=== PATIENT | female | born 1950 | race Caucasian/White ===

== ENCOUNTER 2016-05-22 11:42 | Inpatient (IN) | payer OTHER ==
[2016-05-22 11:55] VITALS: BMI 39.2
--- NOTE | 2016-05-22 12:15 | PDOC ---
History of Present Illness - History of Present Illness Initial Comments: 05/22/16 13:47 The patient is a 65 year old female with a significant past medical history of anemia, asthma, hypertension, hyperlipidemia, diabetes, CHF, CAD, Afib (on Coumadin), mitral valve replacement, stents x2, COPD, CVA (multiple TIAs), who presents to the emergency department with facial numbness since 930am. The patietn states that she got up to check her INR and she felt numbness in the right side of her head and her forehead. The patient went to her cast iron drain pipe layer today but was unable to formulate sentences and explain her symptoms to the cast iron drain pipe layer. She also states that her right eyebrow feels droopy. She denies any headaches or dizziness. She denies weakness in her lower extremities bilaterally. She denies fevers or chills. <TrumanDeysi - Last Filed: 05/22/16 13:47> - General History Source: Patient, Old Records Exam Limitations: No Limitations <Ceci Sosa - Last Filed: 05/22/16 16:37> - General Chief Complaint: Headache Stated Complaint: Headache Time Seen by Provider: 05/22/16 11:49 NIH Stroke Scale - Last Known Well Date/Time & Onset Date Last Known Well: 05/22/16 Time Last Known Well: 09:30 - Initial Evaluation Level of consciousness: Alert Ask patient the month and their age: Answers both correctly Ask patient to open & close eyes; make fist and let go: Obeys both correctly Best gaze (horizontal eye movement): Normal Visual field testing: No visual field loss Facial paresis (Show teeth/raise eyebrows/close eyes tight): Normal symmetrical movement Motor Function: Left Arm: Normal Motor Function: Right Arm: Normal (extends arm 90 (or 45) degrees for 10 seconds without drift Motor Function: Left Leg: Normal (extends leg 30 degrees for 5 seconds without drift) Motor Function: Right Leg: Normal (extends leg 30 degrees for 5 seconds without drift) Limb Ataxia: No ataxia Sensory(Use pinprick test arms,legs,trunk,face/side to side): Mild to moderate decrease in sensation Best language (Describe picture, name items, read sentences): No Aphasia Dysarthria (read several words): Normal articulation Extinction and Inattention: No abnormality - Total Score NIH Stroke Scale Score: 1 <Ceci Sosa - Last Filed: 05/22/16 16:37> Past History <Deysi Laughlin - Last Filed: 05/22/16 13:47> - Past Medical History Anemia: Yes Asthma: Yes Cardiac Disorders: Yes (mitral valve replacement, stents x2,a-fib, CAD) CVA: Yes (MULTIPLE TIAs) COPD: Yes (Yes, O2 2L-3L) CHF: Yes Diabetes: Yes GI Disorders: Yes (ulcers, GI bleed, hemorrhoids, diverticulosis) Disorders: Yes (bladder mesh) HTN: Yes Hypercholesterolemia: Yes Suicide Attempt (Hx): No Seizures: Yes Thyroid Disease: No - Surgical History Appendectomy: Yes Cardiac Surgery: Yes (stentsx2, mitral valve replacement, CABG) Cholecystectomy: Yes - Immunization History Immunization Up to Date: Yes - Psycho/Social/Smoking Cessation Hx Anxiety: No Suicidal Ideation: No Smoking Status: No Smoking History: Former smoker Have you smoked in the past 12 months: No Number of Cigarettes Smoked Daily: 0 If you are a former smoker, when did you quit?: many years Information on smoking cessation initiated: No Hx Alcohol Use: No Drug/Substance Use Hx: No Substance Use Type: None Hx Substance Use Treatment: No <Ceci Sosa - Last Filed: 05/22/16 16:37> - Past Medical History Allergies/Adverse Reactions: Allergies Allergy/AdvReac Type Severity Reaction Status Date / Time lactose Allergy Mild Verified 05/22/16 11:55 Beta-Blockers Allergy Verified 05/22/16 11:55 (Beta-Adrenergic Bloc Iodinated Contrast Media - Allergy Verified 05/22/16 11:55 Oral and [IV Dye, Iodine Containing Contrast ] shellfish derived Allergy Verified 05/22/16 11:55 Home Medications: Ambulatory Orders Albuterol 0.083% Nebulizer Brigitte [Ventolin 0.083%] 1 neb NEB QID 02/01/16 Bupropion HBr [Aplenzin] 300 mg PO DAILY 02/01/16 Carbidopa/Levodopa [Carbidopa-Levodopa 25-100 Tab] 1 each PO AC 02/01/16 Cholecalciferol (Vitamin D3) [Vitamin D3] 5,000 unit PO WEEKLY 02/01/16 Citalopram Hydrobromide [Citalopram HBr] 10 mg PO HS 02/01/16 Digoxin [Lanoxin -] 0.125 mg PO DAILY 02/01/16 Docusate Sodium [Colace -] 100 mg PO TID 02/01/16 Enoxaparin Sodium [Lovenox] 100 mg SQ BID 02/01/16 Ferrous Sulfate [Feosol] 325 mg PO DAILY 02/01/16 Fluticasone Propionate [Flonase Allergy Relief] 2 inh NS BID 02/01/16 Insulin Detemir [Levemir Flextouch] 30 units SQ DAILY 02/01/16 Insulin Sliding Scale [Novolog Vial Sliding Scale -] 0 units SQ ACHS 02/01/16 Montelukast Na [Singulair -] 10 mg PO HS 02/01/16 [place]-3 Acid Ethyl Esters [Lovaza] 1 gm PO BID 02/01/16 Omeprazole 20 mg PO DAILY 02/01/16 Oxycodone HCl 5 mg PO BID PRN 02/01/16 Polyethylene Glycol 3350 [Miralax (For Daily Use) -] 17 gm PO DAILY 02/01/16 Potassium Chloride 40 meq PO DAILY 02/01/16 Pramipexole Di-HCl [Pramipexole Dihydrochloride] 0.75 mg PO DAILY 02/01/16 Pramipexole Di-HCl [Pramipexole Dihydrochloride] 1.5 mg PO HS 02/01/16 Ranolazine [Ranexa -] 500 mg PO BID 02/01/16 Sennosides [Senna] 2 tab PO HS 02/01/16 Sodium Chloride [Saline Nasal [place]] 1 ml NS Q6H PRN 02/01/16 Topiramate [Topiramate ER] 150 mg PO BID 02/01/16 Torsemide [Demadex] 40 mg PO DAILY 02/01/16 Tramadol HCl 50 mg PO Q6H PRN 02/01/16 Verapamil HCl [Verapamil ER] 240 mg PO DAILY 02/01/16 Warfarin Na [Coumadin] 12 mg PO HS 02/01/16 Review of Systems - Review of Systems Able to Perform ROS?: Yes Comments:: 05/22/16 13:48 GENERAL/CONSTITUTIONAL: No fever or chills. No weakness. HEAD, EYES, EARS, NOSE AND THROAT: No change in vision. No ear pain or discharge. No sore throat. CARDIOVASCULAR: No chest pain or shortness of breath. RESPIRATORY: No cough, wheezing, or hemoptysis. GASTROINTESTINAL: No nausea, vomiting, diarrhea or constipation. GENITOURINARY: No dysuria, frequency, or change in urination. MUSCULOSKELETAL: No joint or muscle swelling or pain. No neck or back pain. SKIN: No rash NEUROLOGIC: +Decreased sensation. No headache, vertigo, loss of consciousness, or change in strength/sensation. ENDOCRINE: No increased thirst. No abnormal weight change. HEMATOLOGIC/LYMPHATIC: No anemia, easy bleeding, or history of blood clots. ALLERGIC/IMMUNOLOGIC: No hives or skin allergy. <Deysi Laughlin - Last Filed: 05/22/16 13:47> *Physical Exam - Vital Signs Last Vital Signs Temp Pulse Resp BP Pulse Ox 98.6 F 65 18 141/52 100 05/22/16 11:45 05/22/16 11:45 05/22/16 11:45 05/22/16 11:45 05/22/16 11:45 - Physical Exam Comments: 05/22/16 13:48 GENERAL: Awake, alert, and fully oriented, in no acute distress HEAD: No signs of trauma EYES: PERRLA, EOMI, sclera anicteric, conjunctiva clear ENT: Auricles normal inspection, hearing grossly normal, nares patent, oropharynx clear without exudates. Moist mucosa NECK: Normal ROM, supple, no lymphadenopathy, JVD, or masses LUNGS: Breath sounds equal, clear to auscultation bilaterally. No wheezes, and no crackles HEART: Regular rate and rhythm, normal S1 and S2, no murmurs, rubs or gallops ABDOMEN: Soft, nontender, normoactive bowel sounds. No guarding, no rebound. No masses EXTREMITIES: Normal range of motion, no edema. No clubbing or cyanosis. No cords, erythema, or tenderness NEUROLOGICAL: +Decreased sensation in the right forehead and right maxilla. Normal speech. SKIN: Warm, Dry, normal turgor, no rashes or lesions noted. <Deysi Laughlin - Last Filed: 05/22/16 13:47> - Vital Signs Last Vital Signs Temp Pulse Resp BP Pulse Ox 98.6 F 65 18 141/52 100 05/22/16 11:45 05/22/16 11:45 05/22/16 11:45 05/22/16 11:45 05/22/16 11:45 <Ceci Sosa - Last Filed: 05/22/16 16:37> ED Treatment Course - LABORATORY CBC & Chemistry Diagram: 05/22/16 12:00 05/22/16 12:00 - ADDITIONAL ORDERS Additional order review: Laboratory Results 05/22/16 05/22/16 12:00 12:00 INR 1.25 H D Sodium 143 Potassium 4.0 Chloride 110 H Carbon Dioxide 26 Anion Gap 7 L BUN 22 H D Creatinine 1.2 H Creat Clearance w eGFR 45.23 Random Glucose 142 H D Calcium 8.9 Total Bilirubin 0.2 D AST 12 L D ALT 8 L D Alkaline Phosphatase 113 Creatine Kinase 46 Troponin I < 0.02 Total Protein 6.9 Albumin 3.3 L Triglycerides 117 Cholesterol 154 Total LDL Cholesterol 108 H HDL Cholesterol 34 L 05/22/16 12:00 RBC 4.52 MCV 84.6 MCHC 32.3 RDW 16.5 H MPV 9.5 Neutrophils % 70.4 Lymphocytes % 18.6 Monocytes % 7.9 Eosinophils % 2.2 Basophils % 0.9 - RADIOLOGY Radiograph Interpretation: 05/22/16 13:[address]: Reviewed and interpreted by radiologist Jorge Severino MD. Impression: No evidence of acute intracranial hemorrhage, edema, midline shift, mass effect, or skull fracture. No CT evidence of acute territorial infarction. <Deysi Laughlin - Last Filed: 05/22/16 13:47> - LABORATORY CBC & Chemistry Diagram: 05/22/16 12:00 05/22/16 12:00 - RADIOLOGY Radiology Studies Ordered: Category Date Time Status HEAD CT (STROKE) [CT] Stat CT Scan 05/22/16 12:04 Taken <Ceci Sosa - Last Filed: 05/22/16 16:37> Medical Decision Making - Medical Decision Making 05/22/16 13:16 65-year-old female with history of hypertension, diabetes, multiple CVAs and TIAs in the past, mitral valve replacement and atrial fibrillationon Coumadin presents to the emergency department with numbness and tingling to the right 4 head and droopiness of the right eyelid since 9:30 this morning. NIHSS is 1. Differential diagnosis includes but is not limited to: TIA, CVA, electrolyte abnormality, mass lesion, toxic/metabolic derangement, electrolyte abnormality. Plan: 1. Code lynch/stroke notification 2. CT head 3. EKG 4. Labs 5. Neurology consult 6. Observe and reevaluate Addendum: An IHSS is 1. I discussed the case with the neurologist on-call and have determined that the patient is not a TPA candidate. We'll continue the stroke workup and admit the patient for neuro checks, carotid Dopplers and MRI as an inpatient <Ceci Sosa - Last Filed: 05/22/16 16:37> *DC/Admit/Observation/Transfer - Attestations Scribe Attestion: 05/22/16 13:48 Documentation prepared by Deysi Laughlin, acting as medical biller for Ceci Sosa MD. <Deysi Laughlin - Last Filed: 05/22/16 13:47> - Discharge Dispostion Admit: Yes - Attestations Physician Attestion: 05/22/16 13:15 I, Dr. Ceci Sosa, attest that the scribes documentation that appears above has been prepared under my direction and personally reviewed by me in its entirety. I confirmed that the note above accurately reflects all work, treatment, procedures, and medical decision-making performed by me. <Ceci Sosa - Last Filed: 05/22/16 16:37> Diagnosis at time of Disposition: TIA (transient ischemic attack) - Discharge Dispostion Condition at time of disposition: Stable - Referrals Referrals: Jose España MD [Primary Care Provider] -
[2016-05-22 12:31] LABS: BASOPHIL 0.9 % (0-2.0); EOSINOPHIL 2.2 % (0-4.5); MCH 27.3 pg (25.7-33.7); MCHC 32.3 g/dl (32.0-36.0); MEAN CELL VOLUME 84.6 fl (80-96); MEAN PLT VOLUME 9.5 fl (7.5-11.1); NEUTROPHILS 70.4 % (42.8-82.8); PLATELET COUNT 234 K/MM3 (134-434); RDW 16.5 % (11.6-15.6); WHITE BLOOD COUNT 9.4 K/mm3 (4.0-10.0)
[2016-05-22 12:51] LABS: INR 1.25 (0.82-1.09); PROTHROMBIN TIME (PATIENT) 13.8 SEC (9.98-11.88)
[2016-05-22 12:53] LABS: ALBUMIN 3.3 g/dl (3.4-5.0); ANION GAP 7 (8-16); CALCIUM 8.9 mg/dL (8.5-10.1); CHOLESTEROL 154 mg/dL (50-200); CO2 26 mmol/L (21-32); CREATININE 1.2 mg/dL (0.55-1.02); GLUCOSE,RANDOM 142 mg/dL (74-106); SGOT/AST 12 U/L (15-37); SGPT/ALT 8 U/L (12-78); TROPONIN I < 0.02 ng/ml (0.00-0.05)
[2016-05-22 12:56] LABS: ALK PHOS 113 U/L (45-117); BILIRUBIN,TOTAL 0.2 mg/dL (0.2-1.0); LDL CHOLESTEROL (ONLY SJRH) 108 mg/dL (5-100); TOT PROT 6.9 g/dl (6.4-8.2)
--- NOTE | 2016-05-22 15:00 | CONSULT ---
Consult - text type - Consultation Consultation Note: Neurology The patient is a 65 year old female with a significant past medical history of anemia, asthma, hypertension, hyperlipidemia, diabetes, CHF, CAD, Afib (on Coumadin), mitral valve replacement, stents x2, COPD, CVA (multiple TIAs), who presents to the emergency department with facial numbness since 930am. The patient states that she got up to check her INR and she felt numbness in the right side of her head and her forehead. The patient went to her molder bench today but was unable to formulate sentences and explain her symptoms to the molder bench. She also states that her right eyebrow feels droopy. I spoke to ER and patient deficits were minimal with NIHSS of 1, believed risk of bleed outweight benefits for patient with minimal symptoms. Patient was out of 3 hour window and decision was to not give TPA. Patient seen by me in ER thereafter and stable though having some respiratory complaints. - Past Medical History Anemia: Yes Asthma: Yes Cardiac Disorders: Yes (mitral valve replacement, stents x2,a-fib, CAD) CVA: Yes (MULTIPLE TIAs) COPD: Yes (Yes, O2 2L-3L) CHF: Yes Diabetes: Yes GI Disorders: Yes (ulcers, GI bleed, hemorrhoids, diverticulosis) Disorders: Yes (bladder mesh) HTN: Yes Hypercholesterolemia: Yes Suicide Attempt (Hx): No Seizures: Yes Thyroid Disease: No - Surgical History Appendectomy: Yes Cardiac Surgery: Yes (stentsx2, mitral valve replacement, CABG) Cholecystectomy: Yes - Immunization History Immunization Up to Date: Yes - Psycho/Social/Smoking Cessation Hx Anxiety: No Suicidal Ideation: No Smoking Status: No Smoking History: Former smoker Have you smoked in the past 12 months: No Number of Cigarettes Smoked Daily: 0 If you are a former smoker, when did you quit?: many years Information on smoking cessation initiated: No Hx Alcohol Use: No Drug/Substance Use Hx: No Substance Use Type: None Hx Substance Use Treatment: No - Past Medical History Allergies/Adverse Reactions: Allergies Allergy/AdvReac Type Severity Reaction Status Date / Time lactose Allergy Mild Verified 05/22/16 11:55 Beta-Blockers Allergy Verified 05/22/16 11:55 (Beta-Adrenergic Bloc Iodinated Contrast Media - Allergy Verified 05/22/16 11:55 Oral and [IV Dye, Iodine Containing Contrast ] shellfish derived Allergy Verified 05/22/16 11:55 Home Medications: Ambulatory Orders Albuterol 0.083% Nebulizer Brigitte [Ventolin 0.083%] 1 neb NEB QID 02/01/16 Bupropion HBr [Aplenzin] 300 mg PO DAILY 02/01/16 Carbidopa/Levodopa [Carbidopa-Levodopa 25-100 Tab] 1 each PO AC 02/01/16 Cholecalciferol (Vitamin D3) [Vitamin D3] 5,000 unit PO WEEKLY 02/01/16 Citalopram Hydrobromide [Citalopram HBr] 10 mg PO HS 02/01/16 Digoxin [Lanoxin -] 0.125 mg PO DAILY 02/01/16 Docusate Sodium [Colace -] 100 mg PO TID 02/01/16 Enoxaparin Sodium [Lovenox] 100 mg SQ BID 02/01/16 Ferrous Sulfate [Feosol] 325 mg PO DAILY 02/01/16 Fluticasone Propionate [Flonase Allergy Relief] 2 inh NS BID 02/01/16 Insulin Detemir [Levemir Flextouch] 30 units SQ DAILY 02/01/16 Insulin Sliding Scale [Novolog Vial Sliding Scale -] 0 units SQ ACHS 02/01/16 Montelukast Na [Singulair -] 10 mg PO HS 02/01/16 [place]-3 Acid Ethyl Esters [Lovaza] 1 gm PO BID 02/01/16 Omeprazole 20 mg PO DAILY 02/01/16 Oxycodone HCl 5 mg PO BID PRN 02/01/16 Polyethylene Glycol 3350 [Miralax (For Daily Use) -] 17 gm PO DAILY 02/01/16 Potassium Chloride 40 meq PO DAILY 02/01/16 Pramipexole Di-HCl [Pramipexole Dihydrochloride] 0.75 mg PO DAILY 02/01/16 Pramipexole Di-HCl [Pramipexole Dihydrochloride] 1.5 mg PO HS 02/01/16 Ranolazine [Ranexa -] 500 mg PO BID 02/01/16 Sennosides [Senna] 2 tab PO HS 02/01/16 Sodium Chloride [Saline Nasal [place]] 1 ml NS Q6H PRN 02/01/16 Topiramate [Topiramate ER] 150 mg PO BID 02/01/16 Torsemide [Demadex] 40 mg PO DAILY 02/01/16 Tramadol HCl 50 mg PO Q6H PRN 02/01/16 Verapamil HCl [Verapamil ER] 240 mg PO DAILY 02/01/16 Warfarin Na [Coumadin] 12 mg PO HS 02/01/16 Review of Systems GENERAL/CONSTITUTIONAL: No fever or chills. No weakness. HEAD, EYES, EARS, NOSE AND THROAT: No change in vision. No ear pain or discharge. No sore throat. CARDIOVASCULAR: No chest pain or shortness of breath. RESPIRATORY: No cough, wheezing, or hemoptysis. GASTROINTESTINAL: No nausea, vomiting, diarrhea or constipation. GENITOURINARY: No dysuria, frequency, or change in urination. MUSCULOSKELETAL: No joint or muscle swelling or pain. No neck or back pain. SKIN: No rash NEUROLOGIC: +Decreased sensation. No headache, vertigo, loss of consciousness, or change in strength/sensation. ENDOCRINE: No increased thirst. No abnormal weight change. HEMATOLOGIC/LYMPHATIC: No anemia, easy bleeding, or history of blood clots. ALLERGIC/IMMUNOLOGIC: No hives or skin allergy. *Physical Exam Last Vital Signs Temp Pulse Resp BP Pulse Ox 98.6 F 65 18 141/52 100 05/22/16 11:45 05/22/16 11:45 05/22/16 11:45 05/22/16 11:45 05/22/16 11:45 GENERAL: Awake, alert, and fully oriented, in no acute distress HEAD: No signs of trauma EYES: PERRLA, EOMI, sclera anicteric, conjunctiva clear ENT: Auricles normal inspection, hearing grossly normal, nares patent, oropharynx clear without exudates. Moist mucosa NECK: Normal ROM, supple, no lymphadenopathy, JVD, or masses LUNGS: Breath sounds equal, clear to auscultation bilaterally. No wheezes, and no crackles HEART: Regular rate and rhythm, normal S1 and S2, no murmurs, rubs or gallops ABDOMEN: Soft, nontender, normoactive bowel sounds. No guarding, no rebound. No masses EXTREMITIES: Normal range of motion, no edema. No clubbing or cyanosis. No cords, erythema, or tenderness NEUROLOGICAL: +Decreased sensation in the right forehead and right maxilla. Normal speech. SKIN: Warm, Dry, normal turgor, no rashes or lesions noted. Laboratory Results 05/22/16 05/22/16 12:00 12:00 INR 1.25 H D Sodium 143 Potassium 4.0 Chloride 110 H Carbon Dioxide 26 Anion Gap 7 L BUN 22 H D Creatinine 1.2 H Creat Clearance w eGFR 45.23 Random Glucose 142 H D Calcium 8.9 Total Bilirubin 0.2 D AST 12 L D ALT 8 L D Alkaline Phosphatase 113 Creatine Kinase 46 Troponin I < 0.02 Total Protein 6.9 Albumin 3.3 L Triglycerides 117 Cholesterol 154 Total LDL Cholesterol 108 H HDL Cholesterol 34 L 05/22/16 12:00 RBC 4.52 MCV 84.6 MCHC 32.3 RDW 16.5 H MPV 9.5 Neutrophils % 70.4 Lymphocytes % 18.6 Monocytes % 7.9 Eosinophils % 2.2 Basophils % 0.9 - RADIOLOGY Radiograph Interpretation: HEAD CT: Impression: No evidence of acute intracranial hemorrhage, edema, midline shift, mass effect, or skull fracture. No CT evidence of acute territorial infarction. Plan: 65 year old female with a significant past medical history of anemia, asthma, hypertension, hyperlipidemia, diabetes, CHF, CAD, Afib (on Coumadin), mitral valve replacement, stents x2, COPD, CVA (multiple TIAs), who presents to the emergency department with facial numbness since 930am. The patient states that she got up to check her INR and she felt numbness in the right side of her head and her forehead. The patient went to her molder bench today but was unable to formulate sentences and explain her symptoms to the molder bench. She also states that her right eyebrow feels droopy. I spoke to ER and patient deficits were minimal with NIHSS of 1, believed risk of bleed outweight benefits for patient with minimal symptoms. Patient was out of 3 hour window and decision was to not give TPA. Patient seen by me in ER thereafter and stable though having some respiratory complaints. Admit for further evaluation. MRI brain recommended, carotid doppler, echo. INR check and goal for theraputic range, if heparin required this can be pursued but NO IV Bolus. Pt/OT, continue medical mgmt.
[2016-05-22] MEDS ORDERED: SODIUM CHLORIDE NASAL SPRAY 44 ML BOTTLE NS PRN (17:44)
[2016-05-22] MEDS ORDERED: FLUTICASONE PROP 0.05% 16 GM NASAL SPRAY NS ONE (17:51)
[2016-05-22] MEDS ORDERED: WARFARIN NA 10 MG TABLET (FP) PO SCH (18:00)
[2016-05-22] MEDS ORDERED: oxyCODONE HCL 5 MG TABLET ONE (19:02)
[2016-05-22] MEDS: oxyCODONE HCL 5 MG TABLET PO PRN (19:07)
[2016-05-22] MEDS: ENOXAPARIN NA (PORCINE) 100 MG/1 ML DISP.SYRIN SQ SCH ×2 (22:28→22:39)
[2016-05-22] MEDS ORDERED: WARFARIN NA 2 MG TABLET (UD) ONE (22:33)
[2016-05-22] MEDS ORDERED: WARFARIN NA 10 MG TABLET (FP) ONE (22:34)
[2016-05-22] MEDS: buPROPion HCL 75 MG TABLET PO SCH (22:37)
[2016-05-22] MEDS: MONTELUKAST NA 10 MG TABLET PO SCH (22:37)
[2016-05-22] MEDS: SENNOSIDES 8.6MG TABLET (FP) PO SCH (22:38)
[2016-05-22] MEDS: DOCUSATE SODIUM 100 MG CAPSULE (FP) PO SCH (22:38)
[2016-05-22] MEDS: RANOLAZINE E.R. 500 MG TABLET (FP) PO SCH (22:38)
[2016-05-22] MEDS: CARBIDOPA/LEVODOPA 25/100 TABLET (FP) PO SCH (22:38)
[2016-05-22] MEDS: WARFARIN NA 10 MG, WARFARIN NA 2 MG PO SCH (22:38)
[2016-05-22] MEDS: INSULIN DETEMIR 100 UNITS/ML MDV SQ SCH (22:39)
[2016-05-22] MEDS: INSULIN SLIDING SCALE (NOVOLOG) 1 VIAL SQ SCH (22:40)
[2016-05-22] MEDS ORDERED: TOPIRAMATE 25 MG TABLET (FP) PO ONE (23:45)
[2016-05-22] MEDS: PRAMIPEXOLE DIHYDROCHLORIDE 1.5 MG TABLET PO SCH (23:59)
[2016-05-22] MEDS: PREGABALIN 100 MG CAPSULE PO SCH (23:59)
[2016-05-23] MEDS: ALBUTEROL SO4 2.5/IPRATROPIUM 0.5 INH SOL 3 ML VIAL.NEB. NEB PRN ×2 (06:03→18:40)
[2016-05-23] MEDS: INSULIN SLIDING SCALE (NOVOLOG) 1 VIAL SQ SCH ×4 (06:14→22:23)
[2016-05-23] MEDS: CARBIDOPA/LEVODOPA 25/100 TABLET (FP) PO SCH ×3 (06:18→22:22)
--- NOTE | 2016-05-23 08:24 | HP ---
Admitting History and Physical - Admission History of Present Illness: 65 year old female with a significant past medical history of anemia, asthma, hypertension, hyperlipidemia, diabetes, CHF, CAD, Afib (on Coumadin), mitral valve replacement, stents x2, COPD, CVA (multiple TIAs), who presents to the emergency department with facial numbness since 930am yesterday The patient states that she got up to check her INR and she felt numbness in the right side of her head and her forehead. The patient went to her geodetic surveyor technologist but was unable to formulate sentences and explain her symptoms to the geodetic surveyor technologist. She also states that her right eyebrow feels droopy. She c/o headaches . She denies weakness in her lower extremities bilaterally. She denies fevers or chills. 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, Migraine, Other (light-headedness and dizziness) Cardiovascular: Yes: AFIB, CAD, CHF, HTN, Hyperlipdemia, Other (S/P [facility] mitral valve replacement) Pulmonary: Yes: Asthma, COPD, Sleep Apnea (on CPAP at night) Gastrointestinal: Yes: Constipation, Diverticulosis, GI Bleed, Hemorrhoids Heme/Onc: Yes: Anemia Musculoskeletal: Yes: Chronic low back pain, Other (Spinal stenosis) Rheumatology: Yes: Lupus, Other (APLAS (BOTH LUPUS AND APLS ARE QUESTIONABLE)) Endocrine: Yes: Diabetes Mellitus - Past Surgical History Past Surgical History: Yes: CABG, Cholecystectomy, Hysterectomy, Oopherectomy - Smoking History Smoking history: Former smoker Have you smoked in the past 12 months: No Aproximately how many cigarettes per day: 0 If you are a former smoker, when did you quit?: many years - Alcohol/Substance Use Hx Alcohol Use: No History of Substance Use: reports: None - Social History ADL: Independent Home Medications - Allergies Allergies/Adverse Reactions: Allergies Allergy/AdvReac Type Severity Reaction Status Date / Time lactose Allergy Mild Verified 05/22/16 11:55 Beta-Blockers Allergy Verified 05/22/16 11:55 (Beta-Adrenergic Bloc Iodinated Contrast Media - Allergy Verified 05/22/16 11:55 Oral and [IV Dye, Iodine Containing Contrast ] shellfish derived Allergy Verified 05/22/16 11:55 - Home Medications Home Medications: Ambulatory Orders Albuterol 0.083% Nebulizer Brigitte [Ventolin 0.083%] 1 neb NEB QID 02/01/16 Bupropion HBr [Aplenzin] 300 mg PO DAILY 02/01/16 Carbidopa/Levodopa [Carbidopa-Levodopa 25-100 Tab] 1 each PO AC 02/01/16 Cholecalciferol (Vitamin D3) [Vitamin D3] 5,000 unit PO WEEKLY 02/01/16 Citalopram Hydrobromide [Citalopram HBr] 10 mg PO HS 02/01/16 Digoxin [Lanoxin -] 0.125 mg PO DAILY 02/01/16 Docusate Sodium [Colace -] 100 mg PO TID 02/01/16 Enoxaparin Sodium [Lovenox] 100 mg SQ BID 02/01/16 Ferrous Sulfate [Feosol] 325 mg PO DAILY 02/01/16 Fluticasone Propionate [Flonase Allergy Relief] 2 inh NS BID 02/01/16 Insulin Detemir [Levemir Flextouch] 30 units SQ DAILY 02/01/16 Insulin Sliding Scale [Novolog Vial Sliding Scale -] 0 units SQ ACHS 02/01/16 Montelukast Na [Singulair -] 10 mg PO HS 02/01/16 [place]-3 Acid Ethyl Esters [Lovaza] 1 gm PO BID 02/01/16 Omeprazole 20 mg PO DAILY 02/01/16 Oxycodone HCl 5 mg PO BID PRN 02/01/16 Polyethylene Glycol 3350 [Miralax (For Daily Use) -] 17 gm PO DAILY 02/01/16 Potassium Chloride 40 meq PO DAILY 02/01/16 Pramipexole Di-HCl [Pramipexole Dihydrochloride] 0.75 mg PO DAILY 02/01/16 Pramipexole Di-HCl [Pramipexole Dihydrochloride] 1.5 mg PO HS 02/01/16 Ranolazine [Ranexa -] 500 mg PO BID 02/01/16 Sennosides [Senna] 2 tab PO HS 02/01/16 Sodium Chloride [Saline Nasal [place]] 1 ml NS Q6H PRN 02/01/16 Topiramate [Topiramate ER] 150 mg PO BID 02/01/16 Torsemide [Demadex] 40 mg PO DAILY 02/01/16 Tramadol HCl 50 mg PO Q6H PRN 02/01/16 Verapamil HCl [Verapamil ER] 240 mg PO DAILY 02/01/16 Warfarin Na [Coumadin] 12 mg PO HS 02/01/16 Family Disease History - Family Disease History Family Disease History: Diabetes: Grandparent, Mother, Heart Disease: Father, Other: Sister (Lupus) Review of Systems - Review of Systems Constitutional: denies: Fever, Lethargy Cardiovascular: reports: Chest Pain (intermittent seen by cardio as oupatient and had nuclear stress) Respiratory: reports: SOB on Exertion. denies: Orthopnea Gastrointestinal: denies: Abdominal Pain Genitourinary: denies: Burning Musculoskeletal: reports: Back Pain, Joint Pain Neurological: reports: Change in Speech, Confusion, Headache, Numbness Physical Examination Vital Signs: Vital Signs Temperature 98.2 F 05/23/16 06:00 Pulse Rate 53 L 05/23/16 06:00 Respiratory Rate 20 05/23/16 06:00 Blood Pressure 110/59 05/23/16 06:00 O2 Sat by Pulse Oximetry (%) 95 05/23/16 01:35 Cardiovascular: Yes: Murmur, S1, S2 Respiratory: Yes: Regular, CTA Bilaterally Gastrointestinal: Yes: Normal Bowel Sounds, Soft Neurological: Yes: Alert, Oriented, Paresthesia. No: Dysarthria, Facial Droop, Lethargy Imaging - Results Cat Scan: Report Reviewed Problem List - Problems (1) TIA (transient ischemic attack) Assessment/Plan: R/O CVA --R/O ANEURYSM MRI/MRA INR SUB-THERAPEUTIC ON LOVENOX Code(s): G45.9 - TRANSIENT CEREBRAL ISCHEMIC ATTACK, UNSPECIFIED (2) CHF (congestive heart failure) Assessment/Plan: CONTINUE WITH DIURETICS Code(s): I50.9 - HEART FAILURE, UNSPECIFIED (3) COPD (chronic obstructive pulmonary disease) Assessment/Plan: NEBS Code(s): J44.9 - CHRONIC OBSTRUCTIVE PULMONARY DISEASE, UNSPECIFIED (4) Diabetes Assessment/Plan: BGM Code(s): E11.9 - TYPE 2 DIABETES MELLITUS WITHOUT COMPLICATIONS Qualifiers: Diabetes mellitus type: type 2 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
[2016-05-23] MEDS ORDERED: PT OWN MED DRAWER 7, Y5N ONE ×2 (08:49→22:10)
[2016-05-23] MEDS: DIGOXIN 0.125 MG TABLET (FP) PO SCH (10:42)
[2016-05-23] MEDS: traMADol HCL 50 MG TABLET PO PRN (10:43)
[2016-05-23] MEDS: RANOLAZINE E.R. 500 MG TABLET (FP) PO SCH ×2 (10:43→22:22)
[2016-05-23] MEDS: ENOXAPARIN NA (PORCINE) 100 MG/1 ML DISP.SYRIN SQ SCH ×2 (10:44→22:20)
[2016-05-23] MEDS: CITALOPRAM HYDROBROMIDE 10 MG TABLET (FP) PO SCH (10:44)
[2016-05-23] MEDS: TORSEMIDE 20 MG TABLET (FP) PO SCH (10:44)
[2016-05-23] MEDS: PANTOPRAZOLE 40 MG TABLET (FP) PO SCH (10:44)
[2016-05-23] MEDS: buPROPion HCL 75 MG TABLET PO SCH ×2 (10:44→22:22)
[2016-05-23] MEDS: PREGABALIN 100 MG CAPSULE PO SCH ×2 (10:44→22:22)
[2016-05-23] MEDS: POTASSIUM CHLORIDE TABS 20 MEQ TABLET.ER (FP) PO SCH (10:44)
[2016-05-23] MEDS: FERROUS SO4 325 MG TABLET (FP) PO SCH (10:45)
[2016-05-23] MEDS: POLYETHYLENE GLYCOL 3350 119 GM BTL PO SCH (10:46)
--- NOTE | 2016-05-23 11:02 | EKG ---
Test Reason : Blood Pressure : / mmHG Vent. Rate : 064 BPM Atrial Rate : 064 BPM P-R Int : 170 ms QRS Dur : 090 ms QT Int : 386 ms P-R-T Axes : 027 046 -08 degrees QTc Int : 398 ms NORMAL SINUS RHYTHM RSR' OR QR PATTERN IN V1 SUGGESTS RIGHT VENTRICULAR CONDUCTION DELAY NONSPECIFIC T WAVE ABNORMALITY ABNORMAL ECG WHEN COMPARED WITH ECG OF 14-DEC-2015 11:44, NO SIGNIFICANT CHANGE WAS FOUND Confirmed by RIOS ALVARADO MD ([id number]) on 05/23/2016 11:02:31 AM Referred By: Confirmed By:RIOS ALVARADO MD
--- NOTE | 2016-05-23 13:11 | PN ---
Progress Note (short form) - Note Progress Note: Neurology The patient is a 65 year old female with a significant past medical history of anemia, asthma, hypertension, hyperlipidemia, diabetes, CHF, CAD, Afib (on Coumadin), mitral valve replacement, stents x2, COPD, CVA (multiple TIAs), who presents to the emergency department with facial numbness since 930am. The patient states that she got up to check her INR and she felt numbness in the right side of her head and her forehead. NIHSS of 1, believed risk of bleed outweight benefits for patient with minimal symptoms. Patient was out of 3 hour window and decision was to not give TPA. MRI completed overnight and no acute changes with old R parietal and L occipital hemoragic lacune. Active Medications Acetaminophen (Tylenol -) 650 mg PO Q6H PRN PRN Reason: FEVER OR PAIN Albuterol/Ipratropium (Duoneb -) 1 amp NEB Q6H PRN PRN Reason: SHORTNESS OF BREATH Last Admin: 05/23/16 06:03 Dose: 1 amp Bupropion HCl (Wellbutrin -) 75 mg PO BID [facility] Last Admin: 05/23/16 10:44 Dose: 75 mg Carbidopa/Levodopa (Sinemet 25/100 -) 1 each PO TID [facility] Last Admin: 05/23/16 06:18 Dose: 1 each Citalopram Hydrobromide (Celexa -) 10 mg PO DAILY [facility] Last Admin: 05/23/16 10:44 Dose: 10 mg Digoxin (Lanoxin -) 0.125 mg PO DAILY [facility] Last Admin: 05/23/16 10:42 Dose: Not Given Docusate Sodium (Colace -) 300 mg PO HS [facility] Last Admin: 05/22/16 22:38 Dose: 300 mg Enoxaparin Sodium (Lovenox -) 100 mg SQ BID [facility] Last Admin: 05/23/16 10:44 Dose: 100 mg Ferrous Sulfate (Feosol -) 325 mg PO DAILY [facility] Last Admin: 05/23/16 10:45 Dose: 325 mg Insulin Aspart (Novolog Vial Sliding Scale -) 1 vial SQ [facility] PRN Reason: Protocol Last Admin: 05/23/16 10:59 Dose: Not Given Insulin Detemir (Levemir Vial) 30 units SQ [facility] Last Admin: 05/22/16 22:39 Dose: 30 units Montelukast Sodium (Singulair -) 10 mg PO HS [facility] Last Admin: 05/22/16 22:37 Dose: 10 mg Oxycodone HCl (Roxicodone -) 5 mg PO Q6H PRN PRN Reason: PAIN Last Admin: 05/22/16 19:07 Dose: 5 mg Pantoprazole Sodium (Protonix -) 40 mg PO DAILY [facility] Last Admin: 05/23/16 10:44 Dose: 40 mg Polyethylene Glycol (Miralax (For Daily Use) -) 17 gm PO DAILY [facility] Last Admin: 05/23/16 10:46 Dose: 17 grams Potassium Chloride (K-Dur -) 40 meq PO DAILY [facility] Last Admin: 05/23/16 10:44 Dose: 40 meq Pramipexole Dihydrochloride (Mirapex -) 1.5 mg PO HS [facility] Last Admin: 05/22/16 23:59 Dose: 1.5 mg Pregabalin (Lyrica -) 100 mg PO BID [facility] Last Admin: 05/23/16 10:44 Dose: 100 mg Ranolazine (Ranexa -) 500 mg PO BID [facility] Last Admin: 05/23/16 10:43 Dose: 500 mg Senna (Senna -) 1 tab PO HS [facility] Last Admin: 05/22/16 22:38 Dose: 1 tab Sodium Chloride ([place] Nasal [place] -) 2 spray NS BID PRN PRN Reason: NASAL CONGESTION Topiramate (Topamax -) 25 mg PO DAILY [facility] Torsemide (Demadex -) 40 mg PO DAILY [facility] Last Admin: 05/23/16 10:44 Dose: 40 mg Tramadol HCl (Ultram -) 50 mg PO Q6H PRN PRN Reason: PAIN Last Admin: 05/23/16 10:43 Dose: 50 mg Verapamil HCl (Calan Sr -) 240 mg PO DAILY [facility] Warfarin Sodium 10 mg/ (Warfarin Sodium 2 mg) 12 mg PO DAILY@1800 [facility] Last Admin: 05/22/16 22:38 Dose: 12 mg *Physical Exam Vital Signs Temperature 98.9 F 05/23/16 10:41 Pulse Rate 57 L 05/23/16 10:42 Respiratory Rate 18 05/23/16 10:41 Blood Pressure 129/45 05/23/16 10:41 O2 Sat by Pulse Oximetry (%) 95 05/23/16 01:35 GENERAL: Awake, alert, and fully oriented, in no acute distress HEAD: No signs of trauma EYES: PERRLA, EOMI, sclera anicteric, conjunctiva clear ENT: Auricles normal inspection, hearing grossly normal, nares patent, oropharynx clear without exudates. Moist mucosa NECK: Normal ROM, supple, no lymphadenopathy, JVD, or masses LUNGS: Breath sounds equal, clear to auscultation bilaterally. No wheezes, and no crackles HEART: Regular rate and rhythm, normal S1 and S2, no murmurs, rubs or gallops ABDOMEN: Soft, nontender, normoactive bowel sounds. No guarding, no rebound. No masses EXTREMITIES: Normal range of motion, no edema. No clubbing or cyanosis. No cords, erythema, or tenderness NEUROLOGICAL: +Decreased sensation in the right forehead and right maxilla. Normal speech. SKIN: Warm, Dry, normal turgor, no rashes or lesions noted. Laboratory Results 05/22/16 05/22/16 12:00 12:00 INR 1.25 H D Sodium 143 Potassium 4.0 Chloride 110 H Carbon Dioxide 26 Anion Gap 7 L BUN 22 H D Creatinine 1.2 H Creat Clearance w eGFR 45.23 Random Glucose 142 H D Calcium 8.9 Total Bilirubin 0.2 D AST 12 L D ALT 8 L D Alkaline Phosphatase 113 Creatine Kinase 46 Troponin I < 0.02 Total Protein 6.9 Albumin 3.3 L Triglycerides 117 Cholesterol 154 Total LDL Cholesterol 108 H HDL Cholesterol 34 L 05/22/16 12:00 RBC 4.52 MCV 84.6 MCHC 32.3 RDW 16.5 H MPV 9.5 Neutrophils % 70.4 Lymphocytes % 18.6 Monocytes % 7.9 Eosinophils % 2.2 Basophils % 0.9 - RADIOLOGY Radiograph Interpretation: HEAD CT: Impression: No evidence of acute intracranial hemorrhage, edema, midline shift, mass effect, or skull fracture. No CT evidence of acute territorial infarction. MRI brain without acute changes Plan: 65 year old female with a significant past medical history of anemia, asthma, hypertension, hyperlipidemia, diabetes, CHF, CAD, Afib (on Coumadin), mitral valve replacement, stents x2, COPD, CVA (multiple TIAs), who presents to the emergency department with facial numbness since 930am. The patient states that she got up to check her INR and she felt numbness in the right side of her head and her forehead. NIHSS of 1, believed risk of bleed outweight benefits for patient with minimal symptoms. Patient was out of 3 hour window and decision was to not give TPA. MRI completed overnight and no acute changes with old R parietal and L occipital hemoragic lacune. INR check and goal for theraputic range, if heparin required this can be pursued but NO IV Bolus. Pt/OT, continue medical mgmt. Patient well appearing today with occasional tingling but no focal deficits.
[2016-05-23] MEDS: VERAPAMIL HCL 240 MG E.R. TABLET (FP) PO SCH (14:03)
[2016-05-23] MEDS: TOPIRAMATE 25 MG TABLET (FP) PO SCH (14:03)
[2016-05-23] MEDS ORDERED: WARFARIN NA 2 MG TABLET (UD) ONE (18:55)
[2016-05-23] MEDS ORDERED: WARFARIN NA 10 MG TABLET (FP) ONE (18:55)
[2016-05-23] MEDS: WARFARIN NA 10 MG, WARFARIN NA 2 MG PO SCH (18:56)
[2016-05-23 19:25] LABS: INR 1.47 (0.82-1.09); PROTHROMBIN TIME (PATIENT) 16.3 SEC (9.98-11.88)
[2016-05-23] MEDS: INSULIN DETEMIR 100 UNITS/ML MDV SQ SCH (22:20)
[2016-05-23] MEDS: MONTELUKAST NA 10 MG TABLET PO SCH (22:22)
[2016-05-23] MEDS: SENNOSIDES 8.6MG TABLET (FP) PO SCH (22:22)
[2016-05-23] MEDS: PRAMIPEXOLE DIHYDROCHLORIDE 1.5 MG TABLET PO SCH (22:22)
[2016-05-23] MEDS: DOCUSATE SODIUM 100 MG CAPSULE (FP) PO SCH (22:22)
[2016-05-24] MEDS: ALBUTEROL SO4 2.5/IPRATROPIUM 0.5 INH SOL 3 ML VIAL.NEB. NEB PRN ×3 (03:05→22:55)
[2016-05-24] MEDS: oxyCODONE HCL 5 MG TABLET PO PRN (06:47)
[2016-05-24] MEDS: CARBIDOPA/LEVODOPA 25/100 TABLET (FP) PO SCH ×3 (06:47→22:30)
[2016-05-24 09:06] LABS: INR 1.72 (0.82-1.09); PROTHROMBIN TIME (PATIENT) 19.1 SEC (9.98-11.88)
--- NOTE | 2016-05-24 09:15 | PN ---
Progress Note, Physician History of Present Illness: numbness of head - Current Medication List Current Medications: Active Medications Acetaminophen (Tylenol -) 650 mg PO Q6H PRN PRN Reason: FEVER OR PAIN Albuterol/Ipratropium (Duoneb -) 1 amp NEB Q6H PRN PRN Reason: SHORTNESS OF BREATH Last Admin: 05/24/16 03:05 Dose: 1 amp Bupropion HCl (Wellbutrin -) 75 mg PO BID [facility] Last Admin: 05/23/16 22:22 Dose: 75 mg Carbidopa/Levodopa (Sinemet 25/100 -) 1 each PO TID [facility] Last Admin: 05/24/16 06:47 Dose: 1 each Citalopram Hydrobromide (Celexa -) 10 mg PO DAILY [facility] Last Admin: 05/23/16 10:44 Dose: 10 mg Digoxin (Lanoxin -) 0.125 mg PO DAILY [facility] Last Admin: 05/23/16 10:42 Dose: Not Given Docusate Sodium (Colace -) 300 mg PO [facility] Last Admin: 05/23/16 22:22 Dose: 300 mg Enoxaparin Sodium (Lovenox -) 100 mg SQ BID [facility] Last Admin: 05/23/16 22:20 Dose: 100 mg Ferrous Sulfate (Feosol -) 325 mg PO DAILY [facility] Last Admin: 05/23/16 10:45 Dose: 325 mg Insulin Aspart (Novolog Vial Sliding Scale -) 1 vial SQ [facility] PRN Reason: Protocol Last Admin: 05/23/16 22:23 Dose: Not Given Insulin Detemir (Levemir Vial) 30 units SQ [facility] Last Admin: 05/23/16 22:20 Dose: 30 units Montelukast Sodium (Singulair -) 10 mg PO [facility] Last Admin: 05/23/16 22:22 Dose: 10 mg Oxycodone HCl (Roxicodone -) 5 mg PO Q6H PRN PRN Reason: PAIN Last Admin: 05/24/16 06:47 Dose: 5 mg Pantoprazole Sodium (Protonix -) 40 mg PO DAILY [facility] Last Admin: 05/23/16 10:44 Dose: 40 mg Polyethylene Glycol (Miralax (For Daily Use) -) 17 gm PO DAILY [facility] Last Admin: 05/23/16 10:46 Dose: 17 grams Potassium Chloride (K-Dur -) 40 meq PO DAILY [facility] Last Admin: 05/23/16 10:44 Dose: 40 meq Pramipexole Dihydrochloride (Mirapex -) 1.5 mg PO HS [facility] Last Admin: 05/23/16 22:22 Dose: 1.5 mg Pregabalin (Lyrica -) 100 mg PO BID [facility] Last Admin: 05/23/16 22:22 Dose: 100 mg Ranolazine (Ranexa -) 500 mg PO BID [facility] Last Admin: 05/23/16 22:22 Dose: 500 mg Senna (Senna -) 1 tab PO HS [facility] Last Admin: 05/23/16 22:22 Dose: 1 tab Sodium Chloride ([place] Nasal [place] -) 2 spray NS BID PRN PRN Reason: NASAL CONGESTION Topiramate (Topamax -) 25 mg PO DAILY [facility] Last Admin: 05/23/16 14:03 Dose: 25 mg Torsemide (Demadex -) 40 mg PO DAILY [facility] Last Admin: 05/23/16 10:44 Dose: 40 mg Tramadol HCl (Ultram -) 50 mg PO Q6H PRN PRN Reason: PAIN Last Admin: 05/23/16 10:43 Dose: 50 mg Verapamil HCl (Calan Sr -) 240 mg PO DAILY [facility] Last Admin: 05/23/16 14:03 Dose: 240 mg Warfarin Sodium 10 mg/ (Warfarin Sodium 2 mg) 12 mg PO DAILY@1800 [facility] Last Admin: 05/23/16 18:56 Dose: 12 mg - Objective Vital Signs: Vital Signs Temperature 98.2 F 05/24/16 06:00 Pulse Rate 57 L 05/24/16 06:00 Respiratory Rate 20 05/24/16 06:00 Blood Pressure 136/60 05/24/16 06:00 O2 Sat by Pulse Oximetry (%) 95 05/23/16 01:35 Cardiovascular: Yes: Murmur, S1, S2 Respiratory: Yes: Regular, CTA Bilaterally Gastrointestinal: Yes: Normal Bowel Sounds, Soft Labs: INR, PTT INR 1.72 (0.82-1.09) H 05/24/16 07:40 Problem List - Problems (1) TIA (transient ischemic attack) Assessment/Plan: R/O CVA --R/O ANEURYSM MRI/MRA--nNAD INR SUB-THERAPEUTIC ON LOVENOX TO [facility] Code(s): G45.9 - TRANSIENT CEREBRAL ISCHEMIC ATTACK, UNSPECIFIED (2) CHF (congestive heart failure) Assessment/Plan: CONTINUE WITH DIURETICS Code(s): I50.9 - HEART FAILURE, UNSPECIFIED (3) COPD (chronic obstructive pulmonary disease) Assessment/Plan: NEBS Code(s): J44.9 - CHRONIC OBSTRUCTIVE PULMONARY DISEASE, UNSPECIFIED (4) Diabetes Assessment/Plan: BGM Code(s): E11.9 - TYPE 2 DIABETES MELLITUS WITHOUT COMPLICATIONS Qualifiers: Diabetes mellitus type: type 2 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
[2016-05-24] MEDS ORDERED: PT OWN MED DRAWER 7, Y5N ONE (09:18)
[2016-05-24] MEDS: VERAPAMIL HCL 240 MG E.R. TABLET (FP) PO SCH (09:43)
[2016-05-24] MEDS: CITALOPRAM HYDROBROMIDE 10 MG TABLET (FP) PO SCH (09:44)
[2016-05-24] MEDS: TORSEMIDE 20 MG TABLET (FP) PO SCH (09:44)
[2016-05-24] MEDS: POTASSIUM CHLORIDE TABS 20 MEQ TABLET.ER (FP) PO SCH (09:45)
[2016-05-24] MEDS: FERROUS SO4 325 MG TABLET (FP) PO SCH (09:45)
[2016-05-24] MEDS: DIGOXIN 0.125 MG TABLET (FP) PO SCH (09:46)
[2016-05-24] MEDS: ENOXAPARIN NA (PORCINE) 100 MG/1 ML DISP.SYRIN SQ SCH ×2 (09:46→22:29)
[2016-05-24] MEDS: PANTOPRAZOLE 40 MG TABLET (FP) PO SCH (09:47)
[2016-05-24] MEDS: PREGABALIN 100 MG CAPSULE PO SCH ×2 (09:47→22:30)
[2016-05-24] MEDS: buPROPion HCL 75 MG TABLET PO SCH ×2 (09:48→22:30)
[2016-05-24] MEDS: RANOLAZINE E.R. 500 MG TABLET (FP) PO SCH ×2 (09:48→22:30)
[2016-05-24] MEDS: TOPIRAMATE 25 MG TABLET (FP) PO SCH (09:50)
[2016-05-24] MEDS: POLYETHYLENE GLYCOL 3350 119 GM BTL PO SCH (09:52)
--- NOTE | 2016-05-24 11:18 | PN ---
Progress Note (short form) - Note Progress Note: Neurology The patient is a 65 year old female with a significant past medical history of anemia, asthma, hypertension, hyperlipidemia, diabetes, CHF, CAD, Afib (on Coumadin), mitral valve replacement, stents x2, COPD, CVA (multiple TIAs), who presents to the emergency department with facial numbness since 930am. The patient states that she got up to check her INR and she felt numbness in the right side of her head and her forehead. NIHSS of 1, believed risk of bleed outweight benefits for patient with minimal symptoms. Patient was out of 3 hour window and decision was to not give TPA. MRI completed and no acute changes with old R parietal and L occipital hemoragic lacune. INR subtheraputic and awaiting theraputic level. Active Medications Acetaminophen (Tylenol -) 650 mg PO Q6H PRN PRN Reason: FEVER OR PAIN Albuterol/Ipratropium (Duoneb -) 1 amp NEB Q6H PRN PRN Reason: SHORTNESS OF BREATH Last Admin: 05/23/16 06:03 Dose: 1 amp Bupropion HCl (Wellbutrin -) 75 mg PO BID [facility] Last Admin: 05/23/16 10:44 Dose: 75 mg Carbidopa/Levodopa (Sinemet 25/100 -) 1 each PO TID [facility] Last Admin: 05/23/16 06:18 Dose: 1 each Citalopram Hydrobromide (Celexa -) 10 mg PO DAILY [facility] Last Admin: 05/23/16 10:44 Dose: 10 mg Digoxin (Lanoxin -) 0.125 mg PO DAILY [facility] Last Admin: 05/23/16 10:42 Dose: Not Given Docusate Sodium (Colace -) 300 mg PO HS [facility] Last Admin: 05/22/16 22:38 Dose: 300 mg Enoxaparin Sodium (Lovenox -) 100 mg SQ BID [facility] Last Admin: 05/23/16 10:44 Dose: 100 mg Ferrous Sulfate (Feosol -) 325 mg PO DAILY [facility] Last Admin: 05/23/16 10:45 Dose: 325 mg Insulin Aspart (Novolog Vial Sliding Scale -) 1 vial SQ [facility] PRN Reason: Protocol Last Admin: 05/23/16 10:59 Dose: Not Given Insulin Detemir (Levemir Vial) 30 units SQ [facility] Last Admin: 05/22/16 22:39 Dose: 30 units Montelukast Sodium (Singulair -) 10 mg PO HS [facility] Last Admin: 05/22/16 22:37 Dose: 10 mg Oxycodone HCl (Roxicodone -) 5 mg PO Q6H PRN PRN Reason: PAIN Last Admin: 05/22/16 19:07 Dose: 5 mg Pantoprazole Sodium (Protonix -) 40 mg PO DAILY [facility] Last Admin: 05/23/16 10:44 Dose: 40 mg Polyethylene Glycol (Miralax (For Daily Use) -) 17 gm PO DAILY [facility] Last Admin: 05/23/16 10:46 Dose: 17 grams Potassium Chloride (K-Dur -) 40 meq PO DAILY [facility] Last Admin: 05/23/16 10:44 Dose: 40 meq Pramipexole Dihydrochloride (Mirapex -) 1.5 mg PO HS [facility] Last Admin: 05/22/16 23:59 Dose: 1.5 mg Pregabalin (Lyrica -) 100 mg PO BID [facility] Last Admin: 05/23/16 10:44 Dose: 100 mg Ranolazine (Ranexa -) 500 mg PO BID [facility] Last Admin: 05/23/16 10:43 Dose: 500 mg Senna (Senna -) 1 tab PO [facility] Last Admin: 05/22/16 22:38 Dose: 1 tab Sodium Chloride ([place]al [place] -) 2 spray NS BID PRN PRN Reason: NASAL CONGESTION Topiramate (Topamax -) 25 mg PO DAILY [facility] Torsemide (Demadex -) 40 mg PO DAILY [facility] Last Admin: 05/23/16 10:44 Dose: 40 mg Tramadol HCl (Ultram -) 50 mg PO Q6H PRN PRN Reason: PAIN Last Admin: 05/23/16 10:43 Dose: 50 mg Verapamil HCl (Calan Sr -) 240 mg PO DAILY [facility] Warfarin Sodium 10 mg/ (Warfarin Sodium 2 mg) 12 mg PO DAILY@1800 [facility] Last Admin: 05/22/16 22:38 Dose: 12 mg *Physical Exam Vital Signs Temperature 97.8 F 05/24/16 07:00 Pulse Rate 73 05/24/16 09:55 Respiratory Rate 20 05/24/16 06:00 Blood Pressure 124/56 05/24/16 07:00 O2 Sat by Pulse Oximetry (%) 96 05/24/16 09:55 GENERAL: Awake, alert, and fully oriented, in no acute distress HEAD: No signs of trauma EYES: PERRLA, EOMI, sclera anicteric, conjunctiva clear ENT: Auricles normal inspection, hearing grossly normal, nares patent, oropharynx clear without exudates. Moist mucosa NECK: Normal ROM, supple, no lymphadenopathy, JVD, or masses LUNGS: Breath sounds equal, clear to auscultation bilaterally. No wheezes, and no crackles HEART: Regular rate and rhythm, normal S1 and S2, no murmurs, rubs or gallops ABDOMEN: Soft, nontender, normoactive bowel sounds. No guarding, no rebound. No masses EXTREMITIES: Normal range of motion, no edema. No clubbing or cyanosis. No cords, erythema, or tenderness NEUROLOGICAL: +Decreased sensation in the right forehead and right maxilla. Normal speech. SKIN: Warm, Dry, normal turgor, no rashes or lesions noted. Laboratory Results 05/22/16 05/22/16 12:00 12:00 INR 1.25 H D Sodium 143 Potassium 4.0 Chloride 110 H Carbon Dioxide 26 Anion Gap 7 L BUN 22 H D Creatinine 1.2 H Creat Clearance w eGFR 45.23 Random Glucose 142 H D Calcium 8.9 Total Bilirubin 0.2 D AST 12 L D ALT 8 L D Alkaline Phosphatase 113 Creatine Kinase 46 Troponin I < 0.02 Total Protein 6.9 Albumin 3.3 L Triglycerides 117 Cholesterol 154 Total LDL Cholesterol 108 H HDL Cholesterol 34 L 05/22/16 12:00 RBC 4.52 MCV 84.6 MCHC 32.3 RDW 16.5 H MPV 9.5 Neutrophils % 70.4 Lymphocytes % 18.6 Monocytes % 7.9 Eosinophils % 2.2 Basophils % 0.9 - RADIOLOGY Radiograph Interpretation: HEAD CT: Impression: No evidence of acute intracranial hemorrhage, edema, midline shift, mass effect, or skull fracture. No CT evidence of acute territorial infarction. MRI brain without acute changes Plan: 65 year old female with a significant past medical history of anemia, asthma, hypertension, hyperlipidemia, diabetes, CHF, CAD, Afib (on Coumadin), mitral valve replacement, stents x2, COPD, CVA (multiple TIAs), who presents to the emergency department with facial numbness since 930am. The patient states that she got up to check her INR and she felt numbness in the right side of her head and her forehead. NIHSS of 1, believed risk of bleed outweight benefits for patient with minimal symptoms. Patient was out of 3 hour window and decision was to not give TPA. MRI completed and no acute changes with old R parietal and L occipital hemoragic lacune. INR subtheraputic and awaiting theraputic level. Pt/OT, continue medical mgmt. Patient well appearing today with occasional tingling but no focal deficits.
[2016-05-24] MEDS: ACETAMINOPHEN 325 MG TABLET (FP) PO PRN ×2 (11:20→22:33)
--- NOTE | 2016-05-24 11:20 | CON.CARD ---
Cardiology Consult (text) - Consultation Consultation Note: cc: right face numbness hpi: 65 year old lady with past medical history of COPD on home 02, FIGUEROA (on cpap at home), CAD (s/p single vessel CABG 2006 with RUSSELL to OM and ROSALINA x2 to LAD 12/2011; last cath 06/2014 showed patent RUSSELL, patent LAD stents, no sig residual dz except for 80-90% OM that is bypassed), mech mvr ([facility], 2006, on coumadin), anemia, TIA, dCHF, DM, HTN, pafib, antiphospholipid syndrome (on coumadin), fibromyalgia, migraines, chronic atypical cp, obesity, LBP here with right face numbness. On sunday pt noticed numbness on right side of face/head with some sagging of eyebrow and possible slurred speech so came to ER. No angina, sob, palps, dizzy, loc, pnd, orthopnea, le edema. Evaluated by neuro, no acute findings. Sees me for cardio. pmh: per hpi psh: cabg, cholecystectomy, mvr, hysterectomy social: ex tob fam hx: no premature cad or scd ros: per hpi; no fever, nvd, vision changes, rash, cough, nasal congestion, gib , hematuria, wt loss meds: Home Medications Medication Instructions Recorded Albuterol 0.083% Nebulizer Brigitte 1 neb NEB QID 02/01/16 [Ventolin 0.083%] Bupropion HBr [Aplenzin] 300 mg PO DAILY 02/01/16 Carbidopa/Levodopa 1 each PO AC 02/01/16 [Carbidopa-Levodopa 25-100 Tab] Cholecalciferol (Vitamin D3) 5,000 unit PO WEEKLY 02/01/16 [Vitamin D3] Citalopram Hydrobromide 10 mg PO HS 02/01/16 [Citalopram HBr] Digoxin [Lanoxin -] 0.125 mg PO DAILY 02/01/16 Docusate Sodium [Colace -] 100 mg PO TID 02/01/16 Enoxaparin Sodium [Lovenox] 100 mg SQ BID 02/01/16 Ferrous Sulfate [Feosol] 325 mg PO DAILY 02/01/16 Fluticasone Propionate [Flonase 2 inh NS BID 02/01/16 Allergy Relief] Insulin Detemir [Levemir Flextouch] 30 units SQ DAILY 02/01/16 Insulin Sliding Scale [Novolog 0 units SQ ACHS 02/01/16 Vial Sliding Scale -] Montelukast Na [Singulair -] 10 mg PO HS 02/01/16 [place]-3 Acid Ethyl Esters [Lovaza] 1 gm PO BID 02/01/16 Omeprazole 20 mg PO DAILY 02/01/16 Oxycodone HCl 5 mg PO BID PRN 02/01/16 Polyethylene Glycol 3350 [Miralax 17 gm PO DAILY 02/01/16 (For Daily Use) -] Potassium Chloride 40 meq PO DAILY 02/01/16 Pramipexole Di-HCl [Pramipexole 0.75 mg PO DAILY 02/01/16 Dihydrochloride] Pramipexole Di-HCl [Pramipexole 1.5 mg PO HS 02/01/16 Dihydrochloride] Ranolazine [Ranexa -] 500 mg PO BID 02/01/16 Sennosides [Senna] 2 tab PO HS 02/01/16 Sodium Chloride [Saline Nasal 1 ml NS Q6H PRN 02/01/16 [place]] Topiramate [Topiramate ER] 150 mg PO BID 02/01/16 Torsemide [Demadex] 40 mg PO DAILY 02/01/16 Tramadol HCl 50 mg PO Q6H PRN 02/01/16 Verapamil HCl [Verapamil ER] 240 mg PO DAILY 02/01/16 Warfarin Na [Coumadin] 12 mg PO HS 02/01/16 pe: Vital Signs Period Temp Pulse Resp BP Sys/Wise Pulse Ox Last 24 Hr 97.7 F-98.2 F 55-73 18-20 124-151/50-60 96 nad no jvd rrr s1s2 no mrg cta bl nl eff aaox3 no le e/c/c pos dp pt no carotid bruits no jaundice diaphoresis abd nt pos bs, nd +reproducible chest wall pain (chronic) Laboratory Last Values WBC 9.4 K/mm3 (4.0-10.0) D 05/22/16 12:00 RBC 4.52 M/mm3 (3.60-5.2) 05/22/16 12:00 Hgb 12.3 GM/dL (10.7-15.3) 05/22/16 12:00 Hct 38.2 % (32.4-45.2) 05/22/16 12:00 MCV 84.6 fl (80-96) 05/22/16 12:00 MCHC 32.3 g/dl (32.0-36.0) 05/22/16 12:00 RDW 16.5 % (11.6-15.6) H 05/22/16 12:00 Plt Count 234 K/MM3 (134-434) 05/22/16 12:00 MPV 9.5 fl (7.5-11.1) 05/22/16 12:00 Neutrophils % 70.4 % (42.8-82.8) 05/22/16 12:00 Lymphocytes % 18.6 % (8-40) 05/22/16 12:00 Monocytes % 7.9 % (3.8-10.2) 05/22/16 12:00 Eosinophils % 2.2 % (0-4.5) 05/22/16 12:00 Basophils % 0.9 % (0-2.0) 05/22/16 12:00 INR 1.72 (0.82-1.09) H 05/24/16 07:40 PTT ([place] FS) 50.6 SECONDS (26.9-34.4) H D 05/23/16 15:15 Sodium 143 mmol/L (136-145) 05/22/16 12:00 Potassium 4.0 mmol/L (3.5-5.1) 05/22/16 12:00 Chloride 110 mmol/L (98-107) H 05/22/16 12:00 Carbon Dioxide 26 mmol/L (21-32) 05/22/16 12:00 Anion Gap 7 (8-16) L 05/22/16 12:00 BUN 22 mg/dL (7-18) H D 05/22/16 12:00 Creatinine 1.2 mg/dL (0.55-1.02) H 05/22/16 12:00 Creat Clearance w eGFR 45.23 (>60) 05/22/16 12:00 POC Glucometer 123 UNITS (()) 05/23/16 22:18 Random Glucose 142 mg/dL (74-106) H D 05/22/16 12:00 Hemoglobin A1c % 6.7 % (4.8-6.0) H D 05/22/16 17:55 Calcium 8.9 mg/dL (8.5-10.1) 05/22/16 12:00 Total Bilirubin 0.2 mg/dL (0.2-1.0) D 05/22/16 12:00 AST 12 U/L (15-37) L D 05/22/16 12:00 ALT 8 U/L (12-78) L D 05/22/16 12:00 Alkaline Phosphatase 113 U/L (45-117) 05/22/16 12:00 Creatine Kinase 46 IU/L (26-192) 05/22/16 12:00 Troponin I < 0.02 ng/ml (0.00-0.05) 05/22/16 12:00 Total Protein 6.9 g/dl (6.4-8.2) 05/22/16 12:00 Albumin 3.3 g/dl (3.4-5.0) L 05/22/16 12:00 Triglycerides 117 mg/dL (35-160) 05/22/16 12:00 Cholesterol 154 mg/dL (50-200) 05/22/16 12:00 Total LDL Cholesterol 108 mg/dL (5-100) H 05/22/16 12:00 HDL Cholesterol 34 mg/dL (40-60) L 05/22/16 12:00 Blood Type O POSITIVE 05/22/16 12:00 Antibody Screen Negative 05/22/16 12:00 Ecg 05/22/16: sr, nl intervals, no st changes, non specific tw changes echo 04/2013: [facility]F, [facility] Echo 11/2013; normal LV/RVF, normally functioning [facility] mitral valve, small peric effusion--unchanged from prev echo 06/2014: nl lv/rv, lae, normal fcn [facility] mvr, rvsp 30-40 echo 07/2015: tds; nl lv/rv, mild lae, nl [facility] m[facility] mibi 12/2013: no ischemia holter 08/2015: sr, benign study cxr: clear lungs tele: sr, sinus tachy a/p: 65 year old lady with past medical history of COPD on home , FIGUEROA (on cpap at home), CAD (s/p single vessel CABG 2006 with RUSSELL to OM and ORSALINA x2 to LAD 12/2011; last cath 06/2014 showed patent RUSSELL, patent LAD stents, no sig residual dz except for 80-90% OM that is bypassed), mech mvr ([facility], 2006, on coumadin), anemia, TIA, dCHF, DM, HTN, pafib, antiphospholipid syndrome (on coumadin), fibromyalgia, migraines, chronic atypical cp, obesity, LBP here with right face numbness. face numbness: -evaluated by neuro, had mri, no acute findings notes -further plans per neuro Atyp CP: -chronic recurrent sx for the pt, has been less frequent recently -MSK features, reproducible on exam -no signs acs -prior NST for this cp in 12/2013 showed no ischemia and recent cath for this persistent cp 06/2014 showed patent graft and prior pci, no significant residual dz cad, s/p cabg, pci: -as above -normal lvef on recent echo, no anginal sxs -no bb due to copd, on verapamil instead -not on statin due to prior intolerance -cont ranexa for possible small vessel dz symptoms -on ac, no asa Mech MVR: -on AC w/ coumadin, target INR 2.5 to 3.5 -recent echo with normal [facility] mvr function Hx of mod pericardial effusion: -no effusion reported on recent echo HTN: Controlled on current meds pafib: -rare episodes in past -remains in sr here -recent holter showed sr only -continue verapamil and dig -cont ac with coumadin, has hx of TIA stable, chronic HFpEF: -vol status has been stable on torsemide 40 qd with kcl. cardiac diggs pt is stable. if otherwise ready for dc then pt can be discharged and continue with lovenox bridging/coumadin at home as she has done this frequently in past and has inr checked at our office.
[2016-05-24] MEDS: INSULIN SLIDING SCALE (NOVOLOG) 1 VIAL SQ SCH ×3 (11:23→22:18)
[2016-05-24] MEDS ORDERED: WARFARIN NA 2 MG TABLET (UD) ONE (17:39)
[2016-05-24] MEDS ORDERED: WARFARIN NA 10 MG TABLET (FP) ONE (17:39)
[2016-05-24] MEDS: WARFARIN NA 10 MG, WARFARIN NA 2 MG PO SCH (17:48)
[2016-05-24] MEDS: traMADol HCL 50 MG TABLET PO PRN (20:15)
--- NOTE | 2016-05-24 20:29 | CONSULT ---
Consult Consult Specialty:: endocrine Referred by:: dr.annabi mathis Reason for Consultation:: iddm hyperglycemia - History of Present Illness Chief Complaint: weakness slurred speech History of Present Illness: 65 year old female with a significant past medical history of anemia, asthma, hypertension, hyperlipidemia, diabetes, CHF, CAD, Afib (on Coumadin), mitral valve replacement, stents x2, COPD, CVA (multiple TIAs), who presents to the emergency department with facial numbness since 930am yesterday The patient states that she got up to check her INR and she felt numbness in the right side of her head and her forehead. The patient went to her environmental sustainability manager but was unable to formulate sentences and explain her symptoms to the environmental sustainability manager. She also states that her right eyebrow feels droopy. She c/o headaches .has had fluctuating bs with occasional low sugars taking less insulin when it drops - History Source History Provided By: Patient - Past Medical History LEAD APPLICATION ARCHITECT: Yes: CVA, Migraine, Other (light-headedness and dizziness) Cardio/Vascular: Yes: AFIB, CAD, CHF, HTN, Hyperlipdemia, Other (S/P [facility] mitral valve replacement) Pulmonary: Yes: Asthma, COPD, Sleep Apnea (on CPAP at night) Gastrointestinal: Yes: Constipation, Diverticulosis, GI Bleed, Hemorrhoids Musculoskeletal: Yes: Chronic low back pain, Other (Spinal stenosis) Rheumatology: Yes: Lupus, Other (APLAS (BOTH LUPUS AND APLS ARE QUESTIONABLE)) Endocrine: Yes: Diabetes Mellitus - Past Surgical History Past Surgical History: Yes: CABG, Cholecystectomy, Hysterectomy, Oopherectomy - Alcohol/Substance Use Hx Alcohol Use: No History of Substance Use: reports: None - Smoking History Smoking history: Former smoker Have you smoked in the past 12 months: No Aproximately how many cigarettes per day: 0 If you are a former smoker, when did you quit?: many years - Social History ADL: Independent Home Medications - Allergies Allergies/Adverse Reactions: Allergies Allergy/AdvReac Type Severity Reaction Status Date / Time lactose Allergy Mild Verified 05/22/16 11:55 Beta-Blockers Allergy Verified 05/22/16 11:55 (Beta-Adrenergic Bloc Iodinated Contrast Media - Allergy Verified 05/22/16 11:55 Oral and [IV Dye, Iodine Containing Contrast ] shellfish derived Allergy Verified 05/22/16 11:55 - Home Medications Home Medications: Ambulatory Orders Albuterol 0.083% Nebulizer Brigitte [Ventolin 0.083%] 1 neb NEB QID 02/01/16 Bupropion HBr [Aplenzin] 300 mg PO DAILY 02/01/16 Carbidopa/Levodopa [Carbidopa-Levodopa 25-100 Tab] 1 each PO AC 02/01/16 Cholecalciferol (Vitamin D3) [Vitamin D3] 5,000 unit PO WEEKLY 02/01/16 Citalopram Hydrobromide [Citalopram HBr] 10 mg PO HS 02/01/16 Digoxin [Lanoxin -] 0.125 mg PO DAILY 02/01/16 Docusate Sodium [Colace -] 100 mg PO TID 02/01/16 Enoxaparin Sodium [Lovenox] 100 mg SQ BID 02/01/16 Ferrous Sulfate [Feosol] 325 mg PO DAILY 02/01/16 Fluticasone Propionate [Flonase Allergy Relief] 2 inh NS BID 02/01/16 Insulin Detemir [Levemir Flextouch] 30 units SQ DAILY 02/01/16 Insulin Sliding Scale [Novolog Vial Sliding Scale -] 0 units SQ ACHS 02/01/16 Montelukast Na [Singulair -] 10 mg PO HS 02/01/16 [place]-3 Acid Ethyl Esters [Lovaza] 1 gm PO BID 02/01/16 Omeprazole 20 mg PO DAILY 02/01/16 Oxycodone HCl 5 mg PO BID PRN 02/01/16 Polyethylene Glycol 3350 [Miralax (For Daily Use) -] 17 gm PO DAILY 02/01/16 Potassium Chloride 40 meq PO DAILY 02/01/16 Pramipexole Di-HCl [Pramipexole Dihydrochloride] 0.75 mg PO DAILY 02/01/16 Pramipexole Di-HCl [Pramipexole Dihydrochloride] 1.5 mg PO HS 02/01/16 Ranolazine [Ranexa -] 500 mg PO BID 02/01/16 Sennosides [Senna] 2 tab PO HS 02/01/16 Sodium Chloride [Saline Nasal [place]] 1 ml NS Q6H PRN 02/01/16 Topiramate [Topiramate ER] 150 mg PO BID 02/01/16 Torsemide [Demadex] 40 mg PO DAILY 02/01/16 Tramadol HCl 50 mg PO Q6H PRN 02/01/16 Verapamil HCl [Verapamil ER] 240 mg PO DAILY 02/01/16 Warfarin Na [Coumadin] 12 mg PO HS 02/01/16 Family Disease History - Family Disease History Family Disease History: Diabetes: Grandparent, Mother, Heart Disease: Father, Other: Sister (Lupus) Review of Systems - Review of Systems Constitutional: reports: Lethargy, Loss of Appetite Eyes: reports: Blurred Vision HENT: reports: No Symptoms Neck: reports: No Symptoms Cardiovascular: reports: Shortness of Breath Respiratory: reports: Exercise Intolerance, SOB on Exertion Gastrointestinal: reports: Abdominal Pain Genitourinary: reports: No Symptoms Musculoskeletal: reports: Muscle Cramps, Muscle Weakness Integumentary: reports: No Symptoms Neurological: reports: Dizziness, Unsteady Gait, Weakness Endocrine: reports: Unexplained Weight Gain Physical Exam Vital Signs: Vital Signs Temperature 99.0 F 05/24/16 18:00 Pulse Rate 68 05/24/16 18:00 Respiratory Rate 19 05/24/16 18:00 Blood Pressure 122/61 05/24/16 18:00 O2 Sat by Pulse Oximetry (%) 96 05/24/16 10:00 Constitutional: Yes: Anxious Eyes: Yes: EOM Intact HENT: Yes: Normocephalic Neck: Yes: Trachea Midline Cardiovascular: Yes: Regular Rate and Rhythm Respiratory: Yes: Tachypnea Gastrointestinal: Yes: Normal Bowel Sounds ...Rectal Exam: Yes: Deferred Renal/: Yes: WNL Breast(s): Yes: WNL Musculoskeletal: Yes: Back Pain, Muscle Weakness Extremities: Yes: WNL Edema: Yes Peripheral Pulses WNL: Yes Neurological: Yes: Alert, Oriented Problem List - Problems (1) FIGUEROA (obstructive sleep apnea) Code(s): G47.33 - OBSTRUCTIVE SLEEP APNEA (ADULT) (PEDIATRIC) (2) IDDM (insulin dependent diabetes mellitus) Code(s): E11.9 - TYPE 2 DIABETES MELLITUS WITHOUT COMPLICATIONS Z79.4 - ENGINEER TECHNICIAN (CURRENT) USE OF INSULIN Assessment/Plan Current Active Problems Anticoagulated (Acute) CHF (congestive heart failure) (Acute) COPD (chronic obstructive pulmonary disease) (Acute) Diabetes (Acute) Epistaxis (Acute) Headache (Acute) FIGUEROA (obstructive sleep apnea) (Acute) S/P MVR (mitral valve replacement) (Acute) SOB (shortness of breath) (Acute) TIA (transient ischemic attack) (Acute) iddm hyperglycemia labile blood sugar Laboratory Results - last 24 hr 05/23/16 05/23/16 05/24/16 19:08 22:18 07:40 INR 1.47 H 1.72 H POC Glucometer 123 Laboratory Results - last 24 hr Laboratory Tests 05/22/16 05/22/16 05/22/16 12:00 12:02 17:55 Sodium 143 Potassium 4.0 Chloride 110 H Carbon Dioxide 26 Anion Gap 7 L BUN 22 H D Creatinine 1.2 H POC Glucometer 173.23937 Hemoglobin A1c % 6.7 H D 05/22/16 05/23/16 05/23/16 22:36 06:13 10:58 Sodium Potassium Chloride Carbon Dioxide Anion Gap BUN Creatinine POC Glucometer 119 121 129 Hemoglobin A1c % plan: [facility] with coverage novolog Current Medications Generic Name Dose Route Start Last Admin Trade Name Freq PRN Reason Stop Dose Admin Acetaminophen 650 mg 05/22/16 17:44 05/24/16 11:20 Tylenol - PO 650 mg Q6H PRN Administration FEVER OR PAIN Albuterol/Ipratropium 1 amp 05/22/16 17:44 05/24/16 11:22 Duoneb - NEB 1 amp Q6H PRN Administration SHORTNESS OF BREATH Bupropion HCl 75 mg 05/22/16 22:00 05/24/16 09:48 Wellbutrin - PO 75 mg BID CHRIS Administration Carbidopa/Levodopa 1 each 05/22/16 22:00 05/24/16 13:24 Sinemet 25/100 - PO 1 each TID CHRIS Administration Citalopram Hydrobromide 10 mg 05/23/16 10:00 05/24/16 09:44 Celexa - PO 10 mg DAILY CHRIS Administration Digoxin 0.125 mg 05/23/16 10:00 05/24/16 09:46 Lanoxin - PO 0.125 mg DAILY CHRIS Administration Docusate Sodium 300 mg 05/22/16 22:00 05/23/16 22:22 Colace - PO 300 mg HS CHRIS Administration Enoxaparin Sodium 100 mg 05/22/16 18:00 05/24/16 09:46 Lovenox - SQ 100 mg BID CHRIS Administration Ferrous Sulfate 325 mg 05/23/16 10:00 05/24/16 09:45 Feosol - PO 325 mg DAILY CHRIS Administration Insulin Aspart 1 vial 05/22/16 22:00 05/24/16 17:33 Novolog Vial Sliding Scale - SQ Not Given ACHS [facility] Protocol Insulin Detemir 30 units 05/22/16 22:00 05/23/16 22:20 Levemir Vial SQ 30 units HS CHRIS Administration Montelukast Sodium 10 mg 05/22/16 22:00 05/23/16 22:22 Singulair - PO 10 mg HS CHRIS Administration Oxycodone HCl 5 mg 05/22/16 17:44 05/24/16 06:47 Roxicodone - PO 5 mg Q6H PRN Administration PAIN Pantoprazole Sodium 40 mg 05/23/16 10:00 05/24/16 09:47 Protonix - PO 40 mg DAILY CHRIS Administration Polyethylene Glycol 17 gm 05/23/16 10:00 05/24/16 09:52 Miralax (For Daily Use) - PO 17 grams DAILY CHRIS Administration Potassium Chloride 40 meq 05/23/16 10:00 05/24/16 09:45 K-Dur - PO 40 meq DAILY CHRIS Administration Pramipexole Dihydrochloride 1.5 mg 05/22/16 22:00 05/23/16 22:22 Mirapex - PO 1.5 mg HS CHRIS Administration Pregabalin 100 mg 05/22/16 23:45 05/24/16 09:47 Lyrica - PO 100 mg BID CHRIS Administration Ranolazine 500 mg 05/22/16 22:00 05/24/16 09:48 Ranexa - PO 500 mg BID CHRIS Administration Senna 1 tab 05/22/16 22:00 05/23/16 22:22 Senna - PO 1 tab HS CHRIS Administration Sodium Chloride 2 spray 05/22/16 17:44 [place] Slater Nasal Slater - NS BID PRN NASAL CONGESTION Topiramate 25 mg 05/23/16 10:00 05/24/16 09:50 Topamax - PO 25 mg DAILY CHRIS Administration Torsemide 40 mg 05/23/16 10:00 05/24/16 09:44 Demadex - PO 40 mg DAILY CHRIS Administration Tramadol HCl 50 mg 05/22/16 17:44 05/24/16 20:15 Ultram - PO 50 mg Q6H PRN Administration PAIN Verapamil HCl 240 mg 05/23/16 10:00 05/24/16 09:43 Calan Sr - PO 240 mg DAILY CHRIS Administration Warfarin Sodium 10 mg/ 12 mg 05/22/16 18:15 05/24/16 17:48 Warfarin Sodium 2 mg PO 12 mg DAILY@1800 CHRIS Administration levemir 30 units hs ck tsh free t4
[2016-05-24] MEDS: INSULIN DETEMIR 100 UNITS/ML MDV SQ SCH (22:29)
[2016-05-24] MEDS: MONTELUKAST NA 10 MG TABLET PO SCH (22:30)
[2016-05-24] MEDS: PRAMIPEXOLE DIHYDROCHLORIDE 1.5 MG TABLET PO SCH (22:30)
[2016-05-24] MEDS: SENNOSIDES 8.6MG TABLET (FP) PO SCH (22:30)
[2016-05-24] MEDS: DOCUSATE SODIUM 100 MG CAPSULE (FP) PO SCH (22:30)
[2016-05-25] MEDS: INSULIN SLIDING SCALE (NOVOLOG) 1 VIAL SQ SCH ×2 (06:08→12:08)
[2016-05-25] MEDS: CARBIDOPA/LEVODOPA 25/100 TABLET (FP) PO SCH ×2 (06:08→14:40)
[2016-05-25] MEDS ORDERED: PT OWN MED DRAWER 7, Y5N ONE ×2 (08:05→12:04)
[2016-05-25] MEDS: oxyCODONE HCL 5 MG TABLET PO PRN (08:07)
[2016-05-25] MEDS: ACETAMINOPHEN 325 MG TABLET (FP) PO PRN (08:08)
[2016-05-25 09:05] LABS: FREE T4 1.04 ng/dl (0.76-1.46); THYROID STIMULATING HORMONE 2.39 uIU/ml (0.358-3.74)
[2016-05-25] MEDS: POTASSIUM CHLORIDE TABS 20 MEQ TABLET.ER (FP) PO SCH (09:13)
[2016-05-25] MEDS: CITALOPRAM HYDROBROMIDE 10 MG TABLET (FP) PO SCH (09:13)
[2016-05-25] MEDS: TORSEMIDE 20 MG TABLET (FP) PO SCH (09:13)
[2016-05-25] MEDS: RANOLAZINE E.R. 500 MG TABLET (FP) PO SCH (09:13)
[2016-05-25] MEDS: PANTOPRAZOLE 40 MG TABLET (FP) PO SCH (09:13)
[2016-05-25] MEDS: FERROUS SO4 325 MG TABLET (FP) PO SCH (09:14)
[2016-05-25] MEDS: DIGOXIN 0.125 MG TABLET (FP) PO SCH (09:14)
[2016-05-25] MEDS: PREGABALIN 100 MG CAPSULE PO SCH (09:15)
[2016-05-25] MEDS: buPROPion HCL 75 MG TABLET PO SCH (09:15)
[2016-05-25] MEDS: ENOXAPARIN NA (PORCINE) 100 MG/1 ML DISP.SYRIN SQ SCH (09:15)
[2016-05-25] MEDS: POLYETHYLENE GLYCOL 3350 119 GM BTL PO SCH (09:24)
--- NOTE | 2016-05-25 09:43 | PN ---
Progress Note (short form) - Note Progress Note: s: no cp sob palps dizzy o: Vital Signs Period Temp Pulse Resp BP Sys/Wise Pulse Ox Last 24 Hr 97.5 F-99.0 F 57-73 18-20 119-133/47-61 96-96 nad no jvd rrr s1s2 no mrg cta bl nl eff aaox3 no le e/c/c no jaundice diaphoresis abd nt pos bs, nd +reproducible chest wall pain (chronic) Current Medications Generic Name Dose Route Start Last Admin Trade Name Freq PRN Reason Stop Dose Admin Acetaminophen 650 mg 05/22/16 17:44 05/25/16 08:08 Tylenol - PO 325 mg Q6H PRN Administration FEVER OR PAIN Albuterol/Ipratropium 1 amp 05/22/16 17:44 05/24/16 22:55 Duoneb - NEB 1 amp Q6H PRN Administration SHORTNESS OF BREATH Bupropion HCl 75 mg 05/22/16 22:00 05/25/16 09:15 Wellbutrin - PO 75 mg BID CHRIS Administration Carbidopa/Levodopa 1 each 05/22/16 22:00 05/25/16 06:08 Sinemet 25/100 - PO 1 each TID CHRIS Administration Citalopram Hydrobromide 10 mg 05/23/16 10:00 05/25/16 09:13 Celexa - PO 10 mg DAILY CHRIS Administration Digoxin 0.125 mg 05/23/16 10:00 05/25/16 09:14 Lanoxin - PO 0.125 mg DAILY CHRIS Administration Docusate Sodium 300 mg 05/22/16 22:00 05/24/16 22:30 Colace - PO 300 mg HS CHRIS Administration Enoxaparin Sodium 100 mg 05/22/16 18:00 05/25/16 09:15 Lovenox - SQ 100 mg BID CHRIS Administration Ferrous Sulfate 325 mg 05/23/16 10:00 05/25/16 09:14 Feosol - PO 325 mg DAILY CHRIS Administration Insulin Aspart 1 vial 05/22/16 22:00 05/25/16 06:08 Novolog Vial Sliding Scale - SQ Not Given ACHS CHRIS Protocol Insulin Detemir 30 units 05/22/16 22:00 05/24/16 22:29 Levemir Vial SQ 30 units HS CHRIS Administration Montelukast Sodium 10 mg 05/22/16 22:00 05/24/16 22:30 Singulair - PO 10 mg HS CHRIS Administration Oxycodone HCl 5 mg 05/22/16 17:44 05/25/16 08:07 Roxicodone - PO 5 mg Q6H PRN Administration PAIN Pantoprazole Sodium 40 mg 05/23/16 10:00 05/25/16 09:13 Protonix - PO 40 mg DAILY CHRIS Administration Polyethylene Glycol 17 gm 05/23/16 10:00 05/25/16 09:24 Miralax (For Daily Use) - PO 17 grams DAILY CHRIS Administration Potassium Chloride 40 meq 05/23/16 10:00 05/25/16 09:13 K-Dur - PO 40 meq DAILY CHRIS Administration Pramipexole Dihydrochloride 1.5 mg 05/22/16 22:00 05/24/16 22:30 Mirapex - PO 1.5 mg HS CHRIS Administration Pregabalin 100 mg 05/22/16 23:45 05/25/16 09:15 Lyrica - PO 100 mg BID CHRIS Administration Ranolazine 500 mg 05/22/16 22:00 05/25/16 09:13 Ranexa - PO 500 mg BID CHRIS Administration Senna 1 tab 05/22/16 22:00 05/24/16 22:30 Senna - PO 1 tab HS CHRIS Administration Sodium Chloride 2 spray 05/22/16 17:44 [place] Nasal [place] - NS BID PRN NASAL CONGESTION Topiramate 25 mg 05/23/16 10:00 05/24/16 09:50 Topamax - PO 25 mg DAILY CHRIS Administration Torsemide 40 mg 05/23/16 10:00 05/25/16 09:13 Demadex - PO 40 mg DAILY CHRIS Administration Tramadol HCl 50 mg 05/22/16 17:44 05/24/16 20:15 Ultram - PO 50 mg Q6H PRN Administration PAIN Verapamil HCl 240 mg 05/23/16 10:00 05/24/16 09:43 Calan Sr - PO 240 mg DAILY CHRIS Administration Warfarin Sodium 10 mg/ 12 mg 05/22/16 18:15 05/24/16 17:48 Warfarin Sodium 2 mg PO 12 mg DAILY@1800 CHRIS Administration CBC, BMP 05/22/16 12:00 05/22/16 12:00 Ecg 05/22/16: sr, nl intervals, no st changes, non specific tw changes echo 04/2013: normal LV/RVF, normally functioning mech MVR Echo 11/2013; normal LV/RVF, normally functioning mech mitral valve, small peric effusion--unchanged from prev echo 06/2014: nl lv/rv, lae, normal fcn mech mvr, rvsp 30-40 echo 07/2015: tds; nl lv/rv, mild lae, nl mech mvr mibi 12/2013: no ischemia holter 08/2015: sr, benign study cxr: clear lungs tele: sr, occ pvcs a/p: 65 year old lady with past medical history of COPD on home , FIGUEROA (on cpap at home), CAD (s/p single vessel CABG 2006 with RUSSELL to OM and ROSALINA x2 to LAD 12/2011; last cath 06/2014 showed patent RUSSELL, patent LAD stents, no sig residual dz except for 80-90% OM that is bypassed), [facility], [facility]), anemia, TIA, dCHF, DM, HTN, pafib, antiphospholipid syndrome (on coumadin), fibromyalgia, migraines, chronic atypical cp, obesity, LBP here with right face numbness. face numbness: -evaluated by neuro, had mri, no acute findings notes -further plans per neuro Atyp CP: -chronic recurrent sx for the pt, has been less frequent recently -MSK features, reproducible on exam -no signs acs -prior NST for this cp in 12/2013 showed no ischemia and recent cath for this persistent cp 06/2014 showed patent graft and prior pci, no significant residual dz cad, s/p cabg, pci: -as above -normal lvef on recent echo, no anginal sxs -no bb due to copd, on verapamil instead -not on statin due to prior intolerance -cont ranexa for possible small vessel dz symptoms -on ac, no asa Mech MVR: -on AC w/ coumadin, target INR 2.5 to 3.5 -recent echo with normal mech mvr function Hx of mod pericardial effusion: -no effusion reported on recent echo HTN: Controlled on current meds pafib: -rare episodes in past -remains in sr here -recent holter showed sr only -continue verapamil and dig -cont ac with coumadin, has hx of TIA stable, chronic HFpEF: -vol status has been stable on torsemide 40 qd with kcl. cardiac diggs pt is stable. if otherwise ready for dc then pt can be discharged and continue with lovenox bridging/coumadin at home as she has done this frequently in past and has inr checked at our office.
[2016-05-25 10:19] LABS: MCH 27.5 pg (25.7-33.7); MCHC 32.3 g/dl (32.0-36.0); MEAN CELL VOLUME 85.1 fl (80-96); MEAN PLT VOLUME 9.2 fl (7.5-11.1); PLATELET COUNT 236 K/MM3 (134-434); RDW 16.7 % (11.6-15.6); WHITE BLOOD COUNT 8.1 K/mm3 (4.0-10.0)
--- NOTE | 2016-05-25 10:23 | PN ---
Progress Note (short form) - Note Progress Note: Neurology The patient is a 65 year old female with a significant past medical history of anemia, asthma, hypertension, hyperlipidemia, diabetes, CHF, CAD, Afib (on Coumadin), mitral valve replacement, stents x2, COPD, CVA (multiple TIAs), who presents to the emergency department with facial numbness since 930am. The patient states that she got up to check her INR and she felt numbness in the right side of her head and her forehead. NIHSS of 1, believed risk of bleed outweight benefits for patient with minimal symptoms. Patient was out of 3 hour window and decision was to not give TPA. MRI completed and no acute changes with old R parietal and L occipital hemoragic lacune. INR being monitored. Active Medications Acetaminophen (Tylenol -) 650 mg PO Q6H PRN PRN Reason: FEVER OR PAIN Last Admin: 05/25/16 08:08 Dose: 325 mg Albuterol/Ipratropium (Duoneb -) 1 amp NEB Q6H PRN PRN Reason: SHORTNESS OF BREATH Last Admin: 05/24/16 22:55 Dose: 1 amp Bupropion HCl (Wellbutrin -) 75 mg PO BID [facility] Last Admin: 05/25/16 09:15 Dose: 75 mg Carbidopa/Levodopa (Sinemet 25/100 -) 1 each PO TID [facility] Last Admin: 05/25/16 06:08 Dose: 1 each Citalopram Hydrobromide (Celexa -) 10 mg PO DAILY [facility] Last Admin: 05/25/16 09:13 Dose: 10 mg Digoxin (Lanoxin -) 0.125 mg PO DAILY [facility] Last Admin: 05/25/16 09:14 Dose: 0.125 mg Docusate Sodium (Colace -) 300 mg PO HS [facility] Last Admin: 05/24/16 22:30 Dose: 300 mg Enoxaparin Sodium (Lovenox -) 100 mg SQ BID [facility] Last Admin: 05/25/16 09:15 Dose: 100 mg Ferrous Sulfate (Feosol -) 325 mg PO DAILY [facility] Last Admin: 05/25/16 09:14 Dose: 325 mg Insulin Aspart (Novolog Vial Sliding Scale -) 1 vial SQ ACHS [facility] PRN Reason: Protocol Last Admin: 05/25/16 06:08 Dose: Not Given Insulin Detemir (Levemir Vial) 30 units SQ HS [facility] Last Admin: 05/24/16 22:29 Dose: 30 units Montelukast Sodium (Singulair -) 10 mg PO HS [facility] Last Admin: 05/24/16 22:30 Dose: 10 mg Oxycodone HCl (Roxicodone -) 5 mg PO Q6H PRN PRN Reason: PAIN Last Admin: 05/25/16 08:07 Dose: 5 mg Pantoprazole Sodium (Protonix -) 40 mg PO DAILY [facility] Last Admin: 05/25/16 09:13 Dose: 40 mg Polyethylene Glycol (Miralax (For Daily Use) -) 17 gm PO DAILY [facility] Last Admin: 05/25/16 09:24 Dose: 17 grams Potassium Chloride (K-Dur -) 40 meq PO DAILY [facility] Last Admin: 05/25/16 09:13 Dose: 40 meq Pramipexole Dihydrochloride (Mirapex -) 1.5 mg PO [facility] Last Admin: 05/24/16 22:30 Dose: 1.5 mg Pregabalin (Lyrica -) 100 mg PO BID [facility] Last Admin: 05/25/16 09:15 Dose: 100 mg Ranolazine (Ranexa -) 500 mg PO BID [facility] Last Admin: 05/25/16 09:13 Dose: 500 mg Senna (Senna -) 1 tab PO [facility] Last Admin: 05/24/16 22:30 Dose: 1 tab Sodium Chloride ([place] Nasal [place] -) 2 spray NS BID PRN PRN Reason: NASAL CONGESTION Topiramate (Topamax -) 25 mg PO DAILY [facility] Last Admin: 05/24/16 09:50 Dose: 25 mg Torsemide (Demadex -) 40 mg PO DAILY [facility] Last Admin: 05/25/16 09:13 Dose: 40 mg Tramadol HCl (Ultram -) 50 mg PO Q6H PRN PRN Reason: PAIN Last Admin: 05/24/16 20:15 Dose: 50 mg Verapamil HCl (Calan Sr -) 240 mg PO DAILY [facility] Last Admin: 05/24/16 09:43 Dose: 240 mg Warfarin Sodium 10 mg/ (Warfarin Sodium 2 mg) 12 mg PO DAILY@1800 [facility] Last Admin: 05/24/16 17:48 Dose: 12 mg *Physical Exam Last Vital Signs Temp Pulse Resp BP Pulse Ox 98.7 F 66 19 133/56 96 05/25/16 06:00 05/25/16 09:14 05/25/16 06:00 05/25/16 06:00 05/25/16 02:00 GENERAL: Awake, alert, and fully oriented, in no acute distress HEAD: No signs of trauma EYES: PERRLA, EOMI, sclera anicteric, conjunctiva clear ENT: Auricles normal inspection, hearing grossly normal, nares patent, oropharynx clear without exudates. Moist mucosa NECK: Normal ROM, supple, no lymphadenopathy, JVD, or masses LUNGS: Breath sounds equal, clear to auscultation bilaterally. No wheezes, and no crackles HEART: Regular rate and rhythm, normal S1 and S2, no murmurs, rubs or gallops ABDOMEN: Soft, nontender, normoactive bowel sounds. No guarding, no rebound. No masses EXTREMITIES: Normal range of motion, no edema. No clubbing or cyanosis. No cords, erythema, or tenderness NEUROLOGICAL: +Decreased sensation in the right forehead and right maxilla. Normal speech. SKIN: Warm, Dry, normal turgor, no rashes or lesions noted. CBCD WBC 9.4 K/mm3 (4.0-10.0) D 05/22/16 12:00 RBC 4.52 M/mm3 (3.60-5.2) 05/22/16 12:00 Hgb 12.3 GM/dL (10.7-15.3) 05/22/16 12:00 Hct 38.2 % (32.4-45.2) 05/22/16 12:00 MCV 84.6 fl (80-96) 05/22/16 12:00 MCHC 32.3 g/dl (32.0-36.0) 05/22/16 12:00 RDW 16.5 % (11.6-15.6) H 05/22/16 12:00 Plt Count 234 K/MM3 (134-434) 05/22/16 12:00 MPV 9.5 fl (7.5-11.1) 05/22/16 12:00 CMP Sodium 143 mmol/L (136-145) 05/22/16 12:00 Potassium 4.0 mmol/L (3.5-5.1) 05/22/16 12:00 Chloride 110 mmol/L (98-107) H 05/22/16 12:00 Carbon Dioxide 26 mmol/L (21-32) 05/22/16 12:00 Anion Gap 7 (8-16) L 05/22/16 12:00 BUN 22 mg/dL (7-18) H D 05/22/16 12:00 Creatinine 1.2 mg/dL (0.55-1.02) H 05/22/16 12:00 Creat Clearance w eGFR 45.23 (>60) 05/22/16 12:00 Calcium 8.9 mg/dL (8.5-10.1) 05/22/16 12:00 Total Bilirubin 0.2 mg/dL (0.2-1.0) D 05/22/16 12:00 AST 12 U/L (15-37) L D 05/22/16 12:00 ALT 8 U/L (12-78) L D 05/22/16 12:00 Alkaline Phosphatase 113 U/L (45-117) 05/22/16 12:00 Total Protein 6.9 g/dl (6.4-8.2) 05/22/16 12:00 Albumin 3.3 g/dl (3.4-5.0) L 05/22/16 12:00 - RADIOLOGY Radiograph Interpretation: HEAD CT: Impression: No evidence of acute intracranial hemorrhage, edema, midline shift, mass effect, or skull fracture. No CT evidence of acute territorial infarction. MRI brain without acute changes Plan: 65 year old female with a significant past medical history of anemia, asthma, hypertension, hyperlipidemia, diabetes, CHF, CAD, Afib (on Coumadin), mitral valve replacement, stents x2, COPD, CVA (multiple TIAs), who presents to the emergency department with facial numbness since 930am. The patient states that she got up to check her INR and she felt numbness in the right side of her head and her forehead. NIHSS of 1, believed risk of bleed outweight benefits for patient with minimal symptoms. Patient was out of 3 hour window and decision was to not give TPA. MRI completed and no acute changes with old R parietal and L occipital hemoragic lacune. INR being bring monitored. Pt/OT, continue medical mgmt. Patient well appearing today with occasional tingling but no focal deficits.
[2016-05-25 10:24] LABS: CALCIUM 8.5 mg/dL (8.5-10.1); CREATININE 1.2 mg/dL (0.55-1.02)
[2016-05-25 11:12] LABS: INR 2.22 (0.82-1.09); PROTHROMBIN TIME (PATIENT) 24.8 SEC (9.98-11.88)
[2016-05-25] MEDS: VERAPAMIL HCL 240 MG E.R. TABLET (FP) PO SCH (12:07)
[2016-05-25] MEDS: TOPIRAMATE 25 MG TABLET (FP) PO SCH (12:08)
--- NOTE | 2016-05-25 14:20 | DS ---
Physical Examination Vital Signs: Vital Signs Temperature 97.4 F L 05/25/16 10:00 Pulse Rate 64 05/25/16 10:00 Respiratory Rate 18 05/25/16 10:00 Blood Pressure 136/59 05/25/16 10:00 O2 Sat by Pulse Oximetry (%) 96 05/25/16 10:00 Constitutional: Yes: Calm, Other (no headache right now) Neck: Yes: Trachea Midline Cardiovascular: Yes: Regular Rate and Rhythm, S1, S2 Respiratory: Yes: CTA Bilaterally Gastrointestinal: Yes: Normal Bowel Sounds, Soft Edema: No Neurological: Yes: Alert, Oriented Labs: CBC, BMP 05/25/16 09:45 05/25/16 09:45 Discharge Summary Reason For Visit: TRANSIENTCEREBRAL ISCHEMIA Current Active Problems Anticoagulated (Acute) CHF (congestive heart failure) (Acute) COPD (chronic obstructive pulmonary disease) (Acute) Diabetes (Acute) Epistaxis (Acute) Headache (Acute) IDDM (insulin dependent diabetes mellitus) (Acute) FIGUEROA (obstructive sleep apnea) (Acute) S/P MVR (mitral valve replacement) (Acute) SOB (shortness of breath) (Acute) TIA (transient ischemic attack) (Acute) Hospital Course: The patient is a 65 year old female with a significant past medical history of anemia, asthma, hypertension, hyperlipidemia, diabetes, CHF, CAD, Afib (on Coumadin), mitral valve replacement, stents x2, COPD, CVA (multiple TIAs), who presents to the emergency department with facial numbness since 930am. The patietn states that she got up to check her INR and she felt numbness in the right side of her head and her forehead. 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 She also states that her right eyebrow feels droopy. She denies any headaches or dizziness. She denies weakness in her lower extremities bilaterally. She denies fevers or chills. she was out of the window period so got no tpa patient got MRI and MRA no acute defects seen by neurology Condition: Stable - Instructions Diet, Activity, Other Instructions: lovenox to couamdin till INR is 2.5-3.5 Referrals: Jose España MD [Primary Care Provider] - Kenyon Loredo MD [Staff Physician] - 1 Week Disposition: HOME - Home Medications Comprehensive Discharge Medication List: Ambulatory Orders Albuterol 0.083% Nebulizer Brigitte [Ventolin 0.083%] 1 neb NEB QID 02/01/16 Bupropion HBr [Aplenzin] 300 mg PO DAILY 02/01/16 Carbidopa/Levodopa [Carbidopa-Levodopa 25-100 Tab] 1 each PO AC 02/01/16 Cholecalciferol (Vitamin D3) [Vitamin D3] 5,000 unit PO WEEKLY 02/01/16 Citalopram Hydrobromide [Citalopram HBr] 10 mg PO HS 02/01/16 Digoxin [Lanoxin -] 0.125 mg PO DAILY 02/01/16 Docusate Sodium [Colace -] 100 mg PO TID 02/01/16 Enoxaparin Sodium [Lovenox] 100 mg SQ BID 02/01/16 Ferrous Sulfate [Feosol] 325 mg PO DAILY 02/01/16 Fluticasone Propionate [Flonase Allergy Relief] 2 inh NS BID 02/01/16 Insulin Detemir [Levemir Flextouch] 30 units SQ DAILY 02/01/16 Insulin Sliding Scale [Novolog Vial Sliding Scale -] 0 units SQ ACHS 02/01/16 Montelukast Na [Singulair -] 10 mg PO HS 02/01/16 [place]-3 Acid Ethyl Esters [Lovaza] 1 gm PO BID 02/01/16 Omeprazole 20 mg PO DAILY 02/01/16 Oxycodone HCl 5 mg PO BID PRN 02/01/16 Polyethylene Glycol 3350 [Miralax (For Daily Use) -] 17 gm PO DAILY 02/01/16 Potassium Chloride 40 meq PO DAILY 02/01/16 Pramipexole Di-HCl [Pramipexole Dihydrochloride] 0.75 mg PO DAILY 02/01/16 Pramipexole Di-HCl [Pramipexole Dihydrochloride] 1.5 mg PO HS 02/01/16 Ranolazine [Ranexa -] 500 mg PO BID 02/01/16 Sennosides [Senna] 2 tab PO HS 02/01/16 Sodium Chloride [[place] Nasal [place]] 1 ml NS Q6H PRN 02/01/16 Topiramate [Topiramate ER] 150 mg PO BID 02/01/16 Torsemide [Demadex] 40 mg PO DAILY 02/01/16 Tramadol HCl 50 mg PO Q6H PRN 02/01/16 Verapamil HCl [Verapamil ER] 240 mg PO DAILY 02/01/16 Warfarin Na [Coumadin] 12 mg PO HS 02/01/16
[2016-05-25 15:12] VITALS: BP 122/68; PULSE 73; TEMP 98.4
== END 2016-05-25 17:45 | disposition home or self-care (01) | DRG 69 ==
LOC: JER 11:42 → JERBED 16:01 → J4W 21:34 → OBSVTOIN 05-24 15:30
PROVIDERS: ADMIT Family Medicine; ATTEND Family Medicine
DX: G45.9 Transient cerebral ischemic attack, unspecified (principal); R29.701 NIHSS score 1; E78.5 Hyperlipidemia, unspecified; J44.9 Chronic obstructive pulmonary disease, unspecified; I48.91 Unspecified atrial fibrillation; I25.10 Atherosclerotic heart disease of native coronary artery without angina pectoris; E11.9 Type 2 diabetes mellitus without complications; J45.909 Unspecified asthma, uncomplicated; D64.9 Anemia, unspecified; G47.39 Other sleep apnea; K57.90 Diverticulosis of intestine, part unspecified, without perforation or abscess without bleeding; K64.8 Other hemorrhoids; M54.5 Low back pain; R51 Headache; I11.0 Hypertensive heart disease with heart failure; I50.9 Heart failure, unspecified; Z79.01 Long term (current) use of anticoagulants; Z87.891 Personal history of nicotine dependence; Z95.1 Presence of aortocoronary bypass graft; Z95.2 Presence of prosthetic heart valve; Z86.73 Personal history of transient ischemic attack (TIA), and cerebral infarction without residual deficits; Z79.4 Long term (current) use of insulin
CPT/HCPCS: 36415; 70450-TC; 70545-TC; 70551-TC; 70552-TC; 71010-TC; 80048; 80053; 82465; 82550; 83036; 83718; 83721; 84439; 84443; 84478; 84484; 85025; 85027; 85610; 85730; 86850; 86900; 86901; 93005; 93010; 94640; 97116-GP; 97162-PG; 99285-25; A9576; G0378

== ENCOUNTER → 2016-06-29 | Emergency (ER) | payer OTHER ==
[2016-06-29 17:43] VITALS: BMI 41.1
--- NOTE | 2016-06-29 20:11 | PDOC ---
History of Present Illness - General History Source: Patient <Romero Quinn - Last Filed: 06/30/16 00:59> - General History Source: Patient Exam Limitations: No Limitations - History of Present Illness Initial Comments: 06/29/16 20:25 The patient is a 65 year old female with significant past medical history of anemia, asthma, hypertension, hyperlipidemia, diabetes, CHF, CAD, s/p stents x2 , a-fib (on coumadin), mitral valve replacement, stents x2, COPD, and CVA ( multiple TIAs) who presents to the ED for vaginal bleeding that began last night. Patient reports her vaginal bleeding is copious, but currently does not have any vaginal bleeding during presentation. She has a pshx of total hysterectomy and oophorectomy. Patient reports she monitors her INR at home and noted it to be 4.4 today. She has complaints of fatigue, dizziness, generalized weakness and multiple mechanical falls. Denies LOC or any head trauma. She reports 1 year h/o of intermittent rectal bleeding that she describes as sometimes bright red or dark red with clots. States having h/o of intermittent epistaxis. At time of evaluation, patient reports she currently does not have any rectal bleeding or nose bleed. The patient denies fever, chills, cough, SOB, chest pain, and palpitations. The patient denies abdominal pain, nausea, vomiting, and diarrhea. Allergies: lactose, beta-blockers, iodinated contrast media oral and IV dye Social History: No alcohol, tobacco, or drug use reported. Past Surgical History: CABG, Cholecystectomy, Hysterectomy, Oophorectomy PCP: Dr. Jose España <Nu Julien - Last Filed: 06/30/16 01:58> - General Chief Complaint: Pain, Acute Stated Complaint: PCP SENT/DIARRHEA Time Seen by Provider: 06/29/16 19:20 Past History - Past Medical History Anemia: Yes Asthma: Yes Cardiac Disorders: Yes (mitral valve replacement, stents x2,a-fib, CAD) CVA: Yes (MULTIPLE TIAs) COPD: Yes (Yes, O2 2L-3L) CHF: Yes Diabetes: Yes GI Disorders: Yes (ulcers, GI bleed, hemorrhoids, diverticulosis) Disorders: Yes (bladder mesh) HTN: Yes Hypercholesterolemia: Yes Suicide Attempt (Hx): No Seizures: Yes Thyroid Disease: No - Surgical History Appendectomy: Yes Cardiac Surgery: Yes (stentsx2, mitral valve replacement, CABG) Cholecystectomy: Yes - Immunization History Immunization Up to Date: Yes - Psycho/Social/Smoking Cessation Hx Anxiety: No Suicidal Ideation: No Smoking Status: No Smoking History: Never smoked Have you smoked in the past 12 months: No Number of Cigarettes Smoked Daily: 0 If you are a former smoker, when did you quit?: many years Information on smoking cessation initiated: No Hx Alcohol Use: No Drug/Substance Use Hx: No Substance Use Type: None Hx Substance Use Treatment: No <Romero Quinn - Last Filed: 06/30/16 00:59> <Nu Julien - Last Filed: 06/30/16 01:58> - Past Medical History Allergies/Adverse Reactions: Allergies Allergy/AdvReac Type Severity Reaction Status Date / Time lactose Allergy Mild Verified 06/29/16 17:40 Beta-Blockers Allergy Verified 06/29/16 17:40 (Beta-Adrenergic Bloc Iodinated Contrast Media - Allergy Verified 06/29/16 17:40 Oral and [IV Dye, Iodine Containing Contrast ] shellfish derived Allergy Verified 06/29/16 17:40 Home Medications: Ambulatory Orders Albuterol 0.083% Nebulizer Brigitte [Ventolin 0.083% Nebulizer Soln -] 1 neb NEB QID 02/01/16 Bupropion HBr [Aplenzin] 300 mg PO DAILY 02/01/16 Carbidopa/Levodopa [Carbidopa-Levodopa 25-100 Tab] 1 each PO AC 02/01/16 Cholecalciferol (Vitamin D3) [Vitamin D3] 5,000 unit PO WEEKLY 02/01/16 Citalopram Hydrobromide [Citalopram HBr] 10 mg PO HS 02/01/16 Digoxin [Lanoxin -] 0.125 mg PO DAILY 02/01/16 Docusate Sodium [Colace -] 100 mg PO TID 02/01/16 Enoxaparin Sodium [Lovenox] 100 mg SQ BID 02/01/16 Ferrous Sulfate [Feosol] 325 mg PO DAILY 02/01/16 Fluticasone Propionate [Flonase Allergy Relief] 2 inh NS BID 02/01/16 Insulin Detemir [Levemir Flextouch] 30 units SQ DAILY 02/01/16 Insulin Sliding Scale [Novolog Vial Sliding Scale -] 0 units SQ ACHS 02/01/16 Montelukast Na [Singulair -] 10 mg PO HS 02/01/16 [place]-3 Acid Ethyl Esters [Lovaza] 1 gm PO BID 02/01/16 Omeprazole 20 mg PO DAILY 02/01/16 Oxycodone HCl 5 mg PO BID PRN 02/01/16 Polyethylene Glycol 3350 [Miralax 119 gm Btl -] 17 gm PO DAILY 02/01/16 Potassium Chloride 40 meq PO DAILY 02/01/16 Pramipexole Di-HCl [Pramipexole Dihydrochloride] 0.75 mg PO DAILY 02/01/16 Pramipexole Di-HCl [Pramipexole Dihydrochloride] 1.5 mg PO HS 02/01/16 Ranolazine [Ranexa -] 500 mg PO BID 02/01/16 Sennosides [Senna] 2 tab PO HS 02/01/16 Sodium Chloride [Saline Nasal [place]] 1 ml NS Q6H PRN 02/01/16 Topiramate [Topiramate ER] 150 mg PO BID 02/01/16 Torsemide [Demadex -] 40 mg PO DAILY 02/01/16 Tramadol HCl 50 mg PO Q6H PRN 02/01/16 Verapamil HCl [Verapamil ER] 240 mg PO DAILY 02/01/16 Warfarin Na [Coumadin -] 12 mg PO HS 02/01/16 Review of Systems - Review of Systems Able to Perform ROS?: Yes Comments:: 06/29/16 20:25 CONSTITUTIONAL: +fatigue, generalized weakness Absent: fever, chills, diaphoresis, malaise, loss of appetite HEENT: Absent: rhinorrhea, nasal congestion, throat pain, throat swelling, difficulty swallowing, ear pain, eye pain, visual Changes CARDIOVASCULAR: Absent: chest pain, syncope, palpitations, lightheadedness, peripheral edema RESPIRATORY: Absent: cough, shortness of breath, dyspnea with exertion, orthopnea, wheezing GASTROINTESTINAL: Absent: abdominal pain, abdominal distension, nausea, vomiting, diarrhea, constipation, melena, hematochezia GENITOURINARY: +vaginal bleeding Absent: dysuria, frequency, urgency, hesitancy, hematuria, flank pain, genital pain MUSCULOSKELETAL: Absent: myalgia, arthralgia, joint swelling SKIN: Absent: rash, itching, pallor NEUROLOGIC: +dizziness Absent: headache, focal weakness or paresthesias, seizure, mental status changes, bladder or bowel incontinence <Nu Julien - Last Filed: 06/30/16 01:58> *Physical Exam - Vital Signs Last Vital Signs Temp Pulse Resp BP Pulse Ox 98.3 F 68 18 139/75 95 06/29/16 17:37 06/29/16 17:37 06/29/16 17:37 06/29/16 17:37 06/29/16 17:37 <Romero Quinn - Last Filed: 06/30/16 00:59> - Vital Signs Last Vital Signs Temp Pulse Resp BP Pulse Ox 98.3 F 68 18 139/75 95 06/29/16 17:37 06/29/16 17:37 06/29/16 17:37 06/29/16 17:37 06/29/16 17:37 - Physical Exam Comments: 06/29/16 20:26 GENERAL: Well developed, well nourished. Awake and alert. No acute distress. HEENT: Normocephalic, atraumatic. PERRLA, EOMI. No conjunctival pallor. Sclera are non- icteric. Dry mucous membranes. Oropharynx is clear. NECK: Supple. Full ROM. No JVD. Carotid pulses 2+ and symmetric, without bruits. No thyromegaly. No lymphadenopathy. CARDIOVASCULAR: Regular rate and rhythm. No murmurs, rubs, or gallops. PULMONARY: No evidence of respiratory distress. Lungs clear to auscultation bilaterally. No wheezing, rales or rhonchi. ABDOMINAL: Soft. Obese. Mild right lower quadrant tenderness. Non-distended. No rebound or guarding. Normoactive bowel sounds. MUSCULOSKELETAL Normal range of motion at all joints. No bony deformities or tenderness. No CVA tenderness. EXTREMITIES: No cyanosis. No clubbing. No edema. No calf tenderness. SKIN: Warm and dry. Normal capillary refill. No rashes. No jaundice. NEUROLOGICAL: Alert, awake, appropriate. Cranial nerves 2-12 intact. Moving all extremities. No gross focal neurological deficits. <Nu Julien - Last Filed: 06/30/16 01:58> Heart Score/ECG Review - ECG Impressions Comment:: 06/29/16 22:41 NSR @60bpm RSR' or QR pattern in V1 suggests right ventricular conduction delay ST and T wave abnormality, consider anterior ischemia Abnormal ECG <Nu Julien - Last Filed: 06/30/16 01:58> ED Treatment Course - LABORATORY CBC & Chemistry Diagram: 06/29/16 21:35 06/29/16 21:35 <Romero Quinn - Last Filed: 06/30/16 00:59> - LABORATORY CBC & Chemistry Diagram: 06/29/16 21:35 06/29/16 21:35 <Nu Julien - Last Filed: 06/30/16 01:58> Medical Decision Making - Medical Decision Making 06/30/16 01:01 Dr. Quinn: The scribe's documentation has been prepared under my direction and personally reviewed by me in its entirery. I confirm that the note above accurately reflects all work, treatment, procedures, and medical decision making performed by me. <Romero Quinn - Last Filed: 06/30/16 00:59> - Medical Decision Making 06/29/16 22:[address] Jeffrey Corona covering for Dr. Tucker Toussaint (via answering service) at 22:39 Awaiting call back 06/29/16 23:51 Second call placed to Dr. Corona (via answering service) at 23:51 and patient's case was discussed. <Nu Julien - Last Filed: 06/30/16 01:58> *DC/Admit/Observation/Transfer - Discharge Dispostion Admit: No <Romero Quinn - Last Filed: 06/30/16 00:59> - Attestations Scribe Attestion: 06/29/16 20:26 Documentation prepared by Nu Julien, acting as medical management specialist for Romero Quinn MD <Nu Julien - Last Filed: 06/30/16 01:58> Diagnosis at time of Disposition: Afib, Anticoagulated - Discharge Dispostion Disposition: HOME Condition at time of disposition: Stable - Referrals Referrals: Jose España MD [Primary Care Provider] - - Patient Instructions Printed Discharge Instructions: Warfarin
[2016-06-29 22:08] LABS: BASOPHIL 1.2 % (0-2.0); EOSINOPHIL 2.6 % (0-4.5); MCH 27.8 pg (25.7-33.7); MCHC 32.6 g/dl (32.0-36.0); MEAN CELL VOLUME 85.3 fl (80-96); MEAN PLT VOLUME 9.8 fl (7.5-11.1); NEUTROPHILS 61.8 % (42.8-82.8); PLATELET COUNT 262 K/MM3 (134-434); RDW 17.4 % (11.6-15.6); WHITE BLOOD COUNT 9.9 K/mm3 (4.0-10.0)
[2016-06-29 22:24] LABS: PROTHROMBIN TIME (PATIENT) 49.8 SEC (9.98-11.88)
[2016-06-29 22:31] LABS: ALBUMIN 3.5 g/dl (3.4-5.0); ANION GAP 10 (8-16); CALCIUM 8.3 mg/dL (8.5-10.1); CO2 25 mmol/L (21-32); CREATININE 1.3 mg/dL (0.55-1.02); GLUCOSE,RANDOM 112 mg/dL (74-106); SGOT/AST 21 U/L (15-37); SGPT/ALT 28 U/L (12-78)
[2016-06-29 22:35] LABS: ALK PHOS 109 U/L (45-117); BILIRUBIN,TOTAL 0.3 mg/dL (0.2-1.0); TOT PROT 7.6 g/dl (6.4-8.2); TROPONIN I < 0.02 ng/ml (0.00-0.05)
[2016-06-29 22:37] LABS: INR 4.39 (0.82-1.09)
[2016-06-30 01:33] VITALS: BP 129/69; PULSE 90; TEMP 98.7
--- NOTE | 2016-06-30 09:19 | EKG ---
Test Reason : Blood Pressure : / mmHG Vent. Rate : 060 BPM Atrial Rate : 060 BPM P-R Int : 176 ms QRS Dur : 090 ms QT Int : 420 ms P-R-T Axes : 024 029 -02 degrees QTc Int : 420 ms NORMAL SINUS RHYTHM RSR' OR QR PATTERN IN V1 SUGGESTS RIGHT VENTRICULAR CONDUCTION DELAY ABNORMAL ECG WHEN COMPARED WITH ECG OF 22-MAY-2016 11:52, NO SIGNIFICANT CHANGE WAS FOUND Confirmed by MIRIAN MEDLEY MD ([id number]) on 06/30/2016 9:19:04 AM Referred By: Confirmed By:MIRIAN MEDLEY MD
== END | disposition home or self-care (01) ==
LOC: JER 17:33
DX: I48.91 Unspecified atrial fibrillation (principal); Z79.01 Long term (current) use of anticoagulants; I25.10 Atherosclerotic heart disease of native coronary artery without angina pectoris; I10 Essential (primary) hypertension; Z95.1 Presence of aortocoronary bypass graft; Z95.5 Presence of coronary angioplasty implant and graft; J44.9 Chronic obstructive pulmonary disease, unspecified; J45.909 Unspecified asthma, uncomplicated; E78.00 Pure hypercholesterolemia, unspecified; Z95.2 Presence of prosthetic heart valve; Z86.73 Personal history of transient ischemic attack (TIA), and cerebral infarction without residual deficits; Z91.81 History of falling; E11.9 Type 2 diabetes mellitus without complications; Z79.4 Long term (current) use of insulin
CPT/HCPCS: 36415; 71010-TC; 80053; 82550; 84484; 85025; 85610; 85730; 86850; 86900; 86901; 93005; 93010; 99282-25

== ENCOUNTER 2016-08-25 19:50 | Inpatient (IN) | payer OTHER ==
--- NOTE | 2016-08-25 20:19 | PDOC ---
History of Present Illness - General History Source: Patient Exam Limitations: No Limitations - History of Present Illness Initial Comments: 08/25/16 21:29 The patient is a 66 year old female with a significant past medical history of spinal stenosis, anemia, asthma, hypertension, hyperlipidemia, diabetes, CHF, CAD s/p stents x2, A-Fib (on coumadin), mitral valve replacements, stents x2, COPD, and CVA (multiple TIAs) who presents to the ED with complaints of left knee pain for several days. The patient reports she has chronic left knee pain and got an injection from her pain management MD on Sunday. Since Sunday, the patient reports progressively worsening left knee pain and edema. She states she uses a walker at baseline but cannot walk or stand secondary to left knee pain. She reports generalized lower back pain associated with present symptoms. Patient also reports a bilateral nose bleed this morning. She reports putting cotton pads with vaseline up her nostrils until the bleeding subsided. Denies fevers or chills. Denies nausea, vomiting, or diarrhea. Denies chest pain or shortness of breath. Denies any other symptoms. PMD: Dr. España Pain management MD: Dr. Jonathan Connelly hx: The patient reports heavy lifting at work and from carrying her children. <Bonilla Wing - Last Filed: 08/25/16 21:29> <Randi Brothers - Last Filed: 08/26/16 06:46> - General Stated Complaint: PAIN AND NUMBNESS Time Seen by Provider: 08/25/16 20:09 Past History <Bonilla Wing - Last Filed: 08/25/16 21:29> - Past Medical History Anemia: Yes Asthma: Yes Cardiac Disorders: Yes (mitral valve replacement, stents x2,a-fib, CAD) CVA: Yes (MULTIPLE TIAs) COPD: Yes (Yes, O2 2L-3L) CHF: Yes Diabetes: Yes GI Disorders: Yes (ulcers, GI bleed, hemorrhoids, diverticulosis) Disorders: Yes (bladder mesh) HTN: Yes Hypercholesterolemia: Yes Suicide Attempt (Hx): No Seizures: Yes Thyroid Disease: No - Surgical History Appendectomy: Yes Cardiac Surgery: Yes (stentsx2, mitral valve replacement, CABG) Cholecystectomy: Yes - Immunization History Immunization Up to Date: Yes - Psycho/Social/Smoking Cessation Hx Anxiety: No Suicidal Ideation: No Smoking Status: No Smoking History: Never smoked Have you smoked in the past 12 months: No Number of Cigarettes Smoked Daily: 0 If you are a former smoker, when did you quit?: many years Hx Alcohol Use: No Drug/Substance Use Hx: No Substance Use Type: None Hx Substance Use Treatment: No <BrothersGela bellRandi - Last Filed: 08/26/16 06:46> - Past Medical History Allergies/Adverse Reactions: Allergies Allergy/AdvReac Type Severity Reaction Status Date / Time lactose Allergy Mild Verified 06/29/16 17:40 Beta-Blockers Allergy Verified 06/29/16 17:40 (Beta-Adrenergic Bloc Iodinated Contrast Media - Allergy Verified 06/29/16 17:40 Oral and [IV Dye, Iodine Containing Contrast ] shellfish derived Allergy Verified 06/29/16 17:40 Home Medications: Ambulatory Orders Albuterol 0.083% Nebulizer Brigitte [Ventolin 0.083% Nebulizer Soln -] 1 neb NEB QID 02/01/16 Bupropion HBr [Aplenzin] 300 mg PO DAILY 02/01/16 Carbidopa/Levodopa [Carbidopa-Levodopa 25-100 Tab] 1 each PO AC 02/01/16 Cholecalciferol (Vitamin D3) [Vitamin D3] 5,000 unit PO WEEKLY 02/01/16 Citalopram Hydrobromide [Citalopram HBr] 10 mg PO HS 02/01/16 Digoxin [Lanoxin -] 0.125 mg PO DAILY 02/01/16 Docusate Sodium [Colace -] 100 mg PO TID 02/01/16 Enoxaparin Sodium [Lovenox] 100 mg SQ BID 02/01/16 Ferrous Sulfate [Feosol] 325 mg PO DAILY 02/01/16 Fluticasone Propionate [Flonase Allergy Relief] 2 inh NS BID 02/01/16 Insulin Detemir [Levemir Flextouch] 30 units SQ DAILY 02/01/16 Insulin Sliding Scale [Novolog Vial Sliding Scale -] 0 units SQ ACHS 02/01/16 Montelukast Na [Singulair -] 10 mg PO HS 02/01/16 [place]-3 Acid Ethyl Esters [Lovaza] 1 gm PO BID 02/01/16 Omeprazole 20 mg PO DAILY 02/01/16 Oxycodone HCl 5 mg PO BID PRN 02/01/16 Polyethylene Glycol 3350 [Miralax 119 gm Btl -] 17 gm PO DAILY 02/01/16 Potassium Chloride 40 meq PO DAILY 02/01/16 Pramipexole Di-HCl [Pramipexole Dihydrochloride] 0.75 mg PO DAILY 02/01/16 Pramipexole Di-HCl [Pramipexole Dihydrochloride] 1.5 mg PO HS 02/01/16 Ranolazine [Ranexa -] 500 mg PO BID 02/01/16 Sennosides [Senna] 2 tab PO HS 02/01/16 Sodium Chloride [Saline Nasal [place]] 1 ml NS Q6H PRN 02/01/16 Topiramate [Topiramate ER] 150 mg PO BID 02/01/16 Torsemide [Demadex -] 40 mg PO DAILY 02/01/16 Tramadol HCl 50 mg PO Q6H PRN 02/01/16 Verapamil HCl [Verapamil ER] 240 mg PO DAILY 02/01/16 Warfarin Na [Coumadin -] 12 mg PO HS 02/01/16 Review of Systems - Review of Systems Able to Perform ROS?: Yes Comments:: 08/25/16 21:29 CONSTITUTIONAL: Absent: fever, chills, diaphoresis, generalized weakness, malaise, loss of appetite HEENT: + nasal bleed Absent: nasal congestion, throat pain, throat swelling, difficulty swallowing, mouth swelling, ear pain, eye pain, visual Changes CARDIOVASCULAR: Absent: chest pain, syncope, palpitations, irregular heart rate, lightheadedness , peripheral edema RESPIRATORY: Absent: cough, shortness of breath, dyspnea with exertion, orthopnea, wheezing, stridor, hemoptysis GASTROINTESTINAL: Absent: abdominal pain, abdominal distension, nausea, vomiting, diarrhea, constipation, melena, hematochezia GENITOURINARY: Absent: dysuria, frequency, urgency, hesitancy, hematuria, flank pain, genital pain MUSCULOSKELETAL: + left knee pain, left knee swelling, back pain SKIN: Absent: rash, itching, pallor HEMATOLOGIC/IMMUNOLOGIC: Absent: easy bleeding, easy bruising, lymphadenopathy, frequent infections ENDOCRINE: Absent: unexplained weight gain, unexplained weight loss, heat intolerance, cold intolerance NEUROLOGIC: Absent: headache, focal weakness or paresthesias, dizziness, unsteady gait, seizure, mental status changes, bladder or bowel incontinence PSYCHIATRIC: Absent: anxiety, depression, suicidal or homicidal ideation, hallucinations. All Other Systems: Reviewed and Negative <Bonilla Wing - Last Filed: 08/25/16 21:29> *Physical Exam - Vital Signs Last Vital Signs Temp Pulse Resp BP Pulse Ox 98.7 F 74 18 148/79 100 08/25/16 20:31 08/25/16 20:38 08/25/16 20:31 08/25/16 20:31 08/25/16 20:38 - Physical Exam Comments: 08/25/16 21:29 GENERAL: Well developed, well nourished. Awake and alert. No acute distress. HEENT: + Dried blood present on the right nostril at the tip. Normocephalic, atraumatic. PERRLA, EOMI. No conjunctival pallor. Sclera are non-icteric. Moist mucous membranes. Oropharynx is clear. NECK: Supple. Full ROM. No JVD. Carotid pulses 2+ and symmetric, without bruits. No thyromegaly. NCo lymphadenopathy. CARDIOVASCULAR: Regular rate and rhythm. No murmurs, rubs, or gallops. Distal pulses are 2+ and symmetric. PULMONARY: No evidence of respiratory distress. Lungs clear to auscultation bilaterally. No wheezing, rales or rhonchi. ABDOMINAL: Soft. Non-tender. Non-distended. No rebound or guarding. No organomegaly. Normoactive bowel sounds. MUSCULOSKELETAL Normal range of motion at all joints. No bony deformities or tenderness. No CVA tenderness. EXTREMITIES: + non-ambulatory. There was swelling and warmth at the lateral aspect of the left knee surrounding the injection site. Intense pain of the left lower extremity with movement, intense pain on light touch to the left knee. No redness, No pain, swelling, or redness in the right leg. SKIN: Warm and dry. Normal capillary refill. No rashes. No jaundice. NEUROLOGICAL: Alert, awake, appropriate. Cranial nerves 2-12 intact. No deficits to light touch and temperature in face, upper extremities and lower extremities. No motor deficits in the in face, upper extremities and lower extremities. Normoreflexic in the upper and lower extremities. Normal speech. Toes are down- going bilaterally. PSYCHIATRIC: Cooperative. Good eye contact. Appropriate mood and affect. <Bonilla Wing - Last Filed: 08/25/16 21:29> ED Treatment Course - LABORATORY CBC & Chemistry Diagram: 08/25/16 21:20 08/25/16 21:20 <Bonilla Wing - Last Filed: 08/25/16 21:29> - LABORATORY CBC & Chemistry Diagram: 08/25/16 21:20 08/25/16 21:20 <Randi Brothers - Last Filed: 08/26/16 06:46> Medical Decision Making - Medical Decision Making 08/26/16 06:43 Pt comes with hot and painful and swollen knee after having an intraarticular injection earlier in the week. Pt is on coumadin, and the swelling may be a hematoma, or may be an infection. There is no way to determine what the swelling is due to at this time. Pt will be admitted, as she is unable to ambulate and has severe pain with movement of the left knee joint. She will be given pain meds, abx, and admission for ortho consultation and further imaging to identify what is causing the knee pain. Knee may require another tap for further assessment. PMD is aware of the admission. <Randi Brothers - Last Filed: 08/26/16 06:46> *DC/Admit/Observation/Transfer - Attestations Scribe Attestion: 08/25/16 21:30 Documentation prepared by Bonilla Wing, acting as medical professionals for Randi Brothers MD <Bonilla Wing - Last Filed: 08/25/16 21:29> - Discharge Dispostion Admit: Yes <Randi Brothers - Last Filed: 08/26/16 06:46> Diagnosis at time of Disposition: Inability to ambulate due to knee, Infection of knee, Afib, Epistaxis, Anticoagulated - Referrals
[2016-08-25] MEDS ORDERED: morphine CARPU-JECT 2 MG/1 ML DISP.SYRIN IVPUSH ONE (21:26)
[2016-08-25] MEDS ORDERED: PIPERACILLIN/TAZOB 3.375 GM 3.375 GM in DEXTROSE 5%-WATER - 50 ML IVPB ONE (21:28)
[2016-08-25 21:29] LABS: EOSINOPHIL 2.6 % (0-4.5); MCH 27.1 pg (25.7-33.7); MCHC 31.2 g/dl (32.0-36.0); MEAN CELL VOLUME 86.8 fl (80-96); MEAN PLT VOLUME 9.4 fl (7.5-11.1); NEUTROPHILS 68.9 % (42.8-82.8); PLATELET COUNT 248 K/MM3 (134-434); WHITE BLOOD COUNT 10.8 K/mm3 (4.0-10.0)
[2016-08-25] MEDS ORDERED: PIPERACILLIN/TAZOB 3.375 GM 50 ML IVPB ONE (21:50)
[2016-08-25] MEDS ORDERED: morphine CARPU-JECT 2 MG/1 ML DISP.SYRIN ONE (21:50)
[2016-08-25 21:59] LABS: INR 2.81 (0.82-1.09); PROTHROMBIN TIME (PATIENT) 31.6 SEC (9.98-11.88)
[2016-08-25 22:00] LABS: ALBUMIN 3.3 g/dl (3.4-5.0); ANION GAP 7 (8-16); BILIRUBIN,TOTAL 0.3 mg/dL (0.2-1.0); CALCIUM 8.5 mg/dL (8.5-10.1); CO2 23 mmol/L (21-32); COCKROFT - GAULT 83.9375; GLUCOSE,RANDOM 152 mg/dL (74-106); SGOT/AST 13 U/L (15-37); SGPT/ALT 33 U/L (12-78)
[2016-08-25 22:02] LABS: ALK PHOS 90 U/L (45-117); TROPONIN I < 0.02 ng/ml (0.00-0.05)
[2016-08-26] MEDS ORDERED: SODIUM CHLORIDE NASAL SPRAY 44 ML BOTTLE NS PRN (00:02)
[2016-08-26] MEDS ORDERED: ALBUTEROL SO4 2.5/IPRATROPIUM 0.5 INH SOL 3 ML VIAL.NEB. NEB PRN (00:02)
[2016-08-26 02:21] VITALS: BMI 40.1
[2016-08-26] MEDS ORDERED: oxyCODONE HCL 5 MG TABLET ONE (02:24)
[2016-08-26] MEDS: ACETAMINOPHEN 325 MG TABLET (FP) PO PRN ×3 (02:25→16:16)
[2016-08-26 07:11] LABS: MCH 28.1 pg (25.7-33.7); MCHC 32.2 g/dl (32.0-36.0); MEAN CELL VOLUME 87.4 fl (80-96); MEAN PLT VOLUME 9.3 fl (7.5-11.1); PLATELET COUNT 241 K/MM3 (134-434); RDW 15.9 % (11.6-15.6); WHITE BLOOD COUNT 11.4 K/mm3 (4.0-10.0)
[2016-08-26 07:51] LABS: ALBUMIN 3.1 g/dl (3.4-5.0); BILIRUBIN,TOTAL 0.4 mg/dL (0.2-1.0); CALCIUM 8.6 mg/dL (8.5-10.1); COCKROFT - GAULT 85.187; TOT PROT 6.5 g/dl (6.4-8.2)
[2016-08-26] MEDS: INSULIN SLIDING SCALE (NOVOLOG) 1 VIAL SQ SCH ×4 (08:38→21:23)
[2016-08-26] MEDS: traMADol HCL 50 MG TABLET PO PRN ×2 (08:50→20:15)
[2016-08-26] MEDS: FERROUS SO4 325 MG TABLET (FP) PO SCH ×2 (08:53→11:42)
[2016-08-26] MEDS: RANOLAZINE E.R. 500 MG TABLET (FP) PO SCH ×3 (08:53→21:17)
[2016-08-26] MEDS: PANTOPRAZOLE 40 MG TABLET (FP) PO SCH ×2 (08:53→11:42)
[2016-08-26] MEDS: VERAPAMIL HCL 240 MG E.R. TABLET (FP) PO SCH ×2 (08:54→11:42)
[2016-08-26] MEDS: DIGOXIN 0.125 MG TABLET (FP) PO SCH ×2 (08:54→11:42)
[2016-08-26] MEDS: TOPIRAMATE 100 MG TABLET PO SCH ×2 (08:59→21:16)
[2016-08-26 09:29] LABS: ERYTHROCYTE SEDIMENTATION RATE 48 mm/hr (0-30)
--- NOTE | 2016-08-26 09:31 | HP ---
Admitting History and Physical - Primary Care Physician PCP: Tucker Toussaint - Admission Chief Complaint: INFECTED RIGHT KNEE/SEPTIC JOINT History of Present Illness: The patient is a 66 year old female with a significant past medical history of spinal stenosis, anemia, asthma, hypertension, hyperlipidemia, diabetes, CHF, CAD s/p stents x2, A-Fib (on coumadin), mitral valve replacements, stents x2, COPD, and CVA (multiple TIAs) who presents to the ED with complaints of left knee pain for several days. The patient reports she has chronic left knee pain and got an injection from her pain management MD on Sunday. Since Sunday, the patient reports progressively worsening left knee pain and edema. She states she uses a walker at baseline but cannot walk or stand secondary to left knee pain. She reports generalized lower back pain associated with present symptoms. Patient also reports a bilateral nose bleed this morning. She reports putting cotton pads with vaseline up her nostrils until the bleeding subsided. Denies fevers or chills. Denies nausea, vomiting, or diarrhea. Denies chest pain or shortness of breath. 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, Other (light-headedness and dizziness) Cardiovascular: Yes: AFIB, CAD, CHF, HTN, Hyperlipdemia, Other (S/P [facility] mitral valve replacement) Pulmonary: Yes: Asthma, COPD, Sleep Apnea (on CPAP at night) Gastrointestinal: Yes: Constipation, Diverticulosis, GI Bleed, Hemorrhoids Heme/Onc: Yes: Anemia Musculoskeletal: Yes: Chronic low back pain, Other (Spinal stenosis) Rheumatology: Yes: Lupus, Other (APLAS (BOTH LUPUS AND APLS ARE QUESTIONABLE)) Endocrine: Yes: Diabetes Mellitus - Past Surgical History Past Surgical History: Yes: CABG, Cholecystectomy, Hysterectomy, Oopherectomy - Smoking History Smoking history: Never smoked Have you smoked in the past 12 months: No Aproximately how many cigarettes per day: 0 If you are a former smoker, when did you quit?: many years - Alcohol/Substance Use Hx Alcohol Use: No History of Substance Use: reports: None - Social History ADL: Independent Home Medications - Allergies Allergies/Adverse Reactions: Allergies Allergy/AdvReac Type Severity Reaction Status Date / Time lactose Allergy Mild Verified 06/29/16 17:40 Beta-Blockers Allergy Verified 06/29/16 17:40 (Beta-Adrenergic Bloc Iodinated Contrast Media - Allergy Verified 06/29/16 17:40 Oral and [IV Dye, Iodine Containing Contrast ] shellfish derived Allergy Verified 06/29/16 17:40 - Home Medications Home Medications: Ambulatory Orders Albuterol 0.083% Nebulizer Brigitte [Ventolin 0.083% Nebulizer Soln -] 1 neb NEB QID 02/01/16 Bupropion HBr [Aplenzin] 300 mg PO DAILY 02/01/16 Carbidopa/Levodopa [Carbidopa-Levodopa 25-100 Tab] 1 each PO AC 02/01/16 Cholecalciferol (Vitamin D3) [Vitamin D3] 5,000 unit PO WEEKLY 02/01/16 Citalopram Hydrobromide [Citalopram HBr] 10 mg PO HS 02/01/16 Digoxin [Lanoxin -] 0.125 mg PO DAILY 02/01/16 Docusate Sodium [Colace -] 100 mg PO TID 02/01/16 Enoxaparin Sodium [Lovenox] 100 mg SQ BID 02/01/16 Ferrous Sulfate [Feosol] 325 mg PO DAILY 02/01/16 Fluticasone Propionate [Flonase Allergy Relief] 2 inh NS BID 02/01/16 Insulin Detemir [Levemir Flextouch] 30 units SQ DAILY 02/01/16 Insulin Sliding Scale [Novolog Vial Sliding Scale -] 0 units SQ ACHS 02/01/16 Montelukast Na [Singulair -] 10 mg PO HS 02/01/16 [place]-3 Acid Ethyl Esters [Lovaza] 1 gm PO BID 02/01/16 Omeprazole 20 mg PO DAILY 02/01/16 Oxycodone HCl 5 mg PO BID PRN 02/01/16 Polyethylene Glycol 3350 [Miralax 119 gm Btl -] 17 gm PO DAILY 02/01/16 Potassium Chloride 40 meq PO DAILY 02/01/16 Pramipexole Di-HCl [Pramipexole Dihydrochloride] 0.75 mg PO DAILY 02/01/16 Pramipexole Di-HCl [Pramipexole Dihydrochloride] 1.5 mg PO HS 02/01/16 Ranolazine [Ranexa -] 500 mg PO BID 02/01/16 Sennosides [Senna] 2 tab PO HS 02/01/16 Sodium Chloride [Saline Nasal [place]] 1 ml NS Q6H PRN 02/01/16 Topiramate [Topiramate ER] 150 mg PO BID 02/01/16 Torsemide [Demadex -] 40 mg PO DAILY 02/01/16 Tramadol HCl 50 mg PO Q6H PRN 02/01/16 Verapamil HCl [Verapamil ER] 240 mg PO DAILY 02/01/16 Warfarin Na [Coumadin -] 12 mg PO HS 02/01/16 Family Disease History - Family Disease History Family Disease History: Diabetes: Grandparent, Mother, Heart Disease: Father, Other: Sister (Lupus) Review of Systems - Review of Systems Constitutional: reports: Fever Eyes: reports: No Symptoms HENT: reports: No Symptoms, Ringing in Ears Cardiovascular: reports: Shortness of Breath Respiratory: reports: Orthopnea, SOB Genitourinary: reports: No Symptoms Musculoskeletal: reports: Joint Pain, Joint Swelling Integumentary: reports: Erythema Neurological: reports: No Symptoms Endocrine: reports: No Symptoms Hematology/Lymphatic: reports: No Symptoms Psychiatric: reports: No Symptoms Physical Examination Vital Signs: Vital Signs Temperature 97.7 F 08/26/16 08:44 Pulse Rate 72 08/26/16 08:54 Respiratory Rate 18 08/26/16 08:44 Blood Pressure 164/59 08/26/16 08:44 O2 Sat by Pulse Oximetry (%) 100 08/26/16 01:49 Constitutional: Yes: Moderate Distress Eyes: Yes: WNL HENT: Yes: WNL Neck: Yes: WNL Cardiovascular: Yes: WNL Respiratory: Yes: WNL Gastrointestinal: Yes: WNL Renal/: Yes: WNL Musculoskeletal: Yes: Joint Swelling, Muscle Weakness Extremities: Yes: Erythema Edema: Yes Integumentary: Yes: Erythema Wound/Incision: Yes: Other Neurological: Yes: Other ...Motor Strength: LLE Labs: CBC, BMP 08/26/16 06:00 08/26/16 06:00 Problem List - Problems (1) Afib Code(s): I48.91 - UNSPECIFIED ATRIAL FIBRILLATION (2) Diabetes Code(s): E11.9 - TYPE 2 DIABETES MELLITUS WITHOUT COMPLICATIONS Qualifiers: Diabetes mellitus complication status: with neurologic complications (3) Cellulitis Code(s): L03.90 - CELLULITIS, UNSPECIFIED Qualifiers: Site of cellulitis of extremity: lower extremity Laterality: left (4) Septic joint of left knee joint Code(s): M00.9 - PYOGENIC ARTHRITIS, UNSPECIFIED Assessment/Plan ORTHOPEDIC CONSULT MAY NEED ASPIRATION OF KNEE IV ABX PAIN CONTROL SSI BGM CONTROL ID CONSULT
[2016-08-26] MEDS ORDERED: TOPIRAMATE 100 MG TABLET PO SCH (10:00)
[2016-08-26] MEDS ORDERED: ENOXAPARIN NA (PORCINE) 100 MG/1 ML DISP.SYRIN SQ SCH (10:00)
[2016-08-26] MEDS ORDERED: oxyCODONE HCL 5 MG TABLET PO SCH (10:00)
[2016-08-26] MEDS: LIDOCAINE 5% TOPICAL PATCH TP SCH (11:41)
[2016-08-26] MEDS: oxyCODONE HCL 10 MG SUSTAINED ACTING TABLET PO SCH ×2 (11:41→22:39)
[2016-08-26] MEDS: DOCUSATE SODIUM 100 MG CAPSULE (FP) PO SCH ×2 (11:42→21:13)
--- NOTE | 2016-08-26 11:48 | PN ---
Progress Note (short form) - Note Progress Note: Pt seen and examined. She is a 66 year old female with multiple medical problems including diabetes, who had a gel injection into the left knee (by another physician) 2 days ago, and since then has had increasing swelling and pain in the left knee. Pain has increased, ROM is limited, and she cannot weight bear. She was diagnosed with an expanding hematoma of the left iliopsoas. AVSS Labs WBC = 11.4 ESR = 48 INR = 2.81 * Blood Cx Pending PE Left knee does not look infected. It is swollen and tender, but not red, or hot. + joint effusion Very limited ROM bc of pain, Pt has a very low pain threshold. LLE looks grossly NVI, no deformity. CT scan Show only a resolving left iliopsoas hematoma, improving No acute bony pathology including fracture or dislocation Imp Post traumatic (needle injection) hematoma left knee, high INR. Rec Under sterile conditions I aspirated pure blood, no pus. 2 culture sticks sent off anyway. Blood was very thick and difficult to get out through the needle. It is draining a bit, which is good. Recommend getting INR down if medically prudent. Recommend P.T. for ambulation and ROM, WBAT, no specific restrictions
--- NOTE | 2016-08-26 12:24 | PN ---
Progress Note (short form) - Note Progress Note: ID consult dictated imp/reccd 66 year old female with lupus, dm, cad, prosthetic MVR admitted with severe knee pain after knee injection on Sunday- unable to walk notes she felt unwell after the procedure and went to bed daughter took her temp - 101 at home notes urine was smelly- she intermittently self catheterizes at home +dysuria in ED no fevers noted to have pain and knee swelling blood cultures sent arthrocentesis today - blood- hemarthroses most likely due to a/c from coumadin with history of fever, and urinary complaints would obtain ua and culture blood culture and blood from knee have been sent to the lab plan for vancomycin and ceftriaxone hemarthroses- r/o infected knee-less likely lpossible uti- check ua and urine culture Problem List - Problems (1) Hemarthrosis Code(s): M25.00 - HEMARTHROSIS, UNSPECIFIED JOINT
[2016-08-26] MEDS: cefTRIAXone 1 GM/50 ML BAG (PRE-DOCKED) IVPB SCH (13:24)
[2016-08-26] MEDS: VANCOMYCIN 1 GRAM (PRE-DOCKED) 1,000 MG/250 ML BAG IVPB SCH (13:24)
--- NOTE | 2016-08-26 14:00 | CONS ---
DATE OF CONSULTATION: REQUESTING PHYSICIAN: Mikayla Baxter MD HISTORY: This is a 66-year-old woman with past medical history of diabetes, coronary artery disease. She has a history of mitral valve replacement and CABG in 2005. She has a history of antiphospholipid antibody, per patient. She presents to the emergency room with complaints of left knee pain. On Sunday, she received a gel injection of her left knee. After she got home, she started having severe pain. She could not walk. She reports that at home her daughter took her temperature, and she had a fever of 101. She also had a nosebleed and came to the emergency room. She reports that she off and on has an intermittently low-grade fever, but this 101 was unusual. She reports severe pain in the left knee. She had no fever in the emergency room. She had an x-ray done in the emergency room, which showed a suprapatellar effusion. It was tapped this morning by Orthopaedics, and she had anastasiya blood. She is on Coumadin for her atrial fibrillation and her valve and had cultures sent, though per Orthopaedics there was no purulent discharge. PAST MEDICAL HISTORY: Notable for CVA, migraines. She has a history of atrial fibrillation, coronary artery disease, heart failure, hypertension, hyperlipidemia, asthma, COPD, sleep apnea, constipation, diverticulosis, GI bleed, hemorrhoids, anemia, chronic low back pain, spinal stenosis, lupus she reports with anticardiolipin and antiphospholipid antibody being positive. PAST SURGICAL HISTORY: Notable for CABG and mechanical valve replacement in 2005. She is status post cholecystectomy, hysterectomy, and oophorectomy. ALLERGIES: BETA-BLOCKERS, IODINE, SHELLFISH, and LACTOSE. MEDICATIONS: At home include albuterol, Bupropion, carbidopa/levodopa, vitamin D, Celexa, digoxin, Colace, ferrous sulfate, Levemir, Singulair, oxycodone, omeprazole. She is on Ranexa, Mirapex, Topamax, Ultram, Coumadin, and verapamil as well as insulin. She is on Levemir insulin as well as sliding scale. She uses a Lidoderm patch. FAMILY HISTORY: Notable for lupus in cousins and her sister. SOCIAL HISTORY: She lives at home with her family. There is no history of any substance use. There is no history of any cigarette smoking. REVIEW OF SYSTEMS: As per HPI. 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 She has had this ongoing nausea and abdominal discomfort for the last 1 year. Acutely she has had this left knee pain. PHYSICAL EXAMINATION: General: She is awake and alert. Vital Signs: Temperature 97.7. She has had no fever since admission. Pulse 73, blood pressure 164/59, respiratory rate 18. She is saturating 100%. HEENT: She is normocephalic. Her eyes are anicteric. Neck: Supple. Lungs: Clear to auscultation. Heart: Regular rate and rhythm. Abdomen: Soft and nontender. Extremities: Notable for she is having active bloody drainage from her left knee, which she describes as quite painful. There is minimal erythema. Mainly there is just blood. LABORATORIES: Notable for white count 11.4, hemoglobin 11.8, platelets 241, INR 2.8, BUN 14, creatinine 1. LFTs are normal. Blood cultures are pending. She received a dose of Zosyn last night. I would suggest, given the fact that to me she gives a history of having an isolated temperature at home after the procedure, that we continue her on antibiotics until blood cultures as well as cultures from the knee are back. Would give her vancomycin at this time. Further recommendations to follow based on her clinical course. PRIETO FLEMING M.D. [id number]
[2016-08-26 14:25] LABS: URINE APPEARANCE SLCLOUDY; URINE BILIRUBIN NEGATIVE (NEGATIVE); URINE COLOR YELLOW; URINE GLUCOSE (UA) NEGATIVE (NEGATIVE); URINE KETONE NEGATIVE (NEGATIVE); URINE NITRITE NEGATIVE (NEGATIVE); URINE PROTEIN NEGATIVE (NEGATIVE); URINE UROBILINOGEN NEGATIVE E.U./dl (0.2-1.0)
[2016-08-26 14:27] LABS: URINE BLOOD 2+ (NEGATIVE); URINE LEUK ESTERASE 2+ (NEGATIVE)
[2016-08-26 14:28] LABS: URINE MUCUS RARE; URINE RBC 52 /hpf (0-3); URINE WBC 150 /hpf (3-5)
--- NOTE | 2016-08-26 15:31 | EKG ---
Test Reason : Blood Pressure : / mmHG Vent. Rate : 077 BPM Atrial Rate : 077 BPM P-R Int : 162 ms QRS Dur : 088 ms QT Int : 366 ms P-R-T Axes : 040 052 001 degrees QTc Int : 414 ms NORMAL SINUS RHYTHM RSR' OR QR PATTERN IN V1 SUGGESTS RIGHT VENTRICULAR CONDUCTION DELAY ABNORMAL ECG WHEN COMPARED WITH ECG OF 29-JUN-2016 22:31, NO SIGNIFICANT CHANGE WAS FOUND Confirmed by JOSESITO MEZA, REESE ([id number]) on 08/26/2016 3:30:53 PM Referred By: Confirmed By:REESE BELLAMY MD
[2016-08-26] MEDS: oxyCODONE HCL 5 MG TABLET PO PRN (16:15)
[2016-08-26] MEDS: CITALOPRAM HYDROBROMIDE 10 MG TABLET (FP) PO SCH (18:01)
[2016-08-26] MEDS: FLUTICASONE PROP 0.05% 16 GM NASAL SPRAY NS SCH (18:01)
[2016-08-26] MEDS: WARFARIN NA 3 MG TABLET PO SCH (18:05)
[2016-08-26] MEDS ORDERED: PT OWN MED DRAWER 7, Y5N ONE (21:11)
[2016-08-26] MEDS: SENNOSIDES 8.6MG TABLET (FP) PO SCH (21:12)
[2016-08-26] MEDS: CARBIDOPA/LEVODOPA 25/100 TABLET (FP) PO SCH (21:13)
[2016-08-26] MEDS: MONTELUKAST NA 10 MG TABLET PO SCH (21:13)
[2016-08-26] MEDS: INSULIN DETEMIR 100 UNITS/ML MDV SQ SCH (21:33)
[2016-08-26] MEDS: PRAMIPEXOLE DIHYDROCHLORIDE 1.5 MG TABLET PO SCH (21:34)
[2016-08-26] MEDS ORDERED: DOCUSATE SODIUM 100 MG CAPSULE (FP) PO SCH (22:00)
[2016-08-26] MEDS: LIDOCAINE PATCH REMOVAL MC SCH (22:44)
[2016-08-27] MEDS: VANCOMYCIN 1 GRAM (PRE-DOCKED) 1,000 MG/250 ML BAG IVPB SCH ×2 (00:36→13:00)
[2016-08-27] MEDS: ACETAMINOPHEN 325 MG TABLET (FP) PO PRN (02:21)
[2016-08-27] MEDS: INSULIN SLIDING SCALE (NOVOLOG) 1 VIAL SQ SCH ×4 (06:46→22:33)
[2016-08-27] MEDS: oxyCODONE HCL 5 MG TABLET PO PRN ×2 (06:50→14:10)
--- NOTE | 2016-08-27 08:12 | PN ---
Progress Note (short form) - Note Progress Note: knee has stopped draining more swollen now complains of pain Vital Signs Period Temp Pulse Resp BP Sys/Wise Pulse Ox Last 24 Hr 97.7 F-98.4 F 60-73 18-20 116-164/54-59 100-100 cor-rrr lungs clear abd soft,nt ext no erythema +swelling lateral aspect of left knee CBC, BMP 08/26/16 06:00 08/26/16 06:00 Microbiology 08/25/16 21:05 Blood - Peripheral Venous Blood Culture - Preliminary NO GROWTH OBTAINED AFTER 24 HOURS, INCUBATION TO CONTINUE FOR 4 DAYS. 08/25/16 21:27 Blood - Peripheral Venous Blood Culture - Preliminary NO GROWTH OBTAINED AFTER 24 HOURS, INCUBATION TO CONTINUE FOR 4 DAYS. a/p hemarthroses- r/o infected knee-less likely- vanco trough, check INR (ordered), ortho f/u possible uti- check ua and urine culture-sent -on rocephin history of prosthetic MVR- on coumadin
[2016-08-27] MEDS: LIDOCAINE 5% TOPICAL PATCH TP SCH (09:28)
[2016-08-27] MEDS: DIGOXIN 0.125 MG TABLET (FP) PO SCH (09:30)
[2016-08-27] MEDS: VERAPAMIL HCL 240 MG E.R. TABLET (FP) PO SCH (09:30)
[2016-08-27] MEDS: PANTOPRAZOLE 40 MG TABLET (FP) PO SCH (09:30)
[2016-08-27] MEDS: RANOLAZINE E.R. 500 MG TABLET (FP) PO SCH ×2 (09:30→22:24)
[2016-08-27] MEDS: FERROUS SO4 325 MG TABLET (FP) PO SCH (09:30)
[2016-08-27] MEDS: DOCUSATE SODIUM 100 MG CAPSULE (FP) PO SCH ×2 (09:31→22:23)
--- NOTE | 2016-08-27 09:33 | PN ---
Progress Note, Physician Chief Complaint: AWAKE IN PAIN DR ESPARZA NOTES REVIEWED S/P LEFT KNEE ASPIRATION YESTERDAY BY ORTHOPEDICS DR PATRICK BRAY, PROCEDURE NOTE REVIEWED - Current Medication List Current Medications: Active Medications Acetaminophen (Tylenol -) 650 mg PO Q6H PRN PRN Reason: FEVER OR PAIN Last Admin: 08/27/16 02:21 Dose: 650 mg Albuterol/Ipratropium (Duoneb -) 1 amp NEB Q6H PRN PRN Reason: SHORTNESS OF BREATH Bupropion HCl (Wellbutrin Xl -) 300 mg PO DAILY [facility] Last Admin: 08/26/16 18:01 Dose: 300 mg Carbidopa/Levodopa (Sinemet 25/100 -) 1 each PO HS [facility] Last Admin: 08/26/16 21:13 Dose: 1 each Ceftriaxone Sodium (Rocephin 1gm Ivpb (Pre-Docked)) 1 gm IVPB DAILY [facility] PRN Reason: Protocol Last Admin: 08/26/16 13:24 Dose: 1 gm Citalopram Hydrobromide (Celexa -) 10 mg PO DAILY [facility] Last Admin: 08/26/16 18:01 Dose: 10 mg Digoxin (Lanoxin -) 0.125 mg PO DAILY [facility] Last Admin: 08/26/16 11:42 Dose: Not Given Docusate Sodium (Colace -) 100 mg PO BID [facility] Last Admin: 08/26/16 21:13 Dose: 100 mg Docusate Sodium (Colace -) 300 mg PO HS [facility] Ferrous Sulfate (Feosol -) 325 mg PO DAILY [facility] Last Admin: 08/26/16 11:42 Dose: Not Given Fluticasone Propionate (Flonase -) 2 spray NS DAILY [facility] Last Admin: 08/26/16 18:01 Dose: 2 sprays Insulin Aspart (Novolog Vial Sliding Scale -) 1 vial SQ ACHS [facility] PRN Reason: Protocol Last Admin: 08/27/16 06:46 Dose: 2 units Insulin Detemir (Levemir Vial) 30 units SQ HS [facility] Last Admin: 08/26/16 21:33 Dose: 30 units Lidocaine (Lidoderm Patch -) 1 patch TP DAILY [facility] Last Admin: 08/26/16 11:41 Dose: 1 patch Miscellaneous (Lidoderm Patch Removal) 1 each MC DAILY@2200 [facility] Last Admin: 08/26/16 22:44 Dose: 1 each Montelukast Sodium (Singulair -) 10 mg PO HS [facility] Last Admin: 08/26/16 21:13 Dose: 10 mg Oxycodone HCl (Oxycontin -) 10 mg PO BID [facility] Last Admin: 08/26/16 22:39 Dose: 10 mg Oxycodone HCl (Roxicodone -) 5 mg PO Q6H PRN PRN Reason: PAIN Last Admin: 08/27/16 06:50 Dose: 5 mg Pantoprazole Sodium (Protonix -) 40 mg PO DAILY [facility] Last Admin: 08/26/16 11:42 Dose: Not Given Pramipexole Dihydrochloride (Mirapex -) 1.5 mg PO HS [facility] Last Admin: 08/26/16 21:34 Dose: 1.5 mg Ranolazine (Ranexa -) 500 mg PO BID [facility] Last Admin: 08/26/16 21:17 Dose: 500 mg Senna (Senna -) 1 tab PO HS [facility] Last Admin: 08/26/16 21:12 Dose: 1 tab Sodium Chloride ([place] Nasal [place] -) 2 spray NS BID PRN PRN Reason: NASAL CONGESTION Topiramate (Topamax -) 150 mg PO BID [facility] Last Admin: 08/26/16 21:16 Dose: 150 mg Tramadol HCl (Ultram -) 50 mg PO Q6H PRN PRN Reason: PAIN Last Admin: 08/26/16 20:15 Dose: 50 mg Vancomycin HCl (Vancomycin (Pre-Docked)) 1,000 mg IVPB BID@0000,1200 [facility] PRN Reason: Protocol Last Admin: 08/27/16 00:36 Dose: 1,000 mg Verapamil HCl ([place] Sr -) 240 mg PO DAILY [facility] Last Admin: 08/26/16 11:42 Dose: Not Given Warfarin Sodium (Coumadin -) 12 mg PO DAILY@1800 [facility] Last Admin: 08/26/16 18:05 Dose: 12 mg - Objective Vital Signs: Vital Signs Temperature 98.4 F 08/26/16 17:30 Pulse Rate 65 08/26/16 17:30 Respiratory Rate 20 08/26/16 17:30 Blood Pressure 116/54 08/26/16 17:30 O2 Sat by Pulse Oximetry (%) 100 08/26/16 21:00 Constitutional: Yes: Moderate Distress Eyes: Yes: WNL HENT: Yes: WNL Neck: Yes: WNL Cardiovascular: Yes: Murmur Respiratory: Yes: WNL Gastrointestinal: Yes: WNL Genitourinary: Yes: Incontinence Musculoskeletal: Yes: Joint Stiffness, Joint Swelling, Muscle Pain, Muscle Weakness Extremities: Yes: WNL Edema: No Peripheral Pulses WNL: Yes Integumentary: Yes: WNL Wound/Incision: Yes: Open to air Neurological: Yes: Other ...Motor Strength: LLE Labs: CBC, BMP 08/26/16 06:00 08/26/16 06:00 INR, PTT INR 2.81 (0.82-1.09) H D 08/25/16 21:20 Problem List - Problems (1) Afib Code(s): I48.91 - UNSPECIFIED ATRIAL FIBRILLATION (2) Diabetes Code(s): E11.9 - TYPE 2 DIABETES MELLITUS WITHOUT COMPLICATIONS Qualifiers: Diabetes mellitus complication status: with neurologic complications (3) Cellulitis Code(s): L03.90 - CELLULITIS, UNSPECIFIED Qualifiers: Site of cellulitis of extremity: lower extremity Laterality: left (4) Septic joint of left knee joint Code(s): M00.9 - PYOGENIC ARTHRITIS, UNSPECIFIED (5) S/P MVR (mitral valve repair) Code(s): Z98.890 - OTHER SPECIFIED POSTPROCEDURAL STATES Assessment/Plan PATIENT IN MODERATE DISTRESS MS CONTIN 10MG BID OXYCODONE 5MG Q6HRS ON COUMADIN FOR MVR HIGH RISK OF EMBOLI/THROMBUS IF AC HELD WILL DISCUSS WITH HEMATOLOGY FOR EVAL AND RECOMMENDATIONS
[2016-08-27] MEDS: cefTRIAXone 1 GM/50 ML BAG (PRE-DOCKED) IVPB SCH (09:36)
[2016-08-27] MEDS: oxyCODONE HCL 10 MG SUSTAINED ACTING TABLET PO SCH ×2 (09:36→22:21)
[2016-08-27] MEDS: CITALOPRAM HYDROBROMIDE 10 MG TABLET (FP) PO SCH (09:37)
[2016-08-27] MEDS: TOPIRAMATE 100 MG TABLET PO SCH ×2 (09:38→22:24)
[2016-08-27] MEDS: traMADol HCL 50 MG TABLET PO PRN (09:40)
[2016-08-27] MEDS: FLUTICASONE PROP 0.05% 16 GM NASAL SPRAY NS SCH (09:43)
[2016-08-27] MEDS ORDERED: PT OWN MED DRAWER 7, Y5N ONE ×3 (10:39→21:07)
[2016-08-27 12:20] LABS: INR 1.79 (0.82-1.09); PROTHROMBIN TIME (PATIENT) 19.9 SEC (9.98-11.88)
--- NOTE | 2016-08-27 15:47 | PN ---
Progress Note (short form) - Note Progress Note: Patient seen and examined Consult dictated 66 year old with multiple co-morbid medical problems. Had injection into left knee for pain management. Developed fatigue, weakness, low grade temp and arthrocentesis with hemarthrosis. . Patient has history of a/c on coumadin for prosthetic mitral valve replacement. In addition atrial fib. She is s/p CBG, multiple TIA's with history of HBP and HPL. There is a small window with mitral valve replacement where a/c can be with- held before increasing risk of microthrombi on the prosthetic valve. The competing feature is the hemarthrosis . I have discussed with patient and son the competing risks of the need to maintain a/c with coumadin for the prosthetic mitral valve vs the discontinuance. It has been discussed that coumadin would be maintained at a low therapeutic level as the termite helper risk of vascular thrombotic events off a/c is significant. Would suggest input from cardiology as well.
--- NOTE | 2016-08-27 16:58 | CONS ---
DATE OF CONSULTATION: 08/27/2016 This is a 66-year-old female who has multiple medical problems. There is a history of atrial fibrillation, on Coumadin, a history of prosthetic mitral valve replacement, a history of COPD, a history of cardiac stents x2, a history of multiple TIAs, a history of diabetes, a history of hyperlipidemia, CHF, coronary artery disease, hypertension, asthma. There is also a questionable history of lupus. There is a history of iron deficiency anemia, for which she has received iron therapy as well as a history of spinal stenosis. The patient received an injection in her left knee for pain and, thereafter, developed severe pain, low-grade temperature. She also had additional symptoms which included epistaxis. The patient had a knee aspiration, which revealed blood and possibility of infection is being entertained. Patient being followed by Infectious Disease. PAST MEDICAL HISTORY: As aforementioned, includes CVAs, migraine headaches, ASHD, coronary artery disease, CHF, hypertension, hyperlipidemia, atrial fibrillation, anticoagulation, and mechanical valve replacement. Patient has a history of sleep apnea, on CPAP. The patient has a history of GI bleeding, hemorrhoids, iron deficiency, diverticular disease. Patient has a history of spinal stenosis. There is a questionable history of lupus. There is a history of diabetes. SURGICAL HISTORY: Cholecystectomy, hysterectomy, oophorectomy, and CABG. Patient is a nonsmoker, nondrinker. ALLERGIES: BETA BLOCKERS, IV DYES, CONTRAST. MEDICINES AT HOME: Albuterol, bupropion, carbidopa/levodopa, vitamin D3, citalopram, digoxin, Colace, Lovenox, iron, Flonase, insulin, Singulair, [place]-3, oxycodone, MiraLAX, pramipexole, Ranexa, Senna, Demadex, Tramadol, verapamil, and Coumadin. FAMILY HISTORY: Positive for heart disease. Sister with lupus. REVIEW OF SYSTEMS: Patient complains of headaches, migraines, blurry vision, nosebleeds, difficulty swallowing, chest pain, shortness of breath, constipation, dysuria. No hematuria, back pain, bone pain, joint pain. CURRENT PHYSICAL: Vital Signs: Blood pressure 119/59, pulse 77, respiratory 20, afebrile. HEENT: PERRLA. EOMI intact. Oropharynx unremarkable. Lungs: Relatively clear. Cardiac: Irregular rhythm. Breasts: No dominant masses. Abdomen: Soft. Multiple injection sites from Lovenox. Extremities: No significant edema, left leg swelling. LABORATORY: Hematocrit 39, now 36.5; WBC 10.8 and 11.4; platelets 241 with 69 polyps, 19 lymphs, 8 monos. INR 1.79; 2.8 on admission. Chemistries: Sodium 141, potassium 4.1, chloride 109, CO2 26, BUN 14, creatinine 1.0, glucose 163. Bilirubin 0.4, AST 12, ALT 31, total protein 6.5, albumin 3.1. CHEST X-RAY: Status post median sternotomy, metallic sutures, cardiac valve replacement. Cardiac silhouette is enlarged. Lungs clear. Mediastinum and osseous structures intact. IMPRESSION: A 66-year-old with multiple comorbid medical problems: History of prosthetic mitral valve replacement, history of atrial fibrillation, on anticoagulation, had injection for painful knee, developed a hemarthrosis. Difficult problem, as patient has atrial fibrillation and mitral valve replacement. There is a small window where Coumadin can be discontinued before development of microthrombi on the mitral valve, predisposing the patient to vascular and thrombotic events. The risk of microthrombi with stopping the Coumadin versus the bleeding risk are the competing factors here. I have discussed these issues with the patient and her son. They know the risk of stopping anticoagulation is significant for future strokes. They also know that the patient had bleeding into the knee and, ideally, one would stop the anticoagulation for a period of time to allow improvement. The risks of both stopping Coumadin and continuing Coumadin were discussed with the patient and her son and the decision to try and maintain Coumadin at a lower therapeutic level. ARLINE GLOVER M.D. [id number]
[2016-08-27] MEDS: WARFARIN NA 3 MG TABLET PO SCH (17:06)
[2016-08-27] MEDS: CARBIDOPA/LEVODOPA 25/100 TABLET (FP) PO SCH (22:21)
[2016-08-27] MEDS: INSULIN DETEMIR 100 UNITS/ML MDV SQ SCH (22:23)
[2016-08-27] MEDS: PRAMIPEXOLE DIHYDROCHLORIDE 1.5 MG TABLET PO SCH (22:23)
[2016-08-27] MEDS: SENNOSIDES 8.6MG TABLET (FP) PO SCH (22:24)
[2016-08-27] MEDS: MONTELUKAST NA 10 MG TABLET PO SCH (22:24)
[2016-08-27] MEDS: LIDOCAINE PATCH REMOVAL MC SCH (22:42)
--- NOTE | 2016-08-28 00:12 | CONSULT ---
Consult Consult Specialty:: endocrine Referred by:: dr.[email or web address] alcocer Reason for Consultation:: diabetes mellitus - History of Present Illness Chief Complaint: pain and swelling in left knee since injection History of Present Illness: 66 year old female with a significant past medical history of spinal stenosis, anemia, asthma, hypertension, hyperlipidemia, diabetes, CHF, CAD s/p stents x2, A-Fib (on coumadin), mitral valve replacements, stents x2, COPD, and CVA ( multiple TIAs) who presents to the ED with complaints of left knee pain for several days. The patient reports she has chronic left knee pain and got an injection from her pain management MD on Sunday. Since Sunday, the patient reports progressively worsening left knee pain and edema. has been unable to bear weight on the knee or perform adl.higher blood sugars,denies fever chills nausea or vomiting. - Past Medical History [employer]: Yes: CVA, Migraine, Other (light-headedness and dizziness) Cardio/Vascular: Yes: AFIB, CAD, CHF, HTN, Hyperlipdemia, Other (S/P [facility] mitral valve replacement) Pulmonary: Yes: Asthma, COPD, Sleep Apnea (on CPAP at night) Gastrointestinal: Yes: Constipation, Diverticulosis, GI Bleed, Hemorrhoids Musculoskeletal: Yes: Chronic low back pain, Other (Spinal stenosis) Rheumatology: Yes: Lupus, Other (APLAS (BOTH LUPUS AND APLS ARE QUESTIONABLE)) Endocrine: Yes: Diabetes Mellitus - Past Surgical History Past Surgical History: Yes: CABG, Cholecystectomy, Hysterectomy, Oopherectomy - Alcohol/Substance Use Hx Alcohol Use: No History of Substance Use: reports: None - Smoking History Smoking history: Never smoked Have you smoked in the past 12 months: No Aproximately how many cigarettes per day: 0 If you are a former smoker, when did you quit?: many years - Social History ADL: Independent Home Medications - Allergies Allergies/Adverse Reactions: Allergies Allergy/AdvReac Type Severity Reaction Status Date / Time lactose Allergy Mild Verified 06/29/16 17:40 Beta-Blockers Allergy Verified 06/29/16 17:40 (Beta-Adrenergic Bloc Iodinated Contrast Media - Allergy Verified 06/29/16 17:40 Oral and [IV Dye, Iodine Containing Contrast ] shellfish derived Allergy Verified 06/29/16 17:40 - Home Medications Home Medications: Ambulatory Orders Albuterol 0.083% Nebulizer Brigitte [Ventolin 0.083% Nebulizer Soln -] 1 neb NEB QID 02/01/16 Bupropion HBr [Aplenzin] 300 mg PO DAILY 02/01/16 Carbidopa/Levodopa [Carbidopa-Levodopa 25-100 Tab] 1 each PO AC 02/01/16 Cholecalciferol (Vitamin D3) [Vitamin D3] 5,000 unit PO WEEKLY 02/01/16 Citalopram Hydrobromide [Citalopram HBr] 10 mg PO HS 02/01/16 Digoxin [Lanoxin -] 0.125 mg PO DAILY 02/01/16 Docusate Sodium [Colace -] 100 mg PO TID 02/01/16 Enoxaparin Sodium [Lovenox] 100 mg SQ BID 02/01/16 Ferrous Sulfate [Feosol] 325 mg PO DAILY 02/01/16 Fluticasone Propionate [Flonase Allergy Relief] 2 inh NS BID 02/01/16 Insulin Detemir [Levemir Flextouch] 30 units SQ DAILY 02/01/16 Insulin Sliding Scale [Novolog Vial Sliding Scale -] 0 units SQ ACHS 02/01/16 Montelukast Na [Singulair -] 10 mg PO HS 02/01/16 Check-3 Acid Ethyl Esters [Lovaza] 1 gm PO BID 02/01/16 Omeprazole 20 mg PO DAILY 02/01/16 Oxycodone HCl 5 mg PO BID PRN 02/01/16 Polyethylene Glycol 3350 [Miralax 119 gm Btl -] 17 gm PO DAILY 02/01/16 Potassium Chloride 40 meq PO DAILY 02/01/16 Pramipexole Di-HCl [Pramipexole Dihydrochloride] 0.75 mg PO DAILY 02/01/16 Pramipexole Di-HCl [Pramipexole Dihydrochloride] 1.5 mg PO HS 02/01/16 Ranolazine [Ranexa -] 500 mg PO BID 02/01/16 Sennosides [Senna] 2 tab PO HS 02/01/16 Sodium Chloride [Saline Nasal [place]] 1 ml NS Q6H PRN 02/01/16 Topiramate [Topiramate ER] 150 mg PO BID 02/01/16 Torsemide [Demadex -] 40 mg PO DAILY 02/01/16 Tramadol HCl 50 mg PO Q6H PRN 02/01/16 Verapamil HCl [Verapamil ER] 240 mg PO DAILY 02/01/16 Warfarin Na [Coumadin -] 12 mg PO HS 02/01/16 Family Disease History - Family Disease History Family Disease History: Diabetes: Grandparent, Mother, Heart Disease: Father, Other: Sister (Lupus) Review of Systems - Review of Systems Constitutional: reports: Loss of Appetite, Weakness Eyes: reports: Blurred Vision HENT: reports: No Symptoms Neck: reports: No Symptoms Cardiovascular: reports: Chest Pain, Palpitations, Shortness of Breath Respiratory: reports: Exercise Intolerance, SOB on Exertion Gastrointestinal: reports: Bloating, Constipation Genitourinary: reports: No Symptoms Breasts: reports: No Symptoms Reported Musculoskeletal: reports: Extremity Pain, Joint Pain, Joint Swelling, Muscle Pain, Muscle Cramps, Muscle Weakness Integumentary: reports: No Symptoms Neurological: reports: Dizziness, Numbness, Unsteady Gait, Weakness Endocrine: reports: Unexplained Weight Gain Psychiatric: reports: Anxiety, Depression Physical Exam Vital Signs: Vital Signs Temperature 99.3 F 08/27/16 17:19 Pulse Rate 75 08/27/16 17:19 Respiratory Rate 20 08/27/16 17:19 Blood Pressure 152/55 08/27/16 17:19 O2 Sat by Pulse Oximetry (%) 91 L 08/27/16 21:00 Constitutional: Yes: Anxious Eyes: Yes: EOM Intact HENT: Yes: Normocephalic Neck: Yes: Trachea Midline Cardiovascular: Yes: Regular Rate and Rhythm Respiratory: Yes: CTA Bilaterally Gastrointestinal: Yes: Normal Bowel Sounds, Abdomen, Obese ...Rectal Exam: Yes: Deferred Renal/: Yes: WNL Breast(s): Yes: WNL Musculoskeletal: Yes: Joint Stiffness, Joint Swelling, Muscle Pain, Muscle Weakness Extremities: Yes: Erythema Edema: Yes Edema: RLE: 2+ Peripheral Pulses WNL: Yes Neurological: Yes: Numbness, Weakness ...Motor Strength: RLE Psychiatric: Yes: Alert, Oriented Labs: CBC, BMP 08/26/16 06:00 08/26/16 06:00 Problem List - Problems (1) Afib Code(s): I48.91 - UNSPECIFIED ATRIAL FIBRILLATION (2) COPD (chronic obstructive pulmonary disease) Code(s): J44.9 - CHRONIC OBSTRUCTIVE PULMONARY DISEASE, UNSPECIFIED (3) Diabetes Code(s): E11.9 - TYPE 2 DIABETES MELLITUS WITHOUT COMPLICATIONS Qualifiers: Diabetes mellitus complication status: with neurologic complications (4) IDDM (insulin dependent diabetes mellitus) Code(s): E11.9 - TYPE 2 DIABETES MELLITUS WITHOUT COMPLICATIONS Z79.4 - INTERMEDIATE (CURRENT) USE OF INSULIN Assessment/Plan Current Active Problems Afib (Acute) Anticoagulated (Acute) CHF (congestive heart failure) (Acute) COPD (chronic obstructive pulmonary disease) (Acute) Diabetes (Acute) Epistaxis (Acute) Headache (Acute) IDDM (insulin dependent diabetes mellitus) (Acute) Inability to ambulate due to knee (Acute) Infection of knee (Acute) FIGUEROA (obstructive sleep apnea) (Acute) S/P MVR (mitral valve repair) (Acute) S/P MVR (mitral valve replacement) (Acute) SOB (shortness of breath) (Acute) Septic joint of left knee joint (Acute) TIA (transient ischemic attack) (Acute) Abnormal Lab Results 08/27/16 11:42 INR 1.79 H D Laboratory Results - last 24 hr 08/27/16 08/27/16 08/27/16 05:45 11:17 11:42 INR 1.79 H D POC Glucometer 164 129 Vancomycin Pre-Dose 08/27/16 08/27/16 08/27/16 11:42 16:59 22:32 INR POC Glucometer 139 152 Vancomycin Pre-Dose 9.696 Laboratory Tests 08/26/16 08/26/16 08/26/16 06:00 06:00 06:00 WBC 11.4 H RBC 4.18 Hgb 11.8 Hct 36.5 MCV 87.4 MCHC 32.2 RDW 15.9 H Plt Count 241 ESR 48 H Sodium 141 Potassium 4.1 Chloride 109 H Carbon Dioxide 26 Anion Gap 6 L BUN 14 Creatinine 1.0 Creat Clearance w eGFR 55.64 POC Glucometer C-Reactive Protein 3.6 H 08/26/16 08/26/16 08/26/16 07:01 17:16 20:59 WBC RBC Hgb Hct MCV MCHC RDW Plt Count ESR Sodium Potassium Chloride Carbon Dioxide Anion Gap BUN Creatinine Creat Clearance w eGFR POC Glucometer 163 133 132 C-Reactive Protein 08/27/16 08/27/16 08/27/16 05:45 11:17 16:59 WBC RBC Hgb Hct MCV MCHC RDW Plt Count ESR Sodium Potassium Chloride Carbon Dioxide Anion Gap BUN Creatinine Creat Clearance w eGFR POC Glucometer 164 129 139 C-Reactive Protein 08/27/16 22:32 WBC RBC Hgb Hct MCV MCHC RDW Plt Count ESR Sodium Potassium Chloride Carbon Dioxide Anion Gap BUN Creatinine Creat Clearance w eGFR POC Glucometer 152 C-Reactive Protein plan; bgm qid novolog scale coverage levemir 30 units hs ck hba1c pain management for pain controll
[2016-08-28] MEDS: VANCOMYCIN 1 GRAM (PRE-DOCKED) 1,000 MG/250 ML BAG IVPB SCH ×2 (00:13→11:33)
[2016-08-28] MEDS: oxyCODONE HCL 5 MG TABLET PO PRN ×2 (06:25→20:25)
[2016-08-28] MEDS: INSULIN SLIDING SCALE (NOVOLOG) 1 VIAL SQ SCH ×4 (06:25→21:52)
[2016-08-28 07:53] LABS: CALCIUM 8.6 mg/dL (8.5-10.1); COCKROFT - GAULT 76.5; CREATININE 1.1 mg/dL (0.55-1.02)
[2016-08-28 08:15] LABS: MCH 28.4 pg (25.7-33.7); MCHC 32.7 g/dl (32.0-36.0); MEAN CELL VOLUME 86.8 fl (80-96); MEAN PLT VOLUME 9.4 fl (7.5-11.1); PLATELET COUNT 237 K/MM3 (134-434); RDW 15.5 % (11.6-15.6); WHITE BLOOD COUNT 10.4 K/mm3 (4.0-10.0)
--- NOTE | 2016-08-28 08:15 | PN ---
Progress Note, Physician History of Present Illness: C/O KNEE PAIN - Current Medication List Current Medications: Active Medications Acetaminophen (Tylenol -) 650 mg PO Q6H PRN PRN Reason: FEVER OR PAIN Last Admin: 08/27/16 02:21 Dose: 650 mg Albuterol/Ipratropium (Duoneb -) 1 amp NEB Q6H PRN PRN Reason: SHORTNESS OF BREATH Bupropion HCl (Wellbutrin Xl -) 300 mg PO DAILY [facility] Last Admin: 08/27/16 09:38 Dose: 300 mg Carbidopa/Levodopa (Sinemet 25/100 -) 1 each PO HS [facility] Last Admin: 08/27/16 22:21 Dose: 1 each Ceftriaxone Sodium (Rocephin 1gm Ivpb (Pre-Docked)) 1 gm IVPB DAILY [facility] PRN Reason: Protocol Last Admin: 08/27/16 09:36 Dose: 1 gm Citalopram Hydrobromide (Celexa -) 10 mg PO DAILY [facility] Last Admin: 08/27/16 09:37 Dose: 10 mg Digoxin (Lanoxin -) 0.125 mg PO DAILY [facility] Last Admin: 08/27/16 09:30 Dose: 0.125 mg Docusate Sodium (Colace -) 100 mg PO BID [facility] Last Admin: 08/27/16 22:23 Dose: 100 mg Docusate Sodium (Colace -) 300 mg PO HS [facility] Ferrous Sulfate (Feosol -) 325 mg PO DAILY [facility] Last Admin: 08/27/16 09:30 Dose: 325 mg Fluticasone Propionate (Flonase -) 2 spray NS DAILY [facility] Last Admin: 08/27/16 09:43 Dose: 2 sprays Insulin Aspart (Novolog Vial Sliding Scale -) 1 vial SQ ACHS [facility] PRN Reason: Protocol Last Admin: 08/28/16 06:25 Dose: Not Given Insulin Detemir (Levemir Vial) 30 units SQ HS [facility] Last Admin: 08/27/16 22:23 Dose: 30 units Lidocaine (Lidoderm Patch -) 1 patch TP DAILY [facility] Last Admin: 08/27/16 09:28 Dose: 1 patch Miscellaneous (Lidoderm Patch Removal) 1 each MC DAILY@2200 [facility] Last Admin: 08/27/16 22:42 Dose: 1 each Montelukast Sodium (Singulair -) 10 mg PO HS [facility] Last Admin: 08/27/16 22:24 Dose: 10 mg Oxycodone HCl (Oxycontin -) 10 mg PO BID [facility] Last Admin: 08/27/16 22:21 Dose: 10 mg Oxycodone HCl (Roxicodone -) 5 mg PO Q6H PRN PRN Reason: PAIN Last Admin: 08/28/16 06:25 Dose: 5 mg Pantoprazole Sodium (Protonix -) 40 mg PO DAILY [facility] Last Admin: 08/27/16 09:30 Dose: 40 mg Pramipexole Dihydrochloride (Mirapex -) 1.5 mg PO HS [facility] Last Admin: 08/27/16 22:23 Dose: 1.5 mg Ranolazine (Ranexa -) 500 mg PO BID [facility] Last Admin: 08/27/16 22:24 Dose: 500 mg Senna (Senna -) 1 tab PO HS [facility] Last Admin: 08/27/16 22:24 Dose: 1 tab Sodium Chloride ([place] Nasal [place] -) 2 spray NS BID PRN PRN Reason: NASAL CONGESTION Topiramate (Topamax -) 150 mg PO BID [facility] Last Admin: 08/27/16 22:24 Dose: 150 mg Tramadol HCl (Ultram -) 50 mg PO Q6H PRN PRN Reason: PAIN Last Admin: 08/27/16 09:40 Dose: 50 mg Vancomycin HCl (Vancomycin (Pre-Docked)) 1,000 mg IVPB BID@0000,1200 [facility] PRN Reason: Protocol Last Admin: 08/28/16 00:13 Dose: 1,000 mg Verapamil HCl ([place] Sr -) 240 mg PO DAILY [facility] Last Admin: 08/27/16 09:30 Dose: 240 mg Warfarin Sodium (Coumadin -) 12 mg PO DAILY@1800 [facility] Last Admin: 08/27/16 17:06 Dose: 12 mg - Objective Vital Signs: Vital Signs Temperature 99.3 F 08/27/16 17:19 Pulse Rate 75 08/27/16 17:19 Respiratory Rate 20 08/27/16 17:19 Blood Pressure 152/55 08/27/16 17:19 O2 Sat by Pulse Oximetry (%) 91 L 08/27/16 21:00 Cardiovascular: Yes: Regular Rate and Rhythm Respiratory: Yes: Regular, CTA Bilaterally Gastrointestinal: Yes: Normal Bowel Sounds, Soft Musculoskeletal: Yes: Joint Stiffness, Joint Swelling (LEFT KNEE) Neurological: Yes: Alert, Oriented Labs: CBC, BMP 08/28/16 06:00 INR, PTT INR 1.79 (0.82-1.09) H D 08/27/16 11:42 Problem List - Problems (1) Afib Assessment/Plan: Laboratory Tests 08/25/16 08/27/16 21:20 11:42 INR 2.81 H D 1.79 H D MONITOR INR Code(s): I48.91 - UNSPECIFIED ATRIAL FIBRILLATION (2) COPD (chronic obstructive pulmonary disease) Assessment/Plan: NEBS Code(s): J44.9 - CHRONIC OBSTRUCTIVE PULMONARY DISEASE, UNSPECIFIED (3) Diabetes Assessment/Plan: BGM INSULIN ENDO ON BOARD Code(s): E11.9 - TYPE 2 DIABETES MELLITUS WITHOUT COMPLICATIONS Qualifiers: Diabetes mellitus complication status: with neurologic complications (4) Inability to ambulate due to knee Assessment/Plan: PT ORTHO Code(s): R26.2 - DIFFICULTY IN WALKING, NOT ELSEWHERE CLASSIFIED (5) Infection of knee Assessment/Plan: IV ABX ID CT SCAN Code(s): [id number] -
--- NOTE | 2016-08-28 08:56 | PN ---
Progress Note (short form) - Note Progress Note: Ortho Pt seen and examined s/p aspiration of left knee- still c/o pain Selected Entries 08/27/16 17:19 Temperature 99.3 F Pulse Rate 75 Respiratory 20 Rate Blood Pressure 152/55 Laboratory Tests 08/28/16 06:00 WBC 10.4 H Hgb 11.3 Hct 34.7 Plt Count 237 PE- + effusion, -erythema,+ ttp, rom 0-50 calf soft, nt, nvi a/p f/u cultures abx as per ID PT, wbat will follow d/w Dr. Mishra
[2016-08-28] MEDS ORDERED: PT OWN MED DRAWER 7, Y5N ONE ×2 (09:52→21:47)
[2016-08-28] MEDS: RANOLAZINE E.R. 500 MG TABLET (FP) PO SCH ×2 (10:24→21:52)
[2016-08-28] MEDS: VERAPAMIL HCL 240 MG E.R. TABLET (FP) PO SCH (10:24)
[2016-08-28] MEDS: oxyCODONE HCL 10 MG SUSTAINED ACTING TABLET PO SCH ×2 (10:24→21:53)
[2016-08-28] MEDS: LIDOCAINE 5% TOPICAL PATCH TP SCH (10:25)
[2016-08-28] MEDS: DIGOXIN 0.125 MG TABLET (FP) PO SCH (10:26)
[2016-08-28] MEDS: FERROUS SO4 325 MG TABLET (FP) PO SCH (10:26)
[2016-08-28] MEDS: PANTOPRAZOLE 40 MG TABLET (FP) PO SCH (10:27)
[2016-08-28] MEDS: DOCUSATE SODIUM 100 MG CAPSULE (FP) PO SCH ×2 (10:27→21:53)
[2016-08-28] MEDS: FLUTICASONE PROP 0.05% 16 GM NASAL SPRAY NS SCH (10:27)
[2016-08-28] MEDS: cefTRIAXone 1 GM/50 ML BAG (PRE-DOCKED) IVPB SCH (10:28)
[2016-08-28] MEDS: CITALOPRAM HYDROBROMIDE 10 MG TABLET (FP) PO SCH (10:28)
[2016-08-28] MEDS: TOPIRAMATE 100 MG TABLET PO SCH ×2 (10:29→23:20)
--- NOTE | 2016-08-28 11:18 | PN ---
Progress Note (short form) - Note Progress Note: continues with knee pain no fevers Vital Signs Period Temp Pulse Resp BP Sys/Wise Pulse Ox Last 24 Hr 98.4 F-99.3 F 66-78 18-20 119-152/55-59 91 cor-rrr lungs clear abd soft,nt ext swelling left knee, no erythema, +warmth CBC, BMP 08/28/16 06:00 08/28/16 06:00 Laboratory Tests 08/27/16 11:42 Vancomycin Pre-Dose 9.696 Microbiology 08/26/16 14:00 Urine - Urine - Catheterized Urine Culture - Final NO GROWTH OBTAINED 08/25/16 21:05 Blood - Peripheral Venous Blood Culture - Preliminary NO GROWTH OBTAINED AFTER 48 HOURS, INCUBATION TO CONTINUE FOR 3 DAYS. 08/25/16 21:27 Blood - Peripheral Venous Blood Culture - Preliminary NO GROWTH OBTAINED AFTER 48 HOURS, INCUBATION TO CONTINUE FOR 3 DAYS. 08/26/16 12:00 Wound-Other Gram Stain - Final ct scan with large joint effusion on left a/p hemarthroses- r/o infected knee-less likely- on coumadin, continue vanco/ rocephin, f/u cultures, ortho f/u history of prosthetic MVR- on coumadin
[2016-08-28 14:27] LABS: INR 2.8 (0.82-1.09); PROTHROMBIN TIME (PATIENT) 31.4 SEC (9.98-11.88)
[2016-08-28] MEDS: WARFARIN NA 3 MG TABLET PO SCH (18:02)
[2016-08-28] MEDS: LIDOCAINE PATCH REMOVAL MC SCH (21:52)
[2016-08-28] MEDS: INSULIN DETEMIR 100 UNITS/ML MDV SQ SCH (21:52)
[2016-08-28] MEDS: MONTELUKAST NA 10 MG TABLET PO SCH (21:53)
[2016-08-28] MEDS: SENNOSIDES 8.6MG TABLET (FP) PO SCH (21:53)
[2016-08-28] MEDS: CARBIDOPA/LEVODOPA 25/100 TABLET (FP) PO SCH (21:53)
--- NOTE | 2016-08-28 22:42 | PN ---
Progress Note (short form) - Note Progress Note: Patient seen and examined c/o Lt. knee pain AFVSS Cor: RSR, No murmurs, No gallops Lungs: Clear to P&A Abd: Soft, Normal bowel sounds, No organomegaly Ext:Lt. 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 INR--2.8 Lt. knee hemarthrosis, post injection. on antibiotics while ruling out infection monitor INR closely while on antibiotics, to eep 2-3 cardiology f/u
[2016-08-28] MEDS: PRAMIPEXOLE DIHYDROCHLORIDE 1.5 MG TABLET PO SCH (23:21)
[2016-08-29] MEDS: VANCOMYCIN 1 GRAM (PRE-DOCKED) 1,000 MG/250 ML BAG IVPB SCH ×2 (00:50→11:55)
[2016-08-29] MEDS: INSULIN SLIDING SCALE (NOVOLOG) 1 VIAL SQ SCH ×4 (06:11→22:39)
[2016-08-29 08:27] LABS: INR 3.58 (0.82-1.09); PROTHROMBIN TIME (PATIENT) 40.4 SEC (9.98-11.88)
[2016-08-29] MEDS: oxyCODONE HCL 5 MG TABLET PO PRN (10:30)
[2016-08-29] MEDS ORDERED: PT OWN MED DRAWER 7, Y5N ONE ×2 (10:37→22:34)
[2016-08-29] MEDS: PANTOPRAZOLE 40 MG TABLET (FP) PO SCH (10:40)
[2016-08-29] MEDS: oxyCODONE HCL 10 MG SUSTAINED ACTING TABLET PO SCH ×2 (10:41→22:31)
[2016-08-29] MEDS: DOCUSATE SODIUM 100 MG CAPSULE (FP) PO SCH ×2 (10:42→22:31)
[2016-08-29] MEDS: DIGOXIN 0.125 MG TABLET (FP) PO SCH (10:42)
[2016-08-29] MEDS: RANOLAZINE E.R. 500 MG TABLET (FP) PO SCH ×2 (10:42→22:32)
[2016-08-29] MEDS: LIDOCAINE 5% TOPICAL PATCH TP SCH (10:42)
[2016-08-29] MEDS: VERAPAMIL HCL 240 MG E.R. TABLET (FP) PO SCH (10:43)
[2016-08-29] MEDS: CITALOPRAM HYDROBROMIDE 10 MG TABLET (FP) PO SCH (10:43)
[2016-08-29] MEDS: FERROUS SO4 325 MG TABLET (FP) PO SCH (10:43)
[2016-08-29] MEDS: FLUTICASONE PROP 0.05% 16 GM NASAL SPRAY NS SCH (10:44)
[2016-08-29] MEDS: cefTRIAXone 1 GM/50 ML BAG (PRE-DOCKED) IVPB SCH (10:44)
[2016-08-29] MEDS: TOPIRAMATE 100 MG TABLET PO SCH ×2 (10:45→22:35)
[2016-08-29] MEDS: ACETAMINOPHEN 325 MG TABLET (FP) PO PRN (11:56)
--- NOTE | 2016-08-29 12:49 | CON.CARD ---
Cardiology Consult (text) - Consultation Consultation Note: cc: hemarthrosis hpi: 66 year old lady with past medical history of COPD on home , FIGUEROA (on cpap at home), CAD (s/p single vessel CABG 2006 with RUSSELL to OM and ROSALINA x2 to LAD 12/2011; last cath 06/2014 showed patent RUSSELL, patent LAD stents, no sig residual dz except for 80-90% OM that is bypassed), mech mvr (st [facility], 2006, on coumadin), anemia, TIA, diastolic CHF, DM, HTN, pafib, antiphospholipid syndrome (on coumadin), fibromyalgia, migraines, chronic atypical cp, obesity, LBP here with knee pain. injection from her pain management MD on Sunday. Since Sunday, the patient reports progressively worsening left knee pain and edema. She states she uses a walker at baseline but cannot walk or stand secondary to left knee pain. She reports generalized lower back pain associated with present symptoms. + fevers/sweats. Mild sob, unclear if worse from baseline. No recent n/v/d, rashes, headache, cough, congestion. + intermittent nose bleeds and vaginal bleeding. No angina, palps, dizzy, loc, pnd, orthopnea, le edema. Sees Dr. Loredo for cardio. pmh: per hpi psh: cabg, cholecystectomy, mvr, hysterectomy social: ex tob fam hx: no premature cad or scd ros: per hpi; no fever, nvd, vision changes, rash, cough, nasal congestion, gib , hematuria, wt loss meds: Ambulatory Orders Albuterol 0.083% Nebulizer Brigitte [Ventolin 0.083% Nebulizer Soln -] 1 neb NEB QID 02/01/16 Bupropion HBr [Aplenzin] 300 mg PO DAILY 02/01/16 Carbidopa/Levodopa [Carbidopa-Levodopa 25-100 Tab] 1 each PO AC 02/01/16 Cholecalciferol (Vitamin D3) [Vitamin D3] 5,000 unit PO WEEKLY 02/01/16 Citalopram Hydrobromide [Citalopram HBr] 10 mg PO HS 02/01/16 Digoxin [Lanoxin -] 0.125 mg PO DAILY 02/01/16 Docusate Sodium [Colace -] 100 mg PO TID 02/01/16 Enoxaparin Sodium [Lovenox] 100 mg SQ BID 02/01/16 Ferrous Sulfate [Feosol] 325 mg PO DAILY 02/01/16 Fluticasone Propionate [Flonase Allergy Relief] 2 inh NS BID 02/01/16 Insulin Detemir [Levemir Flextouch] 30 units SQ DAILY 02/01/16 Insulin Sliding Scale [Novolog Vial Sliding Scale -] 0 units SQ ACHS 02/01/16 Montelukast Na [Singulair -] 10 mg PO HS 02/01/16 [place]-3 Acid Ethyl Esters [Lovaza] 1 gm PO BID 02/01/16 Omeprazole 20 mg PO DAILY 02/01/16 Oxycodone HCl 5 mg PO BID PRN 02/01/16 Polyethylene Glycol 3350 [Miralax 119 gm Btl -] 17 gm PO DAILY 02/01/16 Potassium Chloride 40 meq PO DAILY 02/01/16 Pramipexole Di-HCl [Pramipexole Dihydrochloride] 0.75 mg PO DAILY 02/01/16 Pramipexole Di-HCl [Pramipexole Dihydrochloride] 1.5 mg PO HS 02/01/16 Ranolazine [Ranexa -] 500 mg PO BID 02/01/16 Sennosides [Senna] 2 tab PO HS 02/01/16 Sodium Chloride [Saline Nasal [place]] 1 ml NS Q6H PRN 02/01/16 Topiramate [Topiramate ER] 150 mg PO BID 02/01/16 Torsemide [Demadex -] 40 mg PO DAILY 02/01/16 Tramadol HCl 50 mg PO Q6H PRN 02/01/16 Verapamil HCl [Verapamil ER] 240 mg PO DAILY 02/01/16 Warfarin Na [Coumadin -] 12 mg PO HS 02/01/16 Current Medications Acetaminophen (Tylenol -) 650 mg PO Q6H PRN PRN Reason: FEVER OR PAIN Last Admin: 08/29/16 11:56 Dose: 650 mg Albuterol/Ipratropium (Duoneb -) 1 amp NEB Q6H PRN PRN Reason: SHORTNESS OF BREATH Bupropion HCl (Wellbutrin Xl -) 300 mg PO DAILY [facility] Last Admin: 08/29/16 10:44 Dose: 300 mg Carbidopa/Levodopa (Sinemet 25/100 -) 1 each PO HS [facility] Last Admin: 08/28/16 21:53 Dose: 1 each Citalopram Hydrobromide (Celexa -) 10 mg PO DAILY [facility] Last Admin: 08/29/16 10:43 Dose: 10 mg Digoxin (Lanoxin -) 0.125 mg PO DAILY [facility] Last Admin: 08/29/16 10:42 Dose: 0.125 mg Docusate Sodium (Colace -) 100 mg PO BID [facility] Last Admin: 08/29/16 10:42 Dose: 100 mg Docusate Sodium (Colace -) 300 mg PO HS [facility] Ferrous Sulfate (Feosol -) 325 mg PO DAILY [facility] Last Admin: 08/29/16 10:43 Dose: 325 mg Fluticasone Propionate (Flonase -) 2 spray NS DAILY [facility] Last Admin: 08/29/16 10:44 Dose: 2 sprays Insulin Aspart (Novolog Vial Sliding Scale -) 1 vial SQ [facility] PRN Reason: Protocol Last Admin: 08/29/16 06:11 Dose: Not Given Insulin Detemir (Levemir Vial) 30 units SQ [facility] Last Admin: 08/28/16 21:52 Dose: 30 units Lidocaine (Lidoderm Patch -) 1 patch TP DAILY [facility] Last Admin: 08/29/16 10:42 Dose: 1 patch Miscellaneous (Lidoderm Patch Removal) 1 each MC DAILY@2200 [facility] Last Admin: 08/28/16 21:52 Dose: 1 each Montelukast Sodium (Singulair -) 10 mg PO HS [facility] Last Admin: 08/28/16 21:53 Dose: 10 mg Oxycodone HCl (Oxycontin -) 10 mg PO BID [facility] Last Admin: 08/29/16 10:41 Dose: 10 mg Oxycodone HCl (Roxicodone -) 5 mg PO Q6H PRN PRN Reason: PAIN Last Admin: 08/29/16 10:30 Dose: 5 mg Pantoprazole Sodium (Protonix -) 40 mg PO DAILY [facility] Last Admin: 08/29/16 10:40 Dose: 40 mg Pramipexole Dihydrochloride (Mirapex -) 1.5 mg PO HS [facility] Last Admin: 08/28/16 23:21 Dose: 1.5 mg Ranolazine (Ranexa -) 500 mg PO BID [facility] Last Admin: 08/29/16 10:42 Dose: 500 mg Senna (Senna -) 1 tab PO HS [facility] Last Admin: 08/28/16 21:53 Dose: 1 tab Sodium Chloride ([place] Nasal [place] -) 2 spray NS BID PRN PRN Reason: NASAL CONGESTION Topiramate (Topamax -) 150 mg PO BID [facility] Last Admin: 08/29/16 10:45 Dose: 150 mg Tramadol HCl (Ultram -) 50 mg PO Q6H PRN PRN Reason: PAIN Last Admin: 08/27/16 09:40 Dose: 50 mg Vancomycin HCl (Vancomycin (Pre-Docked)) 1,000 mg IVPB BID@0000,1200 [facility] PRN Reason: Protocol Last Admin: 08/29/16 11:55 Dose: 1,000 mg Verapamil HCl (Calan Sr -) 240 mg PO DAILY [facility] Last Admin: 08/29/16 10:43 Dose: 240 mg Warfarin Sodium (Coumadin -) 12 mg PO DAILY@1800 [facility] Last Admin: 08/28/16 18:02 Dose: 12 mg Vital Signs - 24 hr 08/28/16 08/28/16 08/28/16 15:12 16:30 21:00 Temperature 98.5 F 99.4 F Pulse Rate 67 69 Respiratory 20 20 20 Rate Blood Pressure 151/69 114/63 O2 Sat by Pulse 91 L Oximetry (%) 08/29/16 08/29/16 06:09 10:42 Temperature 99.6 F Pulse Rate 68 69 Respiratory 20 Rate Blood Pressure 140/56 O2 Sat by Pulse Oximetry (%) Intake & Output 08/27/16 08/28/16 08/29/16 08/30/16 07:59 07:59 07:59 07:59 Intake Total 840 1630 790 Output Total 2400 1250 950 Balance -1560 380 -160 Weight 210 lb 1.6 oz nad no jvd + diaphoresis rrr s1s2 no mrg bibasilar rales nl eff aaox3 no le e/c/c + pain, swelling, bruising at left knee pos dp pt no carotid bruits no jaundice diaphoresis abd nt pos bs, nd CBC, BMP 08/28/16 06:00 08/28/16 06:00 Laboratory Tests 08/29/16 07:15 INR 3.58 H EKG: SR. RSR'/incomplete RBBB. non-specific t wave abnormalities, similar to priors. echo 07/2015: tds; nl lv/rv, mild lae, [facility] 12[facility]: no ischemia cxr: no acute pulmonary disease a/p: 66 year old lady with past medical history of COPD on home 02, FIGUEROA (on cpap at home), CAD (s/p single vessel CABG 2006 with RUSSELL to OM and ROSALINA x2 to LAD 12/2011; last cath 06/2014 showed patent RUSSELL, patent LAD stents, no sig residual dz except for 80-90% OM that is bypassed), [facility], [facility]), anemia, TIA, diastolic CHF, DM, HTN, pafib, antiphospholipid syndrome (on coumadin), fibromyalgia, migraines, chronic atypical cp, obesity, LBP here with knee pain. [facility] MVR: -on AC w/ coumadin, target INR 2.5 to 3.5. Now here with possible bleed into joint. Patient with mechanical MVR and antiphospholipid syndrome --> high risk for thrombosis of valve. Ok to hold coumadin, but will need bridging with either lovenox or heparin once INR is < 2.5. Can hold a dose of lovenox for intervention, but would avoid holding lovenox for any significant length of time. Pending discussions with consult services, would not recommend lowering goal therapeutic range of coumadin. May need to discuss with consult services regarding what interventions might be needed. - echo 07/2015 with normal [facility] mvr function cad, s/p cabg, pci: -as above -normal lvef on recent echo, no anginal sxs -no bb due to copd, on verapamil instead -not on statin due to prior intolerance -cont ranexa for possible small vessel dz symptoms -on ac, no asa diastolic chf - maintained on torsemide at home (40 mg bid). With mild sob and rales on exam. Would resume torsemide and get repeat CXR in am. - repeat bmp HTN: Controlled on current meds pafib: -rare episodes in past -remains in sr here based on initial ekg and exam -continue verapamil and dig. will get dig level. -cont ac with coumadin as mentioned above, has hx of TIA copd on home O2 - per pmd
--- NOTE | 2016-08-29 16:12 | PN ---
Progress Note (short form) - Note Progress Note: continues with knee pain Vital Signs Period Temp Pulse Resp BP Sys/Wise Pulse Ox Last 24 Hr 99.4 F-100.4 F 68-69 20-20 114-140/42-63 91-91 cor-rrr lungs clear abd soft,nt ext swelling left knee, no erythema, +warmth CBC, BMP 08/28/16 06:00 08/28/16 06:00 Microbiology 08/26/16 12:00 Wound-Other Gram Stain - Final 08/26/16 12:00 Wound-Other Wound Culture - Final NO GROWTH AFTER 48 HOURS INCUBATION 08/25/16 21:05 Blood - Peripheral Venous Blood Culture - Preliminary NO GROWTH OBTAINED AFTER 72 HOURS, INCUBATION TO CONTINUE FOR 2 DAYS. 08/25/16 21:27 Blood - Peripheral Venous Blood Culture - Preliminary NO GROWTH OBTAINED AFTER 72 HOURS, INCUBATION TO CONTINUE FOR 2 DAYS. 08/26/16 14:00 Urine - Urine - Catheterized Urine Culture - Final NO GROWTH OBTAINED ct scan with large joint effusion on left a/p hemarthroses- r/o infected knee-less likely- on coumadin, d/c antibiotics, all cultures negative, low grade temp may be from hemarthroses history of prosthetic MVR- on coumadin
--- NOTE | 2016-08-29 19:20 | PN ---
Progress Note, Physician Chief Complaint: LEFT KNEE PAIN History of Present Illness: PAIN LEFT KNEE, WARM TO TOUCH, FEELS PALPITATION BUT RHYTHM IS REGULAR ON AUSCULTATION, HAS PAROXYSMAL AFIB. - Current Medication List Current Medications: Active Medications Acetaminophen (Tylenol -) 650 mg PO Q6H PRN PRN Reason: FEVER OR PAIN Last Admin: 08/29/16 11:56 Dose: 650 mg Albuterol/Ipratropium (Duoneb -) 1 amp NEB Q6H PRN PRN Reason: SHORTNESS OF BREATH Bupropion HCl (Wellbutrin Xl -) 300 mg PO DAILY [facility] Last Admin: 08/29/16 10:44 Dose: 300 mg Carbidopa/Levodopa (Sinemet 25/100 -) 1 each PO HS [facility] Last Admin: 08/28/16 21:53 Dose: 1 each Citalopram Hydrobromide (Celexa -) 10 mg PO DAILY [facility] Last Admin: 08/29/16 10:43 Dose: 10 mg Digoxin (Lanoxin -) 0.125 mg PO DAILY [facility] Last Admin: 08/29/16 10:42 Dose: 0.125 mg Docusate Sodium (Colace -) 100 mg PO BID [facility] Last Admin: 08/29/16 10:42 Dose: 100 mg Docusate Sodium (Colace -) 300 mg PO HS [facility] Ferrous Sulfate (Feosol -) 325 mg PO DAILY [facility] Last Admin: 08/29/16 10:43 Dose: 325 mg Fluticasone Propionate (Flonase -) 2 spray NS DAILY [facility] Last Admin: 08/29/16 10:44 Dose: 2 sprays Insulin Aspart (Novolog Vial Sliding Scale -) 1 vial SQ ACHS [facility] PRN Reason: Protocol Last Admin: 08/29/16 17:56 Dose: Not Given Insulin Detemir (Levemir Vial) [address] [facility] Last Admin: 08/28/16 21:52 Dose: 30 units Lidocaine (Lidoderm Patch -) 1 patch TP DAILY [facility] Last Admin: 08/29/16 10:42 Dose: 1 patch Miscellaneous (Lidoderm Patch Removal) 1 each MC DAILY@2200 [facility] Last Admin: 08/28/16 21:52 Dose: 1 each Montelukast Sodium (Singulair -) [address] [facility] Last Admin: 08/28/16 21:53 Dose: 10 mg Oxycodone HCl (Oxycontin -) 10 mg PO BID [facility] Last Admin: 08/29/16 10:41 Dose: 10 mg Oxycodone HCl (Roxicodone -) 5 mg PO Q6H PRN PRN Reason: PAIN Last Admin: 08/29/16 10:30 Dose: 5 mg Pantoprazole Sodium (Protonix -) 40 mg PO DAILY [facility] Last Admin: 08/29/16 10:40 Dose: 40 mg Pramipexole Dihydrochloride (Mirapex -) 1.[address] [facility] Last Admin: 08/28/16 23:21 Dose: 1.5 mg Ranolazine (Ranexa -) 500 mg PO BID [facility] Last Admin: 08/29/16 10:42 Dose: 500 mg Senna (Senna -) [address] [facility] Last Admin: 08/28/16 21:53 Dose: 1 tab Sodium Chloride ([place] Nasal [place] -) 2 spray NS BID PRN PRN Reason: NASAL CONGESTION Topiramate (Topamax -) 150 mg PO BID [facility] Last Admin: 08/29/16 10:45 Dose: 150 mg Tramadol HCl (Ultram -) 50 mg PO Q6H PRN PRN Reason: PAIN Last Admin: 08/27/16 09:40 Dose: 50 mg Verapamil HCl (Calan Sr -) 240 mg PO DAILY [facility] Last Admin: 08/29/16 10:43 Dose: 240 mg - Objective Vital Signs: Vital Signs Temperature 98.7 F 08/29/16 16:30 Pulse Rate 61 08/29/16 16:30 Respiratory Rate 20 08/29/16 16:30 Blood Pressure 118/76 08/29/16 16:30 O2 Sat by Pulse Oximetry (%) 91 L 08/29/16 09:00 Constitutional: Yes: Well Nourished, No Distress, Calm Cardiovascular: Yes: Regular Rate and Rhythm Respiratory: Yes: Regular Gastrointestinal: Yes: Normal Bowel Sounds Musculoskeletal: Yes: Joint Swelling (LEFT KNEE) Peripheral Pulses WNL: Yes Neurological: Yes: Alert, Oriented Labs: CBC, BMP 08/28/16 06:00 08/28/16 06:00 INR, PTT INR 3.58 (0.82-1.09) H 08/29/16 07:15 Problem List - Problems (1) Afib Code(s): I48.91 - UNSPECIFIED ATRIAL FIBRILLATION Qualifiers: Atrial fibrillation type: paroxysmal Qualified Code(s): I48.0 - Paroxysmal atrial fibrillation (2) Inability to ambulate due to knee Assessment/Plan: PAIN MANAGEMENT IT WAS DRAINED EARLIER, SEEMS TO BE SWELLING AGAIN, HOLD WARFARIN TO BRING INR BETWEEN 1.5-2.2, ALTHOUGH HIGH RISK OF THROMBOTIC EVENT DUE TO MITRAL VALVE REPLACEMENT ICE PACK Code(s): R26.2 - DIFFICULTY IN WALKING, NOT ELSEWHERE CLASSIFIED (3) S/P MVR (mitral valve replacement) Code(s): Z95.2 - PRESENCE OF PROSTHETIC HEART VALVE (4) Septic joint of left knee joint Assessment/Plan: BLOOD CULTURE NEGATIVE SO FAR STILL FEBRILE INTERMITTENTLY Code(s): M00.9 - PYOGENIC ARTHRITIS, UNSPECIFIED Assessment/Plan PAIN MANAGEMENT IT WAS DRAINED EARLIER, SEEMS TO BE SWELLING AGAIN, MAY NEED DRAINAGE AGAIN HOLD WARFARIN TO BRING INR BETWEEN 1.5-2.2, ALTHOUGH HIGH RISK OF THROMBOTIC EVENT DUE TO MITRAL VALVE REPLACEMENT ICE PACK
[2016-08-29] MEDS: SENNOSIDES 8.6MG TABLET (FP) PO SCH (22:31)
[2016-08-29] MEDS: CARBIDOPA/LEVODOPA 25/100 TABLET (FP) PO SCH (22:31)
[2016-08-29] MEDS: LIDOCAINE PATCH REMOVAL MC SCH (22:32)
[2016-08-29] MEDS: PRAMIPEXOLE DIHYDROCHLORIDE 1.5 MG TABLET PO SCH (22:34)
[2016-08-29] MEDS: MONTELUKAST NA 10 MG TABLET PO SCH (22:35)
[2016-08-29] MEDS: INSULIN DETEMIR 100 UNITS/ML MDV SQ SCH (22:36)
[2016-08-30] MEDS: oxyCODONE HCL 5 MG TABLET PO PRN (00:52)
[2016-08-30] MEDS ORDERED: PT OWN MED DRAWER 7, Y5N ONE ×3 (06:09→22:18)
[2016-08-30] MEDS: INSULIN SLIDING SCALE (NOVOLOG) 1 VIAL SQ SCH ×4 (06:20→22:46)
[2016-08-30 08:45] LABS: BASOPHIL 0.6 % (0-2.0); EOSINOPHIL 1.4 % (0-4.5); MCH 27.9 pg (25.7-33.7); MCHC 32.2 g/dl (32.0-36.0); MEAN CELL VOLUME 86.8 fl (80-96); MEAN PLT VOLUME 9.1 fl (7.5-11.1); NEUTROPHILS 75.4 % (42.8-82.8); PLATELET COUNT 254 K/MM3 (134-434); RDW 15.1 % (11.6-15.6); WHITE BLOOD COUNT 12.8 K/mm3 (4.0-10.0)
[2016-08-30 09:10] LABS: INR 2.99 (0.82-1.09); PROTHROMBIN TIME (PATIENT) 33.6 SEC (9.98-11.88)
[2016-08-30 09:21] LABS: CALCIUM 8.6 mg/dL (8.5-10.1); COCKROFT - GAULT 84.15
[2016-08-30] MEDS: oxyCODONE HCL 10 MG SUSTAINED ACTING TABLET PO SCH ×2 (09:28→22:31)
[2016-08-30] MEDS: RANOLAZINE E.R. 500 MG TABLET (FP) PO SCH ×2 (09:28→22:32)
[2016-08-30] MEDS: DIGOXIN 0.125 MG TABLET (FP) PO SCH (09:28)
[2016-08-30] MEDS: FERROUS SO4 325 MG TABLET (FP) PO SCH (09:28)
[2016-08-30] MEDS: VERAPAMIL HCL 240 MG E.R. TABLET (FP) PO SCH (09:28)
[2016-08-30] MEDS: DOCUSATE SODIUM 100 MG CAPSULE (FP) PO SCH ×2 (09:28→22:32)
[2016-08-30] MEDS: TORSEMIDE 20 MG TABLET (FP) PO SCH ×2 (09:28→22:33)
[2016-08-30] MEDS: LIDOCAINE 5% TOPICAL PATCH TP SCH (09:28)
[2016-08-30] MEDS: PANTOPRAZOLE 40 MG TABLET (FP) PO SCH (09:29)
--- NOTE | 2016-08-30 11:17 | PN ---
Progress Note (short form) - Note Progress Note: Ortho Went to see pt, was not in room as pt was in radiology a/p In summary, continued left knee pain due to hemarthrosis. Was aspirated previously. Recommend decr INR if medically possible PT, wbat Would not recommend re-aspiration as INR still elevated and effusion will re- accumulate will follow d/w Dr. Mishra
[2016-08-30] MEDS: traMADol HCL 50 MG TABLET PO PRN (11:58)
[2016-08-30] MEDS: TOPIRAMATE 100 MG TABLET PO SCH ×2 (11:58→22:31)
[2016-08-30] MEDS: CITALOPRAM HYDROBROMIDE 10 MG TABLET (FP) PO SCH (11:58)
[2016-08-30] MEDS: FLUTICASONE PROP 0.05% 16 GM NASAL SPRAY NS SCH (11:59)
--- NOTE | 2016-08-30 12:47 | PN ---
Progress Note (short form) - Note Progress Note: continues with knee pain quite miserable Vital Signs Period Temp Pulse Resp BP Sys/Wise Pulse Ox Last 24 Hr 98.7 F-99 F 61-70 20-20 118-134/54-76 91 cor-rrr lungs clear abd soft,nt ext left knee unchanged, no erythema, +warmth and swelling CBC, BMP 08/30/16 07:30 08/30/16 07:30 Microbiology 08/25/16 21:05 Blood - Peripheral Venous Blood Culture - Preliminary NO GROWTH OBTAINED AFTER 96 HOURS, INCUBATION TO CONTINUE FOR 1 DAYS. 08/25/16 21:27 Blood - Peripheral Venous Blood Culture - Preliminary NO GROWTH OBTAINED AFTER 96 HOURS, INCUBATION TO CONTINUE FOR 1 DAYS. 08/26/16 12:00 Wound-Other Gram Stain - Final 08/26/16 12:00 Wound-Other Wound Culture - Final NO GROWTH AFTER 48 HOURS INCUBATION 08/26/16 14:00 Urine - Urine - Catheterized Urine Culture - Final NO GROWTH OBTAINED ct scan with large joint effusion on left a/p hemarthroses- r/o infected knee-less likely- on coumadin, cultures negative, antibiotics d/caitlin history of prosthetic MVR- on coumadin please call back if needed
--- NOTE | 2016-08-30 14:01 | PN ---
Progress Note, Physician Chief Complaint: LEFT KNEE PAIN History of Present Illness: PAIN LEFT KNEE, WARM TO TOUCH, FEELS PALPITATION BUT RHYTHM IS REGULAR ON AUSCULTATION, HAS PAROXYSMAL AFIB. - Current Medication List Current Medications: Active Medications Acetaminophen (Tylenol -) 650 mg PO Q6H PRN PRN Reason: FEVER OR PAIN Last Admin: 08/29/16 11:56 Dose: 650 mg Albuterol/Ipratropium (Duoneb -) 1 amp NEB Q6H PRN PRN Reason: SHORTNESS OF BREATH Bupropion HCl (Wellbutrin Xl -) 300 mg PO DAILY [facility] Last Admin: 08/30/16 11:58 Dose: 300 mg Carbidopa/Levodopa (Sinemet 25/100 -) 1 each PO HS [facility] Last Admin: 08/29/16 22:31 Dose: 1 each Citalopram Hydrobromide (Celexa -) 10 mg PO DAILY [facility] Last Admin: 08/30/16 11:58 Dose: 10 mg Digoxin (Lanoxin -) 0.125 mg PO DAILY [facility] Last Admin: 08/30/16 09:28 Dose: 0.125 mg Docusate Sodium (Colace -) 100 mg PO BID [facility] Last Admin: 08/30/16 09:28 Dose: 100 mg Docusate Sodium (Colace -) 300 mg PO [facility] Ferrous Sulfate (Feosol -) 325 mg PO DAILY [facility] Last Admin: 08/30/16 09:28 Dose: 325 mg Fluticasone Propionate (Flonase -) 2 spray NS DAILY [facility] Last Admin: 08/30/16 11:59 Dose: 2 sprays Insulin Aspart (Novolog Vial Sliding Scale -) 1 vial SQ ACHS [facility] PRN Reason: Protocol Last Admin: 08/30/16 12:34 Dose: Not Given Insulin Detemir (Levemir Vial) 30 units SQ [facility] Last Admin: 08/29/16 22:36 Dose: 30 units Lidocaine (Lidoderm Patch -) 1 patch TP DAILY [facility] Last Admin: 08/30/16 09:28 Dose: 1 patch Miscellaneous (Lidoderm Patch Removal) 1 each MC DAILY@2200 [facility] Last Admin: 08/29/16 22:32 Dose: 1 each Montelukast Sodium (Singulair -) 10 mg PO [facility] Last Admin: 08/29/16 22:35 Dose: 10 mg Oxycodone HCl (Oxycontin -) 10 mg PO BID [facility] Last Admin: 08/30/16 09:28 Dose: 10 mg Oxycodone HCl (Roxicodone -) 5 mg PO Q6H PRN PRN Reason: PAIN Last Admin: 08/30/16 00:52 Dose: 5 mg Pantoprazole Sodium (Protonix -) 40 mg PO DAILY [facility] Last Admin: 08/30/16 09:29 Dose: 40 mg Pramipexole Dihydrochloride (Mirapex -) 1.5 mg PO HS [facility] Last Admin: 08/29/16 22:34 Dose: 1.5 mg Ranolazine (Ranexa -) 500 mg PO BID [facility] Last Admin: 08/30/16 09:28 Dose: 500 mg Senna (Senna -) 1 tab PO HS [facility] Last Admin: 08/29/16 22:31 Dose: 1 tab Sodium Chloride ([place] Nasal [place] -) 2 spray NS BID PRN PRN Reason: NASAL CONGESTION Topiramate (Topamax -) 150 mg PO BID [facility] Last Admin: 08/30/16 11:58 Dose: 150 mg Torsemide (Demadex -) 40 mg PO BID [facility] Last Admin: 08/30/16 09:28 Dose: 40 mg Tramadol HCl (Ultram -) 50 mg PO Q6H PRN PRN Reason: PAIN Last Admin: 08/30/16 11:58 Dose: 50 mg Verapamil HCl (Calan Sr -) 240 mg PO DAILY [facility] Last Admin: 08/30/16 09:28 Dose: 240 mg - Objective Vital Signs: Vital Signs Temperature 99 F 08/30/16 06:18 Pulse Rate 70 08/30/16 09:28 Respiratory Rate 20 08/30/16 06:18 Blood Pressure 134/54 08/30/16 06:18 O2 Sat by Pulse Oximetry (%) 91 L 08/29/16 21:00 Constitutional: Yes: Well Nourished, No Distress, Calm Cardiovascular: Yes: Regular Rate and Rhythm Respiratory: Yes: Regular Gastrointestinal: Yes: Normal Bowel Sounds Musculoskeletal: Yes: Joint Swelling (left knee) Extremities: Yes: Other (Left knee warm to touch) Peripheral Pulses WNL: Yes Labs: CBC, BMP 08/30/16 07:30 08/30/16 07:30 INR, PTT INR 2.99 (0.82-1.09) H 08/30/16 07:30 Problem List - Problems (1) Afib Assessment/Plan: Regular rate at the moment. 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 INR still 2.99. Code(s): I48.91 - UNSPECIFIED ATRIAL FIBRILLATION Qualifiers: Atrial fibrillation type: paroxysmal Qualified Code(s): I48.0 - Paroxysmal atrial fibrillation (2) Inability to ambulate due to knee Assessment/Plan: PAIN MANAGEMENT IT WAS DRAINED EARLIER, SEEMS TO BE SWELLING AGAIN, HOLD WARFARIN TO BRING INR BETWEEN 1.5-2.2, ALTHOUGH HIGH RISK OF THROMBOTIC EVENT DUE TO MITRAL VALVE REPLACEMENT ICE PACK Code(s): R26.2 - DIFFICULTY IN WALKING, NOT ELSEWHERE CLASSIFIED (3) S/P MVR (mitral valve replacement) Code(s): Z95.2 - PRESENCE OF PROSTHETIC HEART VALVE (4) Septic joint of left knee joint Assessment/Plan: BLOOD CULTURE NEGATIVE SO FAR AFEBRIL FROM PAST 24 HOURS. WBC RISING, COULD BE IN RESPONSE TO INFLAMMATORY PROCESS. Code(s): M00.9 - PYOGENIC ARTHRITIS, UNSPECIFIED Assessment/Plan PAIN MANAGEMENT IT WAS DRAINED EARLIER, SEEMS TO BE SWELLING AGAIN, MAY NEED DRAINAGE AGAIN HOLD WARFARIN TO BRING INR BETWEEN 1.5-2.2, ALTHOUGH HIGH RISK OF THROMBOTIC EVENT DUE TO MITRAL VALVE REPLACEMENT ICE PACK
[2016-08-30] MEDS: morphine CARPU-JECT 2 MG/1 ML DISP.SYRIN IVPUSH PRN (18:14)
[2016-08-30] MEDS: PRAMIPEXOLE DIHYDROCHLORIDE 1.5 MG TABLET PO SCH (22:32)
[2016-08-30] MEDS: MONTELUKAST NA 10 MG TABLET PO SCH (22:32)
[2016-08-30] MEDS: SENNOSIDES 8.6MG TABLET (FP) PO SCH (22:32)
[2016-08-30] MEDS: CARBIDOPA/LEVODOPA 25/100 TABLET (FP) PO SCH (22:32)
[2016-08-30] MEDS: LIDOCAINE PATCH REMOVAL MC SCH (22:33)
[2016-08-30] MEDS: INSULIN DETEMIR 100 UNITS/ML MDV SQ SCH (22:43)
[2016-08-31] MEDS: morphine CARPU-JECT 2 MG/1 ML DISP.SYRIN IVPUSH PRN ×3 (00:23→16:10)
[2016-08-31] MEDS: INSULIN SLIDING SCALE (NOVOLOG) 1 VIAL SQ SCH ×4 (07:09→22:08)
[2016-08-31 09:19] LABS: INR 1.88 (0.82-1.09)
--- NOTE | 2016-08-31 09:20 | PN ---
Progress Note (short form) - Note Progress Note: Pt seen and examined. She con't to c/o severe pain with motion of the left knee. PE The left knee still has an effusion/hemarthrosis. + tender + pain with ROM (however the pt has a low pain threshold, is very teary) No erythema or any obvious signs of infection, no superficial cellulitis Left knee mildly warm Labs INR still elevated at 2.99, down from 3.58 Imp Again, from the aspiration and the PE I believe she has a spontaneous hemarthrosis into the left knee, not a septic joint, at this time. Rec Lower INR Start P.T., WBAT, walker, assistance, and start active and passive ROM exercises NTD from an orthopedic pov
[2016-08-31] MEDS ORDERED: PT OWN MED DRAWER 7, Y5N ONE (09:28)
[2016-08-31] MEDS: DIGOXIN 0.125 MG TABLET (FP) PO SCH (09:30)
[2016-08-31] MEDS: RANOLAZINE E.R. 500 MG TABLET (FP) PO SCH ×2 (09:30→22:04)
[2016-08-31] MEDS: DOCUSATE SODIUM 100 MG CAPSULE (FP) PO SCH ×2 (09:30→22:04)
[2016-08-31] MEDS: VERAPAMIL HCL 240 MG E.R. TABLET (FP) PO SCH (09:30)
[2016-08-31] MEDS: PANTOPRAZOLE 40 MG TABLET (FP) PO SCH (09:30)
[2016-08-31] MEDS: oxyCODONE HCL 10 MG SUSTAINED ACTING TABLET PO SCH ×2 (09:30→22:06)
[2016-08-31] MEDS: FERROUS SO4 325 MG TABLET (FP) PO SCH (09:31)
[2016-08-31] MEDS: TORSEMIDE 20 MG TABLET (FP) PO SCH ×2 (09:31→22:04)
[2016-08-31] MEDS: CITALOPRAM HYDROBROMIDE 10 MG TABLET (FP) PO SCH (09:31)
[2016-08-31] MEDS: TOPIRAMATE 100 MG TABLET PO SCH ×2 (09:32→23:32)
[2016-08-31] MEDS: LIDOCAINE 5% TOPICAL PATCH TP SCH (09:32)
[2016-08-31] MEDS: FLUTICASONE PROP 0.05% 16 GM NASAL SPRAY NS SCH (09:32)
--- NOTE | 2016-08-31 10:02 | PN ---
Progress Note, Physician Chief Complaint: LEFT KNEE PAIN History of Present Illness: PAIN LEFT KNEE, WARM TO TOUCH, FEELS PALPITATION BUT RHYTHM IS REGULAR ON AUSCULTATION, HAS PAROXYSMAL AFIB. - Current Medication List Current Medications: Active Medications Acetaminophen (Tylenol -) 650 mg PO Q6H PRN PRN Reason: FEVER OR PAIN Last Admin: 08/29/16 11:56 Dose: 650 mg Bupropion HCl (Wellbutrin Xl -) 300 mg PO DAILY [facility] Last Admin: 08/31/16 09:33 Dose: 300 mg Carbidopa/Levodopa (Sinemet 25/100 -) 1 each PO HS [facility] Last Admin: 08/30/16 22:32 Dose: 1 each Citalopram Hydrobromide (Celexa -) 10 mg PO DAILY [facility] Last Admin: 08/31/16 09:31 Dose: 10 mg Digoxin (Lanoxin -) 0.125 mg PO DAILY [facility] Last Admin: 08/31/16 09:30 Dose: 0.125 mg Docusate Sodium (Colace -) 100 mg PO BID [facility] Last Admin: 08/31/16 09:30 Dose: 100 mg Docusate Sodium (Colace -) 300 mg PO HS [facility] Ferrous Sulfate (Feosol -) 325 mg PO DAILY [facility] Last Admin: 08/31/16 09:31 Dose: 325 mg Fluticasone Propionate (Flonase -) 2 spray NS DAILY [facility] Last Admin: 08/31/16 09:32 Dose: 2 sprays Insulin Aspart (Novolog Vial Sliding Scale -) 1 vial SQ ACHS [facility] PRN Reason: Protocol Last Admin: 08/31/16 07:09 Dose: Not Given Insulin Detemir (Levemir Vial) 30 units SQ HS [facility] Last Admin: 08/30/16 22:43 Dose: 30 units Lidocaine (Lidoderm Patch -) 1 patch TP DAILY [facility] Last Admin: 08/31/16 09:32 Dose: 1 patch Miscellaneous (Lidoderm Patch Removal) 1 each MC DAILY@2200 [facility] Last Admin: 08/30/16 22:33 Dose: 1 each Montelukast Sodium (Singulair -) 10 mg PO HS [facility] Last Admin: 08/30/16 22:32 Dose: 10 mg Morphine Sulfate (Morphine Injection -) 2 mg IVPUSH Q6H PRN PRN Reason: PAIN Last Admin: 08/31/16 09:45 Dose: 2 mg Oxycodone HCl (Oxycontin -) 10 mg PO BID [facility] Last Admin: 08/31/16 09:30 Dose: 10 mg Oxycodone HCl (Roxicodone -) 5 mg PO Q6H PRN PRN Reason: PAIN Last Admin: 08/30/16 00:52 Dose: 5 mg Pantoprazole Sodium (Protonix -) 40 mg PO DAILY [facility] Last Admin: 08/31/16 09:30 Dose: 40 mg Pramipexole Dihydrochloride (Mirapex -) 1.5 mg PO HS [facility] Last Admin: 08/30/16 22:32 Dose: 1.5 mg Ranolazine (Ranexa -) 500 mg PO BID [facility] Last Admin: 08/31/16 09:30 Dose: 500 mg Senna (Senna -) 1 tab PO HS [facility] Last Admin: 08/30/16 22:32 Dose: 1 tab Sodium Chloride ([place] Nasal [place] -) 2 spray NS BID PRN PRN Reason: NASAL CONGESTION Topiramate (Topamax -) 150 mg PO BID [facility] Last Admin: 08/31/16 09:32 Dose: 150 mg Torsemide (Demadex -) 40 mg PO BID [facility] Last Admin: 08/31/16 09:31 Dose: 40 mg Verapamil HCl (Calan Sr -) 240 mg PO DAILY [facility] Last Admin: 08/31/16 09:30 Dose: 240 mg - Objective Vital Signs: Vital Signs Temperature 98.8 F 08/31/16 06:36 Pulse Rate 60 08/31/16 09:30 Respiratory Rate 20 08/31/16 06:36 Blood Pressure 126/44 08/31/16 06:36 O2 Sat by Pulse Oximetry (%) 93 L 08/30/16 21:00 Constitutional: Yes: Well Nourished, No Distress, Calm Cardiovascular: Yes: Regular Rate and Rhythm Respiratory: Yes: Regular Musculoskeletal: Yes: Joint Swelling (LEFT KNEE) Edema: No Peripheral Pulses WNL: Yes Neurological: Yes: Alert, Oriented Labs: CBC, BMP 08/30/16 07:30 08/30/16 07:30 INR, PTT INR 1.88 (0.82-1.09) H D 08/31/16 08:00 Problem List - Problems (1) Afib Assessment/Plan: Regular rate at the moment. 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 INR 1.8 today. Code(s): I48.91 - UNSPECIFIED ATRIAL FIBRILLATION Qualifiers: Atrial fibrillation type: paroxysmal Qualified Code(s): I48.0 - Paroxysmal atrial fibrillation (2) Inability to ambulate due to knee Assessment/Plan: PAIN MANAGEMENT IT WAS DRAINED EARLIER, SEEMS TO BE SWELLING AGAIN, HOLD WARFARIN TO BRING INR BETWEEN 1.5-2.2, ALTHOUGH HIGH RISK OF THROMBOTIC EVENT DUE TO MITRAL VALVE REPLACEMENT ICE PACK PHYSICAL THERAPY ORDERED Code(s): R26.2 - DIFFICULTY IN WALKING, NOT ELSEWHERE CLASSIFIED (3) S/P MVR (mitral valve replacement) Code(s): Z95.2 - PRESENCE OF PROSTHETIC HEART VALVE (4) Septic joint of left knee joint Assessment/Plan: BLOOD CULTURE NEGATIVE SO FAR AFEBRIL FROM PAST 24 HOURS. WBC RISING, COULD BE IN RESPONSE TO INFLAMMATORY PROCESS? WILL ALSO CHECK URINE Code(s): M00.9 - PYOGENIC ARTHRITIS, UNSPECIFIED (5) Leukocytosis Assessment/Plan: WBC RISING, COULD BE IN RESPONSE TO INFLAMMATORY PROCESS? WILL ALSO CHECK URINE Code(s): D72.829 - ELEVATED WHITE BLOOD CELL COUNT, UNSPECIFIED Assessment/Plan PHYSICAL THERAPY PAIN MANAGEMENT, TOLERATING MORPHINE INR-1.8 REPEAT INR IN AM URINE CULTURE
--- NOTE | 2016-08-31 14:49 | PN ---
Progress Note (short form) - Note Progress Note: cc: hemarthrosis S: no cp, palps, sob, dizziness. + severe pain at knee. + sensation of fever Current Medications Acetaminophen (Tylenol -) 650 mg PO Q6H PRN PRN Reason: FEVER OR PAIN Last Admin: 08/29/16 11:56 Dose: 650 mg Bupropion HCl (Wellbutrin Xl -) 300 mg PO DAILY [facility] Last Admin: 08/31/16 09:33 Dose: 300 mg Carbidopa/Levodopa (Sinemet 25/100 -) 1 each PO HS [facility] Last Admin: 08/30/16 22:32 Dose: 1 each Citalopram Hydrobromide (Celexa -) 10 mg PO DAILY [facility] Last Admin: 08/31/16 09:31 Dose: 10 mg Digoxin (Lanoxin -) 0.125 mg PO DAILY [facility] Last Admin: 08/31/16 09:30 Dose: 0.125 mg Docusate Sodium (Colace -) 100 mg PO BID [facility] Last Admin: 08/31/16 09:30 Dose: 100 mg Docusate Sodium (Colace -) 300 mg PO HS [facility] Ferrous Sulfate (Feosol -) 325 mg PO DAILY [facility] Last Admin: 08/31/16 09:31 Dose: 325 mg Fluticasone Propionate (Flonase -) 2 spray NS DAILY [facility] Last Admin: 08/31/16 09:32 Dose: 2 sprays Insulin Aspart (Novolog Vial Sliding Scale -) 1 vial SQ ACHS [facility] PRN Reason: Protocol Last Admin: 08/31/16 13:00 Dose: Not Given Insulin Detemir (Levemir Vial) 30 units SQ [facility] Last Admin: 08/30/16 22:43 Dose: 30 units Lidocaine (Lidoderm Patch -) 1 patch TP DAILY [facility] Last Admin: 08/31/16 09:32 Dose: 1 patch Miscellaneous (Lidoderm Patch Removal) 1 each MC DAILY@2200 [facility] Last Admin: 08/30/16 22:33 Dose: 1 each Montelukast Sodium (Singulair -) 10 mg PO HS [facility] Last Admin: 08/30/16 22:32 Dose: 10 mg Morphine Sulfate (Morphine Injection -) 2 mg IVPUSH Q6H PRN PRN Reason: PAIN Last Admin: 08/31/16 09:45 Dose: 2 mg Oxycodone HCl (Oxycontin -) 10 mg PO BID [facility] Last Admin: 08/31/16 09:30 Dose: 10 mg Oxycodone HCl (Roxicodone -) 5 mg PO Q6H PRN PRN Reason: PAIN Last Admin: 08/30/16 00:52 Dose: 5 mg Pantoprazole Sodium (Protonix -) 40 mg PO DAILY [facility] Last Admin: 08/31/16 09:30 Dose: 40 mg Pramipexole Dihydrochloride (Mirapex -) 1.5 mg PO HS [facility] Last Admin: 08/30/16 22:32 Dose: 1.5 mg Ranolazine (Ranexa -) 500 mg PO BID [facility] Last Admin: 08/31/16 09:30 Dose: 500 mg Senna (Senna -) 1 tab PO HS [facility] Last Admin: 08/30/16 22:32 Dose: 1 tab Sodium Chloride ([place] Nasal [place] -) 2 spray NS BID PRN PRN Reason: NASAL CONGESTION Topiramate (Topamax -) 150 mg PO BID [facility] Last Admin: 08/31/16 09:32 Dose: 150 mg Torsemide (Demadex -) 40 mg PO BID [facility] Last Admin: 08/31/16 09:31 Dose: 40 mg Verapamil HCl (Calan Sr -) 240 mg PO DAILY [facility] Last Admin: 08/31/16 09:30 Dose: 240 mg Vital Signs - 24 hr 08/30/16 08/30/16 08/30/16 15:20 17:12 21:00 Temperature 98.9 F 99.7 F H Pulse Rate 96 H 66 Respiratory 20 20 Rate Blood Pressure 137/75 133/56 O2 Sat by Pulse 93 L Oximetry (%) 08/31/16 08/31/16 08/31/16 06:36 09:30 14:21 Temperature 98.8 F 99.4 F Pulse Rate 54 L 60 63 Respiratory 20 20 Rate Blood Pressure 126/44 122/52 O2 Sat by Pulse Oximetry (%) Intake & Output 08/29/16 08/30/16 08/31/16 09/01/16 07:59 07:59 07:59 07:59 Intake Total 967 726 0171 700 Output Total 708 499 5742 Balance -160 -320 -2490 700 nad no jvd + diaphoresis rrr s1s2 no mrg bibasilar rales nl eff aaox3 no le e/c/c + pain, swelling, bruising at left knee pos dp pt no carotid bruits no jaundice diaphoresis abd nt pos bs, nd Laboratory Tests 08/31/16 08:00 INR 1.88 H D EKG: SR. RSR'/incomplete RBBB. non-specific t wave abnormalities, similar to priors. echo 07/2015: tds; nl lv/rv, mild lae, nl [facility] mibi 12/2013: no ischemia cxr: no acute pulmonary disease a/p: 66 with h/o COPD on home , FIGUEROA (on cpap at home), CAD (s/p single vessel CABG 2006 with RUSSELL to OM and ROSALINA x2 to LAD 12/2011; last cath 06/2014 showed patent RUSSELL, patent LAD stents, no sig residual dz except for 80-90% OM that is bypassed), [facility] mvr (st julia, 2006, on coumadin), anemia, TIA, diastolic CHF, DM, HTN, pafib, antiphospholipid syndrome (on coumadin), fibromyalgia, migraines, chronic atypical cp, obesity, LBP here with knee pain/ hemarthrosis. [facility] [place] MVR: -on AC w/ coumadin, target INR 2.5 to 3.5. Now here with possible bleed into joint. Patient with mechanical MVR and antiphospholipid syndrome --> high risk for thrombosis of valve. Ok to hold coumadin, but will need bridging with either lovenox or heparin once INR is < 2.5. INR subtherapeutic giving one time 1.5 mg/kg dose of lovenox now, will start bid therapeutic lovenox dosing tomorrow. Can hold a dose of lovenox for intervention, but would avoid holding lovenox for any significant length of time. - echo 07/2015 with normal [facility] function cad, s/p cabg, pci: -as above -normal lvef on recent echo, no anginal sxs -no bb due to copd, on verapamil instead -not on statin due to prior intolerance -cont ranexa for possible small vessel dz symptoms -on ac, no asa diastolic chf - maintained on torsemide at home (40 mg bid). Torsemide resumed. CXR without significant congestion. - repeat bmp HTN: Controlled on current meds pafib: -rare episodes in past -remains in sr here based on initial ekg and exam -continue verapamil and dig. dig level okay. -cont ac with coumadin/lovenox bridge as mentioned above, has hx of TIA copd on home O2 - per pmd
[2016-08-31] MEDS ORDERED: ENOXAPARIN 100 MG, ENOXAPARIN 40 MG SQ ONE (15:45)
[2016-08-31] MEDS ORDERED: ENOXAPARIN NA (PORCINE) 120 MG/0.8 ML DISP.SYRIN SQ SCH (15:45)
[2016-08-31] MEDS ORDERED: ENOXAPARIN NA (PORCINE) 40 MG/0.4 ML DISP.SYRIN SQ ONE (16:01)
[2016-08-31] MEDS ORDERED: ENOXAPARIN NA (PORCINE) 100 MG/1 ML DISP.SYRIN SQ ONE (16:02)
--- NOTE | 2016-08-31 19:12 | CONS ---
DATE OF CONSULTATION: 08/31/2016 HISTORY OF PRESENT ILLNESS: The patient is a 66-year-old woman with an extensive past medical history which includes atrial fibrillation on anticoagulation as well as bilateral knee osteoarthritis for which she underwent a left knee viscous supplementary injection a few days prior to admission. The patient developed increasing pain and swelling in her left knee and inability to bear weight. She presented to the emergency room on August 25 and underwent x-ray which showed osteoarthritis and a suprapatellar joint effusion. The patient initially was thought to have possible septic joint and started on antibiotics and subsequently underwent CAT scan on August 28 which showed large joint effusion, somewhat dense component with a possible etiology of hemorrhagic effusion although could not exclude other possibilities such as soft tissue mass. The patient initially had some elevation in her WBCs 10.8 and as of yesterday's blood work had persistent leukocytosis 12.8 but stable, hemoglobin 10.7, platelet count stable 254. Her INR on August 25 was 2.81. It has been as high as 3.58, but currently trending lower and today's was 1.88. Chemistry showed slight elevation of BUN 21, creatinine 1.0, otherwise normal chemistry as of August 30. Her albumin was low at 3.3. The patient states she was seen by physical therapy after being cleared by orthopedics to weight bearing as tolerated but she was really unable to put any weight on the left lower extremity and had difficult time and there was no official documentation from physical therapy as of yet. She was not using a knee immobilizer. She has tried ice, but not any heat and continues to complain of severe pain despite pain medication including morphine. PAST MEDICAL AND SURGICAL HISTORY: As above, also history of diabetes, hypertension, hyperlipidemia, asthma, congestive heart failure, coronary artery disease, status post stenting, mitral valve replacement, CVA versus multiple TIAs, COPD, underlying bilateral knee osteoarthritis as noted above and atrial fibrillation on anticoagulation. The patient also has a history of lupus possibly systemic lupus and is status post coronary artery bypass graft, cholecystectomy, hysterectomy, oophorectomy. SOCIAL HISTORY: Per the medical record she never smoked. She states she lives in a private house with her family but has a lot of stairs at home and had difficulty ambulating due to the knee osteoarthritis. Current function as above. REVIEW OF SYSTEMS: No lightheadedness, dizziness, no blurred vision or double vision. No nausea or vomiting, difficulty swallowing, difficulty chewing, no chest pain or shortness of breath. Her main complaint is left more than right knee pain, swelling, difficulty bending and extending the left knee, no current numbness or tingling, no bowel or bladder changes. PHYSICAL EXAMINATION: General: The patient is a slightly cushingoid woman seen lying in bed with her leg elevated. She is in distress with examination of the left lower extremity particularly extreme extension or flexion. She is awake and cooperative. HEENT: She is normocephalic and atraumatic. Extraocular muscles appear intact. She has no obvious facial weakness. Neck: Supple. Extremities: There is no distal pitting edema or calf tenderness but she does have focal edema just proximal to the left knee with discoloration and focal tenderness. There is no calf tenderness. Neuromuscular: She is awake, alert and cooperative. Cranial nerves 2-12 grossly intact. She has fairly good strength and range in her upper extremities and right lower extremity. She does have some medial joint line tenderness and crepitus in the right knee but has full range of motion both actively and with active assist. She has at least 4/5 strength in the proximal right lower extremity and 5/5 distal strength. In the left lower extremity, however, she has very limited range of motion in the left knee. She lacks at least 15-20 degrees of flexion with pain and passive range. She has better flexion at least 70-80 degrees, but a lot of proximal weakness, only 1/5 due to pain. Better dorsiflexion and plantar flexion in the lower extremities. Normal sensation to light touch. Symmetric reflexes, toes equivocal. She is unable to stand or ambulate. She is nonambulatory at this time. OVERALL IMPRESSION: 1. Deficits in mobility and activities of daily living. 2. Severe left knee pain with arthrosis status post arthrocentesis for viscous supplementary injection 9 days ago. 3. Anticoagulated due to atrial fibrillation status post supratherapeutic INR which is slightly subtherapeutic at this point. 4. Underlying right knee and left knee osteoarthritis. 5. History of chronic low back pain lumbar stenosis. 6. Extensive cardiac history as above. 7. Extensive pulmonary history as above. 8. History of cerebrovascular accident versus transient ischemic attack. 9. History of mitral valve replacements. 10. Diabetic. PLAN/SUGGESTIONS: 1. Will order a knee immobilizer for use when out of bed and attempting to stand and ambulate as needed. 2. Continue physical therapy. 3. Cold pack or ice to the left knee as needed. 4. Pain control. 5. Monitor INR closely. 6. Skin precautions, avoid heel and sacral pressure, monitor for pressure ulceration. 7. Bowel program, monitor for constipation. She is currently taking Colace as well as senna. 8. Will need short-term rehab in a fpc facility as she is unable to stand and ambulate. Thank you for this referral. MIRELA FRAIRE M.D. [id number]
[2016-08-31] MEDS: CARBIDOPA/LEVODOPA 25/100 TABLET (FP) PO SCH (22:04)
[2016-08-31] MEDS: MONTELUKAST NA 10 MG TABLET PO SCH (22:04)
[2016-08-31] MEDS: LIDOCAINE PATCH REMOVAL MC SCH (22:05)
[2016-08-31] MEDS: SENNOSIDES 8.6MG TABLET (FP) PO SCH (22:05)
[2016-08-31] MEDS: PRAMIPEXOLE DIHYDROCHLORIDE 1.5 MG TABLET PO SCH (22:06)
[2016-08-31] MEDS: INSULIN DETEMIR 100 UNITS/ML MDV SQ SCH (22:12)
[2016-09-01] MEDS: INSULIN SLIDING SCALE (NOVOLOG) 1 VIAL SQ SCH ×4 (06:20→21:29)
[2016-09-01 07:47] LABS: INR 1.59 (0.82-1.09); PROTHROMBIN TIME (PATIENT) 17.6 SEC (9.98-11.88)
[2016-09-01] MEDS ORDERED: PT OWN MED DRAWER 7, Y5N ONE (10:12)
--- NOTE | 2016-09-01 10:21 | PN ---
Progress Note, Physician Chief Complaint: LEFT KNEE PAIN History of Present Illness: PAIN LEFT KNEE, WARM TO TOUCH, FEELS PALPITATION BUT RHYTHM IS REGULAR ON AUSCULTATION, HAS PAROXYSMAL AFIB. - Current Medication List Current Medications: Active Medications Acetaminophen (Tylenol -) 650 mg PO Q6H PRN PRN Reason: FEVER OR PAIN Last Admin: 08/29/16 11:56 Dose: 650 mg Bupropion HCl (Wellbutrin Xl -) 300 mg PO DAILY [facility] Last Admin: 08/31/16 09:33 Dose: 300 mg Carbidopa/Levodopa (Sinemet 25/100 -) 1 each PO HS [facility] Last Admin: 08/31/16 22:04 Dose: 1 each Citalopram Hydrobromide (Celexa -) 10 mg PO DAILY [facility] Last Admin: 08/31/16 09:31 Dose: 10 mg Digoxin (Lanoxin -) 0.125 mg PO DAILY [facility] Last Admin: 08/31/16 09:30 Dose: 0.125 mg Docusate Sodium (Colace -) 100 mg PO BID [facility] Last Admin: 08/31/16 22:04 Dose: 100 mg Enoxaparin Sodium (Lovenox -) 100 mg SQ BID [facility] Ferrous Sulfate (Feosol -) 325 mg PO DAILY [facility] Last Admin: 08/31/16 09:31 Dose: 325 mg Fluticasone Propionate (Flonase -) 2 spray NS DAILY [facility] Last Admin: 08/31/16 09:32 Dose: 2 sprays Insulin Aspart (Novolog Vial Sliding Scale -) 1 vial SQ ACHS [facility] PRN Reason: Protocol Last Admin: 09/01/16 06:20 Dose: Not Given Insulin Detemir (Levemir Vial) 30 units SQ HS [facility] Last Admin: 08/31/16 22:12 Dose: 30 units Lidocaine (Lidoderm Patch -) 1 patch TP DAILY [facility] Last Admin: 08/31/16 09:32 Dose: 1 patch Miscellaneous (Lidoderm Patch Removal) 1 each MC DAILY@2200 [facility] Last Admin: 08/31/16 22:05 Dose: 1 each Montelukast Sodium (Singulair -) 10 mg PO HS [facility] Last Admin: 08/31/16 22:04 Dose: 10 mg Morphine Sulfate (Morphine Injection -) 2 mg IVPUSH Q6H PRN PRN Reason: PAIN Last Admin: 08/31/16 16:10 Dose: 2 mg Oxycodone HCl (Oxycontin -) 10 mg PO BID [facility] Last Admin: 08/31/16 22:06 Dose: 10 mg Pantoprazole Sodium (Protonix -) 40 mg PO DAILY [facility] Last Admin: 08/31/16 09:30 Dose: 40 mg Pramipexole Dihydrochloride (Mirapex -) 1.5 mg PO HS [facility] Last Admin: 08/31/16 22:06 Dose: 1.5 mg Ranolazine (Ranexa -) 500 mg PO BID [facility] Last Admin: 08/31/16 22:04 Dose: 500 mg Senna (Senna -) 1 tab PO HS [facility] Last Admin: 08/31/16 22:05 Dose: 1 tab Sodium Chloride ([place] Nasal [place] -) 2 spray NS BID PRN PRN Reason: NASAL CONGESTION Topiramate (Topamax -) 150 mg PO BID [facility] Last Admin: 08/31/16 23:32 Dose: 150 mg Torsemide (Demadex -) 40 mg PO BID [facility] Last Admin: 08/31/16 22:04 Dose: 40 mg Verapamil HCl (Calan Sr -) 240 mg PO DAILY [facility] Last Admin: 08/31/16 09:30 Dose: 240 mg - Objective Vital Signs: Vital Signs Temperature 99.0 F 09/01/16 06:00 Pulse Rate 58 L 09/01/16 06:00 Respiratory Rate 18 09/01/16 06:00 Blood Pressure 119/46 09/01/16 06:00 O2 Sat by Pulse Oximetry (%) 94 L 08/31/16 21:00 Constitutional: Yes: Well Nourished, No Distress, Calm Cardiovascular: Yes: Regular Rate and Rhythm Respiratory: Yes: Regular Gastrointestinal: Yes: Hypoactive Bowel Sounds Musculoskeletal: Yes: Joint Swelling (LEFT KNEE) Extremities: Yes: Other (LEFT KNEE WARM TO TOUCH) Peripheral Pulses WNL: Yes Neurological: Yes: Alert, Oriented Labs: CBC, BMP 08/30/16 07:30 08/30/16 07:30 INR, PTT INR 1.59 (0.82-1.09) H 09/01/16 06:15 Problem List - Problems (1) Afib Assessment/Plan: Regular rate at the moment. Holding Warfarin, on Lovenox for MVR. INR 1.5 today. May restart Coumadin once the bleeding reduces. Code(s): I48.91 - UNSPECIFIED ATRIAL FIBRILLATION Qualifiers: Atrial fibrillation type: paroxysmal Qualified Code(s): I48.0 - Paroxysmal atrial fibrillation (2) Inability to ambulate due to knee Assessment/Plan: PAIN MANAGEMENT ICE PACK SEEN BY PHYSIATRY, PT IS A GOOD CANDIDATE FOR STR, AGREED TO [facility] ONCE READY AWAITING KNEE BRACE FOR AMBULATION. Code(s): R26.2 - DIFFICULTY IN WALKING, NOT ELSEWHERE CLASSIFIED (3) S/P MVR (mitral valve replacement) Code(s): Z95.2 - PRESENCE OF PROSTHETIC HEART VALVE (4) Leukocytosis Assessment/Plan: REPEAT LABS IN AM Code(s): D72.829 - ELEVATED WHITE BLOOD CELL COUNT, UNSPECIFIED Assessment/Plan PAIN MANAGEMENT ON LOVENOX ENCOURAGE AMBULATION ICE PACK ON LEFT KNEE Q2H FOR 15 MIN LAXATIVE FOR CONSTIPATION
[2016-09-01] MEDS: VERAPAMIL HCL 240 MG E.R. TABLET (FP) PO SCH (10:25)
[2016-09-01] MEDS: TORSEMIDE 20 MG TABLET (FP) PO SCH ×2 (10:26→21:23)
[2016-09-01] MEDS: FERROUS SO4 325 MG TABLET (FP) PO SCH (10:26)
[2016-09-01] MEDS ORDERED: LACTULOSE 20 GM/30 ML UDC (FOR ORAL USE ONLY) PO PRN (10:26)
[2016-09-01] MEDS: CITALOPRAM HYDROBROMIDE 10 MG TABLET (FP) PO SCH (10:26)
[2016-09-01] MEDS: DOCUSATE SODIUM 100 MG CAPSULE (FP) PO SCH ×2 (10:26→22:05)
[2016-09-01] MEDS: DIGOXIN 0.125 MG TABLET (FP) PO SCH (10:27)
[2016-09-01] MEDS: oxyCODONE HCL 10 MG SUSTAINED ACTING TABLET PO SCH ×2 (10:27→21:25)
[2016-09-01] MEDS: PANTOPRAZOLE 40 MG TABLET (FP) PO SCH (10:28)
[2016-09-01] MEDS: RANOLAZINE E.R. 500 MG TABLET (FP) PO SCH ×2 (10:28→21:23)
[2016-09-01] MEDS: TOPIRAMATE 100 MG TABLET PO SCH ×2 (10:29→21:28)
[2016-09-01] MEDS: ENOXAPARIN NA (PORCINE) 100 MG/1 ML DISP.SYRIN SQ SCH ×2 (10:32→21:25)
[2016-09-01] MEDS: LIDOCAINE 5% TOPICAL PATCH TP SCH (10:32)
[2016-09-01] MEDS: FLUTICASONE PROP 0.05% 16 GM NASAL SPRAY NS SCH (10:33)
--- NOTE | 2016-09-01 13:34 | PN ---
Progress Note (short form) - Note Progress Note: FULL NOTE DICTATED PLAN: ICE KNEE IMMOBILIZER. WILL FOLLOW
--- NOTE | 2016-09-01 14:20 | PN ---
DATE OF VISIT: 09/01/2016 PROGRESS NOTE Patient is still in significant pain, but the effusion has left. INR is in a more manageable state. I can get the patient out to full extension now which was not able to be done before. I will treat the patient with a knee immobilizer with ice and then with ice packs that should be changed every few hours, and will follow the patient per day. BHUPINDER MARTÍNEZ M.D. [id number]
[2016-09-01] MEDS: morphine CARPU-JECT 2 MG/1 ML DISP.SYRIN IVPUSH PRN (19:54)
[2016-09-01] MEDS: SENNOSIDES 8.6MG TABLET (FP) PO SCH (21:24)
[2016-09-01] MEDS: CARBIDOPA/LEVODOPA 25/100 TABLET (FP) PO SCH (21:24)
[2016-09-01] MEDS: MONTELUKAST NA 10 MG TABLET PO SCH (21:24)
[2016-09-01] MEDS: LIDOCAINE PATCH REMOVAL MC SCH (21:28)
[2016-09-01] MEDS: INSULIN DETEMIR 100 UNITS/ML MDV SQ SCH (21:29)
[2016-09-01] MEDS: PRAMIPEXOLE DIHYDROCHLORIDE 1.5 MG TABLET PO SCH (22:05)
--- NOTE | 2016-09-01 22:07 | PN ---
Progress Note (short form) - Note Progress Note: Patient seen and examined c/o Lt. knee pain AFVSS Cor: RSR, No murmurs, No gallops Lungs: Clear to P&A Abd: Soft, Normal bowel sounds, No organomegaly Ext:Lt. knee swelling Abnormal Lab Results 09/02/16 09/02/16 09/02/16 06:35 06:35 06:35 WBC 10.9 H Monocytes % 11.2 H INR 1.45 H Potassium 3.1 L Chloride 97 L Carbon Dioxide 33 H D BUN 21 H Creatinine 1.3 H D AST 43 H D Albumin 2.5 L Meds reviewed a/p 66 y/o patient with h/o MVR, on coumadin, custodial. h/o afib/TIAs h/o antiphospholipid antibodies Lt. knee hemarthrosis, post injection. on antibiotics while ruling out infection On lovenox 100mg SC bid high thrombotic risk patient with MVR mechanical, afib, TIAs and antiphospholipids
--- NOTE | 2016-09-01 23:42 | PN ---
Progress Note (short form) - Note Progress Note: left knee severe pain,swelling unable to bear weight on knee,requiring pain controll,afebrile,improved glycemia Current Active Problems Afib (Acute) Anticoagulated (Acute) CHF (congestive heart failure) (Acute) COPD (chronic obstructive pulmonary disease) (Acute) Diabetes (Acute) Epistaxis (Acute) H/O prosthetic mitral valve (Acute) Headache (Acute) Hemarthrosis (Acute) IDDM (insulin dependent diabetes mellitus) (Acute) Inability to ambulate due to knee (Acute) Infection of knee (Acute) Leukocytosis (Acute) FIGUEROA (obstructive sleep apnea) (Acute) S/P MVR (mitral valve repair) (Acute) S/P MVR (mitral valve replacement) (Acute) SOB (shortness of breath) (Acute) Septic joint of left knee joint (Acute) TIA (transient ischemic attack) (Acute) Abnormal Lab Results 09/01/16 06:15 INR 1.59 H Laboratory Results - last 24 hr 09/01/16 09/01/16 09/01/16 06:15 06:18 11:18 INR 1.59 H POC Glucometer 93 97 09/01/16 09/01/16 16:49 21:19 INR POC Glucometer 107 94 Laboratory Tests 09/01/16 09/01/16 09/01/16 06:18 11:18 16:49 POC Glucometer 93 97 107 09/01/16 21:19 POC Glucometer 94 plan: Current Medications Generic Name Dose Route Start Last Admin Trade Name Freq PRN Reason Stop Dose Admin Acetaminophen 650 mg 08/26/16 00:02 08/29/16 11:56 Tylenol - PO 650 mg Q6H PRN Administration FEVER OR PAIN Bupropion HCl 300 mg 08/26/16 10:00 09/01/16 10:31 Wellbutrin Xl - PO 300 mg DAILY [facility]RIS Administration Carbidopa/Levodopa 1 each 08/26/16 22:00 09/01/16 21:24 Sinemet 25/100 - PO 1 each HS [facility]RIS Administration Citalopram Hydrobromide 10 mg 08/26/16 10:00 09/01/16 10:26 Celexa - PO 10 mg DAILY [facility]RIS Administration Digoxin 0.125 mg 08/26/16 10:00 09/01/16 10:27 Lanoxin - PO 0.125 mg DAILY [facility]RIS Administration Docusate Sodium 100 mg 08/26/16 10:00 09/01/16 22:05 Colace - PO 100 mg BID CHRIS Administration Enoxaparin Sodium 100 mg 09/01/16 10:00 09/01/16 21:25 Lovenox - SQ 100 mg BID CHRIS Administration Ferrous Sulfate 325 mg 08/26/16 10:00 09/01/16 10:26 Feosol - PO 325 mg DAILY [facility]RIS Administration Fluticasone Propionate 2 spray 08/26/16 10:00 09/01/16 10:33 Flonase - NS 2 sprays DAILY [facility]RIS Administration Insulin Aspart 1 vial 08/26/16 07:00 09/01/16 21:29 Novolog Vial Sliding Scale - SQ Not Given ACHS [facility] Protocol Insulin Detemir 30 units 08/26/16 22:00 09/01/16 21:29 Levemir Vial SQ 30 units HS [facility]RIS Administration Lactulose 20 gm 09/01/16 10:26 Cephulac (Oral Use) PO DAILY PRN CONSTIPATION Lidocaine 1 patch 08/26/16 10:00 09/01/16 10:32 Lidoderm Patch - TP 1 patch DAILY [facility]RIS Administration Miscellaneous 1 each 08/26/16 22:00 09/01/16 21:28 Lidoderm Patch Removal MC 1 each DAILY@2200 CHRIS Administration Montelukast Sodium 10 mg 08/26/16 22:00 09/01/16 21:24 Singulair - PO 10 mg HS [facility]RIS Administration Morphine Sulfate 2 mg 08/30/16 14:40 09/01/16 19:54 Morphine Injection - IVPUSH 2 mg Q6H PRN Administration PAIN Nystatin 500,000 units 09/02/16 00:00 Nystatin Oral Suspension - PO Q6HPO [facility] Oxycodone HCl 10 mg 08/26/16 10:00 09/01/16 21:25 Oxycontin - PO 10 mg BID CHRIS Administration Pantoprazole Sodium 40 mg 08/26/16 10:00 09/01/16 10:28 Protonix - PO 40 mg DAILY CHRIS Administration Pramipexole Dihydrochloride 1.5 mg 08/26/16 22:00 09/01/16 22:05 Mirapex - PO 1.5 mg HS CHRIS Administration Ranolazine 500 mg 08/26/16 10:00 09/01/16 21:23 Ranexa - PO 500 mg BID CHRIS Administration Senna 1 tab 08/26/16 22:00 09/01/16 21:24 Senna - PO 1 tab HS CHRIS Administration Sodium Chloride 2 spray 08/26/16 00:02 [place] - NS BID PRN NASAL CONGESTION Topiramate 150 mg 08/26/16 10:00 09/01/16 21:28 Topamax - PO 150 mg BID CHRIS Administration Torsemide 40 mg 08/30/16 10:00 09/01/16 21:23 Demadex - PO 40 mg BID CHRIS Administration Verapamil HCl 240 mg 08/26/16 10:00 09/01/16 10:25 Calan Sr - PO 240 mg DAILY CHRIS Administration Problem List - Problems (1) Afib Code(s): I48.91 - UNSPECIFIED ATRIAL FIBRILLATION Qualifiers: Atrial fibrillation type: paroxysmal Qualified Code(s): I48.0 - Paroxysmal atrial fibrillation (2) COPD (chronic obstructive pulmonary disease) Code(s): J44.9 - CHRONIC OBSTRUCTIVE PULMONARY DISEASE, UNSPECIFIED (3) Diabetes Code(s): E11.9 - TYPE 2 DIABETES MELLITUS WITHOUT COMPLICATIONS Qualifiers: Diabetes mellitus complication status: with neurologic complications (4) IDDM (insulin dependent diabetes mellitus) Code(s): E11.9 - TYPE 2 DIABETES MELLITUS WITHOUT COMPLICATIONS Z79.4 - LONGTERM (CURRENT) USE OF INSULIN
[2016-09-02] MEDS: NYSTATIN 500,000 UNITS/5 ML SUSPENSION PO SCH ×4 (00:53→17:43)
[2016-09-02] MEDS: INSULIN SLIDING SCALE (NOVOLOG) 1 VIAL SQ SCH ×4 (06:08→23:46)
[2016-09-02 08:30] LABS: BASOPHIL 1.3 % (0-2.0); MCH 28.1 pg (25.7-33.7); MCHC 32.8 g/dl (32.0-36.0); MEAN CELL VOLUME 85.7 fl (80-96); MEAN PLT VOLUME 8.9 fl (7.5-11.1); NEUTROPHILS 75.2 % (42.8-82.8); PLATELET COUNT 375 K/MM3 (134-434); RDW 15.2 % (11.6-15.6); WHITE BLOOD COUNT 10.9 K/mm3 (4.0-10.0)
[2016-09-02 08:51] LABS: INR 1.45 (0.82-1.09); PROTHROMBIN TIME (PATIENT) 16.1 SEC (9.98-11.88)
[2016-09-02 08:54] LABS: ALBUMIN 2.5 g/dl (3.4-5.0); ALK PHOS 96 U/L (45-117); ANION GAP 11 (8-16); BILIRUBIN,TOTAL 0.6 mg/dL (0.2-1.0); CALCIUM 8.5 mg/dL (8.5-10.1); CO2 33 mmol/L (21-32); CREATININE 1.3 mg/dL (0.55-1.02); GLUCOSE,RANDOM 90 mg/dL (74-106); SGOT/AST 43 U/L (15-37); SGPT/ALT 29 U/L (12-78); TOT PROT 6.8 g/dl (6.4-8.2)
[2016-09-02] MEDS ORDERED: PT OWN MED DRAWER 7, Y5N ONE ×3 (09:50→22:29)
[2016-09-02] MEDS: morphine CARPU-JECT 2 MG/1 ML DISP.SYRIN IVPUSH PRN (09:54)
[2016-09-02] MEDS: DIGOXIN 0.125 MG TABLET (FP) PO SCH (09:55)
[2016-09-02] MEDS: oxyCODONE HCL 10 MG SUSTAINED ACTING TABLET PO SCH (09:55)
[2016-09-02] MEDS: PANTOPRAZOLE 40 MG TABLET (FP) PO SCH (09:55)
[2016-09-02] MEDS: VERAPAMIL HCL 240 MG E.R. TABLET (FP) PO SCH (09:55)
[2016-09-02] MEDS: RANOLAZINE E.R. 500 MG TABLET (FP) PO SCH ×2 (09:55→22:28)
[2016-09-02] MEDS: DOCUSATE SODIUM 100 MG CAPSULE (FP) PO SCH ×2 (09:55→22:28)
[2016-09-02] MEDS: ENOXAPARIN NA (PORCINE) 100 MG/1 ML DISP.SYRIN SQ SCH ×2 (09:56→22:27)
[2016-09-02] MEDS: FERROUS SO4 325 MG TABLET (FP) PO SCH (09:56)
[2016-09-02] MEDS: TOPIRAMATE 100 MG TABLET PO SCH ×2 (09:56→22:30)
[2016-09-02] MEDS: LIDOCAINE 5% TOPICAL PATCH TP SCH (09:56)
[2016-09-02] MEDS: CITALOPRAM HYDROBROMIDE 10 MG TABLET (FP) PO SCH (09:56)
[2016-09-02] MEDS: FLUTICASONE PROP 0.05% 16 GM NASAL SPRAY NS SCH (09:57)
[2016-09-02] MEDS ORDERED: POTASSIUM CHLORIDE TABS 20 MEQ TABLET.ER (FP) PO ONE ×2 (10:45→14:26)
--- NOTE | 2016-09-02 12:37 | PN ---
Progress Note (short form) - Note Progress Note: S: no cp, palps, sob, dizziness. + severe pain at knee. Current Medications Generic Name Dose Route Start Last Admin Trade Name Freq PRN Reason Stop Dose Admin Acetaminophen 650 mg 08/26/16 00:02 08/29/16 11:56 Tylenol - PO 650 mg Q6H PRN Administration FEVER OR PAIN Bupropion HCl 300 mg 08/26/16 10:00 09/02/16 09:56 Wellbutrin Xl - PO 300 mg DAILY CHRIS Administration Carbidopa/Levodopa 1 each 08/26/16 22:00 09/01/16 21:24 Sinemet 25/100 - PO 1 each HS CHRIS Administration Citalopram Hydrobromide 10 mg 08/26/16 10:00 09/02/16 09:56 Celexa - PO 10 mg DAILY CHRIS Administration Digoxin 0.125 mg 08/26/16 10:00 09/02/16 09:55 Lanoxin - PO 0.125 mg DAILY [facility]RIS Administration Docusate Sodium 100 mg 08/26/16 10:00 09/02/16 09:55 Colace - PO 100 mg BID CHRIS Administration Enoxaparin Sodium 100 mg 09/01/16 10:00 09/02/16 09:56 Lovenox - SQ 100 mg BID CHRIS Administration Ferrous Sulfate 325 mg 08/26/16 10:00 09/02/16 09:56 Feosol - PO 325 mg DAILY CHRIS Administration Fluticasone Propionate 2 spray 08/26/16 10:00 09/02/16 09:57 Flonase - NS 2 sprays DAILY [facility]RIS Administration Insulin Aspart 1 vial 08/26/16 07:00 09/02/16 11:57 Novolog Vial Sliding Scale - SQ Not Given ACHS [facility] Protocol Insulin Detemir 30 units 08/26/16 22:00 09/01/16 21:29 Levemir Vial SQ 30 units HS CHRIS Administration Lactulose 20 gm 09/01/16 10:26 Cephulac (Oral Use) PO DAILY PRN CONSTIPATION Lidocaine 1 patch 08/26/16 10:00 09/02/16 09:56 Lidoderm Patch - TP 1 patch DAILY CHRIS Administration Miscellaneous 1 each 08/26/16 22:00 09/01/16 21:28 Lidoderm Patch Removal MC 1 each DAILY@2200 CHRIS Administration Montelukast Sodium 10 mg 08/26/16 22:00 09/01/16 21:24 Singulair - PO 10 mg HS CHRIS Administration Morphine Sulfate 2 mg 08/30/16 14:40 09/02/16 09:54 Morphine Injection - IVPUSH 2 mg Q6H PRN Administration PAIN Nystatin 500,000 units 09/02/16 00:00 09/02/16 11:41 Nystatin Oral Suspension - PO 500,000 units Q6HPO [facility]IS Administration Pantoprazole Sodium 40 mg 08/26/16 10:00 09/02/16 09:55 Protonix - PO 40 mg DAILY CHRIS Administration Pramipexole Dihydrochloride 1.5 mg 08/26/16 22:00 09/01/16 22:05 Mirapex - PO 1.5 mg HS CHRIS Administration Ranolazine 500 mg 08/26/16 10:00 09/02/16 09:55 Ranexa - PO 500 mg BID CHRIS Administration Senna 1 tab 08/26/16 22:00 09/01/16 21:24 Senna - PO 1 tab HS CHRIS Administration Sodium Chloride 2 spray 08/26/16 00:02 [place] Nasal [place] - NS BID PRN NASAL CONGESTION Topiramate 150 mg 08/26/16 10:00 09/02/16 09:56 Topamax - PO 150 mg BID CHRIS Administration Verapamil HCl 240 mg 08/26/16 10:00 09/02/16 09:55 Calan Sr - PO 240 mg DAILY CHRIS Administration Vital Signs Period Temp Pulse Resp BP Sys/Wise Pulse Ox Last 24 Hr 98.4 F-99.5 F 56-70 18-20 115-139/42-60 94 nad no jvd rrr s1s2 no mrg cta bl nl eff aaox3 no le e/c/c + pain, swelling, bruising at left knee no jaundice diaphoresis abd nt pos bs, nd CBC, BMP 09/02/16 06:35 09/02/16 06:35 EKG: SR. RSR'/incomplete RBBB. non-specific t wave abnormalities, similar to priors. echo 07/2015: tds; nl lv/rv, mild lae, nl mech mvr mibi 12/2013: no ischemia cxr: no acute pulmonary disease a/p: 66 with h/o COPD on home 02, FIGUEROA (on cpap at home), CAD (s/p single vessel CABG 2006 with RUSSELL to OM and ROSALINA x2 to LAD 12/2011; last cath 06/2014 showed patent RUSSELL, patent LAD stents, no sig residual dz except for 80-90% OM that is bypassed), [facility] mvr ( julia, 2006, on coumadin), anemia, TIA, diastolic CHF, DM, HTN, pafib, antiphospholipid syndrome (on coumadin), fibromyalgia, migraines, chronic atypical cp, obesity, LBP here with knee pain/ hemarthrosis. [facility] MVR: -on AC w/ coumadin, target INR 2.5 to 3.5. Now here with possible bleed into joint. Patient with mechanical MVR and antiphospholipid syndrome --> high risk for thrombosis of valve. Ok to hold coumadin, but will need bridging with either lovenox or heparin when INR is < 2.5. Can hold a dose of lovenox for intervention, but would avoid holding lovenox for any significant length of time. - echo 07/2015 with normal [facility] mvr function cad, s/p cabg, pci: -as above -normal lvef on recent echo, no anginal sxs -no bb due to copd, on verapamil instead -not on statin due to prior intolerance -cont ranexa for possible small vessel dz symptoms -on ac, no asa diastolic chf - maintained on torsemide at home (40 mg bid). CXR without significant congestion. -patient with poor po intake 2/2 pain. bmp with low potassium and worsened creatinine. will hold torsemide for now and monitor bmp. HTN: Controlled on current meds pafib: -rare episodes in past -remains in sr here based on initial ekg and exam -continue verapamil and dig. dig level okay. -cont ac with coumadin/lovenox bridge as mentioned above, has hx of TIA copd on home O2 - per pmd
--- NOTE | 2016-09-02 14:35 | PN ---
Progress Note, Physician Chief Complaint: LEFT KNEE PAIN History of Present Illness: PAIN LEFT KNEE HAS DECREASED, WARM TO TOUCH, RESPONDING WELL TO MORPHINE. ON LOVENOX, WILL RESTART COUMADIN AND MONITOR INR. PLAN D/C TO [facility] PER PATIENT FOR CONTINUITY OF CARE. - Current Medication List Current Medications: Active Medications Acetaminophen (Tylenol -) 650 mg PO Q6H PRN PRN Reason: FEVER OR PAIN Last Admin: 08/29/16 11:56 Dose: 650 mg Bupropion HCl (Wellbutrin Xl -) 300 mg PO DAILY [facility] Last Admin: 09/02/16 09:56 Dose: 300 mg Carbidopa/Levodopa (Sinemet 25/100 -) 1 each PO HS [facility] Last Admin: 09/01/16 21:24 Dose: 1 each Citalopram Hydrobromide (Celexa -) 10 mg PO DAILY [facility] Last Admin: 09/02/16 09:56 Dose: 10 mg Digoxin (Lanoxin -) 0.125 mg PO DAILY [facility] Last Admin: 09/02/16 09:55 Dose: 0.125 mg Docusate Sodium (Colace -) 100 mg PO BID [facility] Last Admin: 09/02/16 09:55 Dose: 100 mg Enoxaparin Sodium (Lovenox -) 100 mg SQ BID [facility] Last Admin: 09/02/16 09:56 Dose: 100 mg Ferrous Sulfate (Feosol -) 325 mg PO DAILY [facility] Last Admin: 09/02/16 09:56 Dose: 325 mg Fluticasone Propionate (Flonase -) 2 spray NS DAILY [facility] Last Admin: 09/02/16 09:57 Dose: 2 sprays Insulin Aspart (Novolog Vial Sliding Scale -) 1 vial SQ ACHS [facility] PRN Reason: Protocol Last Admin: 09/02/16 11:57 Dose: Not Given Insulin Detemir (Levemir Vial) 30 units SQ HS [facility] Last Admin: 09/01/16 21:29 Dose: 30 units Lactulose (Cephulac (Oral Use)) 20 gm PO DAILY PRN PRN Reason: CONSTIPATION Lidocaine (Lidoderm Patch -) 1 patch TP DAILY [facility] Last Admin: 09/02/16 09:56 Dose: 1 patch Miscellaneous (Lidoderm Patch Removal) 1 each MC DAILY@2200 [facility] Last Admin: 09/01/16 21:28 Dose: 1 each Montelukast Sodium (Singulair -) 10 mg PO HS [facility] Last Admin: 09/01/16 21:24 Dose: 10 mg Morphine Sulfate (Morphine Injection -) 2 mg IVPUSH Q6H PRN PRN Reason: PAIN Last Admin: 09/02/16 09:54 Dose: 2 mg Nystatin (Nystatin Oral Suspension -) 500,000 units PO Q6HPO [facility] Last Admin: 09/02/16 11:41 Dose: 500,000 units Pantoprazole Sodium (Protonix -) 40 mg PO DAILY [facility] Last Admin: 09/02/16 09:55 Dose: 40 mg Pramipexole Dihydrochloride (Mirapex -) 1.5 mg PO HS [facility] Last Admin: 09/01/16 22:05 Dose: 1.5 mg Ranolazine (Ranexa -) 500 mg PO BID [facility] Last Admin: 09/02/16 09:55 Dose: 500 mg Senna (Senna -) 1 tab PO [facility] Last Admin: 09/01/16 21:24 Dose: 1 tab Sodium Chloride ([place] -) 2 spray NS BID PRN PRN Reason: NASAL CONGESTION Topiramate (Topamax -) 150 mg PO BID [facility] Last Admin: 09/02/16 09:56 Dose: 150 mg Verapamil HCl (Calan Sr -) 240 mg PO DAILY [facility] Last Admin: 09/02/16 09:55 Dose: 240 mg Warfarin Sodium (Coumadin -) 12 mg PO ONCE@1800 ONE Stop: 09/02/16 18:01 - Objective Vital Signs: Vital Signs Temperature 97.1 F L 09/02/16 09:00 Pulse Rate 70 09/02/16 09:55 Respiratory Rate 18 09/02/16 09:00 Blood Pressure 131/56 09/02/16 09:00 O2 Sat by Pulse Oximetry (%) 97 09/02/16 09:00 Constitutional: Yes: Well Nourished, No Distress, Calm Cardiovascular: Yes: Regular Rate and Rhythm Respiratory: Yes: Regular Gastrointestinal: Yes: Normal Bowel Sounds Musculoskeletal: Yes: Joint Swelling Edema: Yes (LEFT KNEE) Peripheral Pulses WNL: Yes Neurological: Yes: Alert, Oriented Labs: CBC, BMP 09/02/16 06:35 09/02/16 06:35 INR, PTT INR 1.45 (0.82-1.09) H 09/02/16 06:35 Problem List - Problems (1) Afib Assessment/Plan: RESTART COUMADIN, CHECK INR, CONTINUE LOVENOX UNTIL INR THERAPEUTIC DUE TO HISTORY OF MVR AND TIA. Code(s): I48.91 - UNSPECIFIED ATRIAL FIBRILLATION Qualifiers: Atrial fibrillation type: paroxysmal Qualified Code(s): I48.0 - Paroxysmal atrial fibrillation (2) Inability to ambulate due to knee Assessment/Plan: RESTART COUMADIN, CHECK INR IN AM, CONTINUE LOVENOX. PAIN MANAGEMENT ICE PACK SEEN BY PHYSIATRY, PT IS A GOOD CANDIDATE FOR STR, AGREED TO [facility] ONCE READY AWAITING KNEE BRACE FOR AMBULATION. Code(s): R26.2 - DIFFICULTY IN WALKING, NOT ELSEWHERE CLASSIFIED (3) S/P MVR (mitral valve replacement) Code(s): Z95.2 - PRESENCE OF PROSTHETIC HEART VALVE (4) Leukocytosis Assessment/Plan: BETTER, REPEAT LABS IN AM Code(s): D72.829 - ELEVATED WHITE BLOOD CELL COUNT, UNSPECIFIED (5) Hypokalemia Assessment/Plan: KCL PO 40 MEQ GIVEN TODAY, REPEAT LABS IN AM Code(s): E87.6 - HYPOKALEMIA Assessment/Plan LOOKS MUCH BETTER HAD BM TODAY PAIN MANAGEMENT PHYSICAL THERAPY RESTART COUMADIN, MONITOR INR IN AM, CONTINUE LOVENOX UNTIL INR IS AT LEAST 2.5. INR GOAL-2.5-3.5 KNEE BRACE FOR REHAB. OK TO GO TO REHAB IN AM IF STABLE.
[2016-09-02] MEDS ORDERED: WARFARIN NA 10 MG TABLET (FP) ONE (17:34)
[2016-09-02] MEDS ORDERED: WARFARIN NA 2 MG TABLET (UD) ONE (17:34)
[2016-09-02] MEDS ORDERED: WARFARIN NA 2 MG TABLET (UD) PO ONE (18:00)
[2016-09-02] MEDS ORDERED: WARFARIN NA 10 MG, WARFARIN NA 2 MG PO ONE (18:00)
[2016-09-02] MEDS: INSULIN DETEMIR 100 UNITS/ML MDV SQ SCH (22:14)
[2016-09-02] MEDS: LIDOCAINE PATCH REMOVAL MC SCH (22:16)
[2016-09-02] MEDS: SENNOSIDES 8.6MG TABLET (FP) PO SCH (22:27)
[2016-09-02] MEDS: MONTELUKAST NA 10 MG TABLET PO SCH (22:28)
[2016-09-02] MEDS: CARBIDOPA/LEVODOPA 25/100 TABLET (FP) PO SCH (22:28)
[2016-09-03] MEDS: NYSTATIN 500,000 UNITS/5 ML SUSPENSION PO SCH ×3 (00:06→14:04)
[2016-09-03] MEDS: INSULIN SLIDING SCALE (NOVOLOG) 1 VIAL SQ SCH ×2 (06:41→12:22)
[2016-09-03] MEDS: PRAMIPEXOLE DIHYDROCHLORIDE 1.5 MG TABLET PO SCH (07:56)
[2016-09-03 08:12] LABS: INR 1.38 (0.82-1.09); PROTHROMBIN TIME (PATIENT) 15.3 SEC (9.98-11.88)
[2016-09-03 08:24] LABS: BASOPHIL 1.2 % (0-2.0); EOSINOPHIL 1.7 % (0-4.5); MCH 28.2 pg (25.7-33.7); MCHC 33.1 g/dl (32.0-36.0); MEAN CELL VOLUME 85.2 fl (80-96); MEAN PLT VOLUME 8.7 fl (7.5-11.1); NEUTROPHILS 75.6 % (42.8-82.8); PLATELET COUNT 379 K/MM3 (134-434); RDW 15.1 % (11.6-15.6); WHITE BLOOD COUNT 12.1 K/mm3 (4.0-10.0)
[2016-09-03 08:40] LABS: ALBUMIN 2.4 g/dl (3.4-5.0); ANION GAP 9 (8-16); CALCIUM 8.6 mg/dL (8.5-10.1); CO2 30 mmol/L (21-32); GLUCOSE,RANDOM 85 mg/dL (74-106)
[2016-09-03 08:43] LABS: ALK PHOS 89 U/L (45-117); BILIRUBIN,TOTAL 0.5 mg/dL (0.2-1.0); SGOT/AST 42 U/L (15-37); SGPT/ALT 26 U/L (12-78); TOT PROT 6.3 g/dl (6.4-8.2)
[2016-09-03 08:56] VITALS: BP 137/51; PULSE 61; TEMP 98.7
--- NOTE | 2016-09-03 09:09 | PN ---
Progress Note (short form) - Note Progress Note: SWELLING IN LEFT KNEE DECREASED NO REDNESS AND NO POINT TENDERNESS STILL WITH SIGNIFICANT C/O OUT OF PROPORTION TO PHYSICAL FINDINGS WITH ROM OF KNEE CALF SOFT AND NT NVI IMP: RESOLVING HEMARTHROSIS PLAN: CONTINUE ICE AND KNEE IMMOBILIZER FOR AMBULATION, DC TO SNF WHEN MEDICALLY OK
[2016-09-03] MEDS ORDERED: PT OWN MED DRAWER 7, Y5N ONE (09:10)
[2016-09-03] MEDS: FERROUS SO4 325 MG TABLET (FP) PO SCH (09:12)
[2016-09-03] MEDS: RANOLAZINE E.R. 500 MG TABLET (FP) PO SCH (09:12)
[2016-09-03] MEDS: ENOXAPARIN NA (PORCINE) 100 MG/1 ML DISP.SYRIN SQ SCH (09:12)
[2016-09-03] MEDS: DIGOXIN 0.125 MG TABLET (FP) PO SCH (09:12)
[2016-09-03] MEDS: LIDOCAINE 5% TOPICAL PATCH TP SCH (09:12)
[2016-09-03] MEDS: CITALOPRAM HYDROBROMIDE 10 MG TABLET (FP) PO SCH (09:13)
[2016-09-03] MEDS: PANTOPRAZOLE 40 MG TABLET (FP) PO SCH (09:13)
[2016-09-03] MEDS: DOCUSATE SODIUM 100 MG CAPSULE (FP) PO SCH (09:13)
[2016-09-03] MEDS: VERAPAMIL HCL 240 MG E.R. TABLET (FP) PO SCH (09:13)
[2016-09-03] MEDS: TOPIRAMATE 100 MG TABLET PO SCH (09:13)
[2016-09-03] MEDS: FLUTICASONE PROP 0.05% 16 GM NASAL SPRAY NS SCH (09:14)
[2016-09-03] MEDS: morphine CARPU-JECT 2 MG/1 ML DISP.SYRIN IVPUSH PRN ×2 (09:32→15:13)
--- NOTE | 2016-09-03 11:43 | PN ---
Progress Note (short form) - Note Progress Note: S: no cp, palps, sob, dizziness. + severe pain at knee. Current Medications Generic Name Dose Route Start Last Admin Trade Name [place] PRN Reason Stop Dose Admin Acetaminophen 650 mg 08/26/16 00:02 08/29/16 11:56 Tylenol - PO 650 mg Q6H PRN Administration FEVER OR PAIN Bupropion HCl 300 mg 08/26/16 10:00 09/03/16 09:13 Wellbutrin Xl - PO 300 mg DAILY [facility] Administration Carbidopa/Levodopa 1 each 08/26/16 22:00 09/02/16 22:28 Sinemet 25/100 - PO 1 each HS [facility] Administration Citalopram Hydrobromide 10 mg 08/26/16 10:00 09/03/16 09:13 Celexa - PO 10 mg DAILY [facility] Administration Digoxin 0.125 mg 08/26/16 10:00 09/03/16 09:12 Lanoxin - PO 0.125 mg DAILY [facility] Administration Docusate Sodium 100 mg 08/26/16 10:00 09/03/16 09:13 Colace - PO 100 mg BID [facility] Administration Enoxaparin Sodium 100 mg 09/01/16 10:00 09/03/16 09:12 Lovenox - SQ 100 mg BID [facility] Administration Ferrous Sulfate 325 mg 08/26/16 10:00 09/03/16 09:12 Feosol - PO 325 mg DAILY [facility] Administration Fluticasone Propionate 2 spray 08/26/16 10:00 09/03/16 09:14 Flonase - NS 2 sprays DAILY [facility] Administration Insulin Aspart 1 vial 08/26/16 07:00 09/03/16 06:41 Novolog Vial Sliding Scale - SQ Not Given ACHS [facility] Protocol Insulin Detemir 30 units 08/26/16 22:00 09/02/16 22:14 Levemir Vial SQ 30 units HS [facility] Administration Lactulose 20 gm 09/01/16 10:26 Cephulac (Oral Use) PO DAILY PRN CONSTIPATION Lidocaine 1 patch 08/26/16 10:00 09/03/16 09:12 Lidoderm Patch - TP 1 patch DAILY [facility] Administration Miscellaneous 1 each 08/26/16 22:00 09/02/16 22:16 Lidoderm Patch Removal MC 1 each DAILY@2200 [facility] Administration Montelukast Sodium 10 mg 08/26/16 22:00 09/02/16 22:28 Singulair - PO 10 mg HS [facility] Administration Morphine Sulfate 2 mg 08/30/16 14:40 09/03/16 09:32 Morphine Injection - IVPUSH 2 mg Q6H PRN Administration PAIN Nystatin 500,000 units 09/02/16 00:00 09/03/16 05:27 Nystatin Oral Suspension - PO 500,000 units Q6HPO [facility] Administration Pantoprazole Sodium 40 mg 08/26/16 10:00 09/03/16 09:13 Protonix - PO 40 mg DAILY [facility] Administration Pramipexole Dihydrochloride 1.5 mg 08/26/16 22:00 09/03/16 07:56 Mirapex - PO Not Given HS [facility] Ranolazine 500 mg 08/26/16 10:00 09/03/16 09:12 Ranexa - PO 500 mg BID [facility] Administration Senna 1 tab 08/26/16 22:00 09/02/16 22:27 Senna - PO 1 tab HS [facility] Administration Sodium Chloride 2 spray 08/26/16 00:02 [place] Nasal [place] - NS BID PRN NASAL CONGESTION Topiramate 150 mg 08/26/16 10:00 09/03/16 09:13 Topamax - PO 150 mg BID [facility] Administration Verapamil HCl 240 mg 08/26/16 10:00 09/03/16 09:13 Calan Sr - PO 240 mg DAILY [facility] Administration Vital Signs Period Temp Pulse Resp BP Sys/Wise Pulse Ox Last 24 Hr 98.2 F-99.5 F 57-64 18-18 110-137/45-53 97 nad no jvd rrr s1s2 no mrg cta bl nl eff aaox3 no le e/c/c + pain, swelling, bruising at left knee no jaundice diaphoresis abd nt pos bs, nd CBC, BMP 09/03/16 06:30 09/03/16 06:30 EKG: SR. RSR'/incomplete RBBB. non-specific t wave abnormalities, similar to priors. echo 07/2015: tds; nl lv/rv, mild lae, nl mech mvr mibi 12/2013: no ischemia cxr: no acute pulmonary disease a/p: 66 with h/o COPD on home 02, FIGUEROA (on cpap at home), CAD (s/p single vessel CABG 2006 with RUSSELL to OM and ROSALINA x2 to LAD 12/2011; last cath 06/2014 showed patent RUSSELL, patent LAD stents, no sig residual dz except for 80-90% OM that is bypassed), [facility] mvr ( julia, 2006, on coumadin), anemia, TIA, diastolic CHF, DM, HTN, pafib, antiphospholipid syndrome (on coumadin), fibromyalgia, migraines, chronic atypical cp, obesity, LBP here with knee pain/ hemarthrosis. [facility] MVR: -on AC w/ coumadin, target INR 2.5 to 3.5. Now here with possible bleed into joint. Patient with mechanical MVR and antiphospholipid syndrome --> high risk for thrombosis of valve. Ok to hold coumadin, but will need bridging with either lovenox or heparin when INR is < 2.5. Can hold a dose of lovenox for intervention, but would avoid holding lovenox for any significant length of time. - echo 07/2015 with normal [facility] mvr function cad, s/p cabg, pci: -as above -normal lvef on recent echo, no anginal sxs -no bb due to copd, on verapamil instead -not on statin due to prior intolerance -cont ranexa for possible small vessel dz symptoms -on ac, no asa diastolic chf - maintained on torsemide at home (40 mg bid). CXR without significant congestion. -patient with poor po intake 2/2 pain and cr bumped up here while on torsemide so holding for now and cr improved. will need to resume diuretic when taking po properly again, monitor vol status for now. HTN: Controlled on current meds pafib: -rare episodes in past -remains in sr here based on initial ekg and exam -continue verapamil and dig. dig level okay. -cont ac with coumadin/lovenox bridge as mentioned above, has hx of TIA copd on home O2 - per pmd knee pain: -still with significant pain, plans per pmd/ortho
--- NOTE | 2016-09-03 12:07 | DS ---
Physical Examination Vital Signs: Vital Signs Temperature 98.7 F 09/03/16 08:55 Pulse Rate 61 09/03/16 09:12 Respiratory Rate 18 09/03/16 08:55 Blood Pressure 137/51 09/03/16 08:55 O2 Sat by Pulse Oximetry (%) 97 09/02/16 21:00 Constitutional: Yes: Well Nourished, No Distress, Calm Cardiovascular: Yes: Regular Rate and Rhythm Respiratory: Yes: Regular Gastrointestinal: Yes: Normal Bowel Sounds Musculoskeletal: Yes: Joint Swelling (left knee) Extremities: Yes: Other (left knee warm to touch) Edema: Yes (left knee) Neurological: Yes: Alert, Oriented Labs: CBC, BMP 09/03/16 06:30 09/03/16 06:30 Discharge Summary Reason For Visit: A-FIB INFECTION OF KNEE Current Active Problems Afib (Acute) Anticoagulated (Acute) CHF (congestive heart failure) (Acute) COPD (chronic obstructive pulmonary disease) (Acute) Diabetes (Acute) Epistaxis (Acute) H/O prosthetic mitral valve (Acute) Headache (Acute) Hemarthrosis (Acute) IDDM (insulin dependent diabetes mellitus) (Acute) Inability to ambulate due to knee (Acute) Infection of knee (Acute) Leukocytosis (Acute) FIGUEROA (obstructive sleep apnea) (Acute) S/P MVR (mitral valve repair) (Acute) S/P MVR (mitral valve replacement) (Acute) SOB (shortness of breath) (Acute) Septic joint of left knee joint (Acute) TIA (transient ischemic attack) (Acute) Procedures: Principal: Aspiration of left knee Hospital Course: The patient is a 66 year old female with a significant past medical history of spinal stenosis, anemia, asthma, hypertension, hyperlipidemia, diabetes, CHF, CAD s/p stents x2, A-Fib (on coumadin), mitral valve replacements, stents x2, COPD, and CVA (multiple TIAs) who presents to the ED with complaints of left knee pain for several days. The patient reports she has chronic left knee pain and got an injection from her pain management MD on Sunday. Since Sunday, the patient reports progressively worsening left knee pain and edema. She states she uses a walker at baseline but cannot walk or stand secondary to left knee pain. She reports generalized lower back pain associated with present symptoms. Patient also reports a bilateral nose bleed this morning. She reports putting cotton pads with vaseline up her nostrils until the bleeding subsided. during the course of her hospitalization, her left knee was drained x [address] Mishra. The fluid contained of just blood, no infection was found in the cultures. She was observed for further bleeding in the joint. Coumadin was held , she was placed on Lovenox to reduce the risk of thromboembolism due to mitral valve replacement. Coumadin was started again yesterday after re-evaluation of the knee by Dr Hamilton- orthopedic, once it was decided that re-aspiration was not indicated. Goal: To maintain on lovenox until she reaches therapeutic INR of 2.5-3.5 on coumadin , recheck INR daily. Pain management Physical rehab with knee brace Early ambulation Condition: Stable - Instructions Referrals: Jose España MD [Primary Care Provider] - Disposition: HALFWAY FACILITY - Home Medications Comprehensive Discharge Medication List: Ambulatory Orders Albuterol 0.083% Nebulizer Brigitte [Ventolin 0.083% Nebulizer Soln -] 1 neb NEB QID 02/01/16 Bupropion HBr [Aplenzin] 300 mg PO DAILY 02/01/16 Carbidopa/Levodopa [Carbidopa-Levodopa 25-100 Tab] 1 each PO AC 02/01/16 Cholecalciferol (Vitamin D3) [Vitamin D3] 5,000 unit PO WEEKLY 02/01/16 Citalopram Hydrobromide [Citalopram HBr] 10 mg PO HS 02/01/16 Digoxin [Lanoxin -] 0.125 mg PO DAILY 02/01/16 Docusate Sodium [Colace -] 100 mg PO TID 02/01/16 Enoxaparin Sodium [Lovenox] 100 mg SQ BID 02/01/16 Ferrous Sulfate [Feosol] 325 mg PO DAILY 02/01/16 Fluticasone Propionate [Flonase Allergy Relief] 2 inh NS BID 02/01/16 Insulin Detemir [Levemir Flextouch] 30 units SQ DAILY 02/01/16 Insulin Sliding Scale [Novolog Vial Sliding Scale -] 0 units SQ ACHS 02/01/16 Montelukast Na [Singulair -] 10 mg PO HS 02/01/16 [place]-3 Acid Ethyl Esters [Lovaza] 1 gm PO BID 02/01/16 Omeprazole 20 mg PO DAILY 02/01/16 Oxycodone HCl 5 mg PO BID PRN 02/01/16 Polyethylene Glycol 3350 [Miralax 119 gm Btl -] 17 gm PO DAILY 02/01/16 Potassium Chloride 40 meq PO DAILY 02/01/16 Pramipexole Di-HCl [Pramipexole Dihydrochloride] 0.75 mg PO DAILY 02/01/16 Pramipexole Di-HCl [Pramipexole Dihydrochloride] 1.5 mg PO HS 02/01/16 Ranolazine [Ranexa -] 500 mg PO BID 02/01/16 Sennosides [Senna] 2 tab PO HS 02/01/16 Sodium Chloride [Saline Nasal [place]] 1 ml NS Q6H PRN 02/01/16 Topiramate [Topiramate ER] 150 mg PO BID 02/01/16 Torsemide [Demadex -] 40 mg PO DAILY 02/01/16 Tramadol HCl 50 mg PO Q6H PRN 02/01/16 Verapamil HCl [Verapamil ER] 240 mg PO DAILY 02/01/16 Warfarin Na [Coumadin -] 12 mg PO HS 02/01/16 Acetaminophen [Tylenol .Regular Strength -] 650 mg PO Q6H PRN #0 tablet Bupropion HCl [Wellbutrin Xl -] 300 mg PO DAILY #30 tab 09/03/16 Carbidopa/Levodopa 25/100 [Sinemet 25/100 -] 1 each PO HS tablet 09/03/16 Citalopram Hydrobromide [Celexa -] 10 mg PO DAILY tablet 09/03/16 Digoxin [Lanoxin -] 0.125 mg PO DAILY #30 tablet 09/03/16 Enoxaparin [Lovenox -] 100 mg SQ BID #60 each 09/03/16 Fluticasone Prop 0.05% Nasal [Flonase -] 2 spray NS DAILY spray 09/03/16 Insulin (Levemir) [Levemir Vial] 30 units SQ HS ml 09/03/16 Insulin Sliding Scale [Novolog Vial Sliding Scale -] 1 vial SQ ACHS units 09/03 Lidocaine 5% Patch [Lidoderm -] 1 patch TP DAILY patch 09/03/16 Lidocaine Patch Removal [Lidoderm Patch Removal] 1 each MC DAILY@2200 each Montelukast Na [Singulair -] 10 mg PO HS tablet 09/03/16 Nystatin Oral Suspension - [Nystatin Oral Susp 479996 Units/5 ML -] 500,000 units PO Q6HPO bot 09/03/16 Oxycodone HCl/Acetaminophen [Oxycodone-Acetaminophen 5-325] 1 each PO Q6H PRN # 120 tablet MDD 4 09/03/16 Oxycodone Sr [Oxycontin] 10 mg PO BID #60 tab MDD 2 09/03/16 Pantoprazole Sodium [Protonix -] 40 mg PO DAILY tab 09/03/16 Pramipexole Dihydrochloride [Mirapex -] 1.5 mg PO HS tablet 09/03/16 Ranolazine [Ranexa -] 500 mg PO BID tab 09/03/16 Sodium Chloride Nasal [place] [[place] Nasal [place] -] 2 spray NS BID PRN #0 spray 09/03/16 Topiramate [Topamax -] 150 mg PO BID tablet 09/03/16 Torsemide [Demadex -] 40 mg PO BID tablet 09/03/16
[2016-09-03] MEDS ORDERED: WARFARIN NA 5 MG TABLET (UD) PO ONE (12:30)
== END 2016-09-03 16:00 | DRG 565 ==
LOC: JER 19:50 → JERBED 23:14 → UNDOADMIN 08-26 00:19 → JERBED 08-26 00:19 → J8W 08-26 01:43
PROVIDERS: ADMIT Family Medicine; ATTEND Family Medicine
PROC: 0S9D3ZZ Drainage of Left Knee Joint, Percutaneous Approach (ICD-10-PCS; principal; 2016-08-26)
DX: M25.462 Effusion, left knee (principal); I50.30 Unspecified diastolic (congestive) heart failure; I48.0 Paroxysmal atrial fibrillation; J44.9 Chronic obstructive pulmonary disease, unspecified; E11.9 Type 2 diabetes mellitus without complications; G47.33 Obstructive sleep apnea (adult) (pediatric); I25.10 Atherosclerotic heart disease of native coronary artery without angina pectoris; Z98.61 Coronary angioplasty status; Z95.1 Presence of aortocoronary bypass graft; E78.5 Hyperlipidemia, unspecified; I11.0 Hypertensive heart disease with heart failure; D72.829 Elevated white blood cell count, unspecified; E87.6 Hypokalemia; Z79.4 Long term (current) use of insulin
CPT/HCPCS: 36415; 71010-TC; 73560-TC-LT; 73700-TC-RT; 80048; 80053; 80162; 81003; 81015; 82550; 84484; 85025; 85027; 85610; 85651; 85730; 86140; 87040; 87070; 87086; 87205; 93005; 93010; 97116-GP; 97162-PG; 99283-25; G0480

== ENCOUNTER 2016-10-31 15:56 | Emergency (ER) | payer OTHER ==
[2016-10-31 16:21] VITALS: BP 112/53; PULSE 67; TEMP 98.4; BMI 37.8
--- NOTE | 2016-10-31 16:51 | PDOC ---
History of Present Illness - General Chief Complaint: Pain, Acute Stated Complaint: LEFT LEG PAIN Time Seen by Provider: 10/31/16 16:35 History Source: Patient - History of Present Illness Occurred: reports: other Severity: Yes: severe Lower Extremity Pain Location: left: leg Past History - Past Medical History Allergies/Adverse Reactions: Allergies Allergy/AdvReac Type Severity Reaction Status Date / Time lactose Allergy Mild Verified 10/31/16 16:26 Beta-Blockers Allergy Verified 10/31/16 16:26 (Beta-Adrenergic Bloc Iodinated Contrast- Oral and Allergy Verified 10/31/16 16:26 IV Dye [IV Dye, Iodine Containing Contrast ] shellfish derived Allergy Verified 10/31/16 16:26 Home Medications: Ambulatory Orders Albuterol 0.083% Nebulizer Brigitte [Ventolin 0.083% Nebulizer Soln -] 1 neb NEB QID 02/01/16 Carbidopa/Levodopa [Carbidopa-Levodopa 25-100 Tab] 1 each PO HS 02/01/16 Cholecalciferol (Vitamin D3) [Vitamin D3] 5,000 unit PO WEEKLY 02/01/16 Ferrous Sulfate [Feosol] 325 mg PO DAILY 02/01/16 Fluticasone Propionate [Flonase Allergy Relief] 2 inh NS BID 02/01/16 Insulin Sliding Scale [Novolog Vial Sliding Scale -] 0 units SQ ACHS 02/01/16 Montelukast Na [Singulair -] 10 mg PO HS 02/01/16 [place]-3 Acid Ethyl Esters [Lovaza] 1 gm PO BID 02/01/16 Polyethylene Glycol 3350 [Miralax 119 gm Btl -] 17 gm PO DAILY 02/01/16 Potassium Chloride 60 meq PO DAILY 02/01/16 Sennosides [Senna] 2 tab PO HS 02/01/16 Sodium Chloride [Saline Nasal [place]] 1 ml NS Q6H PRN 02/01/16 Topiramate [Topiramate ER] 150 mg PO BID 02/01/16 Verapamil HCl [Verapamil ER] 240 mg PO DAILY 02/01/16 Warfarin Na [Coumadin -] 10 mg PO DAILY 02/01/16 Acetaminophen [Tylenol .Regular Strength -] 650 mg PO Q6H PRN #0 tablet Bupropion HCl [Wellbutrin Xl -] 300 mg PO DAILY #30 tab 09/03/16 Citalopram Hydrobromide [Celexa -] 10 mg PO DAILY tablet 09/03/16 Digoxin [Lanoxin -] 0.125 mg PO DAILY #30 tablet 09/03/16 Insulin (Levemir) [Levemir Vial] 30 units SQ HS ml 09/03/16 Lidocaine 5% Patch [Lidoderm -] 1 patch TP DAILY patch 09/03/16 Pantoprazole Sodium [Protonix -] 40 mg PO DAILY tab 09/03/16 Pramipexole Dihydrochloride [Mirapex -] 1.5 mg PO HS tablet 09/03/16 Ranolazine [Ranexa -] 500 mg PO BID tab 09/03/16 Torsemide [Demadex -] 40 mg PO BID tablet 09/03/16 Anemia: Yes Asthma: Yes Cardiac Disorders: Yes (mitral valve replacement, stents x2,a-fib, CAD) CVA: Yes (MULTIPLE TIAs) COPD: Yes (Yes, O2 2L-3L) CHF: Yes Diabetes: Yes GI Disorders: Yes (ulcers, GI bleed, hemorrhoids, diverticulosis) Disorders: Yes (bladder mesh) HTN: Yes Hypercholesterolemia: Yes Suicide Attempt (Hx): No Seizures: Yes Thyroid Disease: No - Surgical History Appendectomy: Yes Cardiac Surgery: Yes (stentsx2, mitral valve replacement, CABG) Cholecystectomy: Yes Orthopedic Surgery: Yes (left knee pain injection) - Immunization History Immunization Up to Date: Yes - Psycho/Social/Smoking Cessation Hx Anxiety: No Suicidal Ideation: No Smoking Status: No Smoking History: Never smoked Have you smoked in the past 12 months: No Number of Cigarettes Smoked Daily: 0 If you are a former smoker, when did you quit?: many years Information on smoking cessation initiated: No Hx Alcohol Use: No Drug/Substance Use Hx: No Substance Use Type: None Hx Substance Use Treatment: No Review of Systems - Review of Systems Constitutional: No: Chills, Fever Respiratory: Yes: Shortness of Breath. No: Cough Cardiac (ROS): Yes: Chest Pain, Palpitations. No: Lightheadedness ABD/GI: No: Nausea, Vomiting Musculoskeletal: Yes: Joint Pain, Joint Swelling *Physical Exam - Vital Signs Last Vital Signs Temp Pulse Resp BP Pulse Ox 98.4 F 67 18 112/53 100 10/31/16 16:16 10/31/16 16:16 10/31/16 16:16 10/31/16 16:16 10/31/16 16:16 - Physical Exam General Appearance: Yes: Appropriately Dressed. No: Apparent Distress HEENT: positive: Normal Voice Neck: positive: Supple Respiratory/Chest: positive: Lungs Clear, Normal Breath Sounds. negative: Respiratory Distress Cardiovascular: positive: Regular Rate, S1, S2 Gastrointestinal/Abdominal: positive: Soft. negative: Tender Extremity: positive: Other (diffuse swelling and tenderness to L leg w/ a ~1cm area of localized non-blanchable macule of unclear etiology, skin warm w/ good pulses, no sig swelling to L knee) Integumentary: positive: Dry, Warm Neurologic: positive: Fully Oriented, Alert, Normal Mood/Affect Heart Score/ECG Review - ECG Intrepretation Comment:: 10/31/16 17:52 EKG w/ NSR w/ TWI in V2 and V3, similar to prior ekg ED Treatment Course - LABORATORY CBC & Chemistry Diagram: 10/31/16 17:45 10/31/16 17:45 - RADIOLOGY Radiology Studies Ordered: Category Date Time Status CHEST CTA [CT] Stat CT Scan 10/31/16 16:45 Ordered CHEST PA & LAT [RAD] Stat Radiology 10/31/16 16:45 Ordered KNEE 2 POS-LEFT [RAD] Stat Radiology 10/31/16 16:45 Ordered DUPLEX VASCUL US-1 LEG [US] Stat Ultrasound 10/31/16 16:44 Ordered Medical Decision Making - Medical Decision Making 10/31/16 16:46 66-year-old female, history of spinal stenosis, anemia, asthma, COPD on oxygen, sleep apnea on CPAP, hypertension, hyperlipidemia, diabetes, CHF, CAD with stents 2, A. fib on Coumadin, mitral valve replacement, CVA, presents to ED with pain and swelling to left lower extremity. Patient was admitted to [facility] for acute on chronic left knee pain in August of this year and was seen by orthopedic, who tapped knee w/ bloody drainage, no infection on culture. Patient was discharged to [facility] for ALLEGRA and discharged 2 weeks ago. States for the past several days has had diffuse swelling and pain to left lower leg including knee and finds it hard to walk with her cane. Also complaining of chest tightness w/ shortness of breath and palpitations since leg pain started and finds it hard to sleep without her oxygen. No diaphoresis, cough, f/c See exam LLE swelling and pain s/p recent admission for L knee pain w/ bloody aspirate on tap by ortho, no infxn on cx S/p ALLEGRA On coumadin for afib No s/o infection on exam -pain control -labs -US r/o DVT Chest tightness w/ sob R/o ACS vs PE, unlikely dissection -ekg -cxr -labs -CTA 10/31/16 18:53 CT called to say that patient reports that she is allergic to IV contrast and hence cannot have CTA. Of note DVT study neg and ekg and labs unremarkable. Patient will most likely need admission for VQ scan and for severe left leg pain with inability to bear weight. PCP is Dr España. Patient signed out to [employer] Tarsha Bradford 10/31/16 18:54 10/31/16 18:55 *DC/Admit/Observation/Transfer Diagnosis at time of Disposition: SOB (shortness of breath), Left leg pain - Discharge Dispostion Disposition: HOME Condition at time of disposition: Good - Referrals Referrals: Jose España MD [Primary Care Provider] - - Patient Instructions Printed Discharge Instructions: DI for Shortness of Breath, DI for Leg Pain Additional Instructions: Please continue taking all your medications as prescribed. I have discussed the case with Dr. España; please follow up with him in his office by the end of the week. If you experience any increased chest pain, shortness of breath, palpitations, headache, change in vision, fever, chills, vomiting, or any new or worsening symptoms, please return to the ER.
--- NOTE | 2016-10-31 17:09 | PDOC ---
*Physical Exam - Vital Signs Last Vital Signs Temp Pulse Resp BP Pulse Ox 98.4 F 67 18 112/53 100 10/31/16 16:16 10/31/16 16:16 10/31/16 16:16 10/31/16 16:16 10/31/16 16:16 ED Treatment Course - LABORATORY CBC & Chemistry Diagram: 10/31/16 17:45 10/31/16 17:45 Medical Decision Making - Medical Decision Making 10/31/16 17:08 Pt seen by Midlevel Provider under my direct supervision Ancillary studies reviewed I agree with plan as outlined by Midlevel Provider *DC/Admit/Observation/Transfer Diagnosis at time of Disposition: SOB (shortness of breath), Left leg pain - Discharge Dispostion Disposition: HOME Condition at time of disposition: Good - Referrals Referrals: Jose España MD [Primary Care Provider] - - Patient Instructions Printed Discharge Instructions: DI for Shortness of Breath, DI for Leg Pain Additional Instructions: Please continue taking all your medications as prescribed. I have discussed the case with Dr. España; please follow up with him in his office by the end of the week. If you experience any increased chest pain, shortness of breath, palpitations, headache, change in vision, fever, chills, vomiting, or any new or worsening symptoms, please return to the ER.
[2016-10-31] MEDS ORDERED: traMADol HCL 50 MG TABLET PO ONE (17:44)
[2016-10-31] MEDS ORDERED: traMADol HCL 50 MG TABLET ONE (17:48)
[2016-10-31 17:50] LABS: BASOPHIL 1.5 % (0-2.0); EOSINOPHIL 2.8 % (0-4.5); MCH 27.8 pg (25.7-33.7); MCHC 32.5 g/dl (32.0-36.0); MEAN CELL VOLUME 85.7 fl (80-96); MEAN PLT VOLUME 9.5 fl (7.5-11.1); NEUTROPHILS 65.3 % (42.8-82.8); PLATELET COUNT 265 K/MM3 (134-434); RDW 16.6 % (11.6-15.6); WHITE BLOOD COUNT 9.9 K/mm3 (4.0-10.0)
[2016-10-31 18:26] LABS: ALBUMIN 3.6 g/dl (3.4-5.0); ANION GAP 9 (8-16); BILIRUBIN,TOTAL 0.2 mg/dL (0.2-1.0); CALCIUM 8.9 mg/dL (8.5-10.1); CO2 27 mmol/L (21-32); CREATININE 1.3 mg/dL (0.55-1.02); GLUCOSE,RANDOM 97 mg/dL (74-106); SGOT/AST 14 U/L (15-37); SGPT/ALT 15 U/L (12-78); TOT PROT 7.4 g/dl (6.4-8.2)
[2016-10-31 18:28] LABS: ALK PHOS 108 U/L (45-117); CPK 42 IU/L (26-192); TROPONIN I < 0.02 ng/ml (0.00-0.05)
[2016-10-31] MEDS ORDERED: SODIUM CHLORIDE 0.9% 1000 ML INFUS.BAG IV ONE ×2 (19:35)
--- NOTE | 2016-10-31 21:29 | PDOC ---
*Physical Exam - Vital Signs Last Vital Signs Temp Pulse Resp BP Pulse Ox 98.4 F 67 18 112/53 100 10/31/16 16:16 10/31/16 16:16 10/31/16 16:16 10/31/16 16:16 10/31/16 16:16 - Physical Exam Comments: 10/31/16 21:28 Sign-out received from outgoing ER provider Angely. Pt interviewed and examined. Ancillary studies reviewed. Patient is a 66 yo F with significany PMH including anemia, asthma, COPD on oxygen, sleep apnea on CPAP, hypertension, hyperlipidemia, diabetes, CHF, CAD with stents 2, A. fib on Coumadin, mitral valve replacement, CVA, history of spinal stenosis, who is here today with pain and swelling to left lower extremity as well as SOB, "chest tightness", and palpitations. Patient was ordered for CTA but due to iodine allergy, CTA was cancelled and patient was pending admission for V/Q scan tomorrow. At this time patient states that she wants the CTA and has had contrast in the past "but the doctors gave me some medication before doing the contrast." Patient is on Coumadin. -D-dimer -PT/INR 10/31/16 21:15 Patient INR therapeutic, D-dimer <200, at this time there is very low suspicion for PE. Patient reassessed; at this time she states she feels comfortable going home and managing her pain with her oxycodone rxed by Dr. España. Will discuss dispo with PCP [facility] as patient is stable at this time but with multiple comorbidities, obvs vs close outpatient f/u. Dr. España paged. 10/31/16 21:55 Dr. España paged again. 10/31/16 22:[address] España; patient is stable to go home and f/u outpatient. Advised patient to continue taking medications as prescribed and of signs and symptoms for return to ER; patient verbalized understanding and agrees to plan. ED Treatment Course - LABORATORY CBC & Chemistry Diagram: 10/31/16 17:45 10/31/16 17:45 - ADDITIONAL ORDERS Additional order review: Laboratory Results 10/31/16 10/31/16 19:55 17:45 D-Dimer < 200 Sodium 141 Potassium 3.8 Chloride 105 Carbon Dioxide 27 Anion Gap 9 BUN 28 H D Creatinine 1.3 H D Creat Clearance w eGFR 41.11 Random Glucose 97 Calcium 8.9 Total Bilirubin 0.2 D AST 14 L D ALT 15 D Alkaline Phosphatase 108 D Creatine Kinase 42 Troponin I < 0.02 Total Protein 7.4 Albumin 3.6 D 10/31/16 17:45 RBC 4.42 MCV 85.7 MCHC 32.5 RDW 16.6 H MPV 9.5 Neutrophils % 65.3 Lymphocytes % 21.4 D Monocytes % 9.0 Eosinophils % 2.8 Basophils % 1.5 - Medications Given in the ED: ED Medications Discontinued Medications Generic Name Dose Route Start Last Admin Trade Name Freq PRN Reason Stop Dose Admin Sodium Chloride 500 ml 10/31/16 19:35 10/31/16 19:58 Normal Saline - IV 10/31/16 19:36 500 ml ONCE ONE Administration Tramadol HCl 50 mg 10/31/16 17:44 10/31/16 17:49 Ultram - PO 10/31/16 17:45 50 mg ONCE ONE Administration *DC/Admit/Observation/Transfer Diagnosis at time of Disposition: SOB (shortness of breath), Left leg pain - Discharge Dispostion Disposition: HOME Condition at time of disposition: Good Admit: No - Referrals Referrals: Jose España MD [Primary Care Provider] - - Patient Instructions Printed Discharge Instructions: DI for Shortness of Breath, DI for Leg Pain Additional Instructions: Please continue taking all your medications as prescribed. I have discussed the case with Dr. España; please follow up with him in his office by the end of the week. If you experience any increased chest pain, shortness of breath, palpitations, headache, change in vision, fever, chills, vomiting, or any new or worsening symptoms, please return to the ER.
[2016-10-31 21:42] LABS: INR 2.4 (0.82-1.09); PROTHROMBIN TIME (PATIENT) 26.9 SEC (9.98-11.88)
--- NOTE | 2016-11-01 16:41 | EKG ---
Test Reason : Blood Pressure : / mmHG Vent. Rate : 064 BPM Atrial Rate : 064 BPM P-R Int : 130 ms QRS Dur : 090 ms QT Int : 404 ms P-R-T Axes : 000 041 -09 degrees QTc Int : 416 ms NORMAL SINUS RHYTHM RSR' OR QR PATTERN IN V1 SUGGESTS RIGHT VENTRICULAR CONDUCTION DELAY T WAVE ABNORMALITY, CONSIDER ANTERIOR ISCHEMIA ABNORMAL ECG WHEN COMPARED WITH ECG OF 25-AUG-2016 23:41, NO SIGNIFICANT CHANGE WAS FOUND Confirmed by CHAS GRACE MD ([id number]) on 11/01/2016 4:41:17 PM Referred By: Confirmed By:CHAS GRACE MD
== END 2016-10-31 22:22 | disposition home or self-care (01) ==
LOC: JER 15:56
DX: R06.02 Shortness of breath (principal); M79.605 Pain in left leg; D64.9 Anemia, unspecified; J45.909 Unspecified asthma, uncomplicated; J44.9 Chronic obstructive pulmonary disease, unspecified; I25.10 Atherosclerotic heart disease of native coronary artery without angina pectoris; Z86.73 Personal history of transient ischemic attack (TIA), and cerebral infarction without residual deficits; I50.9 Heart failure, unspecified; E11.9 Type 2 diabetes mellitus without complications; E78.5 Hyperlipidemia, unspecified; K25.9 Gastric ulcer, unspecified as acute or chronic, without hemorrhage or perforation; I10 Essential (primary) hypertension; G40.909 Epilepsy, unspecified, not intractable, without status epilepticus; M48.00 Spinal stenosis, site unspecified; G47.30 Sleep apnea, unspecified; Z99.89 Dependence on other enabling machines and devices; Z99.81 Dependence on supplemental oxygen; Z91.011 Allergy to milk products; Z91.041 Radiographic dye allergy status; Z91.013 Allergy to seafood; Z88.8 Allergy status to other drugs, medicaments and biological substances; Z95.1 Presence of aortocoronary bypass graft; Z79.4 Long term (current) use of insulin; Z79.01 Long term (current) use of anticoagulants
CPT/HCPCS: 36415; 71020-TC; 73560-TC-LT; 80053; 84484; 85025; 85379; 85610; 93005; 93010; 93971-TC; 99282-25

== ENCOUNTER 2017-03-20 17:52 | Inpatient (IN) | payer OTHER ==
[2017-03-20 18:13] VITALS: BMI 41.0
--- NOTE | 2017-03-20 18:35 | PDOC ---
History of Present Illness - General History Source: Patient Exam Limitations: No Limitations - History of Present Illness Initial Comments: 03/20/17 18:35 The patient is a 66 year old female, with a significant past medical history of anemia, asthma, COPD on O2, sleep apnea on CPAP, HTN, hyperlipidemia, DM, CHF, CAD x2 stents, afib on coumadin, mitral valve replacement, CVA, spinal stenosis who presents to the emergency department with cough for about 2 weeks. The patient reports having intermittent fever and cough. Patient saw who gave her prednisone with no relief of her pain. The patient notes her cough is productive often bringing up white sputum She notes also having chest pain and back pain that is agitated by her cough and with any movement. She denies recent chills, headache or dizziness. She denies recent nausea, vomit, diarrhea or constipation. Allergies: Penicillin Past surgical history: See HPI Social history: Nonsmoker. Denies EtOH use and recreational drug use. Primary Care Physician: <Romain Thompson - Last Filed: 03/20/17 18:35> <Dayana Reyes - Last Filed: 03/24/17 12:05> - General Chief Complaint: Respiratory Stated Complaint: SOB Time Seen by Provider: 03/20/17 18:05 Past History <Romain Thompson - Last Filed: 03/20/17 18:35> - Past Medical History Anemia: Yes Asthma: Yes Cardiac Disorders: Yes (mitral valve replacement, stents x2,a-fib, CAD) CVA: Yes (MULTIPLE TIAs) COPD: Yes (Yes, O2 2L-3L) CHF: Yes Diabetes: Yes GI Disorders: Yes (ulcers, GI bleed, hemorrhoids, diverticulosis) Disorders: Yes (bladder mesh) HTN: Yes Hypercholesterolemia: Yes Seizures: Yes Thyroid Disease: No - Surgical History Appendectomy: Yes Cardiac Surgery: Yes (stentsx2, mitral valve replacement, CABG) Cholecystectomy: Yes Orthopedic Surgery: Yes (left knee pain injection) - Immunization History Immunization Up to Date: Yes - Suicide/Smoking/Psychosocial Hx Smoking Status: No Smoking History: Never smoked Have you smoked in the past 12 months: No Number of Cigarettes Smoked Daily: 0 If you are a former smoker, when did you quit?: many years Information on smoking cessation initiated: No Hx Alcohol Use: No Drug/Substance Use Hx: No Substance Use Type: None Hx Substance Use Treatment: No <Dayana Reyes - Last Filed: 03/24/17 12:05> - Past Medical History Allergies/Adverse Reactions: Allergies Allergy/AdvReac Type Severity Reaction Status Date / Time lactose Allergy Mild Verified 03/20/17 18:08 Beta-Blockers Allergy Verified 03/20/17 18:08 (Beta-Adrenergic Bloc Iodinated Contrast- Oral and Allergy Verified 03/20/17 18:08 IV Dye [IV Dye, Iodine Containing Contrast ] shellfish derived Allergy Verified 03/20/17 18:08 Home Medications: Ambulatory Orders Albuterol 0.083% Nebulizer Brigitte [Ventolin 0.083% Nebulizer Soln -] 1 neb NEB QID 02/01/16 Carbidopa/Levodopa [Carbidopa-Levodopa 25-100 Tab] 1 each PO HS 02/01/16 Cholecalciferol (Vitamin D3) [Vitamin D3] 1,000 unit PO DAILY 02/01/16 Ferrous Sulfate [Feosol] 325 mg PO DAILY 02/01/16 Insulin Sliding Scale [Novolog Vial Sliding Scale -] 0 units SQ ACHS 02/01/16 Montelukast Na [Singulair -] 10 mg PO HS 02/01/16 [place]-3 Acid Ethyl Esters [Lovaza] 1 gm PO BID 02/01/16 Polyethylene Glycol 3350 [Miralax 119 gm Btl -] 17 gm PO DAILY 02/01/16 Potassium Chloride 60 meq PO DAILY 02/01/16 Sennosides [Senna] 2 tab PO HS 02/01/16 Topiramate [Topiramate ER] 150 mg PO BID 02/01/16 Verapamil HCl [Verapamil ER] 240 mg PO DAILY 02/01/16 Warfarin Na [Coumadin -] 14 mg PO DAILY 02/01/16 Acetaminophen [Tylenol .Regular Strength -] 650 mg PO Q6H PRN #0 tablet Bupropion HCl [Wellbutrin Xl -] 300 mg PO DAILY #30 tab 09/03/16 Citalopram Hydrobromide [Celexa -] 10 mg PO DAILY tablet 09/03/16 Digoxin [Lanoxin -] 0.125 mg PO DAILY #30 tablet 09/03/16 Insulin (Levemir) [Levemir Vial] 30 units SQ HS ml 09/03/16 Lidocaine 5% Patch [Lidoderm -] 1 patch TP DAILY patch 09/03/16 Pantoprazole Sodium [Protonix -] 40 mg PO DAILY tab 09/03/16 Pramipexole Dihydrochloride [Mirapex -] 1.5 mg PO HS tablet 09/03/16 Ranolazine [Ranexa -] 500 mg PO BID tab 09/03/16 Erythromycin 0.5% Eye Ointment [Erythromycin 0.5% Eye Ointment -] 1 applic OU DAILY 03/20/17 Ketotifen Fumarate [Eye Itch Relief] 1 drop OU BID 03/20/17 Nitroglycerin [Nitrostat] 0.4 mg SL PRN PRN 03/20/17 Polyvinyl Alcohol [Artificial Tears] 1 drop OU ASDIR 03/20/17 Torsemide [Demadex -] 60 mg PO BID 03/20/17 Review of Systems - Review of Systems Able to Perform ROS?: Yes Comments:: 03/20/17 18:35 GENERAL/CONSTITUTIONAL: +fever No chills. No weakness. HEAD, EYES, EARS, NOSE AND THROAT: No change in vision. No ear pain or discharge. No sore throat. CARDIOVASCULAR: + chest pain and shortness of breath. RESPIRATORY: +cough No wheezing, or hemoptysis. GASTROINTESTINAL: No nausea, vomiting, diarrhea or constipation. GENITOURINARY: No dysuria, frequency, or change in urination. MUSCULOSKELETAL: No joint or muscle swelling or pain. No neck or back pain. SKIN: No rash NEUROLOGIC: No headache, vertigo, loss of consciousness, or change in strength/ sensation. ENDOCRINE: No increased thirst. No abnormal weight change. HEMATOLOGIC/LYMPHATIC: No anemia, easy bleeding, or history of blood clots. ALLERGIC/IMMUNOLOGIC: No hives or skin allergy. <Romain Thompson - Last Filed: 03/20/17 18:35> *Physical Exam - Vital Signs Last Vital Signs Temp Pulse Resp BP Pulse Ox 98.7 F 70 20 153/58 99 03/20/17 18:10 03/20/17 18:10 03/20/17 18:10 03/20/17 18:10 03/20/17 18:10 <Romain Thompson - Last Filed: 03/20/17 18:35> - Vital Signs Last Vital Signs Temp Pulse Resp BP Pulse Ox 98.7 F 70 20 153/58 99 03/20/17 18:10 03/20/17 18:10 03/20/17 18:10 03/20/17 18:10 03/20/17 18:10 - Physical Exam Comments: GENERAL: Awake, alert, and fully oriented, in no acute distress. Morbidly obese. HEAD: No signs of trauma EYES: PERRLA, EOMI, sclera anicteric, conjunctiva clear ENT: Auricles normal inspection, hearing grossly normal, nares patent, oropharynx clear without exudates. Dry mucosa NECK: Normal ROM, supple, no lymphadenopathy, JVD, or masses LUNGS: Dec air entry B/L, +coarse crackles at the L base. No wheezes, and no crackles HEART: Regular rate and rhythm, normal S1 and S2, no murmurs, rubs or gallops ABDOMEN: Soft, nontender, normoactive bowel sounds. No guarding, no rebound. No masses EXTREMITIES: Normal range of motion, no edema. No clubbing or cyanosis. No cords, erythema, or tenderness NEUROLOGICAL: Cranial nerves II through XII grossly intact. Normal speech, normal gait SKIN: Warm, Dry, normal turgor, no rashes or lesions noted. <Dayana Reyes - Last Filed: 03/24/17 12:05> ED Treatment Course - LABORATORY CBC & Chemistry Diagram: 03/24/17 06:20 03/23/17 06:00 <Dayana Reyes - Last Filed: 03/24/17 12:05> Medical Decision Making - Medical Decision Making 03/20/17 19:[address] Quinn at 7pm shift change. Recent arrival in ED, just evaluated. Will plan for nebs, steroids, and abx. Likely admission. <Dayana Reyes - Last Filed: 03/24/17 12:05> *DC/Admit/Observation/Transfer - Attestations Scribe Attestion: 03/20/17 18:36 Documentation prepared by Romain Thompson, acting as special forces medical sergeant for Dayana Reyes MD, /DO. <Romain Thompson - Last Filed: 03/20/17 18:35> <Dayana Reyes - Last Filed: 03/24/17 12:05> Diagnosis at time of Disposition: COPD (chronic obstructive pulmonary disease) Qualifiers: COPD type: COPD with acute exacerbation Qualified Code(s): J44.1 - Chronic obstructive pulmonary disease with (acute) exacerbation - Discharge Dispostion Condition at time of disposition: Stable
[2017-03-20] MEDS ORDERED: ALBUTEROL SO4 2.5/IPRATROPIUM 0.5 INH SOL 3 ML VIAL.NEB. NEB ONE ×2 (19:07→20:45)
[2017-03-20] MEDS: ALBUTEROL SO4 2.5/IPRATROPIUM 0.5 INH SOL 3 ML VIAL.NEB. NEB SCH ×3 (19:09→19:40)
[2017-03-20 19:12] LABS: BASO % 1.3 % (0-2.0); HEMATOCRIT 43.1 % (32.4-45.2); HEMOGLOBIN 13.9 GM/dL (10.7-15.3); LYMPH % 23.9 % (8-40); MCH 29.4 pg (25.7-33.7); MCHC 32.3 g/dl (32.0-36.0); MEAN CELL VOLUME 91.1 fl (80-96); MEAN PLT VOLUME 9.6 fl (7.5-11.1); MONO % 9.8 % (3.8-10.2); PLATELET COUNT 313 K/MM3 (134-434); RBC 4.73 M/mm3 (3.60-5.2); RDW 17.2 % (11.6-15.6); WHITE BLOOD COUNT 9.7 K/mm3 (4.0-10.0)
[2017-03-20 19:27] LABS: INR 3.09 (0.82-1.09); PROTHROMBIN TIME (PATIENT) 34.9 SEC (9.98-11.88)
[2017-03-20 19:41] LABS: ALBUMIN 3.6 g/dl (3.4-5.0); ANION GAP 8 (8-16); BILIRUBIN,TOTAL 0.3 mg/dL (0.2-1.0); BLOOD UREA NITROGEN 24 mg/dL (7-18); CALCIUM 8.8 mg/dL (8.5-10.1); CHLORIDE 109 mmol/L (98-107); CO2 23 mmol/L (21-32); CREATININE 1.2 mg/dL (0.55-1.02); GLUCOSE,RANDOM 107 mg/dL (74-106); SGOT/AST 11 U/L (15-37); SGPT/ALT 10 U/L (12-78); SODIUM 140 mmol/L (136-145); TOT PROT 7.2 g/dl (6.4-8.2)
[2017-03-20 19:53] LABS: ALK PHOS 84 U/L (45-117)
[2017-03-20] MEDS ORDERED: methylPREDNISolone NA SUCC 125 MG/2 ML VIAL IVPB ONE (20:27)
[2017-03-20] MEDS ORDERED: methylPREDNISolone NA SUCC 125 MG/2 ML VIAL ONE (20:34)
--- NOTE | 2017-03-20 20:57 | PDOC ---
*Physical Exam - Vital Signs Last Vital Signs Temp Pulse Resp BP Pulse Ox 98.7 F 78 20 153/58 96 03/20/17 18:10 03/20/17 20:16 03/20/17 18:10 03/20/17 18:10 03/20/17 20:16 ED Treatment Course - LABORATORY CBC & Chemistry Diagram: 03/20/17 19:00 03/20/17 19:00 - ADDITIONAL ORDERS Additional order review: Laboratory Results 03/20/17 03/20/17 19:00 19:00 PT with INR 34.90 H INR 3.09 H Sodium 140 Potassium 4.0 Chloride 109 H Carbon Dioxide 23 Anion Gap 8 BUN 24 H Creatinine 1.2 H Creat Clearance w eGFR 45.09 Random Glucose 107 H Calcium 8.8 Total Bilirubin 0.3 AST 11 L D ALT 10 L D Alkaline Phosphatase 84 Total Protein 7.2 Albumin 3.6 Digoxin 0.6662 L 03/20/17 20:10 Respiratory Syncytial Virus Ag - Final Nasopharyngeal Swab Influenza Types A,B Antigen (EVELIA) - Final - Final 03/20/17 19:00 RBC 4.73 MCV 91.1 D MCHC 32.3 RDW 17.2 H MPV 9.6 Neutrophils % 63.0 Lymphocytes % 23.9 Monocytes % 9.8 Eosinophils % 2.0 Basophils % 1.3 - Medications Given in the ED: ED Medications Discontinued Medications Generic Name Dose Route Start Last Admin Trade Name Freq PRN Reason Stop Dose Admin Albuterol/Ipratropium 1 amp 03/20/17 18:45 03/20/17 19:40 Duoneb - NEB 03/20/17 19:16 1 amp Q15M CHRIS Administration Methylprednisolone Sodium Succinate 125 mg 03/20/17 20:27 03/20/17 20:31 Solu-Medrol - IVPB 03/20/17 20:28 125 mg ONCE ONE Administration *DC/Admit/Observation/Transfer Diagnosis at time of Disposition: COPD (chronic obstructive pulmonary disease) - Discharge Dispostion Condition at time of disposition: Stable Admit: Yes - Referrals Referrals: Jose España MD [Primary Care Provider] - - Patient Instructions - Post Discharge Activity
[2017-03-20] MEDS ORDERED: ALBUTEROL SO4 0.083% IH SOL 2.5 MG/3 ML VIAL.NEB. NEB PRN (23:07)
[2017-03-20] MEDS ORDERED: ACETAMINOPHEN 325 MG TABLET (FP) PO PRN (23:08)
[2017-03-20] MEDS ORDERED: WARFARIN NA 5 MG TABLET (UD) PO SCH (23:11)
--- NOTE | 2017-03-20 23:18 | HP ---
CHIEF COMPLAINT: Shortness of Breath PCP: Dr. España HISTORY OF PRESENT ILLNESS: 66 yo F with pmhx of anemia, asthma, COPD on home 02, sleep apnea on CPAP, HTN, HLDm DM, CHF, CAD X2 stents, afib on Coumadin, MVR, CVA, Spinal stenosis who presents with cough X2 weeks. Pt. reports having cough and subjective fevers at home. States she saw Dr. España who placed her on prednisone. States that she has also had right sided chest pain radiating to right side ER course was notable for: (1) EKG- NSR 70 QtC 412 (2) CXR- No Acute Process (3) Nebs given Recent Travel: No PAST MEDICAL HISTORY: As above PAST SURGICAL HISTORY: CABg, Choleycystectomy, Hysterectomy, Oopherectomy Social History: Smoking: Remote Quit Age 20s Alcohol: No Drugs: No Family History: Allergies lactose Allergy (Mild, Verified 03/20/17 18:08) Beta-Blockers (Beta-Adrenergic Bloc Allergy (Verified 03/20/17 18:08) Iodinated Contrast- Oral and IV Dye [IV Dye, Iodine Containing Contrast ] Allergy (Verified 03/20/17 18:08) shellfish derived Allergy (Verified 03/20/17 18:08) HOME MEDICATIONS: Home Medications Medication Instructions Recorded Albuterol 0.083% Nebulizer Brigitte 1 neb NEB QID 02/01/16 [Ventolin 0.083% Nebulizer Soln -] Carbidopa/Levodopa 1 each PO HS 02/01/16 [Carbidopa-Levodopa 25-100 Tab] Cholecalciferol (Vitamin D3) 1,000 unit PO DAILY 02/01/16 [Vitamin D3] Ferrous Sulfate [Feosol] 325 mg PO DAILY 02/01/16 Insulin Sliding Scale [Novolog 0 units SQ ACHS 02/01/16 Vial Sliding Scale -] Montelukast Na [Singulair -] 10 mg PO HS 02/01/16 [place]-3 Acid Ethyl Esters [Lovaza] 1 gm PO BID 02/01/16 Polyethylene Glycol 3350 [Miralax 17 gm PO DAILY 02/01/16 119 gm Btl -] Potassium Chloride 60 meq PO DAILY 02/01/16 Sennosides [Senna] 2 tab PO HS 02/01/16 Topiramate [Topiramate ER] 150 mg PO BID 02/01/16 Verapamil HCl [Verapamil ER] 240 mg PO DAILY 02/01/16 Warfarin Na [Coumadin -] 14 mg PO DAILY 02/01/16 Acetaminophen [Tylenol .Regular 650 mg PO Q6H PRN #0 tablet 09/03/16 Strength -] Bupropion HCl [Wellbutrin Xl -] 300 mg PO DAILY #30 tab 09/03/16 Citalopram Hydrobromide [Celexa -] 10 mg PO DAILY tablet 09/03/16 Digoxin [Lanoxin -] 0.125 mg PO DAILY #30 tablet 09/03/16 Insulin (Levemir) [Levemir Vial] 30 units SQ HS ml 09/03/16 Lidocaine 5% Patch [Lidoderm -] 1 patch TP DAILY patch 09/03/16 Pantoprazole Sodium [Protonix -] 40 mg PO DAILY tab 09/03/16 Pramipexole Dihydrochloride 1.5 mg PO HS tablet 09/03/16 [Mirapex -] Ranolazine [Ranexa -] 500 mg PO BID tab 09/03/16 Erythromycin 0.5% Eye Ointment 1 applic OU DAILY 03/20/17 [Erythromycin 0.5% Eye Ointment -] Ketotifen Fumarate [Eye Itch 1 drop OU BID 03/20/17 Relief] Nitroglycerin [Nitrostat] 0.4 mg SL PRN PRN 03/20/17 Polyvinyl Alcohol [Artificial 1 drop OU ASDIR 03/20/17 Tears] Torsemide [Demadex -] 60 mg PO BID 03/20/17 REVIEW OF SYSTEMS CONSTITUTIONAL: Absent: fever, chills, diaphoresis, generalized weakness, malaise, loss of appetite, weight change HEENT: Absent: rhinorrhea, nasal congestion, throat pain, throat swelling, difficulty swallowing, mouth swelling, ear pain, eye pain, visual changes CARDIOVASCULAR: + chest pain, syncope, palpitations, irregular heart rate, lightheadedness, peripheral edema RESPIRATORY: Absent: cough, + shortness of breath, No dyspnea with exertion, orthopnea, wheezing, stridor, hemoptysis GASTROINTESTINAL: Absent: abdominal pain, abdominal distension, nausea, vomiting, diarrhea, constipation, melena, hematochezia GENITOURINARY: Absent: dysuria, frequency, urgency, hesitancy, hematuria, flank pain, genital pain MUSCULOSKELETAL: Absent: myalgia, arthralgia, joint swelling, back pain, neck pain SKIN: Absent: rash, itching, pallor HEMATOLOGIC/IMMUNOLOGIC: Absent: easy bleeding, easy bruising, lymphadenopathy, frequent infections ENDOCRINE: Absent: unexplained weight gain, unexplained weight loss, heat intolerance, cold intolerance NEUROLOGIC: Absent: headache, focal weakness or paresthesias, dizziness, unsteady gait, seizure, mental status changes, bladder or bowel incontinence PSYCHIATRIC: Absent: anxiety, depression, suicidal or homicidal ideation, hallucinations. PHYSICAL EXAMINATION Vital Signs - 24 hr 03/20/17 03/20/17 18:10 20:16 Temperature 98.7 F Pulse Rate 70 78 Respiratory 20 Rate Blood Pressure 153/58 O2 Sat by Pulse 99 96 Oximetry (%) GENERAL: Awake, obese, alert, and fully oriented, in no acute distress. HEAD: Normal with no signs of trauma. EYES: Pupils equal, round and reactive to light, extraocular movements intact, sclera anicteric, conjunctiva clear. No lid lag. EARS, NOSE, THROAT: Ears normal, nares patent, oropharynx clear without exudates. Moist mucous membranes. NECK: Normal range of motion, supple without lymphadenopathy, JVD, or masses. LUNGS: Mild Expiratory Wheezing HEART: Regular rate and rhythm, normal S1 and S2 without murmur, rub or gallop. ABDOMEN: Soft, nontender, not distended, normoactive bowel sounds, no guarding, no rebound, no masses. No hepatomegaly or splenomegaly. MUSCULOSKELETAL: Normal range of motion at all joints. No bony deformities or tenderness. No CVA tenderness. UPPER EXTREMITIES: 2+ pulses, warm, well-perfused. No cyanosis. No clubbing. No peripheral edema. LOWER EXTREMITIES: 2+ pulses, warm, well-perfused. No calf tenderness. No peripheral edema. NEUROLOGICAL: Cranial nerves II-XII intact. Normal speech. PSYCHIATRIC: Cooperative. Good eye contact. Appropriate mood and affect. SKIN: Warm, dry, normal turgor, no rashes or lesions noted, normal capillary refill. Laboratory Results - last 24 hr 03/20/17 03/20/17 03/20/17 19:00 19:00 19:00 WBC 9.7 RBC 4.73 Hgb 13.9 Hct 43.1 MCV 91.1 D MCH 29.4 MCHC 32.3 RDW 17.2 H Plt Count 313 D MPV 9.6 Neutrophils % 63.0 Lymphocytes % 23.9 Monocytes % 9.8 Eosinophils % 2.0 Basophils % 1.3 PT with INR 34.90 H INR 3.09 H Sodium 140 Potassium 4.0 Chloride 109 H Carbon Dioxide 23 Anion Gap 8 BUN 24 H Creatinine 1.2 H Creat Clearance w eGFR 45.09 Random Glucose 107 H Calcium 8.8 Total Bilirubin 0.3 AST 11 L D ALT 10 L D Alkaline Phosphatase 84 Total Protein 7.2 Albumin 3.6 Digoxin 0.6662 L Ambulatory Orders Albuterol 0.083% Nebulizer Brigitte [Ventolin 0.083% Nebulizer Soln -] 1 neb NEB QID 02/01/16 Carbidopa/Levodopa [Carbidopa-Levodopa 25-100 Tab] 1 each PO HS 02/01/16 Cholecalciferol (Vitamin D3) [Vitamin D3] 1,000 unit PO DAILY 02/01/16 Ferrous Sulfate [Feosol] 325 mg PO DAILY 02/01/16 Insulin Sliding Scale [Novolog Vial Sliding Scale -] 0 units SQ ACHS 02/01/16 Montelukast Na [Singulair -] 10 mg PO HS 02/01/16 [place]-3 Acid Ethyl Esters [Lovaza] 1 gm PO BID 02/01/16 Polyethylene Glycol 3350 [Miralax 119 gm Btl -] 17 gm PO DAILY 02/01/16 Potassium Chloride 60 meq PO DAILY 02/01/16 Sennosides [Senna] 2 tab PO HS 02/01/16 Topiramate [Topiramate ER] 150 mg PO BID 02/01/16 Verapamil HCl [Verapamil ER] 240 mg PO DAILY 02/01/16 Warfarin Na [Coumadin -] 14 mg PO DAILY 02/01/16 Acetaminophen [Tylenol .Regular Strength -] 650 mg PO Q6H PRN #0 tablet Bupropion HCl [Wellbutrin Xl -] 300 mg PO DAILY #30 tab 09/03/16 Citalopram Hydrobromide [Celexa -] 10 mg PO DAILY tablet 09/03/16 Digoxin [Lanoxin -] 0.125 mg PO DAILY #30 tablet 09/03/16 Insulin (Levemir) [Levemir Vial] 30 units SQ HS ml 09/03/16 Lidocaine 5% Patch [Lidoderm -] 1 patch TP DAILY patch 09/03/16 Pantoprazole Sodium [Protonix -] 40 mg PO DAILY tab 09/03/16 Pramipexole Dihydrochloride [Mirapex -] 1.5 mg PO HS tablet 09/03/16 Ranolazine [Ranexa -] 500 mg PO BID tab 09/03/16 Erythromycin 0.5% Eye Ointment [Erythromycin 0.5% Eye Ointment -] 1 applic OU DAILY 03/20/17 Ketotifen Fumarate [Eye Itch Relief] 1 drop OU BID 03/20/17 Nitroglycerin [Nitrostat] 0.4 mg SL PRN PRN 03/20/17 Polyvinyl Alcohol [Artificial Tears] 1 drop OU ASDIR 03/20/17 Torsemide [Demadex -] 60 mg PO BID 03/20/17 ASSESSMENT/PLAN: 66 yo F with pmhx of anemia, asthma, COPD on home 02, sleep apnea on CPAP, HTN, HLDm DM, CHF, CAD X2 stents, afib on Coumadin, MVR, CVA, Spinal stenosis who presents with cough X2 weeks, being admitted for acute exacerbation of COPD 1.) Acute COPD Exacerbation - Nebs Atc/PRN - Solu-MEdrol - c/w Singulair - Pulm. Consult - Keep 02>90 - On home 02 -continue 2.) DM - FS - RAISS - Diabetic diet - C/W home 02 of 3L 3.) Sleep Apnea - C/W CPAP 4.) Atypical Chest Pain - Trend Trop/Ekg - Monitor on Tele - C/W home meds - Asa 81 mg - Heart 3 5.) MVR - C/W Coumadin - Theraputic IR 6.) Dvt Ppx - Theraputic on Coumadin Place in Obs tele Visit type - Emergency Visit Emergency Visit: Yes ED Registration Date: 03/20/17 Care time: The patient presented to the Emergency Department on the above date and was hospitalized for further evaluation of their emergent condition. - New Patient This patient is new to me today: Yes Date on this admission: 03/21/17 - Critical Care Critical Care patient: No
[2017-03-21] MEDS: WARFARIN NA PO SCH ×2 (00:21→18:51)
[2017-03-21] MEDS: INSULIN SLIDING SCALE (NOVOLOG) 1 VIAL SQ SCH ×7 (00:21→21:11)
[2017-03-21] MEDS: methylPREDNISolone NA SUCC 40 MG/1 ML VIAL IVPUSH SCH ×4 (00:22→21:10)
[2017-03-21] MEDS: TOPIRAMATE 100 MG TABLET PO SCH ×3 (00:22→21:12)
[2017-03-21] MEDS ORDERED: ALBUTEROL SO4 2.5/IPRATROPIUM 0.5 INH SOL 3 ML VIAL.NEB. NEB SCH (06:00)
[2017-03-21 08:07] LABS: HEMATOCRIT 41.7 % (32.4-45.2); HEMOGLOBIN 13.4 GM/dL (10.7-15.3); MCH 28.7 pg (25.7-33.7); MCHC 32.1 g/dl (32.0-36.0); MEAN CELL VOLUME 89.3 fl (80-96); MEAN PLT VOLUME 9.7 fl (7.5-11.1); PLATELET COUNT 243 K/MM3 (134-434); RBC 4.67 M/mm3 (3.60-5.2); WHITE BLOOD COUNT 9.1 K/mm3 (4.0-10.0)
[2017-03-21 08:24] LABS: CHLORIDE 106 mmol/L (98-107); SODIUM 138 mmol/L (136-145)
[2017-03-21 08:33] LABS: ANION GAP 11 (8-16); BLOOD UREA NITROGEN 24 mg/dL (7-18); CO2 21 mmol/L (21-32); CREATININE 1.3 mg/dL (0.55-1.02); GLUCOSE,RANDOM 245 mg/dL (74-106)
[2017-03-21 08:40] LABS: INR 2.2 (0.82-1.09); PROTHROMBIN TIME (PATIENT) 24.9 SEC (9.98-11.88)
[2017-03-21 08:42] LABS: ACTIVATED PTT 48.3 SECONDS (26.9-34.4)
--- NOTE | 2017-03-21 09:15 | EKG ---
Test Reason : Blood Pressure : / mmHG Vent. Rate : 070 BPM Atrial Rate : 070 BPM P-R Int : 160 ms QRS Dur : 088 ms QT Int : 382 ms P-R-T Axes : 023 041 016 degrees QTc Int : 412 ms NORMAL SINUS RHYTHM NONSPECIFIC T WAVE ABNORMALITY ABNORMAL ECG INCOMPLETE RIGHT BUNDLE BRANCH BLOCK WHEN COMPARED WITH ECG OF 31-OCT-2016 16:49, NO SIGNIFICANT CHANGE WAS FOUND Confirmed by MD Tori, Ramirez ([id number]) on 03/21/2017 9:15:19 AM Referred By: Confirmed By:Ramirez Valle MD
--- NOTE | 2017-03-21 09:54 | PN ---
Progress Note, Physician Chief Complaint: SOB, Cough History of Present Illness: NAD, complains of cough and SOB with Exertion - Current Medication List Current Medications: Active Medications Acetaminophen (Tylenol -) 650 mg PO Q6H PRN PRN Reason: FEVER OR PAIN Albuterol Sulfate (Ventolin 0.083% Nebulizer Soln -) 1 amp NEB Q6H PRN PRN Reason: SHORT OF BREATH/WHEEZING Albuterol/Ipratropium (Duoneb -) 1 amp NEB TIDR [facility] Last Admin: 03/21/17 05:39 Dose: 1 amp Artificial Tears (Artificial Tears) 1 drop OU BID PRN PRN Reason: PRN DRY EYES Bupropion HCl (Wellbutrin Xl -) 300 mg PO DAILY [facility] Carbidopa/Levodopa (Sinemet 25/100 -) 1 each PO HS [facility] Cholecalciferol (Vitamin D3 -) 1,000 unit PO DAILY [facility] Citalopram Hydrobromide (Celexa -) 10 mg PO DAILY [facility] Digoxin (Lanoxin -) 0.125 mg PO DAILY [facility] Erythromycin (Erythromycin 0.5% Eye Ointment) 1 applic OU DAILY [facility] Ferrous Sulfate (Feosol -) 325 mg PO DAILY [facility] Insulin Aspart (Novolog Vial Sliding Scale -) 1 vial SQ Q4HPO [facility] PRN Reason: Protocol Last Admin: 03/21/17 06:29 Dose: 4 unit Insulin Detemir (Levemir Vial) 30 units SQ HS [facility] Lidocaine (Lidoderm Patch -) 1 patch TP DAILY [facility] Methylprednisolone Sodium Succinate (Solu-Medrol -) 40 mg IVPUSH Q12H [facility] Last Admin: 03/21/17 00:22 Dose: 40 mg Miscellaneous (Lidoderm Patch Removal) 1 each MC DAILY@2200 [facility] Montelukast Sodium (Singulair -) 10 mg PO HS [facility] Non-Formulary Medication (Ketotifen Fumarate [Eye Itch Relief]) 1 drop OU BID [facility] Pantoprazole Sodium (Protonix -) 40 mg PO DAILY [facility] Polyethylene Glycol (Miralax (For Daily Use) -) 17 gm PO DAILY [facility] Pramipexole Dihydrochloride (Mirapex -) 1.5 mg PO HS [facility] Ranolazine (Ranexa -) 500 mg PO BID [facility] Senna (Senna -) 2 tab PO HS [facility] Topiramate (Topamax -) 150 mg PO BID [facility] Last Admin: 03/21/17 00:22 Dose: 150 mg Verapamil HCl (Calan Sr -) 240 mg PO DAILY [facility] Warfarin Sodium 10 mg/ (Warfarin Sodium 4 mg) 14 mg PO DAILY@1800 [facility] Last Admin: 03/21/17 00:21 Dose: Not Given - Objective Vital Signs: Vital Signs Temperature 98.1 F 03/21/17 06:55 Pulse Rate 72 03/21/17 06:55 Respiratory Rate 20 03/21/17 06:55 Blood Pressure 150/78 03/21/17 06:55 O2 Sat by Pulse Oximetry (%) 98 03/21/17 01:29 Constitutional: Yes: Well Nourished, No Distress, Calm Cardiovascular: Yes: Regular Rate and Rhythm Respiratory: Yes: Regular Musculoskeletal: Yes: WNL Extremities: Yes: WNL Edema: Yes Edema: LLE: Trace, RLE: Trace Peripheral Pulses WNL: No Peripheral Pulses: Left Doralis Pedis: 1+, Right Dorsalis Pedis: 1+ Neurological: Yes: Alert, Oriented Psychiatric: Yes: Alert, Oriented Labs: CBC, BMP 03/21/17 06:30 03/21/17 06:30 INR, PTT INR 2.20 (0.82-1.09) H 03/21/17 06:30 Problem List - Problems (1) Asthma exacerbation in COPD Assessment/Plan: -Pulmonary consult -IV steroid -Neb tx -BIPAP Code(s): J44.1 - CHRONIC OBSTRUCTIVE PULMONARY DISEASE W (ACUTE) EXACERBATION; J45.901 - UNSPECIFIED ASTHMA WITH (ACUTE) EXACERBATION (2) CAD (coronary artery disease) Assessment/Plan: -cardiology consult -statin? 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
[2017-03-21] MEDS ORDERED: PT OWN MED DRAWER 7, Y5N ONE (10:57)
[2017-03-21] MEDS: RANOLAZINE E.R. 500 MG TABLET (FP) PO SCH ×2 (11:05→21:11)
[2017-03-21] MEDS: CITALOPRAM HYDROBROMIDE 10 MG TABLET (FP) PO SCH (11:05)
[2017-03-21] MEDS: DIGOXIN 0.125 MG TABLET (FP) PO SCH (11:08)
[2017-03-21] MEDS: FERROUS SO4 325 MG TABLET (FP) PO SCH (11:10)
[2017-03-21] MEDS: PANTOPRAZOLE 40 MG TABLET (FP) PO SCH (11:10)
[2017-03-21] MEDS: CHOLECALCIFEROL (VITAMIN D3) 1,000 UNIT TABLET (FP) PO SCH (11:10)
[2017-03-21] MEDS: ERYTHROMYCIN 0.5% OPHTHALMIC OINTMENT 3.5 GM TUBE OU SCH (11:16)
[2017-03-21] MEDS: VERAPAMIL HCL 240 MG E.R. TABLET (FP) PO SCH (11:16)
[2017-03-21] MEDS: LIDOCAINE 5% TOPICAL PATCH TP SCH (11:51)
[2017-03-21] MEDS: KETOTIFEN FUMARATE OU SCH ×2 (11:52→21:10)
[2017-03-21] MEDS: POLYETHYLENE GLYCOL 3350 119 GM BTL PO SCH (11:59)
[2017-03-21] MEDS: ALBUTEROL SO4 0.083% IH SOL 2.5 MG/3 ML VIAL.NEB. NEB PRN (12:05)
--- NOTE | 2017-03-21 13:34 | CON.PULM ---
Consult Consult Specialty:: PULMONARY Referred by:: GAUTAM Reason for Consultation:: SOB/COUGH - History of Present Illness Chief Complaint: SOB/COUGH History of Present Illness: The patient is a 66 year old female, with a significant past medical history of anemia, asthma, COPD on O2, sleep apnea on CPAP, HTN, hyperlipidemia, DM, CHF, CAD x2 stents, afib on coumadin, mitral valve replacement, CVA, spinal stenosis who presents to the emergency department with cough for about 2 weeks. The patient reports having intermittent fever and cough. Patient saw PMD who gave her prednisone with no relief of symptoms. The patient notes her cough is productive often bringing up white sputum She notes also having chest pain and back pain that is agitated by her cough and with any movement. She denies recent chills, headache or dizziness. She denies recent nausea, vomit, diarrhea or constipation. - History Source History Provided By: Patient, Medical Record Limitations to Obtaining History: Clinical Condition - Past Medical History VENEER LAYER: Yes: CVA, Migraine, Other (light-headedness and dizziness) Cardio/Vascular: Yes: AFIB, CAD, CHF, HTN, Hyperlipdemia, Other (S/P [facility] mitral valve replacement) Pulmonary: Yes: Asthma, COPD, Sleep Apnea (on CPAP at night) Gastrointestinal: Yes: Constipation, Diverticulosis, GI Bleed, Hemorrhoids Hepatobiliary: No: Cirrhosis Renal/: No: Renal Failure Reproductive: Yes: Postmenopausal Musculoskeletal: Yes: Chronic low back pain, Other (Spinal stenosis) Rheumatology: Yes: Lupus, Other (APLAS (BOTH LUPUS AND APLS ARE QUESTIONABLE)) Endocrine: Yes: Diabetes Mellitus - Past Surgical History Past Surgical History: Yes: CABG, Cholecystectomy, Hysterectomy, Oopherectomy - Alcohol/Substance Use Hx Alcohol Use: No History of Substance Use: reports: None - Smoking History Smoking history: Former smoker Have you smoked in the past 12 months: No Aproximately how many cigarettes per day: 0 If you are a former smoker, when did you quit?: many years - Social History Usual Living Arrangement: With Spouse ADL: Independent History of Recent Travel: No Home Medications - Allergies Allergies/Adverse Reactions: Allergies Allergy/AdvReac Type Severity Reaction Status Date / Time lactose Allergy Mild Verified 03/20/17 18:08 Beta-Blockers Allergy Verified 03/20/17 18:08 (Beta-Adrenergic Bloc Iodinated Contrast- Oral and Allergy Verified 03/20/17 18:08 IV Dye [IV Dye, Iodine Containing Contrast ] shellfish derived Allergy Verified 03/20/17 18:08 - Home Medications Home Medications: Ambulatory Orders Albuterol 0.083% Nebulizer Brigitte [Ventolin 0.083% Nebulizer Soln -] 1 neb NEB QID 02/01/16 Carbidopa/Levodopa [Carbidopa-Levodopa 25-100 Tab] 1 each PO HS 02/01/16 Cholecalciferol (Vitamin D3) [Vitamin D3] 1,000 unit PO DAILY 02/01/16 Ferrous Sulfate [Feosol] 325 mg PO DAILY 02/01/16 Insulin Sliding Scale [Novolog Vial Sliding Scale -] 0 units SQ ACHS 02/01/16 Montelukast Na [Singulair -] 10 mg PO HS 02/01/16 [place]-3 Acid Ethyl Esters [Lovaza] 1 gm PO BID 02/01/16 Polyethylene Glycol 3350 [Miralax 119 gm Btl -] 17 gm PO DAILY 02/01/16 Potassium Chloride 60 meq PO DAILY 02/01/16 Sennosides [Senna] 2 tab PO HS 02/01/16 Topiramate [Topiramate ER] 150 mg PO BID 02/01/16 Verapamil HCl [Verapamil ER] 240 mg PO DAILY 02/01/16 Warfarin Na [Coumadin -] 14 mg PO DAILY 02/01/16 Acetaminophen [Tylenol .Regular Strength -] 650 mg PO Q6H PRN #0 tablet Bupropion HCl [Wellbutrin Xl -] 300 mg PO DAILY #30 tab 09/03/16 Citalopram Hydrobromide [Celexa -] 10 mg PO DAILY tablet 09/03/16 Digoxin [Lanoxin -] 0.125 mg PO DAILY #30 tablet 09/03/16 Insulin (Levemir) [Levemir Vial] 30 units SQ HS ml 09/03/16 Lidocaine 5% Patch [Lidoderm -] 1 patch TP DAILY patch 09/03/16 Pantoprazole Sodium [Protonix -] 40 mg PO DAILY tab 09/03/16 Pramipexole Dihydrochloride [Mirapex -] 1.5 mg PO HS tablet 09/03/16 Ranolazine [Ranexa -] 500 mg PO BID tab 09/03/16 Erythromycin 0.5% Eye Ointment [Erythromycin 0.5% Eye Ointment -] 1 applic OU DAILY 03/20/17 Ketotifen Fumarate [Eye Itch Relief] 1 drop OU BID 03/20/17 Nitroglycerin [Nitrostat] 0.4 mg SL PRN PRN 03/20/17 Polyvinyl Alcohol [Artificial Tears] 1 drop OU ASDIR 03/20/17 Torsemide [Demadex -] 60 mg PO BID 03/20/17 Family Disease History - Family Disease History Family Disease History: Diabetes: Grandparent, Mother, Heart Disease: Father, Other: Sister (Lupus) Review of Systems - Review of Systems Constitutional: denies: Fever Eyes: denies: Blurred Vision HENT: denies: Difficult Swallowing Neck: denies: Decreased ROM Cardiovascular: reports: Chest Pain, Shortness of Breath Respiratory: reports: Cough, Exercise Intolerance, SOB on Exertion, Wheezing. denies: Hemoptysis Gastrointestinal: denies: Abdominal Pain Physical Exam Vital Sings: Vital Signs Temperature 98.1 F 03/21/17 06:55 Pulse Rate 80 03/21/17 11:08 Respiratory Rate 20 03/21/17 06:55 Blood Pressure 150/78 03/21/17 06:55 O2 Sat by Pulse Oximetry (%) 98 03/21/17 01:29 Constitutional: Yes: Anxious Eyes: Yes: EOM Intact HENT: Yes: Normocephalic Neck: Yes: Trachea Midline Cardiovascular: Yes: Regular Rate and Rhythm, S1, S2 Respiratory: Yes: Diminished Gastrointestinal: Yes: Normal Bowel Sounds, Abdomen, Obese Edema: No Integumentary: Yes: WNL Neurological: Yes: Alert Psychiatric: Yes: Alert Labs: CBC, BMP 03/21/17 06:30 03/21/17 06:30 rest reviewed Imaging - Results Chest X-ray: Report Reviewed, Image Reviewed EKG: Report Reviewed, Image Reviewed Problem List - Problems (1) COPD (chronic obstructive pulmonary disease) Code(s): J44.9 - CHRONIC OBSTRUCTIVE PULMONARY DISEASE, UNSPECIFIED (2) Afib Code(s): I48.91 - UNSPECIFIED ATRIAL FIBRILLATION Qualifiers: Atrial fibrillation type: paroxysmal Qualified Code(s): I48.0 - Paroxysmal atrial fibrillation (3) Anticoagulated Code(s): Z79.01 - SHELTER (CURRENT) USE OF ANTICOAGULANTS (4) Asthma exacerbation in COPD Code(s): J44.1 - CHRONIC OBSTRUCTIVE PULMONARY DISEASE W (ACUTE) EXACERBATION; J45.901 - UNSPECIFIED ASTHMA WITH (ACUTE) EXACERBATION (5) CAD (coronary artery disease) Code(s): I25.10 - ATHSCL HEART DISEASE OF [place] CORONARY ARTERY W/O ANG PCTRS (6) CHF (congestive heart failure) Code(s): I50.9 - HEART FAILURE, UNSPECIFIED Assessment/Plan O2/NIPPV HS/PRN/BRONCHODILATORS/IV STEROIDS INFLU SWAB- CONSIDER TRIAL OF ANTIBIOTICS WILL FOLLOW Maki WAYNE MD
--- NOTE | 2017-03-21 14:03 | CON.CARD ---
Cardiology Consult (text) - Consultation Consultation Note: CC: Cough hpi: 66 year old lady with past medical history of COPD on home , FIGUEROA (on cpap at home), CAD (s/p single vessel CABG 2006 with RUSSELL to OM and ROSALINA x2 to LAD 12/2011; last cath 06/2014 showed patent RUSSELL, patent LAD stents, no sig residual dz except for 80-90% OM that is bypassed), [facility] mvr ([facility], 2006, on coumadin), anemia, TIA, diastolic CHF, DM, HTN, pafib, antiphospholipid syndrome (on coumadin), fibromyalgia, migraines, chronic atypical cp, obesity, LBP here with cough. States that since November she has been having progressive sob, cough with associated pleuritic cp (ttp, exacerbated by cough), intermittent f/c/s, intermittent diarrhea and poor po intake. Decreased her torsemide dose from 60 mg to 40 mg/day because of her symptoms. --> intermittent worsening of LE edema over this time period but overall stable. Over the past two days she experienced worsening of her symptoms with worsened fever and acute sensation of sob "couldn't breathe in or out" on ambulation to bathroom yesterday. Also with mild blood in stool, ongoing diarrhea. No recent n/v, rashes, headache, congestion, visual disturbances. . No angina, palps, dizzy, loc, pnd, orthopnea, le edema. Sees Dr. Loredo for cardio. pmh: per hpi psh: cabg, cholecystectomy, mvr, hysterectomy social: ex tob fam hx: no premature cad or scd ros: per hpi; meds: Ambulatory Orders Albuterol 0.083% Nebulizer Brigitte [Ventolin 0.083% Nebulizer Soln -] 1 neb NEB QID 02/01/16 Carbidopa/Levodopa [Carbidopa-Levodopa 25-100 Tab] 1 each PO HS 02/01/16 Cholecalciferol (Vitamin D3) [Vitamin D3] 1,000 unit PO DAILY 02/01/16 Ferrous Sulfate [Feosol] 325 mg PO DAILY 02/01/16 Insulin Sliding Scale [Novolog Vial Sliding Scale -] 0 units SQ ACHS 02/01/16 Montelukast Na [Singulair -] 10 mg PO HS 02/01/16 [place]-3 Acid Ethyl Esters [Lovaza] 1 gm PO BID 02/01/16 Polyethylene Glycol 3350 [Miralax 119 gm Btl -] 17 gm PO DAILY 02/01/16 Potassium Chloride 60 meq PO DAILY 02/01/16 Sennosides [Senna] 2 tab PO HS 02/01/16 Topiramate [Topiramate ER] 150 mg PO BID 02/01/16 Verapamil HCl [Verapamil ER] 240 mg PO DAILY 02/01/16 Warfarin Na [Coumadin -] 14 mg PO DAILY 02/01/16 Acetaminophen [Tylenol .Regular Strength -] 650 mg PO Q6H PRN #0 tablet Bupropion HCl [Wellbutrin Xl -] 300 mg PO DAILY #30 tab 09/03/16 Citalopram Hydrobromide [Celexa -] 10 mg PO DAILY tablet 09/03/16 Digoxin [Lanoxin -] 0.125 mg PO DAILY #30 tablet 09/03/16 Insulin (Levemir) [Levemir Vial] 30 units SQ HS ml 09/03/16 Lidocaine 5% Patch [Lidoderm -] 1 patch TP DAILY patch 09/03/16 Pantoprazole Sodium [Protonix -] 40 mg PO DAILY tab 09/03/16 Pramipexole Dihydrochloride [Mirapex -] 1.5 mg PO HS tablet 09/03/16 Ranolazine [Ranexa -] 500 mg PO BID tab 09/03/16 Erythromycin 0.5% Eye Ointment [Erythromycin 0.5% Eye Ointment -] 1 applic OU DAILY 03/20/17 Ketotifen Fumarate [Eye Itch Relief] 1 drop OU BID 03/20/17 Nitroglycerin [Nitrostat] 0.4 mg SL PRN PRN 03/20/17 Polyvinyl Alcohol [Artificial Tears] 1 drop OU ASDIR 03/20/17 Torsemide [Demadex -] 60 mg PO BID 03/20/17 Current Medications Acetaminophen (Tylenol -) 650 mg PO Q6H PRN PRN Reason: FEVER OR PAIN Albuterol Sulfate (Ventolin 0.083% Nebulizer Soln -) 1 amp NEB Q1H PRN PRN Reason: SHORT OF BREATH/WHEEZING Albuterol/Ipratropium (Duoneb -) 1 amp NEB QIDR CHRIS Artificial Tears (Artificial Tears) 1 drop OU BID PRN PRN Reason: PRN DRY EYES Bupropion HCl (Wellbutrin Xl -) 300 mg PO DAILY [facility] Last Admin: 03/21/17 11:06 Dose: 300 mg Carbidopa/Levodopa (Sinemet 25/100 -) 1 each PO HS [facility] Cholecalciferol (Vitamin D3 -) 1,000 unit PO DAILY [facility] Last Admin: 03/21/17 11:10 Dose: 1,000 unit Citalopram Hydrobromide (Celexa -) 10 mg PO DAILY [facility] Last Admin: 03/21/17 11:05 Dose: 10 mg Digoxin (Lanoxin -) 0.125 mg PO DAILY [facility] Last Admin: 03/21/17 11:08 Dose: 0.125 mg Erythromycin (Erythromycin 0.5% Eye Ointment) 1 applic OU DAILY [facility] Last Admin: 03/21/17 11:16 Dose: 1 applic Ferrous Sulfate (Feosol -) 325 mg PO DAILY [facility] Last Admin: 03/21/17 11:10 Dose: 325 mg Insulin Aspart (Novolog Vial Sliding Scale -) 1 vial SQ Q4HPO [facility] PRN Reason: Protocol Last Admin: 03/21/17 12:15 Dose: Not Given Insulin Detemir (Levemir Vial) 30 units SQ [facility] Lidocaine (Lidoderm Patch -) 1 patch TP DAILY [facility] Last Admin: 03/21/17 11:51 Dose: 1 patch Methylprednisolone Sodium Succinate (Solu-Medrol -) 40 mg IVPUSH Q6H-IV [facility] Miscellaneous (Lidoderm Patch Removal) 1 each MC DAILY@2200 [facility] Montelukast Sodium (Singulair -) 10 mg PO [facility] Non-Formulary Medication (Ketotifen Fumarate [Eye Itch Relief]) 1 drop OU BID [facility] Last Admin: 03/21/17 11:52 Dose: Not Given Pantoprazole Sodium (Protonix -) 40 mg PO DAILY [facility] Last Admin: 03/21/17 11:10 Dose: 40 mg Polyethylene Glycol (Miralax (For Daily Use) -) 17 gm PO DAILY [facility] Last Admin: 03/21/17 11:59 Dose: 17 grams Pramipexole Dihydrochloride (Mirapex -) 1.5 mg PO [facility] Ranolazine (Ranexa -) 500 mg PO BID [facility] Last Admin: 03/21/17 11:05 Dose: 500 mg Senna (Senna -) 2 tab PO [facility] Topiramate (Topamax -) 150 mg PO BID [facility] Last Admin: 03/21/17 11:15 Dose: 150 mg Verapamil HCl (Calan Sr -) 240 mg PO DAILY [facility] Last Admin: 03/21/17 11:16 Dose: 240 mg Warfarin Sodium 10 mg/ (Warfarin Sodium 4 mg) 14 mg PO DAILY@1800 [facility] Last Admin: 03/21/17 00:21 Dose: Not Given Vital Signs - 24 hr 03/20/17 03/20/17 03/20/17 18:10 20:16 20:57 Temperature 98.7 F 98.1 F Pulse Rate 70 78 68 Respiratory 20 20 Rate Blood Pressure 153/58 146/62 O2 Sat by Pulse 99 96 96 Oximetry (%) 03/20/17 03/21/17 03/21/17 23:05 01:29 02:05 Temperature 98.4 F 98.4 F Pulse Rate 66 70 74 Respiratory 22 20 Rate Blood Pressure 142/68 135/65 O2 Sat by Pulse 96 98 Oximetry (%) 03/21/17 03/21/17 06:55 11:08 Temperature 98.1 F Pulse Rate 72 80 Respiratory 20 Rate Blood Pressure 150/78 O2 Sat by Pulse Oximetry (%) Intake & Output 03/19/17 03/20/17 03/21/17 03/22/17 07:59 07:59 07:59 07:59 Intake Total 240 Balance 240 Weight 212 lb 12.8 oz nad, anxious no jvd, neck supple + diaphoresis rrr s1s2 no mrg ttp of sternum. PMI ND diminshed air mov't, nl eff abd nt pos bs, nd pos dp pt no carotid bruits no le e/c/c aaox3 no jaundice diaphoresis CBC, BMP 03/21/17 06:30 03/21/17 06:30 Laboratory Tests 03/20/17 03/20/17 03/21/17 19:00 19:00 06:30 INR 3.09 H 2.20 H Digoxin 0.6662 L Laboratory Tests 12/14/15 03/21/17 03/21/17 11:35 06:30 12:40 Troponin I < 0.02 B-Natriuretic Peptide 81.53 210.85 H Laboratory Tests 03/20/17 19:00 Digoxin 0.6662 L EKG: SR. RSR'/incomplete RBBB. non-specific t wave abnormalities, similar to priors. echo 07/2015: tds; nl lv/rv, mild lae, nl [facility] mvr mibi 12/2013: no ischemia cxr: no acute pulmonary disease a/p: 66 with h/o COPD on home , FIGUEROA (on cpap at home), CAD (s/p single vessel CABG 2006 with RUSSELL to OM and ROSALINA x2 to LAD 12/2011; last cath 06/2014 showed patent RUSSELL, patent LAD stents, no sig residual dz except for 80-90% OM that is bypassed), [facility] mvr ([facility], 2006, on coumadin), anemia, TIA, diastolic CHF, DM, HTN, pafib, antiphospholipid syndrome (on coumadin), fibromyalgia, migraines, chronic atypical cp, obesity, LBP here with knee pain/ hemarthrosis. cough/sob/subjective fevers - likely 2/2 copd exacerbation. mgm't per pmd/pulm - no obvious signs of volume overload. con't home diuretic regimen. [facility] MVR: -also with antiphospholipid syndrome --> high risk for thrombosis of valve. on AC w/ coumadin, target INR 2.5 to 3.5. - echo 07/[address] [facility] mvr function - endorsing intermittent fevers since November. --> bcx to r/o endocarditis as source of subjective fever (afebrile here). repeat echo. cad, s/p cabg, pci: - h/o chronic atypical cp. -cp msk, reproducible to palpation. normal lvef on recent echo, no concern for acs. -no bb due to copd, on verapamil instead -not on statin due to prior intolerance -cont ranexa for possible small vessel dz symptoms -on ac, no asa diastolic chf - maintained on torsemide at home (40 mg daily). although was supposed to be on 60 mg daily, CXR without significant congestion. No sig volume overload on exam. patient with poor po intake and reports diarrhea. con't current torsemide dose for now and monitor for need to adjust. daily bmp, daily weights , i/o's. . HTN: - reasonable control on current meds, con't to monitor pafib with h/o tia: -rare episodes in past -remains in sr here based on initial ekg and exam -continue verapamil and dig. dig level okay/low here. -cont ac with coumadin as mentioned above, copd on home O2 - possible acute exacerbation here, mgm't per pmd/pulm.
[2017-03-21] MEDS: ALBUTEROL SO4 2.5/IPRATROPIUM 0.5 INH SOL 3 ML VIAL.NEB. NEB SCH ×2 (18:22→23:20)
[2017-03-21] MEDS ORDERED: WARFARIN NA 2 MG TABLET (UD) ONE (18:50)
[2017-03-21] MEDS ORDERED: WARFARIN NA 10 MG TABLET (FP) ONE (18:50)
[2017-03-21] MEDS: PRAMIPEXOLE DIHYDROCHLORIDE 1.5 MG TABLET PO SCH (21:11)
[2017-03-21] MEDS: SENNOSIDES 8.6MG TABLET (FP) PO SCH (21:12)
[2017-03-21] MEDS: MONTELUKAST NA 10 MG TABLET PO SCH (21:12)
[2017-03-21] MEDS: CARBIDOPA/LEVODOPA 25/100 TABLET (FP) PO SCH (21:12)
[2017-03-21] MEDS: guaiFENesin/D-M SUGAR-FREE/ACLHOL-FREE 118 ML BOTTLE PO PRN (21:13)
[2017-03-21] MEDS ORDERED: INSULIN DETEMIR 100 UNITS/ML MDV SQ SCH (22:00)
[2017-03-21] MEDS: LIDOCAINE PATCH REMOVAL MC SCH (23:04)
[2017-03-22] MEDS: methylPREDNISolone NA SUCC 40 MG/1 ML VIAL IVPUSH SCH ×4 (02:16→20:21)
[2017-03-22] MEDS: INSULIN SLIDING SCALE (NOVOLOG) 1 VIAL SQ SCH ×5 (02:17→16:46)
[2017-03-22] MEDS: ALBUTEROL SO4 2.5/IPRATROPIUM 0.5 INH SOL 3 ML VIAL.NEB. NEB SCH ×4 (06:32→23:12)
[2017-03-22 08:05] LABS: BASO % 0.1 % (0-2.0); HEMATOCRIT 38.9 % (32.4-45.2); HEMOGLOBIN 12.1 GM/dL (10.7-15.3); LYMPH % 7.5 % (8-40); MCH 28.2 pg (25.7-33.7); MCHC 31.2 g/dl (32.0-36.0); MEAN CELL VOLUME 90.3 fl (80-96); MEAN PLT VOLUME 10.1 fl (7.5-11.1); MONO % 3.3 % (3.8-10.2); NEUT % 89.1 % (42.8-82.8); PLATELET COUNT 243 K/MM3 (134-434); RBC 4.31 M/mm3 (3.60-5.2); RDW 17.3 % (11.6-15.6); WHITE BLOOD COUNT 15.2 K/mm3 (4.0-10.0)
[2017-03-22 08:17] LABS: ALBUMIN 3.6 g/dl (3.4-5.0); ALK PHOS 71 U/L (45-117); ANION GAP 8 (8-16); BILIRUBIN,TOTAL 0.3 mg/dL (0.2-1.0); BLOOD UREA NITROGEN 30 mg/dL (7-18); CALCIUM 9.3 mg/dL (8.5-10.1); CHLORIDE 107 mmol/L (98-107); CO2 22 mmol/L (21-32); CREATININE 1.3 mg/dL (0.55-1.02); GLUCOSE,RANDOM 264 mg/dL (74-106); POTASSIUM 4.5 mmol/L (3.5-5.1); SGOT/AST 7 U/L (15-37); SGPT/ALT 32 U/L (12-78); SODIUM 137 mmol/L (136-145)
--- NOTE | 2017-03-22 09:27 | PN ---
Progress Note (short form) - Note Progress Note: ID Consult dictated Acute exacerbation COPD Tracheobronchitis Leukocytosis possibly steroid- induced ?PCN allergy Await c/s Empiric levaquin Bronchodilators/ steroids/O2
--- NOTE | 2017-03-22 10:10 | CONS ---
DATE OF CONSULTATION: DATE OF DICTATION: 03/22/2017 INFECTIOUS DISEASE CONSULTATION HISTORY OF PRESENT ILLNESS: The patient is a 66-year-old female with multiple medical problems, evaluated for tracheobronchitis. The patient has a history of COPD and is on home oxygen. She reports not feeling well for the past several months. She reports that after receiving the flu vaccine in November, she has had recurrent episodes of bronchitis. She has been treated as an outpatient with antibiotics, without significant improvement. Over the past 2 weeks she has had worsening shortness of breath, cough productive of whitish sputum, and right-sided pleuritic chest pain. According to the notes, she had been seen by her primary care doctor, who had given her a course of prednisone, without significant improvement. In addition, she reports recently taking a cephalosporin antibiotic, without improvement. THE PATIENT REPORTS HAVING A HISTORY OF PENICILLIN ALLERGY. She states that she developed blisters after receiving PENICILLIN, but she has tolerated cephalosporins in the past. The patient did receive the influenza vaccine. She denies any ill contacts. No recent hospitalizations. She is a former smoker, stopping many years ago. PAST MEDICAL HISTORY: Positive for oxygen-dependent COPD, obstructive sleep apnea, asthma, stroke, hypertension, hyperlipidemia, diabetes mellitus, congestive heart failure, coronary artery disease, spinal stenosis, history of antiphospholipid antibody (on anticoagulation). PAST SURGICAL HISTORY: Status post mitral valve replacement and coronary artery bypass in 2006, cholecystectomy, and hysterectomy. ALLERGIES: BETA-BLOCKERS, IODINE, and PENICILLIN (per patient). MEDICATIONS: Include Nitrostat, Tylenol, insulin Levemir, Lanoxin, Celexa, Wellbutrin, topiramate, Ranexa, Protonix, Lovaza, Coumadin, verapamil, Demadex. SOCIAL HISTORY: Resides at home with family members. Former smoker, stopping many years ago. Denies history of alcohol abuse. REVIEW OF SYSTEMS: Neurologic: No loss of consciousness or seizure activity. Cardiac: Negative for chest pain or palpitations. Respiratory: As per HPI. Gastrointestinal: History of gastrointestinal bleeding. No vomiting or diarrhea. Genitourinary: Negative for urinary tract infection. LABORATORY DATA: White count 15.2, neutrophils 89, lymphocytes 7, monocytes 3; hematocrit 38.9; platelet count 243. BUN 30, creatinine 1.3, glucose 264. RADIOLOGY: Chest x-ray negative for acute infiltrate. PHYSICAL EXAMINATION: General: She is slightly short of breath at rest in bed, on nasal cannula oxygen. Cough noted. Vital Signs: Temperature 97.6, blood pressure 156/76, pulse 73 and regular, respirations 22 per minute. HEENT: Sclerae anicteric. Oropharynx negative. Neck: Supple. Cardiac: Heart sounds S1, S2. A 2/6 andino-systolic murmur. Lungs: Clear bilaterally. No rhonchi, rales or wheezing. Abdomen: Obese, soft. No tenderness elicited. No mass, rebound or rigidity. Extremities: One plus edema. IMPRESSION: 1. Acute exacerbation of chronic obstructive pulmonary disease. 2. Tracheobronchitis. 3. Leukocytosis, likely steroid induced. 4. Penicillin allergy, per patient. PLAN: Obtain sputum culture. Empiric antibiotic coverage for tracheobronchitis in this patient who gives a history of PENICILLIN allergy, with Levaquin 500 mg IV piggyback daily. Continue intravenous corticosteroids and inhaled bronchodilators. Pulmonary evaluation. Will follow. Thank you for the kind referral. MIRIAN REYES M.D. [id number]
[2017-03-22] MEDS: ALBUTEROL SO4 0.083% IH SOL 2.5 MG/3 ML VIAL.NEB. NEB PRN (10:14)
--- NOTE | 2017-03-22 11:11 | PN ---
Progress Note, Physician Chief Complaint: SOB, Cough History of Present Illness: NAD, complains of cough and SOB with Exertion seen by pulmonary and cardiology has antiphospholipid syndrome and mechanical mitral valve-->high risk of thrombosis, on Warfarin, INR foal is 2.5-3.5 D-Dimer negative CXR and BNP negative- no obvious volume overload - Current Medication List Current Medications: Active Medications Acetaminophen (Tylenol -) 650 mg PO Q6H PRN PRN Reason: FEVER OR PAIN Albuterol Sulfate (Ventolin 0.083% Nebulizer Soln -) 1 amp NEB Q1H PRN PRN Reason: SHORT OF BREATH/WHEEZING Last Admin: 03/22/17 10:14 Dose: 1 amp Albuterol/Ipratropium (Duoneb -) 1 amp NEB QIDR [facility] Last Admin: 03/22/17 06:32 Dose: 1 amp Artificial Tears (Artificial Tears) 1 drop OU BID PRN PRN Reason: PRN DRY EYES Bupropion HCl (Wellbutrin Xl -) 300 mg PO DAILY [facility] Last Admin: 03/21/17 11:06 Dose: 300 mg Carbidopa/Levodopa (Sinemet 25/100 -) 1 each PO HS [facility] Last Admin: 03/21/17 21:12 Dose: 1 each Cholecalciferol (Vitamin D3 -) 1,000 unit PO DAILY [facility] Last Admin: 03/21/17 11:10 Dose: 1,000 unit Citalopram Hydrobromide (Celexa -) 10 mg PO DAILY [facility] Last Admin: 03/21/17 11:05 Dose: 10 mg Digoxin (Lanoxin -) 0.125 mg PO DAILY [facility] Last Admin: 03/21/17 11:08 Dose: 0.125 mg Erythromycin (Erythromycin 0.5% Eye Ointment) 1 applic OU DAILY [facility] Last Admin: 03/21/17 11:16 Dose: 1 applic Ferrous Sulfate (Feosol -) 325 mg PO DAILY [facility] Last Admin: 03/21/17 11:10 Dose: 325 mg Guaifenesin (Diabetic Tussin Dm -) 10 ml PO Q6H PRN PRN Reason: COUGH Last Admin: 03/21/17 21:13 Dose: 10 ml Levofloxacin (Levaquin 500 Mg Premixed Ivpb -) 500 mg in 100 mls @ 100 mls/hr IVPB DAILY [facility] Insulin Aspart (Novolog Vial Sliding Scale -) 1 vial SQ Q4HPO [facility] PRN Reason: Protocol Last Admin: 03/22/17 06:22 Dose: 6 unit Insulin Detemir (Levemir Vial) 30 units SQ [facility] Last Admin: 03/21/17 21:10 Dose: 30 unit Lidocaine (Lidoderm Patch -) 1 patch TP DAILY [facility] Last Admin: 03/21/17 11:51 Dose: 1 patch Methylprednisolone Sodium Succinate (Solu-Medrol -) 40 mg IVPUSH Q6H-IV [facility] Last Admin: 03/22/17 02:16 Dose: 40 mg Miscellaneous (Lidoderm Patch Removal) 1 each MC DAILY@2200 [facility] Last Admin: 03/21/17 23:04 Dose: 1 each Montelukast Sodium (Singulair -) 10 mg PO [facility] Last Admin: 03/21/17 21:12 Dose: 10 mg Non-Formulary Medication (Ketotifen Fumarate [Eye Itch Relief]) 1 drop OU BID [facility] Last Admin: 03/21/17 21:10 Dose: 1 drop Pantoprazole Sodium (Protonix -) 40 mg PO DAILY [facility] Last Admin: 03/21/17 11:10 Dose: 40 mg Polyethylene Glycol (Miralax (For Daily Use) -) 17 gm PO DAILY [facility] Last Admin: 03/21/17 11:59 Dose: 17 grams Pramipexole Dihydrochloride (Mirapex -) 1.5 mg PO [facility] Last Admin: 03/21/17 21:11 Dose: 1.5 mg Ranolazine (Ranexa -) 500 mg PO BID [facility] Last Admin: 03/21/17 21:11 Dose: 500 mg Senna (Senna -) 2 tab PO [facility] Last Admin: 03/21/17 21:12 Dose: Not Given Topiramate (Topamax -) 150 mg PO BID [facility] Last Admin: 03/21/17 21:12 Dose: 150 mg Torsemide (Demadex -) 40 mg PO DAILY [facility] Verapamil HCl (Calan Sr -) 240 mg PO DAILY [facility] Last Admin: 03/21/17 11:16 Dose: 240 mg Warfarin Sodium 10 mg/ (Warfarin Sodium 4 mg) 14 mg PO DAILY@1800 [facility] Last Admin: 03/21/17 18:51 Dose: 14 mg - Objective Vital Signs: Vital Signs Temperature 97.6 F 03/22/17 05:00 Pulse Rate 69 03/22/17 10:05 Respiratory Rate 22 03/22/17 05:00 Blood Pressure 156/76 03/22/17 05:00 O2 Sat by Pulse Oximetry (%) 97 03/22/17 10:05 Constitutional: Yes: Well Nourished, No Distress, Anxious Cardiovascular: Yes: Regular Rate and Rhythm, Other (cardiac clicking) Respiratory: Yes: Regular Gastrointestinal: Yes: WNL Musculoskeletal: Yes: WNL Extremities: Yes: WNL Edema: No Peripheral Pulses WNL: Yes Neurological: Yes: Alert, Oriented Psychiatric: Yes: Alert, Oriented Labs: CBC, BMP 03/22/17 06:00 03/22/17 06:00 INR, PTT INR 2.20 (0.82-1.09) H 03/21/17 06:30 Problem List - Problems (1) Asthma exacerbation in COPD Assessment/Plan: -Pulmonary consult -IV steroid -Neb tx -BIPAP -seen by ID- ordered IV Levaquin Code(s): J44.1 - CHRONIC OBSTRUCTIVE PULMONARY DISEASE W (ACUTE) EXACERBATION; J45.901 - UNSPECIFIED ASTHMA WITH (ACUTE) EXACERBATION (2) CAD (coronary artery disease) Assessment/Plan: -cardiology consult -not on statin due to intolerance -already on AC-warfarin, no Aspirin -repeat echo results pending- echo 07/2015 with normal [facility] mvr function -on CCB Code(s): I25.10 - ATHSCL HEART DISEASE OF [place] CORONARY ARTERY W/O ANG PCTRS (3) CHF (congestive heart failure) Assessment/Plan: -BNP negatve for any fluid overload, -CXR negative -on Torsemide 40 mg po daily Code(s): I50.9 - HEART FAILURE, UNSPECIFIED (4) H/O prosthetic mitral valve Assessment/Plan: -On warfarin, takes 14 mg once a week and 12 mg all other days of the week at home -INR goal 2.5-3.5 (5) IDDM (insulin dependent diabetes mellitus) Assessment/Plan: Levemir and insulin sliding scale -diabetic diet -RD consult -last A1c 6.8 in 12/2016 Code(s): E11.9 - TYPE 2 DIABETES MELLITUS WITHOUT COMPLICATIONS; 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
--- NOTE | 2017-03-22 11:34 | PN ---
Progress Note, Physician Chief Complaint: sob/cough History of Present Illness: ongoing cough, sob, and pleuritic cp is not improved. no palpitations - Current Medication List Current Medications: Active Medications Acetaminophen (Tylenol -) 650 mg PO Q6H PRN PRN Reason: FEVER OR PAIN Albuterol Sulfate (Ventolin 0.083% Nebulizer Soln -) 1 amp NEB Q1H PRN PRN Reason: SHORT OF BREATH/WHEEZING Last Admin: 03/22/17 10:14 Dose: 1 amp Albuterol/Ipratropium (Duoneb -) 1 amp NEB QIDR [facility] Last Admin: 03/22/17 06:32 Dose: 1 amp Artificial Tears (Artificial Tears) 1 drop OU BID PRN PRN Reason: PRN DRY EYES Budesonide (Pulmicort 0.25 Mg Nebulizer -) 1 amp NEB BID [facility] Bupropion HCl (Wellbutrin Xl -) 300 mg PO DAILY [facility] Last Admin: 03/21/17 11:06 Dose: 300 mg Carbidopa/Levodopa (Sinemet 25/100 -) 1 each PO HS [facility] Last Admin: 03/21/17 21:12 Dose: 1 each Cholecalciferol (Vitamin D3 -) 1,000 unit PO DAILY [facility] Last Admin: 03/21/17 11:10 Dose: 1,000 unit Citalopram Hydrobromide (Celexa -) 10 mg PO DAILY [facility] Last Admin: 03/21/17 11:05 Dose: 10 mg Digoxin (Lanoxin -) 0.125 mg PO DAILY [facility] Last Admin: 03/21/17 11:08 Dose: 0.125 mg Erythromycin (Erythromycin 0.5% Eye Ointment) 1 applic OU DAILY [facility] Last Admin: 03/21/17 11:16 Dose: 1 applic Ferrous Sulfate (Feosol -) 325 mg PO DAILY [facility] Last Admin: 03/21/17 11:10 Dose: 325 mg Guaifenesin (Diabetic Tussin Dm -) 10 ml PO Q6H PRN PRN Reason: COUGH Last Admin: 03/21/17 21:13 Dose: 10 ml Levofloxacin (Levaquin 500 Mg Premixed Ivpb -) 500 mg in 100 mls @ 100 mls/hr IVPB DAILY [facility] Insulin Aspart (Novolog Vial Sliding Scale -) 1 vial SQ Q4HPO [facility] PRN Reason: Protocol Last Admin: 03/22/17 06:22 Dose: 6 unit Insulin Detemir (Levemir Vial) 30 units SQ HS [facility] Last Admin: 03/21/17 21:10 Dose: 30 unit Lidocaine (Lidoderm Patch -) 1 patch TP DAILY [facility] Last Admin: 03/21/17 11:51 Dose: 1 patch Methylprednisolone Sodium Succinate (Solu-Medrol -) 40 mg IVPUSH Q6H-IV [facility] Last Admin: 03/22/17 02:16 Dose: 40 mg Miscellaneous (Lidoderm Patch Removal) 1 each MC DAILY@2200 [facility] Last Admin: 03/21/17 23:04 Dose: 1 each Montelukast Sodium (Singulair -) 10 mg PO [facility] Last Admin: 03/21/17 21:12 Dose: 10 mg Non-Formulary Medication (Ketotifen Fumarate [Eye Itch Relief]) 1 drop OU BID [facility] Last Admin: 03/21/17 21:10 Dose: 1 drop Pantoprazole Sodium (Protonix -) 40 mg PO DAILY [facility] Last Admin: 03/21/17 11:10 Dose: 40 mg Polyethylene Glycol (Miralax (For Daily Use) -) 17 gm PO DAILY [facility] Last Admin: 03/21/17 11:59 Dose: 17 grams Pramipexole Dihydrochloride (Mirapex -) 1.5 mg PO [facility] Last Admin: 03/21/17 21:11 Dose: 1.5 mg Ranolazine (Ranexa -) 500 mg PO BID [facility] Last Admin: 03/21/17 21:11 Dose: 500 mg Senna (Senna -) 2 tab PO [facility] Last Admin: 03/21/17 21:12 Dose: Not Given Topiramate (Topamax -) 150 mg PO BID [facility] Last Admin: 03/21/17 21:12 Dose: 150 mg Torsemide (Demadex -) 40 mg PO DAILY [facility] Verapamil HCl (Calan Sr -) 240 mg PO DAILY [facility] Last Admin: 03/21/17 11:16 Dose: 240 mg Warfarin Sodium 10 mg/ (Warfarin Sodium 4 mg) 14 mg PO DAILY@1800 [facility] Last Admin: 03/21/17 18:51 Dose: 14 mg - Objective Vital Signs: Vital Signs Temperature 97.6 F 03/22/17 05:00 Pulse Rate 69 03/22/17 10:05 Respiratory Rate 22 03/22/17 05:00 Blood Pressure 156/76 03/22/17 05:00 O2 Sat by Pulse Oximetry (%) 97 03/22/17 10:05 Constitutional: Yes: No Distress, Calm, Obese Cardiovascular: Yes: Regular Rate and Rhythm ([facility] S2 click), S1, S2. No: Gallop, Murmur Respiratory: Yes: Regular, CTA Bilaterally. No: Accessory Muscle Use, Rales, Rhonchi, Wheezes Extremities: No: Cold Edema: No Neurological: Yes: Alert, Oriented Psychiatric: No: Agitated Labs: CBC, BMP 03/22/17 06:00 03/22/17 06:00 INR, PTT INR 2.20 (0.82-1.09) H 03/21/17 06:30 Assessment/Plan EKG: SR. RSR'/incomplete RBBB. non-specific t wave abnormalities, similar to priors. (QTc 412) cxr: no acute pulmonary disease Echo 04/05: nl LV/EF; nl RV; well-seated [facility] MVR. mild Echo 07/2015: tds; nl lv/rv, mild lae, nl [facility] mvr mibi 12/2013: no ischemia a/p: 66 with h/o COPD on home , FIGUEROA (on cpap at home), CAD (s/p single vessel CABG 2006 with RUSSELL to OM and ROSALINA x2 to LAD 12/2011; last cath 06/2014 showed patent RUSSELL, patent LAD stents, no sig residual dz except for 80-90% OM that is bypassed), [facility] mvr (st julia, 2006, on coumadin), anemia, TIA, diastolic CHF, DM, HTN, pafib, antiphospholipid syndrome (on coumadin), fibromyalgia, migraines, chronic atypical cp, obesity, LBP here with knee pain/ hemarthrosis. cough/sob/subjective fevers/tracheobronchitis +/- a.e. copd: - on home O2 for copd history - acute process being managed by pulm and ID, cultures and flu swab pending [facility] MVR: -also with antiphospholipid syndrome --> high risk for thrombosis of valve. on AC w/ coumadin target INR 2.5 to 3.5. - INR 1.8 today, start heparin drip (no bolus) until INR 2.5 or greater (cont home coumadin dose for now, if INR not rising in 24-48 hrs would bolus extra dose) - echo 07/2015 with normal [facility] mvr function cad, s/p cabg, pci: - h/o chronic atypical cp. -cp msk, reproducible to palpation. normal lvef on recent echo, no concern for acs. -no bb due to copd, on verapamil instead -not on statin due to prior intolerance -on ranexa as outpt for possible small vessel dz symptoms--will cont same and defer to outpt f/u with her cardio in our office (on 500 bid which is max rec'd dose in combo with verapamil--QTc ok on ekg here--see report) -on ac, no asa chronic diastolic chf - maintained on torsemide at home (40 mg daily). although was supposed to be on 60 mg daily, CXR without significant congestion. No sig volume overload on exam. likely euvolemic at present. - bun/creat ok, despite patient with poor po intake and reports diarrhea at home. con't current torsemide dose for now, monitor BMPs trend HTN: - reasonable control on current meds - cont same, observe bp trend pafib with h/o tia: -rare episodes in past -remains in sr here based on initial ekg and exam -continue verapamil and dig. dig level okay/low here. -AC as disc'd above
[2017-03-22 12:11] LABS: INR 1.81 (0.82-1.09); PROTHROMBIN TIME (PATIENT) 20.5 SEC (9.98-11.88)
[2017-03-22] MEDS ORDERED: PT OWN MED DRAWER 7, Y5N ONE ×2 (12:12→12:45)
--- NOTE | 2017-03-22 12:13 | PN ---
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 OF ANTICOAGULANTS (4) Asthma exacerbation in COPD Code(s): J44.1 - CHRONIC OBSTRUCTIVE PULMONARY DISEASE W (ACUTE) EXACERBATION; J45.901 - UNSPECIFIED ASTHMA WITH (ACUTE) EXACERBATION (5) CAD (coronary artery disease) Code(s): I25.10 - ATHSCL HEART DISEASE OF [place] CORONARY ARTERY W/O ANG PCTRS (6) CHF (congestive heart failure) Code(s): I50.9 - HEART FAILURE, UNSPECIFIED Assessment/Plan O2/NIPPV HS/PRN/BRONCHODILATORS/IV STEROIDS INFLU SWAB- ANTIBIOTICS CONTINUE PT R ROSANA MEZA Problem List - Problems (1) COPD (chronic obstructive pulmonary disease) Code(s): J44.9 - CHRONIC OBSTRUCTIVE PULMONARY DISEASE, UNSPECIFIED (2) Afib Code(s): I48.91 - UNSPECIFIED ATRIAL FIBRILLATION Qualifiers: Atrial fibrillation type: paroxysmal Qualified Code(s): I48.0 - Paroxysmal atrial fibrillation (3) Anticoagulated Code(s): Z79.01 - LONGTERM (CURRENT) USE OF ANTICOAGULANTS (4) Asthma exacerbation in COPD Code(s): J44.1 - CHRONIC OBSTRUCTIVE PULMONARY DISEASE W (ACUTE) EXACERBATION; J45.901 - UNSPECIFIED ASTHMA WITH (ACUTE) EXACERBATION (5) CAD (coronary artery disease) Code(s): I25.10 - ATHSCL HEART DISEASE OF [place] CORONARY ARTERY W/O ANG PCTRS (6) CHF (congestive heart failure) Code(s): I50.9 - HEART FAILURE, UNSPECIFIED
[2017-03-22] MEDS: LEVOFLOXACIN 500 MG IVPB 500 MG/100 ML BAG IVPB SCH (12:17)
[2017-03-22] MEDS: LIDOCAINE 5% TOPICAL PATCH TP SCH (12:17)
[2017-03-22] MEDS: CITALOPRAM HYDROBROMIDE 10 MG TABLET (FP) PO SCH (12:18)
[2017-03-22] MEDS: CHOLECALCIFEROL (VITAMIN D3) 1,000 UNIT TABLET (FP) PO SCH (12:18)
[2017-03-22] MEDS: PANTOPRAZOLE 40 MG TABLET (FP) PO SCH (12:19)
[2017-03-22] MEDS: RANOLAZINE E.R. 500 MG TABLET (FP) PO SCH ×2 (12:19→22:54)
[2017-03-22] MEDS: TORSEMIDE 20 MG TABLET (FP) PO SCH (12:20)
[2017-03-22] MEDS: FERROUS SO4 325 MG TABLET (FP) PO SCH (12:20)
[2017-03-22] MEDS: ERYTHROMYCIN 0.5% OPHTHALMIC OINTMENT 3.5 GM TUBE OU SCH (12:21)
[2017-03-22] MEDS: VERAPAMIL HCL 240 MG E.R. TABLET (FP) PO SCH (12:21)
[2017-03-22] MEDS: KETOTIFEN FUMARATE OU SCH ×2 (12:22→22:53)
[2017-03-22] MEDS: DIGOXIN 0.125 MG TABLET (FP) PO SCH (12:26)
[2017-03-22] MEDS: TOPIRAMATE 100 MG TABLET PO SCH ×2 (12:27→22:55)
[2017-03-22] MEDS: guaiFENesin/D-M SUGAR-FREE/ACLHOL-FREE 118 ML BOTTLE PO PRN (12:46)
[2017-03-22] MEDS: BUDESONIDE 0.25 MG/2ML INH SUSP VIAL NEB SCH ×2 (13:00→22:12)
[2017-03-22] MEDS: POLYETHYLENE GLYCOL 3350 119 GM BTL PO SCH (13:58)
[2017-03-22] MEDS ORDERED: HEPARIN NA (PORCINE) 5,000 UNITS/ML 1ML VIAL SQ SCH (14:00)
[2017-03-22] MEDS ORDERED: HEPARIN NA (PORCINE) 5,000 UNITS/ML 1ML VIAL IVPUSH PRN ×2 (14:41)
[2017-03-22] MEDS ORDERED: ENOXAPARIN NA (PORCINE) 100 MG/1 ML DISP.SYRIN SQ SCH (14:45)
[2017-03-22] MEDS ORDERED: HEPARIN - 25,000 UNIT in SODIUM CHLORIDE 495 ML IV SCH (14:45)
[2017-03-22] MEDS ORDERED: WARFARIN NA 10 MG TABLET (FP) ONE (17:04)
[2017-03-22] MEDS ORDERED: WARFARIN NA 2 MG TABLET (UD) ONE (17:04)
[2017-03-22] MEDS: WARFARIN NA PO SCH (17:06)
[2017-03-22] MEDS: INSULIN DETEMIR 100 UNITS/ML MDV SQ SCH (22:53)
[2017-03-22] MEDS: CARBIDOPA/LEVODOPA 25/100 TABLET (FP) PO SCH (22:54)
[2017-03-22] MEDS: PRAMIPEXOLE DIHYDROCHLORIDE 1.5 MG TABLET PO SCH (22:54)
[2017-03-22] MEDS: SENNOSIDES 8.6MG TABLET (FP) PO SCH (22:54)
[2017-03-22] MEDS: LIDOCAINE PATCH REMOVAL MC SCH (22:54)
[2017-03-22] MEDS: MONTELUKAST NA 10 MG TABLET PO SCH (22:54)
[2017-03-23] MEDS: methylPREDNISolone NA SUCC 40 MG/1 ML VIAL IVPUSH SCH ×4 (02:14→21:54)
[2017-03-23] MEDS ORDERED: INSULIN (NOVOLOG) ASPART 100 UNITS/ML 10ML VIAL ONE (05:54)
[2017-03-23] MEDS: INSULIN SLIDING SCALE (NOVOLOG) 1 VIAL SQ SCH ×3 (06:22→17:50)
[2017-03-23] MEDS: ALBUTEROL SO4 2.5/IPRATROPIUM 0.5 INH SOL 3 ML VIAL.NEB. NEB SCH ×4 (06:37→23:08)
[2017-03-23 07:44] LABS: BASO % 0.1 % (0-2.0); HEMATOCRIT 40.1 % (32.4-45.2); HEMOGLOBIN 12.8 GM/dL (10.7-15.3); LYMPH % 7.1 % (8-40); MCH 28.6 pg (25.7-33.7); MEAN CELL VOLUME 89.5 fl (80-96); MONO % 2.5 % (3.8-10.2); NEUT % 90.3 % (42.8-82.8); PLATELET COUNT 233 K/MM3 (134-434); RBC 4.47 M/mm3 (3.60-5.2); RDW 17.1 % (11.6-15.6); WHITE BLOOD COUNT 12.1 K/mm3 (4.0-10.0)
[2017-03-23 08:15] LABS: ALBUMIN 3.8 g/dl (3.4-5.0); ANION GAP 13 (8-16); BLOOD UREA NITROGEN 39 mg/dL (7-18); CALCIUM 9.1 mg/dL (8.5-10.1); CHLORIDE 104 mmol/L (98-107); CO2 22 mmol/L (21-32); CREATININE 1.4 mg/dL (0.55-1.02); GLUCOSE,RANDOM 289 mg/dL (74-106); POTASSIUM 3.9 mmol/L (3.5-5.1); SGPT/ALT 19 U/L (12-78); SODIUM 139 mmol/L (136-145)
[2017-03-23 08:19] LABS: ALK PHOS 73 U/L (45-117); BILIRUBIN,TOTAL 0.3 mg/dL (0.2-1.0); SGOT/AST 9 U/L (15-37); TOT PROT 7.3 g/dl (6.4-8.2)
[2017-03-23 08:24] LABS: INR 3.31 (0.82-1.09); PROTHROMBIN TIME (PATIENT) 37.4 SEC (9.98-11.88)
--- NOTE | 2017-03-23 09:11 | PN ---
Progress Note, Physician - Current Medication List Current Medications: Active Medications Acetaminophen (Tylenol -) 650 mg PO Q6H PRN PRN Reason: FEVER OR PAIN Albuterol Sulfate (Ventolin 0.083% Nebulizer Soln -) 1 amp NEB Q1H PRN PRN Reason: SHORT OF BREATH/WHEEZING Last Admin: 03/22/17 10:14 Dose: 1 amp Albuterol/Ipratropium (Duoneb -) 1 amp NEB QIDR [facility] Last Admin: 03/23/17 06:37 Dose: 1 amp Artificial Tears (Artificial Tears) 1 drop OU BID PRN PRN Reason: PRN DRY EYES Budesonide (Pulmicort 0.25 Mg Nebulizer -) 1 amp NEB BID [facility] Last Admin: 03/22/17 22:12 Dose: 1 amp Bupropion HCl (Wellbutrin Xl -) 300 mg PO DAILY [facility] Last Admin: 03/22/17 12:19 Dose: 300 mg Carbidopa/Levodopa (Sinemet 25/100 -) 1 each PO HS [facility] Last Admin: 03/22/17 22:54 Dose: 1 each Cholecalciferol (Vitamin D3 -) 1,000 unit PO DAILY [facility] Last Admin: 03/22/17 12:18 Dose: 1,000 unit Citalopram Hydrobromide (Celexa -) 10 mg PO DAILY [facility] Last Admin: 03/22/17 12:18 Dose: 10 mg Digoxin (Lanoxin -) 0.125 mg PO DAILY [facility] Last Admin: 03/22/17 12:26 Dose: 0.125 mg Erythromycin (Erythromycin 0.5% Eye Ointment) 1 applic OU DAILY [facility] Last Admin: 03/22/17 12:21 Dose: 1 applic Ferrous Sulfate (Feosol -) 325 mg PO DAILY [facility] Last Admin: 03/22/17 12:20 Dose: 325 mg Guaifenesin (Diabetic Tussin Dm -) 10 ml PO Q6H PRN PRN Reason: COUGH Last Admin: 03/22/17 12:46 Dose: 10 ml Heparin Sodium (Porcine) (Heparin -) 1,000 unit IVPUSH PRN PRN PRN Reason: Heparin Heparin Sodium (Porcine) (Heparin -) 5,000 unit IVPUSH PRN PRN PRN Reason: Heparin Levofloxacin (Levaquin 500 Mg Premixed Ivpb -) 500 mg in 100 mls @ 100 mls/hr IVPB DAILY [facility] Last Admin: 03/22/17 12:17 Dose: 100 mls/hr Heparin Sodium (Porcine) 25, (000 unit/ Sodium Chloride) 500 mls @ 20 mls/hr IV TITR [facility]; 1,000 UNIT/HR PRN Reason: Protocol Last Admin: 03/22/17 20:21 Dose: 1,000 unit/hr, 20 mls/hr Insulin Aspart (Novolog Vial Sliding Scale -) 1 vial SQ TIDAC [facility] PRN Reason: Protocol Last Admin: 03/23/17 06:22 Dose: 6 unit Insulin Detemir (Levemir Vial) 34 units SQ HS [facility] Last Admin: 03/22/17 22:53 Dose: 34 unit Lidocaine (Lidoderm Patch -) 1 patch TP DAILY [facility] Last Admin: 03/22/17 12:17 Dose: 1 patch Methylprednisolone Sodium Succinate (Solu-Medrol -) 40 mg IVPUSH Q6H-IV [facility] Last Admin: 03/23/17 02:14 Dose: 40 mg Miscellaneous (Lidoderm Patch Removal) 1 each MC DAILY@2200 [facility] Last Admin: 03/22/17 22:54 Dose: 1 each Montelukast Sodium (Singulair -) 10 mg PO HS [facility] Last Admin: 03/22/17 22:54 Dose: 10 mg Non-Formulary Medication (Ketotifen Fumarate [Eye Itch Relief]) 1 drop OU BID [facility] Last Admin: 03/22/17 22:53 Dose: 1 drop Pantoprazole Sodium (Protonix -) 40 mg PO DAILY [facility] Last Admin: 03/22/17 12:19 Dose: 40 mg Polyethylene Glycol (Miralax (For Daily Use) -) 17 gm PO DAILY [facility] Last Admin: 03/22/17 13:58 Dose: Not Given Pramipexole Dihydrochloride (Mirapex -) 1.5 mg PO HS [facility] Last Admin: 03/22/17 22:54 Dose: 1.5 mg Ranolazine (Ranexa -) 500 mg PO BID [facility] Last Admin: 03/22/17 22:54 Dose: 500 mg Senna (Senna -) 2 tab PO HS [facility] Last Admin: 03/22/17 22:54 Dose: 2 tab Topiramate (Topamax -) 150 mg PO BID [facility] Last Admin: 03/22/17 22:55 Dose: 150 mg Torsemide (Demadex -) 40 mg PO DAILY [facility] Last Admin: 03/22/17 12:20 Dose: 40 mg Verapamil HCl (Calan Sr -) 240 mg PO DAILY [facility] Last Admin: 03/22/17 12:21 Dose: 240 mg Warfarin Sodium 10 mg/ (Warfarin Sodium 4 mg) 14 mg PO DAILY@1800 [facility] Last Admin: 03/22/17 17:06 Dose: 14 mg - Objective Vital Signs: Vital Signs Temperature 97.3 F L 03/23/17 06:00 Pulse Rate 58 L 03/23/17 06:00 Respiratory Rate 20 03/23/17 06:00 Blood Pressure 138/60 03/23/17 06:00 O2 Sat by Pulse Oximetry (%) 95 03/22/17 23:00 Cardiovascular: Yes: S1, S2 Respiratory: Yes: Diminished, Rhonchi Gastrointestinal: Yes: Normal Bowel Sounds, Soft Labs: CBC, BMP 03/23/17 06:00 03/23/17 06:00 INR, PTT INR 1.81 (0.82-1.09) H 03/22/17 06:00 Assessment/Plan - Problems (1) Asthma exacerbation in COPD Assessment/Plan: -Pulmonary consult -IV steroid -Neb tx -BIPAP -seen by ID- ordered IV Levaquin Code(s): J44.1 - CHRONIC OBSTRUCTIVE PULMONARY DISEASE W (ACUTE) EXACERBATION; J45.901 - UNSPECIFIED ASTHMA WITH (ACUTE) EXACERBATION (2) CAD (coronary artery disease) Assessment/Plan: -cardiology consult -not on statin due to intolerance -already on AC-warfarin, no Aspirin -repeat echo results pending- echo 07/2015 with normal [facility] mvr function -on CCB Code(s): I25.10 - ATHSCL HEART DISEASE OF [place] CORONARY ARTERY W/O ANG PCTRS (3) CHF (congestive heart failure) Assessment/Plan: -BNP negatve for any fluid overload, -CXR negative -on Torsemide 40 mg po daily Code(s): I50.9 - HEART FAILURE, UNSPECIFIED (4) H/O prosthetic mitral valve Assessment/Plan: -On warfarin, takes 14 mg once a week and 12 mg all other days of the week at home -INR goal 2.5-3.5 (5) IDDM (insulin dependent diabetes mellitus) Assessment/Plan: Levemir and insulin sliding scale -diabetic diet -RD consult -last A1c 6.8 in 12/2016 Code(s): E11.9 - TYPE 2 DIABETES MELLITUS WITHOUT COMPLICATIONS; Z79.4 - USP (CURRENT) USE OF INSULIN (6) Leukocytosis Assessment/Plan: secondary to IV steroids Code(s): D72.829 - ELEVATED WHITE BLOOD CELL COUNT, UNSPECIFIED
[2017-03-23] MEDS: LEVOFLOXACIN 500 MG IVPB 500 MG/100 ML BAG IVPB SCH (10:15)
[2017-03-23] MEDS: TORSEMIDE 20 MG TABLET (FP) PO SCH (10:15)
[2017-03-23] MEDS: LIDOCAINE 5% TOPICAL PATCH TP SCH (10:15)
[2017-03-23] MEDS: ERYTHROMYCIN 0.5% OPHTHALMIC OINTMENT 3.5 GM TUBE OU SCH (10:16)
[2017-03-23] MEDS: CHOLECALCIFEROL (VITAMIN D3) 1,000 UNIT TABLET (FP) PO SCH (10:16)
[2017-03-23] MEDS: PANTOPRAZOLE 40 MG TABLET (FP) PO SCH (10:16)
[2017-03-23] MEDS: FERROUS SO4 325 MG TABLET (FP) PO SCH (10:16)
[2017-03-23] MEDS: CITALOPRAM HYDROBROMIDE 10 MG TABLET (FP) PO SCH (10:16)
[2017-03-23] MEDS: RANOLAZINE E.R. 500 MG TABLET (FP) PO SCH ×2 (10:16→21:57)
[2017-03-23] MEDS: POLYETHYLENE GLYCOL 3350 119 GM BTL PO SCH (10:17)
[2017-03-23] MEDS: TOPIRAMATE 100 MG TABLET PO SCH ×2 (10:17→21:58)
[2017-03-23] MEDS: DIGOXIN 0.125 MG TABLET (FP) PO SCH (10:17)
[2017-03-23] MEDS: VERAPAMIL HCL 240 MG E.R. TABLET (FP) PO SCH (10:19)
[2017-03-23] MEDS: KETOTIFEN FUMARATE OU SCH ×2 (10:19→21:55)
[2017-03-23] MEDS ORDERED: WARFARIN NA 10 MG TABLET (FP) PO SCH (10:20)
--- NOTE | 2017-03-23 10:34 | PN ---
Progress Note, Physician History of Present Illness: Seated in bed Reports + cough productive of whitish sputum No c/o chest pain Mildly tachypneic at ret on nasal cannula Afebrile WBC improved - Current Medication List Current Medications: Active Medications Acetaminophen (Tylenol -) 650 mg PO Q6H PRN PRN Reason: FEVER OR PAIN Albuterol Sulfate (Ventolin 0.083% Nebulizer Soln -) 1 amp NEB Q1H PRN PRN Reason: SHORT OF BREATH/WHEEZING Last Admin: 03/22/17 10:14 Dose: 1 amp Albuterol/Ipratropium (Duoneb -) 1 amp NEB QIDR [facility] Last Admin: 03/23/17 06:37 Dose: 1 amp Artificial Tears (Artificial Tears) 1 drop OU BID PRN PRN Reason: PRN DRY EYES Budesonide (Pulmicort 0.25 Mg Nebulizer -) 1 amp NEB BID [facility] Last Admin: 03/22/17 22:12 Dose: 1 amp Bupropion HCl (Wellbutrin Xl -) 300 mg PO DAILY [facility] Last Admin: 03/23/17 10:20 Dose: 300 mg Carbidopa/Levodopa (Sinemet 25/100 -) 1 each PO HS [facility] Last Admin: 03/22/17 22:54 Dose: 1 each Cholecalciferol (Vitamin D3 -) 1,000 unit PO DAILY [facility] Last Admin: 03/23/17 10:16 Dose: 1,000 unit Citalopram Hydrobromide (Celexa -) 10 mg PO DAILY [facility] Last Admin: 03/23/17 10:16 Dose: 10 mg Digoxin (Lanoxin -) 0.125 mg PO DAILY [facility] Last Admin: 03/23/17 10:17 Dose: 0.125 mg Erythromycin (Erythromycin 0.5% Eye Ointment) 1 applic OU DAILY [facility] Last Admin: 03/23/17 10:16 Dose: 1 applic Ferrous Sulfate (Feosol -) 325 mg PO DAILY [facility] Last Admin: 03/23/17 10:16 Dose: 325 mg Guaifenesin (Diabetic Tussin Dm -) 10 ml PO Q6H PRN PRN Reason: COUGH Last Admin: 03/22/17 12:46 Dose: 10 ml Levofloxacin (Levaquin 500 Mg Premixed Ivpb -) 500 mg in 100 mls @ 100 mls/hr IVPB DAILY [facility] Last Admin: 03/23/17 10:15 Dose: 100 mls/hr Insulin Aspart (Novolog Vial Sliding Scale -) 1 vial SQ TIDAC [facility] PRN Reason: Protocol Last Admin: 03/23/17 06:22 Dose: 6 unit Insulin Detemir (Levemir Vial) 34 units SQ HS [facility] Last Admin: 03/22/17 22:53 Dose: 34 unit Lidocaine (Lidoderm Patch -) 1 patch TP DAILY [facility] Last Admin: 03/23/17 10:15 Dose: 1 patch Methylprednisolone Sodium Succinate (Solu-Medrol -) 40 mg IVPUSH Q6H-IV [facility] Last Admin: 03/23/17 09:30 Dose: 40 mg Miscellaneous (Lidoderm Patch Removal) 1 each MC DAILY@2200 [facility] Last Admin: 03/22/17 22:54 Dose: 1 each Montelukast Sodium (Singulair -) 10 mg PO HS [facility] Last Admin: 03/22/17 22:54 Dose: 10 mg Non-Formulary Medication (Ketotifen Fumarate [Eye Itch Relief]) 1 drop OU BID [facility] Last Admin: 03/23/17 10:19 Dose: 1 drop Pantoprazole Sodium (Protonix -) 40 mg PO DAILY [facility] Last Admin: 03/23/17 10:16 Dose: 40 mg Polyethylene Glycol (Miralax (For Daily Use) -) 17 gm PO DAILY [facility] Last Admin: 03/23/17 10:17 Dose: Not Given Pramipexole Dihydrochloride (Mirapex -) 1.5 mg PO HS [facility] Last Admin: 03/22/17 22:54 Dose: 1.5 mg Ranolazine (Ranexa -) 500 mg PO BID [facility] Last Admin: 03/23/17 10:16 Dose: 500 mg Senna (Senna -) 2 tab PO [facility] Last Admin: 03/22/17 22:54 Dose: 2 tab Topiramate (Topamax -) 150 mg PO BID [facility] Last Admin: 03/23/17 10:17 Dose: 150 mg Torsemide (Demadex -) 40 mg PO DAILY [facility] Last Admin: 03/23/17 10:15 Dose: 40 mg Verapamil HCl (Calan Sr -) 240 mg PO DAILY [facility] Last Admin: 03/23/17 10:19 Dose: 240 mg Warfarin Sodium (Coumadin -) 12 mg PO DAILY@1800 [facility] - Objective Vital Signs: Vital Signs Temperature 97.3 F L 03/23/17 06:00 Pulse Rate 63 03/23/17 10:17 Respiratory Rate 20 03/23/17 06:00 Blood Pressure 138/60 03/23/17 06:00 O2 Sat by Pulse Oximetry (%) 98 03/23/17 09:46 Constitutional: Yes: No Distress, Obese Eyes: Yes: Conjunctiva Clear Cardiovascular: Yes: Regular Rate and Rhythm, S1, S2 Respiratory: Yes: Rhonchi, Other (scatterred rhonchi No wheeze) Gastrointestinal: Yes: Normal Bowel Sounds, Abdomen, Obese. No: Tenderness Edema: Yes Labs: CBC, BMP 03/23/17 06:00 03/23/17 06:00 INR, PTT INR 3.31 (0.82-1.09) H D 03/23/17 06:00 Assessment/Plan Acute exacerbation COPD Tracheobronchitis Leukocytosis- improved ? PCN allergy Continue levaquin IV--> po
[2017-03-23] MEDS: BUDESONIDE 0.25 MG/2ML INH SUSP VIAL NEB SCH ×2 (11:11→22:05)
--- NOTE | 2017-03-23 15:08 | PN ---
Progress Note, Physician History of Present Illness: PULMONARY ALERT,C/O COUGH,SOB - Current Medication List Current Medications: Active Medications Acetaminophen (Tylenol -) 650 mg PO Q6H PRN PRN Reason: FEVER OR PAIN Albuterol Sulfate (Ventolin 0.083% Nebulizer Soln -) 1 amp NEB Q1H PRN PRN Reason: SHORT OF BREATH/WHEEZING Last Admin: 03/22/17 10:14 Dose: 1 amp Albuterol/Ipratropium (Duoneb -) 1 amp NEB QIDR [facility] Last Admin: 03/23/17 11:10 Dose: 1 amp Artificial Tears (Artificial Tears) 1 drop OU BID PRN PRN Reason: PRN DRY EYES Budesonide (Pulmicort 0.25 Mg Nebulizer -) 1 amp NEB BID [facility] Last Admin: 03/23/17 11:11 Dose: Not Given Bupropion HCl (Wellbutrin Xl -) 300 mg PO DAILY [facility] Last Admin: 03/23/17 10:20 Dose: 300 mg Carbidopa/Levodopa (Sinemet 25/100 -) 1 each PO HS [facility] Last Admin: 03/22/17 22:54 Dose: 1 each Cholecalciferol (Vitamin D3 -) 1,000 unit PO DAILY [facility] Last Admin: 03/23/17 10:16 Dose: 1,000 unit Citalopram Hydrobromide (Celexa -) 10 mg PO DAILY [facility] Last Admin: 03/23/17 10:16 Dose: 10 mg Digoxin (Lanoxin -) 0.125 mg PO DAILY [facility] Last Admin: 03/23/17 10:17 Dose: 0.125 mg Erythromycin (Erythromycin 0.5% Eye Ointment) 1 applic OU DAILY [facility] Last Admin: 03/23/17 10:16 Dose: 1 applic Ferrous Sulfate (Feosol -) 325 mg PO DAILY [facility] Last Admin: 03/23/17 10:16 Dose: 325 mg Guaifenesin (Diabetic Tussin Dm -) 10 ml PO Q6H PRN PRN Reason: COUGH Last Admin: 03/22/17 12:46 Dose: 10 ml Levofloxacin (Levaquin 500 Mg Premixed Ivpb -) 500 mg in 100 mls @ 100 mls/hr IVPB DAILY [facility] Last Admin: 03/23/17 10:15 Dose: 100 mls/hr Insulin Aspart (Novolog Vial Sliding Scale -) 1 vial SQ TIDAC [facility] PRN Reason: Protocol Last Admin: 03/23/17 11:42 Dose: 2 unit Insulin Detemir (Levemir Vial) 34 units SQ [facility] Last Admin: 03/22/17 22:53 Dose: 34 unit Lidocaine (Lidoderm Patch -) 1 patch TP DAILY [facility] Last Admin: 03/23/17 10:15 Dose: 1 patch Methylprednisolone Sodium Succinate (Solu-Medrol -) 40 mg IVPUSH Q6H-IV [facility] Last Admin: 03/23/17 09:30 Dose: 40 mg Miscellaneous (Lidoderm Patch Removal) 1 each MC DAILY@2200 [facility] Last Admin: 03/22/17 22:54 Dose: 1 each Montelukast Sodium (Singulair -) 10 mg PO HS [facility] Last Admin: 03/22/17 22:54 Dose: 10 mg Non-Formulary Medication (Ketotifen Fumarate [Eye Itch Relief]) 1 drop OU BID [facility] Last Admin: 03/23/17 10:19 Dose: 1 drop Pantoprazole Sodium (Protonix -) 40 mg PO DAILY [facility] Last Admin: 03/23/17 10:16 Dose: 40 mg Polyethylene Glycol (Miralax (For Daily Use) -) 17 gm PO DAILY [facility] Last Admin: 03/23/17 10:17 Dose: Not Given Pramipexole Dihydrochloride (Mirapex -) 1.5 mg PO [facility] Last Admin: 03/22/17 22:54 Dose: 1.5 mg Ranolazine (Ranexa -) 500 mg PO BID [facility] Last Admin: 03/23/17 10:16 Dose: 500 mg Senna (Senna -) 2 tab PO [facility] Last Admin: 03/22/17 22:54 Dose: 2 tab Topiramate (Topamax -) 150 mg PO BID [facility] Last Admin: 03/23/17 10:17 Dose: 150 mg Torsemide (Demadex -) 40 mg PO DAILY [facility] Last Admin: 03/23/17 10:15 Dose: 40 mg Verapamil HCl (Calan Sr -) 240 mg PO DAILY [facility] Last Admin: 03/23/17 10:19 Dose: 240 mg Warfarin Sodium 10 mg/ (Warfarin Sodium 2 mg) 12 mg PO DAILY@1800 [facility] - Objective Vital Signs: Vital Signs Temperature 97.3 F L 03/23/17 06:00 Pulse Rate 63 01/05/18 10:17 Respiratory Rate 20 03/23/17 06:00 Blood Pressure 138/60 03/23/17 06:00 O2 Sat by Pulse Oximetry (%) 98 03/23/17 09:46 Constitutional: Yes: Well Nourished, Calm Eyes: Yes: WNL HENT: Yes: WNL Neck: Yes: WNL Cardiovascular: Yes: Pulse Irregular, S1, S2 Respiratory: Yes: Wheezes (SCATTERED ABDIEL WHEEZES) Gastrointestinal: Yes: Normal Bowel Sounds, Soft Extremities: Yes: WNL Edema: No Labs: CBC, BMP 03/23/17 06:00 03/23/17 06:00 INR, PTT INR 3.31 (0.82-1.09) H D 03/23/17 06:00 Assessment/Plan (1) COPD (chronic obstructive pulmonary disease) Code(s): J44.9 - CHRONIC OBSTRUCTIVE PULMONARY DISEASE, UNSPECIFIED (2) Afib Code(s): I48.91 - UNSPECIFIED ATRIAL FIBRILLATION Qualifiers: Atrial fibrillation type: paroxysmal Qualified Code(s): I48.0 - Paroxysmal atrial fibrillation (3) Anticoagulated Code(s): Z79.01 - SCAFFOLD SETTER (CURRENT) USE OF ANTICOAGULANTS (4) Asthma exacerbation in COPD Code(s): J44.1 - CHRONIC OBSTRUCTIVE PULMONARY DISEASE W (ACUTE) EXACERBATION; J45.901 - UNSPECIFIED ASTHMA WITH (ACUTE) EXACERBATION (5) CAD (coronary artery disease) Code(s): I25.10 - ATHSCL HEART DISEASE OF [place] CORONARY ARTERY W/O ANG PCTRS (6) CHF (congestive heart failure) Code(s): I50.9 - HEART FAILURE, UNSPECIFIED 7 SLE Assessment/Plan O2/NIPPV HS PRN BRONCHODILATORS IV STEROIDS ANTIBIOTICS CONTINUE PT DR IVERSON
[2017-03-23] MEDS ORDERED: WARFARIN NA 10 MG, WARFARIN NA 2 MG PO SCH (18:00)
[2017-03-23] MEDS ORDERED: WARFARIN NA 2 MG TABLET (UD) PO ONE (18:00)
[2017-03-23] MEDS: INSULIN DETEMIR 100 UNITS/ML MDV SQ SCH (21:56)
[2017-03-23] MEDS: LIDOCAINE PATCH REMOVAL MC SCH (21:57)
[2017-03-23] MEDS: SENNOSIDES 8.6MG TABLET (FP) PO SCH (21:57)
[2017-03-23] MEDS: PRAMIPEXOLE DIHYDROCHLORIDE 1.5 MG TABLET PO SCH (21:57)
[2017-03-23] MEDS: CARBIDOPA/LEVODOPA 25/100 TABLET (FP) PO SCH (21:58)
[2017-03-23] MEDS: MONTELUKAST NA 10 MG TABLET PO SCH (22:01)
--- NOTE | 2017-03-24 00:20 | CONSULT ---
Consult Consult Specialty:: ENDOCRINE Referred by:: SUNNY QURESHI NP Reason for Consultation:: DIABETES MELLITUS - History of Present Illness Chief Complaint: PAIN IN FEET History of Present Illness: 66 yo F with pmhx of anemia, asthma, COPD on home 02, sleep apnea on CPAP, HTN, HLDm DM, CHF, CAD X2 stents, afib on Coumadin, MVR, CVA, Spinal stenosis who presents with cough X2 weeks. Pt. reports having cough and subjective fevers at home. States she saw Dr. España who placed her on prednisone. 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: Yes: CVA, Migraine, Other (light-headedness and dizziness) Cardio/Vascular: Yes: AFIB, CAD, CHF, HTN, Hyperlipdemia, Other (S/P [facility] mitral valve replacement) Pulmonary: Yes: Asthma, COPD, Sleep Apnea (on CPAP at night) Gastrointestinal: Yes: Constipation, Diverticulosis, GI Bleed, Hemorrhoids Hepatobiliary: No: Cirrhosis Renal/: No: Renal Failure Musculoskeletal: Yes: Chronic low back pain, Other (Spinal stenosis) Rheumatology: Yes: Lupus, Other (APLAS (BOTH LUPUS AND APLS ARE QUESTIONABLE)) Endocrine: Yes: Diabetes Mellitus - Past Surgical History Past Surgical History: Yes: CABG, Cholecystectomy, Hysterectomy, Oopherectomy - Alcohol/Substance Use Hx Alcohol Use: No History of Substance Use: reports: None - Smoking History Smoking history: Former smoker Have you smoked in the past 12 months: No Aproximately how many cigarettes per day: 0 If you are a former smoker, when did you quit?: many years - Social History Usual Living Arrangement: With Spouse ADL: Independent History of Recent Travel: No Home Medications - Allergies Allergies/Adverse Reactions: Allergies Allergy/AdvReac Type Severity Reaction Status Date / Time lactose Allergy Mild Verified 03/20/17 18:08 Beta-Blockers Allergy Verified 03/20/17 18:08 (Beta-Adrenergic Bloc Iodinated Contrast- Oral and Allergy Verified 03/20/17 18:08 IV Dye [IV Dye, Iodine Containing Contrast ] shellfish derived Allergy Verified 03/20/17 18:08 - Home Medications Home Medications: Ambulatory Orders Albuterol 0.083% Nebulizer Brigitte [Ventolin 0.083% Nebulizer Soln -] 1 neb NEB QID 02/01/16 Carbidopa/Levodopa [Carbidopa-Levodopa 25-100 Tab] 1 each PO HS 02/01/16 Cholecalciferol (Vitamin D3) [Vitamin D3] 1,000 unit PO DAILY 02/01/16 Ferrous Sulfate [Feosol] 325 mg PO DAILY 02/01/16 Insulin Sliding Scale [Novolog Vial Sliding Scale -] 0 units SQ ACHS 02/01/16 Montelukast Na [Singulair -] 10 mg PO HS 02/01/16 Reeder-3 Acid Ethyl Esters [Lovaza] 1 gm PO BID 02/01/16 Polyethylene Glycol 3350 [Miralax 119 gm Btl -] 17 gm PO DAILY 02/01/16 Potassium Chloride 60 meq PO DAILY 02/01/16 Sennosides [Senna] 2 tab PO HS 02/01/16 Topiramate [Topiramate ER] 150 mg PO BID 02/01/16 Verapamil HCl [Verapamil ER] 240 mg PO DAILY 02/01/16 Warfarin Na [Coumadin -] 14 mg PO DAILY 02/01/16 Acetaminophen [Tylenol .Regular Strength -] 650 mg PO Q6H PRN #0 tablet Bupropion HCl [Wellbutrin Xl -] 300 mg PO DAILY #30 tab 09/03/16 Citalopram Hydrobromide [Celexa -] 10 mg PO DAILY tablet 09/03/16 Digoxin [Lanoxin -] 0.125 mg PO DAILY #30 tablet 09/03/16 Insulin (Levemir) [Levemir Vial] 30 units SQ HS ml 09/03/16 Lidocaine 5% Patch [Lidoderm -] 1 patch TP DAILY patch 09/03/16 Pantoprazole Sodium [Protonix -] 40 mg PO DAILY tab 09/03/16 Pramipexole Dihydrochloride [Mirapex -] 1.5 mg PO HS tablet 09/03/16 Ranolazine [Ranexa -] 500 mg PO BID tab 09/03/16 Erythromycin 0.5% Eye Ointment [Erythromycin 0.5% Eye Ointment -] 1 applic OU DAILY 03/20/17 Ketotifen Fumarate [Eye Itch Relief] 1 drop OU BID 03/20/17 Nitroglycerin [Nitrostat] 0.4 mg SL PRN PRN 03/20/17 Polyvinyl Alcohol [Artificial Tears] 1 drop OU ASDIR 03/20/17 Torsemide [Demadex -] 60 mg PO BID 03/20/17 Family Disease History - Family Disease History Family Disease History: Diabetes: Grandparent, Mother, Heart Disease: Father, Other: Sister (Lupus) Review of Systems - Review of Systems Constitutional: reports: Lethargy, Weakness Eyes: reports: Blurred Vision HENT: reports: No Symptoms Neck: reports: Decreased ROM Cardiovascular: reports: Edema, Shortness of Breath Respiratory: reports: Orthopnea, Wheezing Gastrointestinal: reports: Bloating, Nausea Genitourinary: reports: Frequency, Urgency Breasts: reports: No Symptoms Reported Musculoskeletal: reports: Muscle Pain, Muscle Cramps, Muscle Weakness Integumentary: reports: No Symptoms Neurological: reports: Dizziness, Tremors, Unsteady Gait, Weakness Endocrine: reports: Unexplained Weight Gain Physical Exam Vital Signs: Vital Signs Temperature 97.8 F 03/23/17 21:51 Pulse Rate 67 03/23/17 21:51 Respiratory Rate 20 03/23/17 23:00 Blood Pressure 147/63 03/23/17 21:51 O2 Sat by Pulse Oximetry (%) 96 03/23/17 23:00 Constitutional: Yes: Anxious Eyes: Yes: EOM Intact HENT: Yes: Normocephalic Neck: Yes: Trachea Midline Cardiovascular: Yes: Tachycardia Respiratory: Yes: Cough, SOB on Exertion, Wheezes Gastrointestinal: Yes: Normal Bowel Sounds Renal/: Yes: WNL Breast(s): Yes: WNL Musculoskeletal: Yes: Back Pain, Joint Stiffness, Muscle Pain, Muscle Weakness Labs: CBC, BMP 03/23/17 06:00 03/23/17 06:00 Problem List - Problems (1) Type 2 diabetes mellitus with hyperosmolarity without nonketotic hyperglycemic-hyperosmolar coma ([facility]) Code(s): E11.00 - TYPE 2 DIAB W HYPROSM W/O NONKET HYPRGLY-HYPROS COMA ([facility]) (2) COPD (chronic obstructive pulmonary disease) Code(s): J44.9 - CHRONIC OBSTRUCTIVE PULMONARY DISEASE, UNSPECIFIED (3) Afib Code(s): I48.91 - UNSPECIFIED ATRIAL FIBRILLATION Qualifiers: Atrial fibrillation type: paroxysmal Qualified Code(s): I48.0 - Paroxysmal atrial fibrillation (4) Anterior epistaxis Code(s): R04.0 - EPISTAXIS (5) Asthma exacerbation in COPD Code(s): J44.1 - CHRONIC OBSTRUCTIVE PULMONARY DISEASE W (ACUTE) EXACERBATION; J45.901 - UNSPECIFIED ASTHMA WITH (ACUTE) EXACERBATION (6) CAD (coronary artery disease) Code(s): I25.10 - ATHSCL HEART DISEASE OF [place] CORONARY ARTERY W/O ANG PCTRS (7) CHF (congestive heart failure) Code(s): I50.9 - HEART FAILURE, UNSPECIFIED Assessment/Plan Current Active Problems COPD (chronic obstructive pulmonary disease) (Acute) diabetes mellitus hypergycemia htn ashd afib lupus anticoagulant chf Abnormal Lab Results 03/23/17 03/23/17 03/23/17 06:00 06:00 06:00 WBC 12.1 H RDW 17.1 H Neutrophils % 90.3 H Lymphocytes % 7.1 L Monocytes % 2.5 L PT with INR 37.40 H INR 3.31 H D BUN 39 H D Creatinine 1.4 H Random Glucose 289 H AST 9 L D Laboratory Results - last 24 hr 03/23/17 03/23/17 03/23/17 06:00 06:00 06:00 WBC 12.1 H RBC 4.47 Hgb 12.8 Hct 40.1 MCV 89.5 MCH 28.6 MCHC 32.0 RDW 17.1 H Plt Count 233 MPV 10.0 Neutrophils % 90.3 H Lymphocytes % 7.1 L Monocytes % 2.5 L Eosinophils % 0.0 Basophils % 0.1 PT with INR 37.40 H INR 3.31 H D Sodium 139 Potassium 3.9 Chloride 104 Carbon Dioxide 22 Anion Gap 13 BUN 39 H D Creatinine 1.4 H Creat Clearance w eGFR 37.74 POC Glucometer Random Glucose 289 H Calcium 9.1 Total Bilirubin 0.3 AST 9 L D ALT 19 D Alkaline Phosphatase 73 Total Protein 7.3 Albumin 3.8 03/23/17 03/23/17 03/23/17 06:20 11:39 17:29 WBC RBC Hgb Hct MCV MCH MCHC RDW Plt Count MPV Neutrophils % Lymphocytes % Monocytes % Eosinophils % Basophils % PT with INR INR Sodium Potassium Chloride Carbon Dioxide Anion Gap BUN Creatinine Creat Clearance w eGFR POC Glucometer 287 243 187 Random Glucose Calcium Total Bilirubin AST ALT Alkaline Phosphatase Total Protein Albumin 03/23/17 21:53 WBC RBC Hgb Hct MCV MCH MCHC RDW Plt Count MPV Neutrophils % Lymphocytes % Monocytes % Eosinophils % Basophils % PT with INR INR Sodium Potassium Chloride Carbon Dioxide Anion Gap BUN Creatinine Creat Clearance w eGFR POC Glucometer 193 Random Glucose Calcium Total Bilirubin AST ALT Alkaline Phosphatase Total Protein Albumin plan : bgm qid novolog insulin Current Medications Generic Name Dose Route Start Last Admin Trade Name Freq PRN Reason Stop Dose Admin Acetaminophen 650 mg 03/20/17 23:08 Tylenol - PO Q6H PRN FEVER OR PAIN Albuterol Sulfate 1 amp 03/21/17 13:40 03/22/17 10:14 Ventolin 0.083% Nebulizer Soln - NEB 1 amp Q1H PRN Administration SHORT OF BREATH/WHEEZING Albuterol/Ipratropium 1 amp 03/21/17 18:00 03/23/17 23:08 Duoneb - NEB 1 amp QIDR [facility] Administration Artificial Tears 1 drop 03/20/17 23:15 Artificial Tears OU BID PRN PRN DRY EYES Budesonide 1 amp 03/22/17 11:15 03/23/17 22:05 Pulmicort 0.25 Mg Nebulizer - NEB 1 amp BID [facility] Administration Bupropion HCl 300 mg 03/21/17 10:00 03/23/17 10:20 Wellbutrin Xl - PO 300 mg DAILY [facility] Administration Carbidopa/Levodopa 1 each 03/21/17 22:00 03/23/17 21:58 Sinemet 25/100 - PO 1 each HS [facility] Administration Cholecalciferol 1,000 unit 03/21/17 10:00 03/23/17 10:16 Vitamin D3 - PO 1,000 unit DAILY [facility] Administration Citalopram Hydrobromide 10 mg 03/21/17 10:00 03/23/17 10:16 Celexa - PO 10 mg DAILY [facility] Administration Digoxin 0.125 mg 03/21/17 10:00 03/23/17 10:17 Lanoxin - PO 0.125 mg DAILY [facility] Administration Erythromycin 1 applic 03/21/17 10:00 03/23/17 10:16 Erythromycin 0.5% Eye Ointment OU 1 applic DAILY [facility] Administration Ferrous Sulfate 325 mg 03/21/17 10:00 03/23/17 10:16 Feosol - PO 325 mg DAILY [facility] Administration Guaifenesin 10 ml 03/21/17 17:30 03/22/17 12:46 Diabetic Tussin Dm - PO 10 ml Q6H PRN Administration COUGH Levofloxacin 500 mg in 100 mls @ 100 mls/hr 03/22/17 10:00 03/23/17 10:15 Levaquin 500 Mg Premixed Ivpb - IVPB 100 mls/hr DAILY [facility] Administration Insulin Aspart 1 vial 03/22/17 16:30 03/23/17 17:50 Novolog Vial Sliding Scale - SQ Not Given TIDAC [facility] Protocol Insulin Detemir 34 units 03/22/17 14:39 03/23/17 21:56 Levemir Vial SQ 34 unit HS [facility] Administration Lidocaine 1 patch 03/21/17 10:00 03/23/17 10:15 Lidoderm Patch - TP 1 patch DAILY [facility] Administration Methylprednisolone Sodium Succinate 40 mg 03/21/17 15:00 03/23/17 21:54 Solu-Medrol - IVPUSH 40 mg Q6H-IV [facility] Administration Miscellaneous 1 each 03/21/17 22:00 03/23/17 21:57 Lidoderm Patch Removal MC 1 each DAILY@2200 [facility] Administration Montelukast Sodium 10 mg 03/21/17 22:00 03/23/17 22:01 Singulair - PO 10 mg HS [facility] Administration Non-Formulary Medication 1 drop 03/21/17 10:00 03/23/17 21:55 Ketotifen Fumarate [Eye Itch Relief] OU 1 drop BID [facility] Administration Pantoprazole Sodium 40 mg 03/21/17 10:00 03/23/17 10:16 Protonix - PO 40 mg DAILY [facility] Administration Polyethylene Glycol 17 gm 03/21/17 10:00 03/23/17 10:17 Miralax (For Daily Use) - PO Not Given DAILY [facility] Pramipexole Dihydrochloride 1.5 mg 03/21/17 22:00 03/23/17 21:57 Mirapex - PO 1.5 mg HS [facility] Administration Ranolazine 500 mg 03/21/17 10:00 03/23/17 21:57 Ranexa - PO 500 mg BID [facility] Administration Senna 2 tab 03/21/17 22:00 03/23/17 21:57 Senna - PO 2 tab HS [facility] Administration Topiramate 150 mg 03/20/17 23:10 03/23/17 21:58 Topamax - PO 150 mg BID [facility] Administration Torsemide 40 mg 03/22/17 10:00 03/23/17 10:15 Demadex - PO 40 mg DAILY [facility] Administration Verapamil HCl 240 mg 03/21/17 10:00 03/23/17 10:19 Calan Sr - PO 240 mg DAILY [facility] Administration Warfarin Sodium 10 mg/ 12 mg 03/24/17 18:00 Warfarin Sodium 2 mg PO DAILY@1800 [facility] neurology consult
[2017-03-24] MEDS ORDERED: PT OWN MED DRAWER 7, Y5N ONE ×4 (01:05→10:15)
[2017-03-24] MEDS: guaiFENesin/D-M SUGAR-FREE/ACLHOL-FREE 118 ML BOTTLE PO PRN ×2 (01:18→08:00)
[2017-03-24] MEDS: ALBUTEROL SO4 0.083% IH SOL 2.5 MG/3 ML VIAL.NEB. NEB PRN (01:47)
[2017-03-24] MEDS: methylPREDNISolone NA SUCC 40 MG/1 ML VIAL IVPUSH SCH ×4 (02:24→21:45)
[2017-03-24] MEDS: ALBUTEROL SO4 2.5/IPRATROPIUM 0.5 INH SOL 3 ML VIAL.NEB. NEB SCH ×4 (05:49→23:00)
[2017-03-24] MEDS ORDERED: INSULIN (NOVOLOG) ASPART 100 UNITS/ML 10ML VIAL ONE (06:44)
[2017-03-24] MEDS: INSULIN SLIDING SCALE (NOVOLOG) 1 VIAL SQ SCH ×3 (06:50→17:06)
[2017-03-24 07:57] LABS: HEMATOCRIT 40.4 % (32.4-45.2); MCHC 32.3 g/dl (32.0-36.0); MEAN CELL VOLUME 89.8 fl (80-96); MEAN PLT VOLUME 10.1 fl (7.5-11.1); PLATELET COUNT 234 K/MM3 (134-434); WHITE BLOOD COUNT 10.3 K/mm3 (4.0-10.0)
--- NOTE | 2017-03-24 08:22 | PN ---
Progress Note, Physician History of Present Illness: INTERMITTENT COUGH AND SOB - Current Medication List Current Medications: Active Medications Acetaminophen (Tylenol -) 650 mg PO Q6H PRN PRN Reason: FEVER OR PAIN Albuterol Sulfate (Ventolin 0.083% Nebulizer Soln -) 1 amp NEB Q1H PRN PRN Reason: SHORT OF BREATH/WHEEZING Last Admin: 03/24/17 01:47 Dose: 1 amp Albuterol/Ipratropium (Duoneb -) 1 amp NEB QIDR [facility] Last Admin: 03/24/17 05:49 Dose: 1 amp Artificial Tears (Artificial Tears) 1 drop OU BID PRN PRN Reason: PRN DRY EYES Budesonide (Pulmicort 0.25 Mg Nebulizer -) 1 amp NEB BID [facility] Last Admin: 03/23/17 22:05 Dose: 1 amp Bupropion HCl (Wellbutrin Xl -) 300 mg PO DAILY [facility] Last Admin: 03/23/17 10:20 Dose: 300 mg Carbidopa/Levodopa (Sinemet 25/100 -) 1 each PO HS [facility] Last Admin: 03/23/17 21:58 Dose: 1 each Cholecalciferol (Vitamin D3 -) 1,000 unit PO DAILY [facility] Last Admin: 03/23/17 10:16 Dose: 1,000 unit Citalopram Hydrobromide (Celexa -) 10 mg PO DAILY [facility] Last Admin: 03/23/17 10:16 Dose: 10 mg Digoxin (Lanoxin -) 0.125 mg PO DAILY [facility] Last Admin: 03/23/17 10:17 Dose: 0.125 mg Erythromycin (Erythromycin 0.5% Eye Ointment) 1 applic OU DAILY [facility] Last Admin: 03/23/17 10:16 Dose: 1 applic Ferrous Sulfate (Feosol -) 325 mg PO DAILY [facility] Last Admin: 03/23/17 10:16 Dose: 325 mg Guaifenesin (Diabetic Tussin Dm -) 10 ml PO Q6H PRN PRN Reason: COUGH Last Admin: 03/24/17 08:00 Dose: 10 ml Levofloxacin (Levaquin 500 Mg Premixed Ivpb -) 500 mg in 100 mls @ 100 mls/hr IVPB DAILY [facility] Last Admin: 03/23/17 10:15 Dose: 100 mls/hr Insulin Aspart (Novolog Vial Sliding Scale -) 1 vial SQ TIDAC [facility] PRN Reason: Protocol Last Admin: 03/24/17 06:50 Dose: 6 unit Insulin Detemir (Levemir Vial) 34 units SQ HS [facility] Last Admin: 03/23/17 21:56 Dose: 34 unit Lidocaine (Lidoderm Patch -) 1 patch TP DAILY [facility] Last Admin: 03/23/17 10:15 Dose: 1 patch Methylprednisolone Sodium Succinate (Solu-Medrol -) 40 mg IVPUSH Q6H-IV [facility] Last Admin: 03/24/17 08:00 Dose: 40 mg Miscellaneous (Lidoderm Patch Removal) 1 each MC DAILY@2200 [facility] Last Admin: 03/23/17 21:57 Dose: 1 each Montelukast Sodium (Singulair -) 10 mg PO HS [facility] Last Admin: 03/23/17 22:01 Dose: 10 mg Non-Formulary Medication (Ketotifen Fumarate [Eye Itch Relief]) 1 drop OU BID [facility] Last Admin: 03/23/17 21:55 Dose: 1 drop Pantoprazole Sodium (Protonix -) 40 mg PO DAILY [facility] Last Admin: 03/23/17 10:16 Dose: 40 mg Polyethylene Glycol (Miralax (For Daily Use) -) 17 gm PO DAILY [facility] Last Admin: 03/23/17 10:17 Dose: Not Given Pramipexole Dihydrochloride (Mirapex -) 1.5 mg PO HS [facility] Last Admin: 03/23/17 21:57 Dose: 1.5 mg Ranolazine (Ranexa -) 500 mg PO BID [facility] Last Admin: 03/23/17 21:57 Dose: 500 mg Senna (Senna -) 2 tab PO [facility] Last Admin: 03/23/17 21:57 Dose: 2 tab Topiramate (Topamax -) 150 mg PO BID [facility] Last Admin: 03/23/17 21:58 Dose: 150 mg Torsemide (Demadex -) 40 mg PO DAILY [facility] Last Admin: 03/23/17 10:15 Dose: 40 mg Verapamil HCl (Calan Sr -) 240 mg PO DAILY [facility] Last Admin: 03/23/17 10:19 Dose: 240 mg Warfarin Sodium 10 mg/ (Warfarin Sodium 2 mg) 12 mg PO DAILY@1800 [facility] - Objective Vital Signs: Vital Signs Temperature 98.3 F 03/24/17 05:00 Pulse Rate 65 03/24/17 05:00 Respiratory Rate 20 03/24/17 05:00 Blood Pressure 135/61 03/24/17 05:00 O2 Sat by Pulse Oximetry (%) 96 03/23/17 23:00 Cardiovascular: Yes: S1, S2 Respiratory: Yes: Rales, SOB on Exertion Gastrointestinal: Yes: Normal Bowel Sounds, Soft Labs: CBC, BMP 03/24/17 06:20 03/23/17 06:00 INR, PTT INR 3.31 (0.82-1.09) H D 03/23/17 06:00 Assessment/Plan - Problems (1) Asthma exacerbation in COPD Assessment/Plan: -Pulmonary consult -IV steroid -Neb tx -BIPAP -seen by ID- ordered IV Levaquin -CT OF CHEST Code(s): J44.1 - CHRONIC OBSTRUCTIVE PULMONARY DISEASE W (ACUTE) EXACERBATION; J45.901 - UNSPECIFIED ASTHMA WITH (ACUTE) EXACERBATION (2) CAD (coronary artery disease) Assessment/Plan: -cardiology consult -not on statin due to intolerance -already on AC-warfarin, no Aspirin -repeat echo results pending- echo 07/2015 with normal [facility] mvr function -on CCB Code(s): I25.10 - ATHSCL HEART DISEASE OF [place] CORONARY ARTERY W/O ANG PCTRS (3) CHF (congestive heart failure) Assessment/Plan: -BNP negatve for any fluid overload, -CXR negative -on Torsemide 40 mg po daily Code(s): I50.9 - HEART FAILURE, UNSPECIFIED (4) H/O prosthetic mitral valve Assessment/Plan: -On warfarin, takes 14 mg once a week and 12 mg all other days of the week at home -INR goal 2.5-3.5 (5) IDDM (insulin dependent diabetes mellitus) Assessment/Plan: Levemir and insulin sliding scale -diabetic diet -RD consult -last A1c 6.8 in 12/2016 Code(s): E11.9 - TYPE 2 DIABETES MELLITUS WITHOUT COMPLICATIONS; Z79.4 - [place] (CURRENT) USE OF INSULIN (6) Leukocytosis Assessment/Plan: secondary to IV steroids Code(s): D72.829 - ELEVATED WHITE BLOOD CELL COUNT, UNSPECIFIED
[2017-03-24 08:41] LABS: INR 3.09 (0.82-1.09); PROTHROMBIN TIME (PATIENT) 34.9 SEC (9.98-11.88)
[2017-03-24] MEDS: LEVOFLOXACIN 500 MG IVPB 500 MG/100 ML BAG IVPB SCH (10:21)
[2017-03-24] MEDS: TORSEMIDE 20 MG TABLET (FP) PO SCH (10:22)
[2017-03-24] MEDS: PREGABALIN 25 MG CAPSULE PO SCH ×2 (10:22→22:46)
[2017-03-24] MEDS: CHOLECALCIFEROL (VITAMIN D3) 1,000 UNIT TABLET (FP) PO SCH (10:22)
[2017-03-24] MEDS: PANTOPRAZOLE 40 MG TABLET (FP) PO SCH (10:23)
[2017-03-24] MEDS: FERROUS SO4 325 MG TABLET (FP) PO SCH (10:25)
[2017-03-24] MEDS: RANOLAZINE E.R. 500 MG TABLET (FP) PO SCH ×2 (10:25→22:46)
[2017-03-24] MEDS: CITALOPRAM HYDROBROMIDE 10 MG TABLET (FP) PO SCH (10:26)
[2017-03-24] MEDS: ARTIFICIAL TEARS (POLYVINYL ALCOHOL 1.4%) OPTH DROPS OU PRN (10:26)
[2017-03-24] MEDS: DIGOXIN 0.125 MG TABLET (FP) PO SCH (10:27)
[2017-03-24] MEDS: LIDOCAINE 5% TOPICAL PATCH TP SCH (10:27)
[2017-03-24] MEDS: KETOTIFEN FUMARATE OU SCH ×2 (10:29→22:45)
[2017-03-24] MEDS: VERAPAMIL HCL 240 MG E.R. TABLET (FP) PO SCH (10:29)
[2017-03-24] MEDS: BUDESONIDE 0.25 MG/2ML INH SUSP VIAL NEB SCH ×2 (10:29→22:15)
[2017-03-24] MEDS: TOPIRAMATE 100 MG TABLET PO SCH ×2 (10:31→22:47)
[2017-03-24] MEDS: POLYETHYLENE GLYCOL 3350 119 GM BTL PO SCH (10:37)
[2017-03-24] MEDS: ERYTHROMYCIN 0.5% OPHTHALMIC OINTMENT 3.5 GM TUBE OU SCH (11:55)
--- NOTE | 2017-03-24 13:51 | PN ---
Progress Note, Physician History of Present Illness: PULMONARY ALERT,C/O SOB,+COUGH - Current Medication List Current Medications: Active Medications Acetaminophen (Tylenol -) 650 mg PO Q6H PRN PRN Reason: FEVER OR PAIN Albuterol Sulfate (Ventolin 0.083% Nebulizer Soln -) 1 amp NEB Q1H PRN PRN Reason: SHORT OF BREATH/WHEEZING Last Admin: 03/24/17 01:47 Dose: 1 amp Albuterol/Ipratropium (Duoneb -) 1 amp NEB QIDR [facility] Last Admin: 03/24/17 11:30 Dose: 1 amp Artificial Tears (Artificial Tears) 1 drop OU BID PRN PRN Reason: PRN DRY EYES Last Admin: 03/24/17 10:26 Dose: 1 drop Budesonide (Pulmicort 0.25 Mg Nebulizer -) 1 amp NEB BID [facility] Last Admin: 03/24/17 10:29 Dose: 1 amp Bupropion HCl (Wellbutrin Xl -) 300 mg PO DAILY [facility] Last Admin: 03/24/17 10:24 Dose: 300 mg Carbidopa/Levodopa (Sinemet 25/100 -) 1 each PO HS [facility] Last Admin: 03/23/17 21:58 Dose: 1 each Cholecalciferol (Vitamin D3 -) 1,000 unit PO DAILY [facility] Last Admin: 03/24/17 10:22 Dose: 1,000 unit Citalopram Hydrobromide (Celexa -) 10 mg PO DAILY [facility] Last Admin: 03/24/17 10:26 Dose: 10 mg Digoxin (Lanoxin -) 0.125 mg PO DAILY [facility] Last Admin: 03/24/17 10:27 Dose: 0.125 mg Erythromycin (Erythromycin 0.5% Eye Ointment) 1 applic OU DAILY [facility] Last Admin: 03/24/17 11:55 Dose: Not Given Ferrous Sulfate (Feosol -) 325 mg PO DAILY [facility] Last Admin: 03/24/17 10:25 Dose: 325 mg Guaifenesin (Diabetic Tussin Dm -) 10 ml PO Q6H PRN PRN Reason: COUGH Last Admin: 03/24/17 08:00 Dose: 10 ml Levofloxacin (Levaquin 500 Mg Premixed Ivpb -) 500 mg in 100 mls @ 100 mls/hr IVPB DAILY [facility] Last Admin: 03/24/17 10:21 Dose: 100 mls/hr Insulin Aspart (Novolog Vial Sliding Scale -) 1 vial SQ TIDAC [facility] PRN Reason: Protocol Last Admin: 03/24/17 06:50 Dose: 6 unit Insulin Detemir (Levemir Vial) 34 units SQ HS [facility] Last Admin: 03/23/17 21:56 Dose: 34 unit Lidocaine (Lidoderm Patch -) 1 patch TP DAILY [facility] Last Admin: 03/24/17 10:27 Dose: 1 patch Methylprednisolone Sodium Succinate (Solu-Medrol -) 40 mg IVPUSH Q6H-IV [facility] Last Admin: 03/24/17 08:00 Dose: 40 mg Miscellaneous (Lidoderm Patch Removal) 1 each MC DAILY@2200 [facility] Last Admin: 03/23/17 21:57 Dose: 1 each Montelukast Sodium (Singulair -) 10 mg PO HS [facility] Last Admin: 03/23/17 22:01 Dose: 10 mg Non-Formulary Medication (Ketotifen Fumarate [Eye Itch Relief]) 1 drop OU BID [facility] Last Admin: 03/24/17 10:29 Dose: 1 drop Pantoprazole Sodium (Protonix -) 40 mg PO DAILY [facility] Last Admin: 03/24/17 10:23 Dose: 40 mg Polyethylene Glycol (Miralax (For Daily Use) -) 17 gm PO DAILY [facility] Last Admin: 03/24/17 10:37 Dose: Not Given Pramipexole Dihydrochloride (Mirapex -) 1.5 mg PO HS [facility] Last Admin: 03/23/17 21:57 Dose: 1.5 mg Pregabalin (Lyrica -) 25 mg PO BID [facility] Last Admin: 03/24/17 10:22 Dose: 25 mg Ranolazine (Ranexa -) 500 mg PO BID [facility] Last Admin: 03/24/17 10:25 Dose: 500 mg Senna (Senna -) 2 tab PO [facility] Last Admin: 03/23/17 21:57 Dose: 2 tab Topiramate (Topamax -) 150 mg PO BID [facility] Last Admin: 03/24/17 10:31 Dose: 150 mg Torsemide (Demadex -) 40 mg PO DAILY [facility] Last Admin: 03/24/17 10:22 Dose: 40 mg Verapamil HCl (Calan Sr -) 240 mg PO DAILY [facility] Last Admin: 03/24/17 10:29 Dose: 240 mg Warfarin Sodium 10 mg/ (Warfarin Sodium 2 mg) 12 mg PO DAILY@1800 [facility] - Objective Vital Signs: Vital Signs Temperature 98.5 F 03/24/17 10:05 Pulse Rate 67 03/24/17 10:28 Respiratory Rate 18 03/24/17 10:05 Blood Pressure 132/58 03/24/17 10:05 O2 Sat by Pulse Oximetry (%) 97 03/24/17 11:29 Constitutional: Yes: Well Nourished, Calm Eyes: Yes: WNL HENT: Yes: WNL Neck: Yes: WNL Cardiovascular: Yes: Pulse Irregular, S1, S2 Respiratory: Yes: Wheezes (SCATTERED ABDIEL WHEEZES) Gastrointestinal: Yes: Normal Bowel Sounds, Soft Extremities: Yes: WNL Edema: Yes Labs: CBC, BMP 03/24/17 06:20 INR, PTT INR 3.09 (0.82-1.09) H 03/24/17 08:30 Assessment/Plan (1) COPD (chronic obstructive pulmonary disease) Code(s): J44.9 - CHRONIC OBSTRUCTIVE PULMONARY DISEASE, UNSPECIFIED (2) Afib Code(s): I48.91 - UNSPECIFIED ATRIAL FIBRILLATION Qualifiers: Atrial fibrillation type: paroxysmal Qualified Code(s): I48.0 - Paroxysmal atrial fibrillation (3) Anticoagulated Code(s): Z79.01 - ALF (CURRENT) USE OF ANTICOAGULANTS (4) Asthma exacerbation in COPD Code(s): J44.1 - CHRONIC OBSTRUCTIVE PULMONARY DISEASE W (ACUTE) EXACERBATION; J45.901 - UNSPECIFIED ASTHMA WITH (ACUTE) EXACERBATION (5) CAD (coronary artery disease) Code(s): I25.10 - ATHSCL HEART DISEASE OF [place] CORONARY ARTERY W/O ANG PCTRS (6) CHF (congestive heart failure) Code(s): I50.9 - HEART FAILURE, UNSPECIFIED 7 SLE Assessment/Plan O2/NIPPV HS PRN BRONCHODILATORS IV STEROIDS ANTIBIOTICS CONTINUE PT ANTI-TUSSIVES DR IVERSON
[2017-03-24] MEDS: guaiFENesin/CODEINE 10 ML UNIT-DOSE CUPS PO PRN ×2 (15:09→23:33)
[2017-03-24] MEDS ORDERED: WARFARIN NA 2 MG TABLET (UD) ONE (17:42)
[2017-03-24] MEDS ORDERED: WARFARIN NA 10 MG TABLET (FP) ONE (17:42)
[2017-03-24] MEDS: WARFARIN NA 10 MG, WARFARIN NA 2 MG PO SCH (17:44)
[2017-03-24] MEDS ORDERED: WARFARIN NA 2 MG TABLET (UD) PO ONE (18:00)
[2017-03-24] MEDS ORDERED: BUDESONIDE 0.5 MG/2 ML INH SUSP VIAL NEB ONE (22:08)
[2017-03-24] MEDS: INSULIN DETEMIR 100 UNITS/ML MDV SQ SCH (22:45)
[2017-03-24] MEDS: LIDOCAINE PATCH REMOVAL MC SCH (22:46)
[2017-03-24] MEDS: PRAMIPEXOLE DIHYDROCHLORIDE 1.5 MG TABLET PO SCH (22:46)
[2017-03-24] MEDS: CARBIDOPA/LEVODOPA 25/100 TABLET (FP) PO SCH (22:47)
[2017-03-24] MEDS: SENNOSIDES 8.6MG TABLET (FP) PO SCH (22:47)
[2017-03-24] MEDS: MONTELUKAST NA 10 MG TABLET PO SCH (22:59)
[2017-03-25] MEDS: methylPREDNISolone NA SUCC 40 MG/1 ML VIAL IVPUSH SCH ×4 (02:44→22:10)
[2017-03-25] MEDS ORDERED: INSULIN (NOVOLOG) ASPART 100 UNITS/ML 10ML VIAL ONE ×2 (06:04→10:45)
[2017-03-25] MEDS: INSULIN SLIDING SCALE (NOVOLOG) 1 VIAL SQ SCH ×3 (06:19→18:43)
[2017-03-25] MEDS: ALBUTEROL SO4 2.5/IPRATROPIUM 0.5 INH SOL 3 ML VIAL.NEB. NEB SCH ×4 (06:26→23:04)
[2017-03-25 08:12] LABS: BASO % 0.1 % (0-2.0); HEMATOCRIT 40.4 % (32.4-45.2); HEMOGLOBIN 13.1 GM/dL (10.7-15.3); LYMPH % 7.1 % (8-40); MCH 29.1 pg (25.7-33.7); MCHC 32.3 g/dl (32.0-36.0); MEAN CELL VOLUME 89.9 fl (80-96); MEAN PLT VOLUME 10.3 fl (7.5-11.1); MONO % 5.2 % (3.8-10.2); NEUT % 87.6 % (42.8-82.8); PLATELET COUNT 234 K/MM3 (134-434); RBC 4.49 M/mm3 (3.60-5.2); WHITE BLOOD COUNT 10.5 K/mm3 (4.0-10.0)
[2017-03-25 08:19] LABS: INR 2.73 (0.82-1.09); PROTHROMBIN TIME (PATIENT) 30.8 SEC (9.98-11.88)
[2017-03-25 08:37] LABS: ALBUMIN 3.7 g/dl (3.4-5.0); ANION GAP 8 (8-16); BLOOD UREA NITROGEN 44 mg/dL (7-18); CHLORIDE 99 mmol/L (98-107); CO2 29 mmol/L (21-32); SODIUM 136 mmol/L (136-145)
[2017-03-25 08:42] LABS: ALK PHOS 67 U/L (45-117); BILIRUBIN,TOTAL 0.5 mg/dL (0.2-1.0); CREATININE 1.5 mg/dL (0.55-1.02); SGOT/AST 13 U/L (15-37); SGPT/ALT 26 U/L (12-78); TOT PROT 6.9 g/dl (6.4-8.2)
[2017-03-25] MEDS: guaiFENesin/CODEINE 10 ML UNIT-DOSE CUPS PO PRN ×2 (09:06→23:48)
[2017-03-25 09:08] LABS: GLUCOSE,RANDOM 315 mg/dL (74-106)
[2017-03-25] MEDS: FERROUS SO4 325 MG TABLET (FP) PO SCH (10:42)
[2017-03-25] MEDS: TORSEMIDE 20 MG TABLET (FP) PO SCH (10:43)
[2017-03-25] MEDS: CHOLECALCIFEROL (VITAMIN D3) 1,000 UNIT TABLET (FP) PO SCH (10:46)
[2017-03-25] MEDS: PANTOPRAZOLE 40 MG TABLET (FP) PO SCH (10:46)
[2017-03-25] MEDS: RANOLAZINE E.R. 500 MG TABLET (FP) PO SCH ×2 (10:52→23:00)
[2017-03-25] MEDS: LEVOFLOXACIN 500 MG IVPB 500 MG/100 ML BAG IVPB SCH (10:52)
[2017-03-25] MEDS: LIDOCAINE 5% TOPICAL PATCH TP SCH (10:52)
[2017-03-25] MEDS: CITALOPRAM HYDROBROMIDE 10 MG TABLET (FP) PO SCH (10:52)
[2017-03-25] MEDS: PREGABALIN 25 MG CAPSULE PO SCH ×2 (10:52→23:00)
[2017-03-25] MEDS: TOPIRAMATE 100 MG TABLET PO SCH ×2 (10:55→23:00)
[2017-03-25] MEDS: VERAPAMIL HCL 240 MG E.R. TABLET (FP) PO SCH (10:55)
--- NOTE | 2017-03-25 11:32 | PN ---
Progress Note, Physician History of Present Illness: INTERMITTENT COUGH AND SOB - Current Medication List Current Medications: Active Medications Acetaminophen (Tylenol -) 650 mg PO Q6H PRN PRN Reason: FEVER OR PAIN Albuterol Sulfate (Ventolin 0.083% Nebulizer Soln -) 1 amp NEB Q1H PRN PRN Reason: SHORT OF BREATH/WHEEZING Last Admin: 03/24/17 01:47 Dose: 1 amp Albuterol/Ipratropium (Duoneb -) 1 amp NEB QIDR [facility] Last Admin: 03/25/17 06:26 Dose: 1 amp Artificial Tears (Artificial Tears) 1 drop OU BID PRN PRN Reason: PRN DRY EYES Last Admin: 03/24/17 10:26 Dose: 1 drop Budesonide (Pulmicort 0.25 Mg Nebulizer -) 1 amp NEB BID [facility] Last Admin: 03/24/17 22:15 Dose: 1 amp Bupropion HCl (Wellbutrin Xl -) 300 mg PO DAILY [facility] Last Admin: 03/25/17 10:43 Dose: 300 mg Carbidopa/Levodopa (Sinemet 25/100 -) 1 each PO HS [facility] Last Admin: 03/24/17 22:47 Dose: 1 each Cholecalciferol (Vitamin D3 -) 1,000 unit PO DAILY [facility] Last Admin: 03/25/17 10:46 Dose: 1,000 unit Citalopram Hydrobromide (Celexa -) 10 mg PO DAILY [facility] Last Admin: 03/25/17 10:52 Dose: 10 mg Digoxin (Lanoxin -) 0.125 mg PO DAILY [facility] Last Admin: 03/24/17 10:27 Dose: 0.125 mg Erythromycin (Erythromycin 0.5% Eye Ointment) 1 applic OU DAILY [facility] Last Admin: 03/24/17 11:55 Dose: Not Given Ferrous Sulfate (Feosol -) 325 mg PO DAILY [facility] Last Admin: 03/25/17 10:42 Dose: 325 mg Guaifenesin/Codeine Phosphate (Robitussin Ac -) 10 ml PO Q8H PRN PRN Reason: COUGH Last Admin: 03/25/17 09:06 Dose: 10 ml Levofloxacin (Levaquin 500 Mg Premixed Ivpb -) 500 mg in 100 mls @ 100 mls/hr IVPB DAILY [facility] Last Admin: 03/25/17 10:52 Dose: 100 mls/hr Insulin Aspart (Novolog Vial Sliding Scale -) 1 vial SQ TIDAC [facility] PRN Reason: Protocol Last Admin: 03/25/17 11:12 Dose: 8 unit Insulin Detemir (Levemir Vial) 34 units SQ [facility] Last Admin: 03/24/17 22:45 Dose: 34 unit Lidocaine (Lidoderm Patch -) 1 patch TP DAILY [facility] Last Admin: 03/25/17 10:52 Dose: 1 patch Methylprednisolone Sodium Succinate (Solu-Medrol -) 40 mg IVPUSH Q6H-IV [facility] Last Admin: 03/25/17 09:06 Dose: 40 mg Miscellaneous (Lidoderm Patch Removal) 1 each MC DAILY@2200 [facility] Last Admin: 03/24/17 22:46 Dose: 1 each Montelukast Sodium (Singulair -) 10 mg PO [facility] Last Admin: 03/24/17 22:59 Dose: 10 mg Non-Formulary Medication (Ketotifen Fumarate [Eye Itch Relief]) 1 drop OU BID [facility] Last Admin: 03/24/17 22:45 Dose: 1 drop Pantoprazole Sodium (Protonix -) 40 mg PO DAILY [facility] Last Admin: 03/25/17 10:46 Dose: 40 mg Polyethylene Glycol (Miralax (For Daily Use) -) 17 gm PO DAILY [facility] Last Admin: 03/24/17 10:37 Dose: Not Given Pramipexole Dihydrochloride (Mirapex -) 1.5 mg PO HS [facility] Last Admin: 03/24/17 22:46 Dose: 1.5 mg Pregabalin (Lyrica -) 25 mg PO BID [facility] Last Admin: 03/25/17 10:52 Dose: 25 mg Ranolazine (Ranexa -) 500 mg PO BID [facility] Last Admin: 03/25/17 10:52 Dose: 500 mg Senna (Senna -) 2 tab PO [facility] Last Admin: 03/24/17 22:47 Dose: 2 tab Topiramate (Topamax -) 150 mg PO BID [facility] Last Admin: 03/25/17 10:55 Dose: 150 mg Torsemide (Demadex -) 40 mg PO DAILY [facility] Last Admin: 03/25/17 10:43 Dose: 40 mg Verapamil HCl (Calan Sr -) 240 mg PO DAILY [facility] Last Admin: 03/25/17 10:55 Dose: 240 mg Warfarin Sodium 10 mg/ (Warfarin Sodium 2 mg) 12 mg PO DAILY@1800 [facility] Last Admin: 03/24/17 17:44 Dose: 12 mg - Objective Vital Signs: Vital Signs Temperature 97.8 F 03/25/17 05:42 Pulse Rate 57 L 03/25/17 05:42 Respiratory Rate 20 03/25/17 05:42 Blood Pressure 145/67 03/25/17 05:42 O2 Sat by Pulse Oximetry (%) 95 03/25/17 07:00 Cardiovascular: Yes: S1, S2 Respiratory: Yes: Diminished, Rales, Rhonchi Gastrointestinal: Yes: Normal Bowel Sounds, Soft Labs: CBC, BMP 03/25/17 06:30 03/25/17 06:30 INR, PTT INR 2.73 (0.82-1.09) H 03/25/17 06:30 Assessment/Plan - Problems (1) Asthma exacerbation in COPD Assessment/Plan: -Pulmonary consult -IV steroid -Neb tx -BIPAP -seen by ID- ordered IV Levaquin -CT OF CHEST Code(s): J44.1 - CHRONIC OBSTRUCTIVE PULMONARY DISEASE W (ACUTE) EXACERBATION; J45.901 - UNSPECIFIED ASTHMA WITH (ACUTE) EXACERBATION (2) CAD (coronary artery disease) Assessment/Plan: -cardiology consult -not on statin due to intolerance -already on AC-warfarin, no Aspirin -repeat echo results pending- echo 07/2015 with normal [facility] mvr function -on CCB Code(s): I25.10 - ATHSCL HEART DISEASE OF [place] CORONARY ARTERY W/O ANG PCTRS (3) CHF (congestive heart failure) Assessment/Plan: -BNP negatve for any fluid overload, -CXR negative -on Torsemide 40 mg po daily Code(s): I50.9 - HEART FAILURE, UNSPECIFIED (4) H/O prosthetic mitral valve Assessment/Plan: -On warfarin, takes 14 mg once a week and 12 mg all other days of the week at home -INR goal 2.5-3.5 (5) IDDM (insulin dependent diabetes mellitus) Assessment/Plan: Levemir and insulin sliding scale -diabetic diet -RD consult -last A1c 6.8 in 12/2016 Code(s): E11.9 - TYPE 2 DIABETES MELLITUS WITHOUT COMPLICATIONS; Z79.4 - GROUP HOME (CURRENT) USE OF INSULIN (6) Leukocytosis Assessment/Plan: secondary to IV steroids Code(s): D72.829 - ELEVATED WHITE BLOOD CELL COUNT, UNSPECIFIED
[2017-03-25] MEDS: BUDESONIDE 0.25 MG/2ML INH SUSP VIAL NEB SCH ×2 (12:00→22:04)
--- NOTE | 2017-03-25 14:11 | PN ---
Progress Note, Physician History of Present Illness: PULMONARY ALERT,FEELING BETTER LESS DYSPNEIC,+COUGH - Current Medication List Current Medications: Active Medications Acetaminophen (Tylenol -) 650 mg PO Q6H PRN PRN Reason: FEVER OR PAIN Albuterol Sulfate (Ventolin 0.083% Nebulizer Soln -) 1 amp NEB Q1H PRN PRN Reason: SHORT OF BREATH/WHEEZING Last Admin: 03/24/17 01:47 Dose: 1 amp Albuterol/Ipratropium (Duoneb -) 1 amp NEB [facility]IDR [facility] Last Admin: 03/25/17 12:00 Dose: 1 amp Artificial Tears (Artificial Tears) 1 drop OU BID PRN PRN Reason: PRN DRY EYES Last Admin: 03/24/17 10:26 Dose: 1 drop Budesonide (Pulmicort 0.25 Mg Nebulizer -) 1 amp NEB BID [facility] Last Admin: 03/25/17 12:00 Dose: Not Given Bupropion HCl (Wellbutrin Xl -) 300 mg PO DAILY [facility] Last Admin: 03/25/17 10:43 Dose: 300 mg Carbidopa/Levodopa (Sinemet 25/100 -) 1 each PO HS [facility] Last Admin: 03/24/17 22:47 Dose: 1 each Cholecalciferol (Vitamin D3 -) 1,000 unit PO DAILY [facility] Last Admin: 03/25/17 10:46 Dose: 1,000 unit Citalopram Hydrobromide (Celexa -) 10 mg PO DAILY [facility] Last Admin: 03/25/17 10:52 Dose: 10 mg Digoxin (Lanoxin -) 0.125 mg PO DAILY [facility] Last Admin: 03/24/17 10:27 Dose: 0.125 mg Erythromycin (Erythromycin 0.5% Eye Ointment) 1 applic OU DAILY [facility] Last Admin: 03/24/17 11:55 Dose: Not Given Ferrous Sulfate (Feosol -) 325 mg PO DAILY [facility] Last Admin: 03/25/17 10:42 Dose: 325 mg Guaifenesin/Codeine Phosphate (Robitussin Ac -) 10 ml PO Q8H PRN PRN Reason: COUGH Last Admin: 03/25/17 09:06 Dose: 10 ml Levofloxacin (Levaquin 500 Mg Premixed Ivpb -) 500 mg in 100 mls @ 100 mls/hr IVPB DAILY [facility] Last Admin: 03/25/17 10:52 Dose: 100 mls/hr Insulin Aspart (Novolog Vial Sliding Scale -) 1 vial SQ TIDAC [facility] PRN Reason: Protocol Last Admin: 03/25/17 11:12 Dose: 8 unit Insulin Detemir (Levemir Vial) 34 units SQ [facility] Last Admin: 03/24/17 22:45 Dose: 34 unit Lidocaine (Lidoderm Patch -) 1 patch TP DAILY [facility] Last Admin: 03/25/17 10:52 Dose: 1 patch Methylprednisolone Sodium Succinate (Solu-Medrol -) 40 mg IVPUSH Q6H-IV [facility] Last Admin: 03/25/17 09:06 Dose: 40 mg Miscellaneous (Lidoderm Patch Removal) 1 each MC DAILY@2200 [facility] Last Admin: 03/24/17 22:46 Dose: 1 each Montelukast Sodium (Singulair -) 10 mg PO [facility] Last Admin: 03/24/17 22:59 Dose: 10 mg Non-Formulary Medication (Ketotifen Fumarate [Eye Itch Relief]) 1 drop OU BID [facility] Last Admin: 03/24/17 22:45 Dose: 1 drop Pantoprazole Sodium (Protonix -) 40 mg PO DAILY [facility] Last Admin: 03/25/17 10:46 Dose: 40 mg Polyethylene Glycol (Miralax (For Daily Use) -) 17 gm PO DAILY [facility] Last Admin: 03/24/17 10:37 Dose: Not Given Pramipexole Dihydrochloride (Mirapex -) 1.5 mg PO [facility] Last Admin: 03/24/17 22:46 Dose: 1.5 mg Pregabalin (Lyrica -) 25 mg PO BID [facility] Last Admin: 03/25/17 10:52 Dose: 25 mg Ranolazine (Ranexa -) 500 mg PO BID [facility] Last Admin: 03/25/17 10:52 Dose: 500 mg Senna (Senna -) 2 tab PO [facility] Last Admin: 03/24/17 22:47 Dose: 2 tab Topiramate (Topamax -) 150 mg PO BID [facility] Last Admin: 03/25/17 10:55 Dose: 150 mg Torsemide (Demadex -) 40 mg PO DAILY [facility] Last Admin: 03/25/17 10:43 Dose: 40 mg Verapamil HCl (Calan Sr -) 240 mg PO DAILY [facility] Last Admin: 03/25/17 10:55 Dose: 240 mg Warfarin Sodium 10 mg/ (Warfarin Sodium 2 mg) 12 mg PO DAILY@1800 [facility] Last Admin: 03/24/17 17:44 Dose: 12 mg - Objective Vital Signs: Vital Signs Temperature 98.1 F 03/25/17 10:04 Pulse Rate 61 03/25/17 10:04 Respiratory Rate 18 03/25/17 10:04 Blood Pressure 141/63 03/25/17 10:04 O2 Sat by Pulse Oximetry (%) 95 03/25/17 07:00 Constitutional: Yes: Well Nourished, Calm Eyes: Yes: WNL HENT: Yes: WNL Neck: Yes: WNL Cardiovascular: Yes: Pulse Irregular, S1, S2 Respiratory: Yes: Wheezes (SCATTERED ABDIEL WHEEZES) Gastrointestinal: Yes: Normal Bowel Sounds, Soft Edema: Yes Labs: CBC, BMP 03/25/17 06:30 03/25/17 06:30 INR, PTT INR 2.73 (0.82-1.09) H 03/25/17 06:30 - ....Imaging Cat Scan: Report Reviewed, Image Reviewed Assessment/Plan (1) COPD (chronic obstructive pulmonary disease) Code(s): J44.9 - CHRONIC OBSTRUCTIVE PULMONARY DISEASE, UNSPECIFIED (2) Afib Code(s): I48.91 - UNSPECIFIED ATRIAL FIBRILLATION Qualifiers: Atrial fibrillation type: paroxysmal Qualified Code(s): I48.0 - Paroxysmal atrial fibrillation (3) Anticoagulated Code(s): Z79.01 - [employer] (CURRENT) USE OF ANTICOAGULANTS (4) Asthma exacerbation in COPD Code(s): J44.1 - CHRONIC OBSTRUCTIVE PULMONARY DISEASE W (ACUTE) EXACERBATION; J45.901 - UNSPECIFIED ASTHMA WITH (ACUTE) EXACERBATION (5) CAD (coronary artery disease) Code(s): I25.10 - ATHSCL HEART DISEASE OF [place] CORONARY ARTERY W/O ANG PCTRS (6) CHF (congestive heart failure) Code(s): I50.9 - HEART FAILURE, UNSPECIFIED 7 SLE Assessment/Plan O2/NIPPV HS PRN BRONCHODILATORS IV STEROIDS SAME DOSE ANTIBIOTICS CONTINUE PT ANTI-TUSSIVES DR IVERSON
[2017-03-25] MEDS: ERYTHROMYCIN 0.5% OPHTHALMIC OINTMENT 3.5 GM TUBE OU SCH (15:13)
[2017-03-25] MEDS: KETOTIFEN FUMARATE OU SCH ×2 (15:24→23:00)
[2017-03-25] MEDS: POLYETHYLENE GLYCOL 3350 119 GM BTL PO SCH (15:24)
[2017-03-25] MEDS: DIGOXIN 0.125 MG TABLET (FP) PO SCH (15:25)
[2017-03-25] MEDS ORDERED: WARFARIN NA 2 MG TABLET (UD) ONE (18:11)
[2017-03-25] MEDS ORDERED: WARFARIN NA 10 MG TABLET (FP) ONE (18:12)
[2017-03-25] MEDS: WARFARIN NA 10 MG, WARFARIN NA 2 MG PO SCH (18:43)
[2017-03-25] MEDS: INSULIN DETEMIR 100 UNITS/ML MDV SQ SCH (23:00)
[2017-03-25] MEDS: PRAMIPEXOLE DIHYDROCHLORIDE 1.5 MG TABLET PO SCH (23:00)
[2017-03-25] MEDS: MONTELUKAST NA 10 MG TABLET PO SCH (23:00)
[2017-03-25] MEDS: CARBIDOPA/LEVODOPA 25/100 TABLET (FP) PO SCH (23:00)
[2017-03-25] MEDS: SENNOSIDES 8.6MG TABLET (FP) PO SCH (23:00)
[2017-03-25] MEDS: LIDOCAINE PATCH REMOVAL MC SCH (23:17)
[2017-03-26] MEDS: methylPREDNISolone NA SUCC 40 MG/1 ML VIAL IVPUSH SCH ×4 (03:04→22:38)
[2017-03-26] MEDS: INSULIN SLIDING SCALE (NOVOLOG) 1 VIAL SQ SCH ×3 (06:09→17:25)
[2017-03-26] MEDS: ALBUTEROL SO4 2.5/IPRATROPIUM 0.5 INH SOL 3 ML VIAL.NEB. NEB SCH ×3 (06:27→17:17)
[2017-03-26] MEDS ORDERED: PT OWN MED DRAWER 7, Y5N ONE ×2 (06:33→22:33)
[2017-03-26] MEDS ORDERED: INSULIN DETEMIR 100 UNITS/ML MDV SQ ONE (06:34)
[2017-03-26 08:27] LABS: HEMATOCRIT 40.5 % (32.4-45.2); MCH 28.7 pg (25.7-33.7); MEAN PLT VOLUME 10.2 fl (7.5-11.1); PLATELET COUNT 230 K/MM3 (134-434); RDW 16.6 % (11.6-15.6); WHITE BLOOD COUNT 13.4 K/mm3 (4.0-10.0)
[2017-03-26] MEDS: DIGOXIN 0.125 MG TABLET (FP) PO SCH (10:31)
[2017-03-26] MEDS: RANOLAZINE E.R. 500 MG TABLET (FP) PO SCH ×2 (10:31→22:27)
[2017-03-26] MEDS: PREGABALIN 25 MG CAPSULE PO SCH ×2 (10:31→22:27)
[2017-03-26] MEDS: TORSEMIDE 20 MG TABLET (FP) PO SCH (10:31)
[2017-03-26] MEDS: PANTOPRAZOLE 40 MG TABLET (FP) PO SCH (10:32)
[2017-03-26] MEDS: FERROUS SO4 325 MG TABLET (FP) PO SCH (10:32)
[2017-03-26] MEDS: CHOLECALCIFEROL (VITAMIN D3) 1,000 UNIT TABLET (FP) PO SCH (10:32)
[2017-03-26] MEDS: guaiFENesin/CODEINE 10 ML UNIT-DOSE CUPS PO PRN (10:32)
[2017-03-26] MEDS: VERAPAMIL HCL 240 MG E.R. TABLET (FP) PO SCH (10:34)
[2017-03-26] MEDS: TOPIRAMATE 100 MG TABLET PO SCH ×2 (10:34→22:37)
[2017-03-26] MEDS: ERYTHROMYCIN 0.5% OPHTHALMIC OINTMENT 3.5 GM TUBE OU SCH (10:35)
[2017-03-26] MEDS: CITALOPRAM HYDROBROMIDE 10 MG TABLET (FP) PO SCH (10:36)
[2017-03-26] MEDS: KETOTIFEN FUMARATE OU SCH ×2 (10:36→22:38)
[2017-03-26] MEDS: LEVOFLOXACIN 500 MG IVPB 500 MG/100 ML BAG IVPB SCH (10:37)
[2017-03-26] MEDS: LIDOCAINE 5% TOPICAL PATCH TP SCH (10:37)
[2017-03-26] MEDS: BUDESONIDE 0.25 MG/2ML INH SUSP VIAL NEB SCH ×2 (10:50→22:45)
--- NOTE | 2017-03-26 11:59 | PN ---
Progress Note (short form) - Note Progress Note: PULMONARY Does not feel significant improvement from admission. Still with shortness of breath, cough and wheezing. Last Vital Signs Temp Pulse Resp BP Pulse Ox 98.1 F 71 20 134/55 94 L 03/26/17 07:13 03/26/17 10:31 03/26/17 07:13 03/26/17 07:13 03/26/17 07:00 Gen: mildly tachypneic with speaking Heart: RRR Lung: poor air movement, scattered rhonchi, wheezes Abd: soft, nontender Ext: no edema CBC, BMP 03/26/17 07:00 03/25/17 06:30 Active Medications Acetaminophen (Tylenol -) 650 mg PO Q6H PRN PRN Reason: FEVER OR PAIN Albuterol Sulfate (Ventolin 0.083% Nebulizer Soln -) 1 amp NEB Q1H PRN PRN Reason: SHORT OF BREATH/WHEEZING Last Admin: 03/24/17 01:47 Dose: 1 amp Albuterol/Ipratropium (Duoneb -) 1 amp NEB QIDR [facility] Last Admin: 03/26/17 06:27 Dose: 1 amp Artificial Tears (Artificial Tears) 1 drop OU BID PRN PRN Reason: PRN DRY EYES Last Admin: 03/24/17 10:26 Dose: 1 drop Budesonide (Pulmicort 0.25 Mg Nebulizer -) 1 amp NEB BID [facility] Last Admin: 03/25/17 22:04 Dose: 1 amp Bupropion HCl (Wellbutrin Xl -) 300 mg PO DAILY [facility] Last Admin: 03/26/17 10:33 Dose: 300 mg Carbidopa/Levodopa (Sinemet 25/100 -) 1 each PO HS [facility] Last Admin: 03/25/17 23:00 Dose: 1 each Cholecalciferol (Vitamin D3 -) 1,000 unit PO DAILY [facility] Last Admin: 03/26/17 10:32 Dose: 1,000 unit Citalopram Hydrobromide (Celexa -) 10 mg PO DAILY [facility] Last Admin: 03/26/17 10:36 Dose: 10 mg Digoxin (Lanoxin -) 0.125 mg PO DAILY [facility] Last Admin: 03/26/17 10:31 Dose: 0.125 mg Erythromycin (Erythromycin 0.5% Eye Ointment) 1 applic OU DAILY [facility] Last Admin: 03/26/17 10:35 Dose: 1 applic Ferrous Sulfate (Feosol -) 325 mg PO DAILY [facility] Last Admin: 03/26/17 10:32 Dose: 325 mg Guaifenesin/Codeine Phosphate (Robitussin Ac -) 10 ml PO Q8H PRN PRN Reason: COUGH Last Admin: 03/26/17 10:32 Dose: 10 ml Levofloxacin (Levaquin 500 Mg Premixed Ivpb -) 500 mg in 100 mls @ 100 mls/hr IVPB DAILY [facility] Last Admin: 03/26/17 10:37 Dose: 100 mls/hr Insulin Aspart (Novolog Vial Sliding Scale -) 1 vial SQ TIDAC [facility] PRN Reason: Protocol Last Admin: 03/26/17 06:09 Dose: 4 unit Insulin Detemir (Levemir Vial) 34 units SQ [facility] Last Admin: 03/25/17 23:00 Dose: 34 unit Lidocaine (Lidoderm Patch -) 1 patch TP DAILY [facility] Last Admin: 03/26/17 10:37 Dose: 1 patch Methylprednisolone Sodium Succinate (Solu-Medrol -) 40 mg IVPUSH Q6H-IV [facility] Last Admin: 03/26/17 10:30 Dose: 40 mg Miscellaneous (Lidoderm Patch Removal) 1 each MC DAILY@2200 [facility] Last Admin: 03/25/17 23:17 Dose: 1 each Montelukast Sodium (Singulair -) 10 mg PO HS [facility] Last Admin: 03/25/17 23:00 Dose: 10 mg Non-Formulary Medication (Ketotifen Fumarate [Eye Itch Relief]) 1 drop OU BID [facility] Last Admin: 03/26/17 10:36 Dose: 1 drop Pantoprazole Sodium (Protonix -) 40 mg PO DAILY [facility] Last Admin: 03/26/17 10:32 Dose: 40 mg Polyethylene Glycol (Miralax (For Daily Use) -) 17 gm PO DAILY [facility] Last Admin: 03/25/17 15:24 Dose: 17 grams Pramipexole Dihydrochloride (Mirapex -) 1.5 mg PO [facility] Last Admin: 03/25/17 23:00 Dose: 1.5 mg Pregabalin (Lyrica -) 25 mg PO BID [facility] Last Admin: 03/26/17 10:31 Dose: 25 mg Ranolazine (Ranexa -) 500 mg PO BID [facility] Last Admin: 03/26/17 10:31 Dose: 500 mg Senna (Senna -) 2 tab PO HS [facility] Last Admin: 03/25/17 23:00 Dose: 2 tab Topiramate (Topamax -) 150 mg PO BID [facility] Last Admin: 03/26/17 10:34 Dose: 150 mg Torsemide (Demadex -) 40 mg PO DAILY [facility] Last Admin: 03/26/17 10:31 Dose: 40 mg Verapamil HCl (Calan Sr -) 240 mg PO DAILY [facility] Last Admin: 03/26/17 10:34 Dose: 240 mg Warfarin Sodium 10 mg/ (Warfarin Sodium 2 mg) 12 mg PO DAILY@1800 [facility] Last Admin: 03/25/17 18:43 Dose: 12 mg A/P Acute COPD Exacerbation Atrial Fibrillation CAD Lupus CHF - will increase medrol to 60mg q6h - inhaled bronchodilators standing and PRN - O2 to keep SpO2 >90% - empiric antibiotics - rate controlled - continue anticoagulation
--- NOTE | 2017-03-26 12:06 | PN ---
Progress Note, Physician Chief Complaint: cough/sob History of Present Illness: still with cough, very thick phlegm. sob still as well. pleuritic cp unchanged no leg swelling, palpitations - Current Medication List Current Medications: Active Medications Acetaminophen (Tylenol -) 650 mg PO Q6H PRN PRN Reason: FEVER OR PAIN Albuterol Sulfate (Ventolin 0.083% Nebulizer Soln -) 1 amp NEB Q1H PRN PRN Reason: SHORT OF BREATH/WHEEZING Last Admin: 03/24/17 01:47 Dose: 1 amp Albuterol/Ipratropium (Duoneb -) 1 amp NEB QIDR [facility] Last Admin: 03/26/17 06:27 Dose: 1 amp Artificial Tears (Artificial Tears) 1 drop OU BID PRN PRN Reason: PRN DRY EYES Last Admin: 03/24/17 10:26 Dose: 1 drop Budesonide (Pulmicort 0.25 Mg Nebulizer -) 1 amp NEB BID [facility] Last Admin: 03/25/17 22:04 Dose: 1 amp Bupropion HCl (Wellbutrin Xl -) 300 mg PO DAILY [facility] Last Admin: 03/26/17 10:33 Dose: 300 mg Carbidopa/Levodopa (Sinemet 25/100 -) 1 each PO HS [facility] Last Admin: 03/25/17 23:00 Dose: 1 each Cholecalciferol (Vitamin D3 -) 1,000 unit PO DAILY [facility] Last Admin: 03/26/17 10:32 Dose: 1,000 unit Citalopram Hydrobromide (Celexa -) 10 mg PO DAILY [facility] Last Admin: 03/26/17 10:36 Dose: 10 mg Digoxin (Lanoxin -) 0.125 mg PO DAILY [facility] Last Admin: 03/26/17 10:31 Dose: 0.125 mg Erythromycin (Erythromycin 0.5% Eye Ointment) 1 applic OU DAILY [facility] Last Admin: 03/26/17 10:35 Dose: 1 applic Ferrous Sulfate (Feosol -) 325 mg PO DAILY [facility] Last Admin: 03/26/17 10:32 Dose: 325 mg Guaifenesin/Codeine Phosphate (Robitussin Ac -) 10 ml PO Q8H PRN PRN Reason: COUGH Last Admin: 03/26/17 10:32 Dose: 10 ml Levofloxacin (Levaquin 500 Mg Premixed Ivpb -) 500 mg in 100 mls @ 100 mls/hr IVPB DAILY [facility] Last Admin: 03/26/17 10:37 Dose: 100 mls/hr Insulin Aspart (Novolog Vial Sliding Scale -) 1 vial SQ TIDAC [facility] PRN Reason: Protocol Last Admin: 03/26/17 06:09 Dose: 4 unit Insulin Detemir (Levemir Vial) 34 units SQ HS [facility] Last Admin: 03/25/17 23:00 Dose: 34 unit Lidocaine (Lidoderm Patch -) 1 patch TP DAILY [facility] Last Admin: 03/26/17 10:37 Dose: 1 patch Methylprednisolone Sodium Succinate (Solu-Medrol -) 60 mg IVPUSH Q6H-IV [facility] Miscellaneous (Lidoderm Patch Removal) 1 each MC DAILY@2200 [facility] Last Admin: 03/25/17 23:17 Dose: 1 each Montelukast Sodium (Singulair -) 10 mg PO HS [facility] Last Admin: 03/25/17 23:00 Dose: 10 mg Non-Formulary Medication (Ketotifen Fumarate [Eye Itch Relief]) 1 drop OU BID [facility] Last Admin: 03/26/17 10:36 Dose: 1 drop Pantoprazole Sodium (Protonix -) 40 mg PO DAILY [facility] Last Admin: 03/26/17 10:32 Dose: 40 mg Polyethylene Glycol (Miralax (For Daily Use) -) 17 gm PO DAILY [facility] Last Admin: 03/25/17 15:24 Dose: 17 grams Pramipexole Dihydrochloride (Mirapex -) 1.5 mg PO HS [facility] Last Admin: 03/25/17 23:00 Dose: 1.5 mg Pregabalin (Lyrica -) 25 mg PO BID [facility] Last Admin: 03/26/17 10:31 Dose: 25 mg Ranolazine (Ranexa -) 500 mg PO BID [facility] Last Admin: 03/26/17 10:31 Dose: 500 mg Senna (Senna -) 2 tab PO [facility] Last Admin: 03/25/17 23:00 Dose: 2 tab Topiramate (Topamax -) 150 mg PO BID [facility] Last Admin: 03/26/17 10:34 Dose: 150 mg Torsemide (Demadex -) 40 mg PO DAILY [facility] Last Admin: 03/26/17 10:31 Dose: 40 mg Verapamil HCl (Calan Sr -) 240 mg PO DAILY [facility] Last Admin: 03/26/17 10:34 Dose: 240 mg Warfarin Sodium 10 mg/ (Warfarin Sodium 2 mg) 12 mg PO DAILY@1800 [facility] Last Admin: 03/25/17 18:43 Dose: 12 mg - Objective Vital Signs: Vital Signs Temperature 98.1 F 03/26/17 07:13 Pulse Rate 71 03/26/17 10:31 Respiratory Rate 20 03/26/17 07:13 Blood Pressure 134/55 03/26/17 07:13 O2 Sat by Pulse Oximetry (%) 94 L 03/26/17 07:00 Constitutional: Yes: No Distress, Calm, Obese Cardiovascular: Yes: Regular Rate and Rhythm ([facility] S2 click), S1, S2. No: Gallop, Murmur Respiratory: Yes: Regular, CTA Bilaterally. No: Accessory Muscle Use, Rales, Wheezes Extremities: No: Cold Edema: No Neurological: Yes: Alert, Oriented Psychiatric: No: Agitated Labs: CBC, BMP 03/26/17 07:00 03/25/17 06:30 INR, PTT INR 2.73 (0.82-1.09) H 03/25/17 06:30 Assessment/Plan EKG: SR. RSR'/incomplete RBBB. non-specific t wave abnormalities, similar to priors. (QTc 412) cxr: no acute pulmonary disease Echo 04/05: nl LV/EF; nl RV; well-seated [facility] MVR. mild Echo 07/2015: tds; nl lv/rv, mild lae, nl [facility] mvr mibi 12/2013: no ischemia a/p: 66 with h/o COPD on home , FIGUEROA (on cpap at home), CAD (s/p single vessel CABG 2006 with RUSSELL to OM and ROSALINA x2 to LAD 12/2011; last cath 06/2014 showed patent RUSSELL, patent LAD stents, no sig residual dz except for 80-90% OM that is bypassed), [facility] mvr (st [facility], 2006, on coumadin), anemia, TIA, diastolic CHF, DM, HTN, pafib, antiphospholipid syndrome (on coumadin), fibromyalgia, migraines, chronic atypical cp, obesity, LBP here with knee pain/ hemarthrosis. cough/sob/subjective fevers/tracheobronchitis +/- a.e. copd: - on home O2 for copd history - acute process being managed by pulm and ID, cultures and flu swab pending [facility] MVR: -also with antiphospholipid syndrome --> high risk for thrombosis of valve. on AC w/ coumadin target INR 2.5 to 3.5--continue coumadin per current dosing. - echo 07/2015 with normal [facility] mvr function cad, s/p cabg, pci: - h/o chronic atypical cp. -cp msk, reproducible to palpation. normal lvef on recent echo, no concern for acs. -no bb due to copd/wheezing; on verapamil instead -not on statin due to prior intolerance -on ranexa as outpt for possible small vessel dz symptoms--will cont same and defer to outpt f/u with her cardio in our office (on 500 bid which is max rec'd dose in combo with verapamil--QTc ok on ekg here--see report) -on ac, no asa chronic diastolic chf - states she has been on torsemide 60 qd at home, dose incr'd by dr green when she felt fluid overloaded including in abdomen. - only receiving 40mg daily dose here. CXR without significant congestion. No sig volume overload on exam. likely euvolemic. - creat rising slightly--cont torsemide 40 as doing, monitor renal fxn - outpt f/u with dr green 2-4 wks after discharge HTN: - reasonable control on current meds - cont same, observe bp trend pafib with h/o tia: -rare episodes in past -remains in sr here based on initial ekg and exam -continue verapamil and dig. dig level okay/low here. -AC as disc'd above
--- NOTE | 2017-03-26 13:39 | PN ---
Progress Note, Physician Chief Complaint: coughing tacypneic when she speaks on oxygen steroids increased - Current Medication List Current Medications: Active Medications Acetaminophen (Tylenol -) 650 mg PO Q6H PRN PRN Reason: FEVER OR PAIN Albuterol Sulfate (Ventolin 0.083% Nebulizer Soln -) 1 amp NEB Q1H PRN PRN Reason: SHORT OF BREATH/WHEEZING Last Admin: 03/24/17 01:47 Dose: 1 amp Albuterol/Ipratropium (Duoneb -) 1 amp NEB QIDR [facility] Last Admin: 03/26/17 12:55 Dose: 1 amp Artificial Tears (Artificial Tears) 1 drop OU BID PRN PRN Reason: PRN DRY EYES Last Admin: 03/24/17 10:26 Dose: 1 drop Budesonide (Pulmicort 0.25 Mg Nebulizer -) 1 amp NEB BID [facility] Last Admin: 03/26/17 10:50 Dose: 1 amp Bupropion HCl (Wellbutrin Xl -) 300 mg PO DAILY [facility] Last Admin: 03/26/17 10:33 Dose: 300 mg Carbidopa/Levodopa (Sinemet 25/100 -) 1 each PO HS [facility] Last Admin: 03/25/17 23:00 Dose: 1 each Cholecalciferol (Vitamin D3 -) 1,000 unit PO DAILY [facility] Last Admin: 03/26/17 10:32 Dose: 1,000 unit Citalopram Hydrobromide (Celexa -) 10 mg PO DAILY [facility] Last Admin: 03/26/17 10:36 Dose: 10 mg Digoxin (Lanoxin -) 0.125 mg PO DAILY [facility] Last Admin: 03/26/17 10:31 Dose: 0.125 mg Erythromycin (Erythromycin 0.5% Eye Ointment) 1 applic OU DAILY [facility] Last Admin: 03/26/17 10:35 Dose: 1 applic Ferrous Sulfate (Feosol -) 325 mg PO DAILY [facility] Last Admin: 03/26/17 10:32 Dose: 325 mg Guaifenesin/Codeine Phosphate (Robitussin Ac -) 10 ml PO Q8H PRN PRN Reason: COUGH Last Admin: 03/26/17 10:32 Dose: 10 ml Levofloxacin (Levaquin 500 Mg Premixed Ivpb -) 500 mg in 100 mls @ 100 mls/hr IVPB DAILY [facility] Last Admin: 03/26/17 10:37 Dose: 100 mls/hr Insulin Aspart (Novolog Vial Sliding Scale -) 1 vial SQ TIDAC [facility] PRN Reason: Protocol Last Admin: 03/26/17 12:18 Dose: 4 unit Insulin Detemir (Levemir Vial) 34 units SQ HS [facility] Last Admin: 03/25/17 23:00 Dose: 34 unit Lidocaine (Lidoderm Patch -) 1 patch TP DAILY [facility] Last Admin: 03/26/17 10:37 Dose: 1 patch Methylprednisolone Sodium Succinate (Solu-Medrol -) 60 mg IVPUSH Q6H-IV [facility] Miscellaneous (Lidoderm Patch Removal) 1 each MC DAILY@2200 [facility] Last Admin: 03/25/17 23:17 Dose: 1 each Montelukast Sodium (Singulair -) 10 mg PO HS [facility] Last Admin: 03/25/17 23:00 Dose: 10 mg Non-Formulary Medication (Ketotifen Fumarate [Eye Itch Relief]) 1 drop OU BID [facility] Last Admin: 03/26/17 10:36 Dose: 1 drop Pantoprazole Sodium (Protonix -) 40 mg PO DAILY [facility] Last Admin: 03/26/17 10:32 Dose: 40 mg Polyethylene Glycol (Miralax (For Daily Use) -) 17 gm PO DAILY [facility] Last Admin: 03/25/17 15:24 Dose: 17 grams Pramipexole Dihydrochloride (Mirapex -) 1.5 mg PO HS [facility] Last Admin: 03/25/17 23:00 Dose: 1.5 mg Pregabalin (Lyrica -) 25 mg PO BID [facility] Last Admin: 03/26/17 10:31 Dose: 25 mg Ranolazine (Ranexa -) 500 mg PO BID [facility] Last Admin: 03/26/17 10:31 Dose: 500 mg Senna (Senna -) [address] [facility] Last Admin: 03/25/17 23:00 Dose: 2 tab Topiramate (Topamax -) 150 mg PO BID [facility] Last Admin: 03/26/17 10:34 Dose: 150 mg Torsemide (Demadex -) 40 mg PO DAILY [facility] Last Admin: 03/26/17 10:31 Dose: 40 mg Verapamil HCl (Calan Sr -) 240 mg PO DAILY [facility] Last Admin: 03/26/17 10:34 Dose: 240 mg Warfarin Sodium 10 mg/ (Warfarin Sodium 2 mg) 12 mg PO DAILY@1800 [facility] Last Admin: 03/25/17 18:43 Dose: 12 mg - Objective Vital Signs: Vital Signs Temperature 98.1 F 03/26/17 07:13 Pulse Rate 65 03/26/17 10:50 Respiratory Rate 20 03/26/17 10:00 Blood Pressure 153/77 03/26/17 10:00 O2 Sat by Pulse Oximetry (%) 98 03/26/17 10:50 Constitutional: Yes: Calm Cardiovascular: Yes: Regular Rate and Rhythm, S1, S2 Respiratory: Yes: On Nasal O2, Rhonchi Gastrointestinal: Yes: Normal Bowel Sounds, Soft Neurological: Yes: Alert, Oriented Labs: CBC, BMP 03/26/17 07:00 03/25/17 06:30 INR, PTT INR 2.73 (0.82-1.09) H 03/25/17 06:30 Problem List - Problems (1) COPD (chronic obstructive pulmonary disease) Assessment/Plan: iv steroids dose increased nebulizer pulmicort Code(s): J44.9 - CHRONIC OBSTRUCTIVE PULMONARY DISEASE, UNSPECIFIED Qualifiers: COPD type: COPD with acute exacerbation Qualified Code(s): J44.1 - Chronic obstructive pulmonary disease with (acute) exacerbation (2) Diabetes Assessment/Plan: insulin bgm Code(s): E11.9 - TYPE 2 DIABETES MELLITUS WITHOUT COMPLICATIONS Qualifiers: Diabetes mellitus type: type 2 Diabetes mellitus complication status: with neurologic complications (3) Mitral valve replaced Assessment/Plan: couamdin INR goal 2.5-3.5 inr orderd for today and tmw Code(s): Z95.2 - PRESENCE OF PROSTHETIC HEART VALVE
[2017-03-26] MEDS ORDERED: INSULIN (NOVOLOG) ASPART 100 UNITS/ML 10ML VIAL ONE (17:53)
[2017-03-26 19:13] LABS: INR 3.73 (0.82-1.09); PROTHROMBIN TIME (PATIENT) 42.2 SEC (9.98-11.88)
[2017-03-26] MEDS: SENNOSIDES 8.6MG TABLET (FP) PO SCH (22:28)
[2017-03-26] MEDS: WARFARIN NA 10 MG, WARFARIN NA 2 MG PO SCH (22:34)
[2017-03-26] MEDS: CARBIDOPA/LEVODOPA 25/100 TABLET (FP) PO SCH (22:36)
[2017-03-26] MEDS: MONTELUKAST NA 10 MG TABLET PO SCH (22:36)
[2017-03-26] MEDS: LIDOCAINE PATCH REMOVAL MC SCH (22:38)
[2017-03-26] MEDS: INSULIN DETEMIR 100 UNITS/ML MDV SQ SCH (22:50)
[2017-03-26] MEDS: PRAMIPEXOLE DIHYDROCHLORIDE 1.5 MG TABLET PO SCH (22:55)
[2017-03-27] MEDS: methylPREDNISolone NA SUCC 40 MG/1 ML VIAL IVPUSH SCH ×4 (03:41→23:06)
[2017-03-27] MEDS: INSULIN SLIDING SCALE (NOVOLOG) 1 VIAL SQ SCH ×3 (06:33→17:54)
[2017-03-27] MEDS: ALBUTEROL SO4 2.5/IPRATROPIUM 0.5 INH SOL 3 ML VIAL.NEB. NEB SCH ×2 (06:40)
[2017-03-27 08:04] LABS: HEMATOCRIT 42.9 % (32.4-45.2); HEMOGLOBIN 13.6 GM/dL (10.7-15.3); MCH 28.5 pg (25.7-33.7); MCHC 31.8 g/dl (32.0-36.0); MEAN CELL VOLUME 89.8 fl (80-96); MEAN PLT VOLUME 10.4 fl (7.5-11.1); PLATELET COUNT 253 K/MM3 (134-434); RBC 4.77 M/mm3 (3.60-5.2); RDW 16.9 % (11.6-15.6); WHITE BLOOD COUNT 15.6 K/mm3 (4.0-10.0)
[2017-03-27 08:20] LABS: INR 3.24 (0.82-1.09); PROTHROMBIN TIME (PATIENT) 36.6 SEC (9.98-11.88)
[2017-03-27] MEDS: BUDESONIDE 0.25 MG/2ML INH SUSP VIAL NEB SCH ×2 (10:20→22:03)
[2017-03-27] MEDS ORDERED: ALBUTEROL SO4 2.5/IPRATROPIUM 0.5 INH SOL 3 ML VIAL.NEB. NEB SCH (10:23)
--- NOTE | 2017-03-27 10:47 | PN ---
Progress Note, Physician Chief Complaint: SOB, Cough History of Present Illness: NAD, complains of cough and SOB with Exertion seen by pulmonary and cardiology has antiphospholipid syndrome and mechanical mitral valve-->high risk of thrombosis, on Warfarin, INR foal is 2.5-3.5 D-Dimer negative CXR and BNP negative- no obvious volume overload - Current Medication List Current Medications: Active Medications Acetaminophen (Tylenol -) 650 mg PO Q6H PRN PRN Reason: FEVER OR PAIN Albuterol Sulfate (Ventolin 0.083% Nebulizer Soln -) 1 amp NEB Q1H PRN PRN Reason: SHORT OF BREATH/WHEEZING Last Admin: 03/24/17 01:47 Dose: 1 amp Albuterol/Ipratropium (Duoneb -) 1 amp NEB RQID [facility] Artificial Tears (Artificial Tears) 1 drop OU BID PRN PRN Reason: PRN DRY EYES Last Admin: 03/24/17 10:26 Dose: 1 drop Budesonide (Pulmicort 0.25 Mg Nebulizer -) 1 amp NEB BID [facility] Last Admin: 03/27/17 10:20 Dose: 1 amp Bupropion HCl (Wellbutrin Xl -) 300 mg PO DAILY [facility] Last Admin: 03/26/17 10:33 Dose: 300 mg Carbidopa/Levodopa (Sinemet 25/100 -) 1 each PO HS [facility] Last Admin: 03/26/17 22:36 Dose: 1 each Cholecalciferol (Vitamin D3 -) 1,000 unit PO DAILY [facility] Last Admin: 03/26/17 10:32 Dose: 1,000 unit Citalopram Hydrobromide (Celexa -) 10 mg PO DAILY [facility] Last Admin: 03/26/17 10:36 Dose: 10 mg Digoxin (Lanoxin -) 0.125 mg PO DAILY [facility] Last Admin: 03/26/17 10:31 Dose: 0.125 mg Erythromycin (Erythromycin 0.5% Eye Ointment) 1 applic OU DAILY [facility] Last Admin: 03/26/17 10:35 Dose: 1 applic Ferrous Sulfate (Feosol -) 325 mg PO DAILY [facility] Last Admin: 03/26/17 10:32 Dose: 325 mg Guaifenesin/Codeine Phosphate (Robitussin Ac -) 10 ml PO Q8H PRN PRN Reason: COUGH Last Admin: 01/08/18 10:32 Dose: 10 ml Levofloxacin (Levaquin 500 Mg Premixed Ivpb -) 500 mg in 100 mls @ 100 mls/hr IVPB DAILY [facility] Last Admin: 03/26/17 10:37 Dose: 100 mls/hr Insulin Aspart (Novolog Vial Sliding Scale -) 1 vial SQ TIDAC [facility] PRN Reason: Protocol Last Admin: 03/27/17 06:33 Dose: 6 unit Insulin Detemir (Levemir Vial) 34 units SQ [facility] Last Admin: 03/26/17 22:50 Dose: 34 unit Lidocaine (Lidoderm Patch -) 1 patch TP DAILY [facility] Last Admin: 03/26/17 10:37 Dose: 1 patch Methylprednisolone Sodium Succinate (Solu-Medrol -) 60 mg IVPUSH Q6H-IV [facility] Last Admin: 03/27/17 03:41 Dose: 60 mg Miscellaneous (Lidoderm Patch Removal) 1 each MC DAILY@2200 [facility] Last Admin: 03/26/17 22:38 Dose: 1 each Montelukast Sodium (Singulair -) 10 mg PO [facility] Last Admin: 03/26/17 22:36 Dose: 10 mg Non-Formulary Medication (Ketotifen Fumarate [Eye Itch Relief]) 1 drop OU BID [facility] Last Admin: 03/26/17 22:38 Dose: 1 drop Pantoprazole Sodium (Protonix -) 40 mg PO DAILY [facility] Last Admin: 03/26/17 10:32 Dose: 40 mg Polyethylene Glycol (Miralax (For Daily Use) -) 17 gm PO DAILY [facility] Last Admin: 03/25/17 15:24 Dose: 17 grams Pramipexole Dihydrochloride (Mirapex -) 1.5 mg PO [facility] Last Admin: 03/26/17 22:55 Dose: 1.5 mg Pregabalin (Lyrica -) 25 mg PO BID [facility] Last Admin: 03/26/17 22:27 Dose: 25 mg Ranolazine (Ranexa -) 500 mg PO BID [facility] Last Admin: 03/26/17 22:27 Dose: 500 mg Senna (Senna -) 2 tab PO [facility] Last Admin: 03/26/17 22:28 Dose: 2 tab Topiramate (Topamax -) 150 mg PO BID [facility] Last Admin: 03/26/17 22:37 Dose: 150 mg Torsemide (Demadex -) 40 mg PO DAILY [facility] Last Admin: 03/26/17 10:31 Dose: 40 mg Verapamil HCl (Calan Sr -) 240 mg PO DAILY [facility] Last Admin: 03/26/17 10:34 Dose: 240 mg Warfarin Sodium 10 mg/ (Warfarin Sodium 2 mg) 12 mg PO DAILY@1800 [facility] Last Admin: 03/26/17 22:34 Dose: Not Given - Objective Vital Signs: Vital Signs Temperature 97.5 F L 03/27/17 05:58 Pulse Rate 70 03/27/17 10:19 Respiratory Rate 18 03/27/17 05:58 Blood Pressure 144/62 03/27/17 05:58 O2 Sat by Pulse Oximetry (%) 95 03/27/17 10:19 Constitutional: Yes: Well Nourished, No Distress, Calm Cardiovascular: Yes: Regular Rate and Rhythm Respiratory: Yes: Regular Musculoskeletal: Yes: WNL Extremities: Yes: WNL Edema: No Peripheral Pulses WNL: Yes Neurological: Yes: Alert, Oriented Psychiatric: Yes: Alert, Oriented Labs: CBC, BMP 03/27/17 06:00 03/25/17 06:30 INR, PTT INR 3.24 (0.82-1.09) H 03/27/17 06:00 Problem List - Problems (1) Asthma exacerbation in COPD Code(s): J44.1 - CHRONIC OBSTRUCTIVE PULMONARY DISEASE W (ACUTE) EXACERBATION; J45.901 - UNSPECIFIED ASTHMA WITH (ACUTE) EXACERBATION (2) CAD (coronary artery disease) Code(s): I25.10 - ATHSCL HEART DISEASE OF [place] CORONARY ARTERY W/O ANG PCTRS (3) CHF (congestive heart failure) Code(s): I50.9 - HEART FAILURE, UNSPECIFIED (5) IDDM (insulin dependent diabetes mellitus) Code(s): E11.9 - TYPE 2 DIABETES MELLITUS WITHOUT COMPLICATIONS; Z79.4 - 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
[2017-03-27] MEDS ORDERED: PT OWN MED DRAWER 7, Y5N ONE ×2 (12:18→22:19)
[2017-03-27] MEDS: TORSEMIDE 20 MG TABLET (FP) PO SCH (12:27)
[2017-03-27] MEDS: PREGABALIN 25 MG CAPSULE PO SCH ×2 (12:28→23:03)
[2017-03-27] MEDS: RANOLAZINE E.R. 500 MG TABLET (FP) PO SCH ×2 (12:29→23:04)
[2017-03-27] MEDS: CITALOPRAM HYDROBROMIDE 10 MG TABLET (FP) PO SCH (12:30)
[2017-03-27] MEDS: DIGOXIN 0.125 MG TABLET (FP) PO SCH (12:30)
[2017-03-27] MEDS: LEVOFLOXACIN 500 MG IVPB 500 MG/100 ML BAG IVPB SCH (12:31)
[2017-03-27] MEDS: TOPIRAMATE 100 MG TABLET PO SCH ×2 (12:31→23:07)
[2017-03-27] MEDS: ERYTHROMYCIN 0.5% OPHTHALMIC OINTMENT 3.5 GM TUBE OU SCH (12:31)
[2017-03-27] MEDS: CHOLECALCIFEROL (VITAMIN D3) 1,000 UNIT TABLET (FP) PO SCH (12:31)
[2017-03-27] MEDS: LIDOCAINE 5% TOPICAL PATCH TP SCH (12:31)
[2017-03-27] MEDS: KETOTIFEN FUMARATE OU SCH ×2 (12:35→23:01)
[2017-03-27] MEDS: FERROUS SO4 325 MG TABLET (FP) PO SCH (12:35)
[2017-03-27] MEDS: PANTOPRAZOLE 40 MG TABLET (FP) PO SCH (12:35)
[2017-03-27] MEDS: VERAPAMIL HCL 240 MG E.R. TABLET (FP) PO SCH (12:35)
--- NOTE | 2017-03-27 12:46 | PN ---
Progress Note (short form) - Note Progress Note: Chief Complaint: cough/sob History of Present Illness: still with cough, very thick phlegm. sob still as well. pleuritic cp unchanged no leg swelling, palpitations Current Medications Acetaminophen (Tylenol -) 650 mg PO Q6H PRN PRN Reason: FEVER OR PAIN Albuterol Sulfate (Ventolin 0.083% Nebulizer Soln -) 1 amp NEB Q1H PRN PRN Reason: SHORT OF BREATH/WHEEZING Last Admin: 03/24/17 01:47 Dose: 1 amp Albuterol/Ipratropium (Duoneb -) 1 amp NEB RQID [facility] Last Admin: 03/27/17 12:02 Dose: 1 amp Artificial Tears (Artificial Tears) 1 drop OU BID PRN PRN Reason: PRN DRY EYES Last Admin: 03/24/17 10:26 Dose: 1 drop Budesonide (Pulmicort 0.25 Mg Nebulizer -) 1 amp NEB BID [facility] Last Admin: 03/27/17 10:20 Dose: 1 amp Bupropion HCl (Wellbutrin Xl -) 300 mg PO DAILY [facility] Last Admin: 03/26/17 10:33 Dose: 300 mg Carbidopa/Levodopa (Sinemet 25/100 -) 1 each PO HS [facility] Last Admin: 03/26/17 22:36 Dose: 1 each Cholecalciferol (Vitamin D3 -) 1,000 unit PO DAILY [facility] Last Admin: 03/26/17 10:32 Dose: 1,000 unit Citalopram Hydrobromide (Celexa -) 10 mg PO DAILY [facility] Last Admin: 03/26/17 10:36 Dose: 10 mg Digoxin (Lanoxin -) 0.125 mg PO DAILY [facility] Last Admin: 03/26/17 10:31 Dose: 0.125 mg Erythromycin (Erythromycin 0.5% Eye Ointment) 1 applic OU DAILY [facility] Last Admin: 03/26/17 10:35 Dose: 1 applic Ferrous Sulfate (Feosol -) 325 mg PO DAILY [facility] Last Admin: 03/26/17 10:32 Dose: 325 mg Guaifenesin/Codeine Phosphate (Robitussin Ac -) 10 ml PO Q8H PRN PRN Reason: COUGH Last Admin: 03/26/17 10:32 Dose: 10 ml Levofloxacin (Levaquin 500 Mg Premixed Ivpb -) 500 mg in 100 mls @ 100 mls/hr IVPB DAILY [facility] Last Admin: 03/26/17 10:37 Dose: 100 mls/hr Insulin Aspart (Novolog Vial Sliding Scale -) 1 vial SQ TIDAC [facility] PRN Reason: Protocol Last Admin: 03/27/17 06:33 Dose: 6 unit Insulin Detemir (Levemir Vial) 34 units SQ [facility] Last Admin: 03/26/17 22:50 Dose: 34 unit Lidocaine (Lidoderm Patch -) 1 patch TP DAILY [facility] Last Admin: 03/26/17 10:37 Dose: 1 patch Methylprednisolone Sodium Succinate (Solu-Medrol -) 60 mg IVPUSH Q6H-IV [facility] Last Admin: 03/27/17 03:41 Dose: 60 mg Miscellaneous (Lidoderm Patch Removal) 1 each MC DAILY@2200 [facility] Last Admin: 03/26/17 22:38 Dose: 1 each Montelukast Sodium (Singulair -) 10 mg PO [facility] Last Admin: 03/26/17 22:36 Dose: 10 mg Non-Formulary Medication (Ketotifen Fumarate [Eye Itch Relief]) 1 drop OU BID [facility] Last Admin: 03/26/17 22:38 Dose: 1 drop Pantoprazole Sodium (Protonix -) 40 mg PO DAILY [facility] Last Admin: 03/26/17 10:32 Dose: 40 mg Polyethylene Glycol (Miralax (For Daily Use) -) 17 gm PO DAILY [facility] Last Admin: 03/25/17 15:24 Dose: 17 grams Pramipexole Dihydrochloride (Mirapex -) 1.5 mg PO [facility] Last Admin: 03/26/17 22:55 Dose: 1.5 mg Pregabalin (Lyrica -) 25 mg PO BID [facility] Last Admin: 03/26/17 22:27 Dose: 25 mg Ranolazine (Ranexa -) 500 mg PO BID [facility] Last Admin: 03/26/17 22:27 Dose: 500 mg Senna (Senna -) 2 tab PO [facility] Last Admin: 03/26/17 22:28 Dose: 2 tab Topiramate (Topamax -) 150 mg PO BID [facility] Last Admin: 03/26/17 22:37 Dose: 150 mg Torsemide (Demadex -) 40 mg PO DAILY [facility] Last Admin: 01/08/18 10:31 Dose: 40 mg Verapamil HCl (Calan Sr -) 240 mg PO DAILY [facility] Last Admin: 03/26/17 10:34 Dose: 240 mg Warfarin Sodium 10 mg/ (Warfarin Sodium 2 mg) 12 mg PO DAILY@1800 [facility] Last Admin: 03/26/17 22:34 Dose: Not Given - Objective Vital Signs: Vital Signs - 24 hr 03/26/17 03/26/17 03/26/17 14:34 17:16 18:00 Temperature 98.1 F 98.4 F Pulse Rate 82 66 Respiratory 20 16 Rate Blood Pressure 147/62 135/65 O2 Sat by Pulse 97 Oximetry (%) 03/27/17 03/27/17 05:58 10:19 Temperature 97.5 F L Pulse Rate 57 L 70 Respiratory 18 Rate Blood Pressure 144/62 O2 Sat by Pulse 95 Oximetry (%) Intake & Output 03/25/17 03/26/17 03/27/17 03/28/17 07:59 07:59 07:59 07:59 Intake Total 540 460 740 Balance 540 460 740 Weight 205 lb 4 oz 205 lb 9 oz 206 lb 2 oz Constitutional: Yes: No Distress, Calm, Obese Cardiovascular: Yes: Regular Rate and Rhythm ([facility] S2 click), S1, S2. No: Gallop, Murmur Respiratory: Yes: Regular, clear. diminished air movment. nl effort No: Accessory Muscle Use, Rales, Wheezes Extremities: No: Cold Edema: No Neurological: Yes: Alert, Oriented Psychiatric: No: Agitated Labs: no BMP 03/27/17 06:00 Laboratory Tests 03/27/17 06:00 INR 3.24 H Assessment/Plan EKG: SR. RSR'/incomplete RBBB. non-specific t wave abnormalities, similar to priors. (QTc 412) cxr: no acute pulmonary disease Echo 04/05: nl LV/EF; nl RV; well-seated [facility] MVR. mild Echo 07/2015: tds; nl lv/rv, mild lae, nl [facility] mvr mibi 12/2013: no ischemia a/p: 66 with h/o COPD on home 02, FIGUEROA (on cpap at home), CAD (s/p single vessel CABG 2006 with RUSSELL to OM and ROSALINA x2 to LAD 12/2011; last cath 06/2014 showed patent RUSSELL, patent LAD stents, no sig residual dz except for 80-90% OM that is bypassed), [facility] mvr (st julia, 2007, on coumadin), anemia, TIA, diastolic CHF, DM, HTN, pafib, antiphospholipid syndrome (on coumadin), fibromyalgia, migraines, chronic atypical cp, obesity, LBP here with knee pain/ hemarthrosis. cough/sob/subjective fevers/tracheobronchitis +/- a.e. copd: - on home O2 for copd history - acute process being managed by pulm and ID, cultures and flu swab pending [facility] MVR: -also with antiphospholipid syndrome --> high risk for thrombosis of valve. on AC w/ coumadin target INR 2.5 to 3.5--continue coumadin per current dosing. - echo 07/[address] [facility] mvr function cad, s/p cabg, pci: - h/o chronic atypical cp. -cp msk, reproducible to palpation. normal lvef on recent echo, no concern for acs. -no bb due to copd/wheezing; on verapamil instead -not on statin due to prior intolerance -on ranexa as outpt for possible small vessel dz symptoms--will cont same and defer to outpt f/u with her cardio in our office (on 500 bid which is max rec'd dose in combo with verapamil--QTc ok on ekg here--see report) -on ac, no asa chronic diastolic chf - states she has been on torsemide 60 qd at home, dose incr'd by dr green when she felt fluid overloaded including in abdomen. - only receiving 40mg daily dose here. CXR without significant congestion. No sig volume overload on exam. likely euvolemic. - creat rising slightly--cont torsemide 40 as doing, monitor renal fxn. - 03/27: no recent bmp, ordered for tomorrow. - outpt f/u with dr green 2-4 wks after discharge HTN: - reasonable control on current meds - cont same, observe bp trend pafib with h/o tia: -rare episodes in past -remains in sr here based on initial ekg and exam -continue verapamil and dig. dig level okay/low here. -AC as disc'd above
[2017-03-27] MEDS ORDERED: INSULIN (NOVOLOG) ASPART 100 UNITS/ML 10ML VIAL ONE (13:06)
[2017-03-27] MEDS: POLYETHYLENE GLYCOL 3350 119 GM BTL PO SCH ×2 (13:13)
--- NOTE | 2017-03-27 15:46 | PN ---
Progress Note (short form) - Note Progress Note: PULMONARY Feels better today with increased steroids. +cough with clear sputum, chest tightness and shortness of breath. No fevers or chills. Last Vital Signs Temp Pulse Resp BP Pulse Ox 98 F 66 20 82/56 95 03/27/17 14:54 03/27/17 14:54 03/27/17 14:54 03/27/17 14:54 03/27/17 10:19 Gen: mildly tachypneic with speaking Heart: RRR Lung: poor air movement, less rhonchi, wheezes Abd: soft, nontender Ext: no edema CBC, BMP 03/27/17 06:00 03/25/17 06:30 Active Medications Acetaminophen (Tylenol -) 650 mg PO Q6H PRN PRN Reason: FEVER OR PAIN Acetylcysteine (Mucomyst 20 Oral / Inh Use Only*) 800 mg NEB RBID [facility] Albuterol Sulfate (Ventolin 0.083% Nebulizer Soln -) 1 amp NEB Q4H PRN PRN Reason: SHORT OF BREATH/WHEEZING Albuterol Sulfate (Ventolin 0.083% Nebulizer Soln -) 1 amp NEB RBID [facility] Artificial Tears (Artificial Tears) 1 drop OU BID PRN PRN Reason: PRN DRY EYES Last Admin: 03/24/17 10:26 Dose: 1 drop Budesonide (Pulmicort 0.25 Mg Nebulizer -) 1 amp NEB BID [facility] Last Admin: 03/27/17 10:20 Dose: 1 amp Bupropion HCl (Wellbutrin Xl -) 300 mg PO DAILY [facility] Last Admin: 03/27/17 12:36 Dose: 300 mg Carbidopa/Levodopa (Sinemet 25/100 -) 1 each PO HS [facility] Last Admin: 03/26/17 22:36 Dose: 1 each Cholecalciferol (Vitamin D3 -) 1,000 unit PO DAILY [facility] Last Admin: 03/27/17 12:31 Dose: 1,000 unit Citalopram Hydrobromide (Celexa -) 10 mg PO DAILY [facility] Last Admin: 03/27/17 12:30 Dose: 10 mg Digoxin (Lanoxin -) 0.125 mg PO DAILY [facility] Last Admin: 03/27/17 12:30 Dose: 0.125 mg Erythromycin (Erythromycin 0.5% Eye Ointment) 1 applic OU DAILY [facility] Last Admin: 03/27/17 12:31 Dose: 1 applic Ferrous Sulfate (Feosol -) 325 mg PO DAILY [facility] Last Admin: 03/27/17 12:35 Dose: 325 mg Guaifenesin/Codeine Phosphate (Robitussin Ac -) 10 ml PO Q8H PRN PRN Reason: COUGH Last Admin: 03/26/17 10:32 Dose: 10 ml Levofloxacin (Levaquin 500 Mg Premixed Ivpb -) 500 mg in 100 mls @ 100 mls/hr IVPB DAILY [facility] Last Admin: 03/27/17 12:31 Dose: 100 mls/hr Insulin Aspart (Novolog Vial Sliding Scale -) 1 vial SQ TIDAC [facility] PRN Reason: Protocol Last Admin: 03/27/17 13:12 Dose: 4 unit Insulin Detemir (Levemir Vial) 34 units SQ [facility] Last Admin: 03/26/17 22:50 Dose: 34 unit Lidocaine (Lidoderm Patch -) 1 patch TP DAILY [facility] Last Admin: 03/27/17 12:31 Dose: 1 patch Methylprednisolone Sodium Succinate (Solu-Medrol -) 60 mg IVPUSH Q6H-IV [facility] Last Admin: 03/27/17 12:29 Dose: 60 mg Miscellaneous (Lidoderm Patch Removal) 1 each MC DAILY@2200 [facility] Last Admin: 03/26/17 22:38 Dose: 1 each Montelukast Sodium (Singulair -) 10 mg PO [facility] Last Admin: 03/26/17 22:36 Dose: 10 mg Non-Formulary Medication (Ketotifen Fumarate [Eye Itch Relief]) 1 drop OU BID [facility] Last Admin: 03/27/17 12:35 Dose: 1 drop Pantoprazole Sodium (Protonix -) 40 mg PO DAILY [facility] Last Admin: 03/27/17 12:35 Dose: 40 mg Polyethylene Glycol (Miralax (For Daily Use) -) 17 gm PO DAILY [facility] Last Admin: 03/27/17 13:13 Dose: 17 grams Pramipexole Dihydrochloride (Mirapex -) 1.5 mg PO [facility] Last Admin: 03/26/17 22:55 Dose: 1.5 mg Pregabalin (Lyrica -) 25 mg PO BID [facility] Last Admin: 03/27/17 12:28 Dose: 25 mg Ranolazine (Ranexa -) 500 mg PO BID [facility] Last Admin: 03/27/17 12:29 Dose: 500 mg Senna (Senna -) 2 tab PO HS [facility] Last Admin: 03/26/17 22:28 Dose: 2 tab Topiramate (Topamax -) 150 mg PO BID [facility] Last Admin: 03/27/17 12:31 Dose: 150 mg Torsemide (Demadex -) 40 mg PO DAILY [facility] Last Admin: 03/27/17 12:27 Dose: 40 mg Verapamil HCl (Calan Sr -) 240 mg PO DAILY [facility] Last Admin: 03/27/17 12:35 Dose: 240 mg Warfarin Sodium 10 mg/ (Warfarin Sodium 2 mg) 12 mg PO DAILY@1800 [facility] Last Admin: 03/26/17 22:34 Dose: Not Given A/P Acute COPD Exacerbation Atrial Fibrillation CAD Lupus CHF - continue medrol to 60mg q6h - will consider tapering in AM if continued improvement - inhaled bronchodilators standing and PRN - O2 to keep SpO2 >90% - empiric antibiotics - rate controlled - continue anticoagulation
[2017-03-27] MEDS: guaiFENesin/CODEINE 10 ML UNIT-DOSE CUPS PO PRN (19:24)
--- NOTE | 2017-03-27 19:33 | HOSP ---
Subjective - Review of Symptoms Events since last encounter: Hospitalist Encounter Notified by the RN, that the patient reports left hand numbness A/P 66 y/o woman with a PMHx of: anemia, asthma, COPD on home 02, sleep apnea on CPAP, HTN, HLDm DM, CHF, CAD X2 stents, afib on Coumadin, MVR, CVA, Spinal Stenosis. Admitted for COPD Exacerbation. No focal deficits noted on exam. NIHSS 0 Plan: Head CT stat r/o CVA Will continue to monitor Head CT report- negative exam, no discrete noncontrast CT pathology is identified. Neurological: Yes: Numbness (left hand) Physical Examination Vital Signs: Vital Signs Temperature 97.9 F 03/27/17 17:51 Pulse Rate 68 03/27/17 17:51 Respiratory Rate 20 03/27/17 17:51 Blood Pressure 153/63 03/27/17 17:51 O2 Sat by Pulse Oximetry (%) 95 03/27/17 10:19 Constitutional: Yes: No Distress, Calm, Obese Eyes: Yes: WNL, Conjunctiva Clear, EOM Intact, PERRL HENT: Yes: WNL, Atraumatic, Normocephalic Neck: Yes: WNL, Supple, Trachea Midline Cardiovascular: Yes: Pulse Irregular, S1, S2, Other (Click) Respiratory: Yes: Diminished (bases), On Nasal O2 Gastrointestinal: Yes: WNL Musculoskeletal: Yes: WNL Extremities: Yes: WNL Edema: No Peripheral Pulses WNL: Yes Peripheral Pulses: Left Radial: 2+, Right Radial: 2+, Left Doralis Pedis: 2+, Right Dorsalis Pedis: 2+, Left Femoral: 2+, Right Femoral: 2+ Neurological: Yes: Alert, Oriented, Cran Nerves II-XII Intact, Numbness (left hand) ...Motor Strength: WNL, LUE, LLE, RUE, RLE Psychiatric: Yes: WNL, Alert, Oriented Labs: CBC, BMP 03/27/17 06:00 03/25/17 06:30 Laboratory Results - last 24 hr 03/26/17 03/27/17 03/27/17 22:41 06:00 06:00 WBC 15.6 H RBC 4.77 Hgb 13.6 Hct 42.9 MCV 89.8 MCH 28.5 MCHC 31.8 L RDW 16.9 H Plt Count 253 MPV 10.4 PT with INR INR PTT (Actin FS) 34.8 H POC Glucometer 364 03/27/17 03/27/17 03/27/17 06:00 06:32 13:04 WBC RBC Hgb Hct MCV MCH MCHC RDW Plt Count MPV PT with INR 36.60 H INR 3.24 H PTT (Actin FS) POC Glucometer 301 288 03/27/17 17:52 WBC RBC Hgb Hct MCV MCH MCHC RDW Plt Count MPV PT with INR INR PTT (Actin FS) POC Glucometer 289 Intake & Output 03/24/17 03/25/17 03/26/17 03/27/17 23:59 23:59 23:59 23:59 Intake Total 640 460 740 600 Balance 640 460 740 600 Weight 97.159 kg 93.1 kg 93.242 kg 93.497 kg Current Medications Generic Name Dose Route Start Last Admin Trade Name Freq PRN Reason Stop Dose Admin Acetaminophen 650 mg 03/20/17 23:08 Tylenol - PO Q6H PRN FEVER OR PAIN Acetylcysteine 800 mg 03/27/17 20:00 Mucomyst 20 Oral / Inh Use Only* NEB RBID [facility] Albuterol Sulfate 1 amp 03/27/17 15:31 Ventolin 0.083% Nebulizer Soln - NEB Q4H PRN SHORT OF BREATH/WHEEZING Albuterol Sulfate 1 amp 03/27/17 20:00 Ventolin 0.083% Nebulizer Soln - NEB RBID [facility] Artificial Tears 1 drop 03/20/17 23:15 03/24/17 10:26 Artificial Tears OU 1 drop BID PRN Administration PRN DRY EYES Budesonide 1 amp 03/22/17 11:15 03/27/17 10:20 Pulmicort 0.25 Mg Nebulizer - NEB 1 amp BID [facility] Administration Bupropion HCl 300 mg 03/21/17 10:00 03/27/17 12:36 Wellbutrin Xl - PO 300 mg DAILY [facility] Administration Carbidopa/Levodopa 1 each 03/21/17 22:00 03/26/17 22:36 Sinemet 25/100 - PO 1 each HS [facility] Administration Cholecalciferol 1,000 unit 03/21/17 10:00 03/27/17 12:31 Vitamin D3 - PO 1,000 unit DAILY [facility] Administration Citalopram Hydrobromide 10 mg 03/21/17 10:00 03/27/17 12:30 Celexa - PO 10 mg DAILY [facility] Administration Digoxin 0.125 mg 03/21/17 10:00 03/27/17 12:30 Lanoxin - PO 0.125 mg DAILY [facility] Administration Erythromycin 1 applic 03/21/17 10:00 03/27/17 12:31 Erythromycin 0.5% Eye Ointment OU 1 applic DAILY [facility] Administration Ferrous Sulfate 325 mg 03/21/17 10:00 03/27/17 12:35 Feosol - PO 325 mg DAILY [facility] Administration Guaifenesin/Codeine Phosphate 10 ml 03/24/17 14:29 03/27/17 19:24 Robitussin Ac - PO 10 ml Q8H PRN Administration COUGH Levofloxacin 500 mg in 100 mls @ 100 mls/hr 03/22/17 10:00 03/27/17 12:31 Levaquin 500 Mg Premixed Ivpb - IVPB 100 mls/hr DAILY [facility] Administration Insulin Aspart 1 vial 03/22/17 16:30 03/27/17 17:54 Novolog Vial Sliding Scale - SQ 4 unit TIDAC [facility] Administration Protocol Insulin Detemir 34 units 03/22/17 14:39 03/26/17 22:50 Levemir Vial SQ 34 unit HS [facility] Administration Lidocaine 1 patch 03/21/17 10:00 03/27/17 12:31 Lidoderm Patch - TP 1 patch DAILY [facility] Administration Methylprednisolone Sodium Succinate 60 mg 03/26/17 11:59 03/27/17 17:25 Solu-Medrol - IVPUSH Not Given Q6H-IV [facility] Miscellaneous 1 each 03/21/17 22:00 03/26/17 22:38 Lidoderm Patch Removal MC 1 each DAILY@2200 [facility] Administration Montelukast Sodium 10 mg 03/21/17 22:00 03/26/17 22:36 Singulair - PO 10 mg HS [facility] Administration Non-Formulary Medication 1 drop 03/21/17 10:00 03/27/17 12:35 Ketotifen Fumarate [Eye Itch Relief] OU 1 drop BID [facility] Administration Pantoprazole Sodium 40 mg 03/21/17 10:00 03/27/17 12:35 Protonix - PO 40 mg DAILY [facility] Administration Polyethylene Glycol 17 gm 03/21/17 10:00 03/27/17 13:13 Miralax (For Daily Use) - PO 17 grams DAILY [facility] Administration Pramipexole Dihydrochloride 1.5 mg 03/21/17 22:00 03/26/17 22:55 Mirapex - PO 1.5 mg HS [facility] Administration Pregabalin 25 mg 03/24/17 10:00 03/27/17 12:28 Lyrica - PO 25 mg BID [facility] Administration Ranolazine 500 mg 03/21/17 10:00 03/27/17 12:29 Ranexa - PO 500 mg BID [facility] Administration Senna 2 tab 03/21/17 22:00 03/26/17 22:28 Senna - PO 2 tab HS [facility] Administration Topiramate 150 mg 03/20/17 23:10 03/27/17 12:31 Topamax - PO 150 mg BID [facility] Administration Torsemide 40 mg 03/22/17 10:00 03/27/17 12:27 Demadex - PO 40 mg DAILY [facility] Administration Verapamil HCl 240 mg 03/21/17 10:00 03/27/17 12:35 Calan Sr - PO 240 mg DAILY [facility] Administration Warfarin Sodium 10 mg/ 12 mg 03/24/17 18:00 03/27/17 19:38 Warfarin Sodium 2 mg PO 12 mg DAILY@1800 [facility] Administration Critical Care Total Critical Care Time (in minutes): 45 Critical Care Statement: The care of this patient involved high complexity decision making to prevent further life threatening deterioration of the patient 's condition and/or to evaluate & treat vital organ system(s) failure or risk of failure.
[2017-03-27] MEDS ORDERED: WARFARIN NA 2 MG TABLET (UD) ONE (19:34)
[2017-03-27] MEDS ORDERED: WARFARIN NA 10 MG TABLET (FP) ONE (19:34)
[2017-03-27] MEDS: WARFARIN NA 10 MG, WARFARIN NA 2 MG PO SCH (19:38)
[2017-03-27] MEDS ORDERED: BUDESONIDE 0.5 MG/2 ML INH SUSP VIAL NEB ONE (21:45)
[2017-03-27] MEDS: ALBUTEROL SO4 0.083% IH SOL 2.5 MG/3 ML VIAL.NEB. NEB SCH (22:03)
[2017-03-27] MEDS: ACETYLCYSTEINE 20% 200MG/ML 4 ML VIAL *FOR ORAL / INH USE ONLY NEB SCH (22:04)
[2017-03-27] MEDS: INSULIN DETEMIR 100 UNITS/ML MDV SQ SCH (23:02)
[2017-03-27] MEDS: LIDOCAINE PATCH REMOVAL MC SCH (23:03)
[2017-03-27] MEDS: SENNOSIDES 8.6MG TABLET (FP) PO SCH (23:04)
[2017-03-27] MEDS: PRAMIPEXOLE DIHYDROCHLORIDE 1.5 MG TABLET PO SCH (23:04)
[2017-03-27] MEDS: CARBIDOPA/LEVODOPA 25/100 TABLET (FP) PO SCH (23:05)
[2017-03-27] MEDS: MONTELUKAST NA 10 MG TABLET PO SCH (23:06)
[2017-03-28] MEDS ORDERED: INSULIN DETEMIR 100 UNITS/ML MDV SQ ONE
[2017-03-28] MEDS: methylPREDNISolone NA SUCC 40 MG/1 ML VIAL IVPUSH SCH ×3 (03:08→17:11)
[2017-03-28] MEDS: INSULIN SLIDING SCALE (NOVOLOG) 1 VIAL SQ SCH ×3 (06:18→17:11)
[2017-03-28] MEDS ORDERED: PT OWN MED DRAWER 7, Y5N ONE ×2 (07:08→17:54)
[2017-03-28] MEDS ORDERED: INSULIN (NOVOLOG) ASPART 100 UNITS/ML 10ML VIAL ONE (07:08)
[2017-03-28 08:05] LABS: HEMATOCRIT 42.3 % (32.4-45.2); HEMOGLOBIN 13.4 GM/dL (10.7-15.3); MCH 28.6 pg (25.7-33.7); MCHC 31.6 g/dl (32.0-36.0); MEAN CELL VOLUME 90.6 fl (80-96); MEAN PLT VOLUME 10.5 fl (7.5-11.1); PLATELET COUNT 254 K/MM3 (134-434); RBC 4.67 M/mm3 (3.60-5.2); RDW 16.8 % (11.6-15.6); WHITE BLOOD COUNT 16.9 K/mm3 (4.0-10.0)
[2017-03-28 08:26] LABS: INR 2.11 (0.82-1.09); PROTHROMBIN TIME (PATIENT) 23.8 SEC (9.98-11.88)
[2017-03-28] MEDS: ALBUTEROL SO4 0.083% IH SOL 2.5 MG/3 ML VIAL.NEB. NEB SCH ×2 (08:35→20:30)
[2017-03-28] MEDS: ACETYLCYSTEINE 20% 200MG/ML 4 ML VIAL *FOR ORAL / INH USE ONLY NEB SCH ×2 (08:35→20:30)
[2017-03-28] MEDS: LIDOCAINE 5% TOPICAL PATCH TP SCH (09:00)
[2017-03-28] MEDS: FERROUS SO4 325 MG TABLET (FP) PO SCH (09:00)
[2017-03-28] MEDS: DIGOXIN 0.125 MG TABLET (FP) PO SCH (09:00)
[2017-03-28] MEDS: CITALOPRAM HYDROBROMIDE 10 MG TABLET (FP) PO SCH (09:00)
[2017-03-28] MEDS: PANTOPRAZOLE 40 MG TABLET (FP) PO SCH (09:00)
[2017-03-28] MEDS: LEVOFLOXACIN 500 MG IVPB 500 MG/100 ML BAG IVPB SCH (09:00)
[2017-03-28] MEDS: TORSEMIDE 20 MG TABLET (FP) PO SCH (09:01)
[2017-03-28] MEDS: CHOLECALCIFEROL (VITAMIN D3) 1,000 UNIT TABLET (FP) PO SCH (09:01)
[2017-03-28] MEDS: RANOLAZINE E.R. 500 MG TABLET (FP) PO SCH ×2 (09:01→21:23)
[2017-03-28] MEDS: PREGABALIN 25 MG CAPSULE PO SCH ×2 (09:01→21:22)
[2017-03-28] MEDS: ERYTHROMYCIN 0.5% OPHTHALMIC OINTMENT 3.5 GM TUBE OU SCH (09:02)
[2017-03-28] MEDS: KETOTIFEN FUMARATE OU SCH ×2 (09:02→21:22)
[2017-03-28] MEDS: VERAPAMIL HCL 240 MG E.R. TABLET (FP) PO SCH (09:02)
[2017-03-28] MEDS: TOPIRAMATE 100 MG TABLET PO SCH ×2 (09:04→21:24)
[2017-03-28] MEDS: POLYETHYLENE GLYCOL 3350 119 GM BTL PO SCH (09:04)
[2017-03-28 09:07] LABS: ANION GAP 12 (8-16); BLOOD UREA NITROGEN 44 mg/dL (7-18); CHLORIDE 96 mmol/L (98-107); CO2 28 mmol/L (21-32); POTASSIUM 3.8 mmol/L (3.5-5.1); SODIUM 136 mmol/L (136-145)
[2017-03-28] MEDS: BUDESONIDE 0.25 MG/2ML INH SUSP VIAL NEB SCH ×2 (09:09→21:30)
[2017-03-28 09:24] LABS: CREATININE 1.4 mg/dL (0.55-1.02)
[2017-03-28 10:42] LABS: GLUCOSE,RANDOM 333 mg/dL (74-106)
--- NOTE | 2017-03-28 14:09 | PN ---
Progress Note (short form) - Note Progress Note: PULMONARY SUBJECTIVE IMPROVEMENT VSS/AFEBRILE ANICTERIC DIMINISHED BREATH SOUNDS B/L S1S2 OBESE NO EDEMA LABS/MEDS/NOTES/IMAGES/MICRO REVIEWED INR 2.11 (1) COPD (chronic obstructive pulmonary disease) Code(s): J44.9 - CHRONIC OBSTRUCTIVE PULMONARY DISEASE, UNSPECIFIED (2) Afib Code(s): I48.91 - UNSPECIFIED ATRIAL FIBRILLATION Qualifiers: Atrial fibrillation type: paroxysmal Qualified Code(s): I48.0 - Paroxysmal atrial fibrillation (3) Anticoagulated Code(s): Z79.01 - PENITENTIARY (CURRENT) USE OF ANTICOAGULANTS (4) Asthma exacerbation in COPD Code(s): J44.1 - CHRONIC OBSTRUCTIVE PULMONARY DISEASE W (ACUTE) EXACERBATION; J45.901 - UNSPECIFIED ASTHMA WITH (ACUTE) EXACERBATION (5) CAD (coronary artery disease) Code(s): I25.10 - ATHSCL HEART DISEASE OF [place] CORONARY ARTERY W/O ANG PCTRS (6) CHF (congestive heart failure) Code(s): I50.9 - HEART FAILURE, UNSPECIFIED Assessment/Plan O2/NIPPV HS/PRN/BRONCHODILATORS/IV STEROIDS ADJUSTED ANTIBIOTICS CONTINUE PT R ROSANA MEZA Problem List - Problems (1) COPD (chronic obstructive pulmonary disease) Code(s): J44.9 - CHRONIC OBSTRUCTIVE PULMONARY DISEASE, UNSPECIFIED Qualifiers: COPD type: COPD with acute exacerbation Qualified Code(s): J44.1 - Chronic obstructive pulmonary disease with (acute) exacerbation (2) Afib Code(s): I48.91 - UNSPECIFIED ATRIAL FIBRILLATION Qualifiers: Atrial fibrillation type: paroxysmal Qualified Code(s): I48.0 - Paroxysmal atrial fibrillation (3) Anticoagulated Code(s): Z79.01 - [employer] (CURRENT) USE OF ANTICOAGULANTS (4) Asthma exacerbation in COPD Code(s): J44.1 - CHRONIC OBSTRUCTIVE PULMONARY DISEASE W (ACUTE) EXACERBATION; J45.901 - UNSPECIFIED ASTHMA WITH (ACUTE) EXACERBATION (5) CAD (coronary artery disease) Code(s): I25.10 - ATHSCL HEART DISEASE OF [place] CORONARY ARTERY W/O ANG PCTRS (6) CHF (congestive heart failure) Code(s): I50.9 - HEART FAILURE, UNSPECIFIED
--- NOTE | 2017-03-28 14:40 | PN ---
Progress Note, Physician Chief Complaint: SOB, Cough History of Present Illness: NAD, complains of cough and SOB with Exertion seen by pulmonary and cardiology has antiphospholipid syndrome and mechanical mitral valve-->high risk of thrombosis, on Warfarin, INR foal is 2.5-3.5 events overnight noted- had numbness in the left hand, evaluated by hospitalist CT head negative complains of intermittent numbness in upper and lower extremity, has seen Dr Carranza in the past Complains of generalized pain, take oxycodone at home - Current Medication List Current Medications: Active Medications Acetaminophen (Tylenol -) 650 mg PO Q6H PRN PRN Reason: FEVER OR PAIN Acetylcysteine (Mucomyst 20 Oral / Inh Use Only*) 800 mg NEB RBID [facility] Last Admin: 03/28/17 08:35 Dose: 800 mg Albuterol Sulfate (Ventolin 0.083% Nebulizer Soln -) 1 amp NEB Q4H PRN PRN Reason: SHORT OF BREATH/WHEEZING Albuterol Sulfate (Ventolin 0.083% Nebulizer Soln -) 1 amp NEB RBID [facility] Last Admin: 03/28/17 08:35 Dose: 1 amp Artificial Tears (Artificial Tears) 1 drop OU BID PRN PRN Reason: PRN DRY EYES Last Admin: 03/24/17 10:26 Dose: 1 drop Budesonide (Pulmicort 0.25 Mg Nebulizer -) 1 amp NEB BID [facility] Last Admin: 03/28/17 09:09 Dose: 1 amp Bupropion HCl (Wellbutrin Xl -) 300 mg PO DAILY [facility] Last Admin: 03/28/17 09:03 Dose: 300 mg Carbidopa/Levodopa (Sinemet 25/100 -) 1 each PO HS [facility] Last Admin: 03/27/17 23:05 Dose: 1 each Cholecalciferol (Vitamin D3 -) 1,000 unit PO DAILY [facility] Last Admin: 03/28/17 09:01 Dose: 1,000 unit Citalopram Hydrobromide (Celexa -) 10 mg PO DAILY [facility] Last Admin: 03/28/17 09:00 Dose: 10 mg Digoxin (Lanoxin -) 0.125 mg PO DAILY [facility] Last Admin: 03/28/17 09:00 Dose: 0.125 mg Erythromycin (Erythromycin 0.5% Eye Ointment) 1 applic OU DAILY [facility] Last Admin: 03/28/17 09:02 Dose: 1 applic Ferrous Sulfate (Feosol -) 325 mg PO DAILY [facility] Last Admin: 03/28/17 09:00 Dose: 325 mg Guaifenesin/Codeine Phosphate (Robitussin Ac -) 10 ml PO Q8H PRN PRN Reason: COUGH Last Admin: 03/27/17 19:24 Dose: 10 ml Levofloxacin (Levaquin 500 Mg Premixed Ivpb -) 500 mg in 100 mls @ 100 mls/hr IVPB DAILY [facility] Last Admin: 03/28/17 09:00 Dose: 100 mls/hr Insulin Aspart (Novolog Vial Sliding Scale -) 1 vial SQ TIDAC [facility] PRN Reason: Protocol Last Admin: 03/28/17 11:22 Dose: 6 unit Insulin Detemir (Levemir Vial) 34 units SQ [facility] Last Admin: 03/27/17 23:02 Dose: 34 unit Lidocaine (Lidoderm Patch -) 1 patch TP DAILY [facility] Last Admin: 03/28/17 09:00 Dose: 1 patch Methylprednisolone Sodium Succinate (Solu-Medrol -) 40 mg IVPUSH Q8H-IV [facility] Miscellaneous (Lidoderm Patch Removal) 1 each MC DAILY@2200 [facility] Last Admin: 03/27/17 23:03 Dose: 1 each Montelukast Sodium (Singulair -) 10 mg PO [facility] Last Admin: 03/27/17 23:06 Dose: 10 mg Non-Formulary Medication (Ketotifen Fumarate [Eye Itch Relief]) 1 drop OU BID [facility] Last Admin: 03/28/17 09:02 Dose: 1 drop Pantoprazole Sodium (Protonix -) 40 mg PO DAILY [facility] Last Admin: 03/28/17 09:00 Dose: 40 mg Polyethylene Glycol (Miralax (For Daily Use) -) 17 gm PO DAILY [facility] Last Admin: 03/28/17 09:04 Dose: 17 grams Pramipexole Dihydrochloride (Mirapex -) 1.5 mg PO HS [facility] Last Admin: 03/27/17 23:04 Dose: 1.5 mg Pregabalin (Lyrica -) 25 mg PO BID [facility] Last Admin: 03/28/17 09:01 Dose: 25 mg Ranolazine (Ranexa -) 500 mg PO BID [facility] Last Admin: 03/28/17 09:01 Dose: 500 mg Senna (Senna -) 2 tab PO HS [facility] Last Admin: 03/27/17 23:04 Dose: 2 tab Topiramate (Topamax -) 150 mg PO BID [facility] Last Admin: 03/28/17 09:04 Dose: 150 mg Torsemide (Demadex -) 40 mg PO DAILY [facility] Last Admin: 03/28/17 09:01 Dose: 40 mg Verapamil HCl (Calan Sr -) 240 mg PO DAILY [facility] Last Admin: 03/28/17 09:02 Dose: 240 mg Warfarin Sodium 10 mg/ (Warfarin Sodium 2 mg) 12 mg PO DAILY@1800 [facility] Last Admin: 03/27/17 19:38 Dose: 12 mg - Objective Vital Signs: Vital Signs Temperature 97.9 F 03/28/17 10:00 Pulse Rate 63 03/28/17 10:00 Respiratory Rate 22 03/28/17 10:00 Blood Pressure 134/60 03/28/17 10:00 O2 Sat by Pulse Oximetry (%) 98 03/28/17 09:00 Constitutional: Yes: Well Nourished, No Distress, Calm Cardiovascular: Yes: Regular Rate and Rhythm Respiratory: Yes: Regular Musculoskeletal: Yes: WNL Extremities: Yes: WNL Edema: No Peripheral Pulses WNL: Yes Neurological: Yes: Alert, Oriented Psychiatric: Yes: Alert, Oriented Labs: CBC, BMP 03/28/17 06:00 03/28/17 06:00 INR, PTT INR 2.11 (0.82-1.09) H D 03/28/17 06:00 Problem List - Problems (1) Asthma exacerbation in COPD Assessment/Plan: -Pulmonary consult -IV steroid tapering -Neb tx -BIPAP -seen by ID- ordered IV Levaquin Code(s): J44.1 - CHRONIC OBSTRUCTIVE PULMONARY DISEASE W (ACUTE) EXACERBATION; J45.901 - UNSPECIFIED ASTHMA WITH (ACUTE) EXACERBATION (2) CAD (coronary artery disease) Assessment/Plan: -cardiology consult -not on statin due to intolerance -already on AC-warfarin, no Aspirin -repeat echo no changes -on CCB Code(s): I25.10 - ATHSCL HEART DISEASE OF [place] CORONARY ARTERY W/O ANG PCTRS (3) CHF (congestive heart failure) Assessment/Plan: -BNP negatve for any fluid overload, -CXR negative -on Torsemide 40 mg po daily Code(s): I50.9 - HEART FAILURE, UNSPECIFIED (4) H/O prosthetic mitral valve Assessment/Plan: -On warfarin, takes 14 mg once a week and 12 mg all other days of the week at home -INR goal 2.5-3.5 (5) IDDM (insulin dependent diabetes mellitus) Assessment/Plan: Levemir and insulin sliding scale -diabetic diet -RD consult -last A1c 6.8 in 12/2016 Code(s): E11.9 - TYPE 2 DIABETES MELLITUS WITHOUT COMPLICATIONS; Z79.4 - [employer] (CURRENT) USE OF INSULIN (6) Leukocytosis Assessment/Plan: secondary to IV steroids Code(s): D72.829 - ELEVATED WHITE BLOOD CELL COUNT, UNSPECIFIED (7) Lupus Assessment/Plan: -Neurology consult -oxycodone for pain management -lyrica Code(s): L93.0 - DISCOID LUPUS ERYTHEMATOSUS Assessment/Plan see problem list Physical therapy On AC GI prophylaxis
[2017-03-28] MEDS: guaiFENesin/CODEINE 10 ML UNIT-DOSE CUPS PO PRN (14:50)
--- NOTE | 2017-03-28 14:50 | PN ---
Progress Note (short form) - Note Progress Note: Chief Complaint: cough/sob History of Present Illness: cough, sob, pleuritic cp improving. no leg swelling, palpitations Current Medications Acetaminophen (Tylenol -) 650 mg PO Q6H PRN PRN Reason: FEVER OR PAIN Acetylcysteine (Mucomyst 20 Oral / Inh Use Only*) 800 mg NEB RBID [facility] Last Admin: 03/28/17 08:35 Dose: 800 mg Albuterol Sulfate (Ventolin 0.083% Nebulizer Soln -) 1 amp NEB Q4H PRN PRN Reason: SHORT OF BREATH/WHEEZING Albuterol Sulfate (Ventolin 0.083% Nebulizer Soln -) 1 amp NEB RBID [facility] Last Admin: 03/28/17 08:35 Dose: 1 amp Artificial Tears (Artificial Tears) 1 drop OU BID PRN PRN Reason: PRN DRY EYES Last Admin: 03/24/17 10:26 Dose: 1 drop Budesonide (Pulmicort 0.25 Mg Nebulizer -) 1 amp NEB BID [facility] Last Admin: 03/28/17 09:09 Dose: 1 amp Bupropion HCl (Wellbutrin Xl -) 300 mg PO DAILY [facility] Last Admin: 03/28/17 09:03 Dose: 300 mg Carbidopa/Levodopa (Sinemet 25/100 -) 1 each PO HS [facility] Last Admin: 03/27/17 23:05 Dose: 1 each Cholecalciferol (Vitamin D3 -) 1,000 unit PO DAILY [facility] Last Admin: 03/28/17 09:01 Dose: 1,000 unit Citalopram Hydrobromide (Celexa -) 10 mg PO DAILY [facility] Last Admin: 03/28/17 09:00 Dose: 10 mg Digoxin (Lanoxin -) 0.125 mg PO DAILY [facility] Last Admin: 03/28/17 09:00 Dose: 0.125 mg Erythromycin (Erythromycin 0.5% Eye Ointment) 1 applic OU DAILY [facility] Last Admin: 03/28/17 09:02 Dose: 1 applic Ferrous Sulfate (Feosol -) 325 mg PO DAILY [facility] Last Admin: 03/28/17 09:00 Dose: 325 mg Guaifenesin/Codeine Phosphate (Robitussin Ac -) 10 ml PO Q8H PRN PRN Reason: COUGH Last Admin: 03/27/17 19:24 Dose: 10 ml Levofloxacin (Levaquin 500 Mg Premixed Ivpb -) 500 mg in 100 mls @ 100 mls/hr IVPB DAILY [facility] Last Admin: 03/28/17 09:00 Dose: 100 mls/hr Insulin Aspart (Novolog Vial Sliding Scale -) 1 vial SQ TIDAC [facility] PRN Reason: Protocol Last Admin: 03/28/17 11:22 Dose: 6 unit Insulin Detemir (Levemir Vial) 34 units SQ [facility] Last Admin: 03/27/17 23:02 Dose: 34 unit Lidocaine (Lidoderm Patch -) 1 patch TP DAILY [facility] Last Admin: 03/28/17 09:00 Dose: 1 patch Methylprednisolone Sodium Succinate (Solu-Medrol -) 40 mg IVPUSH Q8H-IV [facility] Miscellaneous (Lidoderm Patch Removal) 1 each MC DAILY@2200 [facility] Last Admin: 03/27/17 23:03 Dose: 1 each Montelukast Sodium (Singulair -) 10 mg PO [facility] Last Admin: 03/27/17 23:06 Dose: 10 mg Non-Formulary Medication (Ketotifen Fumarate [Eye Itch Relief]) 1 drop OU BID [facility] Last Admin: 03/28/17 09:02 Dose: 1 drop Pantoprazole Sodium (Protonix -) 40 mg PO DAILY [facility] Last Admin: 03/28/17 09:00 Dose: 40 mg Polyethylene Glycol (Miralax (For Daily Use) -) 17 gm PO DAILY [facility] Last Admin: 03/28/17 09:04 Dose: 17 grams Pramipexole Dihydrochloride (Mirapex -) 1.5 mg PO [facility] Last Admin: 03/27/17 23:04 Dose: 1.5 mg Pregabalin (Lyrica -) 25 mg PO BID [facility] Last Admin: 03/28/17 09:01 Dose: 25 mg Ranolazine (Ranexa -) 500 mg PO BID [facility] Last Admin: 03/28/17 09:01 Dose: 500 mg Senna (Senna -) 2 tab PO [facility] Last Admin: 03/27/17 23:04 Dose: 2 tab Topiramate (Topamax -) 150 mg PO BID [facility] Last Admin: 03/28/17 09:04 Dose: 150 mg Torsemide (Demadex -) 40 mg PO DAILY [facility] Last Admin: 03/28/17 09:01 Dose: 40 mg Verapamil HCl (Calan Sr -) 240 mg PO DAILY [facility] Last Admin: 03/28/17 09:02 Dose: 240 mg Warfarin Sodium 10 mg/ (Warfarin Sodium 2 mg) 12 mg PO DAILY@1800 [facility] Last Admin: 03/27/17 19:38 Dose: 12 mg Warfarin Sodium (Coumadin -) 4 mg PO ONCE@1800 ONE Stop: 03/28/17 18:01 Warfarin Sodium (Coumadin -) 10 mg PO ONCE@1800 ONE Stop: 03/28/17 18:01 - Objective Vital Signs: Vital Signs - 24 hr 03/27/17 03/27/17 03/27/17 14:54 17:51 21:42 Temperature 98 F 97.9 F 97.7 F Pulse Rate 66 68 68 Respiratory 20 20 20 Rate Blood Pressure 82/56 153/63 137/69 O2 Sat by Pulse 97 Oximetry (%) 03/28/17 03/28/17 03/28/17 05:31 08:31 09:00 Temperature 97.4 F L Pulse Rate 50 L 64 63 Respiratory 20 22 Rate Blood Pressure 156/69 O2 Sat by Pulse 98 98 Oximetry (%) 03/28/17 10:00 Temperature 97.9 F Pulse Rate 63 Respiratory 22 Rate Blood Pressure 134/60 O2 Sat by Pulse Oximetry (%) Intake & Output 03/26/17 03/27/17 03/28/17 03/29/17 07:59 07:59 07:59 07:59 Intake Total 460 740 750 150 Balance 460 740 750 150 Weight 205 lb 9 oz 206 lb 2 oz 204 lb 3.2 oz Constitutional: Yes: No Distress, Calm, Obese Cardiovascular: Yes: Regular Rate and Rhythm ([facility] S2 click), S1, S2. No: Gallop, Murmur Respiratory: Yes: Regular, clear. diminished air movement. nl effort No: Accessory Muscle Use, Rales, Wheezes Extremities: No: Cold Edema: No Neurological: Yes: Alert, Oriented Psychiatric: No: Agitated Labs: CBC, BMP 03/28/17 06:00 03/28/17 06:00 Laboratory Tests 03/28/17 03/28/17 06:00 06:00 INR 2.11 H D Digoxin 0.7965 L Assessment/Plan EKG: SR. RSR'/incomplete RBBB. non-specific t wave abnormalities, similar to priors. (QTc 412) cxr: no acute pulmonary disease Echo 04/05: nl LV/EF; nl RV; well-seated [facility] MVR. mild Echo 07/2015: tds; nl lv/rv, mild lae, nl mech mvr mibi 12/2013: no ischemia a/p: 66 with h/o COPD on home 02, FIGUEROA (on cpap at home), CAD (s/p single vessel CABG 2006 with RUSSELL to OM and ROSALINA x2 to LAD 12/2011; last cath 06/2014 showed patent RUSSELL, patent LAD stents, no sig residual dz except for 80-90% OM that is bypassed), [facility] ([facility], 2006, on coumadin), anemia, TIA, diastolic CHF, DM, HTN, pafib, antiphospholipid syndrome (on coumadin), fibromyalgia, migraines, chronic atypical cp, obesity, LBP here with knee pain/ hemarthrosis. cough/sob/subjective fevers/tracheobronchitis +/- a.e. copd: - on home O2 for copd history - acute process being managed by pulm and ID, cultures and flu swab negative [facility] MVR: -also with antiphospholipid syndrome --> high risk for thrombosis of valve. on AC w/ coumadin target INR 2.5 to 3.5--continue coumadin per current dosing. - repeat echo here with normal [facility] mvr function cad, s/p cabg, pci: - h/o chronic atypical cp. -cp msk, reproducible to palpation. normal lvef on recent echo, no concern for acs. -no bb due to copd/wheezing; on verapamil instead -not on statin due to prior intolerance -on ranexa as outpt for possible small vessel dz symptoms--will cont same and defer to outpt f/u with her cardio in our office (on 500 bid which is max rec'd dose in combo with verapamil--QTc ok on ekg here--see report) -on ac, no asa chronic diastolic chf - states she has been on torsemide 60 qd at home, dose incr'd by dr green when she felt fluid overloaded including in abdomen. - only receiving 40mg daily dose here. CXR without significant congestion. No sig volume overload on exam. likely euvolemic. - creat rising slightly--cont torsemide 40 as doing, monitor renal fxn. - 03/27: no recent bmp, ordered for tomorrow. - 03/28: bmp and weight overall stable on current torsemide dose, cont - outpt f/u with dr green 2-4 wks after discharge HTN: - reasonable control on current meds, labile. cont same, observe bp trend pafib with h/o tia: -rare episodes in past -remains in sr here based on initial ekg and exam -continue verapamil and dig. dig level okay/low here. -AC as disc'd above
[2017-03-28] MEDS ORDERED: WARFARIN NA 10 MG TABLET (FP) ONE (17:09)
[2017-03-28] MEDS ORDERED: WARFARIN NA 2 MG TABLET (UD) ONE (17:09)
[2017-03-28] MEDS ORDERED: WARFARIN NA 2 MG TABLET (UD) PO ONE (18:00)
[2017-03-28] MEDS ORDERED: WARFARIN NA PO ONE (18:00)
[2017-03-28] MEDS ORDERED: WARFARIN NA 10 MG TABLET (FP) PO ONE (18:00)
[2017-03-28] MEDS: INSULIN DETEMIR 100 UNITS/ML MDV SQ SCH (21:22)
[2017-03-28] MEDS: CARBIDOPA/LEVODOPA 25/100 TABLET (FP) PO SCH (21:23)
[2017-03-28] MEDS: SENNOSIDES 8.6MG TABLET (FP) PO SCH (21:23)
[2017-03-28] MEDS: PRAMIPEXOLE DIHYDROCHLORIDE 1.5 MG TABLET PO SCH (21:23)
[2017-03-28] MEDS: MONTELUKAST NA 10 MG TABLET PO SCH (21:24)
[2017-03-28] MEDS: LIDOCAINE PATCH REMOVAL MC SCH (21:25)
[2017-03-29] MEDS: methylPREDNISolone NA SUCC 40 MG/1 ML VIAL IVPUSH SCH ×3 (02:08→17:05)
[2017-03-29] MEDS: INSULIN SLIDING SCALE (NOVOLOG) 1 VIAL SQ SCH ×3 (06:25→17:00)
[2017-03-29] MEDS: ACETYLCYSTEINE 20% 200MG/ML 4 ML VIAL *FOR ORAL / INH USE ONLY NEB SCH ×2 (09:03→20:58)
[2017-03-29] MEDS: ALBUTEROL SO4 0.083% IH SOL 2.5 MG/3 ML VIAL.NEB. NEB SCH ×2 (09:04→20:58)
[2017-03-29] MEDS: PREGABALIN 25 MG CAPSULE PO SCH ×2 (09:36→22:06)
[2017-03-29] MEDS: ARTIFICIAL TEARS (POLYVINYL ALCOHOL 1.4%) OPTH DROPS OU PRN (09:36)
[2017-03-29] MEDS: RANOLAZINE E.R. 500 MG TABLET (FP) PO SCH ×2 (09:36→22:07)
[2017-03-29] MEDS: TOPIRAMATE 100 MG TABLET PO SCH ×2 (09:37→22:08)
[2017-03-29] MEDS: guaiFENesin/CODEINE 10 ML UNIT-DOSE CUPS PO PRN (09:38)
[2017-03-29] MEDS: VERAPAMIL HCL 240 MG E.R. TABLET (FP) PO SCH (09:38)
[2017-03-29] MEDS: DIGOXIN 0.125 MG TABLET (FP) PO SCH (09:39)
[2017-03-29] MEDS: TORSEMIDE 20 MG TABLET (FP) PO SCH (09:39)
[2017-03-29] MEDS: FERROUS SO4 325 MG TABLET (FP) PO SCH (09:39)
[2017-03-29] MEDS: CHOLECALCIFEROL (VITAMIN D3) 1,000 UNIT TABLET (FP) PO SCH (09:39)
[2017-03-29] MEDS: PANTOPRAZOLE 40 MG TABLET (FP) PO SCH (09:39)
[2017-03-29] MEDS: CITALOPRAM HYDROBROMIDE 10 MG TABLET (FP) PO SCH (09:39)
[2017-03-29] MEDS: LIDOCAINE 5% TOPICAL PATCH TP SCH (09:39)
[2017-03-29] MEDS: ERYTHROMYCIN 0.5% OPHTHALMIC OINTMENT 3.5 GM TUBE OU SCH (09:40)
[2017-03-29] MEDS: KETOTIFEN FUMARATE OU SCH ×2 (09:41→22:09)
--- NOTE | 2017-03-29 10:04 | CONSULT ---
Consult - text type - Consultation Consultation Note: Neurology History of Present Illness The patient is a 66 year old female, with a significant past medical history of anemia, asthma, COPD on O2, sleep apnea on CPAP, HTN, hyperlipidemia, DM, CHF, CAD x2 stents, afib on coumadin, mitral valve replacement, CVA, spinal stenosis who presents to the emergency department with cough for about 2 weeks. The patient reports having intermittent fever and cough. She was admitted for further management and has been having intermittent paresthesias. States they occu in her L hand, R foot, no specific distribution. States they've been occuring for "a long time". She sees Dr. Carranza as outpatient and I am covering for him in the hospital. Discussed with her that EMG would be indicated and can be done as outpatient. Would be preferred to have Dr. Carranza complete this in his office and she was in agreement. Symptoms self resolve and not acute. - General Chief Complaint: Respiratory Stated Complaint: SOB Time Seen by Provider: 03/20/17 18:05 Past History - Past Medical History Anemia: Yes Asthma: Yes Cardiac Disorders: Yes (mitral valve replacement, stents x2,a-fib, CAD) CVA: Yes (MULTIPLE TIAs) COPD: Yes (Yes, O2 2L-3L) CHF: Yes Diabetes: Yes GI Disorders: Yes (ulcers, GI bleed, hemorrhoids, diverticulosis) Disorders: Yes (bladder mesh) HTN: Yes Hypercholesterolemia: Yes Seizures: Yes Thyroid Disease: No - Surgical History Appendectomy: Yes Cardiac Surgery: Yes (stentsx2, mitral valve replacement, CABG) Cholecystectomy: Yes Orthopedic Surgery: Yes (left knee pain injection) - Immunization History Immunization Up to Date: Yes - Suicide/Smoking/Psychosocial Hx Smoking Status: No Smoking History: Never smoked Have you smoked in the past 12 months: No Number of Cigarettes Smoked Daily: 0 If you are a former smoker, when did you quit?: many years Information on smoking cessation initiated: No Hx Alcohol Use: No Drug/Substance Use Hx: No Substance Use Type: None Hx Substance Use Treatment: No - Past Medical History Allergies/Adverse Reactions: Allergies Allergy/AdvReac Type Severity Reaction Status Date / Time lactose Allergy Mild Verified 03/20/17 18:08 Beta-Blockers Allergy Verified 03/20/17 18:08 (Beta-Adrenergic Bloc Iodinated Contrast- Oral and Allergy Verified 03/20/17 18:08 IV Dye [IV Dye, Iodine Containing Contrast ] shellfish derived Allergy Verified 03/20/17 18:08 Home Medications: Ambulatory Orders Albuterol 0.083% Nebulizer Brigitte [Ventolin 0.083% Nebulizer Soln -] 1 neb NEB QID 02/01/16 Carbidopa/Levodopa [Carbidopa-Levodopa 25-100 Tab] 1 each PO HS 02/01/16 Cholecalciferol (Vitamin D3) [Vitamin D3] 1,000 unit PO DAILY 02/01/16 Ferrous Sulfate [Feosol] 325 mg PO DAILY 02/01/16 Insulin Sliding Scale [Novolog Vial Sliding Scale -] 0 units SQ ACHS 02/01/16 Montelukast Na [Singulair -] 10 mg PO HS 02/01/16 [place]-3 Acid Ethyl Esters [Lovaza] 1 gm PO BID 02/01/16 Polyethylene Glycol 3350 [Miralax 119 gm Btl -] 17 gm PO DAILY 02/01/16 Potassium Chloride 60 meq PO DAILY 02/01/16 Sennosides [Senna] 2 tab PO HS 02/01/16 Topiramate [Topiramate ER] 150 mg PO BID 02/01/16 Verapamil HCl [Verapamil ER] 240 mg PO DAILY 02/01/16 Warfarin Na [Coumadin -] 14 mg PO DAILY 02/01/16 Acetaminophen [Tylenol .Regular Strength -] 650 mg PO Q6H PRN #0 tablet Bupropion HCl [Wellbutrin Xl -] 300 mg PO DAILY #30 tab 09/03/16 Citalopram Hydrobromide [Celexa -] 10 mg PO DAILY tablet 09/03/16 Digoxin [Lanoxin -] 0.125 mg PO DAILY #30 tablet 09/03/16 Insulin (Levemir) [Levemir Vial] 30 units SQ HS ml 09/03/16 Lidocaine 5% Patch [Lidoderm -] 1 patch TP DAILY patch 09/03/16 Pantoprazole Sodium [Protonix -] 40 mg PO DAILY tab 09/03/16 Pramipexole Dihydrochloride [Mirapex -] 1.5 mg PO HS tablet 09/03/16 Ranolazine [Ranexa -] 500 mg PO BID tab 09/03/16 Erythromycin 0.5% Eye Ointment [Erythromycin 0.5% Eye Ointment -] 1 applic OU DAILY 03/20/17 Ketotifen Fumarate [Eye Itch Relief] 1 drop OU BID 03/20/17 Nitroglycerin [Nitrostat] 0.4 mg SL PRN PRN 03/20/17 Polyvinyl Alcohol [Artificial Tears] 1 drop OU ASDIR 03/20/17 Torsemide [Demadex -] 60 mg PO BID 03/20/17 Review of Systems GENERAL/CONSTITUTIONAL: +fever No chills. No weakness. HEAD, EYES, EARS, NOSE AND THROAT: No change in vision. No ear pain or discharge. No sore throat. CARDIOVASCULAR: + chest pain and shortness of breath. RESPIRATORY: +cough No wheezing, or hemoptysis. GASTROINTESTINAL: No nausea, vomiting, diarrhea or constipation. GENITOURINARY: No dysuria, frequency, or change in urination. MUSCULOSKELETAL: No joint or muscle swelling or pain. No neck or back pain. SKIN: No rash NEUROLOGIC: No headache, vertigo, loss of consciousness, or change in strength/ sensation. ENDOCRINE: No increased thirst. No abnormal weight change. HEMATOLOGIC/LYMPHATIC: No anemia, easy bleeding, or history of blood clots. ALLERGIC/IMMUNOLOGIC: No hives or skin allergy. *Physical Exam Vital Signs Temperature 97.3 F L 03/29/17 05:54 Pulse Rate 60 03/29/17 09:39 Respiratory Rate 20 03/29/17 05:54 Blood Pressure 127/58 03/29/17 05:54 O2 Sat by Pulse Oximetry (%) 99 03/29/17 09:00 GENERAL: Awake, alert, and fully oriented, in no acute distress. Morbidly obese. HEAD: No signs of trauma EYES: PERRLA, EOMI, sclera anicteric, conjunctiva clear ENT: Auricles normal inspection, hearing grossly normal, nares patent, oropharynx clear without exudates. Dry mucosa NECK: Normal ROM, supple, no lymphadenopathy, JVD, or masses LUNGS: Dec air entry B/L, +coarse crackles at the L base. No wheezes, and no crackles HEART: Regular rate and rhythm, normal S1 and S2, no murmurs, rubs or gallops ABDOMEN: Soft, nontender, normoactive bowel sounds. No guarding, no rebound. No masses EXTREMITIES: Normal range of motion, no edema. No clubbing or cyanosis. No cords, erythema, or tenderness NEUROLOGICAL: Cranial nerves II through XII grossly intact. Normal speech, normal gait SKIN: Warm, Dry, normal turgor, no rashes or lesions noted. CBCD WBC 16.9 K/mm3 (4.0-10.0) H 03/28/17 06:00 RBC 4.67 M/mm3 (3.60-5.2) 03/28/17 06:00 Hgb 13.4 GM/dL (10.7-15.3) 03/28/17 06:00 Hct 42.3 % (32.4-45.2) 03/28/17 06:00 MCV 90.6 fl (80-96) 03/28/17 06:00 MCHC 31.6 g/dl (32.0-36.0) L 03/28/17 06:00 RDW 16.8 % (11.6-15.6) H 03/28/17 06:00 Plt Count 254 K/MM3 (134-434) 03/28/17 06:00 MPV 10.5 fl (7.5-11.1) 03/28/17 06:00 CMP Sodium 136 mmol/L (136-145) 03/28/17 06:00 Potassium 3.8 mmol/L (3.5-5.1) 03/28/17 06:00 Chloride 96 mmol/L (98-107) L 03/28/17 06:00 Carbon Dioxide 28 mmol/L (21-32) 03/28/17 06:00 Anion Gap 12 (8-16) 03/28/17 06:00 BUN 44 mg/dL (7-18) H 03/28/17 06:00 Creatinine 1.4 mg/dL (0.55-1.02) H 03/28/17 06:00 Creat Clearance w eGFR 34.85 (>60) 03/25/17 06:30 Calcium 9.0 mg/dL (8.5-10.1) 03/28/17 06:00 Total Bilirubin 0.5 mg/dL (0.2-1.0) D 03/25/17 06:30 AST 13 U/L (15-37) L D 03/25/17 06:30 ALT 26 U/L (12-78) D 03/25/17 06:30 Alkaline Phosphatase 67 U/L (45-117) 03/25/17 06:30 Total Protein 6.9 g/dl (6.4-8.2) 03/25/17 06:30 Albumin 3.7 g/dl (3.4-5.0) 03/25/17 06:30 CT head reviewed Plan: 66 year old female, with a significant past medical history of anemia, asthma, COPD on O2, sleep apnea on CPAP, HTN, hyperlipidemia, DM, CHF, CAD x2 stents, afib on coumadin, mitral valve replacement, CVA, spinal stenosis who presents to the emergency department with cough for about 2 weeks. The patient reports having intermittent fever and cough. She was admitted for further management and has been having intermittent paresthesias. States they occu in her L hand, R foot, no specific distribution. States they've been occuring for "a long time ". Can be radiculopathy, possibly cervical. Unclear if possible carpal tunnel. She sees Dr. Carranza as outpatient and I am covering for him in the hospital. Discussed with her that EMG would be indicated and can be done as outpatient. Would be preferred to have Dr. Carranza complete this in his office and she was in agreement. Symptoms self resolve and not acute. Continue current mgmt regarding pulmonary condition. Tight glycemic control, maintain euglycemic level as diabetic neuropathy also to be considered.
--- NOTE | 2017-03-29 10:45 | PN ---
Progress Note (short form) - Note Progress Note: PULMONARY Breathing slowly improving. +cough with clear sputum. No fevers or chills. Last Vital Signs Temp Pulse Resp BP Pulse Ox 97.3 F L 60 20 127/58 99 03/29/17 05:54 03/29/17 09:39 03/29/17 05:54 03/29/17 05:54 03/29/17 09:00 Gen: mildly tachypneic with speaking Heart: RRR Lung: better air movement, less rhonchi, wheezes Abd: soft, nontender Ext: no edema CBC, BMP 03/28/17 06:00 03/28/17 06:00 Active Medications Acetaminophen (Tylenol -) 650 mg PO Q6H PRN PRN Reason: FEVER OR PAIN Acetylcysteine (Mucomyst 20 Oral / Inh Use Only*) 800 mg NEB RBID [facility] Last Admin: 03/29/17 09:03 Dose: 800 mg Albuterol Sulfate (Ventolin 0.083% Nebulizer Soln -) 1 amp NEB Q4H PRN PRN Reason: SHORT OF BREATH/WHEEZING Albuterol Sulfate (Ventolin 0.083% Nebulizer Soln -) 1 amp NEB RBID [facility] Last Admin: 03/29/17 09:04 Dose: 1 amp Artificial Tears (Artificial Tears) 1 drop OU BID PRN PRN Reason: PRN DRY EYES Last Admin: 03/29/17 09:36 Dose: 1 drop Budesonide (Pulmicort 0.25 Mg Nebulizer -) 1 amp NEB BID [facility] Last Admin: 03/28/17 21:30 Dose: 1 amp Bupropion HCl (Wellbutrin Xl -) 300 mg PO DAILY [facility] Last Admin: 03/29/17 09:37 Dose: 300 mg Carbidopa/Levodopa (Sinemet 25/100 -) 1 each PO HS [facility] Last Admin: 03/28/17 21:23 Dose: 1 each Cholecalciferol (Vitamin D3 -) 1,000 unit PO DAILY [facility] Last Admin: 03/29/17 09:39 Dose: 1,000 unit Citalopram Hydrobromide (Celexa -) 10 mg PO DAILY [facility] Last Admin: 03/29/17 09:39 Dose: 10 mg Digoxin (Lanoxin -) 0.125 mg PO DAILY [facility] Last Admin: 01/11/18 09:39 Dose: 0.125 mg Erythromycin (Erythromycin 0.5% Eye Ointment) 1 applic OU DAILY [facility] Last Admin: 03/29/17 09:40 Dose: 1 applic Ferrous Sulfate (Feosol -) 325 mg PO DAILY [facility] Last Admin: 03/29/17 09:39 Dose: 325 mg Guaifenesin/Codeine Phosphate (Robitussin Ac -) 10 ml PO Q8H PRN PRN Reason: COUGH Last Admin: 03/29/17 09:38 Dose: 10 ml Insulin Aspart (Novolog Vial Sliding Scale -) 1 vial SQ TIDAC [facility] PRN Reason: Protocol Last Admin: 03/29/17 06:25 Dose: 6 units Insulin Detemir (Levemir Vial) 34 units SQ [facility] Last Admin: 03/28/17 21:22 Dose: 34 unit Lidocaine (Lidoderm Patch -) 1 patch TP DAILY [facility] Last Admin: 03/29/17 09:39 Dose: 1 patch Methylprednisolone Sodium Succinate (Solu-Medrol -) 40 mg IVPUSH Q8H-IV [facility] Last Admin: 03/29/17 09:36 Dose: 40 mg Miscellaneous (Lidoderm Patch Removal) 1 each MC DAILY@2200 [facility] Last Admin: 03/28/17 21:25 Dose: 1 each Montelukast Sodium (Singulair -) 10 mg PO [facility] Last Admin: 03/28/17 21:24 Dose: 10 mg Non-Formulary Medication (Ketotifen Fumarate [Eye Itch Relief]) 1 drop OU BID [facility] Last Admin: 03/29/17 09:41 Dose: 1 drop Oxycodone HCl (Roxicodone -) 5 mg PO Q6H PRN PRN Reason: PAIN LEVEL 6-10 Pantoprazole Sodium (Protonix -) 40 mg PO DAILY [facility] Last Admin: 03/29/17 09:39 Dose: 40 mg Polyethylene Glycol (Miralax (For Daily Use) -) 17 gm PO DAILY [facility] Last Admin: 03/28/17 09:04 Dose: 17 grams Pramipexole Dihydrochloride (Mirapex -) 1.5 mg PO [facility] Last Admin: 03/28/17 21:23 Dose: 1.5 mg Pregabalin (Lyrica -) 25 mg PO BID [facility] Last Admin: 03/29/17 09:36 Dose: 25 mg Ranolazine (Ranexa -) 500 mg PO BID [facility] Last Admin: 03/29/17 09:36 Dose: 500 mg Senna (Senna -) 2 tab PO HS [facility] Last Admin: 03/28/17 21:23 Dose: 2 tab Topiramate (Topamax -) 150 mg PO BID [facility] Last Admin: 03/29/17 09:37 Dose: 150 mg Torsemide (Demadex -) 40 mg PO DAILY [facility] Last Admin: 03/29/17 09:39 Dose: 40 mg Verapamil HCl (Calan Sr -) 240 mg PO DAILY [facility] Last Admin: 03/29/17 09:38 Dose: 240 mg Warfarin Sodium 10 mg/ (Warfarin Sodium 2 mg) 12 mg PO DAILY@1800 [facility] Last Admin: 03/27/17 19:38 Dose: 12 mg A/P Acute COPD Exacerbation Atrial Fibrillation CAD Lupus CHF - slow medrol taper - inhaled bronchodilators standing and PRN - O2 to keep SpO2 >90% - completed empiric antibiotics - rate controlled - continue anticoagulation
[2017-03-29] MEDS: POLYETHYLENE GLYCOL 3350 119 GM BTL PO SCH (10:47)
[2017-03-29] MEDS: BUDESONIDE 0.25 MG/2ML INH SUSP VIAL NEB SCH ×2 (11:30→22:20)
--- NOTE | 2017-03-29 11:50 | PN ---
Progress Note, Physician Chief Complaint: patient seen and examined has cough on iv steroids says breathing slightly better - Current Medication List Current Medications: Active Medications Acetaminophen (Tylenol -) 650 mg PO Q6H PRN PRN Reason: FEVER OR PAIN Acetylcysteine (Mucomyst 20 Oral / Inh Use Only*) 800 mg NEB RBID [facility] Last Admin: 03/29/17 09:03 Dose: 800 mg Albuterol Sulfate (Ventolin 0.083% Nebulizer Soln -) 1 amp NEB Q4H PRN PRN Reason: SHORT OF BREATH/WHEEZING Albuterol Sulfate (Ventolin 0.083% Nebulizer Soln -) 1 amp NEB RBID [facility] Last Admin: 03/29/17 09:04 Dose: 1 amp Artificial Tears (Artificial Tears) 1 drop OU BID PRN PRN Reason: PRN DRY EYES Last Admin: 03/29/17 09:36 Dose: 1 drop Budesonide (Pulmicort 0.25 Mg Nebulizer -) 1 amp NEB BID [facility] Last Admin: 03/28/17 21:30 Dose: 1 amp Bupropion HCl (Wellbutrin Xl -) 300 mg PO DAILY [facility] Last Admin: 03/29/17 09:37 Dose: 300 mg Carbidopa/Levodopa (Sinemet 25/100 -) 1 each PO HS [facility] Last Admin: 03/28/17 21:23 Dose: 1 each Cholecalciferol (Vitamin D3 -) 1,000 unit PO DAILY [facility] Last Admin: 03/29/17 09:39 Dose: 1,000 unit Citalopram Hydrobromide (Celexa -) 10 mg PO DAILY [facility] Last Admin: 03/29/17 09:39 Dose: 10 mg Digoxin (Lanoxin -) 0.125 mg PO DAILY [facility] Last Admin: 03/29/17 09:39 Dose: 0.125 mg Erythromycin (Erythromycin 0.5% Eye Ointment) 1 applic OU DAILY [facility] Last Admin: 03/29/17 09:40 Dose: 1 applic Ferrous Sulfate (Feosol -) 325 mg PO DAILY [facility] Last Admin: 03/29/17 09:39 Dose: 325 mg Guaifenesin/Codeine Phosphate (Robitussin Ac -) 10 ml PO Q8H PRN PRN Reason: COUGH Last Admin: 03/29/17 09:38 Dose: 10 ml Insulin Aspart (Novolog Vial Sliding Scale -) 1 vial SQ TIDAC [facility] PRN Reason: Protocol Last Admin: 03/29/17 06:25 Dose: 6 units Insulin Detemir (Levemir Vial) 34 units SQ [facility] Last Admin: 03/28/17 21:22 Dose: 34 unit Lidocaine (Lidoderm Patch -) 1 patch TP DAILY [facility] Last Admin: 03/29/17 09:39 Dose: 1 patch Methylprednisolone Sodium Succinate (Solu-Medrol -) 40 mg IVPUSH Q8H-IV [facility] Last Admin: 03/29/17 09:36 Dose: 40 mg Miscellaneous (Lidoderm Patch Removal) 1 each MC DAILY@2200 [facility] Last Admin: 03/28/17 21:25 Dose: 1 each Montelukast Sodium (Singulair -) 10 mg PO HS [facility] Last Admin: 03/28/17 21:24 Dose: 10 mg Non-Formulary Medication (Ketotifen Fumarate [Eye Itch Relief]) 1 drop OU BID [facility] Last Admin: 03/29/17 09:41 Dose: 1 drop Oxycodone HCl (Roxicodone -) 5 mg PO Q6H PRN PRN Reason: PAIN LEVEL 6-10 Pantoprazole Sodium (Protonix -) 40 mg PO DAILY [facility] Last Admin: 03/29/17 09:39 Dose: 40 mg Polyethylene Glycol (Miralax (For Daily Use) -) 17 gm PO DAILY [facility] Last Admin: 03/29/17 10:47 Dose: Not Given Pramipexole Dihydrochloride (Mirapex -) 1.5 mg PO [facility] Last Admin: 03/28/17 21:23 Dose: 1.5 mg Pregabalin (Lyrica -) 25 mg PO BID [facility] Last Admin: 03/29/17 09:36 Dose: 25 mg Ranolazine (Ranexa -) 500 mg PO BID [facility] Last Admin: 03/29/17 09:36 Dose: 500 mg Senna (Senna -) 2 tab PO [facility] Last Admin: 03/28/17 21:23 Dose: 2 tab Topiramate (Topamax -) 150 mg PO BID [facility] Last Admin: 03/29/17 09:37 Dose: 150 mg Torsemide (Demadex -) 40 mg PO DAILY [facility] Last Admin: 03/29/17 09:39 Dose: 40 mg Verapamil HCl (Calan Sr -) 240 mg PO DAILY [facility] Last Admin: 03/29/17 09:38 Dose: 240 mg Warfarin Sodium 10 mg/ (Warfarin Sodium 2 mg) 12 mg PO DAILY@1800 [facility] Last Admin: 03/27/17 19:38 Dose: 12 mg - Objective Vital Signs: Vital Signs Temperature 97.3 F L 03/29/17 05:54 Pulse Rate 60 03/29/17 09:39 Respiratory Rate 20 03/29/17 05:54 Blood Pressure 127/58 03/29/17 05:54 O2 Sat by Pulse Oximetry (%) 99 03/29/17 09:00 Constitutional: Yes: Calm Cardiovascular: Yes: S1, S2 Respiratory: Yes: On Nasal O2, Rhonchi, Wheezes Gastrointestinal: Yes: Normal Bowel Sounds, Soft Edema: No Neurological: Yes: Alert, Oriented Labs: CBC, BMP 03/28/17 06:00 03/28/17 06:00 INR, PTT INR 2.11 (0.82-1.09) H D 03/28/17 06:00 Problem List - Problems (1) Afib Assessment/Plan: on verampamil and digoxin Code(s): I48.91 - UNSPECIFIED ATRIAL FIBRILLATION Qualifiers: Atrial fibrillation type: paroxysmal Qualified Code(s): I48.0 - Paroxysmal atrial fibrillation (2) COPD (chronic obstructive pulmonary disease) Assessment/Plan: iv steroids q8 for now if better tmw will taper to bid nebulizer pulmicort plan for pulm rehab at [place] Code(s): J44.9 - CHRONIC OBSTRUCTIVE PULMONARY DISEASE, UNSPECIFIED Qualifiers: COPD type: COPD with acute exacerbation Qualified Code(s): J44.1 - Chronic obstructive pulmonary disease with (acute) exacerbation (3) Diabetes Assessment/Plan: insulin bgm will improve with steroid taper Code(s): E11.9 - TYPE 2 DIABETES MELLITUS WITHOUT COMPLICATIONS Qualifiers: Diabetes mellitus type: type 2 Diabetes mellitus complication status: with neurologic complications (4) Mitral valve replaced Assessment/Plan: Coumadin INR goal 2.5-3.5 inr ordered for today and tmw Code(s): Z95.2 - PRESENCE OF PROSTHETIC HEART VALVE (5) CAD (coronary artery disease) Assessment/Plan: s/p PCI continue ranexa no Asa bc of couamdin no statin bc of prior intolerance no BB bc of wheezing on verampamil Code(s): I25.10 - ATHSCL HEART DISEASE OF [place] CORONARY ARTERY W/O ANG PCTRS (6) CHF (congestive heart failure) Assessment/Plan: chronic diastolic HF on torsemide Code(s): I50.9 - HEART FAILURE, UNSPECIFIED Assessment/Plan plan to go to [place] [facility] for rehab once iv steroids change to po, accepted to [facility] will go once on oral steroids no ready today to change iv steroids to po INR pending for today
[2017-03-29 13:18] LABS: INR 3.49 (0.82-1.09); PROTHROMBIN TIME (PATIENT) 39.4 SEC (9.98-11.88)
[2017-03-29] MEDS ORDERED: PT OWN MED DRAWER 7, Y5N ONE (20:55)
[2017-03-29] MEDS: INSULIN DETEMIR 100 UNITS/ML MDV SQ SCH (22:06)
[2017-03-29] MEDS: SENNOSIDES 8.6MG TABLET (FP) PO SCH (22:07)
[2017-03-29] MEDS: PRAMIPEXOLE DIHYDROCHLORIDE 1.5 MG TABLET PO SCH (22:07)
[2017-03-29] MEDS: LIDOCAINE PATCH REMOVAL MC SCH (22:07)
[2017-03-29] MEDS: CARBIDOPA/LEVODOPA 25/100 TABLET (FP) PO SCH (22:08)
[2017-03-29] MEDS: MONTELUKAST NA 10 MG TABLET PO SCH (22:08)
[2017-03-30] MEDS: methylPREDNISolone NA SUCC 40 MG/1 ML VIAL IVPUSH SCH ×3 (02:04→18:15)
[2017-03-30] MEDS: guaiFENesin/CODEINE 10 ML UNIT-DOSE CUPS PO PRN ×2 (04:27→14:00)
[2017-03-30] MEDS: INSULIN SLIDING SCALE (NOVOLOG) 1 VIAL SQ SCH ×3 (06:27→16:30)
[2017-03-30 08:16] LABS: INR 2.68 (0.82-1.09); PROTHROMBIN TIME (PATIENT) 30.3 SEC (9.98-11.88)
[2017-03-30] MEDS: ACETYLCYSTEINE 20% 200MG/ML 4 ML VIAL *FOR ORAL / INH USE ONLY NEB SCH ×2 (09:30→21:18)
[2017-03-30] MEDS: ALBUTEROL SO4 0.083% IH SOL 2.5 MG/3 ML VIAL.NEB. NEB SCH ×2 (09:30→21:18)
[2017-03-30] MEDS: BUDESONIDE 0.25 MG/2ML INH SUSP VIAL NEB SCH ×2 (09:31→21:30)
--- NOTE | 2017-03-30 09:44 | PN ---
Progress Note (short form) - Note Progress Note: Neurology History of Present Illness The patient is a 66 year old female, with a significant past medical history of anemia, asthma, COPD on O2, sleep apnea on CPAP, HTN, hyperlipidemia, DM, CHF, CAD x2 stents, afib on coumadin, mitral valve replacement, CVA, spinal stenosis who presents to the emergency department with cough for about 2 weeks. The patient reports having intermittent fever and cough. She was admitted for further management and has been having intermittent paresthesias. States they occu in her L hand, R foot, no specific distribution. States they've been occuring for "a long time". She sees Dr. Carranza as outpatient and I am covering for him in the hospital. Discussed with her that EMG would be indicated and can be done as outpatient. Would be preferred to have Dr. Carranza complete this in his office and she was in agreement. Symptoms self resolve and not acute. No further progression overnight and neurologically stable today. She is c/o continued respiratory difficulty which is being actively managed. Active Medications Acetaminophen (Tylenol -) 650 mg PO Q6H PRN PRN Reason: FEVER OR PAIN Acetylcysteine (Mucomyst 20 Oral / Inh Use Only*) 800 mg NEB RBID [facility] Last Admin: 03/30/17 09:30 Dose: 800 mg Albuterol Sulfate (Ventolin 0.083% Nebulizer Soln -) 1 amp NEB Q4H PRN PRN Reason: SHORT OF BREATH/WHEEZING Albuterol Sulfate (Ventolin 0.083% Nebulizer Soln -) 1 amp NEB RBID [facility] Last Admin: 03/30/17 09:30 Dose: 1 amp Artificial Tears (Artificial Tears) 1 drop OU BID PRN PRN Reason: PRN DRY EYES Last Admin: 03/29/17 09:36 Dose: 1 drop Budesonide (Pulmicort 0.25 Mg Nebulizer -) 1 amp NEB BID [facility] Last Admin: 03/30/17 09:31 Dose: 1 amp Bupropion HCl (Wellbutrin Xl -) 300 mg PO DAILY [facility] Last Admin: 03/29/17 09:37 Dose: 300 mg Carbidopa/Levodopa (Sinemet 25/100 -) 1 each PO HS [facility] Last Admin: 03/29/17 22:08 Dose: 1 each Cholecalciferol (Vitamin D3 -) 1,000 unit PO DAILY [facility] Last Admin: 03/29/17 09:39 Dose: 1,000 unit Citalopram Hydrobromide (Celexa -) 10 mg PO DAILY [facility] Last Admin: 03/29/17 09:39 Dose: 10 mg Digoxin (Lanoxin -) 0.125 mg PO DAILY [facility] Last Admin: 03/29/17 09:39 Dose: 0.125 mg Erythromycin (Erythromycin 0.5% Eye Ointment) 1 applic OU DAILY [facility] Last Admin: 03/29/17 09:40 Dose: 1 applic Ferrous Sulfate (Feosol -) 325 mg PO DAILY [facility] Last Admin: 03/29/17 09:39 Dose: 325 mg Guaifenesin/Codeine Phosphate (Robitussin Ac -) 10 ml PO Q8H PRN PRN Reason: COUGH Last Admin: 03/30/17 04:27 Dose: 10 ml Insulin Aspart (Novolog Vial Sliding Scale -) 1 vial SQ TIDAC [facility] PRN Reason: Protocol Last Admin: 03/30/17 06:27 Dose: 4 units Insulin Detemir (Levemir Vial) 38 units SQ [facility] Last Admin: 03/29/17 22:06 Dose: 38 units Lidocaine (Lidoderm Patch -) 1 patch TP DAILY [facility] Last Admin: 03/29/17 09:39 Dose: 1 patch Methylprednisolone Sodium Succinate (Solu-Medrol -) 40 mg IVPUSH Q8H-IV [facility] Last Admin: 03/30/17 02:04 Dose: 40 mg Miscellaneous (Lidoderm Patch Removal) 1 each MC DAILY@2200 [facility] Last Admin: 03/29/17 22:07 Dose: 1 each Montelukast Sodium (Singulair -) 10 mg PO HS [facility] Last Admin: 03/29/17 22:08 Dose: 10 mg Non-Formulary Medication (Ketotifen Fumarate [Eye Itch Relief]) 1 drop OU BID [facility] Last Admin: 03/29/17 22:09 Dose: 1 drop Oxycodone HCl (Roxicodone -) 5 mg PO Q6H PRN PRN Reason: PAIN LEVEL 6-10 Pantoprazole Sodium (Protonix -) 40 mg PO DAILY [facility] Last Admin: 03/29/17 09:39 Dose: 40 mg Polyethylene Glycol (Miralax (For Daily Use) -) 17 gm PO DAILY [facility] Last Admin: 03/29/17 10:47 Dose: Not Given Pramipexole Dihydrochloride (Mirapex -) 1.5 mg PO [facility] Last Admin: 03/29/17 22:07 Dose: 1.5 mg Pregabalin (Lyrica -) 25 mg PO BID [facility] Last Admin: 03/29/17 22:06 Dose: 25 mg Ranolazine (Ranexa -) 500 mg PO BID [facility] Last Admin: 03/29/17 22:07 Dose: 500 mg Senna (Senna -) 2 tab PO HS [facility] Last Admin: 03/29/17 22:07 Dose: 2 tab Topiramate (Topamax -) 150 mg PO BID [facility] Last Admin: 03/29/17 22:08 Dose: 150 mg Torsemide (Demadex -) 40 mg PO DAILY [facility] Last Admin: 03/29/17 09:39 Dose: 40 mg Verapamil HCl (Calan Sr -) 240 mg PO DAILY [facility] Last Admin: 03/29/17 09:38 Dose: 240 mg Warfarin Sodium 10 mg/ (Warfarin Sodium 2 mg) 12 mg PO DAILY@1800 [facility] *Physical Exam Vital Signs Period Temp Pulse Resp BP Sys/Wise Pulse Ox Last 24 Hr 97.3 F-98.3 F 58-65 20-20 115-154/58-90 95-99 GENERAL: Awake, alert, and fully oriented, in no acute distress. Morbidly obese. HEAD: No signs of trauma EYES: PERRLA, EOMI, sclera anicteric, conjunctiva clear ENT: Auricles normal inspection, hearing grossly normal, nares patent, oropharynx clear without exudates. Dry mucosa NECK: Normal ROM, supple, no lymphadenopathy, JVD, or masses LUNGS: Dec air entry B/L, +coarse crackles at the L base. No wheezes, and no crackles HEART: Regular rate and rhythm, normal S1 and S2, no murmurs, rubs or gallops ABDOMEN: Soft, nontender, normoactive bowel sounds. No guarding, no rebound. No masses EXTREMITIES: Normal range of motion, no edema. No clubbing or cyanosis. No cords, erythema, or tenderness NEUROLOGICAL: Cranial nerves II through XII grossly intact. Normal speech, normal gait SKIN: Warm, Dry, normal turgor, no rashes or lesions noted. CBCD WBC 16.9 K/mm3 (4.0-10.0) H 03/28/17 06:00 RBC 4.67 M/mm3 (3.60-5.2) 03/28/17 06:00 Hgb 13.4 GM/dL (10.7-15.3) 03/28/17 06:00 Hct 42.3 % (32.4-45.2) 03/28/17 06:00 MCV 90.6 fl (80-96) 03/28/17 06:00 MCHC 31.6 g/dl (32.0-36.0) L 03/28/17 06:00 RDW 16.8 % (11.6-15.6) H 03/28/17 06:00 Plt Count 254 K/MM3 (134-434) 03/28/17 06:00 MPV 10.5 fl (7.5-11.1) 03/28/17 06:00 CMP Sodium 136 mmol/L (136-145) 03/28/17 06:00 Potassium 3.8 mmol/L (3.5-5.1) 03/28/17 06:00 Chloride 96 mmol/L (98-107) L 03/28/17 06:00 Carbon Dioxide 28 mmol/L (21-32) 03/28/17 06:00 Anion Gap 12 (8-16) 03/28/17 06:00 BUN 44 mg/dL (7-18) H 03/28/17 06:00 Creatinine 1.4 mg/dL (0.55-1.02) H 03/28/17 06:00 Creat Clearance w eGFR 34.85 (>60) 03/25/17 06:30 Calcium 9.0 mg/dL (8.5-10.1) 03/28/17 06:00 Total Bilirubin 0.5 mg/dL (0.2-1.0) D 03/25/17 06:30 AST 13 U/L (15-37) L D 03/25/17 06:30 ALT 26 U/L (12-78) D 03/25/17 06:30 Alkaline Phosphatase 67 U/L (45-117) 03/25/17 06:30 Total Protein 6.9 g/dl (6.4-8.2) 03/25/17 06:30 Albumin 3.7 g/dl (3.4-5.0) 03/25/17 06:30 CT head reviewed Plan: 66 year old female, with a significant past medical history of anemia, asthma, COPD on O2, sleep apnea on CPAP, HTN, hyperlipidemia, DM, CHF, CAD x2 stents, afib on coumadin, mitral valve replacement, CVA, spinal stenosis who presents to the emergency department with cough for about 2 weeks. The patient reports having intermittent fever and cough. She was admitted for further management and has been having intermittent paresthesias. States they occur in her L hand, R foot, no specific distribution. States they've been occuring for "a long time ". Can be radiculopathy, possibly cervical. Unclear if possible carpal tunnel. She sees Dr. Carranza as outpatient and I am covering for him in the hospital. Discussed with her that EMG would be indicated and can be done as outpatient. Would be preferred to have Dr. Carranza complete this in his office and she was in agreement. Symptoms self resolve and not acute. Continue current mgmt regarding pulmonary condition. Tight glycemic control, maintain euglycemic level as diabetic neuropathy also to be considered.
[2017-03-30] MEDS: ERYTHROMYCIN 0.5% OPHTHALMIC OINTMENT 3.5 GM TUBE OU SCH (10:00)
[2017-03-30] MEDS: KETOTIFEN FUMARATE OU SCH ×2 (10:01→22:47)
--- NOTE | 2017-03-30 10:23 | PN ---
Progress Note, Physician Chief Complaint: last night patient had tough time sleeping was coughing alot - Current Medication List Current Medications: Active Medications Acetaminophen (Tylenol -) 650 mg PO Q6H PRN PRN Reason: FEVER OR PAIN Acetylcysteine (Mucomyst 20 Oral / Inh Use Only*) 800 mg NEB RBID [facility] Last Admin: 03/30/17 09:30 Dose: 800 mg Albuterol Sulfate (Ventolin 0.083% Nebulizer Soln -) 1 amp NEB Q4H PRN PRN Reason: SHORT OF BREATH/WHEEZING Albuterol Sulfate (Ventolin 0.083% Nebulizer Soln -) 1 amp NEB RBID [facility] Last Admin: 03/30/17 09:30 Dose: 1 amp Artificial Tears (Artificial Tears) 1 drop OU BID PRN PRN Reason: PRN DRY EYES Last Admin: 03/29/17 09:36 Dose: 1 drop Budesonide (Pulmicort 0.25 Mg Nebulizer -) 1 amp NEB BID [facility] Last Admin: 03/30/17 09:31 Dose: 1 amp Bupropion HCl (Wellbutrin Xl -) 300 mg PO DAILY [facility] Last Admin: 03/29/17 09:37 Dose: 300 mg Carbidopa/Levodopa (Sinemet 25/100 -) 1 each PO HS [facility] Last Admin: 03/29/17 22:08 Dose: 1 each Cholecalciferol (Vitamin D3 -) 1,000 unit PO DAILY [facility] Last Admin: 03/29/17 09:39 Dose: 1,000 unit Citalopram Hydrobromide (Celexa -) 10 mg PO DAILY [facility] Last Admin: 03/29/17 09:39 Dose: 10 mg Digoxin (Lanoxin -) 0.125 mg PO DAILY [facility] Last Admin: 03/29/17 09:39 Dose: 0.125 mg Erythromycin (Erythromycin 0.5% Eye Ointment) 1 applic OU DAILY [facility] Last Admin: 03/29/17 09:40 Dose: 1 applic Ferrous Sulfate (Feosol -) 325 mg PO DAILY [facility] Last Admin: 03/29/17 09:39 Dose: 325 mg Guaifenesin/Codeine Phosphate (Robitussin Ac -) 10 ml PO Q8H PRN PRN Reason: COUGH Last Admin: 03/30/17 04:27 Dose: 10 ml Insulin Aspart (Novolog Vial Sliding Scale -) 1 vial SQ TIDAC [facility] PRN Reason: Protocol Last Admin: 03/30/17 06:27 Dose: 4 units Insulin Detemir (Levemir Vial) 38 units SQ HS [facility] Last Admin: 03/29/17 22:06 Dose: 38 units Lidocaine (Lidoderm Patch -) 1 patch TP DAILY [facility] Last Admin: 03/29/17 09:39 Dose: 1 patch Methylprednisolone Sodium Succinate (Solu-Medrol -) 40 mg IVPUSH Q8H-IV [facility] Last Admin: 03/30/17 02:04 Dose: 40 mg Miscellaneous (Lidoderm Patch Removal) 1 each MC DAILY@2200 [facility] Last Admin: 03/29/17 22:07 Dose: 1 each Montelukast Sodium (Singulair -) 10 mg PO HS [facility] Last Admin: 03/29/17 22:08 Dose: 10 mg Non-Formulary Medication (Ketotifen Fumarate [Eye Itch Relief]) 1 drop OU BID [facility] Last Admin: 03/29/17 22:09 Dose: 1 drop Oxycodone HCl (Roxicodone -) 5 mg PO Q6H PRN PRN Reason: PAIN LEVEL 6-10 Pantoprazole Sodium (Protonix -) 40 mg PO DAILY [facility] Last Admin: 03/29/17 09:39 Dose: 40 mg Polyethylene Glycol (Miralax (For Daily Use) -) 17 gm PO DAILY [facility] Last Admin: 03/29/17 10:47 Dose: Not Given Pramipexole Dihydrochloride (Mirapex -) 1.5 mg PO HS [facility] Last Admin: 03/29/17 22:07 Dose: 1.5 mg Pregabalin (Lyrica -) 25 mg PO BID [facility] Last Admin: 03/29/17 22:06 Dose: 25 mg Ranolazine (Ranexa -) 500 mg PO BID [facility] Last Admin: 03/29/17 22:07 Dose: 500 mg Senna (Senna -) 2 tab PO [facility] Last Admin: 03/29/17 22:07 Dose: 2 tab Topiramate (Topamax -) 150 mg PO BID [facility] Last Admin: 03/29/17 22:08 Dose: 150 mg Torsemide (Demadex -) 40 mg PO DAILY [facility] Last Admin: 03/29/17 09:39 Dose: 40 mg Verapamil HCl (Calan Sr -) 240 mg PO DAILY [facility] Last Admin: 03/29/17 09:38 Dose: 240 mg Warfarin Sodium 10 mg/ (Warfarin Sodium 2 mg) 12 mg PO DAILY@1800 [facility] - Objective Vital Signs: Vital Signs Temperature 97.4 F L 03/30/17 06:00 Pulse Rate 63 03/30/17 09:34 Respiratory Rate 20 03/30/17 06:00 Blood Pressure 132/58 03/30/17 06:00 O2 Sat by Pulse Oximetry (%) 96 03/30/17 09:34 Constitutional: Yes: Calm Cardiovascular: Yes: Regular Rate and Rhythm, S1, S2 Respiratory: Yes: On Nasal O2, Rhonchi Gastrointestinal: Yes: Normal Bowel Sounds, Soft Neurological: Yes: Alert, Oriented Labs: CBC, BMP 03/28/17 06:00 03/28/17 06:00 INR, PTT INR 2.68 (0.82-1.09) H 03/30/17 06:35 Problem List - Problems (1) Afib Assessment/Plan: on verampamil and digoxin Code(s): I48.91 - UNSPECIFIED ATRIAL FIBRILLATION Qualifiers: Atrial fibrillation type: paroxysmal Qualified Code(s): I48.0 - Paroxysmal atrial fibrillation (2) COPD (chronic obstructive pulmonary disease) Assessment/Plan: iv steroids taper slowly to bid today if ok with pulm nebulizer pulmicort plan for pulm rehab at [facility]- patient accepted will go once she is changed to oral steroids Code(s): J44.9 - CHRONIC OBSTRUCTIVE PULMONARY DISEASE, UNSPECIFIED Qualifiers: COPD type: COPD with acute exacerbation Qualified Code(s): J44.1 - Chronic obstructive pulmonary disease with (acute) exacerbation (3) Diabetes Assessment/Plan: insulin bgm will improve with steroid taper Code(s): E11.9 - TYPE 2 DIABETES MELLITUS WITHOUT COMPLICATIONS Qualifiers: Diabetes mellitus type: type 2 Diabetes mellitus complication status: with neurologic complications (4) Mitral valve replaced Assessment/Plan: Coumadin INR goal 2.5-3.5 inr ordered for today and tmw Code(s): Z95.2 - PRESENCE OF PROSTHETIC HEART VALVE (5) CAD (coronary artery disease) Assessment/Plan: s/p PCI continue ranexa no Asa bc of couamdin no statin bc of prior intolerance no BB bc of wheezing on verampamil Code(s): I25.10 - ATHSCL HEART DISEASE OF [place] CORONARY ARTERY W/O ANG PCTRS (6) CHF (congestive heart failure) Code(s): I50.9 - HEART FAILURE, UNSPECIFIED
[2017-03-30] MEDS: VERAPAMIL HCL 240 MG E.R. TABLET (FP) PO SCH (10:51)
[2017-03-30] MEDS: PANTOPRAZOLE 40 MG TABLET (FP) PO SCH (10:53)
[2017-03-30] MEDS: DIGOXIN 0.125 MG TABLET (FP) PO SCH (10:53)
[2017-03-30] MEDS: CITALOPRAM HYDROBROMIDE 10 MG TABLET (FP) PO SCH (10:53)
[2017-03-30] MEDS: LIDOCAINE 5% TOPICAL PATCH TP SCH (10:54)
[2017-03-30] MEDS: CHOLECALCIFEROL (VITAMIN D3) 1,000 UNIT TABLET (FP) PO SCH (10:55)
[2017-03-30] MEDS: TOPIRAMATE 100 MG TABLET PO SCH ×2 (10:56→22:53)
[2017-03-30] MEDS: FERROUS SO4 325 MG TABLET (FP) PO SCH (10:57)
[2017-03-30] MEDS: TORSEMIDE 20 MG TABLET (FP) PO SCH (11:00)
[2017-03-30] MEDS: PREGABALIN 25 MG CAPSULE PO SCH ×2 (11:00→22:52)
[2017-03-30] MEDS: RANOLAZINE E.R. 500 MG TABLET (FP) PO SCH ×2 (11:00→22:53)
[2017-03-30] MEDS ORDERED: INSULIN (NOVOLOG) ASPART 100 UNITS/ML 10ML VIAL ONE (11:41)
[2017-03-30] MEDS: POLYETHYLENE GLYCOL 3350 119 GM BTL PO SCH (11:44)
--- NOTE | 2017-03-30 12:27 | PN ---
Progress Note (short form) - Note Progress Note: PULMONARY " I HAD A BAD NIGHT WITH COUGHING" VSS/AFEBRILE ANICTERIC DIMINISHED BREATH SOUNDS B/L S1S2 OBESE NO EDEMA LABS/MEDS/NOTES/IMAGES/MICRO REVIEWED INR 2.11 (1) COPD (chronic obstructive pulmonary disease) Code(s): J44.9 - CHRONIC OBSTRUCTIVE PULMONARY DISEASE, UNSPECIFIED (2) Afib Code(s): I48.91 - UNSPECIFIED ATRIAL FIBRILLATION Qualifiers: Atrial fibrillation type: paroxysmal Qualified Code(s): I48.0 - Paroxysmal atrial fibrillation (3) Anticoagulated Code(s): Z79.01 - MANAGER GIFT (CURRENT) USE OF ANTICOAGULANTS (4) Asthma exacerbation in COPD Code(s): J44.1 - CHRONIC OBSTRUCTIVE PULMONARY DISEASE W (ACUTE) EXACERBATION; J45.901 - UNSPECIFIED ASTHMA WITH (ACUTE) EXACERBATION (5) CAD (coronary artery disease) Code(s): I25.10 - ATHSCL HEART DISEASE OF [place] CORONARY ARTERY W/O ANG PCTRS (6) CHF (congestive heart failure) Code(s): I50.9 - HEART FAILURE, UNSPECIFIED Assessment/Plan O2/NIPPV HS/PRN/BRONCHODILATORS/IV STEROIDS ADJUSTED ANTIBIOTICS CONTINUE PT SUGGEST PULMONARY REHAB UPON DISCHARGE AT INPATIENT SNF Maki WAYNE MD Problem List - Problems (1) COPD (chronic obstructive pulmonary disease) Code(s): J44.9 - CHRONIC OBSTRUCTIVE PULMONARY DISEASE, UNSPECIFIED Qualifiers: COPD type: COPD with acute exacerbation Qualified Code(s): J44.1 - Chronic obstructive pulmonary disease with (acute) exacerbation (2) Afib Code(s): I48.91 - UNSPECIFIED ATRIAL FIBRILLATION Qualifiers: Atrial fibrillation type: paroxysmal Qualified Code(s): I48.0 - Paroxysmal atrial fibrillation (3) Anticoagulated Code(s): Z79.01 - MANAGER GIFT (CURRENT) USE OF ANTICOAGULANTS (4) Asthma exacerbation in COPD Code(s): J44.1 - CHRONIC OBSTRUCTIVE PULMONARY DISEASE W (ACUTE) EXACERBATION; J45.901 - UNSPECIFIED ASTHMA WITH (ACUTE) EXACERBATION (5) CAD (coronary artery disease) Code(s): I25.10 - ATHSCL HEART DISEASE OF [place] CORONARY ARTERY W/O ANG PCTRS (6) CHF (congestive heart failure) Code(s): I50.9 - HEART FAILURE, UNSPECIFIED
[2017-03-30] MEDS ORDERED: WARFARIN NA 10 MG TABLET (FP) PO SCH (18:00)
[2017-03-30] MEDS ORDERED: WARFARIN NA 10 MG TABLET (FP) ONE (18:13)
[2017-03-30] MEDS ORDERED: WARFARIN NA 1 MG TABLET (FP) ONE (18:13)
[2017-03-30] MEDS: WARFARIN NA 10 MG, WARFARIN NA 2 MG PO SCH (18:15)
[2017-03-30] MEDS: INSULIN DETEMIR 100 UNITS/ML MDV SQ SCH (22:51)
[2017-03-30] MEDS: LIDOCAINE PATCH REMOVAL MC SCH (22:51)
[2017-03-30] MEDS: MONTELUKAST NA 10 MG TABLET PO SCH (22:52)
[2017-03-30] MEDS: SENNOSIDES 8.6MG TABLET (FP) PO SCH (22:52)
[2017-03-30] MEDS: CARBIDOPA/LEVODOPA 25/100 TABLET (FP) PO SCH (22:53)
[2017-03-30] MEDS: PRAMIPEXOLE DIHYDROCHLORIDE 1.5 MG TABLET PO SCH (22:53)
[2017-03-30] MEDS: oxyCODONE HCL 5 MG TABLET PO PRN (22:54)
[2017-03-31] MEDS: ALBUTEROL SO4 0.083% IH SOL 2.5 MG/3 ML VIAL.NEB. NEB PRN (01:10)
[2017-03-31] MEDS: methylPREDNISolone NA SUCC 40 MG/1 ML VIAL IVPUSH SCH ×3 (02:13→17:53)
[2017-03-31] MEDS ORDERED: INSULIN (NOVOLOG) ASPART 100 UNITS/ML 10ML VIAL ONE ×4 (05:31→18:22)
[2017-03-31] MEDS ORDERED: PT OWN MED DRAWER 7, Y5N ONE (05:31)
[2017-03-31] MEDS: INSULIN SLIDING SCALE (NOVOLOG) 1 VIAL SQ SCH ×3 (06:11→17:40)
[2017-03-31 08:23] LABS: INR 2.06 (0.82-1.09); PROTHROMBIN TIME (PATIENT) 23.3 SEC (9.98-11.88)
[2017-03-31] MEDS: ALBUTEROL SO4 0.083% IH SOL 2.5 MG/3 ML VIAL.NEB. NEB SCH ×2 (08:38→22:05)
[2017-03-31] MEDS: ACETYLCYSTEINE 20% 200MG/ML 4 ML VIAL *FOR ORAL / INH USE ONLY NEB SCH ×2 (08:38→22:05)
[2017-03-31] MEDS: guaiFENesin/CODEINE 10 ML UNIT-DOSE CUPS PO PRN (10:01)
[2017-03-31] MEDS: LIDOCAINE 5% TOPICAL PATCH TP SCH (10:01)
[2017-03-31] MEDS: TORSEMIDE 20 MG TABLET (FP) PO SCH (10:02)
[2017-03-31] MEDS: CHOLECALCIFEROL (VITAMIN D3) 1,000 UNIT TABLET (FP) PO SCH (10:02)
[2017-03-31] MEDS: CITALOPRAM HYDROBROMIDE 10 MG TABLET (FP) PO SCH (10:02)
[2017-03-31] MEDS: PREGABALIN 25 MG CAPSULE PO SCH ×2 (10:03→23:00)
[2017-03-31] MEDS: DIGOXIN 0.125 MG TABLET (FP) PO SCH (10:03)
[2017-03-31] MEDS: FERROUS SO4 325 MG TABLET (FP) PO SCH (10:03)
[2017-03-31] MEDS: PANTOPRAZOLE 40 MG TABLET (FP) PO SCH (10:03)
[2017-03-31] MEDS: RANOLAZINE E.R. 500 MG TABLET (FP) PO SCH ×2 (10:03→23:01)
[2017-03-31] MEDS: VERAPAMIL HCL 240 MG E.R. TABLET (FP) PO SCH (10:04)
[2017-03-31] MEDS: ERYTHROMYCIN 0.5% OPHTHALMIC OINTMENT 3.5 GM TUBE OU SCH (10:05)
[2017-03-31] MEDS: KETOTIFEN FUMARATE OU SCH ×2 (10:07→23:04)
[2017-03-31] MEDS: TOPIRAMATE 100 MG TABLET PO SCH ×2 (10:07→23:02)
[2017-03-31] MEDS: POLYETHYLENE GLYCOL 3350 119 GM BTL PO SCH (10:09)
[2017-03-31] MEDS: BUDESONIDE 0.25 MG/2ML INH SUSP VIAL NEB SCH ×2 (10:15→22:05)
--- NOTE | 2017-03-31 11:51 | PN ---
Progress Note, Physician Chief Complaint: AWAKE ALERT STILL HAS RESP DIFFICULTY ON 02 EVENTS AND NOTES REVIEWED - Current Medication List Current Medications: Active Medications Acetaminophen (Tylenol -) 650 mg PO Q6H PRN PRN Reason: FEVER OR PAIN Acetylcysteine (Mucomyst 20 Oral / Inh Use Only*) 800 mg NEB RBID [facility] Last Admin: 03/31/17 08:38 Dose: 800 mg Albuterol Sulfate (Ventolin 0.083% Nebulizer Soln -) 1 amp NEB Q4H PRN PRN Reason: SHORT OF BREATH/WHEEZING Last Admin: 03/31/17 01:10 Dose: 1 amp Albuterol Sulfate (Ventolin 0.083% Nebulizer Soln -) 1 amp NEB RBID [facility] Last Admin: 03/31/17 08:38 Dose: 1 amp Artificial Tears (Artificial Tears) 1 drop OU BID PRN PRN Reason: PRN DRY EYES Last Admin: 03/29/17 09:36 Dose: 1 drop Budesonide (Pulmicort 0.25 Mg Nebulizer -) 1 amp NEB BID [facility] Last Admin: 03/31/17 10:15 Dose: 1 amp Bupropion HCl (Wellbutrin Xl -) 300 mg PO DAILY [facility] Last Admin: 03/31/17 10:07 Dose: 300 mg Carbidopa/Levodopa (Sinemet 25/100 -) 1 each PO HS [facility] Last Admin: 03/30/17 22:53 Dose: 1 each Cholecalciferol (Vitamin D3 -) 1,000 unit PO DAILY [facility] Last Admin: 03/31/17 10:02 Dose: 1,000 unit Citalopram Hydrobromide (Celexa -) 10 mg PO DAILY [facility] Last Admin: 03/31/17 10:02 Dose: 10 mg Digoxin (Lanoxin -) 0.125 mg PO DAILY [facility] Last Admin: 03/31/17 10:03 Dose: 0.125 mg Erythromycin (Erythromycin 0.5% Eye Ointment) 1 applic OU DAILY [facility] Last Admin: 03/31/17 10:05 Dose: 1 applic Ferrous Sulfate (Feosol -) 325 mg PO DAILY [facility] Last Admin: 03/31/17 10:03 Dose: 325 mg Guaifenesin/Codeine Phosphate (Robitussin Ac -) 10 ml PO Q8H PRN PRN Reason: COUGH Last Admin: 01/13/18 10:01 Dose: 10 ml Insulin Aspart (Novolog Vial Sliding Scale -) 1 vial SQ TIDAC [facility] PRN Reason: Protocol Last Admin: 03/31/17 06:11 Dose: 6 units Insulin Detemir (Levemir Vial) 38 units SQ [facility] Last Admin: 03/30/17 22:51 Dose: 38 units Lidocaine (Lidoderm Patch -) 1 patch TP DAILY [facility] Last Admin: 03/31/17 10:01 Dose: 1 patch Methylprednisolone Sodium Succinate (Solu-Medrol -) 40 mg IVPUSH Q8H-IV [facility] Last Admin: 03/31/17 10:03 Dose: 40 mg Miscellaneous (Lidoderm Patch Removal) 1 each MC DAILY@2200 [facility] Last Admin: 03/30/17 22:51 Dose: 1 each Montelukast Sodium (Singulair -) 10 mg PO [facility] Last Admin: 03/30/17 22:52 Dose: 10 mg Non-Formulary Medication (Ketotifen Fumarate [Eye Itch Relief]) 1 drop OU BID [facility] Last Admin: 03/31/17 10:07 Dose: 1 drop Oxycodone HCl (Roxicodone -) 5 mg PO Q6H PRN PRN Reason: PAIN LEVEL 6-10 Last Admin: 03/30/17 22:54 Dose: 5 mg Pantoprazole Sodium (Protonix -) 40 mg PO DAILY [facility] Last Admin: 03/31/17 10:03 Dose: 40 mg Polyethylene Glycol (Miralax (For Daily Use) -) 17 gm PO DAILY [facility] Last Admin: 03/31/17 10:09 Dose: Not Given Pramipexole Dihydrochloride (Mirapex -) 1.5 mg PO [facility] Last Admin: 03/30/17 22:53 Dose: 1.5 mg Pregabalin (Lyrica -) 25 mg PO BID [facility] Last Admin: 03/31/17 10:03 Dose: 25 mg Ranolazine (Ranexa -) 500 mg PO BID [facility] Last Admin: 03/31/17 10:03 Dose: 500 mg Senna (Senna -) 2 tab PO [facility] Last Admin: 03/30/17 22:52 Dose: 2 tab Topiramate (Topamax -) 150 mg PO BID [facility] Last Admin: 03/31/17 10:07 Dose: 150 mg Torsemide (Demadex -) 40 mg PO DAILY [facility] Last Admin: 03/31/17 10:02 Dose: 40 mg Verapamil HCl (Calan Sr -) 240 mg PO DAILY [facility] Last Admin: 03/31/17 10:04 Dose: 240 mg Warfarin Sodium 10 mg/ (Warfarin Sodium 2 mg) 12 mg PO DAILY@1800 [facility] Last Admin: 03/30/17 18:15 Dose: 12 mg - Objective Vital Signs: Vital Signs Temperature 97.9 F 03/31/17 10:00 Pulse Rate 60 03/31/17 10:03 Respiratory Rate 18 03/31/17 10:00 Blood Pressure 150/70 03/31/17 10:00 O2 Sat by Pulse Oximetry (%) 96 03/30/17 21:00 Constitutional: Yes: Mild Distress Eyes: Yes: WNL HENT: Yes: WNL Neck: Yes: WNL Cardiovascular: Yes: WNL Respiratory: Yes: On Nasal O2, Poor Air Entry Gastrointestinal: Yes: WNL Genitourinary: Yes: WNL Musculoskeletal: Yes: WNL Extremities: Yes: WNL Edema: No Peripheral Pulses WNL: Yes Integumentary: Yes: WNL Wound/Incision: Yes: Clean/Dry Neurological: Yes: WNL ...Motor Strength: WNL Psychiatric: Yes: WNL Labs: CBC, BMP 03/28/17 06:00 03/28/17 06:00 INR, PTT INR 2.06 (0.82-1.09) H 03/31/17 06:00 Problem List - Problems (1) COPD (chronic obstructive pulmonary disease) Code(s): J44.9 - CHRONIC OBSTRUCTIVE PULMONARY DISEASE, UNSPECIFIED Qualifiers: COPD type: COPD with acute exacerbation Qualified Code(s): J44.1 - Chronic obstructive pulmonary disease with (acute) exacerbation (2) Lupus Code(s): L93.0 - DISCOID LUPUS ERYTHEMATOSUS (3) Type 2 diabetes mellitus with hyperosmolarity without nonketotic hyperglycemic-hyperosmolar coma ([facility]) Code(s): E11.00 - TYPE 2 DIAB W HYPROSM W/O NONKET HYPRGLY-HYPROS COMA ([facility]) (4) Afib Code(s): I48.91 - UNSPECIFIED ATRIAL FIBRILLATION Qualifiers: Atrial fibrillation type: paroxysmal Qualified Code(s): I48.0 - Paroxysmal atrial fibrillation (5) Anterior epistaxis Code(s): R04.0 - EPISTAXIS (6) Anticoagulated Code(s): Z79.01 - SNF (CURRENT) USE OF ANTICOAGULANTS (7) Asthma exacerbation in COPD Code(s): J44.1 - CHRONIC OBSTRUCTIVE PULMONARY DISEASE W (ACUTE) EXACERBATION; J45.901 - UNSPECIFIED ASTHMA WITH (ACUTE) EXACERBATION (8) CAD (coronary artery disease) Code(s): I25.10 - ATHSCL HEART DISEASE OF [place] CORONARY ARTERY W/O ANG PCTRS (9) CHF (congestive heart failure) Code(s): I50.9 - HEART FAILURE, UNSPECIFIED Assessment/Plan IV STEROIDS NEBS 02 SUPPORT PUL F/U OOB TO CHAIR SNF FOR PULM REHAB
--- NOTE | 2017-03-31 13:22 | PN ---
Progress Note (short form) - Note Progress Note: PULMONARY Breathing slowly improving. +cough with clear sputum. Reports improvement with robitussin/codeine. No fevers or chills. Last Vital Signs Temp Pulse Resp BP Pulse Ox 97.9 F 60 18 150/70 96 03/31/17 10:00 03/31/17 10:03 03/31/17 10:00 03/31/17 10:00 03/30/17 21:00 Gen: less tachypneic with speaking Heart: RRR Lung: better air movement, less rhonchi, wheezes Abd: soft, nontender Ext: no edema CBC, BMP 03/28/17 06:00 03/28/17 06:00 Active Medications Acetaminophen (Tylenol -) 650 mg PO Q6H PRN PRN Reason: FEVER OR PAIN Acetylcysteine (Mucomyst 20 Oral / Inh Use Only*) 800 mg NEB RBID [facility] Last Admin: 03/31/17 08:38 Dose: 800 mg Albuterol Sulfate (Ventolin 0.083% Nebulizer Soln -) 1 amp NEB Q4H PRN PRN Reason: SHORT OF BREATH/WHEEZING Last Admin: 03/31/17 01:10 Dose: 1 amp Albuterol Sulfate (Ventolin 0.083% Nebulizer Soln -) 1 amp NEB RBID [facility] Last Admin: 03/31/17 08:38 Dose: 1 amp Artificial Tears (Artificial Tears) 1 drop OU BID PRN PRN Reason: PRN DRY EYES Last Admin: 03/29/17 09:36 Dose: 1 drop Budesonide (Pulmicort 0.25 Mg Nebulizer -) 1 amp NEB BID [facility] Last Admin: 03/31/17 10:15 Dose: 1 amp Bupropion HCl (Wellbutrin Xl -) 300 mg PO DAILY [facility] Last Admin: 03/31/17 10:07 Dose: 300 mg Carbidopa/Levodopa (Sinemet 25/100 -) 1 each PO HS [facility] Last Admin: 03/30/17 22:53 Dose: 1 each Cholecalciferol (Vitamin D3 -) 1,000 unit PO DAILY [facility] Last Admin: 03/31/17 10:02 Dose: 1,000 unit Citalopram Hydrobromide (Celexa -) 10 mg PO DAILY [facility] Last Admin: 03/31/17 10:02 Dose: 10 mg Digoxin (Lanoxin -) 0.125 mg PO DAILY [facility] Last Admin: 03/31/17 10:03 Dose: 0.125 mg Erythromycin (Erythromycin 0.5% Eye Ointment) 1 applic OU DAILY [facility] Last Admin: 03/31/17 10:05 Dose: 1 applic Ferrous Sulfate (Feosol -) 325 mg PO DAILY [facility] Last Admin: 03/31/17 10:03 Dose: 325 mg Guaifenesin/Codeine Phosphate (Robitussin Ac -) 10 ml PO Q8H PRN PRN Reason: COUGH Last Admin: 03/31/17 10:01 Dose: 10 ml Insulin Aspart (Novolog Vial Sliding Scale -) 1 vial SQ TIDAC [facility] PRN Reason: Protocol Last Admin: 03/31/17 06:11 Dose: 6 units Insulin Detemir (Levemir Vial) 38 units SQ [facility] Last Admin: 03/30/17 22:51 Dose: 38 units Lidocaine (Lidoderm Patch -) 1 patch TP DAILY [facility] Last Admin: 03/31/17 10:01 Dose: 1 patch Methylprednisolone Sodium Succinate (Solu-Medrol -) 40 mg IVPUSH Q8H-IV [facility] Last Admin: 03/31/17 10:03 Dose: 40 mg Miscellaneous (Lidoderm Patch Removal) 1 each MC DAILY@2200 [facility] Last Admin: 03/30/17 22:51 Dose: 1 each Montelukast Sodium (Singulair -) 10 mg PO [facility] Last Admin: 03/30/17 22:52 Dose: 10 mg Non-Formulary Medication (Ketotifen Fumarate [Eye Itch Relief]) 1 drop OU BID [facility] Last Admin: 03/31/17 10:07 Dose: 1 drop Oxycodone HCl (Roxicodone -) 5 mg PO Q6H PRN PRN Reason: PAIN LEVEL 6-10 Last Admin: 03/30/17 22:54 Dose: 5 mg Pantoprazole Sodium (Protonix -) 40 mg PO DAILY [facility] Last Admin: 03/31/17 10:03 Dose: 40 mg Polyethylene Glycol (Miralax (For Daily Use) -) 17 gm PO DAILY [facility] Last Admin: 03/31/17 10:09 Dose: Not Given Pramipexole Dihydrochloride (Mirapex -) 1.5 mg PO [facility] Last Admin: 03/30/17 22:53 Dose: 1.5 mg Pregabalin (Lyrica -) 25 mg PO BID [facility] Last Admin: 03/31/17 10:03 Dose: 25 mg Ranolazine (Ranexa -) 500 mg PO BID [facility] Last Admin: 03/31/17 10:03 Dose: 500 mg Senna (Senna -) 2 tab PO HS [facility] Last Admin: 03/30/17 22:52 Dose: 2 tab Topiramate (Topamax -) 150 mg PO BID [facility] Last Admin: 03/31/17 10:07 Dose: 150 mg Torsemide (Demadex -) 40 mg PO DAILY [facility] Last Admin: 03/31/17 10:02 Dose: 40 mg Verapamil HCl (Calan Sr -) 240 mg PO DAILY [facility] Last Admin: 03/31/17 10:04 Dose: 240 mg Warfarin Sodium 10 mg/ (Warfarin Sodium 2 mg) 12 mg PO DAILY@1800 [facility] Last Admin: 03/30/17 18:15 Dose: 12 mg A/P Acute COPD Exacerbation Atrial Fibrillation CAD Lupus CHF - slow medrol taper - inhaled bronchodilators standing and PRN - O2 to keep SpO2 >90% - completed empiric antibiotics - rate controlled - continue anticoagulation
[2017-03-31] MEDS ORDERED: WARFARIN NA 1 MG TABLET (FP) ONE (17:44)
[2017-03-31] MEDS ORDERED: WARFARIN NA 10 MG TABLET (FP) ONE (17:45)
[2017-03-31] MEDS: WARFARIN NA 10 MG, WARFARIN NA 2 MG PO SCH (17:53)
[2017-03-31] MEDS: SENNOSIDES 8.6MG TABLET (FP) PO SCH (23:01)
[2017-03-31] MEDS: MONTELUKAST NA 10 MG TABLET PO SCH (23:02)
[2017-03-31] MEDS: CARBIDOPA/LEVODOPA 25/100 TABLET (FP) PO SCH (23:03)
[2017-03-31] MEDS: PRAMIPEXOLE DIHYDROCHLORIDE 1.5 MG TABLET PO SCH (23:04)
[2017-03-31] MEDS: LIDOCAINE PATCH REMOVAL MC SCH (23:05)
[2017-03-31] MEDS: INSULIN DETEMIR 100 UNITS/ML MDV SQ SCH (23:05)
[2017-04-01] MEDS: oxyCODONE HCL 5 MG TABLET PO PRN ×2 (00:15→09:46)
[2017-04-01] MEDS: guaiFENesin/CODEINE 10 ML UNIT-DOSE CUPS PO PRN ×2 (00:15→09:45)
[2017-04-01] MEDS: methylPREDNISolone NA SUCC 40 MG/1 ML VIAL IVPUSH SCH ×3 (02:30→23:29)
[2017-04-01] MEDS: INSULIN SLIDING SCALE (NOVOLOG) 1 VIAL SQ SCH ×3 (06:00→17:16)
[2017-04-01 07:55] LABS: INR 2.77 (0.82-1.09); PROTHROMBIN TIME (PATIENT) 31.3 SEC (9.98-11.88)
[2017-04-01] MEDS: ACETYLCYSTEINE 20% 200MG/ML 4 ML VIAL *FOR ORAL / INH USE ONLY NEB SCH ×2 (08:19→20:43)
[2017-04-01] MEDS: ALBUTEROL SO4 0.083% IH SOL 2.5 MG/3 ML VIAL.NEB. NEB SCH ×2 (08:19→20:43)
[2017-04-01] MEDS: DIGOXIN 0.125 MG TABLET (FP) PO SCH (09:45)
[2017-04-01] MEDS: RANOLAZINE E.R. 500 MG TABLET (FP) PO SCH ×2 (09:45→23:27)
[2017-04-01] MEDS: LIDOCAINE 5% TOPICAL PATCH TP SCH (09:45)
[2017-04-01] MEDS: PREGABALIN 25 MG CAPSULE PO SCH ×2 (09:45→23:26)
[2017-04-01] MEDS: PANTOPRAZOLE 40 MG TABLET (FP) PO SCH (09:46)
[2017-04-01] MEDS: FERROUS SO4 325 MG TABLET (FP) PO SCH (09:46)
[2017-04-01] MEDS: CHOLECALCIFEROL (VITAMIN D3) 1,000 UNIT TABLET (FP) PO SCH (09:46)
[2017-04-01] MEDS: CITALOPRAM HYDROBROMIDE 10 MG TABLET (FP) PO SCH (09:46)
[2017-04-01] MEDS: POLYETHYLENE GLYCOL 3350 119 GM BTL PO SCH (09:47)
[2017-04-01] MEDS: TORSEMIDE 20 MG TABLET (FP) PO SCH (09:47)
[2017-04-01] MEDS: VERAPAMIL HCL 240 MG E.R. TABLET (FP) PO SCH (09:48)
[2017-04-01] MEDS: TOPIRAMATE 100 MG TABLET PO SCH ×2 (09:49→23:26)
[2017-04-01] MEDS: ERYTHROMYCIN 0.5% OPHTHALMIC OINTMENT 3.5 GM TUBE OU SCH (09:49)
[2017-04-01] MEDS: KETOTIFEN FUMARATE OU SCH ×2 (09:50→23:28)
[2017-04-01] MEDS: BUDESONIDE 0.25 MG/2ML INH SUSP VIAL NEB SCH (10:37)
[2017-04-01 11:40] LABS: HEMATOCRIT 43.7 % (32.4-45.2); HEMOGLOBIN 13.8 GM/dL (10.7-15.3); MCH 28.9 pg (25.7-33.7); MCHC 31.6 g/dl (32.0-36.0); MEAN CELL VOLUME 91.2 fl (80-96); MEAN PLT VOLUME 10.7 fl (7.5-11.1); PLATELET COUNT 246 K/MM3 (134-434); RBC 4.79 M/mm3 (3.60-5.2); RDW 16.5 % (11.6-15.6); WHITE BLOOD COUNT 22.8 K/mm3 (4.0-10.0)
[2017-04-01 12:00] LABS: ALBUMIN 3.3 g/dl (3.4-5.0); ANION GAP 9 (8-16); BILIRUBIN,TOTAL 0.4 mg/dL (0.2-1.0); BLOOD UREA NITROGEN 41 mg/dL (7-18); CALCIUM 8.3 mg/dL (8.5-10.1); CHLORIDE 97 mmol/L (98-107); CO2 28 mmol/L (21-32); CREATININE 1.2 mg/dL (0.55-1.02); SGPT/ALT 29 U/L (12-78); SODIUM 134 mmol/L (136-145)
[2017-04-01 12:01] LABS: ALK PHOS 151 U/L (45-117)
[2017-04-01 12:02] LABS: SGOT/AST 4 U/L (15-37)
[2017-04-01 12:13] LABS: GLUCOSE,RANDOM 364 mg/dL (74-106)
--- NOTE | 2017-04-01 12:29 | PN ---
Progress Note (short form) - Note Progress Note: PULMONARY Breathing continues to slowly improve. +cough with clear sputum. No fevers or chills. Last Vital Signs Temp Pulse Resp BP Pulse Ox 97.5 F L 63 20 147/43 95 04/01/17 05:41 04/01/17 09:45 04/01/17 05:41 04/01/17 05:41 03/31/17 23:00 Gen: less tachypneic with speaking Heart: RRR Lung: better air movement, less rhonchi, wheezes Abd: soft, nontender Ext: no edema CBC, BMP 04/01/17 11:30 04/01/17 11:30 Active Medications Acetaminophen (Tylenol -) 650 mg PO Q6H PRN PRN Reason: FEVER OR PAIN Acetylcysteine (Mucomyst 20 Oral / Inh Use Only*) 800 mg NEB RBID [facility] Last Admin: 04/01/17 08:19 Dose: 800 mg Albuterol Sulfate (Ventolin 0.083% Nebulizer Soln -) 1 amp NEB Q4H PRN PRN Reason: SHORT OF BREATH/WHEEZING Last Admin: 03/31/17 01:10 Dose: 1 amp Albuterol Sulfate (Ventolin 0.083% Nebulizer Soln -) 1 amp NEB RBID [facility] Last Admin: 04/01/17 08:19 Dose: 1 amp Artificial Tears (Artificial Tears) 1 drop OU BID PRN PRN Reason: PRN DRY EYES Last Admin: 03/29/17 09:36 Dose: 1 drop Budesonide (Pulmicort 0.25 Mg Nebulizer -) 1 amp NEB BID [facility] Last Admin: 04/01/17 10:37 Dose: 1 amp Bupropion HCl (Wellbutrin Xl -) 300 mg PO DAILY [facility] Last Admin: 04/01/17 09:48 Dose: 300 mg Carbidopa/Levodopa (Sinemet 25/100 -) 1 each PO HS [facility] Last Admin: 03/31/17 23:03 Dose: 1 each Cholecalciferol (Vitamin D3 -) 1,000 unit PO DAILY [facility] Last Admin: 04/01/17 09:46 Dose: 1,000 unit Citalopram Hydrobromide (Celexa -) 10 mg PO DAILY [facility] Last Admin: 04/01/17 09:46 Dose: 10 mg Digoxin (Lanoxin -) 0.125 mg PO DAILY [facility] Last Admin: 04/01/17 09:45 Dose: 0.125 mg Erythromycin (Erythromycin 0.5% Eye Ointment) 1 applic OU DAILY [facility] Last Admin: 04/01/17 09:49 Dose: 1 applic Ferrous Sulfate (Feosol -) 325 mg PO DAILY [facility] Last Admin: 04/01/17 09:46 Dose: 325 mg Guaifenesin/Codeine Phosphate (Robitussin Ac -) 10 ml PO Q8H PRN PRN Reason: COUGH Last Admin: 04/01/17 09:45 Dose: 10 ml Insulin Aspart (Novolog Vial Sliding Scale -) 1 vial SQ TIDAC [facility] PRN Reason: Protocol Last Admin: 04/01/17 12:05 Dose: 8 units Insulin Detemir (Levemir Vial) 38 units SQ [facility] Last Admin: 03/31/17 23:05 Dose: 38 units Lidocaine (Lidoderm Patch -) 1 patch TP DAILY [facility] Last Admin: 04/01/17 09:45 Dose: 1 patch Methylprednisolone Sodium Succinate (Solu-Medrol -) 40 mg IVPUSH Q8H-IV [facility] Last Admin: 04/01/17 09:47 Dose: 40 mg Miscellaneous (Lidoderm Patch Removal) 1 each MC DAILY@2200 [facility] Last Admin: 03/31/17 23:05 Dose: 1 each Montelukast Sodium (Singulair -) 10 mg PO [facility] Last Admin: 03/31/17 23:02 Dose: 10 mg Non-Formulary Medication (Ketotifen Fumarate [Eye Itch Relief]) 1 drop OU BID [facility] Last Admin: 04/01/17 09:50 Dose: 1 drop Oxycodone HCl (Roxicodone -) 5 mg PO Q6H PRN PRN Reason: PAIN LEVEL 6-10 Last Admin: 04/01/17 09:46 Dose: 5 mg Pantoprazole Sodium (Protonix -) 40 mg PO DAILY [facility] Last Admin: 04/01/17 09:46 Dose: 40 mg Polyethylene Glycol (Miralax (For Daily Use) -) 17 gm PO DAILY [facility] Last Admin: 04/01/17 09:47 Dose: Not Given Pramipexole Dihydrochloride (Mirapex -) 1.5 mg PO [facility] Last Admin: 03/31/17 23:04 Dose: 1.5 mg Pregabalin (Lyrica -) 25 mg PO BID [facility] Last Admin: 04/01/17 09:45 Dose: 25 mg Ranolazine (Ranexa -) 500 mg PO BID [facility] Last Admin: 04/01/17 09:45 Dose: 500 mg Senna (Senna -) 2 tab PO HS [facility] Last Admin: 03/31/17 23:01 Dose: 2 tab Topiramate (Topamax -) 150 mg PO BID [facility] Last Admin: 04/01/17 09:49 Dose: 150 mg Torsemide (Demadex -) 40 mg PO DAILY [facility] Last Admin: 04/01/17 09:47 Dose: 40 mg Verapamil HCl (Calan Sr -) 240 mg PO DAILY [facility] Last Admin: 04/01/17 09:48 Dose: 240 mg Warfarin Sodium 10 mg/ (Warfarin Sodium 2 mg) 12 mg PO DAILY@1800 [facility] Last Admin: 03/31/17 17:53 Dose: 12 mg A/P Acute COPD Exacerbation Atrial Fibrillation CAD Lupus CHF - slow medrol taper, will decrease to q12h today - inhaled bronchodilators standing and PRN - O2 to keep SpO2 >90% - completed empiric antibiotics - rate controlled - continue anticoagulation
--- NOTE | 2017-04-01 12:36 | PN ---
Progress Note, Physician Chief Complaint: AWAKE UNSTEADY GAIT I ASKED HER TO SIT DOWN AND NOT GET UP WITHOUT ASSISTANCE - Current Medication List Current Medications: Active Medications Acetaminophen (Tylenol -) 650 mg PO Q6H PRN PRN Reason: FEVER OR PAIN Acetylcysteine (Mucomyst 20 Oral / Inh Use Only*) 800 mg NEB RBID [facility] Last Admin: 04/01/17 08:19 Dose: 800 mg Albuterol Sulfate (Ventolin 0.083% Nebulizer Soln -) 1 amp NEB Q4H PRN PRN Reason: SHORT OF BREATH/WHEEZING Last Admin: 03/31/17 01:10 Dose: 1 amp Albuterol Sulfate (Ventolin 0.083% Nebulizer Soln -) 1 amp NEB RBID [facility] Last Admin: 04/01/17 08:19 Dose: 1 amp Artificial Tears (Artificial Tears) 1 drop OU BID PRN PRN Reason: PRN DRY EYES Last Admin: 03/29/17 09:36 Dose: 1 drop Budesonide (Pulmicort 0.25 Mg Nebulizer -) 1 amp NEB BID [facility] Last Admin: 04/01/17 10:37 Dose: 1 amp Bupropion HCl (Wellbutrin Xl -) 300 mg PO DAILY [facility] Last Admin: 04/01/17 09:48 Dose: 300 mg Carbidopa/Levodopa (Sinemet 25/100 -) 1 each PO HS [facility] Last Admin: 03/31/17 23:03 Dose: 1 each Cholecalciferol (Vitamin D3 -) 1,000 unit PO DAILY [facility] Last Admin: 04/01/17 09:46 Dose: 1,000 unit Citalopram Hydrobromide (Celexa -) 10 mg PO DAILY [facility] Last Admin: 04/01/17 09:46 Dose: 10 mg Digoxin (Lanoxin -) 0.125 mg PO DAILY [facility] Last Admin: 04/01/17 09:45 Dose: 0.125 mg Erythromycin (Erythromycin 0.5% Eye Ointment) 1 applic OU DAILY [facility] Last Admin: 04/01/17 09:49 Dose: 1 applic Ferrous Sulfate (Feosol -) 325 mg PO DAILY [facility] Last Admin: 04/01/17 09:46 Dose: 325 mg Guaifenesin/Codeine Phosphate (Robitussin Ac -) 10 ml PO Q8H PRN PRN Reason: COUGH Last Admin: 04/01/17 09:45 Dose: 10 ml Insulin Aspart (Novolog Vial Sliding Scale -) 1 vial SQ TIDAC [facility] PRN Reason: Protocol Last Admin: 04/01/17 12:05 Dose: 8 units Insulin Detemir (Levemir Vial) 38 units SQ [facility] Last Admin: 03/31/17 23:05 Dose: 38 units Lidocaine (Lidoderm Patch -) 1 patch TP DAILY [facility] Last Admin: 04/01/17 09:45 Dose: 1 patch Methylprednisolone Sodium Succinate (Solu-Medrol -) 40 mg IVPUSH Q12H [facility] Miscellaneous (Lidoderm Patch Removal) 1 each MC DAILY@2200 [facility] Last Admin: 03/31/17 23:05 Dose: 1 each Montelukast Sodium (Singulair -) 10 mg PO [facility] Last Admin: 03/31/17 23:02 Dose: 10 mg Non-Formulary Medication (Ketotifen Fumarate [Eye Itch Relief]) 1 drop OU BID [facility] Last Admin: 04/01/17 09:50 Dose: 1 drop Oxycodone HCl (Roxicodone -) 5 mg PO Q6H PRN PRN Reason: PAIN LEVEL 6-10 Last Admin: 04/01/17 09:46 Dose: 5 mg Pantoprazole Sodium (Protonix -) 40 mg PO DAILY [facility] Last Admin: 04/01/17 09:46 Dose: 40 mg Polyethylene Glycol (Miralax (For Daily Use) -) 17 gm PO DAILY [facility] Last Admin: 04/01/17 09:47 Dose: Not Given Pramipexole Dihydrochloride (Mirapex -) 1.5 mg PO [facility] Last Admin: 03/31/17 23:04 Dose: 1.5 mg Pregabalin (Lyrica -) 25 mg PO BID [facility] Last Admin: 04/01/17 09:45 Dose: 25 mg Ranolazine (Ranexa -) 500 mg PO BID [facility] Last Admin: 04/01/17 09:45 Dose: 500 mg Senna (Senna -) 2 tab PO [facility] Last Admin: 03/31/17 23:01 Dose: 2 tab Topiramate (Topamax -) 150 mg PO BID [facility] Last Admin: 04/01/17 09:49 Dose: 150 mg Torsemide (Demadex -) 40 mg PO DAILY [facility] Last Admin: 04/01/17 09:47 Dose: 40 mg Verapamil HCl (Calan Sr -) 240 mg PO DAILY [facility] Last Admin: 04/01/17 09:48 Dose: 240 mg Warfarin Sodium 10 mg/ (Warfarin Sodium 2 mg) 12 mg PO DAILY@1800 [facility] Last Admin: 03/31/17 17:53 Dose: 12 mg - Objective Vital Signs: Vital Signs Temperature 97.5 F L 04/01/17 05:41 Pulse Rate 63 04/01/17 09:45 Respiratory Rate 20 04/01/17 05:41 Blood Pressure 147/43 04/01/17 05:41 O2 Sat by Pulse Oximetry (%) 95 03/31/17 23:00 Constitutional: Yes: Mild Distress Eyes: Yes: WNL HENT: Yes: WNL Neck: Yes: WNL Cardiovascular: Yes: WNL Respiratory: Yes: On Nasal O2, Wheezes Gastrointestinal: Yes: WNL Genitourinary: Yes: WNL Musculoskeletal: Yes: Muscle Weakness Extremities: Yes: WNL Edema: No Peripheral Pulses WNL: Yes Integumentary: Yes: WNL Wound/Incision: Yes: Clean/Dry Neurological: Yes: Unsteady Gait ...Motor Strength: LLE, RLE Psychiatric: Yes: Other Labs: CBC, BMP 04/01/17 11:30 04/01/17 11:30 INR, PTT INR 2.77 (0.82-1.09) H D 04/01/17 06:00 Problem List - Problems (1) COPD (chronic obstructive pulmonary disease) Code(s): J44.9 - CHRONIC OBSTRUCTIVE PULMONARY DISEASE, UNSPECIFIED Qualifiers: COPD type: COPD with acute exacerbation Qualified Code(s): J44.1 - Chronic obstructive pulmonary disease with (acute) exacerbation (2) Lupus Code(s): L93.0 - DISCOID LUPUS ERYTHEMATOSUS (3) Type 2 diabetes mellitus with hyperosmolarity without nonketotic hyperglycemic-hyperosmolar coma ([facility]) Code(s): E11.00 - TYPE 2 DIAB W HYPROSM W/O NONKET HYPRGLY-HYPROS COMA ([facility]) (4) Afib Code(s): I48.91 - UNSPECIFIED ATRIAL FIBRILLATION Qualifiers: Atrial fibrillation type: paroxysmal Qualified Code(s): I48.0 - Paroxysmal atrial fibrillation (5) Anterior epistaxis Code(s): R04.0 - EPISTAXIS (6) Anticoagulated Code(s): Z79.01 - [facility] (CURRENT) USE OF ANTICOAGULANTS (7) Asthma exacerbation in COPD Code(s): J44.1 - CHRONIC OBSTRUCTIVE PULMONARY DISEASE W (ACUTE) EXACERBATION; J45.901 - UNSPECIFIED ASTHMA WITH (ACUTE) EXACERBATION (8) CAD (coronary artery disease) Code(s): I25.10 - ATHSCL HEART DISEASE OF [place] CORONARY ARTERY W/O ANG PCTRS (9) CHF (congestive heart failure) Code(s): I50.9 - HEART FAILURE, UNSPECIFIED (10) Unsteady gait Code(s): R26.81 - UNSTEADINESS ON FEET (11) Weakness Code(s): R53.1 - WEAKNESS Assessment/Plan 02 SUPPORT OOB WITH ASSISTANCE ONLY [facility] EVAL PT EVAL [facility]
[2017-04-01] MEDS ORDERED: WARFARIN NA 10 MG TABLET (FP) ONE (18:29)
[2017-04-01] MEDS ORDERED: WARFARIN NA 1 MG TABLET (FP) ONE (18:29)
[2017-04-01] MEDS: WARFARIN NA 10 MG, WARFARIN NA 2 MG PO SCH (18:32)
[2017-04-01] MEDS ORDERED: PT OWN MED DRAWER 7, Y5N ONE (20:22)
[2017-04-01] MEDS: SENNOSIDES 8.6MG TABLET (FP) PO SCH (23:26)
[2017-04-01] MEDS: MONTELUKAST NA 10 MG TABLET PO SCH (23:27)
[2017-04-01] MEDS: INSULIN DETEMIR 100 UNITS/ML MDV SQ SCH (23:28)
[2017-04-01] MEDS: LIDOCAINE PATCH REMOVAL MC SCH (23:28)
[2017-04-02] MEDS: CARBIDOPA/LEVODOPA 25/100 TABLET (FP) PO SCH ×2 (00:02→21:38)
[2017-04-02] MEDS: PRAMIPEXOLE DIHYDROCHLORIDE 1.5 MG TABLET PO SCH ×2 (00:03→21:36)
[2017-04-02] MEDS: INSULIN SLIDING SCALE (NOVOLOG) 1 VIAL SQ SCH ×4 (06:08→16:21)
[2017-04-02] MEDS ORDERED: INSULIN (NOVOLOG) ASPART 100 UNITS/ML 10ML VIAL ONE (07:18)
[2017-04-02] MEDS ORDERED: PT OWN MED DRAWER 7, Y5N ONE (07:56)
[2017-04-02 08:08] LABS: INR 3.16 (0.82-1.09); PROTHROMBIN TIME (PATIENT) 35.7 SEC (9.98-11.88)
[2017-04-02] MEDS: ACETYLCYSTEINE 20% 200MG/ML 4 ML VIAL *FOR ORAL / INH USE ONLY NEB SCH ×2 (08:28→20:45)
[2017-04-02] MEDS: ALBUTEROL SO4 0.083% IH SOL 2.5 MG/3 ML VIAL.NEB. NEB SCH ×2 (08:29→20:45)
[2017-04-02] MEDS: DIGOXIN 0.125 MG TABLET (FP) PO SCH (09:08)
[2017-04-02] MEDS: PREGABALIN 25 MG CAPSULE PO SCH ×2 (09:08→21:35)
[2017-04-02] MEDS: methylPREDNISolone NA SUCC 40 MG/1 ML VIAL IVPUSH SCH ×2 (09:08→21:38)
[2017-04-02] MEDS: FERROUS SO4 325 MG TABLET (FP) PO SCH (09:09)
[2017-04-02] MEDS: PANTOPRAZOLE 40 MG TABLET (FP) PO SCH (09:09)
[2017-04-02] MEDS: CHOLECALCIFEROL (VITAMIN D3) 1,000 UNIT TABLET (FP) PO SCH (09:09)
[2017-04-02] MEDS: CITALOPRAM HYDROBROMIDE 10 MG TABLET (FP) PO SCH (09:09)
[2017-04-02] MEDS: TORSEMIDE 20 MG TABLET (FP) PO SCH (09:09)
[2017-04-02] MEDS: RANOLAZINE E.R. 500 MG TABLET (FP) PO SCH ×2 (09:09→21:38)
[2017-04-02] MEDS: ERYTHROMYCIN 0.5% OPHTHALMIC OINTMENT 3.5 GM TUBE OU SCH (09:10)
[2017-04-02] MEDS: LIDOCAINE 5% TOPICAL PATCH TP SCH (09:10)
[2017-04-02] MEDS: TOPIRAMATE 100 MG TABLET PO SCH ×2 (09:10→21:39)
[2017-04-02] MEDS: VERAPAMIL HCL 240 MG E.R. TABLET (FP) PO SCH (09:11)
[2017-04-02] MEDS: POLYETHYLENE GLYCOL 3350 119 GM BTL PO SCH (09:11)
[2017-04-02] MEDS: KETOTIFEN FUMARATE OU SCH ×2 (09:11→21:47)
[2017-04-02] MEDS: BUDESONIDE 0.25 MG/2ML INH SUSP VIAL NEB SCH ×2 (10:43→21:30)
--- NOTE | 2017-04-02 11:36 | PN ---
Progress Note, Physician Chief Complaint: coughing less today not tacypniec when she talks getting better on bid steroids - Current Medication List Current Medications: Active Medications Acetaminophen (Tylenol -) 650 mg PO Q6H PRN PRN Reason: FEVER OR PAIN Acetylcysteine (Mucomyst 20 Oral / Inh Use Only*) 800 mg NEB RBID [facility] Last Admin: 04/02/17 08:28 Dose: 800 mg Albuterol Sulfate (Ventolin 0.083% Nebulizer Soln -) 1 amp NEB Q4H PRN PRN Reason: SHORT OF BREATH/WHEEZING Last Admin: 03/31/17 01:10 Dose: 1 amp Albuterol Sulfate (Ventolin 0.083% Nebulizer Soln -) 1 amp NEB RBID [facility] Last Admin: 04/02/17 08:29 Dose: 1 amp Artificial Tears (Artificial Tears) 1 drop OU BID PRN PRN Reason: PRN DRY EYES Last Admin: 03/29/17 09:36 Dose: 1 drop Budesonide (Pulmicort 0.25 Mg Nebulizer -) 1 amp NEB BID [facility] Last Admin: 04/02/17 10:43 Dose: 1 amp Bupropion HCl (Wellbutrin Xl -) 300 mg PO DAILY [facility] Last Admin: 04/02/17 09:11 Dose: 300 mg Carbidopa/Levodopa (Sinemet 25/100 -) 1 each PO HS [facility] Last Admin: 04/02/17 00:02 Dose: 1 each Cholecalciferol (Vitamin D3 -) 1,000 unit PO DAILY [facility] Last Admin: 04/02/17 09:09 Dose: 1,000 unit Citalopram Hydrobromide (Celexa -) 10 mg PO DAILY [facility] Last Admin: 04/02/17 09:09 Dose: 10 mg Digoxin (Lanoxin -) 0.125 mg PO DAILY [facility] Last Admin: 04/02/17 09:08 Dose: 0.125 mg Erythromycin (Erythromycin 0.5% Eye Ointment) 1 applic OU DAILY [facility] Last Admin: 04/02/17 09:10 Dose: 1 applic Ferrous Sulfate (Feosol -) 325 mg PO DAILY [facility] Last Admin: 04/02/17 09:09 Dose: 325 mg Guaifenesin/Codeine Phosphate (Robitussin Ac -) 10 ml PO Q8H PRN PRN Reason: COUGH Last Admin: 04/01/17 09:45 Dose: 10 ml Insulin Aspart (Novolog Vial Sliding Scale -) 1 vial SQ TIDAC [facility] PRN Reason: Protocol Last Admin: 04/02/17 11:20 Dose: 6 units Insulin Detemir (Levemir Vial) 38 units SQ HS [facility] Last Admin: 04/01/17 23:28 Dose: 38 units Lidocaine (Lidoderm Patch -) 1 patch TP DAILY [facility] Last Admin: 04/02/17 09:10 Dose: 1 patch Methylprednisolone Sodium Succinate (Solu-Medrol -) 40 mg IVPUSH Q12H [facility] Last Admin: 04/02/17 09:08 Dose: 40 mg Miscellaneous (Lidoderm Patch Removal) 1 each MC DAILY@2200 [facility] Last Admin: 04/01/17 23:28 Dose: 1 each Montelukast Sodium (Singulair -) 10 mg PO HS [facility] Last Admin: 04/01/17 23:27 Dose: 10 mg Non-Formulary Medication (Ketotifen Fumarate [Eye Itch Relief]) 1 drop OU BID [facility] Last Admin: 04/02/17 09:11 Dose: 1 drop Pantoprazole Sodium (Protonix -) 40 mg PO DAILY [facility] Last Admin: 04/02/17 09:09 Dose: 40 mg Polyethylene Glycol (Miralax (For Daily Use) -) 17 gm PO DAILY [facility] Last Admin: 04/02/17 09:11 Dose: Not Given Pramipexole Dihydrochloride (Mirapex -) 1.5 mg PO HS [facility] Last Admin: 04/02/17 00:03 Dose: 1.5 mg Pregabalin (Lyrica -) 25 mg PO BID [facility] Last Admin: 04/02/17 09:08 Dose: 25 mg Ranolazine (Ranexa -) 500 mg PO BID [facility] Last Admin: 04/02/17 09:09 Dose: 500 mg Senna (Senna -) 2 tab PO HS [facility] Last Admin: 04/01/17 23:26 Dose: 2 tab Topiramate (Topamax -) 150 mg PO BID [facility] Last Admin: 04/02/17 09:10 Dose: 150 mg Torsemide (Demadex -) 40 mg PO DAILY [facility] Last Admin: 04/02/17 09:09 Dose: 40 mg Verapamil HCl (Calan Sr -) 240 mg PO DAILY [facility] Last Admin: 04/02/17 09:11 Dose: 240 mg Warfarin Sodium 10 mg/ (Warfarin Sodium 2 mg) 12 mg PO DAILY@1800 [facility] Last Admin: 04/01/17 18:32 Dose: 12 mg - Objective Vital Signs: Vital Signs Temperature 98.1 F 04/02/17 10:00 Pulse Rate 62 04/02/17 10:00 Respiratory Rate 16 04/02/17 10:00 Blood Pressure 157/60 04/02/17 10:00 O2 Sat by Pulse Oximetry (%) 96 04/02/17 09:00 Constitutional: Yes: Calm Cardiovascular: Yes: Regular Rate and Rhythm, S1, S2 Respiratory: Yes: CTA Bilaterally, On Nasal O2 Gastrointestinal: Yes: Normal Bowel Sounds, Soft Neurological: Yes: Alert, Oriented Labs: CBC, BMP 04/01/17 11:30 04/01/17 11:30 INR, PTT INR 3.16 (0.82-1.09) H 04/02/17 06:00 Problem List - Problems (1) Afib Assessment/Plan: on verampamil and digoxin Code(s): I48.91 - UNSPECIFIED ATRIAL FIBRILLATION Qualifiers: Atrial fibrillation type: paroxysmal Qualified Code(s): I48.0 - Paroxysmal atrial fibrillation (2) COPD (chronic obstructive pulmonary disease) Assessment/Plan: iv steroids taper slowly now on bid nebulizer pulmicort plan for pulm rehab at [facility]- patient accepted will go once she is changed to oral steroids Code(s): J44.9 - CHRONIC OBSTRUCTIVE PULMONARY DISEASE, UNSPECIFIED Qualifiers: COPD type: COPD with acute exacerbation Qualified Code(s): J44.1 - Chronic obstructive pulmonary disease with (acute) exacerbation (3) Diabetes Assessment/Plan: insulin bgm will improve with steroid taper Code(s): E11.9 - TYPE 2 DIABETES MELLITUS WITHOUT COMPLICATIONS Qualifiers: Diabetes mellitus type: type 2 Diabetes mellitus complication status: with neurologic complications (4) Mitral valve replaced Assessment/Plan: Coumadin INR goal 2.5-3.5 inr ordered for today and tmw Code(s): Z95.2 - PRESENCE OF PROSTHETIC HEART VALVE (5) CAD (coronary artery disease) Assessment/Plan: s/p PCI continue ranexa no Asa bc of couamdin no statin bc of prior intolerance no BB bc of wheezing on verampamil Code(s): I25.10 - ATHSCL HEART DISEASE OF [place] CORONARY ARTERY W/O ANG PCTRS (6) CHF (congestive heart failure) Assessment/Plan: chronic diastolic HF on torsemide Code(s): I50.9 - HEART FAILURE, UNSPECIFIED
--- NOTE | 2017-04-02 12:25 | PN ---
Progress Note (short form) - Note Progress Note: Breathing continues to slowly improve. Still with some cough with clear/white sputum. No CP. No fevers or chills. Intake & Output 03/30/17 03/31/17 04/01/17 04/02/17 23:59 23:59 23:59 23:59 Intake Total 780 1100 1450 150 Balance 780 1100 1450 150 Weight 201 lb 202 lb 8 oz 201 lb 1 oz Last Vital Signs Temp Pulse Resp BP Pulse Ox 98.1 F 62 16 157/60 96 04/02/17 10:00 04/02/17 10:00 04/02/17 10:00 04/02/17 10:00 04/02/17 09:00 Active Medications Acetaminophen (Tylenol -) 650 mg PO Q6H PRN PRN Reason: FEVER OR PAIN Acetylcysteine (Mucomyst 20 Oral / Inh Use Only*) 800 mg NEB RBID [facility] Last Admin: 04/02/17 08:28 Dose: 800 mg Albuterol Sulfate (Ventolin 0.083% Nebulizer Soln -) 1 amp NEB Q4H PRN PRN Reason: SHORT OF BREATH/WHEEZING Last Admin: 03/31/17 01:10 Dose: 1 amp Albuterol Sulfate (Ventolin 0.083% Nebulizer Soln -) 1 amp NEB RBID [facility] Last Admin: 04/02/17 08:29 Dose: 1 amp Artificial Tears (Artificial Tears) 1 drop OU BID PRN PRN Reason: PRN DRY EYES Last Admin: 03/29/17 09:36 Dose: 1 drop Budesonide (Pulmicort 0.25 Mg Nebulizer -) 1 amp NEB BID [facility] Last Admin: 04/02/17 10:43 Dose: 1 amp Bupropion HCl (Wellbutrin Xl -) 300 mg PO DAILY [facility] Last Admin: 04/02/17 09:11 Dose: 300 mg Carbidopa/Levodopa (Sinemet 25/100 -) 1 each PO HS [facility] Last Admin: 04/02/17 00:02 Dose: 1 each Cholecalciferol (Vitamin D3 -) 1,000 unit PO DAILY [facility] Last Admin: 04/02/17 09:09 Dose: 1,000 unit Citalopram Hydrobromide (Celexa -) 10 mg PO DAILY [facility] Last Admin: 04/02/17 09:09 Dose: 10 mg Digoxin (Lanoxin -) 0.125 mg PO DAILY [facility] Last Admin: 04/02/17 09:08 Dose: 0.125 mg Erythromycin (Erythromycin 0.5% Eye Ointment) 1 applic OU DAILY [facility] Last Admin: 04/02/17 09:10 Dose: 1 applic Ferrous Sulfate (Feosol -) 325 mg PO DAILY [facility] Last Admin: 04/02/17 09:09 Dose: 325 mg Guaifenesin/Codeine Phosphate (Robitussin Ac -) 10 ml PO Q8H PRN PRN Reason: COUGH Last Admin: 04/01/17 09:45 Dose: 10 ml Insulin Aspart (Novolog Vial Sliding Scale -) 1 vial SQ TIDAC [facility] PRN Reason: Protocol Last Admin: 04/02/17 11:20 Dose: 6 units Insulin Detemir (Levemir Vial) 38 units SQ [facility] Last Admin: 04/01/17 23:28 Dose: 38 units Lidocaine (Lidoderm Patch -) 1 patch TP DAILY [facility] Last Admin: 04/02/17 09:10 Dose: 1 patch Methylprednisolone Sodium Succinate (Solu-Medrol -) 40 mg IVPUSH Q12H [facility] Last Admin: 04/02/17 09:08 Dose: 40 mg Miscellaneous (Lidoderm Patch Removal) 1 each MC DAILY@2200 [facility] Last Admin: 04/01/17 23:28 Dose: 1 each Montelukast Sodium (Singulair -) 10 mg PO [facility] Last Admin: 04/01/17 23:27 Dose: 10 mg Non-Formulary Medication (Ketotifen Fumarate [Eye Itch Relief]) 1 drop OU BID [facility] Last Admin: 04/02/17 09:11 Dose: 1 drop Pantoprazole Sodium (Protonix -) 40 mg PO DAILY [facility] Last Admin: 04/02/17 09:09 Dose: 40 mg Polyethylene Glycol (Miralax (For Daily Use) -) 17 gm PO DAILY [facility] Last Admin: 04/02/17 09:11 Dose: Not Given Pramipexole Dihydrochloride (Mirapex -) 1.5 mg PO [facility] Last Admin: 04/02/17 00:03 Dose: 1.5 mg Pregabalin (Lyrica -) 25 mg PO BID [facility] Last Admin: 04/02/17 09:08 Dose: 25 mg Ranolazine (Ranexa -) 500 mg PO BID [facility] Last Admin: 04/02/17 09:09 Dose: 500 mg Senna (Senna -) 2 tab PO HS [facility] Last Admin: 04/01/17 23:26 Dose: 2 tab Topiramate (Topamax -) 150 mg PO BID [facility] Last Admin: 04/02/17 09:10 Dose: 150 mg Torsemide (Demadex -) 40 mg PO DAILY [facility] Last Admin: 04/02/17 09:09 Dose: 40 mg Verapamil HCl (Calan Sr -) 240 mg PO DAILY [facility] Last Admin: 04/02/17 09:11 Dose: 240 mg Warfarin Sodium 10 mg/ (Warfarin Sodium 2 mg) 12 mg PO DAILY@1800 [facility] Last Admin: 04/01/17 18:32 Dose: 12 mg Gen: NAD, less tachypneic with speaking Heart: RRR Lung: Scattered rhonchi and expiratory wheezes Abd: soft, nontender Ext: no edema Laboratory Results - last 24 hr 04/01/17 04/01/17 04/01/17 12:01 17:12 23:21 PT with INR INR POC Glucometer 356 387 180 04/02/17 04/02/17 04/02/17 06:00 06:05 08:26 PT with INR 35.70 H INR 3.16 H POC Glucometer 410 335 04/02/17 11:15 PT with INR INR POC Glucometer 328 A/P Acute COPD Exacerbation Atrial Fibrillation CAD Lupus CHF - Medrol at q12h - inhaled bronchodilators standing and PRN - O2 to keep SpO2 >90% - completed empiric antibiotics - rate controlled - continue anticoagulation Dr Matias
[2017-04-02] MEDS: oxyCODONE HCL 5 MG TABLET PO PRN (16:06)
[2017-04-02] MEDS ORDERED: WARFARIN NA 10 MG TABLET (FP) ONE (17:24)
[2017-04-02] MEDS ORDERED: WARFARIN NA 1 MG TABLET (FP) ONE (17:24)
[2017-04-02] MEDS: WARFARIN NA 10 MG, WARFARIN NA 2 MG PO SCH (17:27)
[2017-04-02] MEDS: ARTIFICIAL TEARS (POLYVINYL ALCOHOL 1.4%) OPTH DROPS OU PRN (21:34)
[2017-04-02] MEDS: SENNOSIDES 8.6MG TABLET (FP) PO SCH (21:35)
[2017-04-02] MEDS: INSULIN DETEMIR 100 UNITS/ML MDV SQ SCH (21:37)
[2017-04-02] MEDS: MONTELUKAST NA 10 MG TABLET PO SCH (21:38)
[2017-04-02] MEDS: LIDOCAINE PATCH REMOVAL MC SCH (21:43)
--- NOTE | 2017-04-03 00:56 | PN ---
Progress Note, Physician Chief Complaint: short of breath at rest,high sugars despite insulin dose achs coverage History of Present Illness: still with respiratory difficulty,cough and dyspnea,high sugars with steroids - Current Medication List Current Medications: Active Medications Acetaminophen (Tylenol -) 650 mg PO Q6H PRN PRN Reason: FEVER OR PAIN Acetylcysteine (Mucomyst 20 Oral / Inh Use Only*) 800 mg NEB RBID [facility] Last Admin: 04/02/17 08:28 Dose: 800 mg Albuterol Sulfate (Ventolin 0.083% Nebulizer Soln -) 1 amp NEB Q4H PRN PRN Reason: SHORT OF BREATH/WHEEZING Last Admin: 03/31/17 01:10 Dose: 1 amp Albuterol Sulfate (Ventolin 0.083% Nebulizer Soln -) 1 amp NEB RBID [facility] Last Admin: 04/02/17 08:29 Dose: 1 amp Artificial Tears (Artificial Tears) 1 drop OU BID PRN PRN Reason: PRN DRY EYES Last Admin: 04/02/17 21:34 Dose: 1 drop Budesonide (Pulmicort 0.25 Mg Nebulizer -) 1 amp NEB BID [facility] Last Admin: 04/02/17 10:43 Dose: 1 amp Bupropion HCl (Wellbutrin Xl -) 300 mg PO DAILY [facility] Last Admin: 04/02/17 09:11 Dose: 300 mg Carbidopa/Levodopa (Sinemet 25/100 -) 1 each PO HS [facility] Last Admin: 04/02/17 21:38 Dose: 1 each Cholecalciferol (Vitamin D3 -) 1,000 unit PO DAILY [facility] Last Admin: 04/02/17 09:09 Dose: 1,000 unit Citalopram Hydrobromide (Celexa -) 10 mg PO DAILY [facility] Last Admin: 04/02/17 09:09 Dose: 10 mg Digoxin (Lanoxin -) 0.125 mg PO DAILY [facility] Last Admin: 04/02/17 09:08 Dose: 0.125 mg Erythromycin (Erythromycin 0.5% Eye Ointment) 1 applic OU DAILY [facility] Last Admin: 04/02/17 09:10 Dose: 1 applic Ferrous Sulfate (Feosol -) 325 mg PO DAILY [facility] Last Admin: 04/02/17 09:09 Dose: 325 mg Guaifenesin/Codeine Phosphate (Robitussin Ac -) 10 ml PO Q8H PRN PRN Reason: COUGH Last Admin: 04/01/17 09:45 Dose: 10 ml Insulin Aspart (Novolog Vial Sliding Scale -) 1 vial SQ TIDAC [facility] PRN Reason: Protocol Insulin Detemir (Levemir Vial) 45 units SQ HS [facility] Lidocaine (Lidoderm Patch -) 1 patch TP DAILY [facility] Last Admin: 04/02/17 09:10 Dose: 1 patch Methylprednisolone Sodium Succinate (Solu-Medrol -) 40 mg IVPUSH Q12H [facility] Last Admin: 04/02/17 21:38 Dose: 40 mg Miscellaneous (Lidoderm Patch Removal) 1 each MC DAILY@2200 [facility] Last Admin: 04/02/17 21:43 Dose: 1 each Montelukast Sodium (Singulair -) 10 mg PO HS [facility] Last Admin: 04/02/17 21:38 Dose: 10 mg Non-Formulary Medication (Ketotifen Fumarate [Eye Itch Relief]) 1 drop OU BID [facility] Last Admin: 04/02/17 21:47 Dose: 1 drop Oxycodone HCl (Roxicodone -) 5 mg PO Q6H PRN PRN Reason: PAIN LEVEL 4 - 6 Last Admin: 04/02/17 16:06 Dose: 5 mg Pantoprazole Sodium (Protonix -) 40 mg PO DAILY [facility] Last Admin: 04/02/17 09:09 Dose: 40 mg Polyethylene Glycol (Miralax (For Daily Use) -) 17 gm PO DAILY [facility] Last Admin: 04/02/17 09:11 Dose: Not Given Pramipexole Dihydrochloride (Mirapex -) 1.5 mg PO [facility] Last Admin: 04/02/17 21:36 Dose: 1.5 mg Pregabalin (Lyrica -) 25 mg PO BID [facility] Last Admin: 04/02/17 21:35 Dose: 25 mg Ranolazine (Ranexa -) 500 mg PO BID [facility] Last Admin: 04/02/17 21:38 Dose: 500 mg Senna (Senna -) 2 tab PO HS [facility] Last Admin: 04/02/17 21:35 Dose: 2 tab Topiramate (Topamax -) 150 mg PO BID [facility] Last Admin: 04/02/17 21:39 Dose: 150 mg Torsemide (Demadex -) 40 mg PO DAILY [facility] Last Admin: 04/02/17 09:09 Dose: 40 mg Verapamil HCl (Calan Sr -) 240 mg PO DAILY [facility] Last Admin: 04/02/17 09:11 Dose: 240 mg Warfarin Sodium 10 mg/ (Warfarin Sodium 2 mg) 12 mg PO DAILY@1800 [facility] Last Admin: 04/02/17 17:27 Dose: 12 mg - Objective Vital Signs: Vital Signs Temperature 98.3 F 04/02/17 22:00 Pulse Rate 73 04/02/17 22:00 Respiratory Rate 20 04/02/17 22:00 Blood Pressure 109/69 04/02/17 22:00 O2 Sat by Pulse Oximetry (%) 100 04/02/17 21:00 Constitutional: Yes: Anxious Eyes: Yes: EOM Intact HENT: Yes: Normocephalic Neck: Yes: Trachea Midline Cardiovascular: Yes: Regular Rate and Rhythm Respiratory: Yes: Rhonchi, Tachypnea, Wheezes Gastrointestinal: Yes: Abdomen, Obese ...Rectal Exam: Yes: Deferred Genitourinary: Yes: WNL Musculoskeletal: Yes: WNL Extremities: Yes: WNL Edema: No Peripheral Pulses WNL: Yes Neurological: Yes: Alert, Oriented Labs: CBC, BMP 04/01/17 11:30 04/01/17 11:30 INR, PTT INR 3.16 (0.82-1.09) H 04/02/17 06:00 Problem List - Problems (1) Type 2 diabetes mellitus with hyperosmolarity without nonketotic hyperglycemic-hyperosmolar coma ([facility]) Code(s): E11.00 - TYPE 2 DIAB W HYPROSM W/O NONKET HYPRGLY-HYPROS COMA ([facility]) (2) COPD (chronic obstructive pulmonary disease) Code(s): J44.9 - CHRONIC OBSTRUCTIVE PULMONARY DISEASE, UNSPECIFIED Qualifiers: COPD type: COPD with acute exacerbation Qualified Code(s): J44.1 - Chronic obstructive pulmonary disease with (acute) exacerbation (3) Afib Code(s): I48.91 - UNSPECIFIED ATRIAL FIBRILLATION Qualifiers: Atrial fibrillation type: paroxysmal Qualified Code(s): I48.0 - Paroxysmal atrial fibrillation (4) Anterior epistaxis Code(s): R04.0 - EPISTAXIS (5) Asthma exacerbation in COPD Code(s): J44.1 - CHRONIC OBSTRUCTIVE PULMONARY DISEASE W (ACUTE) EXACERBATION; J45.901 - UNSPECIFIED ASTHMA WITH (ACUTE) EXACERBATION (6) CAD (coronary artery disease) Code(s): I25.10 - ATHSCL HEART DISEASE OF [place] CORONARY ARTERY W/O ANG PCTRS (7) CHF (congestive heart failure) Code(s): I50.9 - HEART FAILURE, UNSPECIFIED Assessment/Plan Current Active Problems COPD (chronic obstructive pulmonary disease) (Acute) Lupus (Acute) Type 2 diabetes mellitus with hyperosmolarity without nonketotic hyperglycemic- hyperosmolar coma ([facility]) (Acute) Unsteady gait (Acute) Weakness (Acute) Abnormal Lab Results 04/02/17 06:00 PT with INR 35.70 H INR 3.16 H Laboratory Results - last 24 hr 04/02/17 04/02/17 04/02/17 06:00 06:05 08:26 PT with INR 35.70 H INR 3.16 H POC Glucometer 410 335 04/02/17 04/02/17 04/02/17 11:15 16:20 21:33 PT with INR INR POC Glucometer [phone] plan: Current Medications Generic Name Dose Route Start Last Admin Trade Name Freq PRN Reason Stop Dose Admin Acetaminophen 650 mg 03/20/17 23:08 Tylenol - PO Q6H PRN FEVER OR PAIN Acetylcysteine 800 mg 03/27/17 20:00 04/02/17 20:45 Mucomyst 20 Oral / Inh Use Only* NEB 800 mg RBID [facility] Administration Albuterol Sulfate 1 amp 03/27/17 15:31 03/31/17 01:10 Ventolin 0.083% Nebulizer Soln - NEB 1 amp Q4H PRN Administration SHORT OF BREATH/WHEEZING Albuterol Sulfate 1 amp 03/27/17 20:00 04/02/17 20:45 Ventolin 0.083% Nebulizer Soln - NEB 1 amp RBID [facility] Administration Artificial Tears 1 drop 03/20/17 23:15 04/02/17 21:34 Artificial Tears OU 1 drop BID PRN Administration PRN DRY EYES Budesonide 1 amp 03/22/17 11:15 04/02/17 21:30 Pulmicort 0.25 Mg Nebulizer - NEB 1 amp BID [facility] Administration Bupropion HCl 300 mg 03/21/17 10:00 04/02/17 09:11 Wellbutrin Xl - PO 300 mg DAILY [facility] Administration Carbidopa/Levodopa 1 each 03/21/17 22:00 04/02/17 21:38 Sinemet 25/100 - PO 1 each HS [facility] Administration Cholecalciferol 1,000 unit 03/21/17 10:00 04/02/17 09:09 Vitamin D3 - PO 1,000 unit DAILY [facility] Administration Citalopram Hydrobromide 10 mg 03/21/17 10:00 04/02/17 09:09 Celexa - PO 10 mg DAILY [facility] Administration Digoxin 0.125 mg 03/21/17 10:00 04/02/17 09:08 Lanoxin - PO 0.125 mg DAILY [facility] Administration Erythromycin 1 applic 03/21/17 10:00 04/02/17 09:10 Erythromycin 0.5% Eye Ointment OU 1 applic DAILY [facility] Administration Ferrous Sulfate 325 mg 03/21/17 10:00 04/02/17 09:09 Feosol - PO 325 mg DAILY [facility] Administration Guaifenesin/Codeine Phosphate 10 ml 03/24/17 14:29 04/01/17 09:45 Robitussin Ac - PO 10 ml Q8H PRN Administration COUGH Insulin Aspart 1 vial 04/03/17 07:00 Novolog Vial Sliding Scale - SQ TIDAC [facility] Protocol Insulin Detemir 45 units 04/03/17 22:00 Levemir Vial SQ [facility] Lidocaine 1 patch 03/21/17 10:00 04/02/17 09:10 Lidoderm Patch - TP 1 patch DAILY [facility] Administration Methylprednisolone Sodium Succinate 40 mg 04/01/17 22:00 04/02/17 21:38 Solu-Medrol - IVPUSH 40 mg Q12H [facility] Administration Miscellaneous 1 each 03/21/17 22:00 04/02/17 21:43 Lidoderm Patch Removal MC 1 each DAILY@2200 [facility] Administration Montelukast Sodium 10 mg 03/21/17 22:00 04/02/17 21:38 Singulair - PO 10 mg HS [facility] Administration Non-Formulary Medication 1 drop 03/21/17 10:00 04/02/17 21:47 Ketotifen Fumarate [Eye Itch Relief] OU 1 drop BID [facility] Administration Oxycodone HCl 5 mg 04/02/17 15:25 04/02/17 16:06 Roxicodone - PO 5 mg Q6H PRN Administration PAIN LEVEL 4 - 6 Pantoprazole Sodium 40 mg 03/21/17 10:00 04/02/17 09:09 Protonix - PO 40 mg DAILY [facility] Administration Polyethylene Glycol 17 gm 03/21/17 10:00 04/02/17 09:11 Miralax (For Daily Use) - PO Not Given DAILY [facility] Pramipexole Dihydrochloride 1.5 mg 03/21/17 22:00 04/02/17 21:36 Mirapex - PO 1.5 mg HS [facility] Administration Pregabalin 25 mg 03/24/17 10:00 04/02/17 21:35 Lyrica - PO 25 mg BID [facility] Administration Ranolazine 500 mg 03/21/17 10:00 04/02/17 21:38 Ranexa - PO 500 mg BID [facility] Administration Senna 2 tab 03/21/17 22:00 04/02/17 21:35 Senna - PO 2 tab HS [facility] Administration Topiramate 150 mg 03/20/17 23:10 04/02/17 21:39 Topamax - PO 150 mg BID [facility] Administration Torsemide 40 mg 03/22/17 10:00 04/02/17 09:09 Demadex - PO 40 mg DAILY [facility] Administration Verapamil HCl 240 mg 03/21/17 10:00 04/02/17 09:11 Calan Sr - PO 240 mg DAILY [facility] Administration Warfarin Sodium 10 mg/ 12 mg 03/30/17 18:00 04/02/17 17:27 Warfarin Sodium 2 mg PO 12 mg DAILY@1800 [facility] Administration use achs novolog as steroid on board levemir 45 units hs
[2017-04-03] MEDS: guaiFENesin/CODEINE 10 ML UNIT-DOSE CUPS PO PRN (02:10)
[2017-04-03] MEDS: ALBUTEROL SO4 0.083% IH SOL 2.5 MG/3 ML VIAL.NEB. NEB PRN (02:30)
[2017-04-03] MEDS: oxyCODONE HCL 5 MG TABLET PO PRN (06:27)
[2017-04-03] MEDS: INSULIN SLIDING SCALE (NOVOLOG) 1 VIAL SQ SCH ×3 (06:39→16:15)
[2017-04-03] MEDS: ACETYLCYSTEINE 20% 200MG/ML 4 ML VIAL *FOR ORAL / INH USE ONLY NEB SCH ×2 (08:41→20:00)
[2017-04-03] MEDS: ALBUTEROL SO4 0.083% IH SOL 2.5 MG/3 ML VIAL.NEB. NEB SCH ×2 (08:41→20:00)
[2017-04-03] MEDS ORDERED: PT OWN MED DRAWER 7, Y5N ONE (09:04)
[2017-04-03] MEDS: CHOLECALCIFEROL (VITAMIN D3) 1,000 UNIT TABLET (FP) PO SCH (09:07)
[2017-04-03] MEDS: LIDOCAINE 5% TOPICAL PATCH TP SCH (09:07)
[2017-04-03] MEDS: methylPREDNISolone NA SUCC 40 MG/1 ML VIAL IVPUSH SCH ×2 (09:07→21:45)
[2017-04-03] MEDS: RANOLAZINE E.R. 500 MG TABLET (FP) PO SCH ×2 (09:08→22:30)
[2017-04-03] MEDS: DIGOXIN 0.125 MG TABLET (FP) PO SCH (09:08)
[2017-04-03] MEDS: PANTOPRAZOLE 40 MG TABLET (FP) PO SCH (09:08)
[2017-04-03] MEDS: FERROUS SO4 325 MG TABLET (FP) PO SCH (09:08)
[2017-04-03] MEDS: CITALOPRAM HYDROBROMIDE 10 MG TABLET (FP) PO SCH (09:08)
[2017-04-03] MEDS: TORSEMIDE 20 MG TABLET (FP) PO SCH (09:08)
[2017-04-03] MEDS: PREGABALIN 25 MG CAPSULE PO SCH ×2 (09:08→21:44)
[2017-04-03] MEDS: TOPIRAMATE 100 MG TABLET PO SCH ×2 (09:09→21:45)
[2017-04-03] MEDS: VERAPAMIL HCL 240 MG E.R. TABLET (FP) PO SCH (09:10)
[2017-04-03] MEDS: POLYETHYLENE GLYCOL 3350 119 GM BTL PO SCH (09:12)
[2017-04-03] MEDS: ERYTHROMYCIN 0.5% OPHTHALMIC OINTMENT 3.5 GM TUBE OU SCH (09:13)
[2017-04-03] MEDS: ARTIFICIAL TEARS (POLYVINYL ALCOHOL 1.4%) OPTH DROPS OU PRN (09:13)
[2017-04-03] MEDS: KETOTIFEN FUMARATE OU SCH ×2 (09:18→21:42)
--- NOTE | 2017-04-03 09:49 | PN ---
Progress Note (short form) - Note Progress Note: Neurology History of Present Illness The patient is a 66 year old female, with a significant past medical history of anemia, asthma, COPD on O2, sleep apnea on CPAP, HTN, hyperlipidemia, DM, CHF, CAD x2 stents, afib on coumadin, mitral valve replacement, CVA, spinal stenosis who presents to the emergency department with cough for about 2 weeks. The patient reports having intermittent fever and cough. She was admitted for further management and has been having intermittent paresthesias. States they occu in her L hand, R foot, no specific distribution. States they've been occuring for "a long time". She sees Dr. Carranza as outpatient and I was covering for him in the hospital. Discussed with her that EMG would be indicated and can be done as outpatient. Would be preferred to have Dr. Carranza complete this in his office and she was in agreement. Symptoms self resolve and not acute. No further progression over weekend and neurologically stable today. She is c/o continued respiratory difficulty which is being actively managed. She has appt with Dr. Carranza in office in Apr and advised to keep appt. Symptoms have improved during this admission and less parasthesias occuring. Active Medications Acetaminophen (Tylenol -) 650 mg PO Q6H PRN PRN Reason: FEVER OR PAIN Acetylcysteine (Mucomyst 20 Oral / Inh Use Only*) 800 mg NEB RBID [facility] Last Admin: 04/02/17 20:45 Dose: 800 mg Albuterol Sulfate (Ventolin 0.083% Nebulizer Soln -) 1 amp NEB Q4H PRN PRN Reason: SHORT OF BREATH/WHEEZING Last Admin: 04/03/17 02:30 Dose: 1 amp Albuterol Sulfate (Ventolin 0.083% Nebulizer Soln -) 1 amp NEB RBID [facility] Last Admin: 04/02/17 20:45 Dose: 1 amp Artificial Tears (Artificial Tears) 1 drop OU BID PRN PRN Reason: PRN DRY EYES Last Admin: 04/03/17 09:13 Dose: 1 drop Budesonide (Pulmicort 0.25 Mg Nebulizer -) 1 amp NEB BID [facility] Last Admin: 04/02/17 21:30 Dose: 1 amp Bupropion HCl (Wellbutrin Xl -) 300 mg PO DAILY [facility] Last Admin: 04/03/17 09:10 Dose: 300 mg Carbidopa/Levodopa (Sinemet 25/100 -) 1 each PO HS [facility] Last Admin: 04/02/17 21:38 Dose: 1 each Cholecalciferol (Vitamin D3 -) 1,000 unit PO DAILY [facility] Last Admin: 04/03/17 09:07 Dose: 1,000 unit Citalopram Hydrobromide (Celexa -) 10 mg PO DAILY [facility] Last Admin: 04/03/17 09:08 Dose: 10 mg Digoxin (Lanoxin -) 0.125 mg PO DAILY [facility] Last Admin: 04/03/17 09:08 Dose: 0.125 mg Erythromycin (Erythromycin 0.5% Eye Ointment) 1 applic OU DAILY [facility] Last Admin: 04/03/17 09:13 Dose: 1 applic Ferrous Sulfate (Feosol -) 325 mg PO DAILY [facility] Last Admin: 04/03/17 09:08 Dose: 325 mg Guaifenesin/Codeine Phosphate (Robitussin Ac -) 10 ml PO Q8H PRN PRN Reason: COUGH Last Admin: 04/03/17 02:10 Dose: 10 ml Insulin Aspart (Novolog Vial Sliding Scale -) 1 vial SQ TIDAC [facility] PRN Reason: Protocol Last Admin: 04/03/17 06:39 Dose: 10 unit Insulin Detemir (Levemir Vial) 45 units SQ [facility] Lidocaine (Lidoderm Patch -) 1 patch TP DAILY [facility] Last Admin: 04/03/17 09:07 Dose: 1 patch Methylprednisolone Sodium Succinate (Solu-Medrol -) 40 mg IVPUSH Q12H [facility] Last Admin: 04/03/17 09:07 Dose: 40 mg Miscellaneous (Lidoderm Patch Removal) 1 each MC DAILY@2200 [facility] Last Admin: 04/02/17 21:43 Dose: 1 each Montelukast Sodium (Singulair -) 10 mg PO HS [facility] Last Admin: 04/02/17 21:38 Dose: 10 mg Non-Formulary Medication (Ketotifen Fumarate [Eye Itch Relief]) 1 drop OU BID [facility] Last Admin: 04/03/17 09:18 Dose: 1 drop Oxycodone HCl (Roxicodone -) 5 mg PO Q6H PRN PRN Reason: PAIN LEVEL 4 - 6 Last Admin: 04/03/17 06:27 Dose: 5 mg Pantoprazole Sodium (Protonix -) 40 mg PO DAILY [facility] Last Admin: 04/03/17 09:08 Dose: 40 mg Polyethylene Glycol (Miralax (For Daily Use) -) 17 gm PO DAILY [facility] Last Admin: 04/03/17 09:12 Dose: 17 grams Pramipexole Dihydrochloride (Mirapex -) 1.5 mg PO [facility] Last Admin: 04/02/17 21:36 Dose: 1.5 mg Pregabalin (Lyrica -) 25 mg PO BID [facility] Last Admin: 04/03/17 09:08 Dose: 25 mg Ranolazine (Ranexa -) 500 mg PO BID [facility] Last Admin: 04/03/17 09:08 Dose: 500 mg Senna (Senna -) 2 tab PO [facility] Last Admin: 04/02/17 21:35 Dose: 2 tab Topiramate (Topamax -) 150 mg PO BID [facility] Last Admin: 04/03/17 09:09 Dose: 150 mg Torsemide (Demadex -) 40 mg PO DAILY [facility] Last Admin: 04/03/17 09:08 Dose: 40 mg Verapamil HCl (Calan Sr -) 240 mg PO DAILY [facility] Last Admin: 04/03/17 09:10 Dose: 240 mg Warfarin Sodium 10 mg/ (Warfarin Sodium 2 mg) 12 mg PO DAILY@1800 [facility] Last Admin: 04/02/17 17:27 Dose: 12 mg *Physical Exam Vital Signs Period Temp Pulse Resp BP Sys/Wise Pulse Ox Last 24 Hr 98.1 F-98.8 F 62-73 16-20 109-157/53-69 100 GENERAL: Awake, alert, and fully oriented, in no acute distress. Morbidly obese. HEAD: No signs of trauma EYES: PERRLA, EOMI, sclera anicteric, conjunctiva clear ENT: Auricles normal inspection, hearing grossly normal, nares patent, oropharynx clear without exudates. Dry mucosa NECK: Normal ROM, supple, no lymphadenopathy, JVD, or masses LUNGS: Dec air entry B/L, +coarse crackles at the L base. No wheezes, and no crackles HEART: Regular rate and rhythm, normal S1 and S2, no murmurs, rubs or gallops ABDOMEN: Soft, nontender, normoactive bowel sounds. No guarding, no rebound. No masses EXTREMITIES: Normal range of motion, no edema. No clubbing or cyanosis. No cords, erythema, or tenderness NEUROLOGICAL: Cranial nerves II through XII grossly intact. Normal speech, normal gait SKIN: Warm, Dry, normal turgor, no rashes or lesions noted. CBCD WBC 22.8 K/mm3 (4.0-10.0) H D 04/01/17 11:30 RBC 4.79 M/mm3 (3.60-5.2) 04/01/17 11:30 Hgb 13.8 GM/dL (10.7-15.3) 04/01/17 11:30 Hct 43.7 % (32.4-45.2) 04/01/17 11:30 MCV 91.2 fl (80-96) 04/01/17 11:30 MCHC 31.6 g/dl (32.0-36.0) L 04/01/17 11:30 RDW 16.5 % (11.6-15.6) H 04/01/17 11:30 Plt Count 246 K/MM3 (134-434) 04/01/17 11:30 MPV 10.7 fl (7.5-11.1) 04/01/17 11:30 CMP Sodium 134 mmol/L (136-145) L 04/01/17 11:30 Potassium 4.0 mmol/L (3.5-5.1) 04/01/17 11:30 Chloride 97 mmol/L (98-107) L 04/01/17 11:30 Carbon Dioxide 28 mmol/L (21-32) 04/01/17 11:30 Anion Gap 9 (8-16) 04/01/17 11:30 BUN 41 mg/dL (7-18) H 04/01/17 11:30 Creatinine 1.2 mg/dL (0.55-1.02) H 04/01/17 11:30 Creat Clearance w eGFR 45.09 (>60) 04/01/17 11:30 Calcium 8.3 mg/dL (8.5-10.1) L 04/01/17 11:30 Total Bilirubin 0.4 mg/dL (0.2-1.0) 04/01/17 11:30 AST 4 U/L (15-37) L D 04/01/17 11:30 ALT 29 U/L (12-78) 04/01/17 11:30 Alkaline Phosphatase 151 U/L (45-117) H 04/01/17 11:30 Total Protein 6.0 g/dl (6.4-8.2) L 04/01/17 11:30 Albumin 3.3 g/dl (3.4-5.0) L 04/01/17 11:30 CT head reviewed Plan: 66 year old female, with a significant past medical history of anemia, asthma, COPD on O2, sleep apnea on CPAP, HTN, hyperlipidemia, DM, CHF, CAD x2 stents, afib on coumadin, mitral valve replacement, CVA, spinal stenosis who presents to the emergency department with cough for about 2 weeks. The patient reports having intermittent fever and cough. She was admitted for further management and has been having intermittent paresthesias. States they occur in her L hand, R foot, no specific distribution. States they've been occuring for "a long time ". Can be radiculopathy, possibly cervical. Unclear if possible carpal tunnel. She sees Dr. Carranza as outpatient and I am covering for him in the hospital. Discussed with her that EMG would be indicated and can be done as outpatient. Would be preferred to have Dr. Carranza complete this in his office and she was in agreement. Symptoms self resolve and not acute. Continue current mgmt regarding pulmonary condition. Tight glycemic control, maintain euglycemic level.
[2017-04-03] MEDS: BUDESONIDE 0.25 MG/2ML INH SUSP VIAL NEB SCH ×2 (10:15)
[2017-04-03] MEDS ORDERED: INSULIN (NOVOLOG) ASPART 100 UNITS/ML 10ML VIAL ONE (11:01)
--- NOTE | 2017-04-03 12:11 | DS ---
Physical Examination Vital Signs: Vital Signs Temperature 97.9 F 04/03/17 09:00 Pulse Rate 71 04/03/17 09:08 Respiratory Rate 20 04/03/17 09:00 Blood Pressure 134/54 04/03/17 09:00 O2 Sat by Pulse Oximetry (%) 96 04/03/17 09:00 Findings/Remarks: CHIEF COMPLAINT: Shortness of Breath PCP: Dr. España HISTORY OF PRESENT ILLNESS: 66 yo F with pmhx of anemia, asthma, COPD on home 02, sleep apnea on CPAP, HTN, HLDm DM, CHF, CAD X2 stents, afib on Coumadin, MVR, CVA, Spinal stenosis who presents with cough X2 weeks. Pt. reports having cough and subjective fevers at home. States she saw Dr. España who placed her on prednisone. States that she has also had right sided chest pain radiating to right side ER course was notable for: (1) EKG- NSR 70 QtC 412 (2) CXR- No Acute Process (3) Nebs given Recent Travel: No PAST MEDICAL HISTORY: As above PAST SURGICAL HISTORY: CABg, Choleycystectomy, Hysterectomy, Oopherectomy Social History: Smoking: Remote Quit Age 20s Alcohol: No Drugs: No Constitutional: Yes: Calm Cardiovascular: Yes: Regular Rate and Rhythm Respiratory: Yes: CTA Bilaterally, On Nasal O2 Gastrointestinal: Yes: Normal Bowel Sounds, Soft Neurological: Yes: Alert, Oriented Labs: CBC, BMP 04/01/17 11:30 04/01/17 11:30 Discharge Summary Reason For Visit: CHRONIC OBSTRUCTIVE ASTHMA WITH EXACERBATION Current Active Problems COPD (chronic obstructive pulmonary disease) (Acute) Lupus (Acute) Type 2 diabetes mellitus with hyperosmolarity without nonketotic hyperglycemic- hyperosmolar coma ([facility]) (Acute) Unsteady gait (Acute) Weakness (Acute) Hospital Course: CHIEF COMPLAINT: Shortness of Breath PCP: Dr. España HISTORY OF PRESENT ILLNESS: 66 yo F with pmhx of anemia, asthma, COPD on home 02, sleep apnea on CPAP, HTN, HLDm DM, CHF, CAD X2 stents, afib on Coumadin, MVR, CVA, Spinal stenosis.anti phospholipid syndrome who presents with cough X2 weeks. Pt. reports having cough and subjective fevers at home. States she saw Dr. España who placed her on prednisone. States that she has also had right sided chest pain radiating to right side ER course was notable for: (1) EKG- NSR 70 QtC 412 (2) CXR- No Acute Process (3) Nebs given Recent Travel: No PAST MEDICAL HISTORY: As above PAST SURGICAL HISTORY: CABg, Choleycystectomy, Hysterectomy, Oopherectomy Social History: Smoking: Remote Quit Age 20s Alcohol: No Drugs: No in hospital: acute copd exacerbation iv steroids slow taper to oral steroids,oxygen and nasal steroid and [facility] accepted the patient afib verampamil and digoxinand MVR on Coumadin inr btw 2.5-3.5' oral thrush nystatin swish and spit for 10 days DM on insulin diastolic heart failure on torsemide RLS on mirapex and to see dr chadwick in apr- has an appointment set up Condition: Stable - Instructions Referrals: Jose España MD [Primary Care Provider] - - Home Medications Comprehensive Discharge Medication List: Ambulatory Orders Albuterol 0.083% Nebulizer Brigitte [Ventolin 0.083% Nebulizer Soln -] 1 neb NEB QID 02/01/16 Carbidopa/Levodopa [Carbidopa-Levodopa 25-100 Tab] 1 each PO HS 02/01/16 Cholecalciferol (Vitamin D3) [Vitamin D3] 1,000 unit PO DAILY 02/01/16 Ferrous Sulfate [Feosol] 325 mg PO DAILY 02/01/16 Insulin Sliding Scale [Novolog Vial Sliding Scale -] 0 units SQ ACHS 02/01/16 Montelukast Na [Singulair -] 10 mg PO HS 02/01/16 [place]-3 Acid Ethyl Esters [Lovaza] 1 gm PO BID 02/01/16 Polyethylene Glycol 3350 [Miralax 119 gm Btl -] 17 gm PO DAILY 02/01/16 Potassium Chloride 60 meq PO DAILY 02/01/16 Sennosides [Senna] 2 tab PO HS 02/01/16 Topiramate [Topiramate ER] 150 mg PO BID 02/01/16 Verapamil HCl [Verapamil ER] 240 mg PO DAILY 02/01/16 Warfarin Na [Coumadin -] 14 mg PO DAILY 02/01/16 Acetaminophen [Tylenol .Regular Strength -] 650 mg PO Q6H PRN #0 tablet Bupropion HCl [Wellbutrin Xl -] 300 mg PO DAILY #30 tab 09/03/16 Citalopram Hydrobromide [Celexa -] 10 mg PO DAILY tablet 09/03/16 Digoxin [Lanoxin -] 0.125 mg PO DAILY #30 tablet 09/03/16 Insulin (Levemir) [Levemir Vial] 30 units SQ HS ml 09/03/16 Lidocaine 5% Patch [Lidoderm -] 1 patch TP DAILY patch 09/03/16 Pantoprazole Sodium [Protonix -] 40 mg PO DAILY tab 09/03/16 Pramipexole Dihydrochloride [Mirapex -] 1.5 mg PO HS tablet 09/03/16 Ranolazine [Ranexa -] 500 mg PO BID tab 09/03/16 Erythromycin 0.5% Eye Ointment [Erythromycin 0.5% Eye Ointment -] 1 applic OU DAILY 03/20/17 Ketotifen Fumarate [Eye Itch Relief] 1 drop OU BID 03/20/17 Nitroglycerin [Nitrostat] 0.4 mg SL PRN PRN 03/20/17 Polyvinyl Alcohol [Artificial Tears] 1 drop OU ASDIR 03/20/17 Torsemide [Demadex -] 60 mg PO BID 03/20/17
--- NOTE | 2017-04-03 12:19 | PN ---
Progress Note (short form) - Note Progress Note: will waiting for pulm to see patient to decide if ok to change to oral steroids / taper to once daily steroids- 50mg daily and slow taper by 10mg every 2 days [facility] patient can continue swish and spit for thrush for 10 days Problem List - Problems (1) Afib Code(s): I48.91 - UNSPECIFIED ATRIAL FIBRILLATION Qualifiers: Atrial fibrillation type: paroxysmal Qualified Code(s): I48.0 - Paroxysmal atrial fibrillation (2) COPD (chronic obstructive pulmonary disease) Code(s): J44.9 - CHRONIC OBSTRUCTIVE PULMONARY DISEASE, UNSPECIFIED Qualifiers: COPD type: COPD with acute exacerbation Qualified Code(s): J44.1 - Chronic obstructive pulmonary disease with (acute) exacerbation (3) Diabetes Code(s): E11.9 - TYPE 2 DIABETES MELLITUS WITHOUT COMPLICATIONS Qualifiers: Diabetes mellitus type: type 2 Diabetes mellitus complication status: with neurologic complications (4) Mitral valve replaced Code(s): Z95.2 - PRESENCE OF PROSTHETIC HEART VALVE (5) CAD (coronary artery disease) Code(s): I25.10 - ATHSCL HEART DISEASE OF [place] CORONARY ARTERY W/O ANG PCTRS (6) CHF (congestive heart failure) Code(s): I50.9 - HEART FAILURE, UNSPECIFIED
--- NOTE | 2017-04-03 16:10 | PN ---
Physical Exam: SUBJECTIVE: Patient seen and examined, c/o of lethargy. Denies chest pain, sob, fever, chills, cough. OBJECTIVE: Vital Signs Period Temp Pulse Resp BP Sys/Wise Pulse Ox Last 24 Hr 97.5 F-98.4 F 58-78 20-20 109-157/54-69 96-100 GENERAL: The patient is awake, alert, lethargic LUNGS: Breath sounds equal, clear to auscultation bilaterally, no wheezes, no crackles, no accessory muscle use. HEART: Regular rate and rhythm, S1, S2 without murmur, rub or gallop. ABDOMEN:obese Soft, nontender, nondistended, normoactive bowel sounds, no guarding, no rebound, no hepatosplenomegaly, no masses. EXTREMITIES: 2+ pulses, warm, well-perfused, no edema. Laboratory Results - last 24 hr 04/02/17 04/02/17 04/03/17 16:20 21:33 06:24 POC Glucometer 295 316 451 04/03/17 11:07 POC Glucometer 336 Active Medications Generic Name Dose Route Start Last Admin Trade Name Freq PRN Reason Stop Dose Admin Acetaminophen 650 mg 03/20/17 23:08 Tylenol - PO Q6H PRN FEVER OR PAIN Acetylcysteine 800 mg 03/27/17 20:00 04/03/17 08:41 Mucomyst 20 Oral / Inh Use Only* NEB 800 mg RBID [facility] Administration Albuterol Sulfate 1 amp 03/27/17 15:31 04/03/17 02:30 Ventolin 0.083% Nebulizer Soln - NEB 1 amp Q4H PRN Administration SHORT OF BREATH/WHEEZING Albuterol Sulfate 1 amp 03/27/17 20:00 04/03/17 08:41 Ventolin 0.083% Nebulizer Soln - NEB 1 amp RBID [facility] Administration Artificial Tears 1 drop 03/20/17 23:15 04/03/17 09:13 Artificial Tears OU 1 drop BID PRN Administration PRN DRY EYES Budesonide 1 amp 03/22/17 11:15 04/03/17 10:15 Pulmicort 0.25 Mg Nebulizer - NEB 1 amp BID [facility] Administration Bupropion HCl 300 mg 03/21/17 10:00 04/03/17 09:10 Wellbutrin Xl - PO 300 mg DAILY [facility] Administration Carbidopa/Levodopa 1 each 03/21/17 22:00 04/02/17 21:38 Sinemet 25/100 - PO 1 each HS [facility] Administration Cholecalciferol 1,000 unit 03/21/17 10:00 04/03/17 09:07 Vitamin D3 - PO 1,000 unit DAILY [facility] Administration Citalopram Hydrobromide 10 mg 03/21/17 10:00 04/03/17 09:08 Celexa - PO 10 mg DAILY [facility] Administration Digoxin 0.125 mg 03/21/17 10:00 04/03/17 09:08 Lanoxin - PO 0.125 mg DAILY [facility] Administration Erythromycin 1 applic 03/21/17 10:00 04/03/17 09:13 Erythromycin 0.5% Eye Ointment OU 1 applic DAILY [facility] Administration Ferrous Sulfate 325 mg 03/21/17 10:00 04/03/17 09:08 Feosol - PO 325 mg DAILY [facility] Administration Guaifenesin/Codeine Phosphate 10 ml 03/24/17 14:29 04/03/17 02:10 Robitussin Ac - PO 10 ml Q8H PRN Administration COUGH Insulin Aspart 1 vial 04/03/17 07:00 04/03/17 11:09 Novolog Vial Sliding Scale - SQ 8 unit TIDAC [facility] Administration Protocol Insulin Detemir 45 units 04/03/17 22:00 Levemir Vial SQ HS [facility] Lidocaine 1 patch 03/21/17 10:00 04/03/17 09:07 Lidoderm Patch - TP 1 patch DAILY [facility] Administration Methylprednisolone Sodium Succinate 40 mg 04/01/17 22:00 04/03/17 09:07 Solu-Medrol - IVPUSH 40 mg Q12H [facility] Administration Miscellaneous 1 each 03/21/17 22:00 04/02/17 21:43 Lidoderm Patch Removal MC 1 each DAILY@2200 [facility] Administration Montelukast Sodium 10 mg 03/21/17 22:00 04/02/17 21:38 Singulair - PO 10 mg HS [facility] Administration Non-Formulary Medication 1 drop 03/21/17 10:00 04/03/17 09:18 Ketotifen Fumarate [Eye Itch Relief] OU 1 drop BID [facility] Administration Nystatin 500,000 units 04/03/17 18:00 Nystatin Oral Suspension - PO Q6HPO [facility] Oxycodone HCl 5 mg 04/02/17 15:25 04/03/17 06:27 Roxicodone - PO 5 mg Q6H PRN Administration PAIN LEVEL 4 - 6 Pantoprazole Sodium 40 mg 03/21/17 10:00 04/03/17 09:08 Protonix - PO 40 mg DAILY [facility] Administration Polyethylene Glycol 17 gm 03/21/17 10:00 04/03/17 09:12 Miralax (For Daily Use) - PO 17 grams DAILY [facility] Administration Pramipexole Dihydrochloride 1.5 mg 03/21/17 22:00 04/02/17 21:36 Mirapex - PO 1.5 mg HS [facility] Administration Pregabalin 25 mg 03/24/17 10:00 04/03/17 09:08 Lyrica - PO 25 mg BID [facility] Administration Ranolazine 500 mg 03/21/17 10:00 04/03/17 09:08 Ranexa - PO 500 mg BID [facility] Administration Senna 2 tab 03/21/17 22:00 04/02/17 21:35 Senna - PO 2 tab HS [facility] Administration Topiramate 150 mg 03/20/17 23:10 04/03/17 09:09 Topamax - PO 150 mg BID [facility] Administration Torsemide 40 mg 03/22/17 10:00 04/03/17 09:08 Demadex - PO 40 mg DAILY [facility] Administration Verapamil HCl 240 mg 03/21/17 10:00 04/03/17 09:10 Calan Sr - PO 240 mg DAILY [facility] Administration Warfarin Sodium 10 mg/ 12 mg 03/30/17 18:00 04/02/17 17:27 Warfarin Sodium 2 mg PO 12 mg DAILY@1800 [facility] Administration ASSESSMENT/PLAN: 66 yo F with pmhx of anemia, asthma, COPD on home 02, sleep apnea on CPAP, HTN, HLDm DM, CHF, CAD X2 stents, afib on Coumadin, MVR, CVA, Spinal stenosis who presents with cough X2 weeks. Impression: acute exacerbation of COPD atrial fibrillation CAD CHF Lupus Plan: -lung clear bilaterally -chest PT / PT as outpatient -taper steroids -cont home O2 SpO2>90% -stable for DC from pulmonary Problem List - Problems (1) COPD (chronic obstructive pulmonary disease) Code(s): J44.9 - CHRONIC OBSTRUCTIVE PULMONARY DISEASE, UNSPECIFIED Qualifiers: COPD type: COPD with acute exacerbation Qualified Code(s): J44.1 - Chronic obstructive pulmonary disease with (acute) exacerbation (2) Lupus Code(s): L93.0 - DISCOID LUPUS ERYTHEMATOSUS (3) Type 2 diabetes mellitus with hyperosmolarity without nonketotic hyperglycemic-hyperosmolar coma ([facility]) Code(s): E11.00 - TYPE 2 DIAB W HYPROSM W/O NONKET HYPRGLY-HYPROS COMA ([facility]) (4) Unsteady gait Code(s): R26.81 - UNSTEADINESS ON FEET (5) Weakness Code(s): R53.1 - WEAKNESS (6) Asthma exacerbation in COPD Code(s): J44.1 - CHRONIC OBSTRUCTIVE PULMONARY DISEASE W (ACUTE) EXACERBATION; J45.901 - UNSPECIFIED ASTHMA WITH (ACUTE) EXACERBATION (7) CAD (coronary artery disease) Code(s): I25.10 - ATHSCL HEART DISEASE OF [place] CORONARY ARTERY W/O ANG PCTRS (8) CHF (congestive heart failure) Code(s): I50.9 - HEART FAILURE, UNSPECIFIED Visit type - Emergency Visit Emergency Visit: No - New Patient This patient is new to me today: Yes Date on this admission: 04/03/17 - Critical Care Critical Care patient: No - Discharge Referral Referred to [facility] Med P.C.: No
--- NOTE | 2017-04-03 16:27 | PN ---
Teaching Attending Note Name of Resident: Bell Wolff ATTENDING PHYSICIAN STATEMENT I saw and evaluated the patient. I reviewed the resident's note and discussed the case with the resident. I agree with the resident's findings and plan as documented. AGREE WITH CURRENT PLAN TO CONTINUE TREATMENT OUTPATIENT. Maki WAYNE MD Problem List - Problems (1) COPD (chronic obstructive pulmonary disease) Code(s): J44.9 - CHRONIC OBSTRUCTIVE PULMONARY DISEASE, UNSPECIFIED Qualifiers: COPD type: COPD with acute exacerbation Qualified Code(s): J44.1 - Chronic obstructive pulmonary disease with (acute) exacerbation (2) Afib Code(s): I48.91 - UNSPECIFIED ATRIAL FIBRILLATION Qualifiers: Atrial fibrillation type: paroxysmal Qualified Code(s): I48.0 - Paroxysmal atrial fibrillation (3) Anticoagulated Code(s): Z79.01 - USP (CURRENT) USE OF ANTICOAGULANTS (4) Asthma exacerbation in COPD Code(s): J44.1 - CHRONIC OBSTRUCTIVE PULMONARY DISEASE W (ACUTE) EXACERBATION; J45.901 - UNSPECIFIED ASTHMA WITH (ACUTE) EXACERBATION (5) CAD (coronary artery disease) Code(s): I25.10 - ATHSCL HEART DISEASE OF [place] CORONARY ARTERY W/O ANG PCTRS (6) CHF (congestive heart failure) Code(s): I50.9 - HEART FAILURE, UNSPECIFIED
[2017-04-03] MEDS: NYSTATIN 500,000 UNITS/5 ML SUSPENSION PO SCH (18:22)
[2017-04-03 19:13] LABS: INR 2.76 (0.82-1.09); PROTHROMBIN TIME (PATIENT) 31.2 SEC (9.98-11.88)
[2017-04-03] MEDS ORDERED: WARFARIN NA 1 MG TABLET (FP) ONE (21:34)
[2017-04-03] MEDS ORDERED: WARFARIN NA 10 MG TABLET (FP) ONE (21:34)
[2017-04-03] MEDS: SENNOSIDES 8.6MG TABLET (FP) PO SCH (21:43)
[2017-04-03] MEDS: WARFARIN NA 10 MG, WARFARIN NA 2 MG PO SCH (21:43)
[2017-04-03] MEDS: LIDOCAINE PATCH REMOVAL MC SCH (21:44)
[2017-04-03] MEDS: PRAMIPEXOLE DIHYDROCHLORIDE 1.5 MG TABLET PO SCH (21:44)
[2017-04-03] MEDS: MONTELUKAST NA 10 MG TABLET PO SCH (21:45)
[2017-04-03] MEDS: CARBIDOPA/LEVODOPA 25/100 TABLET (FP) PO SCH (21:45)
[2017-04-03] MEDS ORDERED: INSULIN DETEMIR 100 UNITS/ML MDV SQ SCH (22:00)
[2017-04-03] MEDS ORDERED: INSULIN (NOVOLOG) ASPART 100 UNITS/ML 10ML VIAL SQ ONE (22:30)
[2017-04-04] MEDS: NYSTATIN 500,000 UNITS/5 ML SUSPENSION PO SCH ×2 (00:19→06:13)
[2017-04-04] MEDS: INSULIN SLIDING SCALE (NOVOLOG) 1 VIAL SQ SCH ×2 (06:13→11:57)
[2017-04-04] MEDS: BUDESONIDE 0.25 MG/2ML INH SUSP VIAL NEB SCH ×2 (06:14→10:14)
[2017-04-04] MEDS ORDERED: INSULIN DETEMIR 100 UNITS/ML MDV SQ ONE (06:33)
[2017-04-04] MEDS ORDERED: INSULIN (NOVOLOG) ASPART 100 UNITS/ML 10ML VIAL ONE ×3 (06:33→12:36)
[2017-04-04 08:10] LABS: INR 2.19 (0.82-1.09); PROTHROMBIN TIME (PATIENT) 24.8 SEC (9.98-11.88)
[2017-04-04] MEDS: ALBUTEROL SO4 0.083% IH SOL 2.5 MG/3 ML VIAL.NEB. NEB SCH (08:54)
[2017-04-04] MEDS: ACETYLCYSTEINE 20% 200MG/ML 4 ML VIAL *FOR ORAL / INH USE ONLY NEB SCH (08:54)
--- NOTE | 2017-04-04 09:59 | PN ---
Progress Note (short form) - Note Progress Note: Neurology History of Present Illness The patient is a 66 year old female, with a significant past medical history of anemia, asthma, COPD on O2, sleep apnea on CPAP, HTN, hyperlipidemia, DM, CHF, CAD x2 stents, afib on coumadin, mitral valve replacement, CVA, spinal stenosis who presents to the emergency department with cough for about 2 weeks. The patient reports having intermittent fever and cough. She was admitted for further management and has been having intermittent paresthesias. States they occu in her L hand, R foot, no specific distribution. States they've been occuring for "a long time". She sees Dr. Carranza as outpatient and I was covering for him in the hospital. Discussed with her that EMG would be indicated and can be done as outpatient. Would be preferred to have Dr. Carranza complete this in his office and she was in agreement. Symptoms self resolve and not acute. No further progression over weekend and neurologically stable today. She is c/o continued respiratory difficulty which is being actively managed. She has appt with Dr. Carranza in office in Apr and advised to keep appt. Symptoms have improved during this admission and less parasthesias occuring. Per notes, plan is for transfer to [place]. Active Medications Acetaminophen (Tylenol -) 650 mg PO Q6H PRN PRN Reason: FEVER OR PAIN Acetylcysteine (Mucomyst 20 Oral / Inh Use Only*) 800 mg NEB RBID [facility] Last Admin: 04/04/17 08:54 Dose: 800 mg Albuterol Sulfate (Ventolin 0.083% Nebulizer Soln -) 1 amp NEB Q4H PRN PRN Reason: SHORT OF BREATH/WHEEZING Last Admin: 04/03/17 02:30 Dose: 1 amp Albuterol Sulfate (Ventolin 0.083% Nebulizer Soln -) 1 amp NEB RBID [facility] Last Admin: 04/04/17 08:54 Dose: 1 amp Artificial Tears (Artificial Tears) 1 drop OU BID PRN PRN Reason: PRN DRY EYES Last Admin: 04/03/17 09:13 Dose: 1 drop Budesonide (Pulmicort 0.25 Mg Nebulizer -) 1 amp NEB BID [facility] Last Admin: 04/04/17 06:14 Dose: Not Given Bupropion HCl (Wellbutrin Xl -) 300 mg PO DAILY [facility] Last Admin: 04/03/17 09:10 Dose: 300 mg Carbidopa/Levodopa (Sinemet 25/100 -) 1 each PO HS [facility] Last Admin: 04/03/17 21:45 Dose: 1 each Cholecalciferol (Vitamin D3 -) 1,000 unit PO DAILY [facility] Last Admin: 04/03/17 09:07 Dose: 1,000 unit Citalopram Hydrobromide (Celexa -) 10 mg PO DAILY [facility] Last Admin: 04/03/17 09:08 Dose: 10 mg Digoxin (Lanoxin -) 0.125 mg PO DAILY [facility] Last Admin: 04/03/17 09:08 Dose: 0.125 mg Erythromycin (Erythromycin 0.5% Eye Ointment) 1 applic OU DAILY [facility] Last Admin: 04/03/17 09:13 Dose: 1 applic Ferrous Sulfate (Feosol -) 325 mg PO DAILY [facility] Last Admin: 04/03/17 09:08 Dose: 325 mg Guaifenesin/Codeine Phosphate (Robitussin Ac -) 10 ml PO Q8H PRN PRN Reason: COUGH Last Admin: 04/03/17 02:10 Dose: 10 ml Insulin Aspart (Novolog Vial Sliding Scale -) 1 vial SQ TIDAC [facility] PRN Reason: Protocol Last Admin: 04/04/17 06:13 Dose: 8 unit Insulin Detemir (Levemir Vial) 45 units SQ [facility] Last Admin: 04/03/17 21:43 Dose: 45 units Lidocaine (Lidoderm Patch -) 1 patch TP DAILY [facility] Last Admin: 04/03/17 09:07 Dose: 1 patch Miscellaneous (Lidoderm Patch Removal) 1 each MC DAILY@2200 [facility] Last Admin: 04/03/17 21:44 Dose: 1 each Montelukast Sodium (Singulair -) 10 mg PO HS [facility] Last Admin: 04/03/17 21:45 Dose: 10 mg Non-Formulary Medication (Ketotifen Fumarate [Eye Itch Relief]) 1 drop OU BID [facility] Last Admin: 04/03/17 21:42 Dose: 1 drop Nystatin (Nystatin Oral Suspension -) 500,000 units PO Q6HPO [facility] Last Admin: 04/04/17 06:13 Dose: 500,000 units Oxycodone HCl (Roxicodone -) 5 mg PO Q6H PRN PRN Reason: PAIN LEVEL 4 - 6 Last Admin: 04/03/17 06:27 Dose: 5 mg Pantoprazole Sodium (Protonix -) 40 mg PO DAILY [facility] Last Admin: 04/03/17 09:08 Dose: 40 mg Polyethylene Glycol (Miralax (For Daily Use) -) 17 gm PO DAILY [facility] Last Admin: 04/03/17 09:12 Dose: 17 grams Pramipexole Dihydrochloride (Mirapex -) 1.5 mg PO [facility] Last Admin: 04/03/17 21:44 Dose: 1.5 mg Prednisone (Deltasone -) 60 mg PO DAILY [facility] Pregabalin (Lyrica -) 25 mg PO BID [facility] Last Admin: 04/03/17 21:44 Dose: 25 mg Ranolazine (Ranexa -) 500 mg PO BID [facility] Last Admin: 04/03/17 22:30 Dose: 500 mg Senna (Senna -) 2 tab PO [facility] Last Admin: 04/03/17 21:43 Dose: 2 tab Topiramate (Topamax -) 150 mg PO BID [facility] Last Admin: 04/03/17 21:45 Dose: 150 mg Torsemide (Demadex -) 40 mg PO DAILY [facility] Last Admin: 04/03/17 09:08 Dose: 40 mg Verapamil HCl (Calan Sr -) 240 mg PO DAILY [facility] Last Admin: 04/03/17 09:10 Dose: 240 mg Warfarin Sodium 10 mg/ (Warfarin Sodium 2 mg) 12 mg PO DAILY@1800 [facility] Last Admin: 04/03/17 21:43 Dose: 12 mg *Physical Exam Vital Signs Temperature 97.5 F L 04/04/17 05:38 Pulse Rate 56 L 04/04/17 05:38 Respiratory Rate 20 04/04/17 05:38 Blood Pressure 143/67 04/04/17 05:38 O2 Sat by Pulse Oximetry (%) 99 04/03/17 21:00 GENERAL: Awake, alert, and fully oriented, in no acute distress. Morbidly obese. HEAD: No signs of trauma EYES: PERRLA, EOMI, sclera anicteric, conjunctiva clear ENT: Auricles normal inspection, hearing grossly normal, nares patent, oropharynx clear without exudates. Dry mucosa NECK: Normal ROM, supple, no lymphadenopathy, JVD, or masses LUNGS: Dec air entry B/L, +coarse crackles at the L base. No wheezes, and no crackles HEART: Regular rate and rhythm, normal S1 and S2, no murmurs, rubs or gallops ABDOMEN: Soft, nontender, normoactive bowel sounds. No guarding, no rebound. No masses EXTREMITIES: Normal range of motion, no edema. No clubbing or cyanosis. No cords, erythema, or tenderness NEUROLOGICAL: Cranial nerves II through XII grossly intact. Normal speech, normal gait SKIN: Warm, Dry, normal turgor, no rashes or lesions noted. CBCD WBC 22.8 K/mm3 (4.0-10.0) H D 04/01/17 11:30 RBC 4.79 M/mm3 (3.60-5.2) 04/01/17 11:30 Hgb 13.8 GM/dL (10.7-15.3) 04/01/17 11:30 Hct 43.7 % (32.4-45.2) 04/01/17 11:30 MCV 91.2 fl (80-96) 04/01/17 11:30 MCHC 31.6 g/dl (32.0-36.0) L 04/01/17 11:30 RDW 16.5 % (11.6-15.6) H 04/01/17 11:30 Plt Count 246 K/MM3 (134-434) 04/01/17 11:30 MPV 10.7 fl (7.5-11.1) 04/01/17 11:30 CMP Sodium 134 mmol/L (136-145) L 04/01/17 11:30 Potassium 4.0 mmol/L (3.5-5.1) 04/01/17 11:30 Chloride 97 mmol/L (98-107) L 04/01/17 11:30 Carbon Dioxide 28 mmol/L (21-32) 04/01/17 11:30 Anion Gap 9 (8-16) 04/01/17 11:30 BUN 41 mg/dL (7-18) H 04/01/17 11:30 Creatinine 1.2 mg/dL (0.55-1.02) H 04/01/17 11:30 Creat Clearance w eGFR 45.09 (>60) 04/01/17 11:30 Calcium 8.3 mg/dL (8.5-10.1) L 04/01/17 11:30 Total Bilirubin 0.4 mg/dL (0.2-1.0) 04/01/17 11:30 AST 4 U/L (15-37) L D 04/01/17 11:30 ALT 29 U/L (12-78) 04/01/17 11:30 Alkaline Phosphatase 151 U/L (45-117) H 04/01/17 11:30 Total Protein 6.0 g/dl (6.4-8.2) L 04/01/17 11:30 Albumin 3.3 g/dl (3.4-5.0) L 04/01/17 11:30 CT head reviewed Plan: 66 year old female, with a significant past medical history of anemia, asthma, COPD on O2, sleep apnea on CPAP, HTN, hyperlipidemia, DM, CHF, CAD x2 stents, afib on coumadin, mitral valve replacement, CVA, spinal stenosis who presents to the emergency department with cough for about 2 weeks. The patient reports having intermittent fever and cough. She was admitted for further management and has been having intermittent paresthesias. States they occur in her L hand, R foot, no specific distribution. States they've been occuring for "a long time ". Can be radiculopathy, possibly cervical. Unclear if possible carpal tunnel. She sees Dr. Carranza as outpatient and I am covering for him in the hospital. Discussed with her that EMG would be indicated and can be done as outpatient. Would be preferred to have Dr. Carranza complete this in his office and she was in agreement. Symptoms self resolve and not acute. Tight glycemic control, maintain euglycemic level. Plan is for [place].
[2017-04-04] MEDS ORDERED: predniSONE 20 MG TABLET (UD) PO SCH (10:00)
[2017-04-04] MEDS ORDERED: PT OWN MED DRAWER 7, Y5N ONE (10:10)
--- NOTE | 2017-04-04 11:07 | PN ---
Progress Note, Physician Chief Complaint: SOB, Cough History of Present Illness: NAD, complains of cough and SOB with Exertion seen by pulmonary and cardiology has antiphospholipid syndrome and mechanical mitral valve-->high risk of thrombosis, on Warfarin, INR foal is 2.5-3.5 going to [facility] today - Current Medication List Current Medications: Active Medications Acetaminophen (Tylenol -) 650 mg PO Q6H PRN PRN Reason: FEVER OR PAIN Acetylcysteine (Mucomyst 20 Oral / Inh Use Only*) 800 mg NEB RBID [facility] Last Admin: 04/04/17 08:54 Dose: 800 mg Albuterol Sulfate (Ventolin 0.083% Nebulizer Soln -) 1 amp NEB Q4H PRN PRN Reason: SHORT OF BREATH/WHEEZING Last Admin: 04/03/17 02:30 Dose: 1 amp Albuterol Sulfate (Ventolin 0.083% Nebulizer Soln -) 1 amp NEB RBID [facility] Last Admin: 04/04/17 08:54 Dose: 1 amp Artificial Tears (Artificial Tears) 1 drop OU BID PRN PRN Reason: PRN DRY EYES Last Admin: 04/03/17 09:13 Dose: 1 drop Budesonide (Pulmicort 0.25 Mg Nebulizer -) 1 amp NEB BID [facility] Last Admin: 04/04/17 10:14 Dose: 1 amp Bupropion HCl (Wellbutrin Xl -) 300 mg PO DAILY [facility] Last Admin: 04/03/17 09:10 Dose: 300 mg Carbidopa/Levodopa (Sinemet 25/100 -) 1 each PO HS [facility] Last Admin: 04/03/17 21:45 Dose: 1 each Cholecalciferol (Vitamin D3 -) 1,000 unit PO DAILY [facility] Last Admin: 04/03/17 09:07 Dose: 1,000 unit Citalopram Hydrobromide (Celexa -) 10 mg PO DAILY [facility] Last Admin: 04/03/17 09:08 Dose: 10 mg Digoxin (Lanoxin -) 0.125 mg PO DAILY [facility] Last Admin: 04/03/17 09:08 Dose: 0.125 mg Erythromycin (Erythromycin 0.5% Eye Ointment) 1 applic OU DAILY [facility] Last Admin: 04/03/17 09:13 Dose: 1 applic Ferrous Sulfate (Feosol -) 325 mg PO DAILY [facility] Last Admin: 04/03/17 09:08 Dose: 325 mg Guaifenesin/Codeine Phosphate (Robitussin Ac -) 10 ml PO Q8H PRN PRN Reason: COUGH Last Admin: 04/03/17 02:10 Dose: 10 ml Insulin Aspart (Novolog Vial Sliding Scale -) 1 vial SQ TIDAC [facility] PRN Reason: Protocol Last Admin: 04/04/17 06:13 Dose: 8 unit Insulin Detemir (Levemir Vial) 45 units SQ [facility] Last Admin: 04/03/17 21:43 Dose: 45 units Lidocaine (Lidoderm Patch -) 1 patch TP DAILY [facility] Last Admin: 04/03/17 09:07 Dose: 1 patch Miscellaneous (Lidoderm Patch Removal) 1 each MC DAILY@2200 [facility] Last Admin: 04/03/17 21:44 Dose: 1 each Montelukast Sodium (Singulair -) 10 mg PO [facility] Last Admin: 04/03/17 21:45 Dose: 10 mg Non-Formulary Medication (Ketotifen Fumarate [Eye Itch Relief]) 1 drop OU BID [facility] Last Admin: 04/03/17 21:42 Dose: 1 drop Nystatin (Nystatin Oral Suspension -) 500,000 units PO Q6HPO [facility] Last Admin: 04/04/17 06:13 Dose: 500,000 units Oxycodone HCl (Roxicodone -) 5 mg PO Q6H PRN PRN Reason: PAIN LEVEL 4 - 6 Last Admin: 04/03/17 06:27 Dose: 5 mg Pantoprazole Sodium (Protonix -) 40 mg PO DAILY [facility] Last Admin: 04/03/17 09:08 Dose: 40 mg Polyethylene Glycol (Miralax (For Daily Use) -) 17 gm PO DAILY [facility] Last Admin: 04/03/17 09:12 Dose: 17 grams Pramipexole Dihydrochloride (Mirapex -) 1.5 mg PO [facility] Last Admin: 04/03/17 21:44 Dose: 1.5 mg Prednisone (Deltasone -) 60 mg PO DAILY [facility] Pregabalin (Lyrica -) 25 mg PO BID [facility] Last Admin: 04/03/17 21:44 Dose: 25 mg Ranolazine (Ranexa -) 500 mg PO BID [facility] Last Admin: 04/03/17 22:30 Dose: 500 mg Senna (Senna -) 2 tab PO HS [facility] Last Admin: 04/03/17 21:43 Dose: 2 tab Topiramate (Topamax -) 150 mg PO BID [facility] Last Admin: 04/03/17 21:45 Dose: 150 mg Torsemide (Demadex -) 40 mg PO DAILY [facility] Last Admin: 04/03/17 09:08 Dose: 40 mg Verapamil HCl (Calan Sr -) 240 mg PO DAILY [facility] Last Admin: 04/03/17 09:10 Dose: 240 mg Warfarin Sodium 10 mg/ (Warfarin Sodium 2 mg) 12 mg PO DAILY@1800 [facility] Last Admin: 04/03/17 21:43 Dose: 12 mg - Objective Vital Signs: Vital Signs Temperature 97.5 F L 04/04/17 05:38 Pulse Rate 56 L 04/04/17 05:38 Respiratory Rate 20 04/04/17 05:38 Blood Pressure 143/67 04/04/17 05:38 O2 Sat by Pulse Oximetry (%) 99 04/03/17 21:00 Constitutional: Yes: Well Nourished, No Distress, Calm Cardiovascular: Yes: Regular Rate and Rhythm Respiratory: Yes: Regular Neurological: Yes: Alert, Oriented Psychiatric: Yes: Alert, Oriented Labs: CBC, BMP 04/01/17 11:30 04/01/17 11:30 INR, PTT INR 2.19 (0.82-1.09) H 04/04/17 06:00 Problem List - Problems (1) Asthma exacerbation in COPD Assessment/Plan: -Pulmonary consult -tapering steroids -Neb tx -BIPAP Code(s): J44.1 - CHRONIC OBSTRUCTIVE PULMONARY DISEASE W (ACUTE) EXACERBATION; J45.901 - UNSPECIFIED ASTHMA WITH (ACUTE) EXACERBATION (2) CAD (coronary artery disease) Assessment/Plan: -cardiology consult -not on statin due to intolerance -already on AC-warfarin, no Aspirin -repeat echo no changes -on CCB Code(s): I25.10 - ATHSCL HEART DISEASE OF [place] CORONARY ARTERY W/O ANG PCTRS (3) CHF (congestive heart failure) Assessment/Plan: -BNP negatve for any fluid overload, -CXR negative -on Torsemide 40 mg po daily Code(s): I50.9 - HEART FAILURE, UNSPECIFIED (4) H/O prosthetic mitral valve Assessment/Plan: -On warfarin, 14 mg MW and 12 mg all other days of the week a -INR goal 2.5-3.5 (5) IDDM (insulin dependent diabetes mellitus) Assessment/Plan: Levemir and insulin sliding scale -diabetic diet -RD consult -last A1c 6.8 in 12/2016 Code(s): E11.9 - TYPE 2 DIABETES MELLITUS WITHOUT COMPLICATIONS; Z79.4 - RETIREMENT (CURRENT) USE OF INSULIN (6) Leukocytosis Assessment/Plan: secondary to IV steroids Code(s): D72.829 - ELEVATED WHITE BLOOD CELL COUNT, UNSPECIFIED (7) Lupus Assessment/Plan: -Neurology consult -oxycodone for pain management -lyrica Code(s): L93.0 - DISCOID LUPUS ERYTHEMATOSUS Assessment/Plan see problem list Physical therapy On AC GI prophylaxis
[2017-04-04] MEDS: CITALOPRAM HYDROBROMIDE 10 MG TABLET (FP) PO SCH (11:44)
[2017-04-04] MEDS: VERAPAMIL HCL 240 MG E.R. TABLET (FP) PO SCH (11:44)
[2017-04-04] MEDS: TORSEMIDE 20 MG TABLET (FP) PO SCH (11:45)
[2017-04-04] MEDS: ERYTHROMYCIN 0.5% OPHTHALMIC OINTMENT 3.5 GM TUBE OU SCH (11:45)
[2017-04-04] MEDS: DIGOXIN 0.125 MG TABLET (FP) PO SCH (11:46)
[2017-04-04] MEDS: FERROUS SO4 325 MG TABLET (FP) PO SCH (11:46)
[2017-04-04] MEDS: KETOTIFEN FUMARATE OU SCH (11:46)
[2017-04-04] MEDS: LIDOCAINE 5% TOPICAL PATCH TP SCH (11:47)
[2017-04-04] MEDS: PREGABALIN 25 MG CAPSULE PO SCH (11:47)
[2017-04-04] MEDS: POLYETHYLENE GLYCOL 3350 119 GM BTL PO SCH (11:47)
[2017-04-04] MEDS: RANOLAZINE E.R. 500 MG TABLET (FP) PO SCH (11:48)
[2017-04-04] MEDS: TOPIRAMATE 100 MG TABLET PO SCH (11:49)
[2017-04-04] MEDS: PANTOPRAZOLE 40 MG TABLET (FP) PO SCH (11:50)
[2017-04-04] MEDS: CHOLECALCIFEROL (VITAMIN D3) 1,000 UNIT TABLET (FP) PO SCH (11:50)
[2017-04-04 11:58] VITALS: PULSE 66
[2017-04-04 18:52] VITALS: BP 145/62; TEMP 98
== END 2017-04-04 13:28 | DRG 191 ==
LOC: JER 17:52 → UNDOADMOB 20:57 → JERBED 20:57 → J7W 03-21 01:04 → OBSVTOIN 03-22 11:51
PROVIDERS: ADMIT Family Medicine; ATTEND Family Medicine
PROC: 3E0F7GC Introduction of Other Therapeutic Substance into Respiratory Tract, Via Natural or Artificial Opening (ICD-10-PCS; principal; 2017-03-21)
DX: J44.1 Chronic obstructive pulmonary disease with (acute) exacerbation (principal); I50.32 Chronic diastolic (congestive) heart failure; D68.61 Antiphospholipid syndrome; M25.08 Hemarthrosis, other specified site; B37.89 Other sites of candidiasis; I25.10 Atherosclerotic heart disease of native coronary artery without angina pectoris; I11.0 Hypertensive heart disease with heart failure; I10 Essential (primary) hypertension; E78.5 Hyperlipidemia, unspecified; E11.9 Type 2 diabetes mellitus without complications; G47.39 Other sleep apnea; M48.00 Spinal stenosis, site unspecified; M79.7 Fibromyalgia; D64.9 Anemia, unspecified; I48.0 Paroxysmal atrial fibrillation; R07.89 Other chest pain; K57.90 Diverticulosis of intestine, part unspecified, without perforation or abscess without bleeding; K64.8 Other hemorrhoids; G43.809 Other migraine, not intractable, without status migrainosus; K59.09 Other constipation; M54.5 Low back pain; I45.19 Other right bundle-branch block; M32.8 Other forms of systemic lupus erythematosus; G25.81 Restless legs syndrome; D72.828 Other elevated white blood cell count; E66.8 Other obesity; Z68.39 Body mass index [BMI] 39.0-39.9, adult; Z86.73 Personal history of transient ischemic attack (TIA), and cerebral infarction without residual deficits; Z95.5 Presence of coronary angioplasty implant and graft; Z95.2 Presence of prosthetic heart valve; Z99.81 Dependence on supplemental oxygen; Z88.0 Allergy status to penicillin; Z95.1 Presence of aortocoronary bypass graft; Z79.01 Long term (current) use of anticoagulants; Z79.4 Long term (current) use of insulin
CPT/HCPCS: 36415; 70450-TC; 71046-TC; 71250-TC; 80048; 80053; 80162; 82962; 83036; 83880; 84484; 85025; 85027; 85379; 85610; 85730; 87040; 87070; 87205; 87420; 87804; 93005; 93010; 93306-TC; 94010; 94640; 94660; 97116-GP; 97161-GP; 99285-25; G0378; J1644

== ENCOUNTER 2017-06-21 12:18 | Inpatient (IN) | payer OTHER ==
[2017-06-21] MEDS ORDERED: methylPREDNISolone NA SUCC 125 MG/2 ML VIAL ONE (12:22)
[2017-06-21 12:45] VITALS: BMI 38.1
--- NOTE | 2017-06-21 12:49 | PDOC ---
History of Present Illness <Nish Paniagua - Last Filed: 06/21/17 18:34> - General History Source: Patient Exam Limitations: No Limitations - History of Present Illness Initial Comments: 06/21/17 17:56 The patient is a 66 year old female with past medical history of hypertension, hyperlipidemia, Lupus, DM, CHF, COPD (on home O2), sleep apnea, CAD s/p stents x2, Afib (on coumadin), anemia, asthma, mitral valve replacement, CVA, spinal stenosis who presents to the ED with full body rash and fever that developed overnight. The patient reports that over the past few days she was itchy and noted a minor rash on her abdomen. This morning she woke up with diffuse itchy blotches on her bilateral upper and lower extremities, her trunk, face, and palms of her hands and feet. Her aid also noted a fever of 100.7 today and NB diarrhea. The patient reports seeing an medical care evaluation specialist yesterday and was started on Cetirizine, but denies any other new medications, soaps, detergents, or foods. The patient reports associated weakness, chills, nausea, diarrhea, and a dry mouth. She denies any cough, SOB, CP, or urinary symptoms. PCP: Dr. España <Molly Tate - Last Filed: 06/21/17 18:47> - General Chief Complaint: Allergic Reaction Stated Complaint: Allergic Reaction Time Seen by Provider: 06/21/17 12:47 Past History - Past Medical History Anemia: Yes Asthma: Yes Cardiac Disorders: Yes (mitral valve replacement, stents x2,a-fib, CAD) CVA: Yes (MULTIPLE TIAs) COPD: Yes (Yes, O2 2L-3L) CHF: Yes Diabetes: Yes GI Disorders: Yes (ulcers, GI bleed, hemorrhoids, diverticulosis) Disorders: Yes (bladder mesh) HTN: Yes Hypercholesterolemia: Yes Seizures: Yes Thyroid Disease: No - Surgical History Appendectomy: Yes Cardiac Surgery: Yes (stentsx2, mitral valve replacement, CABG) Cholecystectomy: Yes Orthopedic Surgery: Yes (left knee pain injection) - Immunization History Immunization Up to Date: Yes - Suicide/Smoking/Psychosocial Hx Smoking Status: No Smoking History: Never smoked Have you smoked in the past 12 months: No Number of Cigarettes Smoked Daily: 0 If you are a former smoker, when did you quit?: many years Hx Alcohol Use: No Drug/Substance Use Hx: No Substance Use Type: None Hx Substance Use Treatment: No <Nish Paniagua - Last Filed: 06/21/17 18:34> <BebetoMolly - Last Filed: 06/21/17 18:47> - Past Medical History Allergies/Adverse Reactions: Allergies Allergy/AdvReac Type Severity Reaction Status Date / Time lactose Allergy Mild Verified 06/21/17 12:45 Beta-Blockers Allergy Verified 06/21/17 12:45 (Beta-Adrenergic Bloc Iodinated Contrast- Oral and Allergy Verified 06/21/17 12:45 IV Dye [IV Dye, Iodine Containing Contrast ] shellfish derived Allergy Verified 06/21/17 12:45 Home Medications: Ambulatory Orders Albuterol 0.083% Nebulizer Brigitte [Ventolin 0.083%] 1 neb NEB QID 06/21/17 Bupropion HCl [Wellbutrin Xl] 300 mg PO DAILY 06/21/17 Carbidopa/Levodopa 25/100 [Sinemet 25/100 -] 1 each PO HS 06/21/17 Carbidopa/Levodopa [Carbidopa-Levodopa 25-100 Tab] 1 each PO TID 06/21/17 Cholecalciferol (Vitamin D3) [Vitamin D3 -] 1,000 unit PO DAILY 06/21/17 Citalopram Hydrobromide [Celexa -] 10 mg PO DAILY 06/21/17 Digoxin [Lanoxin -] 0.25 mg PO DAILY 06/21/17 Ferrous Sulfate [Iron] 325 mg PO DAILY 06/21/17 Hypromellose 0.5% Opth Soln [Artificial Tears] 1 drop OD QID 06/21/17 Insulin Aspart [Novolog] 6 unit SQ TID 06/21/17 Insulin Detemir [Levemir Flextouch] 30 unit SQ HS 06/21/17 Pantoprazole Sodium [Protonix] 40 mg PO TID 06/21/17 Pramipexole Di-HCl [Mirapex] 1.5 mg PO HS 06/21/17 Pramipexole Di-HCl [Pramipexole ER] 0.5 mg PO TID 06/21/17 Pramipexole Di-HCl [Pramipexole ER] 1 mg PO HS 06/21/17 Prednisone 10 mg PO DAILY 06/21/17 Pregabalin [Lyrica] 25 mg PO BID 06/21/17 Ranolazine [Ranexa] 500 mg PO BID 06/21/17 Topiramate [Topamax] 150 mg PO BID 06/21/17 Torsemide [Demadex] 20 mg PO TID 06/21/17 Verapamil HCl [Calan Sr] 240 mg PO DAILY 06/21/17 Warfarin Sodium [Coumadin] 9 mg PO HS 06/21/17 Review of Systems - Review of Systems Able to Perform ROS?: Yes Comments:: 06/21/17 17:57 GENERAL/CONSTITUTIONAL: Present: fever No fever or chills. No weakness. HEAD, EYES, EARS, NOSE AND THROAT: Present: dry mouth No change in vision. No ear pain or discharge. No sore throat. GASTROINTESTINAL: Present: nausea, diarrhea No vomiting or constipation. GENITOURINARY: No dysuria, frequency, or change in urination. CARDIOVASCULAR: No chest pain or shortness of breath. RESPIRATORY: No cough, wheezing, or hemoptysis. MUSCULOSKELETAL: No joint or muscle swelling or pain. No neck or back pain. SKIN: Present: diffuse body rash NEUROLOGIC: No headache, vertigo, loss of consciousness, or change in strength/ sensation. ENDOCRINE: No increased thirst. No abnormal weight change. HEMATOLOGIC/LYMPHATIC: No anemia, easy bleeding, or history of blood clots. ALLERGIC/IMMUNOLOGIC: No hives or skin allergy. All Other Systems: Reviewed and Negative <Molly Tate - Last Filed: 06/21/17 18:47> *Physical Exam - Vital Signs Last Vital Signs Temp Pulse Resp BP Pulse Ox 98 F 83 18 116/91 99 06/21/17 12:42 06/21/17 12:42 06/21/17 12:42 06/21/17 12:42 06/21/17 12:42 <Nish Paniagua - Last Filed: 06/21/17 18:34> - Vital Signs Last Vital Signs Temp Pulse Resp BP Pulse Ox 98 F 83 18 116/91 99 06/21/17 12:42 06/21/17 12:42 06/21/17 12:42 06/21/17 12:42 06/21/17 12:42 - Physical Exam Comments: 06/21/17 17:57 GENERAL: Awake, alert, and fully oriented, in no acute distress HEAD: No signs of trauma EYES: PERRLA, EOMI, sclera anicteric, conjunctiva clear ENT: Auricles normal inspection, hearing grossly normal, nares patent, oropharynx clear without exudates. Dry MM. NECK: Normal ROM, supple, no lymphadenopathy, JVD, or masses LUNGS: Breath sounds equal, clear to auscultation bilaterally. No wheezes, and no crackles HEART: Regular rate and rhythm, normal S1 and S2, no murmurs, rubs or gallops ABDOMEN: Soft, nontender, normoactive bowel sounds. No guarding, no rebound. No masses EXTREMITIES: Normal range of motion, no edema. No clubbing or cyanosis. No cords, erythema, or tenderness NEUROLOGICAL: Normal speech, cranial nerves intact, negative pronator drift, 5/ 5 strength in all 4 extremities, normal sensation to light touch in all 4 extremities, normal cerebellar exam, normal gait, normal reflexes and tone SKIN: Face, UE, trunk, palms, LE with erythematous papular raised lesions, some targetoid lesions in places coalescing into plaques. No mucous involvement, no open wounds. <Molly Tate - Last Filed: 06/21/17 18:47> ED Treatment Course - LABORATORY CBC & Chemistry Diagram: 06/21/17 16:15 06/21/17 16:15 <Nish Paniagua - Last Filed: 06/21/17 18:34> - LABORATORY CBC & Chemistry Diagram: 06/21/17 16:15 06/21/17 16:15 - RADIOLOGY Radiograph Interpretation: 06/21/17 14:55 Chest X-ray as reviewed by Dr. Flores reports no acute pathology. - Medications Given in the ED: ED Medications Discontinued Medications Generic Name Dose Route Start Last Admin Trade Name Freq PRN Reason Stop Dose Admin Diphenhydramine HCl 50 mg 06/21/17 13:40 06/21/17 13:44 Benadryl Injection - IVPUSH 06/21/17 13:41 Not Given ONCE ONE Methylprednisolone Sodium Succinate 125 mg 06/21/17 13:40 06/21/17 12:30 Solu-Medrol - IVPUSH 06/21/17 13:41 125 mg ONCE ONE Administration <Molly Tate - Last Filed: 06/21/17 18:47> Medical Decision Making - Medical Decision Making 06/21/17 13:26 66-year-old female history of hypertension, hyperlipidemia, lupus, COPD, CHF, CAD, anemia, mitral valve replacement, CVA presents to the emergency department with diffuse rash consistent with erythema multiforme. Vitals unremarkable. Concern for possible mucosal involvement given new onset diarrhea as well as possible ocular involvement. We'll obtain labs, blood cultures, chest x-ray, and consider covering broadly with antibiotics and possible transfer to a burn unit. 06/21/17 18:34 Labs remarkable for leukocytosis to 19.6, possibly in part due to steroids. Labs with a slight prerenal picture, patient given 500 mL bolus. Cover the patient with vancomycin as well as ceftriaxone, patient also appears to have a UTI. Case discussed with Dr. Collado at the [facility] burn unit who recommends that if the patient does not have any open wounds and does not appear toxic, that she does not require transfer for burn care at this time. Attempted to call Dr. Toussaint for admission but it is after 5pm (answering service said they could not reach out to him), thus reached out to hospitalist. Case discussed with Dr. Anderson who accepts the patient for admission to med/ surg inpatient. Case discussed in detail with admitting physician including history, physical exam and ancillary studies. Admitting physician has assumed care for the patient, will follow all pending diagnostics and will complete the evaluation and treatment. <Nish Paniagua - Last Filed: 06/21/17 18:34> - Medical Decision Making 06/21/17 14:23 Phone call placed to [facility] transfer center. Awaiting call back from attending physician in rheumatology. 06/21/17 14:45 Phone call returned by rheumatology. Case discussed. 06/21/17 16:24 Phone call placed to Dr. Baxter. Case was discussed. 06/21/17 18:46 Microblog sent to hospitalist and call was returned promptly. Case was discussed. <tereMolly ruiz - Last Filed: 06/21/17 18:47> *DC/Admit/Observation/Transfer - Discharge Dispostion Admit: Yes - Attestations Physician Attestion: 06/21/17 18:39 I, Dr. Nish Paniagua MD, attest that this document has been prepared under my direction and personally reviewed by me in its entirety. I further attest, that it accurately reflects all work, treatment, procedures and medical decision -making performed by me. <Nish Paniagua - Last Filed: 06/21/17 18:34> - Attestations Scribe Attestion: 06/21/17 14:23 Documentation prepared by Molly Tate, acting as medical office coordinator for Nish Paniagua MD. <Molly Tate - Last Filed: 06/21/17 18:47> Diagnosis at time of Disposition: Erythema multiforme minor - Discharge Dispostion Condition at time of disposition: Stable - Referrals Referrals: Jose España MD [Primary Care Provider] - - Patient Instructions - Post Discharge Activity
[2017-06-21] MEDS ORDERED: methylPREDNISolone NA SUCC 125 MG/2 ML VIAL IVPUSH ONE (13:40)
[2017-06-21 14:18] LABS: URINE APPEARANCE SLCLOUDY; URINE BILIRUBIN NEGATIVE (<2.0 mg/dL); URINE BLOOD NEGATIVE (NEGATIVE); URINE COLOR YELLOW; URINE GLUCOSE (UA) NEGATIVE (NEGATIVE); URINE KETONE NEGATIVE (NEGATIVE); URINE NITRITE NEGATIVE (NEGATIVE); URINE PROTEIN NEGATIVE (NEGATIVE); URINE UROBILINOGEN NEGATIVE mg/dL (0.2-1.0)
[2017-06-21 14:34] LABS: URINE LEUK ESTERASE 2+ (NEGATIVE)
[2017-06-21 15:14] LABS: EPI CELLS FEW /HPF (FEW); URINE BACTERIA RARE /hpf (NONE SEEN); URINE HYALINE CAST 17 /lpf; URINE MUCUS RARE
[2017-06-21 16:51] LABS: BASO % 0.1 % (0-2.0); EOS % 0.1 % (0-4.5); HEMATOCRIT 46.2 % (32.4-45.2); HEMOGLOBIN 15.3 GM/dL (10.7-15.3); LYMPH % 3.3 % (8-40); MEAN CELL VOLUME 90.8 fl (80-96); MEAN PLT VOLUME 10.2 fl (7.5-11.1); MONO % 1.9 % (3.8-10.2); NEUT % 94.6 % (42.8-82.8); PLATELET COUNT 262 K/MM3 (134-434); RBC 5.09 M/mm3 (3.60-5.2); WHITE BLOOD COUNT 19.7 K/mm3 (4.0-10.0)
[2017-06-21 17:08] LABS: INR 1.74 (0.82-1.09); PROTHROMBIN TIME (PATIENT) 19.7 SEC (9.98-11.88)
[2017-06-21 17:10] LABS: ACTIVATED PTT 28.3 SECONDS (26.9-34.4)
[2017-06-21 17:17] LABS: ALBUMIN 3.3 g/dl (3.4-5.0); ANION GAP 12 (8-16); BILIRUBIN,TOTAL 0.8 mg/dL (0.2-1.0); BLOOD UREA NITROGEN 21 mg/dL (7-18); CALCIUM 8.3 mg/dL (8.5-10.1); CHLORIDE 101 mmol/L (98-107); CO2 23 mmol/L (21-32); CREATININE 1.3 mg/dL (0.55-1.02); GLUCOSE,RANDOM 198 mg/dL (74-106); SGPT/ALT 15 U/L (12-78); SODIUM 136 mmol/L (136-145); TOT PROT 6.8 g/dl (6.4-8.2)
[2017-06-21 17:18] LABS: ALK PHOS 66 U/L (45-117)
[2017-06-21] MEDS ORDERED: VANCOMYCIN 1,000 MG in DEXTROSE 5%-WATER - 250 ML IVPB ONE (17:22)
[2017-06-21] MEDS ORDERED: SODIUM CHLORIDE 0.9% 1000 ML INFUS.BAG IV ONE (17:22)
[2017-06-21 17:25] LABS: MAGNESIUM 2.1 mg/dL (1.8-2.4); POTASSIUM 4.2 mmol/L (3.5-5.1); SGOT/AST 19 U/L (15-37)
[2017-06-21] MEDS ORDERED: VANCOMYCIN 1 GRAM (PRE-DOCKED) 1,000 MG/250 ML BAG IVPB ONE (17:56)
--- NOTE | 2017-06-21 20:25 | PN ---
Teaching Attending Note Name of Resident: Sharmaine Ramos ATTENDING PHYSICIAN STATEMENT I saw and evaluated the patient. CHart, data, imaging reviewed. I reviewed the resident's note and discussed the case with the resident. I agree with the resident's findings and plan as documented. SUBJECTIVE: 66 y/o F with PMH HTN, HLD, Parkinson's dz, Lupus which was diagnosed in 1994 ( currently off medications, Fibromyalgia, DM, CHF, COPD (on 2L at home), sleep apnea (on CPAP), atrial fibrillation (on coumadin), anemia, asthma, glaucoma, MV replacement with metallic valve, CVA, spinal stenosis, CAD s/p 2 stents (2014 ), antiphospholipid syndrome c/o diffuse puritic rash on extremities, and torso which started about 4 days ago. This was associated with diffuse muscle pain and joint aches. Patient reports that she stopped taking her SLE medications due to side effect profile several months ago. ROS - as stated in HPI OBJECTIVE: Last Vital Signs Temp Pulse Resp BP Pulse Ox 97.5 F L 59 L 20 145/55 96 06/22/17 02:00 06/22/17 02:00 06/22/17 02:00 06/22/17 02:00 06/22/17 01:39 General- nad, aaox3, aaox3 heent- no sinus tenderness or scleral pallor, mild pharyngeal erythema appreciated neck -supple cv -s1+s2+ RRR, systolic metal click appreciated chest cta b/l abdomen -soft, nt, BS+ Ext - warm, no pedal edema appreciated SKin - circular, erythematous rash on torso, upper and lower extremities Abnormal Lab Results 06/21/17 06/21/17 06/21/17 14:10 16:15 16:15 WBC 19.7 H D Hct 46.2 H Neutrophils % 94.6 H D Lymphocytes % 3.3 L D Monocytes % 1.9 L PT with INR 19.70 H INR 1.74 H BUN Creatinine Random Glucose Calcium C-Reactive Protein Albumin Ur Leukocyte Esterase 2+ H 06/21/17 06/21/17 16:15 17:09 WBC Hct Neutrophils % Lymphocytes % Monocytes % PT with INR INR BUN 21 H Creatinine 1.3 H Random Glucose 198 H Calcium 8.3 L C-Reactive Protein 13.1 H Albumin 3.3 L Ur Leukocyte Esterase ASSESSMENT AND PLAN: #66yo yo woman with SLE and off meds with possible Lupus flair as she has new onset rash, joint, muscle pain, and mild LILIANA. Patient evaluated by postdoctoral fellow who gave antihistamine and recommended ER visit. Noncompliance with medications makes this more likely. 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 Differential diagnosis for rash includes erythema multiforme, sweet syndrome, and hives. She received methylprednisone in ER. -admit to med/surg -prednisone 40mg daily -benadryl 50mg PO q6hrs prn -send ESR, CRP, complements -c3, c4, ch50 -avoid NSAIDs as they may possibly cause erythema multiforme -rheumatology evaluation for possible SLE flair and to restart medications -consider skin biopsy #mechanical mitral valve with subtherapeutic INR -restart coumadin -start heparin drip until INR becomes therapeutic -restart home medications for chronic medical issues #DVT ppx - -heparin sc
[2017-06-21] MEDS ORDERED: CEFTRIAXONE 1 GM/50 ML BAG ONE (20:29)
--- NOTE | 2017-06-21 20:49 | HP ---
CHIEF COMPLAINT: Rash x four days PCP: Dr. España HISTORY OF PRESENT ILLNESS: 66 y/o F with PMH HTN, HLD, Parkinson's dz, Lupus (dx 2004. was on MTX, no longer d/t adverse effects. had skin biopsy RLE; was also on Prednisone, however does not take 2/2 bloating), Fibromyalgia, DM, CHF, COPD (on 2L at home) , sleep apnea (on CPAP), atrial fibrillation (on coumadin), anemia, asthma, glaucoma, MV replacement, CVA, spinal stenosis, CAD s/p 2 stents (2014), who presents to the ED c/o worsening rash over the past four days. As per patient, on Sunday, she ate an egg roll that may have been contaminated with shellfish. Pt is allergic and has developed a maculopapular rash from this in the past. On Sunday, pt was being bathed by her aid and noticed that she had small, pruritic targetoid lesions on her anterior chest and all over her back. At this time, pt felt that her scalp was especially pruritic, and she started to develop intermittent fevers and become so uncomfortable, that she as unable to sleep well. On Sunday, pt developed severe diffuse abdominal pain a/w nausea ( without emesis), dry mouth, loose stools, and hematuria. On Sunday, pt's nausea continued, fevers continued (she did not check the temp at home), and her skin lesions began to enlarge, becoming more targetoid and spreading across her trunk, and upper and lower extremities. Today, pt followed up with an piano accompanist and was told that she had idiopathic urticaria and was given cetirizine 10mg PO qd. Pt came to the hospital today since she was urged to by her deburrer strip, who believed that her "immune system was down." During this time, pt also endorses diffuse HURD, intermittent, stabbing chest pain, intermittent fevers, SOB, changes in urinary and bowel function. She denies recent travel. Pt started new eye drops for her glaucoma, and states that on her past [facility] admission, she was in a room with a patient who had diffuse skin lesions. She is worried that she was contaminated from this instance. ER course was notable for: (2) BG 198 (3) Rocephin 1 g x 1 IVPB (4) Vanc 1g x 1 (4) Benadryl 50mg x 1 (5) Solumedrol 125mg x 1 Recent Travel: none PAST MEDICAL HISTORY: as above PAST SURGICAL HISTORY: CAD s/p 2 stents (2014) Social History: lives at home, has two aids. Has needed them ever since she had her stents placed, and to help with her fibromyalgia. She ambulates with their assistance. Smoking: quit; smoked for 10 yrs, 3 cigarettes/day Alcohol: denies Drugs: denies Family History: father- cardiac issues, mother - allergic to PCN Allergies lactose Allergy (Mild, Verified 06/21/17 12:45) - diarrhea Beta-Blockers (Beta-Adrenergic Bloc Allergy (Verified 06/21/17 12:45) - asthma Iodinated Contrast- Oral and IV Dye [IV Dye, Iodine Containing Contrast ] Allergy (Verified 06/21/17 12:45) - flushing, emesis shellfish derived Allergy (Verified 06/21/17 12:45) - maculopapular rash, pruritis HOME MEDICATIONS: Home Medications Medication Instructions Recorded Albuterol 0.083% Nebulizer Brigitte 1 neb NEB QID 06/21/17 [Ventolin 0.083%] Bupropion HCl [Wellbutrin Xl] 300 mg PO DAILY 06/21/17 Carbidopa/Levodopa 25/100 [Sinemet 1 each PO HS 06/21/17 25/100 -] Carbidopa/Levodopa 1 each PO TID 06/21/17 [Carbidopa-Levodopa 25-100 Tab] Cholecalciferol (Vitamin D3) 1,000 unit PO DAILY 06/21/17 [Vitamin D3 -] Citalopram Hydrobromide [Celexa -] 10 mg PO DAILY 06/21/17 Digoxin [Lanoxin -] 0.25 mg PO DAILY 06/21/17 Ferrous Sulfate [Iron] 325 mg PO DAILY 06/21/17 Hypromellose 0.5% Opth Soln 1 drop OD QID 06/21/17 [Artificial Tears] Insulin Aspart [Novolog] 6 unit SQ TID 06/21/17 Insulin Detemir [Levemir Flextouch] 30 unit SQ HS 06/21/17 Pantoprazole Sodium [Protonix] 40 mg PO TID 06/21/17 Pramipexole Di-HCl [Mirapex] 1.5 mg PO HS 06/21/17 Pramipexole Di-HCl [Pramipexole ER] 0.5 mg PO TID 06/21/17 Pramipexole Di-HCl [Pramipexole ER] 1 mg PO HS 06/21/17 Prednisone 10 mg PO DAILY 06/21/17 Pregabalin [Lyrica] 25 mg PO BID 06/21/17 Ranolazine [Ranexa] 500 mg PO BID 06/21/17 Topiramate [Topamax] 150 mg PO BID 06/21/17 Torsemide [Demadex] 20 mg PO TID 06/21/17 Verapamil HCl [Calan Sr] 240 mg PO DAILY 06/21/17 Warfarin Sodium [Coumadin] 9 mg PO HS 06/21/17 REVIEW OF SYSTEMS CONSTITUTIONAL: +fever, chills, diaphoresis, generalized weakness Absent: fever, chills, diaphoresis, generalized weakness, malaise, loss of appetite, weight change HEENT: Absent: rhinorrhea, nasal congestion, throat pain, throat swelling, difficulty swallowing, mouth swelling, ear pain, eye pain, visual changes CARDIOVASCULAR: +chest pain Absent: chest pain, syncope, palpitations, irregular heart rate, lightheadedness , peripheral edema RESPIRATORY: +SOB Absent: cough, shortness of breath, dyspnea with exertion, orthopnea, wheezing, stridor, hemoptysis GASTROINTESTINAL: +abdominal pain, nausea, diarrhea Absent: abdominal pain, abdominal distension, nausea, vomiting, diarrhea, constipation, melena, hematochezia GENITOURINARY: +hematuria Absent: dysuria, frequency, urgency, hesitancy, hematuria, flank pain, genital pain MUSCULOSKELETAL: Absent: myalgia, arthralgia, joint swelling, back pain, neck pain SKIN: +rash Absent: rash, itching, pallor HEMATOLOGIC/IMMUNOLOGIC: Absent: easy bleeding, easy bruising, lymphadenopathy, frequent infections ENDOCRINE: Absent: unexplained weight gain, unexplained weight loss, heat intolerance, cold intolerance NEUROLOGIC: +headache Absent: headache, focal weakness or paresthesias, dizziness, unsteady gait, seizure, mental status changes, bladder or bowel incontinence PSYCHIATRIC: Absent: anxiety, depression, suicidal or homicidal ideation, hallucinations. PHYSICAL EXAMINATION Vital Signs 06/21/17 06/21/17 12:42 20:19 Temperature 98 F 98.1 F Pulse Rate 83 Pulse Rate [ 68 Right] Respiratory 18 20 Rate Blood Pressure 116/91 Blood Pressure 152/59 [Right Arm] O2 Sat by Pulse 99 93 L Oximetry (%) GENERAL: Sitting comfortably. Pleasant female, worried. Awake, alert, and fully oriented, in no acute distress. HEAD: Normal with no signs of trauma. EYES: Pupils equal, round and reactive to light, extraocular movements intact, sclera anicteric, conjunctiva clear. No lid lag. EARS, NOSE, THROAT: Ears normal, nares patent, +oropharynx with erythema on posterior wall. Dry mucous membranes NECK: Normal range of motion, supple without lymphadenopathy, JVD, or masses. LUNGS: +Poor inspiratory effort. Breath sounds equal, clear to auscultation bilaterally. No wheezes, and no crackles. No accessory muscle use. HEART: Regular rate and rhythm (in sinus), normal S1 and S2. +murmur appreciated LSB. without rub or gallop. ABDOMEN: Soft, obese, nontender, not distended, normoactive bowel sounds, no guarding. MUSCULOSKELETAL: decreased active, passive ROM 2/2 fibromyalgia UPPER EXTREMITIES: 2+ radial pulses, warm, well-perfused. No cyanosis. No clubbing. No peripheral edema. LOWER EXTREMITIES: 2+ posterior tibial pulses, warm, well-perfused. No calf tenderness. No peripheral edema. NEUROLOGICAL: Cranial nerves II-XII intact. Normal speech. Normal gait. PSYCHIATRIC: Cooperative. SKIN: diffuse targetoid lesions on trunk, back, upper and lower extremities. Non blanching, tender to palpation - otherwise only pruritic. ranging in size from 2-3 cm to 6-7 cm Laboratory Results - last 24 hr 06/21/17 06/21/17 06/21/17 14:10 16:15 16:15 WBC 19.7 H D RBC 5.09 Hgb 15.3 Hct 46.2 H MCV 90.8 MCH 30.0 MCHC 33.0 RDW 15.0 Plt Count 262 MPV 10.2 Neutrophils % 94.6 H D Lymphocytes % 3.3 L D Monocytes % 1.9 L Eosinophils % 0.1 D Basophils % 0.1 PT with INR 19.70 H INR 1.74 H PTT (Actin FS) 28.3 Albumin Urine Color Yellow Urine Appearance Slcloudy Urine pH 5.0 D Ur Specific [place] 1.010 Urine Protein Negative Urine Glucose (UA) Negative Urine Ketones Negative Urine Blood Negative Urine Nitrite Negative Urine Bilirubin Negative Urine Urobilinogen Negative Ur Leukocyte Esterase 2+ H Urine WBC (Auto) 29 Urine RBC (Auto) 2 Ur Epithelial Cells Few Urine Bacteria Rare Hyaline Casts 17 Urine Mucus Rare 06/21/17 06/21/17 06/21/17 16:15 16:15 17:09 INR PTT (Actin FS) Sodium 136 Potassium 4.2 Chloride 101 Carbon Dioxide 23 Anion Gap 12 BUN 21 H Creatinine 1.3 H Creat Clearance w eGFR 41.11 Random Glucose 198 H Lactic Acid 1.0 Calcium 8.3 L Magnesium 2.1 Total Bilirubin 0.8 D AST 19 ALT 15 Alkaline Phosphatase 66 C-Reactive Protein 13.1 H Total Protein 6.8 Albumin 3.3 L Urine Color TESTS -Urine cx -pending -Blood cx - pending ASSESSMENT/PLAN: 66 y/o F with PMH HTN, HLD, Parkinson's dz, Lupus (dx via skin biopsy RLE; was on Prednisone, however does not take 2/2 bloating), Fibromyalgia, DM, CHF, COPD (on 2L at home), sleep apnea (on CPAP), atrial fibrillation (on coumadin), anemia, asthma, glaucoma, MV replacement, CVA, spinal stenosis, CAD s/p 2 stents (2014), who presents to the ED c/o worsening rash over the past four days. Pt admitted to med-surg obs for erythema multiforme 2/2 ?infectious, rheumatologic, or possible drug side effect. #Erythema multiforme 2/2 discoid lupus, sweet syndrome or possible drug effect/ allergic rxn -Pt without sepsis criteria - afebrile, without tachycardia, lactate WNL -Chronic white count (19.7), with neutrophilia -May be discoid lupus, or sweet syndrome- targetoid lesions, abrupt onset, neutrophilic infiltrate, painful plaques -Erythema multiforme- may be from viral etiologies such as HSV, EBV, hepatitis , histo. Could also be auto-immune , pt with possible discoid lupus currently not on tx, could also be bacterial, idiopathic -Received solumedrol 125mg, Benadryl 50, 25 in ED -Benadryl 50mg PO q6h PRN for pruritis -Hold NSAIDs -F/u Hep A, B, C testing -F/u urine cx, blood cx -F/u C3, C4, CH50 - unable to order as "inpatient" recommend ordering -Consider skin bx -Rheum consult- Dr. Sapp -ID consult-Dr. Mata, has seen in past -Derm consult- #Intermittent chest pain may be 2/2 lupus -Serosa may have been affected, has had in the past -Less likely cardiac, not in mid-sternal area - diffuse, not affected by rest -F/u initial trop - if (-) no need to trend -EKG WNL #atrial fibrillation, with MV replacement -EKG WNL- sinus -F/u INR 2.5-3.5 since with prosthetic MV -Started on hep gtt since sub-therapeutic - can bridge with coumadin 9mg POqd until therapeutic #Lupus -Hx of past skin biopsy with evidence of lupus. Dx 2004 - was on MTX but d/c d/ t hair falling out -Currently not compliant with Prednisone 10mg PO qd. -Started on prednisone 40mg PO qd -Rheum follow-up - Dr. Sapp - will need baseline meds #CAD with hx 2 stents (2014) -Continue Ranexa 500 mg PO BID #HTN- controlled -Continue topamax 150 mg PO BID -Verapamil 240mg PO qd #CHF -Continue torsemide 20mg PO TID -Continue digoxin 0.25mg PO qd -F/u digoxin level -Fluid restriction -Daily weights -Strict I's and O's -Na controlled - 2g #COPD (on 2L at baseline) -Continue NC 02 as needed - 2L rec now -Elevate HOB for better air entry -Nebs 1amp QID CHRIS #Sleep apnea -Continue CPAP at night #DM -Holding home insulin aspart, detemir -BGM -ISS ACHS #Parkinson's disease -Continue carbidopa/levodopa 25-100 - one each qd -pramipexole 1.5 mg PO qHS -Continue outpatient neuro f/u #Fibromyalgia -Continue Lyrica 25 mg PO BID #F/E/N -No need for IVF at this time, avoid vol overload - pt w CHF -Serial lytes -Sodium controlled, diabetic diet #PPX DVT: on hep gtt #Dispo med surg - obs Visit type - Emergency Visit Emergency Visit: Yes ED Registration Date: 06/21/17 Care time: The patient presented to the Emergency Department on the above date and was hospitalized for further evaluation of their emergent condition. - New Patient This patient is new to me today: Yes Date on this admission: 06/22/17 - Critical Care Critical Care patient: No Hospitalist Screening - Colonoscopy Questionnaire Colonoscopy Questionnaire: Colonoscopy Questionnaire - Patient: 50 - 75 years old and never had a screening colonoscopy: Unknown History of colon or rectal polyps, or CA: Unknown History of IBD, Crohn's disease or UC: Unknown History of abdominal radiation therapy as a child: Unknown - Relative: 1 with colon or rectal CA, or polyps at age 60 or younger: Unknown Colon or rectal CA diagnosed at age 45 or younger: Unknown Multiple relatives with colon or rectal CA: Unknown - Outcome: Screening Result: Negative Screen
[2017-06-21] MEDS ORDERED: diphenhydrAMINE HCL 25 MG CAPSULE (FP) PO PRN (21:25)
[2017-06-21] MEDS ORDERED: diphenhydrAMINE HCL 25 MG CAPSULE (FP) PO ONE (22:00)
[2017-06-21] MEDS ORDERED: ALBUTEROL SO4 0.083% IH SOL 2.5 MG/3 ML VIAL.NEB. NEB SCH (22:00)
[2017-06-21] MEDS: INSULIN SLIDING SCALE (NOVOLOG) 1 VIAL SQ SCH (22:57)
[2017-06-21] MEDS: WARFARIN NA 3 MG TABLET PO SCH (22:57)
[2017-06-21] MEDS: RANOLAZINE E.R. 500 MG TABLET (FP) PO SCH (22:58)
[2017-06-21] MEDS: PRAMIPEXOLE DIHYDROCHLORIDE 0.5 MG TABLET PO SCH (22:58)
[2017-06-21] MEDS: CARBIDOPA/LEVODOPA 25/100 TABLET (FP) PO SCH (22:58)
[2017-06-21] MEDS: ARTIFICIAL TEARS (POLYVINYL ALCOHOL 1.4%) OPTH DROPS OD SCH (22:58)
[2017-06-21] MEDS: PREGABALIN 25 MG CAPSULE PO SCH (22:59)
[2017-06-21] MEDS ORDERED: HEPARIN NA (PORCINE) 5,000 UNITS/ML 1ML VIAL IVPUSH PRN (23:37)
[2017-06-21] MEDS: HEPARIN - 25,000 UNIT in SODIUM CHLORIDE 495 ML IV SCH (23:51)
[2017-06-22] MEDS: CARBIDOPA/LEVODOPA 25/100 TABLET (FP) PO SCH ×3 (06:22→22:00)
[2017-06-22] MEDS: INSULIN SLIDING SCALE (NOVOLOG) 1 VIAL SQ SCH ×4 (06:25→22:03)
[2017-06-22] MEDS: diphenhydrAMINE HCL 25 MG CAPSULE (FP) PO PRN ×4 (06:28→23:30)
[2017-06-22] MEDS: ALBUTEROL SO4 0.083% IH SOL 2.5 MG/3 ML VIAL.NEB. NEB SCH ×4 (07:45→21:20)
[2017-06-22 08:42] LABS: HEMATOCRIT 39.2 % (32.4-45.2); HEMOGLOBIN 12.7 GM/dL (10.7-15.3); MCH 29.6 pg (25.7-33.7); MCHC 32.3 g/dl (32.0-36.0); MEAN CELL VOLUME 91.4 fl (80-96); MEAN PLT VOLUME 10.5 fl (7.5-11.1); PLATELET COUNT 246 K/MM3 (134-434); RBC 4.29 M/mm3 (3.60-5.2); RDW 14.8 % (11.6-15.6); WHITE BLOOD COUNT 15.8 K/mm3 (4.0-10.0)
[2017-06-22 08:47] LABS: INR 1.68 (0.82-1.09)
[2017-06-22 08:48] LABS: CHLORIDE 103 mmol/L (98-107); POTASSIUM 3.6 mmol/L (3.5-5.1); SODIUM 137 mmol/L (136-145)
[2017-06-22 09:07] LABS: ALK PHOS 56 U/L (45-117); ANION GAP 9 (8-16); BILIRUBIN,TOTAL 0.3 mg/dL (0.2-1.0); BLOOD UREA NITROGEN 26 mg/dL (7-18); CALCIUM 8.2 mg/dL (8.5-10.1); CO2 25 mmol/L (21-32); CREATININE 1.1 mg/dL (0.55-1.02); GLUCOSE,RANDOM 256 mg/dL (74-106); PHOSPHOROUS 2.7 mg/dL (2.5-4.9); SGOT/AST 8 U/L (15-37); SGPT/ALT 10 U/L (12-78); TOT PROT 6.1 g/dl (6.4-8.2)
[2017-06-22] MEDS ORDERED: PT OWN MED DRAWER 7, Y5N ONE ×3 (09:21→19:16)
[2017-06-22] MEDS ORDERED: cefTRIAXone SODIUM 1 GM VIAL ONE (09:21)
[2017-06-22] MEDS ORDERED: DEXTROSE 5%-WATER - 50 ML IVPB ONE (09:21)
[2017-06-22] MEDS: RANOLAZINE E.R. 500 MG TABLET (FP) PO SCH ×2 (09:27→21:59)
[2017-06-22] MEDS: ARTIFICIAL TEARS (POLYVINYL ALCOHOL 1.4%) OPTH DROPS OD SCH ×4 (09:27→22:05)
[2017-06-22] MEDS: CITALOPRAM HYDROBROMIDE 10 MG TABLET (FP) PO SCH (09:28)
[2017-06-22] MEDS: VERAPAMIL HCL 240 MG E.R. TABLET (FP) PO SCH (09:30)
[2017-06-22] MEDS: TORSEMIDE 20 MG TABLET (FP) PO SCH (09:31)
[2017-06-22] MEDS: CEFTRIAXONE 1 GM in DEXTROSE 5%-WATER - 50 ML IVPB SCH (09:32)
[2017-06-22] MEDS: DIGOXIN 0.25 MG TABLET (FP) PO SCH (09:35)
[2017-06-22] MEDS: PREGABALIN 25 MG CAPSULE PO SCH ×2 (09:36→21:59)
[2017-06-22] MEDS ORDERED: predniSONE 5 MG TABLET (UD) PO SCH (10:00)
[2017-06-22] MEDS ORDERED: predniSONE 20 MG TABLET (UD) PO SCH (10:00)
--- NOTE | 2017-06-22 10:20 | PN ---
Progress Note, Physician Chief Complaint: PATIENT SEEN AND EXAMINED NOTES AND CHARTS REVIEWED THIS IS MY FIRST ENCOUNTER WITH THIS PATIENT AWAKE ALERT IN MOD DISTRESS - Current Medication List Current Medications: Active Medications Albuterol Sulfate (Ventolin 0.083% Nebulizer Soln -) 1 amp NEB RQID [facility] Last Admin: 06/22/17 07:45 Dose: 1 amp Artificial Tears (Artificial Tears) 1 drop OD QID [facility] Last Admin: 06/22/17 09:27 Dose: 1 drop Bupropion HCl (Wellbutrin Xl -) 300 mg PO DAILY [facility] Last Admin: 06/22/17 09:35 Dose: 300 mg Carbidopa/Levodopa (Sinemet 25/100 -) 1 each PO TID [facility] Last Admin: 06/22/17 06:22 Dose: 1 each Citalopram Hydrobromide (Celexa -) 10 mg PO DAILY [facility] Last Admin: 06/22/17 09:28 Dose: 10 mg Digoxin (Lanoxin -) 0.25 mg PO DAILY [facility] Last Admin: 06/22/17 09:35 Dose: 0.25 mg Diphenhydramine HCl (Benadryl -) 50 mg PO Q6H PRN PRN Reason: FOR ITCHING Last Admin: 06/22/17 06:28 Dose: 50 mg Heparin Sodium (Porcine) (Heparin -) 1,000 unit IVPUSH PRN PRN PRN Reason: Heparin Heparin Sodium (Porcine) (Heparin -) 5,000 unit IVPUSH PRN PRN PRN Reason: Heparin Ceftriaxone Sodium 1 gm/ (Dextrose) 50 mls @ 100 mls/hr IVPB DAILY [facility] Last Admin: 06/22/17 09:32 Dose: 100 mls/hr Heparin Sodium (Porcine) 25, (000 unit/ Sodium Chloride) 500 mls @ 20 mls/hr IV TITR CHRIS; 1,000 UNIT/HR PRN Reason: Protocol Last Admin: 06/21/17 23:51 Dose: 1,000 unit/hr, 20 mls/hr Insulin Aspart (Novolog Vial Sliding Scale -) 1 vial SQ ACHS CHRIS PRN Reason: Protocol Last Admin: 06/22/17 06:25 Dose: 6 units Pramipexole Dihydrochloride (Mirapex -) 1.5 mg PO HS [facility] Last Admin: 06/21/17 22:58 Dose: 1.5 mg Prednisone (Deltasone -) 40 mg PO DAILY [facility] Last Admin: 06/22/17 09:37 Dose: 40 mg Pregabalin (Lyrica -) 25 mg PO BID [facility] Last Admin: 06/22/17 09:36 Dose: 25 mg Ranolazine (Ranexa -) 500 mg PO BID [facility] Last Admin: 06/22/17 09:27 Dose: 500 mg Torsemide (Demadex -) 20 mg PO DAILY [facility] Last Admin: 06/22/17 09:31 Dose: 20 mg Verapamil HCl (Calan Sr -) 240 mg PO DAILY [facility] Last Admin: 06/22/17 09:30 Dose: 240 mg Warfarin Sodium (Coumadin -) 9 mg PO 1800 [facility] Last Admin: 06/21/17 22:57 Dose: 9 mg - Objective Vital Signs: Vital Signs Temperature 97.7 F 06/22/17 06:00 Pulse Rate 67 06/22/17 09:35 Respiratory Rate 20 06/22/17 06:00 Blood Pressure 132/42 06/22/17 06:00 O2 Sat by Pulse Oximetry (%) 96 06/22/17 04:39 Constitutional: Yes: Moderate Distress Eyes: Yes: WNL HENT: Yes: WNL Neck: Yes: WNL Cardiovascular: Yes: Murmur Respiratory: Yes: WNL Gastrointestinal: Yes: WNL Genitourinary: Yes: WNL Musculoskeletal: Yes: WNL Extremities: Yes: Erythema Edema: Yes Peripheral Pulses WNL: Yes Integumentary: Yes: Erythema, Rash Wound/Incision: Yes: Dressing Dry and Intact Neurological: Yes: Pre-Existing Deficit ...Motor Strength: LLE, RLE Psychiatric: Yes: Other Labs: CBC, BMP 06/22/17 07:30 06/22/17 07:30 INR, PTT INR 1.68 (0.82-1.09) H 06/22/17 07:30 Problem List - Problems (1) Erythema multiforme minor Code(s): L51.9 - ERYTHEMA MULTIFORME, UNSPECIFIED (2) Afib Code(s): I48.91 - UNSPECIFIED ATRIAL FIBRILLATION Qualifiers: Atrial fibrillation type: paroxysmal Qualified Code(s): I48.0 - Paroxysmal atrial fibrillation (3) Anterior epistaxis Code(s): R04.0 - EPISTAXIS (4) Anticoagulated Code(s): Z79.01 - BOW MAKER CUSTOM (CURRENT) USE OF ANTICOAGULANTS (5) Asthma exacerbation in COPD Code(s): J44.1 - CHRONIC OBSTRUCTIVE PULMONARY DISEASE W (ACUTE) EXACERBATION; J45.901 - UNSPECIFIED ASTHMA WITH (ACUTE) EXACERBATION (6) CAD (coronary artery disease) Code(s): I25.10 - ATHSCL HEART DISEASE OF [place] CORONARY ARTERY W/O ANG PCTRS (7) CHF (congestive heart failure) Code(s): I50.9 - HEART FAILURE, UNSPECIFIED (8) COPD (chronic obstructive pulmonary disease) Code(s): J44.9 - CHRONIC OBSTRUCTIVE PULMONARY DISEASE, UNSPECIFIED Qualifiers: COPD type: COPD with acute exacerbation Qualified Code(s): J44.1 - Chronic obstructive pulmonary disease with (acute) exacerbation (9) Cellulitis Code(s): L03.90 - CELLULITIS, UNSPECIFIED Qualifiers: Site of cellulitis of extremity: lower extremity Laterality: left (10) Controlled diabetes mellitus with diabetic peripheral angiopathy without gangrene, with long-term current use of insulin Code(s): E11.51 - TYPE 2 DIABETES W DIABETIC PERIPHERAL ANGIOPATH W/O GANGRENE; Z79.4 - GROUP HOME (CURRENT) USE OF INSULIN (11) Obesities, morbid Code(s): E66.01 - MORBID (SEVERE) OBESITY DUE TO EXCESS CALORIES (12) S/P MVR (mitral valve replacement) Code(s): Z95.2 - PRESENCE OF PROSTHETIC HEART VALVE (13) SLE (systemic lupus erythematosus) Code(s): M32.9 - SYSTEMIC LUPUS ERYTHEMATOSUS, UNSPECIFIED Assessment/Plan AC PER CARDIOLOGY IV ABX IV STEROIDS ID AND DERM CONSULT OOB TO CHAIR LUPUS PAIN CONTROL BLOOD CX PENDING
[2017-06-22] MEDS: HEPARIN NA (PORCINE) 5,000 UNITS/ML 1ML VIAL IVPUSH PRN (10:31)
--- NOTE | 2017-06-22 14:09 | PN ---
Progress Note (short form) - Note Progress Note: ID consult dictated impr/reccd 66 year old female with hisotyr of lupus/fibromyalgia- doesnot take prednisone, copd on home oxygen, sleep apnea- uses bipap cabg and MRV 2006- on coumadin admitted with fevers of 100, nausea and worsening rash since Sunday she reports possibly eating some food Sunday that may have had seafood in it- on she had temp 100, felt itchy and had nausea symptoms persisted all week she was an opthomologist , a neurologist during the week for routine f/u, also saw an career services officer yesterday who prescribed certrizine for hives she was advised ER eval by PMD and came to ED yesterday not sexually active for many years PMD-Dr España in ED she was noted to have diffuse targetoid rash given solumedrol, vancomycin and rocephin as well as benadryl no oral lesions does give history of frequent cold sores- none recently no recent systemic antibiotics, no new meds no sick contacts reports discomfort with urination which is new currently on ceftriaxone and steroids skin rash/leukocytosis agree that clinically this is c/w erythema multiforme- no evidence of oral/eye lesions, urticaria also another possibility most commonly viral trigger-HSV most common ebv and cmv possible too nothing to suggest pneumonia (mycoplasma most common) possible UTI agree with derm eval continue prednisone f/u blood cultures possible uti- symptomatic with pyuria, continue ceftriaxone history of MVR- on coumadin history of lupus/fibromyalgia Problem List - Problems (1) Skin rash Code(s): R21 - RASH AND OTHER NONSPECIFIC SKIN ERUPTION (2) UTI (lower urinary tract infection) Code(s): N39.0 - URINARY TRACT INFECTION, SITE NOT SPECIFIED (3) S/P MVR (mitral valve replacement) Code(s): Z95.2 - PRESENCE OF PROSTHETIC HEART VALVE (4) Lupus Code(s): L93.0 - DISCOID LUPUS ERYTHEMATOSUS
--- NOTE | 2017-06-22 15:11 | PN ---
Problem List - Problems (1) Skin rash Code(s): R21 - RASH AND OTHER NONSPECIFIC SKIN ERUPTION (2) UTI (lower urinary tract infection) Code(s): N39.0 - URINARY TRACT INFECTION, SITE NOT SPECIFIED (3) S/P MVR (mitral valve replacement) Code(s): Z95.2 - PRESENCE OF PROSTHETIC HEART VALVE (4) Lupus Code(s): L93.0 - DISCOID LUPUS ERYTHEMATOSUS
--- NOTE | 2017-06-22 15:24 | CONSULT ---
Consult Consult Specialty:: Hematology - History of Present Illness History of Present Illness: 66 y/o F with PMH HTN, HLD, Parkinson's dz, Lupus (dx 2005. was on MTX, no longer d/t adverse effects. had skin biopsy RLE; was also on Prednisone, however does not take 2/2 bloating), Fibromyalgia, DM, CHF, COPD (on 2L at home) , sleep apnea (on CPAP), atrial fibrillation (on coumadin), anemia, asthma, glaucoma, MV replacement, CVA, spinal stenosis, CAD s/p 2 stents (2014), who presents to the ED c/o worsening rash over the past four days. Seen and examined. 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, Other (light-headedness and dizziness) Cardio/Vascular: Yes: AFIB, CAD, CHF, HTN, Hyperlipdemia, Other (S/P [facility] mitral valve replacement) Pulmonary: Yes: Asthma, COPD, Sleep Apnea (on CPAP at night) Gastrointestinal: Yes: Constipation, Diverticulosis, GI Bleed, Hemorrhoids ...: No Musculoskeletal: Yes: Chronic low back pain, Other (Spinal stenosis) Rheumatology: Yes: Lupus, Other (APLAS (BOTH LUPUS AND APLS ARE QUESTIONABLE)) Endocrine: Yes: Diabetes Mellitus - Past Surgical History Past Surgical History: Yes: CABG, Cholecystectomy, Hysterectomy, Oopherectomy - Alcohol/Substance Use Hx Alcohol Use: No History of Substance Use: reports: None - Smoking History Smoking history: Never smoked Have you smoked in the past 12 months: No Aproximately how many cigarettes per day: 0 If you are a former smoker, when did you quit?: many years - Social History Usual Living Arrangement: With Spouse ADL: Independent History of Recent Travel: No Home Medications - Allergies Allergies/Adverse Reactions: Allergies Allergy/AdvReac Type Severity Reaction Status Date / Time lactose Allergy Mild Verified 06/21/17 12:45 Beta-Blockers Allergy Verified 06/21/17 12:45 (Beta-Adrenergic Bloc Iodinated Contrast- Oral and Allergy Verified 06/21/17 12:45 IV Dye [IV Dye, Iodine Containing Contrast ] shellfish derived Allergy Verified 06/21/17 12:45 - Home Medications Home Medications: Ambulatory Orders Albuterol 0.083% Nebulizer Brigitte [Ventolin 0.083%] 1 neb NEB QID 06/21/17 Bupropion HCl [Wellbutrin Xl] 300 mg PO DAILY 06/21/17 Carbidopa/Levodopa 25/100 [Sinemet 25/100 -] 1 each PO HS 06/21/17 Carbidopa/Levodopa [Carbidopa-Levodopa 25-100 Tab] 1 each PO TID 06/21/17 Cholecalciferol (Vitamin D3) [Vitamin D3 -] 1,000 unit PO DAILY 06/21/17 Citalopram Hydrobromide [Celexa -] 10 mg PO DAILY 06/21/17 Digoxin [Lanoxin -] 0.25 mg PO DAILY 06/21/17 Ferrous Sulfate [Iron] 325 mg PO DAILY 06/21/17 Hypromellose 0.5% Opth Soln [Artificial Tears] 1 drop OD QID 06/21/17 Insulin Aspart [Novolog] 6 unit SQ TID 06/21/17 Insulin Detemir [Levemir Flextouch] 30 unit SQ HS 06/21/17 Pantoprazole Sodium [Protonix] 40 mg PO TID 06/21/17 Pramipexole Di-HCl [Mirapex] 1.5 mg PO HS 06/21/17 Pramipexole Di-HCl [Pramipexole ER] 0.5 mg PO TID 06/21/17 Pramipexole Di-HCl [Pramipexole ER] 1 mg PO HS 06/21/17 Prednisone 10 mg PO DAILY 06/21/17 Pregabalin [Lyrica] 25 mg PO BID 06/21/17 Ranolazine [Ranexa] 500 mg PO BID 06/21/17 Topiramate [Topamax] 150 mg PO BID 06/21/17 Torsemide [Demadex] 20 mg PO TID 06/21/17 Verapamil HCl [Calan Sr] 240 mg PO DAILY 06/21/17 Warfarin Sodium [Coumadin] 9 mg PO HS 06/21/17 Family Disease History - Family Disease History Family Disease History: Diabetes: Grandparent, Mother, Heart Disease: Father, Other: Sister (Lupus) Physical Exam Vital Signs: Vital Signs Temperature 98.0 F 06/22/17 10:00 Pulse Rate 67 06/22/17 10:00 Respiratory Rate 18 06/22/17 10:00 Blood Pressure 121/64 06/22/17 10:00 O2 Sat by Pulse Oximetry (%) 96 06/22/17 04:39 Constitutional: Yes: Well Nourished, No Distress Eyes: Yes: Conjunctiva Clear, EOM Intact HENT: Yes: Atraumatic, Normocephalic Neck: Yes: Supple, Trachea Midline Cardiovascular: Yes: Regular Rate and Rhythm Respiratory: Yes: Regular, CTA Bilaterally Gastrointestinal: Yes: Normal Bowel Sounds, Soft Integumentary: Yes: Erythema Labs: CBC, BMP 06/22/17 07:30 06/22/17 07:30 Assessment/Plan EM: ?etiology derm consult on prednisone h/o APLS: c/w AC rheum c/s next week , serologies to be ordered MVR Prosthetic c/w Hep to coumadin [facility] UTI: ID input noted h/o Fe def Anemia: Now Hgb wnl she is on iron supplements
--- NOTE | 2017-06-22 16:34 | CONSULT ---
Consult Consult Specialty:: endocrine Referred by:: dr.annabi mathis Reason for Consultation:: diabetes mellitus - History of Present Illness Chief Complaint: rash History of Present Illness: 66 y/o F with PMH HTN, HLD, Parkinson's dz, Lupus (dx 2005. was on MTX, no longer d/t adverse effects. had skin biopsy RLE; was also on Prednisone, however does not take 2/2 bloating), Fibromyalgia, DM, CHF, COPD (on 2L at home) , sleep apnea (on CPAP), atrial fibrillation (on coumadin), anemia, asthma, glaucoma, MV replacement, CVA, spinal stenosis, CAD s/p 2 stents (2014), who presents to the ED c/o worsening rash over the past four days. As per patient, on Sunday, she ate an egg roll that may have been contaminated with shellfish. Pt is allergic and has developed a maculopapular rash from this in the past. 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: CVA, Migraine, Other (light-headedness and dizziness) Cardio/Vascular: Yes: AFIB, CAD, CHF, HTN, Hyperlipdemia, Other (S/P [facility] mitral valve replacement) Pulmonary: Yes: Asthma, COPD, Sleep Apnea (on CPAP at night) Gastrointestinal: Yes: Constipation, Diverticulosis, GI Bleed, Hemorrhoids ...: No Musculoskeletal: Yes: Chronic low back pain, Other (Spinal stenosis) Rheumatology: Yes: Lupus, Other (APLAS (BOTH LUPUS AND APLS ARE QUESTIONABLE)) Endocrine: Yes: Diabetes Mellitus - Past Surgical History Past Surgical History: Yes: CABG, Cholecystectomy, Hysterectomy, Oopherectomy - Alcohol/Substance Use Hx Alcohol Use: No History of Substance Use: reports: None - Smoking History Smoking history: Never smoked Have you smoked in the past 12 months: No Aproximately how many cigarettes per day: 0 If you are a former smoker, when did you quit?: many years - Social History Usual Living Arrangement: With Spouse ADL: Independent History of Recent Travel: No Home Medications - Allergies Allergies/Adverse Reactions: Allergies Allergy/AdvReac Type Severity Reaction Status Date / Time lactose Allergy Mild Verified 06/21/17 12:45 Beta-Blockers Allergy Verified 06/21/17 12:45 (Beta-Adrenergic Bloc Iodinated Contrast- Oral and Allergy Verified 06/21/17 12:45 IV Dye [IV Dye, Iodine Containing Contrast ] shellfish derived Allergy Verified 06/21/17 12:45 - Home Medications Home Medications: Ambulatory Orders Albuterol 0.083% Nebulizer Brigitte [Ventolin 0.083%] 1 neb NEB QID 06/21/17 Bupropion HCl [Wellbutrin Xl] 300 mg PO DAILY 06/21/17 Carbidopa/Levodopa 25/100 [Sinemet 25/100 -] 1 each PO HS 06/21/17 Carbidopa/Levodopa [Carbidopa-Levodopa 25-100 Tab] 1 each PO TID 06/21/17 Cholecalciferol (Vitamin D3) [Vitamin D3 -] 1,000 unit PO DAILY 06/21/17 Citalopram Hydrobromide [Celexa -] 10 mg PO DAILY 06/21/17 Digoxin [Lanoxin -] 0.25 mg PO DAILY 06/21/17 Ferrous Sulfate [Iron] 325 mg PO DAILY 06/21/17 Hypromellose 0.5% Opth Soln [Artificial Tears] 1 drop OD QID 06/21/17 Insulin Aspart [Novolog] 6 unit SQ TID 06/21/17 Insulin Detemir [Levemir Flextouch] 30 unit SQ HS 06/21/17 Pantoprazole Sodium [Protonix] 40 mg PO TID 06/21/17 Pramipexole Di-HCl [Mirapex] 1.5 mg PO HS 06/21/17 Pramipexole Di-HCl [Pramipexole ER] 0.5 mg PO TID 06/21/17 Pramipexole Di-HCl [Pramipexole ER] 1 mg PO HS 06/21/17 Prednisone 10 mg PO DAILY 06/21/17 Pregabalin [Lyrica] 25 mg PO BID 06/21/17 Ranolazine [Ranexa] 500 mg PO BID 06/21/17 Topiramate [Topamax] 150 mg PO BID 06/21/17 Torsemide [Demadex] 20 mg PO TID 06/21/17 Verapamil HCl [Calan Sr] 240 mg PO DAILY 06/21/17 Warfarin Sodium [Coumadin] 9 mg PO HS 06/21/17 Family Disease History - Family Disease History Family Disease History: Diabetes: Grandparent, Mother, Heart Disease: Father, Other: Sister (Lupus) Review of Systems - Review of Systems Constitutional: reports: Lethargy, Weakness Eyes: reports: Blurred Vision HENT: reports: Throat Pain Neck: reports: Pain on Movement Cardiovascular: reports: Shortness of Breath Respiratory: reports: Exercise Intolerance, SOB on Exertion, Wheezing Gastrointestinal: reports: Diarrhea Genitourinary: reports: Frequency Breasts: reports: No Symptoms Reported Musculoskeletal: reports: Joint Swelling, Muscle Pain, Muscle Cramps, Muscle Weakness Integumentary: reports: Lesions Neurological: reports: Dizziness, Unsteady Gait, Weakness Endocrine: reports: Unexplained Weight Gain Physical Exam Vital Signs: Vital Signs Temperature 98.0 F 06/22/17 14:37 Pulse Rate 64 06/22/17 14:37 Respiratory Rate 22 06/22/17 14:37 Blood Pressure 135/55 06/22/17 14:37 O2 Sat by Pulse Oximetry (%) 96 06/22/17 04:39 Labs: CBC, BMP 06/22/17 07:30 06/22/17 07:30 Assessment/Plan dm hyperglycemia insulin resistant asthmatic bronchitis sle lupus anticoagulant cad / paf sp mvr sleep apnea morbid obesity erythema rash sp urti vs allergic reaction Abnormal Lab Results 06/21/17 06/21/17 06/21/17 16:15 16:15 16:15 WBC 19.7 H D Hct 46.2 H Neutrophils % 94.6 H D Lymphocytes % 3.3 L D Monocytes % 1.9 L PT with INR 19.70 H INR 1.74 H PTT (Actin FS) BUN 21 H Creatinine 1.3 H Random Glucose 198 H Calcium 8.3 L AST ALT C-Reactive Protein Total Protein Albumin 3.3 L 06/21/17 06/22/17 06/22/17 17:09 07:30 07:30 WBC 15.8 H Hct Neutrophils % Lymphocytes % Monocytes % PT with INR 19.00 H INR 1.68 H PTT (Actin FS) BUN Creatinine Random Glucose Calcium AST ALT C-Reactive Protein 13.1 H Total Protein Albumin 06/22/17 06/22/17 07:30 07:30 WBC Hct Neutrophils % Lymphocytes % Monocytes % PT with INR INR PTT (Actin FS) 34.8 H BUN 26 H Creatinine 1.1 H Random Glucose 256 H Calcium 8.2 L AST 8 L ALT 10 L C-Reactive Protein Total Protein 6.1 L Albumin 3.0 L Laboratory Results - last 24 hr 06/21/17 06/21/17 06/21/17 07:30 16:15 16:15 WBC 19.7 H D RBC 5.09 Hgb 15.3 Hct 46.2 H MCV 90.8 MCH 30.0 MCHC 33.0 RDW 15.0 Plt Count 262 MPV 10.2 Neutrophils % 94.6 H D Lymphocytes % 3.3 L D Monocytes % 1.9 L Eosinophils % 0.1 D Basophils % 0.1 ESR PT with INR 19.70 H INR 1.74 H PTT (Actin FS) 28.3 Sodium Potassium Chloride Carbon Dioxide Anion Gap BUN Creatinine Creat Clearance w eGFR POC Glucometer Random Glucose Lactic Acid Calcium Phosphorus Magnesium Total Bilirubin AST ALT Alkaline Phosphatase Troponin I < 0.02 C-Reactive Protein Total Protein Albumin Digoxin 06/21/17 06/21/17 06/21/17 16:15 16:15 17:09 WBC RBC Hgb Hct MCV MCH MCHC RDW Plt Count MPV Neutrophils % Lymphocytes % Monocytes % Eosinophils % Basophils % ESR PT with INR INR PTT (Actin FS) Sodium 136 Potassium 4.2 Chloride 101 Carbon Dioxide 23 Anion Gap 12 BUN 21 H Creatinine 1.3 H Creat Clearance w eGFR 41.11 POC Glucometer Random Glucose 198 H Lactic Acid 1.0 Calcium 8.3 L Phosphorus Magnesium 2.1 Total Bilirubin 0.8 D AST 19 ALT 15 Alkaline Phosphatase 66 Troponin I C-Reactive Protein 13.1 H Total Protein 6.8 Albumin 3.3 L Digoxin 06/21/17 06/21/17 06/22/17 17:09 22:42 02:15 WBC RBC Hgb Hct MCV MCH MCHC RDW Plt Count MPV Neutrophils % Lymphocytes % Monocytes % Eosinophils % Basophils % ESR 15 PT with INR INR PTT (Actin FS) Sodium Potassium Chloride Carbon Dioxide Anion Gap BUN Creatinine Creat Clearance w eGFR POC Glucometer 383 294 Random Glucose Lactic Acid Calcium Phosphorus Magnesium Total Bilirubin AST ALT Alkaline Phosphatase Troponin I C-Reactive Protein Total Protein Albumin Digoxin 06/22/17 06/22/17 06/22/17 06:24 07:30 07:30 WBC 15.8 H RBC 4.29 Hgb 12.7 D Hct 39.2 D MCV 91.4 MCH 29.6 MCHC 32.3 RDW 14.8 Plt Count 246 MPV 10.5 Neutrophils % Lymphocytes % Monocytes % Eosinophils % Basophils % ESR PT with INR 19.00 H INR 1.68 H PTT (Actin FS) Sodium Potassium Chloride Carbon Dioxide Anion Gap BUN Creatinine Creat Clearance w eGFR POC Glucometer 279 Random Glucose Lactic Acid Calcium Phosphorus Magnesium Total Bilirubin AST ALT Alkaline Phosphatase Troponin I C-Reactive Protein Total Protein Albumin Digoxin 06/22/17 06/22/17 06/22/17 07:30 07:30 11:46 WBC RBC Hgb Hct MCV MCH MCHC RDW Plt Count MPV Neutrophils % Lymphocytes % Monocytes % Eosinophils % Basophils % ESR PT with INR INR PTT (Actin FS) 34.8 H Sodium 137 Potassium 3.6 Chloride 103 Carbon Dioxide 25 Anion Gap 9 BUN 26 H Creatinine 1.1 H Creat Clearance w eGFR 49.85 POC Glucometer 274 Random Glucose 256 H Lactic Acid Calcium 8.2 L Phosphorus 2.7 Magnesium 2.0 Total Bilirubin 0.3 D AST 8 L ALT 10 L Alkaline Phosphatase 56 Troponin I C-Reactive Protein Total Protein 6.1 L Albumin 3.0 L Digoxin 1.2223 plan: bgm qid novolog insulin doses levemir 20 units bid dermatology consult
[2017-06-22] MEDS: WARFARIN NA 3 MG TABLET PO SCH (17:37)
[2017-06-22] MEDS ORDERED: WARFARIN NA 3 MG TABLET PO SCH (18:00)
[2017-06-22] MEDS: PRAMIPEXOLE DIHYDROCHLORIDE 0.5 MG TABLET PO SCH (21:59)
[2017-06-22] MEDS: INSULIN DETEMIR 100 UNITS/ML MDV SQ SCH (22:01)
[2017-06-23] MEDS: HEPARIN - 25,000 UNIT in SODIUM CHLORIDE 495 ML IV SCH (02:36)
[2017-06-23] MEDS: HEPARIN NA (PORCINE) 5,000 UNITS/ML 1ML VIAL IVPUSH PRN (02:39)
[2017-06-23] MEDS: CARBIDOPA/LEVODOPA 25/100 TABLET (FP) PO SCH ×3 (06:02→21:55)
[2017-06-23] MEDS: diphenhydrAMINE HCL 25 MG CAPSULE (FP) PO PRN ×3 (06:02→21:58)
[2017-06-23] MEDS: INSULIN SLIDING SCALE (NOVOLOG) 1 VIAL SQ SCH ×4 (06:03→22:06)
[2017-06-23 07:15] LABS: HEMATOCRIT 36.3 % (32.4-45.2); MCH 30.1 pg (25.7-33.7); MCHC 33.1 g/dl (32.0-36.0); MEAN CELL VOLUME 90.7 fl (80-96); MEAN PLT VOLUME 10.7 fl (7.5-11.1); PLATELET COUNT 252 K/MM3 (134-434); RDW 14.9 % (11.6-15.6); WHITE BLOOD COUNT 13.7 K/mm3 (4.0-10.0)
[2017-06-23 08:24] LABS: PROTHROMBIN TIME (PATIENT) 33.9 SEC (9.98-11.88)
[2017-06-23] MEDS: ALBUTEROL SO4 0.083% IH SOL 2.5 MG/3 ML VIAL.NEB. NEB SCH ×4 (08:56→21:12)
[2017-06-23] MEDS ORDERED: oxyCODONE HCL 5 MG TABLET PO ONE (09:15)
--- NOTE | 2017-06-23 09:50 | PN ---
Progress Note, Physician Chief Complaint: ID Patient has diffuse uriticaria now with severe facial edema and generalized pruritis Now has throat pain Denies SOB - Current Medication List Current Medications: Active Medications Albuterol Sulfate (Ventolin 0.083% Nebulizer Soln -) 1 amp NEB RQID [facility] Last Admin: 06/23/17 08:56 Dose: 1 amp Artificial Tears (Artificial Tears) 1 drop OD QID [facility] Last Admin: 06/22/17 22:05 Dose: 1 drop Bupropion HCl (Wellbutrin Xl -) 300 mg PO DAILY [facility] Last Admin: 06/22/17 09:35 Dose: 300 mg Carbidopa/Levodopa (Sinemet 25/100 -) 1 each PO TID [facility] Last Admin: 06/23/17 06:02 Dose: 1 each Citalopram Hydrobromide (Celexa -) 10 mg PO DAILY [facility] Last Admin: 06/22/17 09:28 Dose: 10 mg Digoxin (Lanoxin -) 0.25 mg PO DAILY [facility] Last Admin: 06/22/17 09:35 Dose: 0.25 mg Diphenhydramine HCl (Benadryl -) 50 mg PO Q6H PRN PRN Reason: FOR ITCHING Last Admin: 06/23/17 06:02 Dose: 50 mg Heparin Sodium (Porcine) (Heparin -) 1,000 unit IVPUSH PRN PRN PRN Reason: Heparin Last Admin: 06/22/17 18:20 Dose: 1,000 unit Heparin Sodium (Porcine) (Heparin -) 5,000 unit IVPUSH PRN PRN PRN Reason: Heparin Last Admin: 06/23/17 02:39 Dose: 5,000 unit Ceftriaxone Sodium 1 gm/ (Dextrose) 50 mls @ 100 mls/hr IVPB DAILY [facility] Last Admin: 06/22/17 09:32 Dose: 100 mls/hr Heparin Sodium (Porcine) 25, (000 unit/ Sodium Chloride) 500 mls @ 20 mls/hr IV TITR CHRIS; 1,000 UNIT/HR PRN Reason: Protocol Last Admin: 06/23/17 02:36 Dose: 1,400 unit/hr, 28 mls/hr Insulin Aspart (Novolog Vial Sliding Scale -) 1 vial SQ ACHS [facility] PRN Reason: Protocol Last Admin: 06/23/17 06:03 Dose: Not Given Insulin Detemir (Levemir Vial) 20 units SQ BID [facility] Last Admin: 06/22/17 22:01 Dose: 20 unit Pramipexole Dihydrochloride (Mirapex -) 1.5 mg PO HS [facility] Last Admin: 06/22/17 21:59 Dose: 1.5 mg Prednisone (Deltasone -) 40 mg PO DAILY [facility] Last Admin: 06/22/17 09:37 Dose: 40 mg Pregabalin (Lyrica -) 25 mg PO BID [facility] Last Admin: 06/22/17 21:59 Dose: 25 mg Ranolazine (Ranexa -) 500 mg PO BID [facility] Last Admin: 06/22/17 21:59 Dose: 500 mg Torsemide (Demadex -) 20 mg PO DAILY [facility] Last Admin: 06/22/17 09:31 Dose: 20 mg Verapamil HCl (Calan Sr -) 240 mg PO DAILY [facility] Last Admin: 06/22/17 09:30 Dose: 240 mg Warfarin Sodium (Coumadin -) 9 mg PO 1800 [facility] Last Admin: 06/22/17 17:37 Dose: 9 mg - Objective Vital Signs: Vital Signs Temperature 97.3 F L 06/23/17 06:00 Pulse Rate 62 06/23/17 06:00 Respiratory Rate 20 06/23/17 06:00 Blood Pressure 122/45 06/23/17 06:00 O2 Sat by Pulse Oximetry (%) 97 06/23/17 09:03 Constitutional: Yes: Obese HENT: Yes: Other (facial swelling). No: Thrush (pharungeal injection wiath swelling of uvula) Respiratory: Yes: WNL, Regular, CTA Bilaterally Gastrointestinal: Yes: WNL, Normal Bowel Sounds, Soft. No: Tenderness, Tenderness, Epigastrium Integumentary: Yes: Rash, Other (Severe uriticia) Labs: CBC, BMP 06/23/17 06:20 06/22/17 07:30 INR, PTT INR 3.00 (0.82-1.09) H D 06/23/17 06:20 Assessment/Plan Microbiology 06/21/17 16:45 Blood - Peripheral Venous Blood Culture - Preliminary NO GROWTH OBTAINED AFTER 24 HOURS, INCUBATION TO CONTINUE FOR 4 DAYS. 06/21/17 16:45 Blood - Peripheral Venous Blood Culture - Preliminary NO GROWTH OBTAINED AFTER 24 HOURS, INCUBATION TO CONTINUE FOR 4 DAYS. Laboratory Tests 06/21/17 06/22/17 06/23/17 17:09 07:30 06:20 WBC 13.7 H Hgb 12.0 Plt Count 252 ESR 15 Creat Clearance w eGFR 49.85 ALT 10 L Alkaline Phosphatase 56 Assessment Severe uriticaria now with facial swelling and swelling pharynx and uvula Plan Substitute high dose steroids parenterally and get dermatology here to see her today Yoly MEZA
[2017-06-23] MEDS ORDERED: methylPREDNISolone NA SUCC 40 MG/1 ML VIAL IVPUSH SCH (10:00)
[2017-06-23] MEDS ORDERED: PT OWN MED DRAWER 7, Y5N ONE ×3 (10:07→13:43)
[2017-06-23] MEDS ORDERED: DEXTROSE 5%-WATER - 50 ML IVPB ONE (10:08)
[2017-06-23] MEDS ORDERED: cefTRIAXone SODIUM 1 GM VIAL ONE (10:08)
[2017-06-23] MEDS: CEFTRIAXONE 1 GM in DEXTROSE 5%-WATER - 50 ML IVPB SCH (10:21)
[2017-06-23] MEDS: PREGABALIN 25 MG CAPSULE PO SCH ×2 (10:22→21:55)
[2017-06-23] MEDS: TORSEMIDE 20 MG TABLET (FP) PO SCH (10:22)
[2017-06-23] MEDS: CITALOPRAM HYDROBROMIDE 10 MG TABLET (FP) PO SCH (10:23)
[2017-06-23] MEDS: RANOLAZINE E.R. 500 MG TABLET (FP) PO SCH ×2 (10:23→21:55)
[2017-06-23] MEDS: VERAPAMIL HCL 240 MG E.R. TABLET (FP) PO SCH (10:25)
[2017-06-23] MEDS: DIGOXIN 0.25 MG TABLET (FP) PO SCH (10:26)
[2017-06-23] MEDS: INSULIN DETEMIR 100 UNITS/ML MDV SQ SCH ×3 (10:27→22:06)
[2017-06-23] MEDS: ARTIFICIAL TEARS (POLYVINYL ALCOHOL 1.4%) OPTH DROPS OD SCH ×4 (10:38→21:55)
--- NOTE | 2017-06-23 10:57 | EKG ---
Test Reason : Blood Pressure : / mmHG Vent. Rate : 060 BPM Atrial Rate : 060 BPM P-R Int : 128 ms QRS Dur : 102 ms QT Int : 484 ms P-R-T Axes : -03 031 -29 degrees QTc Int : 484 ms NORMAL SINUS RHYTHM RSR' OR QR PATTERN IN V1 SUGGESTS RIGHT VENTRICULAR CONDUCTION DELAY T WAVE ABNORMALITY, CONSIDER INFERIOR ISCHEMIA T WAVE ABNORMALITY, CONSIDER ANTEROLATERAL ISCHEMIA PROLONGED QT ABNORMAL ECG WHEN COMPARED WITH ECG OF 20-MAR-2017 19:45, T WAVE INVERSION NOW EVIDENT IN LATERAL LEADS QT HAS LENGTHENED Confirmed by VICENTE MEZA, SIERRA ([id number]) on 06/23/2017 10:57:00 AM Referred By: Confirmed By:SIERRA ZHANG MD
[2017-06-23] MEDS ORDERED: EPINEPHrine/PF 1 MG/1 ML (1:1,000) AMPULE IM ONE (11:45)
[2017-06-23] MEDS ORDERED: FAMOTIDINE 20 MG/50 ML IVPB 20 MG/50 ML MG IVPB ONE (11:45)
--- NOTE | 2017-06-23 11:45 | PN ---
Progress Note, Physician Chief Complaint: AWAKE ALERT IN MODERATE DISTRESS SEEN IN ICU ANGIOEDEMA PRECAUTIONS EPINEPHRINE ORDERED TO BEDSIDE - Current Medication List Current Medications: Active Medications Albuterol Sulfate (Ventolin 0.083% Nebulizer Soln -) 1 amp NEB RQID [facility] Last Admin: 06/23/17 08:56 Dose: 1 amp Artificial Tears (Artificial Tears) 1 drop OD QID [facility] Last Admin: 06/23/17 10:38 Dose: 1 drop Bupropion HCl (Wellbutrin Xl -) 300 mg PO DAILY [facility] Last Admin: 06/23/17 10:25 Dose: 300 mg Carbidopa/Levodopa (Sinemet 25/100 -) 1 each PO TID [facility] Last Admin: 06/23/17 06:02 Dose: 1 each Citalopram Hydrobromide (Celexa -) 10 mg PO DAILY [facility] Last Admin: 06/23/17 10:23 Dose: 10 mg Digoxin (Lanoxin -) 0.25 mg PO DAILY [facility] Last Admin: 06/23/17 10:26 Dose: 0.25 mg Diphenhydramine HCl (Benadryl -) 50 mg PO Q6H PRN PRN Reason: FOR ITCHING Last Admin: 06/23/17 06:02 Dose: 50 mg Famotidine/Sodium Chloride (Pepcid 20 Mg Premixed Ivpb -) 20 mg in 50 mls @ 100 mls/hr IVPB BID [facility] Famotidine/Sodium Chloride (Pepcid 20 Mg Premixed Ivpb -) 20 mg in 50 mls @ 100 mls/hr IVPB ONCE ONE Stop: 06/23/17 12:14 Insulin Aspart (Novolog Vial Sliding Scale -) 1 vial SQ ACHS [facility] PRN Reason: Protocol Last Admin: 06/23/17 06:03 Dose: Not Given Insulin Detemir (Levemir Vial) 20 units SQ BID [facility] Last Admin: 06/23/17 11:43 Dose: Not Given Methylprednisolone Sodium Succinate (Solu-Medrol -) 40 mg IVPUSH Q8H-IV [facility] Last Admin: 06/23/17 10:20 Dose: 40 mg Pramipexole Dihydrochloride (Mirapex -) 1.5 mg PO HS [facility] Last Admin: 06/22/17 21:59 Dose: 1.5 mg Pregabalin (Lyrica -) 25 mg PO BID [facility] Last Admin: 06/23/17 10:22 Dose: 25 mg Ranolazine (Ranexa -) 500 mg PO BID [facility] Last Admin: 06/23/17 10:23 Dose: 500 mg Torsemide (Demadex -) 20 mg PO DAILY [facility] Last Admin: 06/23/17 10:22 Dose: 20 mg Verapamil HCl (Calan Sr -) 240 mg PO DAILY [facility] Last Admin: 06/23/17 10:25 Dose: 240 mg Warfarin Sodium (Coumadin -) 9 mg PO 1800 [facility] Last Admin: 06/22/17 17:37 Dose: 9 mg - Objective Vital Signs: Vital Signs Temperature 97.3 F L 06/23/17 06:00 Pulse Rate 66 06/23/17 10:26 Respiratory Rate 20 06/23/17 06:00 Blood Pressure 122/42 06/23/17 09:45 O2 Sat by Pulse Oximetry (%) 97 06/23/17 09:03 Constitutional: Yes: Moderate Distress Eyes: Yes: WNL HENT: Yes: WNL Neck: Yes: WNL Cardiovascular: Yes: Pulse Irregular, Murmur Respiratory: Yes: Diminished, On Nasal O2, Poor Air Entry Gastrointestinal: Yes: WNL Genitourinary: Yes: Incontinence Musculoskeletal: Yes: Muscle Pain, Muscle Weakness Extremities: Yes: Erythema Edema: Yes Peripheral Pulses WNL: Yes Integumentary: Yes: Erythema, Rash Wound/Incision: Yes: Dressing Dry and Intact Neurological: Yes: Loss of Sensation, Paresthesia, Pre-Existing Deficit ...Motor Strength: LLE, RLE Psychiatric: Yes: Other Labs: CBC, BMP 06/23/17 06:20 06/22/17 07:30 INR, PTT INR 3.00 (0.82-1.09) H D 06/23/17 06:20 Problem List - Problems (1) Erythema multiforme minor Code(s): L51.9 - ERYTHEMA MULTIFORME, UNSPECIFIED (2) Afib Code(s): I48.91 - UNSPECIFIED ATRIAL FIBRILLATION Qualifiers: Atrial fibrillation type: paroxysmal Qualified Code(s): I48.0 - Paroxysmal atrial fibrillation (3) Anterior epistaxis Code(s): R04.0 - EPISTAXIS (4) Anticoagulated Code(s): Z79.01 - 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 ACCESS SYSTEMS 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 (CURRENT) USE OF ANTICOAGULANTS (5) Asthma exacerbation in COPD Code(s): J44.1 - CHRONIC OBSTRUCTIVE PULMONARY DISEASE W (ACUTE) EXACERBATION; J45.901 - UNSPECIFIED ASTHMA WITH (ACUTE) EXACERBATION (6) CAD (coronary artery disease) Code(s): I25.10 - ATHSCL HEART DISEASE OF [place] CORONARY ARTERY W/O ANG PCTRS (7) CHF (congestive heart failure) Code(s): I50.9 - HEART FAILURE, UNSPECIFIED (8) COPD (chronic obstructive pulmonary disease) Code(s): J44.9 - CHRONIC OBSTRUCTIVE PULMONARY DISEASE, UNSPECIFIED Qualifiers: COPD type: COPD with acute exacerbation Qualified Code(s): J44.1 - Chronic obstructive pulmonary disease with (acute) exacerbation (9) Cellulitis Code(s): L03.90 - CELLULITIS, UNSPECIFIED Qualifiers: Site of cellulitis of extremity: lower extremity Laterality: left (10) Controlled diabetes mellitus with diabetic peripheral angiopathy without gangrene, with long-term current use of insulin Code(s): E11.51 - TYPE 2 DIABETES W DIABETIC PERIPHERAL ANGIOPATH W/O GANGRENE; Z79.4 - AUTOMATED ACCESS SYSTEMS TECHNICIAN (CURRENT) USE OF INSULIN (11) Obesities, morbid Code(s): E66.01 - MORBID (SEVERE) OBESITY DUE TO EXCESS CALORIES (12) S/P MVR (mitral valve replacement) Code(s): Z95.2 - PRESENCE OF PROSTHETIC HEART VALVE (13) SLE (systemic lupus erythematosus) Code(s): M32.9 - SYSTEMIC LUPUS ERYTHEMATOSUS, UNSPECIFIED Assessment/Plan TRANSERRED TO ICU ANGIOEDEMA EPINEPHRINE ORDERED BEDSIDE PEPCID BID BENADRYL, STEROIDS IV CENTRAL LINE ACCESS IF NEEDED DERM CONSULT APPRECIATED PULM/CARDIO EVAL APPRECIATED RHEUMATOLOGY EVAL
[2017-06-23] MEDS ORDERED: EPINEPHrine 1:1,000 0.3 MG/0.3 ML SYR IM PRN (12:00)
[2017-06-23] MEDS ORDERED: INSULIN (NOVOLOG) ASPART 100 UNITS/ML 10ML VIAL ONE (12:09)
--- NOTE | 2017-06-23 12:11 | CONSULT ---
Consult Consult Specialty:: general surgery Referred by:: nasrin Reason for Consultation:: central line - History of Present Illness Chief Complaint: central line History of Present Illness: 66 yo female PMH HTN, HLD, Parkinson's disease, Lupus on MTX and Prednisone, Fibromyalgia, DM, CHF, COPD on 2L home O2, FIGUEROA on CPAP, atrial fibrillation on coumadin, anemia, asthma, glaucoma, MV replacement, CVA, spinal stenosis, CAD s/ p 2 stents 2014, who presents to the ED with rash spreading over the past four days. As per patient, on Sunday, she ate an egg roll that may have been contaminated with shellfish. She has a shellfish allergy. During this time, pt also endorses diffuse HURD, intermittent, stabbing chest pain, intermittent fevers , SOB, changes in urinary and bowel function. She denies recent travel. Pt started new eye drops for her glaucoma, and states that on her past [facility] admission, she was in a room with a patient who had diffuse skin lesions. She is worried that she was contaminated from this instance. we were asked place a central line, indication being difficult access and potential for clinical deterioration. - History Source History Provided By: Patient, Medical Record Limitations to Obtaining History: No Limitations - Past Medical History [employer]: Yes: CVA, Migraine, Other (light-headedness and dizziness) Cardio/Vascular: Yes: AFIB, CAD, CHF, HTN, Hyperlipdemia, Other ([facility]) Pulmonary: Yes: Asthma, COPD, Sleep Apnea (on CPAP at night) Gastrointestinal: Yes: Constipation, Diverticulosis, GI Bleed, Hemorrhoids ...: No Musculoskeletal: Yes: Chronic low back pain, Other (Spinal stenosis) Rheumatology: Yes: Lupus, Other (APLAS (BOTH LUPUS AND APLS ARE QUESTIONABLE)) Endocrine: Yes: Diabetes Mellitus Additional Medical History: morbid obesity - Past Surgical History Past Surgical History: Yes: CABG, Cholecystectomy, Hysterectomy, Oopherectomy - Alcohol/Substance Use Hx Alcohol Use: No History of Substance Use: reports: None - Smoking History Smoking history: Never smoked Have you smoked in the past 12 months: No Aproximately how many cigarettes per day: 0 If you are a former smoker, when did you quit?: many years - Social History Usual Living Arrangement: With Spouse ADL: Independent History of Recent Travel: No Home Medications - Allergies Allergies/Adverse Reactions: Allergies Allergy/AdvReac Type Severity Reaction Status Date / Time lactose Allergy Mild Verified 06/21/17 12:45 Beta-Blockers Allergy Verified 06/21/17 12:45 (Beta-Adrenergic Bloc Iodinated Contrast- Oral and Allergy Verified 06/21/17 12:45 IV Dye [IV Dye, Iodine Containing Contrast ] shellfish derived Allergy Verified 06/21/17 12:45 - Home Medications Home Medications: Ambulatory Orders Albuterol 0.083% Nebulizer Brigitte [Ventolin 0.083%] 1 neb NEB QID 06/21/17 Bupropion HCl [Wellbutrin Xl] 300 mg PO DAILY 06/21/17 Carbidopa/Levodopa 25/100 [Sinemet 25/100 -] 1 each PO HS 06/21/17 Carbidopa/Levodopa [Carbidopa-Levodopa 25-100 Tab] 1 each PO TID 06/21/17 Cholecalciferol (Vitamin D3) [Vitamin D3 -] 1,000 unit PO DAILY 06/21/17 Citalopram Hydrobromide [Celexa -] 10 mg PO DAILY 06/21/17 Digoxin [Lanoxin -] 0.25 mg PO DAILY 06/21/17 Ferrous Sulfate [Iron] 325 mg PO DAILY 06/21/17 Hypromellose 0.5% Opth Soln [Artificial Tears] 1 drop OD QID 06/21/17 Insulin Aspart [Novolog] 6 unit SQ TID 06/21/17 Insulin Detemir [Levemir Flextouch] 30 unit SQ HS 06/21/17 Pantoprazole Sodium [Protonix] 40 mg PO TID 06/21/17 Pramipexole Di-HCl [Mirapex] 1.5 mg PO HS 06/21/17 Pramipexole Di-HCl [Pramipexole ER] 0.5 mg PO TID 06/21/17 Pramipexole Di-HCl [Pramipexole ER] 1 mg PO HS 06/21/17 Prednisone 10 mg PO DAILY 06/21/17 Pregabalin [Lyrica] 25 mg PO BID 06/21/17 Ranolazine [Ranexa] 500 mg PO BID 06/21/17 Topiramate [Topamax] 150 mg PO BID 06/21/17 Torsemide [Demadex] 20 mg PO TID 06/21/17 Verapamil HCl [Calan Sr] 240 mg PO DAILY 06/21/17 Warfarin Sodium [Coumadin] 9 mg PO HS 06/21/17 Family Disease History - Family Disease History Family Disease History: Diabetes: Grandparent, Mother, Heart Disease: Father, Other: Sister (Lupus) Review of Systems - Review of Systems Constitutional: denies: Chills, Lethargy Eyes: denies: Blind Spots, Recent Change in Vision HENT: reports: Difficult Swallowing, Mouth Swelling. denies: Throat Pain Neck: reports: Pain on Movement. denies: Tenderness Cardiovascular: denies: Chest Pain, Palpitations Respiratory: reports: Exercise Intolerance, SOB, SOB on Exertion Gastrointestinal: denies: Abdominal Pain, Dysphagia Genitourinary: denies: Burning, Discharge, Dysuria Breasts: reports: No Symptoms Reported. denies: Pain Musculoskeletal: reports: Back Pain, Decreased ROM Integumentary: reports: Lesions, Pruritis, Rash Neurological: denies: Change in LOC, Change in Speech Endocrine: denies: Unexplained Weight Gain, Unexplained Weight Loss Hematology/Lymphatic: denies: Easily Bruised, Excessive Bleeding Psychiatric: reports: Anxiety. denies: Depression Physical Exam Vital Signs: Vital Signs Temperature 97.3 F L 06/23/17 06:00 Pulse Rate 66 06/23/17 10:26 Respiratory Rate 20 06/23/17 06:00 Blood Pressure 122/42 06/23/17 09:45 O2 Sat by Pulse Oximetry (%) 97 06/23/17 09:03 Vital Signs Period Temp Pulse Resp BP Sys/Wise Pulse Ox Last 24 Hr 97.3 F-99.4 F 59-66 20-22 111-135/39-57 95-98 Constitutional: Yes: No Distress, Anxious, Obese Eyes: Yes: Conjunctiva Clear, EOM Intact HENT: Yes: Atraumatic, Normocephalic Neck: Yes: Supple, Trachea Midline Cardiovascular: Yes: Regular Rate and Rhythm, S2, S3 Respiratory: Yes: Regular, CTA Bilaterally Gastrointestinal: Yes: Normal Bowel Sounds, Soft, Abdomen, Obese. No: Tenderness Renal/: No: CVA Tenderness - Left, CVA Tenderness - Right Extremities: No: Cool, Cyanosis Edema: Yes (face and extremities ) Peripheral Pulses WNL: Yes Integumentary: Yes: Rash (uticarial rash diffuse). No: Jaundice Neurological: Yes: Alert, Oriented Psychiatric: Yes: Alert, Oriented Labs: CBC, BMP 06/23/17 06:20 06/22/17 07:30 Imaging - Results Chest X-ray: Report Reviewed, Image Reviewed (RLL atelectasis or scaring no infiltrates) EKG: Report Reviewed, Image Reviewed (sinus rhythm with old ischemic areas) Problem List - Problems (1) Erythema multiforme minor Assessment/Plan: 66yo female with MMP erythema multiforme and angioedema Discussed with patient risks, benefits and alternatives of central venous catheter placement, including but not limited to bleeding, pneumothorax, infection, injury to adjacent structures, need for further procedures, ; Patient desires to proceed with procedure - will place the central line with ultrasound guidance. Informed consent signed for same. Patient transferred to ICU for monitoring, Dicussed with primary and ICU team, given clinical satbilization will hold on line placement for now. Please recall if her condition worsens . Code(s): L51.9 - ERYTHEMA MULTIFORME, UNSPECIFIED (2) Asthma exacerbation in COPD Code(s): J44.1 - CHRONIC OBSTRUCTIVE PULMONARY DISEASE W (ACUTE) EXACERBATION; J45.901 - UNSPECIFIED ASTHMA WITH (ACUTE) EXACERBATION (3) Controlled diabetes mellitus with diabetic peripheral angiopathy without gangrene, with long-term current use of insulin Code(s): E11.51 - TYPE 2 DIABETES W DIABETIC PERIPHERAL ANGIOPATH W/O GANGRENE; Z79.4 - MCC (CURRENT) USE OF INSULIN (4) Diabetes mellitus, insulin dependent (IDDM), uncontrolled Code(s): E10.65 - TYPE 1 DIABETES MELLITUS WITH HYPERGLYCEMIA (5) Dyslipidemia Code(s): E78.5 - HYPERLIPIDEMIA, UNSPECIFIED (6) Fibromyalgia Code(s): M79.7 - FIBROMYALGIA (7) FIGUEROA (obstructive sleep apnea) Code(s): G47.33 - OBSTRUCTIVE SLEEP APNEA (ADULT) (PEDIATRIC) (8) Obesities, morbid Code(s): E66.01 - MORBID (SEVERE) OBESITY DUE TO EXCESS CALORIES (9) SLE (systemic lupus erythematosus) Code(s): M32.9 - SYSTEMIC LUPUS ERYTHEMATOSUS, UNSPECIFIED
--- NOTE | 2017-06-23 13:11 | PN ---
Progress Note (short form) - Note Progress Note: PULMONARY CONSULTATION DICTATED 06/23/17 IMP ALLERGIC REACTION FACIAL SWELLING,GENERALIZED RASH ASHD S/P CABG,S/P STENTS S/P MVR AFIB ASTHMA/COPD ON O2 OSAS ON CPAP SLE FIBROMYALGIA H/O CVA PLAN IV STEROIDS O2 ANTIHISTAMINES INHALED BRONCHODILATORS DERMATOLOGY EVALUATION TRANSFER TO ICU RHEUMATOLOGY EVALUATION BIPAP AT NIGHT GLYCEMIC CONTROL DR IVERSON Problem List - Problems (1) Erythema multiforme minor Code(s): L51.9 - ERYTHEMA MULTIFORME, UNSPECIFIED (2) Afib Code(s): I48.91 - UNSPECIFIED ATRIAL FIBRILLATION Qualifiers: Atrial fibrillation type: paroxysmal Qualified Code(s): I48.0 - Paroxysmal atrial fibrillation (3) CAD (coronary artery disease) Code(s): I25.10 - ATHSCL HEART DISEASE OF [place] CORONARY ARTERY W/O ANG PCTRS (4) CHF (congestive heart failure) Code(s): I50.9 - HEART FAILURE, UNSPECIFIED (5) COPD (chronic obstructive pulmonary disease) Code(s): J44.9 - CHRONIC OBSTRUCTIVE PULMONARY DISEASE, UNSPECIFIED Qualifiers: COPD type: COPD with acute exacerbation Qualified Code(s): J44.1 - Chronic obstructive pulmonary disease with (acute) exacerbation (6) Diabetes Code(s): E11.9 - TYPE 2 DIABETES MELLITUS WITHOUT COMPLICATIONS Qualifiers: Diabetes mellitus type: type 2 Diabetes mellitus complication status: with neurologic complications (8) IDDM (insulin dependent diabetes mellitus) Code(s): E11.9 - TYPE 2 DIABETES MELLITUS WITHOUT COMPLICATIONS; Z79.4 - DYNAMICS AX SOLUTION ARCHITECT (CURRENT) USE OF 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
--- NOTE | 2017-06-23 13:52 | CONS ---
DATE OF CONSULTATION: 06/23/2017 REFERRING PHYSICIAN: Mikayla Baxter MD HISTORY OF PRESENT ILLNESS: The patient is a 66-year-old female well known to me from previous hospitalization as well as office followup, past medical history of hypertension, ASHD, status post stents, status post CABG, status post AVR, Parkinson disease, lupus, SLE, obstructive sleep apnea, on CPAP, status post mitral valve replacement, CVA, spinal stenosis, atrial fibrillation, CHF, asthma, COPD , on O2, fibromyalgia, admitted to [facility] with generalized rash worsening over 4 days. According to the patient on admission, she ate eggs and an egg roll that may have been contaminated with SHELLFISH. Apparently, patient is allergic to the above. On Sunday prior to admission she started to develope a rash had a small pruritic targeted lesion on her anterior chest and all over her back. She also said she felt her scalp was pruritic, started to develop intermittent fevers and became progressively more uncomfortable. Sunday prior to admission she started developing severe diffuse abdominal pain, associated nausea without emesis, dry mouth, loose stool and hematuria. Symptoms continued to worsen and she started developing a progressive spreading rash throughout her body. Patient had a followup at the [facility] on the day of admission and was told she had idiopathic urticaria and was given cetirizine. The patient presented to emergency with above secondary to progressive symptoms. The patient was hospitalized. On admission she was started on prednisone. She was also evaluated by Dr. Frederick for infectious disease and Dr. Kramer for hematology. Patient earlier today started noticing progressive rash throughout. Also noted to have facial swelling, facial edema and generalized pruritus and also complained of some throat pain. She was also noted to have some swelling in the uvula. She was placed on high-dose IV steroids. Patient has no previous history of tobacco use. There was no history of recent travel. There is no history of DVT or PE in the past. PAST MEDICAL HISTORY: As above. REVIEW OF SYSTEMS: Positive shortness of breath. Negative cough. No chest pain. No palpitations. Positive generalized rash. Positive pruritus. Positive generalized pain. No hemoptysis. No abdominal pain. No lower extremity edema. CURRENT MEDICATIONS: Include Solu-Medrol 40 q.8, epinephrine x1, Coumadin, Lyrica, Wellbutrin, Celexa, albuterol, Calan, Ranexa, Lanoxin, Sinemet, Mirapex, artificial tears, Benadryl, Pepcid, NovoLog, Levemir and Demadex. PHYSICAL EXAMINATION: General: The patient is a well-developed, well-nourished female, awake, alert, in no acute respiratory distress. There is generalized erythema multiforme throughout and diffuse urticaria and severe facial edema and generalized pruritus. Vital Signs: She is currently afebrile, blood pressure is 122/42, respiratory rate is 20, O2 saturation is 97%. HEENT: Head is normocephalic. Has severe facial edema. HEENT exam is normal. Neck: Supple without adenopathy. There is no stridor noted. Heart: Regular, S1, S2. Chest: Diminished breath sounds bilaterally. Abdomen: Soft. Bowel sounds are positive. Extremities: No cyanosis or edema. LABORATORIES: WBC is 13.7, hemoglobin 12, hematocrit 36.3, with a platelet count of 252,000. INR is 3. BUN 26, creatinine 1.1. No acute infiltrates or effusion. IMPRESSION: 1. Allergic reaction, etiology including acute drug reaction with generalized urticaria, pruritus, facial swelling and uvula edema. 2. Arteriosclerotic heart disease, status post coronary artery bypass surgery, status post stents. 3. Atrial fibrillation. 4. Status post mitral valve replacement. 5. Systemic lupus erythematosus. 6. History of cerebrovascular accident. 7. Chronic obstructive pulmonary disease/asthma. 8. Diabetes. PLAN: IV steroids,antihistamines Inhaled bronchodilators. Transfer to ICU for further monitoring. Dermatology as well as Rheumatology evaluation. Glycemic control. Supplemental O2. Monitor electrolytes. Thank you. DANYEL IVERSON M.D. [id number] MTDD
--- NOTE | 2017-06-23 15:14 | CONSULT ---
Consult Consult Specialty:: Dermatology - History Source History Provided By: Patient - Past Medical History [employer]: Yes: CVA, Migraine, Other (light-headedness and dizziness) Cardio/Vascular: Yes: AFIB, CAD, CHF, HTN, Hyperlipdemia, Other (S/P [facility] mitral valve replacement) Pulmonary: Yes: Asthma, COPD, Sleep Apnea (on CPAP at night) Gastrointestinal: Yes: Constipation, Diverticulosis, GI Bleed, Hemorrhoids ...: No Musculoskeletal: Yes: Chronic low back pain, Other (Spinal stenosis) Rheumatology: Yes: Lupus, Other (APLAS (BOTH LUPUS AND APLS ARE QUESTIONABLE)) Endocrine: Yes: Diabetes Mellitus Additional Medical History: morbid obesity - Past Surgical History Past Surgical History: Yes: CABG, Cholecystectomy, Hysterectomy, Oopherectomy - Alcohol/Substance Use Hx Alcohol Use: No History of Substance Use: reports: None - Smoking History Smoking history: Never smoked Have you smoked in the past 12 months: No Aproximately how many cigarettes per day: 0 If you are a former smoker, when did you quit?: many years - Social History Usual Living Arrangement: With Spouse ADL: Independent History of Recent Travel: No Home Medications - Allergies Allergies/Adverse Reactions: Allergies Allergy/AdvReac Type Severity Reaction Status Date / Time lactose Allergy Mild Verified 06/21/17 12:45 Beta-Blockers Allergy Verified 06/21/17 12:45 (Beta-Adrenergic Bloc Iodinated Contrast- Oral and Allergy Verified 06/21/17 12:45 IV Dye [IV Dye, Iodine Containing Contrast ] shellfish derived Allergy Verified 06/21/17 12:45 - Home Medications Home Medications: Ambulatory Orders Albuterol 0.083% Nebulizer Brigitte [Ventolin 0.083%] 1 neb NEB QID 06/21/17 Bupropion HCl [Wellbutrin Xl] 300 mg PO DAILY 06/21/17 Carbidopa/Levodopa 25/100 [Sinemet 25/100 -] 1 each PO HS 06/21/17 Carbidopa/Levodopa [Carbidopa-Levodopa 25-100 Tab] 1 each PO TID 06/21/17 Cholecalciferol (Vitamin D3) [Vitamin D3 -] 1,000 unit PO DAILY 06/21/17 Citalopram Hydrobromide [Celexa -] 10 mg PO DAILY 06/21/17 Digoxin [Lanoxin -] 0.25 mg PO DAILY 06/21/17 Ferrous Sulfate [Iron] 325 mg PO DAILY 06/21/17 Hypromellose 0.5% Opth Soln [Artificial Tears] 1 drop OD QID 06/21/17 Insulin Aspart [Novolog] 6 unit SQ TID 06/21/17 Insulin Detemir [Levemir Flextouch] 30 unit SQ HS 06/21/17 Pantoprazole Sodium [Protonix] 40 mg PO TID 06/21/17 Pramipexole Di-HCl [Mirapex] 1.5 mg PO HS 06/21/17 Pramipexole Di-HCl [Pramipexole ER] 0.5 mg PO TID 06/21/17 Pramipexole Di-HCl [Pramipexole ER] 1 mg PO HS 06/21/17 Prednisone 10 mg PO DAILY 06/21/17 Pregabalin [Lyrica] 25 mg PO BID 06/21/17 Ranolazine [Ranexa] 500 mg PO BID 06/21/17 Topiramate [Topamax] 150 mg PO BID 06/21/17 Torsemide [Demadex] 20 mg PO TID 06/21/17 Verapamil HCl [Calan Sr] 240 mg PO DAILY 06/21/17 Warfarin Sodium [Coumadin] 9 mg PO HS 06/21/17 Family Disease History - Family Disease History Family Disease History: Diabetes: Grandparent, Mother, Heart Disease: Father, Other: Sister (Lupus) Physical Exam Vital Signs: Vital Signs Temperature 99.4 F 06/23/17 10:00 Pulse Rate 57 L 06/23/17 14:00 Respiratory Rate 20 06/23/17 14:00 Blood Pressure 120/67 06/23/17 14:00 O2 Sat by Pulse Oximetry (%) 95 06/23/17 12:00 Labs: CBC, BMP 06/23/17 06:20 06/22/17 07:30 Assessment/Plan Dermatology patient is a 66 yr old woman with PMH of Asthma, DM, possible lupus and sleep apnea. patient reports eating egg roll on Sunday that contained shellfish which she is allergic to. She previously had a similar but less severe reaction after consuming shellfish in the past. On examination she has a generalized urticarial gyrate erythematous reaction consistent with an urtcarial eruption. She also has swelling of the lips and reports having a pruritic sensation in mouth and throat. Diagnosis is an allergic reaction to shellfish presenting as an urticarial eruption No sign clinically of Erythema Multiforme at this time Rx IV steroids , antihistamines and topical steroids Follow up with Rheumatology to evaluate Lupus Diagnosis
--- NOTE | 2017-06-23 15:25 | PN ---
Progress Note (short form) - Note Progress Note: Seen in follow up. Ongoing swelling, rash, pruritis. Patien tconcerned about swelling around her neck. Denies dyspnea at rest, but get out of breath ambulating. Meds reviewed. Current Medications Generic Name Dose Route Start Last Admin Trade Name Freq PRN Reason Stop Dose Admin Albuterol Sulfate 1 amp 06/22/17 08:00 06/23/17 12:40 Ventolin 0.083% Nebulizer Soln - NEB 1 amp RQID CHRIS Administration Artificial Tears 1 drop 06/21/17 22:00 06/23/17 13:52 Artificial Tears OD 1 drop QID CHRIS Administration Bupropion HCl 300 mg 06/22/17 10:00 06/23/17 10:25 Wellbutrin Xl - PO 300 mg DAILY CHRIS Administration Carbidopa/Levodopa 1 each 06/21/17 22:00 06/23/17 13:52 Sinemet 25/100 - PO 1 each TID CHRIS Administration Citalopram Hydrobromide 10 mg 06/22/17 10:00 06/23/17 10:23 Celexa - PO 10 mg DAILY CHRIS Administration Digoxin 0.25 mg 06/22/17 10:00 06/23/17 10:26 Lanoxin - PO 0.25 mg DAILY CHRIS Administration Diphenhydramine HCl 50 mg 06/22/17 02:46 06/23/17 12:27 Benadryl - PO 50 mg Q6H PRN Administration FOR ITCHING Epinephrine 0.3 mg 06/23/17 12:00 Epipen 0.3mg - IM PRN PRN WHEEZING Famotidine/Sodium Chloride 20 mg in 50 mls @ 100 mls/hr 06/23/17 22:00 Pepcid 20 Mg Premixed Ivpb - IVPB BID [facility] Insulin Aspart 1 vial 06/21/17 22:00 06/23/17 12:27 Novolog Vial Sliding Scale - SQ 2 units ACHS CHRIS Administration Protocol Insulin Detemir 20 units 06/22/17 22:00 06/23/17 11:43 Levemir Vial SQ Not Given BID [facility] Methylprednisolone Sodium Succinate 60 mg 06/23/17 15:00 Solu-Medrol - IVPUSH Q6H-IV CHRIS Pramipexole Dihydrochloride 1.5 mg 06/21/17 22:00 06/22/17 21:59 Mirapex - PO 1.5 mg HS CHRIS Administration Pregabalin 25 mg 06/21/17 22:00 06/23/17 10:22 Lyrica - PO 25 mg BID CHRIS Administration Ranolazine 500 mg 06/21/17 22:00 06/23/17 10:23 Ranexa - PO 500 mg BID CHRIS Administration Torsemide 20 mg 06/22/17 10:00 06/23/17 10:22 Demadex - PO 20 mg DAILY CHRIS Administration Triamcinolone Acetonide 1 applic 06/23/17 22:00 Aristocort 0.1% Cream - TP BID CHRIS Verapamil HCl 240 mg 06/22/17 10:00 06/23/17 10:25 Calan Sr - PO 240 mg DAILY CHRIS Administration Warfarin Sodium 9 mg 06/21/17 23:00 06/22/17 17:37 Coumadin - PO 9 mg 1800 CHRIS Administration On exam: Last Vital Signs Temp Pulse Resp BP Pulse Ox 99.4 F 57 L 20 120/67 95 06/23/17 10:00 06/23/17 14:00 06/23/17 14:00 06/23/17 14:00 06/23/17 12:00 General: Supine in bed. Extremities: No pallor, no icterus. Bilateral pedal edema, mild. Chest: breathing comfortably, clear to auscultation, no stridor or wheeze CVS: S1, S2, no gallop or murmur. Abdomen: Soft, no organomegaly, no masses, obese Neuro: Alert, oriented, non-focal. Skin: Diffuse rash, raised weals, especially limbs, around neck CBC, BMP 06/23/17 06:20 06/22/17 07:30 Assessment. Diffuse rash - ? reaction to shellfish. Steroids, antihistamine, H2 anatagonist. Requires close observation. No current active hematological issues. Please call if questions.
[2017-06-23] MEDS: methylPREDNISolone NA SUCC 125 MG/2 ML VIAL IVPUSH SCH ×2 (16:49→21:56)
--- NOTE | 2017-06-23 17:31 | CON.CARD ---
Cardiology Consult (text) - Consultation Consultation Note: CC: Cough hpi: 66 yo with h/o htn, chronic atypical cp, CAD (s/p single vessel CABG 2006 with RUSSELL to OM and ROSALINA x2 to LAD 12/2011; last cath 06/2014 showed patent RUSSELL, patent LAD stents, no sig residual dz except for 80-90% OM that is bypassed), diastolic CHF, mech mvr (st julia, 2006, on coumadin), pafib, antiphospholipid syndrome (on coumadin), TIA, COPD on home , FIGUEROA (on cpap at home), anemia, DM, HTN, fibromyalgia, migraines, obesity, LBP here with allergic reaction. + rash, swelling after eating egg roll. + pruritis. + diffuse myalgias, chronic. No recent n/v/d, headache, cough, congestion, bleeding, visual disturbances. No cp, sob, palps, dizzy, loc, pnd, orthopnea, le edema. Sees Dr. Loredo for cardio. pmh: per hpi psh: cabg, cholecystectomy, mvr, hysterectomy social: ex tob fam hx: no premature cad or scd ros: per hpi; meds: Ambulatory Orders Albuterol 0.083% Nebulizer Brigitte [Ventolin 0.083%] 1 neb NEB QID 06/21/17 Bupropion HCl [Wellbutrin Xl] 300 mg PO DAILY 06/21/17 Carbidopa/Levodopa 25/100 [Sinemet 25/100 -] 1 each PO HS 06/21/17 Carbidopa/Levodopa [Carbidopa-Levodopa 25-100 Tab] 1 each PO TID 06/21/17 Cholecalciferol (Vitamin D3) [Vitamin D3 -] 1,000 unit PO DAILY 06/21/17 Citalopram Hydrobromide [Celexa -] 10 mg PO DAILY 06/21/17 Digoxin [Lanoxin -] 0.25 mg PO DAILY 06/21/17 Ferrous Sulfate [Iron] 325 mg PO DAILY 06/21/17 Hypromellose 0.5% Opth Soln [Artificial Tears] 1 drop OD QID 06/21/17 Insulin Aspart [Novolog] 6 unit SQ TID 06/21/17 Insulin Detemir [Levemir Flextouch] 30 unit SQ HS 06/21/17 Pantoprazole Sodium [Protonix] 40 mg PO TID 06/21/17 Pramipexole Di-HCl [Mirapex] 1.5 mg PO HS 06/21/17 Pramipexole Di-HCl [Pramipexole ER] 0.5 mg PO TID 06/21/17 Pramipexole Di-HCl [Pramipexole ER] 1 mg PO HS 06/21/17 Prednisone 10 mg PO DAILY 06/21/17 Pregabalin [Lyrica] 25 mg PO BID 06/21/17 Ranolazine [Ranexa] 500 mg PO BID 06/21/17 Topiramate [Topamax] 150 mg PO BID 06/21/17 Torsemide [Demadex] 20 mg PO TID 06/21/17 Verapamil HCl [Calan Sr] 240 mg PO DAILY 06/21/17 Warfarin Sodium [Coumadin] 9 mg PO HS 06/21/17 Current Medications Albuterol Sulfate (Ventolin 0.083% Nebulizer Soln -) 1 amp NEB RQID [facility] Last Admin: 06/23/17 16:32 Dose: 1 amp Artificial Tears (Artificial Tears) 1 drop OD QID [facility] Last Admin: 06/23/17 13:52 Dose: 1 drop Bupropion HCl (Wellbutrin Xl -) 300 mg PO DAILY [facility] Last Admin: 06/23/17 10:25 Dose: 300 mg Carbidopa/Levodopa (Sinemet 25/100 -) 1 each PO TID [facility] Last Admin: 06/23/17 13:52 Dose: 1 each Citalopram Hydrobromide (Celexa -) 10 mg PO DAILY [facility] Last Admin: 06/23/17 10:23 Dose: 10 mg Digoxin (Lanoxin -) 0.25 mg PO DAILY [facility] Last Admin: 06/23/17 10:26 Dose: 0.25 mg Diphenhydramine HCl (Benadryl -) 50 mg PO Q6H PRN PRN Reason: FOR ITCHING Last Admin: 06/23/17 12:27 Dose: 50 mg Epinephrine (Epipen 0.3mg -) 0.3 mg IM PRN PRN PRN Reason: WHEEZING Famotidine/Sodium Chloride (Pepcid 20 Mg Premixed Ivpb -) 20 mg in 50 mls @ 100 mls/hr IVPB BID [facility] Insulin Aspart (Novolog Vial Sliding Scale -) 1 vial SQ ACHS [facility] PRN Reason: Protocol Last Admin: 06/23/17 17:18 Dose: 4 units Insulin Detemir (Levemir Vial) 20 units SQ BID [facility] Last Admin: 06/23/17 11:43 Dose: Not Given Methylprednisolone Sodium Succinate (Solu-Medrol -) 60 mg IVPUSH Q6H-IV [facility] Last Admin: 06/23/17 16:49 Dose: 60 mg Pramipexole Dihydrochloride (Mirapex -) 1.5 mg PO HS [facility] Last Admin: 06/22/17 21:59 Dose: 1.5 mg Pregabalin (Lyrica -) 25 mg PO BID [facility] Last Admin: 06/23/17 10:22 Dose: 25 mg Ranolazine (Ranexa -) 500 mg PO BID [facility] Last Admin: 06/23/17 10:23 Dose: 500 mg Torsemide (Demadex -) 20 mg PO DAILY [facility] Last Admin: 06/23/17 10:22 Dose: 20 mg Triamcinolone Acetonide (Aristocort 0.1% Cream -) 1 applic TP BID [facility] Verapamil HCl (Calan Sr -) 240 mg PO DAILY [facility] Last Admin: 06/23/17 10:25 Dose: 240 mg Warfarin Sodium (Coumadin -) 9 mg PO 1800 [facility] Last Admin: 06/22/17 17:37 Dose: 9 mg Vital Signs - 24 hr 06/22/17 06/22/17 06/22/17 19:00 20:00 22:00 Temperature 98.1 F 98.0 F Pulse Rate 59 L 62 Respiratory 20 20 22 Rate Blood Pressure 111/39 135/57 O2 Sat by Pulse 98 Oximetry (%) 06/23/17 06/23/17 06/23/17 00:05 02:56 03:00 Temperature 97.4 F L Pulse Rate 60 Respiratory 20 Rate Blood Pressure 124/44 O2 Sat by Pulse 97 97 Oximetry (%) 06/23/17 06/23/17 06/23/17 04:00 06:00 06:09 Temperature 97.3 F L Pulse Rate 62 Respiratory 20 20 Rate Blood Pressure 122/45 O2 Sat by Pulse 97 97 Oximetry (%) 06/23/17 06/23/17 06/23/17 09:03 09:45 10:00 Temperature 99.4 F Pulse Rate 66 Respiratory 21 Rate Blood Pressure 122/42 120/40 O2 Sat by Pulse 97 Oximetry (%) 06/23/17 06/23/17 06/23/17 10:26 12:00 14:00 Temperature Pulse Rate 66 57 L Respiratory 20 Rate Blood Pressure 120/67 O2 Sat by Pulse 95 Oximetry (%) 06/23/17 16:31 Temperature Pulse Rate Respiratory Rate Blood Pressure O2 Sat by Pulse 95 Oximetry (%) Intake & Output 06/21/17 06/22/17 06/23/17 06/24/17 07:59 07:59 07:59 07:59 Intake Total 450 834 184 Output Total 500 Balance -50 834 184 Weight 212 lb 6.4 oz nad, anxious no jvd, neck supple rrr s1s2 no mrg ttp of sternum. PMI ND ctab, nl eff abd nt pos bs, nd pos dp pt no carotid bruits no le e/c/c aaox3 no jaundice diaphoresis CBC 06/23/17 06:20 06/22/17 07:30 last bmp 06/22 Microbiology 06/21/17 14:10 Urine - Urine Clean Catch Urine Culture - Preliminary Presumptive Mrsa (Pbp2a Pos) Laboratory Tests 06/23/17 06/23/17 06:20 06:20 INR 3.00 H D PTT (Actin FS) 60.6 H D ekg: nsr, rsr' varient. diffuse t wave flattening/inversions. (similar to priors) borderline prolonged qtc. tele: sb cxr: no acute pulmonary disease. bibasilar atelectasis vs. scar Echo 04/05: nl LV/EF; nl RV; [facility] mild mibi 12/2013: no ischemia a/p: 66 yo with h/o htn, chronic atypical cp, CAD (s/p single vessel CABG 2006 with RUSSELL to OM and ROSALINA x2 to LAD 12/2011; last cath 06/2014 showed patent RUSSELL, patent LAD stents, no sig residual dz except for 80-90% OM that is bypassed), diastolic CHF, [facility] ([facility], 2006, on coumadin), pafib, antiphospholipid syndrome (on coumadin), TIA, COPD on home 02, FIGUEROA (on cpap at home), anemia, DM, HTN, fibromyalgia, migraines, obesity, LBP here with allergic reaction. allergic reaction - ongoing mgm't per pmd/derm/ID/pulm/critical care [facility] MVR: -also with antiphospholipid syndrome --> high risk for thrombosis of valve. on AC w/ coumadin, target INR 2.5 to 3.5. - was on heparin bridge to therapeutic INR, now off. Ongoing INR mgm't perp . cad, s/p cabg, pci: - no anginal sx's. -no bb due to copd, on verapamil instead -not on statin due to prior intolerance -cont ranexa for possible small vessel dz symptoms -on ac, no asa diastolic chf - currently euvolemic on home torsemide regimen, con't. patient is on torsemide 40 mg/day as outpatient--> will adjust dose. - daily weights, I/O's while on steroids. HTN: - reasonable control on current meds, con't to monitor pafib with h/o tia: -rare episodes in past -remains in sr here based on initial ekg and exam -continue verapamil and dig. dig level okay here. -cont ac with coumadin as mentioned above, - lyte repletion prn. copd on home O2/figueroa. - stable, pulm following.
[2017-06-23] MEDS: WARFARIN NA 3 MG TABLET PO SCH (18:22)
[2017-06-23] MEDS: TRIAMCINOLONE ACET 0.1% CREAM 15 GM TUBE TP SCH (21:55)
[2017-06-23] MEDS: FAMOTIDINE 20 MG/50 ML IVPB 20 MG/50 ML MG IVPB SCH (21:57)
[2017-06-23] MEDS: PRAMIPEXOLE DIHYDROCHLORIDE 0.5 MG TABLET PO SCH (22:42)
[2017-06-24] MEDS: methylPREDNISolone NA SUCC 125 MG/2 ML VIAL IVPUSH SCH (02:40)
[2017-06-24] MEDS: diphenhydrAMINE HCL 25 MG CAPSULE (FP) PO PRN ×3 (02:42→21:52)
[2017-06-24] MEDS: CARBIDOPA/LEVODOPA 25/100 TABLET (FP) PO SCH ×3 (05:33→22:54)
[2017-06-24 06:11] LABS: HEMATOCRIT 35.6 % (32.4-45.2); HEMOGLOBIN 11.9 GM/dL (10.7-15.3); MCH 30.6 pg (25.7-33.7); MCHC 33.5 g/dl (32.0-36.0); MEAN CELL VOLUME 91.3 fl (80-96); MEAN PLT VOLUME 10.5 fl (7.5-11.1); PLATELET COUNT 230 K/MM3 (134-434); RDW 14.9 % (11.6-15.6); WHITE BLOOD COUNT 7.3 K/mm3 (4.0-10.0)
[2017-06-24] MEDS: INSULIN SLIDING SCALE (NOVOLOG) 1 VIAL SQ SCH ×4 (06:12→21:53)
[2017-06-24 06:24] LABS: INR 3.56 (0.82-1.09); PROTHROMBIN TIME (PATIENT) 40.2 SEC (9.98-11.88)
--- NOTE | 2017-06-24 06:33 | PN ---
Progress Note (short form) - Note Progress Note: PULM/CCM Seen and examined in ICU 24HR: -sent down from floor yesterday due to concern for angioedema and erythema muliforme rash -all symptoms save puritis improved with steroids,famotadine, benadryl -hemodyanmically stable Vital Signs Temp 98.2 F 06/24/17 02:00 Pulse 55 L 06/24/17 04:00 Resp 22 06/24/17 04:00 BP 149/53 06/24/17 04:00 Pulse Ox 95 06/24/17 04:57 Intake & Output 06/23/17 06/23/17 06/24/17 11:59 23:59 11:59 Intake Total 468 250 Balance 468 250 Weight 97.324 kg Intake: IV 418 1st IV SL 50 Heparin - 25,000 Unit In 368 Normal Saline - 495 ml @ 1,000 UNIT/HR 20 mls/hr IV TITR [facility] Rx#: [id number] IVPB 50 50 Oral 200 Other: Voiding Method Bedside Commode Bedside Commode # Unmeasured Voids Void 3 Bowel Movement No Weight Measurement Method Built in Bedscale CBCD WBC 7.3 K/mm3 (4.0-10.0) D 06/24/17 05:50 RBC 3.90 M/mm3 (3.60-5.2) 06/24/17 05:50 Hgb 11.9 GM/dL (10.7-15.3) 06/24/17 05:50 Hct 35.6 % (32.4-45.2) 06/24/17 05:50 MCV 91.3 fl (80-96) 06/24/17 05:50 MCHC 33.5 g/dl (32.0-36.0) 06/24/17 05:50 RDW 14.9 % (11.6-15.6) 06/24/17 05:50 Plt Count 230 K/MM3 (134-434) 06/24/17 05:50 MPV 10.5 fl (7.5-11.1) 06/24/17 05:50 CMP Sodium 137 mmol/L (136-145) 06/22/17 07:30 Potassium 3.6 mmol/L (3.5-5.1) 06/22/17 07:30 Chloride 103 mmol/L (98-107) 06/22/17 07:30 Carbon Dioxide 25 mmol/L (21-32) 06/22/17 07:30 Anion Gap 9 (8-16) 06/22/17 07:30 BUN 26 mg/dL (7-18) H 06/22/17 07:30 Creatinine 1.1 mg/dL (0.55-1.02) H 06/22/17 07:30 Creat Clearance w eGFR 49.85 (>60) 06/22/17 07:30 Random Glucose 256 mg/dL (74-106) H 06/22/17 07:30 Calcium 8.2 mg/dL (8.5-10.1) L 06/22/17 07:30 Total Bilirubin 0.3 mg/dL (0.2-1.0) D 06/22/17 07:30 AST 8 U/L (15-37) L 06/22/17 07:30 ALT 10 U/L (12-78) L 06/22/17 07:30 Alkaline Phosphatase 56 U/L (45-117) 06/22/17 07:30 Total Protein 6.1 g/dl (6.4-8.2) L 06/22/17 07:30 Albumin 3.0 g/dl (3.4-5.0) L 06/22/17 07:30 CARDIAC ENZYMES Troponin I < 0.02 ng/ml (0.00-0.05) 06/21/17 07:30 Active Medications Albuterol Sulfate (Ventolin 0.083% Nebulizer Soln -) 1 amp NEB RQID [facility] Last Admin: 06/23/17 21:12 Dose: 1 amp Artificial Tears (Artificial Tears) 1 drop OD QID [facility] Last Admin: 06/23/17 21:55 Dose: 1 drop Bupropion HCl (Wellbutrin Xl -) 300 mg PO DAILY [facility] Last Admin: 06/23/17 10:25 Dose: 300 mg Carbidopa/Levodopa (Sinemet 25/100 -) 1 each PO TID [facility] Last Admin: 06/24/17 05:33 Dose: 1 each Citalopram Hydrobromide (Celexa -) 10 mg PO DAILY [facility] Last Admin: 06/23/17 10:23 Dose: 10 mg Digoxin (Lanoxin -) 0.25 mg PO DAILY [facility] Last Admin: 06/23/17 10:26 Dose: 0.25 mg Diphenhydramine HCl (Benadryl -) 50 mg PO Q6H PRN PRN Reason: FOR ITCHING Last Admin: 06/24/17 02:42 Dose: 50 mg Epinephrine (Epipen 0.3mg -) 0.3 mg IM PRN PRN PRN Reason: WHEEZING Famotidine/Sodium Chloride (Pepcid 20 Mg Premixed Ivpb -) 20 mg in 50 mls @ 100 mls/hr IVPB BID [facility] Last Admin: 06/23/17 21:57 Dose: 100 mls/hr Insulin Aspart (Novolog Vial Sliding Scale -) 1 vial SQ ACHS [facility] PRN Reason: Protocol Last Admin: 06/24/17 06:12 Dose: 6 units Insulin Detemir (Levemir Vial) 20 units SQ BID [facility] Last Admin: 06/23/17 22:06 Dose: 20 unit Methylprednisolone Sodium Succinate (Solu-Medrol -) 60 mg IVPUSH Q6H-IV [facility] Last Admin: 06/24/17 02:40 Dose: 60 mg Pramipexole Dihydrochloride (Mirapex -) 1.5 mg PO HS [facility] Last Admin: 06/23/17 22:42 Dose: 1.5 mg Pregabalin (Lyrica -) 25 mg PO BID [facility] Last Admin: 06/23/17 21:55 Dose: 25 mg Ranolazine (Ranexa -) 500 mg PO BID [facility] Last Admin: 06/23/17 21:55 Dose: 500 mg Torsemide (Demadex -) 40 mg PO DAILY [facility] Triamcinolone Acetonide (Aristocort 0.1% Cream -) 1 applic TP BID [facility] Last Admin: 06/23/17 21:55 Dose: 1 applic Verapamil HCl (Calan Sr -) 240 mg PO DAILY [facility] Last Admin: 06/23/17 10:25 Dose: 240 mg Warfarin Sodium (Coumadin -) 9 mg PO 1800 [facility] Last Admin: 06/23/17 18:22 Dose: 9 mg PE: HEENT: PERRLA, tongue wnl, no pallate or base of tongue swelling, phonation normal, no stridor PULM: clear CV; RRR, no m/r/g ABD; soft, NT EXT: trace edema, 2+ pulse Neuro: intact, lucid and oriented A/ 66 y/o fem with MMP (CAD,COPD, asthma, FIGUEROA, S/p MVR), now with diffuse rash and concern for angio edema 2/2 possible shell fish exposure now resolving P/ -derm consult appreciated -tape IV steroids -bendaryl prn for puritis -cont home antihtn, lyrica, insulin, anticoag -can return to floor today [facility] [id number] 35cct Problem List - Problems (1) Erythema multiforme minor Code(s): L51.9 - ERYTHEMA MULTIFORME, UNSPECIFIED (2) Afib Code(s): I48.91 - UNSPECIFIED ATRIAL FIBRILLATION Qualifiers: Atrial fibrillation type: paroxysmal Qualified Code(s): I48.0 - Paroxysmal atrial fibrillation (3) CAD (coronary artery disease) Code(s): I25.10 - ATHSCL HEART DISEASE OF [place] CORONARY ARTERY W/O ANG PCTRS (4) CHF (congestive heart failure) Code(s): I50.9 - HEART FAILURE, UNSPECIFIED (5) COPD (chronic obstructive pulmonary disease) Code(s): J44.9 - CHRONIC OBSTRUCTIVE PULMONARY DISEASE, UNSPECIFIED Qualifiers: COPD type: COPD with acute exacerbation Qualified Code(s): J44.1 - Chronic obstructive pulmonary disease with (acute) exacerbation (6) Diabetes Code(s): E11.9 - TYPE 2 DIABETES MELLITUS WITHOUT COMPLICATIONS Qualifiers: Diabetes mellitus type: type 2 Diabetes mellitus complication status: with neurologic complications (8) IDDM (insulin dependent diabetes mellitus) Code(s): E11.9 - TYPE 2 DIABETES MELLITUS WITHOUT COMPLICATIONS; Z79.4 - 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
[2017-06-24 06:34] LABS: ANION GAP 13 (8-16); BLOOD UREA NITROGEN 25 mg/dL (7-18); CALCIUM 8.5 mg/dL (8.5-10.1); CHLORIDE 103 mmol/L (98-107); CO2 23 mmol/L (21-32); GLUCOSE,RANDOM 285 mg/dL (74-106); POTASSIUM 3.9 mmol/L (3.5-5.1); SGOT/AST 10 U/L (15-37); SODIUM 139 mmol/L (136-145)
[2017-06-24 06:37] LABS: ALK PHOS 56 U/L (45-117); BILIRUBIN,TOTAL 0.3 mg/dL (0.2-1.0); CREATININE 1.2 mg/dL (0.55-1.02); SGPT/ALT 23 U/L (12-78); TOT PROT 6.5 g/dl (6.4-8.2)
[2017-06-24 06:40] LABS: HBSAG SCREEN Negative (Negative); HEP A AB, IGM Negative (Negative); HEP B CORE AB, TOT Negative (Negative)
--- NOTE | 2017-06-24 06:55 | PN ---
Progress Note, Physician Chief Complaint: ID Marked improvement since seen on floor yesterday morning with facial and lips uvula swelling IV steroids given Solumedrol Still on Ceftriaxone - Current Medication List Current Medications: Active Medications Albuterol Sulfate (Ventolin 0.083% Nebulizer Soln -) 1 amp NEB RQID [facility] Last Admin: 06/23/17 21:12 Dose: 1 amp Artificial Tears (Artificial Tears) 1 drop OD QID [facility] Last Admin: 06/23/17 21:55 Dose: 1 drop Bupropion HCl (Wellbutrin Xl -) 300 mg PO DAILY [facility] Last Admin: 06/23/17 10:25 Dose: 300 mg Carbidopa/Levodopa (Sinemet 25/100 -) 1 each PO TID [facility] Last Admin: 06/24/17 05:33 Dose: 1 each Citalopram Hydrobromide (Celexa -) 10 mg PO DAILY [facility] Last Admin: 06/23/17 10:23 Dose: 10 mg Digoxin (Lanoxin -) 0.25 mg PO DAILY [facility] Last Admin: 06/23/17 10:26 Dose: 0.25 mg Diphenhydramine HCl (Benadryl -) 50 mg PO Q6H PRN PRN Reason: FOR ITCHING Last Admin: 06/24/17 02:42 Dose: 50 mg Epinephrine (Epipen 0.3mg -) 0.3 mg IM PRN PRN PRN Reason: WHEEZING Famotidine/Sodium Chloride (Pepcid 20 Mg Premixed Ivpb -) 20 mg in 50 mls @ 100 mls/hr IVPB BID [facility] Last Admin: 06/23/17 21:57 Dose: 100 mls/hr Insulin Aspart (Novolog Vial Sliding Scale -) 1 vial SQ ACHS [facility] PRN Reason: Protocol Last Admin: 06/24/17 06:12 Dose: 6 units Insulin Detemir (Levemir Vial) 20 units SQ BID [facility] Last Admin: 06/23/17 22:06 Dose: 20 unit Methylprednisolone Sodium Succinate (Solu-Medrol -) 60 mg IVPUSH Q6H-IV [facility] Last Admin: 06/24/17 02:40 Dose: 60 mg Pramipexole Dihydrochloride (Mirapex -) 1.5 mg PO HS [facility] Last Admin: 06/23/17 22:42 Dose: 1.5 mg Pregabalin (Lyrica -) 25 mg PO BID [facility] Last Admin: 06/23/17 21:55 Dose: 25 mg Ranolazine (Ranexa -) 500 mg PO BID [facility] Last Admin: 06/23/17 21:55 Dose: 500 mg Torsemide (Demadex -) 40 mg PO DAILY [facility] Triamcinolone Acetonide (Aristocort 0.1% Cream -) 1 applic TP BID [facility] Last Admin: 06/23/17 21:55 Dose: 1 applic Verapamil HCl (Calan Sr -) 240 mg PO DAILY [facility] Last Admin: 06/23/17 10:25 Dose: 240 mg Warfarin Sodium (Coumadin -) 9 mg PO 1800 [facility] Last Admin: 06/23/17 18:22 Dose: 9 mg - Objective Vital Signs: Vital Signs Temperature 98.9 F 06/24/17 06:00 Pulse Rate 55 L 06/24/17 06:00 Respiratory Rate 20 06/24/17 06:00 Blood Pressure 167/83 06/24/17 06:00 O2 Sat by Pulse Oximetry (%) 95 06/24/17 04:57 Constitutional: Yes: No Distress HENT: Yes: Other (facial swelling decreased) Integumentary: Yes: Rash Labs: CBC, BMP 06/24/17 05:50 06/24/17 05:50 INR, PTT INR 3.00 (0.82-1.09) H D 06/23/17 06:20 Assessment/Plan Microbiology 06/21/17 16:45 Blood - Peripheral Venous Blood Culture - Preliminary NO GROWTH OBTAINED AFTER 48 HOURS, INCUBATION TO CONTINUE FOR 3 DAYS. 06/21/17 16:45 Blood - Peripheral Venous Blood Culture - Preliminary NO GROWTH OBTAINED AFTER 48 HOURS, INCUBATION TO CONTINUE FOR 3 DAYS. 06/21/17 14:10 Urine - Urine Clean Catch Urine Culture - Preliminary Presumptive Mrsa (Pbp2a Pos) Laboratory Tests 06/24/17 06/24/17 05:50 05:50 WBC 7.3 D Hgb 11.9 Plt Count 230 BUN 25 H Creatinine 1.2 H Creat Clearance w eGFR 45.09 Assessment Allergic reaction with urticarial rash facial swelling MRSA colnization urine Plan Continue Solumedrol but decrease dose 60 q 8 H Stop Ceftriaxone Contact isolation resistant organism MRSA From ID standpoint will sign off as no ID issue at this time Yoly MEZA
[2017-06-24] MEDS ORDERED: methylPREDNISolone NA SUCC 40 MG/1 ML VIAL IVPUSH SCH (07:00)
[2017-06-24] MEDS ORDERED: PT OWN MED DRAWER 7, Y5N ONE (07:36)
[2017-06-24] MEDS ORDERED: methylPREDNISolone NA SUCC 125 MG/2 ML VIAL ONE (07:41)
[2017-06-24 08:08] LABS: SERUM IRON SATURATION 11 % (15-55); TOTAL IRON BINDING CAPACITY 185 ug/dL (250-450); UIBC 164 ug/dL (118-369)
[2017-06-24] MEDS: ALBUTEROL SO4 0.083% IH SOL 2.5 MG/3 ML VIAL.NEB. NEB SCH ×4 (08:42→20:29)
[2017-06-24] MEDS ORDERED: TORSEMIDE 20 MG TABLET (FP) PO SCH (10:00)
--- NOTE | 2017-06-24 10:05 | PN ---
Progress Note (short form) - Note Progress Note: patient is doing well she is still complaining of itching all over her body and itchy throat but she stated she is feeling better, she has no acute issues overnight. PE: aaox3 s1 and s2 rrr abdomen obese soft non-tender lungs good air entry with bilateral wheezing no ext edema facial swelling has decreased PERRLA A/P c/w solumedrol c/w bendaryl c/w home medication hold the warfarin 9mg daily - repeat INR tomorrow hold digoxin HR repeat levels tomorrow c.w verapamil HR and BPO c/w mood stabilizing medication c/w ranaloziene 500mg BID diebetes: c/w insulin Visit type - Emergency Visit Emergency Visit: No - New Patient This patient is new to me today: Yes Date on this admission: 06/24/17 - Critical Care Critical Care patient: Yes Total Critical Care Time (in minutes): 30 Critical Care Statement: The care of this patient involved high complexity decision making to prevent further life threatening deterioration of the patient 's condition and/or to evaluate & treat vital organ system(s) failure or risk of failure. - Discharge Referral Referred to [facility] No
[2017-06-24] MEDS: VERAPAMIL HCL 240 MG E.R. TABLET (FP) PO SCH (10:23)
[2017-06-24] MEDS: RANOLAZINE E.R. 500 MG TABLET (FP) PO SCH ×2 (10:23→21:52)
[2017-06-24] MEDS: CITALOPRAM HYDROBROMIDE 10 MG TABLET (FP) PO SCH (10:23)
[2017-06-24] MEDS: FAMOTIDINE 20 MG/50 ML IVPB 20 MG/50 ML MG IVPB SCH ×2 (10:24→21:52)
[2017-06-24] MEDS: PREGABALIN 25 MG CAPSULE PO SCH ×2 (10:24→21:53)
[2017-06-24] MEDS: INSULIN DETEMIR 100 UNITS/ML MDV SQ SCH (11:07)
[2017-06-24] MEDS: ARTIFICIAL TEARS (POLYVINYL ALCOHOL 1.4%) OPTH DROPS OD SCH ×4 (11:17→21:53)
--- NOTE | 2017-06-24 12:00 | PN ---
Progress Note (short form) - Note Progress Note: s: no sob palps dizzy; chronic msk cp o: Vital Signs Period Temp Pulse Resp BP Sys/Wise Pulse Ox Last 24 Hr 98.2 F-98.9 F 54-66 16-22 120-167/47-83 94-95 nad, anxious no jvd, neck supple rrr s1s2 no mrg ttp of sternum. ctab, nl eff abd nt pos bs, nd no le e/c/c aaox3 no jaundice diaphoresis Current Medications Generic Name Dose Route Start Last Admin Trade Name Freq PRN Reason Stop Dose Admin Albuterol Sulfate 1 amp 06/22/17 08:00 06/24/17 08:42 Ventolin 0.083% Nebulizer Soln - NEB 1 amp RQID [facility] Administration Artificial Tears 1 drop 06/21/17 22:00 06/24/17 11:17 Artificial Tears OD 1 drop QID [facility] Administration Bupropion HCl 300 mg 06/22/17 10:00 06/24/17 10:23 Wellbutrin Xl - PO 300 mg DAILY [facility] Administration Carbidopa/Levodopa 1 each 06/21/17 22:00 06/24/17 05:33 Sinemet 25/100 - PO 1 each TID [facility] Administration Citalopram Hydrobromide 10 mg 06/22/17 10:00 06/24/17 10:23 Celexa - PO 10 mg DAILY [facility] Administration Digoxin 0.25 mg 06/22/17 10:00 06/23/17 10:26 Lanoxin - PO 0.25 mg DAILY [facility] Administration Diphenhydramine HCl 50 mg 06/22/17 02:46 06/24/17 10:23 Benadryl - PO 50 mg Q6H PRN Administration FOR ITCHING Epinephrine 0.3 mg 06/23/17 12:00 Epipen 0.3mg - IM PRN PRN WHEEZING Famotidine/Sodium Chloride 20 mg in 50 mls @ 100 mls/hr 06/23/17 22:00 10:24 Pepcid 20 Mg Premixed Ivpb - IVPB 100 mls/hr BID [facility] Administration Insulin Aspart 1 vial 06/21/17 22:00 06/24/17 11:33 Novolog Vial Sliding Scale - SQ 2 units ACHS [facility] Administration Protocol Insulin Detemir 20 units 06/22/17 22:00 06/24/17 11:07 Levemir Vial SQ 20 unit BID [facility] Administration Methylprednisolone Sodium Succinate 60 mg 06/24/17 16:00 Solu-Medrol - IVPUSH Q8H [facility] Pramipexole Dihydrochloride 1.5 mg 06/21/17 22:00 06/23/17 22:42 Mirapex - PO 1.5 mg HS [facility] Administration Pregabalin 25 mg 06/21/17 22:00 06/24/17 10:24 Lyrica - PO 25 mg BID [facility] Administration Ranolazine 500 mg 06/21/17 22:00 06/24/17 10:23 Ranexa - PO 500 mg BID [facility] Administration Torsemide 40 mg 06/24/17 10:00 06/24/17 10:23 Demadex - PO 40 mg DAILY [facility] Administration Triamcinolone Acetonide 1 applic 06/23/17 22:00 06/23/17 21:55 Aristocort 0.1% Cream - TP 1 applic BID [facility] Administration Verapamil HCl 240 mg 06/22/17 10:00 06/24/17 10:23 Calan Sr - PO 240 mg DAILY [facility] Administration Warfarin Sodium 9 mg 06/21/17 23:00 06/23/17 18:22 Coumadin - PO 9 mg 1800 [facility] Administration CBC, BMP 06/24/17 05:50 06/24/17 05:50 ekg: nsr, rsr' varient. diffuse t wave flattening/inversions. (similar to priors) borderline prolonged qtc. tele: sr cxr: no acute pulmonary disease. bibasilar atelectasis vs. scar Echo 04/05: nl LV/EF; nl RV; well-seated [facility] MVR. mild mibi 12/2013: no ischemia a/p: 66 yo with h/o htn, chronic atypical cp, CAD (s/p single vessel CABG 2006 with RUSSELL to OM and ROSALINA x2 to LAD 12/2011; last cath 06/2014 showed patent RUSSELL, patent LAD stents, no sig residual dz except for 80-90% OM that is bypassed), diastolic CHF, [facility] mvr (st julia, 2006, on coumadin), pafib, antiphospholipid syndrome (on coumadin), TIA, COPD on home 02, FIGUEROA (on cpap at home), anemia, DM, HTN, fibromyalgia, migraines, obesity, LBP here with allergic reaction. allergic reaction - ongoing mgm't per pmd/derm/ID/pulm/critical care [facility] MVR: -also with antiphospholipid syndrome --> high risk for thrombosis of valve. on AC w/ coumadin, target INR 2.5 to 3.5. cad, s/p cabg, pci: - no anginal sx's. -no bb due to copd, on verapamil instead -not on statin due to prior intolerance -cont ranexa for possible small vessel dz symptoms -on ac, no asa diastolic chf - currently euvolemic on home torsemide regimen, con't. patient is on torsemide 40 mg/day as outpatient - daily weights, I/O's while on steroids. HTN: - reasonable control on current meds, con't to monitor pafib with h/o tia: -rare episodes in past -remains in sr here based on initial ekg and exam -continue verapamil and dig. dig level okay here. -cont ac with coumadin as mentioned above, - lyte repletion prn. copd on home O2/figueroa. - stable, pulm following.
[2017-06-24] MEDS: TRIAMCINOLONE ACET 0.1% CREAM 15 GM TUBE TP SCH ×2 (13:16→21:53)
--- NOTE | 2017-06-24 15:43 | PN ---
Progress Note (short form) - Note Progress Note: Seen in follow up. Rash/swelling much improved now. Ongoing pruritis. Meds reviewed. Current Medications Generic Name Dose Route Start Last Admin Trade Name Freq PRN Reason Stop Dose Admin Albuterol Sulfate 1 amp 06/22/17 08:00 06/24/17 12:15 Ventolin 0.083% Nebulizer Soln - NEB 1 amp RQID [facility]IS Administration Artificial Tears 1 drop 06/21/17 22:00 06/24/17 13:20 Artificial Tears OD 1 drop QID [facility] Administration Bupropion HCl 300 mg 06/22/17 10:00 06/24/17 10:23 Wellbutrin Xl - PO 300 mg DAILY [facility]IS Administration Carbidopa/Levodopa 1 each 06/21/17 22:00 06/24/17 13:12 Sinemet 25/100 - PO 1 each TID [facility]IS Administration Citalopram Hydrobromide 10 mg 06/22/17 10:00 06/24/17 10:23 Celexa - PO 10 mg DAILY [facility] Administration Digoxin 0.25 mg 06/22/17 10:00 06/23/17 10:26 Lanoxin - PO 0.25 mg DAILY [facility] Administration Diphenhydramine HCl 50 mg 06/22/17 02:46 06/24/17 10:23 Benadryl - PO 50 mg Q6H PRN Administration FOR ITCHING Epinephrine 0.3 mg 06/23/17 12:00 Epipen 0.3mg - IM PRN PRN WHEEZING Famotidine/Sodium Chloride 20 mg in 50 mls @ 100 mls/hr 06/23/17 22:00 10:24 Pepcid 20 Mg Premixed Ivpb - IVPB 100 mls/hr BID [facility]IS Administration Insulin Aspart 1 vial 06/21/17 22:00 06/24/17 11:33 Novolog Vial Sliding Scale - SQ 2 units ACHS [facility] Administration Protocol Insulin Detemir 20 units 06/22/17 22:00 06/24/17 11:07 Levemir Vial SQ 20 unit BID [facility] Administration Methylprednisolone Sodium Succinate 60 mg 06/24/17 16:00 Solu-Medrol - IVPUSH Q8H [facility] Pramipexole Dihydrochloride 1.5 mg 06/21/17 22:00 06/23/17 22:42 Mirapex - PO 1.5 mg HS [facility]IS Administration Pregabalin 25 mg 06/21/17 22:00 06/24/17 10:24 Lyrica - PO 25 mg BID [facility]IS Administration Ranolazine 500 mg 06/21/17 22:00 06/24/17 10:23 Ranexa - PO 500 mg BID [facility]IS Administration Torsemide 40 mg 06/24/17 10:00 06/24/17 10:23 Demadex - PO 40 mg DAILY [facility]IS Administration Triamcinolone Acetonide 1 applic 06/23/17 22:00 06/24/17 13:16 Aristocort 0.1% Cream - TP 1 applic BID [facility] Administration Verapamil HCl 240 mg 06/22/17 10:00 06/24/17 10:23 Calan Sr - PO 240 mg DAILY [facility] Administration Warfarin Sodium 9 mg 06/21/17 23:00 06/23/17 18:22 Coumadin - PO 9 mg 1800 [facility]IS Administration On exam: Ge Last Vital Signs Temp Pulse Resp BP Pulse Ox 98.9 F 63 19 149/71 95 06/24/17 06:00 06/24/17 10:00 06/24/17 10:00 06/24/17 10:00 06/24/17 09:00 neral: Supine in bed. Extremities: No pallor, no icterus. Bilateral pedal edema, mild. Chest: breathing comfortably Abdomen: obese Neuro: Alert, oriented, non-focal. Skin: Weals resolved/ CBC, BMP 06/24/17 05:50 06/24/17 05:50 Assessment. Diffuse rash - ? reaction to shellfish. Steroids, antihistamine, H2 anatagonist. Now much improved. No current active hematological issues. Please call if questions.
[2017-06-24] MEDS ORDERED: methylPREDNISolone NA SUCC 125 MG/2 ML VIAL IVPUSH SCH (16:00)
[2017-06-24] MEDS: DIGOXIN 0.25 MG TABLET (FP) PO SCH (16:57)
[2017-06-24] MEDS ORDERED: EPINEPHrine/PF 1 MG/1 ML (1:1,000) AMPULE IM ONE (21:31)
[2017-06-24] MEDS ORDERED: EPINEPHrine 1:1,000 0.3 MG/0.3 ML SYR IM PRN (21:31)
[2017-06-24] MEDS ORDERED: INSULIN DETEMIR 100 UNITS/ML MDV SQ SCH (22:00)
[2017-06-24] MEDS: PRAMIPEXOLE DIHYDROCHLORIDE 0.5 MG TABLET PO SCH (22:54)
--- NOTE | 2017-06-25 00:08 | PN ---
Progress Note, Physician Chief Complaint: icu monitoring sp allergic reaction to shell fish she ate several days ago History of Present Illness: diabetes mellitus,mvr,chf cad,copd,ashmatic,lupus anticoagulant anticardiolipin ab,had recent ingestion of shell fish dinner developed allergy and hives now treated with iv steroids and benadryl which seem to help,she feel itching improving and breathing is better - Current Medication List Current Medications: Active Medications Albuterol Sulfate (Ventolin 0.083% Nebulizer Soln -) 1 amp NEB RQID [facility] Artificial Tears (Artificial Tears) 1 drop OD QID [facility] Last Admin: 06/24/17 21:53 Dose: 1 drop Bupropion HCl (Wellbutrin Xl -) 300 mg PO DAILY [facility] Carbidopa/Levodopa (Sinemet 25/100 -) 1 each PO TID [facility] Last Admin: 06/24/17 22:54 Dose: 1 each Citalopram Hydrobromide (Celexa -) 10 mg PO DAILY [facility] Digoxin (Lanoxin -) 0.25 mg PO DAILY [facility] Diphenhydramine HCl (Benadryl -) 50 mg PO Q6H PRN PRN Reason: FOR ITCHING Last Admin: 06/24/17 21:52 Dose: 50 mg Epinephrine (Epipen 0.3mg -) 0.3 mg IM PRN PRN PRN Reason: WHEEZING Famotidine/Sodium Chloride (Pepcid 20 Mg Premixed Ivpb -) 20 mg in 50 mls @ 144 mls/hr IVPB BID [facility] Last Admin: 06/24/17 21:52 Dose: 144 mls/hr Insulin Aspart (Novolog Vial Sliding Scale -) 1 vial SQ ACHS [facility] PRN Reason: Protocol Last Admin: 06/24/17 21:53 Dose: 8 units Methylprednisolone Sodium Succinate (Solu-Medrol -) 60 mg IVPUSH Q8H [facility] Pramipexole Dihydrochloride (Mirapex -) 1.5 mg PO HS [facility] Last Admin: 06/24/17 22:54 Dose: 1.5 mg Pregabalin (Lyrica -) 25 mg PO BID [facility] Last Admin: 06/24/17 21:53 Dose: 25 mg Ranolazine (Ranexa -) 500 mg PO BID [facility] Last Admin: 06/24/17 21:52 Dose: 500 mg Torsemide (Demadex -) 40 mg PO DAILY [facility] Triamcinolone Acetonide (Aristocort 0.1% Cream -) 1 applic TP BID [facility] Last Admin: 06/24/17 21:53 Dose: 1 applic Verapamil HCl (Calan Sr -) 240 mg PO DAILY [facility] Warfarin Sodium (Coumadin -) 9 mg PO 1800 [facility] - Objective Vital Signs: Vital Signs Temperature 98.2 F 06/24/17 22:00 Pulse Rate 64 06/24/17 22:00 Respiratory Rate 18 06/24/17 22:00 Blood Pressure 140/74 06/24/17 22:00 O2 Sat by Pulse Oximetry (%) 95 06/24/17 20:16 Constitutional: Yes: Well Nourished Eyes: Yes: EOM Intact HENT: Yes: Normocephalic Neck: Yes: Trachea Midline Respiratory: Yes: CTA Bilaterally Gastrointestinal: Yes: Normal Bowel Sounds ...Rectal Exam: Yes: Deferred Genitourinary: Yes: WNL Breast(s): Yes: WNL Musculoskeletal: Yes: Muscle Weakness Neurological: Yes: Alert, Oriented Labs: CBC, BMP 06/24/17 05:50 06/24/17 05:50 INR, PTT INR 3.56 (0.82-1.09) H 06/24/17 05:50 Problem List - Problems (1) Urticaria Code(s): L50.9 - URTICARIA, UNSPECIFIED (2) Asthma Code(s): J45.909 - UNSPECIFIED ASTHMA, UNCOMPLICATED (3) Afib Code(s): I48.91 - UNSPECIFIED ATRIAL FIBRILLATION Qualifiers: Atrial fibrillation type: paroxysmal Qualified Code(s): I48.0 - Paroxysmal atrial fibrillation (4) Anterior epistaxis Code(s): R04.0 - EPISTAXIS (5) Asthma exacerbation in COPD Code(s): J44.1 - CHRONIC OBSTRUCTIVE PULMONARY DISEASE W (ACUTE) EXACERBATION; J45.901 - UNSPECIFIED ASTHMA WITH (ACUTE) EXACERBATION (6) CAD (coronary artery disease) Code(s): I25.10 - ATHSCL HEART DISEASE OF [place] CORONARY ARTERY W/O ANG PCTRS (7) CHF (congestive heart failure) Code(s): I50.9 - HEART FAILURE, UNSPECIFIED Assessment/Plan Current Medications Current Active Problems Asthma (Acute) Erythema multiforme minor (Acute) urticaria rash copd, mvr htn diabetes mellitus hyperglcyemia Abnormal Lab Results 06/21/17 06/23/17 06/24/17 23:30 06:20 05:50 PT with INR 40.20 H INR 3.56 H PTT (Actin FS) BUN Creatinine Random Glucose Iron 21 L TIBC 185 L Iron Saturation 11 L AST Albumin Hepatitis A Ab Total Positive H 06/24/17 06/24/17 05:50 06:08 PT with INR INR PTT (Actin FS) 40.6 H D BUN 25 H Creatinine 1.2 H Random Glucose 285 H Iron TIBC Iron Saturation AST 10 L Albumin 3.0 L Hepatitis A Ab Total Laboratory Results - last 24 hr 06/21/17 06/21/17 06/23/17 23:30 23:30 06:20 WBC RBC Hgb Hct MCV MCH MCHC RDW Plt Count MPV PT with INR INR PTT (Actin FS) Sodium Potassium Chloride Carbon Dioxide Anion Gap BUN Creatinine Creat Clearance w eGFR POC Glucometer Random Glucose Calcium Iron 21 L TIBC 185 L Iron Saturation 11 L Total Bilirubin AST ALT Alkaline Phosphatase Total Protein Albumin Hep A IgM Ab Confirm Negative Hepatitis A Ab Total Positive H Hep Bs Antigen Negative Hep Bs Antibody Non reactive Hep B Core Total Ab Negative HSV I DNA Quant (PCR) Negative HSV II DNA Quant (PCR) Negative 06/23/17 06/23/17 06/24/17 17:14 21:21 05:40 WBC RBC Hgb Hct MCV MCH MCHC RDW Plt Count MPV PT with INR INR PTT (Actin FS) Sodium Potassium Chloride Carbon Dioxide Anion Gap BUN Creatinine Creat Clearance w eGFR POC Glucometer [phone] 299.48920 Random Glucose Calcium Iron TIBC Iron Saturation Total Bilirubin AST ALT Alkaline Phosphatase Total Protein Albumin Hep A IgM Ab Confirm Hepatitis A Ab Total Hep Bs Antigen Hep Bs Antibody Hep B Core Total Ab HSV I DNA Quant (PCR) HSV II DNA Quant (PCR) 06/24/17 06/24/17 06/24/17 05:50 05:50 05:50 WBC 7.3 D RBC 3.90 Hgb 11.9 Hct 35.6 MCV 91.3 MCH 30.6 MCHC 33.5 RDW 14.9 Plt Count 230 MPV 10.5 PT with INR 40.20 H INR 3.56 H PTT (Actin FS) Sodium 139 Potassium 3.9 Chloride 103 Carbon Dioxide 23 Anion Gap 13 BUN 25 H Creatinine 1.2 H Creat Clearance w eGFR 45.09 POC Glucometer Random Glucose 285 H Calcium 8.5 Iron TIBC Iron Saturation Total Bilirubin 0.3 AST 10 L ALT 23 Alkaline Phosphatase 56 Total Protein 6.5 Albumin 3.0 L Hep A IgM Ab Confirm Hepatitis A Ab Total Hep Bs Antigen Hep Bs Antibody Hep B Core Total Ab HSV I DNA Quant (PCR) HSV II DNA Quant (PCR) 06/24/17 06/24/17 06/24/17 06:08 11:31 21:45 WBC RBC Hgb Hct MCV MCH MCHC RDW Plt Count MPV PT with INR INR PTT (Actin FS) 40.6 H D Sodium Potassium Chloride Carbon Dioxide Anion Gap BUN Creatinine Creat Clearance w eGFR POC Glucometer [phone] Random Glucose Calcium Iron TIBC Iron Saturation Total Bilirubin AST ALT Alkaline Phosphatase Total Protein Albumin Hep A IgM Ab Confirm Hepatitis A Ab Total Hep Bs Antigen Hep Bs Antibody Hep B Core Total Ab HSV I DNA Quant (PCR) HSV II DNA Quant (PCR) Generic Name Dose Route Start Last Admin Trade Name Freq PRN Reason Stop Dose Admin Albuterol Sulfate 1 amp 06/25/17 08:00 Ventolin 0.083% Nebulizer Soln - NEB RQID [facility] Artificial Tears 1 drop 06/24/17 22:00 06/24/17 21:53 Artificial Tears OD 1 drop QID [facility] Administration Bupropion HCl 300 mg 06/25/17 10:00 Wellbutrin Xl - PO DAILY [facility] Carbidopa/Levodopa 1 each 06/24/17 22:00 06/24/17 22:54 Sinemet 25/100 - PO 1 each TID [facility] Administration Citalopram Hydrobromide 10 mg 06/25/17 10:00 Celexa - PO DAILY [facility] Digoxin 0.25 mg 06/25/17 10:00 Lanoxin - PO DAILY [facility] Diphenhydramine HCl 50 mg 06/24/17 21:31 06/24/17 21:52 Benadryl - PO 50 mg Q6H PRN Administration FOR ITCHING Epinephrine 0.3 mg 06/24/17 21:31 Epipen 0.3mg - IM PRN PRN WHEEZING Famotidine/Sodium Chloride 20 mg in 50 mls @ 144 mls/hr 06/24/17 22:00 21:52 Pepcid 20 Mg Premixed Ivpb - IVPB 144 mls/hr BID [facility] Administration Insulin Aspart 1 vial 06/24/17 22:00 06/24/17 21:53 Novolog Vial Sliding Scale - SQ 8 units ACHS [facility] Administration Protocol Insulin Detemir 25 units 06/25/17 00:03 Levemir Vial SQ BID@0700,2200 [facility] Methylprednisolone Sodium Succinate 60 mg 06/25/17 00:00 Solu-Medrol - IVPUSH Q8H [facility] Pramipexole Dihydrochloride 1.5 mg 06/24/17 22:00 06/24/17 22:54 Mirapex - PO 1.5 mg HS [facility]IS Administration Pregabalin 25 mg 06/24/17 22:00 06/24/17 21:53 Lyrica - PO 25 mg BID [facility]IS Administration Ranolazine 500 mg 06/24/17 22:00 06/24/17 21:52 Ranexa - PO 500 mg BID [facility] Administration Torsemide 40 mg 06/25/17 10:00 Demadex - PO DAILY [facility] Triamcinolone Acetonide 1 applic 06/24/17 22:00 06/24/17 21:53 Aristocort 0.1% Cream - TP 1 applic BID [facility] Administration Verapamil HCl 240 mg 06/25/17 10:00 Calan Sr - PO DAILY [facility] Warfarin Sodium 9 mg 06/25/17 18:00 Coumadin - PO 1800 [facility] plan; levemir dose to 25 units bid bgm novolog scale doses iv steroid and antihistamines
[2017-06-25] MEDS: methylPREDNISolone NA SUCC 40 MG/1 ML VIAL IVPUSH SCH ×3 (00:11→16:36)
[2017-06-25 06:20] LABS: BASO % 0.2 % (0-2.0); HEMATOCRIT 34.1 % (32.4-45.2); HEMOGLOBIN 11.6 GM/dL (10.7-15.3); LYMPH % 6.7 % (8-40); MCH 30.7 pg (25.7-33.7); MCHC 33.9 g/dl (32.0-36.0); MEAN CELL VOLUME 90.6 fl (80-96); MEAN PLT VOLUME 10.6 fl (7.5-11.1); MONO % 5.2 % (3.8-10.2); NEUT % 87.9 % (42.8-82.8); PLATELET COUNT 264 K/MM3 (134-434); RBC 3.77 M/mm3 (3.60-5.2); WHITE BLOOD COUNT 10.3 K/mm3 (4.0-10.0)
[2017-06-25] MEDS: CARBIDOPA/LEVODOPA 25/100 TABLET (FP) PO SCH ×3 (06:31→22:01)
[2017-06-25] MEDS: diphenhydrAMINE HCL 25 MG CAPSULE (FP) PO PRN ×2 (06:31→22:02)
[2017-06-25] MEDS: INSULIN DETEMIR 100 UNITS/ML MDV SQ SCH ×2 (06:33→21:36)
[2017-06-25] MEDS: INSULIN SLIDING SCALE (NOVOLOG) 1 VIAL SQ SCH ×4 (06:34→22:28)
[2017-06-25 06:44] LABS: INR 3.41 (0.82-1.09); PROTHROMBIN TIME (PATIENT) 38.5 SEC (9.98-11.88)
[2017-06-25 06:51] LABS: ANION GAP 7 (8-16); BILIRUBIN,TOTAL 0.1 mg/dL (0.2-1.0); BLOOD UREA NITROGEN 33 mg/dL (7-18); CALCIUM 8.4 mg/dL (8.5-10.1); CHLORIDE 105 mmol/L (98-107); CO2 26 mmol/L (21-32); CREATININE 1.1 mg/dL (0.55-1.02); GLUCOSE,RANDOM 201 mg/dL (74-106); POTASSIUM 3.7 mmol/L (3.5-5.1); SGOT/AST 12 U/L (15-37); SGPT/ALT 31 U/L (12-78); SODIUM 138 mmol/L (136-145); TOT PROT 6.4 g/dl (6.4-8.2)
[2017-06-25 07:03] LABS: ALK PHOS 66 U/L (45-117)
[2017-06-25] MEDS: ALBUTEROL SO4 0.083% IH SOL 2.5 MG/3 ML VIAL.NEB. NEB SCH ×4 (07:30→20:54)
--- NOTE | 2017-06-25 08:49 | PN ---
Progress Note, Physician History of Present Illness: FEELS BETTER STILL WITH ITCHING RASH SUBSIDING - Current Medication List Current Medications: Active Medications Albuterol Sulfate (Ventolin 0.083% Nebulizer Soln -) 1 amp NEB RQID [facility] Last Admin: 06/25/17 07:30 Dose: 1 amp Artificial Tears (Artificial Tears) 1 drop OD QID [facility] Last Admin: 06/24/17 21:53 Dose: 1 drop Bupropion HCl (Wellbutrin Xl -) 300 mg PO DAILY [facility] Carbidopa/Levodopa (Sinemet 25/100 -) 1 each PO TID [facility] Last Admin: 06/25/17 06:31 Dose: 1 each Citalopram Hydrobromide (Celexa -) 10 mg PO DAILY [facility] Digoxin (Lanoxin -) 0.25 mg PO DAILY [facility] Diphenhydramine HCl (Benadryl -) 50 mg PO Q6H PRN PRN Reason: FOR ITCHING Last Admin: 06/25/17 06:31 Dose: 50 mg Epinephrine (Epipen 0.3mg -) 0.3 mg IM PRN PRN PRN Reason: WHEEZING Famotidine/Sodium Chloride (Pepcid 20 Mg Premixed Ivpb -) 20 mg in 50 mls @ 144 mls/hr IVPB BID [facility] Last Admin: 06/24/17 21:52 Dose: 144 mls/hr Insulin Aspart (Novolog Vial Sliding Scale -) 1 vial SQ ACHS [facility] PRN Reason: Protocol Last Admin: 06/25/17 06:34 Dose: 4 units Insulin Detemir (Levemir Vial) 25 units SQ BID@0700,2200 [facility] Last Admin: 06/25/17 06:33 Dose: 25 units Methylprednisolone Sodium Succinate (Solu-Medrol -) 60 mg IVPUSH Q8H [facility] Last Admin: 06/25/17 00:11 Dose: 60 mg Pramipexole Dihydrochloride (Mirapex -) 1.5 mg PO HS [facility] Last Admin: 06/24/17 22:54 Dose: 1.5 mg Pregabalin (Lyrica -) 25 mg PO BID [facility] Last Admin: 06/24/17 21:53 Dose: 25 mg Ranolazine (Ranexa -) 500 mg PO BID [facility] Last Admin: 06/24/17 21:52 Dose: 500 mg Torsemide (Demadex -) 40 mg PO DAILY [facility] Triamcinolone Acetonide (Aristocort 0.1% Cream -) 1 applic TP BID [facility] Last Admin: 06/24/17 21:53 Dose: 1 applic Verapamil HCl (Calan Sr -) 240 mg PO DAILY [facility] Warfarin Sodium (Coumadin -) 9 mg PO 1800 [facility] - Objective Vital Signs: Vital Signs Temperature 97.6 F 06/25/17 02:00 Pulse Rate 56 L 06/25/17 02:00 Respiratory Rate 16 06/25/17 02:00 Blood Pressure 139/64 06/25/17 02:00 O2 Sat by Pulse Oximetry (%) 95 06/24/17 20:16 Cardiovascular: Yes: S1, S2 Respiratory: Yes: Rhonchi, Wheezes Gastrointestinal: Yes: Normal Bowel Sounds, Soft. No: Tenderness Labs: CBC, BMP 06/25/17 05:20 06/25/17 05:20 INR, PTT INR 3.41 (0.82-1.09) H 06/25/17 05:20 Problem List - Problems (1) Anaphylaxis Assessment/Plan: IV STEROIDS TAPER NEBS BENADRYL Code(s): T78.2XXA - ANAPHYLACTIC SHOCK, UNSPECIFIED, INITIAL ENCOUNTER (2) Asthma Assessment/Plan: ON STEROIDS NEBS PULM Code(s): J45.909 - UNSPECIFIED ASTHMA, UNCOMPLICATED (3) Urticaria Assessment/Plan: ABOVE Code(s): L50.9 - URTICARIA, UNSPECIFIED (4) COPD (chronic obstructive pulmonary disease) Assessment/Plan: ABOVE Code(s): J44.9 - CHRONIC OBSTRUCTIVE PULMONARY DISEASE, UNSPECIFIED Qualifiers: COPD type: COPD with acute exacerbation Qualified Code(s): J44.1 - Chronic obstructive pulmonary disease with (acute) exacerbation (5) Diabetes Assessment/Plan: BGM SS ENDO ON CASE Code(s): E11.9 - TYPE 2 DIABETES MELLITUS WITHOUT COMPLICATIONS Qualifiers: Diabetes mellitus type: type 2 Diabetes mellitus complication status: with neurologic complications
[2017-06-25] MEDS ORDERED: PT OWN MED DRAWER 7, Y5N ONE ×2 (09:49→15:56)
--- NOTE | 2017-06-25 09:50 | PN ---
Progress Note, Physician History of Present Illness: PULMONARY ALERT,FEELING BETTER,C/O COUGH,MILD CONGESTION,+ GENERALIZED PRURITIS,RASH IMPROVING,FACIAL SWELLING IMPROVED - Current Medication List Current Medications: Active Medications Albuterol Sulfate (Ventolin 0.083% Nebulizer Soln -) 1 amp NEB RQID [facility] Last Admin: 06/25/17 07:30 Dose: 1 amp Artificial Tears (Artificial Tears) 1 drop OD QID [facility] Last Admin: 06/24/17 21:53 Dose: 1 drop Bupropion HCl (Wellbutrin Xl -) 300 mg PO DAILY [facility] Carbidopa/Levodopa (Sinemet 25/100 -) 1 each PO TID [facility] Last Admin: 06/25/17 06:31 Dose: 1 each Citalopram Hydrobromide (Celexa -) 10 mg PO DAILY [facility] Digoxin (Lanoxin -) 0.25 mg PO DAILY [facility] Diphenhydramine HCl (Benadryl -) 50 mg PO Q6H PRN PRN Reason: FOR ITCHING Last Admin: 06/25/17 06:31 Dose: 50 mg Epinephrine (Epipen 0.3mg -) 0.3 mg IM PRN PRN PRN Reason: WHEEZING Famotidine/Sodium Chloride (Pepcid 20 Mg Premixed Ivpb -) 20 mg in 50 mls @ 144 mls/hr IVPB BID [facility] Last Admin: 06/24/17 21:52 Dose: 144 mls/hr Insulin Aspart (Novolog Vial Sliding Scale -) 1 vial SQ ACHS [facility] PRN Reason: Protocol Last Admin: 06/25/17 06:34 Dose: 4 units Insulin Detemir (Levemir Vial) 25 units SQ BID@0700,2200 [facility] Last Admin: 06/25/17 06:33 Dose: 25 units Methylprednisolone Sodium Succinate (Solu-Medrol -) 60 mg IVPUSH Q8H [facility] Last Admin: 06/25/17 08:54 Dose: 60 mg Pramipexole Dihydrochloride (Mirapex -) 1.5 mg PO HS [facility] Last Admin: 06/24/17 22:54 Dose: 1.5 mg Pregabalin (Lyrica -) 25 mg PO BID [facility] Last Admin: 06/24/17 21:53 Dose: 25 mg Ranolazine (Ranexa -) 500 mg PO BID [facility] Last Admin: 06/24/17 21:52 Dose: 500 mg Torsemide (Demadex -) 40 mg PO DAILY [facility] Triamcinolone Acetonide (Aristocort 0.1% Cream -) 1 applic TP BID [facility] Last Admin: 06/24/17 21:53 Dose: 1 applic Verapamil HCl (Calan Sr -) 240 mg PO DAILY [facility] Warfarin Sodium (Coumadin -) 9 mg PO 1800 [facility] - Objective Vital Signs: Vital Signs Temperature 97.2 F L 06/25/17 09:28 Pulse Rate 58 L 06/25/17 09:28 Respiratory Rate 20 06/25/17 09:28 Blood Pressure 105/81 06/25/17 09:28 O2 Sat by Pulse Oximetry (%) 95 06/24/17 20:16 Constitutional: Yes: Well Nourished, Calm Eyes: Yes: WNL HENT: Yes: WNL Neck: Yes: WNL Cardiovascular: Yes: Pulse Irregular, S1, S2 Respiratory: Yes: Wheezes (SCATTERED ABDIEL WHEEZES) Gastrointestinal: Yes: Normal Bowel Sounds, Soft Extremities: Yes: WNL Edema: No Labs: CBC, BMP 06/25/17 05:20 06/25/17 05:20 INR, PTT INR 3.41 (0.82-1.09) H 06/25/17 05:20 Problem List - Problems (1) Erythema multiforme minor Code(s): L51.9 - ERYTHEMA MULTIFORME, UNSPECIFIED (2) Afib Code(s): I48.91 - UNSPECIFIED ATRIAL FIBRILLATION Qualifiers: Atrial fibrillation type: paroxysmal Qualified Code(s): I48.0 - Paroxysmal atrial fibrillation (3) CAD (coronary artery disease) Code(s): I25.10 - ATHSCL HEART DISEASE OF [place] CORONARY ARTERY W/O ANG PCTRS (4) CHF (congestive heart failure) Code(s): I50.9 - HEART FAILURE, UNSPECIFIED (5) COPD (chronic obstructive pulmonary disease) Code(s): J44.9 - CHRONIC OBSTRUCTIVE PULMONARY DISEASE, UNSPECIFIED Qualifiers: COPD type: COPD with acute exacerbation Qualified Code(s): J44.1 - Chronic obstructive pulmonary disease with (acute) exacerbation (6) Diabetes Code(s): E11.9 - TYPE 2 DIABETES MELLITUS WITHOUT COMPLICATIONS Qualifiers: Diabetes mellitus type: type 2 Diabetes mellitus complication status: with neurologic complications (8) IDDM (insulin dependent diabetes mellitus) Code(s): E11.9 - TYPE 2 DIABETES MELLITUS WITHOUT COMPLICATIONS; Z79.4 - JAIL (CURRENT) USE OF 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 Assessment/Plan IMP ALLERGIC REACTION FACIAL SWELLING,GENERALIZED RASH IMPROVING ASHD S/P CABG,S/P STENTS S/P MVR AFIB ASTHMA/COPD ON O2 OSAS ON CPAP SLE FIBROMYALGIA H/O CVA PLAN CONTINUE IV STEROIDS O2 ANTIHISTAMINES INHALED BRONCHODILATORS RHEUMATOLOGY EVALUATION PENDING BIPAP AT NIGHT GLYCEMIC CONTROL CHEST X-RAY DR IVERSON Problem List - Problems (1) Erythema multiforme minor Code(s): L51.9 - ERYTHEMA MULTIFORME, UNSPECIFIED (2) Afib Code(s): I48.91 - UNSPECIFIED ATRIAL FIBRILLATION Qualifiers: Atrial fibrillation type: paroxysmal Qualified Code(s): I48.0 - Paroxysmal atrial fibrillation (3) CAD (coronary artery disease) Code(s): I25.10 - ATHSCL HEART DISEASE OF [place] CORONARY ARTERY W/O ANG PCTRS (4) CHF (congestive heart failure) Code(s): I50.9 - HEART FAILURE, UNSPECIFIED (5) COPD (chronic obstructive pulmonary disease) Code(s): J44.9 - CHRONIC OBSTRUCTIVE PULMONARY DISEASE, UNSPECIFIED Qualifiers: COPD type: COPD with acute exacerbation Qualified Code(s): J44.1 - Chronic obstructive pulmonary disease with (acute) exacerbation (6) Diabetes Code(s): E11.9 - TYPE 2 DIABETES MELLITUS WITHOUT COMPLICATIONS Qualifiers: Diabetes mellitus type: type 2 Diabetes mellitus complication status: with neurologic complications (8) IDDM (insulin dependent diabetes mellitus) Code(s): E11.9 - TYPE 2 DIABETES MELLITUS WITHOUT COMPLICATIONS; Z79.4 - PARTS ROOM CLERK (CURRENT) USE OF 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
[2017-06-25] MEDS: RANOLAZINE E.R. 500 MG TABLET (FP) PO SCH ×2 (09:51→22:01)
[2017-06-25] MEDS: DIGOXIN 0.25 MG TABLET (FP) PO SCH (09:51)
[2017-06-25] MEDS: PREGABALIN 25 MG CAPSULE PO SCH ×2 (09:51→22:01)
[2017-06-25] MEDS: TORSEMIDE 20 MG TABLET (FP) PO SCH (09:52)
[2017-06-25] MEDS: CITALOPRAM HYDROBROMIDE 10 MG TABLET (FP) PO SCH (09:52)
[2017-06-25] MEDS: VERAPAMIL HCL 240 MG E.R. TABLET (FP) PO SCH (09:52)
[2017-06-25] MEDS: TRIAMCINOLONE ACET 0.1% CREAM 15 GM TUBE TP SCH ×2 (09:53→22:01)
[2017-06-25] MEDS: ARTIFICIAL TEARS (POLYVINYL ALCOHOL 1.4%) OPTH DROPS OD SCH ×4 (09:53→22:02)
[2017-06-25] MEDS: FAMOTIDINE 20 MG/50 ML IVPB 20 MG/50 ML MG IVPB SCH ×2 (09:54→22:01)
[2017-06-25] MEDS ORDERED: hydrOXYzine HCL 25 MG TABLET (FP) PO PRN (09:54)
--- NOTE | 2017-06-25 15:30 | CONS ---
DATE OF CONSULTATION: DATE OF DICTATION: 06/22/2017 INFECTIOUS DISEASE CONSULTATION HISTORY OF PRESENT ILLNESS: A 66-year-old woman, past medical history of lupus, fibromyalgia (not on steroids), history of COPD on home oxygen, CABG and mitral valve replacement in 2006, who on Sunday apparently reports eating some food. She ate an eggroll that may have been contaminated with shellfish. She has a history of rash to shellfish. On Sunday she noted she had a rash, she started having a fever. Maximum temperature was 100. She started having some nausea. This continued over the course of the next several days. She became dizzy. She reports having had intermittent fever. She had 1 or 2 episodes of vomiting. This skin lesion became larger. She reports during the course of the week that she was seen for routine visits on Sunday or Sunday, she saw her piece jobber as well she saw her neurologist. Yesterday she apparently saw an drying frame operator who thought she had idiopathic urticaria and gave her cetirizine. She spoke with her PMD who advised her to come to the ER, and she was seen in the ER. In the emergency room she reports she generally does not feel well. She has been drinking a lot of water. She reports she has dysuria and diminished urine outtake. She does not have any sores in her mouth. She has no difficulty swallowing. She has chronic trouble with expectoration. She describes a nasal perforation, that she was told she had by ENT, and told that she needed to have repaired. There is no recent travel. Her nephew lives with her and he is well. She has had no sick contacts, and she has aids at home. She was last admitted to [facility] in March and reports that at the time of discharge that she went to [place]. Her PMD is . At baseline she uses oxygen at home and she uses CPAP at night. PAST MEDICAL HISTORY: Extensive. Notable for history of hypertension, hyperlipidemia, Parkinson disease, lupus, was on prednisone but not taking, fibromyalgia, diabetes, heart failure, COPD on 2 L at home, sleep apnea on CPAP, atrial fibrillation on Coumadin, anemia, asthma, glaucoma, CVA, spinal stenosis. She has a history of coronary artery disease. SURGICAL HISTORY: She has had a CABG and a mitral valve replacement in 2006, as well she had 2 stents. There is no recent travel. SOCIAL HISTORY: She lives at home. She has 2 aids. She stopped smoking 10 years ago. There is no history of any alcohol or substance use. Her nephew has been living with her. He is well. There are no sick contacts. Her father had a history of cardiac issues. ALLERGIES: LACTOSE, BETA BLOCKERS, IODINE, SHELLFISH. MEDICATIONS AT HOME: Include albuterol inhaler, Wellbutrin, Sinemet, carbidopa, vitamin D, Celexa, digoxin, iron, insulin, Mirapex, prednisone which she does not take, Lyrica, Ranexa, Topamax, Demadex, and Calan SR and Coumadin. REVIEW OF SYSTEMS: She notes the intermittent fever. She has been feeling very weak and tired. She has no oral lesions. She does note that she gets frequent cold blisters. She has been having discomfort urinating, and she has had this progressive rash over the course of the week. PHYSICAL EXAMINATION: General: She is afebrile. Vital signs: Temperature is 98, pulse 67, blood pressure 121/64, respiratory rate 18, O2 saturation is 96% on 2 L. HEENT: Normocephalic. Her eyes are anicteric. She has no conjunctival injection. She has no oral lesions. Neck: Supple. Lungs: Clear to auscultation. Heart: Regular rate and rhythm. Abdomen: Soft, nontender. Extremities: She has trace edema. Skin: Notable for, she has large targetoid lesions on her face, on both her arms, her legs extending up to her thighs. She really does not have any lesions on her abdomen or trunk. There are no lesions in her mouth. LABORATORY: Notable for a white count on admission of 19.7, today 15.8; hemoglobin 12.7; platelets of 246; sedimentation rate is 15. Her BUN and creatinine are 26 and 1.1. Liver function tests are normal. Her CRP is 13. Her glucose is 256. Urinalysis is 2+ leukocytes with 29 white cells. Chest x-ray is negative for infiltrates. Blood culture and urine cultures are pending. IMPRESSION: In summary, this is a 66-year-old woman admitted with skin rash. I agree that clinical is consistent with erythema multiforme. No evidence of oral or eye lesions. Most commonly it is a viral trigger, herpes simplex virus most common, Juan Manuel-Raines virus and cytomegalovirus virus possible too, but her LFTs are normal and making this less likely, and she has no pharyngitis. Nothing to suggest pneumonia. Mycoplasma again most common. She has not been on any new antibiotics. She has not had any sick contacts. She complains as well of dysuria and has pyuria, so she may as well have a possible urinary tract infection. I would agree with dermatology evaluation. Continue prednisone. Follow up blood cultures. Continue ceftriaxone for possible urinary tract infection. 2 . History of mitral valve replacement, on Coumadin. 3. History of lupus, fibromyalgia. Further recommendations to follow. PRIETO FLEMING M.D. [id number]
--- NOTE | 2017-06-25 15:42 | PN ---
Physical Exam: SUBJECTIVE: Patient seen and examined in ICU. No acute events overnight. Patient is complaining of diffuse itching, reports that rash has improved from last night. Breathing easily. OBJECTIVE: Vital Signs Period Temp Pulse Resp BP Sys/Wise Pulse Ox Last 24 Hr 97.2 F-98.2 F 55-64 16-20 139-194/47-84 95 GENERAL: The patient is awake, alert, and fully oriented, in no acute distress. HEAD: Normal with no signs of trauma. EYES: PERRL, extraocular movements intact, sclera anicteric, conjunctiva clear. No ptosis. ENT: Ears normal, nares patent, oropharynx clear without exudates, moist mucous membranes. NECK: Trachea midline, full range of motion, supple. LUNGS: Breath sounds equal, clear to auscultation bilaterally, no wheezes, no crackles, no accessory muscle use. HEART: Regular rate and rhythm, S1, S2 without murmur, rub or gallop. EXTREMITIES: 2+ pulses, warm, well-perfused, no edema. NEUROLOGICAL: Cranial nerves II through XII grossly intact. Normal speech, gait not observed. SKIN: Warm, dry, normal turgor, no rash observed Laboratory Results - last 24 hr 06/23/17 06/24/17 06/24/17 21:21 17:01 21:45 WBC RBC Hgb Hct MCV MCH MCHC RDW Plt Count MPV Neutrophils % Lymphocytes % Monocytes % Eosinophils % Basophils % PT with INR INR PTT (Actin FS) Sodium Potassium Chloride Carbon Dioxide Anion Gap BUN Creatinine Creat Clearance w eGFR POC Glucometer [phone] Random Glucose Calcium Total Bilirubin AST ALT Alkaline Phosphatase Total Protein Albumin Digoxin 06/25/17 06/25/17 06/25/17 05:20 05:20 05:20 WBC 10.3 H D RBC 3.77 Hgb 11.6 Hct 34.1 MCV 90.6 MCH 30.7 MCHC 33.9 RDW 15.0 Plt Count 264 MPV 10.6 Neutrophils % 87.9 H Lymphocytes % 6.7 L D Monocytes % 5.2 D Eosinophils % 0.0 D Basophils % 0.2 PT with INR 38.50 H INR 3.41 H PTT (Actin FS) 35.1 H Sodium Potassium Chloride Carbon Dioxide Anion Gap BUN Creatinine Creat Clearance w eGFR POC Glucometer Random Glucose Calcium Total Bilirubin AST ALT Alkaline Phosphatase Total Protein Albumin Digoxin 06/25/17 06/25/17 05:20 06:33 WBC RBC Hgb Hct MCV MCH MCHC RDW Plt Count MPV Neutrophils % Lymphocytes % Monocytes % Eosinophils % Basophils % PT with INR INR PTT (Actin FS) Sodium 138 Potassium 3.7 Chloride 105 Carbon Dioxide 26 Anion Gap 7 L BUN 33 H Creatinine 1.1 H Creat Clearance w eGFR 49.85 POC Glucometer [phone] Random Glucose 201 H Calcium 8.4 L Total Bilirubin 0.1 L D AST 12 L ALT 31 Alkaline Phosphatase 66 Total Protein 6.4 Albumin 3.0 L Digoxin 0.9833 Active Medications Generic Name Dose Route Start Last Admin Trade Name Freq PRN Reason Stop Dose Admin Albuterol Sulfate 1 amp 06/25/17 08:00 06/25/17 11:31 Ventolin 0.083% Nebulizer Soln - NEB 1 amp RQID CHRIS Administration Artificial Tears 1 drop 06/24/17 22:00 06/25/17 14:01 Artificial Tears OD 1 drop QID CHRIS Administration Bupropion HCl 300 mg 06/25/17 10:00 06/25/17 09:52 Wellbutrin Xl - PO 300 mg DAILY CHRIS Administration Carbidopa/Levodopa 1 each 06/24/17 22:00 06/25/17 14:01 Sinemet 25/100 - PO 1 each TID CHRIS Administration Citalopram Hydrobromide 10 mg 06/25/17 10:00 06/25/17 09:52 Celexa - PO 10 mg DAILY CHRIS Administration Digoxin 0.25 mg 06/25/17 10:00 06/25/17 09:51 Lanoxin - PO 0.25 mg DAILY CHRIS Administration Diphenhydramine HCl 50 mg 06/25/17 12:20 Benadryl - PO Q8H PRN FOR ITCHING Epinephrine 0.3 mg 06/24/17 21:31 Epipen 0.3mg - IM PRN PRN WHEEZING Famotidine/Sodium Chloride 20 mg in 50 mls @ 144 mls/hr 06/24/17 22:00 09:54 Pepcid 20 Mg Premixed Ivpb - IVPB 144 mls/hr BID CHRIS Administration Insulin Aspart 1 vial 06/24/17 22:00 06/25/17 12:43 Novolog Vial Sliding Scale - SQ 8 units ACHS CHRIS Administration Protocol Insulin Detemir 25 units 06/25/17 07:00 06/25/17 06:33 Levemir Vial SQ 25 units BID@0700,2200 CHRIS Administration Methylprednisolone Sodium Succinate 60 mg 06/25/17 00:00 06/25/17 08:54 Solu-Medrol - IVPUSH 60 mg Q8H CHRIS Administration Pramipexole Dihydrochloride 1.5 mg 06/24/17 22:00 06/24/17 22:54 Mirapex - PO 1.5 mg HS CHRIS Administration Pregabalin 25 mg 06/24/17 22:00 06/25/17 09:51 Lyrica - PO 25 mg BID CHRIS Administration Ranolazine 500 mg 06/24/17 22:00 06/25/17 09:51 Ranexa - PO 500 mg BID CHRIS Administration Torsemide 40 mg 06/25/17 10:00 06/25/17 09:52 Demadex - PO 40 mg DAILY CHRIS Administration Triamcinolone Acetonide 1 applic 06/24/17 22:00 06/25/17 09:53 Aristocort 0.1% Cream - TP 1 applic BID CHRIS Administration Verapamil HCl 240 mg 06/25/17 10:00 06/25/17 09:52 Calan Sr - PO 240 mg DAILY CHRIS Administration Warfarin Sodium 9 mg 06/25/17 18:00 Coumadin - PO 1800 [facility] ASSESSMENT/PLAN: Patient is 66F with history of HTN, HLD, Lupus, DM, CHF, COPD, stents, afib and MVR (on coumadin) here with allergic reaction after exposure to shellfish. Concern earlier for EM, but dermatology reports more likely to be allergic reaction. Angioedema resolved. Respiratory #Allergic reaction with angioedema - Benadryl, epinephrine PRN - Famotidine BID - Methylprednisone - Albuterol Cardiovascular #Afib with CHF - Stable - Digoxin, warfain, torsemide, verapamil #Chronic chest pain - Ranexa Endo #DM - Levemir 25u + SS - Blood sugars stable Psych #Anxiety and depression - Wellbutrin, citalopram #Fibromyalgia - Pregabalone FEN/GI: -Tolerating PO -DM Diet Dispo: - Transfer to med/surg Visit type - Emergency Visit Emergency Visit: Yes ED Registration Date: 06/24/17 Care time: The patient presented to the Emergency Department on the above date and was hospitalized for further evaluation of their emergent condition. - New Patient This patient is new to me today: Yes Date on this admission: 06/25/17 - Critical Care Critical Care patient: Yes Total Critical Care Time (in minutes): 35 Critical Care Statement: The care of this patient involved high complexity decision making to prevent further life threatening deterioration of the patient 's condition and/or to evaluate & treat vital organ system(s) failure or risk of failure.
[2017-06-25] MEDS ORDERED: POTASSIUM CHLORIDE TABS 20 MEQ TABLET.ER (FP) PO ONE (15:44)
--- NOTE | 2017-06-25 15:46 | PN ---
Progress Note (short form) - Note Progress Note: CC: allergic reaction s: no sob palps dizzy; chronic msk cp o: Current Medications Albuterol Sulfate (Ventolin 0.083% Nebulizer Soln -) 1 amp NEB RQID [facility] Last Admin: 06/25/17 11:31 Dose: 1 amp Artificial Tears (Artificial Tears) 1 drop OD QID [facility] Last Admin: 06/25/17 14:01 Dose: 1 drop Bupropion HCl (Wellbutrin Xl -) 300 mg PO DAILY [facility] Last Admin: 06/25/17 09:52 Dose: 300 mg Carbidopa/Levodopa (Sinemet 25/100 -) 1 each PO TID [facility] Last Admin: 06/25/17 14:01 Dose: 1 each Citalopram Hydrobromide (Celexa -) 10 mg PO DAILY [facility] Last Admin: 06/25/17 09:52 Dose: 10 mg Digoxin (Lanoxin -) 0.25 mg PO DAILY [facility] Last Admin: 06/25/17 09:51 Dose: 0.25 mg Diphenhydramine HCl (Benadryl -) 50 mg PO Q8H PRN PRN Reason: FOR ITCHING Epinephrine (Epipen 0.3mg -) 0.3 mg IM PRN PRN PRN Reason: WHEEZING Famotidine/Sodium Chloride (Pepcid 20 Mg Premixed Ivpb -) 20 mg in 50 mls @ 144 mls/hr IVPB BID [facility] Last Admin: 06/25/17 09:54 Dose: 144 mls/hr Insulin Aspart (Novolog Vial Sliding Scale -) 1 vial SQ ACHS [facility] PRN Reason: Protocol Last Admin: 06/25/17 12:43 Dose: 8 units Insulin Detemir (Levemir Vial) 25 units SQ BID@0700,2200 [facility] Last Admin: 06/25/17 06:33 Dose: 25 units Methylprednisolone Sodium Succinate (Solu-Medrol -) 60 mg IVPUSH Q8H [facility] Last Admin: 06/25/17 08:54 Dose: 60 mg Potassium Chloride (K-Dur -) 20 meq PO ONCE ONE Stop: 06/25/17 15:45 Pramipexole Dihydrochloride (Mirapex -) 1.5 mg PO HS [facility] Last Admin: 06/24/17 22:54 Dose: 1.5 mg Pregabalin (Lyrica -) 25 mg PO BID [facility] Last Admin: 06/25/17 09:51 Dose: 25 mg Ranolazine (Ranexa -) 500 mg PO BID [facility] Last Admin: 06/25/17 09:51 Dose: 500 mg Torsemide (Demadex -) 40 mg PO DAILY [facility] Last Admin: 06/25/17 09:52 Dose: 40 mg Triamcinolone Acetonide (Aristocort 0.1% Cream -) 1 applic TP BID [facility] Last Admin: 06/25/17 09:53 Dose: 1 applic Verapamil HCl (Calan Sr -) 240 mg PO DAILY [facility] Last Admin: 06/25/17 09:52 Dose: 240 mg Warfarin Sodium (Coumadin -) 9 mg PO 1800 [facility] Vital Signs - 24 hr 06/24/17 06/24/17 06/24/17 18:00 20:00 20:16 Temperature Pulse Rate 55 L 60 Respiratory 18 18 Rate Blood Pressure 166/63 142/71 O2 Sat by Pulse 95 Oximetry (%) 06/24/17 06/25/17 06/25/17 22:00 00:00 02:00 Temperature 98.2 F 97.4 F L Pulse Rate 64 58 L 56 L Respiratory 18 18 20 Rate Blood Pressure 140/74 194/84 139/64 O2 Sat by Pulse Oximetry (%) 06/25/17 06/25/17 09:28 09:51 Temperature 97.2 F L Pulse Rate 61 60 Respiratory 20 Rate Blood Pressure 142/47 O2 Sat by Pulse Oximetry (%) Intake & Output 06/23/17 06/24/17 06/25/17 06/26/17 07:59 07:59 07:59 07:59 Intake Total 305 003 2947 300 Balance 374 747 2931 300 Weight 214 lb 9 oz nad, anxious no jvd, neck supple rrr s1s2 no mrg ttp of sternum. ctab, nl eff abd nt pos bs, nd no le e/c/c aaox3 no jaundice diaphoresis CBC, BMP 06/25/17 05:20 06/25/17 05:20 Laboratory Tests 06/25/17 06/25/17 05:20 05:20 INR 3.41 H Digoxin 0.9833 ekg: nsr, rsr' varient. diffuse t wave flattening/inversions. (similar to priors) borderline prolonged qtc. tele: sr cxr: no acute pulmonary disease. bibasilar atelectasis vs. scar Echo 04/05: nl LV/EF; nl RV; well-seated [facility] MVR. mild mibi 12/2013: no ischemia a/p: 66 yo with h/o htn, chronic atypical cp, CAD (s/p single vessel CABG 2006 with RUSSELL to OM and ROSALINA x2 to LAD 12/2011; last cath 06/2014 showed patent RUSSELL, patent LAD stents, no sig residual dz except for 80-90% OM that is bypassed), diastolic CHF, [facility] mvr (st julia, 2006, on coumadin), pafib, antiphospholipid syndrome (on coumadin), TIA, COPD on home , FIGUEROA (on cpap at home), anemia, DM, HTN, fibromyalgia, migraines, obesity, LBP here with allergic reaction. allergic reaction - ongoing mgm't per pmd/derm/ID/pulm/critical care [facility] MVR: -also with antiphospholipid syndrome --> high risk for thrombosis of valve. on AC w/ coumadin, target INR 2.5 to 3.5. cad, s/p cabg, pci: - no anginal sx's. -no bb due to copd, on verapamil instead -not on statin due to prior intolerance -cont ranexa for possible small vessel dz symptoms -on ac, no asa diastolic chf - currently euvolemic on home torsemide regimen, con't. patient is on torsemide 40 mg/day as outpatient - daily weights, I/O's while on steroids. HTN: - reasonable control on current meds, con't to monitor pafib with h/o tia: -rare episodes in past -remains in sr here based on initial ekg and exam -continue verapamil and dig. dig level okay here. -cont ac with coumadin as mentioned above, - lyte repletion prn. copd on home O2/figueroa. - stable, pulm following.
[2017-06-25] MEDS: WARFARIN NA 3 MG TABLET PO SCH (18:37)
[2017-06-25] MEDS: PRAMIPEXOLE DIHYDROCHLORIDE 0.5 MG TABLET PO SCH (22:02)
[2017-06-25] MEDS ORDERED: INSULIN (NOVOLOG) ASPART 100 UNITS/ML 10ML VIAL ONE (22:27)
[2017-06-26] MEDS: methylPREDNISolone NA SUCC 40 MG/1 ML VIAL IVPUSH SCH ×2 (00:32→08:13)
[2017-06-26] MEDS: INSULIN DETEMIR 100 UNITS/ML MDV SQ SCH ×2 (06:08→21:06)
[2017-06-26] MEDS: CARBIDOPA/LEVODOPA 25/100 TABLET (FP) PO SCH ×3 (06:09→21:06)
[2017-06-26] MEDS: INSULIN SLIDING SCALE (NOVOLOG) 1 VIAL SQ SCH ×4 (06:09→21:26)
[2017-06-26] MEDS: diphenhydrAMINE HCL 25 MG CAPSULE (FP) PO PRN (06:46)
[2017-06-26 08:00] LABS: HEMATOCRIT 36.6 % (32.4-45.2); HEMOGLOBIN 12.2 GM/dL (10.7-15.3); MCHC 33.3 g/dl (32.0-36.0); MEAN CELL VOLUME 90.2 fl (80-96); MEAN PLT VOLUME 9.8 fl (7.5-11.1); PLATELET COUNT 272 K/MM3 (134-434); RBC 4.06 M/mm3 (3.60-5.2); RDW 14.9 % (11.6-15.6); WHITE BLOOD COUNT 11.3 K/mm3 (4.0-10.0)
[2017-06-26 08:22] LABS: INR 2.58 (0.82-1.09); PROTHROMBIN TIME (PATIENT) 29.2 SEC (9.98-11.88)
--- NOTE | 2017-06-26 08:46 | PN ---
Progress Note, Physician - Current Medication List Current Medications: Active Medications Albuterol Sulfate (Ventolin 0.083% Nebulizer Soln -) 1 amp NEB RQID [facility] Last Admin: 06/25/17 20:54 Dose: 1 amp Artificial Tears (Artificial Tears) 1 drop OD QID [facility] Last Admin: 06/25/17 22:02 Dose: 1 drop Bupropion HCl (Wellbutrin Xl -) 300 mg PO DAILY [facility] Last Admin: 06/25/17 09:52 Dose: 300 mg Carbidopa/Levodopa (Sinemet 25/100 -) 1 each PO TID [facility] Last Admin: 06/26/17 06:09 Dose: 1 each Citalopram Hydrobromide (Celexa -) 10 mg PO DAILY [facility] Last Admin: 06/25/17 09:52 Dose: 10 mg Digoxin (Lanoxin -) 0.25 mg PO DAILY [facility] Last Admin: 06/25/17 09:51 Dose: 0.25 mg Diphenhydramine HCl (Benadryl -) 50 mg PO Q8H PRN PRN Reason: FOR ITCHING Last Admin: 06/26/17 06:46 Dose: 50 mg Epinephrine (Epipen 0.3mg -) 0.3 mg IM PRN PRN PRN Reason: WHEEZING Famotidine/Sodium Chloride (Pepcid 20 Mg Premixed Ivpb -) 20 mg in 50 mls @ 144 mls/hr IVPB BID [facility] Last Admin: 06/25/17 22:01 Dose: 144 mls/hr Insulin Aspart (Novolog Vial Sliding Scale -) 1 vial SQ ACHS [facility] PRN Reason: Protocol Last Admin: 06/26/17 06:09 Dose: 4 units Insulin Detemir (Levemir Vial) 25 units SQ BID@0700,2200 [facility] Last Admin: 06/26/17 06:08 Dose: 25 units Methylprednisolone Sodium Succinate (Solu-Medrol -) 60 mg IVPUSH Q8H [facility] Last Admin: 06/26/17 08:13 Dose: 60 mg Pramipexole Dihydrochloride (Mirapex -) 1.5 mg PO HS [facility] Last Admin: 06/25/17 22:02 Dose: 1.5 mg Pregabalin (Lyrica -) 25 mg PO BID [facility] Last Admin: 06/25/17 22:01 Dose: 25 mg Ranolazine (Ranexa -) 500 mg PO BID [facility] Last Admin: 06/25/17 22:01 Dose: 500 mg Torsemide (Demadex -) 40 mg PO DAILY [facility] Last Admin: 06/25/17 09:52 Dose: 40 mg Triamcinolone Acetonide (Aristocort 0.1% Cream -) 1 applic TP BID [facility] Last Admin: 06/25/17 22:01 Dose: 1 applic Verapamil HCl (Calan Sr -) 240 mg PO DAILY [facility] Last Admin: 06/25/17 09:52 Dose: 240 mg Warfarin Sodium (Coumadin -) 9 mg PO 1800 [facility] Last Admin: 06/25/17 18:37 Dose: 9 mg - Objective Vital Signs: Vital Signs Temperature 98.1 F 06/26/17 06:38 Pulse Rate 48 L 06/26/17 06:38 Respiratory Rate 20 06/26/17 06:38 Blood Pressure 161/55 06/26/17 06:38 O2 Sat by Pulse Oximetry (%) 95 06/25/17 21:00 Cardiovascular: Yes: S1, S2 Respiratory: Yes: Regular, CTA Bilaterally Gastrointestinal: Yes: Normal Bowel Sounds, Soft Labs: CBC, BMP 06/26/17 06:00 06/25/17 05:20 INR, PTT INR 3.41 (0.82-1.09) H 06/25/17 05:20 Problem List - Problems (1) Anaphylaxis Assessment/Plan: IV STEROIDS TAPER NEBS BENADRYL Code(s): T78.2XXA - ANAPHYLACTIC SHOCK, UNSPECIFIED, INITIAL ENCOUNTER (2) Asthma Assessment/Plan: ON STEROIDS NEBS PULM Code(s): J45.909 - UNSPECIFIED ASTHMA, UNCOMPLICATED (3) Urticaria Assessment/Plan: ABOVE Code(s): L50.9 - URTICARIA, UNSPECIFIED (4) COPD (chronic obstructive pulmonary disease) Assessment/Plan: ABOVE Code(s): J44.9 - CHRONIC OBSTRUCTIVE PULMONARY DISEASE, UNSPECIFIED Qualifiers: COPD type: COPD with acute exacerbation Qualified Code(s): J44.1 - Chronic obstructive pulmonary disease with (acute) exacerbation (5) Diabetes Assessment/Plan: BGM SS ENDO ON CASE Code(s): E11.9 - TYPE 2 DIABETES MELLITUS WITHOUT COMPLICATIONS Qualifiers: Diabetes mellitus type: type 2 Diabetes mellitus complication status: with neurologic complications (6) MRSA (methicillin resistant staph aureus) culture positive Assessment/Plan: observe Code(s): Z22.322 - CARRIER OR SUSPECTED CARRIER OF METHICILLIN RESIS STAPH
[2017-06-26] MEDS: ALBUTEROL SO4 0.083% IH SOL 2.5 MG/3 ML VIAL.NEB. NEB SCH ×4 (08:50→20:55)
[2017-06-26] MEDS ORDERED: PT OWN MED DRAWER 7, Y5N ONE (09:31)
[2017-06-26] MEDS: CITALOPRAM HYDROBROMIDE 10 MG TABLET (FP) PO SCH (09:46)
[2017-06-26] MEDS: PREGABALIN 25 MG CAPSULE PO SCH ×2 (09:47→21:06)
[2017-06-26] MEDS: VERAPAMIL HCL 240 MG E.R. TABLET (FP) PO SCH (09:47)
[2017-06-26] MEDS: RANOLAZINE E.R. 500 MG TABLET (FP) PO SCH ×2 (09:47→21:06)
[2017-06-26] MEDS: TORSEMIDE 20 MG TABLET (FP) PO SCH (09:47)
[2017-06-26] MEDS: DIGOXIN 0.25 MG TABLET (FP) PO SCH (09:48)
[2017-06-26] MEDS: ARTIFICIAL TEARS (POLYVINYL ALCOHOL 1.4%) OPTH DROPS OD SCH (09:52)
[2017-06-26] MEDS: hydrOXYzine HCL 25 MG TABLET (FP) PO PRN ×2 (10:31→21:21)
[2017-06-26] MEDS ORDERED: INSULIN (NOVOLOG) ASPART 100 UNITS/ML 10ML VIAL ONE ×3 (11:18→21:26)
[2017-06-26] MEDS: FAMOTIDINE 20 MG/50 ML IVPB 20 MG/50 ML MG IVPB SCH ×2 (11:40→21:06)
[2017-06-26] MEDS: TRIAMCINOLONE ACET 0.1% CREAM 15 GM TUBE TP SCH ×2 (11:45→21:14)
--- NOTE | 2017-06-26 13:17 | PN ---
Progress Note (short form) - Note Progress Note: Breathing overall improving. Residual mild congested cough. Rash improving. Intake & Output 06/23/17 06/24/17 06/25/17 06/26/17 23:59 23:59 23:59 23:59 Intake Total 468 1400 750 375 Balance 468 1400 750 375 Weight 214 lb 9 oz 214 lb 7 oz Last Vital Signs Temp Pulse Resp BP Pulse Ox 98.1 F 50 L 20 161/55 95 06/26/17 06:38 06/26/17 09:48 06/26/17 06:38 06/26/17 06:38 06/25/17 21:00 Active Medications Albuterol Sulfate (Ventolin 0.083% Nebulizer Soln -) 1 amp NEB RQID [facility] Last Admin: 06/26/17 12:13 Dose: 1 amp Artificial Tears (Artificial Tears) 1 drop OU QID [facility] Bupropion HCl (Wellbutrin Xl -) 300 mg PO DAILY [facility] Last Admin: 06/26/17 11:40 Dose: 300 mg Carbidopa/Levodopa (Sinemet 25/100 -) 1 each PO TID [facility] Last Admin: 06/26/17 06:09 Dose: 1 each Citalopram Hydrobromide (Celexa -) 10 mg PO DAILY [facility] Last Admin: 06/26/17 09:46 Dose: 10 mg Digoxin (Lanoxin -) 0.25 mg PO DAILY [facility] Last Admin: 06/26/17 09:48 Dose: Not Given Epinephrine (Epipen 0.3mg -) 0.3 mg IM PRN PRN PRN Reason: WHEEZING Hydroxyzine HCl (Atarax -) 25 mg PO TID PRN PRN Reason: FOR ITCHING Last Admin: 06/26/17 10:31 Dose: 25 mg Famotidine/Sodium Chloride (Pepcid 20 Mg Premixed Ivpb -) 20 mg in 50 mls @ 144 mls/hr IVPB BID [facility] Last Admin: 06/26/17 11:40 Dose: 144 mls/hr Insulin Aspart (Novolog Vial Sliding Scale -) 1 vial SQ ACHS [facility] PRN Reason: Protocol Last Admin: 06/26/17 11:40 Dose: 6 units Insulin Detemir (Levemir Vial) 25 units SQ BID@0700,2200 [facility] Last Admin: 06/26/17 06:08 Dose: 25 units Methylprednisolone Sodium Succinate (Solu-Medrol -) 60 mg IVPUSH BID [facility] Pramipexole Dihydrochloride (Mirapex -) 1.5 mg PO HS [facility] Last Admin: 06/25/17 22:02 Dose: 1.5 mg Pregabalin (Lyrica -) 25 mg PO BID [facility] Last Admin: 06/26/17 09:47 Dose: 25 mg Ranolazine (Ranexa -) 500 mg PO BID [facility] Last Admin: 06/26/17 09:47 Dose: 500 mg Torsemide (Demadex -) 40 mg PO DAILY [facility] Last Admin: 06/26/17 09:47 Dose: 40 mg Triamcinolone Acetonide (Aristocort 0.1% Cream -) 1 applic TP BID [facility] Last Admin: 06/26/17 11:45 Dose: 1 applic Verapamil HCl (Calan Sr -) 240 mg PO DAILY [facility] Last Admin: 06/26/17 09:47 Dose: 240 mg Warfarin Sodium (Coumadin -) 9 mg PO 1800 [facility] Last Admin: 06/25/17 18:37 Dose: 9 mg Constitutional: Yes: NAD Eyes: Yes: WNL HENT: Yes: WNL Neck: Yes: WNL Cardiovascular: Yes: Pulse Irregular, S1, S2 Respiratory: Yes: scattered bilateral rhonchi Gastrointestinal: Yes: Normal Bowel Sounds, Soft Extremities: Yes: WNL Edema: No Labs: Laboratory Results - last 24 hr 06/21/17 06/21/17 06/25/17 23:30 23:30 16:47 WBC RBC Hgb Hct MCV MCH MCHC RDW Plt Count MPV PT with INR INR PTT (Actin FS) POC Glucometer 219.81725 EBV DNA (PCR) Negative EBV DNA Quant PCR log10 TNP HCV Quantitation Hcv not detected HCV RNA log copies/mL TNP 06/25/17 06/26/17 06/26/17 20:59 06:00 06:00 WBC 11.3 H RBC 4.06 Hgb 12.2 Hct 36.6 MCV 90.2 MCH 30.0 MCHC 33.3 RDW 14.9 Plt Count 272 MPV 9.8 PT with INR INR PTT (Actin FS) 32.6 POC Glucometer 203 EBV DNA (PCR) EBV DNA Quant PCR log10 HCV Quantitation HCV RNA log copies/mL 06/26/17 06/26/17 06/26/17 06:00 06:06 11:38 WBC RBC Hgb Hct MCV MCH MCHC RDW Plt Count MPV PT with INR 29.20 H INR 2.58 H PTT (Actin FS) POC Glucometer 257 260 EBV DNA (PCR) EBV DNA Quant PCR log10 HCV Quantitation HCV RNA log copies/mL Problem List - Problems (1) Erythema multiforme minor Code(s): L51.9 - ERYTHEMA MULTIFORME, UNSPECIFIED (2) Afib Code(s): I48.91 - UNSPECIFIED ATRIAL FIBRILLATION Qualifiers: Atrial fibrillation type: paroxysmal Qualified Code(s): I48.0 - Paroxysmal atrial fibrillation (3) CAD (coronary artery disease) Code(s): I25.10 - ATHSCL HEART DISEASE OF [place] CORONARY ARTERY W/O ANG PCTRS (4) CHF (congestive heart failure) Code(s): I50.9 - HEART FAILURE, UNSPECIFIED (5) COPD (chronic obstructive pulmonary disease) Code(s): J44.9 - CHRONIC OBSTRUCTIVE PULMONARY DISEASE, UNSPECIFIED Qualifiers: COPD type: COPD with acute exacerbation Qualified Code(s): J44.1 - Chronic obstructive pulmonary disease with (acute) exacerbation (6) Diabetes Code(s): E11.9 - TYPE 2 DIABETES MELLITUS WITHOUT COMPLICATIONS Qualifiers: Diabetes mellitus type: type 2 Diabetes mellitus complication status: with neurologic complications (7) IDDM (insulin dependent diabetes mellitus) Code(s): E11.9 - TYPE 2 DIABETES MELLITUS WITHOUT COMPLICATIONS; Z79.4 - SHELTER (CURRENT) USE OF INSULIN (8) Lupus Code(s): L93.0 - DISCOID LUPUS ERYTHEMATOSUS (9) FIGUEROA (obstructive sleep apnea) Code(s): G47.33 - OBSTRUCTIVE SLEEP APNEA (ADULT) (PEDIATRIC) (10) S/P MVR (mitral valve replacement) Code(s): Z95.2 - PRESENCE OF PROSTHETIC HEART VALVE (11) SLE (systemic lupus erythematosus) Code(s): M32.9 - SYSTEMIC LUPUS ERYTHEMATOSUS, UNSPECIFIED (12) SOB (shortness of breath) Code(s): R06.02 - SHORTNESS OF BREATH (13) Skin rash Code(s): R21 - RASH AND OTHER NONSPECIFIC SKIN ERUPTION (14) Asthma Code(s): J45.909 - UNSPECIFIED ASTHMA, UNCOMPLICATED Assessment/Plan IMP ALLERGIC REACTION FACIAL SWELLING,GENERALIZED RASH IMPROVING ASHD S/P CABG,S/P STENTS S/P MVR AFIB ASTHMA/COPD ON O2 OSAS ON CPAP SLE FIBROMYALGIA H/O CVA PLAN AGREE IV STEROID WEAN O2 ANTIHISTAMINES INHALED BRONCHODILATORS NIPPV QHS / PRN DR ACOSTA
[2017-06-26] MEDS: ARTIFICIAL TEARS (POLYVINYL ALCOHOL 1.4%) OPTH DROPS OU SCH ×3 (13:47→21:15)
[2017-06-26] MEDS: WARFARIN NA 3 MG TABLET PO SCH (18:03)
[2017-06-26] MEDS: PRAMIPEXOLE DIHYDROCHLORIDE 0.5 MG TABLET PO SCH (21:08)
[2017-06-26] MEDS ORDERED: methylPREDNISolone NA SUCC 125 MG/2 ML VIAL IVPUSH SCH (22:00)
[2017-06-27] MEDS: INSULIN DETEMIR 100 UNITS/ML MDV SQ SCH ×2 (06:35→21:29)
[2017-06-27] MEDS: hydrOXYzine HCL 25 MG TABLET (FP) PO PRN (06:35)
[2017-06-27] MEDS: CARBIDOPA/LEVODOPA 25/100 TABLET (FP) PO SCH ×3 (06:35→21:23)
[2017-06-27] MEDS ORDERED: INSULIN (NOVOLOG) ASPART 100 UNITS/ML 10ML VIAL ONE (06:37)
[2017-06-27] MEDS: INSULIN SLIDING SCALE (NOVOLOG) 1 VIAL SQ SCH ×4 (06:37→21:30)
--- NOTE | 2017-06-27 08:14 | PN ---
Progress Note, Physician History of Present Illness: FEELS BETTER STILL WITH ITCHING RASH SUBSIDING - Current Medication List Current Medications: Active Medications Albuterol Sulfate (Ventolin 0.083% Nebulizer Soln -) 1 amp NEB RQID [facility] Last Admin: 06/26/17 20:55 Dose: 1 amp Artificial Tears (Artificial Tears) 1 drop OU QID [facility] Last Admin: 06/26/17 21:15 Dose: 1 drop Bupropion HCl (Wellbutrin Xl -) 300 mg PO DAILY [facility] Last Admin: 06/26/17 11:40 Dose: 300 mg Carbidopa/Levodopa (Sinemet 25/100 -) 1 each PO TID [facility] Last Admin: 06/27/17 06:35 Dose: 1 each Citalopram Hydrobromide (Celexa -) 10 mg PO DAILY [facility] Last Admin: 06/26/17 09:46 Dose: 10 mg Digoxin (Lanoxin -) 0.25 mg PO DAILY [facility] Last Admin: 06/26/17 09:48 Dose: Not Given Epinephrine (Epipen 0.3mg -) 0.3 mg IM PRN PRN PRN Reason: WHEEZING Hydroxyzine HCl (Atarax -) 25 mg PO TID PRN PRN Reason: FOR ITCHING Last Admin: 06/27/17 06:35 Dose: 25 mg Famotidine/Sodium Chloride (Pepcid 20 Mg Premixed Ivpb -) 20 mg in 50 mls @ 144 mls/hr IVPB BID [facility] Last Admin: 06/26/17 21:06 Dose: 144 mls/hr Insulin Aspart (Novolog Vial Sliding Scale -) 1 vial SQ ACHS [facility] PRN Reason: Protocol Last Admin: 06/27/17 06:37 Dose: 4 units Insulin Detemir (Levemir Vial) 25 units SQ BID@0700,2200 [facility] Last Admin: 06/27/17 06:35 Dose: 25 units Pramipexole Dihydrochloride (Mirapex -) 1.5 mg PO HS [facility] Last Admin: 06/26/17 21:08 Dose: 1.5 mg Pregabalin (Lyrica -) 25 mg PO BID [facility] Last Admin: 06/26/17 21:06 Dose: 25 mg Ranolazine (Ranexa -) 500 mg PO BID [facility] Last Admin: 06/26/17 21:06 Dose: 500 mg Torsemide (Demadex -) 40 mg PO DAILY [facility] Last Admin: 06/26/17 09:47 Dose: 40 mg Triamcinolone Acetonide (Aristocort 0.1% Cream -) 1 applic TP BID [facility] Last Admin: 06/26/17 21:14 Dose: 1 applic Verapamil HCl (Calan Sr -) 240 mg PO DAILY [facility] Last Admin: 06/26/17 09:47 Dose: 240 mg Warfarin Sodium (Coumadin -) 9 mg PO 1800 [facility] Last Admin: 06/26/17 18:03 Dose: 9 mg - Objective Vital Signs: Vital Signs Temperature 97.7 F 06/27/17 06:11 Pulse Rate 78 06/27/17 06:11 Respiratory Rate 17 06/27/17 06:11 Blood Pressure 133/77 06/27/17 06:11 O2 Sat by Pulse Oximetry (%) 95 06/26/17 20:55 Cardiovascular: Yes: S1 Respiratory: Yes: Regular, CTA Bilaterally Gastrointestinal: Yes: Normal Bowel Sounds, Soft Labs: CBC, BMP 06/26/17 06:00 06/25/17 05:20 INR, PTT INR 2.58 (0.82-1.09) H 06/26/17 06:00 Problem List - Problems (1) Anaphylaxis Assessment/Plan: IV STEROIDS--TAPER ORALS IN AM [facility] DC BENADRYL--START ATARAX Code(s): T78.2XXA - ANAPHYLACTIC SHOCK, UNSPECIFIED, INITIAL ENCOUNTER (2) Asthma Assessment/Plan: ON STEROIDS [facility] PUL Code(s): J45.909 - UNSPECIFIED ASTHMA, UNCOMPLICATED (3) Urticaria Assessment/Plan: ABOVE Code(s): L50.9 - URTICARIA, UNSPECIFIED (4) COPD (chronic obstructive pulmonary disease) Assessment/Plan: ABOVE Code(s): J44.9 - CHRONIC OBSTRUCTIVE PULMONARY DISEASE, UNSPECIFIED Qualifiers: COPD type: COPD with acute exacerbation Qualified Code(s): J44.1 - Chronic obstructive pulmonary disease with (acute) exacerbation (5) Diabetes Assessment/Plan: BGM ENDO ON CASE Code(s): E11.9 - TYPE 2 DIABETES MELLITUS WITHOUT COMPLICATIONS Qualifiers: Diabetes mellitus type: type 2 Diabetes mellitus complication status: with neurologic complications (6) MRSA (methicillin resistant staph aureus) culture positive Assessment/Plan: observe Code(s): Z22.322 - CARRIER OR SUSPECTED CARRIER OF METHICILLIN RESIS STAPH
[2017-06-27] MEDS: ALBUTEROL SO4 0.083% IH SOL 2.5 MG/3 ML VIAL.NEB. NEB SCH ×4 (08:43→21:10)
[2017-06-27 09:02] LABS: HEMATOCRIT 36.6 % (32.4-45.2); HEMOGLOBIN 12.1 GM/dL (10.7-15.3); MCH 30.1 pg (25.7-33.7); MEAN CELL VOLUME 91.3 fl (80-96); PLATELET COUNT 269 K/MM3 (134-434); RBC 4.02 M/mm3 (3.60-5.2); RDW 14.6 % (11.6-15.6); WHITE BLOOD COUNT 11.8 K/mm3 (4.0-10.0)
[2017-06-27] MEDS ORDERED: PT OWN MED DRAWER 7, Y5N ONE (10:13)
[2017-06-27] MEDS: methylPREDNISolone NA SUCC 40 MG/1 ML VIAL IVPUSH SCH ×2 (10:18→22:00)
[2017-06-27] MEDS: FAMOTIDINE 20 MG/50 ML IVPB 20 MG/50 ML MG IVPB SCH ×2 (10:18→21:45)
[2017-06-27] MEDS: VERAPAMIL HCL 240 MG E.R. TABLET (FP) PO SCH (10:19)
[2017-06-27] MEDS: CITALOPRAM HYDROBROMIDE 10 MG TABLET (FP) PO SCH (10:19)
[2017-06-27] MEDS: DIGOXIN 0.25 MG TABLET (FP) PO SCH (10:20)
[2017-06-27] MEDS: TRIAMCINOLONE ACET 0.1% CREAM 15 GM TUBE TP SCH ×2 (10:20→21:22)
[2017-06-27] MEDS: TORSEMIDE 20 MG TABLET (FP) PO SCH (10:20)
[2017-06-27] MEDS: ARTIFICIAL TEARS (POLYVINYL ALCOHOL 1.4%) OPTH DROPS OU SCH ×4 (10:20→21:23)
[2017-06-27] MEDS: RANOLAZINE E.R. 500 MG TABLET (FP) PO SCH ×2 (10:20→21:23)
[2017-06-27] MEDS: PREGABALIN 25 MG CAPSULE PO SCH ×2 (10:20→21:23)
--- NOTE | 2017-06-27 15:11 | PN ---
Progress Note, Physician History of Present Illness: PULMONARY ALERT,FEELING BETTER,-SOB,LESS COUGH,-CP,RASH IMPROVING - Current Medication List Current Medications: Active Medications Albuterol Sulfate (Ventolin 0.083% Nebulizer Soln -) 1 amp NEB RQID [facility] Last Admin: 06/27/17 12:19 Dose: 1 amp Artificial Tears (Artificial Tears) 1 drop OU QID [facility] Last Admin: 06/27/17 13:45 Dose: 1 drop Bupropion HCl (Wellbutrin Xl -) 300 mg PO DAILY [facility] Last Admin: 06/27/17 10:21 Dose: 300 mg Carbidopa/Levodopa (Sinemet 25/100 -) 1 each PO TID [facility] Last Admin: 06/27/17 13:45 Dose: 1 each Citalopram Hydrobromide (Celexa -) 10 mg PO DAILY [facility] Last Admin: 06/27/17 10:19 Dose: 10 mg Digoxin (Lanoxin -) 0.25 mg PO DAILY [facility] Last Admin: 06/27/17 10:20 Dose: 0.25 mg Epinephrine (Epipen 0.3mg -) 0.3 mg IM PRN PRN PRN Reason: WHEEZING Hydroxyzine HCl (Atarax -) 25 mg PO TID PRN PRN Reason: FOR ITCHING Last Admin: 06/27/17 06:35 Dose: 25 mg Famotidine/Sodium Chloride (Pepcid 20 Mg Premixed Ivpb -) 20 mg in 50 mls @ 144 mls/hr IVPB BID [facility] Last Admin: 06/27/17 10:18 Dose: 144 mls/hr Insulin Aspart (Novolog Vial Sliding Scale -) 1 vial SQ ACHS [facility] PRN Reason: Protocol Last Admin: 06/27/17 12:00 Dose: 44 units Insulin Detemir (Levemir Vial) 25 units SQ BID@0700,2200 [facility] Last Admin: 06/27/17 06:35 Dose: 25 units Methylprednisolone Sodium Succinate (Solu-Medrol -) 40 mg IVPUSH BID [facility] Last Admin: 06/27/17 10:18 Dose: 40 mg Pramipexole Dihydrochloride (Mirapex -) 1.5 mg PO HS [facility] Last Admin: 06/26/17 21:08 Dose: 1.5 mg Pregabalin (Lyrica -) 25 mg PO BID [facility] Last Admin: 06/27/17 10:20 Dose: 25 mg Ranolazine (Ranexa -) 500 mg PO BID [facility] Last Admin: 06/27/17 10:20 Dose: 500 mg Torsemide (Demadex -) 40 mg PO DAILY [facility] Last Admin: 06/27/17 10:20 Dose: 40 mg Triamcinolone Acetonide (Aristocort 0.1% Cream -) 1 applic TP BID [facility] Last Admin: 06/27/17 10:20 Dose: 1 applic Verapamil HCl (Calan Sr -) 240 mg PO DAILY [facility] Last Admin: 06/27/17 10:19 Dose: 240 mg Warfarin Sodium (Coumadin -) 9 mg PO 1800 [facility] Last Admin: 06/26/17 18:03 Dose: 9 mg - Objective Vital Signs: Vital Signs Temperature 97.7 F 06/27/17 06:11 Pulse Rate 66 06/27/17 10:20 Respiratory Rate 18 06/27/17 10:00 Blood Pressure 156/67 06/27/17 10:00 O2 Sat by Pulse Oximetry (%) 95 06/27/17 09:00 Constitutional: Yes: Well Nourished, Calm Eyes: Yes: WNL HENT: Yes: WNL Neck: Yes: WNL Cardiovascular: Yes: Pulse Irregular, S1, S2 Respiratory: Yes: Diminished Gastrointestinal: Yes: Normal Bowel Sounds, Soft Extremities: Yes: WNL Edema: No Labs: CBC, BMP 06/27/17 08:00 06/25/17 05:20 INR, PTT INR 2.58 (0.82-1.09) H 06/26/17 06:00 Problem List - Problems (1) Erythema multiforme minor Code(s): L51.9 - ERYTHEMA MULTIFORME, UNSPECIFIED (2) Afib Code(s): I48.91 - UNSPECIFIED ATRIAL FIBRILLATION Qualifiers: Atrial fibrillation type: paroxysmal Qualified Code(s): I48.0 - Paroxysmal atrial fibrillation (3) CAD (coronary artery disease) Code(s): I25.10 - ATHSCL HEART DISEASE OF [place] CORONARY ARTERY W/O ANG PCTRS (4) CHF (congestive heart failure) Code(s): I50.9 - HEART FAILURE, UNSPECIFIED (5) COPD (chronic obstructive pulmonary disease) Code(s): J44.9 - CHRONIC OBSTRUCTIVE PULMONARY DISEASE, UNSPECIFIED Qualifiers: COPD type: COPD with acute exacerbation Qualified Code(s): J44.1 - Chronic obstructive pulmonary disease with (acute) exacerbation (6) Diabetes Code(s): E11.9 - TYPE 2 DIABETES MELLITUS WITHOUT COMPLICATIONS Qualifiers: Diabetes mellitus type: type 2 Diabetes mellitus complication status: with neurologic complications (8) IDDM (insulin dependent diabetes mellitus) Code(s): E11.9 - TYPE 2 DIABETES MELLITUS WITHOUT COMPLICATIONS; Z79.4 - JAIL (CURRENT) USE OF 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 Assessment/Plan IMP ALLERGIC REACTION FACIAL SWELLING,GENERALIZED RASH IMPROVING ASHD S/P CABG,S/P STENTS S/P MVR AFIB ASTHMA/COPD ON O2 OSAS ON CPAP SLE FIBROMYALGIA H/O CVA PLAN STEROIDS O2 INHALED BRONCHODILATORS BIPAP AT NIGHT GLYCEMIC CONTROL DR IVERSON Problem List - Problems (1) Erythema multiforme minor Code(s): L51.9 - ERYTHEMA MULTIFORME, UNSPECIFIED (2) Afib Code(s): I48.91 - UNSPECIFIED ATRIAL FIBRILLATION Qualifiers: Atrial fibrillation type: paroxysmal Qualified Code(s): I48.0 - Paroxysmal atrial fibrillation (3) CAD (coronary artery disease) Code(s): I25.10 - ATHSCL HEART DISEASE OF [place] CORONARY ARTERY W/O ANG PCTRS (4) CHF (congestive heart failure) Code(s): I50.9 - HEART FAILURE, UNSPECIFIED (5) COPD (chronic obstructive pulmonary disease) Code(s): J44.9 - CHRONIC OBSTRUCTIVE PULMONARY DISEASE, UNSPECIFIED Qualifiers: COPD type: COPD with acute exacerbation Qualified Code(s): J44.1 - Chronic obstructive pulmonary disease with (acute) exacerbation (6) Diabetes Code(s): E11.9 - TYPE 2 DIABETES MELLITUS WITHOUT COMPLICATIONS Qualifiers: Diabetes mellitus type: type 2 Diabetes mellitus complication status: with neurologic complications (8) IDDM (insulin dependent diabetes mellitus) Code(s): E11.9 - TYPE 2 DIABETES MELLITUS WITHOUT COMPLICATIONS; Z79.4 - JAIL (CURRENT) USE OF 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
[2017-06-27] MEDS: WARFARIN NA 3 MG TABLET PO SCH (17:22)
[2017-06-27] MEDS: PRAMIPEXOLE DIHYDROCHLORIDE 0.5 MG TABLET PO SCH (21:28)
[2017-06-28] MEDS: hydrOXYzine HCL 25 MG TABLET (FP) PO PRN (00:58)
[2017-06-28] MEDS: CARBIDOPA/LEVODOPA 25/100 TABLET (FP) PO SCH (06:29)
[2017-06-28] MEDS: INSULIN SLIDING SCALE (NOVOLOG) 1 VIAL SQ SCH ×2 (06:48→10:44)
[2017-06-28] MEDS: INSULIN DETEMIR 100 UNITS/ML MDV SQ SCH (06:48)
[2017-06-28] MEDS ORDERED: INSULIN (NOVOLOG) ASPART 100 UNITS/ML 10ML VIAL ONE ×2 (06:54→10:23)
[2017-06-28] MEDS: ALBUTEROL SO4 0.083% IH SOL 2.5 MG/3 ML VIAL.NEB. NEB SCH ×2 (07:15→11:23)
--- NOTE | 2017-06-28 08:29 | DS ---
Physical Examination Vital Signs: Vital Signs Temperature 97.8 F 06/28/17 06:47 Pulse Rate 55 L 06/28/17 06:47 Respiratory Rate 20 06/28/17 06:47 Blood Pressure 155/81 06/28/17 06:47 O2 Sat by Pulse Oximetry (%) 96 06/27/17 20:50 Cardiovascular: Yes: S1, S2 Respiratory: Yes: Regular, CTA Bilaterally Gastrointestinal: Yes: Normal Bowel Sounds, Soft Labs: CBC, BMP 06/27/17 08:00 06/25/17 05:20 Discharge Summary Reason For Visit: ERYTHEMA MULTIFORME MINOR Current Active Problems Anaphylaxis (Acute) Asthma (Acute) Erythema multiforme minor (Acute) MRSA (methicillin resistant staph aureus) culture positive (Acute) Urticaria (Acute) Hospital Course: 66 y/o F with PMH HTN, HLD, Parkinson's dz, Lupus (dx 2005. was on MTX, no longer d/t adverse effects. had skin biopsy RLE; was also on Prednisone, however does not take 2/2 bloating), Fibromyalgia, DM, CHF, COPD (on 2L at home) , sleep apnea (on CPAP), atrial fibrillation (on coumadin), anemia, asthma, glaucoma, MV replacement, CVA, spinal stenosis, CAD s/p 2 stents (2014), who presents to the ED c/o worsening rash over the past four days. As per patient, on Sunday, she ate an egg roll that may have been contaminated with shellfish. Pt is allergic and has developed a maculopapular rash from this in the past. On Sunday, pt was being bathed by her aid and noticed that she had small, pruritic targetoid lesions on her anterior chest and all over her back. At this time, pt felt that her scalp was especially pruritic, and she started to develop intermittent fevers and become so uncomfortable, that she as unable to sleep well. On Sunday, pt developed severe diffuse abdominal pain a/w nausea ( without emesis), dry mouth, loose stools, and hematuria. On Sunday, pt's nausea continued, fevers continued (she did not check the temp at home), and her skin lesions began to enlarge, becoming more targetoid and spreading across her trunk, and upper and lower extremities. Today, pt followed up with an sales and management trainee and was told that she had idiopathic urticaria and was given cetirizine 10mg PO qd. Pt came to the hospital today since she was urged to by her associate financial representative, who believed that her "immune system was down." During this time, pt also endorses diffuse HURD, intermittent, stabbing chest pain, intermittent fevers, SOB, changes in urinary and bowel function. She denies recent travel. Pt started new eye drops for her glaucoma, and states that on her past [facility] admission, she was in a room with a patient who had diffuse skin lesions. She is worried that she was contaminated from this instance. ER course was notable for: (2) BG 198 (3) Rocephin 1 g x 1 IVPB (4) Vanc 1g x 1 (4) Benadryl 50mg x 1 (5) Solumedrol 125mg x 1 Recent Travel: none PAST MEDICAL HISTORY: as above PAST SURGICAL HISTORY: CAD s/p 2 stents (2014) Social History: lives at home, has two aids. Has needed them ever since she had her stents placed, and to help with her fibromyalgia. She ambulates with their assistance. Smoking: quit; smoked for 10 yrs, 3 cigarettes/day Alcohol: denies Drugs: denies - Problems (1) Anaphylaxis Assessment/Plan: IV STEROIDS--TAPER--po prednisone NEBS DC BENADRYL--START ATARAX Code(s): T78.2XXA - ANAPHYLACTIC SHOCK, UNSPECIFIED, INITIAL ENCOUNTER (2) Asthma Assessment/Plan: ON STEROIDS NEBS PULM Code(s): J45.909 - UNSPECIFIED ASTHMA, UNCOMPLICATED (3) Urticaria Assessment/Plan: ABOVE Code(s): L50.9 - URTICARIA, UNSPECIFIED (4) COPD (chronic obstructive pulmonary disease) Assessment/Plan: ABOVE Code(s): J44.9 - CHRONIC OBSTRUCTIVE PULMONARY DISEASE, UNSPECIFIED Qualifiers: COPD type: COPD with acute exacerbation Qualified Code(s): J44.1 - Chronic obstructive pulmonary disease with (acute) exacerbation (5) Diabetes Assessment/Plan: BGM SS ENDO ON CASE Code(s): E11.9 - TYPE 2 DIABETES MELLITUS WITHOUT COMPLICATIONS Qualifiers: Diabetes mellitus type: type 2 Diabetes mellitus complication status: with neurologic complications (6) MRSA (methicillin resistant staph aureus) culture positive Assessment/Plan: observe Code(s): Z22.322 - CARRIER OR SUSPECTED CARRIER OF METHICILLIN RESIS STAPH Condition: Stable - Instructions Referrals: Jose España MD [Primary Care Provider] - Disposition: HOME - Home Medications Comprehensive Discharge Medication List: Ambulatory Orders Albuterol 0.083% Nebulizer Brigitte [Ventolin 0.083% Nebulizer Soln -] 1 neb NEB QID 06/21/17 Bupropion HCl [Wellbutrin Xl] 300 mg PO DAILY 06/21/17 Carbidopa/Levodopa [Carbidopa-Levodopa 25-100 Tab] 1 each PO TID 06/21/17 Cholecalciferol (Vitamin D3) [Vitamin D -] 1,000 unit PO DAILY 06/21/17 Citalopram Hydrobromide [Celexa -] 10 mg PO DAILY 06/21/17 Digoxin [Lanoxin -] 0.25 mg PO DAILY 06/21/17 Ferrous Sulfate [Iron] 325 mg PO DAILY 06/21/17 Hypromellose 0.5% Opth Soln [Artificial Tears] 1 drop OD QID 06/21/17 Insulin Aspart [Novolog] 6 unit SQ TID 06/21/17 Insulin Detemir [Levemir Flextouch] 30 unit SQ HS 06/21/17 Pantoprazole Sodium [Protonix] 40 mg PO TID 06/21/17 Pramipexole Di-HCl [Mirapex] 1.5 mg PO HS 06/21/17 Pregabalin [Lyrica] 25 mg PO BID 06/21/17 Ranolazine [Ranexa] 500 mg PO BID 06/21/17 Topiramate [Topamax] 150 mg PO BID 06/21/17 Torsemide [Demadex -] 20 mg PO TID 06/21/17 Verapamil HCl [Calan Sr] 240 mg PO DAILY 06/21/17 Warfarin Sodium [Coumadin] 9 mg PO HS 06/21/17 Triamcinolone 0.1% Cream [Aristocort 0.1% Cream -] 1 applic TP BID #60 gm hydrOXYzine HCL [Atarax -] 25 mg PO TID PRN #30 tablet 06/28/17 predniSONE [Deltasone -] 10 mg PO DAILY #100 tablet 06/28/17
[2017-06-28] MEDS ORDERED: predniSONE 10 MG TABLET (UD) PO SCH (10:00)
[2017-06-28] MEDS: methylPREDNISolone NA SUCC 40 MG/1 ML VIAL IVPUSH SCH (10:29)
[2017-06-28] MEDS: FAMOTIDINE 20 MG/50 ML IVPB 20 MG/50 ML MG IVPB SCH (10:29)
[2017-06-28] MEDS: PREGABALIN 25 MG CAPSULE PO SCH (10:30)
[2017-06-28] MEDS: CITALOPRAM HYDROBROMIDE 10 MG TABLET (FP) PO SCH (10:30)
[2017-06-28] MEDS: TORSEMIDE 20 MG TABLET (FP) PO SCH (10:31)
[2017-06-28] MEDS: RANOLAZINE E.R. 500 MG TABLET (FP) PO SCH (10:31)
[2017-06-28] MEDS: DIGOXIN 0.25 MG TABLET (FP) PO SCH (10:31)
[2017-06-28] MEDS: VERAPAMIL HCL 240 MG E.R. TABLET (FP) PO SCH (10:33)
[2017-06-28] MEDS: ARTIFICIAL TEARS (POLYVINYL ALCOHOL 1.4%) OPTH DROPS OU SCH (10:34)
[2017-06-28] MEDS: TRIAMCINOLONE ACET 0.1% CREAM 15 GM TUBE TP SCH (10:35)
[2017-06-28 10:44] VITALS: PULSE 74
[2017-06-28 11:42] VITALS: BP 152/72; TEMP 98.1
--- NOTE | 2017-06-28 12:43 | PN ---
Progress Note (short form) - Note Progress Note: Breathing overall improved. No acute events overnight. Intake & Output 06/25/17 06/26/17 06/27/17 06/28/17 23:59 23:59 23:59 23:59 Intake Total 904 171 4518 500 Balance 109 823 0867 500 Weight 214 lb 7 oz 212 lb 9 oz 201 lb 7 oz Last Vital Signs Temp Pulse Resp BP Pulse Ox 98.1 F 74 20 152/72 96 06/28/17 08:00 06/28/17 10:31 06/28/17 08:00 06/28/17 08:00 06/28/17 08:00 Constitutional: Yes: NAD Eyes: Yes: WNL HENT: Yes: WNL Neck: Yes: WNL Cardiovascular: Yes: Pulse Irregular, S1, S2 Respiratory: Yes: scattered bilateral rhonchi Gastrointestinal: Yes: Normal Bowel Sounds, Soft Extremities: Yes: WNL Edema: No Labs: Laboratory Results - last 24 hr 06/27/17 06/27/17 06/28/17 16:28 21:00 05:35 POC Glucometer 305 273 225 06/28/17 10:43 POC Glucometer 147 Problem List - Problems (1) Erythema multiforme minor Code(s): L51.9 - ERYTHEMA MULTIFORME, UNSPECIFIED (2) Afib Code(s): I48.91 - UNSPECIFIED ATRIAL FIBRILLATION Qualifiers: Atrial fibrillation type: paroxysmal Qualified Code(s): I48.0 - Paroxysmal atrial fibrillation (3) CAD (coronary artery disease) Code(s): I25.10 - ATHSCL HEART DISEASE OF [place] CORONARY ARTERY W/O ANG PCTRS (4) CHF (congestive heart failure) Code(s): I50.9 - HEART FAILURE, UNSPECIFIED (5) COPD (chronic obstructive pulmonary disease) Code(s): J44.9 - CHRONIC OBSTRUCTIVE PULMONARY DISEASE, UNSPECIFIED Qualifiers: COPD type: COPD with acute exacerbation Qualified Code(s): J44.1 - Chronic obstructive pulmonary disease with (acute) exacerbation (6) Diabetes Code(s): E11.9 - TYPE 2 DIABETES MELLITUS WITHOUT COMPLICATIONS Qualifiers: Diabetes mellitus type: type 2 Diabetes mellitus complication status: with neurologic complications (7) IDDM (insulin dependent diabetes mellitus) Code(s): E11.9 - TYPE 2 DIABETES MELLITUS WITHOUT COMPLICATIONS; Z79.4 - [facility] (CURRENT) USE OF INSULIN (8) Lupus Code(s): L93.0 - DISCOID LUPUS ERYTHEMATOSUS (9) FIGUEROA (obstructive sleep apnea) Code(s): G47.33 - OBSTRUCTIVE SLEEP APNEA (ADULT) (PEDIATRIC) (10) S/P MVR (mitral valve replacement) Code(s): Z95.2 - PRESENCE OF PROSTHETIC HEART VALVE (11) SLE (systemic lupus erythematosus) Code(s): M32.9 - SYSTEMIC LUPUS ERYTHEMATOSUS, UNSPECIFIED (12) SOB (shortness of breath) Code(s): R06.02 - SHORTNESS OF BREATH (13) Skin rash Code(s): R21 - RASH AND OTHER NONSPECIFIC SKIN ERUPTION (14) Asthma Code(s): J45.909 - UNSPECIFIED ASTHMA, UNCOMPLICATED Assessment/Plan IMP ALLERGIC REACTION FACIAL SWELLING,GENERALIZED RASH IMPROVING ASHD S/P CABG,S/P STENTS S/P MVR AFIB ASTHMA/COPD ON O2 OSAS ON CPAP SLE FIBROMYALGIA H/O CVA PLAN CONTINUE HOME MEDS NO SMOKING INHALED BRONCHODILATORS D/C PLANNING DR ACOSTA
== END 2017-06-28 12:29 | disposition home or self-care (01) | DRG 596 ==
LOC: JER 12:18 → JERBED 18:43 → INTOOBSV 18:43 → J5S 21:23 → JICU 06-23 14:24 → OBSVTOIN 06-24 14:34 → J6S 06-25 20:18
PROVIDERS: ADMIT Internal Medicine; ATTEND Family Medicine
DX: L51.9 Erythema multiforme, unspecified (principal); D68.61 Antiphospholipid syndrome; N39.0 Urinary tract infection, site not specified; I50.32 Chronic diastolic (congestive) heart failure; E78.5 Hyperlipidemia, unspecified; J44.9 Chronic obstructive pulmonary disease, unspecified; Z99.81 Dependence on supplemental oxygen; I25.10 Atherosclerotic heart disease of native coronary artery without angina pectoris; I48.91 Unspecified atrial fibrillation; Z79.01 Long term (current) use of anticoagulants; D64.9 Anemia, unspecified; M32.9 Systemic lupus erythematosus, unspecified; I11.0 Hypertensive heart disease with heart failure; Z95.2 Presence of prosthetic heart valve; Z86.73 Personal history of transient ischemic attack (TIA), and cerebral infarction without residual deficits; Z79.4 Long term (current) use of insulin; G20 Parkinson's disease; M79.7 Fibromyalgia; H40.9 Unspecified glaucoma; R07.9 Chest pain, unspecified; E66.01 Morbid (severe) obesity due to excess calories; Z95.1 Presence of aortocoronary bypass graft; D50.9 Iron deficiency anemia, unspecified; E11.65 Type 2 diabetes mellitus with hyperglycemia; Z68.38 Body mass index [BMI] 38.0-38.9, adult; E11.51 Type 2 diabetes mellitus with diabetic peripheral angiopathy without gangrene; I48.0 Paroxysmal atrial fibrillation; G43.909 Migraine, unspecified, not intractable, without status migrainosus; L50.9 Urticaria, unspecified; F41.8 Other specified anxiety disorders; Z98.61 Coronary angioplasty status
CPT/HCPCS: 36415; 71045-TC-FY; 80053; 80162; 81003; 81015; 82728; 82962; 83540; 83550; 83605; 83735; 84100; 84484; 85025; 85027; 85610; 85651; 85730; 86140; 86704; 86706; 86708; 87040; 87086; 87186; 87340; 87522; 87529; 87799; 93005; 93010; 94640; 94660; 97116-GP; 97162-GP; 99282-25; G0378; J1644; J7030

== ENCOUNTER 2017-07-29 02:31 | Inpatient (IN) | payer OTHER ==
--- NOTE | 2017-07-29 03:10 | PDOC ---
History of Present Illness - General History Source: Patient, Old Records Exam Limitations: No Limitations - History of Present Illness Initial Comments: 07/29/17 05:42 Patient is a 66 year old female with a significant past medical history of HTN, HLD, Parkinson's dz, Lupus (dx 2005. was on MTX, no longer d/t adverse effects. had skin biopsy RLE; was also on Prednisone, however does not take 2/2 bloating) , Fibromyalgia, DM, CHF, COPD (on 2L at home), sleep apnea (on CPAP), atrial fibrillation (on coumadin), anemia, asthma, glaucoma, MV replacement, CVA, spinal stenosis, CAD s/p 2 stents (2014), who presents to the ED with complaints of head pain, s/p fall that occurred just prior to ED arrival. Patient reports falling out of bed this morning while sleeping, stating while sleeping she hit her head on the metal handle of her night stand causing immediate pain. She reports not knowing whether or not she lost consciousness but states, the next thing i knew i was on the floor. Patient reports using a walker at baseline but states she was unable to ambulate after the initial fall , stating she was able to get back to her bed with the help of her friend prior to calling EMS. Patient reports experiencing associated symptoms of left knee pain that she states hit the floor during the fall. She reports taking no medication for pain but states coming to the ED for further evaluation after pain did not subside. Denies chest pain, Sob. Denies nausea, vomiting, Denies fevers, chills. Denies change in vision, dizziness. Denies any other symptoms. Allergies: Lactose, Beta blockers, Fish, Iodinated contrast, Shellfish. Social history: Lives alone. Former smoker. No alcohol. No illicit drugs. Surgical history: CAD s/p 2 stents (2014) PMD: Dr. España <Jorge Ibrahim - Last Filed: 07/29/17 05:42> <Randi Brothers - Last Filed: 07/30/17 00:00> - General Chief Complaint: Injury Stated Complaint: FALL Time Seen by Provider: 07/29/17 02:55 Past History <Jorge Ibrahim - Last Filed: 07/29/17 05:42> - Past Medical History Anemia: Yes Asthma: Yes Cardiac Disorders: Yes (mitral valve replacement, stents x2,a-fib, CAD) CVA: Yes (MULTIPLE TIAs) COPD: Yes (Yes, O2 2L-3L) CHF: Yes Diabetes: Yes GI Disorders: Yes (ulcers, GI bleed, hemorrhoids, diverticulosis) Disorders: Yes (bladder mesh) HTN: Yes Hypercholesterolemia: Yes Seizures: Yes Thyroid Disease: No - Surgical History Appendectomy: Yes Cardiac Surgery: Yes (stentsx2, mitral valve replacement, CABG) Cholecystectomy: Yes Orthopedic Surgery: Yes (left knee pain injection) - Immunization History Immunization Up to Date: Yes - Suicide/Smoking/Psychosocial Hx Smoking Status: No Smoking History: Never smoked Have you smoked in the past 12 months: No Number of Cigarettes Smoked Daily: 0 If you are a former smoker, when did you quit?: many years Information on smoking cessation initiated: No Hx Alcohol Use: No Drug/Substance Use Hx: No Substance Use Type: None Hx Substance Use Treatment: No <Randi Brothers - Last Filed: 07/30/17 00:00> - Past Medical History Allergies/Adverse Reactions: Allergies Allergy/AdvReac Type Severity Reaction Status Date / Time lactose Allergy Mild Verified 07/29/17 02:43 Beta-Blockers Allergy Verified 07/29/17 02:43 (Beta-Adrenergic Bloc Fish Containing Products Allergy Verified 07/29/17 02:43 fish derived Allergy Verified 07/29/17 02:43 Iodinated Contrast- Oral and Allergy Verified 07/29/17 02:43 IV Dye [IV Dye, Iodine Containing Contrast ] shellfish derived Allergy Verified 07/29/17 02:43 Home Medications: Ambulatory Orders Albuterol 0.083% Nebulizer Brigitte [Ventolin 0.083% Nebulizer Soln -] 1 neb NEB QID 06/21/17 Bupropion HCl [Wellbutrin Xl] 300 mg PO DAILY 06/21/17 Carbidopa/Levodopa [Carbidopa-Levodopa 25-100 Tab] 1 each PO TID 06/21/17 Cholecalciferol (Vitamin D3) [Vitamin D -] 1,000 unit PO DAILY 06/21/17 Citalopram Hydrobromide [Celexa -] 10 mg PO DAILY 06/21/17 Digoxin [Lanoxin -] 0.25 mg PO DAILY 06/21/17 Ferrous Sulfate [Iron] 325 mg PO DAILY 06/21/17 Hypromellose 0.5% Opth Soln [Artificial Tears] 1 drop OD QID 06/21/17 Pantoprazole Sodium [Protonix] 40 mg PO DAILY 06/21/17 Pramipexole Di-HCl [Mirapex] 0.5 mg PO TID 06/21/17 Pregabalin [Lyrica] 25 mg PO BID 06/21/17 Ranolazine [Ranexa] 500 mg PO BID 06/21/17 Topiramate [Topamax] 150 mg PO BID 06/21/17 Torsemide [Demadex -] 20 mg PO HS 06/21/17 Verapamil HCl [Calan Sr] 240 mg PO DAILY 06/21/17 Warfarin Sodium [Coumadin] 9 mg PO HS 06/21/17 Triamcinolone 0.1% Cream [Aristocort 0.1% Cream -] 1 applic TP BID #60 gm predniSONE [Deltasone -] 10 mg PO DAILY #100 tablet 06/28/17 Cetirizine HCl 10 mg PO BID 07/29/17 Coumadin 11 mg PO WEEKLY 07/29/17 Insulin Glargine,Hum.rec.anlog [Lantus Solostar PEN (NF)] 40 units SQ AM Insulin Lispro [Humalog] 0 unit SQ TID 07/29/17 Pramipexole Di-HCl [Mirapex] 1 mg PO HS 07/29/17 Torsemide [Demadex] 40 mg PO AM 07/29/17 Review of Systems - Review of Systems Able to Perform ROS?: Yes Comments:: 07/29/17 05:42 GENERAL/CONSTITUTIONAL: No fever or chills. No weakness. HEAD, EYES, EARS, NOSE AND THROAT: No change in vision. No ear pain or discharge. No sore throat. CARDIOVASCULAR: No chest pain or shortness of breath. RESPIRATORY: No cough, wheezing, or hemoptysis. GASTROINTESTINAL: No nausea, vomiting, diarrhea or constipation. GENITOURINARY: No dysuria, frequency, or change in urination. MUSCULOSKELETAL: +Left knee pain. No joint or muscle swelling or pain. No neck or back pain. SKIN: No rash NEUROLOGICAL: +Headpain. No vertigo, loss of consciousness, or change in strength/sensation. ENDOCRINE: No increased thirst. No abnormal weight change. HEMATOLOGIC/LYMPHATIC: No anemia, easy bleeding, or history of blood clots. ALLERGIC/IMMUNOLOGIC: No hives or skin allergy. <Jorge Ibrahim - Last Filed: 07/29/17 05:42> *Physical Exam - Vital Signs Last Vital Signs Temp Pulse Resp BP Pulse Ox 98.1 F 60 22 127/75 100 07/29/17 02:43 07/29/17 02:43 07/29/17 02:43 07/29/17 02:43 07/29/17 02:43 - Physical Exam Comments: 07/29/17 05:42 GENERAL: Awake, alert, and fully oriented, in no acute distress HEAD: No signs of trauma EYES: PERRLA, EOMI, sclera anicteric, conjunctiva clear ENT: Auricles normal inspection, hearing grossly normal, nares patent, oropharynx clear without exudates. Moist mucosa NECK: Normal ROM, supple, no lymphadenopathy, JVD, or masses LUNGS: Breath sounds equal, clear to auscultation bilaterally. No wheezes, and no crackles HEART: Regular rate and rhythm, normal S1 and S2, no murmurs, rubs or gallops ABDOMEN: Soft, nontender, normoactive bowel sounds. No guarding, no rebound. No masses EXTREMITIES: +Left knee abrasions. Normal range of motion, no edema. No clubbing or cyanosis. No cords, erythema, NEUROLOGICAL: Cranial nerves II through XII grossly intact. Normal speech, normal gait SKIN: Warm, Dry, normal turgor, no rashes or lesions noted. <Jorge Ibrahim - Last Filed: 07/29/17 05:42> - Vital Signs Last Vital Signs Temp Pulse Resp BP Pulse Ox 98.1 F 60 22 127/75 100 07/29/17 02:43 07/29/17 02:43 07/29/17 02:43 07/29/17 02:43 07/29/17 02:43 <Randi Brothers - Last Filed: 07/30/17 00:00> Heart Score/ECG Review - ECG Intrepretation Comment:: 07/29/17 04:56 Completed @3:53:[address] elevation, consider early replorization, pericarditis, or injury Nonspecific T wave abnormality Abnormal ECG Vent. rate 59 bpm SC interval 158 ms QRS duration 86 ms <Jorge Ibrahim - Last Filed: 07/29/17 05:42> ED Treatment Course - LABORATORY CBC & Chemistry Diagram: 07/29/17 04:13 07/29/17 04:13 - ADDITIONAL ORDERS Additional order review: 07/29/17 04:13 RBC 4.30 MCV 90.3 MCHC 33.5 RDW 15.0 MPV 9.5 Neutrophils % 79.0 Lymphocytes % 12.1 D Monocytes % 7.9 Eosinophils % 0.2 D Basophils % 0.8 D - Medications Given in the ED: ED Medications Discontinued Medications Generic Name Dose Route Start Last Admin Trade Name Freq PRN Reason Stop Dose Admin Acetaminophen 1,000 mg 07/29/17 03:51 07/29/17 04:32 Ofirmev Injection - IVPB 07/29/17 03:52 1,000 mg ONCE ONE Administration <Jorge Ibrahim - Last Filed: 07/29/17 05:42> - LABORATORY CBC & Chemistry Diagram: 07/29/17 04:13 07/29/17 04:13 <Randi Brothers - Last Filed: 07/30/17 00:00> Medical Decision Making - Medical Decision Making 07/29/17 23:58 Pt fell out of bed and she hit her head. Doesn't recall all events. SHe is on coumadin and she will be admitted for observation. <Randi Brothers - Last Filed: 07/30/17 00:00> *DC/Admit/Observation/Transfer - Attestations Scribe Attestion: 07/29/17 05:43 Documentation prepared by Jorge Ibrahim, acting as medical scheduler for Randi Brothers MD/DO. <Jorge Ibrahim - Last Filed: 07/29/17 05:42> <Randi Brothers - Last Filed: 07/30/17 00:00> Diagnosis at time of Disposition: Anticoagulated, Head trauma - Discharge Dispostion Condition at time of disposition: Guarded
[2017-07-29] MEDS ORDERED: ACETAMINOPHEN 1000 MG/100 ML VIAL (NON FORMULARY) IVPB ONE (03:51)
[2017-07-29] MEDS ORDERED: ACETAMINOPHEN INJECTION 100 ML IVPB ONE (04:22)
[2017-07-29 04:24] LABS: BASO % 0.8 % (0-2.0); EOS % 0.2 % (0-4.5); HEMATOCRIT 38.8 % (32.4-45.2); LYMPH % 12.1 % (8-40); MCH 30.3 pg (25.7-33.7); MCHC 33.5 g/dl (32.0-36.0); MEAN CELL VOLUME 90.3 fl (80-96); MEAN PLT VOLUME 9.5 fl (7.5-11.1); MONO % 7.9 % (3.8-10.2); PLATELET COUNT 303 K/MM3 (134-434); WHITE BLOOD COUNT 16.9 K/mm3 (4.0-10.0)
[2017-07-29 05:13] LABS: ALBUMIN 3.6 g/dl (3.4-5.0); ALK PHOS 144 U/L (45-117); ANION GAP 6 (8-16); BILIRUBIN,TOTAL 0.2 mg/dL (0.2-1.0); BLOOD UREA NITROGEN 32 mg/dL (7-18); CALCIUM 8.8 mg/dL (8.5-10.1); CHLORIDE 100 mmol/L (98-107); CO2 30 mmol/L (21-32); CREATININE 1.2 mg/dL (0.55-1.02); POTASSIUM 3.9 mmol/L (3.5-5.1); SGOT/AST 6 U/L (15-37); SGPT/ALT 17 U/L (12-78); SODIUM 136 mmol/L (136-145); TOT PROT 6.8 g/dl (6.4-8.2)
[2017-07-29 05:15] LABS: GLUCOSE,RANDOM 372 mg/dL (74-106)
[2017-07-29 05:53] LABS: INR 2.97 (0.82-1.09); PROTHROMBIN TIME (PATIENT) 33.6 SEC (9.7-13.0)
[2017-07-29 07:14] LABS: URINE APPEARANCE SLCLOUDY; URINE BILIRUBIN NEGATIVE (<2.0 mg/dL); URINE BLOOD NEGATIVE (NEGATIVE); URINE COLOR LTYELLOW; URINE GLUCOSE (UA) 3+ (NEGATIVE); URINE KETONE NEGATIVE (NEGATIVE); URINE NITRITE NEGATIVE (NEGATIVE); URINE PROTEIN NEGATIVE (NEGATIVE); URINE UROBILINOGEN NEGATIVE mg/dL (0.2-1.0)
[2017-07-29 07:29] LABS: URINE LEUK ESTERASE 2+ (NEGATIVE)
[2017-07-29 07:30] LABS: EPI CELLS RARE /HPF (FEW)
[2017-07-29] MEDS ORDERED: VANCOMYCIN 1,000 MG in DEXTROSE 5%-WATER - 250 ML IVPB ONE (07:42)
[2017-07-29] MEDS ORDERED: CEFTRIAXONE 1,000 MG in DEXTROSE 5%-WATER - 50 ML IVPB ONE (07:42)
--- NOTE | 2017-07-29 08:16 | HP ---
CHIEF COMPLAINT: s/p fall on Warfarin PCP: Dr. Toussaint HISTORY OF PRESENT ILLNESS: Patient is a 66 year old female with an extensive PMHx of HTN, HLD, CAD s/p stent (2014), A.fib (on Coumadin), IDDMII, COPD/Asthma, COPD (3L o2) , Sleep Apnea (on CPAP), CVA, Parkinsons, Lupus (no longer on MTX due to side effects), fibromyalgia, spinal stenosis, MV replacement, who reports waking up on the floor s/p fall and hitting her head on the metal johana next to her bed. Patient reports she fell out of her bed several times in the past because she states she 's "randomly" falling asleep throughout the day. However, this time patient was unable to ambulate with her walker and felt a pounding headache, which prompted this hospital visit. She also reports feeling tired throughout the day and snores at night. She does take CPAP at night and is compliant with it. Patient otherwise, denies fever, chills, nausea, vomiting, abdominal pain, chest pain, palpitations, acute vision changes, loss of consciousness, hematuria , diarrhea, constipation, frequency. ER course was notable for: (1) Head CT negative (2) WBC >16 (3) U/A revealing UTI Recent Travel: Denies PAST MEDICAL HISTORY: HTN, HLD, CAD s/p stent (2014), A.fib (on Coumadin), Diastolic CHF, IDDMII, CKD, COPD/Asthma, COPD (3L o2) , Sleep Apnea (on CPAP), CVA, Parkinsons, Lupus (no longer on MTX due to side effects), fibromyalgia, spinal stenosis, PAST SURGICAL HISTORY: Stent placement (2014), MV replacement Social History: Smoking: Former smoker Alcohol: Denies Drugs: Denies Lives at home with grandson Family History: Non-contributory Allergies: lactose Allergy (Mild, Verified 07/29/17 02:43) Beta-Blockers (Beta-Adrenergic Bloc Allergy (Verified 07/29/17 02:43) Fish Containing Products Allergy (Verified 07/29/17 02:43) fish derived Allergy (Verified 07/29/17 02:43) Iodinated Contrast- Oral and IV Dye [IV Dye, Iodine Containing Contrast ] Allergy (Verified 07/29/17 02:43) shellfish derived Allergy (Verified 07/29/17 02:43) HOME MEDICATIONS: Home Medications Medication Instructions Recorded Albuterol 0.083% Nebulizer Brigitte 1 neb NEB QID 06/21/17 [Ventolin 0.083% Nebulizer Soln -] Bupropion HCl [Wellbutrin Xl] 300 mg PO DAILY 06/21/17 Carbidopa/Levodopa 1 each PO TID 06/21/17 [Carbidopa-Levodopa 25-100 Tab] Cholecalciferol (Vitamin D3) 1,000 unit PO DAILY 06/21/17 [Vitamin D -] Citalopram Hydrobromide [Celexa -] 10 mg PO DAILY 06/21/17 Digoxin [Lanoxin -] 0.25 mg PO DAILY 06/21/17 Ferrous Sulfate [Iron] 325 mg PO DAILY 06/21/17 Hypromellose 0.5% Opth Soln 1 drop OD QID 06/21/17 [Artificial Tears] Pantoprazole Sodium [Protonix] 40 mg PO DAILY 06/21/17 Pramipexole Di-HCl [Mirapex] 1.5 mg PO TID 06/21/17 Pregabalin [Lyrica] 25 mg PO BID 06/21/17 Ranolazine [Ranexa] 500 mg PO BID 06/21/17 Topiramate [Topamax] 150 mg PO BID 06/21/17 Torsemide [Demadex -] 20 mg PO HS 06/21/17 Verapamil HCl [Calan Sr] 240 mg PO DAILY 06/21/17 Warfarin Sodium [Coumadin] 9 mg PO HS 06/21/17 Triamcinolone 0.1% Cream 1 applic TP BID #60 gm 06/28/17 [Aristocort 0.1% Cream -] predniSONE [Deltasone -] 10 mg PO DAILY #100 tablet 06/28/17 Cetirizine HCl 10 mg PO BID 07/29/17 Insulin Glargine,Hum.rec.anlog 40 units SQ AM 07/29/17 [Lantus Solostar PEN (NF)] Insulin Lispro [Humalog] 0 unit SQ TID 07/29/17 Torsemide [Demadex] 40 mg PO AM 07/29/17 REVIEW OF SYSTEMS CONSTITUTIONAL: Absent: fever, chills, diaphoresis, generalized weakness, malaise, loss of appetite, weight change HEENT: Absent: rhinorrhea, nasal congestion, throat pain, throat swelling, difficulty swallowing, mouth swelling, ear pain, eye pain, visual changes CARDIOVASCULAR: Absent: chest pain, syncope, palpitations, irregular heart rate, lightheadedness , peripheral edema RESPIRATORY: shortness of breath, dyspnea with exertion Absent: cough, orthopnea, wheezing, stridor, hemoptysis GASTROINTESTINAL: Absent: abdominal pain, abdominal distension, nausea, vomiting, diarrhea, constipation, melena, hematochezia GENITOURINARY: Absent: dysuria, frequency, urgency, hesitancy, hematuria, flank pain, genital pain MUSCULOSKELETAL: Absent: myalgia, arthralgia, joint swelling, back pain, neck pain SKIN: Absent: rash, itching, pallor HEMATOLOGIC/IMMUNOLOGIC: Absent: easy bleeding, easy bruising, lymphadenopathy, frequent infections ENDOCRINE: Absent: unexplained weight gain, unexplained weight loss, heat intolerance, cold intolerance NEUROLOGIC: headache, unsteady gait, excessive daytime drowsiness Absent: focal weakness or paresthesias, dizziness, seizure, mental status changes, bladder or bowel incontinence PSYCHIATRIC: anxiety, depression Absent: suicidal or homicidal ideation, hallucinations. PHYSICAL EXAMINATION Vital Signs - 24 hr 07/29/17 02:43 Temperature 98.1 F Pulse Rate 60 Respiratory 22 Rate Blood Pressure 127/75 O2 Sat by Pulse 100 Oximetry (%) GENERAL: Awake, alert, and fully oriented, in no acute distress. HEAD: Normal with no signs of trauma. EYES: Pupils equal, round and reactive to light, extraocular movements intact, sclera anicteric, conjunctiva clear. No lid lag. EARS, NOSE, THROAT: Oropharynx clear without exudates. Dry mucous membranes. NECK: Normal range of motion, supple without lymphadenopathy, JVD, or masses. LUNGS: Poor inspiratory effort. Decreased breath sounds bilaterally. mild expiratory wheezing. No accessory muscle use. HEART: Regular rate and irregularly irregular rhythm, normal S1 and S2 without murmur, rub or gallop. ABDOMEN: Soft, Obese, nontender, not distended, normoactive bowel sounds, no guarding, no rebound, no masses. MUSCULOSKELETAL: No CVA tenderness. UPPER EXTREMITIES: No peripheral edema. LOWER EXTREMITIES: 1x1 ecchymosis of the left thigh. No peripheral edema. NEUROLOGICAL: Cranial nerves II-XII intact. Normal speech. motor strength 4/5 bilaterally with sensory intact throughout PSYCHIATRIC: Cooperative. Good eye contact. Appropriate mood and affect. SKIN: Warm, dry, normal turgor, no rashes or lesions noted, normal capillary refill. Laboratory Results - last 24 hr CBC, BMP 07/29/17 04:13 07/29/17 04:13 07/29/17 07/29/17 04:13 04:13 INR 2.97 H PTT (Actin FS) 54.9 H D 07/29/17 06:55 Urine Glucose (UA) 3+ H Urine Nitrite Negative Ur Leukocyte Esterase 2+ H Urine WBC (Auto) 78 IMAGES: HEAD CT (07/29/17): No acute pathology Knee X-Ray (07/29/17): No acute fractures. ASSESSMENT/PLAN: Patient is a 66 year old female who presented s/p fall on Coumadin and found to have a UTI. Patient admitted for further monitoring and management. S/P Fall on Coumadin -Head CT negative. Second Head CT 6-8 hours later for any changes -INR level therapeutic 2.97 -Neuro Checks Q4H for 24 hours -If second CT negative, may resume Coumadin UTI -U/A revealed 2+ LE with Urine WBC 78 -Patient does have a white count >16 but does not have a septic picture. -Has history of MRSA in urine -Will continue Ceftriaxone 1gm IVPB daily and Vancomycin 1000mg IVPB daily -IV NS @75mls/hr and will stop after 2 bags -Urine and blood cultures pending Sleep Apnea -Patient reports day time drowsiness and falling asleep. 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 Schaefer Atrial Fibrillation -Currently rate controlled -Continue Digoxin 0.25mg daily -Coumadin on hold and will resume if 2nd head CT negative -INR therapeutic Leukocytosis -Likely reactive and patient is on Prednisone -Will continue to monitor Diastolic CHF -In no acute exacerbation -Continue home medications Torsemide 40mg am CKD -At baseline -2 bags of NS @75mls/hr -Continue Ranexa 500mg BID -Continue to monitor BMP IDDMII w/ Neuropathy -Levemir 40 units in the am -ISS -BGM -Lyrica 100mg BID PRN COPD/Asthma -In no acute exacerbation -Continue Singulair 10mg daily -Continue Claritin 10mg daily -Continue Duo-Neb PRN HTN -Continue Torsemide 40mg daily -Continue to monitor BP HLD -On no medications -Will need to confirm medications CAD s/p Stent (2014) -Med rec does not show ASA but will sign out to medical team to confirm medications Lupus -Was taking MTX but stopped due to side effects Parkinson's Disease -Continue Carbidopa/Levodopa 25-100mg daily F/E/N -IV NS. Stop after one baf -Electrolytes wnl -Diabetic/sodium controlled diet Prophylaxis -High Risk. AC on hold due to recent fall and rule out bleed. Will resume Warfarin after head CT negative. -No GI required Disposition -Full code -Second Head CT pending/ Perla Brothers MD-[id number] Visit type - Emergency Visit Emergency Visit: Yes ED Registration Date: 07/29/17 Care time: The patient presented to the Emergency Department on the above date and was hospitalized for further evaluation of their emergent condition. - New Patient This patient is new to me today: Yes Date on this admission: 07/29/17 - Critical Care Critical Care patient: No Hospitalist Screening - Colonoscopy Questionnaire Colonoscopy Questionnaire: Colonoscopy Questionnaire - Patient: 50 - 75 years old and never had a screening colonoscopy: No History of colon or rectal polyps, or CA: No History of IBD, Crohn's disease or UC: No History of abdominal radiation therapy as a child: No - Relative: 1 with colon or rectal CA, or polyps at age 60 or younger: Unknown Colon or rectal CA diagnosed at age 45 or younger: Unknown Multiple relatives with colon or rectal CA: Unknown - Outcome: Screening Result: Negative Screen
--- NOTE | 2017-07-29 08:20 | EKG ---
Test Reason : Blood Pressure : / mmHG Vent. Rate : 059 BPM Atrial Rate : 059 BPM P-R Int : 158 ms QRS Dur : 086 ms QT Int : 412 ms P-R-T Axes : 021 025 003 degrees QTc Int : [address] ELEVATION, CONSIDER EARLY REPOLARIZATION, PERICARDITIS, OR INJURY NONSPECIFIC T WAVE ABNORMALITY ABNORMAL ECG WHEN COMPARED WITH ECG OF 21-JUN-2017 23:34, T WAVE INVERSION NO LONGER EVIDENT IN LATERAL LEADS QT HAS SHORTENED Confirmed by VICENTE MEZA, SIERRA ([id number]) on 07/29/2017 8:19:55 AM Referred By: Confirmed By:SIERRA ZHANG MD
[2017-07-29] MEDS ORDERED: CEFTRIAXONE 1 GM/50 ML BAG ONE (08:38)
[2017-07-29] MEDS: SODIUM CHLORIDE 1,000 ML IV SCH (08:42)
[2017-07-29] MEDS ORDERED: VANCOMYCIN 1 GRAM (PRE-DOCKED) 1,000 MG/250 ML BAG IVPB ONE (08:43)
--- NOTE | 2017-07-29 09:14 | PN ---
Teaching Attending Note Name of Resident: Perla Brothers ATTENDING PHYSICIAN STATEMENT I saw and evaluated the patient. I reviewed the resident's note and discussed the case with the resident. I agree with the resident's findings and plan as documented. SUBJECTIVE: This is a 66 year old woman with a history of HTN, hyperlipidemia, CAD, CABG and PCI, PAF, chronic diastolic heart failure, stage 3 CKD, type 2 DM , diabetic peripheral neuropathy, COPD, FIGUEROA, chronic hypoxic respiratory failure , CVA, Parkinson's, lupus, fibromyalgia, spinal stenosis, MV replacement with mechanical valve, who comes to the ED after awaking on the floor next to her bed. She believes she hit her head on a metal johana. She reports falling out of bed several times in the past. This time she developed a headache and was having difficulty walking, so she came to the ED. OBJECTIVE: Vital Signs Period Temp Pulse Resp BP Sys/Wise Pulse Ox Last 24 Hr 98.1 F 60 22 127/75 100 HEART: S1S2, RRR LUNGS: Decreased BS with wheezes ABDOMEN: Obese,soft, non-tender, non-distended, normal BS EXTREMITIES: No edema, ecchymosis on left thigh, abrasions on left knee Laboratory Tests 07/29/17 07/29/17 07/29/17 04:13 04:13 04:13 WBC 16.9 H D RBC 4.30 Hgb 13.0 Hct 38.8 MCV 90.3 MCH 30.3 MCHC 33.5 RDW 15.0 Plt Count 303 MPV 9.5 Neutrophils % 79.0 Lymphocytes % 12.1 D Monocytes % 7.9 Eosinophils % 0.2 D Basophils % 0.8 D PT with INR 33.60 H INR 2.97 H PTT (Actin FS) 54.9 H D Sodium Potassium Chloride Carbon Dioxide Anion Gap BUN Creatinine Creat Clearance w eGFR POC Glucometer Random Glucose Calcium Total Bilirubin AST ALT Alkaline Phosphatase Total Protein Albumin Urine Color Urine Appearance Urine pH Ur Specific [place] Urine Protein Urine Glucose (UA) Urine Ketones Urine Blood Urine Nitrite Urine Bilirubin Urine Urobilinogen Ur Leukocyte Esterase Urine WBC (Auto) Urine RBC (Auto) Ur Epithelial Cells 07/29/17 07/29/17 07/29/17 04:13 06:55 08:54 WBC RBC Hgb Hct MCV MCH MCHC RDW Plt Count MPV Neutrophils % Lymphocytes % Monocytes % Eosinophils % Basophils % PT with INR INR PTT (Actin FS) Sodium 136 Potassium 3.9 Chloride 100 Carbon Dioxide 30 Anion Gap 6 L BUN 32 H Creatinine 1.2 H Creat Clearance w eGFR 45.09 POC Glucometer [id number] Random Glucose 372 H* Calcium 8.8 Total Bilirubin 0.2 D AST 6 L ALT 17 Alkaline Phosphatase 144 H Total Protein 6.8 Albumin 3.6 Urine Color Ltyellow Urine Appearance Slcloudy Urine pH 7.0 D Ur Specific [place] 1.017 Urine Protein Negative Urine Glucose (UA) 3+ H Urine Ketones Negative Urine Blood Negative Urine Nitrite Negative Urine Bilirubin Negative Urine Urobilinogen Negative Ur Leukocyte Esterase 2+ H Urine WBC (Auto) 78 Urine RBC (Auto) 2 Ur Epithelial Cells Rare Home Medications Medication Instructions Recorded Albuterol 0.083% Nebulizer Brigitte 1 neb NEB QID 06/21/17 [Ventolin 0.083% Nebulizer Soln -] Bupropion HCl [Wellbutrin Xl] 300 mg PO DAILY 06/21/17 Carbidopa/Levodopa 1 each PO TID 06/21/17 [Carbidopa-Levodopa 25-100 Tab] Cholecalciferol (Vitamin D3) 1,000 unit PO DAILY 06/21/17 [Vitamin D -] Citalopram Hydrobromide [Celexa -] 10 mg PO DAILY 06/21/17 Digoxin [Lanoxin -] 0.25 mg PO DAILY 06/21/17 Ferrous Sulfate [Iron] 325 mg PO DAILY 06/21/17 Hypromellose 0.5% Opth Soln 1 drop OD QID 06/21/17 [Artificial Tears] Pantoprazole Sodium [Protonix] 40 mg PO DAILY 06/21/17 Pramipexole Di-HCl [Mirapex] 1.5 mg PO TID 06/21/17 Pregabalin [Lyrica] 25 mg PO BID 06/21/17 Ranolazine [Ranexa] 500 mg PO BID 06/21/17 Topiramate [Topamax] 150 mg PO BID 06/21/17 Torsemide [Demadex -] 20 mg PO HS 06/21/17 Verapamil HCl [Calan Sr] 240 mg PO DAILY 06/21/17 Warfarin Sodium [Coumadin] 9 mg PO HS 06/21/17 Triamcinolone 0.1% Cream 1 applic TP BID #60 gm 06/28/17 [Aristocort 0.1% Cream -] predniSONE [Deltasone -] 10 mg PO DAILY #100 tablet 06/28/17 Cetirizine HCl 10 mg PO BID 07/29/17 Insulin Glargine,Hum.rec.anlog 40 units SQ AM 07/29/17 [Lantus Solostar PEN (NF)] Insulin Lispro [Humalog] 0 unit SQ TID 07/29/17 Torsemide [Demadex] 40 mg PO AM 07/29/17 ASSESSMENT AND PLAN: This is a 66 year old woman with a history of HTN, hyperlipidemia, CAD, CABG and PCI, PAF, chronic diastolic heart failure, stage 3 CKD, type 2 DM, diabetic peripheral neuropathy, COPD, FIGUEROA, chronic hypoxic respiratory failure, CVA, Parkinson's, lupus, fibromyalgia, spinal stenosis, MV replacement with mechanical valve, who comes to the ED after awaking on the floor next to her bed. 1. s/p fall out of bed with head trauma - Head CT negative - will repeat 2. UTI - Has history of MRSA - Rocephin, Vancomycin given in ED - Follow up blood, urine cultures - ID consult 3. Paroxysmal atrial fibrillation - Currently in sinus rhythm - Continue Calan SR, Digoxin - Hold Coumadin until results of repeat head CT available 4. Mechanical mitral valve replacement - Hold Coumadin secondary to head trauma/headache until repeat head CT done ( INR 2.97 today) 5. HTN - Continue Calan SR, Demadex 6. Hyperlipidemia 7. Chronic diastolic heart failure - Stable - Continue Demadex 8. CAD, history of CABG and PCI - Continue Ranexa 9. Stage 3 CKD - Stable 10. Type 2 DM with peripheral neuropathy - Continue Lantus - Fingersticks with Novolog sliding scale - Continue Lyrica for neuropathy 11. COPD 12. FIGUEROA - Continue CPAP at night 13. Chronic hypoxic respiratory failure - Continue oxygen to maintain saturation > 90% 14. History of CVA 15. Lupus - Continue Prednisone 16. Parkinson's Disease - Continue Sinemet, Mirapex 17. Fibromyalgia - Continue Wellbutrin, Lyrica, Celexa 18. Spinal stenosis
[2017-07-29] MEDS ORDERED: INSULIN DETEMIR 100 UNITS/ML MDV SQ ONE ×2 (09:21→09:23)
[2017-07-29] MEDS: INSULIN DETEMIR 100 UNITS/ML MDV SQ SCH (09:28)
[2017-07-29] MEDS ORDERED: CITALOPRAM HYDROBROMIDE 10 MG TABLET (FP) PO SCH (10:00)
[2017-07-29] MEDS ORDERED: TOPIRAMATE 25 MG TABLET (FP) PO SCH (10:00)
[2017-07-29] MEDS: PREGABALIN 50 MG CAPSULE PO PRN ×3 (11:52→22:28)
[2017-07-29] MEDS: INSULIN SLIDING SCALE (NOVOLOG) 1 VIAL SQ SCH ×3 (11:55→21:17)
[2017-07-29] MEDS: LORATADINE 10 MG TABLET PO SCH (11:55)
[2017-07-29] MEDS: DIGOXIN 0.25 MG TABLET (FP) PO SCH (13:00)
[2017-07-29] MEDS: CITALOPRAM HYDROBROMIDE 20 MG TABLET (FP) PO SCH (13:00)
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
[2017-07-29] MEDS: CARBIDOPA/LEVODOPA 25/100 TABLET (FP) PO SCH ×2 (14:02→21:13)
--- NOTE | 2017-07-29 14:08 | PN ---
Progress Note (short form) - Note Progress Note: ID consult dictated imp/reccd 66 year old female multiple medical problems fell at home and hit head recent admission for urticaria history of copd followed by dr lopez on 10 mg prednisone daily reports recent pustules - on on thigh, one on buttock, one on abdomen- treated with po antibiotics- she does not know what has dysuria and urine is dark and smelly ?chills at home probable UTI has pyuria, no urine culture sent from ED blood cultures pending vanco/rocephin to continue have asked nurse to sent urine culture- may be low yeild history MVR recent MRSA in urine continue contact isolation Problem List - Problems (1) UTI (urinary tract infection) Code(s): N39.0 - URINARY TRACT INFECTION, SITE NOT SPECIFIED Qualifiers: Urinary tract infection type: acute cystitis Hematuria presence: without hematuria Qualified Code(s): N30.00 - Acute cystitis without hematuria (2) MRSA (methicillin resistant Staphylococcus aureus) colonization Code(s): Z22.322 - CARRIER OR SUSPECTED CARRIER OF METHICILLIN RESIS STAPH (3) Mitral valve replaced Code(s): Z95.2 - PRESENCE OF PROSTHETIC HEART VALVE
--- NOTE | 2017-07-29 14:46 | CONS ---
DATE OF CONSULTATION: 07/29/2017 REQUESTED BY: Tucker Toussaint MD This is a 66-year-old woman, extensive past medical history, who apparently fell at home. She has 2 aides but she stays by herself at night. She fell and hit her head and she came to the emergency room for further evaluation. She reported dysuria in the ER as well. She had a urinalysis checked, which had pyuria. She was noted to have an elevated white count. As well, she has been on 10 mg of prednisone as prescribed by her machine shorthand reporter, which she has been taking daily except for the last 2 days. She had a recent admission in June for urticaria and is following up with the offal worker, Dr. Sanchez. I am asked to see her for leukocytosis and possible UTI. The patient complains of dysuria. She also reports she has a recent pustular outbreak. She is able to show me 3 remaining scars on her body, one on her abdomen, one on her buttock and one on her thigh, and states she was given antibiotics for these in the recent past. She does not know what she took. Past medical history is notable for hypertension, hyperlipidemia, Parkinson disease, lupus, fibromyalgia, diabetes, COPD on 2 L oxygen, sleep apnea, on CPAP, atrial fibrillation, on Coumadin, anemia, asthma, glaucoma, CVA, spinal stenosis, coronary artery disease. Surgical history is notable for CABG and mitral valve replacement in 2006. She has 2 stents. SOCIAL HISTORY: She lives alone. She has 2 aides. She stopped smoking 10 years ago. There is no history of any alcohol or substance use. Her family history is notable for coronary artery disease in her father. She is allergic to LACTOSE, BETA BLOCKERS, IODINE, and SHELLFISH. Her medicines at home include cetirizine, insulin, Artificial Tears, ferrous sulfate, Lanoxin, Celexa, vitamin D, carbidopa/levodopa, Wellbutrin, albuterol inhaler, insulin, Deltasone, Coumadin, Calan, triamcinolone, Demadex, Topamax, Ranexa, Lyrica, Mirapex, Protonix. Review of systems is as per HPI. She complains of dysuria. She has had some dizziness at home. She had a fall and hit her head. She reports she always feels cold at night. She has had no fevers. PHYSICAL EXAMINATION: General: She is awake and alert, in no acute distress. Vital Signs: Temperature is 98.1. Pulse is 60. Blood pressure 127/75. Respiratory rate 22. Saturating 100%. HEENT: She is normocephalic. Eyes are anicteric. Neck: Supple. Lungs: Clear to auscultation. Heart: Regular rate and rhythm. Abdomen: Soft, nontender. She has no suprapubic or CVA tenderness. Extremities: Without edema. White count is 16.9, hemoglobin 13, platelets are 303, INR is 2.9. BUN 32, creatinine 1.2. Her urinalysis has 2+ leukocytes with 78 white cells, and her blood cultures are pending. She had apparent urine culture in June that grew MRSA. She has had imaging of her head due to the fall, and this is being further evaluated by the primary team. In summary, this is a 66-year-old woman, history of recent MRSA in her urine, admitted status post a fall. She also has a history of mitral valve replacement. She has been started on vancomycin and Rocephin for UTI. Would suggest we continue this. I have asked the nurse to send a urine culture. Would continue contact isolation at this time. Further recommendations to follow. PRIETO FLEMING M.D. [id number] MTDD
[2017-07-29] MEDS ORDERED: WARFARIN NA 7.5 MG TABLET (FP) PO SCH (18:36)
[2017-07-29] MEDS ORDERED: TOPIRAMATE 100 MG TABLET PO SCH (18:45)
[2017-07-29] MEDS: WARFARIN NA 3 MG TABLET PO SCH (18:45)
[2017-07-29] MEDS: RANOLAZINE E.R. 500 MG TABLET (FP) PO SCH (21:11)
[2017-07-29] MEDS: MELATONIN 1 MG TABLET PO SCH (21:12)
[2017-07-29] MEDS: TOPIRAMATE 100 MG TABLET PO SCH (21:12)
[2017-07-29] MEDS: TRIAMCINOLONE ACET 0.1% CREAM 15 GM TUBE TP SCH (21:13)
[2017-07-29] MEDS ORDERED: PRAMIPEXOLE DIHYDROCHLORIDE 1 MG TABLET PO SCH (22:00)
[2017-07-29] MEDS ORDERED: PRAMIPEXOLE DIHYDROCHLORIDE PO SCH (22:00)
[2017-07-29] MEDS ORDERED: PRAMIPEXOLE DIHYDROCHLORIDE 0.5 MG TABLET PO SCH (22:00)
[2017-07-29] MEDS ORDERED: predniSONE 10 MG TABLET (UD) PO SCH (22:00)
[2017-07-30] MEDS: SODIUM CHLORIDE 1,000 ML IV SCH ×2 (02:46→11:13)
[2017-07-30] MEDS: CARBIDOPA/LEVODOPA 25/100 TABLET (FP) PO SCH ×3 (06:27→21:15)
[2017-07-30] MEDS: TORSEMIDE 20 MG TABLET (FP) PO SCH (06:27)
[2017-07-30] MEDS: INSULIN SLIDING SCALE (NOVOLOG) 1 VIAL SQ SCH ×4 (06:30→21:16)
[2017-07-30] MEDS: INSULIN DETEMIR 100 UNITS/ML MDV SQ SCH (06:31)
[2017-07-30] MEDS: PREGABALIN 50 MG CAPSULE PO PRN (06:36)
[2017-07-30] MEDS ORDERED: PATIENT'S OWN MEDICATION (NON-FORMULARY) (Insulin Glargine,Hum.Rec.Anlog 40 UNITS) SQ SCH (07:00)
[2017-07-30 07:15] LABS: HEMATOCRIT 37.1 % (32.4-45.2); HEMOGLOBIN 12.3 GM/dL (10.7-15.3); MCHC 33.2 g/dl (32.0-36.0); MEAN CELL VOLUME 90.3 fl (80-96); MEAN PLT VOLUME 9.7 fl (7.5-11.1); PLATELET COUNT 278 K/MM3 (134-434); RBC 4.11 M/mm3 (3.60-5.2); RDW 15.3 % (11.6-15.6); WHITE BLOOD COUNT 15.8 K/mm3 (4.0-10.0)
[2017-07-30 07:27] LABS: INR 2.82 (0.82-1.09); PROTHROMBIN TIME (PATIENT) 31.9 SEC (9.7-13.0)
[2017-07-30 07:53] LABS: ALBUMIN 3.1 g/dl (3.4-5.0); ANION GAP 5 (8-16); BLOOD UREA NITROGEN 23 mg/dL (7-18); CALCIUM 8.4 mg/dL (8.5-10.1); CHLORIDE 110 mmol/L (98-107); CO2 27 mmol/L (21-32); GLUCOSE,RANDOM 180 mg/dL (74-106); POTASSIUM 4.4 mmol/L (3.5-5.1); SGOT/AST 6 U/L (15-37); SGPT/ALT 13 U/L (12-78); SODIUM 142 mmol/L (136-145)
[2017-07-30 07:56] LABS: ALK PHOS 71 U/L (45-117); BILIRUBIN,TOTAL 0.3 mg/dL (0.2-1.0); TOT PROT 5.9 g/dl (6.4-8.2)
--- NOTE | 2017-07-30 08:43 | PN ---
Progress Note, Physician - Current Medication List Current Medications: Active Medications Albuterol/Ipratropium (Duoneb -) 1 amp NEB Q6H PRN PRN Reason: SHORTNESS OF BREATH Bupropion HCl (Wellbutrin Xl -) 300 mg PO DAILY [facility] Last Admin: 07/29/17 19:45 Dose: 300 mg Carbidopa/Levodopa (Sinemet 25/100 -) 1 each PO TID [facility] Last Admin: 07/30/17 06:27 Dose: 1 each Citalopram Hydrobromide (Celexa -) 10 mg PO DAILY [facility] Last Admin: 07/29/17 13:00 Dose: 10 mg Digoxin (Lanoxin -) 0.25 mg PO DAILY [facility] Last Admin: 07/29/17 13:00 Dose: 0.25 mg Sodium Chloride (Normal Saline -) 1,000 mls @ 75 mls/hr IV ASDIR [facility] Stop: 07/30/17 21:34 Last Admin: 07/30/17 02:46 Dose: 75 mls/hr Ceftriaxone Sodium 1 gm/ (Dextrose) 50 mls @ 100 mls/hr IVPB DAILY [facility] PRN Reason: Protocol Vancomycin HCl 1,000 mg/ (Dextrose) 250 mls @ 166.667 mls/hr IVPB DAILY@1000 CHRIS PRN Reason: Protocol Insulin Aspart (Novolog Vial Sliding Scale -) 1 vial SQ ACHS [facility] PRN Reason: Protocol Last Admin: 07/30/17 06:30 Dose: 2 units Insulin Detemir (Levemir Vial) 40 units SQ AM [facility] Last Admin: 07/30/17 06:31 Dose: 40 unit Loratadine (Claritin -) 10 mg PO DAILY [facility] Last Admin: 07/29/17 11:55 Dose: 10 mg Melatonin (Melatonin) 3 mg PO HS [facility] Last Admin: 07/29/17 21:12 Dose: 3 mg Pramipexole Dihydrochloride (Mirapex -) 0.5 mg PO BID@1000,1630 [facility] Pramipexole Dihydrochloride (Mirapex -) 1.5 mg PO HS [facility] Prednisone (Deltasone -) 10 mg PO DAILY [facility] Pregabalin (Lyrica -) 100 mg PO BID PRN PRN Reason: PAIN LEVEL 1 - 3 Last Admin: 07/30/17 06:36 Dose: 100 mg Ranolazine (Ranexa -) 500 mg PO BID [facility] Last Admin: 07/29/17 21:11 Dose: 500 mg Topiramate (Topamax -) 150 mg PO BID [facility] Last Admin: 07/29/17 21:12 Dose: 150 mg Torsemide (Demadex -) 40 mg PO AM [facility] Last Admin: 07/30/17 06:27 Dose: 40 mg Triamcinolone Acetonide (Aristocort 0.1% Cream -) 1 applic TP BID [facility] Last Admin: 07/29/17 21:13 Dose: 1 applic Verapamil HCl (Calan Sr -) 240 mg PO DAILY [facility] Warfarin Sodium 10 mg/ (Warfarin Sodium 1 mg) 11 mg PO Mo@1800 [facility] Warfarin Sodium (Coumadin -) 9 mg PO SuTuWeThFrSa@1800 [facility] Last Admin: 07/29/17 18:45 Dose: 9 mg - Objective Vital Signs: Vital Signs Temperature 98.1 F 07/30/17 06:00 Pulse Rate 56 L 07/30/17 06:00 Respiratory Rate 20 07/30/17 06:00 Blood Pressure 121/58 07/30/17 06:00 O2 Sat by Pulse Oximetry (%) 99 07/29/17 21:00 Labs: CBC, BMP 07/30/17 05:35 07/30/17 05:35 INR, PTT INR 2.82 (0.82-1.09) H 07/30/17 05:35 Problem List - Problems (1) Head trauma Assessment/Plan: S/P Fall on Coumadin -Head CT negative. Second Head CT 6-8 hours later for any changes -INR level therapeutic 2.97 -Neuro Checks Q4H for 24 hours -If second CT negative, may resume Coumadin Code(s): S09.90XA - UNSPECIFIED INJURY OF HEAD, INITIAL ENCOUNTER (2) Afib Assessment/Plan: -Currently rate controlled -Continue Digoxin 0.25mg daily -Coumadin on hold and will resume if 2nd head CT negative -INR therapeutic Code(s): I48.91 - UNSPECIFIED ATRIAL FIBRILLATION Qualifiers: Atrial fibrillation type: paroxysmal Qualified Code(s): I48.0 - Paroxysmal atrial fibrillation (3) CAD (coronary artery disease) Assessment/Plan: -no cp -same meds Code(s): I25.10 - ATHSCL HEART DISEASE OF [place] CORONARY ARTERY W/O ANG PCTRS (4) COPD (chronic obstructive pulmonary disease) Assessment/Plan: -In no acute exacerbation -Continue Singulair 10mg daily -Continue Claritin 10mg daily -Continue Duo-Neb PRN Code(s): J44.9 - CHRONIC OBSTRUCTIVE PULMONARY DISEASE, UNSPECIFIED Qualifiers: COPD type: COPD with acute exacerbation Qualified Code(s): J44.1 - Chronic obstructive pulmonary disease with (acute) exacerbation (5) Diabetes Assessment/Plan: -Levemir 40 units in the am -ISS -BGM -Lyrica 100mg BID PRN Code(s): E11.9 - TYPE 2 DIABETES MELLITUS WITHOUT COMPLICATIONS Qualifiers: Diabetes mellitus type: type 2 Diabetes mellitus complication status: with neurologic complications (6) Lupus Code(s): L93.0 - DISCOID LUPUS ERYTHEMATOSUS (7) S/P MVR (mitral valve repair) Code(s): Z98.890 - OTHER SPECIFIED POSTPROCEDURAL STATES (8) UTI (lower urinary tract infection) Assessment/Plan: -U/A revealed 2+ LE with Urine WBC 78 -Patient does have a white count >16 but does not have a septic picture. -Has history of MRSA in urine -Will continue Ceftriaxone 1gm IVPB daily and Vancomycin 1000mg IVPB daily -IV NS @75mls/hr and will stop after 2 bags -Urine and blood cultures pending Code(s): N39.0 - URINARY TRACT INFECTION, SITE NOT SPECIFIED (9) Sleep apnea Assessment/Plan: -Patient reports day time drowsiness and falling asleep. -Currently on CPAP at night and does have a senior safety management consultant, however, she has not seen him since her last admission -I suspect patient abruptly fell asleep last night due to sleep apnea, which caused her to fall -PULM consult placed with Dr. Schaefer Code(s): G47.30 - SLEEP APNEA, UNSPECIFIED
[2017-07-30] MEDS ORDERED: predniSONE 10 MG TABLET (UD) PO SCH (10:00)
[2017-07-30] MEDS ORDERED: PT OWN MED DRAWER 7, Y5N ONE ×2 (10:56→16:40)
[2017-07-30] MEDS ORDERED: cefTRIAXone SODIUM 1 GM VIAL ONE (10:56)
[2017-07-30] MEDS ORDERED: DEXTROSE 5%-WATER - 50 ML IVPB ONE (10:56)
[2017-07-30] MEDS: LORATADINE 10 MG TABLET PO SCH (11:13)
[2017-07-30] MEDS: VERAPAMIL HCL 240 MG E.R. TABLET (FP) PO SCH (11:13)
[2017-07-30] MEDS: CITALOPRAM HYDROBROMIDE 20 MG TABLET (FP) PO SCH (11:13)
[2017-07-30] MEDS: RANOLAZINE E.R. 500 MG TABLET (FP) PO SCH ×2 (11:13→21:13)
[2017-07-30] MEDS: CEFTRIAXONE 1 GM in DEXTROSE 5%-WATER - 50 ML IVPB SCH (11:14)
[2017-07-30] MEDS: DIGOXIN 0.25 MG TABLET (FP) PO SCH (11:14)
[2017-07-30] MEDS: PRAMIPEXOLE DIHYDROCHLORIDE 0.5 MG TABLET PO SCH ×3 (11:15→21:15)
[2017-07-30] MEDS: TOPIRAMATE 100 MG TABLET PO SCH ×2 (11:15→21:15)
[2017-07-30] MEDS: TRIAMCINOLONE ACET 0.1% CREAM 15 GM TUBE TP SCH ×2 (11:16→21:18)
--- NOTE | 2017-07-30 12:53 | PN ---
Progress Note, Physician History of Present Illness: PULMONARY ALERT,COMFORTABLE,-RESP DISTRESS - Current Medication List Current Medications: Active Medications Albuterol/Ipratropium (Duoneb -) 1 amp NEB Q6H PRN PRN Reason: SHORTNESS OF BREATH Bupropion HCl (Wellbutrin Xl -) 300 mg PO DAILY [facility] Last Admin: 07/30/17 11:15 Dose: 300 mg Carbidopa/Levodopa (Sinemet 25/100 -) 1 each PO TID [facility] Last Admin: 07/30/17 06:27 Dose: 1 each Citalopram Hydrobromide (Celexa -) 10 mg PO DAILY [facility] Last Admin: 07/30/17 11:13 Dose: 10 mg Digoxin (Lanoxin -) 0.25 mg PO DAILY [facility] Last Admin: 07/30/17 11:14 Dose: 0.25 mg Sodium Chloride (Normal Saline -) 1,000 mls @ 75 mls/hr IV ASDIR [facility] Stop: 07/30/17 21:34 Last Admin: 07/30/17 11:13 Dose: Not Given Ceftriaxone Sodium 1 gm/ (Dextrose) 50 mls @ 100 mls/hr IVPB DAILY [facility] PRN Reason: Protocol Last Admin: 07/30/17 11:14 Dose: 100 mls/hr Vancomycin HCl 1,000 mg/ (Dextrose) 250 mls @ 166.667 mls/hr IVPB DAILY@1000 [facility] PRN Reason: Protocol Insulin Aspart (Novolog Vial Sliding Scale -) 1 vial SQ ACHS [facility] PRN Reason: Protocol Last Admin: 07/30/17 12:02 Dose: 2 units Insulin Detemir (Levemir Vial) 40 units SQ AM [facility] Last Admin: 07/30/17 06:31 Dose: 40 unit Loratadine (Claritin -) 10 mg PO DAILY [facility] Last Admin: 07/30/17 11:13 Dose: 10 mg Melatonin (Melatonin) 3 mg PO HS [facility] Last Admin: 07/29/17 21:12 Dose: 3 mg Pramipexole Dihydrochloride (Mirapex -) 0.5 mg PO BID@1000,1630 [facility] Last Admin: 07/30/17 11:15 Dose: 0.5 mg Pramipexole Dihydrochloride (Mirapex -) 1.5 mg PO HS [facility] Prednisone (Deltasone -) 10 mg PO DAILY [facility] Pregabalin (Lyrica -) 100 mg PO BID PRN PRN Reason: PAIN LEVEL 1 - 3 Last Admin: 07/30/17 06:36 Dose: 100 mg Ranolazine (Ranexa -) 500 mg PO BID [facility] Last Admin: 07/30/17 11:13 Dose: 500 mg Topiramate (Topamax -) 150 mg PO BID [facility] Last Admin: 07/30/17 11:15 Dose: 150 mg Torsemide (Demadex -) 40 mg PO AM [facility] Last Admin: 07/30/17 06:27 Dose: 40 mg Triamcinolone Acetonide (Aristocort 0.1% Cream -) 1 applic TP BID [facility] Last Admin: 07/30/17 11:16 Dose: 1 applic Verapamil HCl (Calan Sr -) 240 mg PO DAILY [facility] Last Admin: 07/30/17 11:13 Dose: 240 mg Warfarin Sodium 10 mg/ (Warfarin Sodium 1 mg) 11 mg PO Mo@1800 [facility] Warfarin Sodium (Coumadin -) 9 mg PO SuTuWeThFrSa@1800 [facility] Last Admin: 07/29/17 18:45 Dose: 9 mg - Objective Vital Signs: Vital Signs Temperature 98.1 F 07/30/17 06:00 Pulse Rate 61 07/30/17 11:14 Respiratory Rate 20 07/30/17 06:00 Blood Pressure 121/58 07/30/17 06:00 O2 Sat by Pulse Oximetry (%) 99 07/29/17 21:00 Constitutional: Yes: Well Nourished, Calm Eyes: Yes: WNL HENT: Yes: Nasal Congestion Neck: Yes: WNL Cardiovascular: Yes: S1, S2 Respiratory: Yes: Diminished Gastrointestinal: Yes: Normal Bowel Sounds, Soft Extremities: Yes: WNL Edema: No Labs: CBC, BMP 07/30/17 05:35 07/30/17 05:35 INR, PTT INR 2.82 (0.82-1.09) H 07/30/17 05:35 Assessment/Plan - Problems (1) Afib Code(s): I48.91 - UNSPECIFIED ATRIAL FIBRILLATION Qualifiers: Atrial fibrillation type: paroxysmal Qualified Code(s): I48.0 - Paroxysmal atrial fibrillation (2) CAD (coronary artery disease) Code(s): I25.10 - ATHSCL HEART DISEASE OF [place] CORONARY ARTERY W/O ANG PCTRS (3) CHF (congestive heart failure) Code(s): I50.9 - HEART FAILURE, UNSPECIFIED (4) Diabetes mellitus, insulin dependent (IDDM), uncontrolled Code(s): E10.65 - TYPE 1 DIABETES MELLITUS WITH HYPERGLYCEMIA (5) Dyslipidemia Code(s): E78.5 - HYPERLIPIDEMIA, UNSPECIFIED (7) HTN (hypertension) Code(s): I10 - ESSENTIAL (PRIMARY) HYPERTENSION Qualifiers: Hypertension type: essential hypertension Qualified Code(s): I10 - Essential (primary) hypertension (8) Hyperlipidemia associated with type 2 diabetes mellitus Code(s): E11.69 - TYPE 2 DIABETES MELLITUS WITH OTHER SPECIFIED COMPLICATION; E78.5 - HYPERLIPIDEMIA, UNSPECIFIED (9) IDDM (insulin dependent diabetes mellitus) Code(s): E11.9 - TYPE 2 DIABETES MELLITUS WITHOUT COMPLICATIONS; Z79.4 - AUDIT INTERN (CURRENT) USE OF INSULIN (10) Lupus Code(s): L93.0 - DISCOID LUPUS ERYTHEMATOSUS (11) Mitral valve replaced Code(s): Z95.2 - PRESENCE OF PROSTHETIC HEART VALVE (12) FIGUEROA (obstructive sleep apnea) Code(s): G47.33 - OBSTRUCTIVE SLEEP APNEA (ADULT) (PEDIATRIC) (13) S/P MVR (mitral valve repair) Code(s): Z98.890 - OTHER SPECIFIED POSTPROCEDURAL STATES (14) SLE (systemic lupus erythematosus) Code(s): M32.9 - SYSTEMIC LUPUS ERYTHEMATOSUS, UNSPECIFIED (15) Type 2 diabetes mellitus with hyperosmolarity without nonketotic hyperglycemic-hyperosmolar coma ([facility]) Code(s): E11.00 - TYPE 2 DIAB W HYPROSM W/O NONKET HYPRGLY-HYPROS COMA ([facility]) (16) Unsteady gait Code(s): R26.81 - UNSTEADINESS ON FEET Assessment/Plan Inhaled bronchodilators O2 to maintain saturation re-titration after discharge to ensure optimal PAP therapy after discharge Sleep hygiene practices to be discussed prior/after D/C Melatonin Alee IVERSON
[2017-07-30] MEDS: VANCOMYCIN 1,000 MG in DEXTROSE 5%-WATER - 250 ML IVPB SCH (13:14)
--- NOTE | 2017-07-30 13:15 | PN ---
Progress Note (short form) - Note Progress Note: still with dysuria still morenita dizziness breathing improved Vital Signs Period Temp Pulse Resp BP Sys/Wise Pulse Ox Last 24 Hr 98.1 F-98.6 F 56-66 16-20 121-160/56-74 99-99 cor-rrr llungs clear abd soft,nt no supra pubic pain ext no edema CBC, BMP 07/30/17 05:35 07/30/17 05:35 Microbiology 07/29/17 08:23 Blood - Peripheral Venous Blood Culture - Preliminary NO GROWTH OBTAINED AFTER 24 HOURS, INCUBATION TO CONTINUE FOR 4 DAYS. 07/29/17 08:23 Blood - Peripheral Venous Blood Culture - Preliminary NO GROWTH OBTAINED AFTER 24 HOURS, INCUBATION TO CONTINUE FOR 4 DAYS. urine culture pending a/p probable UTI has pyuria, urine culture pending blood cultures pending vanco/rocephin to continue history MVR recent MRSA in urine continue contact isolation Problem List - Problems (1) UTI (urinary tract infection) Code(s): N39.0 - URINARY TRACT INFECTION, SITE NOT SPECIFIED Qualifiers: Urinary tract infection type: acute cystitis Hematuria presence: without hematuria Qualified Code(s): N30.00 - Acute cystitis without hematuria (2) MRSA (methicillin resistant Staphylococcus aureus) colonization Code(s): Z22.322 - CARRIER OR SUSPECTED CARRIER OF METHICILLIN RESIS STAPH (3) Mitral valve replaced Code(s): Z95.2 - PRESENCE OF PROSTHETIC HEART VALVE
[2017-07-30] MEDS: ACETAMINOPHEN 325 MG TABLET (FP) PO PRN (15:55)
[2017-07-30] MEDS ORDERED: WARFARIN NA 10 MG TABLET (FP) ONE (17:02)
[2017-07-30] MEDS ORDERED: WARFARIN NA 1 MG TABLET (FP) ONE (17:02)
[2017-07-30] MEDS ORDERED: WARFARIN NA 7.5 MG TABLET (FP) PO SCH ×2 (18:00→18:08)
[2017-07-30] MEDS ORDERED: WARFARIN NA 10 MG, WARFARIN NA 1 MG PO SCH (18:00)
[2017-07-30] MEDS: ALBUTEROL SO4 2.5/IPRATROPIUM 0.5 INH SOL 3 ML VIAL.NEB. NEB PRN (20:19)
[2017-07-30] MEDS: MELATONIN 1 MG TABLET PO SCH (21:18)
[2017-07-31] MEDS: CARBIDOPA/LEVODOPA 25/100 TABLET (FP) PO SCH ×3 (05:57→22:23)
[2017-07-31] MEDS: TORSEMIDE 20 MG TABLET (FP) PO SCH (06:08)
[2017-07-31] MEDS: INSULIN DETEMIR 100 UNITS/ML MDV SQ SCH (06:12)
[2017-07-31] MEDS: INSULIN SLIDING SCALE (NOVOLOG) 1 VIAL SQ SCH ×4 (06:13→22:33)
[2017-07-31] MEDS: ALBUTEROL SO4 2.5/IPRATROPIUM 0.5 INH SOL 3 ML VIAL.NEB. NEB PRN ×2 (06:48→20:30)
[2017-07-31 08:18] LABS: HEMATOCRIT 41.8 % (32.4-45.2); HEMOGLOBIN 13.5 GM/dL (10.7-15.3); MCH 29.6 pg (25.7-33.7); MCHC 32.2 g/dl (32.0-36.0); MEAN CELL VOLUME 91.9 fl (80-96); MEAN PLT VOLUME 9.5 fl (7.5-11.1); PLATELET COUNT 273 K/MM3 (134-434); RBC 4.55 M/mm3 (3.60-5.2); RDW 15.8 % (11.6-15.6)
[2017-07-31 08:37] LABS: INR 3.19 (0.82-1.09)
[2017-07-31 08:54] LABS: ALBUMIN 3.4 g/dl (3.4-5.0); ALK PHOS 85 U/L (45-117); ANION GAP 9 (8-16); BILIRUBIN,TOTAL 0.3 mg/dL (0.2-1.0); BLOOD UREA NITROGEN 26 mg/dL (7-18); CALCIUM 8.8 mg/dL (8.5-10.1); CHLORIDE 107 mmol/L (98-107); CO2 26 mmol/L (21-32); CREATININE 1.1 mg/dL (0.55-1.02); GLUCOSE,RANDOM 179 mg/dL (74-106); POTASSIUM 3.8 mmol/L (3.5-5.1); SGOT/AST 9 U/L (15-37); SGPT/ALT 8 U/L (12-78); SODIUM 142 mmol/L (136-145); TOT PROT 6.8 g/dl (6.4-8.2)
--- NOTE | 2017-07-31 09:02 | PN ---
Progress Note, Physician - Current Medication List Current Medications: Active Medications Acetaminophen (Tylenol -) 650 mg PO Q4H PRN PRN Reason: PAIN LEVEL 1-5 Last Admin: 07/30/17 15:55 Dose: 650 mg Albuterol/Ipratropium (Duoneb -) 1 amp NEB Q6H PRN PRN Reason: SHORTNESS OF BREATH Last Admin: 07/31/17 06:48 Dose: 1 amp Bupropion HCl (Wellbutrin Xl -) 300 mg PO DAILY [facility] Last Admin: 07/30/17 11:15 Dose: 300 mg Carbidopa/Levodopa (Sinemet 25/100 -) 1 each PO TID [facility] Last Admin: 07/31/17 05:57 Dose: 1 each Citalopram Hydrobromide (Celexa -) 10 mg PO DAILY [facility] Last Admin: 07/30/17 11:13 Dose: 10 mg Digoxin (Lanoxin -) 0.25 mg PO DAILY [facility] Last Admin: 07/30/17 11:14 Dose: 0.25 mg Ceftriaxone Sodium 1 gm/ (Dextrose) 50 mls @ 100 mls/hr IVPB DAILY [facility] PRN Reason: Protocol Last Admin: 07/30/17 11:14 Dose: 100 mls/hr Vancomycin HCl 1,000 mg/ (Dextrose) 250 mls @ 166.667 mls/hr IVPB DAILY@1000 [facility] PRN Reason: Protocol Last Admin: 07/30/17 13:14 Dose: 166.667 mls/hr Insulin Aspart (Novolog Vial Sliding Scale -) 1 vial SQ ACHS [facility] PRN Reason: Protocol Last Admin: 07/31/17 06:13 Dose: 2 units Insulin Detemir (Levemir Vial) 40 units SQ AM [facility] Last Admin: 07/31/17 06:12 Dose: 40 unit Loratadine (Claritin -) 10 mg PO DAILY [facility] Last Admin: 07/30/17 11:13 Dose: 10 mg Melatonin (Melatonin) 3 mg PO HS [facility] Last Admin: 07/30/17 21:18 Dose: 3 mg Pramipexole Dihydrochloride (Mirapex -) 0.5 mg PO BID@1000,1630 [facility] Last Admin: 07/30/17 16:58 Dose: 0.5 mg Pramipexole Dihydrochloride (Mirapex -) 1.5 mg PO HS [facility] Last Admin: 07/30/17 21:15 Dose: 1.5 mg Prednisone (Deltasone -) 10 mg PO DAILY [facility] Pregabalin (Lyrica -) 100 mg PO BID PRN PRN Reason: PAIN LEVEL 1 - 3 Last Admin: 07/30/17 06:36 Dose: 100 mg Ranolazine (Ranexa -) 500 mg PO BID [facility] Last Admin: 07/30/17 21:13 Dose: 500 mg Topiramate (Topamax -) 150 mg PO BID [facility] Last Admin: 07/30/17 21:15 Dose: 150 mg Torsemide (Demadex -) 40 mg PO AM [facility] Last Admin: 07/31/17 06:08 Dose: 40 mg Triamcinolone Acetonide (Aristocort 0.1% Cream -) 1 applic TP BID [facility] Last Admin: 07/30/17 21:18 Dose: 1 applic Verapamil HCl (Calan Sr -) 240 mg PO DAILY [facility] Last Admin: 07/30/17 11:13 Dose: 240 mg Warfarin Sodium 10 mg/ (Warfarin Sodium 1 mg) 11 mg PO Mo@1800 [facility] Last Admin: 07/30/17 17:04 Dose: 11 mg Warfarin Sodium (Coumadin -) 9 mg PO SuTuWeThFrSa@1800 [facility] Last Admin: 07/29/17 18:45 Dose: 9 mg - Objective Vital Signs: Vital Signs Temperature 98.7 F 07/31/17 06:00 Pulse Rate 81 07/31/17 06:00 Respiratory Rate 20 07/31/17 06:00 Blood Pressure 137/52 07/31/17 06:00 O2 Sat by Pulse Oximetry (%) 96 07/31/17 00:15 Cardiovascular: Yes: S1, S2 Respiratory: Yes: Diminished, On Nasal O2, Rhonchi Gastrointestinal: Yes: Normal Bowel Sounds, Soft Labs: CBC, BMP 07/31/17 07:36 INR, PTT INR 2.82 (0.82-1.09) H 07/30/17 05:35 Problem List - Problems (1) Head trauma Assessment/Plan: S/P Fall on Coumadin -Head CT negative. Second Head CT 6-8 hours later for any changes -INR level therapeutic 2.97 -Neuro Checks Q4H for 24 hours -If second CT negative, may resume Coumadin Code(s): S09.90XA - UNSPECIFIED INJURY OF HEAD, INITIAL ENCOUNTER (2) Afib Assessment/Plan: -Currently rate controlled -Continue Digoxin 0.25mg daily -Coumadin on hold and will resume if 2nd head CT negative -INR therapeutic Code(s): I48.91 - UNSPECIFIED ATRIAL FIBRILLATION Qualifiers: Atrial fibrillation type: paroxysmal Qualified Code(s): I48.0 - Paroxysmal atrial fibrillation (3) CAD (coronary artery disease) Assessment/Plan: -no cp -same meds Code(s): I25.10 - ATHSCL HEART DISEASE OF [place] CORONARY ARTERY W/O ANG PCTRS (4) COPD (chronic obstructive pulmonary disease) Assessment/Plan: -SOB YESTERDAI -CXR -Continue Singulair 10mg daily -Continue Claritin 10mg daily -Continue Duo-Neb PRN -PULM CONCULT Code(s): J44.9 - CHRONIC OBSTRUCTIVE PULMONARY DISEASE, UNSPECIFIED Qualifiers: COPD type: COPD with acute exacerbation Qualified Code(s): J44.1 - Chronic obstructive pulmonary disease with (acute) exacerbation (5) Diabetes Assessment/Plan: -Levemir 40 units in the am -ISS -BGM -Lyrica 100mg BID PRN Code(s): E11.9 - TYPE 2 DIABETES MELLITUS WITHOUT COMPLICATIONS Qualifiers: Diabetes mellitus type: type 2 Diabetes mellitus complication status: with neurologic complications (6) Lupus Code(s): L93.0 - DISCOID LUPUS ERYTHEMATOSUS (7) S/P MVR (mitral valve repair) Code(s): Z98.890 - OTHER SPECIFIED POSTPROCEDURAL STATES (8) UTI (lower urinary tract infection) Assessment/Plan: -U/A revealed 2+ LE with Urine WBC 78 -Patient does have a white count >16 but does not have a septic picture. -Has history of MRSA in urine -Will continue Ceftriaxone 1gm IVPB daily and Vancomycin 1000mg IVPB daily -IV NS @75mls/hr and will stop after 2 bags -Urine and blood cultures pending Code(s): N39.0 - URINARY TRACT INFECTION, SITE NOT SPECIFIED (9) Sleep apnea Assessment/Plan: -Patient reports day time drowsiness and falling asleep. -Currently on CPAP at night and does have a internet marketing strategist, however, she has not seen him since her last admission -I suspect patient abruptly fell asleep last night due to sleep apnea, which caused her to fall -PULM consult placed with Dr. Schaefer Code(s): G47.30 - SLEEP APNEA, UNSPECIFIED (10) Retention, urine Assessment/Plan: -CATH PRN Code(s): R33.9 - RETENTION OF URINE, UNSPECIFIED
--- NOTE | 2017-07-31 10:08 | PN ---
Progress Note (short form) - Note Progress Note: Resting in NAD. No acute events overnight. Intake & Output 07/28/17 07/29/17 07/30/17 07/31/17 23:59 23:59 23:59 23:59 Intake Total 925 2290 900 Balance 925 2290 900 Weight 201 lb 199 lb 3.2 oz 204 lb Last Vital Signs Temp Pulse Resp BP Pulse Ox 98.7 F 81 20 137/52 96 07/31/17 06:00 07/31/17 06:00 07/31/17 06:00 07/31/17 06:00 07/31/17 00:15 Active Medications Acetaminophen (Tylenol -) 650 mg PO Q4H PRN PRN Reason: PAIN LEVEL 1-5 Last Admin: 07/30/17 15:55 Dose: 650 mg Albuterol/Ipratropium (Duoneb -) 1 amp NEB Q6H PRN PRN Reason: SHORTNESS OF BREATH Last Admin: 07/31/17 06:48 Dose: 1 amp Bupropion HCl (Wellbutrin Xl -) 300 mg PO DAILY [facility] Last Admin: 07/30/17 11:15 Dose: 300 mg Carbidopa/Levodopa (Sinemet 25/100 -) 1 each PO TID [facility] Last Admin: 07/31/17 05:57 Dose: 1 each Citalopram Hydrobromide (Celexa -) 10 mg PO DAILY [facility] Last Admin: 07/30/17 11:13 Dose: 10 mg Digoxin (Lanoxin -) 0.25 mg PO DAILY [facility] Last Admin: 07/30/17 11:14 Dose: 0.25 mg Ceftriaxone Sodium 1 gm/ (Dextrose) 50 mls @ 100 mls/hr IVPB DAILY [facility] PRN Reason: Protocol Last Admin: 07/30/17 11:14 Dose: 100 mls/hr Vancomycin HCl 1,000 mg/ (Dextrose) 250 mls @ 166.667 mls/hr IVPB DAILY@1000 [facility] PRN Reason: Protocol Last Admin: 07/30/17 13:14 Dose: 166.667 mls/hr Insulin Aspart (Novolog Vial Sliding Scale -) 1 vial SQ ACHS [facility] PRN Reason: Protocol Last Admin: 07/31/17 06:13 Dose: 2 units Insulin Detemir (Levemir Vial) 40 units SQ AM [facility] Last Admin: 07/31/17 06:12 Dose: 40 unit Loratadine (Claritin -) 10 mg PO DAILY [facility] Last Admin: 07/30/17 11:13 Dose: 10 mg Melatonin (Melatonin) 3 mg PO HS [facility] Last Admin: 07/30/17 21:18 Dose: 3 mg Pramipexole Dihydrochloride (Mirapex -) 0.5 mg PO BID@1000,1630 [facility] Last Admin: 07/30/17 16:58 Dose: 0.5 mg Pramipexole Dihydrochloride (Mirapex -) 1.5 mg PO HS [facility] Last Admin: 07/30/17 21:15 Dose: 1.5 mg Prednisone (Deltasone -) 10 mg PO DAILY [facility] Pregabalin (Lyrica -) 100 mg PO BID PRN PRN Reason: PAIN LEVEL 1 - 3 Last Admin: 07/30/17 06:36 Dose: 100 mg Ranolazine (Ranexa -) 500 mg PO BID [facility] Last Admin: 07/30/17 21:13 Dose: 500 mg Topiramate (Topamax -) 150 mg PO BID [facility] Last Admin: 07/30/17 21:15 Dose: 150 mg Torsemide (Demadex -) 40 mg PO AM [facility] Last Admin: 07/31/17 06:08 Dose: 40 mg Triamcinolone Acetonide (Aristocort 0.1% Cream -) 1 applic TP BID [facility] Last Admin: 07/30/17 21:18 Dose: 1 applic Verapamil HCl (Calan Sr -) 240 mg PO DAILY [facility] Last Admin: 07/30/17 11:13 Dose: 240 mg Warfarin Sodium 10 mg/ (Warfarin Sodium 1 mg) 11 mg PO Mo@1800 [facility] Last Admin: 07/30/17 17:04 Dose: 11 mg Warfarin Sodium (Coumadin -) 9 mg PO SuTuWeThFrSa@1800 [facility] Last Admin: 07/29/17 18:45 Dose: 9 mg Constitutional: Yes: Well Nourished, NAD Eyes: Yes: WNL HENT: Yes: Nasal Congestion Neck: Yes: WNL Cardiovascular: Yes: S1, S2 Respiratory: Yes: Diminished at the bases Gastrointestinal: Yes: Normal Bowel Sounds, Soft Extremities: Yes: WNL Edema: No Labs: Laboratory Results - last 24 hr 07/30/17 07/30/17 07/30/17 12:00 16:57 21:14 WBC RBC Hgb Hct MCV MCH MCHC RDW Plt Count MPV Neutrophils % Lymphocytes % PT with INR INR Sodium Potassium Chloride Carbon Dioxide Anion Gap BUN Creatinine Creat Clearance w eGFR POC Glucometer 199 198 163 Random Glucose Calcium Total Bilirubin AST ALT Alkaline Phosphatase Total Protein Albumin 07/31/17 07/31/17 07/31/17 05:46 07:30 07:36 WBC 15.0 H RBC 4.55 Hgb 13.5 Hct 41.8 MCV 91.9 MCH 29.6 MCHC 32.2 RDW 15.8 H Plt Count 273 MPV 9.5 Neutrophils % No Result Required. Lymphocytes % No Result Required. PT with INR 36.00 H INR 3.19 H Sodium Potassium Chloride Carbon Dioxide Anion Gap BUN Creatinine Creat Clearance w eGFR POC Glucometer 215 Random Glucose Calcium Total Bilirubin AST ALT Alkaline Phosphatase Total Protein Albumin 07/31/17 07:36 WBC RBC Hgb Hct MCV MCH MCHC RDW Plt Count MPV Neutrophils % Lymphocytes % PT with INR INR Sodium 142 Potassium 3.8 Chloride 107 Carbon Dioxide 26 Anion Gap 9 BUN 26 H Creatinine 1.1 H Creat Clearance w eGFR 49.69 POC Glucometer Random Glucose 179 H Calcium 8.8 Total Bilirubin 0.3 AST 9 L ALT 8 L Alkaline Phosphatase 85 Total Protein 6.8 Albumin 3.4 Assessment/Plan - Problems (1) Afib Code(s): I48.91 - UNSPECIFIED ATRIAL FIBRILLATION Qualifiers: Atrial fibrillation type: paroxysmal Qualified Code(s): I48.0 - Paroxysmal atrial fibrillation (2) CAD (coronary artery disease) Code(s): I25.10 - ATHSCL HEART DISEASE OF [place] CORONARY ARTERY W/O ANG PCTRS (3) CHF (congestive heart failure) Code(s): I50.9 - HEART FAILURE, UNSPECIFIED (4) Diabetes mellitus, insulin dependent (IDDM), uncontrolled Code(s): E10.65 - TYPE 1 DIABETES MELLITUS WITH HYPERGLYCEMIA (5) Dyslipidemia Code(s): E78.5 - HYPERLIPIDEMIA, UNSPECIFIED (7) HTN (hypertension) Code(s): I10 - ESSENTIAL (PRIMARY) HYPERTENSION Qualifiers: Hypertension type: essential hypertension Qualified Code(s): I10 - Essential (primary) hypertension (8) Hyperlipidemia associated with type 2 diabetes mellitus Code(s): E11.69 - TYPE 2 DIABETES MELLITUS WITH OTHER SPECIFIED COMPLICATION; E78.5 - HYPERLIPIDEMIA, UNSPECIFIED (9) IDDM (insulin dependent diabetes mellitus) Code(s): E11.9 - TYPE 2 DIABETES MELLITUS WITHOUT COMPLICATIONS; Z79.4 - LONG-TERM (CURRENT) USE OF INSULIN (10) Lupus Code(s): L93.0 - DISCOID LUPUS ERYTHEMATOSUS (11) Mitral valve replaced Code(s): Z95.2 - PRESENCE OF PROSTHETIC HEART VALVE (12) FIGUEROA (obstructive sleep apnea) Code(s): G47.33 - OBSTRUCTIVE SLEEP APNEA (ADULT) (PEDIATRIC) (13) S/P MVR (mitral valve repair) Code(s): Z98.890 - OTHER SPECIFIED POSTPROCEDURAL STATES (14) SLE (systemic lupus erythematosus) Code(s): M32.9 - SYSTEMIC LUPUS ERYTHEMATOSUS, UNSPECIFIED (15) Type 2 diabetes mellitus with hyperosmolarity without nonketotic hyperglycemic-hyperosmolar coma ([facility]) Code(s): E11.00 - TYPE 2 DIAB W HYPROSM W/O NONKET HYPRGLY-HYPROS COMA ([facility]) (16) Unsteady gait Code(s): R26.81 - UNSTEADINESS ON FEET Assessment/Plan Inhaled bronchodilators O2 to maintain saturation Will need re-titration after discharge to ensure optimal PAP therapy Sleep hygiene practices Melatonin Dr Matias Problem List - Problems (1) Afib Code(s): I48.91 - UNSPECIFIED ATRIAL FIBRILLATION Qualifiers: Atrial fibrillation type: paroxysmal Qualified Code(s): I48.0 - Paroxysmal atrial fibrillation (2) CAD (coronary artery disease) Code(s): I25.10 - ATHSCL HEART DISEASE OF [place] CORONARY ARTERY W/O ANG PCTRS (3) CHF (congestive heart failure) Code(s): I50.9 - HEART FAILURE, UNSPECIFIED (4) Diabetes mellitus, insulin dependent (IDDM), uncontrolled Code(s): E10.65 - TYPE 1 DIABETES MELLITUS WITH HYPERGLYCEMIA (5) Dyslipidemia Code(s): E78.5 - HYPERLIPIDEMIA, UNSPECIFIED (7) HTN (hypertension) Code(s): I10 - ESSENTIAL (PRIMARY) HYPERTENSION Qualifiers: Hypertension type: essential hypertension Qualified Code(s): I10 - Essential (primary) hypertension (8) Hyperlipidemia associated with type 2 diabetes mellitus Code(s): E11.69 - TYPE 2 DIABETES MELLITUS WITH OTHER SPECIFIED COMPLICATION; E78.5 - HYPERLIPIDEMIA, UNSPECIFIED (9) IDDM (insulin dependent diabetes mellitus) Code(s): E11.9 - TYPE 2 DIABETES MELLITUS WITHOUT COMPLICATIONS; Z79.4 - FURNACE COMBINATION ANALYST (CURRENT) USE OF INSULIN (10) Lupus Code(s): L93.0 - DISCOID LUPUS ERYTHEMATOSUS (11) Mitral valve replaced Code(s): Z95.2 - PRESENCE OF PROSTHETIC HEART VALVE (12) FIGUEROA (obstructive sleep apnea) Code(s): G47.33 - OBSTRUCTIVE SLEEP APNEA (ADULT) (PEDIATRIC) (13) S/P MVR (mitral valve repair) Code(s): Z98.890 - OTHER SPECIFIED POSTPROCEDURAL STATES (14) SLE (systemic lupus erythematosus) Code(s): M32.9 - SYSTEMIC LUPUS ERYTHEMATOSUS, UNSPECIFIED (15) Type 2 diabetes mellitus with hyperosmolarity without nonketotic hyperglycemic-hyperosmolar coma ([facility]) Code(s): E11.00 - TYPE 2 DIAB W HYPROSM W/O NONKET HYPRGLY-HYPROS COMA ([facility]) (16) Unsteady gait Code(s): R26.81 - UNSTEADINESS ON FEET
[2017-07-31] MEDS ORDERED: PT OWN MED DRAWER 7, Y5N ONE ×2 (10:22→21:17)
[2017-07-31] MEDS ORDERED: cefTRIAXone SODIUM 1 GM VIAL ONE (10:22)
[2017-07-31] MEDS ORDERED: DEXTROSE 5%-WATER - 50 ML IVPB ONE (10:22)
[2017-07-31] MEDS: RANOLAZINE E.R. 500 MG TABLET (FP) PO SCH ×2 (10:29→22:24)
[2017-07-31] MEDS: DIGOXIN 0.25 MG TABLET (FP) PO SCH (10:29)
[2017-07-31] MEDS: CEFTRIAXONE 1 GM in DEXTROSE 5%-WATER - 50 ML IVPB SCH (10:29)
[2017-07-31] MEDS: CITALOPRAM HYDROBROMIDE 20 MG TABLET (FP) PO SCH (10:29)
[2017-07-31] MEDS: LORATADINE 10 MG TABLET PO SCH (10:30)
[2017-07-31] MEDS: PRAMIPEXOLE DIHYDROCHLORIDE 0.5 MG TABLET PO SCH ×3 (10:30→22:24)
[2017-07-31] MEDS: VERAPAMIL HCL 240 MG E.R. TABLET (FP) PO SCH (10:30)
[2017-07-31] MEDS: PREGABALIN 50 MG CAPSULE PO PRN ×2 (10:30→22:22)
[2017-07-31] MEDS: TOPIRAMATE 100 MG TABLET PO SCH ×2 (10:31→22:23)
[2017-07-31] MEDS: TRIAMCINOLONE ACET 0.1% CREAM 15 GM TUBE TP SCH ×2 (10:32→22:28)
--- NOTE | 2017-07-31 11:24 | PN ---
Progress Note (short form) - Note Progress Note: known history of urinary retention- straight caths bid at home does not want staff to do the straight cath, planning to do it herself this am c/p back pain Vital Signs Period Temp Pulse Resp BP Sys/Wise Pulse Ox Last 24 Hr 97.4 F-99.3 F 51-73 20-22 132-154/50-68 cor-rrr lungs clear abd soft,nt ext no edema CBC, BMP 08/01/17 08:47 08/01/17 08:47 Microbiology 07/29/17 08:23 Blood - Peripheral Venous Blood Culture - Preliminary NO GROWTH OBTAINED AFTER 72 HOURS, INCUBATION TO CONTINUE FOR 2 DAYS. 07/29/17 08:23 Blood - Peripheral Venous Blood Culture - Preliminary NO GROWTH OBTAINED AFTER 72 HOURS, INCUBATION TO CONTINUE FOR 2 DAYS. 07/29/17 14:15 Urine - Urine Clean Catch Urine Culture - Final NO GROWTH OBTAINED a/p Leukocytosis resolving s/p 3 days vanco/rocephin cultures all negative chronic urinary retention- should continue her self cath bid history MVR recent MRSA in urine continue contact isolation please call back if needed Problem List - Problems (1) UTI (urinary tract infection) Code(s): N39.0 - URINARY TRACT INFECTION, SITE NOT SPECIFIED Qualifiers: Urinary tract infection type: acute cystitis Hematuria presence: without hematuria Qualified Code(s): N30.00 - Acute cystitis without hematuria (2) MRSA (methicillin resistant Staphylococcus aureus) colonization Code(s): Z22.322 - CARRIER OR SUSPECTED CARRIER OF METHICILLIN RESIS STAPH (3) Mitral valve replaced Code(s): Z95.2 - PRESENCE OF PROSTHETIC HEART VALVE
[2017-07-31] MEDS: ACETAMINOPHEN 325 MG TABLET (FP) PO PRN ×2 (11:34→18:23)
[2017-07-31] MEDS: VANCOMYCIN 1,000 MG in DEXTROSE 5%-WATER - 250 ML IVPB SCH (11:34)
[2017-07-31 11:57] LABS: PLATELET ESTIMATE ADEQUATE
[2017-07-31] MEDS: WARFARIN NA 3 MG TABLET PO SCH (17:47)
[2017-07-31] MEDS: MELATONIN 1 MG TABLET PO SCH (22:29)
[2017-08-01] MEDS: CARBIDOPA/LEVODOPA 25/100 TABLET (FP) PO SCH ×3 (06:27→22:01)
[2017-08-01] MEDS: TORSEMIDE 20 MG TABLET (FP) PO SCH (06:27)
[2017-08-01] MEDS: INSULIN SLIDING SCALE (NOVOLOG) 1 VIAL SQ SCH ×4 (06:27→22:25)
[2017-08-01] MEDS: INSULIN DETEMIR 100 UNITS/ML MDV SQ SCH (06:30)
[2017-08-01] MEDS: ALBUTEROL SO4 2.5/IPRATROPIUM 0.5 INH SOL 3 ML VIAL.NEB. NEB SCH ×2 (07:12→11:14)
--- NOTE | 2017-08-01 08:45 | PN ---
Progress Note, Physician History of Present Illness: c/p lbp c/o intermittent sob - Current Medication List Current Medications: Active Medications Acetaminophen (Tylenol -) 650 mg PO Q4H PRN PRN Reason: PAIN LEVEL 1-5 Last Admin: 07/31/17 18:23 Dose: 650 mg Albuterol/Ipratropium (Duoneb -) 1 amp NEB RQID [facility] Bupropion HCl (Wellbutrin Xl -) 300 mg PO DAILY [facility] Last Admin: 07/31/17 10:31 Dose: 300 mg Carbidopa/Levodopa (Sinemet 25/100 -) 1 each PO TID [facility] Last Admin: 08/01/17 06:27 Dose: 1 each Citalopram Hydrobromide (Celexa -) 10 mg PO DAILY [facility] Last Admin: 07/31/17 10:29 Dose: 10 mg Digoxin (Lanoxin -) 0.25 mg PO DAILY [facility] Last Admin: 07/31/17 10:29 Dose: 0.25 mg Insulin Aspart (Novolog Vial Sliding Scale -) 1 vial SQ ACHS [facility] PRN Reason: Protocol Last Admin: 08/01/17 06:27 Dose: Not Given Insulin Detemir (Levemir Vial) 40 units SQ AM [facility] Last Admin: 08/01/17 06:30 Dose: 40 unit Loratadine (Claritin -) 10 mg PO DAILY [facility] Last Admin: 07/31/17 10:30 Dose: 10 mg Melatonin (Melatonin) 3 mg PO HS [facility] Last Admin: 07/31/17 22:29 Dose: 3 mg Pramipexole Dihydrochloride (Mirapex -) 0.5 mg PO BID@1000,1630 [facility] Last Admin: 07/31/17 17:48 Dose: 0.5 mg Pramipexole Dihydrochloride (Mirapex -) 1.5 mg PO HS [facility] Last Admin: 07/31/17 22:24 Dose: 1.5 mg Pregabalin (Lyrica -) 100 mg PO BID PRN PRN Reason: PAIN LEVEL 1 - 3 Last Admin: 07/31/17 22:22 Dose: 100 mg Ranolazine (Ranexa -) 500 mg PO BID [facility] Last Admin: 07/31/17 22:24 Dose: 500 mg Topiramate (Topamax -) 150 mg PO BID [facility] Last Admin: 07/31/17 22:23 Dose: 150 mg Torsemide (Demadex -) 40 mg PO AM [facility] Last Admin: 08/01/17 06:27 Dose: 40 mg Triamcinolone Acetonide (Aristocort 0.1% Cream -) 1 applic TP BID [facility] Last Admin: 07/31/17 22:28 Dose: 1 applic Verapamil HCl (Calan Sr -) 240 mg PO DAILY [facility] Last Admin: 07/31/17 10:30 Dose: 240 mg Warfarin Sodium 10 mg/ (Warfarin Sodium 1 mg) 11 mg PO Mo@1800 [facility] Last Admin: 07/30/17 17:04 Dose: 11 mg Warfarin Sodium (Coumadin -) 9 mg PO SuTuWeThFrSa@1800 [facility] Last Admin: 07/31/17 17:47 Dose: Not Given - Objective Vital Signs: Vital Signs Temperature 97.4 F L 08/01/17 06:00 Pulse Rate 51 L 08/01/17 06:00 Respiratory Rate 22 08/01/17 06:00 Blood Pressure 132/66 08/01/17 06:00 O2 Sat by Pulse Oximetry (%) 96 07/31/17 09:00 Cardiovascular: Yes: S1, S2 Respiratory: Yes: CTA Bilaterally, Diminished, On Nasal O2 Gastrointestinal: Yes: Normal Bowel Sounds, Soft Labs: CBC, BMP 07/31/17 07:30 07/31/17 07:36 INR, PTT INR 3.19 (0.82-1.09) H 07/31/17 07:36 Problem List - Problems (1) Head trauma Assessment/Plan: S/P Fall on Coumadin -Head CT negative. Second Head CT nad -INR level therapeutic Code(s): S09.90XA - UNSPECIFIED INJURY OF HEAD, INITIAL ENCOUNTER (2) Afib Assessment/Plan: -Currently rate controlled -Continue Digoxin 0.25mg daily -Coumadin on hold and now resumed -INR therapeutic Code(s): I48.91 - UNSPECIFIED ATRIAL FIBRILLATION Qualifiers: Atrial fibrillation type: paroxysmal Qualified Code(s): I48.0 - Paroxysmal atrial fibrillation (3) CAD (coronary artery disease) Assessment/Plan: -no cp -same meds Code(s): I25.10 - ATHSCL HEART DISEASE OF [place] CORONARY ARTERY W/O ANG PCTRS (4) COPD (chronic obstructive pulmonary disease) Assessment/Plan: -SOB YESTERDAI -CXR -Continue Singulair 10mg daily -Continue Claritin 10mg daily -Continue Duo-Neb PRN -PULM CONCULT -increase prednisone to 30 Code(s): J44.9 - CHRONIC OBSTRUCTIVE PULMONARY DISEASE, UNSPECIFIED Qualifiers: COPD type: COPD with acute exacerbation Qualified Code(s): J44.1 - Chronic obstructive pulmonary disease with (acute) exacerbation (5) Diabetes Assessment/Plan: -Levemir 40 units in the am -ISS -BGM -Lyrica 100mg BID PRN Code(s): E11.9 - TYPE 2 DIABETES MELLITUS WITHOUT COMPLICATIONS Qualifiers: Diabetes mellitus type: type 2 Diabetes mellitus complication status: with neurologic complications (6) Lupus Code(s): L93.0 - DISCOID LUPUS ERYTHEMATOSUS (7) S/P MVR (mitral valve repair) Code(s): Z98.890 - OTHER SPECIFIED POSTPROCEDURAL STATES (8) UTI (lower urinary tract infection) Assessment/Plan: -U/A revealed 2+ LE with Urine WBC 78--culture negative -Patient does have a white count >16 but does not have a septic picture. -Has history of MRSA in urine -Will discontinue Ceftriaxone 1gm IVPB daily and Vancomycin 1000mg IVPB daily -Urine and blood cultures neg Code(s): N39.0 - URINARY TRACT INFECTION, SITE NOT SPECIFIED (9) Sleep apnea Assessment/Plan: -Patient reports day time drowsiness and falling asleep. -Currently on CPAP at night and does have a superintendent distribution, however, she has not seen him since her last admission -I suspect patient abruptly fell asleep last night due to sleep apnea, which caused her to fall -PULM consult placed with Dr. Schaefer Code(s): G47.30 - SLEEP APNEA, UNSPECIFIED (10) Retention, urine Assessment/Plan: -CATH PRN Code(s): R33.9 - RETENTION OF URINE, UNSPECIFIED (11) Acute bilateral low back pain Assessment/Plan: -xray -pt -tramadol Code(s): M54.5 - LOW BACK PAIN
[2017-08-01 09:08] LABS: HEMATOCRIT 43.3 % (32.4-45.2); HEMOGLOBIN 14.4 GM/dL (10.7-15.3); MCH 29.8 pg (25.7-33.7); MCHC 33.1 g/dl (32.0-36.0); MEAN CELL VOLUME 90.1 fl (80-96); MEAN PLT VOLUME 9.2 fl (7.5-11.1); PLATELET COUNT 324 K/MM3 (134-434); RBC 4.81 M/mm3 (3.60-5.2); RDW 15.7 % (11.6-15.6); WHITE BLOOD COUNT 12.9 K/mm3 (4.0-10.0)
[2017-08-01 09:29] LABS: ALBUMIN 3.8 g/dl (3.4-5.0); ANION GAP 10 (8-16); BILIRUBIN,TOTAL 0.7 mg/dL (0.2-1.0); BLOOD UREA NITROGEN 21 mg/dL (7-18); CALCIUM 8.5 mg/dL (8.5-10.1); CHLORIDE 106 mmol/L (98-107); CO2 26 mmol/L (21-32); CREATININE 1.1 mg/dL (0.55-1.02); GLUCOSE,RANDOM 171 mg/dL (74-106); POTASSIUM 3.5 mmol/L (3.5-5.1); SGOT/AST 8 U/L (15-37); SGPT/ALT 7 U/L (12-78); SODIUM 142 mmol/L (136-145); TOT PROT 7.2 g/dl (6.4-8.2)
[2017-08-01 09:30] LABS: ALK PHOS 89 U/L (45-117)
[2017-08-01 10:14] LABS: INR 2.43 (0.82-1.09); PROTHROMBIN TIME (PATIENT) 27.5 SEC (9.7-13.0)
[2017-08-01 10:35] LABS: PLATELET ESTIMATE NORMAL
[2017-08-01] MEDS: LORATADINE 10 MG TABLET PO SCH (10:48)
[2017-08-01] MEDS: CITALOPRAM HYDROBROMIDE 20 MG TABLET (FP) PO SCH (10:48)
[2017-08-01] MEDS: VERAPAMIL HCL 240 MG E.R. TABLET (FP) PO SCH (10:48)
[2017-08-01] MEDS: RANOLAZINE E.R. 500 MG TABLET (FP) PO SCH ×2 (10:48→22:01)
[2017-08-01] MEDS: DIGOXIN 0.25 MG TABLET (FP) PO SCH (10:50)
[2017-08-01] MEDS: PRAMIPEXOLE DIHYDROCHLORIDE 0.5 MG TABLET PO SCH ×3 (10:50→22:16)
[2017-08-01] MEDS: TOPIRAMATE 100 MG TABLET PO SCH ×2 (10:51→22:01)
[2017-08-01 11:45] VITALS: BMI 38.5
[2017-08-01] MEDS: TRIAMCINOLONE ACET 0.1% CREAM 15 GM TUBE TP SCH ×2 (12:11→22:00)
--- NOTE | 2017-08-01 13:10 | PN ---
Progress Note, Physician History of Present Illness: pulmonary alert,c/o sob,+ cough - Current Medication List Current Medications: Active Medications Acetaminophen (Tylenol -) 650 mg PO Q4H PRN PRN Reason: PAIN LEVEL 1-5 Last Admin: 07/31/17 18:23 Dose: 650 mg Albuterol/Ipratropium (Duoneb -) 1 amp NEB RQID [facility] Last Admin: 08/01/17 07:12 Dose: 1 amp Bupropion HCl (Wellbutrin Xl -) 300 mg PO DAILY [facility] Last Admin: 08/01/17 10:54 Dose: 300 mg Carbidopa/Levodopa (Sinemet 25/100 -) 1 each PO TID [facility] Last Admin: 08/01/17 06:27 Dose: 1 each Citalopram Hydrobromide (Celexa -) 10 mg PO DAILY [facility] Last Admin: 08/01/17 10:48 Dose: 10 mg Digoxin (Lanoxin -) 0.25 mg PO DAILY [facility] Last Admin: 08/01/17 10:50 Dose: 0.25 mg Insulin Aspart (Novolog Vial Sliding Scale -) 1 vial SQ ACHS [facility] PRN Reason: Protocol Last Admin: 08/01/17 12:11 Dose: Not Given Insulin Detemir (Levemir Vial) 40 units SQ AM [facility] Last Admin: 08/01/17 06:30 Dose: 40 unit Loratadine (Claritin -) 10 mg PO DAILY [facility] Last Admin: 08/01/17 10:48 Dose: 10 mg Melatonin (Melatonin) 3 mg PO [facility] Last Admin: 07/31/17 22:29 Dose: 3 mg Pramipexole Dihydrochloride (Mirapex -) 0.5 mg PO BID@1000,1630 [facility] Last Admin: 08/01/17 10:50 Dose: 0.5 mg Pramipexole Dihydrochloride (Mirapex -) 1.5 mg PO HS [facility] Last Admin: 07/31/17 22:24 Dose: 1.5 mg Prednisone (Deltasone -) 30 mg PO DAILY [facility] Ranolazine (Ranexa -) 500 mg PO BID [facility] Last Admin: 08/01/17 10:48 Dose: 500 mg Topiramate (Topamax -) 150 mg PO BID [facility] Last Admin: 08/01/17 10:51 Dose: 150 mg Torsemide (Demadex -) 40 mg PO AM [facility] Last Admin: 08/01/17 06:27 Dose: 40 mg Tramadol HCl (Ultram -) 50 mg PO Q8H PRN PRN Reason: PAIN LEVEL 6-10 Triamcinolone Acetonide (Aristocort 0.1% Cream -) 1 applic TP BID [facility] Last Admin: 08/01/17 12:11 Dose: 1 applic Verapamil HCl (Calan Sr -) 240 mg PO DAILY [facility] Last Admin: 08/01/17 10:48 Dose: 240 mg Warfarin Sodium 10 mg/ (Warfarin Sodium 1 mg) 11 mg PO Mo@1800 [facility] Last Admin: 07/30/17 17:04 Dose: 11 mg Warfarin Sodium (Coumadin -) 9 mg PO SuTuWeThFrSa@1800 [facility] Last Admin: 07/31/17 17:47 Dose: Not Given - Objective Vital Signs: Vital Signs Temperature 97.4 F L 08/01/17 06:00 Pulse Rate 73 08/01/17 10:50 Respiratory Rate 22 08/01/17 06:00 Blood Pressure 132/66 08/01/17 06:00 O2 Sat by Pulse Oximetry (%) 96 07/31/17 09:00 Constitutional: Yes: Well Nourished, Calm Eyes: Yes: WNL HENT: Yes: WNL Neck: Yes: WNL Cardiovascular: Yes: Pulse Irregular, S1, S2 Respiratory: Yes: Wheezes (few wheezes) Gastrointestinal: Yes: Normal Bowel Sounds, Soft Extremities: Yes: WNL Edema: No Labs: CBC, BMP 08/01/17 08:47 08/01/17 08:47 INR, PTT INR 2.43 (0.82-1.09) H 08/01/17 08:47 Assessment/Plan - Problems (1) Afib Code(s): I48.91 - UNSPECIFIED ATRIAL FIBRILLATION Qualifiers: Atrial fibrillation type: paroxysmal Qualified Code(s): I48.0 - Paroxysmal atrial fibrillation (2) CAD (coronary artery disease) Code(s): I25.10 - ATHSCL HEART DISEASE OF [place] CORONARY ARTERY W/O ANG PCTRS (3) CHF (congestive heart failure) Code(s): I50.9 - HEART FAILURE, UNSPECIFIED (4) Diabetes mellitus, insulin dependent (IDDM), uncontrolled Code(s): E10.65 - TYPE 1 DIABETES MELLITUS WITH HYPERGLYCEMIA (5) Dyslipidemia Code(s): E78.5 - HYPERLIPIDEMIA, UNSPECIFIED (7) HTN (hypertension) Code(s): I10 - ESSENTIAL (PRIMARY) HYPERTENSION Qualifiers: Hypertension type: essential hypertension Qualified Code(s): I10 - Essential (primary) hypertension (8) Hyperlipidemia associated with type 2 diabetes mellitus Code(s): E11.69 - TYPE 2 DIABETES MELLITUS WITH OTHER SPECIFIED COMPLICATION; E78.5 - HYPERLIPIDEMIA, UNSPECIFIED (9) IDDM (insulin dependent diabetes mellitus) Code(s): E11.9 - TYPE 2 DIABETES MELLITUS WITHOUT COMPLICATIONS; Z79.4 - 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[employer]IA 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 (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) USE OF INSULIN (10) Lupus Code(s): L93.0 - DISCOID LUPUS ERYTHEMATOSUS (11) Mitral valve replaced Code(s): Z95.2 - PRESENCE OF PROSTHETIC HEART VALVE (12) FIGUEROA (obstructive sleep apnea) Code(s): G47.33 - OBSTRUCTIVE SLEEP APNEA (ADULT) (PEDIATRIC) (13) S/P MVR (mitral valve repair) Code(s): Z98.890 - OTHER SPECIFIED POSTPROCEDURAL STATES (14) SLE (systemic lupus erythematosus) Code(s): M32.9 - SYSTEMIC LUPUS ERYTHEMATOSUS, UNSPECIFIED (15) Type 2 diabetes mellitus with hyperosmolarity without nonketotic hyperglycemic-hyperosmolar coma ([facility]) Code(s): E11.00 - TYPE 2 DIAB W HYPROSM W/O NONKET HYPRGLY-HYPROS COMA ([facility]) (16) Unsteady gait Code(s): R26.81 - UNSTEADINESS ON FEET Assessment/Plan Inhaled bronchodilators O2 to maintain saturation re-titration after discharge to ensure optimal PAP therapy after discharge Enio IVERSON
[2017-08-01] MEDS: BUDESONIDE/FORMETEROL FUMARATE 160/4.5 mcg INHALER IH SCH ×2 (14:28→22:23)
[2017-08-01] MEDS: TIOTROPIUM BROMIDE 18 MCG CAPSULES IH SCH (14:29)
[2017-08-01] MEDS: ALBUTEROL SO4 0.083% IH SOL 2.5 MG/3 ML VIAL.NEB. NEB PRN ×2 (16:13→20:30)
[2017-08-01] MEDS ORDERED: PT OWN MED DRAWER 7, Y5N ONE ×3 (18:29→21:25)
[2017-08-01] MEDS: WARFARIN NA 3 MG TABLET PO SCH (19:06)
[2017-08-01] MEDS: MELATONIN 1 MG TABLET PO SCH (22:05)
[2017-08-02] MEDS: traMADol HCL 50 MG TABLET PO PRN ×2 (03:05→15:21)
[2017-08-02] MEDS: ALBUTEROL SO4 0.083% IH SOL 2.5 MG/3 ML VIAL.NEB. NEB PRN ×5 (03:30→19:20)
[2017-08-02] MEDS: TORSEMIDE 20 MG TABLET (FP) PO SCH (06:36)
[2017-08-02] MEDS: INSULIN DETEMIR 100 UNITS/ML MDV SQ SCH (06:36)
[2017-08-02] MEDS: CARBIDOPA/LEVODOPA 25/100 TABLET (FP) PO SCH ×3 (06:36→22:11)
[2017-08-02] MEDS: INSULIN SLIDING SCALE (NOVOLOG) 1 VIAL SQ SCH ×4 (06:38→22:17)
[2017-08-02] MEDS ORDERED: PT OWN MED DRAWER 7, Y5N ONE ×3 (09:07→18:48)
[2017-08-02] MEDS: CITALOPRAM HYDROBROMIDE 20 MG TABLET (FP) PO SCH (09:21)
[2017-08-02] MEDS: VERAPAMIL HCL 240 MG E.R. TABLET (FP) PO SCH (09:21)
[2017-08-02] MEDS: LORATADINE 10 MG TABLET PO SCH (09:22)
[2017-08-02] MEDS: PRAMIPEXOLE DIHYDROCHLORIDE 0.5 MG TABLET PO SCH ×3 (09:22→22:12)
[2017-08-02] MEDS: RANOLAZINE E.R. 500 MG TABLET (FP) PO SCH ×2 (09:22→23:16)
[2017-08-02] MEDS: DIGOXIN 0.25 MG TABLET (FP) PO SCH (09:23)
[2017-08-02] MEDS: TRIAMCINOLONE ACET 0.1% CREAM 15 GM TUBE TP SCH ×2 (09:26→22:10)
[2017-08-02] MEDS: TIOTROPIUM BROMIDE 18 MCG CAPSULES IH SCH (09:26)
[2017-08-02] MEDS: BUDESONIDE/FORMETEROL FUMARATE 160/4.5 mcg INHALER IH SCH ×2 (09:27→22:10)
[2017-08-02] MEDS: TOPIRAMATE 100 MG TABLET PO SCH ×2 (09:28→22:11)
[2017-08-02] MEDS ORDERED: predniSONE 20 MG TABLET (UD) PO SCH (10:00)
--- NOTE | 2017-08-02 10:15 | PN ---
Progress Note (short form) - Note Progress Note: Resting in NAD. No acute events overnight. Some cough persists. Intake & Output 07/30/17 07/31/17 08/01/17 08/02/17 23:59 23:59 23:59 23:59 Intake Total 2290 2130 Balance 2290 2130 Weight 199 lb 3.2 oz 204 lb 204 lb 203 lb 9.6 oz Last Vital Signs Temp Pulse Resp BP Pulse Ox 99.2 F 67 20 145/54 96 08/02/17 06:00 08/02/17 09:23 08/02/17 06:00 08/02/17 06:00 07/31/17 09:00 Active Medications Acetaminophen (Tylenol -) 650 mg PO Q4H PRN PRN Reason: PAIN LEVEL 1-5 Last Admin: 07/31/17 18:23 Dose: 650 mg Albuterol Sulfate (Ventolin 0.083% Nebulizer Soln -) 1 amp NEB Q4H PRN PRN Reason: SHORT OF BREATH/WHEEZING Last Admin: 08/02/17 07:27 Dose: 1 amp Budesonide/Formoterol Fumarate (Symbicort 160/4.5mcg -) 2 puff IH BID [facility] Last Admin: 08/02/17 09:27 Dose: 2 puff Bupropion HCl (Wellbutrin Xl -) 300 mg PO DAILY [facility] Last Admin: 08/02/17 09:23 Dose: 300 mg Carbidopa/Levodopa (Sinemet 25/100 -) 1 each PO TID [facility] Last Admin: 08/02/17 06:36 Dose: 1 each Citalopram Hydrobromide (Celexa -) 10 mg PO DAILY [facility] Last Admin: 08/02/17 09:21 Dose: 10 mg Digoxin (Lanoxin -) 0.25 mg PO DAILY [facility] Last Admin: 08/02/17 09:23 Dose: 0.25 mg Insulin Aspart (Novolog Vial Sliding Scale -) 1 vial SQ ACHS [facility] PRN Reason: Protocol Last Admin: 08/02/17 06:38 Dose: Not Given Insulin Detemir (Levemir Vial) 40 units SQ AM [facility] Last Admin: 08/02/17 06:36 Dose: 40 unit Loratadine (Claritin -) 10 mg PO DAILY [facility] Last Admin: 08/02/17 09:22 Dose: 10 mg Melatonin (Melatonin) 3 mg PO HS [facility] Last Admin: 08/01/17 22:05 Dose: 3 mg Pramipexole Dihydrochloride (Mirapex -) 0.5 mg PO BID@1000,1630 [facility] Last Admin: 08/02/17 09:22 Dose: 0.5 mg Pramipexole Dihydrochloride (Mirapex -) 1.5 mg PO HS [facility] Last Admin: 08/01/17 22:16 Dose: 1.5 mg Prednisone (Deltasone -) 30 mg PO DAILY [facility] Ranolazine (Ranexa -) 500 mg PO BID [facility] Last Admin: 08/02/17 09:22 Dose: 500 mg Tiotropium [place] (Spiriva -) 1 puff IH DAILY [facility] Last Admin: 08/02/17 09:26 Dose: 1 puff Topiramate (Topamax -) 150 mg PO BID [facility] Last Admin: 08/02/17 09:28 Dose: 150 mg Torsemide (Demadex -) 40 mg PO AM [facility] Last Admin: 08/02/17 06:36 Dose: 40 mg Tramadol HCl (Ultram -) 50 mg PO Q8H PRN PRN Reason: PAIN LEVEL 6-10 Last Admin: 08/02/17 03:05 Dose: 50 mg Triamcinolone Acetonide (Aristocort 0.1% Cream -) 1 applic TP BID [facility] Last Admin: 08/02/17 09:26 Dose: 1 applic Verapamil HCl (Calan Sr -) 240 mg PO DAILY [facility] Last Admin: 08/02/17 09:21 Dose: 240 mg Warfarin Sodium 10 mg/ (Warfarin Sodium 1 mg) 11 mg PO Mo@1800 [facility] Last Admin: 07/30/17 17:04 Dose: 11 mg Warfarin Sodium (Coumadin -) 9 mg PO SuTuWeThFrSa@1800 [facility] Last Admin: 08/01/17 19:06 Dose: 9 mg Constitutional: Yes: Well Nourished, NAD Eyes: Yes: WNL HENT: Yes: Nasal Congestion Neck: Yes: WNL Cardiovascular: Yes: S1, S2 Respiratory: Yes: Diminished at the bases Gastrointestinal: Yes: Normal Bowel Sounds, Soft Extremities: Yes: WNL Edema: No Labs: Laboratory Results - last 24 hr 08/01/17 08/01/17 08/01/17 08:47 08:47 12:09 Total Counted 101 Neutrophils % (Manual) 77.2 Band Neutrophils % 0.0 Lymphocytes % (Manual) 18.8 Monocytes % (Manual) 3 L Eosinophils % (Manual) 1.0 D Basophils % (Manual) 0.0 Myelocytes % (Man) 0 Promyelocytes % (Man) 0 Blast Cells % (Manual) 0 Nucleated RBC % 0 Metamyelocytes 0 Platelet Estimate Normal PT with INR 27.50 H INR 2.43 H POC Glucometer 118 08/01/17 08/01/17 08/02/17 17:46 22:19 06:35 Total Counted Neutrophils % (Manual) Band Neutrophils % Lymphocytes % (Manual) Monocytes % (Manual) Eosinophils % (Manual) Basophils % (Manual) Myelocytes % (Man) Promyelocytes % (Man) Blast Cells % (Manual) Nucleated RBC % Metamyelocytes Platelet Estimate PT with INR INR POC Glucometer 197 184 136 Assessment/Plan - Problems (1) Afib Code(s): I48.91 - UNSPECIFIED ATRIAL FIBRILLATION Qualifiers: Atrial fibrillation type: paroxysmal Qualified Code(s): I48.0 - Paroxysmal atrial fibrillation (2) CAD (coronary artery disease) Code(s): I25.10 - ATHSCL HEART DISEASE OF [place] CORONARY ARTERY W/O ANG PCTRS (3) CHF (congestive heart failure) Code(s): I50.9 - HEART FAILURE, UNSPECIFIED (4) Diabetes mellitus, insulin dependent (IDDM), uncontrolled Code(s): E10.65 - TYPE 1 DIABETES MELLITUS WITH HYPERGLYCEMIA (5) Dyslipidemia Code(s): E78.5 - HYPERLIPIDEMIA, UNSPECIFIED (7) HTN (hypertension) Code(s): I10 - ESSENTIAL (PRIMARY) HYPERTENSION Qualifiers: Hypertension type: essential hypertension Qualified Code(s): I10 - Essential (primary) hypertension (8) Hyperlipidemia associated with type 2 diabetes mellitus Code(s): E11.69 - TYPE 2 DIABETES MELLITUS WITH OTHER SPECIFIED COMPLICATION; E78.5 - HYPERLIPIDEMIA, UNSPECIFIED (9) IDDM (insulin dependent diabetes mellitus) Code(s): E11.9 - TYPE 2 DIABETES MELLITUS WITHOUT COMPLICATIONS; Z79.4 - RECYCLING 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 (10) Lupus Code(s): L93.0 - DISCOID LUPUS ERYTHEMATOSUS (11) Mitral valve replaced Code(s): Z95.2 - PRESENCE OF PROSTHETIC HEART VALVE (12) FIGUEROA (obstructive sleep apnea) Code(s): G47.33 - OBSTRUCTIVE SLEEP APNEA (ADULT) (PEDIATRIC) (13) S/P MVR (mitral valve repair) Code(s): Z98.890 - OTHER SPECIFIED POSTPROCEDURAL STATES (14) SLE (systemic lupus erythematosus) Code(s): M32.9 - SYSTEMIC LUPUS ERYTHEMATOSUS, UNSPECIFIED (15) Type 2 diabetes mellitus with hyperosmolarity without nonketotic hyperglycemic-hyperosmolar coma ([facility]) Code(s): E11.00 - TYPE 2 DIAB W HYPROSM W/O NONKET HYPRGLY-HYPROS COMA ([facility]) (16) Unsteady gait Code(s): R26.81 - UNSTEADINESS ON FEET Assessment/Plan Inhaled bronchodilators O2 to maintain saturation Will need re-titration after discharge to ensure optimal PAP therapy Sleep hygiene practices Melatonin Dr Matias Problem List - Problems (1) Afib Code(s): I48.91 - UNSPECIFIED ATRIAL FIBRILLATION Qualifiers: Atrial fibrillation type: paroxysmal Qualified Code(s): I48.0 - Paroxysmal atrial fibrillation (2) CAD (coronary artery disease) Code(s): I25.10 - ATHSCL HEART DISEASE OF [place] CORONARY ARTERY W/O ANG PCTRS (3) CHF (congestive heart failure) Code(s): I50.9 - HEART FAILURE, UNSPECIFIED (4) Diabetes mellitus, insulin dependent (IDDM), uncontrolled Code(s): E10.65 - TYPE 1 DIABETES MELLITUS WITH HYPERGLYCEMIA (5) Dyslipidemia Code(s): E78.5 - HYPERLIPIDEMIA, UNSPECIFIED (7) HTN (hypertension) Code(s): I10 - ESSENTIAL (PRIMARY) HYPERTENSION Qualifiers: Hypertension type: essential hypertension Qualified Code(s): I10 - Essential (primary) hypertension (8) Hyperlipidemia associated with type 2 diabetes mellitus Code(s): E11.69 - TYPE 2 DIABETES MELLITUS WITH OTHER SPECIFIED COMPLICATION; E78.5 - HYPERLIPIDEMIA, UNSPECIFIED (9) IDDM (insulin dependent diabetes mellitus) Code(s): E11.9 - TYPE 2 DIABETES MELLITUS WITHOUT COMPLICATIONS; Z79.4 - NURSING HOME (CURRENT) USE OF INSULIN (10) Lupus Code(s): L93.0 - DISCOID LUPUS ERYTHEMATOSUS (11) Mitral valve replaced Code(s): Z95.2 - PRESENCE OF PROSTHETIC HEART VALVE (12) FIGUEROA (obstructive sleep apnea) Code(s): G47.33 - OBSTRUCTIVE SLEEP APNEA (ADULT) (PEDIATRIC) (13) S/P MVR (mitral valve repair) Code(s): Z98.890 - OTHER SPECIFIED POSTPROCEDURAL STATES (14) SLE (systemic lupus erythematosus) Code(s): M32.9 - SYSTEMIC LUPUS ERYTHEMATOSUS, UNSPECIFIED (15) Type 2 diabetes mellitus with hyperosmolarity without nonketotic hyperglycemic-hyperosmolar coma ([facility]) Code(s): E11.00 - TYPE 2 DIAB W HYPROSM W/O NONKET HYPRGLY-HYPROS COMA ([facility]) (16) Unsteady gait Code(s): R26.81 - UNSTEADINESS ON FEET
--- NOTE | 2017-08-02 10:42 | PN ---
Progress Note, Physician Chief Complaint: patient complaining of cough over nite and not able to sleep cannot walk bc of back pain LS spine xray done has not had a BM needs laxative - Current Medication List Current Medications: Active Medications Acetaminophen (Tylenol -) 650 mg PO Q4H PRN PRN Reason: PAIN LEVEL 1-5 Last Admin: 07/31/17 18:23 Dose: 650 mg Albuterol Sulfate (Ventolin 0.083% Nebulizer Soln -) 1 amp NEB Q4H PRN PRN Reason: SHORT OF BREATH/WHEEZING Last Admin: 08/02/17 07:27 Dose: 1 amp Budesonide/Formoterol Fumarate (Symbicort 160/4.5mcg -) 2 puff IH BID [facility] Last Admin: 08/02/17 09:27 Dose: 2 puff Bupropion HCl (Wellbutrin Xl -) 300 mg PO DAILY [facility] Last Admin: 08/02/17 09:23 Dose: 300 mg Carbidopa/Levodopa (Sinemet 25/100 -) 1 each PO TID [facility] Last Admin: 08/02/17 06:36 Dose: 1 each Citalopram Hydrobromide (Celexa -) 10 mg PO DAILY [facility] Last Admin: 08/02/17 09:21 Dose: 10 mg Digoxin (Lanoxin -) 0.25 mg PO DAILY [facility] Last Admin: 08/02/17 09:23 Dose: 0.25 mg Docusate Sodium (Colace -) 300 mg PO HS [facility] Insulin Aspart (Novolog Vial Sliding Scale -) 1 vial SQ ACHS [facility] PRN Reason: Protocol Last Admin: 08/02/17 06:38 Dose: Not Given Insulin Detemir (Levemir Vial) 40 units SQ AM [facility] Last Admin: 08/02/17 06:36 Dose: 40 unit Loratadine (Claritin -) 10 mg PO DAILY [facility] Last Admin: 08/02/17 09:22 Dose: 10 mg Melatonin (Melatonin) 3 mg PO HS [facility] Last Admin: 08/01/17 22:05 Dose: 3 mg Polyethylene Glycol (Miralax (For Daily Use) -) 17 gm PO DAILY [facility] Pramipexole Dihydrochloride (Mirapex -) 0.5 mg PO BID@1000,1630 [facility] Last Admin: 08/02/17 09:22 Dose: 0.5 mg Pramipexole Dihydrochloride (Mirapex -) 1.5 mg PO HS [facility] Last Admin: 08/01/17 22:16 Dose: 1.5 mg Prednisone (Deltasone -) 30 mg PO DAILY [facility] Ranolazine (Ranexa -) 500 mg PO BID [facility] Last Admin: 08/02/17 09:22 Dose: 500 mg Tiotropium [place] (Spiriva -) 1 puff IH DAILY [facility] Last Admin: 08/02/17 09:26 Dose: 1 puff Topiramate (Topamax -) 150 mg PO BID [facility] Last Admin: 08/02/17 09:28 Dose: 150 mg Torsemide (Demadex -) 40 mg PO AM [facility] Last Admin: 08/02/17 06:36 Dose: 40 mg Tramadol HCl (Ultram -) 50 mg PO Q8H PRN PRN Reason: PAIN LEVEL 6-10 Last Admin: 08/02/17 03:05 Dose: 50 mg Triamcinolone Acetonide (Aristocort 0.1% Cream -) 1 applic TP BID [facility] Last Admin: 08/02/17 09:26 Dose: 1 applic Verapamil HCl (Calan Sr -) 240 mg PO DAILY [facility] Last Admin: 08/02/17 09:21 Dose: 240 mg Warfarin Sodium 10 mg/ (Warfarin Sodium 1 mg) 11 mg PO Mo@1800 [facility] Last Admin: 07/30/17 17:04 Dose: 11 mg Warfarin Sodium (Coumadin -) 9 mg PO SuTuWeThFrSa@1800 [facility] Last Admin: 08/01/17 19:06 Dose: 9 mg - Objective Vital Signs: Vital Signs Temperature 99.2 F 08/02/17 06:00 Pulse Rate 67 08/02/17 09:23 Respiratory Rate 20 08/02/17 06:00 Blood Pressure 145/54 08/02/17 06:00 O2 Sat by Pulse Oximetry (%) 96 07/31/17 09:00 Constitutional: Yes: Calm Cardiovascular: Yes: Regular Rate and Rhythm, S1, S2 Respiratory: Yes: CTA Bilaterally, On Nasal O2, Other (no heezing) Gastrointestinal: Yes: Normal Bowel Sounds, Soft Neurological: Yes: Alert, Oriented Labs: CBC, BMP 08/01/17 08:47 08/01/17 08:47 INR, PTT INR 2.43 (0.82-1.09) H 08/01/17 08:47 Problem List - Problems (1) Leukocytosis Assessment/Plan: secondary to prednisone no fever Microbiology 07/29/17 14:15 Urine - Urine Clean Catch Urine Culture - Final NO GROWTH OBTAINED 07/29/17 08:23 Blood - Peripheral Venous Blood Culture - Preliminary NO GROWTH OBTAINED AFTER 96 HOURS, INCUBATION TO CONTINUE FOR 1 DAYS. 07/29/17 08:23 Blood - Peripheral Venous Blood Culture - Preliminary NO GROWTH OBTAINED AFTER 96 HOURS, INCUBATION TO CONTINUE FOR 1 DAYS. 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 limited secondary to lower back pain-PT on board Code(s): M54.5 - LOW BACK PAIN (4) COPD (chronic obstructive pulmonary disease) Assessment/Plan: oxygen singulair claritin duonebs prednisone 30mg daily Code(s): J44.9 - CHRONIC OBSTRUCTIVE PULMONARY DISEASE, UNSPECIFIED Qualifiers: COPD type: COPD with acute exacerbation Qualified Code(s): J44.1 - Chronic obstructive pulmonary disease with (acute) exacerbation (5) Diabetes Assessment/Plan: on levemir Code(s): E11.9 - TYPE 2 DIABETES MELLITUS WITHOUT COMPLICATIONS Qualifiers: Diabetes mellitus type: type 2 Diabetes mellitus complication status: with neurologic complications
[2017-08-02] MEDS ORDERED: POLYETHYLENE GLYCOL 3350 119 GM BTL PO SCH (10:45)
[2017-08-02] MEDS: predniSONE 10 MG TABLET (UD) PO SCH (12:12)
--- NOTE | 2017-08-02 18:05 | CONSULT ---
Consult - text type - Consultation Consultation Note: NEUROSURGERY CONSULTATION Jagruti Bermudez is a 67 year old female with a long history (>12 years) of low back pain and sciatica (Right greater than Left). Patient has had 7 epidural injections and doesn't feel that she will respond to additional injection therapy. She is complaining of increasing pain and difficulty with ambulation. Plain films demonstrate mild to moderate degenerative changes with some loss of disc height and endplate sclerosis. MRI Lumbar pending. Will discuss potential treatment options after review of MRI.
[2017-08-02 18:17] LABS: INR 1.5 (0.82-1.09)
[2017-08-02] MEDS: WARFARIN NA 3 MG TABLET PO SCH ×2 (18:53→19:39)
[2017-08-02] MEDS ORDERED: WARFARIN NA 10 MG TABLET (FP) ONE (19:25)
[2017-08-02] MEDS ORDERED: WARFARIN NA 1 MG TABLET (FP) ONE (19:26)
[2017-08-02] MEDS ORDERED: WARFARIN NA 2 MG TABLET (UD) PO ONE (19:50)
[2017-08-02] MEDS: DOCUSATE SODIUM 100 MG CAPSULE (FP) PO SCH (22:10)
[2017-08-02] MEDS: MELATONIN 1 MG TABLET PO SCH (22:13)
[2017-08-03] MEDS: traMADol HCL 50 MG TABLET PO PRN (00:51)
[2017-08-03] MEDS: CARBIDOPA/LEVODOPA 25/100 TABLET (FP) PO SCH ×3 (05:42→21:22)
[2017-08-03] MEDS: ALBUTEROL SO4 0.083% IH SOL 2.5 MG/3 ML VIAL.NEB. NEB PRN ×4 (06:23→22:15)
[2017-08-03] MEDS: TORSEMIDE 20 MG TABLET (FP) PO SCH (06:40)
[2017-08-03] MEDS: INSULIN SLIDING SCALE (NOVOLOG) 1 VIAL SQ SCH ×4 (06:41→21:29)
[2017-08-03] MEDS: INSULIN DETEMIR 100 UNITS/ML MDV SQ SCH (06:41)
[2017-08-03 08:15] LABS: INR 1.56 (0.82-1.09); PROTHROMBIN TIME (PATIENT) 17.6 SEC (9.7-13.0)
--- NOTE | 2017-08-03 08:53 | PN ---
Progress Note, Physician History of Present Illness: c/p lbp c/o intermittent sob c/o constipation - Current Medication List Current Medications: Active Medications Acetaminophen (Tylenol -) 650 mg PO Q4H PRN PRN Reason: PAIN LEVEL 1-5 Last Admin: 07/31/17 18:23 Dose: 650 mg Albuterol Sulfate (Ventolin 0.083% Nebulizer Soln -) 1 amp NEB Q4H PRN PRN Reason: SHORT OF BREATH/WHEEZING Last Admin: 08/03/17 06:23 Dose: 1 amp Budesonide/Formoterol Fumarate (Symbicort 160/4.5mcg -) 2 puff IH BID [facility] Last Admin: 08/02/17 22:10 Dose: 2 puff Bupropion HCl (Wellbutrin Xl -) 300 mg PO DAILY [facility] Last Admin: 08/02/17 09:23 Dose: 300 mg Carbidopa/Levodopa (Sinemet 25/100 -) 1 each PO TID [facility] Last Admin: 08/03/17 05:42 Dose: 1 each Citalopram Hydrobromide (Celexa -) 10 mg PO DAILY [facility] Last Admin: 08/02/17 09:21 Dose: 10 mg Digoxin (Lanoxin -) 0.25 mg PO DAILY [facility] Last Admin: 08/02/17 09:23 Dose: 0.25 mg Docusate Sodium (Colace -) 300 mg PO HS [facility] Last Admin: 08/02/17 22:10 Dose: 300 mg Insulin Aspart (Novolog Vial Sliding Scale -) 1 vial SQ ACHS [facility] PRN Reason: Protocol Last Admin: 08/03/17 06:41 Dose: Not Given Insulin Detemir (Levemir Vial) 40 units SQ AM [facility] Last Admin: 08/03/17 06:41 Dose: 40 unit Loratadine (Claritin -) 10 mg PO DAILY [facility] Last Admin: 08/02/17 09:22 Dose: 10 mg Melatonin (Melatonin) 3 mg PO HS [facility] Last Admin: 08/02/17 22:13 Dose: 3 mg Polyethylene Glycol (Miralax (For Daily Use) -) 17 gm PO DAILY [facility] Last Admin: 08/02/17 12:11 Dose: 17 gm Pramipexole Dihydrochloride (Mirapex -) 0.5 mg PO BID@1000,1630 [facility] Last Admin: 08/02/17 18:19 Dose: 0.5 mg Pramipexole Dihydrochloride (Mirapex -) 1.5 mg PO HS [facility] Last Admin: 08/02/17 22:12 Dose: 1.5 mg Prednisone (Deltasone -) 30 mg PO DAILY [facility] Last Admin: 08/02/17 12:12 Dose: 30 mg Ranolazine (Ranexa -) 500 mg PO BID [facility] Last Admin: 08/02/17 23:16 Dose: 500 mg Tiotropium [place] (Spiriva -) 1 puff IH DAILY [facility] Last Admin: 08/02/17 09:26 Dose: 1 puff Topiramate (Topamax -) 150 mg PO BID [facility] Last Admin: 08/02/17 22:11 Dose: 150 mg Torsemide (Demadex -) 40 mg PO AM [facility] Last Admin: 08/03/17 06:40 Dose: 40 mg Tramadol HCl (Ultram -) 50 mg PO Q8H PRN PRN Reason: PAIN LEVEL 6-10 Last Admin: 08/03/17 00:51 Dose: 50 mg Triamcinolone Acetonide (Aristocort 0.1% Cream -) 1 applic TP BID [facility] Last Admin: 08/02/17 22:10 Dose: 1 applic Verapamil HCl (Calan Sr -) 240 mg PO DAILY [facility] Last Admin: 08/02/17 09:21 Dose: 240 mg Warfarin Sodium 10 mg/ (Warfarin Sodium 1 mg) 11 mg PO Mo@1800 [facility] Last Admin: 07/30/17 17:04 Dose: 11 mg Warfarin Sodium (Coumadin -) 9 mg PO SuTuWeThFrSa@1800 [facility] Last Admin: 08/02/17 19:39 Dose: 9 mg - Objective Vital Signs: Vital Signs Temperature 98.2 F 08/03/17 06:00 Pulse Rate 64 08/03/17 06:00 Respiratory Rate 20 08/03/17 06:00 Blood Pressure 120/46 08/03/17 06:00 O2 Sat by Pulse Oximetry (%) 96 07/31/17 09:00 Cardiovascular: Yes: Regular Rate and Rhythm Respiratory: Yes: Regular, CTA Bilaterally Gastrointestinal: Yes: Normal Bowel Sounds, Soft Labs: CBC, BMP 08/01/17 08:47 08/01/17 08:47 INR, PTT INR 1.56 (0.82-1.09) H 08/03/17 06:20 Problem List - Problems (1) Head trauma Assessment/Plan: S/P Fall on Coumadin -Head CT negative. Second Head CT nad -INR level therapeutic Code(s): S09.90XA - UNSPECIFIED INJURY OF HEAD, INITIAL ENCOUNTER (2) Afib Assessment/Plan: -Currently rate controlled -Continue Digoxin 0.25mg daily -Coumadin resumed add Lovenox -INR Low Code(s): I48.91 - UNSPECIFIED ATRIAL FIBRILLATION Qualifiers: Atrial fibrillation type: paroxysmal Qualified Code(s): I48.0 - Paroxysmal atrial fibrillation (3) CAD (coronary artery disease) Code(s): I25.10 - ATHSCL HEART DISEASE OF [place] CORONARY ARTERY W/O ANG PCTRS (4) COPD (chronic obstructive pulmonary disease) Code(s): J44.9 - CHRONIC OBSTRUCTIVE PULMONARY DISEASE, UNSPECIFIED Qualifiers: COPD type: COPD with acute exacerbation Qualified Code(s): J44.1 - Chronic obstructive pulmonary disease with (acute) exacerbation (5) Diabetes Code(s): E11.9 - TYPE 2 DIABETES MELLITUS WITHOUT COMPLICATIONS Qualifiers: Diabetes mellitus type: type 2 Diabetes mellitus complication status: with neurologic complications (6) Lupus Code(s): L93.0 - DISCOID LUPUS ERYTHEMATOSUS (7) S/P MVR (mitral valve repair) Code(s): Z98.890 - OTHER SPECIFIED POSTPROCEDURAL STATES (8) UTI (lower urinary tract infection) Assessment/Plan: -U/A revealed 2+ LE with Urine WBC 78--culture negative -Patient does have a white count >16 but does not have a septic picture. -Has history of MRSA in urine -Will discontinue Ceftriaxone 1gm IVPB daily and Vancomycin 1000mg IVPB daily -Urine and blood cultures neg Code(s): N39.0 - URINARY TRACT INFECTION, SITE NOT SPECIFIED (9) Sleep apnea Assessment/Plan: -Patient reports day time drowsiness and falling asleep. -Currently on CPAP at night and does have a medical lab technician, however, she has not seen him since her last admission -I suspect patient abruptly fell asleep last night due to sleep apnea, which caused her to fall -PULM consult placed with Dr. Schaefer Code(s): G47.30 - SLEEP APNEA, UNSPECIFIED (10) Retention, urine Assessment/Plan: -CATH PRN Code(s): R33.9 - RETENTION OF URINE, UNSPECIFIED (11) Acute bilateral low back pain Assessment/Plan: -tramadol -xray noted -mri done result pending -dr tong and dr degroot consults ordered -pain control -stool softner -cannot walk limited secondary to lower back pain-PT on board Code(s): M54.5 - LOW BACK PAIN
--- NOTE | 2017-08-03 09:11 | PN ---
Progress Note (short form) - Note Progress Note: PULMONARY VSS/AFEBRILE ANICTERIC CHEST CLEAR S1S2 MECHANICAL VALVE CLICK BS+ SOFT NONTENDER NO EDEMA LABS/MEDS/IMAGES REVIEWED (1) Afib Code(s): I48.91 - UNSPECIFIED ATRIAL FIBRILLATION Qualifiers: Atrial fibrillation type: paroxysmal Qualified Code(s): I48.0 - Paroxysmal atrial fibrillation (2) CAD (coronary artery disease) Code(s): I25.10 - ATHSCL HEART DISEASE OF [place] CORONARY ARTERY W/O ANG PCTRS (3) CHF (congestive heart failure) Code(s): I50.9 - HEART FAILURE, UNSPECIFIED (4) Diabetes mellitus, insulin dependent (IDDM), uncontrolled Code(s): E10.65 - TYPE 1 DIABETES MELLITUS WITH HYPERGLYCEMIA (5) Dyslipidemia Code(s): E78.5 - HYPERLIPIDEMIA, UNSPECIFIED (7) HTN (hypertension) Code(s): I10 - ESSENTIAL (PRIMARY) HYPERTENSION Qualifiers: Hypertension type: essential hypertension Qualified Code(s): I10 - Essential (primary) hypertension (8) Hyperlipidemia associated with type 2 diabetes mellitus Code(s): E11.69 - TYPE 2 DIABETES MELLITUS WITH OTHER SPECIFIED COMPLICATION; E78.5 - HYPERLIPIDEMIA, UNSPECIFIED (9) IDDM (insulin dependent diabetes mellitus) Code(s): E11.9 - TYPE 2 DIABETES MELLITUS WITHOUT COMPLICATIONS; Z79.4 - FOOD AND BEVERAGE SERVER (CURRENT) USE OF INSULIN (10) Lupus Code(s): L93.0 - DISCOID LUPUS ERYTHEMATOSUS (11) Mitral valve replaced Code(s): Z95.2 - PRESENCE OF PROSTHETIC HEART VALVE (12) FIGUEROA (obstructive sleep apnea) Code(s): G47.33 - OBSTRUCTIVE SLEEP APNEA (ADULT) (PEDIATRIC) (13) S/P MVR (mitral valve repair) Code(s): Z98.890 - OTHER SPECIFIED POSTPROCEDURAL STATES (14) SLE (systemic lupus erythematosus) Code(s): M32.9 - SYSTEMIC LUPUS ERYTHEMATOSUS, UNSPECIFIED (15) Type 2 diabetes mellitus with hyperosmolarity without nonketotic hyperglycemic-hyperosmolar coma ([facility]) Code(s): E11.00 - TYPE 2 DIAB W HYPROSM W/O NONKET HYPRGLY-HYPROS COMA ([facility]) (16) Unsteady gait Code(s): R26.81 - UNSTEADINESS ON FEET Assessment/Plan Inhaled bronchodilators O2 to maintain saturation Will need re-titration after discharge to ensure optimal PAP therapy Sleep hygiene practices Melatonin Maki WAYNE MD
[2017-08-03] MEDS: RANOLAZINE E.R. 500 MG TABLET (FP) PO SCH ×2 (09:52→21:22)
[2017-08-03] MEDS: LORATADINE 10 MG TABLET PO SCH (09:53)
[2017-08-03] MEDS: VERAPAMIL HCL 240 MG E.R. TABLET (FP) PO SCH (09:53)
[2017-08-03] MEDS: predniSONE 10 MG TABLET (UD) PO SCH (09:53)
[2017-08-03] MEDS: CITALOPRAM HYDROBROMIDE 20 MG TABLET (FP) PO SCH (09:54)
[2017-08-03] MEDS: PRAMIPEXOLE DIHYDROCHLORIDE 0.5 MG TABLET PO SCH ×3 (09:55→21:22)
[2017-08-03] MEDS: TOPIRAMATE 100 MG TABLET PO SCH ×2 (09:56→21:21)
[2017-08-03] MEDS: DIGOXIN 0.25 MG TABLET (FP) PO SCH (09:56)
[2017-08-03] MEDS: POLYETHYLENE GLYCOL 3350 119 GM BTL PO SCH ×2 (09:58→21:23)
[2017-08-03] MEDS: ENOXAPARIN NA (PORCINE) 80 MG/0.8 ML DISP.SYRIN SQ SCH ×2 (09:58→21:22)
[2017-08-03] MEDS: TIOTROPIUM BROMIDE 18 MCG CAPSULES IH SCH (09:58)
[2017-08-03] MEDS: BUDESONIDE/FORMETEROL FUMARATE 160/4.5 mcg INHALER IH SCH ×2 (09:59→21:28)
[2017-08-03] MEDS: TRIAMCINOLONE ACET 0.1% CREAM 15 GM TUBE TP SCH ×2 (10:00→21:28)
[2017-08-03] MEDS ORDERED: PT OWN MED DRAWER 7, Y5N ONE ×2 (17:26→21:11)
[2017-08-03] MEDS: WARFARIN NA 3 MG TABLET PO SCH (17:34)
[2017-08-03] MEDS ORDERED: WARFARIN NA 2 MG TABLET (UD) PO ONE (19:30)
[2017-08-03] MEDS: DOCUSATE SODIUM 100 MG CAPSULE (FP) PO SCH (21:21)
[2017-08-03] MEDS: MELATONIN 1 MG TABLET PO SCH (21:22)
--- NOTE | 2017-08-03 21:55 | PN ---
Progress Note (short form) - Note Progress Note: MRI reviewed and multilevel degenerative changes noted. L23 with some progression since MRI Lumbar in 2014. No acute pathology mandating Neurosurgical intervention. Although the patient may benefit from decompression and stabilization at one or more levels, accurate identification of the pain generators may help target specific levels. I feel that assessment by Dr. Stanley will be very helpful. If the patient cannot achieve relief from further interventional pain efforts, will develop a potential plan for surgical intervention. Patient is not an ideal candidate for major spinal surgery with multilevel decompression and fusion, however, this may be the only way to afford her relief. Provacative discography may be of use to help narrow down the focus to one or two levels.
[2017-08-04] MEDS: TORSEMIDE 20 MG TABLET (FP) PO SCH (06:05)
[2017-08-04] MEDS: CARBIDOPA/LEVODOPA 25/100 TABLET (FP) PO SCH ×3 (06:05→21:15)
[2017-08-04] MEDS: INSULIN DETEMIR 100 UNITS/ML MDV SQ SCH (06:07)
[2017-08-04] MEDS: INSULIN SLIDING SCALE (NOVOLOG) 1 VIAL SQ SCH ×4 (06:07→21:15)
[2017-08-04] MEDS: ALBUTEROL SO4 0.083% IH SOL 2.5 MG/3 ML VIAL.NEB. NEB PRN ×3 (07:43→20:15)
[2017-08-04] MEDS: traMADol HCL 50 MG TABLET PO PRN (08:47)
--- NOTE | 2017-08-04 09:07 | PN ---
Progress Note, Physician History of Present Illness: c/p lbp c/o intermittent sob c/o constipation - Current Medication List Current Medications: Active Medications Acetaminophen (Tylenol -) 650 mg PO Q4H PRN PRN Reason: PAIN LEVEL 1-5 Last Admin: 07/31/17 18:23 Dose: 650 mg Albuterol Sulfate (Ventolin 0.083% Nebulizer Soln -) 1 amp NEB Q4H PRN PRN Reason: SHORT OF BREATH/WHEEZING Last Admin: 08/04/17 07:43 Dose: 1 amp Budesonide/Formoterol Fumarate (Symbicort 160/4.5mcg -) 2 puff IH BID [facility] Last Admin: 08/03/17 21:28 Dose: 2 puff Bupropion HCl (Wellbutrin Xl -) 300 mg PO DAILY [facility] Last Admin: 08/03/17 10:06 Dose: 300 mg Carbidopa/Levodopa (Sinemet 25/100 -) 1 each PO TID [facility] Last Admin: 08/04/17 06:05 Dose: 1 each Citalopram Hydrobromide (Celexa -) 10 mg PO DAILY [facility] Last Admin: 08/03/17 09:54 Dose: 10 mg Digoxin (Lanoxin -) 0.25 mg PO DAILY [facility] Last Admin: 08/03/17 09:56 Dose: 0.25 mg Docusate Sodium (Colace -) 300 mg PO HS [facility] Last Admin: 08/03/17 21:21 Dose: 300 mg Enoxaparin Sodium (Lovenox -) 80 mg SQ BID [facility] Last Admin: 08/03/17 21:22 Dose: 80 mg Insulin Aspart (Novolog Vial Sliding Scale -) 1 vial SQ [facility] PRN Reason: Protocol Last Admin: 08/04/17 06:07 Dose: 2 units Insulin Detemir (Levemir Vial) 40 units SQ AM [facility] Last Admin: 08/04/17 06:07 Dose: 40 unit Loratadine (Claritin -) 10 mg PO DAILY [facility] Last Admin: 08/03/17 09:53 Dose: 10 mg Melatonin (Melatonin) 3 mg PO HS [facility] Last Admin: 08/03/17 21:22 Dose: 3 mg Polyethylene Glycol (Miralax (For Daily Use) -) 17 gm PO BID [facility] Last Admin: 08/03/17 21:23 Dose: 17 gm Pramipexole Dihydrochloride (Mirapex -) 0.5 mg PO BID@1000,1630 [facility] Last Admin: 08/03/17 17:34 Dose: 0.5 mg Pramipexole Dihydrochloride (Mirapex -) 1.5 mg PO HS [facility] Last Admin: 08/03/17 21:22 Dose: 1.5 mg Prednisone (Deltasone -) 30 mg PO DAILY [facility] Last Admin: 08/03/17 09:53 Dose: 30 mg Ranolazine (Ranexa -) 500 mg PO BID [facility] Last Admin: 08/03/17 21:22 Dose: 500 mg Tiotropium [place] (Spiriva -) 1 puff IH DAILY [facility] Last Admin: 08/03/17 09:58 Dose: 1 puff Topiramate (Topamax -) 150 mg PO BID [facility] Last Admin: 08/03/17 21:21 Dose: 150 mg Torsemide (Demadex -) 40 mg PO AM [facility] Last Admin: 08/04/17 06:05 Dose: 40 mg Tramadol HCl (Ultram -) 50 mg PO Q8H PRN PRN Reason: PAIN LEVEL 6-10 Last Admin: 08/04/17 08:47 Dose: 50 mg Triamcinolone Acetonide (Aristocort 0.1% Cream -) 1 applic TP BID [facility] Last Admin: 08/03/17 21:28 Dose: 1 applic Verapamil HCl (Calan Sr -) 240 mg PO DAILY [facility] Last Admin: 08/03/17 09:53 Dose: 240 mg Warfarin Sodium 10 mg/ (Warfarin Sodium 1 mg) 11 mg PO Mo@1800 [facility] Last Admin: 07/30/17 17:04 Dose: 11 mg Warfarin Sodium (Coumadin -) 9 mg PO SuTuWeThFrSa@1800 [facility] Last Admin: 08/03/17 17:34 Dose: 9 mg - Objective Vital Signs: Vital Signs Temperature 97.1 F L 08/04/17 06:00 Pulse Rate 60 08/04/17 06:00 Respiratory Rate 20 08/04/17 06:00 Blood Pressure 155/67 08/04/17 06:00 O2 Sat by Pulse Oximetry (%) 96 08/03/17 21:00 Cardiovascular: Yes: S1, S2 Respiratory: Yes: Regular, CTA Bilaterally Gastrointestinal: Yes: Normal Bowel Sounds, Soft Labs: CBC, BMP 08/01/17 08:47 08/01/17 08:47 INR, PTT INR 1.56 (0.82-1.09) H 08/03/17 06:20 Problem List - Problems (1) Head trauma Code(s): S09.90XA - UNSPECIFIED INJURY OF HEAD, INITIAL ENCOUNTER (2) Afib Assessment/Plan: -Currently rate controlled -Continue Digoxin 0.25mg daily -Coumadin resumed add Lovenox -INR Low Code(s): I48.91 - UNSPECIFIED ATRIAL FIBRILLATION Qualifiers: Atrial fibrillation type: paroxysmal Qualified Code(s): I48.0 - Paroxysmal atrial fibrillation (3) CAD (coronary artery disease) Assessment/Plan: -no cp -same meds Code(s): I25.10 - ATHSCL HEART DISEASE OF [place] CORONARY ARTERY W/O ANG PCTRS (4) COPD (chronic obstructive pulmonary disease) Assessment/Plan: -SOB YESTERDAI -CXR -Continue Singulair 10mg daily -Continue Claritin 10mg daily -Continue Duo-Neb PRN -PULM CONCULT -increase prednisone to 30 Code(s): J44.9 - CHRONIC OBSTRUCTIVE PULMONARY DISEASE, UNSPECIFIED Qualifiers: COPD type: COPD with acute exacerbation Qualified Code(s): J44.1 - Chronic obstructive pulmonary disease with (acute) exacerbation (5) Diabetes Assessment/Plan: -Levemir 40 units in the am -ISS -BGM -Lyrica 100mg BID PRN Code(s): E11.9 - TYPE 2 DIABETES MELLITUS WITHOUT COMPLICATIONS Qualifiers: Diabetes mellitus type: type 2 Diabetes mellitus complication status: with neurologic complications (6) Lupus Code(s): L93.0 - DISCOID LUPUS ERYTHEMATOSUS (7) S/P MVR (mitral valve repair) Code(s): Z98.890 - OTHER SPECIFIED POSTPROCEDURAL STATES (8) UTI (lower urinary tract infection) Assessment/Plan: -U/A revealed 2+ LE with Urine WBC 78--culture negative -Patient does have a white count >16 but does not have a septic picture. -Has history of MRSA in urine -Will discontinue Ceftriaxone 1gm IVPB daily and Vancomycin 1000mg IVPB daily -Urine and blood cultures neg Code(s): N39.0 - URINARY TRACT INFECTION, SITE NOT SPECIFIED (9) Sleep apnea Assessment/Plan: -Patient reports day time drowsiness and falling asleep. -Currently on CPAP at night and does have a animal caregiver, however, she has not seen him since her last admission -I suspect patient abruptly fell asleep last night due to sleep apnea, which caused her to fall -PULM consult placed with Dr. Schaefer Code(s): G47.30 - SLEEP APNEA, UNSPECIFIED (10) Retention, urine Assessment/Plan: -CATH PRN Code(s): R33.9 - RETENTION OF URINE, UNSPECIFIED (11) Acute bilateral low back pain Assessment/Plan: -tramadol -xray noted -mri done result NOTED AND DISCUSSED WITH PT -dr tong and dr degroot consults ordered -pain control -stool softner -cannot walk limited secondary to lower back pain-PT on board Code(s): M54.5 - LOW BACK PAIN
[2017-08-04] MEDS ORDERED: PT OWN MED DRAWER 7, Y5N ONE ×3 (10:06→20:28)
[2017-08-04] MEDS: VERAPAMIL HCL 240 MG E.R. TABLET (FP) PO SCH (10:09)
[2017-08-04] MEDS: CITALOPRAM HYDROBROMIDE 20 MG TABLET (FP) PO SCH (10:09)
[2017-08-04] MEDS: LORATADINE 10 MG TABLET PO SCH (10:10)
[2017-08-04] MEDS: predniSONE 10 MG TABLET (UD) PO SCH (10:11)
[2017-08-04] MEDS: DIGOXIN 0.25 MG TABLET (FP) PO SCH (10:11)
[2017-08-04] MEDS: POLYETHYLENE GLYCOL 3350 119 GM BTL PO SCH ×2 (10:12→21:15)
[2017-08-04] MEDS: RANOLAZINE E.R. 500 MG TABLET (FP) PO SCH ×2 (10:13→21:14)
[2017-08-04] MEDS: PRAMIPEXOLE DIHYDROCHLORIDE 0.5 MG TABLET PO SCH ×3 (10:13→21:14)
[2017-08-04] MEDS: TOPIRAMATE 100 MG TABLET PO SCH ×2 (10:14→21:14)
[2017-08-04] MEDS: BUDESONIDE/FORMETEROL FUMARATE 160/4.5 mcg INHALER IH SCH ×2 (10:15→21:17)
[2017-08-04] MEDS: TIOTROPIUM BROMIDE 18 MCG CAPSULES IH SCH (10:15)
[2017-08-04] MEDS: ENOXAPARIN NA (PORCINE) 80 MG/0.8 ML DISP.SYRIN SQ SCH ×2 (10:16→21:15)
[2017-08-04] MEDS: TRIAMCINOLONE ACET 0.1% CREAM 15 GM TUBE TP SCH ×2 (10:16→21:17)
--- NOTE | 2017-08-04 10:34 | PN ---
Progress Note (short form) - Note Progress Note: PULMONARY VSS/AFEBRILE ANICTERIC CHEST CLEAR S1S2 MECHANICAL VALVE CLICK BS+ SOFT NONTENDER NO EDEMA LABS/MEDS/IMAGES REVIEWED (1) Afib Code(s): I48.91 - UNSPECIFIED ATRIAL FIBRILLATION Qualifiers: Atrial fibrillation type: paroxysmal Qualified Code(s): I48.0 - Paroxysmal atrial fibrillation (2) CAD (coronary artery disease) Code(s): I25.10 - ATHSCL HEART DISEASE OF [place] CORONARY ARTERY W/O ANG PCTRS (3) CHF (congestive heart failure) Code(s): I50.9 - HEART FAILURE, UNSPECIFIED (4) Diabetes mellitus, insulin dependent (IDDM), uncontrolled Code(s): E10.65 - TYPE 1 DIABETES MELLITUS WITH HYPERGLYCEMIA (5) Dyslipidemia Code(s): E78.5 - HYPERLIPIDEMIA, UNSPECIFIED (7) HTN (hypertension) Code(s): I10 - ESSENTIAL (PRIMARY) HYPERTENSION Qualifiers: Hypertension type: essential hypertension Qualified Code(s): I10 - Essential (primary) hypertension (8) Hyperlipidemia associated with type 2 diabetes mellitus Code(s): E11.69 - TYPE 2 DIABETES MELLITUS WITH OTHER SPECIFIED COMPLICATION; E78.5 - HYPERLIPIDEMIA, UNSPECIFIED (9) IDDM (insulin dependent diabetes mellitus) Code(s): E11.9 - TYPE 2 DIABETES MELLITUS WITHOUT COMPLICATIONS; Z79.4 - BOOK SALESMAN (CURRENT) USE OF INSULIN (10) Lupus Code(s): L93.0 - DISCOID LUPUS ERYTHEMATOSUS (11) Mitral valve replaced Code(s): Z95.2 - PRESENCE OF PROSTHETIC HEART VALVE (12) FIGUEROA (obstructive sleep apnea) Code(s): G47.33 - OBSTRUCTIVE SLEEP APNEA (ADULT) (PEDIATRIC) (13) S/P MVR (mitral valve repair) Code(s): Z98.890 - OTHER SPECIFIED POSTPROCEDURAL STATES (14) SLE (systemic lupus erythematosus) Code(s): M32.9 - SYSTEMIC LUPUS ERYTHEMATOSUS, UNSPECIFIED (15) Type 2 diabetes mellitus with hyperosmolarity without nonketotic hyperglycemic-hyperosmolar coma ([facility]) Code(s): E11.00 - TYPE 2 DIAB W HYPROSM W/O NONKET HYPRGLY-HYPROS COMA ([facility]) (16) Unsteady gait Code(s): R26.81 - UNSTEADINESS ON FEET Assessment/Plan Inhaled bronchodilators O2 to maintain saturation Will need re-titration after discharge to ensure optimal PAP therapy Sleep hygiene practices Melatonin Maki WAYNE MD
[2017-08-04] MEDS: ACETAMINOPHEN 325 MG TABLET (FP) PO PRN ×2 (11:45→23:07)
[2017-08-04 11:55] LABS: INR 2.36 (0.82-1.09); PROTHROMBIN TIME (PATIENT) 26.7 SEC (9.7-13.0)
--- NOTE | 2017-08-04 17:36 | CONSULT ---
Consult Consult Specialty:: [facility] management . - History of Present Illness Chief Complaint: Back pain History of Present Illness: 67 yr old female with chronic LBP with numness in legs. She ahs PT and spinal injection in past . Pain8.10 with multiple medical comorbidity. - History Source History Provided By: Patient - Past Medical History TROUBLE LOCATOR TEST DESK: Yes: CVA, Migraine, Other (light-headedness and dizziness) Cardio/Vascular: Yes: AFIB, CAD, CHF, HTN, Hyperlipdemia, Other (S/P [facility] mitral valve replacement) Pulmonary: Yes: Asthma, COPD, Sleep Apnea (on CPAP at night) Gastrointestinal: Yes: Constipation, Diverticulosis, GI Bleed, Hemorrhoids ...: No Musculoskeletal: Yes: Chronic low back pain, Other (Spinal stenosis) Rheumatology: Yes: Lupus, Other (APLAS (BOTH LUPUS AND APLS ARE QUESTIONABLE)) Endocrine: Yes: Diabetes Mellitus Additional Medical History: morbid obesity - Past Surgical History Past Surgical History: Yes: CABG, Cholecystectomy, Hysterectomy, Oopherectomy - Alcohol/Substance Use Hx Alcohol Use: No History of Substance Use: reports: None - Smoking History Smoking history: Never smoked Have you smoked in the past 12 months: No Aproximately how many cigarettes per day: 0 If you are a former smoker, when did you quit?: many years - Social History Usual Living Arrangement: With Spouse ADL: Independent History of Recent Travel: No Home Medications - Allergies Allergies/Adverse Reactions: Allergies Allergy/AdvReac Type Severity Reaction Status Date / Time lactose Allergy Mild Verified 07/29/17 02:43 Beta-Blockers Allergy Verified 07/29/17 02:43 (Beta-Adrenergic Bloc Fish Containing Products Allergy Verified 07/29/17 02:43 fish derived Allergy Verified 07/29/17 02:43 Iodinated Contrast- Oral and Allergy Verified 07/29/17 02:43 IV Dye [IV Dye, Iodine Containing Contrast ] shellfish derived Allergy Verified 07/29/17 02:43 - Home Medications Home Medications: Ambulatory Orders Albuterol 0.083% Nebulizer Brigitte [Ventolin 0.083% Nebulizer Soln -] 1 neb NEB QID 06/21/17 Bupropion HCl [Wellbutrin Xl] 300 mg PO DAILY 06/21/17 Carbidopa/Levodopa [Carbidopa-Levodopa 25-100 Tab] 1 each PO TID 06/21/17 Cholecalciferol (Vitamin D3) [Vitamin D -] 1,000 unit PO DAILY 06/21/17 Citalopram Hydrobromide [Celexa -] 10 mg PO DAILY 06/21/17 Digoxin [Lanoxin -] 0.25 mg PO DAILY 06/21/17 Ferrous Sulfate [Iron] 325 mg PO DAILY 06/21/17 Hypromellose 0.5% Opth Soln [Artificial Tears] 1 drop OD QID 06/21/17 Pantoprazole Sodium [Protonix] 40 mg PO DAILY 06/21/17 Pramipexole Di-HCl [Mirapex] 0.5 mg PO TID 06/21/17 Pregabalin [Lyrica] 25 mg PO BID 06/21/17 Ranolazine [Ranexa] 500 mg PO BID 06/21/17 Topiramate [Topamax] 150 mg PO BID 06/21/17 Torsemide [Demadex -] 20 mg PO HS 06/21/17 Verapamil HCl [Calan Sr] 240 mg PO DAILY 06/21/17 Warfarin Sodium [Coumadin] 9 mg PO HS 06/21/17 Triamcinolone 0.1% Cream [Aristocort 0.1% Cream -] 1 applic TP BID #60 gm predniSONE [Deltasone -] 10 mg PO DAILY #100 tablet 06/28/17 Cetirizine HCl 10 mg PO BID 07/29/17 Coumadin 11 mg PO WEEKLY 07/29/17 Insulin Glargine,Hum.rec.anlog [Lantus Solostar PEN (NF)] 40 units SQ AM Insulin Lispro [Humalog] 0 unit SQ TID 07/29/17 Pramipexole Di-HCl [Mirapex] 1 mg PO HS 07/29/17 Torsemide [Demadex] 40 mg PO AM 07/29/17 Family Disease History - Family Disease History Family Disease History: Diabetes: Grandparent, Mother, Heart Disease: Father, Other: Sister (Lupus) Review of Systems - Review of Systems Constitutional: reports: No Symptoms Eyes: reports: No Symptoms HENT: reports: No Symptoms Neck: reports: No Symptoms Respiratory: reports: SOB on Exertion Gastrointestinal: reports: Constipation Genitourinary: reports: No Symptoms Musculoskeletal: reports: Back Pain Neurological: reports: No Symptoms Pain Intensity: 8 Physical Exam Vital Signs: Vital Signs Temperature 98.1 F 08/04/17 16:30 Pulse Rate 67 08/04/17 16:30 Respiratory Rate 20 08/04/17 16:30 Blood Pressure 138/60 08/04/17 16:30 O2 Sat by Pulse Oximetry (%) 98 08/04/17 09:00 Constitutional: Yes: Well Nourished Eyes: Yes: WNL HENT: Yes: WNL Neck: Yes: WNL Respiratory: Yes: On Nasal O2 Gastrointestinal: Yes: WNL Musculoskeletal: Yes: Back Pain Extremities: Yes: WNL Neurological: Yes: WNL ...Motor Strength: WNL Psychiatric: Yes: WNL Labs: CBC, BMP 08/01/17 08:47 08/01/17 08:47 Current Medications Generic Name Dose Route Start Last Admin Trade Name Freq PRN Reason Stop Dose Admin Acetaminophen 650 mg 07/30/17 15:47 08/04/17 11:45 Tylenol - PO 650 mg Q4H PRN Administration PAIN LEVEL 1-5 Albuterol Sulfate 1 amp 08/01/17 13:11 08/04/17 15:16 Ventolin 0.083% Nebulizer Soln - NEB 1 amp Q4H PRN Administration SHORT OF BREATH/WHEEZING Budesonide/Formoterol Fumarate 2 puff 08/01/17 14:00 08/04/17 10:15 Symbicort 160/4.5mcg - IH 2 puff BID [facility]RIS Administration Bupropion HCl 300 mg 07/29/17 18:45 08/04/17 10:15 Wellbutrin Xl - PO 300 mg DAILY [facility] Administration Carbidopa/Levodopa 1 each 07/29/17 14:00 08/04/17 13:35 Sinemet 25/100 - PO 1 each TID [facility] Administration Citalopram Hydrobromide 10 mg 07/29/17 12:00 08/04/17 10:09 Celexa - PO 10 mg DAILY [facility] Administration Digoxin 0.25 mg 07/29/17 10:00 08/04/17 10:11 Lanoxin - PO 0.25 mg DAILY [facility] Administration Docusate Sodium 300 mg 08/02/17 22:00 08/03/17 21:21 Colace - PO 300 mg HS [facility] Administration Enoxaparin Sodium 80 mg 08/03/17 10:00 08/04/17 10:16 Lovenox - SQ 80 mg BID [facility] Administration Insulin Aspart 1 vial 07/29/17 11:00 08/04/17 11:45 Novolog Vial Sliding Scale - SQ Not Given ACHS PENDING SALE TO [facility] Protocol Insulin Detemir 40 units 07/29/17 07:00 08/04/17 06:07 Levemir Vial SQ 40 unit AM [facility]IS Administration Loratadine 10 mg 07/29/17 10:00 08/04/17 10:10 Claritin - PO 10 mg DAILY [facility] Administration Melatonin 3 mg 07/29/17 22:00 08/03/17 21:22 Melatonin PO 3 mg HS CHRIS Administration Polyethylene Glycol 17 gm 08/03/17 10:00 08/04/17 10:12 Miralax (For Daily Use) - PO Not Given BID CHRIS Pramipexole Dihydrochloride 0.5 mg 07/30/17 10:00 08/04/17 16:30 Mirapex - PO 0.5 mg BID@1000,1630 [facility] Administration Pramipexole Dihydrochloride 1.5 mg 07/30/17 22:00 08/03/17 21:22 Mirapex - PO 1.5 mg HS CHRIS Administration Prednisone 30 mg 08/02/17 11:00 08/04/17 10:11 Deltasone - PO 30 mg DAILY [facility] Administration Ranolazine 500 mg 07/29/17 22:00 08/04/17 10:13 Ranexa - PO 500 mg BID [facility]IS Administration Tiotropium [place] 1 puff 08/01/17 13:15 08/04/17 10:15 Spiriva - IH 1 puff DAILY [facility] Administration Topiramate 150 mg 07/29/17 22:00 08/04/17 10:14 Topamax - PO 150 mg BID [facility]IS Administration Torsemide 40 mg 07/30/17 07:00 08/04/17 06:05 Demadex - PO 40 mg AM [facility]IS Administration Tramadol HCl 50 mg 08/01/17 08:44 08/04/17 08:47 Ultram - PO 50 mg Q8H PRN Administration PAIN LEVEL 6-10 Triamcinolone Acetonide 1 applic 07/29/17 22:00 08/04/17 10:16 Aristocort 0.1% Cream - TP 1 applic BID [facility]IS Administration Verapamil HCl 240 mg 07/30/17 10:00 08/04/17 10:09 Calan Sr - PO 240 mg DAILY CH[facility]IS Administration Warfarin Sodium 10 mg/ 11 mg 07/30/17 18:00 07/30/17 17:04 Warfarin Sodium 1 mg PO 11 mg Mo@1800 [facility] Administration Warfarin Sodium 9 mg 07/29/17 18:45 08/03/17 17:34 Coumadin - PO 9 mg SuTuWeThFrSa@1800 [facility]IS Administration Imaging - Results X-ray: Report Reviewed MRI: Report Reviewed Problem List - Problems (1) Low back pain Code(s): M54.5 - LOW BACK PAIN Qualifiers: Chronicity: chronic Sciatica laterality: bilateral sciatica Assessment/Plan Discussed in detail and answered all her questions. 1. cotinue current medication and care . 2. D/C Tramadol , start oxycoone 5 mg po TID PRN. She will f/u with DR. Bailey after discharge. Physical therapy. Thank you very much.
[2017-08-04] MEDS: WARFARIN NA 3 MG TABLET PO SCH (17:41)
[2017-08-04] MEDS: oxyCODONE HCL 5 MG TABLET PO PRN (19:55)
[2017-08-04] MEDS: MELATONIN 1 MG TABLET PO SCH (21:15)
[2017-08-04] MEDS: DOCUSATE SODIUM 100 MG CAPSULE (FP) PO SCH (21:15)
[2017-08-05] MEDS: INSULIN SLIDING SCALE (NOVOLOG) 1 VIAL SQ SCH ×4 (06:11→21:44)
[2017-08-05] MEDS: TORSEMIDE 20 MG TABLET (FP) PO SCH (06:11)
[2017-08-05] MEDS: CARBIDOPA/LEVODOPA 25/100 TABLET (FP) PO SCH ×3 (06:11→21:43)
[2017-08-05] MEDS: INSULIN DETEMIR 100 UNITS/ML MDV SQ SCH (06:11)
[2017-08-05] MEDS: ALBUTEROL SO4 0.083% IH SOL 2.5 MG/3 ML VIAL.NEB. NEB PRN ×3 (06:31→20:55)
[2017-08-05] MEDS: oxyCODONE HCL 5 MG TABLET PO PRN ×3 (08:20→22:10)
[2017-08-05] MEDS ORDERED: PT OWN MED DRAWER 7, Y5N ONE ×3 (09:38→20:47)
[2017-08-05] MEDS ORDERED: predniSONE 10 MG TABLET (UD) PO SCH (10:00)
[2017-08-05] MEDS: VERAPAMIL HCL 240 MG E.R. TABLET (FP) PO SCH (10:08)
[2017-08-05] MEDS: CITALOPRAM HYDROBROMIDE 20 MG TABLET (FP) PO SCH (10:09)
[2017-08-05] MEDS: LORATADINE 10 MG TABLET PO SCH (10:10)
[2017-08-05] MEDS: predniSONE 10 MG TABLET (UD) PO SCH (10:10)
[2017-08-05] MEDS: DIGOXIN 0.25 MG TABLET (FP) PO SCH (10:11)
[2017-08-05] MEDS: POLYETHYLENE GLYCOL 3350 119 GM BTL PO SCH ×2 (10:11→21:49)
[2017-08-05] MEDS: PRAMIPEXOLE DIHYDROCHLORIDE 0.5 MG TABLET PO SCH ×3 (10:12→21:43)
[2017-08-05] MEDS: RANOLAZINE E.R. 500 MG TABLET (FP) PO SCH ×2 (10:12→21:43)
[2017-08-05] MEDS: TOPIRAMATE 100 MG TABLET PO SCH ×2 (10:13→21:43)
[2017-08-05] MEDS: BUDESONIDE/FORMETEROL FUMARATE 160/4.5 mcg INHALER IH SCH ×2 (10:15→21:47)
[2017-08-05] MEDS: TIOTROPIUM BROMIDE 18 MCG CAPSULES IH SCH (10:15)
[2017-08-05] MEDS: TRIAMCINOLONE ACET 0.1% CREAM 15 GM TUBE TP SCH ×2 (10:16→21:47)
[2017-08-05] MEDS: ENOXAPARIN NA (PORCINE) 80 MG/0.8 ML DISP.SYRIN SQ SCH ×2 (10:16→21:44)
--- NOTE | 2017-08-05 11:03 | PN ---
Progress Note, Physician History of Present Illness: c/p lbp c/o intermittent sob c/o constipation - Current Medication List Current Medications: Active Medications Acetaminophen (Tylenol -) 650 mg PO Q4H PRN PRN Reason: PAIN LEVEL 1-5 Last Admin: 08/04/17 23:07 Dose: 650 mg Albuterol Sulfate (Ventolin 0.083% Nebulizer Soln -) 1 amp NEB Q4H PRN PRN Reason: SHORT OF BREATH/WHEEZING Last Admin: 08/05/17 06:31 Dose: 1 amp Budesonide/Formoterol Fumarate (Symbicort 160/4.5mcg -) 2 puff IH BID [facility] Last Admin: 08/05/17 10:15 Dose: 2 puff Bupropion HCl (Wellbutrin Xl -) 300 mg PO DAILY [facility] Last Admin: 08/05/17 10:15 Dose: 300 mg Carbidopa/Levodopa (Sinemet 25/100 -) 1 each PO TID [facility] Last Admin: 08/05/17 06:11 Dose: 1 each Citalopram Hydrobromide (Celexa -) 10 mg PO DAILY [facility] Last Admin: 08/05/17 10:09 Dose: 10 mg Digoxin (Lanoxin -) 0.25 mg PO DAILY [facility] Last Admin: 08/05/17 10:11 Dose: 0.25 mg Docusate Sodium (Colace -) 300 mg PO HS [facility] Last Admin: 08/04/17 21:15 Dose: 300 mg Enoxaparin Sodium (Lovenox -) 80 mg SQ BID [facility] Last Admin: 08/05/17 10:16 Dose: 80 mg Insulin Aspart (Novolog Vial Sliding Scale -) 1 vial SQ ACHS [facility] PRN Reason: Protocol Last Admin: 08/05/17 06:11 Dose: Not Given Insulin Detemir (Levemir Vial) 40 units SQ AM [facility] Last Admin: 08/05/17 06:11 Dose: 40 unit Loratadine (Claritin -) 10 mg PO DAILY [facility] Last Admin: 08/05/17 10:10 Dose: 10 mg Melatonin (Melatonin) 3 mg PO HS [facility] Last Admin: 08/04/17 21:15 Dose: 3 mg Oxycodone HCl (Roxicodone -) 5 mg PO Q6H PRN PRN Reason: PAIN > 6 Last Admin: 08/05/17 08:20 Dose: 5 mg Polyethylene Glycol (Miralax (For Daily Use) -) 17 gm PO BID [facility] Last Admin: 08/05/17 10:11 Dose: 17 gm Pramipexole Dihydrochloride (Mirapex -) 0.5 mg PO BID@1000,1630 [facility] Last Admin: 08/05/17 10:12 Dose: 0.5 mg Pramipexole Dihydrochloride (Mirapex -) 1.5 mg PO HS [facility] Last Admin: 08/04/17 21:14 Dose: 1.5 mg Prednisone (Deltasone -) 30 mg PO DAILY [facility] Last Admin: 08/05/17 10:10 Dose: 30 mg Ranolazine (Ranexa -) 500 mg PO BID [facility] Last Admin: 08/05/17 10:12 Dose: 500 mg Tiotropium [place] (Spiriva -) 1 puff IH DAILY [facility] Last Admin: 08/05/17 10:15 Dose: 1 puff Topiramate (Topamax -) 150 mg PO BID [facility] Last Admin: 08/05/17 10:13 Dose: 150 mg Torsemide (Demadex -) 40 mg PO AM [facility] Last Admin: 08/05/17 06:11 Dose: 40 mg Triamcinolone Acetonide (Aristocort 0.1% Cream -) 1 applic TP BID [facility] Last Admin: 08/05/17 10:16 Dose: 1 applic Verapamil HCl (Calan Sr -) 240 mg PO DAILY [facility] Last Admin: 08/05/17 10:08 Dose: 240 mg Warfarin Sodium 10 mg/ (Warfarin Sodium 1 mg) 11 mg PO Mo@1800 [facility] Last Admin: 07/30/17 17:04 Dose: 11 mg Warfarin Sodium (Coumadin -) 9 mg PO SuTuWeThFrSa@1800 [facility] Last Admin: 08/04/17 17:41 Dose: 9 mg - Objective Vital Signs: Vital Signs Temperature 97.5 F L 08/05/17 06:00 Pulse Rate 64 08/05/17 10:11 Respiratory Rate 20 08/05/17 06:00 Blood Pressure 155/68 08/05/17 06:00 O2 Sat by Pulse Oximetry (%) 98 08/04/17 21:00 Cardiovascular: Yes: S1, S2 Respiratory: Yes: Regular, CTA Bilaterally Gastrointestinal: Yes: Normal Bowel Sounds, Soft Labs: CBC, BMP 08/01/17 08:47 08/01/17 08:47 INR, PTT INR 2.36 (0.82-1.09) H D 08/04/17 11:30 Problem List - Problems (1) Afib Assessment/Plan: -Currently rate controlled -Continue Digoxin 0.25mg daily -Coumadin resumed add Lovenox -INR Low Code(s): I48.91 - UNSPECIFIED ATRIAL FIBRILLATION Qualifiers: Atrial fibrillation type: paroxysmal Qualified Code(s): I48.0 - Paroxysmal atrial fibrillation (2) CAD (coronary artery disease) Assessment/Plan: -no cp -same meds Code(s): I25.10 - ATHSCL HEART DISEASE OF [place] CORONARY ARTERY W/O ANG PCTRS (3) COPD (chronic obstructive pulmonary disease) Assessment/Plan: -SOB YESTERDAI -CXR -Continue Singulair 10mg daily -Continue Claritin 10mg daily -Continue Duo-Neb PRN -PULM CONCULT -increase prednisone to 30 Code(s): J44.9 - CHRONIC OBSTRUCTIVE PULMONARY DISEASE, UNSPECIFIED Qualifiers: COPD type: COPD with acute exacerbation Qualified Code(s): J44.1 - Chronic obstructive pulmonary disease with (acute) exacerbation (4) Diabetes Assessment/Plan: -Levemir 40 units in the am -ISS -BGM -Lyrica 100mg BID PRN Code(s): E11.9 - TYPE 2 DIABETES MELLITUS WITHOUT COMPLICATIONS Qualifiers: Diabetes mellitus type: type 2 Diabetes mellitus complication status: with neurologic complications (5) Lupus Code(s): L93.0 - DISCOID LUPUS ERYTHEMATOSUS (6) S/P MVR (mitral valve repair) Assessment/Plan: -on ac Code(s): Z98.890 - OTHER SPECIFIED POSTPROCEDURAL STATES (7) UTI (lower urinary tract infection) Assessment/Plan: -U/A revealed 2+ LE with Urine WBC 78--culture negative -Patient does have a white count >16 but does not have a septic picture. -Has history of MRSA in urine -Will discontinue Ceftriaxone 1gm IVPB daily and Vancomycin 1000mg IVPB daily -Urine and blood cultures neg Code(s): N39.0 - URINARY TRACT INFECTION, SITE NOT SPECIFIED (8) Sleep apnea Assessment/Plan: -Patient reports day time drowsiness and falling asleep. -Currently on CPAP at night and does have a snuff box finisher, however, she has not seen him since her last admission -I suspect patient abruptly fell asleep last night due to sleep apnea, which caused her to fall -PULM consult placed with Dr. Schaefer Code(s): G47.30 - SLEEP APNEA, UNSPECIFIED (9) Retention, urine Assessment/Plan: -CATH PRN Code(s): R33.9 - RETENTION OF URINE, UNSPECIFIED (10) Acute bilateral low back pain Assessment/Plan: -tramadol--dc--on oxycodone -xray noted -mri done result NOTED AND DISCUSSED WITH PT -dr tong and dr degroot consults ordered -pain control -stool softner -cannot walk limited secondary to lower back pain-PT on board Code(s): M54.5 - LOW BACK PAIN
--- NOTE | 2017-08-05 12:04 | PN ---
Progress Note (short form) - Note Progress Note: PULMONARY VSS/AFEBRILE ANICTERIC CHEST CLEAR S1S2 MECHANICAL VALVE CLICK BS+ SOFT NONTENDER NO EDEMA LABS/MEDS/IMAGES REVIEWED (1) Afib Code(s): I48.91 - UNSPECIFIED ATRIAL FIBRILLATION Qualifiers: Atrial fibrillation type: paroxysmal Qualified Code(s): I48.0 - Paroxysmal atrial fibrillation (2) CAD (coronary artery disease) Code(s): I25.10 - ATHSCL HEART DISEASE OF [place] CORONARY ARTERY W/O ANG PCTRS (3) CHF (congestive heart failure) Code(s): I50.9 - HEART FAILURE, UNSPECIFIED (4) Diabetes mellitus, insulin dependent (IDDM), uncontrolled Code(s): E10.65 - TYPE 1 DIABETES MELLITUS WITH HYPERGLYCEMIA (5) Dyslipidemia Code(s): E78.5 - HYPERLIPIDEMIA, UNSPECIFIED (7) HTN (hypertension) Code(s): I10 - ESSENTIAL (PRIMARY) HYPERTENSION Qualifiers: Hypertension type: essential hypertension Qualified Code(s): I10 - Essential (primary) hypertension (8) Hyperlipidemia associated with type 2 diabetes mellitus Code(s): E11.69 - TYPE 2 DIABETES MELLITUS WITH OTHER SPECIFIED COMPLICATION; E78.5 - HYPERLIPIDEMIA, UNSPECIFIED (9) IDDM (insulin dependent diabetes mellitus) Code(s): E11.9 - TYPE 2 DIABETES MELLITUS WITHOUT COMPLICATIONS; Z79.4 - MODELING AGENT (CURRENT) USE OF INSULIN (10) Lupus Code(s): L93.0 - DISCOID LUPUS ERYTHEMATOSUS (11) Mitral valve replaced Code(s): Z95.2 - PRESENCE OF PROSTHETIC HEART VALVE (12) FIGUEROA (obstructive sleep apnea) Code(s): G47.33 - OBSTRUCTIVE SLEEP APNEA (ADULT) (PEDIATRIC) (13) S/P MVR (mitral valve repair) Code(s): Z98.890 - OTHER SPECIFIED POSTPROCEDURAL STATES (14) SLE (systemic lupus erythematosus) Code(s): M32.9 - SYSTEMIC LUPUS ERYTHEMATOSUS, UNSPECIFIED (15) Type 2 diabetes mellitus with hyperosmolarity without nonketotic hyperglycemic-hyperosmolar coma ([facility]) Code(s): E11.00 - TYPE 2 DIAB W HYPROSM W/O NONKET HYPRGLY-HYPROS COMA ([facility]) (16) Unsteady gait Code(s): R26.81 - UNSTEADINESS ON FEET Assessment/Plan Inhaled bronchodilators O2 to maintain saturation Will need re-titration after discharge to ensure optimal PAP therapy Sleep hygiene practices Melatonin Maki WAYNE MD
[2017-08-05 12:49] LABS: INR 2.56 (0.82-1.09); PROTHROMBIN TIME (PATIENT) 28.9 SEC (9.7-13.0)
[2017-08-05] MEDS: WARFARIN NA 3 MG TABLET PO SCH (17:56)
[2017-08-05] MEDS: DOCUSATE SODIUM 100 MG CAPSULE (FP) PO SCH (21:43)
[2017-08-05] MEDS: MELATONIN 1 MG TABLET PO SCH (21:44)
[2017-08-06] MEDS: CARBIDOPA/LEVODOPA 25/100 TABLET (FP) PO SCH ×2 (05:49→14:12)
[2017-08-06] MEDS: INSULIN SLIDING SCALE (NOVOLOG) 1 VIAL SQ SCH ×2 (06:03→12:33)
[2017-08-06] MEDS: INSULIN DETEMIR 100 UNITS/ML MDV SQ SCH (06:03)
[2017-08-06] MEDS: TORSEMIDE 20 MG TABLET (FP) PO SCH (06:04)
[2017-08-06] MEDS ORDERED: PT OWN MED DRAWER 7, Y5N ONE (09:22)
[2017-08-06] MEDS: RANOLAZINE E.R. 500 MG TABLET (FP) PO SCH (09:45)
[2017-08-06] MEDS: TIOTROPIUM BROMIDE 18 MCG CAPSULES IH SCH (09:45)
[2017-08-06] MEDS: LORATADINE 10 MG TABLET PO SCH (09:46)
[2017-08-06] MEDS: VERAPAMIL HCL 240 MG E.R. TABLET (FP) PO SCH (09:46)
[2017-08-06] MEDS: CITALOPRAM HYDROBROMIDE 20 MG TABLET (FP) PO SCH (09:46)
[2017-08-06] MEDS: predniSONE 10 MG TABLET (UD) PO SCH (09:46)
[2017-08-06] MEDS: DIGOXIN 0.25 MG TABLET (FP) PO SCH (09:47)
[2017-08-06] MEDS: TOPIRAMATE 100 MG TABLET PO SCH (09:48)
[2017-08-06] MEDS: BUDESONIDE/FORMETEROL FUMARATE 160/4.5 mcg INHALER IH SCH (09:49)
[2017-08-06] MEDS: PRAMIPEXOLE DIHYDROCHLORIDE 0.5 MG TABLET PO SCH (09:49)
[2017-08-06] MEDS: TRIAMCINOLONE ACET 0.1% CREAM 15 GM TUBE TP SCH (09:50)
[2017-08-06] MEDS: POLYETHYLENE GLYCOL 3350 119 GM BTL PO SCH (09:51)
--- NOTE | 2017-08-06 09:55 | PN ---
Progress Note (short form) - Note Progress Note: PULMONARY Still waking up at night with choking sensations, breathing worse upon awakening in AM but improves quickly. Last Vital Signs Temp Pulse Resp BP Pulse Ox 97.6 F 69 20 173/72 98 08/06/17 06:00 08/06/17 09:47 08/06/17 06:00 08/06/17 06:00 08/05/17 21:00 Gen: NAD at rest Heart: RRR Lung: decreased breath sounds at the bases, no wheezes/rhonchi Abd: soft, nontender Ext: no edema CBC, BMP 08/01/17 08:47 08/01/17 08:47 Active Medications Acetaminophen (Tylenol -) 650 mg PO Q4H PRN PRN Reason: PAIN LEVEL 1-5 Last Admin: 08/04/17 23:07 Dose: 650 mg Albuterol Sulfate (Ventolin 0.083% Nebulizer Soln -) 1 amp NEB Q4H PRN PRN Reason: SHORT OF BREATH/WHEEZING Last Admin: 08/05/17 20:55 Dose: 1 amp Budesonide/Formoterol Fumarate (Symbicort 160/4.5mcg -) 2 puff IH BID [facility] Last Admin: 08/06/17 09:49 Dose: 2 puff Bupropion HCl (Wellbutrin Xl -) 300 mg PO DAILY [facility] Last Admin: 08/06/17 09:47 Dose: 300 mg Carbidopa/Levodopa (Sinemet 25/100 -) 1 each PO TID [facility] Last Admin: 08/06/17 05:49 Dose: 1 each Citalopram Hydrobromide (Celexa -) 10 mg PO DAILY [facility] Last Admin: 08/06/17 09:46 Dose: 10 mg Digoxin (Lanoxin -) 0.25 mg PO DAILY [facility] Last Admin: 08/06/17 09:47 Dose: 0.25 mg Docusate Sodium (Colace -) 300 mg PO HS [facility] Last Admin: 08/05/17 21:43 Dose: 300 mg Enoxaparin Sodium (Lovenox -) 80 mg SQ BID [facility] Last Admin: 08/05/17 21:44 Dose: 80 mg Insulin Aspart (Novolog Vial Sliding Scale -) 1 vial SQ ACHS [facility] PRN Reason: Protocol Last Admin: 08/06/17 06:03 Dose: Not Given Insulin Detemir (Levemir Vial) 40 units SQ AM [facility] Last Admin: 08/06/17 06:03 Dose: 40 unit Loratadine (Claritin -) 10 mg PO DAILY [facility] Last Admin: 08/06/17 09:46 Dose: 10 mg Melatonin (Melatonin) 3 mg PO HS [facility] Last Admin: 08/05/17 21:44 Dose: 3 mg Oxycodone HCl (Roxicodone -) 5 mg PO Q6H PRN PRN Reason: PAIN > 6 Last Admin: 08/05/17 22:10 Dose: 5 mg Polyethylene Glycol (Miralax (For Daily Use) -) 17 gm PO BID [facility] Last Admin: 08/06/17 09:51 Dose: Not Given Pramipexole Dihydrochloride (Mirapex -) 0.5 mg PO BID@1000,1630 [facility] Last Admin: 08/06/17 09:49 Dose: 0.5 mg Pramipexole Dihydrochloride (Mirapex -) 1.5 mg PO HS [facility] Last Admin: 08/05/17 21:43 Dose: 1.5 mg Prednisone (Deltasone -) 30 mg PO DAILY [facility] Last Admin: 08/06/17 09:46 Dose: 30 mg Ranolazine (Ranexa -) 500 mg PO BID [facility] Last Admin: 08/06/17 09:45 Dose: 500 mg Tiotropium [place] (Spiriva -) 1 puff IH DAILY [facility] Last Admin: 08/06/17 09:45 Dose: 1 puff Topiramate (Topamax -) 150 mg PO BID [facility] Last Admin: 08/06/17 09:48 Dose: 150 mg Torsemide (Demadex -) 40 mg PO AM [facility] Last Admin: 08/06/17 06:04 Dose: 40 mg Triamcinolone Acetonide (Aristocort 0.1% Cream -) 1 applic TP BID [facility] Last Admin: 08/06/17 09:50 Dose: 1 applic Verapamil HCl (Calan Sr -) 240 mg PO DAILY [facility] Last Admin: 08/06/17 09:46 Dose: 240 mg Warfarin Sodium 10 mg/ (Warfarin Sodium 1 mg) 11 mg PO Mo@1800 [facility] Last Admin: 07/30/17 17:04 Dose: 11 mg Warfarin Sodium (Coumadin -) 9 mg PO SuTuWeThFrSa@1800 [facility] Last Admin: 08/05/17 17:56 Dose: 9 mg A/P COPD FIGUEROA Chronic Hypoxic Respiratory Failure CAD s/p CABG Paroxysmal Atrial Fibrillation LV Diastolic Dysfunction h/o MVR HTN Hyperlipidemia DM CKD - prednisone taper, will decrease to 20mg daily - inhaled bronchodilators - O2 to keep SpO2 >90% - CPAP at night - will need CPAP titration study as outpt - rate controlled - continue anticoagulation, will d/c lovenox as pt in therapeutic range - can d/c from pulmonary standpoint
[2017-08-06] MEDS: ACETAMINOPHEN 325 MG TABLET (FP) PO PRN (10:00)
[2017-08-06] MEDS: oxyCODONE HCL 5 MG TABLET PO PRN (10:00)
[2017-08-06] MEDS: ALBUTEROL SO4 0.083% IH SOL 2.5 MG/3 ML VIAL.NEB. NEB PRN (10:10)
--- NOTE | 2017-08-06 10:47 | DS ---
Physical Examination Vital Signs: Vital Signs Temperature 97.6 F 08/06/17 06:00 Pulse Rate 69 08/06/17 09:47 Respiratory Rate 20 08/06/17 06:00 Blood Pressure 173/72 08/06/17 06:00 O2 Sat by Pulse Oximetry (%) 98 08/05/17 21:00 Constitutional: Yes: Calm Neck: Yes: Trachea Midline Cardiovascular: Yes: Regular Rate and Rhythm, S1, S2 Respiratory: Yes: CTA Bilaterally, On Nasal O2 Gastrointestinal: Yes: Normal Bowel Sounds, Soft Edema: No Neurological: Yes: Alert, Oriented Labs: CBC, BMP 08/01/17 08:47 08/01/17 08:47 Discharge Summary Reason For Visit: URINARY TRACT INFECTION,TRAUMATIC INJURY OF HEAD Current Active Problems Acute bilateral low back pain (Acute) Anticoagulated (Acute) Leukocytosis (Acute) Low back pain (Acute) MRSA (methicillin resistant Staphylococcus aureus) colonization (Acute) Retention, urine (Acute) Sleep apnea (Acute) Hospital Course: [facility] COMPLAINT: s/p fall on Warfarin PCP: Dr. Toussaint HISTORY OF PRESENT ILLNESS: Patient is a 66 year old female with an extensive PMHx of HTN, HLD, CAD s/p stent (2014), A.fib (on Coumadin), IDDMII, COPD/Asthma, COPD (3L o2) , Sleep Apnea (on CPAP), CVA, Parkinsons, Lupus (no longer on MTX due to side effects), fibromyalgia, spinal stenosis, MV replacement, who reports waking up on the floor s/p fall and hitting her head on the metal johana next to her bed. Patient reports she fell out of her bed several times in the past because she states she 's "randomly" falling asleep throughout the day. However, this time patient was unable to ambulate with her walker and felt a pounding headache, which prompted this hospital visit. She also reports feeling tired throughout the day and snores at night. She does take CPAP at night and is compliant with it. Patient otherwise, denies fever, chills, nausea, vomiting, abdominal pain, chest pain, palpitations, acute vision changes, loss of consciousness, hematuria , diarrhea, constipation, frequency. ER course was notable for: (1) Head CT negative (2) WBC >16 (3) U/A revealing UTI Recent Travel: Denies PAST MEDICAL HISTORY: HTN, HLD, CAD s/p stent (2014), A.fib (on Coumadin), Diastolic CHF, IDDMII, CKD, COPD/Asthma, COPD (3L o2) , Sleep Apnea (on CPAP), CVA, Parkinsons, Lupus (no longer on MTX due to side effects), fibromyalgia, spinal stenosis, PAST SURGICAL HISTORY: Stent placement (2014), MV replacement in hospital patient seen by Pulm, FRANCK and pain management patient has CT head no bleed noted restarted on coumadin c/p Lower back pain had MRI done seen by FRANCK and pain management to start oxycodone PRN. seen by pulm to get sleep study as outpatient, most likey fall could be scondary to sleep apnea patient has worsening copd and will need light weight portable oxygen concentrator MRI of back done shows multiple degenerative disesase noted. Condition: Guarded - Instructions Diet, Activity, Other Instructions: FU with Pulmonary for outpatient sleep study light weight portable oxygen concentrator Disposition: VNS/HOME HEALTH CARE - Home Medications Comprehensive Discharge Medication List: Ambulatory Orders Albuterol 0.083% Nebulizer Brigitte [Ventolin 0.083% Nebulizer Soln -] 1 neb NEB QID 06/21/17 Bupropion HCl [Wellbutrin Xl] 300 mg PO DAILY 06/21/17 Carbidopa/Levodopa [Carbidopa-Levodopa 25-100 Tab] 1 each PO TID 06/21/17 Cholecalciferol (Vitamin D3) [Vitamin D -] 1,000 unit PO DAILY 06/21/17 Citalopram Hydrobromide [Celexa -] 10 mg PO DAILY 06/21/17 Digoxin [Lanoxin -] 0.25 mg PO DAILY 06/21/17 Ferrous Sulfate [Iron] 325 mg PO DAILY 06/21/17 Hypromellose 0.5% Opth Soln [Artificial Tears] 1 drop OD QID 06/21/17 Pantoprazole Sodium [Protonix] 40 mg PO DAILY 06/21/17 Pramipexole Di-HCl [Mirapex] 0.5 mg PO TID 06/21/17 Pregabalin [Lyrica] 25 mg PO BID 06/21/17 Ranolazine [Ranexa] 500 mg PO BID 06/21/17 Topiramate [Topamax] 150 mg PO BID 06/21/17 Torsemide [Demadex -] 20 mg PO HS 06/21/17 Verapamil HCl [Calan Sr] 240 mg PO DAILY 06/21/17 Warfarin Sodium [Coumadin] 9 mg PO HS 06/21/17 Triamcinolone 0.1% Cream [Aristocort 0.1% Cream -] 1 applic TP BID #60 gm predniSONE [Deltasone -] 10 mg PO DAILY #100 tablet 06/28/17 Cetirizine HCl 10 mg PO BID 07/29/17 Coumadin 11 mg PO WEEKLY 07/29/17 Insulin Glargine,Hum.rec.anlog [Lantus Solostar PEN (NF)] 40 units SQ AM Insulin Lispro [Humalog] 0 unit SQ TID 07/29/17 Pramipexole Di-HCl [Mirapex] 1 mg PO HS 07/29/17 Torsemide [Demadex] 40 mg PO AM 07/29/17
[2017-08-06] MEDS ORDERED: INSULIN (NOVOLOG) ASPART 100 UNITS/ML 10ML VIAL ONE ×2 (12:13→12:53)
[2017-08-06] MEDS ORDERED: INSULIN DETEMIR 100 UNITS/ML MDV SQ ONE (12:53)
[2017-08-06 15:52] VITALS: BP 134/80; PULSE 70; TEMP 98.6
[2017-08-07] MEDS ORDERED: predniSONE 20 MG TABLET (UD) PO SCH (10:00)
[2017-08-08] MEDS ORDERED: predniSONE 10 MG TABLET (UD) PO SCH ×2 (10:00)
== END 2017-08-06 15:29 | disposition home health service (06) | DRG 690 ==
LOC: JER 02:31 → JERBED 07:38 → J8W 11:22
PROVIDERS: ADMIT Internal Medicine; ATTEND Family Medicine
DX: N39.0 Urinary tract infection, site not specified (principal); I13.0 Hypertensive heart and chronic kidney disease with heart failure and stage 1 through stage 4 chronic kidney disease, or unspecified chronic kidney disease; I50.32 Chronic diastolic (congestive) heart failure; J96.11 Chronic respiratory failure with hypoxia; G47.30 Sleep apnea, unspecified; I48.91 Unspecified atrial fibrillation; D72.829 Elevated white blood cell count, unspecified; J44.9 Chronic obstructive pulmonary disease, unspecified; J45.909 Unspecified asthma, uncomplicated; E11.22 Type 2 diabetes mellitus with diabetic chronic kidney disease; E78.5 Hyperlipidemia, unspecified; I25.10 Atherosclerotic heart disease of native coronary artery without angina pectoris; Z98.61 Coronary angioplasty status; G20 Parkinson's disease; M32.9 Systemic lupus erythematosus, unspecified; M54.5 Low back pain; R33.9 Retention of urine, unspecified; I48.0 Paroxysmal atrial fibrillation; Z95.1 Presence of aortocoronary bypass graft; Z95.2 Presence of prosthetic heart valve; R26.81 Unsteadiness on feet; K59.00 Constipation, unspecified; E11.42 Type 2 diabetes mellitus with diabetic polyneuropathy; N18.3 Chronic kidney disease, stage 3 (moderate); S09.90XA Unspecified injury of head, initial encounter; R29.6 Repeated falls; W19.XXXA Unspecified fall, initial encounter; Y93.9 Activity, unspecified; Y92.89 Other specified places as the place of occurrence of the external cause; Y99.9 Unspecified external cause status; E10.65 Type 1 diabetes mellitus with hyperglycemia
CPT/HCPCS: 36415; 70450-TC; 71045-TC-FY; 72100-TC-FY; 72125-TC; 72148-TC; 73560-TC-LT-FY; 80053; 80162; 81003; 81015; 82962; 85025; 85027; 85610; 85730; 87040; 87086; 93005; 93010; 94640; 97116-GP; 97161-GP; 99283-25; J0131; J7030

== ENCOUNTER 2017-12-11 17:53 | Emergency (ER) | payer OTHER ==
--- NOTE | 2017-12-11 18:08 | PDOC ---
Rapid Medical Evaluation Time Seen by Provider: 12/11/17 18:04 Medical Evaluation: Allergies Allergy/AdvReac Type Severity Reaction Status Date / Time lactose Allergy Mild Verified 12/10/17 10:28 Beta-Blockers Allergy Verified 12/10/17 10:28 (Beta-Adrenergic Bloc Fish Containing Products Allergy Verified 12/10/17 10:28 fish derived Allergy Verified 12/10/17 10:28 Iodinated Contrast- Oral and Allergy Verified 12/10/17 10:28 IV Dye [IV Dye, Iodine Containing Contrast ] shellfish derived Allergy Verified 12/10/17 10:28 12/11/17 18:04 Pt reports vomiting, migraine, dizziness and palpitations since yesterday. States she cannot keep anything down. Also admits to diarrhea. Exam: TTP of the epigastric region, using supplemental O2 Orders: Labs, IV, CXR, EKG PT to proceed to ED for further evaluation Discharge Disposition - Diagnosis Vomiting - Referrals Referrals: Jose España MD [Primary Care Provider] - - Patient Instructions - Post Discharge Activity
[2017-12-11 18:11] VITALS: TEMP 98.9; BMI 38.0
--- NOTE | 2017-12-11 20:42 | PDOC ---
History of Present Illness - General Chief Complaint: Pain Stated Complaint: PALPITATION,DIZZINESS,VOMITING Time Seen by Provider: 12/11/17 18:04 History Source: Patient, Old Records Exam Limitations: No Limitations - History of Present Illness Initial Comments: 67 y/o female presenting to [facility] ER via private auto complaining of abdominal pain, diarrhea, and vomiting. She states the abdominal pain and diarrhea began last and has been occuring with urgency. Abdominal pain is generalized to upper abdomen. Vomiting began yesterday with multiple episodes, all described as mucus and bubbly but nonbloody and nonbilious. Pt reports a recent hepatitis A diagnosis by her PCP but cannot recall if it was two weeks ago or two months ago. Further reports a long history of chronic versus acute on chronic diarrhea, which is per pt managed with carafate, creon, and omeprazole. Medical Hx: HTN HLD CAD s/p stent (2014) A.fib (on Coumadin) T2DM COPD/Asthma Sleep Apnea (on CPAP) CVA Parkinsons, Lupus (no longer on MTX due to side effects) Fibromyalgia Spinal stenosis MV replacement with mechanical valve Past History - Past Medical History Allergies/Adverse Reactions: Allergies Allergy/AdvReac Type Severity Reaction Status Date / Time lactose Allergy Mild Verified 12/11/17 18:07 Beta-Blockers Allergy Verified 12/11/17 18:07 (Beta-Adrenergic Bloc Fish Containing Products Allergy Verified 12/11/17 18:07 fish derived Allergy Verified 12/11/17 18:07 Iodinated Contrast- Oral and Allergy Verified 12/11/17 18:07 IV Dye [IV Dye, Iodine Containing Contrast ] shellfish derived Allergy Verified 12/11/17 18:07 Home Medications: Ambulatory Orders Albuterol 0.083% Nebulizer Brigitte [Ventolin 0.083% Nebulizer Soln -] 1 neb NEB QID 06/21/17 Bupropion HCl [Wellbutrin Xl] 300 mg PO DAILY 06/21/17 Carbidopa/Levodopa [Carbidopa-Levodopa 25-100 Tab] 1 each PO TID 06/21/17 Cholecalciferol (Vitamin D3) [Vitamin D -] 1,000 unit PO DAILY 06/21/17 Citalopram Hydrobromide [Celexa -] 10 mg PO DAILY 06/21/17 Digoxin [Lanoxin -] 0.25 mg PO DAILY 06/21/17 Ferrous Sulfate [Iron] 325 mg PO DAILY 06/21/17 Hypromellose 0.5% Opth Soln [Artificial Tears] 1 drop OD QID 06/21/17 Pantoprazole Sodium [Protonix] 40 mg PO DAILY 06/21/17 Pramipexole Di-HCl [Mirapex] 0.5 mg PO TID 06/21/17 Ranolazine [Ranexa] 500 mg PO BID 06/21/17 Topiramate [Topamax] 150 mg PO BID 06/21/17 Verapamil HCl [Calan Sr] 240 mg PO DAILY 06/21/17 Triamcinolone 0.1% Cream [Aristocort 0.1% Cream -] 1 applic TP BID #60 gm Insulin Glargine,Hum.rec.anlog [Lantus Solostar PEN -] 40 units SQ AM 07/29/17 Torsemide [Demadex -] 40 mg PO AM 07/29/17 Budesonide/Formeterol Fumarate [SYMBICORT 160/4.5mcg -] 2 puff IH BID #1 inhaler MDD 2 08/06/17 Docusate Sodium [Colace -] 300 mg PO HS capsule 08/06/17 Insulin (Levemir) [Levemir Vial] 40 units SQ AM ml 08/06/17 Loratadine [Claritin -] 10 mg PO DAILY tablet 08/06/17 Tiotropium [place] [Spiriva] 1 puff IH DAILY cap 08/06/17 Warfarin Na [Coumadin -] 9 mg PO [id number]@1800 tablet 08/06/17 oxyCODONE HCL [Roxicodone -] 5 mg PO Q6H PRN #7 tablet MDD 3 08/06/17 predniSONE [Deltasone -] 20 mg PO DAILY #10 tablet 08/06/17 Anemia: Yes Asthma: Yes Cardiac Disorders: Yes (mitral valve replacement, stents x2,a-fib, CAD) CVA: Yes (MULTIPLE TIAs) COPD: Yes (Yes, O2 2L-3L) CHF: Yes DVT: No Diabetes: Yes GI Disorders: Yes (ulcers, GI bleed, hemorrhoids, diverticulosis) Disorders: Yes (bladder mesh) HTN: Yes Hypercholesterolemia: Yes Seizures: Yes Thyroid Disease: No - Surgical History Appendectomy: Yes Cardiac Surgery: Yes (stentsx2, mitral valve replacement, CABG) Cholecystectomy: Yes Orthopedic Surgery: Yes (left knee pain injection) - Immunization History Immunization Up to Date: Yes - Suicide/Smoking/Psychosocial Hx Smoking Status: No Smoking History: Never smoked Have you smoked in the past 12 months: No Number of Cigarettes Smoked Daily: 0 If you are a former smoker, when did you quit?: many years Hx Alcohol Use: No Drug/Substance Use Hx: No Substance Use Type: None Hx Substance Use Treatment: No Review of Systems - Review of Systems Able to Perform ROS?: Yes Comments:: In addition to that documented in the HPI above, the additional ROS was obtained : Constitutional: Denies fevers or chills Eyes: Denies vision changes ENMT: Denies sore throat CV: Endorses palpitations, concerned because she has a mechanical valve Resp: Endorses SOB because of the vomiting GI: Per HPI *Physical Exam - Vital Signs Last Vital Signs Temp Pulse Resp BP Pulse Ox 98.9 F 80 18 156/81 98 12/11/17 18:07 12/11/17 18:07 12/11/17 18:07 12/11/17 18:07 12/11/17 18:07 - Physical Exam Comments: Constitutional: Well-developed, well-nourished, morbidly obese female in no acute distress or obvious discomfort.. Found semi-fowlers in hospital bed. Alert and oriented x4. Answered all questions appropriately and completely. Speech was non-labored, non-pressured. HEENT: Normocephalic. No obvious external signs of trauma. Hearing grossly normal. No nasal discharge. Neck is supple, trachea is midline. Cardiovascular: Regular rate and regular rhythm. Mechanical clicking. No murmur , rubs, or gallops. Peripheral pulses: Radial pulses full. Respiratory: Breathing unlabored. Equal chest rise and fall. Clear to auscultation bilaterally. No stridor, no wheezing, no rhonchi. Pt on 3lpm of oxygen via nasal cannula. Gastrointestinal: abdomen is tender in RUQ with grimace otherwise soft and on- distended. Unable to assess for hepatosplenomegaly because of body habitus. No overlying skin lesions or obvious signs of trauma. Neuro: Alert and oriented. Moving all four extremities spontaneously. Skin: Warm, dry, and intact. No bruising, rashes, or other lesions. No palpable nodules. Psych: Affect: appropriate. Mood: normal. ED Treatment Course - LABORATORY CBC & Chemistry Diagram: 12/11/17 21:12 12/11/17 21:12 - RADIOLOGY Radiology Studies Ordered: Category Date Time Status ABDOMEN US -LIMITED [US] Stat Ultrasound 12/11/17 19:56 Completed Medical Decision Making - Medical Decision Making *Reviewed vital signs, nursing notes, and prior visit documentation (if available). 67 y/o female complaining of nausea, vomiting, diarrhea. Possible recent diagnosis of hepatitis A. Afebrile. Vitals unremarkable. Pt subjectively diffusely tender reportedly secondary to fibromyalgia. Abdomen is tender in RUQ. No peritoneal signs. Suspect gastroenteritis versus medication induced symptoms versus IBS. Low suspicion for hepatitis, ascending cholangitis, pancreatitis. Very low suspicion for perforation, mesenteric ischemia, ACS, splenic infarct, lower lobe pneumonia, or appendicitis. Ordered CBC, CMP, Lipase , Lactic Acid, Troponin, EKG, and RUQ ultrasound. CBC revealed very mild leukocytosis, suspect secondary to vomiting. CMP unremarkable for electrolyte derangement. LFTs not elevated. Low suspicion for hepatitis. Lipase not elevated. Low suspicion for acute pancreatitis. Lactic Acid not elevated. Low suspicion for mesenteric ischemia. Pt also in INR therapeutic range. RUQ revealed hepatomegaly concerning for fatty infiltration or hepatocellular disease. Low suspicion for hepatocellular given normal LFTs. Will obtain CT of abdomen and pelvis without contrast given pts contrast allergy. CT revealed scattered diverticula without evidence of acute diverticulitis. Mild hepatomegally with fatty infiltration, will defer to outpatient management. 12/11/17 23:07 Pt found sleeping comfortable, abusable to voice. Continues to have abdominal pain. Repeat abdominal exam is non-peritoneal; no rebound or guarding. Denies diarrhea or vomiting while in the department. Reports headache but declined medication because she has some at home. Discussed imaging and laboratory results with pt. Answered all questions. Provided return precautions. Pt expressed verbal understanding and agreement with plan to discharge home with outpatient PCP or GI follow up. *DC/Admit/Observation/Transfer Diagnosis at time of Disposition: Abdominal pain, vomiting, and diarrhea - Discharge Dispostion Disposition: HOME Condition at time of disposition: Good Decision to Admit order: No - Referrals Referrals: Jose España MD [Primary Care Provider] - - Patient Instructions Printed Discharge Instructions: DI for Abdominal Pain-Adult Additional Instructions: Your blood work, ultrasound, and CT scan did not show a cause for your pain. The fact that you did not have any diarrhea or vomiting while in the department is a good sign. You should follow up with your primary care doctor or GI doctor (Dr. Orellana) within the next 3-4 days. I have attached copies of your results from today's visit to this packet. Please take these with you to your doctor's visit. Go to the nearest emergency department if your symptoms worsen or you feel like you need additional emergency evaluation. Print Language: GUATEMALAN - Post Discharge Activity
[2017-12-11] MEDS ORDERED: SODIUM CHLORIDE 1,000 ML IV STA (21:01)
[2017-12-11] MEDS ORDERED: FAMOTIDINE 20 MG/50 ML IVPB 20 MG/50 ML MG IVPB ONE ×2 (21:01→21:54)
[2017-12-11] MEDS ORDERED: ONDANSETRON 4 MG/2 ML VIAL IVPB ONE (21:01)
[2017-12-11] MEDS ORDERED: ONDANSETRON 4 MG/2 ML VIAL ONE (21:21)
[2017-12-11 21:29] LABS: EOS % 1.5 % (0-4.5); HEMATOCRIT 43.3 % (32.4-45.2); HEMOGLOBIN 14.2 GM/dL (10.7-15.3); LYMPH % 23.3 % (8-40); MCH 28.1 pg (25.7-33.7); MCHC 32.8 g/dl (32.0-36.0); MEAN CELL VOLUME 85.7 fl (80-96); MEAN PLT VOLUME 9.6 fl (7.5-11.1); MONO % 11.6 % (3.8-10.2); NEUT % 62.6 % (42.8-82.8); PLATELET COUNT 270 K/MM3 (134-434); RBC 5.05 M/mm3 (3.60-5.2); RDW 15.5 % (11.6-15.6); WHITE BLOOD COUNT 11.6 K/mm3 (4.0-10.0)
--- NOTE | 2017-12-11 21:31 | PDOC ---
Attending Attestation - Resident Resident Name: [place] - ED Attending Attestation I have performed the following: I have examined & evaluated the patient, The case was reviewed & discussed with the resident, I agree w/resident's findings & plan, Exceptions are as noted - HPI HPI: 12/11/17 21:28 The patient is a year old female, with a significant past medical history of Hepatitis A (diagnosed last month), HTN, HLD, Parkinson's dz, Lupus (dx 2005. was on MTX, no longer d/t adverse effects. had skin biopsy RLE; was also on Prednisone, however does not take 2/2 bloating), Fibromyalgia, DM, CHF, COPD ( on 2L at home), sleep apnea (on CPAP), atrial fibrillation (on coumadin), anemia , asthma, glaucoma, MV replacement, CVA, spinal stenosis, CAD s/p 2 stents (2014 ), who presents to the emergency department with abdominal pain, diarrhea, nausea with NBNB vomiting, and urinary urgency. States that she has had diarrhea x 1 month. Was worked up by her GI doctor and had colonoscopy that was unremarkable other than polyps. Pt states that she has had persistent diarrhea since then. However, she comes to the ER today because she began to vomit. Endorses diffuse abdominal pain. She denies recent fevers, chills, headache or dizziness. She denies recent dysuria, frequency, or hematuria. She denies recent chest pain or shortness of breath. Allergies: Lactose, Beta blockers, Fish, Iodinated contrast, Shellfish. Social history: Lives alone. Former smoker. No alcohol. No illicit drugs. Surgical history: CAD s/p 2 stents (2014) PMD: Dr. España - Physicial Exam PE: 12/11/17 21:30 GENERAL: Awake, alert, and fully oriented, in no acute distress. HEAD: No signs of trauma EYES: PERRLA, EOMI, sclera anicteric, conjunctiva clear ENT: Auricles normal inspection, hearing grossly normal, nares patent, oropharynx clear without exudates. Moist mucosa NECK: Nontender, no stepoffs, Normal ROM, supple, no lymphadenopathy, JVD, or masses LUNGS: Breath sounds equal, clear to auscultation bilaterally. No wheezes, and no crackles HEART: Regular rate and rhythm, normal S1 and S2, no murmurs, rubs or gallops ABDOMEN: + Diffuse mild TTP, Soft, normoactive bowel sounds. No guarding, no rebound. No masses EXTREMITIES: Normal range of motion, no edema. No clubbing or cyanosis. No cords, erythema, or tenderness NEUROLOGICAL: Cranial nerves II through XII intact. 5/5 strength and sensation in all extremities, Normal speech, normal gait, normal cerebellar function SKIN: Warm, Dry, normal turgor, no rashes or lesions noted. - Medical Decision Making 12/11/17 21:30 67 F with diffuse abdominal pain, diarrhea x 1 month, and vomiting. - Labs - CTAP - IVF, GI cocktail
[2017-12-11 21:41] LABS: INR 1.98 (0.83-1.09); PROTHROMBIN TIME (PATIENT) 22.4 SEC (9.7-13.0)
[2017-12-11 21:57] LABS: LIPASE 64 U/L (73-393)
[2017-12-11 22:00] LABS: ALBUMIN 3.6 g/dl (3.4-5.0); ALK PHOS 91 U/L (45-117); ANION GAP 10 MMOL/L (8-16); BILIRUBIN,TOTAL 0.6 mg/dL (0.2-1); BLOOD UREA NITROGEN 22 mg/dL (7-18); CALCIUM 9.2 mg/dL (8.5-10.1); CHLORIDE 103 mmol/L (98-107); CO2 24 mmol/L (21-32); GLUCOSE,RANDOM 117 mg/dL (74-106); POTASSIUM 3.8 mmol/L (3.5-5.1); SGOT/AST 21 U/L (15-37); SGPT/ALT 37 U/L (13-61); SODIUM 137 mmol/L (136-145); TOT PROT 7.2 g/dl (6.4-8.2)
[2017-12-11 23:44] VITALS: BP 146/78; PULSE 76
--- NOTE | 2017-12-12 13:23 | EKG ---
Test Reason : Blood Pressure : / mmHG Vent. Rate : 078 BPM Atrial Rate : 078 BPM P-R Int : 118 ms QRS Dur : 080 ms QT Int : 384 ms P-R-T Axes : 004 050 -66 degrees QTc Int : 437 ms NORMAL SINUS RHYTHM ABNORMAL ECG WHEN COMPARED WITH ECG OF 29-JUL-2017 03:53, ST NOW DEPRESSED IN LATERAL LEADS T WAVE INVERSION MORE EVIDENT IN INFERIOR LEADS T WAVE INVERSION NOW EVIDENT IN LATERAL LEADS Confirmed by VICENTE MEZA, SIERRA ([id number]) on 12/12/2017 1:22:49 PM Referred By: Confirmed By:SIERRA ZHANG MD
== END 2017-12-11 23:44 | disposition home or self-care (01) ==
LOC: JER 17:53
PROC: 3E033GC Introduction of Other Therapeutic Substance into Peripheral Vein, Percutaneous Approach (ICD-10-PCS; principal; 2017-12-11)
PROC: 3E033GC Introduction of Other Therapeutic Substance into Peripheral Vein, Percutaneous Approach (ICD-10-PCS; 2017-12-11)
DX: R10.9 Unspecified abdominal pain (principal); R11.2 Nausea with vomiting, unspecified; R51 Headache; R19.7 Diarrhea, unspecified; I25.10 Atherosclerotic heart disease of native coronary artery without angina pectoris; I10 Essential (primary) hypertension; Z95.1 Presence of aortocoronary bypass graft; Z95.5 Presence of coronary angioplasty implant and graft; I48.91 Unspecified atrial fibrillation; Z79.01 Long term (current) use of anticoagulants; E11.9 Type 2 diabetes mellitus without complications; Z79.84 Long term (current) use of oral hypoglycemic drugs; G20 Parkinson's disease; L93.0 Discoid lupus erythematosus; M79.7 Fibromyalgia; J44.9 Chronic obstructive pulmonary disease, unspecified; Z99.81 Dependence on supplemental oxygen; M32.9 Systemic lupus erythematosus, unspecified; M48.00 Spinal stenosis, site unspecified; Z95.2 Presence of prosthetic heart valve; Z87.19 Personal history of other diseases of the digestive system; Z91.013 Allergy to seafood; Z91.041 Radiographic dye allergy status
CPT/HCPCS: 36415; 74176-TC; 76705-TC; 80053; 82550; 83605; 83690; 84484; 85025; 85610; 93005; 93010; 96365; 96375; 99284-25; J7030

== ENCOUNTER 2018-01-29 15:56 | Inpatient (IN) | payer OTHER ==
[2018-01-29] MEDS ORDERED: ALBUTEROL SO4 2.5/IPRATROPIUM 0.5 INH SOL 3 ML VIAL.NEB. NEB ONE ×3 (16:17→17:27)
[2018-01-29] MEDS ORDERED: MAGNESIUM 1GM/D5W - 2 GM/200 ML IVPB IVPB ONE (16:17)
[2018-01-29] MEDS ORDERED: methylPREDNISolone NA SUCC 125 MG/2 ML VIAL IVPB ONE (16:56)
[2018-01-29 17:16] LABS: BASO % 0.4 % (0-2.0); HEMATOCRIT 36.3 % (32.4-45.2); HEMOGLOBIN 11.4 GM/dL (10.7-15.3); LYMPH % 4.7 % (8-40); MCHC 31.3 g/dl (32.0-36.0); MEAN CELL VOLUME 86.3 fl (80-96); MEAN PLT VOLUME 9.8 fl (7.5-11.1); MONO % 3.7 % (3.8-10.2); NEUT % 91.2 % (42.8-82.8); PLATELET COUNT 247 K/MM3 (134-434); RDW 14.8 % (11.6-15.6); WHITE BLOOD COUNT 12.8 K/mm3 (4.0-10.0)
--- NOTE | 2018-01-29 17:17 | PDOC ---
Attending Attestation - Resident Resident Name: MamtaSaJailyn - ED Attending Attestation I have performed the following: I have examined & evaluated the patient, The case was reviewed & discussed with the resident, I agree w/resident's findings & plan, Exceptions are as noted - HPI HPI: 01/29/18 17:41 Patient is a 67 year old female with a significant past medical history of migraine, AF, CAD, CHF, HTN, HL, COPD, sleep apnea, anemia, spinal stenosis, SLE , DM, antiphospholipid syndrome c/b CVA on coumadin who presents to the ED with complaints of shortness of breath x 3 days. She reports experiencing experiencing associated symptoms of diarrhea, productive cough with yellow sputum, urinary symptoms and intermittent sternal non radiating chest pain. She reports being told to hold her coumadin 1 week ago in preparation for a femoral nerve block procedure 2 days ago. While she was off the coumadin, she was taking lovenox 90mg BID up until the day before the procedure. Since the procedure, she continued the lovenox. When the CP began last night, she became concerned given her APL syndrome and restarted her coumadin. She states she was extra concerned because her INR dropped so quickly and she thought the lovenox should maintain her INR above 2. Denies nausea, vomiting. Denies fevers, chills. Denies trauma to affected area. Denies contact with sick individuals, out of state travelling. Denies any other symptoms. Allergies: lactose, Beta-Blockers, Fish Containing Products, fish, Iodinated Contrast, IV Dye, Shellfish. Social history: No smoking. No alcohol. No illicit drugs. Surgical history: S/P [facility] mitral valve replacement, CABG, Cholecystectomy, Hysterectomy, Oophorectomy PMD: None - Physicial Exam PE: 01/29/18 18:54 GENERAL: Awake, alert, and fully oriented, in no acute distress LUNGS: diffuse exp wheezng with good air movement, no increased WOB, no crackles or rhonchi HEART: Regular rate and rhythm, normal S1 and S2, no murmurs, rubs or gallops ABDOMEN: Soft, nontender, normoactive bowel sounds. No guarding, no rebound. No masses EXTREMITIES: Normal range of motion, trace b/l LE edema. No clubbing or cyanosis. No cords, erythema, or tenderness NEUROLOGICAL: Normal speech, cranial nerves intact, 5/5 strength in all 4 extremities, normal sensation to light touch in all 4 extremities, normal gait SKIN: Warm, Dry, normal turgor, no rashes or lesions noted. - Medical Decision Making 01/29/18 19:02 67yo F with MMP including CAD, APL syndrome on coumadin, COPD, sleep apnea, MVR presents to the ED with SOB. Given wheezing, likely COPD exacerbation but differential includes ACS vs PNA vs CHF vs PE. Pt concerned as she was off her coumadin for her procedure but was taking lovenox throughout making a PE less likely. Despite this, PE is still a possibility. Pt has IV contrast allergy but has successfully been pretreated with steroids prior to CT in the past. As such will initiate treatment in preparation for CTA chest. Also, ordered her evening dose of lovenox 1mg/kg. Pt states she feels better after the breathing treatments but still has intermittent CP that lasts for seconds at a time. As such, will admit for further work up including CTA to r/o PE (when pretreatment is done) and for further monitoring given her comorbidities. 01/29/18 19:42 Case signed out to admitting hospitalist by Dr. Oleary Case discussed in detail with admitting physician including history, physical exam and ancillary studies. Admitting physician has assumed care for the patient, will follow all pending diagnostics and will complete the evaluation and treatment. Heart Score/ECG Review #1 01/29/18 17:15 Twelve-lead EKG was performed and reviewed by me. Sinus bradycardia, rate 56. Normal axis. Incomplete right bundle branch block. Diffuse T-wave flattening/ inversion. No significant change when compared to previous EKG done on 2017.
[2018-01-29 17:26] LABS: VENOUS PH 7.35 (7.32-7.42)
--- NOTE | 2018-01-29 17:26 | PDOC ---
History of Present Illness - General Chief Complaint: Shortness of Breath Stated Complaint: DIFFICULTY BREATHING Time Seen by Provider: 01/29/18 16:03 History Source: Patient Exam Limitations: No Limitations - History of Present Illness Initial Comments: 01/29/18 17:21 Pt is a 67yo female with significant PMH of CAD s/p bypass 2006, stent 2014, Afib (coumadin), CHF, COPD/Asthma, Mitral Valve replacement (2006), Lupus, Antiphospholipid syndrome, HTN, HLD, DM presenting to ED with complaints of shortness of breath and cough productive of yellow phlegm for the past 2-3 days. Pt also complaints of chest pains associated with coughing which is substernal. Pt says she has chronic back pain and was taken off Coumadin for one week, she started her Coumadin again and Lovenox yesterday because she had "crushing chest pain" which scared her. She admits to subjective fevers at home and diarrhea (non bloody) as well as urinary frequency, urgency and dysuria but no hematuria. Pt feels as if she has extra fluids in her lungs. She admits to lightheadedness, abdominal pain. Denies syncope. She uses 2L NC at home. Pt said she had an endoscopy in November which revealed polyps and one was cancerous which was taken out. Per EMS, pt received DuoNeb and 2g MG. PMD: [place] PMH: see hpi PSH: See hpi Meds: see med rec Social: denies Allergies: b-blockers, contrast (face swelling) Past History - Past Medical History Allergies/Adverse Reactions: Allergies Allergy/AdvReac Type Severity Reaction Status Date / Time lactose Allergy Mild Verified 12/11/17 18:07 Beta-Blockers Allergy Verified 12/11/17 18:07 (Beta-Adrenergic Bloc Fish Containing Products Allergy Verified 12/11/17 18:07 fish derived Allergy Verified 12/11/17 18:07 Iodinated Contrast- Oral and Allergy Verified 12/11/17 18:07 IV Dye [IV Dye, Iodine Containing Contrast ] shellfish derived Allergy Verified 12/11/17 18:07 Home Medications: Ambulatory Orders Albuterol 0.083% Nebulizer Brigitte [Ventolin 0.083% Nebulizer Soln -] 1 neb NEB QID 06/21/17 Bupropion HCl [Wellbutrin Xl] 300 mg PO DAILY 06/21/17 Carbidopa/Levodopa [Carbidopa-Levodopa 25-100 Tab] 1 each PO TID 06/21/17 Cholecalciferol (Vitamin D3) [Vitamin D -] 1,000 unit PO DAILY 06/21/17 Citalopram Hydrobromide [Celexa -] 10 mg PO DAILY 06/21/17 Digoxin [Lanoxin -] 0.25 mg PO DAILY 06/21/17 Ferrous Sulfate [Iron] 325 mg PO DAILY 06/21/17 Hypromellose 0.5% Opth Soln [Artificial Tears] 1 drop OD QID 06/21/17 Pantoprazole Sodium [Protonix] 40 mg PO DAILY 06/21/17 Pramipexole Di-HCl [Mirapex] 0.5 mg PO TID 06/21/17 Ranolazine [Ranexa] 500 mg PO BID 06/21/17 Topiramate [Topamax] 150 mg PO BID 06/21/17 Verapamil HCl [Calan Sr] 240 mg PO DAILY 06/21/17 Triamcinolone 0.1% Cream [Aristocort 0.1% Cream -] 1 applic TP BID #60 gm Insulin Glargine,Hum.rec.anlog [Lantus Solostar PEN -] 40 units SQ AM 07/29/17 Torsemide [Demadex -] 40 mg PO AM 07/29/17 Budesonide/Formeterol Fumarate [SYMBICORT 160/4.5mcg -] 2 puff IH BID #1 inhaler MDD 2 08/06/17 Docusate Sodium [Colace -] 300 mg PO HS capsule 08/06/17 Insulin (Levemir) [Levemir Vial] 40 units SQ AM ml 08/06/17 Loratadine [Claritin -] 10 mg PO DAILY tablet 08/06/17 Tiotropium [place] [Spiriva] 1 puff IH DAILY cap 08/06/17 Warfarin Na [Coumadin -] 9 mg PO [id number]@1800 tablet 08/06/17 oxyCODONE HCL [Roxicodone -] 5 mg PO Q6H PRN #7 tablet MDD 3 08/06/17 predniSONE [Deltasone -] 20 mg PO DAILY #10 tablet 05/21/18 Anemia: Yes Asthma: Yes Cardiac Disorders: Yes (mitral valve replacement, stents x2,a-fib, CAD) CVA: Yes (MULTIPLE TIAs) COPD: Yes (Yes, O2 2L-3L) CHF: Yes DVT: No Diabetes: Yes GI Disorders: Yes (ulcers, GI bleed, hemorrhoids, diverticulosis) Disorders: Yes (bladder mesh) HTN: Yes Hypercholesterolemia: Yes Seizures: Yes Thyroid Disease: No - Surgical History Appendectomy: Yes Cardiac Surgery: Yes (stentsx2, mitral valve replacement, CABG) Cholecystectomy: Yes Orthopedic Surgery: Yes (left knee pain injection) - Immunization History Immunization Up to Date: Yes - Suicide/Smoking/Psychosocial Hx Smoking Status: No Smoking History: Unknown if ever smoked Have you smoked in the past 12 months: No Number of Cigarettes Smoked Daily: 0 If you are a former smoker, when did you quit?: many years Information on smoking cessation initiated: No Hx Alcohol Use: No Drug/Substance Use Hx: No Substance Use Type: None Hx Substance Use Treatment: No Review of Systems - Review of Systems Constitutional: Yes: Chills, Fever HEENTM: No: Eye Pain, Recent change in vision, Throat Pain Respiratory: Yes: Cough, Shortness of Breath, SOB with Exertion, SOB at Rest, Productive cough. No: Hemoptysis Cardiac (ROS): Yes: Chest Pain, Lightheadedness, Palpitations. No: Syncope ABD/GI: Yes: Diarrhea, Nausea, Abdominal cramping. No: Constipated, Vomiting : Yes: Dysuria, Frequency, Urgency Musculoskeletal: Yes: Back Pain (chronic lower back pain), Neck Pain Integumentary: No: Symptoms Reported Neurological: Yes: Headache. No: Numbness, Tingling, Tremors *Physical Exam - Vital Signs Last Vital Signs Temp Pulse Resp BP Pulse Ox 97.8 F 63 18 132/62 97 01/29/18 16:19 01/29/18 16:19 01/29/18 16:19 01/29/18 16:19 01/29/18 16:19 - Physical Exam General Appearance: Yes: Nourished, Appropriately Dressed, Mild Distress HEENT: positive: EOMI, LEONCIO, Pharynx Normal, Hearing Grossly Normal Neck: positive: Trachea midline, Supple. negative: Lymphadenopathy (R), Lymphadenopathy (L) Respiratory/Chest: positive: Rhonchi, Wheezing. negative: Lungs Clear, Crackles , Rales Cardiovascular: positive: Regular Rhythm, Regular Rate, S1, S2. negative: Edema , JVD, Murmur Vascular Pulses: Carotid (R): 2+, Carotid (L): 2+, Dorsalis-Pedis (R): 2+, Doralis-Pedis (L): 2+ Gastrointestinal/Abdominal: positive: Normal Bowel Sounds, Soft. negative: Distended, Guarding, Rebound, Tenderness Musculoskeletal: negative: CVA Tenderness Extremity: positive: Normal Capillary Refill Integumentary: positive: Normal Color, Dry, Warm Neurologic: positive: trimmer loader II-XII NML intact, Fully Oriented, Alert, Normal Mood/ Affect, Normal Response, Motor Strength 07/21 ED Treatment Course - LABORATORY CBC & Chemistry Diagram: 01/29/18 17:07 01/29/18 17:07 - RADIOLOGY Radiology Studies Ordered: Category Date Time Status CHEST X-RAY PORTABLE* [RAD] Stat Radiology 01/29/18 16:29 Ordered Medical Decision Making - Medical Decision Making 01/29/18 17:26 Pt is a 67yo female with significant PMH of CAD s/p bypass 2006, stent 2014, Afib (coumadin), CHF, COPD/Asthma, Mitral Valve replacement (2006), Lupus, Antiphospholipid syndrome, HTN, HLD, DM presenting to ED with complaints of shortness of breath and cough productive of yellow phlegm for the past 2-3 days. + CP Vitals: Selected Entries 01/29/18 16:19 Temperature 97.8 F Pulse Rate 63 Respiratory 18 Rate Blood Pressure 132/62 O2 Sat by Pulse 97 NC Oximetry (%) PE: wheezing and rhonci. No pitting edema. soft abdomen. DDx: PE, pna v. copd exacerbation v. chf exacerbation v. acs, Labs pending. INR ordered to see if pt is therapeutic (taken off Coumadin for about 1 week. ) Pt has antiphospholipid syndrome, high concern for clotting. Will order CTA. Pt received duoneb and 2g MG by EMS. Will order another duoneb and Solu-Medrol. EKG: T wave inversion in V2, III. T wave flattening in other leads, incomplete branch block. Similar to prior EKG. No MAEGAN or depressions. 01/29/18 22:11 Pt is allergic to contrast. Says her face swells when she gets it. Can start pt on prophylaxis however steroids need to be given in advance. Pt said she had steroids given in the past and she did not have a reaction. Another alternative is V/Q scan. Laboratory Tests 01/29/18 01/29/18 01/29/18 17:07 17:07 17:07 WBC 12.8 H Hgb 11.4 Hct 36.3 D Plt Count 247 Absolute Neuts (auto) 11.7 H Neutrophils % 91.2 H D PT with INR 14.70 H INR 1.24 H BUN 23 H Creatinine 1.0 Random Glucose 224 H Calcium 8.4 L Magnesium 2.7 H Troponin I 01/29/18 17:07 WBC Hgb Hct Plt Count Absolute Neuts (auto) Neutrophils % PT with INR INR BUN Creatinine Random Glucose Calcium Magnesium Troponin I < 0.02 Still waiting for UA. CXR: congestive changes. Will admit pt for copd exacerbation v. chf v. acs v. PE 01/29/18 22:14 *DC/Admit/Observation/Transfer Diagnosis at time of Disposition: Shortness of breath Chest pain Qualifiers: Chest pain type: unspecified Qualified Code(s): R07.9 - Chest pain, unspecified - Discharge Dispostion Condition at time of disposition: Good Decision to Admit order: Yes - Referrals - Patient Instructions - Post Discharge Activity
[2018-01-29] MEDS ORDERED: methylPREDNISolone NA SUCC 125 MG/2 ML VIAL ONE (17:28)
[2018-01-29 17:29] LABS: INR 1.24 (0.83-1.09); PROTHROMBIN TIME (PATIENT) 14.7 SEC (9.7-13.0)
[2018-01-29 17:39] LABS: ALK PHOS 84 U/L (45-117); ANION GAP 10 MMOL/L (8-16); BILIRUBIN,TOTAL 0.3 mg/dL (0.2-1); BLOOD UREA NITROGEN 23 mg/dL (7-18); CALCIUM 8.4 mg/dL (8.5-10.1); CHLORIDE 109 mmol/L (98-107); CO2 22 mmol/L (21-32); GLUCOSE,RANDOM 224 mg/dL (74-106); MAGNESIUM 2.7 mg/dL (1.8-2.4); SGOT/AST 15 U/L (15-37); SGPT/ALT 17 U/L (13-61); SODIUM 140 mmol/L (136-145)
[2018-01-29] MEDS ORDERED: ENOXAPARIN NA (PORCINE) 80 MG/0.8 ML DISP.SYRIN SQ ONE (18:36)
[2018-01-29] MEDS ORDERED: ENOXAPARIN NA (PORCINE) 100 MG/1 ML DISP.SYRIN SQ ONE (18:50)
[2018-01-29 19:54] LABS: URINE APPEARANCE SLCLOUDY; URINE BILIRUBIN NEGATIVE (<2.0 mg/dL); URINE COLOR YELLOW; URINE GLUCOSE (UA) NEGATIVE (NEGATIVE); URINE KETONE NEGATIVE (NEGATIVE); URINE LEUK ESTERASE 3+ (NEGATIVE); URINE NITRITE NEGATIVE (NEGATIVE); URINE PROTEIN NEGATIVE (NEGATIVE)
[2018-01-29 20:01] LABS: EPI CELLS MODERATE /HPF (FEW); URINE BACTERIA RARE /hpf (NONE SEEN); URINE MUCUS FEW
--- NOTE | 2018-01-29 20:40 | HP ---
CHIEF COMPLAINT: Worsening SOB cough PCP: Dr. Jose España HISTORY OF PRESENT ILLNESS: 67 year old female with a PMH significant for HTN, HLD, Parkinson's, Lupus, Fibromyalgia, DM, CHF, COPD (on 2L at home), sleep apnea (on CPAP), atrial fibrillation (on coumadin), anemia, asthma, glaucoma, MV replacement, CVA, spinal stenosis, CAD s/p 2 stents (2014) BIBA to ED with worsening cough, congestion and SOB over the past week. She said she had subjective fevers at home an intermittent diarrhea. She reported at one point having a crushing chest pain a few days ago which went away, no her chest only hurts when she coughs. Patient had a spinal block this week for her spinal stenosis, and her coumadin was held for one week, she re-started her coumadin and lovenox yesterday. She had an colonoscopy and endoscopy in November and a malignant polyp was removed. Upon admission to the ED, she was afebrile, VSS, labs notable for WBC of 12.8, INR subtheraputic at 1.24, UA +3 esterace, WBC 22, CXR notable for congestive changes compared with 2 months ago. Patient unable to have CTA given allergy to contrast. Recent Travel: NO PAST MEDICAL HISTORY: HTN HLD CAD s/p stent (2014) A.fib (on Coumadin) T2DM COPD/Asthma Sleep Apnea (on CPAP) CVA Parkinsons, Lupus (no longer on MTX due to side effects) Fibromyalgia Spinal stenosis MV replacement with mechanical valve Social History: lives at home, has two aids. Has needed them ever since she had her stents placed, and to help with her fibromyalgia. She ambulates with their assistance. Smoking: quit; smoked for 10 yrs, 3 cigarettes/day Alcohol: Rarely Drugs: No Family History: Father: heart disease Allergies lactose Allergy (Mild, Verified 12/11/17 18:07) Beta-Blockers (Beta-Adrenergic Bloc Allergy (Verified 12/11/17 18:07) Fish Containing Products Allergy (Verified 12/11/17 18:07) fish derived Allergy (Verified 12/11/17 18:07) Iodinated Contrast- Oral and IV Dye [IV Dye, Iodine Containing Contrast ] Allergy (Verified 12/11/17 18:07) shellfish derived Allergy (Verified 12/11/17 18:07) HOME MEDICATIONS: Home Medications Medication Instructions Recorded Albuterol 0.083% Nebulizer Brigitte 1 neb NEB QID 06/21/17 [Ventolin 0.083% Nebulizer Soln -] Bupropion HCl [Wellbutrin Xl] 300 mg PO DAILY 06/21/17 Carbidopa/Levodopa 1 each PO TID 06/21/17 [Carbidopa-Levodopa 25-100 Tab] Cholecalciferol (Vitamin D3) 1,000 unit PO DAILY 06/21/17 [Vitamin D -] Citalopram Hydrobromide [Celexa -] 10 mg PO DAILY 06/21/17 Digoxin [Lanoxin -] 0.25 mg PO DAILY 06/21/17 Ferrous Sulfate [Iron] 325 mg PO DAILY 06/21/17 Hypromellose 0.5% Opth Soln 1 drop OD QID 06/21/17 [Artificial Tears] Pantoprazole Sodium [Protonix] 40 mg PO DAILY 06/21/17 Pramipexole Di-HCl [Mirapex] 0.5 mg PO TID 06/21/17 Ranolazine [Ranexa] 500 mg PO BID 06/21/17 Topiramate [Topamax] 150 mg PO BID 06/21/17 Verapamil HCl [Calan Sr] 240 mg PO DAILY 06/21/17 Triamcinolone 0.1% Cream 1 applic TP BID #60 gm 06/28/17 [Aristocort 0.1% Cream -] Insulin Glargine,Hum.rec.anlog 40 units SQ AM 07/29/17 [Lantus Solostar PEN -] Torsemide [Demadex -] 40 mg PO AM 07/29/17 Budesonide/Formeterol Fumarate 2 puff IH BID #1 inhaler MDD 2 08/06/17 [SYMBICORT 160/4.5mcg -] Docusate Sodium [Colace -] 300 mg PO HS capsule 08/06/17 Insulin (Levemir) [Levemir Vial] 40 units SQ AM ml 08/06/17 Loratadine [Claritin -] 10 mg PO DAILY tablet 08/06/17 Tiotropium [place] [Spiriva] 1 puff IH DAILY cap 08/06/17 Warfarin Na [Coumadin -] 9 mg PO [id number]@1800 tablet 08/06/17 oxyCODONE HCL [Roxicodone -] 5 mg PO Q6H PRN #7 tablet MDD 3 08/06/17 predniSONE [Deltasone -] 20 mg PO DAILY #10 tablet 08/06/17 REVIEW OF SYSTEMS CONSTITUTIONAL: (+) Fever, chills, loss of appetite, weight change Absent: diaphoresis, generalized weakness, malaise, HEENT: Absent: rhinorrhea, nasal congestion, throat pain, throat swelling, difficulty swallowing, mouth swelling, ear pain, eye pain, visual changes CARDIOVASCULAR: (+) Chest pain (intermittent) Absent: syncope, palpitations, irregular heart rate, lightheadedness, peripheral edema RESPIRATORY: (+) cough, shortness of breath, wheezing Absent: dyspnea with exertion, orthopnea, stridor, hemoptysis GASTROINTESTINAL: (+) Diarrhea Absent: abdominal pain, abdominal distension, nausea, vomiting, constipation, melena, hematochezia GENITOURINARY: Absent: dysuria, frequency, urgency, hesitancy, hematuria, flank pain, genital pain MUSCULOSKELETAL: (+) myalgia, arthralgia, back pain Absent: joint swelling,neck pain SKIN: Absent: rash, itching, pallor HEMATOLOGIC/IMMUNOLOGIC: Absent: easy bleeding, easy bruising, lymphadenopathy, frequent infections ENDOCRINE: Absent: unexplained weight gain, unexplained weight loss, heat intolerance, cold intolerance NEUROLOGIC: Absent: headache, focal weakness or paresthesias, dizziness, unsteady gait, seizure, mental status changes, bladder or bowel incontinence PSYCHIATRIC: Absent: anxiety, depression, suicidal or homicidal ideation, hallucinations. PHYSICAL EXAMINATION Vital Signs - 24 hr 01/29/18 16:19 Temperature 97.8 F Pulse Rate 63 Respiratory 18 Rate Blood Pressure 132/62 O2 Sat by Pulse 97 Oximetry (%) GENERAL: Obese, awake, alert, and fully oriented, in no acute distress. HEAD: Normal with no signs of trauma. EYES: Pupils equal, round and reactive to light, extraocular movements intact, sclera anicteric, conjunctiva clear. No lid lag. EARS, NOSE, THROAT: +NC, nares patent, oropharynx clear without exudates. Moist mucous membranes. NECK: Normal range of motion, supple without lymphadenopathy, JVD, or masses. LUNGS: Ronchoruous breath sounds, expriatory wheeze, no crackles. No accessory muscle use. HEART: Regular rate and rhythm, normal S1 and S2 without murmur, rub or gallop. ABDOMEN: Obese, soft, nontender, not distended, normoactive bowel sounds, no guarding, no rebound, no masses. No hepatomegaly or splenomegaly. MUSCULOSKELETAL: Normal range of motion at all joints. No bony deformities or tenderness. No CVA tenderness. UPPER EXTREMITIES: 2+ pulses, warm, well-perfused. No cyanosis. No clubbing. No peripheral edema. LOWER EXTREMITIES: Hyperpigmentation to b/l LE, 2+ pulses, warm, well-perfused. No calf tenderness. No peripheral edema. NEUROLOGICAL: No facial droop, tongue midline, Normal speech. Normal gait. PSYCHIATRIC: Cooperative. Good eye contact. Appropriate mood and affect. SKIN: Warm, dry, normal turgor, no rashes or lesions noted, normal capillary refill. Laboratory Results - last 24 hr 01/29/18 01/29/18 01/29/18 17:07 17:07 17:07 WBC 12.8 H RBC 4.20 Hgb 11.4 Hct 36.3 D MCV 86.3 MCH 27.0 MCHC 31.3 L RDW 14.8 Plt Count 247 MPV 9.8 Absolute Neuts (auto) 11.7 H Neutrophils % 91.2 H D Lymphocytes % 4.7 L D Monocytes % 3.7 L Eosinophils % 0.0 D Basophils % 0.4 Nucleated RBC % 0 PT with INR INR VBG pH 7.35 POC VBG pCO2 39.0 POC VBG pO2 56.0 H Mixed VBG HCO3 21.0 Sodium 140 Potassium 4.0 Chloride 109 H Carbon Dioxide 22 Anion Gap 10 BUN 23 H Creatinine 1.0 Creat Clearance w eGFR 55.47 Random Glucose 224 H Calcium 8.4 L Phosphorus 3.0 Magnesium 2.7 H Total Bilirubin 0.3 AST 15 ALT 17 Alkaline Phosphatase 84 Troponin I Total Protein 7.0 Albumin 3.0 L Urine Color Urine Appearance Urine pH Ur Specific [place] Urine Protein Urine Glucose (UA) Urine Ketones Urine Blood Urine Nitrite Urine Bilirubin Urine Urobilinogen Ur Leukocyte Esterase Urine WBC (Auto) Urine RBC (Auto) Ur Epithelial Cells Urine Bacteria Urine Mucus 01/29/18 01/29/18 01/29/18 17:07 17:07 19:37 WBC RBC Hgb Hct MCV MCH MCHC RDW Plt Count MPV Absolute Neuts (auto) Neutrophils % Lymphocytes % Monocytes % Eosinophils % Basophils % Nucleated RBC % PT with INR 14.70 H INR 1.24 H VBG pH POC VBG pCO2 POC VBG pO2 Mixed VBG HCO3 Sodium Potassium Chloride Carbon Dioxide Anion Gap BUN Creatinine Creat Clearance w eGFR Random Glucose Calcium Phosphorus Magnesium Total Bilirubin AST ALT Alkaline Phosphatase Troponin I < 0.02 Total Protein Albumin Urine Color Yellow Urine Appearance Slcloudy Urine pH 5.0 D Ur Specific [place] 1.021 Urine Protein Negative Urine Glucose (UA) Negative Urine Ketones Negative Urine Blood Negative Urine Nitrite Negative Urine Bilirubin Negative Urine Urobilinogen 2.0 H Ur Leukocyte Esterase 3+ H Urine WBC (Auto) 22 Urine RBC (Auto) 13 Ur Epithelial Cells Moderate Urine Bacteria Rare Urine Mucus Few Diagnostics CXR: Congestive changes since 11/26/17 Urine culture: pending ASSESSMENT/PLAN: 66 year old female with a PMH significant for HTN, HLD, Parkinson's, Lupus , Fibromyalgia, DM, CHF, COPD (on 2L at home), sleep apnea (on CPAP), atrial fibrillation (on coumadin), anemia, asthma, glaucoma, MV replacement, CVA, spinal stenosis, CAD s/p 2 stents (2014) presented to the ED with worsening SOB , cough, and congestion. CXR with congestive changes, UA +, patient admitted to med-surg for antibiotic treatment for COPD exacerbation. COPD/Asthma Exacerbation - CXR with congestive changes, WBC 12.8, - Ceftriaxone 1 mg X 1 and Azithromycin 500 mg IVP x 1 - Prednisone 50 mg qday - On 2L at baseline, continue - Symbicort 160/4.5 BID - Spiriva qday - Loratadine 10 mg PO qday - Elevate HOB for better air entry - Nebs 1amp QID CHRIS UTI - UA with 3+ Esterase - WBC 22 - Given 1 G Ceftriaxone - Urine culture pending Intermittent chest pain - Possibly secondary to lupus - Trop # 1 negative, trend - EKG WNL Atrial fibrillation - MV replacement - EKG WNL- sinus - F/u INR 2.5-3.5 since with prosthetic MV - Started on hep gtt since sub-therapeutic - can bridge with coumadin 9mg POqd until therapeutic Lupus - Dx 2004 - was on MTX but d/c d/t hair falling out - Hx of past skin biopsy with evidence of lupus. - Temporarily on Prednisone 50 mg for COPD, taper to home dose of 20 mg PO qd when appropriate CAD - 2 stents (2014) - Continue Ranexa 500 mg PO BID HTN - Controlled - Continue topamax 150 mg PO BID - Verapamil 240mg PO qd Diastolic CHF - Currently euvolemic - Continue Torsemide 20mg PO TID - Continue Digoxin 0.25mg PO qd - F/u digoxin level - Fluid restriction - Na controlled diet - 2g Sleep apnea - Continue CPAP at night DM - Levemir 40 q SQ qAM - BGM - ISS ACHS Parkinson's disease - Continue carbidopa/levodopa 25-100 - Pramipexole 1.5 mg PO qHS - Continue outpatient neuro f/u Fibromyalgia/Spinal stenosis - Oxycodone 5 mg PO q6h PRN Depression - Bupropion 300 mg PO qday Iron Deficiency Anemia - H&H Stable - Continue FeSO4 325 qday Constipation - Colace 300 mg PO QHS Supplements - Cholecalciferol 1000 U qday Obesity - Dietary counselling FEN - No need for IVF at this time, avoid vol overload - pt w CHF - Serial lytes - Sodium controlled, diabetic diet Prophylaxis DVT: Continue Coumadin 9 mg QHS GI: Protonix 40 mg PO Dispo: pt currently requires further inpatient care. FULL CODE Visit type - Emergency Visit Emergency Visit: Yes Care time: The patient presented to the Emergency Department on the above date and was hospitalized for further evaluation of their emergent condition. - New Patient This patient is new to me today: Yes Date on this admission: 01/29/18 - Critical Care Critical Care patient: No
[2018-01-29] MEDS ORDERED: AZITHROMYCIN IVPB 500 MG in DEXTROSE 5%-WATER - 250 ML IVPB ONE (20:45)
[2018-01-29] MEDS ORDERED: CEFTRIAXONE 1 GM in DEXTROSE 5%-WATER - 50 ML IVPB ONE (20:45)
[2018-01-29] MEDS ORDERED: AZITHROMYCIN IVPB 500 MG/250 ML BAG IVPB ONE (20:59)
[2018-01-29] MEDS ORDERED: CEFTRIAXONE 1 GM/50 ML BAG ONE ×2 (21:00→21:21)
[2018-01-29] MEDS: PRAMIPEXOLE DIHYDROCHLORIDE 0.5 MG TABLET PO SCH (23:11)
[2018-01-29] MEDS: RANOLAZINE E.R. 500 MG TABLET (FP) PO SCH (23:11)
[2018-01-29] MEDS: TOPIRAMATE 100 MG TABLET PO SCH (23:12)
[2018-01-29] MEDS: BUDESONIDE/FORMETEROL FUMARATE 160/4.5 mcg INHALER IH SCH (23:12)
[2018-01-29] MEDS: CARBIDOPA/LEVODOPA 25/100 TABLET (FP) PO SCH (23:14)
[2018-01-29] MEDS ORDERED: CARBIDOPA/LEVODOPA 25/100 TABLET (FP) ONE (23:14)
[2018-01-29] MEDS ORDERED: DOCUSATE SODIUM 100 MG CAPSULE (FP) PO ONE (23:15)
[2018-01-29] MEDS: DOCUSATE SODIUM 100 MG CAPSULE (FP) PO SCH (23:16)
[2018-01-29] MEDS: TRIAMCINOLONE ACET 0.1% CREAM 15 GM TUBE TP SCH (23:25)
[2018-01-30] MEDS ORDERED: CARBIDOPA/LEVODOPA 25/250 TABLET (FP) ONE (06:07)
[2018-01-30] MEDS ORDERED: INSULIN (NOVOLOG) ASPART 100 UNITS/ML 10ML VIAL ONE ×3 (06:27→16:30)
[2018-01-30] MEDS: PRAMIPEXOLE DIHYDROCHLORIDE 0.5 MG TABLET PO SCH ×3 (06:38→21:47)
[2018-01-30] MEDS: INSULIN (LEVEMIR) 100 UNITS/ML UNITS SQ SCH (06:38)
[2018-01-30] MEDS: CARBIDOPA/LEVODOPA 25/100 TABLET (FP) PO SCH ×3 (06:38→21:48)
[2018-01-30] MEDS: INSULIN SLIDING SCALE (NOVOLOG) 1 VIAL SQ SCH ×3 (06:39→16:51)
[2018-01-30 06:44] LABS: INR 1.23 (0.83-1.09); PROTHROMBIN TIME (PATIENT) 14.5 SEC (9.7-13.0)
[2018-01-30 06:57] LABS: ALBUMIN 3.1 g/dl (3.4-5.0); ALK PHOS 86 U/L (45-117); ANION GAP 10 MMOL/L (8-16); BILIRUBIN,TOTAL 0.3 mg/dL (0.2-1); BLOOD UREA NITROGEN 26 mg/dL (7-18); CALCIUM 8.6 mg/dL (8.5-10.1); CHLORIDE 108 mmol/L (98-107); CO2 22 mmol/L (21-32); CREATININE 1.2 mg/dL (0.55-1.3); GLUCOSE,RANDOM 288 mg/dL (74-106); MAGNESIUM 2.4 mg/dL (1.8-2.4); POTASSIUM 4.2 mmol/L (3.5-5.1); SGOT/AST 13 U/L (15-37); SGPT/ALT 22 U/L (13-61); SODIUM 140 mmol/L (136-145); TOT PROT 7.1 g/dl (6.4-8.2)
--- NOTE | 2018-01-30 09:11 | PN ---
Progress Note, Physician Chief Complaint: EVENTS AND NOTES REVIEWED PATIENT COUGHING, C/O PRODUCTIVE SPUTUM SOB/WHEEZING - Current Medication List Current Medications: Active Medications Albuterol Sulfate (Ventolin 0.083% Nebulizer Soln -) 1 amp NEB Q4H PRN PRN Reason: SHORT OF BREATH/WHEEZING Budesonide/Formoterol Fumarate (Symbicort 160/4.5mcg -) 2 puff IH BID [facility] Last Admin: 01/29/18 23:12 Dose: 2 pfu Bupropion HCl (Wellbutrin Xl -) 300 mg PO DAILY [facility] Carbidopa/Levodopa (Sinemet 25/100 -) 1 each PO TID [facility] Last Admin: 01/30/18 06:38 Dose: 1 each Cholecalciferol (Vitamin D3 -) 1,000 unit PO DAILY [facility] Citalopram Hydrobromide (Celexa -) 10 mg PO DAILY [facility] Digoxin (Lanoxin -) 0.25 mg PO DAILY [facility] Docusate Sodium (Colace -) 300 mg PO HS [facility] Last Admin: 01/29/18 23:16 Dose: 300 mg Ferrous Sulfate (Feosol -) 325 mg PO DAILY [facility] Insulin Aspart (Novolog Vial Sliding Scale -) 1 vial SQ TIDAC [facility]; Protocol Last Admin: 01/30/18 06:39 Dose: 8 unit Insulin Detemir (Levemir Vial) 40 units SQ AM [facility] Last Admin: 01/30/18 06:38 Dose: 40 unit Loratadine (Claritin -) 10 mg PO DAILY [facility] Oxycodone HCl (Roxicodone -) 5 mg PO Q6H PRN PRN Reason: PAIN 7-10 Pantoprazole Sodium (Protonix -) 40 mg PO DAILY [facility] Pramipexole Dihydrochloride (Mirapex -) 0.5 mg PO TID [facility] Last Admin: 01/30/18 06:38 Dose: 0.5 mg Prednisone 40 mg/ Prednisone (10 mg) 50 mg PO DAILY [facility] Ranolazine (Ranexa -) 500 mg PO BID [facility] Last Admin: 01/29/18 23:11 Dose: 500 mg Tiotropium [place] (Spiriva Respimat) 2 puff IH DAILY [facility] Topiramate (Topamax -) 150 mg PO BID [facility] Last Admin: 01/29/18 23:12 Dose: 150 mg Torsemide (Demadex -) 40 mg PO DAILY [facility] Triamcinolone Acetonide (Aristocort 0.1% Cream -) 1 applic TP BID [facility] Last Admin: 01/29/18 23:25 Dose: Not Given Verapamil HCl (Calan Sr -) 240 mg PO DAILY [facility] - Objective Vital Signs: Vital Signs Temperature 98 F 01/30/18 06:01 Pulse Rate 60 01/30/18 06:01 Respiratory Rate 18 01/30/18 06:01 Blood Pressure 149/56 L 01/30/18 06:01 O2 Sat by Pulse Oximetry (%) 97 01/30/18 07:26 Constitutional: Yes: Mild Distress Eyes: Yes: WNL HENT: Yes: WNL Neck: Yes: WNL Cardiovascular: Yes: Pulse Irregular Respiratory: Yes: Cough, Wheezes Gastrointestinal: Yes: WNL Genitourinary: Yes: WNL Musculoskeletal: Yes: Muscle Weakness Extremities: Yes: WNL Edema: No Peripheral Pulses WNL: Yes Integumentary: Yes: WNL Wound/Incision: Yes: Clean/Dry Neurological: Yes: Pre-Existing Deficit ...Motor Strength: LLE, RLE Psychiatric: Yes: WNL Labs: CBC, BMP 01/29/18 17:07 01/30/18 05:45 INR, PTT INR 1.23 (0.83-1.09) H 01/30/18 05:45 Problem List - Problems (1) COPD exacerbation Code(s): J44.1 - CHRONIC OBSTRUCTIVE PULMONARY DISEASE W (ACUTE) EXACERBATION (2) Chest pain Code(s): R07.9 - CHEST PAIN, UNSPECIFIED Qualifiers: Chest pain type: unspecified Qualified Code(s): R07.9 - Chest pain, unspecified (3) SOB (shortness of breath) Code(s): R06.02 - SHORTNESS OF BREATH (4) Abdominal pain, vomiting, and diarrhea Code(s): R10.9 - UNSPECIFIED ABDOMINAL PAIN; R11.10 - VOMITING, UNSPECIFIED; R19.7 - DIARRHEA, UNSPECIFIED (5) Acute bilateral low back pain Code(s): M54.5 - LOW BACK PAIN (6) Afib Code(s): I48.91 - UNSPECIFIED ATRIAL FIBRILLATION Qualifiers: Atrial fibrillation type: paroxysmal Qualified Code(s): I48.0 - Paroxysmal atrial fibrillation (7) Asthma exacerbation in COPD Code(s): J44.1 - CHRONIC OBSTRUCTIVE PULMONARY DISEASE W (ACUTE) EXACERBATION; J45.901 - UNSPECIFIED ASTHMA WITH (ACUTE) EXACERBATION (8) CAD (coronary artery disease) Code(s): I25.10 - ATHSCL HEART DISEASE OF [place] CORONARY ARTERY W/O ANG PCTRS (9) Cough Code(s): R05 - COUGH (10) Diabetes Code(s): E11.9 - TYPE 2 DIABETES MELLITUS WITHOUT COMPLICATIONS Qualifiers: Diabetes mellitus type: type 2 Diabetes mellitus complication status: with neurologic complications (11) Dyslipidemia Code(s): E78.5 - HYPERLIPIDEMIA, UNSPECIFIED (12) Fibromyalgia Code(s): M79.7 - FIBROMYALGIA Assessment/Plan IV ABX NEBS STEROIDS 02 SUPPORT COUGH SYRUP OOB PAIN CONTROL PULM/CARDIOLOGY EVAL
[2018-01-30] MEDS ORDERED: predniSONE 20 MG TABLET (UD) PO SCH (10:00)
[2018-01-30] MEDS ORDERED: predniSONE 40 MG, predniSONE 10 MG PO SCH (10:00)
[2018-01-30] MEDS: VERAPAMIL HCL 240 MG E.R. TABLET (FP) PO SCH (10:51)
[2018-01-30] MEDS: CITALOPRAM HYDROBROMIDE 10 MG TABLET (FP) PO SCH (10:51)
[2018-01-30] MEDS: TORSEMIDE 20 MG TABLET (FP) PO SCH (10:53)
[2018-01-30] MEDS: RANOLAZINE E.R. 500 MG TABLET (FP) PO SCH ×2 (10:54→21:49)
[2018-01-30] MEDS: DIGOXIN 0.25 MG TABLET (FP) PO SCH (10:54)
[2018-01-30] MEDS: PANTOPRAZOLE 40 MG TABLET (FP) PO SCH (10:54)
[2018-01-30] MEDS: BUDESONIDE/FORMETEROL FUMARATE 160/4.5 mcg INHALER IH SCH ×2 (10:56→21:51)
[2018-01-30] MEDS ORDERED: PT OWN MED DRAWER 7, Y5N ONE ×4 (11:25→21:38)
[2018-01-30] MEDS ORDERED: predniSONE 10 MG TABLET (UD) ONE (11:31)
[2018-01-30] MEDS ORDERED: predniSONE 20 MG TABLET (UD) ONE (11:31)
--- NOTE | 2018-01-30 11:34 | EKG ---
Test Reason : Blood Pressure : / mmHG Vent. Rate : 056 BPM Atrial Rate : 056 BPM P-R Int : 166 ms QRS Dur : 094 ms QT Int : 436 ms P-R-T Axes : 027 030 -03 degrees QTc Int : 420 ms SINUS BRADYCARDIA RSR' OR QR PATTERN IN V1 SUGGESTS RIGHT VENTRICULAR CONDUCTION DELAY NONSPECIFIC T WAVE ABNORMALITY ABNORMAL ECG WHEN COMPARED WITH ECG OF 11-DEC-2017 18:09, NONSPECIFIC T WAVE ABNORMALITY HAS REPLACED INVERTED T WAVES IN INFERIOR LEADS Confirmed by VICENTE MEZA, SIERRA ([id number]) on 01/30/2018 11:33:52 AM Referred By: Confirmed By:SIERRA ZHANG MD
[2018-01-30] MEDS: LORATADINE 10 MG TABLET PO SCH (11:35)
[2018-01-30] MEDS: FERROUS SO4 325 MG TABLET (FP) PO SCH (11:36)
[2018-01-30] MEDS: CHOLECALCIFEROL (VITAMIN D3) 1,000 UNIT TABLET (FP) PO SCH (11:37)
[2018-01-30] MEDS: TOPIRAMATE 100 MG TABLET PO SCH ×2 (14:07→21:48)
[2018-01-30] MEDS: TRIAMCINOLONE ACET 0.1% CREAM 15 GM TUBE TP SCH ×2 (14:08→22:05)
[2018-01-30] MEDS: TIOTROPIUM BROMIDE 2.5 MCG (SPIRIVA) RESPIMAT INHALER IH SCH (14:08)
--- NOTE | 2018-01-30 14:16 | CON.PULM ---
Consult Consult Specialty:: PULMONARY Referred by:: Dr. Baxter Reason for Consultation:: COPD - History of Present Illness Chief Complaint: shortness of breath History of Present Illness: 67yo female with h/o HTN, DM, hyperlipidemia, COPD, chronic hypoxic respiratory failure on home O2, FIGUEROA on home CPAP, atrial fibrillation, LV diastolic dysfunction, CAD, h/o mechanical MVR, CVA who presents with worsening shortness of breath x 1 week. Reports a cough productive of yellow/green sputum as well as wheezing. +subjective fevers and chills. Started taking prednisone on her own 4 days ago without significant improvement. Was unable to use her night time CPAP due to the shortness of breath. - History Source History Provided By: Patient, Medical Record Limitations to Obtaining History: No Limitations - Past Medical History [employer]: Yes: CVA, Migraine, Other (light-headedness and dizziness) Cardio/Vascular: Yes: AFIB, CAD, CHF, HTN, Hyperlipdemia, Other (S/P [facility] mitral valve replacement) Pulmonary: Yes: Asthma, COPD, Sleep Apnea (on CPAP at night) Gastrointestinal: Yes: Constipation, Diverticulosis, GI Bleed, Hemorrhoids Musculoskeletal: Yes: Chronic low back pain, Other (Spinal stenosis) Rheumatology: Yes: Lupus, Other (APLAS (BOTH LUPUS AND APLS ARE QUESTIONABLE)) Endocrine: Yes: Diabetes Mellitus Additional Medical History: morbid obesity - Past Surgical History Past Surgical History: Yes: CABG, Cholecystectomy, Hysterectomy, Oopherectomy - Alcohol/Substance Use Hx Alcohol Use: No History of Substance Use: reports: None - Smoking History Smoking history: Unknown if ever smoked Have you smoked in the past 12 months: No Aproximately how many cigarettes per day: 0 If you are a former smoker, when did you quit?: many years - Social History Usual Living Arrangement: With Spouse ADL: Independent History of Recent Travel: No Home Medications - Allergies Allergies/Adverse Reactions: Allergies Allergy/AdvReac Type Severity Reaction Status Date / Time lactose Allergy Mild Verified 12/11/17 18:07 Beta-Blockers Allergy Verified 12/11/17 18:07 (Beta-Adrenergic Bloc Fish Containing Products Allergy Verified 12/11/17 18:07 fish derived Allergy Verified 12/11/17 18:07 Iodinated Contrast- Oral and Allergy Verified 12/11/17 18:07 IV Dye [IV Dye, Iodine Containing Contrast ] shellfish derived Allergy Verified 12/11/17 18:07 - Home Medications Home Medications: Ambulatory Orders Albuterol 0.083% Nebulizer Brigitte [Ventolin 0.083% Nebulizer Soln -] 1 neb NEB QID 06/21/17 Bupropion HCl [Wellbutrin Xl] 300 mg PO DAILY 06/21/17 Carbidopa/Levodopa [Carbidopa-Levodopa 25-100 Tab] 1 each PO TID 06/21/17 Cholecalciferol (Vitamin D3) [Vitamin D -] 1,000 unit PO DAILY 06/21/17 Citalopram Hydrobromide [Celexa -] 10 mg PO DAILY 06/21/17 Digoxin [Lanoxin -] 0.25 mg PO DAILY 06/21/17 Ferrous Sulfate [Iron] 325 mg PO DAILY 06/21/17 Hypromellose 0.5% Opth Soln [Artificial Tears] 1 drop OD QID 06/21/17 Pantoprazole Sodium [Protonix] 40 mg PO DAILY 06/21/17 Pramipexole Di-HCl [Mirapex] 0.5 mg PO TID 06/21/17 Ranolazine [Ranexa] 500 mg PO BID 06/21/17 Topiramate [Topamax] 150 mg PO BID 06/21/17 Verapamil HCl [Calan Sr] 240 mg PO DAILY 06/21/17 Triamcinolone 0.1% Cream [Aristocort 0.1% Cream -] 1 applic TP BID #60 gm Insulin Glargine,Hum.rec.anlog [Lantus Solostar PEN -] 40 units SQ AM 07/29/17 Torsemide [Demadex -] 40 mg PO AM 07/29/17 Budesonide/Formeterol Fumarate [SYMBICORT 160/4.5mcg -] 2 puff IH BID #1 inhaler MDD 2 08/06/17 Docusate Sodium [Colace -] 300 mg PO HS capsule 08/06/17 Insulin (Levemir) [Levemir Vial] 40 units SQ AM ml 08/06/17 Loratadine [Claritin -] 10 mg PO DAILY tablet 08/06/17 Tiotropium [place] [Spiriva] 1 puff IH DAILY cap 08/06/17 Warfarin Na [Coumadin -] 9 mg PO [id number]@1800 tablet 08/06/17 oxyCODONE HCL [Roxicodone -] 5 mg PO Q6H PRN #7 tablet MDD 3 08/06/17 predniSONE [Deltasone -] 20 mg PO DAILY #10 tablet 08/06/17 Family Disease History - Family Disease History Family Disease History: Diabetes: Grandparent, Mother, Heart Disease: Father, Other: Sister (Lupus) Review of Systems - Review of Systems Constitutional: reports: Chills, Fever, Weakness Eyes: denies: Recent Change in Vision HENT: denies: Nasal Congestion, Throat Pain Neck: denies: Stiffness, Tenderness Cardiovascular: reports: Chest Pain, Shortness of Breath. denies: Edema, Palpitations Respiratory: reports: Cough, Wheezing. denies: Hemoptysis Gastrointestinal: denies: Abdominal Pain, Nausea, Vomiting Genitourinary: denies: Dysuria, Hematuria Neurological: denies: Dizziness, Headache Endocrine: denies: Unexplained Weight Loss Physical Exam Vital Sings: Vital Signs Temperature 97.2 F L 01/30/18 09:35 Pulse Rate 59 L 01/30/18 10:54 Respiratory Rate 20 01/30/18 09:35 Blood Pressure 144/99 01/30/18 09:35 O2 Sat by Pulse Oximetry (%) 98 01/30/18 09:35 Constitutional: Yes: Anxious Eyes: Yes: Conjunctiva Clear, EOM Intact HENT: Yes: Atraumatic, Normocephalic Neck: Yes: Supple, Trachea Midline Cardiovascular: Yes: Pulse Irregular Respiratory: Yes: Rhonchi, Wheezes ...Clubbing: No Gastrointestinal: Yes: Normal Bowel Sounds, Soft. No: Tenderness Edema: No Neurological: Yes: Alert, Oriented Labs: CBC, BMP 01/29/18 17:07 01/30/18 05:45 Imaging - Results Chest X-ray: Report Reviewed, Image Reviewed (mild pulmonary vascular congestion ) Problem List - Problems (1) COPD exacerbation Code(s): J44.1 - CHRONIC OBSTRUCTIVE PULMONARY DISEASE W (ACUTE) EXACERBATION (2) Afib Code(s): I48.91 - UNSPECIFIED ATRIAL FIBRILLATION Qualifiers: Atrial fibrillation type: paroxysmal Qualified Code(s): I48.0 - Paroxysmal atrial fibrillation (3) CAD (coronary artery disease) Code(s): I25.10 - ATHSCL HEART DISEASE OF [place] CORONARY ARTERY W/O ANG PCTRS (4) CHF (congestive heart failure) Code(s): I50.9 - HEART FAILURE, UNSPECIFIED (5) Diabetes Code(s): E11.9 - TYPE 2 DIABETES MELLITUS WITHOUT COMPLICATIONS Qualifiers: Diabetes mellitus type: type 2 Diabetes mellitus complication status: with neurologic complications (6) HTN (hypertension) Code(s): I10 - ESSENTIAL (PRIMARY) HYPERTENSION Qualifiers: Hypertension type: essential hypertension Qualified Code(s): I10 - Essential (primary) hypertension (7) Lupus Code(s): L93.0 - DISCOID LUPUS ERYTHEMATOSUS (8) FIGUEROA (obstructive sleep apnea) Code(s): G47.33 - OBSTRUCTIVE SLEEP APNEA (ADULT) (PEDIATRIC) Assessment/Plan Acute COPD Exacerbation Chronic Hypoxic Respiratory Failure Obstructive Sleep Apnea LV Diastolic Dysfunction CAD h/o MVR Atrial Fibrillation HTN DM Hyperlipidemia Lupus UTI - continue antibiotics for UTI - f/u cultures - IV medrol - inhaled bronchodilators - O2 to keep Spo2 >90% - CPAP at night - rate control - continue anticoagulation Thank you for this consult Benoit Martinez MD
[2018-01-30] MEDS: ALBUTEROL SO4 0.083% IH SOL 2.5 MG/3 ML VIAL.NEB. NEB SCH ×2 (16:00→21:30)
--- NOTE | 2018-01-30 16:06 | CON.CARD ---
Cardiology Consult (text) - Consultation Consultation Note: Cc: sob, cough hpi: 67 year old lady with past medical history of COPD on home 02, FIGUEROA (on cpap at home), CAD (s/p single vessel CABG 2006 with RUSSELL to OM and ROSALINA x2 to LAD 12/2011; last cath 06/2014 showed patent RUSSELL, patent LAD stents, no sig residual dz except for 80-90% OM that is bypassed), mech mvr ([facility], 2006, on coumadin), anemia, TIA, dCHF, DM, HTN, pafib, antiphospholipid syndrome (on coumadin), fibromyalgia, migraines, chronic atypical cp, obesity, LBP here with sob, cough. Past few days worse sob, cough, yellow sputum. Central chest pain with coughing. No loc, orthopnea. Le edema minimal. Tolerating meds, no bleeding with ac. Chronic body aches and back pain persist. Sees me for cardio. pmh: per hpi psh: cabg, cholecystectomy, mvr, hysterectomy social: ex tob fam hx: no premature cad or scd ros: per hpi; no fever, nvd, vision changes, rash, gib meds: Home Medications Medication Instructions Recorded Albuterol 0.083% Nebulizer Brigitte 1 neb NEB QID 06/21/17 [Ventolin 0.083% Nebulizer Soln -] Bupropion HCl [Wellbutrin Xl] 300 mg PO DAILY 06/21/17 Carbidopa/Levodopa 1 each PO TID 06/21/17 [Carbidopa-Levodopa 25-100 Tab] Cholecalciferol (Vitamin D3) 1,000 unit PO DAILY 06/21/17 [Vitamin D -] Citalopram Hydrobromide [Celexa -] 10 mg PO DAILY 06/21/17 Digoxin [Lanoxin -] 0.25 mg PO DAILY 06/21/17 Ferrous Sulfate [Iron] 325 mg PO DAILY 06/21/17 Hypromellose 0.5% Opth Soln 1 drop OD QID 06/21/17 [Artificial Tears] Pantoprazole Sodium [Protonix] 40 mg PO DAILY 06/21/17 Pramipexole Di-HCl [Mirapex] 0.5 mg PO TID 06/21/17 Ranolazine [Ranexa] 500 mg PO BID 06/21/17 Topiramate [Topamax] 150 mg PO BID 06/21/17 Verapamil HCl [Calan Sr] 240 mg PO DAILY 06/21/17 Triamcinolone 0.1% Cream 1 applic TP BID #60 gm 06/28/17 [Aristocort 0.1% Cream -] Insulin Glargine,Hum.rec.anlog 40 units SQ AM 07/29/17 [Lantus Solostar PEN -] Torsemide [Demadex -] 40 mg PO AM 07/29/17 Budesonide/Formeterol Fumarate 2 puff IH BID #1 inhaler MDD 2 08/06/17 [SYMBICORT 160/4.5mcg -] Docusate Sodium [Colace -] 300 mg PO HS capsule 08/06/17 Insulin (Levemir) [Levemir Vial] 40 units SQ AM ml 08/06/17 Loratadine [Claritin -] 10 mg PO DAILY tablet 08/06/17 Tiotropium [place] [Spiriva] 1 puff IH DAILY cap 08/06/17 Warfarin Na [Coumadin -] 9 mg PO [id number]@1800 tablet 08/06/17 oxyCODONE HCL [Roxicodone -] 5 mg PO Q6H PRN #7 tablet MDD 3 08/06/17 predniSONE [Deltasone -] 20 mg PO DAILY #10 tablet 08/06/17 pe: Vital Signs Period Temp Pulse Resp BP Sys/Wise Pulse Ox Last 24 Hr 97.2 F-98.6 F 59-98 16-20 117-158/56-99 97-99 nad no jvd rrr s1s2 no mrg b/l exp wheeze, nl eff aaox3 no le e/c/c pos dp pt no carotid bruits no jaundice diaphoresis abd nt pos bs, nd +reproducible chest wall pain (chronic) Laboratory Last Values WBC 12.8 K/mm3 (4.0-10.0) H 01/29/18 17:07 RBC 4.20 M/mm3 (3.60-5.2) 01/29/18 17:07 Hgb 11.4 GM/dL (10.7-15.3) 01/29/18 17:07 Hct 36.3 % (32.4-45.2) D 01/29/18 17:07 MCV 86.3 fl (80-96) 01/29/18 17:07 MCH 27.0 pg (25.7-33.7) 01/29/18 17:07 MCHC 31.3 g/dl (32.0-36.0) L 01/29/18 17:07 RDW 14.8 % (11.6-15.6) 01/29/18 17:07 Plt Count 247 K/MM3 (134-434) 01/29/18 17:07 MPV 9.8 fl (7.5-11.1) 01/29/18 17:07 Absolute Neuts (auto) 11.7 K/mm3 (1.5-8.0) H 01/29/18 17:07 Neutrophils % 91.2 % (42.8-82.8) H D 01/29/18 17:07 Neutrophils % (Manual) 93.0 % (42.8-82.8) H 01/29/18 17:07 Band Neutrophils % 0.0 % 01/29/18 17:07 Lymphocytes % 4.7 % (8-40) L D 01/29/18 17:07 Lymphocytes % (Manual) 3.0 % (8-40) L D 01/29/18 17:07 Monocytes % 3.7 % (3.8-10.2) L 01/29/18 17:07 Monocytes % (Manual) 4 % (3.8-10.2) 01/29/18 17:07 Eosinophils % 0.0 % (0-4.5) D 01/29/18 17:07 Eosinophils % (Manual) 0.0 % (0-4.5) D 01/29/18 17:07 Basophils % 0.4 % (0-2.0) 01/29/18 17:07 Basophils % (Manual) 0.0 % (0-2.0) 01/29/18 17:07 Nucleated RBC % 0 % (0-0) 01/29/18 17:07 PT with INR 14.50 SEC (9.7-13.0) H 01/30/18 05:45 INR 1.23 (0.83-1.09) H 01/30/18 05:45 VBG pH 7.35 (7.32-7.42) 01/29/18 17:07 POC VBG pCO2 39.0 mmHg (38-52) 01/29/18 17:07 POC VBG pO2 56.0 mmHg (28-48) H 01/29/18 17:07 Mixed VBG HCO3 21.0 meq/L (19-25) 01/29/18 17:07 Sodium 140 mmol/L (136-145) 01/30/18 05:45 Potassium 4.2 mmol/L (3.5-5.1) 01/30/18 05:45 Chloride 108 mmol/L (98-107) H 01/30/18 05:45 Carbon Dioxide 22 mmol/L (21-32) 01/30/18 05:45 Anion Gap 10 MMOL/L (8-16) 01/30/18 05:45 BUN 26 mg/dL (7-18) H 01/30/18 05:45 Creatinine 1.2 mg/dL (0.55-1.3) 01/30/18 05:45 Creat Clearance w eGFR 44.95 (>60) 01/30/18 05:45 POC Glucometer 164 UNITS (80-120) 01/30/18 16:46 Random Glucose 288 mg/dL (74-106) H 01/30/18 05:45 Calcium 8.6 mg/dL (8.5-10.1) 01/30/18 05:45 Phosphorus 3.0 mg/dL (2.5-4.9) 01/29/18 17:07 Magnesium 2.4 mg/dL (1.8-2.4) 01/30/18 05:45 Total Bilirubin 0.3 mg/dL (0.2-1) 01/30/18 05:45 AST 13 U/L (15-37) L 01/30/18 05:45 ALT 22 U/L (13-61) 01/30/18 05:45 Alkaline Phosphatase 86 U/L (45-117) 01/30/18 05:45 Troponin I < 0.02 ng/ml (0.00-0.05) 01/30/18 07:28 Total Protein 7.1 g/dl (6.4-8.2) 01/30/18 05:45 Albumin 3.1 g/dl (3.4-5.0) L 01/30/18 05:45 Urine Color Yellow 01/29/18 19:37 Urine Appearance Slcloudy 01/29/18 19:37 Urine pH 5.0 (5.0-8.0) D 01/29/18 19:37 Ur Specific [place] 1.021 (1.010-1.035) 01/29/18 19:37 Urine Protein Negative (NEGATIVE) 01/29/18 19:37 Urine Glucose (UA) Negative (NEGATIVE) 01/29/18 19:37 Urine Ketones Negative (NEGATIVE) 01/29/18 19:37 Urine Blood Negative (NEGATIVE) 01/29/18 19:37 Urine Nitrite Negative (NEGATIVE) 01/29/18 19:37 Urine Bilirubin Negative (<2.0 mg/dL) 01/29/18 19:37 Urine Urobilinogen 2.0 mg/dL (0.2-1.0) H 01/29/18 19:37 Ur Leukocyte Esterase 3+ (NEGATIVE) H 01/29/18 19:37 Urine WBC (Auto) 22 /hpf (3-5) 01/29/18 19:37 Urine RBC (Auto) 13 /hpf (0-3) 01/29/18 19:37 Ur Epithelial Cells Moderate /HPF (FEW) 01/29/18 19:37 Urine Bacteria Rare /hpf (NONE SEEN) 01/29/18 19:37 Urine Mucus Few 01/29/18 19:37 ecg 07/03/14: sr, nl intervals, no ischemic changes, no sig change from prior echo 04/2013: normal LV/RVF, normally functioning mech MVR Echo 11/2013; normal LV/RVF, normally functioning mech mitral valve, small peric effusion--unchanged from prev echo 06/2014: nl lv/rv, lae, normal fcn mech mvr, rvsp 30-40 echo 07/2015: tds; nl lv/rv, mild lae, nl mech mvr echo 10/2016: nl lv/rv, mild lae, nl mech mvr, small pericardial eff echo ([facility]) 03/2017: nl lv/rv, nl mvr, mild as mibi 12/2013: no ischemia mibi 04/2016: no ecg changes, no ischemia/scar, nl lvef holter 08/2015: sr, benign study.eg cxr: no chf a/p: 67 year old lady with past medical history of COPD on home 02, FIGUEROA (on cpap at home), CAD (s/p single vessel CABG 2006 with RUSSELL to OM and ROSALINA x2 to LAD 12/2011; last cath 06/2014 showed patent RUSSELL, patent LAD stents, no sig residual dz except for 80-90% OM that is bypassed), [facility] mvr ([facility], 2006, on coumadin), anemia, TIA, dCHF, DM, HTN, pafib, antiphospholipid syndrome (on coumadin), fibromyalgia, migraines, chronic atypical cp, obesity, LBP here with sob, cough. sob, acute copd exacerbation: -no signs chf or acs, sxs likely from copd -cont iv steroids per pulm Atyp CP: -chronic recurrent sx for the pt, worsened now due to coughing from copd -MSK features, reproducible on exam -NST for this cp in 12/2013 and 04/2016 showed no ischemia and prior cath for this persistent cp 06/2014 showed patent graft and prior pci, no significant residual dz -current pain does not seem cardiac, likely due to fibromyalgia , coughing cad, s/p cabg, pci: -as above -normal lvef on recent echo, no anginal sxs -no bb due to copd, on verapamil instead -not on statin due to prior intolerance -cont ranexa for possible small vessel dz symptoms -given her epistaxis asa stopped as she is on ac. dizziness: -pt c/o some dizziness at times (not positional, occurs even when laying down still in bed). Persisted even with holding ranexa so not side effect related. Recent holter and echo unremarkable. Continued outpt f/u with neuro, ent. [facility] MVR: -on AC w/ coumadin, target INR 2.5 to 3.5, cont lovenox bridging while inr subtherapeutic -recent echo with normal [facility] mvr function Hx of mod pericardial effusion: -no effusion reported on recent echo HTN: Remains controlled on current meds. pafib: -rare episodes in past -remains in sr -recent holter showed sr only -continue verapamil and dig -cont ac with coumadin, has hx of TIA chronic HFpEF: -vol status has been stable on torsemide 40-80 qd. -baseline wt has been high 190lbs
[2018-01-30] MEDS: methylPREDNISolone NA SUCC 40 MG/1 ML VIAL IVPUSH SCH ×2 (16:51→18:54)
[2018-01-30] MEDS: WARFARIN NA 3 MG TABLET PO SCH ×2 (17:54→18:05)
[2018-01-30] MEDS ORDERED: WARFARIN NA 3 MG TABLET PO SCH (18:00)
[2018-01-30] MEDS: DOCUSATE SODIUM 100 MG CAPSULE (FP) PO SCH (21:46)
[2018-01-30] MEDS: ENOXAPARIN NA (PORCINE) 100 MG/1 ML DISP.SYRIN SQ SCH (21:49)
[2018-01-31] MEDS: methylPREDNISolone NA SUCC 40 MG/1 ML VIAL IVPUSH SCH ×3 (01:11→18:24)
[2018-01-31] MEDS: ALBUTEROL SO4 0.083% IH SOL 2.5 MG/3 ML VIAL.NEB. NEB PRN ×2 (03:15→23:22)
[2018-01-31] MEDS: CARBIDOPA/LEVODOPA 25/100 TABLET (FP) PO SCH ×3 (05:38→21:15)
[2018-01-31] MEDS: PRAMIPEXOLE DIHYDROCHLORIDE 0.5 MG TABLET PO SCH ×3 (05:38→21:15)
[2018-01-31] MEDS: INSULIN SLIDING SCALE (NOVOLOG) 1 VIAL SQ SCH ×3 (05:59→18:24)
[2018-01-31] MEDS: INSULIN (LEVEMIR) 100 UNITS/ML UNITS SQ SCH (05:59)
[2018-01-31] MEDS: ALBUTEROL SO4 0.083% IH SOL 2.5 MG/3 ML VIAL.NEB. NEB SCH ×4 (07:45→20:49)
--- NOTE | 2018-01-31 10:11 | PN ---
Progress Note, Physician Chief Complaint: AWAKE ALERT STILL COUGHING NO FEVERS - Current Medication List Current Medications: Active Medications Albuterol Sulfate (Ventolin 0.083% Nebulizer Soln -) 1 amp NEB Q4H PRN PRN Reason: SHORT OF BREATH/WHEEZING Last Admin: 01/31/18 03:15 Dose: 1 amp Albuterol Sulfate (Ventolin 0.083% Nebulizer Soln -) 1 amp NEB RQID [facility] Last Admin: 01/31/18 07:45 Dose: 1 amp Budesonide/Formoterol Fumarate (Symbicort 160/4.5mcg -) 2 puff IH BID [facility] Last Admin: 01/30/18 21:51 Dose: 2 pfu Bupropion HCl (Wellbutrin Xl -) 300 mg PO DAILY [facility] Last Admin: 01/30/18 10:56 Dose: 300 mg Carbidopa/Levodopa (Sinemet 25/100 -) 1 each PO TID [facility] Last Admin: 01/31/18 05:38 Dose: 1 each Cholecalciferol (Vitamin D3 -) 1,000 unit PO DAILY [facility] Last Admin: 01/30/18 11:37 Dose: 1,000 unit Citalopram Hydrobromide (Celexa -) 10 mg PO DAILY [facility] Last Admin: 01/30/18 10:51 Dose: 10 mg Digoxin (Lanoxin -) 0.25 mg PO DAILY [facility] Last Admin: 01/30/18 10:54 Dose: 0.25 mg Docusate Sodium (Colace -) 300 mg PO HS [facility] Last Admin: 01/30/18 21:46 Dose: 300 mg Enoxaparin Sodium (Lovenox -) 90 mg SQ BID [facility] Last Admin: 01/30/18 21:49 Dose: 90 mg Ferrous Sulfate (Feosol -) 325 mg PO DAILY [facility] Last Admin: 01/30/18 11:36 Dose: 325 mg Insulin Aspart (Novolog Vial Sliding Scale -) 1 vial SQ TIDAC [facility]; Protocol Last Admin: 01/31/18 05:59 Dose: 6 unit Insulin Detemir (Levemir Vial) 40 units SQ AM [facility] Last Admin: 01/31/18 05:59 Dose: 40 unit Loratadine (Claritin -) 10 mg PO DAILY [facility] Last Admin: 01/30/18 11:35 Dose: 10 mg Methylprednisolone Sodium Succinate (Solu-Medrol -) 40 mg IVPUSH Q8H-IV [facility] Last Admin: 01/31/18 01:11 Dose: 40 mg Oxycodone HCl (Roxicodone -) 5 mg PO Q6H PRN PRN Reason: PAIN 7-10 Pantoprazole Sodium (Protonix -) 40 mg PO DAILY [facility] Last Admin: 01/30/18 10:54 Dose: 40 mg Pramipexole Dihydrochloride (Mirapex -) 0.5 mg PO TID [facility] Last Admin: 01/31/18 05:38 Dose: 0.5 mg Ranolazine (Ranexa -) 500 mg PO BID [facility] Last Admin: 01/30/18 21:49 Dose: 500 mg Tiotropium [place] (Spiriva Respimat) 2 puff IH DAILY [facility] Last Admin: 01/30/18 14:08 Dose: 2 puff Topiramate (Topamax -) 150 mg PO BID [facility] Last Admin: 01/30/18 21:48 Dose: 150 mg Torsemide (Demadex -) 40 mg PO DAILY [facility] Last Admin: 01/30/18 10:53 Dose: 40 mg Triamcinolone Acetonide (Aristocort 0.1% Cream -) 1 applic TP BID [facility] Last Admin: 01/30/18 22:05 Dose: 1 applic Verapamil HCl (Calan Sr -) 240 mg PO DAILY [facility] Last Admin: 01/30/18 10:51 Dose: 240 mg Warfarin Sodium (Coumadin -) 9 mg PO DAILY@1800 [facility] Last Admin: 01/30/18 18:05 Dose: 9 mg - Objective Vital Signs: Vital Signs Temperature 98.2 F 01/31/18 06:52 Pulse Rate 59 L 01/31/18 06:52 Respiratory Rate 20 01/31/18 06:52 Blood Pressure 160/58 L 01/31/18 06:52 O2 Sat by Pulse Oximetry (%) 97 01/30/18 21:00 Constitutional: Yes: Mild Distress Eyes: Yes: WNL HENT: Yes: WNL Neck: Yes: WNL Cardiovascular: Yes: Pulse Irregular Respiratory: Yes: Cough, On Nasal O2, Rhonchi, SOB Gastrointestinal: Yes: WNL Genitourinary: Yes: WNL Musculoskeletal: Yes: Muscle Weakness Extremities: Yes: WNL Peripheral Pulses WNL: Yes Neurological: Yes: WNL ...Motor Strength: LLE, RLE Psychiatric: Yes: WNL Labs: CBC, BMP 01/29/18 17:07 01/30/18 05:45 INR, PTT INR 1.23 (0.83-1.09) H 01/30/18 05:45 Problem List - Problems (1) COPD exacerbation Code(s): J44.1 - CHRONIC OBSTRUCTIVE PULMONARY DISEASE W (ACUTE) EXACERBATION (2) Chest pain Code(s): R07.9 - CHEST PAIN, UNSPECIFIED Qualifiers: Chest pain type: unspecified Qualified Code(s): R07.9 - Chest pain, unspecified (3) SOB (shortness of breath) Code(s): R06.02 - SHORTNESS OF BREATH (4) Abdominal pain, vomiting, and diarrhea Code(s): R10.9 - UNSPECIFIED ABDOMINAL PAIN; R11.10 - VOMITING, UNSPECIFIED; R19.7 - DIARRHEA, UNSPECIFIED (5) Acute bilateral low back pain Code(s): M54.5 - LOW BACK PAIN (6) Afib Code(s): I48.91 - UNSPECIFIED ATRIAL FIBRILLATION Qualifiers: Atrial fibrillation type: paroxysmal Qualified Code(s): I48.0 - Paroxysmal atrial fibrillation (7) Asthma exacerbation in COPD Code(s): J44.1 - CHRONIC OBSTRUCTIVE PULMONARY DISEASE W (ACUTE) EXACERBATION; J45.901 - UNSPECIFIED ASTHMA WITH (ACUTE) EXACERBATION (8) CAD (coronary artery disease) Code(s): I25.10 - ATHSCL HEART DISEASE OF [place] CORONARY ARTERY W/O ANG PCTRS (9) Cough Code(s): R05 - COUGH (10) Diabetes Code(s): E11.9 - TYPE 2 DIABETES MELLITUS WITHOUT COMPLICATIONS Qualifiers: Diabetes mellitus type: type 2 Diabetes mellitus complication status: with neurologic complications (11) Dyslipidemia Code(s): E78.5 - HYPERLIPIDEMIA, UNSPECIFIED (12) Fibromyalgia Code(s): M79.7 - FIBROMYALGIA Assessment/Plan IV CEFTRIAXONE/AZITHRO NEBS STEROIDS 02 SUPPORT LOVENOX BRIDGE TO COUMADIN
[2018-01-31] MEDS ORDERED: AZITHROMYCIN IVPB 500 MG/250 ML BAG IVPB ONE (10:12)
[2018-01-31] MEDS ORDERED: PT OWN MED DRAWER 7, Y5N ONE ×6 (10:14→21:14)
[2018-01-31] MEDS ORDERED: MAGNESIUM HYDROX 2400MG/30ML ORAL SUSPENSION 30 ML CUP PO ONE (10:16)
[2018-01-31] MEDS: RANOLAZINE E.R. 500 MG TABLET (FP) PO SCH ×2 (10:28→21:15)
[2018-01-31] MEDS: CHOLECALCIFEROL (VITAMIN D3) 1,000 UNIT TABLET (FP) PO SCH (10:28)
[2018-01-31] MEDS: VERAPAMIL HCL 240 MG E.R. TABLET (FP) PO SCH (10:29)
[2018-01-31] MEDS: DIGOXIN 0.25 MG TABLET (FP) PO SCH (10:29)
[2018-01-31] MEDS: TORSEMIDE 20 MG TABLET (FP) PO SCH (10:29)
[2018-01-31] MEDS: LORATADINE 10 MG TABLET PO SCH (10:29)
[2018-01-31] MEDS: FERROUS SO4 325 MG TABLET (FP) PO SCH (10:29)
[2018-01-31] MEDS: PANTOPRAZOLE 40 MG TABLET (FP) PO SCH (10:29)
[2018-01-31] MEDS: BUDESONIDE/FORMETEROL FUMARATE 160/4.5 mcg INHALER IH SCH ×2 (10:30→21:07)
[2018-01-31] MEDS: ENOXAPARIN NA (PORCINE) 100 MG/1 ML DISP.SYRIN SQ SCH ×2 (10:30→22:38)
[2018-01-31] MEDS: TIOTROPIUM BROMIDE 2.5 MCG (SPIRIVA) RESPIMAT INHALER IH SCH (10:30)
[2018-01-31] MEDS: CITALOPRAM HYDROBROMIDE 10 MG TABLET (FP) PO SCH (10:31)
[2018-01-31] MEDS: TRIAMCINOLONE ACET 0.1% CREAM 15 GM TUBE TP SCH ×2 (10:32→21:10)
[2018-01-31] MEDS: TOPIRAMATE 100 MG TABLET PO SCH ×2 (10:32→21:16)
--- NOTE | 2018-01-31 10:57 | PN ---
Progress Note (short form) - Note Progress Note: Still with cough and pleuritic type pain. Used her CPAP device overnight. Intake & Output 01/28/18 01/29/18 01/30/18 01/31/18 23:59 23:59 23:59 23:59 Intake Total 240 240 Output Total 900 Balance -660 240 Weight 192 lb 198 lb 6 oz 197 lb 2 oz Last Vital Signs Temp Pulse Resp BP Pulse Ox 98.2 F 58 L 20 160/58 L 97 01/31/18 06:52 01/31/18 10:29 01/31/18 06:52 01/31/18 06:52 01/30/18 21:00 Active Medications Albuterol Sulfate (Ventolin 0.083% Nebulizer Soln -) 1 amp NEB Q4H PRN PRN Reason: SHORT OF BREATH/WHEEZING Last Admin: 01/31/18 03:15 Dose: 1 amp Albuterol Sulfate (Ventolin 0.083% Nebulizer Soln -) 1 amp NEB RQID [facility] Last Admin: 01/31/18 07:45 Dose: 1 amp Brimonidine Tartrate (Alphagan 0.2% -) 1 drop OD BID [facility] Budesonide/Formoterol Fumarate (Symbicort 160/4.5mcg -) 2 puff IH BID [facility] Last Admin: 01/31/18 10:30 Dose: 2 pfu Bupropion HCl (Wellbutrin Xl -) 300 mg PO DAILY [facility] Last Admin: 01/31/18 10:31 Dose: 300 mg Carbidopa/Levodopa (Sinemet 25/100 -) 1 each PO TID [facility] Last Admin: 01/31/18 05:38 Dose: 1 each Cholecalciferol (Vitamin D3 -) 1,000 unit PO DAILY [facility] Last Admin: 01/31/18 10:28 Dose: 1,000 unit Citalopram Hydrobromide (Celexa -) 10 mg PO DAILY [facility] Last Admin: 01/31/18 10:31 Dose: 10 mg Digoxin (Lanoxin -) 0.25 mg PO DAILY [facility] Last Admin: 01/31/18 10:29 Dose: 0.25 mg Docusate Sodium (Colace -) 300 mg PO HS [facility] Last Admin: 01/30/18 21:46 Dose: 300 mg Enoxaparin Sodium (Lovenox -) 90 mg SQ BID [facility] Last Admin: 01/31/18 10:30 Dose: 90 mg Ferrous Sulfate (Feosol -) 325 mg PO DAILY [facility] Last Admin: 01/31/18 10:29 Dose: 325 mg Azithromycin (Zithromax 500mg Ivpb (Pre-Docked)) 500 mg in 250 mls @ 250 mls/ hr IVPB ONCE ONE Stop: 01/31/18 11:11 Ceftriaxone Sodium 1 gm/ (Dextrose) 50 mls @ 100 mls/hr IVPB DAILY [facility]; Protocol Insulin Aspart (Novolog Vial Sliding Scale -) 1 vial SQ TIDAC [facility]; Protocol Last Admin: 01/31/18 05:59 Dose: 6 unit Insulin Detemir (Levemir Vial) 40 units SQ AM [facility] Last Admin: 01/31/18 05:59 Dose: 40 unit Ketorolac Tromethamine (Ketorolac 0.5% Eye Drop) 1 drop OD TID [facility] Loratadine (Claritin -) 10 mg PO DAILY [facility] Last Admin: 01/31/18 10:29 Dose: 10 mg Methylprednisolone Sodium Succinate (Solu-Medrol -) 40 mg IVPUSH Q8H-IV [facility] Last Admin: 01/31/18 10:31 Dose: 40 mg Oxycodone HCl (Roxicodone -) 5 mg PO Q6H PRN PRN Reason: PAIN 7-10 Pantoprazole Sodium (Protonix -) 40 mg PO DAILY [facility] Last Admin: 01/31/18 10:29 Dose: 40 mg Polyethylene Glycol (Miralax (For Daily Use) -) 17 gm PO DAILY [facility] Pramipexole Dihydrochloride (Mirapex -) 0.5 mg PO TID [facility] Last Admin: 01/31/18 05:38 Dose: 0.5 mg Ranolazine (Ranexa -) 500 mg PO BID [facility] Last Admin: 01/31/18 10:28 Dose: 500 mg Senna (Senna -) 1 tab PO BID [facility] Tiotropium [place] (Spiriva Respimat) 2 puff IH DAILY [facility] Last Admin: 01/31/18 10:30 Dose: 2 puff Topiramate (Topamax -) 150 mg PO BID [facility] Last Admin: 01/31/18 10:32 Dose: 150 mg Torsemide (Demadex -) 40 mg PO DAILY [facility] Last Admin: 01/31/18 10:29 Dose: 40 mg Tramadol HCl (Ultram -) 50 mg PO Q8H PRN PRN Reason: PAIN LEVEL 6-10 Triamcinolone Acetonide (Aristocort 0.1% Cream -) 1 applic TP BID [facility] Last Admin: 01/31/18 10:32 Dose: 1 applic Verapamil HCl (Calan Sr -) 240 mg PO DAILY [facility] Last Admin: 01/31/18 10:29 Dose: 240 mg Warfarin Sodium (Coumadin -) 9 mg PO DAILY@1800 [facility] Last Admin: 01/30/18 18:05 Dose: 9 mg Constitutional: Yes: Awake and alert, NAD Eyes: Yes: Conjunctiva Clear, EOM Intact HENT: Yes: Atraumatic, Normocephalic Neck: Yes: Supple, Trachea Midline Cardiovascular: Yes: Pulse Irregular Respiratory: Yes: Rhonchi, Wheezes ...Clubbing: No Gastrointestinal: Yes: Normal Bowel Sounds, Soft. No: Tenderness Edema: No Neurological: Yes: Alert, Oriented Labs: Laboratory Results - last 24 hr 01/30/18 01/30/18 01/30/18 11:38 16:46 21:08 POC Glucometer 89 164 255 Digoxin 01/31/18 01/31/18 05:36 06:15 POC Glucometer 297 Digoxin 1.07 Problem List - Problems (1) COPD exacerbation Code(s): J44.1 - CHRONIC OBSTRUCTIVE PULMONARY DISEASE W (ACUTE) EXACERBATION (2) Afib Code(s): I48.91 - UNSPECIFIED ATRIAL FIBRILLATION Qualifiers: Atrial fibrillation type: paroxysmal Qualified Code(s): I48.0 - Paroxysmal atrial fibrillation (3) CAD (coronary artery disease) Code(s): I25.10 - ATHSCL HEART DISEASE OF [place] CORONARY ARTERY W/O ANG PCTRS (4) CHF (congestive heart failure) Code(s): I50.9 - HEART FAILURE, UNSPECIFIED (5) Diabetes Code(s): E11.9 - TYPE 2 DIABETES MELLITUS WITHOUT COMPLICATIONS Qualifiers: Diabetes mellitus type: type 2 Diabetes mellitus complication status: with neurologic complications (6) HTN (hypertension) Code(s): I10 - ESSENTIAL (PRIMARY) HYPERTENSION Qualifiers: Hypertension type: essential hypertension Qualified Code(s): I10 - Essential (primary) hypertension (7) Lupus Code(s): L93.0 - DISCOID LUPUS ERYTHEMATOSUS (8) FIGUEROA (obstructive sleep apnea) Code(s): G47.33 - OBSTRUCTIVE SLEEP APNEA (ADULT) (PEDIATRIC) Assessment/Plan Acute COPD Exacerbation Chronic Hypoxic Respiratory Failure Obstructive Sleep Apnea LV Diastolic Dysfunction CAD h/o MVR Atrial Fibrillation HTN DM Hyperlipidemia Lupus UTI - Noted ABX coverage - f/u cultures - IV medrol - inhaled bronchodilators - O2 to keep Spo2 >90% - CPAP at night - rate control - continue anticoagulation: Lovenox / Coumadin Dr Matias
[2018-01-31] MEDS ORDERED: DEXTROSE 5%-WATER - 50 ML IVPB ONE (11:15)
[2018-01-31] MEDS ORDERED: cefTRIAXone SODIUM 1 GM VIAL ONE (11:15)
[2018-01-31 11:16] LABS: INR 1.35 (0.83-1.09)
[2018-01-31] MEDS: SENNOSIDES 8.6MG TABLET (FP) PO SCH ×2 (11:25→21:15)
[2018-01-31] MEDS: BRIMONIDINE TARTRATE 0.2% OPHTHALMIC 5 ML BOTTLE OD SCH ×2 (11:27→21:14)
[2018-01-31] MEDS: POLYETHYLENE GLYCOL 3350 119 GM BTL PO SCH (11:33)
[2018-01-31] MEDS: CEFTRIAXONE 1 GM in DEXTROSE 5%-WATER - 50 ML IVPB SCH (13:07)
[2018-01-31] MEDS: KETOROLAC TROMETHAMINE 0.5% EYE DROP 1 DROP DROPS OD SCH ×2 (15:58→21:16)
[2018-01-31] MEDS ORDERED: INSULIN (NOVOLOG) ASPART 100 UNITS/ML 10ML VIAL ONE (18:16)
[2018-01-31] MEDS: traMADol HCL 50 MG TABLET PO PRN (18:21)
[2018-01-31] MEDS: WARFARIN NA 3 MG TABLET PO SCH (18:23)
[2018-01-31] MEDS ORDERED: guaiFENesin 200 MG/10 ML 10 ML UNIT-DOSE CUPS PO ONE (21:11)
[2018-01-31] MEDS: DOCUSATE SODIUM 100 MG CAPSULE (FP) PO SCH (21:14)
[2018-02-01] MEDS: methylPREDNISolone NA SUCC 40 MG/1 ML VIAL IVPUSH SCH ×3 (02:18→18:21)
[2018-02-01] MEDS: oxyCODONE HCL 5 MG TABLET PO PRN (03:30)
[2018-02-01] MEDS: guaiFENesin 200 MG/10 ML 10 ML UNIT-DOSE CUPS PO PRN (04:56)
[2018-02-01] MEDS: CARBIDOPA/LEVODOPA 25/100 TABLET (FP) PO SCH ×3 (06:02→21:14)
[2018-02-01] MEDS: KETOROLAC TROMETHAMINE 0.5% EYE DROP 1 DROP DROPS OD SCH ×3 (06:02→21:18)
[2018-02-01] MEDS: PRAMIPEXOLE DIHYDROCHLORIDE 0.5 MG TABLET PO SCH ×3 (06:02→21:13)
[2018-02-01] MEDS: INSULIN SLIDING SCALE (NOVOLOG) 1 VIAL SQ SCH ×3 (06:54→18:23)
[2018-02-01] MEDS: INSULIN (LEVEMIR) 100 UNITS/ML UNITS SQ SCH (06:54)
[2018-02-01] MEDS: ALBUTEROL SO4 0.083% IH SOL 2.5 MG/3 ML VIAL.NEB. NEB SCH ×4 (07:15→20:43)
[2018-02-01 07:50] LABS: HEMATOCRIT 37.8 % (32.4-45.2); HEMOGLOBIN 11.9 GM/dL (10.7-15.3); MCHC 31.5 g/dl (32.0-36.0); MEAN CELL VOLUME 85.8 fl (80-96); MEAN PLT VOLUME 10.1 fl (7.5-11.1); PLATELET COUNT 260 K/MM3 (134-434); RBC 4.41 M/mm3 (3.60-5.2); WHITE BLOOD COUNT 15.7 K/mm3 (4.0-10.0)
[2018-02-01 08:10] LABS: ANION GAP 8 MMOL/L (8-16); BLOOD UREA NITROGEN 29 mg/dL (7-18); CALCIUM 8.7 mg/dL (8.5-10.1); CHLORIDE 103 mmol/L (98-107); CO2 26 mmol/L (21-32); CREATININE 1.2 mg/dL (0.55-1.3); GLUCOSE,RANDOM 194 mg/dL (74-106); MAGNESIUM 2.9 mg/dL (1.8-2.4); PHOSPHOROUS 3.3 mg/dL (2.5-4.9); POTASSIUM 4.2 mmol/L (3.5-5.1); SODIUM 138 mmol/L (136-145)
[2018-02-01 08:23] LABS: INR 1.66 (0.83-1.09); PROTHROMBIN TIME (PATIENT) 19.7 SEC (9.7-13.0)
--- NOTE | 2018-02-01 09:57 | PN ---
Progress Note, Physician Chief Complaint: AWAKE ALERT STILL COUGHING - Current Medication List Current Medications: Active Medications Albuterol Sulfate (Ventolin 0.083% Nebulizer Soln -) 1 amp NEB Q4H PRN PRN Reason: SHORT OF BREATH/WHEEZING Last Admin: 01/31/18 23:22 Dose: 1 amp Albuterol Sulfate (Ventolin 0.083% Nebulizer Soln -) 1 amp NEB RQID [facility] Last Admin: 02/01/18 07:15 Dose: 1 amp Azithromycin (Zithromax -) 250 mg PO DAILY [facility] Brimonidine Tartrate (Alphagan 0.2% -) 1 drop OD BID [facility] Last Admin: 01/31/18 21:14 Dose: 1 drop Budesonide/Formoterol Fumarate (Symbicort 160/4.5mcg -) 2 puff IH BID [facility] Last Admin: 01/31/18 21:07 Dose: 2 puff Bupropion HCl (Wellbutrin Xl -) 300 mg PO DAILY [facility] Last Admin: 01/31/18 10:31 Dose: 300 mg Carbidopa/Levodopa (Sinemet 25/100 -) 1 each PO TID [facility] Last Admin: 02/01/18 06:02 Dose: 1 each Cholecalciferol (Vitamin D3 -) 1,000 unit PO DAILY [facility] Last Admin: 01/31/18 10:28 Dose: 1,000 unit Citalopram Hydrobromide (Celexa -) 10 mg PO DAILY [facility] Last Admin: 01/31/18 10:31 Dose: 10 mg Digoxin (Lanoxin -) 0.25 mg PO DAILY [facility] Last Admin: 01/31/18 10:29 Dose: 0.25 mg Docusate Sodium (Colace -) 300 mg PO HS [facility] Last Admin: 01/31/18 21:14 Dose: 300 mg Enoxaparin Sodium (Lovenox -) 90 mg SQ BID [facility] Last Admin: 01/31/18 22:38 Dose: 90 mg Ferrous Sulfate (Feosol -) 325 mg PO DAILY [facility] Last Admin: 01/31/18 10:29 Dose: 325 mg Guaifenesin (Robitussin -) 10 ml PO Q6H PRN PRN Reason: COUGH Last Admin: 02/01/18 04:56 Dose: 10 ml Guaifenesin/Codeine Phosphate (Robitussin Ac -) 5 ml PO TID PRN PRN Reason: COUGH Ceftriaxone Sodium 1 gm/ (Dextrose) 50 mls @ 100 mls/hr IVPB DAILY [facility]; Protocol Last Admin: 01/31/18 13:07 Dose: 100 mls/hr Insulin Aspart (Novolog Vial Sliding Scale -) 1 vial SQ TIDAC [facility]; Protocol Last Admin: 02/01/18 06:54 Dose: 4 unit Insulin Detemir (Levemir Vial) 40 units SQ AM [facility] Last Admin: 02/01/18 06:54 Dose: 40 unit Ketorolac Tromethamine (Ketorolac 0.5% Eye Drop) 1 drop OD TID [facility] Last Admin: 02/01/18 06:02 Dose: 1 drop Loratadine (Claritin -) 10 mg PO DAILY [facility] Last Admin: 01/31/18 10:29 Dose: 10 mg Methylprednisolone Sodium Succinate (Solu-Medrol -) 40 mg IVPUSH Q8H-IV [facility] Last Admin: 02/01/18 02:18 Dose: 40 mg Oxycodone HCl (Roxicodone -) 5 mg PO Q6H PRN PRN Reason: PAIN 7-10 Last Admin: 02/01/18 03:30 Dose: 5 mg Pantoprazole Sodium (Protonix -) 40 mg PO DAILY [facility] Last Admin: 01/31/18 10:29 Dose: 40 mg Polyethylene Glycol (Miralax (For Daily Use) -) 17 gm PO DAILY [facility] Last Admin: 01/31/18 11:33 Dose: 17 gm Pramipexole Dihydrochloride (Mirapex -) 0.5 mg PO TID [facility] Last Admin: 02/01/18 06:02 Dose: 0.5 mg Ranolazine (Ranexa -) 500 mg PO BID [facility] Last Admin: 01/31/18 21:15 Dose: 500 mg Senna (Senna -) 1 tab PO BID [facility] Last Admin: 01/31/18 21:15 Dose: 1 tab Tiotropium [place] (Spiriva Respimat) 2 puff IH DAILY [facility] Last Admin: 01/31/18 10:30 Dose: 2 puff Topiramate (Topamax -) 150 mg PO BID [facility] Last Admin: 01/31/18 21:16 Dose: 150 mg Torsemide (Demadex -) 40 mg PO DAILY [facility] Last Admin: 01/31/18 10:29 Dose: 40 mg Tramadol HCl (Ultram -) 50 mg PO Q8H PRN PRN Reason: PAIN LEVEL 6-10 Last Admin: 01/31/18 18:21 Dose: 50 mg Triamcinolone Acetonide (Aristocort 0.1% Cream -) 1 applic TP BID [facility] Last Admin: 01/31/18 21:10 Dose: 1 applic Verapamil HCl (Calan Sr -) 240 mg PO DAILY [facility] Last Admin: 01/31/18 10:29 Dose: 240 mg Warfarin Sodium (Coumadin -) 9 mg PO DAILY@1800 [facility] Last Admin: 01/31/18 18:23 Dose: 9 mg - Objective Vital Signs: Vital Signs Temperature 97.4 F L 02/01/18 07:00 Pulse Rate 54 L 02/01/18 07:00 Respiratory Rate 20 02/01/18 07:00 Blood Pressure 154/56 L 02/01/18 07:00 O2 Sat by Pulse Oximetry (%) 97 01/31/18 21:00 Constitutional: Yes: Mild Distress Eyes: Yes: WNL HENT: Yes: WNL Neck: Yes: WNL Cardiovascular: Yes: WNL Respiratory: Yes: Cough, On Nasal O2, Rhonchi Gastrointestinal: Yes: WNL, Soft Genitourinary: Yes: WNL Musculoskeletal: Yes: WNL Extremities: Yes: WNL Edema: No Peripheral Pulses WNL: Yes Integumentary: Yes: WNL Wound/Incision: Yes: Clean/Dry Neurological: Yes: WNL ...Motor Strength: WNL Psychiatric: Yes: WNL Labs: CBC, BMP 02/01/18 06:45 02/01/18 06:45 INR, PTT INR 1.66 (0.83-1.09) H 02/01/18 06:45 Problem List - Problems (1) COPD exacerbation Code(s): J44.1 - CHRONIC OBSTRUCTIVE PULMONARY DISEASE W (ACUTE) EXACERBATION (2) Chest pain Code(s): R07.9 - CHEST PAIN, UNSPECIFIED Qualifiers: Chest pain type: unspecified Qualified Code(s): R07.9 - Chest pain, unspecified (3) SOB (shortness of breath) Code(s): R06.02 - SHORTNESS OF BREATH (4) Abdominal pain, vomiting, and diarrhea Code(s): R10.9 - UNSPECIFIED ABDOMINAL PAIN; R11.10 - VOMITING, UNSPECIFIED; R19.7 - DIARRHEA, UNSPECIFIED (5) Acute bilateral low back pain Code(s): M54.5 - LOW BACK PAIN (6) Afib Code(s): I48.91 - UNSPECIFIED ATRIAL FIBRILLATION Qualifiers: Atrial fibrillation type: paroxysmal Qualified Code(s): I48.0 - Paroxysmal atrial fibrillation (7) Asthma exacerbation in COPD Code(s): J44.1 - CHRONIC OBSTRUCTIVE PULMONARY DISEASE W (ACUTE) EXACERBATION; J45.901 - UNSPECIFIED ASTHMA WITH (ACUTE) EXACERBATION (8) CAD (coronary artery disease) Code(s): I25.10 - ATHSCL HEART DISEASE OF [place] CORONARY ARTERY W/O ANG PCTRS (9) Cough Code(s): R05 - COUGH (10) Diabetes Code(s): E11.9 - TYPE 2 DIABETES MELLITUS WITHOUT COMPLICATIONS Qualifiers: Diabetes mellitus type: type 2 Diabetes mellitus complication status: with neurologic complications (11) Dyslipidemia Code(s): E78.5 - HYPERLIPIDEMIA, UNSPECIFIED (12) Fibromyalgia Code(s): M79.7 - FIBROMYALGIA Assessment/Plan IV CEFTRIAXONE/AZITHRO PO NEBS STEROIDS 02 SUPPORT LOVENOX BRIDGE TO COUMADIN OOB TO CHAIR
[2018-02-01] MEDS ORDERED: PT OWN MED DRAWER 7, Y5N ONE ×3 (10:13→21:02)
[2018-02-01] MEDS ORDERED: DEXTROSE 5%-WATER - 50 ML IVPB ONE (10:14)
[2018-02-01] MEDS ORDERED: cefTRIAXone SODIUM 1 GM VIAL ONE (10:14)
[2018-02-01] MEDS: AZITHROMYCIN 250 MG TABLET PO SCH (10:18)
[2018-02-01] MEDS: DIGOXIN 0.25 MG TABLET (FP) PO SCH (10:18)
[2018-02-01] MEDS: TORSEMIDE 20 MG TABLET (FP) PO SCH (10:18)
[2018-02-01] MEDS: CHOLECALCIFEROL (VITAMIN D3) 1,000 UNIT TABLET (FP) PO SCH (10:19)
[2018-02-01] MEDS: VERAPAMIL HCL 240 MG E.R. TABLET (FP) PO SCH (10:19)
[2018-02-01] MEDS: CEFTRIAXONE 1 GM in DEXTROSE 5%-WATER - 50 ML IVPB SCH (10:19)
[2018-02-01] MEDS: LORATADINE 10 MG TABLET PO SCH (10:19)
[2018-02-01] MEDS: PANTOPRAZOLE 40 MG TABLET (FP) PO SCH (10:19)
[2018-02-01] MEDS: SENNOSIDES 8.6MG TABLET (FP) PO SCH ×2 (10:19→21:13)
[2018-02-01] MEDS: FERROUS SO4 325 MG TABLET (FP) PO SCH (10:19)
[2018-02-01] MEDS: BUDESONIDE/FORMETEROL FUMARATE 160/4.5 mcg INHALER IH SCH ×2 (10:20→21:37)
[2018-02-01] MEDS: ENOXAPARIN NA (PORCINE) 100 MG/1 ML DISP.SYRIN SQ SCH ×2 (10:20→21:14)
[2018-02-01] MEDS: TIOTROPIUM BROMIDE 2.5 MCG (SPIRIVA) RESPIMAT INHALER IH SCH (10:20)
[2018-02-01] MEDS: TRIAMCINOLONE ACET 0.1% CREAM 15 GM TUBE TP SCH ×2 (10:21→21:18)
[2018-02-01] MEDS: BRIMONIDINE TARTRATE 0.2% OPHTHALMIC 5 ML BOTTLE OD SCH ×2 (10:21→21:18)
[2018-02-01] MEDS: CITALOPRAM HYDROBROMIDE 10 MG TABLET (FP) PO SCH (10:23)
[2018-02-01] MEDS: RANOLAZINE E.R. 500 MG TABLET (FP) PO SCH ×2 (10:53→21:13)
[2018-02-01] MEDS: TOPIRAMATE 100 MG TABLET PO SCH ×2 (10:53→21:13)
[2018-02-01] MEDS: POLYETHYLENE GLYCOL 3350 119 GM BTL PO SCH (10:58)
--- NOTE | 2018-02-01 14:11 | PN ---
Progress Note, Physician History of Present Illness: pulmonary alert,still congested,dyspneic,+ cough - Current Medication List Current Medications: Active Medications Albuterol Sulfate (Ventolin 0.083% Nebulizer Soln -) 1 amp NEB Q4H PRN PRN Reason: SHORT OF BREATH/WHEEZING Last Admin: 01/31/18 23:22 Dose: 1 amp Albuterol Sulfate (Ventolin 0.083% Nebulizer Soln -) 1 amp NEB RQID [facility] Last Admin: 02/01/18 11:15 Dose: 1 amp Azithromycin (Zithromax -) 250 mg PO DAILY [facility] Last Admin: 02/01/18 10:18 Dose: 250 mg Brimonidine Tartrate (Alphagan 0.2% -) 1 drop OD BID [facility] Last Admin: 02/01/18 10:21 Dose: 1 drop Budesonide/Formoterol Fumarate (Symbicort 160/4.5mcg -) 2 puff IH BID [facility] Last Admin: 02/01/18 10:20 Dose: 2 puff Bupropion HCl (Wellbutrin Xl -) 300 mg PO DAILY [facility] Last Admin: 02/01/18 10:52 Dose: 300 mg Carbidopa/Levodopa (Sinemet 25/100 -) 1 each PO TID [facility] Last Admin: 02/01/18 06:02 Dose: 1 each Cholecalciferol (Vitamin D3 -) 1,000 unit PO DAILY [facility] Last Admin: 02/01/18 10:19 Dose: 1,000 unit Citalopram Hydrobromide (Celexa -) 10 mg PO DAILY [facility] Last Admin: 02/01/18 10:23 Dose: 10 mg Digoxin (Lanoxin -) 0.25 mg PO DAILY [facility] Last Admin: 02/01/18 10:18 Dose: 0.25 mg Docusate Sodium (Colace -) 300 mg PO HS [facility] Last Admin: 01/31/18 21:14 Dose: 300 mg Enoxaparin Sodium (Lovenox -) 90 mg SQ BID [facility] Last Admin: 02/01/18 10:20 Dose: 90 mg Ferrous Sulfate (Feosol -) 325 mg PO DAILY [facility] Last Admin: 02/01/18 10:19 Dose: 325 mg Guaifenesin (Robitussin -) 10 ml PO Q6H PRN PRN Reason: COUGH Last Admin: 02/01/18 04:56 Dose: 10 ml Guaifenesin/Codeine Phosphate (Robitussin Ac -) 5 ml PO TID PRN PRN Reason: COUGH Ceftriaxone Sodium 1 gm/ (Dextrose) 50 mls @ 100 mls/hr IVPB DAILY [facility]; Protocol Last Admin: 02/01/18 10:19 Dose: 100 mls/hr Insulin Aspart (Novolog Vial Sliding Scale -) 1 vial SQ TIDAC [facility]; Protocol Last Admin: 02/01/18 12:29 Dose: 2 unit Insulin Detemir (Levemir Vial) 40 units SQ AM [facility] Last Admin: 02/01/18 06:54 Dose: 40 unit Ketorolac Tromethamine (Ketorolac 0.5% Eye Drop) 1 drop OD TID [facility] Last Admin: 02/01/18 06:02 Dose: 1 drop Loratadine (Claritin -) 10 mg PO DAILY [facility] Last Admin: 02/01/18 10:19 Dose: 10 mg Methylprednisolone Sodium Succinate (Solu-Medrol -) 40 mg IVPUSH Q8H-IV [facility] Last Admin: 02/01/18 10:19 Dose: 40 mg Oxycodone HCl (Roxicodone -) 5 mg PO Q6H PRN PRN Reason: PAIN 7-10 Last Admin: 02/01/18 03:30 Dose: 5 mg Pantoprazole Sodium (Protonix -) 40 mg PO DAILY [facility] Last Admin: 02/01/18 10:19 Dose: 40 mg Polyethylene Glycol (Miralax (For Daily Use) -) 17 gm PO DAILY [facility] Last Admin: 02/01/18 10:58 Dose: 17 gm Pramipexole Dihydrochloride (Mirapex -) 0.5 mg PO TID [facility] Last Admin: 02/01/18 06:02 Dose: 0.5 mg Ranolazine (Ranexa -) 500 mg PO BID [facility] Last Admin: 02/01/18 10:53 Dose: 500 mg Senna (Senna -) 1 tab PO BID [facility] Last Admin: 02/01/18 10:19 Dose: 1 tab Tiotropium [place] (Spiriva Respimat) 2 puff IH DAILY [facility] Last Admin: 02/01/18 10:20 Dose: 2 puff Topiramate (Topamax -) 150 mg PO BID [facility] Last Admin: 02/01/18 10:53 Dose: 150 mg Torsemide (Demadex -) 40 mg PO DAILY [facility] Last Admin: 02/01/18 10:18 Dose: 40 mg Tramadol HCl (Ultram -) 50 mg PO Q8H PRN PRN Reason: PAIN LEVEL 6-10 Last Admin: 01/31/18 18:21 Dose: 50 mg Triamcinolone Acetonide (Aristocort 0.1% Cream -) 1 applic TP BID [facility] Last Admin: 02/01/18 10:21 Dose: 1 applic Verapamil HCl (Calan Sr -) 240 mg PO DAILY [facility] Last Admin: 02/01/18 10:19 Dose: 240 mg Warfarin Sodium (Coumadin -) 9 mg PO DAILY@1800 [facility] Last Admin: 01/31/18 18:23 Dose: 9 mg - Objective Vital Signs: Vital Signs Temperature 97.4 F L 02/01/18 07:00 Pulse Rate 58 L 02/01/18 10:18 Respiratory Rate 20 02/01/18 07:00 Blood Pressure 154/56 L 02/01/18 07:00 O2 Sat by Pulse Oximetry (%) 97 01/31/18 21:00 Constitutional: Yes: Well Nourished, Calm Eyes: Yes: WNL HENT: Yes: WNL Neck: Yes: WNL Cardiovascular: Yes: Pulse Irregular, S1, S2 Respiratory: Yes: Wheezes (bilateral wheezes) Gastrointestinal: Yes: Normal Bowel Sounds, Soft Extremities: Yes: WNL Edema: No Labs: CBC, BMP 02/01/18 06:45 02/01/18 06:45 INR, PTT INR 1.66 (0.83-1.09) H 02/01/18 06:45 - ....Imaging Chest X-ray: Report Reviewed, Image Reviewed Assessment/Plan Problem List - Problems (1) COPD exacerbation Code(s): J44.1 - CHRONIC OBSTRUCTIVE PULMONARY DISEASE W (ACUTE) EXACERBATION (2) Afib Code(s): I48.91 - UNSPECIFIED ATRIAL FIBRILLATION Qualifiers: Atrial fibrillation type: paroxysmal Qualified Code(s): I48.0 - Paroxysmal atrial fibrillation (3) CAD (coronary artery disease) Code(s): I25.10 - ATHSCL HEART DISEASE OF [place] CORONARY ARTERY W/O ANG PCTRS (4) CHF (congestive heart failure) Code(s): I50.9 - HEART FAILURE, UNSPECIFIED (5) Diabetes Code(s): E11.9 - TYPE 2 DIABETES MELLITUS WITHOUT COMPLICATIONS Qualifiers: Diabetes mellitus type: type 2 Diabetes mellitus complication status: with neurologic complications (6) HTN (hypertension) Code(s): I10 - ESSENTIAL (PRIMARY) HYPERTENSION Qualifiers: Hypertension type: essential hypertension Qualified Code(s): I10 - Essential (primary) hypertension (7) Lupus Code(s): L93.0 - DISCOID LUPUS ERYTHEMATOSUS (8) FIGUEROA (obstructive sleep apnea) Code(s): G47.33 - OBSTRUCTIVE SLEEP APNEA (ADULT) (PEDIATRIC) Assessment/Plan Acute COPD Exacerbation Chronic Hypoxic Respiratory Failure Obstructive Sleep Apnea LV Diastolic Dysfunction CAD h/o MVR Atrial Fibrillation HTN DM Hyperlipidemia Lupus UTI - antibiotics for UTI - IV medrol same dose - inhaled bronchodilators - O2 to keep Spo2 >90% - CPAP at night - rate control - continue anticoagulation DR IVERSON
[2018-02-01] MEDS: WARFARIN NA 3 MG TABLET PO SCH (18:19)
[2018-02-01] MEDS: DOCUSATE SODIUM 100 MG CAPSULE (FP) PO SCH (21:13)
[2018-02-01] MEDS: guaiFENesin/CODEINE 5 ML UNIT-DOSE CUPS PO PRN (21:14)
[2018-02-01] MEDS: traMADol HCL 50 MG TABLET PO PRN (23:50)
[2018-02-02] MEDS: methylPREDNISolone NA SUCC 40 MG/1 ML VIAL IVPUSH SCH ×3 (02:33→17:41)
[2018-02-02] MEDS: ALBUTEROL SO4 0.083% IH SOL 2.5 MG/3 ML VIAL.NEB. NEB PRN (03:10)
[2018-02-02] MEDS: guaiFENesin 200 MG/10 ML 10 ML UNIT-DOSE CUPS PO PRN ×2 (03:47→10:44)
[2018-02-02] MEDS: CARBIDOPA/LEVODOPA 25/100 TABLET (FP) PO SCH ×3 (05:47→21:54)
[2018-02-02] MEDS: PRAMIPEXOLE DIHYDROCHLORIDE 0.5 MG TABLET PO SCH ×3 (05:47→21:54)
[2018-02-02] MEDS: INSULIN SLIDING SCALE (NOVOLOG) 1 VIAL SQ SCH ×3 (06:13→17:45)
[2018-02-02] MEDS: KETOROLAC TROMETHAMINE 0.5% EYE DROP 1 DROP DROPS OD SCH ×3 (06:13→21:52)
[2018-02-02] MEDS: INSULIN (LEVEMIR) 100 UNITS/ML UNITS SQ SCH (06:15)
[2018-02-02] MEDS: guaiFENesin/CODEINE 5 ML UNIT-DOSE CUPS PO PRN ×2 (06:17→14:40)
[2018-02-02] MEDS: ALBUTEROL SO4 0.083% IH SOL 2.5 MG/3 ML VIAL.NEB. NEB SCH ×4 (07:25→20:10)
[2018-02-02 08:00] LABS: INR 2.13 (0.83-1.09); PROTHROMBIN TIME (PATIENT) 25.3 SEC (9.7-13.0)
[2018-02-02] MEDS ORDERED: PT OWN MED DRAWER 7, Y5N ONE ×2 (10:28→21:07)
[2018-02-02] MEDS ORDERED: DEXTROSE 5%-WATER - 50 ML IVPB ONE (10:29)
[2018-02-02] MEDS ORDERED: cefTRIAXone SODIUM 1 GM VIAL ONE (10:29)
[2018-02-02] MEDS: BUDESONIDE/FORMETEROL FUMARATE 160/4.5 mcg INHALER IH SCH ×2 (10:41→21:55)
[2018-02-02] MEDS: TIOTROPIUM BROMIDE 2.5 MCG (SPIRIVA) RESPIMAT INHALER IH SCH (10:42)
[2018-02-02] MEDS: TRIAMCINOLONE ACET 0.1% CREAM 15 GM TUBE TP SCH ×2 (10:43→21:51)
[2018-02-02] MEDS: CHOLECALCIFEROL (VITAMIN D3) 1,000 UNIT TABLET (FP) PO SCH (10:44)
[2018-02-02] MEDS: RANOLAZINE E.R. 500 MG TABLET (FP) PO SCH ×2 (10:44→21:54)
[2018-02-02] MEDS: BRIMONIDINE TARTRATE 0.2% OPHTHALMIC 5 ML BOTTLE OD SCH ×2 (10:44→21:51)
[2018-02-02] MEDS: TORSEMIDE 20 MG TABLET (FP) PO SCH (10:44)
[2018-02-02] MEDS: VERAPAMIL HCL 240 MG E.R. TABLET (FP) PO SCH (10:44)
[2018-02-02] MEDS: POLYETHYLENE GLYCOL 3350 119 GM BTL PO SCH (10:45)
[2018-02-02] MEDS: oxyCODONE HCL 5 MG TABLET PO PRN ×2 (10:45→17:45)
[2018-02-02] MEDS: AZITHROMYCIN 250 MG TABLET PO SCH (10:45)
[2018-02-02] MEDS: FERROUS SO4 325 MG TABLET (FP) PO SCH (10:45)
[2018-02-02] MEDS: PANTOPRAZOLE 40 MG TABLET (FP) PO SCH (10:45)
[2018-02-02] MEDS: DIGOXIN 0.25 MG TABLET (FP) PO SCH (10:45)
[2018-02-02] MEDS: SENNOSIDES 8.6MG TABLET (FP) PO SCH ×2 (10:46→21:54)
[2018-02-02] MEDS: LORATADINE 10 MG TABLET PO SCH (10:46)
[2018-02-02] MEDS: CITALOPRAM HYDROBROMIDE 10 MG TABLET (FP) PO SCH (10:46)
[2018-02-02] MEDS: CEFTRIAXONE 1 GM in DEXTROSE 5%-WATER - 50 ML IVPB SCH (10:46)
[2018-02-02] MEDS: TOPIRAMATE 100 MG TABLET PO SCH ×2 (10:47→21:55)
--- NOTE | 2018-02-02 10:52 | PN ---
Progress Note, Physician Chief Complaint: PREVIOUS NOTES AND EVENTS REVIEWED ALERT AND AWAKE, NAD C/O "MUSCULAR" PAIN TO RLQ WHICH STARTED THIS MORNING STATES COUGH IS ABOUT THE SAME AND STILL COMPLAIN OF PAIN WITH COUGHING - Current Medication List Current Medications: Active Medications Albuterol Sulfate (Ventolin 0.083% Nebulizer Soln -) 1 amp NEB Q4H PRN PRN Reason: SHORT OF BREATH/WHEEZING Last Admin: 02/02/18 03:10 Dose: 1 amp Albuterol Sulfate (Ventolin 0.083% Nebulizer Soln -) 1 amp NEB RQID [facility] Last Admin: 02/02/18 07:25 Dose: 1 amp Azithromycin (Zithromax -) 250 mg PO DAILY [facility] Last Admin: 02/01/18 10:18 Dose: 250 mg Brimonidine Tartrate (Alphagan 0.2% -) 1 drop OD BID [facility] Last Admin: 02/01/18 21:18 Dose: 1 drop Budesonide/Formoterol Fumarate (Symbicort 160/4.5mcg -) 2 puff IH BID [facility] Last Admin: 02/01/18 21:37 Dose: 2 puff Bupropion HCl (Wellbutrin Xl -) 300 mg PO DAILY [facility] Last Admin: 02/01/18 10:52 Dose: 300 mg Carbidopa/Levodopa (Sinemet 25/100 -) 1 each PO TID [facility] Last Admin: 02/02/18 05:47 Dose: 1 each Cholecalciferol (Vitamin D3 -) 1,000 unit PO DAILY [facility] Last Admin: 02/01/18 10:19 Dose: 1,000 unit Citalopram Hydrobromide (Celexa -) 10 mg PO DAILY [facility] Last Admin: 02/01/18 10:23 Dose: 10 mg Digoxin (Lanoxin -) 0.25 mg PO DAILY [facility] Last Admin: 02/01/18 10:18 Dose: 0.25 mg Docusate Sodium (Colace -) 300 mg PO HS [facility] Last Admin: 02/01/18 21:13 Dose: 300 mg Enoxaparin Sodium (Lovenox -) 90 mg SQ BID [facility] Last Admin: 02/01/18 21:14 Dose: 90 mg Ferrous Sulfate (Feosol -) 325 mg PO DAILY [facility] Last Admin: 02/01/18 10:19 Dose: 325 mg Guaifenesin (Robitussin -) 10 ml PO Q6H PRN PRN Reason: COUGH Last Admin: 02/02/18 03:47 Dose: 10 ml Guaifenesin/Codeine Phosphate (Robitussin Ac -) 5 ml PO TID PRN PRN Reason: COUGH Last Admin: 02/02/18 06:17 Dose: 5 ml Ceftriaxone Sodium 1 gm/ (Dextrose) 50 mls @ 100 mls/hr IVPB DAILY [facility]; Protocol Last Admin: 02/01/18 10:19 Dose: 100 mls/hr Insulin Aspart (Novolog Vial Sliding Scale -) 1 vial SQ TIDAC [facility]; Protocol Last Admin: 02/02/18 06:13 Dose: 2 unit Insulin Detemir (Levemir Vial) 40 units SQ AM [facility] Last Admin: 02/02/18 06:15 Dose: 40 unit Ketorolac Tromethamine (Ketorolac 0.5% Eye Drop) 1 drop OD TID [facility] Last Admin: 02/02/18 06:13 Dose: 1 drop Loratadine (Claritin -) 10 mg PO DAILY [facility] Last Admin: 02/01/18 10:19 Dose: 10 mg Methylprednisolone Sodium Succinate (Solu-Medrol -) 40 mg IVPUSH Q8H-IV [facility] Last Admin: 02/02/18 02:33 Dose: 40 mg Oxycodone HCl (Roxicodone -) 5 mg PO Q6H PRN PRN Reason: PAIN 7-10 Last Admin: 02/01/18 03:30 Dose: 5 mg Pantoprazole Sodium (Protonix -) 40 mg PO DAILY [facility] Last Admin: 02/01/18 10:19 Dose: 40 mg Polyethylene Glycol (Miralax (For Daily Use) -) 17 gm PO DAILY [facility] Last Admin: 02/01/18 10:58 Dose: 17 gm Pramipexole Dihydrochloride (Mirapex -) 0.5 mg PO TID [facility] Last Admin: 02/02/18 05:47 Dose: 0.5 mg Ranolazine (Ranexa -) 500 mg PO BID [facility] Last Admin: 02/01/18 21:13 Dose: 500 mg Senna (Senna -) 1 tab PO BID [facility] Last Admin: 02/01/18 21:13 Dose: 1 tab Tiotropium [place] (Spiriva Respimat) 2 puff IH DAILY [facility] Last Admin: 02/01/18 10:20 Dose: 2 puff Topiramate (Topamax -) 150 mg PO BID [facility] Last Admin: 02/01/18 21:13 Dose: 150 mg Torsemide (Demadex -) 40 mg PO DAILY [facility] Last Admin: 02/01/18 10:18 Dose: 40 mg Tramadol HCl (Ultram -) 50 mg PO Q8H PRN PRN Reason: PAIN LEVEL 6-10 Last Admin: 02/01/18 23:50 Dose: 50 mg Triamcinolone Acetonide (Aristocort 0.1% Cream -) 1 applic TP BID [facility] Last Admin: 02/01/18 21:18 Dose: 1 applic Verapamil HCl (Calan Sr -) 240 mg PO DAILY [facility] Last Admin: 02/01/18 10:19 Dose: 240 mg Warfarin Sodium (Coumadin -) 9 mg PO DAILY@1800 [facility] Last Admin: 02/01/18 18:19 Dose: 9 mg - Objective Vital Signs: Vital Signs Temperature 98.1 F 02/02/18 06:00 Pulse Rate 58 L 02/02/18 06:00 Respiratory Rate 18 02/02/18 06:00 Blood Pressure 149/69 02/02/18 06:00 O2 Sat by Pulse Oximetry (%) 97 02/01/18 21:00 Constitutional: Yes: Well Nourished, Mild Distress Eyes: Yes: WNL HENT: Yes: WNL Cardiovascular: Yes: WNL, Regular Rate and Rhythm Respiratory: Yes: Cough, On Nasal O2, Wheezes Gastrointestinal: Yes: Soft, Abdomen, Obese Musculoskeletal: Yes: Muscle Weakness Extremities: Yes: WNL Edema: No Integumentary: Yes: Other (ECCHYMOSIS TO ABDOMEN) Neurological: Yes: Alert, Oriented, Paresthesia, Pre-Existing Deficit Labs: CBC, BMP 02/01/18 06:45 02/01/18 06:45 INR, PTT INR 2.13 (0.83-1.09) H 02/02/18 06:30 Problem List - Problems (1) COPD exacerbation Code(s): J44.1 - CHRONIC OBSTRUCTIVE PULMONARY DISEASE W (ACUTE) EXACERBATION (2) Chest pain Code(s): R07.9 - CHEST PAIN, UNSPECIFIED Qualifiers: Chest pain type: unspecified Qualified Code(s): R07.9 - Chest pain, unspecified (3) SOB (shortness of breath) Code(s): R06.02 - SHORTNESS OF BREATH (4) Abdominal pain, vomiting, and diarrhea Code(s): R10.9 - UNSPECIFIED ABDOMINAL PAIN; R11.10 - VOMITING, UNSPECIFIED; R19.7 - DIARRHEA, UNSPECIFIED (5) Acute bilateral low back pain Code(s): M54.5 - LOW BACK PAIN (6) Afib Code(s): I48.91 - UNSPECIFIED ATRIAL FIBRILLATION Qualifiers: Atrial fibrillation type: paroxysmal Qualified Code(s): I48.0 - Paroxysmal atrial fibrillation (7) Asthma exacerbation in COPD Code(s): J44.1 - CHRONIC OBSTRUCTIVE PULMONARY DISEASE W (ACUTE) EXACERBATION; J45.901 - UNSPECIFIED ASTHMA WITH (ACUTE) EXACERBATION (8) CAD (coronary artery disease) Code(s): I25.10 - ATHSCL HEART DISEASE OF [place] CORONARY ARTERY W/O ANG PCTRS (9) Cough Code(s): R05 - COUGH (10) Diabetes Code(s): E11.9 - TYPE 2 DIABETES MELLITUS WITHOUT COMPLICATIONS Qualifiers: Diabetes mellitus type: type 2 Diabetes mellitus complication status: with neurologic complications (11) Dyslipidemia Code(s): E78.5 - HYPERLIPIDEMIA, UNSPECIFIED (12) Fibromyalgia Code(s): M79.7 - FIBROMYALGIA Assessment/Plan IV CEFTRIAXONE/AZITHRO PO, ID CONSULT NEEDED NEBS STEROIDS 02 SUPPORT LOVENOX BRIDGE TO COUMADIN, SERIAL INR UNTIL LEVEL THERAPEUTIC BGM, ISS, ACHS OOB TO CHAIR
[2018-02-02] MEDS: ENOXAPARIN NA (PORCINE) 100 MG/1 ML DISP.SYRIN SQ SCH ×2 (11:05→21:53)
--- NOTE | 2018-02-02 11:39 | PN ---
Progress Note, Physician History of Present Illness: PULMONARY ALERT,STILL DYSPNEIC,+ COUGH,+ WHEEZES - Current Medication List Current Medications: Active Medications Albuterol Sulfate (Ventolin 0.083% Nebulizer Soln -) 1 amp NEB Q4H PRN PRN Reason: SHORT OF BREATH/WHEEZING Last Admin: 02/02/18 03:10 Dose: 1 amp Albuterol Sulfate (Ventolin 0.083% Nebulizer Soln -) 1 amp NEB RQID [facility] Last Admin: 02/02/18 07:25 Dose: 1 amp Azithromycin (Zithromax -) 250 mg PO DAILY [facility] Last Admin: 02/02/18 10:45 Dose: 250 mg Brimonidine Tartrate (Alphagan 0.2% -) 1 drop OD BID [facility] Last Admin: 02/02/18 10:44 Dose: 1 drop Budesonide/Formoterol Fumarate (Symbicort 160/4.5mcg -) 2 puff IH BID [facility] Last Admin: 02/02/18 10:41 Dose: 2 puff Bupropion HCl (Wellbutrin Xl -) 300 mg PO DAILY [facility] Last Admin: 02/02/18 10:47 Dose: 300 mg Carbidopa/Levodopa (Sinemet 25/100 -) 1 each PO TID [facility] Last Admin: 02/02/18 05:47 Dose: 1 each Cholecalciferol (Vitamin D3 -) 1,000 unit PO DAILY [facility] Last Admin: 02/02/18 10:44 Dose: 1,000 unit Citalopram Hydrobromide (Celexa -) 10 mg PO DAILY [facility] Last Admin: 02/02/18 10:46 Dose: 10 mg Digoxin (Lanoxin -) 0.25 mg PO DAILY [facility] Last Admin: 02/02/18 10:45 Dose: 0.25 mg Docusate Sodium (Colace -) 300 mg PO HS [facility] Last Admin: 02/01/18 21:13 Dose: 300 mg Enoxaparin Sodium (Lovenox -) 90 mg SQ BID [facility] Last Admin: 02/02/18 11:05 Dose: 90 mg Ferrous Sulfate (Feosol -) 325 mg PO DAILY [facility] Last Admin: 02/02/18 10:45 Dose: 325 mg Guaifenesin (Robitussin -) 10 ml PO Q6H PRN PRN Reason: COUGH Last Admin: 02/02/18 10:44 Dose: 10 ml Guaifenesin/Codeine Phosphate (Robitussin Ac -) 5 ml PO TID PRN PRN Reason: COUGH Last Admin: 02/02/18 06:17 Dose: 5 ml Ceftriaxone Sodium 1 gm/ (Dextrose) 50 mls @ 100 mls/hr IVPB DAILY [facility]; Protocol Last Admin: 02/02/18 10:46 Dose: 100 mls/hr Insulin Aspart (Novolog Vial Sliding Scale -) 1 vial SQ TIDAC [facility]; Protocol Last Admin: 02/02/18 06:13 Dose: 2 unit Insulin Detemir (Levemir Vial) 40 units SQ AM [facility] Last Admin: 02/02/18 06:15 Dose: 40 unit Ketorolac Tromethamine (Ketorolac 0.5% Eye Drop) 1 drop OD TID [facility] Last Admin: 02/02/18 06:13 Dose: 1 drop Loratadine (Claritin -) 10 mg PO DAILY [facility] Last Admin: 02/02/18 10:46 Dose: 10 mg Methylprednisolone Sodium Succinate (Solu-Medrol -) 40 mg IVPUSH Q8H-IV [facility] Last Admin: 02/02/18 10:46 Dose: 40 mg Oxycodone HCl (Roxicodone -) 5 mg PO Q6H PRN PRN Reason: PAIN 7-10 Last Admin: 02/02/18 10:45 Dose: 5 mg Pantoprazole Sodium (Protonix -) 40 mg PO DAILY [facility] Last Admin: 02/02/18 10:45 Dose: 40 mg Polyethylene Glycol (Miralax (For Daily Use) -) 17 gm PO DAILY [facility] Last Admin: 02/02/18 10:45 Dose: 17 gm Pramipexole Dihydrochloride (Mirapex -) 0.5 mg PO TID [facility] Last Admin: 02/02/18 05:47 Dose: 0.5 mg Ranolazine (Ranexa -) 500 mg PO BID [facility] Last Admin: 02/02/18 10:44 Dose: 500 mg Senna (Senna -) 1 tab PO BID [facility] Last Admin: 02/02/18 10:46 Dose: 1 tab Tiotropium [place] (Spiriva Respimat) 2 puff IH DAILY [facility] Last Admin: 02/02/18 10:42 Dose: 2 puff Topiramate (Topamax -) 150 mg PO BID [facility] Last Admin: 02/02/18 10:47 Dose: 150 mg Torsemide (Demadex -) 40 mg PO DAILY [facility] Last Admin: 02/02/18 10:44 Dose: 40 mg Tramadol HCl (Ultram -) 50 mg PO Q8H PRN PRN Reason: PAIN LEVEL 6-10 Last Admin: 02/01/18 23:50 Dose: 50 mg Triamcinolone Acetonide (Aristocort 0.1% Cream -) 1 applic TP BID [facility] Last Admin: 02/02/18 10:43 Dose: 1 applic Verapamil HCl (Calan Sr -) 240 mg PO DAILY [facility] Last Admin: 02/02/18 10:44 Dose: 240 mg Warfarin Sodium (Coumadin -) 9 mg PO DAILY@1800 [facility] Last Admin: 02/01/18 18:19 Dose: 9 mg - Objective Vital Signs: Vital Signs Temperature 98.0 F 02/02/18 10:40 Pulse Rate 60 02/02/18 10:40 Respiratory Rate 18 02/02/18 10:40 Blood Pressure 160/70 02/02/18 10:40 O2 Sat by Pulse Oximetry (%) 97 02/01/18 21:00 Constitutional: Yes: Well Nourished, Anxious Eyes: Yes: WNL HENT: Yes: WNL Neck: Yes: WNL Cardiovascular: Yes: Pulse Irregular, S1, S2 Respiratory: Yes: Wheezes (BILATERAL WHEEZES) Gastrointestinal: Yes: Normal Bowel Sounds, Soft Extremities: Yes: WNL Edema: No Labs: CBC, BMP INR, PTT INR 2.13 (0.83-1.09) H 02/02/18 06:30 Assessment/Plan Problem List - Problems (1) COPD exacerbation Code(s): J44.1 - CHRONIC OBSTRUCTIVE PULMONARY DISEASE W (ACUTE) EXACERBATION (2) Afib Code(s): I48.91 - UNSPECIFIED ATRIAL FIBRILLATION Qualifiers: Atrial fibrillation type: paroxysmal Qualified Code(s): I48.0 - Paroxysmal atrial fibrillation (3) CAD (coronary artery disease) Code(s): I25.10 - ATHSCL HEART DISEASE OF [place] CORONARY ARTERY W/O ANG PCTRS (4) CHF (congestive heart failure) Code(s): I50.9 - HEART FAILURE, UNSPECIFIED (5) Diabetes Code(s): E11.9 - TYPE 2 DIABETES MELLITUS WITHOUT COMPLICATIONS Qualifiers: Diabetes mellitus type: type 2 Diabetes mellitus complication status: with neurologic complications (6) HTN (hypertension) Code(s): I10 - ESSENTIAL (PRIMARY) HYPERTENSION Qualifiers: Hypertension type: essential hypertension Qualified Code(s): I10 - Essential (primary) hypertension (7) Lupus Code(s): L93.0 - DISCOID LUPUS ERYTHEMATOSUS (8) FIGUEROA (obstructive sleep apnea) Code(s): G47.33 - OBSTRUCTIVE SLEEP APNEA (ADULT) (PEDIATRIC) Assessment/Plan Acute COPD Exacerbation Chronic Hypoxic Respiratory Failure Obstructive Sleep Apnea LV Diastolic Dysfunction CAD h/o MVR Atrial Fibrillation HTN DM Hyperlipidemia Lupus UTI - antibiotics for UTI - IV medrol same dose - inhaled bronchodilators - O2 to keep Spo2 >90% - CPAP at night - rate control - continue anticoagulation DR IVERSON
[2018-02-02] MEDS: WARFARIN NA 3 MG TABLET PO SCH (17:41)
[2018-02-02] MEDS: DOCUSATE SODIUM 100 MG CAPSULE (FP) PO SCH (21:52)
[2018-02-03] MEDS: methylPREDNISolone NA SUCC 40 MG/1 ML VIAL IVPUSH SCH ×4 (02:38→21:04)
[2018-02-03] MEDS ORDERED: PT OWN MED DRAWER 7, Y5N ONE ×3 (06:04→20:54)
[2018-02-03] MEDS: PRAMIPEXOLE DIHYDROCHLORIDE 0.5 MG TABLET PO SCH ×3 (06:11→21:05)
[2018-02-03] MEDS: guaiFENesin/CODEINE 5 ML UNIT-DOSE CUPS PO PRN ×2 (06:11→17:31)
[2018-02-03] MEDS: CARBIDOPA/LEVODOPA 25/100 TABLET (FP) PO SCH ×3 (06:11→21:05)
[2018-02-03] MEDS: INSULIN (LEVEMIR) 100 UNITS/ML UNITS SQ SCH (06:11)
[2018-02-03] MEDS: KETOROLAC TROMETHAMINE 0.5% EYE DROP 1 DROP DROPS OD SCH ×3 (06:12→21:03)
[2018-02-03] MEDS: INSULIN SLIDING SCALE (NOVOLOG) 1 VIAL SQ SCH ×3 (06:16→17:29)
[2018-02-03] MEDS: ALBUTEROL SO4 0.083% IH SOL 2.5 MG/3 ML VIAL.NEB. NEB SCH ×4 (07:30→20:10)
[2018-02-03 07:53] LABS: INR 2.48 (0.83-1.09); PROTHROMBIN TIME (PATIENT) 29.5 SEC (9.7-13.0)
[2018-02-03] MEDS ORDERED: cefTRIAXone SODIUM 1 GM VIAL ONE (10:04)
[2018-02-03] MEDS ORDERED: DEXTROSE 5%-WATER - 50 ML IVPB ONE (10:04)
[2018-02-03] MEDS: TOPIRAMATE 100 MG TABLET PO SCH ×2 (10:11→21:05)
[2018-02-03] MEDS: VERAPAMIL HCL 240 MG E.R. TABLET (FP) PO SCH (10:18)
[2018-02-03] MEDS: SENNOSIDES 8.6MG TABLET (FP) PO SCH ×2 (10:18→21:05)
[2018-02-03] MEDS: PANTOPRAZOLE 40 MG TABLET (FP) PO SCH (10:18)
[2018-02-03] MEDS: CHOLECALCIFEROL (VITAMIN D3) 1,000 UNIT TABLET (FP) PO SCH (10:18)
[2018-02-03] MEDS: LORATADINE 10 MG TABLET PO SCH (10:18)
[2018-02-03] MEDS: RANOLAZINE E.R. 500 MG TABLET (FP) PO SCH ×2 (10:18→21:04)
[2018-02-03] MEDS: DIGOXIN 0.25 MG TABLET (FP) PO SCH (10:18)
[2018-02-03] MEDS: AZITHROMYCIN 250 MG TABLET PO SCH (10:18)
[2018-02-03] MEDS: CITALOPRAM HYDROBROMIDE 10 MG TABLET (FP) PO SCH (10:18)
[2018-02-03] MEDS: FERROUS SO4 325 MG TABLET (FP) PO SCH (10:18)
[2018-02-03] MEDS: guaiFENesin 200 MG/10 ML 10 ML UNIT-DOSE CUPS PO PRN (10:18)
[2018-02-03] MEDS: POLYETHYLENE GLYCOL 3350 119 GM BTL PO SCH (10:19)
[2018-02-03] MEDS: CEFTRIAXONE 1 GM in DEXTROSE 5%-WATER - 50 ML IVPB SCH (10:19)
[2018-02-03] MEDS: TORSEMIDE 20 MG TABLET (FP) PO SCH (10:19)
[2018-02-03] MEDS: ENOXAPARIN NA (PORCINE) 100 MG/1 ML DISP.SYRIN SQ SCH (10:20)
[2018-02-03] MEDS: BUDESONIDE/FORMETEROL FUMARATE 160/4.5 mcg INHALER IH SCH ×2 (10:21→21:06)
[2018-02-03] MEDS: TIOTROPIUM BROMIDE 2.5 MCG (SPIRIVA) RESPIMAT INHALER IH SCH (10:22)
[2018-02-03] MEDS: TRIAMCINOLONE ACET 0.1% CREAM 15 GM TUBE TP SCH ×2 (10:22→21:04)
[2018-02-03] MEDS: BRIMONIDINE TARTRATE 0.2% OPHTHALMIC 5 ML BOTTLE OD SCH ×2 (10:22→21:03)
[2018-02-03] MEDS: oxyCODONE HCL 5 MG TABLET PO PRN (10:23)
--- NOTE | 2018-02-03 11:57 | PN ---
Progress Note, Physician Chief Complaint: AWAKE COUGHING STILL SOB NO FEVERS - Current Medication List Current Medications: Active Medications Albuterol Sulfate (Ventolin 0.083% Nebulizer Soln -) 1 amp NEB Q4H PRN PRN Reason: SHORT OF BREATH/WHEEZING Last Admin: 02/02/18 03:10 Dose: 1 amp Albuterol Sulfate (Ventolin 0.083% Nebulizer Soln -) 1 amp NEB RQID [facility] Last Admin: 02/03/18 11:47 Dose: 1 amp Azithromycin (Zithromax -) 250 mg PO DAILY [facility] Last Admin: 02/03/18 10:18 Dose: 250 mg Brimonidine Tartrate (Alphagan 0.2% -) 1 drop OD BID [facility] Last Admin: 02/03/18 10:22 Dose: 1 drop Budesonide/Formoterol Fumarate (Symbicort 160/4.5mcg -) 2 puff IH BID [facility] Last Admin: 02/03/18 10:21 Dose: 2 puff Bupropion HCl (Wellbutrin Xl -) 300 mg PO DAILY [facility] Last Admin: 02/03/18 10:18 Dose: 300 mg Carbidopa/Levodopa (Sinemet 25/100 -) 1 each PO TID [facility] Last Admin: 02/03/18 06:11 Dose: 1 each Cholecalciferol (Vitamin D3 -) 1,000 unit PO DAILY [facility] Last Admin: 02/03/18 10:18 Dose: 1,000 unit Citalopram Hydrobromide (Celexa -) 10 mg PO DAILY [facility] Last Admin: 02/03/18 10:18 Dose: 10 mg Digoxin (Lanoxin -) 0.25 mg PO DAILY [facility] Last Admin: 02/03/18 10:18 Dose: 0.25 mg Docusate Sodium (Colace -) 300 mg PO HS [facility] Last Admin: 02/02/18 21:52 Dose: 300 mg Enoxaparin Sodium (Lovenox -) 90 mg SQ BID [facility] Last Admin: 02/03/18 10:20 Dose: 90 mg Ferrous Sulfate (Feosol -) 325 mg PO DAILY [facility] Last Admin: 02/03/18 10:18 Dose: 325 mg Guaifenesin (Robitussin -) 10 ml PO Q6H PRN PRN Reason: COUGH Last Admin: 02/03/18 10:18 Dose: 10 ml Guaifenesin/Codeine Phosphate (Robitussin Ac -) 5 ml PO TID PRN PRN Reason: COUGH Last Admin: 02/03/18 06:11 Dose: 5 ml Ceftriaxone Sodium 1 gm/ (Dextrose) 50 mls @ 100 mls/hr IVPB DAILY [facility]; Protocol Last Admin: 02/03/18 10:19 Dose: 100 mls/hr Insulin Aspart (Novolog Vial Sliding Scale -) 1 vial SQ TIDAC [facility]; Protocol Last Admin: 02/03/18 06:16 Dose: 2 unit Insulin Detemir (Levemir Vial) 40 units SQ AM [facility] Last Admin: 02/03/18 06:11 Dose: 40 unit Ketorolac Tromethamine (Ketorolac 0.5% Eye Drop) 1 drop OD TID [facility] Last Admin: 02/03/18 06:12 Dose: 1 drop Loratadine (Claritin -) 10 mg PO DAILY [facility] Last Admin: 02/03/18 10:18 Dose: 10 mg Methylprednisolone Sodium Succinate (Solu-Medrol -) 40 mg IVPUSH Q8H-IV [facility] Last Admin: 02/03/18 10:20 Dose: 40 mg Oxycodone HCl (Roxicodone -) 5 mg PO Q6H PRN PRN Reason: PAIN 7-10 Last Admin: 02/03/18 10:23 Dose: 5 mg Pantoprazole Sodium (Protonix -) 40 mg PO DAILY [facility] Last Admin: 02/03/18 10:18 Dose: 40 mg Polyethylene Glycol (Miralax (For Daily Use) -) 17 gm PO DAILY [facility] Last Admin: 02/03/18 10:19 Dose: 17 gm Pramipexole Dihydrochloride (Mirapex -) 0.5 mg PO TID [facility] Last Admin: 02/03/18 06:11 Dose: 0.5 mg Ranolazine (Ranexa -) 500 mg PO BID [facility] Last Admin: 02/03/18 10:18 Dose: 500 mg Senna (Senna -) 1 tab PO BID [facility] Last Admin: 02/03/18 10:18 Dose: 1 tab Tiotropium [place] (Spiriva Respimat) 2 puff IH DAILY [facility] Last Admin: 02/03/18 10:22 Dose: 2 puff Topiramate (Topamax -) 150 mg PO BID [facility] Last Admin: 02/03/18 10:11 Dose: 150 mg Torsemide (Demadex -) 40 mg PO DAILY [facility] Last Admin: 02/03/18 10:19 Dose: 40 mg Triamcinolone Acetonide (Aristocort 0.1% Cream -) 1 applic TP BID [facility] Last Admin: 02/03/18 10:22 Dose: 1 applic Verapamil HCl (Calan Sr -) 240 mg PO DAILY [facility] Last Admin: 02/03/18 10:18 Dose: 240 mg Warfarin Sodium (Coumadin -) 9 mg PO DAILY@1800 [facility] Last Admin: 02/02/18 17:41 Dose: 9 mg - Objective Vital Signs: Vital Signs Temperature 98.0 F 02/03/18 10:10 Pulse Rate 60 02/03/18 10:18 Respiratory Rate 18 02/03/18 10:10 Blood Pressure 138/61 02/03/18 10:10 O2 Sat by Pulse Oximetry (%) 97 02/02/18 21:00 Constitutional: Yes: Mild Distress Eyes: Yes: WNL HENT: Yes: WNL Neck: Yes: WNL Cardiovascular: Yes: WNL Respiratory: Yes: Cough, On Nasal O2, Rhonchi Gastrointestinal: Yes: WNL Genitourinary: Yes: WNL Musculoskeletal: Yes: WNL Extremities: Yes: WNL Edema: No Peripheral Pulses WNL: Yes Integumentary: Yes: WNL Wound/Incision: Yes: Clean/Dry Neurological: Yes: Pre-Existing Deficit ...Motor Strength: WNL Psychiatric: Yes: WNL Labs: CBC, BMP 02/01/18 06:45 02/01/18 06:45 INR, PTT INR 2.48 (0.83-1.09) H 02/03/18 06:30 Problem List - Problems (1) COPD exacerbation Code(s): J44.1 - CHRONIC OBSTRUCTIVE PULMONARY DISEASE W (ACUTE) EXACERBATION (2) Chest pain Code(s): R07.9 - CHEST PAIN, UNSPECIFIED Qualifiers: Chest pain type: unspecified Qualified Code(s): R07.9 - Chest pain, unspecified (3) SOB (shortness of breath) Code(s): R06.02 - SHORTNESS OF BREATH (4) Abdominal pain, vomiting, and diarrhea Code(s): R10.9 - UNSPECIFIED ABDOMINAL PAIN; R11.10 - VOMITING, UNSPECIFIED; R19.7 - DIARRHEA, UNSPECIFIED (5) Acute bilateral low back pain Code(s): M54.5 - LOW BACK PAIN (6) Afib Code(s): I48.91 - UNSPECIFIED ATRIAL FIBRILLATION Qualifiers: Atrial fibrillation type: paroxysmal Qualified Code(s): I48.0 - Paroxysmal atrial fibrillation (7) Asthma exacerbation in COPD Code(s): J44.1 - CHRONIC OBSTRUCTIVE PULMONARY DISEASE W (ACUTE) EXACERBATION; J45.901 - UNSPECIFIED ASTHMA WITH (ACUTE) EXACERBATION (8) CAD (coronary artery disease) Code(s): I25.10 - ATHSCL HEART DISEASE OF [place] CORONARY ARTERY W/O ANG PCTRS (9) Cough Code(s): R05 - COUGH (10) Diabetes Code(s): E11.9 - TYPE 2 DIABETES MELLITUS WITHOUT COMPLICATIONS Qualifiers: Diabetes mellitus type: type 2 Diabetes mellitus complication status: with neurologic complications (11) Dyslipidemia Code(s): E78.5 - HYPERLIPIDEMIA, UNSPECIFIED (12) Fibromyalgia Code(s): M79.7 - FIBROMYALGIA Assessment/Plan IV CEFTRIAXONE/AZITHRO PO, ID CONSULT NEEDED NEBS STEROIDS 02 SUPPORT LOVENOX BRIDGE TO COUMADIN, SERIAL INR UNTIL LEVEL THERAPEUTIC BGM, ISS, ACHS OOB TO CHAIR STRAIGHT CATH NEEDED FOR URINARY RETENTION
--- NOTE | 2018-02-03 13:20 | PN ---
Progress Note, Physician History of Present Illness: pulmonary alert,still congested,dyspneic,+ cough - Current Medication List Current Medications: Active Medications Albuterol Sulfate (Ventolin 0.083% Nebulizer Soln -) 1 amp NEB Q4H PRN PRN Reason: SHORT OF BREATH/WHEEZING Last Admin: 02/02/18 03:10 Dose: 1 amp Albuterol Sulfate (Ventolin 0.083% Nebulizer Soln -) 1 amp NEB RQID [facility] Last Admin: 02/03/18 11:47 Dose: 1 amp Azithromycin (Zithromax -) 250 mg PO DAILY [facility] Last Admin: 02/03/18 10:18 Dose: 250 mg Brimonidine Tartrate (Alphagan 0.2% -) 1 drop OD BID [facility] Last Admin: 02/03/18 10:22 Dose: 1 drop Budesonide/Formoterol Fumarate (Symbicort 160/4.5mcg -) 2 puff IH BID [facility] Last Admin: 02/03/18 10:21 Dose: 2 puff Bupropion HCl (Wellbutrin Xl -) 300 mg PO DAILY [facility] Last Admin: 02/03/18 10:18 Dose: 300 mg Carbidopa/Levodopa (Sinemet 25/100 -) 1 each PO TID [facility] Last Admin: 02/03/18 06:11 Dose: 1 each Cholecalciferol (Vitamin D3 -) 1,000 unit PO DAILY [facility] Last Admin: 02/03/18 10:18 Dose: 1,000 unit Citalopram Hydrobromide (Celexa -) 10 mg PO DAILY [facility] Last Admin: 02/03/18 10:18 Dose: 10 mg Digoxin (Lanoxin -) 0.25 mg PO DAILY [facility] Last Admin: 02/03/18 10:18 Dose: 0.25 mg Docusate Sodium (Colace -) 300 mg PO HS [facility] Last Admin: 02/02/18 21:52 Dose: 300 mg Ferrous Sulfate (Feosol -) 325 mg PO DAILY [facility] Last Admin: 02/03/18 10:18 Dose: 325 mg Guaifenesin (Robitussin -) 10 ml PO Q6H PRN PRN Reason: COUGH Last Admin: 02/03/18 10:18 Dose: 10 ml Guaifenesin/Codeine Phosphate (Robitussin Ac -) 5 ml PO TID PRN PRN Reason: COUGH Last Admin: 02/03/18 06:11 Dose: 5 ml Ceftriaxone Sodium 1 gm/ (Dextrose) 50 mls @ 100 mls/hr IVPB DAILY [facility]; Protocol Last Admin: 02/03/18 10:19 Dose: 100 mls/hr Insulin Aspart (Novolog Vial Sliding Scale -) 1 vial SQ TIDAC [facility]; Protocol Last Admin: 02/03/18 12:05 Dose: Not Given Insulin Detemir (Levemir Vial) 40 units SQ AM [facility] Last Admin: 02/03/18 06:11 Dose: 40 unit Ketorolac Tromethamine (Ketorolac 0.5% Eye Drop) 1 drop OD TID [facility] Last Admin: 02/03/18 06:12 Dose: 1 drop Loratadine (Claritin -) 10 mg PO DAILY [facility] Last Admin: 02/03/18 10:18 Dose: 10 mg Methylprednisolone Sodium Succinate (Solu-Medrol -) 40 mg IVPUSH Q8H-IV [facility] Last Admin: 02/03/18 10:20 Dose: 40 mg Oxycodone HCl (Roxicodone -) 5 mg PO Q6H PRN PRN Reason: PAIN 7-10 Last Admin: 02/03/18 10:23 Dose: 5 mg Pantoprazole Sodium (Protonix -) 40 mg PO DAILY [facility] Last Admin: 02/03/18 10:18 Dose: 40 mg Polyethylene Glycol (Miralax (For Daily Use) -) 17 gm PO DAILY [facility] Last Admin: 02/03/18 10:19 Dose: 17 gm Pramipexole Dihydrochloride (Mirapex -) 0.5 mg PO TID [facility] Last Admin: 02/03/18 06:11 Dose: 0.5 mg Ranolazine (Ranexa -) 500 mg PO BID [facility] Last Admin: 02/03/18 10:18 Dose: 500 mg Senna (Senna -) 1 tab PO BID [facility] Last Admin: 02/03/18 10:18 Dose: 1 tab Tiotropium [place] (Spiriva Respimat) 2 puff IH DAILY [facility] Last Admin: 02/03/18 10:22 Dose: 2 puff Topiramate (Topamax -) 150 mg PO BID [facility] Last Admin: 02/03/18 10:11 Dose: 150 mg Torsemide (Demadex -) 40 mg PO DAILY [facility] Last Admin: 02/03/18 10:19 Dose: 40 mg Triamcinolone Acetonide (Aristocort 0.1% Cream -) 1 applic TP BID [facility] Last Admin: 02/03/18 10:22 Dose: 1 applic Verapamil HCl (Calan Sr -) 240 mg PO DAILY [facility] Last Admin: 02/03/18 10:18 Dose: 240 mg Warfarin Sodium (Coumadin -) 9 mg PO DAILY@1800 [facility] Last Admin: 02/02/18 17:41 Dose: 9 mg - Objective Vital Signs: Vital Signs Temperature 98.0 F 02/03/18 10:10 Pulse Rate 60 02/03/18 10:18 Respiratory Rate 18 02/03/18 10:10 Blood Pressure 138/61 02/03/18 10:10 O2 Sat by Pulse Oximetry (%) 97 02/02/18 21:00 Constitutional: Yes: Well Nourished, Calm Eyes: Yes: WNL HENT: Yes: WNL Neck: Yes: WNL Cardiovascular: Yes: Pulse Irregular, S1, S2 Respiratory: Yes: Wheezes (bilateral wheezes) Gastrointestinal: Yes: Normal Bowel Sounds, Soft Extremities: Yes: WNL Edema: No Labs: CBC, BMP 02/01/18 06:45 INR 2.48 (0.83-1.09) H 02/03/18 06:30 Assessment/Plan Problem List - Problems (1) COPD exacerbation Code(s): J44.1 - CHRONIC OBSTRUCTIVE PULMONARY DISEASE W (ACUTE) EXACERBATION (2) Afib Code(s): I48.91 - UNSPECIFIED ATRIAL FIBRILLATION Qualifiers: Atrial fibrillation type: paroxysmal Qualified Code(s): I48.0 - Paroxysmal atrial fibrillation (3) CAD (coronary artery disease) Code(s): I25.10 - ATHSCL HEART DISEASE OF [place] CORONARY ARTERY W/O ANG PCTRS (4) CHF (congestive heart failure) Code(s): I50.9 - HEART FAILURE, UNSPECIFIED (5) Diabetes Code(s): E11.9 - TYPE 2 DIABETES MELLITUS WITHOUT COMPLICATIONS Qualifiers: Diabetes mellitus type: type 2 Diabetes mellitus complication status: with neurologic complications (6) HTN (hypertension) Code(s): I10 - ESSENTIAL (PRIMARY) HYPERTENSION Qualifiers: Hypertension type: essential hypertension Qualified Code(s): I10 - Essential (primary) hypertension (7) Lupus Code(s): L93.0 - DISCOID LUPUS ERYTHEMATOSUS (8) FIGUEROA (obstructive sleep apnea) Code(s): G47.33 - OBSTRUCTIVE SLEEP APNEA (ADULT) (PEDIATRIC) Assessment/Plan Acute COPD Exacerbation Chronic Hypoxic Respiratory Failure Obstructive Sleep Apnea LV Diastolic Dysfunction CAD h/o MVR Atrial Fibrillation HTN DM Hyperlipidemia Lupus UTI - antibiotics for UTI - IV medrol q6h - inhaled bronchodilators - O2 to keep Spo2 >90% - CPAP at night - rate control - continue anticoagulation - robitusjohn IVERSON
[2018-02-03] MEDS: WARFARIN NA 3 MG TABLET PO SCH (17:31)
[2018-02-03] MEDS: DOCUSATE SODIUM 100 MG CAPSULE (FP) PO SCH (21:04)
[2018-02-04] MEDS: guaiFENesin/CODEINE 5 ML UNIT-DOSE CUPS PO PRN ×2 (00:46→22:28)
[2018-02-04] MEDS: methylPREDNISolone NA SUCC 40 MG/1 ML VIAL IVPUSH SCH ×4 (02:59→22:13)
[2018-02-04] MEDS: KETOROLAC TROMETHAMINE 0.5% EYE DROP 1 DROP DROPS OD SCH ×3 (06:00→22:19)
[2018-02-04] MEDS: INSULIN (LEVEMIR) 100 UNITS/ML UNITS SQ SCH (06:00)
[2018-02-04] MEDS: INSULIN SLIDING SCALE (NOVOLOG) 1 VIAL SQ SCH ×3 (06:00→17:17)
[2018-02-04] MEDS: CARBIDOPA/LEVODOPA 25/100 TABLET (FP) PO SCH ×3 (06:01→22:14)
[2018-02-04] MEDS: PRAMIPEXOLE DIHYDROCHLORIDE 0.5 MG TABLET PO SCH ×3 (06:01→22:13)
[2018-02-04] MEDS: ALBUTEROL SO4 0.083% IH SOL 2.5 MG/3 ML VIAL.NEB. NEB SCH ×4 (07:25→20:00)
[2018-02-04 08:24] LABS: INR 2.32 (0.83-1.09); PROTHROMBIN TIME (PATIENT) 27.6 SEC (9.7-13.0)
--- NOTE | 2018-02-04 08:53 | PN ---
Progress Note, Physician Chief Complaint: STILL COUGHING AND SOB NO FEVER - Current Medication List Current Medications: Active Medications Albuterol Sulfate (Ventolin 0.083% Nebulizer Soln -) 1 amp NEB Q4H PRN PRN Reason: SHORT OF BREATH/WHEEZING Last Admin: 02/02/18 03:10 Dose: 1 amp Albuterol Sulfate (Ventolin 0.083% Nebulizer Soln -) 1 amp NEB RQID [facility] Last Admin: 02/03/18 20:10 Dose: 1 amp Azithromycin (Zithromax -) 250 mg PO DAILY [facility] Last Admin: 02/03/18 10:18 Dose: 250 mg Brimonidine Tartrate (Alphagan 0.2% -) 1 drop OD BID [facility] Last Admin: 02/03/18 21:03 Dose: 1 drop Budesonide/Formoterol Fumarate (Symbicort 160/4.5mcg -) 2 puff IH BID [facility] Last Admin: 02/03/18 21:06 Dose: 2 puff Bupropion HCl (Wellbutrin Xl -) 300 mg PO DAILY [facility] Last Admin: 02/03/18 10:18 Dose: 300 mg Carbidopa/Levodopa (Sinemet 25/100 -) 1 each PO TID [facility] Last Admin: 02/04/18 06:01 Dose: 1 each Cholecalciferol (Vitamin D3 -) 1,000 unit PO DAILY [facility] Last Admin: 02/03/18 10:18 Dose: 1,000 unit Citalopram Hydrobromide (Celexa -) 10 mg PO DAILY [facility] Last Admin: 02/03/18 10:18 Dose: 10 mg Digoxin (Lanoxin -) 0.25 mg PO DAILY [facility] Last Admin: 02/03/18 10:18 Dose: 0.25 mg Docusate Sodium (Colace -) 300 mg PO HS [facility] Last Admin: 02/03/18 21:04 Dose: 300 mg Ferrous Sulfate (Feosol -) 325 mg PO DAILY [facility] Last Admin: 02/03/18 10:18 Dose: 325 mg Guaifenesin/Codeine Phosphate (Robitussin Ac -) 5 ml PO Q6H PRN PRN Reason: COUGH Last Admin: 02/04/18 00:46 Dose: 5 ml Ceftriaxone Sodium 1 gm/ (Dextrose) 50 mls @ 100 mls/hr IVPB DAILY [facility]; Protocol Last Admin: 02/03/18 10:19 Dose: 100 mls/hr Insulin Aspart (Novolog Vial Sliding Scale -) 1 vial SQ TIDAC [facility]; Protocol Last Admin: 02/04/18 06:00 Dose: 4 unit Insulin Detemir (Levemir Vial) 40 units SQ AM [facility] Last Admin: 02/04/18 06:00 Dose: 40 unit Ketorolac Tromethamine (Ketorolac 0.5% Eye Drop) 1 drop OD TID [facility] Last Admin: 02/04/18 06:00 Dose: 1 drop Loratadine (Claritin -) 10 mg PO DAILY [facility] Last Admin: 02/03/18 10:18 Dose: 10 mg Methylprednisolone Sodium Succinate (Solu-Medrol -) 40 mg IVPUSH Q6H-IV [facility] Last Admin: 02/04/18 02:59 Dose: 40 mg Oxycodone HCl (Roxicodone -) 5 mg PO Q6H PRN PRN Reason: PAIN 7-10 Last Admin: 02/03/18 10:23 Dose: 5 mg Pantoprazole Sodium (Protonix -) 40 mg PO DAILY [facility] Last Admin: 02/03/18 10:18 Dose: 40 mg Polyethylene Glycol (Miralax (For Daily Use) -) 17 gm PO DAILY [facility] Last Admin: 02/03/18 10:19 Dose: 17 gm Pramipexole Dihydrochloride (Mirapex -) 0.5 mg PO TID [facility] Last Admin: 02/04/18 06:01 Dose: 0.5 mg Ranolazine (Ranexa -) 500 mg PO BID [facility] Last Admin: 02/03/18 21:04 Dose: 500 mg Senna (Senna -) 1 tab PO BID [facility] Last Admin: 02/03/18 21:05 Dose: 1 tab Tiotropium [place] (Spiriva Respimat) 2 puff IH DAILY [facility] Last Admin: 02/03/18 10:22 Dose: 2 puff Topiramate (Topamax -) 150 mg PO BID [facility] Last Admin: 02/03/18 21:05 Dose: 150 mg Torsemide (Demadex -) 40 mg PO DAILY [facility] Last Admin: 02/03/18 10:19 Dose: 40 mg Triamcinolone Acetonide (Aristocort 0.1% Cream -) 1 applic TP BID [facility] Last Admin: 02/03/18 21:04 Dose: 1 applic Verapamil HCl (Calan Sr -) 240 mg PO DAILY [facility] Last Admin: 02/03/18 10:18 Dose: 240 mg Warfarin Sodium (Coumadin -) 9 mg PO DAILY@1800 [facility] Last Admin: 02/03/18 17:31 Dose: 9 mg - Objective Vital Signs: Vital Signs Temperature 96.6 F L 02/04/18 06:00 Pulse Rate 58 L 02/04/18 06:00 Respiratory Rate 20 02/04/18 06:00 Blood Pressure 148/53 L 02/04/18 06:00 O2 Sat by Pulse Oximetry (%) 95 02/03/18 21:00 Constitutional: Yes: Mild Distress Eyes: Yes: WNL HENT: Yes: WNL Neck: Yes: WNL Cardiovascular: Yes: WNL Respiratory: Yes: Cough Gastrointestinal: Yes: WNL Genitourinary: Yes: WNL Musculoskeletal: Yes: WNL Extremities: Yes: WNL Edema: No Peripheral Pulses WNL: Yes Labs: CBC, BMP 02/01/18 06:45 02/01/18 06:45 INR, PTT INR 2.32 (0.83-1.09) H 02/04/18 06:30 Problem List - Problems (1) COPD exacerbation Code(s): J44.1 - CHRONIC OBSTRUCTIVE PULMONARY DISEASE W (ACUTE) EXACERBATION (2) Chest pain Code(s): R07.9 - CHEST PAIN, UNSPECIFIED Qualifiers: Chest pain type: unspecified Qualified Code(s): R07.9 - Chest pain, unspecified (3) SOB (shortness of breath) Code(s): R06.02 - SHORTNESS OF BREATH (4) Abdominal pain, vomiting, and diarrhea Code(s): R10.9 - UNSPECIFIED ABDOMINAL PAIN; R11.10 - VOMITING, UNSPECIFIED; R19.7 - DIARRHEA, UNSPECIFIED (5) Acute bilateral low back pain Code(s): M54.5 - LOW BACK PAIN (6) Afib Code(s): I48.91 - UNSPECIFIED ATRIAL FIBRILLATION Qualifiers: Atrial fibrillation type: paroxysmal Qualified Code(s): I48.0 - Paroxysmal atrial fibrillation (7) Asthma exacerbation in COPD Code(s): J44.1 - CHRONIC OBSTRUCTIVE PULMONARY DISEASE W (ACUTE) EXACERBATION; J45.901 - UNSPECIFIED ASTHMA WITH (ACUTE) EXACERBATION (8) CAD (coronary artery disease) Code(s): I25.10 - ATHSCL HEART DISEASE OF [place] CORONARY ARTERY W/O ANG PCTRS (9) Cough Code(s): R05 - COUGH (10) Diabetes Code(s): E11.9 - TYPE 2 DIABETES MELLITUS WITHOUT COMPLICATIONS Qualifiers: Diabetes mellitus type: type 2 Diabetes mellitus complication status: with neurologic complications (11) Dyslipidemia Code(s): E78.5 - HYPERLIPIDEMIA, UNSPECIFIED (12) Fibromyalgia Code(s): M79.7 - FIBROMYALGIA Assessment/Plan IV CEFTRIAXONE STOPPED, AZITHRO PO CONTINUE FOR 1 MORE DAY, ID CONSULT NEEDED NEBS STEROIDS 02 SUPPORT LOVENOX BRIDGE TO COUMADIN, SERIAL INR UNTIL LEVEL THERAPEUTIC BGM, ISS, ACHS OOB TO CHAIR STRAIGHT CATH NEEDED FOR URINARY RETENTION
[2018-02-04] MEDS ORDERED: cefTRIAXone SODIUM 1 GM VIAL ONE (09:09)
[2018-02-04] MEDS ORDERED: DEXTROSE 5%-WATER - 50 ML IVPB ONE (09:09)
[2018-02-04] MEDS: VERAPAMIL HCL 240 MG E.R. TABLET (FP) PO SCH (09:59)
[2018-02-04] MEDS: RANOLAZINE E.R. 500 MG TABLET (FP) PO SCH ×2 (10:16→22:13)
[2018-02-04] MEDS: FERROUS SO4 325 MG TABLET (FP) PO SCH (10:16)
[2018-02-04] MEDS: CEFTRIAXONE 1 GM in DEXTROSE 5%-WATER - 50 ML IVPB SCH (10:16)
[2018-02-04] MEDS: DIGOXIN 0.25 MG TABLET (FP) PO SCH (10:17)
[2018-02-04] MEDS: CHOLECALCIFEROL (VITAMIN D3) 1,000 UNIT TABLET (FP) PO SCH (10:17)
[2018-02-04] MEDS: AZITHROMYCIN 250 MG TABLET PO SCH (10:17)
[2018-02-04] MEDS: LORATADINE 10 MG TABLET PO SCH (10:17)
[2018-02-04] MEDS: TORSEMIDE 20 MG TABLET (FP) PO SCH (10:18)
[2018-02-04] MEDS: PANTOPRAZOLE 40 MG TABLET (FP) PO SCH (10:18)
--- NOTE | 2018-02-04 10:18 | PN ---
Progress Note (short form) - Note Progress Note: PULMONARY Still with chest congestion, nonproductive cough and wheezing. Vital Signs Period Temp Pulse Resp BP Sys/Wise Pulse Ox Last 24 Hr 96.6 F-98 F 58-66 20-20 106-148/42-57 95-97 Gen: less tachypneic Heart: RRR Lung: bilateral rhonchi, wheezes Abd: soft, nontender Ext: no edema CBC, BMP 02/01/18 06:45 02/01/18 06:45 Active Medications Al Hydroxide/Mg Hydroxide (Mylanta Oral Suspension -) 30 ml PO Q6H PRN PRN Reason: DYSPEPSIA Albuterol Sulfate (Ventolin 0.083% Nebulizer Soln -) 1 amp NEB Q4H PRN PRN Reason: SHORT OF BREATH/WHEEZING Last Admin: 02/02/18 03:10 Dose: 1 amp Albuterol Sulfate (Ventolin 0.083% Nebulizer Soln -) 1 amp NEB RQID [facility] Last Admin: 02/04/18 07:25 Dose: 1 amp Azithromycin (Zithromax -) 250 mg PO DAILY [facility] Last Admin: 02/03/18 10:18 Dose: 250 mg Brimonidine Tartrate (Alphagan 0.2% -) 1 drop OD BID [facility] Last Admin: 02/03/18 21:03 Dose: 1 drop Budesonide/Formoterol Fumarate (Symbicort 160/4.5mcg -) 2 puff IH BID [facility] Last Admin: 02/03/18 21:06 Dose: 2 puff Bupropion HCl (Wellbutrin Xl -) 300 mg PO DAILY [facility] Last Admin: 02/03/18 10:18 Dose: 300 mg Carbidopa/Levodopa (Sinemet 25/100 -) 1 each PO TID [facility] Last Admin: 02/04/18 06:01 Dose: 1 each Cholecalciferol (Vitamin D3 -) 1,000 unit PO DAILY [facility] Last Admin: 02/03/18 10:18 Dose: 1,000 unit Citalopram Hydrobromide (Celexa -) 10 mg PO DAILY [facility] Last Admin: 02/03/18 10:18 Dose: 10 mg Digoxin (Lanoxin -) 0.25 mg PO DAILY [facility] Last Admin: 02/03/18 10:18 Dose: 0.25 mg Docusate Sodium (Colace -) 300 mg PO HS [facility] Last Admin: 02/03/18 21:04 Dose: 300 mg Ferrous Sulfate (Feosol -) 325 mg PO DAILY [facility] Last Admin: 02/03/18 10:18 Dose: 325 mg Guaifenesin/Codeine Phosphate (Robitussin Ac -) 5 ml PO Q6H PRN PRN Reason: COUGH Last Admin: 02/04/18 00:46 Dose: 5 ml Ceftriaxone Sodium 1 gm/ (Dextrose) 50 mls @ 100 mls/hr IVPB DAILY [facility]; Protocol Last Admin: 02/03/18 10:19 Dose: 100 mls/hr Insulin Aspart (Novolog Vial Sliding Scale -) 1 vial SQ TIDAC [facility]; Protocol Last Admin: 02/04/18 06:00 Dose: 4 unit Insulin Detemir (Levemir Vial) 40 units SQ AM [facility] Last Admin: 02/04/18 06:00 Dose: 40 unit Ketorolac Tromethamine (Ketorolac 0.5% Eye Drop) 1 drop OD TID [facility] Last Admin: 02/04/18 06:00 Dose: 1 drop Loratadine (Claritin -) 10 mg PO DAILY [facility] Last Admin: 02/03/18 10:18 Dose: 10 mg Methylprednisolone Sodium Succinate (Solu-Medrol -) 40 mg IVPUSH Q6H-IV [facility] Last Admin: 02/04/18 02:59 Dose: 40 mg Oxycodone HCl (Roxicodone -) 5 mg PO Q6H PRN PRN Reason: PAIN 7-10 Last Admin: 02/03/18 10:23 Dose: 5 mg Pantoprazole Sodium (Protonix -) 40 mg PO DAILY [facility] Last Admin: 02/03/18 10:18 Dose: 40 mg Polyethylene Glycol (Miralax (For Daily Use) -) 17 gm PO DAILY [facility] Last Admin: 02/03/18 10:19 Dose: 17 gm Pramipexole Dihydrochloride (Mirapex -) 0.5 mg PO TID [facility] Last Admin: 02/04/18 06:01 Dose: 0.5 mg Ranolazine (Ranexa -) 500 mg PO BID [facility] Last Admin: 02/03/18 21:04 Dose: 500 mg Senna (Senna -) 1 tab PO BID [facility] Last Admin: 02/03/18 21:05 Dose: 1 tab Tiotropium [place] (Spiriva Respimat) 2 puff IH DAILY [facility] Last Admin: 02/03/18 10:22 Dose: 2 puff Topiramate (Topamax -) 150 mg PO BID [facility] Last Admin: 02/03/18 21:05 Dose: 150 mg Torsemide (Demadex -) 40 mg PO DAILY [facility] Last Admin: 02/03/18 10:19 Dose: 40 mg Triamcinolone Acetonide (Aristocort 0.1% Cream -) 1 applic TP BID [facility] Last Admin: 02/03/18 21:04 Dose: 1 applic Verapamil HCl (Calan Sr -) 240 mg PO DAILY [facility] Last Admin: 02/03/18 10:18 Dose: 240 mg Warfarin Sodium (Coumadin -) 9 mg PO DAILY@1800 [facility] Last Admin: 02/03/18 17:31 Dose: 9 mg A/P Acute COPD Exacerbation Chronic Hypoxic Respiratory Failure Obstructive Sleep Apnea LV Diastolic Dysfunction CAD h/o MVR Atrial Fibrillation HTN DM Hyperlipidemia Lupus UTI - can d/c antibiotics - continue IV medrol q6h - inhaled bronchodilators - O2 to keep Spo2 >90% - CPAP at night - rate control - continue anticoagulation - cough suppressants - will order chest PT Problem List - Problems (1) COPD exacerbation Code(s): J44.1 - CHRONIC OBSTRUCTIVE PULMONARY DISEASE W (ACUTE) EXACERBATION (2) Afib Code(s): I48.91 - UNSPECIFIED ATRIAL FIBRILLATION Qualifiers: Atrial fibrillation type: paroxysmal Qualified Code(s): I48.0 - Paroxysmal atrial fibrillation (3) CAD (coronary artery disease) Code(s): I25.10 - ATHSCL HEART DISEASE OF [place] CORONARY ARTERY W/O ANG PCTRS (4) CHF (congestive heart failure) Code(s): I50.9 - HEART FAILURE, UNSPECIFIED (5) Diabetes Code(s): E11.9 - TYPE 2 DIABETES MELLITUS WITHOUT COMPLICATIONS Qualifiers: Diabetes mellitus type: type 2 Diabetes mellitus complication status: with neurologic complications (6) HTN (hypertension) Code(s): I10 - ESSENTIAL (PRIMARY) HYPERTENSION Qualifiers: Hypertension type: essential hypertension Qualified Code(s): I10 - Essential (primary) hypertension (7) Lupus Code(s): L93.0 - DISCOID LUPUS ERYTHEMATOSUS (8) FIGUEROA (obstructive sleep apnea) Code(s): G47.33 - OBSTRUCTIVE SLEEP APNEA (ADULT) (PEDIATRIC)
[2018-02-04] MEDS: POLYETHYLENE GLYCOL 3350 119 GM BTL PO SCH (10:19)
[2018-02-04] MEDS: CITALOPRAM HYDROBROMIDE 10 MG TABLET (FP) PO SCH (10:19)
[2018-02-04] MEDS: TOPIRAMATE 100 MG TABLET PO SCH ×2 (10:21→22:14)
[2018-02-04] MEDS: BUDESONIDE/FORMETEROL FUMARATE 160/4.5 mcg INHALER IH SCH ×2 (10:23→22:16)
[2018-02-04] MEDS: TIOTROPIUM BROMIDE 2.5 MCG (SPIRIVA) RESPIMAT INHALER IH SCH (10:23)
[2018-02-04] MEDS: TRIAMCINOLONE ACET 0.1% CREAM 15 GM TUBE TP SCH ×2 (10:23→22:19)
[2018-02-04] MEDS: SENNOSIDES 8.6MG TABLET (FP) PO SCH ×2 (10:28→22:14)
[2018-02-04] MEDS: BRIMONIDINE TARTRATE 0.2% OPHTHALMIC 5 ML BOTTLE OD SCH ×2 (10:28→22:19)
[2018-02-04] MEDS ORDERED: INSULIN (NOVOLOG) ASPART 100 UNITS/ML 10ML VIAL ONE (12:19)
[2018-02-04 12:51] VITALS: BMI 36.3
[2018-02-04] MEDS ORDERED: PT OWN MED DRAWER 7, Y5N ONE ×2 (15:34→21:24)
[2018-02-04] MEDS: WARFARIN NA 3 MG TABLET PO SCH (17:18)
[2018-02-04] MEDS: oxyCODONE HCL 5 MG TABLET PO PRN ×2 (17:25→23:45)
[2018-02-04] MEDS: DOCUSATE SODIUM 100 MG CAPSULE (FP) PO SCH (22:13)
[2018-02-05] MEDS: methylPREDNISolone NA SUCC 40 MG/1 ML VIAL IVPUSH SCH ×3 (03:14→17:30)
[2018-02-05 07:21] LABS: HEMATOCRIT 38.9 % (32.4-45.2); MCHC 30.9 g/dl (32.0-36.0); MEAN CELL VOLUME 87.4 fl (80-96); MEAN PLT VOLUME 9.9 fl (7.5-11.1); PLATELET COUNT 246 K/MM3 (134-434); RBC 4.46 M/mm3 (3.60-5.2); RDW 15.7 % (11.6-15.6); WHITE BLOOD COUNT 16.9 K/mm3 (4.0-10.0)
[2018-02-05] MEDS: PRAMIPEXOLE DIHYDROCHLORIDE 0.5 MG TABLET PO SCH ×3 (07:25→22:31)
[2018-02-05] MEDS: CARBIDOPA/LEVODOPA 25/100 TABLET (FP) PO SCH ×3 (07:25→21:29)
[2018-02-05] MEDS: KETOROLAC TROMETHAMINE 0.5% EYE DROP 1 DROP DROPS OD SCH ×3 (07:25→21:43)
[2018-02-05] MEDS: INSULIN SLIDING SCALE (NOVOLOG) 1 VIAL SQ SCH ×3 (07:26→17:30)
[2018-02-05] MEDS: INSULIN (LEVEMIR) 100 UNITS/ML UNITS SQ SCH (07:26)
[2018-02-05] MEDS: ALBUTEROL SO4 0.083% IH SOL 2.5 MG/3 ML VIAL.NEB. NEB SCH ×4 (07:33→20:37)
[2018-02-05 08:10] LABS: ANION GAP 9 MMOL/L (8-16); BLOOD UREA NITROGEN 39 mg/dL (7-18); CALCIUM 8.6 mg/dL (8.5-10.1); CHLORIDE 99 mmol/L (98-107); CO2 26 mmol/L (21-32); CREATININE 1.1 mg/dL (0.55-1.3); POTASSIUM 4.5 mmol/L (3.5-5.1); SODIUM 134 mmol/L (136-145)
[2018-02-05 08:34] LABS: GLUCOSE,RANDOM 307 mg/dL (74-106)
[2018-02-05] MEDS ORDERED: INSULIN (NOVOLOG) ASPART 100 UNITS/ML 10ML VIAL ONE (09:04)
--- NOTE | 2018-02-05 10:35 | PN ---
Progress Note (short form) - Note Progress Note: PULMONARY Still with chest congestion, nonproductive cough and wheezing but slightly better. Vital Signs Period Temp Pulse Resp BP Sys/Wise Pulse Ox Last 24 Hr 97.4 F-98.3 F 55-65 18-20 128-166/52-66 96 Gen: less tachypneic Heart: RRR Lung: less rhonchi, wheezes Abd: soft, nontender Ext: no edema CBC, BMP 02/05/18 06:15 02/05/18 06:15 Active Medications Al Hydroxide/Mg Hydroxide (Mylanta Oral Suspension -) 30 ml PO Q6H PRN PRN Reason: DYSPEPSIA Albuterol Sulfate (Ventolin 0.083% Nebulizer Soln -) 1 amp NEB Q4H PRN PRN Reason: SHORT OF BREATH/WHEEZING Last Admin: 02/02/18 03:10 Dose: 1 amp Albuterol Sulfate (Ventolin 0.083% Nebulizer Soln -) 1 amp NEB RQID [facility] Last Admin: 02/05/18 07:33 Dose: 1 amp Azithromycin (Zithromax -) 250 mg PO DAILY [facility] Last Admin: 02/04/18 10:17 Dose: 250 mg Brimonidine Tartrate (Alphagan 0.2% -) 1 drop OD BID [facility] Last Admin: 02/04/18 22:19 Dose: 1 drop Budesonide/Formoterol Fumarate (Symbicort 160/4.5mcg -) 2 puff IH BID [facility] Last Admin: 02/04/18 22:16 Dose: 2 puff Bupropion HCl (Wellbutrin Xl -) 300 mg PO DAILY [facility] Last Admin: 02/04/18 10:20 Dose: 300 mg Carbidopa/Levodopa (Sinemet 25/100 -) 1 each PO TID [facility] Last Admin: 02/05/18 07:25 Dose: 1 each Cholecalciferol (Vitamin D3 -) 1,000 unit PO DAILY [facility] Last Admin: 02/04/18 10:17 Dose: 1,000 unit Citalopram Hydrobromide (Celexa -) 10 mg PO DAILY [facility] Last Admin: 02/04/18 10:19 Dose: 10 mg Digoxin (Lanoxin -) 0.25 mg PO DAILY [facility] Last Admin: 02/04/18 10:17 Dose: 0.25 mg Docusate Sodium (Colace -) 300 mg PO HS [facility] Last Admin: 02/04/18 22:13 Dose: 300 mg Ferrous Sulfate (Feosol -) 325 mg PO DAILY [facility] Last Admin: 02/04/18 10:16 Dose: 325 mg Guaifenesin/Codeine Phosphate (Robitussin Ac -) 5 ml PO Q6H PRN PRN Reason: COUGH Last Admin: 02/04/18 22:28 Dose: 5 ml Insulin Aspart (Novolog Vial Sliding Scale -) 1 vial SQ TIDAC [facility]; Protocol Last Admin: 02/05/18 07:26 Dose: 6 unit Insulin Detemir (Levemir Vial) 40 units SQ AM [facility] Last Admin: 02/05/18 07:26 Dose: 40 unit Ketorolac Tromethamine (Ketorolac 0.5% Eye Drop) 1 drop OD TID [facility] Last Admin: 02/05/18 07:25 Dose: 1 drop Loratadine (Claritin -) 10 mg PO DAILY [facility] Last Admin: 02/04/18 10:17 Dose: 10 mg Methylprednisolone Sodium Succinate (Solu-Medrol -) 40 mg IVPUSH Q6H-IV [facility] Last Admin: 02/05/18 03:14 Dose: 40 mg Oxycodone HCl (Roxicodone -) 5 mg PO Q6H PRN PRN Reason: PAIN 7-10 Last Admin: 02/04/18 23:45 Dose: 5 mg Pantoprazole Sodium (Protonix -) 40 mg PO DAILY [facility] Last Admin: 02/04/18 10:18 Dose: 40 mg Polyethylene Glycol (Miralax (For Daily Use) -) 17 gm PO DAILY [facility] Last Admin: 02/04/18 10:19 Dose: 17 gm Pramipexole Dihydrochloride (Mirapex -) 0.5 mg PO TID [facility] Last Admin: 02/05/18 07:25 Dose: 0.5 mg Ranolazine (Ranexa -) 500 mg PO BID [facility] Last Admin: 02/04/18 22:13 Dose: 500 mg Senna (Senna -) 1 tab PO BID [facility] Last Admin: 02/04/18 22:14 Dose: 1 tab Tiotropium [place] (Spiriva Respimat) 2 puff IH DAILY [facility] Last Admin: 02/04/18 10:23 Dose: 2 puff Topiramate (Topamax -) 150 mg PO BID [facility] Last Admin: 02/04/18 22:14 Dose: 150 mg Torsemide (Demadex -) 40 mg PO DAILY [facility] Last Admin: 02/04/18 10:18 Dose: 40 mg Triamcinolone Acetonide (Aristocort 0.1% Cream -) 1 applic TP BID [facility] Last Admin: 02/04/18 22:19 Dose: 1 applic Verapamil HCl (Calan Sr -) 240 mg PO DAILY [facility] Last Admin: 02/04/18 09:59 Dose: 240 mg Warfarin Sodium (Coumadin -) 9 mg PO DAILY@1800 [facility] Last Admin: 02/04/18 17:18 Dose: 9 mg A/P Acute COPD Exacerbation Chronic Hypoxic Respiratory Failure Obstructive Sleep Apnea LV Diastolic Dysfunction CAD h/o MVR Atrial Fibrillation HTN DM Hyperlipidemia Lupus UTI - will decrease medrol to q8h - inhaled bronchodilators - O2 to keep Spo2 >90% - CPAP at night - rate control - continue anticoagulation - cough suppressants - chest PT Problem List - Problems (1) COPD exacerbation Code(s): J44.1 - CHRONIC OBSTRUCTIVE PULMONARY DISEASE W (ACUTE) EXACERBATION (2) Afib Code(s): I48.91 - UNSPECIFIED ATRIAL FIBRILLATION Qualifiers: Atrial fibrillation type: paroxysmal Qualified Code(s): I48.0 - Paroxysmal atrial fibrillation (3) CAD (coronary artery disease) Code(s): I25.10 - ATHSCL HEART DISEASE OF [place] CORONARY ARTERY W/O ANG PCTRS (4) CHF (congestive heart failure) Code(s): I50.9 - HEART FAILURE, UNSPECIFIED (5) Diabetes Code(s): E11.9 - TYPE 2 DIABETES MELLITUS WITHOUT COMPLICATIONS Qualifiers: Diabetes mellitus type: type 2 Diabetes mellitus complication status: with neurologic complications (6) HTN (hypertension) Code(s): I10 - ESSENTIAL (PRIMARY) HYPERTENSION Qualifiers: Hypertension type: essential hypertension Qualified Code(s): I10 - Essential (primary) hypertension (7) Lupus Code(s): L93.0 - DISCOID LUPUS ERYTHEMATOSUS (8) FIGUEROA (obstructive sleep apnea) Code(s): G47.33 - OBSTRUCTIVE SLEEP APNEA (ADULT) (PEDIATRIC)
[2018-02-05] MEDS: RANOLAZINE E.R. 500 MG TABLET (FP) PO SCH ×2 (10:36→21:29)
[2018-02-05] MEDS: guaiFENesin/CODEINE 5 ML UNIT-DOSE CUPS PO PRN ×2 (10:36→19:59)
[2018-02-05] MEDS: SENNOSIDES 8.6MG TABLET (FP) PO SCH ×2 (10:36→21:29)
[2018-02-05] MEDS: FERROUS SO4 325 MG TABLET (FP) PO SCH (10:36)
[2018-02-05] MEDS: AZITHROMYCIN 250 MG TABLET PO SCH (10:36)
[2018-02-05] MEDS: VERAPAMIL HCL 240 MG E.R. TABLET (FP) PO SCH (10:37)
[2018-02-05] MEDS: TOPIRAMATE 100 MG TABLET PO SCH ×2 (10:37→22:31)
[2018-02-05] MEDS: LORATADINE 10 MG TABLET PO SCH (10:37)
[2018-02-05] MEDS: PANTOPRAZOLE 40 MG TABLET (FP) PO SCH (10:37)
[2018-02-05] MEDS: DIGOXIN 0.25 MG TABLET (FP) PO SCH (10:38)
[2018-02-05] MEDS: BUDESONIDE/FORMETEROL FUMARATE 160/4.5 mcg INHALER IH SCH ×2 (10:52→21:42)
[2018-02-05] MEDS: TRIAMCINOLONE ACET 0.1% CREAM 15 GM TUBE TP SCH ×2 (10:52→21:42)
[2018-02-05] MEDS: BRIMONIDINE TARTRATE 0.2% OPHTHALMIC 5 ML BOTTLE OD SCH ×2 (10:52→21:43)
[2018-02-05] MEDS: TIOTROPIUM BROMIDE 2.5 MCG (SPIRIVA) RESPIMAT INHALER IH SCH (10:52)
[2018-02-05] MEDS: CITALOPRAM HYDROBROMIDE 10 MG TABLET (FP) PO SCH (10:54)
[2018-02-05] MEDS: TORSEMIDE 20 MG TABLET (FP) PO SCH (10:56)
[2018-02-05] MEDS: POLYETHYLENE GLYCOL 3350 119 GM BTL PO SCH (10:56)
[2018-02-05] MEDS: CHOLECALCIFEROL (VITAMIN D3) 1,000 UNIT TABLET (FP) PO SCH (11:20)
--- NOTE | 2018-02-05 14:52 | PN ---
Progress Note, Physician Chief Complaint: AWAKE ALERT FEELING BETTER STILL COUGHING AND SOB - Current Medication List Current Medications: Active Medications Al Hydroxide/Mg Hydroxide (Mylanta Oral Suspension -) 30 ml PO Q6H PRN PRN Reason: DYSPEPSIA Albuterol Sulfate (Ventolin 0.083% Nebulizer Soln -) 1 amp NEB Q4H PRN PRN Reason: SHORT OF BREATH/WHEEZING Last Admin: 02/02/18 03:10 Dose: 1 amp Albuterol Sulfate (Ventolin 0.083% Nebulizer Soln -) 1 amp NEB RQID [facility] Last Admin: 02/05/18 07:33 Dose: 1 amp Azithromycin (Zithromax -) 250 mg PO DAILY [facility] Last Admin: 02/05/18 10:36 Dose: 250 mg Brimonidine Tartrate (Alphagan 0.2% -) 1 drop OD BID [facility] Last Admin: 02/05/18 10:52 Dose: 1 drop Budesonide/Formoterol Fumarate (Symbicort 160/4.5mcg -) 2 puff IH BID [facility] Last Admin: 02/05/18 10:52 Dose: 2 puff Bupropion HCl (Wellbutrin Xl -) 300 mg PO DAILY [facility] Last Admin: 02/05/18 10:39 Dose: 300 mg Carbidopa/Levodopa (Sinemet 25/100 -) 1 each PO TID [facility] Last Admin: 02/05/18 14:22 Dose: 1 each Cholecalciferol (Vitamin D3 -) 1,000 unit PO DAILY [facility] Last Admin: 02/05/18 11:20 Dose: 1,000 unit Citalopram Hydrobromide (Celexa -) 10 mg PO DAILY [facility] Last Admin: 02/05/18 10:54 Dose: 10 mg Digoxin (Lanoxin -) 0.25 mg PO DAILY [facility] Last Admin: 02/05/18 10:38 Dose: 0.25 mg Docusate Sodium (Colace -) 300 mg PO HS [facility] Last Admin: 02/04/18 22:13 Dose: 300 mg Ferrous Sulfate (Feosol -) 325 mg PO DAILY [facility] Last Admin: 02/05/18 10:36 Dose: 325 mg Guaifenesin/Codeine Phosphate (Robitussin Ac -) 5 ml PO Q6H PRN PRN Reason: COUGH Last Admin: 02/05/18 10:36 Dose: 5 ml Insulin Aspart (Novolog Vial Sliding Scale -) 1 vial SQ TIDAC [facility]; Protocol Last Admin: 02/05/18 11:53 Dose: 6 unit Insulin Detemir (Levemir Vial) 40 units SQ AM [facility] Last Admin: 02/05/18 07:26 Dose: 40 unit Ketorolac Tromethamine (Ketorolac 0.5% Eye Drop) 1 drop OD TID [facility] Last Admin: 02/05/18 14:23 Dose: 1 drop Loratadine (Claritin -) 10 mg PO DAILY [facility] Last Admin: 02/05/18 10:37 Dose: 10 mg Methylprednisolone Sodium Succinate (Solu-Medrol -) 40 mg IVPUSH Q8H [facility] Oxycodone HCl (Roxicodone -) 5 mg PO Q6H PRN PRN Reason: PAIN 7-10 Last Admin: 02/04/18 23:45 Dose: 5 mg Pantoprazole Sodium (Protonix -) 40 mg PO DAILY [facility] Last Admin: 02/05/18 10:37 Dose: 40 mg Polyethylene Glycol (Miralax (For Daily Use) -) 17 gm PO DAILY [facility] Last Admin: 02/05/18 10:56 Dose: 17 gm Pramipexole Dihydrochloride (Mirapex -) 0.5 mg PO TID [facility] Last Admin: 02/05/18 14:22 Dose: 0.5 mg Ranolazine (Ranexa -) 500 mg PO BID [facility] Last Admin: 02/05/18 10:36 Dose: 500 mg Senna (Senna -) 1 tab PO BID [facility] Last Admin: 02/05/18 10:36 Dose: 1 tab Tiotropium [place] (Spiriva Respimat) 2 puff IH DAILY [facility] Last Admin: 02/05/18 10:52 Dose: 2 puff Topiramate (Topamax -) 150 mg PO BID [facility] Last Admin: 02/05/18 10:37 Dose: 150 mg Torsemide (Demadex -) 40 mg PO DAILY [facility] Last Admin: 02/05/18 10:56 Dose: 40 mg Triamcinolone Acetonide (Aristocort 0.1% Cream -) 1 applic TP BID [facility] Last Admin: 02/05/18 10:52 Dose: 1 applic Verapamil HCl (Calan Sr -) 240 mg PO DAILY [facility] Last Admin: 02/05/18 10:37 Dose: 240 mg Warfarin Sodium (Coumadin -) 9 mg PO DAILY@1800 [facility] Last Admin: 02/04/18 17:18 Dose: 9 mg - Objective Vital Signs: Vital Signs Temperature 97.4 F L 02/05/18 06:00 Pulse Rate 64 02/05/18 10:38 Respiratory Rate 20 02/05/18 06:00 Blood Pressure 166/66 02/05/18 06:00 O2 Sat by Pulse Oximetry (%) 96 02/04/18 20:59 Constitutional: Yes: Mild Distress Eyes: Yes: WNL HENT: Yes: WNL Neck: Yes: WNL Cardiovascular: Yes: Tachycardia Respiratory: Yes: Cough, On Nasal O2, Rhonchi Gastrointestinal: Yes: WNL Genitourinary: Yes: Incontinence Musculoskeletal: Yes: Muscle Weakness Edema: Yes Edema: LLE: Trace, RLE: Trace Peripheral Pulses WNL: Yes Integumentary: Yes: WNL Wound/Incision: Yes: Clean/Dry Neurological: Yes: WNL ...Motor Strength: WNL Psychiatric: Yes: WNL Labs: CBC, BMP 02/05/18 06:15 02/05/18 06:15 INR, PTT INR 2.32 (0.83-1.09) H 02/04/18 06:30 Problem List - Problems (1) COPD exacerbation Code(s): J44.1 - CHRONIC OBSTRUCTIVE PULMONARY DISEASE W (ACUTE) EXACERBATION (2) Chest pain Code(s): R07.9 - CHEST PAIN, UNSPECIFIED Qualifiers: Chest pain type: unspecified Qualified Code(s): R07.9 - Chest pain, unspecified (3) SOB (shortness of breath) Code(s): R06.02 - SHORTNESS OF BREATH (4) Abdominal pain, vomiting, and diarrhea Code(s): R10.9 - UNSPECIFIED ABDOMINAL PAIN; R11.10 - VOMITING, UNSPECIFIED; R19.7 - DIARRHEA, UNSPECIFIED (5) Acute bilateral low back pain Code(s): M54.5 - LOW BACK PAIN (6) Afib Code(s): I48.91 - UNSPECIFIED ATRIAL FIBRILLATION Qualifiers: Atrial fibrillation type: paroxysmal Qualified Code(s): I48.0 - Paroxysmal atrial fibrillation (7) Asthma exacerbation in COPD Code(s): J44.1 - CHRONIC OBSTRUCTIVE PULMONARY DISEASE W (ACUTE) EXACERBATION; J45.901 - UNSPECIFIED ASTHMA WITH (ACUTE) EXACERBATION (8) CAD (coronary artery disease) Code(s): I25.10 - ATHSCL HEART DISEASE OF [place] CORONARY ARTERY W/O ANG PCTRS (9) Cough Code(s): R05 - COUGH (10) Diabetes Code(s): E11.9 - TYPE 2 DIABETES MELLITUS WITHOUT COMPLICATIONS Qualifiers: Diabetes mellitus type: type 2 Diabetes mellitus complication status: with neurologic complications (11) Dyslipidemia Code(s): E78.5 - HYPERLIPIDEMIA, UNSPECIFIED (12) Fibromyalgia Code(s): M79.7 - FIBROMYALGIA Assessment/Plan CONTINUE AZITHROMYCIN NEBS STEROIDS DVT PROPHLAXIS ON COUMADIN INR THERAPEUTIC OOB TO CHAIR ON ISOLATION 02 SUPPORT DUDLEY F/U
[2018-02-05] MEDS: WARFARIN NA 3 MG TABLET PO SCH (17:29)
[2018-02-05] MEDS ORDERED: PT OWN MED DRAWER 7, Y5N ONE (20:58)
[2018-02-05] MEDS: DOCUSATE SODIUM 100 MG CAPSULE (FP) PO SCH (21:29)
[2018-02-06] MEDS: ALBUTEROL SO4 0.083% IH SOL 2.5 MG/3 ML VIAL.NEB. NEB PRN (00:41)
[2018-02-06] MEDS: methylPREDNISolone NA SUCC 40 MG/1 ML VIAL IVPUSH SCH ×3 (02:43→17:32)
[2018-02-06] MEDS ORDERED: PT OWN MED DRAWER 7, Y5N ONE ×3 (05:53→21:48)
[2018-02-06] MEDS: KETOROLAC TROMETHAMINE 0.5% EYE DROP 1 DROP DROPS OD SCH ×3 (06:23→21:59)
[2018-02-06] MEDS: CARBIDOPA/LEVODOPA 25/100 TABLET (FP) PO SCH ×3 (06:23→21:56)
[2018-02-06] MEDS: INSULIN (LEVEMIR) 100 UNITS/ML UNITS SQ SCH (06:23)
[2018-02-06] MEDS: PRAMIPEXOLE DIHYDROCHLORIDE 0.5 MG TABLET PO SCH ×3 (06:23→22:00)
[2018-02-06] MEDS: INSULIN SLIDING SCALE (NOVOLOG) 1 VIAL SQ SCH ×3 (06:24→17:30)
[2018-02-06] MEDS: guaiFENesin/CODEINE 5 ML UNIT-DOSE CUPS PO PRN ×2 (06:24→20:42)
[2018-02-06] MEDS: oxyCODONE HCL 5 MG TABLET PO PRN (06:24)
[2018-02-06] MEDS: ALBUTEROL SO4 0.083% IH SOL 2.5 MG/3 ML VIAL.NEB. NEB SCH ×4 (08:05→20:17)
[2018-02-06 08:19] LABS: INR 2.85 (0.83-1.09)
[2018-02-06] MEDS: DIGOXIN 0.25 MG TABLET (FP) PO SCH (10:15)
[2018-02-06] MEDS: CHOLECALCIFEROL (VITAMIN D3) 1,000 UNIT TABLET (FP) PO SCH (10:15)
[2018-02-06] MEDS: SENNOSIDES 8.6MG TABLET (FP) PO SCH ×2 (10:15→21:56)
[2018-02-06] MEDS: FERROUS SO4 325 MG TABLET (FP) PO SCH (10:15)
[2018-02-06] MEDS: PANTOPRAZOLE 40 MG TABLET (FP) PO SCH (10:15)
[2018-02-06] MEDS: VERAPAMIL HCL 240 MG E.R. TABLET (FP) PO SCH (10:16)
[2018-02-06] MEDS: TOPIRAMATE 100 MG TABLET PO SCH ×2 (10:16→22:02)
[2018-02-06] MEDS: LORATADINE 10 MG TABLET PO SCH (10:16)
[2018-02-06] MEDS: CITALOPRAM HYDROBROMIDE 10 MG TABLET (FP) PO SCH (10:16)
[2018-02-06] MEDS: AZITHROMYCIN 250 MG TABLET PO SCH (10:17)
[2018-02-06] MEDS: POLYETHYLENE GLYCOL 3350 119 GM BTL PO SCH (10:19)
[2018-02-06] MEDS: RANOLAZINE E.R. 500 MG TABLET (FP) PO SCH ×2 (10:22→21:56)
[2018-02-06] MEDS: TORSEMIDE 20 MG TABLET (FP) PO SCH (10:24)
[2018-02-06] MEDS: BUDESONIDE/FORMETEROL FUMARATE 160/4.5 mcg INHALER IH SCH ×2 (10:29→22:02)
[2018-02-06] MEDS: TIOTROPIUM BROMIDE 2.5 MCG (SPIRIVA) RESPIMAT INHALER IH SCH (10:30)
[2018-02-06] MEDS: BRIMONIDINE TARTRATE 0.2% OPHTHALMIC 5 ML BOTTLE OD SCH ×2 (11:24→21:59)
[2018-02-06] MEDS: TRIAMCINOLONE ACET 0.1% CREAM 15 GM TUBE TP SCH ×2 (11:26→21:59)
--- NOTE | 2018-02-06 13:55 | PN ---
Progress Note, Physician History of Present Illness: pulmonary alert,less dyspneic,+ cough - Current Medication List Current Medications: Active Medications Al Hydroxide/Mg Hydroxide (Mylanta Oral Suspension -) 30 ml PO Q6H PRN PRN Reason: DYSPEPSIA Albuterol Sulfate (Ventolin 0.083% Nebulizer Soln -) 1 amp NEB Q4H PRN PRN Reason: SHORT OF BREATH/WHEEZING Last Admin: 02/06/18 00:41 Dose: 1 amp Albuterol Sulfate (Ventolin 0.083% Nebulizer Soln -) 1 amp NEB RQID [facility] Last Admin: 02/06/18 13:15 Dose: 1 amp Azithromycin (Zithromax -) 250 mg PO DAILY [facility] Last Admin: 02/06/18 10:17 Dose: 250 mg Brimonidine Tartrate (Alphagan 0.2% -) 1 drop OD BID [facility] Last Admin: 02/06/18 11:24 Dose: 1 drop Budesonide/Formoterol Fumarate (Symbicort 160/4.5mcg -) 2 puff IH BID [facility] Last Admin: 02/06/18 10:29 Dose: 2 puff Bupropion HCl (Wellbutrin Xl -) 300 mg PO DAILY [facility] Last Admin: 02/06/18 10:18 Dose: 300 mg Carbidopa/Levodopa (Sinemet 25/100 -) 1 each PO TID [facility] Last Admin: 02/06/18 06:23 Dose: 1 each Cholecalciferol (Vitamin D3 -) 1,000 unit PO DAILY [facility] Last Admin: 02/06/18 10:15 Dose: 1,000 unit Citalopram Hydrobromide (Celexa -) 10 mg PO DAILY [facility] Last Admin: 02/06/18 10:16 Dose: 10 mg Digoxin (Lanoxin -) 0.25 mg PO DAILY [facility] Last Admin: 02/06/18 10:15 Dose: 0.25 mg Docusate Sodium (Colace -) 300 mg PO HS [facility] Last Admin: 02/05/18 21:29 Dose: 300 mg Ferrous Sulfate (Feosol -) 325 mg PO DAILY [facility] Last Admin: 02/06/18 10:15 Dose: 325 mg Guaifenesin/Codeine Phosphate (Robitussin Ac -) 5 ml PO Q6H PRN PRN Reason: COUGH Last Admin: 02/06/18 06:24 Dose: 5 ml Insulin Aspart (Novolog Vial Sliding Scale -) 1 vial SQ TIDAC [facility]; Protocol Last Admin: 02/06/18 11:22 Dose: 2 unit Insulin Detemir (Levemir Vial) 40 units SQ AM [facility] Last Admin: 02/06/18 06:23 Dose: 40 unit Ketorolac Tromethamine (Ketorolac 0.5% Eye Drop) 1 drop OD TID [facility] Last Admin: 02/06/18 06:23 Dose: 1 drop Loratadine (Claritin -) 10 mg PO DAILY [facility] Last Admin: 02/06/18 10:16 Dose: 10 mg Methylprednisolone Sodium Succinate (Solu-Medrol -) 40 mg IVPUSH Q8H [facility] Last Admin: 02/06/18 10:23 Dose: 40 mg Oxycodone HCl (Roxicodone -) 5 mg PO Q6H PRN PRN Reason: PAIN 7-10 Last Admin: 02/06/18 06:24 Dose: 5 mg Pantoprazole Sodium (Protonix -) 40 mg PO DAILY [facility] Last Admin: 02/06/18 10:15 Dose: 40 mg Polyethylene Glycol (Miralax (For Daily Use) -) 17 gm PO DAILY [facility] Last Admin: 02/06/18 10:19 Dose: 17 gm Pramipexole Dihydrochloride (Mirapex -) 0.5 mg PO TID [facility] Last Admin: 02/06/18 06:23 Dose: 0.5 mg Ranolazine (Ranexa -) 500 mg PO BID [facility] Last Admin: 02/06/18 10:22 Dose: 500 mg Senna (Senna -) 1 tab PO BID [facility] Last Admin: 02/06/18 10:15 Dose: 1 tab Tiotropium [place] (Spiriva Respimat) 2 puff IH DAILY [facility] Last Admin: 02/06/18 10:30 Dose: 2 puff Topiramate (Topamax -) 150 mg PO BID [facility] Last Admin: 02/06/18 10:16 Dose: 150 mg Torsemide (Demadex -) 40 mg PO DAILY PENDING SALE TO [facility] Last Admin: 02/06/18 10:24 Dose: 40 mg Triamcinolone Acetonide (Aristocort 0.1% Cream -) 1 applic TP BID PENDING SALE TO [facility] Last Admin: 02/06/18 11:26 Dose: 1 applic Verapamil HCl (Calan Sr -) 240 mg PO DAILY PENDING SALE TO [facility] Last Admin: 02/06/18 10:16 Dose: 240 mg Warfarin Sodium (Coumadin -) 9 mg PO DAILY@1800 PENDING SALE TO [facility] Last Admin: 02/05/18 17:29 Dose: 9 mg - Objective Vital Signs: Vital Signs Temperature 98.4 F 02/06/18 10:00 Pulse Rate 70 02/06/18 10:15 Respiratory Rate 20 02/06/18 10:00 Blood Pressure 134/70 02/06/18 10:00 O2 Sat by Pulse Oximetry (%) 94 L 02/06/18 09:00 Constitutional: Yes: Well Nourished, Calm Eyes: Yes: WNL HENT: Yes: WNL Neck: Yes: WNL Cardiovascular: Yes: Pulse Irregular, S1, S2 Respiratory: Yes: Wheezes (scattered [place]tonia wheezes) Gastrointestinal: Yes: Normal Bowel Sounds, Soft Extremities: Yes: WNL Edema: No Labs: CBC, BMP INR, PTT INR 2.85 (0.83-1.09) H 02/06/18 07:10 Assessment/Plan Problem List - Problems (1) COPD exacerbation Code(s): J44.1 - CHRONIC OBSTRUCTIVE PULMONARY DISEASE W (ACUTE) EXACERBATION (2) Afib Code(s): I48.91 - UNSPECIFIED ATRIAL FIBRILLATION Qualifiers: Atrial fibrillation type: paroxysmal Qualified Code(s): I48.0 - Paroxysmal atrial fibrillation (3) CAD (coronary artery disease) Code(s): I25.10 - ATHSCL HEART DISEASE OF [place] CORONARY ARTERY W/O ANG PCTRS (4) CHF (congestive heart failure) Code(s): I50.9 - HEART FAILURE, UNSPECIFIED (5) Diabetes Code(s): E11.9 - TYPE 2 DIABETES MELLITUS WITHOUT COMPLICATIONS Qualifiers: Diabetes mellitus type: type 2 Diabetes mellitus complication status: with neurologic complications (6) HTN (hypertension) Code(s): I10 - ESSENTIAL (PRIMARY) HYPERTENSION Qualifiers: Hypertension type: essential hypertension Qualified Code(s): I10 - Essential (primary) hypertension (7) Lupus Code(s): L93.0 - DISCOID LUPUS ERYTHEMATOSUS (8) FIGUEROA (obstructive sleep apnea) Code(s): G47.33 - OBSTRUCTIVE SLEEP APNEA (ADULT) (PEDIATRIC) Assessment/Plan Acute COPD Exacerbation Chronic Hypoxic Respiratory Failure Obstructive Sleep Apnea LV Diastolic Dysfunction CAD h/o MVR Atrial Fibrillation HTN DM Hyperlipidemia Lupus UTI - antibiotics for UTI - IV medrol q8h - inhaled bronchodilators - O2 to keep Spo2 >90% - CPAP at night - rate control - anticoagulation - robitussin ac DR IVERSON
--- NOTE | 2018-02-06 14:04 | PN ---
Progress Note (short form) - Note Progress Note: s: no palps, loc. sob and cough present but slowly improving; cp with coughing/ deep breaths Current Medications Generic Name Dose Route Start Last Admin Trade Name Freq PRN Reason Stop Dose Admin Al Hydroxide/Mg Hydroxide 30 ml 02/04/18 08:53 Mylanta Oral Suspension - PO Q6H PRN DYSPEPSIA Albuterol Sulfate 1 amp 01/29/18 19:53 02/06/18 00:41 Ventolin 0.083% Nebulizer Soln - NEB 1 amp Q4H PRN Administration SHORT OF BREATH/WHEEZING Albuterol Sulfate 1 amp 01/30/18 16:00 02/06/18 13:15 Ventolin 0.083% Nebulizer Soln - NEB 1 amp RQID CHRIS Administration Azithromycin 250 mg 02/01/18 10:00 02/06/18 10:17 Zithromax - PO 250 mg DAILY CHRIS Administration Brimonidine Tartrate 1 drop 01/31/18 10:15 02/06/18 11:24 Alphagan 0.2% - OD 1 drop BID CHRIS Administration Budesonide/Formoterol Fumarate 2 puff 01/29/18 22:00 02/06/18 10:29 Symbicort 160/4.5mcg - IH 2 puff BID CHRIS Administration Bupropion HCl 300 mg 01/30/18 10:00 02/06/18 10:18 Wellbutrin Xl - PO 300 mg DAILY CHRIS Administration Carbidopa/Levodopa 1 each 01/29/18 22:00 02/06/18 06:23 Sinemet 25/100 - PO 1 each TID CHRIS Administration Cholecalciferol 1,000 unit 01/30/18 10:00 02/06/18 10:15 Vitamin D3 - PO 1,000 unit DAILY CH[facility]IS Administration Citalopram Hydrobromide 10 mg 01/30/18 10:00 02/06/18 10:16 Celexa - PO 10 mg DAILY CHRIS Administration Digoxin 0.25 mg 01/30/18 10:00 02/06/18 10:15 Lanoxin - PO 0.25 mg DAILY CHRIS Administration Docusate Sodium 300 mg 01/29/18 22:00 02/05/18 21:29 Colace - PO 300 mg HS CHRIS Administration Ferrous Sulfate 325 mg 01/30/18 10:00 02/06/18 10:15 Feosol - PO 325 mg DAILY CHRIS Administration Guaifenesin/Codeine Phosphate 5 ml 02/03/18 13:21 02/06/18 06:24 Robitussin Ac - PO 5 ml Q6H PRN Administration COUGH Insulin Aspart 1 vial 01/30/18 07:00 02/06/18 11:22 Novolog Vial Sliding Scale - SQ 2 unit TIDAC CHRIS Administration Protocol Insulin Detemir 40 units 01/30/18 07:00 02/06/18 06:23 Levemir Vial SQ 40 unit AM CHRIS Administration Ketorolac Tromethamine 1 drop 01/31/18 14:00 02/06/18 06:23 Ketorolac 0.5% Eye Drop OD 1 drop TID CHRIS Administration Loratadine 10 mg 01/30/18 10:00 02/06/18 10:16 Claritin - PO 10 mg DAILY CHRIS Administration Methylprednisolone Sodium Succinate 40 mg 02/05/18 18:00 02/06/18 10:23 Solu-Medrol - IVPUSH 40 mg Q8H CHRIS Administration Oxycodone HCl 5 mg 01/29/18 20:01 02/06/18 06:24 Roxicodone - PO 5 mg Q6H PRN Administration PAIN 7-10 Pantoprazole Sodium 40 mg 01/30/18 10:00 02/06/18 10:15 Protonix - PO 40 mg DAILY CHRIS Administration Polyethylene Glycol 17 gm 01/31/18 10:30 02/06/18 10:19 Miralax (For Daily Use) - PO 17 gm DAILY CHRIS Administration Pramipexole Dihydrochloride 0.5 mg 01/29/18 22:00 02/06/18 06:23 Mirapex - PO 0.5 mg TID CHRIS Administration Ranolazine 500 mg 01/29/18 22:00 02/06/18 10:22 Ranexa - PO 500 mg BID CHRIS Administration Senna 1 tab 01/31/18 10:30 02/06/18 10:15 Senna - PO 1 tab BID CHRIS Administration Tiotropium [place] 2 puff 01/30/18 10:00 02/06/18 10:30 Spiriva Respimat IH 2 puff DAILY CHRIS Administration Topiramate 150 mg 01/29/18 22:00 02/06/18 10:16 Topamax - PO 150 mg BID CHRIS Administration Torsemide 40 mg 01/30/18 10:00 02/06/18 10:24 Demadex - PO 40 mg DAILY [facility]IS Administration Triamcinolone Acetonide 1 applic 01/29/18 22:00 02/06/18 11:26 Aristocort 0.1% Cream - TP 1 applic BID CHRIS Administration Verapamil HCl 240 mg 01/30/18 10:00 02/06/18 10:16 Calan Sr - PO 240 mg DAILY [facility]IS Administration Warfarin Sodium 9 mg 01/30/18 18:00 02/05/18 17:29 Coumadin - PO 9 mg DAILY@1800 [facility] Administration Vital Signs Period Temp Pulse Resp BP Sys/Wise Pulse Ox Last 24 Hr 98.1 F-98.4 F 61-70 20-22 111-139/58-70 91-94 nad no jvd rrr s1s2 no mrg b/l exp wheeze, nl eff aaox3 no le e/c/c no jaundice diaphoresis abd nt pos bs, nd +reproducible chest wall pain (chronic) Laboratory Last Values WBC 16.9 K/mm3 (4.0-10.0) H 02/05/18 06:15 RBC 4.46 M/mm3 (3.60-5.2) 02/05/18 06:15 Hgb 12.0 GM/dL (10.7-15.3) 02/05/18 06:15 Hct 38.9 % (32.4-45.2) 02/05/18 06:15 MCV 87.4 fl (80-96) 02/05/18 06:15 MCH 27.0 pg (25.7-33.7) 02/05/18 06:15 MCHC 30.9 g/dl (32.0-36.0) L 02/05/18 06:15 RDW 15.7 % (11.6-15.6) H 02/05/18 06:15 Plt Count 246 K/MM3 (134-434) 02/05/18 06:15 MPV 9.9 fl (7.5-11.1) 02/05/18 06:15 Absolute Neuts (auto) 11.7 K/mm3 (1.5-8.0) H 01/29/18 17:07 Neutrophils % 91.2 % (42.8-82.8) H D 01/29/18 17:07 Neutrophils % (Manual) 93.0 % (42.8-82.8) H 01/29/18 17:07 Band Neutrophils % 0.0 % 01/29/18 17:07 Lymphocytes % 4.7 % (8-40) L D 01/29/18 17:07 Lymphocytes % (Manual) 3.0 % (8-40) L D 01/29/18 17:07 Monocytes % 3.7 % (3.8-10.2) L 01/29/18 17:07 Monocytes % (Manual) 4 % (3.8-10.2) 01/29/18 17:07 Eosinophils % 0.0 % (0-4.5) D 01/29/18 17:07 Eosinophils % (Manual) 0.0 % (0-4.5) D 01/29/18 17:07 Basophils % 0.4 % (0-2.0) 01/29/18 17:07 Basophils % (Manual) 0.0 % (0-2.0) 01/29/18 17:07 Nucleated RBC % 0 % (0-0) 01/29/18 17:07 PT with INR 34.00 SEC (9.7-13.0) H 02/06/18 07:10 INR 2.85 (0.83-1.09) H 02/06/18 07:10 VBG pH 7.35 (7.32-7.42) 01/29/18 17:07 POC VBG pCO2 39.0 mmHg (38-52) 01/29/18 17:07 POC VBG pO2 56.0 mmHg (28-48) H 01/29/18 17:07 Mixed VBG HCO3 21.0 meq/L (19-25) 01/29/18 17:07 Sodium 134 mmol/L (136-145) L 02/05/18 06:15 Potassium 4.5 mmol/L (3.5-5.1) 02/05/18 06:15 Chloride 99 mmol/L (98-107) 02/05/18 06:15 Carbon Dioxide 26 mmol/L (21-32) 02/05/18 06:15 Anion Gap 9 MMOL/L (8-16) 02/05/18 06:15 BUN 39 mg/dL (7-18) H 02/05/18 06:15 Creatinine 1.1 mg/dL (0.55-1.3) 02/05/18 06:15 Creat Clearance w eGFR 49.69 (>60) 02/05/18 06:15 POC Glucometer 175 UNITS (80-120) 02/06/18 11:19 Random Glucose 307 mg/dL (74-106) H* 02/05/18 06:15 Calcium 8.6 mg/dL (8.5-10.1) 02/05/18 06:15 Phosphorus 3.3 mg/dL (2.5-4.9) 02/01/18 06:45 Magnesium 3.0 mg/dL (1.8-2.4) H 02/05/18 06:15 Total Bilirubin 0.3 mg/dL (0.2-1) 01/30/18 05:45 AST 13 U/L (15-37) L 01/30/18 05:45 ALT 22 U/L (13-61) 01/30/18 05:45 Alkaline Phosphatase 86 U/L (45-117) 01/30/18 05:45 Troponin I < 0.02 ng/ml (0.00-0.05) 01/30/18 07:28 Total Protein 7.1 g/dl (6.4-8.2) 01/30/18 05:45 Albumin 3.1 g/dl (3.4-5.0) L 01/30/18 05:45 Urine Color Yellow 01/29/18 19:37 Urine Appearance Slcloudy 01/29/18 19:37 Urine pH 5.0 (5.0-8.0) D 01/29/18 19:37 Ur Specific [place] 1.021 (1.010-1.035) 01/29/18 19:37 Urine Protein Negative (NEGATIVE) 01/29/18 19:37 Urine Glucose (UA) Negative (NEGATIVE) 01/29/18 19:37 Urine Ketones Negative (NEGATIVE) 01/29/18 19:37 Urine Blood Negative (NEGATIVE) 01/29/18 19:37 Urine Nitrite Negative (NEGATIVE) 01/29/18 19:37 Urine Bilirubin Negative (<2.0 mg/dL) 01/29/18 19:37 Urine Urobilinogen 2.0 mg/dL (0.2-1.0) H 01/29/18 19:37 Ur Leukocyte Esterase 3+ (NEGATIVE) H 01/29/18 19:37 Urine WBC (Auto) 22 /hpf (3-5) 01/29/18 19:37 Urine RBC (Auto) 13 /hpf (0-3) 01/29/18 19:37 Ur Epithelial Cells Moderate /HPF (FEW) 01/29/18 19:37 Urine Bacteria Rare /hpf (NONE SEEN) 01/29/18 19:37 Urine Mucus Few 01/29/18 19:37 Digoxin 1.07 ng/ml (0.8-2.0) 01/31/18 06:15 ecg 07/03/14: sr, nl intervals, no ischemic changes, no sig change from prior echo 04/2013: normal LV/RVF, normally functioning mech MVR Echo 11/2013; normal LV/RVF, normally functioning mech mitral valve, small peric effusion--unchanged from prev echo 06/2014: nl lv/rv, lae, normal fcn mech mvr, rvsp 30-40 echo 07/2015: tds; nl lv/rv, mild lae, nl mech mvr echo 10/2016: nl lv/rv, mild lae, nl mech mvr, small pericardial eff echo (sjh) 03/2017: nl lv/rv, nl mvr, mild as mibi 12/2013: no ischemia mibi 04/2016: no ecg changes, no ischemia/scar, nl lvef holter 08/2015: sr, benign study.eg cxr: no chf a/p: 67 year old lady with past medical history of COPD on home , FIGUEROA (on cpap at home), CAD (s/p single vessel CABG 2006 with RUSSELL to OM and ROSALINA x2 to LAD 12/2011; last cath 06/2014 showed patent RUSSELL, patent LAD stents, no sig residual dz except for 80-90% OM that is bypassed), mech mvr ([facility], 2006, on coumadin), anemia, TIA, dCHF, DM, HTN, pafib, antiphospholipid syndrome (on coumadin), fibromyalgia, migraines, chronic atypical cp, obesity, LBP here with sob, cough. sob, acute copd exacerbation: -no signs chf or acs, sxs likely from copd -cont steroids per pulm Atyp CP: -chronic recurrent sx for the pt, worsened now due to coughing from copd -MSK features, reproducible on exam -NST for this cp in 12/2013 and 04/2016 showed no ischemia and prior cath for this persistent cp 06/2014 showed patent graft and prior pci, no significant residual dz -current pain does not seem cardiac, likely due to fibromyalgia , coughing cad, s/p cabg, pci: -as above -normal lvef on recent echo, no anginal sxs -no bb due to copd, on verapamil instead -not on statin due to prior intolerance -cont ranexa for possible small vessel dz symptoms -given her epistaxis asa stopped as she is on ac. dizziness: -pt c/o some dizziness at times (not positional, occurs even when laying down still in bed). Persisted even with holding ranexa so not side effect related. Recent holter and echo unremarkable. Continued outpt f/u with neuro, ent. [facility] MVR: -on AC w/ coumadin, target INR 2.5 to 3.5, cont lovenox bridging while inr subtherapeutic -recent echo with normal [facility] mvr function Hx of mod pericardial effusion: -no effusion reported on recent echo HTN: Remains controlled on current meds. pafib: -rare episodes in past -remains in sr -recent holter showed sr only -continue verapamil and dig (level ok here) -cont ac with coumadin, has hx of TIA chronic HFpEF: -vol status has been stable on torsemide 40-80 qd. -baseline wt has been high 190lbs
--- NOTE | 2018-02-06 15:49 | PN ---
Progress Note, Physician Chief Complaint: AWAKE ALERT STILL COUGHING - Current Medication List Current Medications: Active Medications Al Hydroxide/Mg Hydroxide (Mylanta Oral Suspension -) 30 ml PO Q6H PRN PRN Reason: DYSPEPSIA Albuterol Sulfate (Ventolin 0.083% Nebulizer Soln -) 1 amp NEB Q4H PRN PRN Reason: SHORT OF BREATH/WHEEZING Last Admin: 02/06/18 00:41 Dose: 1 amp Albuterol Sulfate (Ventolin 0.083% Nebulizer Soln -) 1 amp NEB RQID [facility] Last Admin: 02/06/18 13:15 Dose: 1 amp Azithromycin (Zithromax -) 250 mg PO DAILY [facility] Last Admin: 02/06/18 10:17 Dose: 250 mg Brimonidine Tartrate (Alphagan 0.2% -) 1 drop OD BID [facility] Last Admin: 02/06/18 11:24 Dose: 1 drop Budesonide/Formoterol Fumarate (Symbicort 160/4.5mcg -) 2 puff IH BID [facility] Last Admin: 02/06/18 10:29 Dose: 2 puff Bupropion HCl (Wellbutrin Xl -) 300 mg PO DAILY [facility] Last Admin: 02/06/18 10:18 Dose: 300 mg Carbidopa/Levodopa (Sinemet 25/100 -) 1 each PO TID [facility] Last Admin: 02/06/18 14:17 Dose: 1 each Cholecalciferol (Vitamin D3 -) 1,000 unit PO DAILY [facility] Last Admin: 02/06/18 10:15 Dose: 1,000 unit Citalopram Hydrobromide (Celexa -) 10 mg PO DAILY [facility] Last Admin: 02/06/18 10:16 Dose: 10 mg Digoxin (Lanoxin -) 0.25 mg PO DAILY [facility] Last Admin: 02/06/18 10:15 Dose: 0.25 mg Docusate Sodium (Colace -) 300 mg PO HS [facility] Last Admin: 02/05/18 21:29 Dose: 300 mg Ferrous Sulfate (Feosol -) 325 mg PO DAILY [facility] Last Admin: 02/06/18 10:15 Dose: 325 mg Guaifenesin/Codeine Phosphate (Robitussin Ac -) 5 ml PO Q6H PRN PRN Reason: COUGH Last Admin: 02/06/18 06:24 Dose: 5 ml Insulin Aspart (Novolog Vial Sliding Scale -) 1 vial SQ TIDAC [facility]; Protocol Last Admin: 02/06/18 11:22 Dose: 2 unit Insulin Detemir (Levemir Vial) 40 units SQ AM [facility] Last Admin: 02/06/18 06:23 Dose: 40 unit Ketorolac Tromethamine (Ketorolac 0.5% Eye Drop) 1 drop OD TID [facility] Last Admin: 02/06/18 14:17 Dose: 1 drop Loratadine (Claritin -) 10 mg PO DAILY [facility] Last Admin: 02/06/18 10:16 Dose: 10 mg Methylprednisolone Sodium Succinate (Solu-Medrol -) 40 mg IVPUSH Q8H [facility] Last Admin: 02/06/18 10:23 Dose: 40 mg Oxycodone HCl (Roxicodone -) 5 mg PO Q6H PRN PRN Reason: PAIN 7-10 Last Admin: 02/06/18 06:24 Dose: 5 mg Pantoprazole Sodium (Protonix -) 40 mg PO DAILY [facility] Last Admin: 02/06/18 10:15 Dose: 40 mg Polyethylene Glycol (Miralax (For Daily Use) -) 17 gm PO DAILY [facility] Last Admin: 02/06/18 10:19 Dose: 17 gm Pramipexole Dihydrochloride (Mirapex -) 0.5 mg PO TID [facility] Last Admin: 02/06/18 14:17 Dose: 0.5 mg Ranolazine (Ranexa -) 500 mg PO BID [facility] Last Admin: 02/06/18 10:22 Dose: 500 mg Senna (Senna -) 1 tab PO BID [facility] Last Admin: 02/06/18 10:15 Dose: 1 tab Tiotropium [place] (Spiriva Respimat) 2 puff IH DAILY [facility] Last Admin: 02/06/18 10:30 Dose: 2 puff Topiramate (Topamax -) 150 mg PO BID [facility] Last Admin: 02/06/18 10:16 Dose: 150 mg Torsemide (Demadex -) 40 mg PO DAILY [facility] Last Admin: 02/06/18 10:24 Dose: 40 mg Triamcinolone Acetonide (Aristocort 0.1% Cream -) 1 applic TP BID [facility] Last Admin: 02/06/18 11:26 Dose: 1 applic Verapamil HCl (Calan Sr -) 240 mg PO DAILY [facility] Last Admin: 02/06/18 10:16 Dose: 240 mg Warfarin Sodium (Coumadin -) 9 mg PO DAILY@1800 [facility] Last Admin: 02/05/18 17:29 Dose: 9 mg - Objective Vital Signs: Vital Signs Temperature 98.2 F 02/06/18 14:44 Pulse Rate 69 02/06/18 14:44 Respiratory Rate 20 02/06/18 10:00 Blood Pressure 134/70 02/06/18 10:00 O2 Sat by Pulse Oximetry (%) 94 L 02/06/18 09:00 Constitutional: Yes: Mild Distress Eyes: Yes: WNL HENT: Yes: WNL Neck: Yes: WNL Cardiovascular: Yes: WNL Respiratory: Yes: Cough, On Nasal O2, Rhonchi Gastrointestinal: Yes: WNL Genitourinary: Yes: WNL Musculoskeletal: Yes: WNL Extremities: Yes: WNL Edema: No Peripheral Pulses WNL: Yes Integumentary: Yes: WNL Wound/Incision: Yes: Clean/Dry Neurological: Yes: WNL ...Motor Strength: WNL Psychiatric: Yes: WNL Labs: CBC, BMP 02/05/18 06:15 02/05/18 06:15 INR, PTT INR 2.85 (0.83-1.09) H 02/06/18 07:10 Problem List - Problems (1) COPD exacerbation Code(s): J44.1 - CHRONIC OBSTRUCTIVE PULMONARY DISEASE W (ACUTE) EXACERBATION (2) Chest pain Code(s): R07.9 - CHEST PAIN, UNSPECIFIED Qualifiers: Chest pain type: unspecified Qualified Code(s): R07.9 - Chest pain, unspecified (3) SOB (shortness of breath) Code(s): R06.02 - SHORTNESS OF BREATH (4) Abdominal pain, vomiting, and diarrhea Code(s): R10.9 - UNSPECIFIED ABDOMINAL PAIN; R11.10 - VOMITING, UNSPECIFIED; R19.7 - DIARRHEA, UNSPECIFIED (5) Acute bilateral low back pain Code(s): M54.5 - LOW BACK PAIN (6) Afib Code(s): I48.91 - UNSPECIFIED ATRIAL FIBRILLATION Qualifiers: Atrial fibrillation type: paroxysmal Qualified Code(s): I48.0 - Paroxysmal atrial fibrillation (7) Asthma exacerbation in COPD Code(s): J44.1 - CHRONIC OBSTRUCTIVE PULMONARY DISEASE W (ACUTE) EXACERBATION; J45.901 - UNSPECIFIED ASTHMA WITH (ACUTE) EXACERBATION (8) CAD (coronary artery disease) Code(s): I25.10 - ATHSCL HEART DISEASE OF [place] CORONARY ARTERY W/O ANG PCTRS (9) Cough Code(s): R05 - COUGH (10) Diabetes Code(s): E11.9 - TYPE 2 DIABETES MELLITUS WITHOUT COMPLICATIONS Qualifiers: Diabetes mellitus type: type 2 Diabetes mellitus complication status: with neurologic complications (11) Dyslipidemia Code(s): E78.5 - HYPERLIPIDEMIA, UNSPECIFIED (12) Fibromyalgia Code(s): M79.7 - FIBROMYALGIA Assessment/Plan STOP ABX NEBS STEROIDS DVT PROPHLAXIS ON COUMADIN INR THERAPEUTIC OOB TO CHAIR ON ISOLATION 02 SUPPORT PULM F/U
[2018-02-06] MEDS: WARFARIN NA 3 MG TABLET PO SCH (17:32)
[2018-02-06] MEDS ORDERED: FAMOTIDINE 20 MG/50 ML IVPB 20 MG/50 ML MG IVPB ONE (20:45)
[2018-02-06] MEDS: DOCUSATE SODIUM 100 MG CAPSULE (FP) PO SCH (21:56)
[2018-02-07] MEDS: ALBUTEROL SO4 0.083% IH SOL 2.5 MG/3 ML VIAL.NEB. NEB PRN (01:01)
[2018-02-07] MEDS: methylPREDNISolone NA SUCC 40 MG/1 ML VIAL IVPUSH SCH ×3 (02:56→17:01)
[2018-02-07] MEDS ORDERED: PT OWN MED DRAWER 7, Y5N ONE ×3 (04:00→09:31)
[2018-02-07] MEDS: PRAMIPEXOLE DIHYDROCHLORIDE 0.5 MG TABLET PO SCH ×3 (05:50→21:58)
[2018-02-07] MEDS: KETOROLAC TROMETHAMINE 0.5% EYE DROP 1 DROP DROPS OD SCH ×3 (05:50→22:04)
[2018-02-07] MEDS: CARBIDOPA/LEVODOPA 25/100 TABLET (FP) PO SCH ×3 (05:50→21:58)
[2018-02-07] MEDS: guaiFENesin/CODEINE 5 ML UNIT-DOSE CUPS PO PRN ×2 (05:50→21:22)
[2018-02-07] MEDS: INSULIN SLIDING SCALE (NOVOLOG) 1 VIAL SQ SCH ×3 (06:27→17:04)
[2018-02-07] MEDS: INSULIN (LEVEMIR) 100 UNITS/ML UNITS SQ SCH (06:27)
[2018-02-07] MEDS ORDERED: INSULIN (NOVOLOG) ASPART 100 UNITS/ML 10ML VIAL ONE ×2 (06:33→21:06)
[2018-02-07] MEDS: ALBUTEROL SO4 0.083% IH SOL 2.5 MG/3 ML VIAL.NEB. NEB SCH ×4 (07:20→20:15)
[2018-02-07] MEDS: VERAPAMIL HCL 240 MG E.R. TABLET (FP) PO SCH (09:38)
[2018-02-07] MEDS: LORATADINE 10 MG TABLET PO SCH (09:38)
[2018-02-07] MEDS: CHOLECALCIFEROL (VITAMIN D3) 1,000 UNIT TABLET (FP) PO SCH (09:38)
[2018-02-07] MEDS: SENNOSIDES 8.6MG TABLET (FP) PO SCH ×2 (09:38→21:59)
[2018-02-07] MEDS: TORSEMIDE 20 MG TABLET (FP) PO SCH (09:38)
[2018-02-07] MEDS: RANOLAZINE E.R. 500 MG TABLET (FP) PO SCH ×2 (09:39→21:59)
[2018-02-07] MEDS: FERROUS SO4 325 MG TABLET (FP) PO SCH (09:39)
[2018-02-07] MEDS: PANTOPRAZOLE 40 MG TABLET (FP) PO SCH ×2 (09:39→21:59)
[2018-02-07] MEDS: DIGOXIN 0.25 MG TABLET (FP) PO SCH (09:39)
[2018-02-07] MEDS: CITALOPRAM HYDROBROMIDE 10 MG TABLET (FP) PO SCH (09:40)
[2018-02-07] MEDS: TOPIRAMATE 100 MG TABLET PO SCH ×2 (09:40→21:59)
[2018-02-07] MEDS: TRIAMCINOLONE ACET 0.1% CREAM 15 GM TUBE TP SCH ×2 (09:42→22:03)
[2018-02-07] MEDS: BUDESONIDE/FORMETEROL FUMARATE 160/4.5 mcg INHALER IH SCH ×2 (09:43→22:03)
[2018-02-07] MEDS: TIOTROPIUM BROMIDE 2.5 MCG (SPIRIVA) RESPIMAT INHALER IH SCH (09:43)
[2018-02-07] MEDS: BRIMONIDINE TARTRATE 0.2% OPHTHALMIC 5 ML BOTTLE OD SCH ×2 (09:43→22:04)
[2018-02-07] MEDS: POLYETHYLENE GLYCOL 3350 119 GM BTL PO SCH (09:50)
--- NOTE | 2018-02-07 10:34 | PN ---
Progress Note, Physician Chief Complaint: cough/sob History of Present Illness: cough has improved but remains frequent. feels like can't get the phlegm up same chest wall pain when coughing sob improved no leg swelling - Current Medication List Current Medications: Active Medications Al Hydroxide/Mg Hydroxide (Mylanta Oral Suspension -) 30 ml PO Q6H PRN PRN Reason: DYSPEPSIA Albuterol Sulfate (Ventolin 0.083% Nebulizer Soln -) 1 amp NEB Q4H PRN PRN Reason: SHORT OF BREATH/WHEEZING Last Admin: 02/07/18 01:01 Dose: 1 amp Albuterol Sulfate (Ventolin 0.083% Nebulizer Soln -) 1 amp NEB RQID [facility] Last Admin: 02/07/18 07:20 Dose: 1 amp Brimonidine Tartrate (Alphagan 0.2% -) 1 drop OD BID [facility] Last Admin: 02/07/18 09:43 Dose: 1 drop Budesonide/Formoterol Fumarate (Symbicort 160/4.5mcg -) 2 puff IH BID [facility] Last Admin: 02/07/18 09:43 Dose: 2 puff Bupropion HCl (Wellbutrin Xl -) 300 mg PO DAILY [facility] Last Admin: 02/07/18 09:40 Dose: 300 mg Carbidopa/Levodopa (Sinemet 25/100 -) 1 each PO TID [facility] Last Admin: 02/07/18 05:50 Dose: 1 each Cholecalciferol (Vitamin D3 -) 1,000 unit PO DAILY [facility] Last Admin: 02/07/18 09:38 Dose: 1,000 unit Citalopram Hydrobromide (Celexa -) 10 mg PO DAILY [facility] Last Admin: 02/07/18 09:40 Dose: 10 mg Digoxin (Lanoxin -) 0.25 mg PO DAILY [facility] Last Admin: 02/07/18 09:39 Dose: 0.25 mg Docusate Sodium (Colace -) 300 mg PO HS [facility] Last Admin: 02/06/18 21:56 Dose: 300 mg Ferrous Sulfate (Feosol -) 325 mg PO DAILY [facility] Last Admin: 02/07/18 09:39 Dose: 325 mg Guaifenesin/Codeine Phosphate (Robitussin Ac -) 5 ml PO Q6H PRN PRN Reason: COUGH Last Admin: 02/07/18 05:50 Dose: 5 ml Insulin Aspart (Novolog Vial Sliding Scale -) 1 vial SQ TIDAC [facility]; Protocol Last Admin: 02/07/18 06:27 Dose: 6 unit Insulin Detemir (Levemir Vial) 40 units SQ AM [facility] Last Admin: 02/07/18 06:27 Dose: 40 unit Ketorolac Tromethamine (Ketorolac 0.5% Eye Drop) 1 drop OD TID [facility] Last Admin: 02/07/18 05:50 Dose: 1 drop Loratadine (Claritin -) 10 mg PO DAILY [facility] Last Admin: 02/07/18 09:38 Dose: 10 mg Methylprednisolone Sodium Succinate (Solu-Medrol -) 40 mg IVPUSH Q8H [facility] Last Admin: 02/07/18 09:36 Dose: 40 mg Oxycodone HCl (Roxicodone -) 5 mg PO Q6H PRN PRN Reason: PAIN 7-10 Last Admin: 02/06/18 06:24 Dose: 5 mg Pantoprazole Sodium (Protonix -) 40 mg PO DAILY [facility] Last Admin: 02/07/18 09:39 Dose: 40 mg Polyethylene Glycol (Miralax (For Daily Use) -) 17 gm PO DAILY [facility] Last Admin: 02/07/18 09:50 Dose: Not Given Pramipexole Dihydrochloride (Mirapex -) 0.5 mg PO TID [facility] Last Admin: 02/07/18 05:50 Dose: 0.5 mg Ranolazine (Ranexa -) 500 mg PO BID [facility] Last Admin: 02/07/18 09:39 Dose: 500 mg Senna (Senna -) 1 tab PO BID [facility] Last Admin: 02/07/18 09:38 Dose: 1 tab Tiotropium [place] (Spiriva Respimat) 2 puff IH DAILY [facility] Last Admin: 02/07/18 09:43 Dose: 2 puff Topiramate (Topamax -) 150 mg PO BID [facility] Last Admin: 02/07/18 09:40 Dose: 150 mg Torsemide (Demadex -) 40 mg PO DAILY [facility] Last Admin: 02/07/18 09:38 Dose: 40 mg Triamcinolone Acetonide (Aristocort 0.1% Cream -) 1 applic TP BID [facility] Last Admin: 02/07/18 09:42 Dose: 1 applic Verapamil HCl (Calan Sr -) 240 mg PO DAILY [facility] Last Admin: 02/07/18 09:38 Dose: 240 mg Warfarin Sodium (Coumadin -) 9 mg PO DAILY@1800 [facility] Last Admin: 02/06/18 17:32 Dose: 9 mg - Objective Vital Signs: Vital Signs Temperature 98.2 F 02/07/18 08:05 Pulse Rate 65 02/07/18 09:39 Respiratory Rate 18 02/07/18 08:05 Blood Pressure 137/60 02/07/18 08:05 O2 Sat by Pulse Oximetry (%) 97 02/06/18 21:00 Constitutional: Yes: Well Nourished, No Distress, Calm Cardiovascular: Yes: Regular Rate and Rhythm, S1, S2. No: Gallop, Murmur Respiratory: Yes: Regular, Rhonchi (R mid-upper). No: Accessory Muscle Use, Wheezes Extremities: No: Cold Edema: No Neurological: Yes: Alert, Oriented Psychiatric: No: Agitated Labs: CBC, BMP 02/05/18 06:15 02/05/18 06:15 INR, PTT INR 2.85 (0.83-1.09) H 02/06/18 07:10 Assessment/Plan ecg 07/03/14: sr, nl intervals, no ischemic changes, no sig change from prior cxr: no chf echo 10/2016: nl lv/rv, mild lae, nl mech mvr, small pericardial eff ( previously reported) echo ([facility]) 03/2017: nl lv/rv, nl mvr, mild as mibi 2016: no ecg changes, no ischemia/scar, nl lvef a/p: 67 year old lady with past medical history of COPD on home , FIGUEROA (on cpap at home), CAD (s/p single vessel CABG 2006 with RUSSELL to OM and ROSALINA x2 to LAD 12/2011; last cath 06/2014 showed patent RUSSELL, patent LAD stents, no sig residual dz except for 80-90% OM that is bypassed), mech mvr ([facility], 2006, on coumadin), anemia, TIA, dCHF, DM, HTN, pafib, antiphospholipid syndrome (on coumadin), fibromyalgia, migraines, chronic atypical cp, obesity, LBP here with sob, cough. acute copd exacerbation: -no signs chf or acs -copd tx (BDs, steroids) per pulm -improving gradually Atyp CP: -chronic recurrent sx for the pt, worsened now due to coughing from copd -MSK features, reproducible on exam--sec to severe coughing fits, +/- fibromyalgia -NST for this cp in 12/2013 and 04/2016 showed no ischemia and prior cath for this persistent cp 06/2014 showed patent graft and prior pci, no significant residual dz cad, s/p cabg, pci: -as above -normal lvef on recent echo, no anginal sxs -no bb due to copd, on verapamil instead -not on statin due to prior intolerance -cont ranexa for possible small vessel dz symptoms -given her epistaxis asa stopped as she is on ac. dizziness: -pt c/o some dizziness at times (not positional, occurs even when laying down still in bed). Persisted even with holding ranexa so not side effect related. Recent holter and echo unremarkable. Continued outpt f/u with neuro, ent. [facility] MVR: -on AC w/ coumadin, target INR 2.5 to 3.5, cont lovenox bridging while inr subtherapeutic -recent echo with normal [facility] mvr function Hx of mod pericardial effusion: -no effusion reported on recent echo HTN: Remains controlled on current meds. pafib: -rare episodes in past -remains in sr -recent holter showed sr only -continue verapamil and dig (level ok here) -cont ac with coumadin, has hx of TIA chronic HFpEF: -vol status has been stable on torsemide 40-80 qd. -baseline wt has been high 190lbs, below that here -likely is euvolemic--cont torsemide 40 qd as doing
--- NOTE | 2018-02-07 10:56 | PN ---
Progress Note (short form) - Note Progress Note: PULMONARY WELL KNOWN TO OUR SERVICE VSS/AFEBRILE Constitutional: Yes: Well Nourished, Calm Eyes: Yes: WNL HENT: Yes: WNL Neck: Yes: WNL Cardiovascular: Yes: Pulse Irregular, S1, S2 Respiratory: Yes: Wheezes (scattered antonia wheezes) Gastrointestinal: Yes: Normal Bowel Sounds, Soft Extremities: Yes: WNL Edema: No MEDS/NOTES/IMAGES/MICRO REVIEWED - Problems (1) COPD exacerbation Code(s): J44.1 - CHRONIC OBSTRUCTIVE PULMONARY DISEASE W (ACUTE) EXACERBATION (2) Afib Code(s): I48.91 - UNSPECIFIED ATRIAL FIBRILLATION Qualifiers: Atrial fibrillation type: paroxysmal Qualified Code(s): I48.0 - Paroxysmal atrial fibrillation (3) CAD (coronary artery disease) Code(s): I25.10 - ATHSCL HEART DISEASE OF [place] CORONARY ARTERY W/O ANG PCTRS (4) CHF (congestive heart failure) Code(s): I50.9 - HEART FAILURE, UNSPECIFIED (5) Diabetes Code(s): E11.9 - TYPE 2 DIABETES MELLITUS WITHOUT COMPLICATIONS Qualifiers: Diabetes mellitus type: type 2 Diabetes mellitus complication status: with neurologic complications (6) HTN (hypertension) Code(s): I10 - ESSENTIAL (PRIMARY) HYPERTENSION Qualifiers: Hypertension type: essential hypertension Qualified Code(s): I10 - Essential (primary) hypertension (7) Lupus Code(s): L93.0 - DISCOID LUPUS ERYTHEMATOSUS (8) FIGUEROA (obstructive sleep apnea) Code(s): G47.33 - OBSTRUCTIVE SLEEP APNEA (ADULT) (PEDIATRIC) Assessment/Plan Acute COPD Exacerbation Chronic Hypoxic Respiratory Failure Obstructive Sleep Apnea LV Diastolic Dysfunction CAD h/o MVR Atrial Fibrillation HTN DM Hyperlipidemia Lupus UTI - antibiotics for UTI - IV medrol q8h - inhaled bronchodilators - O2 to keep Spo2 >90% - CPAP at night - rate control - anticoagulation - robitusjohn WAYNE MD
--- NOTE | 2018-02-07 12:59 | PN ---
Progress Note, Physician - Current Medication List Current Medications: Active Medications Al Hydroxide/Mg Hydroxide (Mylanta Oral Suspension -) 30 ml PO Q6H PRN PRN Reason: DYSPEPSIA Albuterol Sulfate (Ventolin 0.083% Nebulizer Soln -) 1 amp NEB Q4H PRN PRN Reason: SHORT OF BREATH/WHEEZING Last Admin: 02/07/18 01:01 Dose: 1 amp Albuterol Sulfate (Ventolin 0.083% Nebulizer Soln -) 1 amp NEB RQID [facility] Last Admin: 02/07/18 11:10 Dose: 1 amp Brimonidine Tartrate (Alphagan 0.2% -) 1 drop OD BID [facility] Last Admin: 02/07/18 09:43 Dose: 1 drop Budesonide/Formoterol Fumarate (Symbicort 160/4.5mcg -) 2 puff IH BID [facility] Last Admin: 02/07/18 09:43 Dose: 2 puff Bupropion HCl (Wellbutrin Xl -) 300 mg PO DAILY [facility] Last Admin: 02/07/18 09:40 Dose: 300 mg Carbidopa/Levodopa (Sinemet 25/100 -) 1 each PO TID [facility] Last Admin: 02/07/18 05:50 Dose: 1 each Cholecalciferol (Vitamin D3 -) 1,000 unit PO DAILY [facility] Last Admin: 02/07/18 09:38 Dose: 1,000 unit Citalopram Hydrobromide (Celexa -) 10 mg PO DAILY [facility] Last Admin: 02/07/18 09:40 Dose: 10 mg Digoxin (Lanoxin -) 0.25 mg PO DAILY [facility] Last Admin: 02/07/18 09:39 Dose: 0.25 mg Docusate Sodium (Colace -) 300 mg PO HS [facility] Last Admin: 02/06/18 21:56 Dose: 300 mg Ferrous Sulfate (Feosol -) 325 mg PO DAILY [facility] Last Admin: 02/07/18 09:39 Dose: 325 mg Guaifenesin/Codeine Phosphate (Robitussin Ac -) 5 ml PO Q6H PRN PRN Reason: COUGH Last Admin: 02/07/18 05:50 Dose: 5 ml Insulin Aspart (Novolog Vial Sliding Scale -) 1 vial SQ TIDAC [facility]; Protocol Last Admin: 02/07/18 11:42 Dose: 4 unit Insulin Detemir (Levemir Vial) 40 units SQ AM [facility] Last Admin: 02/07/18 06:27 Dose: 40 unit Ketorolac Tromethamine (Ketorolac 0.5% Eye Drop) 1 drop OD TID [facility] Last Admin: 02/07/18 05:50 Dose: 1 drop Loratadine (Claritin -) 10 mg PO DAILY [facility] Last Admin: 02/07/18 09:38 Dose: 10 mg Methylprednisolone Sodium Succinate (Solu-Medrol -) 40 mg IVPUSH Q8H [facility] Last Admin: 02/07/18 09:36 Dose: 40 mg Oxycodone HCl (Roxicodone -) 5 mg PO Q6H PRN PRN Reason: PAIN 7-10 Last Admin: 02/06/18 06:24 Dose: 5 mg Pantoprazole Sodium (Protonix -) 40 mg PO DAILY [facility] Last Admin: 02/07/18 09:39 Dose: 40 mg Polyethylene Glycol (Miralax (For Daily Use) -) 17 gm PO DAILY [facility] Last Admin: 02/07/18 09:50 Dose: Not Given Pramipexole Dihydrochloride (Mirapex -) 0.5 mg PO TID [facility] Last Admin: 02/07/18 05:50 Dose: 0.5 mg Ranolazine (Ranexa -) 500 mg PO BID [facility] Last Admin: 02/07/18 09:39 Dose: 500 mg Senna (Senna -) 1 tab PO BID [facility] Last Admin: 02/07/18 09:38 Dose: 1 tab Tiotropium [place] (Spiriva Respimat) 2 puff IH DAILY [facility] Last Admin: 02/07/18 09:43 Dose: 2 puff Topiramate (Topamax -) 150 mg PO BID [facility] Last Admin: 02/07/18 09:40 Dose: 150 mg Torsemide (Demadex -) 40 mg PO DAILY [facility] Last Admin: 02/07/18 09:38 Dose: 40 mg Triamcinolone Acetonide (Aristocort 0.1% Cream -) 1 applic TP BID [facility] Last Admin: 02/07/18 09:42 Dose: 1 applic Verapamil HCl (Calan Sr -) 240 mg PO DAILY [facility] Last Admin: 02/07/18 09:38 Dose: 240 mg Warfarin Sodium (Coumadin -) 9 mg PO DAILY@1800 [facility] Last Admin: 02/06/18 17:32 Dose: 9 mg - Objective Vital Signs: Vital Signs Temperature 98.2 F 02/07/18 08:05 Pulse Rate 65 02/07/18 09:39 Respiratory Rate 18 02/07/18 08:05 Blood Pressure 137/60 02/07/18 08:05 O2 Sat by Pulse Oximetry (%) 96 02/07/18 09:00 Cardiovascular: Yes: S1, S2 Respiratory: Yes: Diminished, On Nasal O2, Rhonchi Gastrointestinal: Yes: Normal Bowel Sounds, Soft Labs: CBC, BMP 02/05/18 06:15 02/05/18 06:15 INR, PTT INR 2.85 (0.83-1.09) H 02/06/18 07:10 Problem List - Problems (1) COPD exacerbation Assessment/Plan: - CXR with congestive changes, WBC 12.8, - Ceftriaxone 1 mg X 1 and Azithromycin 500 mg IVP x 1 - Prednisone 50 mg qday - On 2L at baseline, continue - Symbicort 160/4.5 BID - Spiriva qday - Loratadine 10 mg PO qday - Elevate HOB for better air entry - Nebs 1amp QID [facility] Code(s): J44.1 - CHRONIC OBSTRUCTIVE PULMONARY DISEASE W (ACUTE) EXACERBATION (2) Afib Assessment/Plan: - MV replacement - EKG WNL- sinus - F/u INR 2.5-3.5 since with prosthetic MV - Started on hep gtt since sub-therapeutic - can bridge with coumadin 9mg POqd until therapeutic Code(s): I48.91 - UNSPECIFIED ATRIAL FIBRILLATION Qualifiers: Atrial fibrillation type: paroxysmal Qualified Code(s): I48.0 - Paroxysmal atrial fibrillation (3) CAD (coronary artery disease) Assessment/Plan: - 2 stents (2014) - Continue Ranexa 500 mg PO BID Code(s): I25.10 - ATHSCL HEART DISEASE OF [place] CORONARY ARTERY W/O ANG PCTRS (4) CHF (congestive heart failure) Assessment/Plan: - Currently euvolemic - Continue Torsemide 20mg PO TID - Continue Digoxin 0.25mg PO qd - F/u digoxin level - Fluid restriction - Na controlled diet - 2g Code(s): I50.9 - HEART FAILURE, UNSPECIFIED (5) Cough Code(s): R05 - COUGH (6) IDDM (insulin dependent diabetes mellitus) Code(s): E11.9 - TYPE 2 DIABETES MELLITUS WITHOUT COMPLICATIONS; Z79.4 - PENITENTIARY (CURRENT) USE OF INSULIN (7) Spinal stenosis Assessment/Plan: - Oxycodone 5 mg PO q6h PRN Code(s): M48.00 - SPINAL STENOSIS, SITE UNSPECIFIED (8) UTI (urinary tract infection) Assessment/Plan: - UA with 3+ Esterase - WBC 22 - Given 1 G Ceftriaxone - Urine culture pending Microbiology 01/29/18 19:37 Urine - Urine Clean Catch Urine Culture - Final NO GROWTH OBTAINED Code(s): N39.0 - URINARY TRACT INFECTION, SITE NOT SPECIFIED Qualifiers: Urinary tract infection type: acute cystitis Hematuria presence: without hematuria Qualified Code(s): N30.00 - Acute cystitis without hematuria (9) Lupus Assessment/Plan: - Dx 2004 - was on MTX but d/c d/t hair falling out - Hx of past skin biopsy with evidence of lupus. - Temporarily on Prednisone 50 mg for COPD, taper to home dose of 20 mg PO qd when appropriate Code(s): L93.0 - DISCOID LUPUS ERYTHEMATOSUS (10) Diabetes Assessment/Plan: - Levemir 40 q SQ qAM - BGM - ISS ACHS Code(s): E11.9 - TYPE 2 DIABETES MELLITUS WITHOUT COMPLICATIONS Qualifiers: Diabetes mellitus type: type 2 Diabetes mellitus complication status: with neurologic complications (11) FIGUEROA (obstructive sleep apnea) Assessment/Plan: - Continue CPAP at night Code(s): G47.33 - OBSTRUCTIVE SLEEP APNEA (ADULT) (PEDIATRIC) (12) Parkinson disease Assessment/Plan: - Continue carbidopa/levodopa 25-100 - Pramipexole 1.5 mg PO qHS - Continue outpatient neuro f/u Code(s): G20 - PARKINSON'S DISEASE
[2018-02-07] MEDS: MAG HYDROX/AL HYDROX/SIMETH 30 ML UNIT-DOSE CUP PO PRN ×2 (13:20→21:24)
[2018-02-07] MEDS: WARFARIN NA 3 MG TABLET PO SCH (17:04)
[2018-02-07] MEDS: MONTELUKAST NA 10 MG TABLET PO SCH (21:59)
[2018-02-07] MEDS: DOCUSATE SODIUM 100 MG CAPSULE (FP) PO SCH (22:01)
[2018-02-07] MEDS: oxyCODONE HCL 5 MG TABLET PO PRN (22:46)
[2018-02-08] MEDS: CODEINE SO4 30 MG TABLET PO PRN ×3 (01:26→22:22)
[2018-02-08] MEDS: methylPREDNISolone NA SUCC 40 MG/1 ML VIAL IVPUSH SCH ×3 (01:27→21:34)
[2018-02-08] MEDS: PRAMIPEXOLE DIHYDROCHLORIDE 0.5 MG TABLET PO SCH ×3 (05:52→21:33)
[2018-02-08] MEDS: CARBIDOPA/LEVODOPA 25/100 TABLET (FP) PO SCH ×3 (05:52→21:32)
[2018-02-08] MEDS: KETOROLAC TROMETHAMINE 0.5% EYE DROP 1 DROP DROPS OD SCH ×3 (05:54→21:33)
[2018-02-08] MEDS: ALBUTEROL SO4 0.083% IH SOL 2.5 MG/3 ML VIAL.NEB. NEB PRN (06:15)
[2018-02-08] MEDS: INSULIN (LEVEMIR) 100 UNITS/ML UNITS SQ SCH (06:44)
[2018-02-08] MEDS: INSULIN SLIDING SCALE (NOVOLOG) 1 VIAL SQ SCH ×3 (06:46→16:22)
[2018-02-08] MEDS ORDERED: PT OWN MED DRAWER 7, Y5N ONE ×4 (06:55→20:52)
[2018-02-08] MEDS: ALBUTEROL SO4 0.083% IH SOL 2.5 MG/3 ML VIAL.NEB. NEB SCH ×4 (07:25→20:13)
[2018-02-08] MEDS: VERAPAMIL HCL 240 MG E.R. TABLET (FP) PO SCH (09:44)
[2018-02-08] MEDS: PANTOPRAZOLE 40 MG TABLET (FP) PO SCH ×2 (09:44→21:32)
[2018-02-08] MEDS: RANOLAZINE E.R. 500 MG TABLET (FP) PO SCH ×2 (09:44→21:32)
[2018-02-08] MEDS: LORATADINE 10 MG TABLET PO SCH (09:44)
[2018-02-08] MEDS: SENNOSIDES 8.6MG TABLET (FP) PO SCH ×2 (09:44→21:32)
[2018-02-08] MEDS: DIGOXIN 0.25 MG TABLET (FP) PO SCH (09:44)
[2018-02-08] MEDS: guaiFENesin/CODEINE 5 ML UNIT-DOSE CUPS PO PRN ×3 (09:44→21:31)
[2018-02-08] MEDS: FERROUS SO4 325 MG TABLET (FP) PO SCH (09:44)
[2018-02-08] MEDS: CHOLECALCIFEROL (VITAMIN D3) 1,000 UNIT TABLET (FP) PO SCH (09:45)
[2018-02-08] MEDS: TOPIRAMATE 100 MG TABLET PO SCH ×2 (09:45→21:35)
[2018-02-08] MEDS: TORSEMIDE 20 MG TABLET (FP) PO SCH (09:45)
[2018-02-08] MEDS: CITALOPRAM HYDROBROMIDE 10 MG TABLET (FP) PO SCH (09:46)
[2018-02-08] MEDS: TIOTROPIUM BROMIDE 2.5 MCG (SPIRIVA) RESPIMAT INHALER IH SCH (09:47)
[2018-02-08] MEDS: BUDESONIDE/FORMETEROL FUMARATE 160/4.5 mcg INHALER IH SCH ×2 (09:47→21:34)
[2018-02-08] MEDS: BRIMONIDINE TARTRATE 0.2% OPHTHALMIC 5 ML BOTTLE OD SCH ×2 (09:48→21:33)
[2018-02-08] MEDS: TRIAMCINOLONE ACET 0.1% CREAM 15 GM TUBE TP SCH ×2 (09:48→21:33)
[2018-02-08] MEDS: POLYETHYLENE GLYCOL 3350 119 GM BTL PO SCH (09:49)
--- NOTE | 2018-02-08 10:28 | PN ---
Progress Note (short form) - Note Progress Note: PULMONARY WELL KNOWN TO OUR SERVICE SUBJECTIVE IMPROVEMENT TODAY VSS/AFEBRILE Constitutional: Yes: Well Nourished, Calm Eyes: Yes: WNL HENT: Yes: WNL Neck: Yes: WNL Cardiovascular: Yes: Pulse Irregular, S1, S2 Respiratory: Yes: Wheezes (scattered [place]ia wheezes) Gastrointestinal: Yes: Normal Bowel Sounds, Soft Extremities: Yes: WNL Edema: No MEDS/NOTES/IMAGES/MICRO REVIEWED - Problems (1) COPD exacerbation Code(s): J44.1 - CHRONIC OBSTRUCTIVE PULMONARY DISEASE W (ACUTE) EXACERBATION (2) Afib Code(s): I48.91 - UNSPECIFIED ATRIAL FIBRILLATION Qualifiers: Atrial fibrillation type: paroxysmal Qualified Code(s): I48.0 - Paroxysmal atrial fibrillation (3) CAD (coronary artery disease) Code(s): I25.10 - ATHSCL HEART DISEASE OF [place] CORONARY ARTERY W/O ANG PCTRS (4) CHF (congestive heart failure) Code(s): I50.9 - HEART FAILURE, UNSPECIFIED (5) Diabetes Code(s): E11.9 - TYPE 2 DIABETES MELLITUS WITHOUT COMPLICATIONS Qualifiers: Diabetes mellitus type: type 2 Diabetes mellitus complication status: with neurologic complications (6) HTN (hypertension) Code(s): I10 - ESSENTIAL (PRIMARY) HYPERTENSION Qualifiers: Hypertension type: essential hypertension Qualified Code(s): I10 - Essential (primary) hypertension (7) Lupus Code(s): L93.0 - DISCOID LUPUS ERYTHEMATOSUS (8) FIGUEROA (obstructive sleep apnea) Code(s): G47.33 - OBSTRUCTIVE SLEEP APNEA (ADULT) (PEDIATRIC) Assessment/Plan Acute COPD Exacerbation Chronic Hypoxic Respiratory Failure Obstructive Sleep Apnea LV Diastolic Dysfunction CAD h/o MVR Atrial Fibrillation HTN DM Hyperlipidemia Lupus UTI - antibiotics for UTI - IV medrol q8h - inhaled bronchodilators - O2 to keep Spo2 >90% - CPAP at night - rate control - anticoagulation - robitussin tere WAYNE MD
--- NOTE | 2018-02-08 10:31 | PN ---
Progress Note (short form) - Note Progress Note: s: no palps, loc. sob and cough present but slowly improving; cp with coughing/ deep breaths Current Medications Generic Name Dose Route Start Last Admin Trade Name Freq PRN Reason Stop Dose Admin Al Hydroxide/Mg Hydroxide 30 ml 02/04/18 08:53 02/07/18 21:24 Mylanta Oral Suspension - PO 30 ml Q6H PRN Administration DYSPEPSIA Albuterol Sulfate 1 amp 01/29/18 19:53 02/08/18 06:15 Ventolin 0.083% Nebulizer Soln - NEB 1 amp Q4H PRN Administration SHORT OF BREATH/WHEEZING Albuterol Sulfate 1 amp 01/30/18 16:00 02/08/18 07:25 Ventolin 0.083% Nebulizer Soln - NEB 1 amp RQID [facility] Administration Brimonidine Tartrate 1 drop 01/31/18 10:15 02/08/18 09:48 Alphagan 0.2% - OD 1 drop BID [facility] Administration Budesonide/Formoterol Fumarate 2 puff 01/29/18 22:00 02/08/18 09:47 Symbicort 160/4.5mcg - IH 2 puff BID [facility] Administration Bupropion HCl 300 mg 01/30/18 10:00 02/08/18 09:46 Wellbutrin Xl - PO 300 mg DAILY [facility] Administration Carbidopa/Levodopa 1 each 01/29/18 22:00 02/08/18 05:52 Sinemet 25/100 - PO 1 each TID [facility] Administration Cholecalciferol 1,000 unit 01/30/18 10:00 02/08/18 09:45 Vitamin D3 - PO 1,000 unit DAILY [facility] Administration Citalopram Hydrobromide 10 mg 01/30/18 10:00 02/08/18 09:46 Celexa - PO 10 mg DAILY [facility] Administration Codeine Sulfate 30 mg 02/07/18 23:41 02/08/18 06:43 Codeine Sulfate - PO 30 mg Q4H PRN Administration COUGH Digoxin 0.25 mg 01/30/18 10:00 02/08/18 09:44 Lanoxin - PO 0.25 mg DAILY [facility] Administration Docusate Sodium 300 mg 01/29/18 22:00 02/07/18 22:01 Colace - PO 300 mg HS [facility] Administration Ferrous Sulfate 325 mg 01/30/18 10:00 02/08/18 09:44 Feosol - PO 325 mg DAILY [facility] Administration Guaifenesin/Codeine Phosphate 5 ml 02/07/18 13:11 02/08/18 09:44 Robitussin Ac - PO 5 ml Q4H PRN Administration COUGH Insulin Aspart 1 vial 01/30/18 07:00 02/08/18 06:46 Novolog Vial Sliding Scale - SQ 6 unit TIDAC [facility] Administration Protocol Insulin Detemir 40 units 01/30/18 07:00 02/08/18 06:44 Levemir Vial SQ 40 unit AM [facility] Administration Ketorolac Tromethamine 1 drop 01/31/18 14:00 02/08/18 05:54 Ketorolac 0.5% Eye Drop OD 1 drop TID [facility] Administration Loratadine 10 mg 01/30/18 10:00 02/08/18 09:44 Claritin - PO 10 mg DAILY [facility] Administration Methylprednisolone Sodium Succinate 40 mg 02/05/18 18:00 02/08/18 09:44 Solu-Medrol - IVPUSH 40 mg Q8H [facility] Administration Montelukast Sodium 10 mg 02/07/18 22:00 02/07/18 21:59 Singulair - PO 10 mg HS [facility] Administration Oxycodone HCl 5 mg 01/29/18 20:01 02/07/18 22:46 Roxicodone - PO 5 mg Q6H PRN Administration PAIN 7-10 Pantoprazole Sodium 40 mg 02/07/18 22:00 02/08/18 09:44 Protonix - PO 40 mg BID [facility] Administration Polyethylene Glycol 17 gm 01/31/18 10:30 02/08/18 09:49 Miralax (For Daily Use) - PO Not Given DAILY [facility] Pramipexole Dihydrochloride 0.5 mg 01/29/18 22:00 02/08/18 05:52 Mirapex - PO 0.5 mg TID [facility] Administration Ranolazine 500 mg 01/29/18 22:00 02/08/18 09:44 Ranexa - PO 500 mg BID [facility] Administration Senna 1 tab 01/31/18 10:30 02/08/18 09:44 Senna - PO 1 tab BID [facility] Administration Tiotropium Drifting 2 puff 01/30/18 10:00 02/08/18 09:47 Spiriva Respimat IH 2 puff DAILY [facility] Administration Topiramate 150 mg 01/29/18 22:00 02/08/18 09:45 Topamax - PO 150 mg BID [facility] Administration Torsemide 40 mg 01/30/18 10:00 02/08/18 09:45 Demadex - PO 40 mg DAILY [facility] Administration Triamcinolone Acetonide 1 applic 01/29/18 22:00 02/08/18 09:48 Aristocort 0.1% Cream - TP 1 applic BID [facility] Administration Verapamil HCl 240 mg 01/30/18 10:00 02/08/18 09:44 Calan Sr - PO 240 mg DAILY [facility] Administration Warfarin Sodium 9 mg 01/30/18 18:00 02/07/18 17:04 Coumadin - PO 9 mg DAILY@1800 [facility] Administration Vital Signs Period Temp Pulse Resp BP Sys/Wise Pulse Ox Last 24 Hr 97.6 F-98.2 F 57-71 16-20 139-156/62-75 96-96 nad no jvd rrr s1s2 no mrg b/l exp wheeze, nl eff aaox3 no le e/c/c no jaundice diaphoresis abd nt pos bs, nd +reproducible chest wall pain (chronic) CBC, BMP 02/05/18 06:15 02/05/18 06:15 ecg 07/03/14: sr, nl intervals, no ischemic changes, no sig change from prior echo 04/2013: normal LV/RVF, normally functioning mech MVR Echo 11/2013; [facility]RVF, [facility], small peric effusion--unchanged from prev echo 06/2014: nl lv/rv, lae, normal fcn mech mvr, rvsp 30-40 echo 07/2015: tds; nl lv/rv, mild lae, nl mech mvr echo 10/2016: nl lv/rv, mild lae, nl mech mvr, small pericardial eff echo (sjh) 03/2017: nl lv/rv, nl mvr, mild as mibi 12/2013: no ischemia mibi 04/2016: no ecg changes, no ischemia/scar, nl lvef holter 08/2015: sr, benign study.eg cxr: no chf a/p: 67 year old lady with past medical history of COPD on home 02, FIGUEROA (on cpap at home), CAD (s/p single vessel CABG 2006 with RUSSELL to OM and ROSALINA x2 to LAD 12/2011; last cath 06/2014 showed patent RUSSELL, patent LAD stents, no sig residual dz except for 80-90% OM that is bypassed), [facility] mvr ([facility], 2006, on coumadin), anemia, TIA, dCHF, DM, HTN, pafib, antiphospholipid syndrome (on coumadin), fibromyalgia, migraines, chronic atypical cp, obesity, LBP here with sob, cough. sob, acute copd exacerbation: -no signs chf or acs, sxs likely from copd, improving -cont steroids per pulm Atyp CP: -chronic recurrent sx for the pt, worsened now due to coughing from copd -MSK features, reproducible on exam -NST for this cp in 12/2013 and 04/2016 showed no ischemia and prior cath for this persistent cp 06/2014 showed patent graft and prior pci, no significant residual dz -current pain does not seem cardiac, likely due to fibromyalgia , coughing cad, s/p cabg, pci: -as above -normal lvef on recent echo, no anginal sxs -no bb due to copd, on verapamil instead -not on statin due to prior intolerance -cont ranexa for possible small vessel dz symptoms -given her epistaxis asa stopped as she is on ac. dizziness: -pt c/o some dizziness at times (not positional, occurs even when laying down still in bed). Persisted even with holding ranexa so not side effect related. Recent holter and echo unremarkable. Continued outpt f/u with neuro, ent. [facility] MVR: -on AC w/ coumadin, target INR 2.5 to 3.5, cont lovenox bridging while inr subtherapeutic -recent echo with normal [facility] mvr function Hx of mod pericardial effusion: -no effusion reported on recent echo HTN: Remains controlled on current meds. pafib: -rare episodes in past -remains in sr -recent holter showed sr only -continue verapamil and dig (level ok here) -cont ac with coumadin, has hx of TIA chronic HFpEF: -vol status has been stable on torsemide 40-80 qd. -baseline wt has been high 190lbs
--- NOTE | 2018-02-08 11:05 | PN ---
Progress Note, Physician - Current Medication List Current Medications: Active Medications Al Hydroxide/Mg Hydroxide (Mylanta Oral Suspension -) 30 ml PO Q6H PRN PRN Reason: DYSPEPSIA Last Admin: 02/07/18 21:24 Dose: 30 ml Albuterol Sulfate (Ventolin 0.083% Nebulizer Soln -) 1 amp NEB Q4H PRN PRN Reason: SHORT OF BREATH/WHEEZING Last Admin: 02/08/18 06:15 Dose: 1 amp Albuterol Sulfate (Ventolin 0.083% Nebulizer Soln -) 1 amp NEB RQID [facility] Last Admin: 02/08/18 07:25 Dose: 1 amp Brimonidine Tartrate (Alphagan 0.2% -) 1 drop OD BID [facility] Last Admin: 02/08/18 09:48 Dose: 1 drop Budesonide/Formoterol Fumarate (Symbicort 160/4.5mcg -) 2 puff IH BID [facility] Last Admin: 02/08/18 09:47 Dose: 2 puff Bupropion HCl (Wellbutrin Xl -) 300 mg PO DAILY [facility] Last Admin: 02/08/18 09:46 Dose: 300 mg Carbidopa/Levodopa (Sinemet 25/100 -) 1 each PO TID [facility] Last Admin: 02/08/18 05:52 Dose: 1 each Cholecalciferol (Vitamin D3 -) 1,000 unit PO DAILY [facility] Last Admin: 02/08/18 09:45 Dose: 1,000 unit Citalopram Hydrobromide (Celexa -) 10 mg PO DAILY [facility] Last Admin: 02/08/18 09:46 Dose: 10 mg Codeine Sulfate (Codeine Sulfate -) 30 mg PO Q4H PRN PRN Reason: COUGH Last Admin: 02/08/18 06:43 Dose: 30 mg Digoxin (Lanoxin -) 0.25 mg PO DAILY [facility] Last Admin: 02/08/18 09:44 Dose: 0.25 mg Docusate Sodium (Colace -) 300 mg PO HS [facility] Last Admin: 02/07/18 22:01 Dose: 300 mg Ferrous Sulfate (Feosol -) 325 mg PO DAILY [facility] Last Admin: 02/08/18 09:44 Dose: 325 mg Guaifenesin/Codeine Phosphate (Robitussin Ac -) 5 ml PO Q4H PRN PRN Reason: COUGH Last Admin: 02/08/18 09:44 Dose: 5 ml Insulin Aspart (Novolog Vial Sliding Scale -) 1 vial SQ TIDAC [facility]; Protocol Last Admin: 02/08/18 06:46 Dose: 6 unit Insulin Detemir (Levemir Vial) 40 units SQ AM [facility] Last Admin: 02/08/18 06:44 Dose: 40 unit Ketorolac Tromethamine (Ketorolac 0.5% Eye Drop) 1 drop OD TID [facility] Last Admin: 02/08/18 05:54 Dose: 1 drop Loratadine (Claritin -) 10 mg PO DAILY [facility] Last Admin: 02/08/18 09:44 Dose: 10 mg Methylprednisolone Sodium Succinate (Solu-Medrol -) 40 mg IVPUSH BID [facility] Montelukast Sodium (Singulair -) 10 mg PO HS [facility] Last Admin: 02/07/18 21:59 Dose: 10 mg Oxycodone HCl (Roxicodone -) 5 mg PO Q6H PRN PRN Reason: PAIN 7-10 Last Admin: 02/07/18 22:46 Dose: 5 mg Pancrelipase (Creon Dr 36,000 Units Capsule) 1 cap PO TIDCM [facility] Pantoprazole Sodium (Protonix -) 40 mg PO BID [facility] Last Admin: 02/08/18 09:44 Dose: 40 mg Polyethylene Glycol (Miralax (For Daily Use) -) 17 gm PO DAILY [facility] Last Admin: 02/08/18 09:49 Dose: Not Given Pramipexole Dihydrochloride (Mirapex -) 0.5 mg PO TID [facility] Last Admin: 02/08/18 05:52 Dose: 0.5 mg Ranolazine (Ranexa -) 500 mg PO BID [facility] Last Admin: 02/08/18 09:44 Dose: 500 mg Senna (Senna -) 1 tab PO BID [facility] Last Admin: 02/08/18 09:44 Dose: 1 tab Tiotropium [place] (Spiriva Respimat) 2 puff IH DAILY [facility] Last Admin: 02/08/18 09:47 Dose: 2 puff Topiramate (Topamax -) 150 mg PO BID [facility] Last Admin: 02/08/18 09:45 Dose: 150 mg Torsemide (Demadex -) 40 mg PO DAILY [facility] Last Admin: 02/08/18 09:45 Dose: 40 mg Triamcinolone Acetonide (Aristocort 0.1% Cream -) 1 applic TP BID [facility] Last Admin: 02/08/18 09:48 Dose: 1 applic Verapamil HCl (Calan Sr -) 240 mg PO DAILY [facility] Last Admin: 02/08/18 09:44 Dose: 240 mg Warfarin Sodium (Coumadin -) 9 mg PO DAILY@1800 [facility] Last Admin: 02/07/18 17:04 Dose: 9 mg - Objective Vital Signs: Vital Signs Temperature 98.2 F 02/08/18 07:33 Pulse Rate 66 02/08/18 09:44 Respiratory Rate 18 02/08/18 07:33 Blood Pressure 147/73 02/08/18 07:33 O2 Sat by Pulse Oximetry (%) 96 02/08/18 08:57 Cardiovascular: Yes: S1, S2 Respiratory: Yes: On Nasal O2, Rhonchi, SOB on Exertion, Wheezes Gastrointestinal: Yes: Normal Bowel Sounds, Soft Labs: CBC, BMP 02/05/18 06:15 02/05/18 06:15 INR, PTT INR 2.85 (0.83-1.09) H 02/06/18 07:10 Problem List - Problems (1) COPD exacerbation Assessment/Plan: - CXR with congestive changes, WBC 12.8, - Ceftriaxone 1 mg X 1 and Azithromycin 500 mg IVP x 1 - Prednisone 50 mg qday - On 2L at baseline, continue - Symbicort 160/4.5 BID - Spiriva qday - Loratadine 10 mg PO qday - Elevate HOB for better air entry - Nebs 1amp QID [facility] Code(s): J44.1 - CHRONIC OBSTRUCTIVE PULMONARY DISEASE W (ACUTE) EXACERBATION (2) Afib Assessment/Plan: - MV replacement - EKG WNL- sinus - F/u INR 2.5-3.5 since with prosthetic MV - Started on hep gtt since sub-therapeutic - can bridge with coumadin 9mg POqd until therapeutic Code(s): I48.91 - UNSPECIFIED ATRIAL FIBRILLATION Qualifiers: Atrial fibrillation type: paroxysmal Qualified Code(s): I48.0 - Paroxysmal atrial fibrillation (3) CAD (coronary artery disease) Assessment/Plan: - 2 stents (2014) - Continue Ranexa 500 mg PO BID Code(s): I25.10 - ATHSCL HEART DISEASE OF [place] CORONARY ARTERY W/O ANG PCTRS (4) CHF (congestive heart failure) Assessment/Plan: - Currently euvolemic - Continue Torsemide 20mg PO TID - Continue Digoxin 0.25mg PO qd - F/u digoxin level - Fluid restriction - Na controlled diet - 2g Code(s): I50.9 - HEART FAILURE, UNSPECIFIED (5) Cough Code(s): R05 - COUGH (6) IDDM (insulin dependent diabetes mellitus) Code(s): E11.9 - TYPE 2 DIABETES MELLITUS WITHOUT COMPLICATIONS; Z79.4 - SNF (CURRENT) USE OF INSULIN (7) Spinal stenosis Assessment/Plan: - Oxycodone 5 mg PO q6h PRN Code(s): M48.00 - SPINAL STENOSIS, SITE UNSPECIFIED (8) UTI (urinary tract infection) Assessment/Plan: - UA with 3+ Esterase - WBC 22 - Given 1 G Ceftriaxone - Urine culture pending Microbiology 01/29/18 19:37 Urine - Urine Clean Catch Urine Culture - Final NO GROWTH OBTAINED Code(s): N39.0 - URINARY TRACT INFECTION, SITE NOT SPECIFIED Qualifiers: Urinary tract infection type: acute cystitis Hematuria presence: without hematuria Qualified Code(s): N30.00 - Acute cystitis without hematuria (9) Lupus Assessment/Plan: - Dx 2004 - was on MTX but d/c d/t hair falling out - Hx of past skin biopsy with evidence of lupus. - Temporarily on Prednisone 50 mg for COPD, taper to home dose of 20 mg PO qd when appropriate Code(s): L93.0 - DISCOID LUPUS ERYTHEMATOSUS (10) Diabetes Assessment/Plan: - Levemir 40 q SQ qAM - BGM - ISS ACHS Code(s): E11.9 - TYPE 2 DIABETES MELLITUS WITHOUT COMPLICATIONS Qualifiers: Diabetes mellitus type: type 2 Diabetes mellitus complication status: with neurologic complications (11) FIGUEROA (obstructive sleep apnea) Assessment/Plan: - Continue CPAP at night Code(s): G47.33 - OBSTRUCTIVE SLEEP APNEA (ADULT) (PEDIATRIC) (12) Parkinson disease Assessment/Plan: - Continue carbidopa/levodopa 25-100 - Pramipexole 1.5 mg PO qHS - Continue outpatient neuro f/u Code(s): G20 - PARKINSON'S DISEASE
[2018-02-08] MEDS: LIPASE/PROTEASE/AMYLASE 36,000 UNIT CAPSULE PO SCH ×3 (11:22→16:30)
[2018-02-08 13:06] LABS: INR 3.02 (0.83-1.09)
[2018-02-08] MEDS ORDERED: WARFARIN NA 5 MG, WARFARIN NA 4 MG PO ONE (17:45)
[2018-02-08] MEDS ORDERED: WARFARIN NA 2 MG TABLET (UD) ONE (17:49)
[2018-02-08] MEDS ORDERED: WARFARIN NA 5 MG TABLET (UD) ONE (17:49)
[2018-02-08] MEDS: DOCUSATE SODIUM 100 MG CAPSULE (FP) PO SCH (21:31)
[2018-02-08] MEDS: MONTELUKAST NA 10 MG TABLET PO SCH (21:32)
[2018-02-09] MEDS ORDERED: PT OWN MED DRAWER 7, Y5N ONE ×6 (05:35→21:14)
[2018-02-09] MEDS: KETOROLAC TROMETHAMINE 0.5% EYE DROP 1 DROP DROPS OD SCH ×3 (05:56→21:21)
[2018-02-09] MEDS: PRAMIPEXOLE DIHYDROCHLORIDE 0.5 MG TABLET PO SCH ×3 (05:56→21:23)
[2018-02-09] MEDS: CARBIDOPA/LEVODOPA 25/100 TABLET (FP) PO SCH ×3 (05:56→21:22)
[2018-02-09] MEDS: guaiFENesin/CODEINE 5 ML UNIT-DOSE CUPS PO PRN ×2 (06:15→23:36)
[2018-02-09] MEDS: INSULIN (LEVEMIR) 100 UNITS/ML UNITS SQ SCH (06:40)
[2018-02-09] MEDS: INSULIN SLIDING SCALE (NOVOLOG) 1 VIAL SQ SCH ×3 (06:40→16:11)
[2018-02-09] MEDS ORDERED: INSULIN (NOVOLOG) ASPART 100 UNITS/ML 10ML VIAL ONE (06:44)
[2018-02-09] MEDS: ALBUTEROL SO4 0.083% IH SOL 2.5 MG/3 ML VIAL.NEB. NEB SCH ×4 (07:40→19:57)
[2018-02-09 08:18] LABS: PROTHROMBIN TIME (PATIENT) 35.8 SEC (9.7-13.0)
[2018-02-09] MEDS: LIPASE/PROTEASE/AMYLASE 36,000 UNIT CAPSULE PO SCH ×3 (08:23→16:44)
[2018-02-09] MEDS: TRIAMCINOLONE ACET 0.1% CREAM 15 GM TUBE TP SCH ×2 (09:34→21:21)
[2018-02-09] MEDS: BRIMONIDINE TARTRATE 0.2% OPHTHALMIC 5 ML BOTTLE OD SCH ×2 (09:34→21:22)
[2018-02-09] MEDS: TIOTROPIUM BROMIDE 2.5 MCG (SPIRIVA) RESPIMAT INHALER IH SCH (09:35)
[2018-02-09] MEDS: BUDESONIDE/FORMETEROL FUMARATE 160/4.5 mcg INHALER IH SCH ×2 (09:35→21:21)
[2018-02-09] MEDS: methylPREDNISolone NA SUCC 40 MG/1 ML VIAL IVPUSH SCH ×2 (09:36→21:24)
[2018-02-09] MEDS: DIGOXIN 0.25 MG TABLET (FP) PO SCH (09:38)
[2018-02-09] MEDS: RANOLAZINE E.R. 500 MG TABLET (FP) PO SCH ×2 (09:38→21:25)
[2018-02-09] MEDS: CHOLECALCIFEROL (VITAMIN D3) 1,000 UNIT TABLET (FP) PO SCH (09:38)
[2018-02-09] MEDS: FERROUS SO4 325 MG TABLET (FP) PO SCH (09:38)
[2018-02-09] MEDS: SENNOSIDES 8.6MG TABLET (FP) PO SCH ×2 (09:38→21:22)
[2018-02-09] MEDS: PANTOPRAZOLE 40 MG TABLET (FP) PO SCH ×2 (09:38→21:22)
[2018-02-09] MEDS: LORATADINE 10 MG TABLET PO SCH (09:38)
[2018-02-09] MEDS: VERAPAMIL HCL 240 MG E.R. TABLET (FP) PO SCH (09:38)
[2018-02-09] MEDS: CITALOPRAM HYDROBROMIDE 10 MG TABLET (FP) PO SCH (09:39)
[2018-02-09] MEDS: TOPIRAMATE 100 MG TABLET PO SCH ×2 (09:39→21:23)
[2018-02-09] MEDS: TORSEMIDE 20 MG TABLET (FP) PO SCH (09:40)
--- NOTE | 2018-02-09 12:04 | PN ---
Progress Note, Physician - Current Medication List Current Medications: Active Medications Al Hydroxide/Mg Hydroxide (Mylanta Oral Suspension -) 30 ml PO Q6H PRN PRN Reason: DYSPEPSIA Last Admin: 02/07/18 21:24 Dose: 30 ml Albuterol Sulfate (Ventolin 0.083% Nebulizer Soln -) 1 amp NEB Q4H PRN PRN Reason: SHORT OF BREATH/WHEEZING Last Admin: 02/08/18 06:15 Dose: 1 amp Albuterol Sulfate (Ventolin 0.083% Nebulizer Soln -) 1 amp NEB RQID [facility] Last Admin: 02/09/18 07:40 Dose: 1 amp Brimonidine Tartrate (Alphagan 0.2% -) 1 drop OD BID [facility] Last Admin: 02/09/18 09:34 Dose: 1 drop Budesonide/Formoterol Fumarate (Symbicort 160/4.5mcg -) 2 puff IH BID [facility] Last Admin: 02/09/18 09:35 Dose: 2 puff Bupropion HCl (Wellbutrin Xl -) 300 mg PO DAILY [facility] Last Admin: 02/09/18 09:39 Dose: 300 mg Carbidopa/Levodopa (Sinemet 25/100 -) 1 each PO TID [facility] Last Admin: 02/09/18 05:56 Dose: 1 each Cholecalciferol (Vitamin D3 -) 1,000 unit PO DAILY [facility] Last Admin: 02/09/18 09:38 Dose: 1,000 unit Citalopram Hydrobromide (Celexa -) 10 mg PO DAILY [facility] Last Admin: 02/09/18 09:39 Dose: 10 mg Codeine Sulfate (Codeine Sulfate -) 30 mg PO Q4H PRN PRN Reason: COUGH Last Admin: 02/08/18 22:22 Dose: 30 mg Digoxin (Lanoxin -) 0.25 mg PO DAILY [facility] Last Admin: 02/09/18 09:38 Dose: 0.25 mg Docusate Sodium (Colace -) 300 mg PO HS [facility] Last Admin: 02/08/18 21:31 Dose: 300 mg Ferrous Sulfate (Feosol -) 325 mg PO DAILY [facility] Last Admin: 02/09/18 09:38 Dose: 325 mg Guaifenesin/Codeine Phosphate (Robitussin Ac -) 5 ml PO Q4H PRN PRN Reason: COUGH Last Admin: 02/09/18 06:15 Dose: 5 ml Insulin Aspart (Novolog Vial Sliding Scale -) 1 vial SQ TIDAC [facility]; Protocol Last Admin: 02/09/18 11:11 Dose: Not Given Insulin Detemir (Levemir Vial) 40 units SQ AM [facility] Last Admin: 02/09/18 06:40 Dose: 40 unit Ketorolac Tromethamine (Ketorolac 0.5% Eye Drop) 1 drop OD TID [facility] Last Admin: 02/09/18 05:56 Dose: 1 drop Loratadine (Claritin -) 10 mg PO DAILY [facility] Last Admin: 02/09/18 09:38 Dose: 10 mg Methylprednisolone Sodium Succinate (Solu-Medrol -) 40 mg IVPUSH BID [facility] Last Admin: 02/09/18 09:36 Dose: 40 mg Montelukast Sodium (Singulair -) 10 mg PO HS [facility] Last Admin: 02/08/18 21:32 Dose: 10 mg Oxycodone HCl (Roxicodone -) 5 mg PO Q6H PRN PRN Reason: PAIN 7-10 Last Admin: 02/07/18 22:46 Dose: 5 mg Pancrelipase (Creon Dr 36,000 Units Capsule) 1 cap PO TIDCM [facility] Last Admin: 02/09/18 11:41 Dose: 1 cap Pantoprazole Sodium (Protonix -) 40 mg PO BID [facility] Last Admin: 02/09/18 09:38 Dose: 40 mg Polyethylene Glycol (Miralax (For Daily Use) -) 17 gm PO DAILY [facility] Last Admin: 02/08/18 09:49 Dose: Not Given Pramipexole Dihydrochloride (Mirapex -) 0.5 mg PO TID [facility] Last Admin: 02/09/18 05:56 Dose: 0.5 mg Ranolazine (Ranexa -) 500 mg PO BID [facility] Last Admin: 02/09/18 09:38 Dose: 500 mg Senna (Senna -) 1 tab PO BID [facility] Last Admin: 02/09/18 09:38 Dose: 1 tab Tiotropium [place] (Spiriva Respimat) 2 puff IH DAILY [facility] Last Admin: 02/09/18 09:35 Dose: 2 puff Topiramate (Topamax -) 150 mg PO BID [facility] Last Admin: 02/09/18 09:39 Dose: 150 mg Torsemide (Demadex -) 40 mg PO DAILY [facility] Last Admin: 02/09/18 09:40 Dose: 40 mg Triamcinolone Acetonide (Aristocort 0.1% Cream -) 1 applic TP BID [facility] Last Admin: 02/09/18 09:34 Dose: 1 applic Verapamil HCl (Calan Sr -) 240 mg PO DAILY [facility] Last Admin: 02/09/18 09:38 Dose: 240 mg Warfarin Sodium (Coumadin -) 8 mg PO DAILY@1800 [facility] - Objective Vital Signs: Vital Signs Temperature 98.3 F 02/09/18 10:00 Pulse Rate 67 02/09/18 10:00 Respiratory Rate 20 02/09/18 10:00 Blood Pressure 150/52 L 02/09/18 10:00 O2 Sat by Pulse Oximetry (%) 98 02/09/18 09:00 Cardiovascular: Yes: S1, S2 Respiratory: Yes: Rhonchi Gastrointestinal: Yes: Normal Bowel Sounds, Soft Labs: CBC, BMP 02/05/18 06:15 02/05/18 06:15 INR, PTT INR 3.00 (0.83-1.09) H 02/09/18 06:00 Problem List - Problems (1) COPD exacerbation Assessment/Plan: - CXR with congestive changes, WBC 12.8, - Ceftriaxone 1 mg X 1 and Azithromycin 500 mg IVP x 1 - Prednisone 50 mg qday - On 2L at baseline, continue - Symbicort 160/4.5 BID - Spiriva qday - Loratadine 10 mg PO qday - Elevate HOB for better air entry - Nebs 1amp QID [facility] Code(s): J44.1 - CHRONIC OBSTRUCTIVE PULMONARY DISEASE W (ACUTE) EXACERBATION (2) Afib Assessment/Plan: - MV replacement - EKG WNL- sinus - F/u INR 2.5-3.5 since with prosthetic MV - Started on hep gtt since sub-therapeutic - can bridge with coumadin 9mg POqd until therapeutic Code(s): I48.91 - UNSPECIFIED ATRIAL FIBRILLATION Qualifiers: Atrial fibrillation type: paroxysmal Qualified Code(s): I48.0 - Paroxysmal atrial fibrillation (3) CAD (coronary artery disease) Assessment/Plan: - 2 stents (2014) - Continue Ranexa 500 mg PO BID Code(s): I25.10 - ATHSCL HEART DISEASE OF [place] CORONARY ARTERY W/O ANG PCTRS (4) CHF (congestive heart failure) Assessment/Plan: - Currently euvolemic - Continue Torsemide 20mg PO TID - Continue Digoxin 0.25mg PO qd - F/u digoxin level - Fluid restriction - Na controlled diet - 2g Code(s): I50.9 - HEART FAILURE, UNSPECIFIED (5) Cough Code(s): R05 - COUGH (6) IDDM (insulin dependent diabetes mellitus) Code(s): E11.9 - TYPE 2 DIABETES MELLITUS WITHOUT COMPLICATIONS; Z79.4 - [facility] (CURRENT) USE OF INSULIN (7) Spinal stenosis Assessment/Plan: - Oxycodone 5 mg PO q6h PRN Code(s): M48.00 - SPINAL STENOSIS, SITE UNSPECIFIED (8) UTI (urinary tract infection) Assessment/Plan: - UA with 3+ Esterase - WBC 22 - Given 1 G Ceftriaxone - Urine culture pending Microbiology 01/29/18 19:37 Urine - Urine Clean Catch Urine Culture - Final NO GROWTH OBTAINED Code(s): N39.0 - URINARY TRACT INFECTION, SITE NOT SPECIFIED Qualifiers: Urinary tract infection type: acute cystitis Hematuria presence: without hematuria Qualified Code(s): N30.00 - Acute cystitis without hematuria (9) Lupus Assessment/Plan: - Dx 2004 - was on MTX but d/c d/t hair falling out - Hx of past skin biopsy with evidence of lupus. - Temporarily on Prednisone 50 mg for COPD, taper to home dose of 20 mg PO qd when appropriate Code(s): L93.0 - DISCOID LUPUS ERYTHEMATOSUS (10) Diabetes Assessment/Plan: - Levemir 40 q SQ qAM - BGM - ISS ACHS Code(s): E11.9 - TYPE 2 DIABETES MELLITUS WITHOUT COMPLICATIONS Qualifiers: Diabetes mellitus type: type 2 Diabetes mellitus complication status: with neurologic complications (11) FIGUEROA (obstructive sleep apnea) Assessment/Plan: - Continue CPAP at night Code(s): G47.33 - OBSTRUCTIVE SLEEP APNEA (ADULT) (PEDIATRIC) (12) Parkinson disease Assessment/Plan: - Continue carbidopa/levodopa 25-100 - Pramipexole 1.5 mg PO qHS - Continue outpatient neuro f/u Code(s): G20 - PARKINSON'S DISEASE
[2018-02-09] MEDS: POLYETHYLENE GLYCOL 3350 119 GM BTL PO SCH (12:10)
--- NOTE | 2018-02-09 12:25 | PN ---
Progress Note (short form) - Note Progress Note: PULMONARY Breathing slowly improving. +nonproductive cough. Vital Signs Period Temp Pulse Resp BP Sys/Wise Pulse Ox Last 24 Hr 97.7 F-98.3 F 58-67 18-20 132-150/52-62 96-98 Gen: less tachypneic Heart: RRR Lung: less rhonchi, wheezes Abd: soft, nontender Ext: no edema CBC, BMP 02/05/18 06:15 02/05/18 06:15 Active Medications Al Hydroxide/Mg Hydroxide (Mylanta Oral Suspension -) 30 ml PO Q6H PRN PRN Reason: DYSPEPSIA Last Admin: 02/07/18 21:24 Dose: 30 ml Albuterol Sulfate (Ventolin 0.083% Nebulizer Soln -) 1 amp NEB Q4H PRN PRN Reason: SHORT OF BREATH/WHEEZING Last Admin: 02/08/18 06:15 Dose: 1 amp Albuterol Sulfate (Ventolin 0.083% Nebulizer Soln -) 1 amp NEB RQID [facility] Last Admin: 02/09/18 07:40 Dose: 1 amp Brimonidine Tartrate (Alphagan 0.2% -) 1 drop OD BID [facility] Last Admin: 02/09/18 09:34 Dose: 1 drop Budesonide/Formoterol Fumarate (Symbicort 160/4.5mcg -) 2 puff IH BID [facility] Last Admin: 02/09/18 09:35 Dose: 2 puff Bupropion HCl (Wellbutrin Xl -) 300 mg PO DAILY [facility] Last Admin: 02/09/18 09:39 Dose: 300 mg Carbidopa/Levodopa (Sinemet 25/100 -) 1 each PO TID [facility] Last Admin: 02/09/18 05:56 Dose: 1 each Cholecalciferol (Vitamin D3 -) 1,000 unit PO DAILY [facility] Last Admin: 02/09/18 09:38 Dose: 1,000 unit Citalopram Hydrobromide (Celexa -) 10 mg PO DAILY [facility] Last Admin: 02/09/18 09:39 Dose: 10 mg Codeine Sulfate (Codeine Sulfate -) 30 mg PO Q4H PRN PRN Reason: COUGH Last Admin: 02/08/18 22:22 Dose: 30 mg Digoxin (Lanoxin -) 0.25 mg PO DAILY [facility] Last Admin: 02/09/18 09:38 Dose: 0.25 mg Docusate Sodium (Colace -) 300 mg PO HS [facility] Last Admin: 02/08/18 21:31 Dose: 300 mg Ferrous Sulfate (Feosol -) 325 mg PO DAILY [facility] Last Admin: 02/09/18 09:38 Dose: 325 mg Guaifenesin/Codeine Phosphate (Robitussin Ac -) 5 ml PO Q4H PRN PRN Reason: COUGH Last Admin: 02/09/18 06:15 Dose: 5 ml Insulin Aspart (Novolog Vial Sliding Scale -) 1 vial SQ TIDAC [facility]; Protocol Last Admin: 02/09/18 11:11 Dose: Not Given Insulin Detemir (Levemir Vial) 40 units SQ AM [facility] Last Admin: 02/09/18 06:40 Dose: 40 unit Ketorolac Tromethamine (Ketorolac 0.5% Eye Drop) 1 drop OD TID [facility] Last Admin: 02/09/18 05:56 Dose: 1 drop Loratadine (Claritin -) 10 mg PO DAILY [facility] Last Admin: 02/09/18 09:38 Dose: 10 mg Methylprednisolone Sodium Succinate (Solu-Medrol -) 40 mg IVPUSH BID [facility] Last Admin: 02/09/18 09:36 Dose: 40 mg Montelukast Sodium (Singulair -) 10 mg PO HS [facility] Last Admin: 02/08/18 21:32 Dose: 10 mg Oxycodone HCl (Roxicodone -) 5 mg PO Q6H PRN PRN Reason: PAIN 7-10 Last Admin: 02/07/18 22:46 Dose: 5 mg Pancrelipase (Creon Dr 36,000 Units Capsule) 1 cap PO TIDCM [facility] Last Admin: 02/09/18 11:41 Dose: 1 cap Pantoprazole Sodium (Protonix -) 40 mg PO BID [facility] Last Admin: 02/09/18 09:38 Dose: 40 mg Polyethylene Glycol (Miralax (For Daily Use) -) 17 gm PO DAILY [facility] Last Admin: 02/09/18 12:10 Dose: 17 gm Pramipexole Dihydrochloride (Mirapex -) 0.5 mg PO TID [facility] Last Admin: 02/09/18 05:56 Dose: 0.5 mg Ranolazine (Ranexa -) 500 mg PO BID [facility] Last Admin: 02/09/18 09:38 Dose: 500 mg Senna (Senna -) 1 tab PO BID [facility] Last Admin: 02/09/18 09:38 Dose: 1 tab Tiotropium [place] (Spiriva Respimat) 2 puff IH DAILY [facility] Last Admin: 02/09/18 09:35 Dose: 2 puff Topiramate (Topamax -) 150 mg PO BID [facility] Last Admin: 02/09/18 09:39 Dose: 150 mg Torsemide (Demadex -) 40 mg PO DAILY [facility] Last Admin: 02/09/18 09:40 Dose: 40 mg Triamcinolone Acetonide (Aristocort 0.1% Cream -) 1 applic TP BID [facility] Last Admin: 02/09/18 09:34 Dose: 1 applic Verapamil HCl (Calan Sr -) 240 mg PO DAILY [facility] Last Admin: 02/09/18 09:38 Dose: 240 mg Warfarin Sodium 5 mg/ Warfarin (Sodium 3 mg) 8 mg PO DAILY@1800 [facility] A/P Acute COPD Exacerbation Chronic Hypoxic Respiratory Failure Obstructive Sleep Apnea LV Diastolic Dysfunction CAD h/o MVR Atrial Fibrillation HTN DM Hyperlipidemia Lupus UTI - continue medrol at current dose - inhaled bronchodilators - O2 to keep Spo2 >90% - CPAP at night - rate control - continue anticoagulation - cough suppressants - chest PT Problem List - Problems (1) COPD exacerbation Code(s): J44.1 - CHRONIC OBSTRUCTIVE PULMONARY DISEASE W (ACUTE) EXACERBATION (2) Afib Code(s): I48.91 - UNSPECIFIED ATRIAL FIBRILLATION Qualifiers: Atrial fibrillation type: paroxysmal Qualified Code(s): I48.0 - Paroxysmal atrial fibrillation (3) CAD (coronary artery disease) Code(s): I25.10 - ATHSCL HEART DISEASE OF [place] CORONARY ARTERY W/O ANG PCTRS (4) CHF (congestive heart failure) Code(s): I50.9 - HEART FAILURE, UNSPECIFIED (5) Diabetes Code(s): E11.9 - TYPE 2 DIABETES MELLITUS WITHOUT COMPLICATIONS Qualifiers: Diabetes mellitus type: type 2 Diabetes mellitus complication status: with neurologic complications (6) HTN (hypertension) Code(s): I10 - ESSENTIAL (PRIMARY) HYPERTENSION Qualifiers: Hypertension type: essential hypertension Qualified Code(s): I10 - Essential (primary) hypertension (7) Lupus Code(s): L93.0 - DISCOID LUPUS ERYTHEMATOSUS (8) FIGUEROA (obstructive sleep apnea) Code(s): G47.33 - OBSTRUCTIVE SLEEP APNEA (ADULT) (PEDIATRIC)
[2018-02-09] MEDS ORDERED: WARFARIN NA 3 MG TABLET ONE (17:42)
[2018-02-09] MEDS ORDERED: WARFARIN NA 5 MG TABLET (UD) ONE (17:42)
[2018-02-09] MEDS: WARFARIN NA 5 MG, WARFARIN NA 3 MG PO SCH (17:43)
[2018-02-09] MEDS ORDERED: WARFARIN NA 2 MG TABLET (UD) PO SCH (18:00)
[2018-02-09] MEDS: DOCUSATE SODIUM 100 MG CAPSULE (FP) PO SCH (21:22)
[2018-02-09] MEDS: MONTELUKAST NA 10 MG TABLET PO SCH (21:24)
[2018-02-09] MEDS: oxyCODONE HCL 5 MG TABLET PO PRN (23:36)
[2018-02-10] MEDS ORDERED: PT OWN MED DRAWER 7, Y5N ONE ×6 (06:00→21:48)
[2018-02-10] MEDS: INSULIN SLIDING SCALE (NOVOLOG) 1 VIAL SQ SCH ×3 (06:05→16:58)
[2018-02-10] MEDS: PRAMIPEXOLE DIHYDROCHLORIDE 0.5 MG TABLET PO SCH ×3 (06:06→22:02)
[2018-02-10] MEDS: CARBIDOPA/LEVODOPA 25/100 TABLET (FP) PO SCH ×3 (06:06→22:02)
[2018-02-10] MEDS: INSULIN (LEVEMIR) 100 UNITS/ML UNITS SQ SCH (06:06)
[2018-02-10] MEDS: KETOROLAC TROMETHAMINE 0.5% EYE DROP 1 DROP DROPS OD SCH ×3 (06:07→22:02)
[2018-02-10] MEDS: ALBUTEROL SO4 0.083% IH SOL 2.5 MG/3 ML VIAL.NEB. NEB SCH ×4 (07:30→19:22)
[2018-02-10] MEDS: LIPASE/PROTEASE/AMYLASE 36,000 UNIT CAPSULE PO SCH ×3 (08:41→16:58)
[2018-02-10 08:46] LABS: BASO % 0.1 % (0-2.0); EOS % 0.1 % (0-4.5); HEMATOCRIT 37.8 % (32.4-45.2); HEMOGLOBIN 11.9 GM/dL (10.7-15.3); LYMPH % 11.2 % (8-40); MCH 27.5 pg (25.7-33.7); MCHC 31.5 g/dl (32.0-36.0); MEAN CELL VOLUME 87.3 fl (80-96); MEAN PLT VOLUME 9.4 fl (7.5-11.1); MONO % 6.5 % (3.8-10.2); NEUT % 82.1 % (42.8-82.8); PLATELET COUNT 280 K/MM3 (134-434); RBC 4.33 M/mm3 (3.60-5.2); RDW 15.2 % (11.6-15.6); WHITE BLOOD COUNT 17.8 K/mm3 (4.0-10.0)
[2018-02-10 09:00] LABS: INR 3.11 (0.83-1.09); PROTHROMBIN TIME (PATIENT) 37.1 SEC (9.7-13.0)
[2018-02-10 09:10] LABS: ALBUMIN 3.2 g/dl (3.4-5.0); ALK PHOS 80 U/L (45-117); ANION GAP 5 MMOL/L (8-16); BILIRUBIN,TOTAL 0.6 mg/dL (0.2-1); BLOOD UREA NITROGEN 35 mg/dL (7-18); CALCIUM 8.7 mg/dL (8.5-10.1); CHLORIDE 102 mmol/L (98-107); CO2 30 mmol/L (21-32); CREATININE 1.1 mg/dL (0.55-1.3); GLUCOSE,RANDOM 130 mg/dL (74-106); POTASSIUM 3.9 mmol/L (3.5-5.1); SGOT/AST 8 U/L (15-37); SGPT/ALT 9 U/L (13-61); SODIUM 137 mmol/L (136-145); TOT PROT 6.3 g/dl (6.4-8.2)
[2018-02-10] MEDS: CODEINE SO4 30 MG TABLET PO PRN ×2 (09:46→23:56)
[2018-02-10] MEDS: DIGOXIN 0.25 MG TABLET (FP) PO SCH (09:47)
[2018-02-10] MEDS: FERROUS SO4 325 MG TABLET (FP) PO SCH (09:47)
[2018-02-10] MEDS: CHOLECALCIFEROL (VITAMIN D3) 1,000 UNIT TABLET (FP) PO SCH (09:47)
[2018-02-10] MEDS: VERAPAMIL HCL 240 MG E.R. TABLET (FP) PO SCH (09:47)
[2018-02-10] MEDS: RANOLAZINE E.R. 500 MG TABLET (FP) PO SCH ×2 (09:47→22:01)
[2018-02-10] MEDS: SENNOSIDES 8.6MG TABLET (FP) PO SCH ×2 (09:47→22:02)
[2018-02-10] MEDS: LORATADINE 10 MG TABLET PO SCH (09:47)
[2018-02-10] MEDS: TOPIRAMATE 100 MG TABLET PO SCH ×2 (09:48→22:02)
[2018-02-10] MEDS: TORSEMIDE 20 MG TABLET (FP) PO SCH (09:48)
[2018-02-10] MEDS: methylPREDNISolone NA SUCC 40 MG/1 ML VIAL IVPUSH SCH (09:48)
[2018-02-10] MEDS: TRIAMCINOLONE ACET 0.1% CREAM 15 GM TUBE TP SCH ×2 (09:49→22:01)
[2018-02-10] MEDS: CITALOPRAM HYDROBROMIDE 10 MG TABLET (FP) PO SCH (09:49)
[2018-02-10] MEDS: POLYETHYLENE GLYCOL 3350 119 GM BTL PO SCH (09:49)
[2018-02-10] MEDS: BRIMONIDINE TARTRATE 0.2% OPHTHALMIC 5 ML BOTTLE OD SCH ×2 (09:49→22:03)
[2018-02-10] MEDS: TIOTROPIUM BROMIDE 2.5 MCG (SPIRIVA) RESPIMAT INHALER IH SCH (09:50)
[2018-02-10] MEDS: BUDESONIDE/FORMETEROL FUMARATE 160/4.5 mcg INHALER IH SCH ×2 (09:50→22:01)
[2018-02-10] MEDS: PANTOPRAZOLE 40 MG TABLET (FP) PO SCH ×2 (09:59→22:02)
--- NOTE | 2018-02-10 11:29 | PN ---
Progress Note, Physician - Current Medication List Current Medications: Active Medications Al Hydroxide/Mg Hydroxide (Mylanta Oral Suspension -) 30 ml PO Q6H PRN PRN Reason: DYSPEPSIA Last Admin: 02/07/18 21:24 Dose: 30 ml Albuterol Sulfate (Ventolin 0.083% Nebulizer Soln -) 1 amp NEB Q4H PRN PRN Reason: SHORT OF BREATH/WHEEZING Last Admin: 02/08/18 06:15 Dose: 1 amp Albuterol Sulfate (Ventolin 0.083% Nebulizer Soln -) 1 amp NEB RQID [facility] Last Admin: 02/10/18 07:30 Dose: 1 amp Brimonidine Tartrate (Alphagan 0.2% -) 1 drop OD BID [facility] Last Admin: 02/10/18 09:49 Dose: 1 drop Budesonide/Formoterol Fumarate (Symbicort 160/4.5mcg -) 2 puff IH BID [facility] Last Admin: 02/10/18 09:50 Dose: 2 puff Bupropion HCl (Wellbutrin Xl -) 300 mg PO DAILY [facility] Last Admin: 02/10/18 09:48 Dose: 300 mg Carbidopa/Levodopa (Sinemet 25/100 -) 1 each PO TID [facility] Last Admin: 02/10/18 06:06 Dose: 1 each Cholecalciferol (Vitamin D3 -) 1,000 unit PO DAILY [facility] Last Admin: 02/10/18 09:47 Dose: 1,000 unit Citalopram Hydrobromide (Celexa -) 10 mg PO DAILY [facility] Last Admin: 02/10/18 09:49 Dose: 10 mg Codeine Sulfate (Codeine Sulfate -) 30 mg PO Q4H PRN PRN Reason: COUGH Last Admin: 02/10/18 09:46 Dose: 30 mg Digoxin (Lanoxin -) 0.25 mg PO DAILY [facility] Last Admin: 02/10/18 09:47 Dose: 0.25 mg Docusate Sodium (Colace -) 300 mg PO HS [facility] Last Admin: 02/09/18 21:22 Dose: 300 mg Ferrous Sulfate (Feosol -) 325 mg PO DAILY [facility] Last Admin: 02/10/18 09:47 Dose: 325 mg Guaifenesin/Codeine Phosphate (Robitussin Ac -) 5 ml PO Q4H PRN PRN Reason: COUGH Last Admin: 02/09/18 23:36 Dose: 5 ml Insulin Aspart (Novolog Vial Sliding Scale -) 1 vial SQ TIDAC [facility]; Protocol Last Admin: 02/10/18 11:15 Dose: Not Given Insulin Detemir (Levemir Vial) 40 units SQ AM [facility] Last Admin: 02/10/18 06:06 Dose: 40 unit Ketorolac Tromethamine (Ketorolac 0.5% Eye Drop) 1 drop OD TID [facility] Last Admin: 02/10/18 06:07 Dose: 1 drop Loratadine (Claritin -) 10 mg PO DAILY [facility] Last Admin: 02/10/18 09:47 Dose: 10 mg Montelukast Sodium (Singulair -) 10 mg PO HS [facility] Last Admin: 02/09/18 21:24 Dose: 10 mg Oxycodone HCl (Roxicodone -) 5 mg PO Q6H PRN PRN Reason: PAIN 7-10 Last Admin: 02/09/18 23:36 Dose: 5 mg Pancrelipase (Creon Dr 36,000 Units Capsule) 1 cap PO TIDCM [facility] Last Admin: 02/10/18 08:41 Dose: 1 cap Pantoprazole Sodium (Protonix -) 40 mg PO BID [facility] Last Admin: 02/10/18 09:59 Dose: 40 mg Polyethylene Glycol (Miralax (For Daily Use) -) 17 gm PO DAILY [facility] Last Admin: 02/10/18 09:49 Dose: 17 gm Pramipexole Dihydrochloride (Mirapex -) 0.5 mg PO TID [facility] Last Admin: 02/10/18 06:06 Dose: 0.5 mg Prednisone (Deltasone -) 40 mg PO BID [facility] Ranolazine (Ranexa -) 500 mg PO BID [facility] Last Admin: 02/10/18 09:47 Dose: 500 mg Senna (Senna -) 1 tab PO BID [facility] Last Admin: 02/10/18 09:47 Dose: 1 tab Tiotropium [place] (Spiriva Respimat) 2 puff IH DAILY [facility] Last Admin: 02/10/18 09:50 Dose: 2 puff Topiramate (Topamax -) 150 mg PO BID [facility] Last Admin: 02/10/18 09:48 Dose: 150 mg Torsemide (Demadex -) 40 mg PO DAILY [facility] Last Admin: 02/10/18 09:48 Dose: 40 mg Triamcinolone Acetonide (Aristocort 0.1% Cream -) 1 applic TP BID [facility] Last Admin: 02/10/18 09:49 Dose: 1 applic Verapamil HCl (Calan Sr -) 240 mg PO DAILY [facility] Last Admin: 02/10/18 09:47 Dose: 240 mg Warfarin Sodium 5 mg/ Warfarin (Sodium 3 mg) 8 mg PO DAILY@1800 [facility] Last Admin: 02/09/18 17:43 Dose: 8 mg - Objective Vital Signs: Vital Signs Temperature 98.0 F 02/10/18 10:00 Pulse Rate 62 02/10/18 10:00 Respiratory Rate 20 02/10/18 10:00 Blood Pressure 142/61 02/10/18 10:00 O2 Sat by Pulse Oximetry (%) 95 02/10/18 09:00 Cardiovascular: Yes: S1, S2 Respiratory: Yes: Diminished, On Nasal O2, Rhonchi Gastrointestinal: Yes: Normal Bowel Sounds, Soft Labs: CBC, BMP 02/10/18 08:00 02/10/18 08:00 INR, PTT INR 3.11 (0.83-1.09) H 02/10/18 08:00 Problem List - Problems (1) COPD exacerbation Assessment/Plan: - CXR with congestive changes, WBC 12.8, - Prednisone 40 bid - On 2L at baseline, continue - Symbicort 160/4.5 BID - Spiriva qday - Loratadine 10 mg PO qday - Elevate HOB for better air entry - Nebs 1amp QID [facility] Code(s): J44.1 - CHRONIC OBSTRUCTIVE PULMONARY DISEASE W (ACUTE) EXACERBATION (2) Afib Assessment/Plan: - MV replacement - EKG WNL- sinus - F/u INR 2.5-3.5 since with prosthetic MV - Started on hep gtt since sub-therapeutic - can bridge with coumadin 9mg POqd until therapeutic Code(s): I48.91 - UNSPECIFIED ATRIAL FIBRILLATION Qualifiers: Atrial fibrillation type: paroxysmal Qualified Code(s): I48.0 - Paroxysmal atrial fibrillation (3) CAD (coronary artery disease) Assessment/Plan: - 2 stents (2014) - Continue Ranexa 500 mg PO BID Code(s): I25.10 - ATHSCL HEART DISEASE OF [place] CORONARY ARTERY W/O ANG PCTRS (4) CHF (congestive heart failure) Assessment/Plan: - Currently euvolemic - Continue Torsemide 20mg PO TID - Continue Digoxin 0.25mg PO qd - F/u digoxin level - Fluid restriction - Na controlled diet - 2g Code(s): I50.9 - HEART FAILURE, UNSPECIFIED (5) Cough Code(s): R05 - COUGH (6) IDDM (insulin dependent diabetes mellitus) Assessment/Plan: -bgm Code(s): E11.9 - TYPE 2 DIABETES MELLITUS WITHOUT COMPLICATIONS; Z79.4 - INFORMATICS PHARMACIST (CURRENT) USE OF INSULIN (7) Spinal stenosis Assessment/Plan: - Oxycodone 5 mg PO q6h PRN Code(s): M48.00 - SPINAL STENOSIS, SITE UNSPECIFIED (8) UTI (urinary tract infection) Assessment/Plan: - UA with 3+ Esterase - WBC 22 - Given 1 G Ceftriaxone - Off abx Microbiology 01/29/18 19:37 Urine - Urine Clean Catch Urine Culture - Final NO GROWTH OBTAINED Code(s): N39.0 - URINARY TRACT INFECTION, SITE NOT SPECIFIED Qualifiers: Urinary tract infection type: acute cystitis Hematuria presence: without hematuria Qualified Code(s): N30.00 - Acute cystitis without hematuria (9) Lupus Assessment/Plan: - Dx 2004 - was on MTX but d/c d/t hair falling out - Hx of past skin biopsy with evidence of lupus. - Temporarily on Prednisone 50 mg for COPD, taper to home dose of 20 mg PO qd when appropriate Code(s): L93.0 - DISCOID LUPUS ERYTHEMATOSUS (10) Diabetes Assessment/Plan: - Levemir 40 q SQ qAM - BGM - ISS ACHS Code(s): E11.9 - TYPE 2 DIABETES MELLITUS WITHOUT COMPLICATIONS Qualifiers: Diabetes mellitus type: type 2 Diabetes mellitus complication status: with neurologic complications (11) FIGUEROA (obstructive sleep apnea) Assessment/Plan: - Continue CPAP at night Code(s): G47.33 - OBSTRUCTIVE SLEEP APNEA (ADULT) (PEDIATRIC) (12) Parkinson disease Assessment/Plan: - Continue carbidopa/levodopa 25-100 - Pramipexole 1.5 mg PO qHS - Continue outpatient neuro f/u Code(s): G20 - PARKINSON'S DISEASE
[2018-02-10] MEDS: predniSONE 20 MG TABLET (UD) PO SCH ×2 (12:12→22:01)
--- NOTE | 2018-02-10 13:05 | PN ---
Progress Note (short form) - Note Progress Note: PULMONARY Breathing continues to slowly improve. +nonproductive cough. Vital Signs Period Temp Pulse Resp BP Sys/Wise Pulse Ox Last 24 Hr 98 F-98.9 F 60-71 20-24 115-142/54-62 95-98 Gen: less tachypneic Heart: RRR Lung: less rhonchi, wheezes Abd: soft, nontender Ext: no edema CBC, BMP 02/10/18 08:00 02/10/18 08:00 Active Medications Al Hydroxide/Mg Hydroxide (Mylanta Oral Suspension -) 30 ml PO Q6H PRN PRN Reason: DYSPEPSIA Last Admin: 02/07/18 21:24 Dose: 30 ml Albuterol Sulfate (Ventolin 0.083% Nebulizer Soln -) 1 amp NEB Q4H PRN PRN Reason: SHORT OF BREATH/WHEEZING Last Admin: 02/08/18 06:15 Dose: 1 amp Albuterol Sulfate (Ventolin 0.083% Nebulizer Soln -) 1 amp NEB RQID [facility] Last Admin: 02/10/18 11:50 Dose: 1 amp Brimonidine Tartrate (Alphagan 0.2% -) 1 drop OD BID [facility] Last Admin: 02/10/18 09:49 Dose: 1 drop Budesonide/Formoterol Fumarate (Symbicort 160/4.5mcg -) 2 puff IH BID [facility] Last Admin: 02/10/18 09:50 Dose: 2 puff Bupropion HCl (Wellbutrin Xl -) 300 mg PO DAILY [facility] Last Admin: 02/10/18 09:48 Dose: 300 mg Carbidopa/Levodopa (Sinemet 25/100 -) 1 each PO TID [facility] Last Admin: 02/10/18 06:06 Dose: 1 each Cholecalciferol (Vitamin D3 -) 1,000 unit PO DAILY [facility] Last Admin: 02/10/18 09:47 Dose: 1,000 unit Citalopram Hydrobromide (Celexa -) 10 mg PO DAILY [facility] Last Admin: 02/10/18 09:49 Dose: 10 mg Codeine Sulfate (Codeine Sulfate -) 30 mg PO Q4H PRN PRN Reason: COUGH Last Admin: 02/10/18 09:46 Dose: 30 mg Digoxin (Lanoxin -) 0.25 mg PO DAILY [facility] Last Admin: 02/10/18 09:47 Dose: 0.25 mg Docusate Sodium (Colace -) 300 mg PO HS [facility] Last Admin: 02/09/18 21:22 Dose: 300 mg Ferrous Sulfate (Feosol -) 325 mg PO DAILY [facility] Last Admin: 02/10/18 09:47 Dose: 325 mg Guaifenesin/Codeine Phosphate (Robitussin Ac -) 5 ml PO Q4H PRN PRN Reason: COUGH Last Admin: 02/09/18 23:36 Dose: 5 ml Insulin Aspart (Novolog Vial Sliding Scale -) 1 vial SQ TIDAC [facility]; Protocol Last Admin: 02/10/18 11:15 Dose: Not Given Insulin Detemir (Levemir Vial) 40 units SQ AM [facility] Last Admin: 02/10/18 06:06 Dose: 40 unit Ketorolac Tromethamine (Ketorolac 0.5% Eye Drop) 1 drop OD TID [facility] Last Admin: 02/10/18 06:07 Dose: 1 drop Loratadine (Claritin -) 10 mg PO DAILY [facility] Last Admin: 02/10/18 09:47 Dose: 10 mg Montelukast Sodium (Singulair -) 10 mg PO HS [facility] Last Admin: 02/09/18 21:24 Dose: 10 mg Oxycodone HCl (Roxicodone -) 5 mg PO Q6H PRN PRN Reason: PAIN 7-10 Last Admin: 02/09/18 23:36 Dose: 5 mg Pancrelipase (Creon Dr 36,000 Units Capsule) 1 cap PO TIDCM [facility] Last Admin: 02/10/18 11:30 Dose: 1 cap Pantoprazole Sodium (Protonix -) 40 mg PO BID [facility] Last Admin: 02/10/18 09:59 Dose: 40 mg Polyethylene Glycol (Miralax (For Daily Use) -) 17 gm PO DAILY [facility] Last Admin: 02/10/18 09:49 Dose: 17 gm Pramipexole Dihydrochloride (Mirapex -) 0.5 mg PO TID [facility] Last Admin: 02/10/18 06:06 Dose: 0.5 mg Prednisone (Deltasone -) 40 mg PO BID [facility] Last Admin: 02/10/18 12:12 Dose: Not Given Ranolazine (Ranexa -) 500 mg PO BID [facility] Last Admin: 02/10/18 09:47 Dose: 500 mg Senna (Senna -) 1 tab PO BID [facility] Last Admin: 02/10/18 09:47 Dose: 1 tab Tiotropium [place] (Spiriva Respimat) 2 puff IH DAILY [facility] Last Admin: 02/10/18 09:50 Dose: 2 puff Topiramate (Topamax -) 150 mg PO BID [facility] Last Admin: 02/10/18 09:48 Dose: 150 mg Torsemide (Demadex -) 40 mg PO DAILY [facility] Last Admin: 02/10/18 09:48 Dose: 40 mg Triamcinolone Acetonide (Aristocort 0.1% Cream -) 1 applic TP BID [facility] Last Admin: 02/10/18 09:49 Dose: 1 applic Verapamil HCl (Calan Sr -) 240 mg PO DAILY [facility] Last Admin: 02/10/18 09:47 Dose: 240 mg Warfarin Sodium 5 mg/ Warfarin (Sodium 3 mg) 8 mg PO DAILY@1800 [facility] Last Admin: 02/09/18 17:43 Dose: 8 mg A/P Acute COPD Exacerbation Chronic Hypoxic Respiratory Failure Obstructive Sleep Apnea LV Diastolic Dysfunction CAD h/o MVR Atrial Fibrillation HTN DM Hyperlipidemia Lupus UTI - continue medrol at current dose, likely can change to PO prednisone 40mg daily in AM - inhaled bronchodilators - O2 to keep Spo2 >90% - CPAP at night - rate control - continue anticoagulation - cough suppressants - chest PT Problem List - Problems (1) COPD exacerbation Code(s): J44.1 - CHRONIC OBSTRUCTIVE PULMONARY DISEASE W (ACUTE) EXACERBATION (2) Afib Code(s): I48.91 - UNSPECIFIED ATRIAL FIBRILLATION Qualifiers: Atrial fibrillation type: paroxysmal Qualified Code(s): I48.0 - Paroxysmal atrial fibrillation (3) CAD (coronary artery disease) Code(s): I25.10 - ATHSCL HEART DISEASE OF [place] CORONARY ARTERY W/O ANG PCTRS (4) CHF (congestive heart failure) Code(s): I50.9 - HEART FAILURE, UNSPECIFIED (5) Diabetes Code(s): E11.9 - TYPE 2 DIABETES MELLITUS WITHOUT COMPLICATIONS Qualifiers: Diabetes mellitus type: type 2 Diabetes mellitus complication status: with neurologic complications (6) HTN (hypertension) Code(s): I10 - ESSENTIAL (PRIMARY) HYPERTENSION Qualifiers: Hypertension type: essential hypertension Qualified Code(s): I10 - Essential (primary) hypertension (7) Lupus Code(s): L93.0 - DISCOID LUPUS ERYTHEMATOSUS (8) FIGUEROA (obstructive sleep apnea) Code(s): G47.33 - OBSTRUCTIVE SLEEP APNEA (ADULT) (PEDIATRIC)
[2018-02-10] MEDS ORDERED: WARFARIN NA 5 MG TABLET (UD) ONE (17:24)
[2018-02-10] MEDS ORDERED: WARFARIN NA 3 MG TABLET ONE (17:24)
[2018-02-10] MEDS: WARFARIN NA 5 MG, WARFARIN NA 3 MG PO SCH (17:25)
[2018-02-10] MEDS: MONTELUKAST NA 10 MG TABLET PO SCH (22:02)
[2018-02-10] MEDS: DOCUSATE SODIUM 100 MG CAPSULE (FP) PO SCH (22:02)
[2018-02-10] MEDS: guaiFENesin/CODEINE 5 ML UNIT-DOSE CUPS PO PRN (23:56)
[2018-02-11] MEDS ORDERED: PT OWN MED DRAWER 7, Y5N ONE ×6 (06:07→16:53)
[2018-02-11] MEDS: INSULIN (LEVEMIR) 100 UNITS/ML UNITS SQ SCH (06:10)
[2018-02-11] MEDS: INSULIN SLIDING SCALE (NOVOLOG) 1 VIAL SQ SCH ×3 (06:10→16:13)
[2018-02-11] MEDS: KETOROLAC TROMETHAMINE 0.5% EYE DROP 1 DROP DROPS OD SCH ×2 (06:10→14:04)
[2018-02-11] MEDS: CARBIDOPA/LEVODOPA 25/100 TABLET (FP) PO SCH ×2 (06:11→14:02)
[2018-02-11] MEDS: PRAMIPEXOLE DIHYDROCHLORIDE 0.5 MG TABLET PO SCH ×2 (06:11→14:02)
[2018-02-11] MEDS: LIPASE/PROTEASE/AMYLASE 36,000 UNIT CAPSULE PO SCH ×3 (07:56→16:55)
[2018-02-11] MEDS: ALBUTEROL SO4 0.083% IH SOL 2.5 MG/3 ML VIAL.NEB. NEB SCH ×3 (08:32→15:24)
[2018-02-11] MEDS: CODEINE SO4 30 MG TABLET PO PRN (09:39)
[2018-02-11] MEDS: CITALOPRAM HYDROBROMIDE 10 MG TABLET (FP) PO SCH (09:40)
[2018-02-11] MEDS: LORATADINE 10 MG TABLET PO SCH (09:40)
[2018-02-11] MEDS: DIGOXIN 0.25 MG TABLET (FP) PO SCH (09:40)
[2018-02-11] MEDS: CHOLECALCIFEROL (VITAMIN D3) 1,000 UNIT TABLET (FP) PO SCH (09:40)
[2018-02-11] MEDS: predniSONE 20 MG TABLET (UD) PO SCH (09:40)
[2018-02-11] MEDS: RANOLAZINE E.R. 500 MG TABLET (FP) PO SCH (09:40)
[2018-02-11] MEDS: SENNOSIDES 8.6MG TABLET (FP) PO SCH (09:40)
[2018-02-11] MEDS: PANTOPRAZOLE 40 MG TABLET (FP) PO SCH (09:40)
[2018-02-11] MEDS: TOPIRAMATE 100 MG TABLET PO SCH (09:40)
[2018-02-11] MEDS: FERROUS SO4 325 MG TABLET (FP) PO SCH (09:41)
[2018-02-11] MEDS: TORSEMIDE 20 MG TABLET (FP) PO SCH (09:41)
[2018-02-11] MEDS: VERAPAMIL HCL 240 MG E.R. TABLET (FP) PO SCH (09:41)
[2018-02-11] MEDS: TRIAMCINOLONE ACET 0.1% CREAM 15 GM TUBE TP SCH (09:41)
[2018-02-11] MEDS: POLYETHYLENE GLYCOL 3350 119 GM BTL PO SCH (09:41)
[2018-02-11] MEDS: BRIMONIDINE TARTRATE 0.2% OPHTHALMIC 5 ML BOTTLE OD SCH (09:42)
[2018-02-11] MEDS: BUDESONIDE/FORMETEROL FUMARATE 160/4.5 mcg INHALER IH SCH (09:42)
[2018-02-11] MEDS: TIOTROPIUM BROMIDE 2.5 MCG (SPIRIVA) RESPIMAT INHALER IH SCH (09:43)
[2018-02-11 09:45] VITALS: PULSE 68
--- NOTE | 2018-02-11 10:06 | PN ---
Progress Note, Physician Chief Complaint: sob History of Present Illness: sob much better. cough much better no new cp (only chest wall pain with cough) no leg swelling - Current Medication List Current Medications: Active Medications Al Hydroxide/Mg Hydroxide (Mylanta Oral Suspension -) 30 ml PO Q6H PRN PRN Reason: DYSPEPSIA Last Admin: 02/07/18 21:24 Dose: 30 ml Albuterol Sulfate (Ventolin 0.083% Nebulizer Soln -) 1 amp NEB Q4H PRN PRN Reason: SHORT OF BREATH/WHEEZING Last Admin: 02/08/18 06:15 Dose: 1 amp Albuterol Sulfate (Ventolin 0.083% Nebulizer Soln -) 1 amp NEB RQID [facility] Last Admin: 02/11/18 08:32 Dose: 1 amp Brimonidine Tartrate (Alphagan 0.2% -) 1 drop OD BID [facility] Last Admin: 02/11/18 09:42 Dose: 1 drop Budesonide/Formoterol Fumarate (Symbicort 160/4.5mcg -) 2 puff IH BID [facility] Last Admin: 02/11/18 09:42 Dose: 2 puff Bupropion HCl (Wellbutrin Xl -) 300 mg PO DAILY [facility] Last Admin: 02/11/18 09:40 Dose: 300 mg Carbidopa/Levodopa (Sinemet 25/100 -) 1 each PO TID [facility] Last Admin: 02/11/18 06:11 Dose: 1 each Cholecalciferol (Vitamin D3 -) 1,000 unit PO DAILY [facility] Last Admin: 02/11/18 09:40 Dose: 1,000 unit Citalopram Hydrobromide (Celexa -) 10 mg PO DAILY [facility] Last Admin: 02/11/18 09:40 Dose: 10 mg Codeine Sulfate (Codeine Sulfate -) 30 mg PO Q4H PRN PRN Reason: COUGH Last Admin: 02/11/18 09:39 Dose: 30 mg Digoxin (Lanoxin -) 0.25 mg PO DAILY [facility] Last Admin: 02/11/18 09:40 Dose: 0.25 mg Docusate Sodium (Colace -) 300 mg PO HS [facility] Last Admin: 02/10/18 22:02 Dose: 300 mg Ferrous Sulfate (Feosol -) 325 mg PO DAILY [facility] Last Admin: 02/11/18 09:41 Dose: 325 mg Guaifenesin/Codeine Phosphate (Robitussin Ac -) 5 ml PO Q4H PRN PRN Reason: COUGH Last Admin: 02/10/18 23:56 Dose: 5 ml Insulin Aspart (Novolog Vial Sliding Scale -) 1 vial SQ TIDAC [facility]; Protocol Last Admin: 02/11/18 06:10 Dose: 4 units Insulin Detemir (Levemir Vial) 40 units SQ AM [facility] Last Admin: 02/11/18 06:10 Dose: 40 unit Ketorolac Tromethamine (Ketorolac 0.5% Eye Drop) 1 drop OD TID [facility] Last Admin: 02/11/18 06:10 Dose: 1 drop Loratadine (Claritin -) 10 mg PO DAILY [facility] Last Admin: 02/11/18 09:40 Dose: 10 mg Montelukast Sodium (Singulair -) 10 mg PO HS [facility] Last Admin: 02/10/18 22:02 Dose: 10 mg Oxycodone HCl (Roxicodone -) 5 mg PO Q6H PRN PRN Reason: PAIN 7-10 Last Admin: 02/09/18 23:36 Dose: 5 mg Pancrelipase (Creon Dr 36,000 Units Capsule) 1 cap PO TIDCM [facility] Last Admin: 02/11/18 07:56 Dose: 1 cap Pantoprazole Sodium (Protonix -) 40 mg PO BID [facility] Last Admin: 02/11/18 09:40 Dose: 40 mg Polyethylene Glycol (Miralax (For Daily Use) -) 17 gm PO DAILY [facility] Last Admin: 02/11/18 09:41 Dose: Not Given Pramipexole Dihydrochloride (Mirapex -) 0.5 mg PO TID [facility] Last Admin: 02/11/18 06:11 Dose: 0.5 mg Prednisone (Deltasone -) 40 mg PO BID [facility] Last Admin: 02/11/18 09:40 Dose: 40 mg Ranolazine (Ranexa -) 500 mg PO BID [facility] Last Admin: 02/11/18 09:40 Dose: 500 mg Senna (Senna -) 1 tab PO BID [facility] Last Admin: 02/11/18 09:40 Dose: 1 tab Tiotropium [place] (Spiriva Respimat) 2 puff IH DAILY [facility] Last Admin: 11/26/18 09:43 Dose: 2 puff Topiramate (Topamax -) 150 mg PO BID [facility] Last Admin: 02/11/18 09:40 Dose: 150 mg Torsemide (Demadex -) 40 mg PO DAILY [facility] Last Admin: 02/11/18 09:41 Dose: 40 mg Triamcinolone Acetonide (Aristocort 0.1% Cream -) 1 applic TP BID [facility] Last Admin: 02/11/18 09:41 Dose: 1 applic Verapamil HCl (Calan Sr -) 240 mg PO DAILY [facility] Last Admin: 02/11/18 09:41 Dose: 240 mg Warfarin Sodium 5 mg/ Warfarin (Sodium 3 mg) 8 mg PO DAILY@1800 [facility] Last Admin: 02/10/18 17:25 Dose: 8 mg - Objective Vital Signs: Vital Signs Temperature 97.7 F 02/11/18 05:31 Pulse Rate 68 02/11/18 09:40 Respiratory Rate 20 02/11/18 05:31 Blood Pressure 146/58 L 02/11/18 05:31 O2 Sat by Pulse Oximetry (%) 95 02/10/18 21:00 Constitutional: Yes: Well Nourished, No Distress, Calm Cardiovascular: Yes: Regular Rate and Rhythm (mech click), S1, S2. No: Gallop, Murmur Respiratory: Yes: Regular, CTA Bilaterally. No: Accessory Muscle Use, Rales, Rhonchi, Wheezes Extremities: No: Cold Edema: No Neurological: Yes: Alert, Oriented Psychiatric: No: Agitated Labs: CBC, BMP 02/10/18 08:00 02/10/18 08:00 INR, PTT INR 3.11 (0.83-1.09) H 02/10/18 08:00 Assessment/Plan ecg 07/03/14: sr, nl intervals, no ischemic changes, no sig change from prior cxr: no chf echo 10/2016: nl lv/rv, mild lae, nl mech mvr, small pericardial eff ( previously reported) echo ([facility]) 03/2017: nl lv/rv, nl mvr, mild as mibi 2016: no ecg changes, no ischemia/scar, nl lvef a/p: 67 year old lady with past medical history of COPD on home 02, FIGUEROA (on cpap at home), CAD (s/p single vessel CABG 2006 with RUSSELL to OM and ROSALINA x2 to LAD 12/2011; last cath 06/2014 showed patent RUSSELL, patent LAD stents, no sig residual dz except for 80-90% OM that is bypassed), [facility] mvr ([facility] [place], 2006, on coumadin), anemia, TIA, dCHF, DM, HTN, pafib, antiphospholipid syndrome (on coumadin), fibromyalgia, migraines, chronic atypical cp, obesity, LBP here with sob, cough. acute copd exacerbation: -no signs chf or acs -copd tx (BDs, steroids) per pulm -improving gradually Atyp CP: -chronic recurrent sx for the pt, worsened now due to coughing from copd -MSK features, reproducible on exam--sec to severe coughing fits, +/- fibromyalgia -NST for this cp in 12/2013 and 04/2016 showed no ischemia and prior cath for this persistent cp 06/2014 showed patent graft and prior pci, no significant residual dz cad, s/p cabg, pci: -as above -normal lvef on recent echo, no anginal sxs -no bb due to copd, on verapamil instead -not on statin due to prior intolerance -cont ranexa for possible small vessel dz symptoms -given her epistaxis asa stopped as she is on ac. dizziness: -pt c/o some dizziness at times (not positional, occurs even when laying down still in bed). Persisted even with holding ranexa so not side effect related. Recent holter and echo unremarkable. Continued outpt f/u with neuro, ent. [facility] MVR: -on AC w/ coumadin, target INR 2.5 to 3.5, cont lovenox bridging while inr subtherapeutic -recent echo with normal [facility] mvr function Hx of mod pericardial effusion: -no effusion reported on recent echo HTN: Remains controlled on current meds. pafib: -rare episodes in past -remains in sr -recent holter showed sr only -continue verapamil and dig (level ok here) -cont ac with coumadin, has hx of TIA chronic HFpEF: -vol status has been stable on torsemide 40-80 qd. -baseline wt has been high 190lbs, below that here -likely is euvolemic--cont torsemide 40 qd as doing
[2018-02-11 10:15] VITALS: BP 132/65; TEMP 96.9
--- NOTE | 2018-02-11 10:39 | PN ---
Progress Note, Physician Chief Complaint: COPD exacerbation History of Present Illness: NAD sitting in bed, wants to go home Seen by Pulmonary - Current Medication List Current Medications: Active Medications Al Hydroxide/Mg Hydroxide (Mylanta Oral Suspension -) 30 ml PO Q6H PRN PRN Reason: DYSPEPSIA Last Admin: 02/07/18 21:24 Dose: 30 ml Albuterol Sulfate (Ventolin 0.083% Nebulizer Soln -) 1 amp NEB Q4H PRN PRN Reason: SHORT OF BREATH/WHEEZING Last Admin: 02/08/18 06:15 Dose: 1 amp Albuterol Sulfate (Ventolin 0.083% Nebulizer Soln -) 1 amp NEB RQID [facility] Last Admin: 02/11/18 08:32 Dose: 1 amp Brimonidine Tartrate (Alphagan 0.2% -) 1 drop OD BID [facility] Last Admin: 02/11/18 09:42 Dose: 1 drop Budesonide/Formoterol Fumarate (Symbicort 160/4.5mcg -) 2 puff IH BID [facility] Last Admin: 02/11/18 09:42 Dose: 2 puff Bupropion HCl (Wellbutrin Xl -) 300 mg PO DAILY [facility] Last Admin: 02/11/18 09:40 Dose: 300 mg Carbidopa/Levodopa (Sinemet 25/100 -) 1 each PO TID [facility] Last Admin: 02/11/18 06:11 Dose: 1 each Cholecalciferol (Vitamin D3 -) 1,000 unit PO DAILY [facility] Last Admin: 02/11/18 09:40 Dose: 1,000 unit Citalopram Hydrobromide (Celexa -) 10 mg PO DAILY [facility] Last Admin: 02/11/18 09:40 Dose: 10 mg Codeine Sulfate (Codeine Sulfate -) 30 mg PO Q4H PRN PRN Reason: COUGH Last Admin: 02/11/18 09:39 Dose: 30 mg Digoxin (Lanoxin -) 0.25 mg PO DAILY [facility] Last Admin: 02/11/18 09:40 Dose: 0.25 mg Docusate Sodium (Colace -) 300 mg PO HS [facility] Last Admin: 02/10/18 22:02 Dose: 300 mg Ferrous Sulfate (Feosol -) 325 mg PO DAILY [facility] Last Admin: 02/11/18 09:41 Dose: 325 mg Guaifenesin/Codeine Phosphate (Robitussin Ac -) 5 ml PO Q4H PRN PRN Reason: COUGH Last Admin: 02/10/18 23:56 Dose: 5 ml Insulin Aspart (Novolog Vial Sliding Scale -) 1 vial SQ TIDAC [facility]; Protocol Last Admin: 02/11/18 06:10 Dose: 4 units Insulin Detemir (Levemir Vial) 40 units SQ AM [facility] Last Admin: 02/11/18 06:10 Dose: 40 unit Ketorolac Tromethamine (Ketorolac 0.5% Eye Drop) 1 drop OD TID [facility] Last Admin: 02/11/18 06:10 Dose: 1 drop Loratadine (Claritin -) 10 mg PO DAILY [facility] Last Admin: 02/11/18 09:40 Dose: 10 mg Montelukast Sodium (Singulair -) 10 mg PO HS [facility] Last Admin: 02/10/18 22:02 Dose: 10 mg Oxycodone HCl (Roxicodone -) 5 mg PO Q6H PRN PRN Reason: PAIN 7-10 Last Admin: 02/09/18 23:36 Dose: 5 mg Pancrelipase (Creon Dr 36,000 Units Capsule) 1 cap PO TIDCM [facility] Last Admin: 02/11/18 07:56 Dose: 1 cap Pantoprazole Sodium (Protonix -) 40 mg PO BID [facility] Last Admin: 02/11/18 09:40 Dose: 40 mg Polyethylene Glycol (Miralax (For Daily Use) -) 17 gm PO DAILY [facility] Last Admin: 02/11/18 09:41 Dose: Not Given Pramipexole Dihydrochloride (Mirapex -) 0.5 mg PO TID [facility] Last Admin: 02/11/18 06:11 Dose: 0.5 mg Prednisone (Deltasone -) 40 mg PO BID [facility] Last Admin: 02/11/18 09:40 Dose: 40 mg Ranolazine (Ranexa -) 500 mg PO BID [facility] Last Admin: 02/11/18 09:40 Dose: 500 mg Senna (Senna -) 1 tab PO BID [facility] Last Admin: 02/11/18 09:40 Dose: 1 tab Tiotropium [place] (Spiriva Respimat) 2 puff IH DAILY [facility] Last Admin: 02/11/18 09:43 Dose: 2 puff Topiramate (Topamax -) 150 mg PO BID [facility] Last Admin: 02/11/18 09:40 Dose: 150 mg Torsemide (Demadex -) 40 mg PO DAILY [facility] Last Admin: 02/11/18 09:41 Dose: 40 mg Triamcinolone Acetonide (Aristocort 0.1% Cream -) 1 applic TP BID [facility] Last Admin: 02/11/18 09:41 Dose: 1 applic Verapamil HCl (Calan Sr -) 240 mg PO DAILY [facility] Last Admin: 02/11/18 09:41 Dose: 240 mg Warfarin Sodium 5 mg/ Warfarin (Sodium 3 mg) 8 mg PO DAILY@1800 [facility] Last Admin: 02/10/18 17:25 Dose: 8 mg - Objective Vital Signs: Vital Signs Temperature 96.9 F L 02/11/18 10:00 Pulse Rate 68 02/11/18 10:00 Respiratory Rate 20 02/11/18 10:00 Blood Pressure 132/65 02/11/18 10:00 O2 Sat by Pulse Oximetry (%) 95 02/10/18 21:00 Constitutional: Yes: Well Nourished, No Distress, Calm Cardiovascular: Yes: Regular Rate and Rhythm Respiratory: Yes: Diminished, On Nasal O2, SOB on Exertion Gastrointestinal: Yes: Normal Bowel Sounds, Soft, Abdomen, Obese Musculoskeletal: Yes: WNL Extremities: Yes: WNL Edema: No Peripheral Pulses WNL: Yes Neurological: Yes: Alert, Oriented, Tremors (2/2 parkinsons) Psychiatric: Yes: Alert, Oriented Labs: CBC, BMP 02/10/18 08:00 02/10/18 08:00 INR, PTT INR 3.11 (0.83-1.09) H 02/10/18 08:00 Problem List - Problems (1) Diabetes Assessment/Plan: -Last A1c at 7.8 -diabetic low Na diet -Levemir 40 Units QAM -RD consult -BGM AC HS -Novolog sliding scale Code(s): E11.9 - TYPE 2 DIABETES MELLITUS WITHOUT COMPLICATIONS Qualifiers: Diabetes mellitus type: type 2 Diabetes mellitus complication status: with neurologic complications (2) COPD (chronic obstructive pulmonary disease) Assessment/Plan: -Seen by Pulmonary -On prednisone 40 mg po BID, switch to 40 mg po once daily and taper every other day -Nasal O2 -Bronchodilators -Symbicort + spiriva +Singulair Code(s): J44.9 - CHRONIC OBSTRUCTIVE PULMONARY DISEASE, UNSPECIFIED Qualifiers: COPD type: COPD with acute exacerbation Qualified Code(s): J44.1 - Chronic obstructive pulmonary disease with (acute) exacerbation (3) CAD (coronary artery disease) Assessment/Plan: -Seen by Cardiology -normal lvef on recent echo, no anginal symptoms -no bb due to copd, on verapamil instead -not on statin due to prior intolerance -cont ranexa for possible small vessel disease symptoms -given her epistaxis asa stopped as she is on ac. Code(s): I25.10 - ATHSCL HEART DISEASE OF [place] CORONARY ARTERY W/O ANG PCTRS (4) H/O prosthetic mitral valve Assessment/Plan: -hx of prosthetic mechanical valve -INR goal 2.5-3.5 -INR at 3.11 -Continue coumadin 8 mh po daily -INR check in 1 week outpatient Assessment/Plan see problem list d/c home with Home care services Has Home O2- concentrator and portable Would need transportation for home
--- NOTE | 2018-02-11 10:48 | DS ---
Physical Examination Vital Signs: Vital Signs Temperature 96.9 F L 02/11/18 10:00 Pulse Rate 68 02/11/18 10:00 Respiratory Rate 20 02/11/18 10:00 Blood Pressure 132/65 02/11/18 10:00 O2 Sat by Pulse Oximetry (%) 95 02/10/18 21:00 Findings/Remarks: 67 year old female with a PMH significant for HTN, HLD, Parkinson's, Lupus, Fibromyalgia, DM, CHF, COPD (on 2L at home), sleep apnea (on CPAP), atrial fibrillation (on coumadin), anemia, asthma, glaucoma, MV replacement, CVA, spinal stenosis, CAD s/p 2 stents (2014) BIBA to ED with worsening cough, congestion and SOB over the past week. She said she had subjective fevers at home an intermittent diarrhea. She reported at one point having a crushing chest pain a few days ago which went away, no her chest only hurts when she coughs. Patient had a spinal block this week for her spinal stenosis, and her coumadin was held for one week, she re-started her coumadin and lovenox yesterday. She had an colonoscopy and endoscopy in November and a malignant polyp was removed. Upon admission to the ED, she was afebrile, VSS, labs notable for WBC of 12.8, INR subtheraputic at 1.24, UA +3 esterace, WBC 22, CXR notable for congestive changes compared with 2 months ago. Patient unable to have CTA given allergy to contrast. Constitutional: Yes: Well Nourished, No Distress, Calm Cardiovascular: Yes: Regular Rate and Rhythm Respiratory: Yes: Diminished (BLLL), On Nasal O2, SOB on Exertion Gastrointestinal: Yes: Normal Bowel Sounds, Soft, Abdomen, Obese Musculoskeletal: Yes: WNL Extremities: Yes: WNL Edema: No Peripheral Pulses WNL: Yes Neurological: Yes: Alert, Oriented Psychiatric: Yes: Alert, Oriented Labs: CBC, BMP 02/10/18 08:00 02/10/18 08:00 Discharge Summary Reason For Visit: SHORTNESS OF BREATH,SUBTHERAPEUTIC ANTICOAGULATION Current Active Problems COPD exacerbation (Acute) Chest pain (Acute) Parkinson disease (Acute) SOB (shortness of breath) (Acute) Hospital Course: Laboratory Last Values WBC 17.8 K/mm3 (4.0-10.0) H 02/10/18 08:00 RBC 4.33 M/mm3 (3.60-5.2) 02/10/18 08:00 Hgb 11.9 GM/dL (10.7-15.3) 02/10/18 08:00 Hct 37.8 % (32.4-45.2) 02/10/18 08:00 MCV 87.3 fl (80-96) 02/10/18 08:00 MCH 27.5 pg (25.7-33.7) 02/10/18 08:00 MCHC 31.5 g/dl (32.0-36.0) L 02/10/18 08:00 RDW 15.2 % (11.6-15.6) 02/10/18 08:00 Plt Count 280 K/MM3 (134-434) 02/10/18 08:00 MPV 9.4 fl (7.5-11.1) 02/10/18 08:00 Absolute Neuts (auto) 14.6 K/mm3 (1.5-8.0) H 02/10/18 08:00 Neutrophils % 82.1 % (42.8-82.8) 02/10/18 08:00 Neutrophils % (Manual) 93.0 % (42.8-82.8) H 01/29/18 17:07 Band Neutrophils % 0.0 % 01/29/18 17:07 Lymphocytes % 11.2 % (8-40) D 02/10/18 08:00 Lymphocytes % (Manual) 3.0 % (8-40) L D 01/29/18 17:07 Monocytes % 6.5 % (3.8-10.2) 02/10/18 08:00 Monocytes % (Manual) 4 % (3.8-10.2) 01/29/18 17:07 Eosinophils % 0.1 % (0-4.5) D 02/10/18 08:00 Eosinophils % (Manual) 0.0 % (0-4.5) D 01/29/18 17:07 Basophils % 0.1 % (0-2.0) 02/10/18 08:00 Basophils % (Manual) 0.0 % (0-2.0) 01/29/18 17:07 Nucleated RBC % 0 % (0-0) 02/10/18 08:00 PT with INR 37.10 SEC (9.7-13.0) H 02/10/18 08:00 INR 3.11 (0.83-1.09) H 02/10/18 08:00 VBG pH 7.35 (7.32-7.42) 01/29/18 17:07 POC VBG pCO2 39.0 mmHg (38-52) 01/29/18 17:07 POC VBG pO2 56.0 mmHg (28-48) H 01/29/18 17:07 Mixed VBG HCO3 21.0 meq/L (19-25) 01/29/18 17:07 Sodium 137 mmol/L (136-145) 02/10/18 08:00 Potassium 3.9 mmol/L (3.5-5.1) 02/10/18 08:00 Chloride 102 mmol/L (98-107) 02/10/18 08:00 Carbon Dioxide 30 mmol/L (21-32) 02/10/18 08:00 Anion Gap 5 MMOL/L (8-16) L 02/10/18 08:00 BUN 35 mg/dL (7-18) H 02/10/18 08:00 Creatinine 1.1 mg/dL (0.55-1.3) 02/10/18 08:00 Creat Clearance w eGFR 49.69 (>60) 02/10/18 08:00 POC Glucometer 239 UNITS (80-120) 02/11/18 06:09 Random Glucose 130 mg/dL (74-106) H 02/10/18 08:00 Calcium 8.7 mg/dL (8.5-10.1) 02/10/18 08:00 Phosphorus 3.3 mg/dL (2.5-4.9) 02/01/18 06:45 Magnesium 3.0 mg/dL (1.8-2.4) H 02/05/18 06:15 Total Bilirubin 0.6 mg/dL (0.2-1) 02/10/18 08:00 AST 8 U/L (15-37) L 02/10/18 08:00 ALT 9 U/L (13-61) L 02/10/18 08:00 Alkaline Phosphatase 80 U/L (45-117) 02/10/18 08:00 Troponin I < 0.02 ng/ml (0.00-0.05) 01/30/18 07:28 Total Protein 6.3 g/dl (6.4-8.2) L 02/10/18 08:00 Albumin 3.2 g/dl (3.4-5.0) L 02/10/18 08:00 Urine Color Yellow 01/29/18 19:37 Urine Appearance Slcloudy 01/29/18 19:37 Urine pH 5.0 (5.0-8.0) D 01/29/18 19:37 Ur Specific [place] 1.021 (1.010-1.035) 01/29/18 19:37 Urine Protein Negative (NEGATIVE) 01/29/18 19:37 Urine Glucose (UA) Negative (NEGATIVE) 01/29/18 19:37 Urine Ketones Negative (NEGATIVE) 01/29/18 19:37 Urine Blood Negative (NEGATIVE) 01/29/18 19:37 Urine Nitrite Negative (NEGATIVE) 01/29/18 19:37 Urine Bilirubin Negative (<2.0 mg/dL) 01/29/18 19:37 Urine Urobilinogen 2.0 mg/dL (0.2-1.0) H 01/29/18 19:37 Ur Leukocyte Esterase 3+ (NEGATIVE) H 01/29/18 19:37 Urine WBC (Auto) 22 /hpf (3-5) 01/29/18 19:37 Urine RBC (Auto) 13 /hpf (0-3) 01/29/18 19:37 Ur Epithelial Cells Moderate /HPF (FEW) 01/29/18 19:37 Urine Bacteria Rare /hpf (NONE SEEN) 01/29/18 19:37 Urine Mucus Few 01/29/18 19:37 Digoxin 1.07 ng/ml (0.8-2.0) 01/31/18 06:15 Microbiology 02/09/18 17:00 Nares - Mrsa Screen - Right MRSA Screen - Final NO MRSA ISOLATED 02/09/18 17:00 Nares - Mrsa Screen - Left MRSA Screen - Final NO MRSA ISOLATED 01/29/18 19:37 Urine - Urine Clean Catch Urine Culture - Final NO GROWTH OBTAINED Condition: Stable - Instructions Diet, Activity, Other Instructions: -Diabetic, low sodium, low cholesterol diet -Prednisone, take as followin mg daily x 3 days, then 30 mg daily x 3 days, then 20 mg daily x 3 days, then 10 mg daily x 3 days, then 5 mg daily x 3 days, then stop. -Follow up with PCP, Pulmonary and cardiology within next 2 weeks -INR check in 1 week Disposition: VNS/HOME HEALTH CARE - Home Medications Comprehensive Discharge Medication List: Ambulatory Orders Albuterol 0.083% Nebulizer [place] [Ventolin 0.083% Nebulizer Soln -] 1 neb NEB QID 06/21/17 Bupropion HCl [Wellbutrin Xl] 300 mg PO DAILY 06/21/17 Carbidopa/Levodopa [Carbidopa-Levodopa 25-100 Tab] 1 each PO TID 06/21/17 Cholecalciferol (Vitamin D3) [Vitamin D -] 1,000 unit PO DAILY 06/21/17 Citalopram Hydrobromide [Celexa -] 10 mg PO DAILY 06/21/17 Digoxin [Lanoxin -] 0.25 mg PO DAILY 06/21/17 Ferrous Sulfate [Iron] 325 mg PO DAILY 06/21/17 Hypromellose 0.5% Opth Soln [Artificial Tears] 1 drop OD QID 06/21/17 Pantoprazole Sodium [Protonix] 40 mg PO DAILY 06/21/17 Pramipexole Di-HCl [Mirapex] 0.5 mg PO TID 06/21/17 Ranolazine [Ranexa] 500 mg PO BID 06/21/17 Topiramate [Topamax] 150 mg PO BID 06/21/17 Verapamil HCl [Calan Sr] 240 mg PO DAILY 06/21/17 Triamcinolone 0.1% Cream [Aristocort 0.1% Cream -] 1 applic TP BID #60 gm Insulin Glargine,Hum.rec.anlog [Lantus Solostar PEN -] 40 units SQ AM 07/29/17 Torsemide [Demadex -] 40 mg PO AM 07/29/17 Budesonide/Formeterol Fumarate [SYMBICORT 160/4.5mcg -] 2 puff IH BID #1 inhaler MDD 2 08/06/17 Docusate Sodium [Colace -] 300 mg PO HS capsule 08/06/17 Insulin (Levemir) [Levemir Vial] 40 units SQ AM ml 08/06/17 Loratadine [Claritin -] 10 mg PO DAILY tablet 08/06/17 Tiotropium [place] [Spiriva] 1 puff IH DAILY cap 08/06/17 Warfarin Na [Coumadin -] 9 mg PO [id number] tablet 08/06/17 oxyCODONE HCL [Roxicodone -] 5 mg PO Q6H PRN #7 tablet MDD 3 08/06/17 predniSONE [Deltasone -] 20 mg PO DAILY #10 tablet 08/06/17 Brimonidine Tartrate [Alphagan 0.2% -] 1 drop BID 01/31/18 Ketorolac 0.5% Eye Drop 1 drop OP TID 01/31/18
--- NOTE | 2018-02-11 11:22 | PN ---
Progress Note (short form) - Note Progress Note: Breathing slowly improving. Nonproductive cough. No CP. Intake & Output 02/08/18 02/09/18 02/10/18 02/11/18 23:59 23:59 23:59 23:59 Intake Total 985 947 9354 Balance 353 368 5448 Weight 182 lb 3.2 oz 185 lb 183 lb 183 lb 2 oz Last Vital Signs Temp Pulse Resp BP Pulse Ox 96.9 F L 68 20 132/65 95 02/11/18 10:00 02/11/18 10:00 02/11/18 10:00 02/11/18 10:00 02/10/18 21:00 Active Medications Al Hydroxide/Mg Hydroxide (Mylanta Oral Suspension -) 30 ml PO Q6H PRN PRN Reason: DYSPEPSIA Last Admin: 02/07/18 21:24 Dose: 30 ml Albuterol Sulfate (Ventolin 0.083% Nebulizer Soln -) 1 amp NEB Q4H PRN PRN Reason: SHORT OF BREATH/WHEEZING Last Admin: 02/08/18 06:15 Dose: 1 amp Albuterol Sulfate (Ventolin 0.083% Nebulizer Soln -) 1 amp NEB RQID [facility] Last Admin: 02/11/18 08:32 Dose: 1 amp Brimonidine Tartrate (Alphagan 0.2% -) 1 drop OD BID [facility] Last Admin: 02/11/18 09:42 Dose: 1 drop Budesonide/Formoterol Fumarate (Symbicort 160/4.5mcg -) 2 puff IH BID [facility] Last Admin: 02/11/18 09:42 Dose: 2 puff Bupropion HCl (Wellbutrin Xl -) 300 mg PO DAILY [facility] Last Admin: 02/11/18 09:40 Dose: 300 mg Carbidopa/Levodopa (Sinemet 25/100 -) 1 each PO TID [facility] Last Admin: 02/11/18 06:11 Dose: 1 each Cholecalciferol (Vitamin D3 -) 1,000 unit PO DAILY [facility] Last Admin: 02/11/18 09:40 Dose: 1,000 unit Citalopram Hydrobromide (Celexa -) 10 mg PO DAILY [facility] Last Admin: 02/11/18 09:40 Dose: 10 mg Codeine Sulfate (Codeine Sulfate -) 30 mg PO Q4H PRN PRN Reason: COUGH Last Admin: 02/11/18 09:39 Dose: 30 mg Digoxin (Lanoxin -) 0.25 mg PO DAILY [facility] Last Admin: 02/11/18 09:40 Dose: 0.25 mg Docusate Sodium (Colace -) 300 mg PO HS [facility] Last Admin: 02/10/18 22:02 Dose: 300 mg Ferrous Sulfate (Feosol -) 325 mg PO DAILY [facility] Last Admin: 02/11/18 09:41 Dose: 325 mg Guaifenesin/Codeine Phosphate (Robitussin Ac -) 5 ml PO Q4H PRN PRN Reason: COUGH Last Admin: 02/10/18 23:56 Dose: 5 ml Insulin Aspart (Novolog Vial Sliding Scale -) 1 vial SQ TIDAC [facility]; Protocol Last Admin: 02/11/18 11:07 Dose: 8 units Insulin Detemir (Levemir Vial) 40 units SQ AM [facility] Last Admin: 02/11/18 06:10 Dose: 40 unit Ketorolac Tromethamine (Ketorolac 0.5% Eye Drop) 1 drop OD TID [facility] Last Admin: 02/11/18 06:10 Dose: 1 drop Loratadine (Claritin -) 10 mg PO DAILY [facility] Last Admin: 02/11/18 09:40 Dose: 10 mg Montelukast Sodium (Singulair -) 10 mg PO HS [facility] Last Admin: 02/10/18 22:02 Dose: 10 mg Oxycodone HCl (Roxicodone -) 5 mg PO Q6H PRN PRN Reason: PAIN 7-10 Last Admin: 02/09/18 23:36 Dose: 5 mg Pancrelipase (Creon Dr 36,000 Units Capsule) 1 cap PO TIDCM [facility] Last Admin: 02/11/18 07:56 Dose: 1 cap Pantoprazole Sodium (Protonix -) 40 mg PO BID [facility] Last Admin: 02/11/18 09:40 Dose: 40 mg Polyethylene Glycol (Miralax (For Daily Use) -) 17 gm PO DAILY [facility] Last Admin: 02/11/18 09:41 Dose: Not Given Pramipexole Dihydrochloride (Mirapex -) 0.5 mg PO TID [facility] Last Admin: 02/11/18 06:11 Dose: 0.5 mg Prednisone (Deltasone -) 40 mg PO BID [facility] Last Admin: 02/11/18 09:40 Dose: 40 mg Ranolazine (Ranexa -) 500 mg PO BID [facility] Last Admin: 02/11/18 09:40 Dose: 500 mg Senna (Senna -) 1 tab PO BID [facility] Last Admin: 02/11/18 09:40 Dose: 1 tab Tiotropium [place] (Spiriva Respimat) 2 puff IH DAILY [facility] Last Admin: 02/11/18 09:43 Dose: 2 puff Topiramate (Topamax -) 150 mg PO BID [facility] Last Admin: 02/11/18 09:40 Dose: 150 mg Torsemide (Demadex -) 40 mg PO DAILY [facility] Last Admin: 02/11/18 09:41 Dose: 40 mg Triamcinolone Acetonide (Aristocort 0.1% Cream -) 1 applic TP BID [facility] Last Admin: 02/11/18 09:41 Dose: 1 applic Verapamil HCl (Calan Sr -) 240 mg PO DAILY [facility] Last Admin: 02/11/18 09:41 Dose: 240 mg Warfarin Sodium 5 mg/ Warfarin (Sodium 3 mg) 8 mg PO DAILY@1800 [facility] Last Admin: 02/10/18 17:25 Dose: 8 mg Constitutional: Yes: Awake and alert, NAD Eyes: Yes: Conjunctiva Clear, EOM Intact HENT: Yes: Atraumatic, Normocephalic Neck: Yes: Supple, Trachea Midline Cardiovascular: Yes: Pulse Irregular Respiratory: Yes: Rhonchi, No Wheezes ...Clubbing: No Gastrointestinal: Yes: Normal Bowel Sounds, Soft. No: Tenderness Edema: No Neurological: Yes: Alert, Oriented Labs: Laboratory Results - last 24 hr 02/10/18 02/10/18 02/11/18 11:13 16:53 06:09 POC Glucometer 151 237 239 Problem List - Problems (1) COPD exacerbation Code(s): J44.1 - CHRONIC OBSTRUCTIVE PULMONARY DISEASE W (ACUTE) EXACERBATION (2) Afib Code(s): I48.91 - UNSPECIFIED ATRIAL FIBRILLATION Qualifiers: Atrial fibrillation type: paroxysmal Qualified Code(s): I48.0 - Paroxysmal atrial fibrillation (3) CAD (coronary artery disease) Code(s): I25.10 - ATHSCL HEART DISEASE OF [place] CORONARY ARTERY W/O ANG PCTRS (4) CHF (congestive heart failure) Code(s): I50.9 - HEART FAILURE, UNSPECIFIED (5) Diabetes Code(s): E11.9 - TYPE 2 DIABETES MELLITUS WITHOUT COMPLICATIONS Qualifiers: Diabetes mellitus type: type 2 Diabetes mellitus complication status: with neurologic complications (6) HTN (hypertension) Code(s): I10 - ESSENTIAL (PRIMARY) HYPERTENSION Qualifiers: Hypertension type: essential hypertension Qualified Code(s): I10 - Essential (primary) hypertension (7) Lupus Code(s): L93.0 - DISCOID LUPUS ERYTHEMATOSUS (8) FIGUEROA (obstructive sleep apnea) Code(s): G47.33 - OBSTRUCTIVE SLEEP APNEA (ADULT) (PEDIATRIC) Assessment/Plan Acute COPD Exacerbation Chronic Hypoxic Respiratory Failure Obstructive Sleep Apnea LV Diastolic Dysfunction CAD h/o MVR Atrial Fibrillation HTN DM Hyperlipidemia Lupus UTI - Prednisone taper - inhaled bronchodilators - O2 to keep Spo2 >90% - No smoking - Coumadin - D/C planning Dr Matias
[2018-02-11] MEDS ORDERED: WARFARIN NA 3 MG TABLET ONE (17:42)
[2018-02-11] MEDS ORDERED: WARFARIN NA 5 MG TABLET (UD) ONE (17:43)
[2018-02-11] MEDS: WARFARIN NA 5 MG, WARFARIN NA 3 MG PO SCH (17:44)
== END 2018-02-11 18:18 | disposition home health service (06) | DRG 191 ==
LOC: JER 15:56 → JERBED 19:26 → J8W 01-30 09:39 → OBSVTOIN 01-31 10:27 → J8W 02-01 23:03 → J6S 02-05 18:18
PROVIDERS: ADMIT Internal Medicine; ATTEND Family Medicine
PROC: 5A09457 Assistance with Respiratory Ventilation, 24-96 Consecutive Hours, Continuous Positive Airway Pressure (ICD-10-PCS; principal; 2018-01-29)
DX: J44.1 Chronic obstructive pulmonary disease with (acute) exacerbation (principal); C92.40 Acute promyelocytic leukemia, not having achieved remission; J96.11 Chronic respiratory failure with hypoxia; I50.32 Chronic diastolic (congestive) heart failure; N39.0 Urinary tract infection, site not specified; J45.901 Unspecified asthma with (acute) exacerbation; I11.0 Hypertensive heart disease with heart failure; Z99.81 Dependence on supplemental oxygen; M32.9 Systemic lupus erythematosus, unspecified; G20 Parkinson's disease; R56.9 Unspecified convulsions; I48.0 Paroxysmal atrial fibrillation; E66.01 Morbid (severe) obesity due to excess calories; Z68.35 Body mass index [BMI] 35.0-35.9, adult; D50.9 Iron deficiency anemia, unspecified; E11.9 Type 2 diabetes mellitus without complications; Z79.4 Long term (current) use of insulin; G47.33 Obstructive sleep apnea (adult) (pediatric); Z99.89 Dependence on other enabling machines and devices; I25.10 Atherosclerotic heart disease of native coronary artery without angina pectoris; Z95.4 Presence of other heart-valve replacement; Z79.01 Long term (current) use of anticoagulants; I45.10 Unspecified right bundle-branch block; Z95.1 Presence of aortocoronary bypass graft; E78.5 Hyperlipidemia, unspecified; Z86.73 Personal history of transient ischemic attack (TIA), and cerebral infarction without residual deficits; Z87.891 Personal history of nicotine dependence; K57.30 Diverticulosis of large intestine without perforation or abscess without bleeding; Z91.041 Radiographic dye allergy status; M79.7 Fibromyalgia; F32.9 Major depressive disorder, single episode, unspecified; G43.909 Migraine, unspecified, not intractable, without status migrainosus; K59.00 Constipation, unspecified; M48.00 Spinal stenosis, site unspecified; R07.89 Other chest pain; R42 Dizziness and giddiness
CPT/HCPCS: 36415; 71045-TC-FY; 80048; 80053; 80162; 81003; 81015; 82803; 82962; 83735; 84100; 84484; 85025; 85027; 85610; 87081; 87086; 93005; 93010; 94640; 94660; 97116-GP; 97161-GP; 99284-25; G0378

== ENCOUNTER 2018-09-10 16:13 | Inpatient (IN) | payer OTHER ==
[2018-09-10] MEDS ORDERED: ONDANSETRON 4 MG/2 ML VIAL IVPUSH ONE (16:57)
[2018-09-10] MEDS ORDERED: LACTATED RINGERS SOLUTION 1000 ML INFUS.BAG IV ONE (16:57)
[2018-09-10] MEDS ORDERED: ACETAMINOPHEN 1000 MG/100 ML VIAL (NON FORMULARY) IVPB ONE (16:58)
[2018-09-10] MEDS ORDERED: ACETAMINOPHEN INJECTION 100 ML IVPB ONE (17:10)
[2018-09-10] MEDS ORDERED: ONDANSETRON 4 MG/2 ML VIAL ONE (17:10)
--- NOTE | 2018-09-10 17:28 | PDOC ---
History of Present Illness - General Chief Complaint: Vomiting/Diarrhea Stated Complaint: DIARRHEA Time Seen by Provider: 09/10/18 16:34 History Source: Patient, Care Provider (Home care provider at bedside.), Old Records Exam Limitations: No Limitations - History of Present Illness Initial Comments: HPI: 68 y/o female BIBEMS to [facility] ER complaining of diffuse abdominal pain, nausea, vomiting, and diarrhea since late last evening. Reports symptoms started spontaneously. Pain is described as constant, diffuse but possibly worse on right side of abdomen. Pt thinks she may have seen blood in her underwear but cannot be sure because she feels too weak to open her eyes. Nursing aid at bedside denies observing blood. Pt made khmer food for dinner. Multiple other members of the household consumed the food and, per the pt, are denying similar symptoms. 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 Denies new numbness or tingling Endocrine: Denies polyuria Heme: Denies bleeding or bruising Physical Examination: Constitutional: Puny appearing adult female in no acute distress but mild obvious discomfort. Obese body habitus. Found semi-fowlers on hospital bed. Eyes closed but alert and oriented x4. Answered all questions appropriately and completely. Speech was non-labored, non-pressured. Head: Normocephalic. No obvious external signs of trauma. Cardiovascular / Chest: Regular rate and regular rhythm. Mechanical ticking. No rubs, clicks, or gallops. Peripheral pulses: radial pulses full. Trace pretibial edema bilaterally. Respiratory: Nasal cannula in place. Breathing unlabored. Equal chest rise and fall. Clear to auscultation bilaterally. No stridor, no wheezing, no rhonchi. Gastrointestinal: abdomen is diffusely tender without rebound or guarding. Globally, abdomen is soft and nondistended, though exam is limited by large pannus. Ecchymosis appearing of various age on lower R and L quadrants. Large post surgical scar to midline below umbilicus. Neuro: Alert and oriented. Moving all four extremities spontaneously. Skin: Warm and dry. Lymphatics: No cervical, supraclavicular, epitrochlear or inguinal nodes palpated. Psych: Affect: appropriate. Mood: normal. MDM: *Reviewed vital signs, nursing notes, and prior visit documentation (if available). 68 y/o female with multiple comorbidities including multiple abdominal/pelvic operations and h/o of diverticulosis. Presenting with diffuse abdominal pain, N/ V/D since last night. Febrile orally. Vitals unremarkable for hypotension or tachycardia. Physical exam as described above. No acute abdominal signs. Suspect possible acute gastroenteritis. D/D also includes but not limited to acute diverticulitis, mesenteric ischemia (low suspicion; on Coumadin) Abdominal CT scan obtained w/o contrast because of documented allergy to IV contrast. Pt signed out to resident Dr. Meier after he was verbally appraised of the pts HPI, current ED course, and plan of management. Will f/u on pending CT scan and remaining lab tests. Wild Edge M.D., PGY1 Emergency Medicine Resident Past History - Past Medical History Allergies/Adverse Reactions: Allergies Allergy/AdvReac Type Severity Reaction Status Date / Time lactose Allergy Mild Verified 09/10/18 16:53 Beta-Blockers Allergy Verified 09/10/18 16:53 (Beta-Adrenergic Bloc Fish Containing Products Allergy Verified 09/10/18 16:53 fish derived Allergy Verified 09/10/18 16:53 Iodinated Contrast- Oral and Allergy Verified 09/10/18 16:53 IV Dye [IV Dye, Iodine Containing Contrast ] shellfish derived Allergy Verified 09/10/18 16:53 Zbcxzkx-Trr-Tff Reductase AdvReac Intermediate Verified 09/10/18 16:53 Inhibitor Home Medications: Ambulatory Orders Atorvastatin Ca [Lipitor] 10 mg PO HS 09/11/18 Cetirizine HCl [Zyrtec Rapidly Dissolving Tab -] 10 mg PO DAILY 09/11/18 Levothyroxine [Synthroid -] 25 mcg PO DAILY 09/11/18 Lipase/Protease/Amylase [[place] Dr 36,000 Units Capsule] 1 cap PO DAILY 09/11/18 Torsemide 100 mg PO DAILY 09/11/18 Tramadol HCl [Ultram] 50 mg PO DAILY 09/11/18 Anemia: Yes Asthma: Yes Cardiac Disorders: Yes (mitral valve replacement, stents x2,a-fib, CAD) CVA: Yes (MULTIPLE TIAs) COPD: Yes (Yes, O2 2L-3L) CHF: Yes DVT: No Diabetes: Yes GI Disorders: Yes (ulcers, GI bleed, hemorrhoids, diverticulosis) Disorders: Yes (bladder mesh) HTN: Yes Hypercholesterolemia: Yes Seizures: Yes Thyroid Disease: No - Surgical History Appendectomy: Yes Cardiac Surgery: Yes (stentsx2, mitral valve replacement, CABG) Cholecystectomy: Yes Orthopedic Surgery: Yes (left knee pain injection) - Immunization History Immunization Up to Date: Yes - Suicide/Smoking/Psychosocial Hx Smoking Status: No Smoking History: Unknown if ever smoked Have you smoked in the past 12 months: No Number of Cigarettes Smoked Daily: 0 If you are a former smoker, when did you quit?: many years Information on smoking cessation initiated: No Hx Alcohol Use: No Drug/Substance Use Hx: No Substance Use Type: None Hx Substance Use Treatment: No *Physical Exam - Vital Signs Last Vital Signs Temp Pulse Resp BP Pulse Ox 101.1 F H 82 16 155/52 L 99 09/10/18 16:43 09/10/18 16:43 09/10/18 16:43 09/10/18 16:43 09/10/18 16:43 ED Treatment Course - LABORATORY CBC & Chemistry Diagram: 09/12/18 06:10 09/13/18 06:00 - RADIOLOGY Radiology Studies Ordered: Category Date Time Status ABDOMEN & PELVIS CT W/O CONTR [CT] Stat CT Scan 09/10/18 17:26 Ordered *DC/Admit/Observation/Transfer Diagnosis at time of Disposition: Intractable abdominal pain, Intractable diarrhea - Discharge Dispostion Condition at time of disposition: Stable - Referrals - Patient Instructions - Post Discharge Activity
[2018-09-10 17:59] LABS: BASO % 0.3 % (0-2.0); EOS % 0.5 % (0-4.5); HEMATOCRIT 40.8 % (32.4-45.2); HEMOGLOBIN 13.1 GM/dL (10.7-15.3); LYMPH % 6.5 % (8-40); MCH 28.2 pg (25.7-33.7); MCHC 32.1 g/dl (32.0-36.0); MEAN PLT VOLUME 9.5 fl (7.5-11.1); MONO % 7.8 % (3.8-10.2); NEUT % 84.9 % (42.8-82.8); PLATELET COUNT 227 K/MM3 (134-434); RBC 4.64 M/mm3 (3.60-5.2); RDW 15.9 % (11.6-15.6); WHITE BLOOD COUNT 11.4 K/mm3 (4.0-10.0)
[2018-09-10 18:08] LABS: BILIRUBIN,TOTAL 0.4 mg/dL (0.2-1); BLOOD UREA NITROGEN 27.1 mg/dL (7-18)
--- NOTE | 2018-09-10 18:29 | PDOC ---
Documentation entered by Marie Pardo SCRIBE, acting as scribe for Carine Doe MD. Carine Doe MD: This documentation has been prepared by the Edvin gabriel Lincy, SCRIBE, under my direction and personally reviewed by me in its entirety. I confirm that the documentation accurately reflects all work, treatment, procedures, and medical decision making performed by me. Attending Attestation - Resident Resident Name: Wild Edge - ED Attending Attestation I have performed the following: I have examined & evaluated the patient, The case was reviewed & discussed with the resident, I agree w/resident's findings & plan, Exceptions are as noted - HPI HPI: 09/10/18 18:39 The patient is a 68-year-old female with a past medical history significant for COPD and asthma (on 3L home O2), Afib (on Coumadin), CHF, HTN, and HLD present to the emergency department with abdominal pain, nausea, vomiting, and diarrhea since last night. The patient presents with a constant, diffuse abdominal pain, associated with chills, nausea, episodes of nonbloody-bilious emesis, and over 6 episodes of loose stool. The patient reports she noted some blood in her underwear, home health aide, denies seeing blood in diarrhea. The patient denies any factors that would alleviate the pain. The patient reports last night she had some homemade food, denies family members having any similar symptoms. Denies fever, urinary complaints. - Physicial Exam PE: 09/10/18 18:28 awake alert lungs clear bilaterally heart rrrl no mrg abd soft obese, noted scars. lower abd ttp. no rebound no guarding. ext wwp no edema. no calf tenderness. - Medical Decision Making 09/10/18 18:25 68 yo F with h/o afib, antiphyospholipid, copd/ asthma , multiple surgeries, intestinal polyps, oopherectomy, hysterctomy , accidental bladder perforation, ( self cath) here with n/v/d subjective f/c. multiple episodes vomiting, with blood in understool. over 6 watery stools. chills, no fever. no urinary complaints. c/o abd pain. on exam pt wtih mild right lower quad suprapubic pain. differential colitis, pancreatitis, uti pyelo, obstruction. plan ct a/p labs ua iv hydration, 09/10/18 20:[address] a/p pending. labs noted for mild WBC elevation. signed out to Dr Peñaloza pending ct results.
[2018-09-10 18:58] LABS: EPI CELLS 10.4 /HPF (0-5/HPF); HYALINE CASTS 7 /lpf (0-8); PH,URINE 5.5 (5.0-8.0); URINE APPEARANCE CLEAR; URINE BACTERIA 46.4 /hpf (NEGATIVE); URINE BILIRUBIN NEGATIVE (NEGATIVE); URINE COLOR YELLOW; URINE GLUCOSE (UA) NEGATIVE (NEGATIVE); URINE KETONE NEGATIVE (NEGATIVE); URINE LEUK ESTERASE 1+ (NEGATIVE); URINE NITRITE NEGATIVE (NEGATIVE); URINE PROTEIN NEGATIVE (NEGATIVE); URINE RBC 24 /hpf (0-4); URINE UROBILINOGEN 0.2 mg/dL (0.2-1.0); URINE WBC 8 /hpf (0-5)
--- NOTE | 2018-09-10 20:58 | PDOC ---
*Physical Exam - Vital Signs Last Vital Signs Temp Pulse Resp BP Pulse Ox 101.1 F H 82 16 155/52 L 99 09/10/18 16:43 09/10/18 16:43 09/10/18 16:43 09/10/18 16:43 09/10/18 16:43 - Physical Exam Comments: 09/10/18 20:58 GENERAL: Awake, alert, and fully oriented, in no acute distress HEAD: No signs of trauma, normocephalic, atraumatic EYES: PERRLA, EOMI, sclera anicteric, conjunctiva clear ENT: Auricles normal inspection, hearing grossly normal, nares patent, oropharynx clear without exudates. Moist mucosa NECK: Normal ROM, supple, no lymphadenopathy, JVD, or masses LUNGS: No distress, speaks full sentences, clear to auscultation bilaterally HEART: Regular rate and rhythm, normal S1 and S2, no murmurs, rubs or gallops, peripheral pulses normal and equal bilaterally. ABDOMEN: Diffuse abdominal ttp. Soft, NDS, normoactive bowel sounds. No guarding, no rebound. No masses. Neg CVA ttp. EXTREMITIES : Normal inspection, Normal range of motion, no edema. No clubbing or cyanosis. NEUROLOGICAL: Cranial nerves II through XII grossly intact. Normal speech, no focal sensorimotor deficits SKIN: Warm, Dry, normal turgor, no rashes or lesions noted ED Treatment Course - LABORATORY CBC & Chemistry Diagram: 09/10/18 17:30 09/10/18 17:30 - ADDITIONAL ORDERS Additional order review: Laboratory Results 09/10/18 09/10/18 09/10/18 18:35 17:30 17:30 Sodium 139 Potassium 3.0 L Chloride 109 H Carbon Dioxide 22 Anion Gap 8 BUN 27.1 H Creatinine 1.0 Est GFR (CKD-EPI)AfAm 67.51 Est GFR (CKD-EPI)NonAf 58.25 Random Glucose 123 H Lactic Acid 1.2 Calcium 8.0 L Total Bilirubin 0.4 AST 8 L ALT 25 Alkaline Phosphatase 72 Total Protein 6.0 L Albumin 3.0 L Lipase 60 L Urine Color Yellow Urine Appearance Clear Urine pH 5.5 Ur Specific [place] 1.025 Urine Protein Negative Urine Glucose (UA) Negative Urine Ketones Negative Urine Blood 1+ H Urine Nitrite Negative Urine Bilirubin Negative Urine Urobilinogen 0.2 Ur Leukocyte Esterase 1+ H Urine WBC (Auto) 8 Urine RBC (Auto) 24 Urine Casts (Auto) 7 U Epithel Cells (Auto) 10.4 U Sm Round Cell (Auto) None Urine Bacteria (Auto) 46.4 09/10/18 17:30 RBC 4.64 MCV 88.0 MCHC 32.1 RDW 15.9 H MPV 9.5 Neutrophils % 84.9 H Lymphocytes % 6.5 L D Monocytes % 7.8 Eosinophils % 0.5 Basophils % 0.3 - Medications Given in the ED: ED Medications Discontinued Medications Generic Name Dose Route Start Last Admin Trade Name Freq PRN Reason Stop Dose Admin Acetaminophen 1,000 mg 09/10/18 16:58 09/10/18 17:34 Ofirmev Injection - IVPB 09/10/18 16:59 1,000 mg ONCE ONE Administration Lactated Ringer's 1,000 ml 09/10/18 16:57 09/10/18 17:34 Lactated Ringers Solution IV 09/10/18 16:58 1,000 ml ONCE ONE Administration Ondansetron HCl 4 mg 09/10/18 16:57 09/10/18 17:34 Zofran Injection IVPUSH 09/10/18 16:58 4 mg ONCE ONE Administration Medical Decision Making - Medical Decision Making 09/10/18 20:58 68 yo F with h/o multiple medical comorbidities, HTN, HLD, DM, CAD, who p/w diffuse, and right sided predominant abdominal pain, multiple loose watery stools, and NBNB emesis x 1 day. Denies recent travels. Temp 101.1, vitals otherwise wnl. Patient endorsed by Dr. Edge. Pending CTAP. Laboratory Tests 09/10/18 09/10/18 09/10/18 17:30 17:30 17:30 WBC 11.4 H Hgb 13.1 Hct 40.8 Plt Count 227 Sodium 139 Chloride 109 H BUN 27.1 H Creatinine 1.0 Lactic Acid 1.2 Urine Color Urine Blood Urine Nitrite Ur Leukocyte Esterase Urine WBC (Auto) Urine RBC (Auto) U Epithel Cells (Auto) 09/10/18 18:35 WBC Hgb Hct Plt Count Sodium Chloride BUN Creatinine Lactic Acid Urine Color Yellow Urine Blood 1+ H Urine Nitrite Negative Ur Leukocyte Esterase 1+ H Urine WBC (Auto) 8 Urine RBC (Auto) 24 U Epithel Cells (Auto) 10.4 09/10/18 21:05 CTAP with increased fluid in small bowel loopse, suggestive of acute diarrheal illness. 09/10/18 21:31 Pt. endorsed to medicine Daniel Ravi. Admitted medicine for intractable abdominal pain and diarrhea *DC/Admit/Observation/Transfer Diagnosis at time of Disposition: Intractable abdominal pain, Intractable diarrhea - Discharge Dispostion Condition at time of disposition: Stable Decision to Admit order: Yes - Referrals - Patient Instructions - Post Discharge Activity
[2018-09-10] MEDS: KCL 10 MEQ IVPB 10 MEQ/100 ML INFUS.BAG IVPB SCH (22:15)
[2018-09-10] MEDS ORDERED: KCL 10 MEQ IVPB 10 MEQ/100 ML INFUS.BAG IVPB ONE (22:59)
--- NOTE | 2018-09-10 23:02 | HP ---
Admitting History and Physical - Primary Care Physician PCP: Jose España - Admission Chief Complaint: Abdominal Pain, Nausea, Vomiting, Diarrhea History of Present Illness: This is a 68 y/o woman with a PMHx of HTN, HLD, CHF, CAD, Afib (on Coumadin), Mitral Valve Replacement, COPD (3L), Asthma, DM, Stenosis, FIGUEROA CPAP. Who presents to the ED with abdominal pain, nausea, vomiting and loose stools x 1 day. Patient reports having chronic diarrhea but it became worse after making [place] Be[employer] Rolls. Patient reports CHf symptoms on Sunday taking Torsemide 80mg on Sunday. Patient reports feeling weak, reports falling 1-2 times over the last week. Patient denies head trauma or LOC. Patient denies SOB, CP and palpitations. Patient denies fever, constipation, melena, hematochezia, hematuria, dysuria. 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, Migraine, Other (light-headedness and dizziness) Cardiovascular: Yes: AFIB, CAD, CHF, HTN, Hyperlipdemia, Other (S/P [facility] mitral valve replacement) Pulmonary: Yes: Asthma, COPD, Sleep Apnea (on CPAP at night) Gastrointestinal: Yes: Constipation, Diverticulosis, GI Bleed, Hemorrhoids Heme/Onc: Yes: Anemia Musculoskeletal: Yes: Chronic low back pain, Other (Spinal stenosis) Rheumatology: Yes: Lupus, Other (APLAS (BOTH LUPUS AND APLS ARE QUESTIONABLE)) Endocrine: Yes: Diabetes Mellitus - Past Surgical History Past Surgical History: Yes: CABG, Cholecystectomy, Hysterectomy, Oopherectomy - Smoking History Smoking history: Unknown if ever smoked Have you smoked in the past 12 months: No Aproximately how many cigarettes per day: 0 If you are a former smoker, when did you quit?: many years - Alcohol/Substance Use Hx Alcohol Use: No History of Substance Use: reports: None - Social History ADL: Independent History of Recent Travel: No Home Medications - Allergies Allergies/Adverse Reactions: Allergies Allergy/AdvReac Type Severity Reaction Status Date / Time lactose Allergy Mild Verified 09/10/18 16:53 Beta-Blockers Allergy Verified 09/10/18 16:53 (Beta-Adrenergic Bloc Fish Containing Products Allergy Verified 09/10/18 16:53 fish derived Allergy Verified 09/10/18 16:53 Iodinated Contrast- Oral and Allergy Verified 09/10/18 16:53 IV Dye [IV Dye, Iodine Containing Contrast ] shellfish derived Allergy Verified 09/10/18 16:53 [place]-Tcw-Mck Reductase AdvReac Intermediate Verified 09/10/18 16:53 Inhibitor - Home Medications Home Medications: Ambulatory Orders Atorvastatin Ca [Lipitor] 10 mg PO HS 09/11/18 Cetirizine HCl [Zyrtec Rapidly Dissolving Tab -] 10 mg PO DAILY 09/11/18 Levothyroxine [Synthroid -] 25 mcg PO DAILY 09/11/18 Lipase/Protease/Amylase [[place] Dr 36,000 Units Capsule] 1 cap PO DAILY 09/11/18 Torsemide 100 mg PO DAILY 09/11/18 Tramadol HCl [Ultram] 50 mg PO DAILY 09/11/18 Family Disease History - Family Disease History Family Disease History: Diabetes: Grandparent, Mother, Heart Disease: Father, Other: Sister (Lupus) Review of Systems - Review of Systems Constitutional: reports: Weakness Eyes: reports: No Symptoms HENT: reports: No Symptoms Neck: reports: No Symptoms Cardiovascular: reports: No Symptoms Respiratory: reports: No Symptoms Gastrointestinal: reports: Abdominal Pain, Diarrhea, Nausea, Vomiting. denies: Melena, Rectal Bleeding, Vomiting Blood Genitourinary: reports: No Symptoms Breasts: reports: No Symptoms Reported Musculoskeletal: reports: Back Pain Integumentary: reports: No Symptoms Neurological: reports: Weakness Endocrine: reports: No Symptoms Hematology/Lymphatic: reports: No Symptoms Psychiatric: reports: No Symptoms Pain Intensity: 4 Physical Examination Vital Signs: Vital Signs Temperature 101.1 F H 09/10/18 16:43 Pulse Rate 65 09/10/18 22:09 Respiratory Rate 22 H 09/10/18 22:09 Blood Pressure 125/45 L 09/10/18 22:09 O2 Sat by Pulse Oximetry (%) 96 09/10/18 22:09 Constitutional: Yes: No Distress, Calm, Obese Eyes: Yes: WNL, Conjunctiva Clear, EOM Intact, PERRL HENT: Yes: WNL, Atraumatic, Normocephalic Neck: Yes: WNL, Supple, Trachea Midline Cardiovascular: Yes: Pulse Irregular, S1, S2 Respiratory: Yes: Diminished, On Nasal O2 Gastrointestinal: Yes: Soft, Abdomen, Obese, Hyperactive Bowel Sounds, Tenderness (generalized), Tenderness, Epigastrium ...Rectal Exam: Yes: Sphincter Tone Normal Renal/: Yes: Incontinence Breast(s): Yes: WNL Musculoskeletal: Yes: Back Pain Extremities: Yes: WNL Edema: No Peripheral Pulses WNL: Yes Neurological: Yes: WNL, Alert, Oriented, Cran Nerves II-XII Intact ...Motor Strength: WNL Psychiatric: Yes: WNL, Alert, Oriented Labs: CBC, BMP 09/10/18 17:30 09/10/18 17:30 Laboratory Results - last 24 hr 09/10/18 09/10/18 09/10/18 17:30 17:30 17:30 WBC 11.4 H RBC 4.64 Hgb 13.1 Hct 40.8 MCV 88.0 MCH 28.2 MCHC 32.1 RDW 15.9 H Plt Count 227 MPV 9.5 Absolute Neuts (auto) 9.7 H Neutrophils % 84.9 H Lymphocytes % 6.5 L D Monocytes % 7.8 Eosinophils % 0.5 Basophils % 0.3 Nucleated RBC % 0 PT with INR INR Sodium 139 Potassium 3.0 L Chloride 109 H Carbon Dioxide 22 Anion Gap 8 BUN 27.1 H Creatinine 1.0 Est GFR (CKD-EPI)AfAm 67.51 Est GFR (CKD-EPI)NonAf 58.25 Random Glucose 123 H Lactic Acid 1.2 Calcium 8.0 L Total Bilirubin 0.4 AST 8 L ALT 25 Alkaline Phosphatase 72 Total Protein 6.0 L Albumin 3.0 L Lipase 60 L Urine Color Urine Appearance Urine pH Ur Specific [place] Urine Protein Urine Glucose (UA) Urine Ketones Urine Blood Urine Nitrite Urine Bilirubin Urine Urobilinogen Ur Leukocyte Esterase Urine WBC (Auto) Urine RBC (Auto) Urine Casts (Auto) U Epithel Cells (Auto) U Sm Round Cell (Auto) Urine Bacteria (Auto) 09/10/18 09/11/18 18:35 01:30 WBC RBC Hgb Hct MCV MCH MCHC RDW Plt Count MPV Absolute Neuts (auto) Neutrophils % Lymphocytes % Monocytes % Eosinophils % Basophils % Nucleated RBC % PT with INR 28.60 H INR 2.40 H Sodium Potassium Chloride Carbon Dioxide Anion Gap BUN Creatinine Est GFR (CKD-EPI)AfAm Est GFR (CKD-EPI)NonAf Random Glucose Lactic Acid Calcium Total Bilirubin AST ALT Alkaline Phosphatase Total Protein Albumin Lipase Urine Color Yellow Urine Appearance Clear Urine pH 5.5 Ur Specific [place] 1.025 Urine Protein Negative Urine Glucose (UA) Negative Urine Ketones Negative Urine Blood 1+ H Urine Nitrite Negative Urine Bilirubin Negative Urine Urobilinogen 0.2 Ur Leukocyte Esterase 1+ H Urine WBC (Auto) 8 Urine RBC (Auto) 24 Urine Casts (Auto) 7 U Epithel Cells (Auto) 10.4 U Sm Round Cell (Auto) None Urine Bacteria (Auto) 46.4 Intake & Output 09/08/18 09/09/18 09/10/18 09/11/18 23:59 23:59 23:59 23:59 Weight 87.09 kg Imaging - Results Chest X-ray: Pending Cat Scan: Report Reviewed, Image Reviewed EKG: Pending Problem List - Problems (1) Intractable abdominal pain Assessment/Plan: Likely due to Viral Gastroenteritis vs Foodborne Disease vs Obstruction vs Malignancy vs Mesenteric Ischemia CTAP report- sigmoid diverticulosis, no acute diverticulitis, 3mm calculus urinary bladder, s/p cholestectomy, diffuse hepatic steatosis,increased fluid is seen with multiple small bowel loops as well as colon suggestive current diarrheal illness WBC 11.4 with L shift Lactic Acid- nl Appreciate GI consult Stool culture C- Diff O+P NS Bolus given in ED Will gently hydrate concern for HF Chest Xray ordered Clear Diet Monitor CBC, BMP Monitor vitals Code(s): R10.9 - UNSPECIFIED ABDOMINAL PAIN (2) Intractable diarrhea Assessment/Plan: See above Code(s): R19.7 - DIARRHEA, UNSPECIFIED (3) Hypokalemia Assessment/Plan: Likely secondary to excessive diarrhea, vomiting K repleted in ED Monitor BMP Replete as indicated Code(s): E87.6 - HYPOKALEMIA (4) Weakness Assessment/Plan: Likely secondary to Hypovalemia Fall Precautions Consider PT eval Monitor BMP Code(s): R53.1 - WEAKNESS (5) Afib Assessment/Plan: [id number] Continue Coumadin, goal 2.5-3.5 Series INRs EKG- pending Code(s): I48.91 - UNSPECIFIED ATRIAL FIBRILLATION Qualifiers: Atrial fibrillation type: paroxysmal Qualified Code(s): I48.0 - Paroxysmal atrial fibrillation (6) CAD (coronary artery disease) Assessment/Plan: Continue home meds Code(s): I25.10 - ATHSCL HEART DISEASE OF [place] CORONARY ARTERY W/O ANG PCTRS (7) CHF (congestive heart failure) Assessment/Plan: Hold Diuretics secondary to Hypokalemia Chest Xray ordered Code(s): I50.9 - HEART FAILURE, UNSPECIFIED (8) Asthma Assessment/Plan: stable No acute flare Duonebs prn Code(s): J45.909 - UNSPECIFIED ASTHMA, UNCOMPLICATED (9) COPD (chronic obstructive pulmonary disease) Assessment/Plan: O2 dependent- 3L Duonebs prn Chest Xray-pending Code(s): J44.9 - CHRONIC OBSTRUCTIVE PULMONARY DISEASE, UNSPECIFIED Qualifiers: COPD type: COPD with acute exacerbation Qualified Code(s): J44.1 - Chronic obstructive pulmonary disease with (acute) exacerbation (10) Dyslipidemia Assessment/Plan: Continue statin Monitor LFTs Code(s): E78.5 - HYPERLIPIDEMIA, UNSPECIFIED (11) HTN (hypertension) Assessment/Plan: stable Monitor BP Code(s): I10 - ESSENTIAL (PRIMARY) HYPERTENSION Qualifiers: Hypertension type: essential hypertension Qualified Code(s): I10 - Essential (primary) hypertension (12) IDDM (insulin dependent diabetes mellitus) Assessment/Plan: stable BGMs ISS Code(s): E11.9 - TYPE 2 DIABETES MELLITUS WITHOUT COMPLICATIONS; Z79.4 - DEMAND PLANNER (CURRENT) USE OF INSULIN (13) S/P MVR (mitral valve replacement) Assessment/Plan: Continue Coumadin INR goals 2.5-3.5 Series INRs Code(s): Z95.2 - PRESENCE OF PROSTHETIC HEART VALVE (14) Sleep apnea Assessment/Plan: CPAP Code(s): G47.30 - SLEEP APNEA, UNSPECIFIED (15) Spinal stenosis Assessment/Plan: Continue Tramadol Code(s): M48.00 - SPINAL STENOSIS, SITE UNSPECIFIED (16) TIA (transient ischemic attack) Assessment/Plan: Continue home med Code(s): G45.9 - TRANSIENT CEREBRAL ISCHEMIC ATTACK, UNSPECIFIED (17) Obesities, morbid Assessment/Plan: Chronic Carb Controlled Diet advanced ad xiao Code(s): E66.01 - MORBID (SEVERE) OBESITY DUE TO EXCESS CALORIES Assessment/Plan This is a 68 y/o woman admitted for Hypokalemia, Dehydration, Diarrhea, Abdominal Pain for further evaluation of their emergent condition. Plan: See Problem List FEN Replete lytes prn Clear Low Na Diet DVT ppx OOB SCDs Continue Coumadin Dispo: Requires Inpatient Care Visit type - Emergency Visit Emergency Visit: Yes ED Registration Date: 09/10/18 Care time: The patient presented to the Emergency Department on the above date and was hospitalized for further evaluation of their emergent condition. - New Patient This patient is new to me today: Yes Date on this admission: 09/10/18 - Critical Care Critical Care patient: No
[2018-09-11] MEDS: KCL 10 MEQ IVPB 10 MEQ/100 ML INFUS.BAG IVPB SCH (01:54)
[2018-09-11 02:03] LABS: INR 2.4 (0.83-1.09); PROTHROMBIN TIME (PATIENT) 28.6 SEC (9.7-13.0)
[2018-09-11] MEDS ORDERED: KCL 10 MEQ IVPB 10 MEQ/100 ML INFUS.BAG IVPB ONE (02:05)
[2018-09-11] MEDS ORDERED: traMADol HCL 50 MG TABLET PO ONE (05:04)
[2018-09-11] MEDS ORDERED: traMADol HCL 50 MG TABLET ONE ×2 (05:08→16:23)
[2018-09-11] MEDS ORDERED: LEVOTHYROXINE NA 25 MCG TABLET (FP) ONE (07:15)
[2018-09-11] MEDS: LEVOTHYROXINE NA 25 MCG TABLET (FP) PO SCH (07:27)
--- NOTE | 2018-09-11 08:05 | EKG ---
Test Reason : Blood Pressure : / mmHG Vent. Rate : 071 BPM Atrial Rate : 071 BPM P-R Int : 152 ms QRS Dur : 090 ms QT Int : 376 ms P-R-T Axes : 062 059 012 degrees QTc Int : 408 ms SINUS RHYTHM WITH PREMATURE ATRIAL COMPLEXES RSR' OR QR PATTERN IN V1 SUGGESTS RIGHT VENTRICULAR CONDUCTION DELAY ABNORMAL ECG WHEN COMPARED WITH ECG OF 29-JAN-2018 16:43, PREMATURE ATRIAL COMPLEXES ARE NOW PRESENT Confirmed by VICENTE MEZA, SIERRA ([id number]) on 09/11/2018 8:05:18 AM Referred By: Confirmed By:SIERRA ZHANG MD
[2018-09-11 08:17] LABS: BASO % 0.4 % (0-2.0); EOS % 1.6 % (0-4.5); HEMATOCRIT 38.1 % (32.4-45.2); HEMOGLOBIN 12.5 GM/dL (10.7-15.3); LYMPH % 11.1 % (8-40); MCH 28.8 pg (25.7-33.7); MCHC 32.7 g/dl (32.0-36.0); MEAN CELL VOLUME 87.8 fl (80-96); MEAN PLT VOLUME 9.7 fl (7.5-11.1); MONO % 9.1 % (3.8-10.2); NEUT % 77.8 % (42.8-82.8); PLATELET COUNT 195 K/MM3 (134-434); RBC 4.34 M/mm3 (3.60-5.2); RDW 15.8 % (11.6-15.6); WHITE BLOOD COUNT 8.3 K/mm3 (4.0-10.0)
[2018-09-11 08:20] LABS: BLOOD UREA NITROGEN 18.7 mg/dL (7-18); CALCIUM 8.3 mg/dL (8.5-10.1)
[2018-09-11 08:42] LABS: POTASSIUM 2.9 mmol/L (3.5-5.1)
[2018-09-11] MEDS: LIPASE/PROTEASE/AMYLASE 36,000 UNIT CAPSULE PO SCH ×3 (08:45→18:08)
[2018-09-11] MEDS: traMADol HCL 50 MG TABLET PO PRN (16:27)
--- NOTE | 2018-09-11 18:45 | PN ---
Progress Note, Physician Chief Complaint: Diarrhea Abdominal Pain History of Present Illness: Previous notes and events reviewed awake and alert NAD continue with complaints of lower abdominal pain sts last episode of diarrhea this morning - Current Medication List Current Medications: Active Medications Atorvastatin Calcium (Lipitor -) 10 mg PO HS [facility] Levothyroxine Sodium (Synthroid -) 25 mcg PO DAILY@0700 [facility] Last Admin: 09/11/18 07:27 Dose: 25 mcg Pancrelipase (Creon Dr 36,000 Units Capsule) 1 cap PO TIDCM [facility] Last Admin: 09/11/18 18:08 Dose: 1 cap Tramadol HCl (Ultram -) 50 mg PO Q12H PRN PRN Reason: PAIN LEVEL 7 - 10 Last Admin: 09/11/18 16:27 Dose: 50 mg - Objective Vital Signs: Vital Signs Temperature 97.9 F 09/11/18 06:40 Pulse Rate 66 09/11/18 06:40 Respiratory Rate 16 09/11/18 06:40 Blood Pressure 134/60 09/11/18 06:40 O2 Sat by Pulse Oximetry (%) 97 09/11/18 07:30 Constitutional: Yes: No Distress, Calm Eyes: Yes: Conjunctiva Clear HENT: Yes: Atraumatic Cardiovascular: Yes: Regular Rate and Rhythm Respiratory: Yes: Regular, CTA Bilaterally Gastrointestinal: Yes: Normal Bowel Sounds, Soft, Abdomen, Obese, Tenderness ( lower abdomen) Extremities: Yes: WNL Edema: No Neurological: Yes: Alert, Oriented Psychiatric: Yes: Alert, Oriented Labs: CBC, BMP 09/11/18 07:00 09/11/18 07:00 INR, PTT INR 2.40 (0.83-1.09) H 09/11/18 01:30 Problem List - Problems (1) Intractable abdominal pain Assessment/Plan: -GI consult -clear liquid diet -pain control Code(s): R10.9 - UNSPECIFIED ABDOMINAL PAIN (2) Intractable diarrhea Assessment/Plan: -Cdiff, stool culture, stool O&P ordered -no leukocytosis -afebrile -clear liquids Code(s): R19.7 - DIARRHEA, UNSPECIFIED (3) CAD (coronary artery disease) Assessment/Plan: -Atorvastatin Code(s): I25.10 - ATHSCL HEART DISEASE OF [place] CORONARY ARTERY W/O ANG PCTRS (4) Diabetes Assessment/Plan: -BGM ACHS -HgA1c Code(s): E11.9 - TYPE 2 DIABETES MELLITUS WITHOUT COMPLICATIONS Qualifiers: Diabetes mellitus type: type 2 Diabetes mellitus complication status: with neurologic complications (5) HTN (hypertension) Assessment/Plan: -Verapamil Code(s): I10 - ESSENTIAL (PRIMARY) HYPERTENSION Qualifiers: Hypertension type: essential hypertension Qualified Code(s): I10 - Essential (primary) hypertension (6) Afib Assessment/Plan: -Coumadin -monitor INR daily -therapeutic goal 2.5-3.5 Code(s): I48.91 - UNSPECIFIED ATRIAL FIBRILLATION Qualifiers: Atrial fibrillation type: paroxysmal Qualified Code(s): I48.0 - Paroxysmal atrial fibrillation (7) Hypokalemia Assessment/Plan: -monitor electrolyte and replete as needed Code(s): E87.6 - HYPOKALEMIA Assessment/Plan see problem list dvt ppx
[2018-09-11] MEDS ORDERED: POTASSIUM CHLORIDE TABS 20 MEQ TABLET.ER (FP) PO ONE (20:13)
[2018-09-11] MEDS: POTASSIUM CHLORIDE TABS 10 MEQ TABLET.ER (FP) PO SCH (20:19)
[2018-09-11] MEDS: ATORVASTATIN CA 10 MG TABLET (FP) PO SCH (23:15)
[2018-09-11] MEDS ORDERED: ATORVASTATIN CA 10 MG TABLET (FP) ONE (23:17)
--- NOTE | 2018-09-11 23:30 | CONSULT ---
Consult Consult Specialty:: endocrine Referred by:: katty shields Reason for Consultation:: diabetes mellitus hyperglycemia - History of Present Illness Chief Complaint: nausea and vomiting History of Present Illness: 68 y/o woman with a PMHx of DM2,HTN, HLD, CHF, CAD, Afib (on Coumadin), Mitral Valve Replacement,asthmatic, COPD, spinal Stenosis, FIGUEROA CPAP. admitted with abdominal pain, nausea, vomiting and loose stools . Patient reports having chronic diarrhea but it became worse over past 48hrs. she has had increase dyspnea,and weakness after taking Torsemide 80mg on Sunday.she had fallen 1-2 times over the last week. Patient denies head trauma or LOC. she denies CP ,or fever. she has poor appetite and had not checked her sugars during this episode since she was not eating well. 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 mitral valve replacement) Pulmonary: Yes: Asthma, COPD, Sleep Apnea (on CPAP at night) Gastrointestinal: Yes: Constipation, Diverticulosis, GI Bleed, Hemorrhoids Musculoskeletal: Yes: Chronic low back pain, Other (Spinal stenosis) Rheumatology: Yes: Lupus, Other (APLAS (BOTH LUPUS AND APLS ARE QUESTIONABLE)) Endocrine: Yes: Diabetes Mellitus Additional Medical History: morbid obesity - Past Surgical History Past Surgical History: Yes: CABG, Cholecystectomy, Hysterectomy, Oopherectomy - Alcohol/Substance Use Hx Alcohol Use: No History of Substance Use: reports: None - Smoking History Smoking history: Unknown if ever smoked Have you smoked in the past 12 months: No Aproximately how many cigarettes per day: 0 If you are a former smoker, when did you quit?: many years - Social History Usual Living Arrangement: With Spouse ADL: Independent History of Recent Travel: No Home Medications - Allergies Allergies/Adverse Reactions: Allergies Allergy/AdvReac Type Severity Reaction Status Date / Time lactose Allergy Mild Verified 09/10/18 16:53 Beta-Blockers Allergy Verified 09/10/18 16:53 (Beta-Adrenergic Bloc Fish Containing Products Allergy Verified 09/10/18 16:53 fish derived Allergy Verified 09/10/18 16:53 Iodinated Contrast- Oral and Allergy Verified 09/10/18 16:53 IV Dye [IV Dye, Iodine Containing Contrast ] shellfish derived Allergy Verified 09/10/18 16:53 Pxuvmee-Cvm-Fgs Reductase AdvReac Intermediate Verified 09/10/18 16:53 Inhibitor - Home Medications Home Medications: Ambulatory Orders Atorvastatin Ca [Lipitor] 10 mg PO HS 09/11/18 Cetirizine HCl [Zyrtec Rapidly Dissolving Tab -] 10 mg PO DAILY 09/11/18 Levothyroxine [Synthroid -] 25 mcg PO DAILY 09/11/18 Lipase/Protease/Amylase [Cecil King 36,000 Units Capsule] 1 cap PO DAILY 09/11/18 Torsemide 100 mg PO DAILY 09/11/18 Tramadol HCl [Ultram] 50 mg PO DAILY 09/11/18 Family Disease History - Family Disease History Family Disease History: Diabetes: Grandparent, Mother, Heart Disease: Father, Other: Sister (Lupus) Review of Systems - Review of Systems Constitutional: reports: Lethargy, Loss of Appetite, Weakness Eyes: reports: Blurred Vision HENT: reports: Difficult Swallowing Neck: reports: Decreased ROM Cardiovascular: reports: Palpitations, Shortness of Breath Respiratory: reports: Cough, Orthopnea, SOB on Exertion Gastrointestinal: reports: Bloating, Diarrhea Breasts: reports: No Symptoms Reported Musculoskeletal: reports: Joint Swelling, Muscle Pain, Muscle Cramps, Muscle Weakness Neurological: reports: Dizziness, Numbness, Unsteady Gait Endocrine: reports: Unexplained Weight Gain Physical Exam Vital Signs: Vital Signs Temperature 98.2 F 09/11/18 20:01 Pulse Rate 66 09/11/18 20:01 Respiratory Rate 16 09/11/18 20:01 Blood Pressure 124/41 L 09/11/18 20:01 O2 Sat by Pulse Oximetry (%) 96 09/11/18 20:01 Constitutional: Yes: Anxious Eyes: Yes: EOM Intact HENT: Yes: Normocephalic Neck: Yes: Trachea Midline Cardiovascular: Yes: Tachycardia Respiratory: Yes: CTA Bilaterally Gastrointestinal: Yes: Distention, Hyperactive Bowel Sounds ...Rectal Exam: Yes: Deferred Renal/: Yes: WNL Musculoskeletal: Yes: Back Pain, Muscle Pain, Muscle Weakness Extremities: Yes: WNL Edema: No Integumentary: Yes: WNL Neurological: Yes: Alert, Oriented Labs: CBC, BMP 09/11/18 07:00 09/11/18 07:00 Problem List - Problems (1) Type 2 diabetes mellitus with hyperosmolarity without nonketotic hyperglycemic-hyperosmolar coma ([facility]) Code(s): E11.00 - TYPE 2 DIAB W HYPROSM W/O NONKET HYPRGLY-HYPROS COMA ([facility]) (2) Intractable abdominal pain Code(s): R10.9 - UNSPECIFIED ABDOMINAL PAIN (3) Intractable diarrhea Code(s): R19.7 - DIARRHEA, UNSPECIFIED (4) Abdominal pain, vomiting, and diarrhea Code(s): R10.9 - UNSPECIFIED ABDOMINAL PAIN; R11.10 - VOMITING, UNSPECIFIED; R19.7 - DIARRHEA, UNSPECIFIED (5) Anterior epistaxis Code(s): R04.0 - EPISTAXIS (6) Anticoagulated Code(s): Z79.01 - 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 OF ANTICOAGULANTS Assessment/Plan Current Active Problems dm2 hyperglycemia hypothyroidism morbid obesity dehydration chf hyperlipidemia Intractable abdominal pain (Acute) Intractable diarrhea (Acute) Abnormal Lab Results 09/11/18 09/11/18 09/11/18 01:30 07:00 07:00 RDW 15.8 H PT with INR 28.60 H INR 2.40 H Potassium 2.9 L* Chloride 111 H Anion Gap 5 L BUN 18.7 H Calcium 8.3 L Total Amylase 22 L Lipase 65 L TSH 0.34 L Laboratory Results - last 24 hr 09/11/18 09/11/18 09/11/18 01:30 07:00 07:00 WBC 8.3 RBC 4.34 Hgb 12.5 Hct 38.1 MCV 87.8 MCH 28.8 MCHC 32.7 RDW 15.8 H Plt Count 195 MPV 9.7 Absolute Neuts (auto) 6.5 Neutrophils % 77.8 Lymphocytes % 11.1 D Monocytes % 9.1 Eosinophils % 1.6 D Basophils % 0.4 Nucleated RBC % 0 PT with INR 28.60 H INR 2.40 H Sodium 142 Potassium 2.9 L* Chloride 111 H Carbon Dioxide 26 Anion Gap 5 L BUN 18.7 H Creatinine 1.0 Est GFR (CKD-EPI)AfAm 67.51 Est GFR (CKD-EPI)NonAf 58.25 Random Glucose 89 Calcium 8.3 L Magnesium 2.0 Total Amylase 22 L Lipase 65 L TSH 0.34 L plan: bgm qid novolog scale synthroid 25 mcg daily hba1c gi consult iv fluid rehydration cmp
[2018-09-12] MEDS ORDERED: WARFARIN NA 3 MG TABLET PO ONE (00:50)
--- NOTE | 2018-09-12 00:54 | HOSP ---
Subjective - Review of Symptoms Events since last encounter: Hospitalist Encounter Notified by the RN that the patient c/o of not receiving her Coumadin for her Afib, MVR. INR was 2.4 on 09/11 Plan: Ordered Coumadin 9mg now INR Series Physical Examination Vital Signs: Vital Signs Temperature 99.1 F 09/11/18 23:23 Pulse Rate 64 09/11/18 23:23 Respiratory Rate 20 09/11/18 23:23 Blood Pressure 135/66 09/11/18 23:23 O2 Sat by Pulse Oximetry (%) 97 09/11/18 23:23 Labs: CBC, BMP 09/11/18 07:00 09/11/18 07:00
[2018-09-12 06:27] LABS: HEMATOCRIT 37.1 % (32.4-45.2); HEMOGLOBIN 12.3 GM/dL (10.7-15.3); MCH 28.8 pg (25.7-33.7); MCHC 33.2 g/dl (32.0-36.0); MEAN CELL VOLUME 86.9 fl (80-96); PLATELET COUNT 210 K/MM3 (134-434); RBC 4.27 M/mm3 (3.60-5.2); RDW 15.8 % (11.6-15.6); WHITE BLOOD COUNT 8.9 K/mm3 (4.0-10.0)
[2018-09-12] MEDS: INSULIN SLIDING SCALE (NOVOLOG) 1 VIAL SQ SCH ×4 (06:28→23:29)
[2018-09-12] MEDS: LEVOTHYROXINE NA 25 MCG TABLET (FP) PO SCH (06:43)
[2018-09-12 06:45] LABS: INR 1.69 (0.83-1.09); PROTHROMBIN TIME (PATIENT) 20.1 SEC (9.7-13.0)
[2018-09-12 06:50] LABS: ALBUMIN 2.7 g/dl (3.4-5.0); BILIRUBIN,TOTAL 0.3 mg/dL (0.2-1); BLOOD UREA NITROGEN 16.7 mg/dL (7-18); CALCIUM 8.4 mg/dL (8.5-10.1); POTASSIUM 3.4 mmol/L (3.5-5.1); TOT PROT 5.8 g/dl (6.4-8.2)
--- NOTE | 2018-09-12 07:45 | CON.GI ---
Consult Consult Specialty:: GI Referred by:: Bryanna Sinclair NP Reason for Consultation:: Diarrhea and abdominal pain - History of Present Illness History of Present Illness: Patient states began experiencing worsening diarrhea on Sunday of this week after eating grape leaves and a joseph. She states she has always experienced diarrhea after eating and was placed on Creon by Dr Vernon. On Sunday diarrhea worsened and was accompanied with lower abdominal pain and vomiting. Diarrhea is described as dark in color with night awakenings, fever, and chills. Denies recent antibiotic use or travel history. She states also experiencing dysphagia with abnormal weight loss of 245lbs to 195lbs in 1 year. Denies rectal bleeding. CT scan shows increased fluid within multiple small bowel loops as well as colon suggestive of diarrheal illess, without obvious bowel wal thickening ir mesenteric edema, minima to mild small bowel dilation, sigmoid diverticulosis. 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, Migraine, Other (light-headedness and dizziness) Cardio/Vascular: Yes: AFIB, CAD, CHF, HTN, Hyperlipdemia, Other (S/P [facility] mitral valve replacement) Pulmonary: Yes: Asthma, COPD, Sleep Apnea (on CPAP at night) Gastrointestinal: Yes: Constipation, Diverticulosis, GI Bleed, Hemorrhoids Musculoskeletal: Yes: Chronic low back pain, Other (Spinal stenosis) Rheumatology: Yes: Lupus, Other (APLAS (BOTH LUPUS AND APLS ARE QUESTIONABLE)) Endocrine: Yes: Diabetes Mellitus Additional Medical History: morbid obesity - Past Surgical History Past Surgical History: Yes: CABG, Cholecystectomy, Hysterectomy, Oopherectomy, Valve Replacement - Alcohol/Substance Use Hx Alcohol Use: No History of Substance Use: reports: None - Smoking History Smoking history: Unknown if ever smoked Have you smoked in the past 12 months: No Aproximately how many cigarettes per day: 0 If you are a former smoker, when did you quit?: many years - Social History Usual Living Arrangement: With Spouse ADL: Independent History of Recent Travel: No Home Medications - Allergies Allergies/Adverse Reactions: Allergies Allergy/AdvReac Type Severity Reaction Status Date / Time lactose Allergy Mild Verified 09/10/18 16:53 Beta-Blockers Allergy Verified 09/10/18 16:53 (Beta-Adrenergic Bloc Fish Containing Products Allergy Verified 09/10/18 16:53 fish derived Allergy Verified 09/10/18 16:53 Iodinated Contrast- Oral and Allergy Verified 09/10/18 16:53 IV Dye [IV Dye, Iodine Containing Contrast ] shellfish derived Allergy Verified 09/10/18 16:53 Wjfvhob-Rzf-Ayt Reductase AdvReac Intermediate Verified 09/10/18 16:53 Inhibitor - Home Medications Home Medications: Ambulatory Orders Atorvastatin Ca [Lipitor] 10 mg PO HS 09/11/18 Cetirizine HCl [Zyrtec Rapidly Dissolving Tab -] 10 mg PO DAILY 09/11/18 Levothyroxine [Synthroid -] 25 mcg PO DAILY 09/11/18 Lipase/Protease/Amylase [Creon Dr 36,000 Units Capsule] 1 cap PO DAILY 09/11/18 Torsemide 100 mg PO DAILY 09/11/18 Tramadol HCl [Ultram] 50 mg PO DAILY 09/11/18 Family Disease History - Family Disease History Family Disease History: Diabetes: Grandparent (maternal grandfather stomach CA) , Mother, Heart Disease: Father, CA: Grandparent, Other: Sister (Lupus) Review of Systems - Review of Systems Constitutional: reports: Unintentional Wgt. Loss, Weakness Eyes: reports: No Symptoms HENT: reports: No Symptoms Neck: reports: No Symptoms Cardiovascular: reports: No Symptoms Respiratory: reports: No Symptoms Gastrointestinal: reports: Abdominal Pain, Diarrhea, Dysphagia, Nausea Genitourinary: reports: No Symptoms Breasts: reports: No Symptoms Reported Musculoskeletal: reports: No Symptoms Integumentary: reports: No Symptoms Neurological: reports: No Symptoms Endocrine: reports: No Symptoms Hematology/Lymphatic: reports: No Symptoms Psychiatric: reports: No Symptoms Physical Exam-GI Vital Signs: Vital Signs Temperature 98.5 F 09/12/18 03:27 Pulse Rate 69 09/12/18 03:27 Respiratory Rate 18 09/12/18 03:27 Blood Pressure 132/56 L 09/12/18 03:27 O2 Sat by Pulse Oximetry (%) 97 09/12/18 03:27 Labs: CBC, BMP 09/12/18 06:10 09/12/18 06:10 INR, PTT INR 1.69 (0.83-1.09) H 09/12/18 06:10 Imaging - Results Cat Scan: Report Reviewed Problem List - Problems (1) Intractable diarrhea Code(s): R19.7 - DIARRHEA, UNSPECIFIED
[2018-09-12] MEDS ORDERED: HEPARIN NA (PORCINE) 5,000 UNITS/ML 1ML VIAL IVPUSH PRN ×2 (08:32)
[2018-09-12] MEDS ORDERED: HEPARIN - 25,000 UNIT in SODIUM CHLORIDE 495 ML IV SCH (09:00)
[2018-09-12] MEDS ORDERED: PT OWN MED DRAWER 7, Y5N ONE (10:24)
[2018-09-12] MEDS: ENOXAPARIN NA (PORCINE) 100 MG/1 ML DISP.SYRIN SQ SCH ×2 (11:04→23:29)
[2018-09-12] MEDS: traMADol HCL 50 MG TABLET PO PRN ×2 (11:05→18:45)
[2018-09-12] MEDS: POTASSIUM CHLORIDE TABS 10 MEQ TABLET.ER (FP) PO SCH (11:05)
[2018-09-12] MEDS: CITALOPRAM HYDROBROMIDE 20 MG TABLET (FP) PO SCH (11:06)
[2018-09-12] MEDS: PANTOPRAZOLE SODIUM 40 MG VIAL IVPUSH SCH (11:07)
[2018-09-12] MEDS: LIPASE/PROTEASE/AMYLASE 36,000 UNIT CAPSULE PO SCH ×3 (11:07→18:02)
--- NOTE | 2018-09-12 11:37 | CON.CARD ---
Cardiology Consult (text) - Consultation Consultation Note: Cc: abd pain, n/v/d hpi: 68 year old lady with past medical history of COPD on home 02, FIGUEROA (on cpap at home), CAD (s/p single vessel CABG 2006 with RUSSELL to OM and ROSALINA x2 to LAD 12/2011; last cath 06/2014 showed patent RUSSELL, patent LAD stents, no sig residual dz except for 80-90% OM that is bypassed), mech mvr ([facility], 2006, on coumadin), anemia, TIA, dCHF, DM, HTN, pafib, antiphospholipid syndrome (on coumadin), fibromyalgia, migraines, chronic atypical cp, obesity, LBP here with abd pain, n/v/d. Sxs have been for past few days. No loc, orthopnea. Le edema minimal. Tolerating meds, no bleeding with ac. Chronic body aches ( including mask cp) and back pain persist. Sees me for cardio. pmh: per hpi psh: cabg, cholecystectomy, mvr, hysterectomy social: ex tob fam hx: no premature cad or scd ros: per hpi; no fever, vision changes, rash, gib, cough, wt loss, hematuria, headaches, sweating meds: Home Medications Medication Instructions Recorded Atorvastatin Ca [Lipitor] 10 mg PO HS 09/11/18 Cetirizine HCl [Zyrtec Rapidly 10 mg PO DAILY 09/11/18 Dissolving Tab -] Levothyroxine [Synthroid -] 25 mcg PO DAILY 09/11/18 Lipase/Protease/Amylase [Creon Dr 1 cap PO DAILY 09/11/18 36,000 Units Capsule] Torsemide 100 mg PO DAILY 09/11/18 Tramadol HCl [Ultram] 50 mg PO DAILY 09/11/18 Vital Signs Period Temp Pulse Resp BP Sys/Wise Pulse Ox Last 24 Hr 98.1 F-99.1 F 57-69 16-20 124-141/41-66 96-97 nad no jvd rrr s1s2 no mrg cta bl nl eff aaox3 no le e/c/c pos dp pt no carotid bruits no jaundice diaphoresis abd mild diff tender, pos bs, nd +reproducible chest wall pain (chronic) Laboratory Last Values WBC 8.9 K/mm3 (4.0-10.0) 09/12/18 06:10 RBC 4.27 M/mm3 (3.60-5.2) 09/12/18 06:10 Hgb 12.3 GM/dL (10.7-15.3) 09/12/18 06:10 Hct 37.1 % (32.4-45.2) 09/12/18 06:10 MCV 86.9 fl (80-96) 09/12/18 06:10 MCH 28.8 pg (25.7-33.7) 09/12/18 06:10 MCHC 33.2 g/dl (32.0-36.0) 09/12/18 06:10 RDW 15.8 % (11.6-15.6) H 09/12/18 06:10 Plt Count 210 K/MM3 (134-434) 09/12/18 06:10 MPV 9.0 fl (7.5-11.1) 09/12/18 06:10 Absolute Neuts (auto) 6.5 K/mm3 (1.5-8.0) 09/11/18 07:00 Neutrophils % 77.8 % (42.8-82.8) 09/11/18 07:00 Lymphocytes % 11.1 % (8-40) D 09/11/18 07:00 Monocytes % 9.1 % (3.8-10.2) 09/11/18 07:00 Eosinophils % 1.6 % (0-4.5) D 09/11/18 07:00 Basophils % 0.4 % (0-2.0) 09/11/18 07:00 Nucleated RBC % 0 % (0-0) 09/11/18 07:00 PT with INR 20.10 SEC (9.7-13.0) H 09/12/18 06:10 INR 1.69 (0.83-1.09) H 09/12/18 06:10 Sodium 143 mmol/L (136-145) 09/12/18 06:10 Potassium 3.4 mmol/L (3.5-5.1) L 09/12/18 06:10 Chloride 111 mmol/L (98-107) H 09/12/18 06:10 Carbon Dioxide 25 mmol/L (21-32) 09/12/18 06:10 Anion Gap 7 MMOL/L (8-16) L 09/12/18 06:10 BUN 16.7 mg/dL (7-18) 09/12/18 06:10 Creatinine 1.0 mg/dL (0.55-1.3) 09/12/18 06:10 Est GFR (CKD-EPI)AfAm 67.51 09/12/18 06:10 Est GFR (CKD-EPI)NonAf 58.25 09/12/18 06:10 POC Glucometer 83 UNITS (80-120) 09/12/18 06:25 Random Glucose 83 mg/dL (74-106) 09/12/18 06:10 Lactic Acid 1.2 mmol/L (0.4-2.0) 09/10/18 17:30 Calcium 8.4 mg/dL (8.5-10.1) L 09/12/18 06:10 Magnesium 2.0 mg/dL (1.8-2.4) 09/11/18 07:00 Total Bilirubin 0.3 mg/dL (0.2-1) 09/12/18 06:10 AST 13 U/L (15-37) L 09/12/18 06:10 ALT 25 U/L (13-61) 09/12/18 06:10 Alkaline Phosphatase 63 U/L (45-117) 09/12/18 06:10 Total Protein 5.8 g/dl (6.4-8.2) L 09/12/18 06:10 Albumin 2.7 g/dl (3.4-5.0) L 09/12/18 06:10 Total Amylase 22 U/L (25-115) L 09/11/18 07:00 Lipase 65 U/L (73-393) L 09/11/18 07:00 TSH 0.34 uIU/ml (0.358-3.74) L 09/11/18 07:00 Urine Color Yellow 09/10/18 18:35 Urine Appearance Clear 09/10/18 18:35 Urine pH 5.5 (5.0-8.0) 09/10/18 18:35 Ur Specific [place] 1.025 (1.010-1.035) 09/10/18 18:35 Urine Protein Negative (NEGATIVE) 09/10/18 18:35 Urine Glucose (UA) Negative (NEGATIVE) 09/10/18 18:35 Urine Ketones Negative (NEGATIVE) 09/10/18 18:35 Urine Blood 1+ (NEGATIVE) H 09/10/18 18:35 Urine Nitrite Negative (NEGATIVE) 09/10/18 18:35 Urine Bilirubin Negative (NEGATIVE) 09/10/18 18:35 Urine Urobilinogen 0.2 mg/dL (0.2-1.0) 09/10/18 18:35 Ur Leukocyte Esterase 1+ (NEGATIVE) H 09/10/18 18:35 Urine WBC (Auto) 8 /hpf (0-5) 09/10/18 18:35 Urine RBC (Auto) 24 /hpf (0-4) 09/10/18 18:35 Urine Casts (Auto) 7 /lpf (0-8) 09/10/18 18:35 U Epithel Cells (Auto) 10.4 /HPF (0-5/HPF) 09/10/18 18:35 U Sm Round Cell (Auto) None 09/10/18 18:35 Urine Bacteria (Auto) 46.4 /hpf (NEGATIVE) 09/10/18 18:35 ecg: sr, nl intervals, no ischemic changes, no sig change from prior cxr: no sig chf echo 10/2016: nl lv/rv, mild lae, nl mech mvr, small pericardial eff ( previously reported) echo ([facility]) 03/2017: nl lv/rv, nl mvr, mild as mibi 2016: no ecg changes, no ischemia/scar, nl lvef a/p: 68 year old lady with past medical history of COPD on home , FIGUEROA (on cpap at home), CAD (s/p single vessel CABG 2006 with RUSSELL to OM and ROSALINA x2 to LAD 12/2011; last cath 06/2014 showed patent RUSSELL, patent LAD stents, no sig residual dz except for 80-90% OM that is bypassed), mech mvr ([facility], 2006, on coumadin), anemia, TIA, dCHF, DM, HTN, pafib, antiphospholipid syndrome (on coumadin), fibromyalgia, migraines, chronic atypical cp, obesity, LBP here with abd pain, n/v/d. abd pain, n/v/d: -GI consulting Atyp CP: -chronic recurrent sx for the pt -MSK features, reproducible on exam--sec to severe coughing fits, +/- fibromyalgia -NST for this cp in 12/2013 and 04/2016 showed no ischemia and prior cath for this persistent cp 06/2014 showed patent graft and prior pci, no significant residual dz cad, s/p cabg, pci: -as above -no signs acs -normal lvef on recent echo, no anginal sxs -no bb due to copd, on verapamil instead -not on statin due to prior intolerance -cont ranexa for possible small vessel dz symptoms -given her epistaxis asa stopped as she is on ac. dizziness: -pt c/o some dizziness at times (not positional, occurs even when laying down still in bed). Persisted even with holding ranexa so not side effect related. Recent holter and echo unremarkable. Continued outpt f/u with neuro, ent. [facility] MVR: -on AC w/ coumadin, target INR 2.5 to 3.5, cont lovenox bridging while inr subtherapeutic -recent echo with normal [facility] mvr function HTN: Remains controlled on current meds. pafib: -rare episodes in past -remains in sr -continue verapamil -cont ac with coumadin, has hx of TIA chronic HFpEF: -vol status has been stable on torsemide
--- NOTE | 2018-09-12 11:42 | EKG ---
Test Reason : Blood Pressure : / mmHG Vent. Rate : 059 BPM Atrial Rate : 059 BPM P-R Int : 156 ms QRS Dur : 090 ms QT Int : 396 ms P-R-T Axes : 051 053 000 degrees QTc Int : 392 ms SINUS BRADYCARDIA WITH OCCASIONAL PREMATURE VENTRICULAR COMPLEXES RSR' OR QR PATTERN IN V1 SUGGESTS RIGHT VENTRICULAR CONDUCTION DELAY NONSPECIFIC T WAVE ABNORMALITY ABNORMAL ECG WHEN COMPARED WITH ECG OF 10-SEP-2018 18:41, PREMATURE VENTRICULAR COMPLEXES ARE NOW PRESENT PREMATURE ATRIAL COMPLEXES ARE NO LONGER PRESENT Confirmed by ALLISON VORA MD ([id number]) on 09/12/2018 11:42:30 AM Referred By: Confirmed By:ALLISON VORA MD
--- NOTE | 2018-09-12 12:21 | PN ---
Progress Note, Physician Chief Complaint: Diarrhea Abdominal Pain History of Present Illness: Previous notes and events reviewed awake and alert NAD continue with complaints of lower abdominal pain continue to have diarrhea subtherapeutic INR c/o mid chest pain and painful respirations - Current Medication List Current Medications: Active Medications Atorvastatin Calcium (Lipitor -) 10 mg PO HS [facility] Last Admin: 09/11/18 23:15 Dose: 10 mg Citalopram Hydrobromide (Celexa -) 20 mg PO DAILY [facility] Last Admin: 09/12/18 11:06 Dose: 20 mg Enoxaparin Sodium (Lovenox -) 90 mg SQ BID [facility] Last Admin: 09/12/18 11:04 Dose: 90 mg Metronidazole (Flagyl 500mg Premixed Ivpb -) 500 mg in 100 mls @ 100 mls/hr IVPB Q8H-IV [facility] Insulin Aspart (Novolog Vial Sliding Scale -) 1 vial SQ ACHS [facility]; Protocol Last Admin: 09/12/18 06:28 Dose: Not Given Levothyroxine Sodium (Synthroid -) 25 mcg PO DAILY@0700 [facility] Last Admin: 09/12/18 06:43 Dose: 25 mcg Ondansetron HCl (Zofran Injection) 4 mg IVPB Q6H PRN PRN Reason: NAUSEA Pancrelipase (Creon Dr 36,000 Units Capsule) 1 cap PO TIDCM [facility] Last Admin: 09/12/18 11:07 Dose: 1 cap Pantoprazole Sodium (Protonix Iv) 40 mg IVPUSH DAILY [facility] Last Admin: 09/12/18 11:07 Dose: 40 mg Potassium Chloride (K-Dur -) 40 meq PO DAILY [facility] Stop: 09/13/18 19:14 Last Admin: 09/12/18 11:05 Dose: 40 meq Torsemide (Demadex -) 100 mg PO DAILY [facility] Tramadol HCl (Ultram -) 50 mg PO Q12H PRN PRN Reason: PAIN LEVEL 7 - 10 Last Admin: 09/12/18 11:05 Dose: 50 mg Verapamil HCl (Calan Sr -) 240 mg PO DAILY [facility] Warfarin Sodium (Coumadin -) 9 mg PO DAILY@1800 [facility] - Objective Vital Signs: Vital Signs Temperature 99.1 F 09/12/18 11:17 Pulse Rate 57 L 09/12/18 11:17 Respiratory Rate 20 09/12/18 11:17 Blood Pressure 127/48 L 09/12/18 11:17 O2 Sat by Pulse Oximetry (%) 97 09/12/18 03:27 Constitutional: Yes: No Distress, Calm Eyes: Yes: Conjunctiva Clear HENT: Yes: Atraumatic Cardiovascular: Yes: Regular Rate and Rhythm Respiratory: Yes: Regular, CTA Bilaterally, On Nasal O2 Gastrointestinal: Yes: Normal Bowel Sounds, Soft, Abdomen, Obese, Tenderness Genitourinary: Yes: Incontinence Musculoskeletal: Yes: Muscle Weakness Extremities: Yes: WNL Edema: No Neurological: Yes: Alert, Oriented Psychiatric: Yes: Alert, Oriented Labs: CBC, BMP 09/12/18 06:10 09/12/18 06:10 INR, PTT INR 1.69 (0.83-1.09) H 09/12/18 06:10 Microbiology 09/11/18 11:37 Nares - Mrsa Screen - Left MRSA Screen - Preliminary Pending Organism 09/11/18 11:37 Nares - Mrsa Screen - Right MRSA Screen - Final NO MRSA ISOLATED 09/10/18 18:35 Urine - Urine - Catheterized Urine Culture - Preliminary Group D Strep Or Entero Coccus 09/11/18 01:30 Blood - Peripheral Venous Blood Culture - Preliminary NO GROWTH OBTAINED AFTER 24 HOURS, INCUBATION TO CONTINUE FOR 4 DAYS. 09/11/18 01:30 Blood - Peripheral Venous Blood Culture - Preliminary NO GROWTH OBTAINED AFTER 24 HOURS, INCUBATION TO CONTINUE FOR 4 DAYS. - ....Imaging Cat Scan: Report Reviewed Problem List - Problems (1) Intractable abdominal pain Assessment/Plan: -GI consult -clear liquid diet -pain control Code(s): R10.9 - UNSPECIFIED ABDOMINAL PAIN (2) Intractable diarrhea Assessment/Plan: -Cdiff, stool culture, stool O&P ordered -Flagyl -when resume regular diet, low fiber/lactose free -no leukocytosis -afebrile -clear liquids Code(s): R19.7 - DIARRHEA, UNSPECIFIED (3) CAD (coronary artery disease) Assessment/Plan: -Atorvastatin Code(s): I25.10 - ATHSCL HEART DISEASE OF [place] CORONARY ARTERY W/O ANG PCTRS (4) Diabetes Assessment/Plan: -BGM ACHS -HgA1c Code(s): E11.9 - TYPE 2 DIABETES MELLITUS WITHOUT COMPLICATIONS Qualifiers: Diabetes mellitus type: type 2 Diabetes mellitus complication status: with neurologic complications (5) HTN (hypertension) Assessment/Plan: -Verapamil Code(s): I10 - ESSENTIAL (PRIMARY) HYPERTENSION Qualifiers: Hypertension type: essential hypertension Qualified Code(s): I10 - Essential (primary) hypertension (6) Afib Assessment/Plan: -Coumadin -monitor INR daily -therapeutic goal 2.5-3.5 Code(s): I48.91 - UNSPECIFIED ATRIAL FIBRILLATION Qualifiers: Atrial fibrillation type: paroxysmal Qualified Code(s): I48.0 - Paroxysmal atrial fibrillation (7) Hypokalemia Assessment/Plan: -monitor electrolyte and replete as needed -K 3.4 Code(s): E87.6 - HYPOKALEMIA (8) Subtherapeutic international normalized ratio (INR) Assessment/Plan: -cardiology consult -INR 1.69 -continue Coumadin -Lovenox added to bridge until INR therapeutic Code(s): R79.1 - ABNORMAL COAGULATION PROFILE (9) Chest pain Assessment/Plan: -EKG ordered STAT -due to subtherapeutic INR Chest CTA ordered Code(s): R07.9 - CHEST PAIN, UNSPECIFIED Qualifiers: Chest pain type: unspecified Qualified Code(s): R07.9 - Chest pain, unspecified Assessment/Plan see problem list dvt ppx
[2018-09-12] MEDS: TORSEMIDE 100 MG TABLET PO SCH (14:48)
[2018-09-12] MEDS: VERAPAMIL HCL 240 MG E.R. TABLET PO SCH (14:49)
[2018-09-12] MEDS ORDERED: DEXTROSE 5%-WATER - 50 ML IVPB ONE (17:56)
[2018-09-12] MEDS ORDERED: cefTRIAXone SODIUM 1 GM VIAL ONE (17:56)
[2018-09-12] MEDS: WARFARIN NA 3 MG TABLET PO SCH (18:03)
[2018-09-12] MEDS: CEFTRIAXONE 1 GM in DEXTROSE 5%-WATER - 50 ML IVPB SCH (18:05)
[2018-09-12] MEDS: ATORVASTATIN CA 10 MG TABLET (FP) PO SCH (23:29)
[2018-09-13] MEDS ORDERED: diphenhydrAMINE HCL 25 MG CAPSULE (FP) PO ONE (03:25)
[2018-09-13] MEDS ORDERED: INSULIN (NOVOLOG) ASPART 100 UNITS/ML 10ML VIAL ONE (05:56)
[2018-09-13] MEDS: traMADol HCL 50 MG TABLET PO PRN ×2 (06:03→23:56)
[2018-09-13] MEDS: LEVOTHYROXINE NA 25 MCG TABLET (FP) PO SCH (06:03)
[2018-09-13] MEDS: INSULIN SLIDING SCALE (NOVOLOG) 1 VIAL SQ SCH ×4 (06:04→22:42)
[2018-09-13 07:53] LABS: INR 2.3 (0.83-1.09); PROTHROMBIN TIME (PATIENT) 27.4 SEC (9.7-13.0)
[2018-09-13 07:57] LABS: ALBUMIN 3.2 g/dl (3.4-5.0); BILIRUBIN,TOTAL 0.4 mg/dL (0.2-1); BLOOD UREA NITROGEN 16.4 mg/dL (7-18); CALCIUM 8.5 mg/dL (8.5-10.1); CREATININE 1.1 mg/dL (0.55-1.3); POTASSIUM 3.3 mmol/L (3.5-5.1); TOT PROT 6.8 g/dl (6.4-8.2)
--- NOTE | 2018-09-13 08:03 | PN.GI ---
GI Progress Note Subjective: Patient complain of bloating and non-bloody, diarrhea x 4 episodes this morning. States she is still having abdominal pain. Denies nausea, vomiting, rectal bleeding, melena. - Objective Vital Signs: Vital Signs Temperature 98.4 F 09/13/18 07:04 Pulse Rate 69 09/13/18 07:04 Respiratory Rate 20 09/13/18 07:04 Blood Pressure 138/70 09/13/18 07:04 O2 Sat by Pulse Oximetry (%) 99 09/12/18 09:00 Constitutional: No Distress, Calm Eyes: Yes: Conjunctiva Clear HENT: Yes: Atraumatic Cardiovascular: Yes: Regular Rate and Rhythm Respiratory: Yes: Regular, CTA Bilaterally Gastrointestinal Inspection: Yes: WNL, Other (ecchymosis 2/2 to Lovenox injection). No: Ascites, Distention, Hernia, Scars ...Auscultate: Yes: Normoactive Bowel Sounds. No: Hyperactive Bowel Sounds, Hypoactive Bowel Sounds, No Bowel Sounds, Other ...Palpate: Yes: Soft, Tenderness (diffuse). No: Firm/Rigid, Guarding, Hepatomegaly, Mass, Pulsatile Mass, Splenomegaly, Tenderness, Epigastium, Tenderness, Rebound, Other ...Percussion: Yes: Tympanitic. No: Dullness, Fluid Wave, Other Neurological: Yes: Alert, Oriented Psychiatric: Yes: Alert, Oriented Labs: CBC, BMP 09/12/18 06:10 09/13/18 06:00 INR, PTT INR 2.30 (0.83-1.09) H 09/13/18 06:00 Active Medications Generic Name Dose Route Start Last Admin Trade Name Hema PRN Reason Stop Dose Admin Atorvastatin Calcium 10 mg 09/11/18 22:00 09/12/18 23:29 Lipitor - PO 10 mg HS [facility] Administration Citalopram Hydrobromide 20 mg 09/12/18 10:00 09/12/18 11:06 Celexa - PO 20 mg DAILY [facility] Administration Enoxaparin Sodium 90 mg 09/12/18 10:00 09/12/18 23:29 Lovenox - SQ 90 mg BID [facility] Administration Ceftriaxone Sodium 1 gm/ 50 mls @ 100 mls/hr 09/12/18 17:00 09/12/18 18:05 Dextrose IVPB 100 mls/hr DAILY [facility] Administration Metronidazole 500 mg in 100 mls @ 100 mls/hr 09/12/18 18:00 09/13/18 01:30 Flagyl 500mg Premixed Ivpb - IVPB 100 mls/hr Q8H-IV [facility] Administration Insulin Aspart 1 vial 09/12/18 07:00 09/13/18 06:04 Novolog Vial Sliding Scale - SQ Not Given ACHS [facility] Protocol Levothyroxine Sodium 25 mcg 09/11/18 07:00 09/13/18 06:03 Synthroid - PO 25 mcg DAILY@0700 [facility] Administration Ondansetron HCl 4 mg 09/11/18 18:46 Zofran Injection IVPB Q6H PRN NAUSEA Pancrelipase 1 cap 09/11/18 08:00 09/12/18 18:[address] 36,000 Units Capsule PO 1 cap TIDCM [facility] Administration Pantoprazole Sodium 40 mg 09/12/18 10:00 09/12/18 11:07 Protonix Iv IVPUSH 40 mg DAILY [facility] Administration Potassium Chloride 40 meq 09/11/18 19:15 09/12/18 11:05 K-Dur - PO 09/13/18 19:14 40 meq DAILY [facility] Administration Torsemide 100 mg 09/12/18 10:00 09/12/18 14:48 Demadex - PO 100 mg DAILY [facility] Administration Tramadol HCl 50 mg 09/12/18 18:05 09/13/18 06:03 Ultram - PO 50 mg Q12H PRN Administration PAIN LEVEL 1-5 Verapamil HCl 240 mg 09/12/18 10:00 09/12/18 14:49 Calan Sr - PO 240 mg DAILY [facility] Administration Warfarin Sodium 9 mg 09/12/18 18:00 09/12/18 18:03 Coumadin - PO 9 mg DAILY@1800 [facility] Administration Problem List - Problems (1) Intractable diarrhea Assessment/Plan: -Clear liquid diet -Flagyl IVPB -no leukocytosis Code(s): R19.7 - DIARRHEA, UNSPECIFIED (2) Intractable abdominal pain Assessment/Plan: -Clear liquid diet, advance as tolerated -CT scan results reviewed -pain control Code(s): R10.9 - UNSPECIFIED ABDOMINAL PAIN
[2018-09-13] MEDS: LIPASE/PROTEASE/AMYLASE 36,000 UNIT CAPSULE PO SCH ×3 (08:30→17:40)
[2018-09-13] MEDS ORDERED: PT OWN MED DRAWER 7, Y5N ONE ×3 (08:44→18:41)
--- NOTE | 2018-09-13 09:44 | PN ---
Progress Note, Physician - Current Medication List Current Medications: Active Medications Atorvastatin Calcium (Lipitor -) 10 mg PO HS [facility] Last Admin: 09/12/18 23:29 Dose: 10 mg Citalopram Hydrobromide (Celexa -) 20 mg PO DAILY [facility] Last Admin: 09/12/18 11:06 Dose: 20 mg Enoxaparin Sodium (Lovenox -) 90 mg SQ BID [facility] Last Admin: 09/12/18 23:29 Dose: 90 mg Ceftriaxone Sodium 1 gm/ (Dextrose) 50 mls @ 100 mls/hr IVPB DAILY [facility] Last Admin: 09/12/18 18:05 Dose: 100 mls/hr Metronidazole (Flagyl 500mg Premixed Ivpb -) 500 mg in 100 mls @ 100 mls/hr IVPB Q8H-IV [facility] Last Admin: 09/13/18 01:30 Dose: 100 mls/hr Potassium Chloride (Potassium Chloride 10 Meq Premix Ivpb -) 10 meq in 100 mls @ 100 mls/hr IVPB Q60M [facility] Stop: 09/13/18 11:44 Insulin Aspart (Novolog Vial Sliding Scale -) 1 vial SQ ACHS [facility]; Protocol Last Admin: 09/13/18 06:04 Dose: Not Given Levothyroxine Sodium (Synthroid -) 25 mcg PO DAILY@0700 [facility] Last Admin: 09/13/18 06:03 Dose: 25 mcg Ondansetron HCl (Zofran Injection) 4 mg IVPB Q6H PRN PRN Reason: NAUSEA Pancrelipase (Creon Dr 36,000 Units Capsule) 1 cap PO TIDCM [facility] Last Admin: 09/12/18 18:02 Dose: 1 cap Pantoprazole Sodium (Protonix Iv) 40 mg IVPUSH DAILY [facility] Last Admin: 09/12/18 11:07 Dose: 40 mg Potassium Chloride (K-Dur -) 40 meq PO DAILY [facility] Stop: 09/13/18 19:14 Last Admin: 09/12/18 11:05 Dose: 40 meq Torsemide (Demadex -) 100 mg PO DAILY [facility] Last Admin: 09/12/18 14:48 Dose: 100 mg Tramadol HCl (Ultram -) 50 mg PO Q12H PRN PRN Reason: PAIN LEVEL 1-5 Last Admin: 09/13/18 06:03 Dose: 50 mg Verapamil HCl (Calan Sr -) 240 mg PO DAILY [facility] Last Admin: 09/12/18 14:49 Dose: 240 mg Warfarin Sodium (Coumadin -) 9 mg PO DAILY@1800 [facility] Last Admin: 09/12/18 18:03 Dose: 9 mg - Objective Vital Signs: Vital Signs Temperature 98.4 F 09/13/18 07:04 Pulse Rate 69 09/13/18 07:04 Respiratory Rate 20 09/13/18 07:04 Blood Pressure 138/70 09/13/18 07:04 O2 Sat by Pulse Oximetry (%) 99 09/12/18 09:00 Cardiovascular: Yes: Murmur, S1, S2 Respiratory: Yes: Regular, CTA Bilaterally Gastrointestinal: Yes: Normal Bowel Sounds, Soft Labs: CBC, BMP 09/12/18 06:10 09/13/18 06:00 INR, PTT INR 2.30 (0.83-1.09) H 09/13/18 06:00 Assessment/Plan - Problems (1) Intractable abdominal pain Assessment/Plan: -GI consult -clear liquid diet -pain control Code(s): R10.9 - UNSPECIFIED ABDOMINAL PAIN (2) Intractable diarrhea Assessment/Plan: -Cdiff, stool culture, stool O&P ordered -Flagyl -when resume regular diet, low fiber/lactose free -no leukocytosis -afebrile -clear liquids Code(s): R19.7 - DIARRHEA, UNSPECIFIED (3) CAD (coronary artery disease) Assessment/Plan: -Atorvastatin Code(s): I25.10 - ATHSCL HEART DISEASE OF [place] CORONARY ARTERY W/O ANG PCTRS (4) Diabetes Assessment/Plan: -BGM ACHS -HgA1c Code(s): E11.9 - TYPE 2 DIABETES MELLITUS WITHOUT COMPLICATIONS Qualifiers: Diabetes mellitus type: type 2 Diabetes mellitus complication status: with neurologic complications (5) HTN (hypertension) Assessment/Plan: -Verapamil Code(s): I10 - ESSENTIAL (PRIMARY) HYPERTENSION Qualifiers: Hypertension type: essential hypertension Qualified Code(s): I10 - Essential (primary) hypertension (6) Afib Assessment/Plan: -Coumadin -monitor INR daily -therapeutic goal 2.5-3.5 Code(s): I48.91 - UNSPECIFIED ATRIAL FIBRILLATION Qualifiers: Atrial fibrillation type: paroxysmal Qualified Code(s): I48.0 - Paroxysmal atrial fibrillation (7) Hypokalemia Assessment/Plan: -monitor electrolyte and replete as needed -K 3.4 Code(s): E87.6 - HYPOKALEMIA (8) Subtherapeutic international normalized ratio (INR) Assessment/Plan: -cardiology consult -INR 1.69 -continue Coumadin -Lovenox added to bridge until INR therapeutic Code(s): R79.1 - ABNORMAL COAGULATION PROFILE (9) Chest pain Assessment/Plan: -EKG ordered STAT -due to subtherapeutic INR Chest CTA ordered Code(s): R07.9 - CHEST PAIN, UNSPECIFIED Qualifiers: Chest pain type: unspecified Qualified Code(s): R07.9 - Chest pain, unspecified
[2018-09-13] MEDS ORDERED: cefTRIAXone SODIUM 1 GM VIAL ONE (10:11)
[2018-09-13] MEDS ORDERED: DEXTROSE 5%-WATER - 50 ML IVPB ONE (10:13)
[2018-09-13] MEDS: KCL 10 MEQ IVPB 10 MEQ/100 ML INFUS.BAG IVPB SCH ×2 (10:37→13:15)
[2018-09-13] MEDS: POTASSIUM CHLORIDE TABS 10 MEQ TABLET.ER (FP) PO SCH (10:46)
[2018-09-13] MEDS: VERAPAMIL HCL 240 MG E.R. TABLET PO SCH (10:47)
[2018-09-13] MEDS: DOCUSATE SODIUM 100 MG CAPSULE (FP) PO SCH (10:47)
[2018-09-13] MEDS: CITALOPRAM HYDROBROMIDE 20 MG TABLET (FP) PO SCH (10:47)
[2018-09-13] MEDS: PANTOPRAZOLE SODIUM 40 MG VIAL IVPUSH SCH (10:48)
[2018-09-13] MEDS: TORSEMIDE 100 MG TABLET PO SCH (10:48)
[2018-09-13] MEDS: ENOXAPARIN NA (PORCINE) 100 MG/1 ML DISP.SYRIN SQ SCH ×2 (10:48→22:38)
--- NOTE | 2018-09-13 14:43 | PN ---
Progress Note (short form) - Note Progress Note: s: no sob palps dizzy; chronic msk cp o: Vital Signs Period Temp Pulse Resp BP Sys/Wise Pulse Ox Last 24 Hr 98.3 F-99.4 F 69-75 20-20 124-138/58-70 nad no jvd rrr s1s2 no mrg cta bl nl eff aaox3 no le e/c/c no jaundice diaphoresis abd mild diff tender, pos bs, nd +reproducible chest wall pain (chronic) Current Medications Generic Name Dose Route Start Last Admin Trade Name Freq PRN Reason Stop Dose Admin Atorvastatin Calcium 10 mg 09/11/18 22:00 09/12/18 23:29 Lipitor - PO 10 mg HS [facility] Administration Citalopram Hydrobromide 20 mg 09/12/18 10:00 09/13/18 10:47 Celexa - PO 20 mg DAILY [facility] Administration Docusate Sodium 100 mg 09/13/18 10:00 09/13/18 10:47 Colace - PO 100 mg DAILY [facility] Administration Enoxaparin Sodium 90 mg 09/12/18 10:00 09/13/18 10:48 Lovenox - SQ 90 mg BID [facility] Administration Ceftriaxone Sodium 1 gm/ 50 mls @ 100 mls/hr 09/12/18 17:00 09/12/18 18:05 Dextrose IVPB 100 mls/hr DAILY [facility] Administration Metronidazole 500 mg in 100 mls @ 100 mls/hr 09/12/18 18:00 09/13/18 10:48 Flagyl 500mg Premixed Ivpb - IVPB 100 mls/hr Q8H-IV [facility] Administration Insulin Aspart 1 vial 09/12/18 07:00 09/13/18 11:40 Novolog Vial Sliding Scale - SQ Not Given ACHS [facility] Protocol Levothyroxine Sodium 25 mcg 09/11/18 07:00 09/13/18 06:03 Synthroid - PO 25 mcg DAILY@0700 [facility] Administration Ondansetron HCl 4 mg 09/11/18 18:46 Zofran Injection IVPB Q6H PRN NAUSEA Oxycodone HCl 5 mg 09/13/18 09:43 Roxicodone - PO Q4H PRN PAIN LEVEL 6-10 Pancrelipase 1 cap 09/11/18 08:00 09/13/18 13:06 [place] [address] 36,000 Units Capsule PO 1 cap TIDCM [facility] Administration Pantoprazole Sodium 40 mg 09/12/18 10:00 09/13/18 10:48 Protonix Iv IVPUSH 40 mg DAILY [facility] Administration Potassium Chloride 40 meq 09/11/18 19:15 09/13/18 10:46 K-Dur - PO 09/13/18 19:14 40 meq DAILY [facility] Administration Torsemide 100 mg 09/12/18 10:00 09/13/18 10:48 Demadex - PO 100 mg DAILY [facility] Administration Tramadol HCl 50 mg 09/12/18 18:05 09/13/18 06:03 Ultram - PO 50 mg Q12H PRN Administration PAIN LEVEL 1-5 Verapamil HCl 240 mg 09/12/18 10:00 09/13/18 10:47 Calan Sr - PO 240 mg DAILY [facility] Administration Warfarin Sodium 9 mg 09/12/18 18:00 09/12/18 18:03 Coumadin - PO 9 mg DAILY@1800 [facility] Administration CBC, BMP 09/12/18 06:10 09/13/18 06:00 ecg: sr, nl intervals, no ischemic changes, no sig change from prior cxr: no sig chf echo 10/2016: nl lv/rv, mild lae, nl mech mvr, small pericardial eff ( previously reported) echo ([facility]) 03/2017: nl lv/rv, nl mvr, mild as mibi 2016: no ecg changes, no ischemia/scar, nl lvef a/p: 68 year old lady with past medical history of COPD on home , FIGUEROA (on cpap at home), CAD (s/p single vessel CABG 2006 with RUSSELL to OM and ROSALINA x2 to LAD 12/2011; last cath 06/2014 showed patent RUSSELL, patent LAD stents, no sig residual dz except for 80-90% OM that is bypassed), [facility] mvr ([facility], 2006, on coumadin), anemia, TIA, dCHF, DM, HTN, pafib, antiphospholipid syndrome (on coumadin), fibromyalgia, migraines, chronic atypical cp, obesity, LBP here with abd pain, n/v/d. abd pain, n/v/d: -GI consulting, on abx Atyp CP: -chronic recurrent sx for the pt -MSK features, reproducible on exam--sec to severe coughing fits, +/- fibromyalgia -NST for this cp in 12/2013 and 04/2016 showed no ischemia and prior cath for this persistent cp 06/2014 showed patent graft and prior pci, no significant residual dz cad, s/p cabg, pci: -as above -no signs acs -normal lvef on recent echo, no anginal sxs -no bb due to copd, on verapamil instead -not on statin due to prior intolerance -cont ranexa for possible small vessel dz symptoms -given her epistaxis asa stopped as she is on ac. dizziness: -pt c/o some dizziness at times (not positional, occurs even when laying down still in bed). Persisted even with holding ranexa so not side effect related. Recent holter and echo unremarkable. Continued outpt f/u with neuro, ent. [facility] MVR: -on AC w/ coumadin, target INR 2.5 to 3.5, cont lovenox bridging while inr subtherapeutic -recent echo with normal [facility] mvr function HTN: Remains controlled on current meds. pafib: -rare episodes in past -remains in sr -continue verapamil -cont ac with coumadin, has hx of TIA chronic HFpEF: -vol status has been stable on torsemide
[2018-09-13] MEDS: CEFTRIAXONE 1 GM in DEXTROSE 5%-WATER - 50 ML IVPB SCH (14:56)
[2018-09-13] MEDS ORDERED: DIPHENOXYLATE 2.5/ATROPINE.025 1 COMBO TABLET PO PRN (17:12)
[2018-09-13] MEDS: WARFARIN NA 3 MG TABLET PO SCH (18:50)
[2018-09-13] MEDS: ATORVASTATIN CA 10 MG TABLET (FP) PO SCH (22:38)
[2018-09-14] MEDS: oxyCODONE HCL 5 MG TABLET PO PRN ×2 (06:47→19:51)
[2018-09-14] MEDS: INSULIN SLIDING SCALE (NOVOLOG) 1 VIAL SQ SCH ×4 (06:50→21:55)
[2018-09-14] MEDS: LEVOTHYROXINE NA 25 MCG TABLET (FP) PO SCH (06:51)
[2018-09-14] MEDS ORDERED: cefTRIAXone SODIUM 1 GM VIAL ONE (07:54)
[2018-09-14] MEDS ORDERED: DEXTROSE 5%-WATER - 50 ML IVPB ONE (07:54)
[2018-09-14 07:55] LABS: HEMATOCRIT 41.9 % (32.4-45.2); HEMOGLOBIN 13.8 GM/dL (10.7-15.3); MCH 28.3 pg (25.7-33.7); MCHC 32.8 g/dl (32.0-36.0); MEAN CELL VOLUME 86.2 fl (80-96); MEAN PLT VOLUME 9.5 fl (7.5-11.1); RBC 4.86 M/mm3 (3.60-5.2); RDW 15.5 % (11.6-15.6); WHITE BLOOD COUNT 8.4 K/mm3 (4.0-10.0)
[2018-09-14 08:31] LABS: INR 2.59 (0.83-1.09); PROTHROMBIN TIME (PATIENT) 30.8 SEC (9.7-13.0)
[2018-09-14 09:04] LABS: PLATELET COUNT 249 K/MM3 (134-434)
[2018-09-14] MEDS: PANTOPRAZOLE SODIUM 40 MG VIAL IVPUSH SCH (09:08)
[2018-09-14] MEDS: CEFTRIAXONE 1 GM in DEXTROSE 5%-WATER - 50 ML IVPB SCH (09:08)
[2018-09-14] MEDS: ENOXAPARIN NA (PORCINE) 100 MG/1 ML DISP.SYRIN SQ SCH (09:08)
[2018-09-14] MEDS: DOCUSATE SODIUM 100 MG CAPSULE (FP) PO SCH (09:11)
[2018-09-14] MEDS ORDERED: PT OWN MED DRAWER 7, Y5N ONE ×3 (11:18→17:29)
--- NOTE | 2018-09-14 11:18 | PN ---
Progress Note (short form) - Note Progress Note: PULMONARY CONSULTATION DICTATED 09/14/18 IMP COPD/ASTHMA O2 DEPENDENT STABLE CHEST PAIN LIKELY MUSCULO-SKELETAL FIGUEROA ON CPAP DIARRHEA/ABDOMINAL PAIN H/O SLE ASHD S/P CABG S/P MVR ANTI-CARDIOLIPIN ANTIBODY FIBROMYALGIA TIA AFIB HTN PLAN CONTINUE INHALED BRONCHODILATORS SUPPLEMENTAL O2 CPAP AT NIGHT NO NEED FOR CHEST CTA PT IS ON AC INR THERAPEUTIC ABX PAIN MEDS CONTINUE GI W/U PER DR FRIEDMAN ID EVALUATION CONTINUE AC MONITOR INR,LYTES,CBC DR IVERSON Problem List - Problems (1) Intractable diarrhea Code(s): R19.7 - DIARRHEA, UNSPECIFIED (2) Abdominal pain, vomiting, and diarrhea Code(s): R10.9 - UNSPECIFIED ABDOMINAL PAIN; R11.10 - VOMITING, UNSPECIFIED; R19.7 - DIARRHEA, UNSPECIFIED (3) Afib Code(s): I48.91 - UNSPECIFIED ATRIAL FIBRILLATION Qualifiers: Atrial fibrillation type: paroxysmal Qualified Code(s): I48.0 - Paroxysmal atrial fibrillation (4) Anticoagulated Code(s): Z79.01 - RN MED SURG (CURRENT) USE OF ANTICOAGULANTS (5) CAD (coronary artery disease) Code(s): I25.10 - ATHSCL HEART DISEASE OF [place] CORONARY ARTERY W/O ANG PCTRS (6) CHF (congestive heart failure) Code(s): I50.9 - HEART FAILURE, UNSPECIFIED (7) COPD (chronic obstructive pulmonary disease) Code(s): J44.9 - CHRONIC OBSTRUCTIVE PULMONARY DISEASE, UNSPECIFIED Qualifiers: COPD type: COPD with acute exacerbation Qualified Code(s): J44.1 - Chronic obstructive pulmonary disease with (acute) exacerbation (8) Chest pain Code(s): R07.9 - CHEST PAIN, UNSPECIFIED Qualifiers: Chest pain type: unspecified Qualified Code(s): R07.9 - Chest pain, unspecified (10) HTN (hypertension) Code(s): I10 - ESSENTIAL (PRIMARY) HYPERTENSION Qualifiers: Hypertension type: essential hypertension Qualified Code(s): I10 - Essential (primary) hypertension (11) FIGUEROA (obstructive sleep apnea) Code(s): G47.33 - OBSTRUCTIVE SLEEP APNEA (ADULT) (PEDIATRIC) (12) S/P MVR (mitral valve replacement) Code(s): Z95.2 - PRESENCE OF PROSTHETIC HEART VALVE (13) SOB (shortness of breath) Code(s): R06.02 - SHORTNESS OF BREATH (14) TIA (transient ischemic attack) Code(s): G45.9 - TRANSIENT CEREBRAL ISCHEMIC ATTACK, UNSPECIFIED (15) Weakness Code(s): R53.1 - WEAKNESS (16) Asthma with COPD Code(s): J44.9 - CHRONIC OBSTRUCTIVE PULMONARY DISEASE, UNSPECIFIED
[2018-09-14] MEDS: TORSEMIDE 100 MG TABLET PO SCH (11:23)
[2018-09-14] MEDS: VERAPAMIL HCL 240 MG E.R. TABLET PO SCH (11:23)
[2018-09-14] MEDS: LIPASE/PROTEASE/AMYLASE 36,000 UNIT CAPSULE PO SCH ×3 (11:23→17:44)
[2018-09-14] MEDS: CITALOPRAM HYDROBROMIDE 20 MG TABLET (FP) PO SCH (11:24)
--- NOTE | 2018-09-14 13:07 | PN ---
Progress Note, Physician - Current Medication List Current Medications: Active Medications Atorvastatin Calcium (Lipitor -) 10 mg PO HS [facility] Last Admin: 09/13/18 22:38 Dose: 10 mg Citalopram Hydrobromide (Celexa -) 20 mg PO DAILY [facility] Last Admin: 09/14/18 11:24 Dose: 20 mg Diphenoxylate HCl/Atropine (Lomotil -) 1 combo PO Q8H PRN PRN Reason: DIARRHEA Docusate Sodium (Colace -) 100 mg PO DAILY [facility] Last Admin: 09/14/18 09:11 Dose: Not Given Enoxaparin Sodium (Lovenox -) 90 mg SQ BID [facility] Last Admin: 09/14/18 09:08 Dose: 90 mg Ceftriaxone Sodium 1 gm/ (Dextrose) 50 mls @ 100 mls/hr IVPB DAILY [facility] Last Admin: 09/14/18 09:08 Dose: 100 mls/hr Metronidazole (Flagyl 500mg Premixed Ivpb -) 500 mg in 100 mls @ 100 mls/hr IVPB Q8H-IV [facility] Last Admin: 09/14/18 09:09 Dose: 100 mls/hr Insulin Aspart (Novolog Vial Sliding Scale -) 1 vial SQ ACHS [facility]; Protocol Last Admin: 09/14/18 11:34 Dose: Not Given Levothyroxine Sodium (Synthroid -) 25 mcg PO DAILY@0700 [facility] Last Admin: 09/14/18 06:51 Dose: 25 mcg Ondansetron HCl (Zofran Injection) 4 mg IVPB Q6H PRN PRN Reason: NAUSEA Oxycodone HCl (Roxicodone -) 5 mg PO Q4H PRN PRN Reason: PAIN LEVEL 6-10 Last Admin: 09/14/18 06:47 Dose: 5 mg Pancrelipase (Creon Dr 36,000 Units Capsule) 1 cap PO TIDCM [facility] Last Admin: 09/14/18 11:23 Dose: 1 cap Pantoprazole Sodium (Protonix Iv) 40 mg IVPUSH DAILY [facility] Last Admin: 09/14/18 09:08 Dose: 40 mg Torsemide (Demadex -) 100 mg PO DAILY [facility] Last Admin: 09/14/18 11:23 Dose: 100 mg Tramadol HCl (Ultram -) 50 mg PO Q12H PRN PRN Reason: PAIN LEVEL 1-5 Last Admin: 09/13/18 23:56 Dose: 50 mg Verapamil HCl (Calan Sr -) 240 mg PO DAILY [facility] Last Admin: 09/14/18 11:23 Dose: 240 mg Warfarin Sodium (Coumadin -) 9 mg PO DAILY@1800 [facility] Last Admin: 09/13/18 18:50 Dose: 9 mg - Objective Vital Signs: Vital Signs Temperature 97.7 F 09/14/18 08:45 Pulse Rate 60 09/14/18 08:45 Respiratory Rate 18 09/14/18 08:45 Blood Pressure 125/59 L 09/14/18 08:45 O2 Sat by Pulse Oximetry (%) 98 09/13/18 21:00 Cardiovascular: Yes: Regular Rate and Rhythm Respiratory: Yes: Regular, CTA Bilaterally Gastrointestinal: Yes: Normal Bowel Sounds, Soft. No: Tenderness Labs: CBC, BMP 09/14/18 07:00 09/13/18 06:00 INR, PTT INR 2.59 (0.83-1.09) H 09/14/18 07:00 Assessment/Plan - Problems (1) Intractable abdominal pain Assessment/Plan: -GI consult -clear liquid diet -pain control Code(s): R10.9 - UNSPECIFIED ABDOMINAL PAIN (2) Intractable diarrhea Assessment/Plan: -Cdiff, stool culture, stool O&P ordered -Flagyl -when resume regular diet, low fiber/lactose free -no leukocytosis -afebrile -clear liquids Code(s): R19.7 - DIARRHEA, UNSPECIFIED (3) CAD (coronary artery disease) Assessment/Plan: -Atorvastatin Code(s): I25.10 - ATHSCL HEART DISEASE OF [place] CORONARY ARTERY W/O ANG PCTRS (4) Diabetes Assessment/Plan: -BGM ACHS -HgA1c Code(s): E11.9 - TYPE 2 DIABETES MELLITUS WITHOUT COMPLICATIONS Qualifiers: Diabetes mellitus type: type 2 Diabetes mellitus complication status: with neurologic complications (5) HTN (hypertension) Assessment/Plan: -Verapamil Code(s): I10 - ESSENTIAL (PRIMARY) HYPERTENSION Qualifiers: Hypertension type: essential hypertension Qualified Code(s): I10 - Essential (primary) hypertension (6) Afib Assessment/Plan: -Coumadin -monitor INR daily -therapeutic goal 2.5-3.5 Code(s): I48.91 - UNSPECIFIED ATRIAL FIBRILLATION Qualifiers: Atrial fibrillation type: paroxysmal Qualified Code(s): I48.0 - Paroxysmal atrial fibrillation (7) Hypokalemia Assessment/Plan: -monitor electrolyte and replete as needed -K 3.4 Code(s): E87.6 - HYPOKALEMIA (8) Subtherapeutic international normalized ratio (INR) Assessment/Plan: -cardiology consult -INR 1.69 -continue Coumadin -Lovenox added to bridge until INR therapeutic Code(s): R79.1 - ABNORMAL COAGULATION PROFILE (9) Chest pain Assessment/Plan: -EKG ordered STAT -due to subtherapeutic INR Chest CTA ordered Code(s): R07.9 - CHEST PAIN, UNSPECIFIED Qualifiers: Chest pain type: unspecified Qualified Code(s): R07.9 - Chest pain, unspecified
--- NOTE | 2018-09-14 13:56 | CONS ---
DATE OF CONSULTATION: 09/14/2018 REFERRING PHYSICIAN: Tucker Toussaint M.D. HISTORY OF PRESENT ILLNESS: Patient is a 68-year-old female known to me from previous hospitalizations, as well as office follow up, extensive past medical history includes asthma/COPD on home O2, obstructive sleep apnea on CPAP, hypertension, hyperlipidemia, congestive heart failure, atrial fibrillation on Coumadin, mitral valve, status post MVR, diabetes, history of TIA, history of ASHD, status post CABG, SLE, fibromyalgia, questionable possible antiphospholipid antibody syndrome, cholecystectomy, hysterectomy, oophorectomy, remote history of smoking greater than 40 years ago, admitted to [facility] on September 10 with the complaint of abdominal pain, nausea and vomiting, loose stools for approximately 1 day. Patient apparently always has some diarrhea, but she became worse a couple of days prior to admission. She states that she ate [place] beef rolls started developing increased symptoms. Apparently a few nights prior to admission she started developing increasing shortness of breath and started taking torsemide on Sunday. She also complains of weakness and for only 1 to 2 times over the past week. She does have the complaint of chest pain, no nausea, no hemoptysis, no cough, no wheezing. PAST MEDICAL HISTORY: Again includes ASHD, status post Coronary artery bypass graft. She is status post MVR, hypertension, diastolic heart failure, hyperlipidemia, atrial fibrillation on Coumadin, asthma/COPD on O2, diabetes, as well as lupus and fibromyalgia. REVIEW OF SYSTEMS: No orthopnea, no PND. No shortness of breath at this time. Positive occasional chest pain. No fever, no chills. Positive nausea. Positive abdominal pain. Positive diarrhea. No lower extremity edema. MEDICATIONS: Current medications include: 1. Zofran. 2. Ceftriaxone. 3. Flagyl. 4. Lovenox. 5. Coumadin. 6. Celexa. 7. Lomotil. 8. Calan. 9. Colace. 10. Creon. 11. Lipitor. 12. Novolog. 13. Demadex. 14. Oyxcodone. 15. Ultram. 16. Protonix. 17. Synthroid. PHYSICAL EXAMINATION: General: On physical examination, patient is a well-developed, well-nourished female awake, alert, currently in no acute distress. Vitals: She is afebrile. Blood pressure 125/59, respiratory rate is 18, O2 saturation is 98% on 2 L. HEENT: Normocephalic, atraumatic. Neck: Supple. Heart: Irregularly irregular with S1, S2. Chest: Clear. Abdomen: Soft, bowel sounds present. Extremities: No cyanosis, edema. LABORATORY STUDIES: INR is 2.59. BUN is 16, creatinine 1.1. WBC is 8.4, hemoglobin 13.8, hematocrit 41.9 and platelet count of 249,000. Chest x-ray no infiltrates and no effusions, cardiomegaly. There is mild congestion. Abdominal CT no masses appreciated. There is increased fluid seen within multiple small bowel loops, as well as colon, suggestive of current diarrhea illness. No evidence of bowel wall thickness mesenteric edema. There is minimal to small bowel dilatation. IMPRESSION: 1. Asthma/chronic obstructive pulmonary disease, currently clinically stable. 2. Chest pain likely musculoskeletal, doubt pulmonary embolism. Patient is adequately anticoagulated. 3. Obstructive sleep apnea on continuous positive airway pressure. 4. Diarrhea, abdominal pain, workup in progress, etiology to be determined. 5. History of systemic lupus erythematosus. 6. Arteriosclerotic heart disease, status post coronary artery bypass graft. 7. Status post mitral valve repair. 8. Anti-cardiolipin antibodies. 9. Fibromyalgia. 10. Atrial fibrillation. 11. Hypertension. PLAN: Continue inhaled bronchodilators, supplemental O2, CPAP at night. No need for chest CTA required at this time. Patient is currently on anticoagulation and the INR is therapeutic. Continue antibiotics as per GI and pain medication. Continue GI workup as per Dr. Mendez. Consider ID evaluation. Continue anticoagulation and monitor INR and electrolytes and CBC. DANYEL IVERSON M.D. ARELY/[id number] MTDD
[2018-09-14] MEDS ORDERED: INSULIN (NOVOLOG) ASPART 100 UNITS/ML 10ML VIAL ONE (16:14)
[2018-09-14] MEDS: WARFARIN NA 3 MG TABLET PO SCH (17:44)
--- NOTE | 2018-09-14 21:01 | HOSP ---
Subjective - Review of Symptoms Events since last encounter: upon called by RN on floor for patient with complain of left 2nd toe pain post unwitnessed trauma as per patient has history of restless leg syndrome she believes she hit against something now complain of pain 10/10, unable to bear weight on the toe, pain medication given, will get XR for the left foot. Safety precaution in place Subjective: Noted left foot 2nd toe with tender to touch, patient unable to bear any weight , pain 10/10 General: No: Chills, Night Sweats, Fatigue, Malaise, Appetite, Other HEENT: No: Head Aches, Visual Changes, Eye Pain, Ear Pain, Dysphasia, Sinus Congestion, Post Nasal Drip, Sore Throat, Other Pulmonary: No: Dyspnea, Cough, Pleuritic Chest Pain, Other Cardiovascular: No: Chest Pain, Palpitations, Orthopnea, Paroxysmal Noc. Dyspnea , Edema, Light Headedness, Other Gastrointestinal: No: Nausea, NOSYM, Vomiting, Abdominal Pain, Diarrhea, Constipation, Melena, Hematochezia, Other Genitourinary: No: Dysuria, NOSYM, Frequency, Incontinence, Hematuria, Retention , Other Musculoskeletal: Yes: Other (left foot 2nd toe pain ) Neurological: No: Weakness, Numbness, Incoordination, Change in speech, Confusion, Seizures, Other Physical Examination Vital Signs: Vital Signs Temperature 98.6 F 09/14/18 19:58 Pulse Rate 87 09/14/18 19:58 Respiratory Rate 20 09/14/18 19:58 Blood Pressure 155/99 09/14/18 19:58 O2 Sat by Pulse Oximetry (%) 98 09/13/18 21:00 Constitutional: Yes: Well Nourished, No Distress, Calm Eyes: Yes: WNL, Conjunctiva Clear HENT: Yes: WNL, Atraumatic, Normocephalic Neck: Yes: WNL, Supple, Trachea Midline Cardiovascular: Yes: WNL Respiratory: Yes: WNL, Regular, CTA Bilaterally Gastrointestinal: Yes: WNL, Normal Bowel Sounds Extremities: Yes: Other (left 2nd toe tender to touch) Labs: CBC, BMP 09/14/18 07:00 09/13/18 06:00 Hospitalist Encounter Assessment: left 2nd toe pain - pain management - XR left foot - monitor for safety - patient educated to call for assistance
[2018-09-14] MEDS: PRAMIPEXOLE DIHYDROCHLORIDE 0.5 MG TABLET PO SCH (21:55)
[2018-09-14] MEDS: ATORVASTATIN CA 10 MG TABLET (FP) PO SCH (22:00)
[2018-09-14] MEDS: traMADol HCL 50 MG TABLET PO PRN (22:01)
[2018-09-15] MEDS: INSULIN SLIDING SCALE (NOVOLOG) 1 VIAL SQ SCH ×4 (06:32→21:18)
[2018-09-15] MEDS: LEVOTHYROXINE NA 25 MCG TABLET (FP) PO SCH (06:32)
[2018-09-15] MEDS: PRAMIPEXOLE DIHYDROCHLORIDE 0.5 MG TABLET PO SCH ×3 (06:32→21:19)
[2018-09-15 07:36] LABS: HEMATOCRIT 38.6 % (32.4-45.2); HEMOGLOBIN 12.8 GM/dL (10.7-15.3); MCH 28.7 pg (25.7-33.7); MCHC 33.2 g/dl (32.0-36.0); MEAN CELL VOLUME 86.3 fl (80-96); MEAN PLT VOLUME 9.4 fl (7.5-11.1); RBC 4.48 M/mm3 (3.60-5.2); RDW 15.4 % (11.6-15.6); WHITE BLOOD COUNT 9.1 K/mm3 (4.0-10.0)
[2018-09-15] MEDS ORDERED: PT OWN MED DRAWER 7, Y5N ONE ×4 (08:22→17:00)
[2018-09-15] MEDS: LIPASE/PROTEASE/AMYLASE 36,000 UNIT CAPSULE PO SCH ×3 (08:26→17:24)
[2018-09-15 08:40] LABS: INR 2.83 (0.83-1.09); PROTHROMBIN TIME (PATIENT) 33.7 SEC (9.7-13.0)
[2018-09-15 08:46] LABS: PLATELET COUNT 259 K/MM3 (134-434)
[2018-09-15] MEDS ORDERED: cefTRIAXone SODIUM 1 GM VIAL ONE (09:51)
[2018-09-15] MEDS ORDERED: DEXTROSE 5%-WATER - 50 ML IVPB ONE (09:51)
[2018-09-15] MEDS: CEFTRIAXONE 1 GM in DEXTROSE 5%-WATER - 50 ML IVPB SCH (09:56)
[2018-09-15] MEDS: PANTOPRAZOLE SODIUM 40 MG VIAL IVPUSH SCH (09:56)
[2018-09-15] MEDS: DOCUSATE SODIUM 100 MG CAPSULE (FP) PO SCH (09:57)
[2018-09-15] MEDS: CITALOPRAM HYDROBROMIDE 20 MG TABLET (FP) PO SCH (09:57)
[2018-09-15] MEDS: TORSEMIDE 100 MG TABLET PO SCH (09:57)
[2018-09-15] MEDS: VERAPAMIL HCL 240 MG E.R. TABLET PO SCH (09:57)
[2018-09-15] MEDS: ONDANSETRON 4 MG/2 ML VIAL IVPB PRN (10:01)
--- NOTE | 2018-09-15 11:35 | PN ---
Progress Note, Physician Chief Complaint: pulmonary comfortable,-c/o sob,-cough,+diarrhea,+ abd discomfort - Current Medication List Current Medications: Active Medications Atorvastatin Calcium (Lipitor -) 10 mg PO HS [facility] Last Admin: 09/14/18 22:00 Dose: 10 mg Citalopram Hydrobromide (Celexa -) 20 mg PO DAILY [facility] Last Admin: 09/15/18 09:57 Dose: 20 mg Diphenoxylate HCl/Atropine (Lomotil -) 1 combo PO Q8H PRN PRN Reason: DIARRHEA Docusate Sodium (Colace -) 100 mg PO DAILY [facility] Last Admin: 09/15/18 09:57 Dose: 100 mg Ceftriaxone Sodium 1 gm/ (Dextrose) 50 mls @ 100 mls/hr IVPB DAILY [facility] Last Admin: 09/15/18 09:56 Dose: 100 mls/hr Metronidazole (Flagyl 500mg Premixed Ivpb -) 500 mg in 100 mls @ 100 mls/hr IVPB Q8H-IV [facility] Last Admin: 09/15/18 10:53 Dose: 100 mls/hr Insulin Aspart (Novolog Vial Sliding Scale -) 1 vial SQ ACHS [facility]; Protocol Last Admin: 09/15/18 11:28 Dose: Not Given Levothyroxine Sodium (Synthroid -) 25 mcg PO DAILY@0700 [facility] Last Admin: 09/15/18 06:32 Dose: 25 mcg Ondansetron HCl (Zofran Injection) 4 mg IVPB Q6H PRN PRN Reason: NAUSEA Last Admin: 09/15/18 10:01 Dose: 4 mg Oxycodone HCl (Roxicodone -) 5 mg PO Q4H PRN PRN Reason: PAIN LEVEL 6-10 Last Admin: 09/14/18 19:51 Dose: 5 mg Pancrelipase (Creon Dr 36,000 Units Capsule) 1 cap PO TIDCM [facility] Last Admin: 09/15/18 08:26 Dose: 1 cap Pantoprazole Sodium (Protonix Iv) 40 mg IVPUSH DAILY [facility] Last Admin: 09/15/18 09:56 Dose: 40 mg Pramipexole Dihydrochloride (Mirapex -) 0.75 mg PO TID [facility] Last Admin: 09/15/18 06:32 Dose: 0.75 mg Torsemide (Demadex -) 100 mg PO DAILY [facility] Last Admin: 09/15/18 09:57 Dose: 100 mg Tramadol HCl (Ultram -) 50 mg PO Q12H PRN PRN Reason: PAIN LEVEL 1-5 Last Admin: 09/14/18 22:01 Dose: 50 mg Verapamil HCl (Calan Sr -) 240 mg PO DAILY [facility] Last Admin: 09/15/18 09:57 Dose: 240 mg Warfarin Sodium (Coumadin -) 9 mg PO DAILY@1800 [facility] Last Admin: 09/14/18 17:44 Dose: 9 mg - Objective Vital Signs: Vital Signs Temperature 98.4 F 09/15/18 09:06 Pulse Rate 77 09/15/18 09:06 Respiratory Rate 18 09/15/18 09:06 Blood Pressure 126/50 L 09/15/18 09:06 O2 Sat by Pulse Oximetry (%) 99 09/14/18 21:00 Constitutional: Yes: Well Nourished, Calm Eyes: Yes: WNL HENT: Yes: WNL Neck: Yes: WNL Cardiovascular: Yes: Pulse Irregular, S1, S2 Respiratory: Yes: CTA Bilaterally Gastrointestinal: Yes: Normal Bowel Sounds, Soft Edema: No Labs: CBC, BMP 09/15/18 05:53 09/13/18 06:00 INR, PTT INR 2.83 (0.83-1.09) H 09/15/18 07:55 Problem List - Problems (1) Intractable diarrhea Code(s): R19.7 - DIARRHEA, UNSPECIFIED (2) Abdominal pain, vomiting, and diarrhea Code(s): R10.9 - UNSPECIFIED ABDOMINAL PAIN; R11.10 - VOMITING, UNSPECIFIED; R19.7 - DIARRHEA, UNSPECIFIED (3) Afib Code(s): I48.91 - UNSPECIFIED ATRIAL FIBRILLATION Qualifiers: Atrial fibrillation type: paroxysmal Qualified Code(s): I48.0 - Paroxysmal atrial fibrillation (4) Anticoagulated Code(s): Z79.01 - FPC (CURRENT) USE OF ANTICOAGULANTS (5) CAD (coronary artery disease) Code(s): I25.10 - ATHSCL HEART DISEASE OF [place] CORONARY ARTERY W/O ANG PCTRS (6) CHF (congestive heart failure) Code(s): I50.9 - HEART FAILURE, UNSPECIFIED (7) COPD (chronic obstructive pulmonary disease) Code(s): J44.9 - CHRONIC OBSTRUCTIVE PULMONARY DISEASE, UNSPECIFIED Qualifiers: COPD type: COPD with acute exacerbation Qualified Code(s): J44.1 - Chronic obstructive pulmonary disease with (acute) exacerbation (8) Chest pain Code(s): R07.9 - CHEST PAIN, UNSPECIFIED Qualifiers: Chest pain type: unspecified Qualified Code(s): R07.9 - Chest pain, unspecified (10) HTN (hypertension) Code(s): I10 - ESSENTIAL (PRIMARY) HYPERTENSION Qualifiers: Hypertension type: essential hypertension Qualified Code(s): I10 - Essential (primary) hypertension (11) FIGUEROA (obstructive sleep apnea) Code(s): G47.33 - OBSTRUCTIVE SLEEP APNEA (ADULT) (PEDIATRIC) (12) S/P MVR (mitral valve replacement) Code(s): Z95.2 - PRESENCE OF PROSTHETIC HEART VALVE (13) SOB (shortness of breath) Code(s): R06.02 - SHORTNESS OF BREATH (14) TIA (transient ischemic attack) Code(s): G45.9 - TRANSIENT CEREBRAL ISCHEMIC ATTACK, UNSPECIFIED (15) Weakness Code(s): R53.1 - WEAKNESS (16) Asthma with COPD Code(s): J44.9 - CHRONIC OBSTRUCTIVE PULMONARY DISEASE, UNSPECIFIED Assessment/Plan IMP COPD/ASTHMA O2 DEPENDENT STABLE CHEST PAIN LIKELY MUSCULO-SKELETAL FIGUEROA ON CPAP DIARRHEA/ABDOMINAL PAIN H/O SLE ASHD S/P CABG S/P MVR ANTI-CARDIOLIPIN ANTIBODY FIBROMYALGIA TIA AFIB HTN PLAN CONTINUE INHALED BRONCHODILATORS SUPPLEMENTAL O2 CPAP AT NIGHT NO NEED FOR CHEST CTA PT INs ON AC INR THERAPEUTIC ABX PAIN MEDS CONTINUE GI W/U PER DR FRIEDMAN CONTINUE AC MONITOR INR,LYTES,CBC DR IVERSON Problem List - Problems (1) Intractable diarrhea Code(s): R19.7 - DIARRHEA, UNSPECIFIED (2) Abdominal pain, vomiting, and diarrhea Code(s): R10.9 - UNSPECIFIED ABDOMINAL PAIN; R11.10 - VOMITING, UNSPECIFIED; R19.7 - DIARRHEA, UNSPECIFIED (3) Afib Code(s): I48.91 - UNSPECIFIED ATRIAL FIBRILLATION Qualifiers: Atrial fibrillation type: paroxysmal Qualified Code(s): I48.0 - Paroxysmal atrial fibrillation (4) Anticoagulated Code(s): Z79.01 - FPC (CURRENT) USE OF ANTICOAGULANTS (5) CAD (coronary artery disease) Code(s): I25.10 - ATHSCL HEART DISEASE OF [place] CORONARY ARTERY W/O ANG PCTRS (6) CHF (congestive heart failure) Code(s): I50.9 - HEART FAILURE, UNSPECIFIED (7) COPD (chronic obstructive pulmonary disease) Code(s): J44.9 - CHRONIC OBSTRUCTIVE PULMONARY DISEASE, UNSPECIFIED Qualifiers: COPD type: COPD with acute exacerbation Qualified Code(s): J44.1 - Chronic obstructive pulmonary disease with (acute) exacerbation (8) Chest pain Code(s): R07.9 - CHEST PAIN, UNSPECIFIED Qualifiers: Chest pain type: unspecified Qualified Code(s): R07.9 - Chest pain, unspecified (10) HTN (hypertension) Code(s): I10 - ESSENTIAL (PRIMARY) HYPERTENSION Qualifiers: Hypertension type: essential hypertension Qualified Code(s): I10 - Essential (primary) hypertension (11) FIGUEROA (obstructive sleep apnea) Code(s): G47.33 - OBSTRUCTIVE SLEEP APNEA (ADULT) (PEDIATRIC) (12) S/P MVR (mitral valve replacement) Code(s): Z95.2 - PRESENCE OF PROSTHETIC HEART VALVE (13) SOB (shortness of breath) Code(s): R06.02 - SHORTNESS OF BREATH (14) TIA (transient ischemic attack) Code(s): G45.9 - TRANSIENT CEREBRAL ISCHEMIC ATTACK, UNSPECIFIED (15) Weakness Code(s): R53.1 - WEAKNESS (16) Asthma with COPD Code(s): J44.9 - CHRONIC OBSTRUCTIVE PULMONARY DISEASE, UNSPECIFIED
--- NOTE | 2018-09-15 11:39 | PN ---
Progress Note, Physician - Current Medication List Current Medications: Active Medications Atorvastatin Calcium (Lipitor -) 10 mg PO HS [facility] Last Admin: 09/14/18 22:00 Dose: 10 mg Citalopram Hydrobromide (Celexa -) 20 mg PO DAILY [facility] Last Admin: 09/15/18 09:57 Dose: 20 mg Diphenoxylate HCl/Atropine (Lomotil -) 1 combo PO Q8H PRN PRN Reason: DIARRHEA Docusate Sodium (Colace -) 100 mg PO DAILY [facility] Last Admin: 09/15/18 09:57 Dose: 100 mg Ceftriaxone Sodium 1 gm/ (Dextrose) 50 mls @ 100 mls/hr IVPB DAILY [facility] Last Admin: 09/15/18 09:56 Dose: 100 mls/hr Metronidazole (Flagyl 500mg Premixed Ivpb -) 500 mg in 100 mls @ 100 mls/hr IVPB Q8H-IV [facility] Last Admin: 09/15/18 10:53 Dose: 100 mls/hr Insulin Aspart (Novolog Vial Sliding Scale -) 1 vial SQ ACHS [facility]; Protocol Last Admin: 09/15/18 11:28 Dose: Not Given Levothyroxine Sodium (Synthroid -) 25 mcg PO DAILY@0700 [facility] Last Admin: 09/15/18 06:32 Dose: 25 mcg Ondansetron HCl (Zofran Injection) 4 mg IVPB Q6H PRN PRN Reason: NAUSEA Last Admin: 09/15/18 10:01 Dose: 4 mg Oxycodone HCl (Roxicodone -) 5 mg PO Q4H PRN PRN Reason: PAIN LEVEL 6-10 Last Admin: 09/14/18 19:51 Dose: 5 mg Pancrelipase (Creon Dr 36,000 Units Capsule) 1 cap PO TIDCM [facility] Last Admin: 09/15/18 08:26 Dose: 1 cap Pantoprazole Sodium (Protonix Iv) 40 mg IVPUSH DAILY [facility] Last Admin: 09/15/18 09:56 Dose: 40 mg Pramipexole Dihydrochloride (Mirapex -) 0.75 mg PO TID [facility] Last Admin: 09/15/18 06:32 Dose: 0.75 mg Torsemide (Demadex -) 100 mg PO DAILY [facility] Last Admin: 09/15/18 09:57 Dose: 100 mg Tramadol HCl (Ultram -) 50 mg PO Q12H PRN PRN Reason: PAIN LEVEL 1-5 Last Admin: 09/14/18 22:01 Dose: 50 mg Verapamil HCl (Calan Sr -) 240 mg PO DAILY [facility] Last Admin: 09/15/18 09:57 Dose: 240 mg Warfarin Sodium (Coumadin -) 9 mg PO DAILY@1800 [facility] Last Admin: 09/14/18 17:44 Dose: 9 mg - Objective Vital Signs: Vital Signs Temperature 98.4 F 09/15/18 09:06 Pulse Rate 77 09/15/18 09:06 Respiratory Rate 18 09/15/18 09:06 Blood Pressure 126/50 L 09/15/18 09:06 O2 Sat by Pulse Oximetry (%) 99 09/14/18 21:00 Cardiovascular: Yes: S1, S2 Respiratory: Yes: Regular, CTA Bilaterally Gastrointestinal: Yes: Normal Bowel Sounds, Soft Labs: CBC, BMP 09/15/18 05:53 09/13/18 06:00 INR, PTT INR 2.83 (0.83-1.09) H 09/15/18 07:55 Assessment/Plan - Problems (1) Intractable abdominal pain Assessment/Plan: -GI consult -clear liquid diet -pain control Code(s): R10.9 - UNSPECIFIED ABDOMINAL PAIN (2) Intractable diarrhea Assessment/Plan: -Cdiff, stool culture, stool O&P ordered -Flagyl -when resume regular diet, low fiber/lactose free -no leukocytosis -afebrile -clear liquids Code(s): R19.7 - DIARRHEA, UNSPECIFIED (3) CAD (coronary artery disease) Assessment/Plan: -Atorvastatin Code(s): I25.10 - ATHSCL HEART DISEASE OF [place] CORONARY ARTERY W/O ANG PCTRS (4) Diabetes Assessment/Plan: -BGM ACHS -HgA1c Code(s): E11.9 - TYPE 2 DIABETES MELLITUS WITHOUT COMPLICATIONS Qualifiers: Diabetes mellitus type: type 2 Diabetes mellitus complication status: with neurologic complications (5) HTN (hypertension) Assessment/Plan: -Verapamil Code(s): I10 - ESSENTIAL (PRIMARY) HYPERTENSION Qualifiers: Hypertension type: essential hypertension Qualified Code(s): I10 - Essential (primary) hypertension (6) Afib Assessment/Plan: -Coumadin -monitor INR daily -therapeutic goal 2.5-3.5 Code(s): I48.91 - UNSPECIFIED ATRIAL FIBRILLATION Qualifiers: Atrial fibrillation type: paroxysmal Qualified Code(s): I48.0 - Paroxysmal atrial fibrillation (7) Hypokalemia Assessment/Plan: -monitor electrolyte and replete as needed -K 3.4 Code(s): E87.6 - HYPOKALEMIA (8) Subtherapeutic international normalized ratio (INR) Assessment/Plan: -cardiology consult -INR 1.69 -continue Coumadin -Lovenox added to bridge until INR therapeutic Code(s): R79.1 - ABNORMAL COAGULATION PROFILE (9) Chest pain Assessment/Plan: -EKG ordered STAT -due to subtherapeutic INR Chest CTA ordered Code(s): R07.9 - CHEST PAIN, UNSPECIFIED Qualifiers: Chest pain type: unspecified Qualified Code(s): R07.9 - Chest pain, unspecified
[2018-09-15] MEDS: WARFARIN NA 3 MG TABLET PO SCH (17:25)
[2018-09-15 18:09] LABS: BLOOD UREA NITROGEN 17.2 mg/dL (7-18); CALCIUM 8.3 mg/dL (8.5-10.1); CREATININE 1.1 mg/dL (0.55-1.3)
[2018-09-15 18:16] LABS: POTASSIUM 2.9 mmol/L (3.5-5.1)
[2018-09-15] MEDS ORDERED: POTASSIUM CHLORIDE ORAL LIQUID 20 MEQ/15 ML PO ONE (18:29)
[2018-09-15] MEDS ORDERED: INSULIN (NOVOLOG) ASPART 100 UNITS/ML 10ML VIAL ONE (21:00)
[2018-09-15] MEDS: POTASSIUM CHLORIDE ORAL LIQUID 20 MEQ/15 ML PO SCH (21:18)
[2018-09-15] MEDS: ATORVASTATIN CA 10 MG TABLET (FP) PO SCH (21:18)
[2018-09-16] MEDS: INSULIN SLIDING SCALE (NOVOLOG) 1 VIAL SQ SCH ×4 (06:08→22:01)
[2018-09-16] MEDS: LEVOTHYROXINE NA 25 MCG TABLET (FP) PO SCH (06:09)
[2018-09-16] MEDS: PRAMIPEXOLE DIHYDROCHLORIDE 0.5 MG TABLET PO SCH ×3 (06:09→22:00)
[2018-09-16] MEDS ORDERED: INSULIN (NOVOLOG) ASPART 100 UNITS/ML 10ML VIAL ONE ×2 (06:13→12:11)
[2018-09-16 07:20] LABS: BASO % 0.5 % (0-2.0); EOS % 2.2 % (0-4.5); HEMATOCRIT 39.9 % (32.4-45.2); LYMPH % 15.7 % (8-40); MCH 28.4 pg (25.7-33.7); MCHC 32.6 g/dl (32.0-36.0); MEAN PLT VOLUME 9.1 fl (7.5-11.1); MONO % 9.3 % (3.8-10.2); NEUT % 72.3 % (42.8-82.8); PLATELET COUNT 272 K/MM3 (134-434); RBC 4.59 M/mm3 (3.60-5.2); RDW 15.4 % (11.6-15.6); WHITE BLOOD COUNT 10.4 K/mm3 (4.0-10.0)
[2018-09-16 07:35] LABS: BILIRUBIN,TOTAL 0.3 mg/dL (0.2-1); BLOOD UREA NITROGEN 14.5 mg/dL (7-18); CALCIUM 8.9 mg/dL (8.5-10.1); MAGNESIUM 2.2 mg/dL (1.8-2.4); POTASSIUM 3.3 mmol/L (3.5-5.1); TOT PROT 6.5 g/dl (6.4-8.2)
--- NOTE | 2018-09-16 07:43 | PN.GI ---
GI Progress Note Subjective: Patient states feeling about the same. Complains of having nausea and 2 episodes of diarrhea yesterday. Says she was unable to tolerate solid food. States feeling a pressurelike pain in epigastric area and an aching sensation to RLQ. Denies rectal bleeding, melena. - Objective Vital Signs: Vital Signs Temperature 98.7 F 09/16/18 05:35 Pulse Rate 68 09/16/18 05:35 Respiratory Rate 18 09/16/18 05:35 Blood Pressure 144/57 L 09/16/18 05:35 O2 Sat by Pulse Oximetry (%) 97 09/15/18 21:00 Constitutional: No Distress, Calm, Obese Eyes: Yes: Conjunctiva Clear HENT: Yes: Atraumatic Cardiovascular: Yes: Regular Rate and Rhythm Respiratory: Yes: Regular, CTA Bilaterally, On Nasal O2 Gastrointestinal Inspection: Yes: WNL. No: Ascites, Distention, Hernia, Scars, Other ...Auscultate: Yes: Normoactive Bowel Sounds. No: Hyperactive Bowel Sounds, Hypoactive Bowel Sounds, No Bowel Sounds, Other ...Palpate: Yes: Soft, Tenderness (diffuse), Tenderness, Epigastium. No: Firm/ Rigid, Guarding, Hepatomegaly, Mass, Pulsatile Mass, Splenomegaly, Tenderness, Rebound, Other ...Percussion: Yes: Tympanitic. No: Dullness, Fluid Wave, Other Neurological: Yes: Alert, Oriented Psychiatric: Yes: Alert, Oriented Labs: CBC, BMP 09/16/18 06:14 INR, PTT INR 2.83 (0.83-1.09) H 09/15/18 07:55 Active Medications Generic Name Dose Route Start Last Admin Trade Name Freq PRN Reason Stop Dose Admin Atorvastatin Calcium 10 mg 09/11/18 22:00 09/15/18 21:18 Lipitor - PO 10 mg HS [facility] Administration Citalopram Hydrobromide 20 mg 09/12/18 10:00 09/15/18 09:57 Celexa - PO 20 mg DAILY [facility] Administration Diphenoxylate HCl/Atropine 1 combo 09/13/18 17:12 Lomotil - PO Q8H PRN DIARRHEA Docusate Sodium 100 mg 09/13/18 10:00 09/15/18 09:57 Colace - PO 100 mg DAILY [facility] Administration Ceftriaxone Sodium 1 gm/ 50 mls @ 100 mls/hr 09/12/18 17:00 09/15/18 09:56 Dextrose IVPB 100 mls/hr DAILY [facility] Administration Metronidazole 500 mg in 100 mls @ 100 mls/hr 09/12/18 18:00 09/16/18 02:08 Flagyl 500mg Premixed Ivpb - IVPB 100 mls/hr Q8H-IV [facility] Administration Insulin Aspart 1 vial 09/12/18 07:00 09/16/18 06:08 Novolog Vial Sliding Scale - SQ Not Given ACHS [facility] Protocol Levothyroxine Sodium 25 mcg 09/11/18 07:00 09/16/18 06:09 Synthroid - PO 25 mcg DAILY@0700 [facility] Administration Ondansetron HCl 4 mg 09/11/18 18:46 09/15/18 10:01 Zofran Injection IVPB 4 mg Q6H PRN Administration NAUSEA Oxycodone HCl 5 mg 09/13/18 09:43 09/14/18 19:51 Roxicodone - PO 5 mg Q4H PRN Administration PAIN LEVEL 6-10 Pancrelipase 1 cap 09/11/18 08:00 09/15/18 17:24 Crejes King 36,000 Units Capsule PO 1 cap TIDCM [facility] Administration Pantoprazole Sodium 40 mg 09/12/18 10:00 09/15/18 09:56 Protonix Iv IVPUSH 40 mg DAILY [facility] Administration Potassium Chloride 40 meq 09/15/18 22:00 09/15/18 21:18 Potassium Chloride Oral Liquid PO 40 meq BID [facility] Administration Pramipexole Dihydrochloride 0.75 mg 09/14/18 22:00 09/16/18 06:09 Mirapex - PO 0.75 mg TID [facility] Administration Torsemide 100 mg 09/12/18 10:00 09/15/18 09:57 Demadex - PO 100 mg DAILY [facility] Administration Verapamil HCl 240 mg 09/12/18 10:00 09/15/18 09:57 Calan Sr - PO 240 mg DAILY [facility] Administration Warfarin Sodium 9 mg 09/12/18 18:00 09/15/18 17:25 Coumadin - PO 9 mg DAILY@1800 [facility] Administration Problem List - Problems (1) Intractable diarrhea Assessment/Plan: -Clear liquid diet -Flagyl IVPB -mild leukocytosis -FUA to R/O fecal impaction Code(s): R19.7 - DIARRHEA, UNSPECIFIED (2) Intractable abdominal pain Assessment/Plan: -Clear liquid diet, advance as tolerated -CT scan results reviewed -pain control Code(s): R10.9 - UNSPECIFIED ABDOMINAL PAIN
[2018-09-16] MEDS ORDERED: PT OWN MED DRAWER 7, Y5N ONE ×3 (08:02→21:27)
[2018-09-16] MEDS: LIPASE/PROTEASE/AMYLASE 36,000 UNIT CAPSULE PO SCH ×3 (08:10→17:13)
[2018-09-16] MEDS ORDERED: DEXTROSE 5%-WATER - 50 ML IVPB ONE (10:09)
[2018-09-16] MEDS ORDERED: cefTRIAXone SODIUM 1 GM VIAL ONE (10:09)
[2018-09-16] MEDS: PANTOPRAZOLE SODIUM 40 MG VIAL IVPUSH SCH (10:11)
[2018-09-16] MEDS: CEFTRIAXONE 1 GM in DEXTROSE 5%-WATER - 50 ML IVPB SCH (10:11)
[2018-09-16] MEDS: POTASSIUM CHLORIDE ORAL LIQUID 20 MEQ/15 ML PO SCH (10:11)
[2018-09-16] MEDS: VERAPAMIL HCL 240 MG E.R. TABLET PO SCH (10:12)
[2018-09-16] MEDS: TORSEMIDE 100 MG TABLET PO SCH (10:12)
[2018-09-16] MEDS: CITALOPRAM HYDROBROMIDE 20 MG TABLET (FP) PO SCH (10:12)
--- NOTE | 2018-09-16 10:37 | PN ---
Progress Note (short form) - Note Progress Note: PULMONARY Denies shortness of breath, cough or wheezing. No fevers or chills. Feels weak. Vital Signs Period Temp Pulse Resp BP Sys/Wise Pulse Ox Last 24 Hr 98.1 F-99.1 F 68-73 18-20 127-144/53-66 97 Gen: NAD in chair Heart: RRR Lung: decreased breath sounds at the bases Abd: soft, nontender Ext: no edema CBC, BMP 09/16/18 06:14 09/16/18 06:14 Active Medications Atorvastatin Calcium (Lipitor -) 10 mg PO HS [facility] Last Admin: 09/15/18 21:18 Dose: 10 mg Citalopram Hydrobromide (Celexa -) 20 mg PO DAILY [facility] Last Admin: 09/16/18 10:12 Dose: 20 mg Diphenoxylate HCl/Atropine (Lomotil -) 1 combo PO Q8H PRN PRN Reason: DIARRHEA Ceftriaxone Sodium 1 gm/ (Dextrose) 50 mls @ 100 mls/hr IVPB DAILY [facility] Last Admin: 09/16/18 10:11 Dose: 100 mls/hr Metronidazole (Flagyl 500mg Premixed Ivpb -) 500 mg in 100 mls @ 100 mls/hr IVPB Q8H-IV [facility] Last Admin: 09/16/18 02:08 Dose: 100 mls/hr Insulin Aspart (Novolog Vial Sliding Scale -) 1 vial SQ ACHS [facility]; Protocol Last Admin: 09/16/18 06:08 Dose: Not Given Levothyroxine Sodium (Synthroid -) 25 mcg PO DAILY@0700 [facility] Last Admin: 09/16/18 06:09 Dose: 25 mcg Ondansetron HCl (Zofran Injection) 4 mg IVPB Q6H PRN PRN Reason: NAUSEA Last Admin: 09/15/18 10:01 Dose: 4 mg Pancrelipase (Creon Dr 36,000 Units Capsule) 1 cap PO TIDCM [facility] Last Admin: 09/16/18 08:10 Dose: 1 cap Pantoprazole Sodium (Protonix Iv) 40 mg IVPUSH DAILY [facility] Last Admin: 09/16/18 10:11 Dose: 40 mg Potassium Chloride (K-Dur -) 40 meq PO DAILY [facility] Pramipexole Dihydrochloride (Mirapex -) 0.75 mg PO TID [facility] Last Admin: 09/16/18 06:09 Dose: 0.75 mg Torsemide (Demadex -) 100 mg PO DAILY [facility] Last Admin: 09/16/18 10:12 Dose: 100 mg Verapamil HCl (Calan Sr -) 240 mg PO DAILY [facility] Last Admin: 09/16/18 10:12 Dose: 240 mg Warfarin Sodium (Coumadin -) 9 mg PO DAILY@1800 [facility] Last Admin: 09/15/18 17:25 Dose: 9 mg A/P Atypical Chest Pain COPD Chronic Hypoxic Respiratory Failure FIGUEROA CAD s/p CABG h/o MVR Atrial Fibrillation HTN - inhaled bronchodilators - O2 to keep SpO2 >90% - rate control - continue anticoagulation - GI work up in progress
[2018-09-16] MEDS ORDERED: ALBUTEROL SO4 0.083% IH SOL 2.5 MG/3 ML VIAL.NEB. NEB PRN (10:38)
[2018-09-16] MEDS: POTASSIUM CHLORIDE TABS 20 MEQ TABLET.ER (FP) PO SCH (10:49)
--- NOTE | 2018-09-16 11:07 | PN ---
Progress Note, Physician Chief Complaint: Diarrhea Abdominal Pain History of Present Illness: Previous notes and events reviewed awake and alert NAD pt states experiencing nausea when ingests food, denies vomiting complain of abdominal pain, 2 episodes of diarrhea - Current Medication List Current Medications: Active Medications Albuterol Sulfate (Ventolin 0.083% Nebulizer Soln -) 1 amp NEB Q4H PRN PRN Reason: SHORT OF BREATH/WHEEZING Albuterol/Ipratropium (Duoneb -) 1 amp NEB RTID [facility] Atorvastatin Calcium (Lipitor -) 10 mg PO HS [facility] Last Admin: 09/15/18 21:18 Dose: 10 mg Citalopram Hydrobromide (Celexa -) 20 mg PO DAILY [facility] Last Admin: 09/16/18 10:12 Dose: 20 mg Diphenoxylate HCl/Atropine (Lomotil -) 1 combo PO Q8H PRN PRN Reason: DIARRHEA Ceftriaxone Sodium 1 gm/ (Dextrose) 50 mls @ 100 mls/hr IVPB DAILY [facility] Last Admin: 09/16/18 10:11 Dose: 100 mls/hr Metronidazole (Flagyl 500mg Premixed Ivpb -) 500 mg in 100 mls @ 100 mls/hr IVPB Q8H-IV [facility] Last Admin: 09/16/18 10:49 Dose: 100 mls/hr Insulin Aspart (Novolog Vial Sliding Scale -) 1 vial SQ ACHS [facility]; Protocol Last Admin: 09/16/18 06:08 Dose: Not Given Levothyroxine Sodium (Synthroid -) 25 mcg PO DAILY@0700 [facility] Last Admin: 09/16/18 06:09 Dose: 25 mcg Ondansetron HCl (Zofran Injection) 4 mg IVPB Q6H PRN PRN Reason: NAUSEA Last Admin: 09/15/18 10:01 Dose: 4 mg Pancrelipase (Creon Dr 36,000 Units Capsule) 1 cap PO TIDCM [facility] Last Admin: 09/16/18 08:10 Dose: 1 cap Pantoprazole Sodium (Protonix Iv) 40 mg IVPUSH DAILY [facility] Last Admin: 09/16/18 10:11 Dose: 40 mg Potassium Chloride (K-Dur -) 40 meq PO DAILY [facility] Last Admin: 09/16/18 10:49 Dose: 40 meq Pramipexole Dihydrochloride (Mirapex -) 0.75 mg PO TID [facility] Last Admin: 09/16/18 06:09 Dose: 0.75 mg Torsemide (Demadex -) 100 mg PO DAILY [facility] Last Admin: 09/16/18 10:12 Dose: 100 mg Verapamil HCl (Calan Sr -) 240 mg PO DAILY [facility] Last Admin: 09/16/18 10:12 Dose: 240 mg Warfarin Sodium (Coumadin -) 9 mg PO DAILY@1800 [facility] Last Admin: 09/15/18 17:25 Dose: 9 mg - Objective Vital Signs: Vital Signs Temperature 98.8 F 09/16/18 09:10 Pulse Rate 70 09/16/18 09:10 Respiratory Rate 18 09/16/18 09:10 Blood Pressure 137/66 09/16/18 09:10 O2 Sat by Pulse Oximetry (%) 97 09/15/18 21:00 Constitutional: Yes: No Distress, Calm Eyes: Yes: Conjunctiva Clear HENT: Yes: Atraumatic Cardiovascular: Yes: Regular Rate and Rhythm Respiratory: Yes: Regular, CTA Bilaterally, On Nasal O2 Gastrointestinal: Yes: Normal Bowel Sounds, Soft Musculoskeletal: Yes: Muscle Weakness Extremities: Yes: WNL Edema: No Neurological: Yes: Alert, Oriented Psychiatric: Yes: Alert, Oriented Labs: CBC, BMP 09/16/18 06:14 09/16/18 06:14 INR, PTT INR 2.83 (0.83-1.09) H 09/15/18 07:55 Microbiology 09/11/18 01:30 Blood - Peripheral Venous Blood Culture - Final NO GROWTH AFTER 5 DAYS INCUBATION 09/11/18 01:30 Blood - Peripheral Venous Blood Culture - Final NO GROWTH AFTER 5 DAYS INCUBATION 09/10/18 18:35 Urine - Urine - Catheterized Urine Culture - Final Enterococcus Faecalis 09/12/18 15:05 Stool Clostridioides difficile Antigen - Final 09/12/18 15:05 Stool Clostridioides difficile Toxin Assay - Final 09/11/18 11:37 Nares - Mrsa Screen - Left MRSA Screen - Final S Aureus 09/11/18 11:37 Nares - Mrsa Screen - Right MRSA Screen - Final NO MRSA ISOLATED Problem List - Problems (1) Intractable abdominal pain Assessment/Plan: -GI consult -clear liquid diet -pain control Code(s): R10.9 - UNSPECIFIED ABDOMINAL PAIN (2) Intractable diarrhea Assessment/Plan: -stool culture, stool O&P ordered -Flagyl and Ceftriaxone -when resume regular diet, low fiber/lactose free -wbc 10.4 -Cdiff neg -afebrile -clear liquids -FUA ordered to r/o fecal impaction Code(s): R19.7 - DIARRHEA, UNSPECIFIED (3) CAD (coronary artery disease) Assessment/Plan: -Atorvastatin Code(s): I25.10 - ATHSCL HEART DISEASE OF [place] CORONARY ARTERY W/O ANG PCTRS (4) Diabetes Assessment/Plan: -BGM ACHS -HgA1c -ISS Code(s): E11.9 - TYPE 2 DIABETES MELLITUS WITHOUT COMPLICATIONS Qualifiers: Diabetes mellitus type: type 2 Diabetes mellitus complication status: with neurologic complications (5) HTN (hypertension) Assessment/Plan: -Verapamil Code(s): I10 - ESSENTIAL (PRIMARY) HYPERTENSION Qualifiers: Hypertension type: essential hypertension Qualified Code(s): I10 - Essential (primary) hypertension (6) Afib Assessment/Plan: -Coumadin -monitor INR daily -therapeutic goal 2.5-3.5 Code(s): I48.91 - UNSPECIFIED ATRIAL FIBRILLATION Qualifiers: Atrial fibrillation type: paroxysmal Qualified Code(s): I48.0 - Paroxysmal atrial fibrillation (7) Hypokalemia Assessment/Plan: -monitor electrolyte and replete as needed -K 3.3 -K-dur 40mg BID Code(s): E87.6 - HYPOKALEMIA (8) Subtherapeutic international normalized ratio (INR) Assessment/Plan: -cardiology consult -continue Coumadin -Lovenox added to bridge until INR therapeutic Code(s): R79.1 - ABNORMAL COAGULATION PROFILE (9) Chest pain Assessment/Plan: -resolved Code(s): R07.9 - CHEST PAIN, UNSPECIFIED Qualifiers: Chest pain type: unspecified Qualified Code(s): R07.9 - Chest pain, unspecified Assessment/Plan see problem list dvt ppx
--- NOTE | 2018-09-16 11:11 | PN ---
Progress Note, Physician Chief Complaint: Seen and examined Denies CP or SOB Coumadin resumed Diet being advanced. - Current Medication List Current Medications: Active Medications Albuterol Sulfate (Ventolin 0.083% Nebulizer Soln -) 1 amp NEB Q4H PRN PRN Reason: SHORT OF BREATH/WHEEZING Albuterol/Ipratropium (Duoneb -) 1 amp NEB RTID [facility] Atorvastatin Calcium (Lipitor -) 10 mg PO HS [facility] Last Admin: 09/15/18 21:18 Dose: 10 mg Citalopram Hydrobromide (Celexa -) 20 mg PO DAILY [facility] Last Admin: 09/16/18 10:12 Dose: 20 mg Diphenoxylate HCl/Atropine (Lomotil -) 1 combo PO Q8H PRN PRN Reason: DIARRHEA Ceftriaxone Sodium 1 gm/ (Dextrose) 50 mls @ 100 mls/hr IVPB DAILY [facility] Last Admin: 09/16/18 10:11 Dose: 100 mls/hr Metronidazole (Flagyl 500mg Premixed Ivpb -) 500 mg in 100 mls @ 100 mls/hr IVPB Q8H-IV [facility] Last Admin: 09/16/18 10:49 Dose: 100 mls/hr Insulin Aspart (Novolog Vial Sliding Scale -) 1 vial SQ ACHS [facility]; Protocol Last Admin: 09/16/18 06:08 Dose: Not Given Levothyroxine Sodium (Synthroid -) 25 mcg PO DAILY@0700 [facility] Last Admin: 09/16/18 06:09 Dose: 25 mcg Ondansetron HCl (Zofran Injection) 4 mg IVPB Q6H PRN PRN Reason: NAUSEA Last Admin: 09/15/18 10:01 Dose: 4 mg Pancrelipase (Creon Dr 36,000 Units Capsule) 1 cap PO TIDCM [facility] Last Admin: 09/16/18 08:10 Dose: 1 cap Pantoprazole Sodium (Protonix Iv) 40 mg IVPUSH DAILY [facility] Last Admin: 09/16/18 10:11 Dose: 40 mg Potassium Chloride (K-Dur -) 40 meq PO DAILY [facility] Last Admin: 09/16/18 10:49 Dose: 40 meq Pramipexole Dihydrochloride (Mirapex -) 0.75 mg PO TID [facility] Last Admin: 09/16/18 06:09 Dose: 0.75 mg Torsemide (Demadex -) 100 mg PO DAILY [facility] Last Admin: 09/16/18 10:12 Dose: 100 mg Verapamil HCl (Calan Sr -) 240 mg PO DAILY [facility] Last Admin: 09/16/18 10:12 Dose: 240 mg Warfarin Sodium (Coumadin -) 9 mg PO DAILY@1800 [facility] Last Admin: 09/15/18 17:25 Dose: 9 mg - Objective Vital Signs: Vital Signs Temperature 98.8 F 09/16/18 09:10 Pulse Rate 70 09/16/18 09:10 Respiratory Rate 18 09/16/18 09:10 Blood Pressure 137/66 09/16/18 09:10 O2 Sat by Pulse Oximetry (%) 97 09/15/18 21:00 Constitutional: Yes: No Distress Cardiovascular: Yes: Regular Rate and Rhythm Respiratory: Yes: CTA Bilaterally Gastrointestinal: Yes: Soft Edema: No Neurological: Yes: Alert, Oriented Labs: CBC, BMP 09/16/18 06:14 09/16/18 06:14 INR, PTT INR 2.83 (0.83-1.09) H 09/15/18 07:55 Laboratory Tests 09/15/18 09/16/18 09/16/18 07:55 06:14 06:14 WBC 10.4 H Hgb 13.0 Hct 39.9 Plt Count 272 INR 2.83 H Sodium 141 Potassium 3.3 L Creatinine 1.0 09/16/18 06:20 WBC Hgb Hct Plt Count INR Pending Sodium Potassium Creatinine Assessment/Plan ecg: sr, nl intervals, no ischemic changes, no sig change from prior cxr: no sig chf echo 10/2016: nl lv/rv, mild lae, [facility], small pericardial eff ( previously reported) echo ([facility]) 03/2017: nl lv/rv, nl mvr, mild as mibi 2016: no ecg changes, no ischemia/scar, nl lvef 68 year old lady with past medical history of COPD on home , FIGUEROA (on cpap at home), CAD (s/p single vessel CABG 2006 with RUSSELL to OM and ROSALINA x2 to LAD 2011; last cath 06/2014 showed patent RUSSELL, patent LAD stents, no sig residual dz except for 80-90% OM that is bypassed), [facility] mvr ([facility], 2006, on coumadin) , anemia, TIA, dCHF, DM, HTN, pafib, antiphospholipid syndrome (on coumadin), fibromyalgia, migraines, chronic atypical cp, obesity, LBP here with abd pain, n /v/d. Abd pain, n/v/d: -GI consulting, on abx, diet being advanced Atyp CP: -chronic recurrent sx for the pt -MSK features, reproducible on exam--sec to severe coughing fits, +/- fibromyalgia -NST for this cp in 12/2013 and 04/2016 showed no ischemia and prior cath for this persistent cp 06/2014 showed patent graft and prior pci, no significant residual dz CAD, s/p CABG and PCI: -as above -no signs acs -normal lvef on recent echo, no anginal sxs -no bb due to copd, on verapamil instead -not on statin due to prior intolerance -cont ranexa for possible small vessel dz symptoms -given her epistaxis asa stopped as she is on ac. Dizziness: -pt c/o some dizziness at times (not positional, occurs even when laying down still in bed). Persisted even with holding ranexa so not side effect related. Recent holter and echo unremarkable. Continued outpt f/u with neuro, ent. [facility] MVR: -on AC w/ coumadin, target INR 2.5 to 3.5, home dose was 11mg x 6days, 9mg x 1 day -recent echo with normal [facility] mvr function HTN: Remains controlled on current meds. PAF: -rare episodes in past -remains in sr -continue verapamil -cont ac with coumadin, has hx of TIA Chronic HFpEF: -vol status has been stable on torsemide
[2018-09-16 11:40] LABS: INR 3.95 (0.83-1.09); PROTHROMBIN TIME (PATIENT) 47.3 SEC (9.7-13.0)
[2018-09-16] MEDS: ALBUTEROL SO4 2.5/IPRATROPIUM 0.5 INH SOL 3 ML VIAL.NEB. NEB SCH ×2 (13:31→20:57)
[2018-09-16] MEDS: WARFARIN NA 3 MG TABLET PO SCH (18:04)
[2018-09-16] MEDS: ATORVASTATIN CA 10 MG TABLET (FP) PO SCH (22:00)
[2018-09-16] MEDS: TOPIRAMATE 100 MG TABLET PO SCH (22:00)
[2018-09-17] MEDS: ONDANSETRON 4 MG/2 ML VIAL IVPB PRN (03:03)
[2018-09-17] MEDS: LEVOTHYROXINE NA 25 MCG TABLET (FP) PO SCH (06:16)
[2018-09-17] MEDS: INSULIN SLIDING SCALE (NOVOLOG) 1 VIAL SQ SCH ×4 (06:16→22:48)
[2018-09-17] MEDS: PRAMIPEXOLE DIHYDROCHLORIDE 0.5 MG TABLET PO SCH ×3 (06:16→22:46)
[2018-09-17 07:33] LABS: HEMATOCRIT 40.5 % (32.4-45.2); HEMOGLOBIN 13.1 GM/dL (10.7-15.3); MCH 28.1 pg (25.7-33.7); MCHC 32.4 g/dl (32.0-36.0); MEAN CELL VOLUME 86.9 fl (80-96); MEAN PLT VOLUME 9.2 fl (7.5-11.1); PLATELET COUNT 291 K/MM3 (134-434); RBC 4.66 M/mm3 (3.60-5.2); RDW 15.3 % (11.6-15.6); WHITE BLOOD COUNT 11.1 K/mm3 (4.0-10.0)
--- NOTE | 2018-09-17 07:46 | PN.GI ---
GI Progress Note Subjective: Patient states having one episode of clear vomitus yesterday. No further episodes of vomiting but continue to have nausea. Complains of RLQ aching pain. She states watery diarrhea has subsided but had 4 episodes of loose stool yesterday. Denies rectal bleeding or melena. FUA done shows retained stool and some bowel air distention secondary to constipation. Colonoscopy from 11/2015 shows mild diverticulosis in L colon and internal hemorrhoids. - Objective Vital Signs: Vital Signs Temperature 98.8 F 09/17/18 05:57 Pulse Rate 75 09/17/18 05:57 Respiratory Rate 18 09/17/18 05:57 Blood Pressure 151/70 09/17/18 05:57 O2 Sat by Pulse Oximetry (%) 97 09/15/18 21:00 Constitutional: No Distress, Calm, Obese Eyes: Yes: Conjunctiva Clear HENT: Yes: Atraumatic Cardiovascular: Yes: Regular Rate and Rhythm Respiratory: Yes: Regular, CTA Bilaterally Gastrointestinal Inspection: Yes: WNL. No: Ascites, Distention, Hernia, Scars, Other ...Auscultate: Yes: Normoactive Bowel Sounds. No: Hyperactive Bowel Sounds, Hypoactive Bowel Sounds, No Bowel Sounds, Other ...Palpate: Yes: Soft, Tenderness (RLQ, RUQ). No: Firm/Rigid, Guarding, Hepatomegaly, Mass, Pulsatile Mass, Splenomegaly, Tenderness, Epigastium, Tenderness, Rebound, Other ...Percussion: Yes: Tympanitic. No: Dullness, Fluid Wave, Other Neurological: Yes: Alert, Oriented Psychiatric: Yes: Alert, Oriented Labs: INR, PTT INR 3.95 (0.83-1.09) H 09/16/18 06:20 Active Medications Generic Name Dose Route Start Last Admin Trade Name Freq PRN Reason Stop Dose Admin Albuterol Sulfate 1 amp 09/16/18 10:38 Ventolin 0.083% Nebulizer Soln - NEB Q4H PRN SHORT OF BREATH/WHEEZING Albuterol/Ipratropium 1 amp 09/16/18 14:00 09/16/18 20:57 Duoneb - NEB 1 amp RTID [facility] Administration Atorvastatin Calcium 10 mg 09/11/18 22:00 09/16/18 22:00 Lipitor - PO 10 mg HS [facility] Administration Carbidopa/Levodopa 1 combo 09/16/18 22:00 09/17/18 06:16 Sinemet *Cr* 25/100 - PO 1 combo TID [facility] Administration Citalopram Hydrobromide 20 mg 09/12/18 10:00 09/16/18 10:12 Celexa - PO 20 mg DAILY [facility] Administration Ceftriaxone Sodium 1 gm/ 50 mls @ 100 mls/hr 09/12/18 17:00 09/16/18 10:11 Dextrose IVPB 100 mls/hr DAILY [facility] Administration Metronidazole 500 mg in 100 mls @ 100 mls/hr 09/12/18 18:00 09/17/18 02:41 Flagyl 500mg Premixed Ivpb - IVPB 100 mls/hr Q8H-IV [facility] Administration Insulin Aspart 1 vial 09/12/18 07:00 09/17/18 06:16 Novolog Vial Sliding Scale - SQ Not Given ACHS [facility] Protocol Levothyroxine Sodium 25 mcg 09/11/18 07:00 09/17/18 06:16 Synthroid - PO 25 mcg DAILY@0700 [facility] Administration Ondansetron HCl 4 mg 09/11/18 18:46 09/17/18 03:03 Zofran Injection IVPB 4 mg Q6H PRN Administration NAUSEA Pancrelipase 1 cap 09/11/18 08:00 09/16/18 17:13 [place] 36,000 Units Capsule PO 1 cap TIDCM [facility] Administration Pantoprazole Sodium 40 mg 09/12/18 10:00 09/16/18 10:11 Protonix Iv IVPUSH 40 mg DAILY [facility] Administration Potassium Chloride 40 meq 09/16/18 10:15 09/16/18 10:49 K-Dur - PO 40 meq DAILY [facility] Administration Pramipexole Dihydrochloride 0.75 mg 09/14/18 22:00 09/17/18 06:16 Mirapex - PO 0.75 mg TID [facility] Administration Topiramate 100 mg 09/16/18 22:00 09/16/18 22:00 Topamax - PO 100 mg BID [facility] Administration Torsemide 100 mg 09/12/18 10:00 09/16/18 10:12 Demadex - PO 100 mg DAILY [facility] Administration Verapamil HCl 240 mg 09/12/18 10:00 09/16/18 10:12 Calan Sr - PO 240 mg DAILY [facility] Administration Warfarin Sodium 9 mg 09/12/18 18:00 09/16/18 18:04 Coumadin - PO Not Given DAILY@1800 [facility] Problem List - Problems (1) Intractable diarrhea Code(s): R19.7 - DIARRHEA, UNSPECIFIED (2) Intractable abdominal pain Code(s): R10.9 - UNSPECIFIED ABDOMINAL PAIN
[2018-09-17 08:04] LABS: PROTHROMBIN TIME (PATIENT) 54.9 SEC (9.7-13.0)
[2018-09-17 08:07] LABS: INR 4.58 (0.83-1.09)
[2018-09-17] MEDS ORDERED: PT OWN MED DRAWER 7, Y5N ONE ×5 (08:11→21:29)
[2018-09-17] MEDS ORDERED: MAGNESIUM CITRATE 300 ML BOTTLE PO ONE (08:13)
[2018-09-17 08:16] LABS: ALBUMIN 3.1 g/dl (3.4-5.0); BILIRUBIN,TOTAL 0.4 mg/dL (0.2-1); BLOOD UREA NITROGEN 13.1 mg/dL (7-18); CALCIUM 8.8 mg/dL (8.5-10.1); POTASSIUM 3.3 mmol/L (3.5-5.1); TOT PROT 6.5 g/dl (6.4-8.2)
[2018-09-17] MEDS: LIPASE/PROTEASE/AMYLASE 36,000 UNIT CAPSULE PO SCH ×3 (08:38→17:16)
[2018-09-17] MEDS: ALBUTEROL SO4 2.5/IPRATROPIUM 0.5 INH SOL 3 ML VIAL.NEB. NEB SCH ×3 (08:50→20:15)
[2018-09-17] MEDS ORDERED: cefTRIAXone SODIUM 1 GM VIAL ONE (10:05)
[2018-09-17] MEDS ORDERED: DEXTROSE 5%-WATER - 50 ML IVPB ONE (10:05)
[2018-09-17] MEDS: POTASSIUM CHLORIDE TABS 20 MEQ TABLET.ER (FP) PO SCH (10:14)
[2018-09-17] MEDS: PANTOPRAZOLE SODIUM 40 MG VIAL IVPUSH SCH (10:15)
[2018-09-17] MEDS: CEFTRIAXONE 1 GM in DEXTROSE 5%-WATER - 50 ML IVPB SCH (10:15)
--- NOTE | 2018-09-17 10:17 | PN ---
Progress Note (short form) - Note Progress Note: PULMONARY c/o abdominal pain and diarrhea. Some shortness of breath overnight improved with bronchodilators. No fevers or chills. Vital Signs Period Temp Pulse Resp BP Sys/Wise Pulse Ox Last 24 Hr 98.1 F-98.8 F 75-93 - 106-151/53-85 Gen: NAD at rest Heart: RRR Lung: decreased breath sounds at the bases Abd: soft, nontender Ext: no edema CBC, BMP 09/17/18 06:23 09/17/18 06:23 Active Medications Albuterol Sulfate (Ventolin 0.083% Nebulizer Soln -) 1 amp NEB Q4H PRN PRN Reason: SHORT OF BREATH/WHEEZING Albuterol/Ipratropium (Duoneb -) 1 amp NEB RTID [facility] Last Admin: 09/17/18 08:50 Dose: 1 amp Atorvastatin Calcium (Lipitor -) 10 mg PO HS [facility] Last Admin: 09/16/18 22:00 Dose: 10 mg Carbidopa/Levodopa (Sinemet *Cr* 25/100 -) 1 combo PO TID [facility] Last Admin: 09/17/18 06:16 Dose: 1 combo Citalopram Hydrobromide (Celexa -) 20 mg PO DAILY [facility] Last Admin: 09/16/18 10:12 Dose: 20 mg Ceftriaxone Sodium 1 gm/ (Dextrose) 50 mls @ 100 mls/hr IVPB DAILY [facility] Last Admin: 09/16/18 10:11 Dose: 100 mls/hr Metronidazole (Flagyl 500mg Premixed Ivpb -) 500 mg in 100 mls @ 100 mls/hr IVPB Q8H-IV [facility] Last Admin: 09/17/18 02:41 Dose: 100 mls/hr Insulin Aspart (Novolog Vial Sliding Scale -) 1 vial SQ ACHS [facility]; Protocol Last Admin: 09/17/18 06:16 Dose: Not Given Levothyroxine Sodium (Synthroid -) 25 mcg PO DAILY@0700 [facility] Last Admin: 09/17/18 06:16 Dose: 25 mcg Metoclopramide HCl (Reglan -) 5 mg PO TIDAC [facility] Ondansetron HCl (Zofran Injection) 4 mg IVPB Q6H PRN PRN Reason: NAUSEA Last Admin: 09/17/18 03:03 Dose: 4 mg Pancrelipase (Creon Dr 36,000 Units Capsule) 1 cap PO TIDCM [facility] Last Admin: 09/17/18 08:38 Dose: 1 cap Pantoprazole Sodium (Protonix Iv) 40 mg IVPUSH DAILY [facility] Last Admin: 09/16/18 10:11 Dose: 40 mg Polyethylene Glycol (Miralax (For Daily Use) -) 17 gm PO DAILY [facility] Potassium Chloride (K-Dur -) 40 meq PO DAILY [facility] Last Admin: 09/16/18 10:49 Dose: 40 meq Pramipexole Dihydrochloride (Mirapex -) 0.75 mg PO TID [facility] Last Admin: 09/17/18 06:16 Dose: 0.75 mg Topiramate (Topamax -) 100 mg PO BID [facility] Last Admin: 09/16/18 22:00 Dose: 100 mg Torsemide (Demadex -) 100 mg PO DAILY [facility] Last Admin: 09/16/18 10:12 Dose: 100 mg Verapamil HCl (Calan Sr -) 240 mg PO DAILY [facility] Last Admin: 09/16/18 10:12 Dose: 240 mg Warfarin Sodium (Coumadin -) 9 mg PO DAILY@1800 [facility] Last Admin: 09/16/18 18:04 Dose: Not Given A/P Atypical Chest Pain COPD Chronic Hypoxic Respiratory Failure FIGUEROA CAD s/p CABG h/o MVR Atrial Fibrillation HTN - inhaled bronchodilators - O2 to keep SpO2 >90% - rate control - continue anticoagulation - GI work up in progress
[2018-09-17] MEDS: POLYETHYLENE GLYCOL 3350 119 GM BTL PO SCH (10:20)
[2018-09-17] MEDS: VERAPAMIL HCL 240 MG E.R. TABLET PO SCH (10:30)
[2018-09-17] MEDS: TOPIRAMATE 100 MG TABLET PO SCH ×2 (10:31→22:43)
[2018-09-17] MEDS: TORSEMIDE 100 MG TABLET PO SCH (10:31)
[2018-09-17] MEDS: CITALOPRAM HYDROBROMIDE 20 MG TABLET (FP) PO SCH (10:31)
[2018-09-17] MEDS: METOCLOPRAMIDE HCL 10 MG TABLET (FP) PO SCH ×2 (11:36→17:16)
--- NOTE | 2018-09-17 11:59 | PN ---
Progress Note (short form) - Note Progress Note: s: no cp, sob, palps, dizziness, complains of abd discomfort Current Medications Albuterol Sulfate (Ventolin 0.083% Nebulizer Soln -) 1 amp NEB Q4H PRN PRN Reason: SHORT OF BREATH/WHEEZING Albuterol/Ipratropium (Duoneb -) 1 amp NEB RTID [facility] Last Admin: 09/17/18 08:50 Dose: 1 amp Atorvastatin Calcium (Lipitor -) 10 mg PO HS [facility] Last Admin: 09/16/18 22:00 Dose: 10 mg Carbidopa/Levodopa (Sinemet *Cr* 25/100 -) 1 combo PO TID [facility] Last Admin: 09/17/18 06:16 Dose: 1 combo Citalopram Hydrobromide (Celexa -) 20 mg PO DAILY [facility] Last Admin: 09/17/18 10:31 Dose: 20 mg Ceftriaxone Sodium 1 gm/ (Dextrose) 50 mls @ 100 mls/hr IVPB DAILY [facility] Last Admin: 09/17/18 10:15 Dose: 100 mls/hr Metronidazole (Flagyl 500mg Premixed Ivpb -) 500 mg in 100 mls @ 100 mls/hr IVPB Q8H-IV [facility] Last Admin: 09/17/18 10:16 Dose: 100 mls/hr Insulin Aspart (Novolog Vial Sliding Scale -) 1 vial SQ ACHS [facility]; Protocol Last Admin: 09/17/18 11:39 Dose: 2 units Levothyroxine Sodium (Synthroid -) 25 mcg PO DAILY@0700 [facility] Last Admin: 09/17/18 06:16 Dose: 25 mcg Metoclopramide HCl (Reglan -) 5 mg PO TIDAC [facility] Last Admin: 09/17/18 11:36 Dose: 5 mg Ondansetron HCl (Zofran Injection) 4 mg IVPB Q6H PRN PRN Reason: NAUSEA Last Admin: 09/17/18 03:03 Dose: 4 mg Pancrelipase (Creon Dr 36,000 Units Capsule) 1 cap PO TIDCM [facility] Last Admin: 09/17/18 11:37 Dose: Not Given Pantoprazole Sodium (Protonix Iv) 40 mg IVPUSH DAILY [facility] Last Admin: 09/17/18 10:15 Dose: 40 mg Polyethylene Glycol (Miralax (For Daily Use) -) 17 gm PO DAILY [facility] Last Admin: 09/17/18 10:20 Dose: 17 grams Potassium Chloride (K-Dur -) 40 meq PO DAILY [facility] Last Admin: 09/17/18 10:14 Dose: 40 meq Pramipexole Dihydrochloride (Mirapex -) 0.75 mg PO TID [facility] Last Admin: 09/17/18 06:16 Dose: 0.75 mg Topiramate (Topamax -) 100 mg PO BID [facility] Last Admin: 09/17/18 10:31 Dose: 100 mg Torsemide (Demadex -) 100 mg PO DAILY [facility] Last Admin: 09/17/18 10:31 Dose: 100 mg Verapamil HCl (Calan Sr -) 240 mg PO DAILY [facility] Last Admin: 09/17/18 10:30 Dose: 240 mg Warfarin Sodium (Coumadin -) 9 mg PO DAILY@1800 [facility] Last Admin: 09/16/18 18:04 Dose: Not Given Vital Signs Period Temp Pulse Resp BP Sys/Wise Pulse Ox Last 24 Hr 98.1 F-98.8 F 75-93 18-19 106-151/53-85 Constitutional: Yes: No Distress Cardiovascular: Yes: Regular Rate and Rhythm Respiratory: Yes: CTA Bilaterally Gastrointestinal: Yes: Soft Edema: No Neurological: Yes: Alert, Oriented not agitated no jaundice, diaphoresis Assessment/Plan ecg: sr, nl intervals, no ischemic changes, no sig change from prior cxr: no sig chf echo 10/2016: nl lv/rv, mild lae, nl [facility] mvr, small pericardial eff ( previously reported) echo ([facility]) 03/2017: nl lv/rv, nl mvr, mild as mibi 2016: no ecg changes, no ischemia/scar, nl lvef 68 year old lady with past medical history of COPD on home , FIGUEROA (on cpap at home), CAD (s/p single vessel CABG 2006 with RUSSELL to OM and ROSALINA x2 to LAD 2011; last cath 06/2014 showed patent RUSSELL, patent LAD stents, no sig residual dz except for 80-90% OM that is bypassed), [facility]ch mvr ([facility], 2006, on coumadin) , anemia, TIA, dCHF, DM, HTN, pafib, antiphospholipid syndrome (on coumadin), fibromyalgia, migraines, chronic atypical cp, obesity, LBP here with abd pain, n /v/d. Abd pain, n/v/d: -manage per GI Atyp CP: -chronic recurrent sx for the pt -MSK features, reproducible on exam--sec to severe coughing fits, +/- fibromyalgia -NST for this cp in 12/2013 and 04/2016 showed no ischemia and prior cath for this persistent cp 06/2014 showed patent graft and prior pci, no significant residual dz CAD, s/p CABG and PCI: -as above -no signs acs -normal lvef on recent echo, no anginal sxs -no bb due to copd, on verapamil instead -not on statin due to prior intolerance -cont ranexa for possible small vessel dz symptoms -given her epistaxis asa stopped as she is on ac. Dizziness: -pt c/o some dizziness at times (not positional, occurs even when laying down still in bed). Persisted even with holding ranexa so not side effect related. Recent holter and echo unremarkable. Continued outpt f/u with neuro, ent. [facility] MVR: -on AC w/ coumadin, target INR 2.5 to 3.5, home dose was 11mg x 6days, 9mg x 1 day -[facility] function HTN: Remains controlled on current meds. PAF: -rare episodes in past -remains in sr -continue verapamil -cont ac with coumadin, has hx of TIA Chronic HFpEF: -vol status has been stable on torsemide
--- NOTE | 2018-09-17 15:12 | PN ---
Progress Note, Physician Chief Complaint: Diarrhea Abdominal Pain History of Present Illness: Previous notes and events reviewed awake and alert NAD FUA showed retain stool, citroma x 1 with good effect beginning to tolerate regular diet complain of nausea elevated INR--hold coumadin - Current Medication List Current Medications: Active Medications Albuterol Sulfate (Ventolin 0.083% Nebulizer Soln -) 1 amp NEB Q4H PRN PRN Reason: SHORT OF BREATH/WHEEZING Albuterol/Ipratropium (Duoneb -) 1 amp NEB RTID [facility] Last Admin: 09/17/18 13:55 Dose: 1 amp Atorvastatin Calcium (Lipitor -) 10 mg PO HS [facility] Last Admin: 09/16/18 22:00 Dose: 10 mg Carbidopa/Levodopa (Sinemet *Cr* 25/100 -) 1 combo PO TID [facility] Last Admin: 09/17/18 14:42 Dose: 1 combo Citalopram Hydrobromide (Celexa -) 20 mg PO DAILY [facility] Last Admin: 09/17/18 10:31 Dose: 20 mg Ceftriaxone Sodium 1 gm/ (Dextrose) 50 mls @ 100 mls/hr IVPB DAILY [facility] Last Admin: 09/17/18 10:15 Dose: 100 mls/hr Metronidazole (Flagyl 500mg Premixed Ivpb -) 500 mg in 100 mls @ 100 mls/hr IVPB Q8H-IV [facility] Last Admin: 09/17/18 10:16 Dose: 100 mls/hr Insulin Aspart (Novolog Vial Sliding Scale -) 1 vial SQ ACHS [facility]; Protocol Last Admin: 09/17/18 11:39 Dose: 2 units Levothyroxine Sodium (Synthroid -) 25 mcg PO DAILY@0700 [facility] Last Admin: 09/17/18 06:16 Dose: 25 mcg Metoclopramide HCl (Reglan -) 5 mg PO TIDAC [facility] Last Admin: 09/17/18 11:36 Dose: 5 mg Ondansetron HCl (Zofran Injection) 4 mg IVPB Q6H PRN PRN Reason: NAUSEA Last Admin: 09/17/18 03:03 Dose: 4 mg Pancrelipase (Creon Dr 36,000 Units Capsule) 1 cap PO TIDCM [facility] Last Admin: 09/17/18 11:37 Dose: Not Given Pantoprazole Sodium (Protonix Iv) 40 mg IVPUSH DAILY [facility] Last Admin: 09/17/18 10:15 Dose: 40 mg Polyethylene Glycol (Miralax (For Daily Use) -) 17 gm PO DAILY [facility] Last Admin: 09/17/18 10:20 Dose: 17 grams Potassium Chloride (K-Dur -) 40 meq PO DAILY [facility] Last Admin: 09/17/18 10:14 Dose: 40 meq Pramipexole Dihydrochloride (Mirapex -) 0.75 mg PO TID [facility] Last Admin: 09/17/18 14:43 Dose: 0.75 mg Topiramate (Topamax -) 100 mg PO BID [facility] Last Admin: 09/17/18 10:31 Dose: 100 mg Torsemide (Demadex -) 100 mg PO DAILY [facility] Last Admin: 09/17/18 10:31 Dose: 100 mg Verapamil HCl (Calan Sr -) 240 mg PO DAILY [facility] Last Admin: 09/17/18 10:30 Dose: 240 mg Warfarin Sodium (Coumadin -) 9 mg PO DAILY@1800 [facility] Last Admin: 09/16/18 18:04 Dose: Not Given - Objective Vital Signs: Vital Signs Temperature 98.9 F 09/17/18 13:28 Pulse Rate 92 H 09/17/18 13:28 Respiratory Rate 20 09/17/18 13:28 Blood Pressure 160/79 09/17/18 13:28 O2 Sat by Pulse Oximetry (%) 99 09/17/18 09:00 Constitutional: Yes: No Distress, Calm Eyes: Yes: Conjunctiva Clear HENT: Yes: Atraumatic Cardiovascular: Yes: Regular Rate and Rhythm Respiratory: Yes: Regular, CTA Bilaterally Gastrointestinal: Yes: Normal Bowel Sounds, Soft Musculoskeletal: Yes: Muscle Weakness Extremities: Yes: WNL Edema: No Neurological: Yes: Alert, Oriented Psychiatric: Yes: Alert, Oriented Labs: CBC, BMP 09/17/18 06:23 09/17/18 06:23 INR, PTT INR 4.58 (0.83-1.09) H* 09/17/18 06:23 Microbiology 09/11/18 01:30 Blood - Peripheral Venous Blood Culture - Final NO GROWTH AFTER 5 DAYS INCUBATION 09/11/18 01:30 Blood - Peripheral Venous Blood Culture - Final NO GROWTH AFTER 5 DAYS INCUBATION 09/10/18 18:35 Urine - Urine - Catheterized Urine Culture - Final Enterococcus Faecalis 09/12/18 15:05 Stool Clostridioides difficile Antigen - Final 09/12/18 15:05 Stool Clostridioides difficile Toxin Assay - Final 09/11/18 11:37 Nares - Mrsa Screen - Left MRSA Screen - Final Mr Mercedes Aureus 09/11/18 11:37 Nares - Mrsa Screen - Right MRSA Screen - Final NO MRSA ISOLATED Problem List - Problems (1) Intractable abdominal pain Assessment/Plan: -GI consult -tolerating regular diet -pain control Code(s): R10.9 - UNSPECIFIED ABDOMINAL PAIN (2) Intractable diarrhea Assessment/Plan: -stool culture, stool O&P ordered -Flagyl and Ceftriaxone -when resume regular diet, low fiber/lactose free -wbc 11.1 -Cdiff neg -afebrile -clear liquids -FUA ordered and show reatined stool Code(s): R19.7 - DIARRHEA, UNSPECIFIED (3) CAD (coronary artery disease) Assessment/Plan: -Atorvastatin Code(s): I25.10 - ATHSCL HEART DISEASE OF [place] CORONARY ARTERY W/O ANG PCTRS (4) Diabetes Assessment/Plan: -BGM ACHS -HgA1c -ISS Code(s): E11.9 - TYPE 2 DIABETES MELLITUS WITHOUT COMPLICATIONS Qualifiers: Diabetes mellitus type: type 2 Diabetes mellitus complication status: with neurologic complications (5) HTN (hypertension) Assessment/Plan: -Verapamil Code(s): I10 - ESSENTIAL (PRIMARY) HYPERTENSION Qualifiers: Hypertension type: essential hypertension Qualified Code(s): I10 - Essential (primary) hypertension (6) Afib Assessment/Plan: -Coumadin--when resume will start on 11mg x 6 days and 9mg x 1 day as per cardiology -monitor INR daily -therapeutic goal 2.5-3.5 -INR 4.58--HOLD COUMADIN until therapeutic Code(s): I48.91 - UNSPECIFIED ATRIAL FIBRILLATION Qualifiers: Atrial fibrillation type: paroxysmal Qualified Code(s): I48.0 - Paroxysmal atrial fibrillation (7) Hypokalemia Assessment/Plan: -monitor electrolyte and replete as needed -K 3.3 -K-dur 40mg BID Code(s): E87.6 - HYPOKALEMIA (8) Subtherapeutic international normalized ratio (INR) Assessment/Plan: -cardiology consult -continue Coumadin Code(s): R79.1 - ABNORMAL COAGULATION PROFILE (9) Chest pain Assessment/Plan: -resolved Code(s): R07.9 - CHEST PAIN, UNSPECIFIED Qualifiers: Chest pain type: unspecified Qualified Code(s): R07.9 - Chest pain, unspecified Assessment/Plan see problem list dvt ppx
[2018-09-17 18:48] VITALS: BMI 35.5
[2018-09-17] MEDS: ATORVASTATIN CA 10 MG TABLET (FP) PO SCH (22:44)
[2018-09-18] MEDS ORDERED: ACETAMINOPHEN 325 MG TABLET (FP) PO PRN (03:11)
[2018-09-18] MEDS ORDERED: PT OWN MED DRAWER 7, Y5N ONE ×2 (05:53→08:40)
[2018-09-18] MEDS: METOCLOPRAMIDE HCL 10 MG TABLET (FP) PO SCH (06:21)
[2018-09-18] MEDS: PRAMIPEXOLE DIHYDROCHLORIDE 0.5 MG TABLET PO SCH (06:22)
[2018-09-18] MEDS: LEVOTHYROXINE NA 25 MCG TABLET (FP) PO SCH (06:22)
[2018-09-18] MEDS: INSULIN SLIDING SCALE (NOVOLOG) 1 VIAL SQ SCH (06:23)
[2018-09-18 07:51] LABS: HEMATOCRIT 38.5 % (32.4-45.2); HEMOGLOBIN 12.6 GM/dL (10.7-15.3); MCH 28.5 pg (25.7-33.7); MCHC 32.8 g/dl (32.0-36.0); MEAN CELL VOLUME 86.8 fl (80-96); MEAN PLT VOLUME 8.8 fl (7.5-11.1); PLATELET COUNT 294 K/MM3 (134-434); RBC 4.43 M/mm3 (3.60-5.2); RDW 15.2 % (11.6-15.6); WHITE BLOOD COUNT 10.1 K/mm3 (4.0-10.0)
[2018-09-18 07:58] LABS: INR 3.13 (0.83-1.09); PROTHROMBIN TIME (PATIENT) 37.4 SEC (9.7-13.0)
[2018-09-18 08:25] LABS: ALBUMIN 3.1 g/dl (3.4-5.0); BILIRUBIN,TOTAL 0.7 mg/dL (0.2-1); BLOOD UREA NITROGEN 15.1 mg/dL (7-18); CALCIUM 8.5 mg/dL (8.5-10.1); CREATININE 1.2 mg/dL (0.55-1.3); POTASSIUM 3.1 mmol/L (3.5-5.1); TOT PROT 6.5 g/dl (6.4-8.2)
--- NOTE | 2018-09-18 08:28 | PN ---
Progress Note, Physician Chief Complaint: Diarrhea Abdominal Pain History of Present Illness: Previous notes and events reviewed awake and alert NAD tolerating regular diet denies nausea, complain of loose stools during night - Current Medication List Current Medications: Active Medications Acetaminophen (Tylenol -) 650 mg PO Q6H PRN PRN Reason: MILD PAIN Last Admin: 09/18/18 03:44 Dose: 650 mg Albuterol Sulfate (Ventolin 0.083% Nebulizer Soln -) 1 amp NEB Q4H PRN PRN Reason: SHORT OF BREATH/WHEEZING Albuterol/Ipratropium (Duoneb -) 1 amp NEB RTID [facility] Last Admin: 09/17/18 20:15 Dose: 1 amp Atorvastatin Calcium (Lipitor -) 10 mg PO HS [facility] Last Admin: 09/17/18 22:44 Dose: 10 mg Carbidopa/Levodopa (Sinemet *Cr* 25/100 -) 1 combo PO TID [facility] Last Admin: 09/18/18 06:22 Dose: 1 combo Citalopram Hydrobromide (Celexa -) 20 mg PO DAILY [facility] Last Admin: 09/17/18 10:31 Dose: 20 mg Ceftriaxone Sodium 1 gm/ (Dextrose) 50 mls @ 100 mls/hr IVPB DAILY [facility] Last Admin: 09/17/18 10:15 Dose: 100 mls/hr Metronidazole (Flagyl 500mg Premixed Ivpb -) 500 mg in 100 mls @ 100 mls/hr IVPB Q8H-IV [facility] Last Admin: 09/18/18 02:28 Dose: 100 mls/hr Insulin Aspart (Novolog Vial Sliding Scale -) 1 vial SQ ACHS [facility]; Protocol Last Admin: 09/18/18 06:23 Dose: Not Given Levothyroxine Sodium (Synthroid -) 25 mcg PO DAILY@0700 [facility] Last Admin: 09/18/18 06:22 Dose: 25 mcg Metoclopramide HCl (Reglan -) 5 mg PO TIDAC [facility] Last Admin: 09/18/18 06:21 Dose: 5 mg Ondansetron HCl (Zofran Injection) 4 mg IVPB Q6H PRN PRN Reason: NAUSEA Last Admin: 09/17/18 03:03 Dose: 4 mg Pancrelipase (Creon Dr 36,000 Units Capsule) 1 cap PO TIDCM [facility] Last Admin: 09/17/18 17:16 Dose: 1 cap Pantoprazole Sodium (Protonix Iv) 40 mg IVPUSH DAILY [facility] Last Admin: 09/17/18 10:15 Dose: 40 mg Polyethylene Glycol (Miralax (For Daily Use) -) 17 gm PO DAILY [facility] Last Admin: 09/17/18 10:20 Dose: 17 grams Potassium Chloride (K-Dur -) 40 meq PO DAILY [facility] Last Admin: 09/17/18 10:14 Dose: 40 meq Pramipexole Dihydrochloride (Mirapex -) 0.75 mg PO TID [facility] Last Admin: 09/18/18 06:22 Dose: 0.75 mg Topiramate (Topamax -) 100 mg PO BID [facility] Last Admin: 09/17/18 22:43 Dose: 100 mg Torsemide (Demadex -) 100 mg PO DAILY [facility] Last Admin: 09/17/18 10:31 Dose: 100 mg Verapamil HCl (Calan Sr -) 240 mg PO DAILY [facility] Last Admin: 09/17/18 10:30 Dose: 240 mg Warfarin Sodium (Coumadin -) 9 mg PO DAILY@1800 [facility] Last Admin: 09/16/18 18:04 Dose: Not Given - Objective Vital Signs: Vital Signs Temperature 99.0 F 09/18/18 06:00 Pulse Rate 72 09/18/18 06:00 Respiratory Rate 18 09/18/18 06:00 Blood Pressure 141/63 09/18/18 06:00 O2 Sat by Pulse Oximetry (%) 99 09/17/18 21:00 Constitutional: Yes: No Distress, Calm Eyes: Yes: Conjunctiva Clear HENT: Yes: Atraumatic Cardiovascular: Yes: Regular Rate and Rhythm Respiratory: Yes: Regular, CTA Bilaterally Gastrointestinal: Yes: Normal Bowel Sounds, Soft, Abdomen, Obese Musculoskeletal: Yes: Muscle Weakness Extremities: Yes: WNL Edema: No Neurological: Yes: Alert, Oriented Psychiatric: Yes: Alert, Oriented Labs: CBC, BMP 09/18/18 07:20 INR, PTT INR 3.13 (0.83-1.09) H 09/18/18 07:20 Problem List - Problems (1) Intractable abdominal pain Code(s): R10.9 - UNSPECIFIED ABDOMINAL PAIN (2) Intractable diarrhea Code(s): R19.7 - DIARRHEA, UNSPECIFIED (3) CAD (coronary artery disease) Code(s): I25.10 - ATHSCL HEART DISEASE OF [place] CORONARY ARTERY W/O ANG PCTRS (4) Diabetes Code(s): E11.9 - TYPE 2 DIABETES MELLITUS WITHOUT COMPLICATIONS Qualifiers: Diabetes mellitus type: type 2 Diabetes mellitus complication status: with neurologic complications (5) HTN (hypertension) Code(s): I10 - ESSENTIAL (PRIMARY) HYPERTENSION Qualifiers: Hypertension type: essential hypertension Qualified Code(s): I10 - Essential (primary) hypertension (6) Afib Code(s): I48.91 - UNSPECIFIED ATRIAL FIBRILLATION Qualifiers: Atrial fibrillation type: paroxysmal Qualified Code(s): I48.0 - Paroxysmal atrial fibrillation (7) Hypokalemia Code(s): E87.6 - HYPOKALEMIA (8) Subtherapeutic international normalized ratio (INR) Code(s): R79.1 - ABNORMAL COAGULATION PROFILE (9) Chest pain Code(s): R07.9 - CHEST PAIN, UNSPECIFIED Qualifiers: Chest pain type: unspecified Qualified Code(s): R07.9 - Chest pain, unspecified
[2018-09-18] MEDS: ALBUTEROL SO4 2.5/IPRATROPIUM 0.5 INH SOL 3 ML VIAL.NEB. NEB SCH (08:35)
[2018-09-18] MEDS ORDERED: cefTRIAXone SODIUM 1 GM VIAL ONE (08:42)
[2018-09-18] MEDS ORDERED: DEXTROSE 5%-WATER - 50 ML IVPB ONE (08:42)
[2018-09-18] MEDS: CEFTRIAXONE 1 GM in DEXTROSE 5%-WATER - 50 ML IVPB SCH (09:23)
[2018-09-18] MEDS: POTASSIUM CHLORIDE TABS 20 MEQ TABLET.ER (FP) PO SCH (09:24)
[2018-09-18] MEDS: PANTOPRAZOLE SODIUM 40 MG VIAL IVPUSH SCH (09:24)
[2018-09-18] MEDS: VERAPAMIL HCL 240 MG E.R. TABLET PO SCH (09:25)
[2018-09-18] MEDS: LIPASE/PROTEASE/AMYLASE 36,000 UNIT CAPSULE PO SCH (09:25)
[2018-09-18] MEDS: CITALOPRAM HYDROBROMIDE 20 MG TABLET (FP) PO SCH (09:26)
[2018-09-18] MEDS: TOPIRAMATE 100 MG TABLET PO SCH (09:26)
[2018-09-18] MEDS: TORSEMIDE 100 MG TABLET PO SCH (09:26)
[2018-09-18] MEDS: POLYETHYLENE GLYCOL 3350 119 GM BTL PO SCH (09:30)
--- NOTE | 2018-09-18 10:52 | DS ---
Physical Examination Vital Signs: Vital Signs Temperature 99.0 F 09/18/18 06:00 Pulse Rate 72 09/18/18 06:00 Respiratory Rate 18 09/18/18 06:00 Blood Pressure 141/63 09/18/18 06:00 O2 Sat by Pulse Oximetry (%) 99 09/17/18 21:00 Constitutional: Yes: No Distress, Calm Eyes: Yes: Conjunctiva Clear HENT: Yes: Atraumatic Neck: Yes: Supple Cardiovascular: Yes: Regular Rate and Rhythm Respiratory: Yes: Regular, CTA Bilaterally Gastrointestinal: Yes: Normal Bowel Sounds, Soft, Abdomen, Obese Musculoskeletal: Yes: Muscle Weakness Extremities: Yes: WNL Edema: No Neurological: Yes: Alert, Oriented Psychiatric: Yes: Alert, Oriented Labs: CBC, BMP 09/18/18 07:20 09/18/18 07:20 Discharge Summary Reason For Visit: INTRACTABLE DIARRHEA/INTRACTABLE ABDOMINAL PAIN Current Active Problems Asthma with COPD (Acute) Intractable abdominal pain (Acute) Intractable diarrhea (Acute) Subtherapeutic international normalized ratio (INR) (Acute) Type 2 diabetes mellitus with hyperosmolarity without nonketotic hyperglycemic- hyperosmolar coma ([facility]) (Acute) Hospital Course: see progress note Laboratory Tests 09/10/18 09/10/18 09/10/18 17:30 17:30 17:30 WBC 11.4 H RBC 4.64 Hgb 13.1 Hct 40.8 MCV 88.0 MCH 28.2 MCHC 32.1 RDW 15.9 H Plt Count 227 MPV 9.5 Absolute Neuts (auto) 9.7 H Neutrophils % 84.9 H Lymphocytes % 6.5 L D Monocytes % 7.8 Eosinophils % 0.5 Basophils % 0.3 Nucleated RBC % 0 PT with INR INR PTT (Actin FS) Sodium 139 Potassium 3.0 L Chloride 109 H Carbon Dioxide 22 Anion Gap 8 BUN 27.1 H Creatinine 1.0 Est GFR (CKD-EPI)AfAm 67.51 Est GFR (CKD-EPI)NonAf 58.25 POC Glucometer Random Glucose 123 H Lactic Acid 1.2 Calcium 8.0 L Magnesium Total Bilirubin 0.4 AST 8 L ALT 25 Alkaline Phosphatase 72 Total Protein 6.0 L Albumin 3.0 L Total Amylase Lipase 60 L TSH Urine Color Urine Appearance Urine pH Ur Specific [place] Urine Protein Urine Glucose (UA) Urine Ketones Urine Blood Urine Nitrite Urine Bilirubin Urine Urobilinogen Ur Leukocyte Esterase Urine WBC (Auto) Urine RBC (Auto) Urine Casts (Auto) U Epithel Cells (Auto) U Sm Round Cell (Auto) Urine Bacteria (Auto) Stool Occult Blood 09/10/18 09/11/18 09/11/18 18:35 01:30 07:00 WBC 8.3 RBC 4.34 Hgb 12.5 Hct 38.1 MCV 87.8 MCH 28.8 MCHC 32.7 RDW 15.8 H Plt Count 195 MPV 9.7 Absolute Neuts (auto) 6.5 Neutrophils % 77.8 Lymphocytes % 11.1 D Monocytes % 9.1 Eosinophils % 1.6 D Basophils % 0.4 Nucleated RBC % 0 PT with INR 28.60 H INR 2.40 H PTT (Actin FS) Sodium Potassium Chloride Carbon Dioxide Anion Gap BUN Creatinine Est GFR (CKD-EPI)AfAm Est GFR (CKD-EPI)NonAf POC Glucometer Random Glucose Lactic Acid Calcium Magnesium Total Bilirubin AST ALT Alkaline Phosphatase Total Protein Albumin Total Amylase Lipase TSH Urine Color Yellow Urine Appearance Clear Urine pH 5.5 Ur Specific [place] 1.025 Urine Protein Negative Urine Glucose (UA) Negative Urine Ketones Negative Urine Blood 1+ H Urine Nitrite Negative Urine Bilirubin Negative Urine Urobilinogen 0.2 Ur Leukocyte Esterase 1+ H Urine WBC (Auto) 8 Urine RBC (Auto) 24 Urine Casts (Auto) 7 U Epithel Cells (Auto) 10.4 U Sm Round Cell (Auto) None Urine Bacteria (Auto) 46.4 Stool Occult Blood 09/11/18 09/12/18 09/12/18 07:00 06:10 06:10 WBC 8.9 RBC 4.27 Hgb 12.3 Hct 37.1 MCV 86.9 MCH 28.8 MCHC 33.2 RDW 15.8 H Plt Count 210 MPV 9.0 Absolute Neuts (auto) Neutrophils % Lymphocytes % Monocytes % Eosinophils % Basophils % Nucleated RBC % PT with INR INR PTT (Actin FS) Sodium 142 143 Potassium 2.9 L* 3.4 L Chloride 111 H 111 H Carbon Dioxide 26 25 Anion Gap 5 L 7 L BUN 18.7 H 16.7 Creatinine 1.0 1.0 Est GFR (CKD-EPI)AfAm 67.51 67.51 Est GFR (CKD-EPI)NonAf 58.25 58.25 POC Glucometer Random Glucose 89 83 Lactic Acid Calcium 8.3 L 8.4 L Magnesium 2.0 Total Bilirubin 0.3 AST 13 L ALT 25 Alkaline Phosphatase 63 Total Protein 5.8 L Albumin 2.7 L Total Amylase 22 L Lipase 65 L TSH 0.34 L Urine Color Urine Appearance Urine pH Ur Specific [place] Urine Protein Urine Glucose (UA) Urine Ketones Urine Blood Urine Nitrite Urine Bilirubin Urine Urobilinogen Ur Leukocyte Esterase Urine WBC (Auto) Urine RBC (Auto) Urine Casts (Auto) U Epithel Cells (Auto) U Sm Round Cell (Auto) Urine Bacteria (Auto) Stool Occult Blood 09/12/18 09/12/18 09/12/18 06:10 06:10 06:25 WBC RBC Hgb Hct MCV MCH MCHC RDW Plt Count MPV Absolute Neuts (auto) Neutrophils % Lymphocytes % Monocytes % Eosinophils % Basophils % Nucleated RBC % PT with INR 20.10 H INR 1.69 H PTT (Actin FS) 39.2 H Sodium Potassium Chloride Carbon Dioxide Anion Gap BUN Creatinine Est GFR (CKD-EPI)AfAm Est GFR (CKD-EPI)NonAf POC Glucometer 83 Random Glucose Lactic Acid Calcium Magnesium Total Bilirubin AST ALT Alkaline Phosphatase Total Protein Albumin Total Amylase Lipase TSH Urine Color Urine Appearance Urine pH Ur Specific [place] Urine Protein Urine Glucose (UA) Urine Ketones Urine Blood Urine Nitrite Urine Bilirubin Urine Urobilinogen Ur Leukocyte Esterase Urine WBC (Auto) Urine RBC (Auto) Urine Casts (Auto) U Epithel Cells (Auto) U Sm Round Cell (Auto) Urine Bacteria (Auto) Stool Occult Blood 09/12/18 09/12/18 09/12/18 12:26 18:16 23:28 WBC RBC Hgb Hct MCV MCH MCHC RDW Plt Count MPV Absolute Neuts (auto) Neutrophils % Lymphocytes % Monocytes % Eosinophils % Basophils % Nucleated RBC % PT with INR INR PTT (Actin FS) Sodium Potassium Chloride Carbon Dioxide Anion Gap BUN Creatinine Est GFR (CKD-EPI)AfAm Est GFR (CKD-EPI)NonAf POC Glucometer 88 155 110 Random Glucose Lactic Acid Calcium Magnesium Total Bilirubin AST ALT Alkaline Phosphatase Total Protein Albumin Total Amylase Lipase TSH Urine Color Urine Appearance Urine pH Ur Specific [place] Urine Protein Urine Glucose (UA) Urine Ketones Urine Blood Urine Nitrite Urine Bilirubin Urine Urobilinogen Ur Leukocyte Esterase Urine WBC (Auto) Urine RBC (Auto) Urine Casts (Auto) U Epithel Cells (Auto) U Sm Round Cell (Auto) Urine Bacteria (Auto) Stool Occult Blood 09/13/18 09/13/18 09/13/18 06:00 06:00 06:01 WBC RBC Hgb Hct MCV MCH MCHC RDW Plt Count MPV Absolute Neuts (auto) Neutrophils % Lymphocytes % Monocytes % Eosinophils % Basophils % Nucleated RBC % PT with INR 27.40 H INR 2.30 H PTT (Actin FS) Sodium 139 Potassium 3.3 L Chloride 106 Carbon Dioxide 27 Anion Gap 6 L BUN 16.4 Creatinine 1.1 Est GFR (CKD-EPI)AfAm 60.16 Est GFR (CKD-EPI)NonAf 51.91 POC Glucometer 108 Random Glucose 108 H Lactic Acid Calcium 8.5 Magnesium Total Bilirubin 0.4 AST 15 ALT 26 Alkaline Phosphatase 71 Total Protein 6.8 Albumin 3.2 L Total Amylase Lipase TSH Urine Color Urine Appearance Urine pH Ur Specific [place] Urine Protein Urine Glucose (UA) Urine Ketones Urine Blood Urine Nitrite Urine Bilirubin Urine Urobilinogen Ur Leukocyte Esterase Urine WBC (Auto) Urine RBC (Auto) Urine Casts (Auto) U Epithel Cells (Auto) U Sm Round Cell (Auto) Urine Bacteria (Auto) Stool Occult Blood 09/13/18 09/13/18 09/13/18 11:28 16:04 22:39 WBC RBC Hgb Hct MCV MCH MCHC RDW Plt Count MPV Absolute Neuts (auto) Neutrophils % Lymphocytes % Monocytes % Eosinophils % Basophils % Nucleated RBC % PT with INR INR PTT (Actin FS) Sodium Potassium Chloride Carbon Dioxide Anion Gap BUN Creatinine Est GFR (CKD-EPI)AfAm Est GFR (CKD-EPI)NonAf POC Glucometer 105 147 122 Random Glucose Lactic Acid Calcium Magnesium Total Bilirubin AST ALT Alkaline Phosphatase Total Protein Albumin Total Amylase Lipase TSH Urine Color Urine Appearance Urine pH Ur Specific [place] Urine Protein Urine Glucose (UA) Urine Ketones Urine Blood Urine Nitrite Urine Bilirubin Urine Urobilinogen Ur Leukocyte Esterase Urine WBC (Auto) Urine RBC (Auto) Urine Casts (Auto) U Epithel Cells (Auto) U Sm Round Cell (Auto) Urine Bacteria (Auto) Stool Occult Blood 09/14/18 09/14/18 09/14/18 06:48 07:00 07:00 WBC 8.4 RBC 4.86 Hgb 13.8 Hct 41.9 MCV 86.2 MCH 28.3 MCHC 32.8 RDW 15.5 Plt Count 249 MPV 9.5 Absolute Neuts (auto) Neutrophils % Lymphocytes % Monocytes % Eosinophils % Basophils % Nucleated RBC % PT with INR 30.80 H INR 2.59 H PTT (Actin FS) Sodium Potassium Chloride Carbon Dioxide Anion Gap BUN Creatinine Est GFR (CKD-EPI)AfAm Est GFR (CKD-EPI)NonAf POC Glucometer 111 Random Glucose Lactic Acid Calcium Magnesium Total Bilirubin AST ALT Alkaline Phosphatase Total Protein Albumin Total Amylase Lipase TSH Urine Color Urine Appearance Urine pH Ur Specific [place] Urine Protein Urine Glucose (UA) Urine Ketones Urine Blood Urine Nitrite Urine Bilirubin Urine Urobilinogen Ur Leukocyte Esterase Urine WBC (Auto) Urine RBC (Auto) Urine Casts (Auto) U Epithel Cells (Auto) U Sm Round Cell (Auto) Urine Bacteria (Auto) Stool Occult Blood 09/14/18 09/14/18 09/14/18 07:00 10:15 11:26 WBC RBC Hgb Hct MCV MCH MCHC RDW Plt Count MPV Absolute Neuts (auto) Neutrophils % Lymphocytes % Monocytes % Eosinophils % Basophils % Nucleated RBC % PT with INR INR PTT (Actin FS) 57.1 H Sodium Potassium Chloride Carbon Dioxide Anion Gap BUN Creatinine Est GFR (CKD-EPI)AfAm Est GFR (CKD-EPI)NonAf POC Glucometer 130 Random Glucose Lactic Acid Calcium Magnesium Total Bilirubin AST ALT Alkaline Phosphatase Total Protein Albumin Total Amylase Lipase TSH Urine Color Urine Appearance Urine pH Ur Specific [place] Urine Protein Urine Glucose (UA) Urine Ketones Urine Blood Urine Nitrite Urine Bilirubin Urine Urobilinogen Ur Leukocyte Esterase Urine WBC (Auto) Urine RBC (Auto) Urine Casts (Auto) U Epithel Cells (Auto) U Sm Round Cell (Auto) Urine Bacteria (Auto) Stool Occult Blood Negative 09/14/18 09/14/18 09/15/18 16:19 21:05 05:53 WBC 9.1 RBC 4.48 Hgb 12.8 Hct 38.6 MCV 86.3 MCH 28.7 MCHC 33.2 RDW 15.4 Plt Count 259 MPV 9.4 Absolute Neuts (auto) Neutrophils % Lymphocytes % Monocytes % Eosinophils % Basophils % Nucleated RBC % PT with INR INR PTT (Actin FS) Sodium Potassium Chloride Carbon Dioxide Anion Gap BUN Creatinine Est GFR (CKD-EPI)AfAm Est GFR (CKD-EPI)NonAf POC Glucometer 159 182 Random Glucose Lactic Acid Calcium Magnesium Total Bilirubin AST ALT Alkaline Phosphatase Total Protein Albumin Total Amylase Lipase TSH Urine Color Urine Appearance Urine pH Ur Specific [place] Urine Protein Urine Glucose (UA) Urine Ketones Urine Blood Urine Nitrite Urine Bilirubin Urine Urobilinogen Ur Leukocyte Esterase Urine WBC (Auto) Urine RBC (Auto) Urine Casts (Auto) U Epithel Cells (Auto) U Sm Round Cell (Auto) Urine Bacteria (Auto) Stool Occult Blood 09/15/18 09/15/18 09/15/18 05:53 06:31 07:55 WBC RBC Hgb Hct MCV MCH MCHC RDW Plt Count MPV Absolute Neuts (auto) Neutrophils % Lymphocytes % Monocytes % Eosinophils % Basophils % Nucleated RBC % PT with INR 33.70 H INR 2.83 H PTT (Actin FS) 45.8 H Sodium Potassium Chloride Carbon Dioxide Anion Gap BUN Creatinine Est GFR (CKD-EPI)AfAm Est GFR (CKD-EPI)NonAf POC Glucometer 110 Random Glucose Lactic Acid Calcium Magnesium Total Bilirubin AST ALT Alkaline Phosphatase Total Protein Albumin Total Amylase Lipase TSH Urine Color Urine Appearance Urine pH Ur Specific [place] Urine Protein Urine Glucose (UA) Urine Ketones Urine Blood Urine Nitrite Urine Bilirubin Urine Urobilinogen Ur Leukocyte Esterase Urine WBC (Auto) Urine RBC (Auto) Urine Casts (Auto) U Epithel Cells (Auto) U Sm Round Cell (Auto) Urine Bacteria (Auto) Stool Occult Blood 09/15/18 09/15/18 09/15/18 11:24 16:50 17:10 WBC RBC Hgb Hct MCV MCH MCHC RDW Plt Count MPV Absolute Neuts (auto) Neutrophils % Lymphocytes % Monocytes % Eosinophils % Basophils % Nucleated RBC % PT with INR INR PTT (Actin FS) Sodium 138 Potassium 2.9 L* Chloride 99 Carbon Dioxide 31 Anion Gap 7 L BUN 17.2 Creatinine 1.1 Est GFR (CKD-EPI)AfAm 60.16 Est GFR (CKD-EPI)NonAf 51.91 POC Glucometer 141 147 Random Glucose 136 H Lactic Acid Calcium 8.3 L Magnesium Total Bilirubin AST ALT Alkaline Phosphatase Total Protein Albumin Total Amylase Lipase TSH Urine Color Urine Appearance Urine pH Ur Specific [place] Urine Protein Urine Glucose (UA) Urine Ketones Urine Blood Urine Nitrite Urine Bilirubin Urine Urobilinogen Ur Leukocyte Esterase Urine WBC (Auto) Urine RBC (Auto) Urine Casts (Auto) U Epithel Cells (Auto) U Sm Round Cell (Auto) Urine Bacteria (Auto) Stool Occult Blood 09/15/18 09/16/18 09/16/18 21:17 05:53 06:14 WBC RBC Hgb Hct MCV MCH MCHC RDW Plt Count MPV Absolute Neuts (auto) Neutrophils % Lymphocytes % Monocytes % Eosinophils % Basophils % Nucleated RBC % PT with INR INR PTT (Actin FS) 62.2 H Sodium Potassium Chloride Carbon Dioxide Anion Gap BUN Creatinine Est GFR (CKD-EPI)AfAm Est GFR (CKD-EPI)NonAf POC Glucometer 155 121 Random Glucose Lactic Acid Calcium Magnesium Total Bilirubin AST ALT Alkaline Phosphatase Total Protein Albumin Total Amylase Lipase TSH Urine Color Urine Appearance Urine pH Ur Specific [place] Urine Protein Urine Glucose (UA) Urine Ketones Urine Blood Urine Nitrite Urine Bilirubin Urine Urobilinogen Ur Leukocyte Esterase Urine WBC (Auto) Urine RBC (Auto) Urine Casts (Auto) U Epithel Cells (Auto) U Sm Round Cell (Auto) Urine Bacteria (Auto) Stool Occult Blood 09/16/18 09/16/18 09/16/18 06:14 06:14 06:20 WBC 10.4 H RBC 4.59 Hgb 13.0 Hct 39.9 MCV 87.0 MCH 28.4 MCHC 32.6 RDW 15.4 Plt Count 272 MPV 9.1 Absolute Neuts (auto) 7.5 Neutrophils % 72.3 Lymphocytes % 15.7 D Monocytes % 9.3 Eosinophils % 2.2 Basophils % 0.5 Nucleated RBC % 0 PT with INR 47.30 H INR 3.95 H PTT (Actin FS) Sodium 141 Potassium 3.3 L Chloride 103 Carbon Dioxide 33 H Anion Gap 5 L BUN 14.5 Creatinine 1.0 Est GFR (CKD-EPI)AfAm 67.51 Est GFR (CKD-EPI)NonAf 58.25 POC Glucometer Random Glucose 119 H Lactic Acid Calcium 8.9 Magnesium 2.2 Total Bilirubin 0.3 AST 19 ALT 31 Alkaline Phosphatase 68 Total Protein 6.5 Albumin 3.0 L Total Amylase Lipase TSH Urine Color Urine Appearance Urine pH Ur Specific [place] Urine Protein Urine Glucose (UA) Urine Ketones Urine Blood Urine Nitrite Urine Bilirubin Urine Urobilinogen Ur Leukocyte Esterase Urine WBC (Auto) Urine RBC (Auto) Urine Casts (Auto) U Epithel Cells (Auto) U Sm Round Cell (Auto) Urine Bacteria (Auto) Stool Occult Blood 09/16/18 09/16/18 09/16/18 11:18 17:18 21:58 WBC RBC Hgb Hct MCV MCH MCHC RDW Plt Count MPV Absolute Neuts (auto) Neutrophils % Lymphocytes % Monocytes % Eosinophils % Basophils % Nucleated RBC % PT with INR INR PTT (Actin FS) Sodium Potassium Chloride Carbon Dioxide Anion Gap BUN Creatinine Est GFR (CKD-EPI)AfAm Est GFR (CKD-EPI)NonAf POC Glucometer 179 134 136 Random Glucose Lactic Acid Calcium Magnesium Total Bilirubin AST ALT Alkaline Phosphatase Total Protein Albumin Total Amylase Lipase TSH Urine Color Urine Appearance Urine pH Ur Specific [place] Urine Protein Urine Glucose (UA) Urine Ketones Urine Blood Urine Nitrite Urine Bilirubin Urine Urobilinogen Ur Leukocyte Esterase Urine WBC (Auto) Urine RBC (Auto) Urine Casts (Auto) U Epithel Cells (Auto) U Sm Round Cell (Auto) Urine Bacteria (Auto) Stool Occult Blood 09/17/18 09/17/18 09/17/18 06:14 06:23 06:23 WBC 11.1 H RBC 4.66 Hgb 13.1 Hct 40.5 MCV 86.9 MCH 28.1 MCHC 32.4 RDW 15.3 Plt Count 291 MPV 9.2 Absolute Neuts (auto) Neutrophils % Lymphocytes % Monocytes % Eosinophils % Basophils % Nucleated RBC % PT with INR INR PTT (Actin FS) 71.0 H Sodium Potassium Chloride Carbon Dioxide Anion Gap BUN Creatinine Est GFR (CKD-EPI)AfAm Est GFR (CKD-EPI)NonAf POC Glucometer 125 Random Glucose Lactic Acid Calcium Magnesium Total Bilirubin AST ALT Alkaline Phosphatase Total Protein Albumin Total Amylase Lipase TSH Urine Color Urine Appearance Urine pH Ur Specific [place] Urine Protein Urine Glucose (UA) Urine Ketones Urine Blood Urine Nitrite Urine Bilirubin Urine Urobilinogen Ur Leukocyte Esterase Urine WBC (Auto) Urine RBC (Auto) Urine Casts (Auto) U Epithel Cells (Auto) U Sm Round Cell (Auto) Urine Bacteria (Auto) Stool Occult Blood 09/17/18 09/17/18 09/17/18 06:23 06:23 11:38 WBC RBC Hgb Hct MCV MCH MCHC RDW Plt Count MPV Absolute Neuts (auto) Neutrophils % Lymphocytes % Monocytes % Eosinophils % Basophils % Nucleated RBC % PT with INR 54.90 H INR 4.58 H* PTT (Actin FS) Sodium 137 Potassium 3.3 L Chloride 100 Carbon Dioxide 32 Anion Gap 6 L BUN 13.1 Creatinine 1.0 Est GFR (CKD-EPI)AfAm 67.51 Est GFR (CKD-EPI)NonAf 58.25 POC Glucometer 161 Random Glucose 111 H Lactic Acid Calcium 8.8 Magnesium Total Bilirubin 0.4 AST 16 ALT 12 L Alkaline Phosphatase 63 Total Protein 6.5 Albumin 3.1 L Total Amylase Lipase TSH Urine Color Urine Appearance Urine pH Ur Specific [place] Urine Protein Urine Glucose (UA) Urine Ketones Urine Blood Urine Nitrite Urine Bilirubin Urine Urobilinogen Ur Leukocyte Esterase Urine WBC (Auto) Urine RBC (Auto) Urine Casts (Auto) U Epithel Cells (Auto) U Sm Round Cell (Auto) Urine Bacteria (Auto) Stool Occult Blood 09/17/18 09/17/18 09/17/18 17:12 18:25 22:28 WBC RBC Hgb Hct MCV MCH MCHC RDW Plt Count MPV Absolute Neuts (auto) Neutrophils % Lymphocytes % Monocytes % Eosinophils % Basophils % Nucleated RBC % PT with INR INR PTT (Actin FS) Sodium Potassium Chloride Carbon Dioxide Anion Gap BUN Creatinine Est GFR (CKD-EPI)AfAm Est GFR (CKD-EPI)NonAf POC Glucometer 153 143 Random Glucose Lactic Acid Calcium Magnesium Total Bilirubin AST ALT Alkaline Phosphatase Total Protein Albumin Total Amylase Lipase TSH Urine Color Urine Appearance Urine pH Ur Specific [place] Urine Protein Urine Glucose (UA) Urine Ketones Urine Blood Urine Nitrite Urine Bilirubin Urine Urobilinogen Ur Leukocyte Esterase Urine WBC (Auto) Urine RBC (Auto) Urine Casts (Auto) U Epithel Cells (Auto) U Sm Round Cell (Auto) Urine Bacteria (Auto) Stool Occult Blood Negative 09/18/18 09/18/18 09/18/18 05:45 07:20 07:20 WBC 10.1 H RBC 4.43 Hgb 12.6 Hct 38.5 MCV 86.8 MCH 28.5 MCHC 32.8 RDW 15.2 Plt Count 294 MPV 8.8 Absolute Neuts (auto) Neutrophils % Lymphocytes % Monocytes % Eosinophils % Basophils % Nucleated RBC % PT with INR INR PTT (Actin FS) 51.6 H Sodium Potassium Chloride Carbon Dioxide Anion Gap BUN Creatinine Est GFR (CKD-EPI)AfAm Est GFR (CKD-EPI)NonAf POC Glucometer 136 Random Glucose Lactic Acid Calcium Magnesium Total Bilirubin AST ALT Alkaline Phosphatase Total Protein Albumin Total Amylase Lipase TSH Urine Color Urine Appearance Urine pH Ur Specific [place] Urine Protein Urine Glucose (UA) Urine Ketones Urine Blood Urine Nitrite Urine Bilirubin Urine Urobilinogen Ur Leukocyte Esterase Urine WBC (Auto) Urine RBC (Auto) Urine Casts (Auto) U Epithel Cells (Auto) U Sm Round Cell (Auto) Urine Bacteria (Auto) Stool Occult Blood 09/18/18 09/18/18 07:20 07:20 WBC RBC Hgb Hct MCV MCH MCHC RDW Plt Count MPV Absolute Neuts (auto) Neutrophils % Lymphocytes % Monocytes % Eosinophils % Basophils % Nucleated RBC % PT with INR 37.40 H INR 3.13 H PTT (Actin FS) Sodium 138 Potassium 3.1 L Chloride 101 Carbon Dioxide 31 Anion Gap 6 L BUN 15.1 Creatinine 1.2 Est GFR (CKD-EPI)AfAm 54.16 Est GFR (CKD-EPI)NonAf 46.73 POC Glucometer Random Glucose 137 H Lactic Acid Calcium 8.5 Magnesium Total Bilirubin 0.7 AST 13 L ALT 12 L Alkaline Phosphatase 62 Total Protein 6.5 Albumin 3.1 L Total Amylase Lipase TSH Urine Color Urine Appearance Urine pH Ur Specific [place] Urine Protein Urine Glucose (UA) Urine Ketones Urine Blood Urine Nitrite Urine Bilirubin Urine Urobilinogen Ur Leukocyte Esterase Urine WBC (Auto) Urine RBC (Auto) Urine Casts (Auto) U Epithel Cells (Auto) U Sm Round Cell (Auto) Urine Bacteria (Auto) Stool Occult Blood Active Medications Generic Name Dose Route Start Last Admin Trade Name Freq PRN Reason Stop Dose Admin Acetaminophen 650 mg 09/18/18 03:11 09/18/18 03:44 Tylenol - PO 650 mg Q6H PRN Administration MILD PAIN Albuterol Sulfate 1 amp 09/16/18 10:38 Ventolin 0.083% Nebulizer Soln - NEB Q4H PRN SHORT OF BREATH/WHEEZING Albuterol/Ipratropium 1 amp 09/16/18 14:00 09/18/18 08:35 Duoneb - NEB 1 amp RTID CHRIS Administration Atorvastatin Calcium 10 mg 09/11/18 22:00 09/17/18 22:44 Lipitor - PO 10 mg HS CHRIS Administration Carbidopa/Levodopa 1 combo 09/16/18 22:00 09/18/18 06:22 Sinemet *Cr* 25/100 - PO 1 combo TID CHRIS Administration Citalopram Hydrobromide 20 mg 09/12/18 10:00 09/18/18 09:26 Celexa - PO 20 mg DAILY CHRIS Administration Insulin Aspart 1 vial 09/12/18 07:00 09/18/18 06:23 Novolog Vial Sliding Scale - SQ Not Given ACHS [facility] Protocol Levothyroxine Sodium 25 mcg 09/11/18 07:00 09/18/18 06:22 Synthroid - PO 25 mcg DAILY@0700 CHRIS Administration Metoclopramide HCl 5 mg 09/17/18 11:00 09/18/18 06:21 Reglan - PO 5 mg TIDAC CHRIS Administration Metronidazole 250 mg 09/18/18 14:00 Flagyl - PO 10/02/18 13:59 TID CHRIS Ondansetron HCl 4 mg 09/11/18 18:46 09/17/18 03:03 Zofran Injection IVPB 4 mg Q6H PRN Administration NAUSEA Pancrelipase 1 cap 09/11/18 08:00 09/18/18 09:25 Creon 36,000 Units Capsule PO 1 cap TIDCM CHRIS Administration Pantoprazole Sodium 40 mg 09/12/18 10:00 09/18/18 09:24 Protonix Iv IVPUSH 40 mg DAILY CHRIS Administration Polyethylene Glycol 17 gm 09/17/18 10:00 09/18/18 09:30 Miralax (For Daily Use) - PO 17 grams DAILY [facility] Administration Potassium Chloride 40 meq 09/16/18 10:15 09/18/18 09:24 K-Dur - PO 40 meq DAILY [facility] Administration Pramipexole Dihydrochloride 0.75 mg 09/14/18 22:00 09/18/18 06:22 Mirapex - PO 0.75 mg TID CHRIS Administration Topiramate 100 mg 09/16/18 22:00 09/18/18 09:26 Topamax - PO 100 mg BID CHRIS Administration Torsemide 100 mg 09/12/18 10:00 09/18/18 09:26 Demadex - PO 100 mg DAILY CHRIS Administration Verapamil HCl 240 mg 09/12/18 10:00 09/18/18 09:25 Calan Sr - PO 240 mg DAILY [facility] Administration Warfarin Sodium 9 mg 09/12/18 18:00 09/16/18 18:04 Coumadin - PO Not Given DAILY@1800 [facility] Microbiology 09/11/18 01:30 Blood - Peripheral Venous Blood Culture - Final NO GROWTH AFTER 5 DAYS INCUBATION 09/11/18 01:30 Blood - Peripheral Venous Blood Culture - Final NO GROWTH AFTER 5 DAYS INCUBATION 09/10/18 18:35 Urine - Urine - Catheterized Urine Culture - Final Enterococcus Faecalis 09/12/18 15:05 Stool Clostridioides difficile Antigen - Final 09/12/18 15:05 Stool Clostridioides difficile Toxin Assay - Final 09/11/18 11:37 Nares - Mrsa Screen - Left MRSA Screen - Final S Aureus 09/11/18 11:37 Nares - Mrsa Screen - Right MRSA Screen - Final NO MRSA ISOLATED Condition: Stable - Instructions Diet, Activity, Other Instructions: Patient to follow up with PMD after discharge Patient to follow up [facility] Dr Mendez for outpatient followup continue to follow up with [facility] Loredo as scheduled Coumadin regimen: Coumadin 11mg x 6 days and Coumadin 9mg x 1 day, monitor INR , INR level 2.5-3.5 due to mechanical valve return to ER if develop severe pain, chest pain respiratory distress continue with medication as prescribed Referrals: Jose Esapña MD [Primary Care Provider] - Cheo Mendez MD [Staff Physician] - Disposition: ALF FACILITY - Home Medications Comprehensive Discharge Medication List: Ambulatory Orders Atorvastatin Ca [Lipitor] 10 mg PO HS 09/11/18 Cetirizine HCl [Zyrtec Rapidly Dissolving Tab -] 10 mg PO DAILY 09/11/18 Levothyroxine [Synthroid -] 25 mcg PO DAILY 09/11/18 Lipase/Protease/Amylase [Cecil Dr 36,000 Units Capsule] 1 cap PO DAILY 09/11/18 Torsemide 100 mg PO DAILY 09/11/18 Tramadol HCl [Ultram] 50 mg PO DAILY 09/11/18 Pramipexole Dihydrochloride 0.75 mg PO QID 09/14/18 Acetaminophen [Tylenol .Regular Strength -] 650 mg PO Q6H PRN tablet 09/18/18 Albuterol 0.083% Nebulizer Brigitte [Ventolin 0.083% Nebulizer Soln -] 1 amp NEB Q4H PRN amp 09/18/18 Albuterol 2.5/Ipratropium 0.5 [Duoneb -] 1 amp NEB RTID amp 09/18/18 Carbidopa/Levodopa *Cr* 25/100 [Sinemet *Cr* 25/100 -] 1 combo PO TID tablet.er 09/18/18 Citalopram Hydrobromide [Celexa -] 20 mg PO DAILY tablet 09/18/18 Insulin Sliding Scale [Novolog Vial Sliding Scale -] 1 vial SQ ACHS units 09/18 Metoclopramide HCl [Reglan -] 5 mg PO TIDAC tablet 09/18/18 Polyethylene Glycol 3350 [Miralax 119 gm Btl -] 17 gm PO DAILY bottle 09/18/18 Potassium Chloride [K-Dur -] 40 meq PO DAILY tablet.er 09/18/18 Pramipexole Dihydrochloride [Mirapex -] 0.75 mg PO TID tablet 09/18/18 Topiramate [Topamax -] 100 mg PO BID tablet 09/18/18 Verapamil HCl ER [Calan Sr -] 240 mg PO DAILY tablet.er 09/18/18 Warfarin Na [Coumadin -] 9 mg PO DAILY@1800 tablet 09/18/18 metroNIDAZOLE [Flagyl -] 250 mg PO TID tablet 09/18/18
--- NOTE | 2018-09-18 11:29 | PN ---
Progress Note (short form) - Note Progress Note: s: no cp, sob, palps, dizziness. abd discomfort improving. Current Medications Acetaminophen (Tylenol -) 650 mg PO Q6H PRN PRN Reason: MILD PAIN Last Admin: 09/18/18 03:44 Dose: 650 mg Albuterol Sulfate (Ventolin 0.083% Nebulizer Soln -) 1 amp NEB Q4H PRN PRN Reason: SHORT OF BREATH/WHEEZING Albuterol/Ipratropium (Duoneb -) 1 amp NEB RTID [facility] Last Admin: 09/18/18 08:35 Dose: 1 amp Atorvastatin Calcium (Lipitor -) 10 mg PO HS [facility] Last Admin: 09/17/18 22:44 Dose: 10 mg Carbidopa/Levodopa (Sinemet *Cr* 25/100 -) 1 combo PO TID [facility] Last Admin: 09/18/18 06:22 Dose: 1 combo Citalopram Hydrobromide (Celexa -) 20 mg PO DAILY [facility] Last Admin: 09/18/18 09:26 Dose: 20 mg Insulin Aspart (Novolog Vial Sliding Scale -) 1 vial SQ [facility]; Protocol Last Admin: 09/18/18 06:23 Dose: Not Given Levothyroxine Sodium (Synthroid -) 25 mcg PO DAILY@0700 [facility] Last Admin: 09/18/18 06:22 Dose: 25 mcg Metoclopramide HCl (Reglan -) 5 mg PO TIDAC [facility] Last Admin: 09/18/18 06:21 Dose: 5 mg Metronidazole (Flagyl -) 250 mg PO TID [facility] Stop: 10/02/18 13:59 Ondansetron HCl (Zofran Injection) 4 mg IVPB Q6H PRN PRN Reason: NAUSEA Last Admin: 09/17/18 03:03 Dose: 4 mg Pancrelipase (Creon Dr 36,000 Units Capsule) 1 cap PO TIDCM [facility] Last Admin: 09/18/18 09:25 Dose: 1 cap Pantoprazole Sodium (Protonix Iv) 40 mg IVPUSH DAILY [facility] Last Admin: 09/18/18 09:24 Dose: 40 mg Polyethylene Glycol (Miralax (For Daily Use) -) 17 gm PO DAILY [facility] Last Admin: 09/18/18 09:30 Dose: 17 grams Potassium Chloride (K-Dur -) 40 meq PO DAILY [facility] Last Admin: 09/18/18 09:24 Dose: 40 meq Pramipexole Dihydrochloride (Mirapex -) 0.75 mg PO TID [facility] Last Admin: 09/18/18 06:22 Dose: 0.75 mg Topiramate (Topamax -) 100 mg PO BID [facility] Last Admin: 09/18/18 09:26 Dose: 100 mg Torsemide (Demadex -) 100 mg PO DAILY [facility] Last Admin: 09/18/18 09:26 Dose: 100 mg Verapamil HCl (Calan Sr -) 240 mg PO DAILY [facility] Last Admin: 09/18/18 09:25 Dose: 240 mg Warfarin Sodium (Coumadin -) 9 mg PO DAILY@1800 [facility] Last Admin: 09/16/18 18:04 Dose: Not Given Vital Signs Period Temp Pulse Resp BP Sys/Wise Pulse Ox Last 24 Hr 97.8 F-99.1 F 71-93 18-20 136-160/62-79 99 Constitutional: Yes: No Distress Cardiovascular: Yes: Regular Rate and Rhythm Respiratory: Yes: CTA Bilaterally Gastrointestinal: Yes: Soft Edema: No Neurological: Yes: Alert, Oriented not agitated no jaundice, diaphoresis Assessment/Plan ecg: sr, nl intervals, no ischemic changes, no sig change from prior cxr: no sig chf echo 10/2016: nl lv/rv, mild lae, nl mech mvr, small pericardial eff ( previously reported) echo ([facility]) 03/2017: nl lv/rv, nl mvr, mild as mibi 2017: no ecg changes, no ischemia/scar, nl lvef 68 year old lady with past medical history of COPD on home , FIGUEROA (on cpap at home), CAD (s/p single vessel CABG 2006 with RUSSELL to OM and ROSALINA x2 to LAD 2011; last cath 06/2014 showed patent RUSSELL, patent LAD stents, no sig residual dz except for 80-90% OM that is bypassed), mech mvr ([facility], 2006, on coumadin) , anemia, TIA, dCHF, DM, HTN, pafib, antiphospholipid syndrome (on coumadin), fibromyalgia, migraines, chronic atypical cp, obesity, LBP here with abd pain, n /v/d. Abd pain, n/v/d: -manage per GI Atyp CP: -chronic recurrent sx for the pt -MSK features, reproducible on exam--sec to severe coughing fits, +/- fibromyalgia -NST for this cp in 12/2013 and 04/2016 showed no ischemia and prior cath for this persistent cp 06/2014 showed patent graft and prior pci, no significant residual dz CAD, s/p CABG and PCI: -as above -no signs acs -normal lvef on recent echo, no anginal sxs -no bb due to copd, on verapamil instead -not on statin due to prior intolerance -cont ranexa for possible small vessel dz symptoms -given her epistaxis asa stopped as she is on ac. Dizziness: -pt c/o some dizziness at times (not positional, occurs even when laying down still in bed). Persisted even with holding ranexa so not side effect related. Recent holter and echo unremarkable. Continued outpt f/u with neuro, ent. [facility] MVR: -on AC w/ coumadin, target INR 2.5 to 3.5, home dose was 11mg x 6days, 9mg x 1 day -recent echo with normal [facility] mvr function HTN: Remains controlled on current meds. PAF: -rare episodes in past -remains in sr -continue verapamil -cont ac with coumadin, has hx of TIA Chronic HFpEF: -vol status has been stable on torsemide
--- NOTE | 2018-09-18 13:57 | PN ---
Progress Note (short form) - Note Progress Note: PULMONARY Intermittent shortness of breath improved with bronchodilators. Vital Signs Period Temp Pulse Resp BP Sys/Wise Pulse Ox Last 24 Hr 97.8 F-99.1 F 71-93 18-19 132-158/62-74 99-99 Gen: NAD at rest Heart: RRR Lung: decreased breath sounds at the bases Abd: soft, nontender Ext: no edema CBC, BMP 09/18/18 07:20 09/18/18 07:20 Active Medications Acetaminophen (Tylenol -) 650 mg PO Q6H PRN PRN Reason: MILD PAIN Last Admin: 09/18/18 03:44 Dose: 650 mg Albuterol Sulfate (Ventolin 0.083% Nebulizer Soln -) 1 amp NEB Q4H PRN PRN Reason: SHORT OF BREATH/WHEEZING Albuterol/Ipratropium (Duoneb -) 1 amp NEB RTID [facility] Last Admin: 09/18/18 08:35 Dose: 1 amp Atorvastatin Calcium (Lipitor -) 10 mg PO HS [facility] Last Admin: 09/17/18 22:44 Dose: 10 mg Carbidopa/Levodopa (Sinemet *Cr* 25/100 -) 1 combo PO TID [facility] Last Admin: 09/18/18 06:22 Dose: 1 combo Citalopram Hydrobromide (Celexa -) 20 mg PO DAILY [facility] Last Admin: 09/18/18 09:26 Dose: 20 mg Insulin Aspart (Novolog Vial Sliding Scale -) 1 vial SQ [facility]; Protocol Last Admin: 09/18/18 06:23 Dose: Not Given Levothyroxine Sodium (Synthroid -) 25 mcg PO DAILY@0700 [facility] Last Admin: 09/18/18 06:22 Dose: 25 mcg Metoclopramide HCl (Reglan -) 5 mg PO TIDAC [facility] Last Admin: 09/18/18 06:21 Dose: 5 mg Metronidazole (Flagyl -) 250 mg PO TID [facility] Stop: 10/02/18 13:59 Ondansetron HCl (Zofran Injection) 4 mg IVPB Q6H PRN PRN Reason: NAUSEA Last Admin: 09/17/18 03:03 Dose: 4 mg Pancrelipase (Creon Dr 36,000 Units Capsule) 1 cap PO TIDCM [facility] Last Admin: 09/18/18 09:25 Dose: 1 cap Pantoprazole Sodium (Protonix Iv) 40 mg IVPUSH DAILY [facility] Last Admin: 09/18/18 09:24 Dose: 40 mg Polyethylene Glycol (Miralax (For Daily Use) -) 17 gm PO DAILY [facility] Last Admin: 09/18/18 09:30 Dose: 17 grams Potassium Chloride (K-Dur -) 40 meq PO DAILY [facility] Last Admin: 09/18/18 09:24 Dose: 40 meq Pramipexole Dihydrochloride (Mirapex -) 0.75 mg PO TID [facility] Last Admin: 09/18/18 06:22 Dose: 0.75 mg Topiramate (Topamax -) 100 mg PO BID [facility] Last Admin: 09/18/18 09:26 Dose: 100 mg Torsemide (Demadex -) 100 mg PO DAILY [facility] Last Admin: 09/18/18 09:26 Dose: 100 mg Verapamil HCl (Calan Sr -) 240 mg PO DAILY [facility] Last Admin: 09/18/18 09:25 Dose: 240 mg Warfarin Sodium (Coumadin -) 9 mg PO DAILY@1800 [facility] Last Admin: 09/16/18 18:04 Dose: Not Given A/P Atypical Chest Pain COPD Chronic Hypoxic Respiratory Failure FIGUEROA CAD s/p CABG h/o MVR Atrial Fibrillation HTN - inhaled bronchodilators - O2 to keep SpO2 >90% - rate control - continue anticoagulation - d/c planning
[2018-09-18] MEDS ORDERED: metroNIDAZOLE 250 MG TABLET PO SCH (14:00)
[2018-09-18 14:31] VITALS: BP 144/72; PULSE 99; TEMP 98.8
== END 2018-09-18 14:49 | DRG 391 ==
LOC: JER 16:13 → JERBED 21:32 → J5S 09-12 00:24 → J6S 09-13 00:49
PROVIDERS: ADMIT Family Medicine; ATTEND Family Medicine
DX: K57.30 Diverticulosis of large intestine without perforation or abscess without bleeding (principal); E11.00 Type 2 diabetes mellitus with hyperosmolarity without nonketotic hyperglycemic-hyperosmolar coma (NKHHC); I50.32 Chronic diastolic (congestive) heart failure; J96.11 Chronic respiratory failure with hypoxia; D68.61 Antiphospholipid syndrome; E11.65 Type 2 diabetes mellitus with hyperglycemia; I11.0 Hypertensive heart disease with heart failure; I48.0 Paroxysmal atrial fibrillation; E66.01 Morbid (severe) obesity due to excess calories; Z68.35 Body mass index [BMI] 35.0-35.9, adult; E87.6 Hypokalemia; E86.0 Dehydration; R07.89 Other chest pain; R19.7 Diarrhea, unspecified; E03.9 Hypothyroidism, unspecified; G25.81 Restless legs syndrome; Z79.4 Long term (current) use of insulin; E78.5 Hyperlipidemia, unspecified; D64.9 Anemia, unspecified; G47.33 Obstructive sleep apnea (adult) (pediatric); J44.9 Chronic obstructive pulmonary disease, unspecified; I25.10 Atherosclerotic heart disease of native coronary artery without angina pectoris; N21.0 Calculus in bladder; R56.9 Unspecified convulsions; M48.00 Spinal stenosis, site unspecified; M79.7 Fibromyalgia; Z79.01 Long term (current) use of anticoagulants; Z99.89 Dependence on other enabling machines and devices; Z99.81 Dependence on supplemental oxygen; Z95.1 Presence of aortocoronary bypass graft; Z95.4 Presence of other heart-valve replacement; Z90.710 Acquired absence of both cervix and uterus; Z86.73 Personal history of transient ischemic attack (TIA), and cerebral infarction without residual deficits; Z87.11 Personal history of peptic ulcer disease; Z87.891 Personal history of nicotine dependence; K64.8 Other hemorrhoids
CPT/HCPCS: 36415; 71045-TC-FY; 73630-TC-LT; 74019-TC-FY; 74176-TC; 80048; 80053; 81003; 82150; 82272; 82962; 83605; 83690; 83735; 84443; 85025; 85027; 85610; 85730; 87040; 87045; 87046; 87081; 87086; 87186; 87324; 87449; 93005; 93010; 94640; 97116-GP; 97161-GP; 99285-25; J0131

== ENCOUNTER 2019-02-04 17:51 | Inpatient (IN) | payer OTHER ==
--- NOTE | 2019-02-04 18:00 | PDOC ---
Rapid Medical Evaluation Time Seen by Provider: 02/04/19 17:59 Medical Evaluation: Allergies Allergy/AdvReac Type Severity Reaction Status Date / Time lactose Allergy Mild Verified 09/10/18 16:53 Beta-Blockers Allergy Verified 09/10/18 16:53 (Beta-Adrenergic Bloc Fish Containing Products Allergy Verified 09/10/18 16:53 fish derived Allergy Verified 09/10/18 16:53 Iodinated Contrast Media Allergy Verified 09/10/18 16:53 [IV Dye, Iodine Containing Contrast ] shellfish derived Allergy Verified 09/10/18 16:53 [id number] Reductase AdvReac Intermediate Verified 09/10/18 16:53 Inhibitor 02/04/19 17:59 I have performed a brief in-person evaluation of this patient. The patient presents with a chief complaint of: general illness, short of breath , headache, foot blisters Pertinent physical exam findings:stable and in NAD, non-focal I have ordered the following:labs The patient will proceed to the ED for further evaluation.
[2019-02-04 19:19] LABS: EOS % 1.5 % (0-4.5); HEMATOCRIT 38.4 % (32.4-45.2); HEMOGLOBIN 12.4 GM/dL (10.7-15.3); LYMPH % 21.2 % (8-40); MCH 27.7 pg (25.7-33.7); MCHC 32.3 g/dl (32.0-36.0); MEAN CELL VOLUME 85.8 fl (80-96); MEAN PLT VOLUME 9.7 fl (7.5-11.1); MONO % 9.1 % (3.8-10.2); NEUT % 67.2 % (42.8-82.8); PLATELET COUNT 299 K/MM3 (134-434); RBC 4.48 M/mm3 (3.60-5.2); RDW 15.3 % (11.6-15.6); WHITE BLOOD COUNT 10.7 K/mm3 (4.0-10.0)
--- NOTE | 2019-02-04 19:31 | PDOC ---
History of Present Illness - General Chief Complaint: Shortness of Breath Stated Complaint: SENT BY DR FARSHAD ATKINS Time Seen by Provider: 02/04/19 17:59 Past History - Past Medical History Allergies/Adverse Reactions: Allergies Allergy/AdvReac Type Severity Reaction Status Date / Time lactose Allergy Mild Verified 02/04/19 18:02 Beta-Blockers Allergy Verified 02/04/19 18:02 (Beta-Adrenergic Bloc Fish Containing Products Allergy Verified 02/04/19 18:02 fish derived Allergy Verified 02/04/19 18:02 Iodinated Contrast Media Allergy Verified 02/04/19 18:02 [IV Dye, Iodine Containing Contrast ] shellfish derived Allergy Verified 02/04/19 18:02 [id number]-[id number]-Iwf Reductase AdvReac Intermediate Verified 02/04/19 18:02 Inhibitor gabapentin AdvReac Verified 02/05/19 18:21 Home Medications: Ambulatory Orders Atorvastatin Ca [Lipitor] 10 mg PO HS 09/11/18 Levothyroxine [Synthroid -] 25 mcg PO DAILY 09/11/18 Lipase/Protease/Amylase [Cecil King 36,000 Units Capsule] 1 cap PO DAILY 09/11/18 Torsemide 100 mg PO DAILY 09/11/18 Tramadol HCl [Ultram] 50 mg PO DAILY 09/11/18 Pramipexole Dihydrochloride 0.75 mg PO QID 09/14/18 Carbidopa/Levodopa *Cr* 25/100 [Sinemet *Cr* 25/100 -] 1 combo PO TID tablet.er 09/18/18 Citalopram Hydrobromide [Celexa -] 20 mg PO DAILY tablet 09/18/18 Potassium Chloride [K-Dur -] 40 meq PO DAILY tablet.er 09/18/18 Pramipexole Dihydrochloride [Mirapex -] 0.75 mg PO TID tablet 09/18/18 Topiramate [Topamax -] 100 mg PO BID tablet 09/18/18 Verapamil HCl ER [Calan Sr -] 240 mg PO DAILY tablet.er 09/18/18 Acetaminophen W/ Codeine #3 [Tylenol # 3 -] 1 - 2 tab PO Q4H 02/04/19 Cetirizine HCl [Zyrtec -] 20 mg PO BID 02/04/19 Insulin Glulisine [Apidra] 100 unit SQ BIDAC 02/04/19 Warfarin Sodium [Coumadin] 8 mg PO HS 02/04/19 Warfarin Sodium [Coumadin] 10 mg PO HS 02/04/19 Anemia: Yes Asthma: Yes Cardiac Disorders: Yes (mitral valve replacement, stents x2,a-fib, CAD) CVA: Yes (MULTIPLE TIAs) COPD: Yes (Yes, O2 2L-3L) CHF: Yes DVT: No Diabetes: Yes GI Disorders: Yes (ulcers, GI bleed, hemorrhoids, diverticulosis) Disorders: Yes (bladder mesh) HTN: Yes Hypercholesterolemia: Yes Seizures: Yes Thyroid Disease: No - Surgical History Appendectomy: Yes Cardiac Surgery: Yes (stentsx2, mitral valve replacement, CABG) Cholecystectomy: Yes Orthopedic Surgery: Yes (left knee pain injection) - Immunization History Immunization Up to Date: Yes - Psycho Social/Smoking Cessation Hx Smoking Status: No Smoking History: Never smoked Have you smoked in the past 12 months: No Number of Cigarettes Smoked Daily: 0 If you are a former smoker, when did you quit?: many years Hx Alcohol Use: No Drug/Substance Use Hx: No Substance Use Type: None Hx Substance Use Treatment: No *Physical Exam - Vital Signs Last Vital Signs Temp Pulse Resp BP Pulse Ox 98.1 F 68 18 149/56 L 98 02/04/19 17:58 02/04/19 17:58 02/04/19 17:58 02/04/19 17:58 02/04/19 18:53 ED Treatment Course - LABORATORY CBC & Chemistry Diagram: 02/05/19 05:48 02/05/19 05:48 - ADDITIONAL ORDERS Additional order review: 02/04/19 18:25 RBC 4.48 MCV 85.8 MCHC 32.3 RDW 15.3 MPV 9.7 D Neutrophils % 67.2 Lymphocytes % 21.2 D Monocytes % 9.1 Eosinophils % 1.5 Basophils % 1.0 Medical Decision Making - Medical Decision Making 02/04/19 19:31 68yo F hx multiple medical problems (see below) sent by PCP Dr Atkins for admission with weeks of worsening chest discomfort, SOB, and tender purple bullae to L dorsal foot, unimproved by outpatient PO antibiotics and Valtrex course; also with NB diarrhea since antibiotics. PMH: - COPD (on 3LPM oxygen at home) - Asthma - FIGUEROA on CPAP - S/p mitral valve replacement with mechanical valve (2006) - Antiphospholipid Antibody Syndrome (on Lovenox) - CAD s/p bypass 2006, s/p stent 2014 - Afib (on Coumadin) - CHF - s/p total hysterectomy - s/p accidental bladder perforation during bladder sling placement, now chronically straight caths - H/o spinal stenosis - HTN - HLD - Lupus - Fibromyalgia on Toradol at home - Obesity SOB/CP ddx: ACS/NC, arrythmia, PNA, COPD, CHF, metabolic derangement, anemia Diarrhea: c diff, colitis, gastroenteritis Lesions: valtrex, cellulitis, benign skin lesion -EKG -CXR -CBC,CMP,Trop,Coags,VBG,Lact,UA,stool cx/C diff -Derm consult for skin biopsy -Pain management -Admit tele/obs Discharge - Discharge Information Problems reviewed: Yes - Follow up/Referral - Patient Discharge Instructions - Post Discharge Activity
[2019-02-04 19:37] LABS: ALBUMIN 3.4 g/dl (3.4-5.0); ALK PHOS 115 U/L (45-117); ANION GAP 6 MMOL/L (8-16); BILIRUBIN,TOTAL 0.3 mg/dL (0.2-1); CALCIUM 8.9 mg/dL (8.5-10.1); CHLORIDE 109 mmol/L (98-107); CO2 24 mmol/L (21-32); CREATININE 1.1 mg/dL (0.55-1.3); GLUCOSE,RANDOM 118 mg/dL (74-106); POTASSIUM 3.5 mmol/L (3.5-5.1); SGOT/AST 12 U/L (15-37); SGPT/ALT 25 U/L (13-61); SODIUM 140 mmol/L (136-145); TOT PROT 7.2 g/dl (6.4-8.2)
[2019-02-04 19:42] LABS: VENOUS PC02 43.6 mmHg (38-52); VENOUS PH 7.35 (7.31-7.41); VENOUS PO2 < 49 mmHg (28-48)
--- NOTE | 2019-02-04 19:44 | PDOC ---
Documentation entered by Meg Arias SCRIBE, acting as scribe for Dorota Sagastume MD. Dorota Sagastume MD: This documentation has been prepared by the Juana gabriel Sammi, SCRIBE, under my direction and personally reviewed by me in its entirety. I confirm that the documentation accurately reflects all work, treatment, procedures, and medical decision making performed by me. Attending Attestation - Resident Resident Name: Dayana Lira - ED Attending Attestation I have performed the following: I have examined & evaluated the patient, The case was reviewed & discussed with the resident, I agree w/resident's findings & plan, Exceptions are as noted - HPI HPI: 02/04/19 20:26 The patient is a 68 year old female who presents for evaluation of SOB and chest discomfort. She was also sent in by Dr. España for further evaluation of 1 week of new onset skin bula to left dorsal foot, which is pigmented and extremely tender and failed course of valtrex. 02/04/19 20:48 Obese 68-year-old female has complaint of chest pain shortness of breath and was also concerned about lesions to her lower extremity. Head normocephalic atraumatic Neck is supple no no bruits Lungs are clear to auscultation bilaterally CVS regular rate and rhythm S1-S2 Protuberant abdomen Skin warm and dry Extremities she has purple, painful bullae on the dorsal surface of her foot and chronic venous stasis changes neuro alert,coversant - Physicial Exam PE: 02/05/19 00:27 please see the above physical exam - Medical Decision Making 02/04/19 22:51 68-year-old female presents with multiple complaints and has multiple comorbidities She is being admitted to telemetry obvious for chest pressure Her PCP Dr. Jose España has requested a consult with a flower stripper concerning the bullae on her left lower extremity
[2019-02-04 20:31] LABS: INR 2.58 (0.83-1.09); PROTHROMBIN TIME (PATIENT) 30.7 SEC (9.7-13.0)
[2019-02-04] MEDS ORDERED: traMADol HCL 50 MG TABLET PO ONE (21:06)
[2019-02-04] MEDS ORDERED: traMADol HCL 50 MG TABLET ONE (21:31)
--- NOTE | 2019-02-05 00:18 | HP ---
Admitting History and Physical - Primary Care Physician PCP: - Admission Chief Complaint: Chest pain,SOB and foot blisters History of Present Illness: 68yo F hx multiple medical problems COPD/asthma, FIGUEROA (CPAP), S/p mitral valve replacement with mechanical valve (2006) on coumadin, CAD s/p bypass 2006, s/p stent 2014, A-fib, CHF, HTN/ HLD, spinal Stenosis, Lupus, Fibromyalgia who presents for evaluation of SOB and chest discomfort. PCP Dr España for admission with weeks of worsening chest discomfort, SOB, and tender purple bullae to L dorsal foot, unimproved by outpatient PO antibiotics and Valtrex course, needs derma follow up for skin biopsy. Patient denies Chills, fever, dizziness, headache, vomiting, diarrhea. Denies recent travel. 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 mitral valve replacement) Pulmonary: Yes: Asthma, COPD, Sleep Apnea (on CPAP at night) Gastrointestinal: Yes: Constipation, Diverticulosis, GI Bleed, Hemorrhoids Heme/Onc: Yes: Anemia Musculoskeletal: Yes: Chronic low back pain, Other (Spinal stenosis) Rheumatology: Yes: Fibromyalgia, Lupus, Other (APLAS (BOTH LUPUS AND APLS ARE QUESTIONABLE)) Endocrine: Yes: Diabetes Mellitus - Past Surgical History Past Surgical History: Yes: CABG, Cholecystectomy, Hysterectomy, Oopherectomy, Valve Replacement - Smoking History Smoking history: Never smoked Have you smoked in the past 12 months: No Aproximately how many cigarettes per day: 0 If you are a former smoker, when did you quit?: many years - Alcohol/Substance Use Hx Alcohol Use: No History of Substance Use: reports: None - Social History ADL: Independent History of Recent Travel: No Home Medications - Allergies Allergies/Adverse Reactions: Allergies Allergy/AdvReac Type Severity Reaction Status Date / Time lactose Allergy Mild Verified 02/04/19 18:02 Beta-Blockers Allergy Verified 02/04/19 18:02 (Beta-Adrenergic Bloc Fish Containing Products Allergy Verified 02/04/19 18:02 fish derived Allergy Verified 02/04/19 18:02 Iodinated Contrast Media Allergy Verified 02/04/19 18:02 [IV Dye, Iodine Containing Contrast ] shellfish derived Allergy Verified 02/04/19 18:02 Wuqugga-Lgh-Bnc Reductase AdvReac Intermediate Verified 02/04/19 18:02 Inhibitor - Home Medications Home Medications: Ambulatory Orders Atorvastatin Ca [Lipitor] 10 mg PO HS 09/11/18 Levothyroxine [Synthroid -] 25 mcg PO DAILY 09/11/18 Lipase/Protease/Amylase [[place] Dr 36,000 Units Capsule] 1 cap PO DAILY 09/11/18 Torsemide 100 mg PO DAILY 09/11/18 Tramadol HCl [Ultram] 50 mg PO DAILY 09/11/18 Pramipexole Dihydrochloride 0.75 mg PO QID 09/14/18 Carbidopa/Levodopa *Cr* 25/100 [Sinemet *Cr* 25/100 -] 1 combo PO TID tablet.er 09/18/18 Citalopram Hydrobromide [Celexa -] 20 mg PO DAILY tablet 09/18/18 Potassium Chloride [K-Dur -] 40 meq PO DAILY tablet.er 09/18/18 Pramipexole Dihydrochloride [Mirapex -] 0.75 mg PO TID tablet 09/18/18 Topiramate [Topamax -] 100 mg PO BID tablet 09/18/18 Verapamil HCl ER [Calan Sr -] 240 mg PO DAILY tablet.er 09/18/18 Acetaminophen W/ Codeine #3 [Tylenol # 3 -] 1 - 2 tab PO Q4H 02/04/19 Cetirizine HCl [Zyrtec -] 20 mg PO BID 02/04/19 Insulin Glulisine [Apidra] 100 unit SQ BIDAC 02/04/19 Warfarin Sodium [Coumadin] 8 mg PO HS 02/04/19 Warfarin Sodium [Coumadin] 10 mg PO HS 02/04/19 Family Medical History Family History: Denies Review of Systems - Review of Systems Constitutional: reports: No Symptoms Eyes: reports: No Symptoms HENT: reports: No Symptoms Neck: reports: No Symptoms Cardiovascular: reports: Chest Pain, Shortness of Breath Respiratory: reports: No Symptoms Gastrointestinal: reports: Diarrhea, Nausea Genitourinary: reports: No Symptoms Musculoskeletal: reports: Back Pain Integumentary: reports: Blister (left foot) Neurological: reports: No Symptoms Endocrine: reports: No Symptoms Hematology/Lymphatic: reports: No Symptoms Psychiatric: reports: No Symptoms Physical Examination Vital Signs: Vital Signs Temperature 98.3 F 02/04/19 20:42 Pulse Rate 65 02/04/19 20:42 Respiratory Rate 15 02/04/19 20:42 Blood Pressure 126/94 02/04/19 20:42 O2 Sat by Pulse Oximetry (%) 96 02/04/19 20:42 Constitutional: Yes: No Distress, Calm Eyes: Yes: Conjunctiva Clear, EOM Intact HENT: Yes: Atraumatic, Normocephalic Neck: Yes: Supple, Trachea Midline Cardiovascular: Yes: Regular Rate and Rhythm Respiratory: Yes: Regular, CTA Bilaterally Gastrointestinal: Yes: Normal Bowel Sounds, Soft Musculoskeletal: Yes: Back Pain, Joint Stiffness Extremities: Yes: WNL Edema: Yes Edema: LLE: 2+, RLE: 2+ Peripheral Pulses WNL: Yes Integumentary: Yes: Other (bulla left foot) Neurological: Yes: Alert, Oriented Labs: CBC, BMP 02/04/19 18:25 02/04/19 18:25 Imaging - Results Chest X-ray: Report Reviewed (no acute pathology) Problem List - Problems (1) Chest pain Code(s): R07.9 - CHEST PAIN, UNSPECIFIED Qualifiers: Chest pain type: unspecified Qualified Code(s): R07.9 - Chest pain, unspecified (2) Leukocytosis Code(s): D72.829 - ELEVATED WHITE BLOOD CELL COUNT, UNSPECIFIED (3) Blister (nonthermal), left foot, initial encounter Code(s): S90.822A - BLISTER (NONTHERMAL), LEFT FOOT, INITIAL ENCOUNTER (4) Diarrhea Code(s): R19.7 - DIARRHEA, UNSPECIFIED (5) Afib Code(s): I48.91 - UNSPECIFIED ATRIAL FIBRILLATION Qualifiers: Atrial fibrillation type: paroxysmal Qualified Code(s): I48.0 - Paroxysmal atrial fibrillation (6) Asthma with COPD Code(s): J44.9 - CHRONIC OBSTRUCTIVE PULMONARY DISEASE, UNSPECIFIED (7) CAD (coronary artery disease) Code(s): I25.10 - ATHSCL HEART DISEASE OF [place] CORONARY ARTERY W/O ANG PCTRS (8) CHF (congestive heart failure) Code(s): I50.9 - HEART FAILURE, UNSPECIFIED (9) Diabetes Code(s): E11.9 - TYPE 2 DIABETES MELLITUS WITHOUT COMPLICATIONS Qualifiers: Diabetes mellitus type: type 2 Diabetes mellitus complication status: with neurologic complications (10) Dyslipidemia Code(s): E78.5 - HYPERLIPIDEMIA, UNSPECIFIED (11) Fibromyalgia Code(s): M79.7 - FIBROMYALGIA (12) HTN (hypertension) Code(s): I10 - ESSENTIAL (PRIMARY) HYPERTENSION Qualifiers: Hypertension type: essential hypertension Qualified Code(s): I10 - Essential (primary) hypertension (13) FIGUEROA (obstructive sleep apnea) Code(s): G47.33 - OBSTRUCTIVE SLEEP APNEA (ADULT) (PEDIATRIC) (14) Parkinson disease Code(s): G20 - PARKINSON'S DISEASE (15) S/P MVR (mitral valve repair) Code(s): Z98.890 - OTHER SPECIFIED POSTPROCEDURAL STATES (16) SLE (systemic lupus erythematosus) Code(s): M32.9 - SYSTEMIC LUPUS ERYTHEMATOSUS, UNSPECIFIED (17) Spinal stenosis Code(s): M48.00 - SPINAL STENOSIS, SITE UNSPECIFIED (18) Depression Code(s): F32.9 - MAJOR DEPRESSIVE DISORDER, SINGLE EPISODE, UNSPECIFIED Assessment/Plan 68yo F hx multiple medical problems COPD/asthma, FIGUEROA (CPAP), S/p mitral valve replacement with mechanical valve (2006) on coumadin, CAD s/p bypass 2006, s/p stent 2014, A-fib, CHF, HTN/ HLD, spinal Stenosis, Lupus, Fibromyalgia who presents for evaluation of SOB and chest discomfort. PCP Dr España for admission with weeks of worsening chest discomfort, SOB, and tender purple bullae to L dorsal foot, unimproved by outpatient PO antibiotics and Valtrex course, needs derma follow up for skin biopsy. # Chest pain r/o ACS - tele obs, continuos cardiac monitoring - trop: negative, trend - EKG WNL - follow up cardio in AM # Left dorsal foot lesions ( failed outpatient valtrex tx) - follow up derma in AM for biopsy # Diarrhea - follow up stool cx, and C-diff toxin - contact precaution - if needed will start Kaopectate # leukcytosis - asymptomatic - follow up blood, urine culture - trend CBC # HTN/HLD # Afib (on Coumadin) # CHF # S/p mitral valve replacement with mechanical valve (2006) # CAD s/p bypass 2006, s/p stent 2014 -Atorvastatin Ca 10 mg PO HS -Warfarin Sodium 8 mg PO HS -Verapamil HCl ER 240 mg PO DAILY -Torsemide 100 mg PO DAILY -Topiramate 100 mg PO BID - follow PT/INR - Fluid restriction - Na controlled diet - 2g #COPD #Asthma #FIGUEROA - O2 via NC - nebs PRN - O2 via NC - CPAP as needed - Loratadine 10 mg PO qday - Elevate HOB for better air entry #H/o spinal stenosis #Lupus #Fibromyalgia on Toradol - Pain management - safety/fall precaution # DM - Insulin Glulisine [Apidra] 100 unit SQ BIDAC - BGM - HgbA1c #Parkinson's disease - Continue carbidopa/levodopa 25-100 - Pramipexole Dihydrochloride 0.75 mg PO TID - Continue outpatient neuro f/u #Depression - Citalopram Hydrobromide 20 mg PO DAILY #Hypothyrodsim - Levothyroxine 25 mcg PO DAILY FEN - No need for IVF, avoid fluid overload - Serial lytes - Sodium controlled, diabetic diet VTE: early Doreen bolden Dispo: tele obs Visit type - Emergency Visit Emergency Visit: Yes ED Registration Date: 02/04/19 Care time: The patient presented to the Emergency Department on the above date and was hospitalized for further evaluation of their emergent condition. - New Patient This patient is new to me today: Yes Date on this admission: 02/05/19 - Critical Care Critical Care patient: No
[2019-02-05] MEDS ORDERED: ALBUTEROL SO4 2.5/IPRATROPIUM 0.5 INH SOL 3 ML VIAL.NEB. NEB PRN (00:45)
[2019-02-05] MEDS ORDERED: INSULIN (NOVOLOG) ASPART 100 UNITS/ML 10ML VIAL SQ ONE (01:04)
[2019-02-05] MEDS: ACETAMINOPHEN WITH CODEINE 300MG/30MG TABLET PO PRN ×2 (05:10→22:04)
[2019-02-05] MEDS: PRAMIPEXOLE DIHYDROCHLORIDE 0.25 MG TABLET PO SCH ×3 (05:11→22:04)
[2019-02-05] MEDS: LEVOTHYROXINE NA 25 MCG TABLET (FP) PO SCH (06:48)
[2019-02-05 06:56] LABS: HEMATOCRIT 35.7 % (32.4-45.2); HEMOGLOBIN 11.7 GM/dL (10.7-15.3); MCHC 32.9 g/dl (32.0-36.0); MEAN CELL VOLUME 85.1 fl (80-96); MEAN PLT VOLUME 9.3 fl (7.5-11.1); PLATELET COUNT 287 K/MM3 (134-434); RDW 15.4 % (11.6-15.6); WHITE BLOOD COUNT 9.3 K/mm3 (4.0-10.0)
[2019-02-05] MEDS ORDERED: INSULIN GLULISINE 100 UNIT SQ SCH (07:00)
[2019-02-05 07:07] LABS: INR 2.35 (0.83-1.09)
[2019-02-05 07:31] LABS: CALCIUM 9.1 mg/dL (8.5-10.1); POTASSIUM 3.5 mmol/L (3.5-5.1)
[2019-02-05] MEDS ORDERED: CETIRIZINE HCL 20 MG PO SCH (10:00)
[2019-02-05] MEDS ORDERED: LIPASE/PROTEASE/AMYLASE 36,000 UNIT CAPSULE PO SCH (10:00)
[2019-02-05] MEDS ORDERED: PT OWN MED DRAWER 7, Y5N ONE ×3 (10:06→21:36)
[2019-02-05] MEDS: CITALOPRAM HYDROBROMIDE 20 MG TABLET (FP) PO SCH (10:09)
[2019-02-05] MEDS: traMADol HCL 50 MG TABLET PO SCH (10:09)
[2019-02-05] MEDS: TOPIRAMATE 100 MG TABLET PO SCH ×2 (10:10→22:03)
[2019-02-05] MEDS: TORSEMIDE 100 MG TABLET PO SCH (10:10)
[2019-02-05] MEDS: LORATADINE 10 MG TABLET PO SCH (10:10)
[2019-02-05] MEDS: LIPASE/PROTEASE/AMYLASE 36,000 UNIT CAPSULE PO SCH ×3 (10:11→18:47)
--- NOTE | 2019-02-05 10:18 | EKG ---
Test Reason : Blood Pressure : / mmHG Vent. Rate : 060 BPM Atrial Rate : 060 BPM P-R Int : 166 ms QRS Dur : 086 ms QT Int : 410 ms P-R-T Axes : 024 039 -06 degrees QTc Int : 410 ms NORMAL SINUS RHYTHM NONSPECIFIC T WAVE ABNORMALITY incoplete RBBB ABNORMAL ECG Confirmed by SIERRA ZHANG MD ([id number]) on 02/05/2019 10:18:40 AM Referred By: Confirmed By:SIERRA ZHANG MD
--- NOTE | 2019-02-05 10:33 | EKG ---
Test Reason : Blood Pressure : / mmHG Vent. Rate : 067 BPM Atrial Rate : 067 BPM P-R Int : 154 ms QRS Dur : 088 ms QT Int : 402 ms P-R-T Axes : 015 107 -29 degrees QTc Int : 424 ms NORMAL SINUS RHYTHM POSSIBLE LEFT ATRIAL ENLARGEMENT RIGHTWARD AXIS T WAVE ABNORMALITY, CONSIDER ANTERIOR ISCHEMIA ABNORMAL ECG WHEN COMPARED WITH ECG OF 12-SEP-2018 11:22, PREMATURE VENTRICULAR COMPLEXES ARE NO LONGER PRESENT Confirmed by VICENTE MEZA, SIERRA ([id number]) on 02/05/2019 10:32:53 AM Referred By: Confirmed By:SIERRA ZHANG MD
--- NOTE | 2019-02-05 11:47 | PN ---
Progress Note, Physician Chief Complaint: L foot bullae Chest pain History of Present Illness: NADc/o generalized pain Left foot pain described as "electric current" Treated with abx and valacyclovir o/p with no relief Unable to tolerate Gabapentin - Current Medication List Current Medications: Active Medications Acetaminophen/Codeine Phosphate (Tylenol # 3 -) 1 tab PO Q4H PRN PRN Reason: PAIN LEVEL 6-10 Last Admin: 02/05/19 05:10 Dose: 1 tab Albuterol/Ipratropium (Duoneb -) 1 amp NEB RQID PRN PRN Reason: SHORTNESS OF BREATH Atorvastatin Calcium (Lipitor -) 10 mg PO HS [facility] Carbidopa/Levodopa (Sinemet *Cr* 25/100 -) 1 combo PO TID [facility] Last Admin: 02/05/19 05:11 Dose: 1 combo Citalopram Hydrobromide (Celexa -) 20 mg PO DAILY [facility] Last Admin: 02/05/19 10:09 Dose: 20 mg Levothyroxine Sodium (Synthroid -) 25 mcg PO ACBK [facility] Last Admin: 02/05/19 06:48 Dose: 25 mcg Loratadine (Claritin -) 10 mg PO DAILY [facility] Last Admin: 02/05/19 10:10 Dose: 10 mg Pancrelipase (Creon Dr 36,000 Units Capsule) 1 cap PO TIDCM [facility] Last Admin: 02/05/19 10:11 Dose: 1 cap Pramipexole Dihydrochloride (Mirapex -) 0.75 mg PO TID [facility] Last Admin: 02/05/19 05:11 Dose: 0.75 mg Topiramate (Topamax -) 100 mg PO BID [facility] Last Admin: 02/05/19 10:10 Dose: 100 mg Torsemide (Demadex -) 100 mg PO DAILY [facility] Last Admin: 02/05/19 10:10 Dose: 100 mg Tramadol HCl (Ultram -) 50 mg PO DAILY [facility] Last Admin: 02/05/19 10:09 Dose: 50 mg Verapamil HCl (Calan Sr -) 240 mg PO DAILY [facility] Warfarin Sodium 5 mg/ Warfarin (Sodium 3 mg) 8 mg PO DAILY@1800 [facility] - Objective Vital Signs: Vital Signs Temperature 98 F 02/05/19 09:00 Pulse Rate 60 02/05/19 09:00 Respiratory Rate 18 02/05/19 09:00 Blood Pressure 142/58 L 02/05/19 09:00 O2 Sat by Pulse Oximetry (%) 97 02/05/19 03:50 Constitutional: Yes: Well Nourished, No Distress, Calm Cardiovascular: Yes: Regular Rate and Rhythm Respiratory: Yes: Regular Gastrointestinal: Yes: Normal Bowel Sounds, Soft, Abdomen, Obese Genitourinary: Yes: WNL Musculoskeletal: Yes: Back Pain, Joint Stiffness, Muscle Pain Extremities: Yes: WNL Edema: No Peripheral Pulses WNL: Yes Integumentary: Yes: Other (left foot blisters) Neurological: Yes: Alert, Oriented Psychiatric: Yes: Alert, Oriented Labs: CBC, BMP 02/05/19 05:48 02/05/19 05:48 INR, PTT INR 2.35 (0.83-1.09) H 02/05/19 05:48 Problem List - Problems (1) Blister (nonthermal), left foot, initial encounter Assessment/Plan: -Dermatology consult -Vascular consult -ID consult Problems reviewed: Yes Code(s): S90.822A - BLISTER (NONTHERMAL), LEFT FOOT, INITIAL ENCOUNTER (2) CAD (coronary artery disease) Assessment/Plan: -resume home meds -Cardiology consult -Tele monitor Problems reviewed: Yes Code(s): I25.10 - ATHSCL HEART DISEASE OF [place] CORONARY ARTERY W/O ANG PCTRS (3) Diabetes mellitus, insulin dependent (IDDM), uncontrolled Assessment/Plan: -A1c at 7.5 -BGM AC HS -Diabetic low sodium diet -Endocrinology consult -ISS Problems reviewed: Yes Code(s): E10.65 - TYPE 1 DIABETES MELLITUS WITH HYPERGLYCEMIA (4) Fibromyalgia Assessment/Plan: -Pain control -Doesn't see any rheumatology o/p -Encouraged to see rheumatology Problems reviewed: Yes Code(s): M79.7 - FIBROMYALGIA (5) H/O prosthetic mitral valve Assessment/Plan: -Mechanical MVR -On warfarin with INR goal of 2.5-3.5 -Daily INR monitoring -Also has Antiphospholipid syndrome Problems reviewed: Yes (6) MRSA (methicillin resistant Staphylococcus aureus) colonization Assessment/Plan: -Contact isolation Problems reviewed: Yes Code(s): Z22.322 - CARRIER OR SUSPECTED CARRIER OF METHICILLIN RESIS STAPH (7) SLE (systemic lupus erythematosus) Problems reviewed: Yes Code(s): M32.9 - SYSTEMIC LUPUS ERYTHEMATOSUS, UNSPECIFIED Assessment/Plan see problem list
[2019-02-05] MEDS: VERAPAMIL HCL 240 MG E.R. TABLET PO SCH (12:33)
--- NOTE | 2019-02-05 14:28 | CONSULT ---
- Consultation REQUESTING PROVIDER: CONSULT REQUEST: We have been asked to surgically evaluate this patient for painful left foot rash. PCP:Tucker Toussaint HISTORY OF PRESENT ILLNESS: 68yo F hx multiple medical problems COPD/asthma, FIGUEROA (CPAP), S/p mitral valve replacement with mechanical valve (2006) on coumadin, CAD s/p bypass 2006, s/p stent 2014, A-fib, CHF, HTN/ HLD, spinal Stenosis, DM, Lupus, Fibromyalgia who presented for evaluation of SOB and chest discomfort. PCP Dr España referred patient for admission for weeks of worsening chest discomfort and SOB. Patient states she has also has several tender lesion on her left foot which began @ 2 weeks ago preceded by a painful paresthesias prior to rash eruption. She was treated with outpatient PO antibiotics and Valtrex course with minimal improvement but has not seen dermatology for follow up for skin biopsy. Patient denies any other rashes, lesions, chills, fever, dizziness, headache, vomiting, Denies recent travel. Of note, patient states she also has experienced decreased vision in her right eye which began around the same time as the foot rash. 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: Yes: CVA Cardiovascular: Yes: AFIB, CAD, CHF, HTN, Hyperlipdemia, Other (S/P [facility] mitral valve replacement) Pulmonary: Yes: Asthma, COPD, Sleep Apnea (on CPAP at night) Gastrointestinal: Yes: Constipation, Diverticulosis, GI Bleed, Hemorrhoids Heme/Onc: Yes: Anemia Musculoskeletal: Yes: Chronic low back pain, Other (Spinal stenosis) Rheumatology: Yes: Fibromyalgia, Lupus, Other (APLAS (BOTH LUPUS AND APLS ARE QUESTIONABLE)) Endocrine: Yes: Diabetes Mellitus - Past Surgical History Past Surgical History: Yes: CABG, Cholecystectomy, Hysterectomy, Oopherectomy, Valve Replacement - Smoking History Smoking history: Never smoked Have you smoked in the past 12 months: No Aproximately how many cigarettes per day: 0 If you are a former smoker, when did you quit?: many years - Alcohol/Substance Use Hx Alcohol Use: No History of Substance Use: reports: None - Social History ADL: Independent History of Recent Travel: No Home Medications - Allergies Allergies/Adverse Reactions: Allergies Allergy/AdvReac Type Severity Reaction Status Date / Time lactose Allergy Mild Verified 02/04/19 18:02 Beta-Blockers Allergy Verified 02/04/19 18:02 (Beta-Adrenergic Bloc Fish Containing Products Allergy Verified 02/04/19 18:02 fish derived Allergy Verified 02/04/19 18:02 Iodinated Contrast Media Allergy Verified 02/04/19 18:02 [IV Dye, Iodine Containing Contrast ] shellfish derived Allergy Verified 02/04/19 18:02 Opytahe-Mvo-Aqf Reductase AdvReac Intermediate Verified 02/04/19 18:02 Inhibitor - Home Medications Home Medications: Ambulatory Orders Atorvastatin Ca [Lipitor] 10 mg PO HS 09/11/18 Levothyroxine [Synthroid -] 25 mcg PO DAILY 09/11/18 Lipase/Protease/Amylase [Creon Dr 36,000 Units Capsule] 1 cap PO DAILY 09/11/18 Torsemide 100 mg PO DAILY 09/11/18 Tramadol HCl [Ultram] 50 mg PO DAILY 09/11/18 Pramipexole Dihydrochloride 0.75 mg PO QID 09/14/18 Carbidopa/Levodopa *Cr* 25/100 [Sinemet *Cr* 25/100 -] 1 combo PO TID tablet.er 09/18/18 Citalopram Hydrobromide [Celexa -] 20 mg PO DAILY tablet 09/18/18 Potassium Chloride [K-Dur -] 40 meq PO DAILY tablet.er 09/18/18 Pramipexole Dihydrochloride [Mirapex -] 0.75 mg PO TID tablet 09/18/18 Topiramate [Topamax -] 100 mg PO BID tablet 09/18/18 Verapamil HCl ER [Calan Sr -] 240 mg PO DAILY tablet.er 09/18/18 Acetaminophen W/ Codeine #3 [Tylenol # 3 -] 1 - 2 tab PO Q4H 02/04/19 Cetirizine HCl [Zyrtec -] 20 mg PO BID 02/04/19 Insulin Glulisine [Apidra] 100 unit SQ BIDAC 02/04/19 Warfarin Sodium [Coumadin] 8 mg PO HS 02/04/19 Warfarin Sodium [Coumadin] 10 mg PO HS 02/04/19 Family Medical History Family History: Denies Review of Systems - Review of Systems Constitutional: reports: No Symptoms Eyes: reports: +Decreased vision in right eye x 2 wks HENT: reports: No Symptoms Neck: reports: No Symptoms Cardiovascular: reports: + Chest Pain, Respiratory: reports: + Shortness of Breath Gastrointestinal: reports: + Diarrhea, Nausea (2/2 abx) Genitourinary: reports: No Symptoms Musculoskeletal: reports: Back Pain Integumentary: reports: + Blister (left foot) Neurological: reports: No Symptoms Endocrine: reports: No Symptoms Hematology/Lymphatic: reports: No Symptoms Psychiatric: reports: No Symptoms Physical Examination Vital Signs: Vital Signs Temp 98.0 F 02/05/19 14:00 Pulse 67 02/05/19 14:00 Resp 18 02/05/19 09:00 BP 127/60 02/05/19 14:00 Pulse Ox 97 02/05/19 03:50 Intake & Output 02/04/19 02/05/19 02/05/19 23:59 11:59 23:59 Intake Total 210 240 Balance 210 240 Weight 204 lb 12.8 oz Intake: IV 10 saline lock 10 Oral 200 240 Other: Voiding Method Toilet # Unmeasured Voids Void 1 2 Bowel Movement No Height 5 ft 1 in Body Mass Index (BMI) 38.7 Weight Measurement Method Standing Scale PE: Constitutional: A&Ox3, NAD Eyes: Conjunctiva Clear, HENT: Atraumatic, Normocephalic Respiratory: Unlabored resp on 2L NC Musculoskeletal: Liimites ROM of hips and knees Extremities: moving all extremities without limitation, b/l LE compartments soft , supple and non-tender to palpation. Edema: LLE: +1, RLE: +1 Peripheral Pulses +2 DP b/l Integumentary: Left foot with several small hyperpigmented vesicles and papules seen over the lateral and dorsum of foot, no specific pattern or confluence, with lesion over 1-3rd toes and small lesions over the achilles. no lesions seen on the plantar surface or web spaces. no tracking erythema or evidence of cellulitis. no active d/c or foul odor.surrounding tissue grossly intact with no signs of breakdown. exquisitely painful to light touch throughout the left ankle and foot. No lesions seen anywhere else on the body Neurological: Yes: Alert, Oriented Labs CBC, BMP 02/05/19 05:48 02/05/19 05:48 Problem List - Problems (1) Blister (nonthermal), left foot, initial encounter Assessment/Plan: 68yo with several co-morbidities painful left foot rash of unclear origin. Palpable pulses and no indication for vascular intervention. -Dermatology consult/recommendations on biposy appreciated -ID recommendations appreciated -off load pressure sensitive areas -OOB with walker and assist-Fall risk Evaluation and plan discussed with Dr Leon. Code(s): S90.822A - BLISTER (NONTHERMAL), LEFT FOOT, INITIAL ENCOUNTER
--- NOTE | 2019-02-05 15:11 | CON.CARD ---
Cardiology Consult (text) - Consultation Consultation Note: Cc: blisters on foot hpi: 68 year old lady with past medical history of COPD on home 02, FIGUEROA (on cpap at home), CAD (s/p single vessel CABG 2006 with RUSSELL to OM and ROSALINA x2 to LAD 12/2011; last cath 06/2014 showed patent RUSSELL, patent LAD stents, no sig residual dz except for 80-90% OM that is bypassed), mech mvr ([facility], 2006, on coumadin), anemia, TIA, dCHF, DM, HTN, pafib, antiphospholipid syndrome (on coumadin), fibromyalgia, migraines, chronic atypical cp, obesity, LBP here with blisters on foot. Pt has her chronic body aches (including msk cp) and back pain. Also with chronic sob, dizzy, headaches. No orthopnea pnd. Some le edema in left foot with blisters. Sees me for cardio. pmh: per hpi psh: cabg, cholecystectomy, mvr, hysterectomy social: ex tob fam hx: no premature cad or scd ros: per hpi; also +vision changes, occ nausea and diarrhea; all others nl meds: Current Medications Generic Name Dose Route Start Last Admin Trade Name Freq PRN Reason Stop Dose Admin Acetaminophen 650 mg 02/05/19 11:59 Tylenol - PO Q4H PRN PAIN LEVEL 1-5 Acetaminophen/Codeine Phosphate 1 tab 02/05/19 00:40 02/05/19 05:10 Tylenol # 3 - PO 1 tab Q4H PRN Administration PAIN LEVEL 6-10 Albuterol/Ipratropium 1 amp 02/05/19 00:45 Duoneb - NEB RQID PRN SHORTNESS OF BREATH Atorvastatin Calcium 10 mg 02/05/19 22:00 Lipitor - PO HS CHRIS Carbidopa/Levodopa 1 combo 02/05/19 06:00 02/05/19 05:11 Sinemet *Cr* 25/100 - PO 1 combo TID CHRIS Administration Citalopram Hydrobromide 20 mg 02/05/19 10:00 02/05/19 10:09 Celexa - PO 20 mg DAILY CHRIS Administration Levothyroxine Sodium 25 mcg 02/05/19 07:00 02/05/19 06:48 Synthroid - PO 25 mcg ACBK CHRIS Administration Loratadine 10 mg 02/05/19 10:00 02/05/19 10:10 Claritin - PO 10 mg DAILY CHRIS Administration Pancrelipase 1 cap 02/05/19 08:00 02/05/19 12:33 Cecil King 36,000 Units Capsule PO 1 cap TIDCM CHRIS Administration Pramipexole Dihydrochloride 0.75 mg 02/05/19 06:00 02/05/19 05:11 Mirapex - PO 0.75 mg TID CHRIS Administration Topiramate 100 mg 02/05/19 10:00 02/05/19 10:10 Topamax - PO 100 mg BID CHRIS Administration Torsemide 100 mg 02/05/19 10:00 02/05/19 10:10 Demadex - PO 100 mg DAILY CHRIS Administration Tramadol HCl 50 mg 02/05/19 10:00 02/05/19 10:09 Ultram - PO 50 mg DAILY CHRIS Administration Verapamil HCl 240 mg 02/05/19 10:00 02/05/19 12:33 Calan Sr - PO 240 mg DAILY CHRIS Administration Warfarin Sodium 5 mg/ Warfarin 8 mg 02/05/19 18:00 Sodium 3 mg PO DAILY@1800 [facility] Home Medications Medication Instructions Recorded Atorvastatin Ca [Lipitor] 10 mg PO HS 09/11/18 Levothyroxine [Synthroid -] 25 mcg PO DAILY 09/11/18 Lipase/Protease/Amylase [Cecil King 1 cap PO DAILY 09/11/18 36,000 Units Capsule] Torsemide 100 mg PO DAILY 09/11/18 Tramadol HCl [Ultram] 50 mg PO DAILY 09/11/18 Pramipexole Dihydrochloride 0.75 mg PO QID 09/14/18 Carbidopa/Levodopa *Cr* 25/100 1 combo PO TID tablet.er 09/18/18 [Sinemet *Cr* 25/100 -] Citalopram Hydrobromide [Celexa -] 20 mg PO DAILY tablet 09/18/18 Potassium Chloride [K-Dur -] 40 meq PO DAILY tablet.er 09/18/18 Pramipexole Dihydrochloride 0.75 mg PO TID tablet 09/18/18 [Mirapex -] Topiramate [Topamax -] 100 mg PO BID tablet 09/18/18 Verapamil HCl ER [Calan Sr -] 240 mg PO DAILY tablet.er 09/18/18 Acetaminophen W/ Codeine #3 1 - 2 tab PO Q4H 02/04/19 [Tylenol # 3 -] Cetirizine HCl [Zyrtec -] 20 mg PO BID 02/04/19 Insulin Glulisine [Apidra] 100 unit SQ BIDAC 02/04/19 Warfarin Sodium [Coumadin] 8 mg PO HS 02/04/19 Warfarin Sodium [Coumadin] 10 mg PO HS 02/04/19 nad no jvd rrr s1s2 no mrg cta bl nl eff aaox3 no le e/c/c pos dp pt no carotid bruits no jaundice diaphoresis abd mild diff tender, pos bs, nd +reproducible chest wall pain (chronic) Laboratory Last Values WBC 9.3 K/mm3 (4.0-10.0) 02/05/19 05:48 RBC 4.20 M/mm3 (3.60-5.2) 02/05/19 05:48 Hgb 11.7 GM/dL (10.7-15.3) 02/05/19 05:48 Hct 35.7 % (32.4-45.2) 02/05/19 05:48 MCV 85.1 fl (80-96) 02/05/19 05:48 MCH 28.0 pg (25.7-33.7) 02/05/19 05:48 MCHC 32.9 g/dl (32.0-36.0) 02/05/19 05:48 RDW 15.4 % (11.6-15.6) 02/05/19 05:48 Plt Count 287 K/MM3 (134-434) 02/05/19 05:48 MPV 9.3 fl (7.5-11.1) 02/05/19 05:48 Absolute Neuts (auto) 7.2 K/mm3 (1.5-8.0) 02/04/19 18:25 Neutrophils % 67.2 % (42.8-82.8) 02/04/19 18:25 Lymphocytes % 21.2 % (8-40) D 02/04/19 18:25 Monocytes % 9.1 % (3.8-10.2) 02/04/19 18:25 Eosinophils % 1.5 % (0-4.5) 02/04/19 18:25 Basophils % 1.0 % (0-2.0) 02/04/19 18:25 Nucleated RBC % 0 % (0-0) 02/04/19 18:25 PT with INR 28.00 SEC (9.7-13.0) H 02/05/19 05:48 INR 2.35 (0.83-1.09) H 02/05/19 05:48 PTT (Actin FS) 52.0 SECONDS (25.2-36.5) H 02/04/19 18:25 VBG pH 7.35 (7.31-7.41) 02/04/19 19:20 POC VBG pCO2 43.6 mmHg (38-52) 02/04/19 19:20 POC VBG pO2 < 49 mmHg (28-48) H 02/04/19 19:20 VBG HCO3 23.7 mmol/L (23-29) 02/04/19 19:20 VBG O2 Sat (Dave) 81.9 % (70-80) H 02/04/19 19:20 VBG Base Excess -1.4 meq/l (-2-2) 02/04/19 19:20 Sodium 139 mmol/L (136-145) 02/05/19 05:48 Potassium 3.5 mmol/L (3.5-5.1) 02/05/19 05:48 Chloride 108 mmol/L (98-107) H 02/05/19 05:48 Carbon Dioxide 25 mmol/L (21-32) 02/05/19 05:48 Anion Gap 5 MMOL/L (8-16) L 02/05/19 05:48 BUN 15.0 mg/dL (7-18) 02/05/19 05:48 Creatinine 1.0 mg/dL (0.55-1.3) 02/05/19 05:48 Est GFR (CKD-EPI)AfAm 67.51 02/05/19 05:48 Est GFR (CKD-EPI)NonAf 58.25 02/05/19 05:48 POC Glucometer 124 UNITS (80-120) 02/05/19 05:08 Random Glucose 111 mg/dL (74-106) H 02/05/19 05:48 Hemoglobin A1c % 7.5 % (4.2-6.3) H 02/05/19 05:48 Lactic Acid 1.0 mmol/L (0.4-2.0) 02/04/19 20:37 Calcium 9.1 mg/dL (8.5-10.1) 02/05/19 05:48 Total Bilirubin 0.3 mg/dL (0.2-1) 02/04/19 18:25 AST 12 U/L (15-37) L 02/04/19 18:25 ALT 25 U/L (13-61) 02/04/19 18:25 Alkaline Phosphatase 115 U/L (45-117) 02/04/19 18:25 Troponin I < 0.02 ng/ml (0.00-0.05) 02/05/19 01:45 Total Protein 7.2 g/dl (6.4-8.2) 02/04/19 18:25 Albumin 3.4 g/dl (3.4-5.0) 02/04/19 18:25 ecg: sr, nl intervals, no ischemic changes, no sig change from prior cxr: no sig chf echo 10/2016: nl lv/rv, mild lae, nl mech mvr, small pericardial eff ( previously reported) echo ([facility]) 03/2017: nl lv/rv, nl mvr, mild as mibi 2016: no ecg changes, no ischemia/scar, nl lvef tele: sr a/p: 68 year old lady with past medical history of COPD on home , FIGUEROA (on cpap at home), CAD (s/p single vessel CABG 2006 with RUSSELL to OM and ROSALINA x2 to LAD 12/2011; last cath 06/2014 showed patent RUSSELL, patent LAD stents, no sig residual dz except for 80-90% OM that is bypassed), [facility] mvr (st julia, 2006, on coumadin), anemia, TIA, dCHF, DM, HTN, pafib, antiphospholipid syndrome (on coumadin), fibromyalgia, migraines, chronic atypical cp, obesity, LBP here with blisters on foot. foot blisters: -derm eval pending Atyp CP: -chronic recurrent sx for the pt -MSK features, reproducible on exam--sec to severe coughing fits, +/- fibromyalgia -NST for this cp in 12/2013 and 04/2016 showed no ischemia and prior cath for this persistent cp 06/2014 showed patent graft and prior pci, no significant residual dz -will check updated nuclear stress test and echo now given persistent sxs. cad, s/p cabg, pci: -as above -no signs acs -normal lvef -no bb due to copd, on verapamil instead -not on statin due to prior intolerance -given her epistaxis asa stopped as she is on ac. dizziness: -pt c/o some dizziness at times (not positional, occurs even when laying down still in bed). Persisted even with holding ranexa so not side effect related. Recent holter and echo unremarkable. Continued outpt f/u with neuro, ent. [facility] MVR: -on AC w/ coumadin, target INR 2.5 to 3.5 -recent echo with normal [facility] mvr function HTN: Remains controlled on current meds. pafib: -rare episodes in past -remains in sr -continue verapamil -cont ac with coumadin, has hx of TIA chronic HFpEF: -vol status has been stable on torsemide
--- NOTE | 2019-02-05 17:53 | PN ---
Progress Note (short form) - Note Progress Note: ID consult dictated imp/reccd 68 yo female admitted with with 18 day history of painful blisters on her left foot- she has been treated with valtrex 01/21-01/28 blisters have been unchanged for the last 18 days not dermatomal in distribution, not present anywhere else on her body would defer to dermatology please call back if needed
[2019-02-05] MEDS ORDERED: WARFARIN NA 5 MG TABLET (UD) ONE (18:44)
[2019-02-05] MEDS ORDERED: WARFARIN NA 3 MG TABLET ONE (18:45)
[2019-02-05] MEDS: WARFARIN NA 5 MG, WARFARIN NA 3 MG PO SCH (18:47)
[2019-02-05] MEDS ORDERED: PATIENT'S OWN MEDICATION (NON-FORMULARY) (Warfarin Sodium [Coumadin] 8 MG) PO SCH (22:00)
[2019-02-05] MEDS: ATORVASTATIN CA 10 MG TABLET (FP) PO SCH (22:03)
[2019-02-06] MEDS: PRAMIPEXOLE DIHYDROCHLORIDE 0.25 MG TABLET PO SCH ×3 (06:49→22:32)
[2019-02-06] MEDS: LEVOTHYROXINE NA 25 MCG TABLET (FP) PO SCH (06:49)
[2019-02-06] MEDS: INSULIN SLIDING SCALE (NOVOLOG) 1 VIAL SQ SCH ×3 (06:52→17:32)
[2019-02-06 07:44] LABS: INR 1.9 (0.83-1.09); PROTHROMBIN TIME (PATIENT) 22.6 SEC (9.7-13.0)
[2019-02-06] MEDS: ACETAMINOPHEN WITH CODEINE 300MG/30MG TABLET PO PRN ×2 (08:22→22:31)
[2019-02-06] MEDS ORDERED: REGADENOSON 0.4 MG/5 ML PRE-FILLED SYRINGE IVPUSH ONE ×2 (10:43→11:30)
[2019-02-06] MEDS: LIPASE/PROTEASE/AMYLASE 36,000 UNIT CAPSULE PO SCH ×3 (11:13→17:33)
--- NOTE | 2019-02-06 12:11 | PN ---
Progress Note (short form) - Note Progress Note: s: same msk cp, +chronic sob, no dizzy palps Current Medications Generic Name Dose Route Start Last Admin Trade Name Freq PRN Reason Stop Dose Admin Acetaminophen 650 mg 02/05/19 11:59 Tylenol - PO Q4H PRN PAIN LEVEL 1-5 Acetaminophen/Codeine Phosphate 1 tab 02/05/19 00:40 02/06/19 08:22 Tylenol # 3 - PO 1 tab Q4H PRN Administration PAIN LEVEL 6-10 Albuterol/Ipratropium 1 amp 02/05/19 00:45 Duoneb - NEB RQID PRN SHORTNESS OF BREATH Atorvastatin Calcium 10 mg 02/05/19 22:00 02/05/19 22:03 Lipitor - PO 10 mg HS CHRIS Administration Carbidopa/Levodopa 1 combo 02/05/19 06:00 02/06/19 06:49 Sinemet *Cr* 25/100 - PO Not Given TID [facility] Citalopram Hydrobromide 20 mg 02/05/19 10:00 02/05/19 10:09 Celexa - PO 20 mg DAILY CHRIS Administration Enoxaparin Sodium 90 mg 02/06/19 10:00 Lovenox - SQ BID [facility] Insulin Aspart 1 vial 02/06/19 07:00 02/06/19 11:14 Novolog Vial Sliding Scale - SQ Not Given TIDAC [facility] Protocol Levothyroxine Sodium 25 mcg 02/05/19 07:00 02/06/19 06:49 Synthroid - PO Not Given ACBK [facility] Loratadine 10 mg 02/05/19 10:00 02/05/19 10:10 Claritin - PO 10 mg DAILY CHRIS Administration Pancrelipase 1 cap 02/05/19 08:00 02/06/19 11:13 Cecil King 36,000 Units Capsule PO Not Given TIDCM [facility] Pramipexole Dihydrochloride 0.75 mg 02/05/19 06:00 02/06/19 06:49 Mirapex - PO Not Given TID [facility] Topiramate 100 mg 02/05/19 10:00 02/05/19 22:03 Topamax - PO 100 mg BID CHRIS Administration Torsemide 100 mg 02/05/19 10:00 02/05/19 10:10 Demadex - PO 100 mg DAILY CHRIS Administration Tramadol HCl 50 mg 02/05/19 10:00 02/05/19 10:09 Ultram - PO 50 mg DAILY CHRIS Administration Verapamil HCl 240 mg 02/05/19 10:00 02/05/19 12:33 Calan Sr - PO 240 mg DAILY CHRIS Administration Warfarin Sodium 5 mg/ Warfarin 8 mg 02/05/19 18:00 02/05/19 18:47 Sodium 3 mg PO 8 mg DAILY@1800 CHRIS Administration Vital Signs Period Temp Pulse Resp BP Sys/Wise Pulse Ox Last 24 Hr 97.3 F-98.9 F 55-77 18-20 124-146/48-60 97-98 nad no jvd rrr s1s2 no mrg cta bl nl eff aaox3 no le e/c/c pos dp pt no carotid bruits no jaundice diaphoresis abd mild diff tender, pos bs, nd +reproducible chest wall pain (chronic) CBC, BMP 02/05/19 05:48 02/05/19 05:48 ecg: sr, nl intervals, no ischemic changes, no sig change from prior cxr: no sig chf echo 10/2016: nl lv/rv, mild lae, nl mech mvr, small pericardial eff ( previously reported) echo ([facility]) 03/2017: nl lv/rv, nl mvr, mild as mibi 2016: no ecg changes, no ischemia/scar, nl lvef tele: sr a/p: 68 year old lady with past medical history of COPD on home , FIGUEROA (on cpap at home), CAD (s/p single vessel CABG 2006 with RUSSELL to OM and ROSALINA x2 to LAD 12/2011; last cath 06/2014 showed patent RUSSELL, patent LAD stents, no sig residual dz except for 80-90% OM that is bypassed), [facility] mvr (st julia, 2006, on coumadin), anemia, TIA, dCHF, DM, HTN, pafib, antiphospholipid syndrome (on coumadin), fibromyalgia, migraines, chronic atypical cp, obesity, LBP here with blisters on foot. foot blisters: -derm eval pending Atyp CP: -chronic recurrent sx for the pt -MSK features, reproducible on exam--sec to severe coughing fits, +/- fibromyalgia -NST for this cp in 12/2013 and 04/2016 showed no ischemia and prior cath for this persistent cp 06/2014 showed patent graft and prior pci, no significant residual dz -will check updated nuclear stress test and echo now given persistent sxs, if benign then no further cardiac testing needed at this time. cad, s/p cabg, pci: -as above -no signs acs -normal lvef -no bb due to copd, on verapamil instead -not on statin due to prior intolerance -given her epistaxis asa stopped as she is on ac. dizziness: -pt c/o some dizziness at times (not positional, occurs even when laying down still in bed). Persisted even with holding ranexa so not side effect related. Recent holter and echo unremarkable. Continued outpt f/u with neuro, ent. [facility] MVR: -on AC w/ coumadin, target INR 2.5 to 3.5. inr is low today, will start lovenox for bridging -recent echo with normal [facility] mvr function HTN: Remains controlled on current meds. pafib: -rare episodes in past -remains in sr -continue verapamil -cont ac with coumadin, has hx of TIA chronic HFpEF: -vol status has been stable on torsemide
--- NOTE | 2019-02-06 13:07 | ECHO ---
Name: LANG, MECCA Exam:Adult Echocardiogram Study Date: 02/06/2019 09:25 AM Age: 68 yrs Reason For Study: sob Height: 60 in Weight: 204 lb BSA: 1.9 m2 MMode/2D Measurements & Calculations IVSd: 1.1 cm Ao root diam: 3.0 cm LVIDd: 5.0 cm LA dimension: 5.7 cm LVIDs: 3.3 cm ACS: 1.3 cm LVPWd: 1.2 cm IVSs: 1.6 cm LVPWs: 1.1 cm EDV(Teich): 116.8 ml ESV(Lucioich): 44.7 ml LVOT diam: 2.0 cm Doppler Measurements & Calculations MV E max edgard: 193.5 cm/sec MVA(VTI): 0.95 cm2 MV A max edgard: 131.9 cm/sec MV V2 max: 205.4 cm/sec MV E/A: 1.5 MV max P.9 mmHg MV V2 mean: 114.5 cm/sec MV mean P.1 mmHg MV V2 VTI: 71.7 cm MV P1/2t max edgard: 202.6 cm/sec Ao V2 max: 199.9 cm/sec MV P1/2t: 184.1 msec Ao max P.0 mmHg Ao V2 mean: 139.4 cm/sec MVA(P1/2t): 1.2 cm2 Ao mean P.9 mmHg MV dec slope: 322.3 cm/sec2 Ao V2 VTI: 40.8 cm JOAN(I,D): 1.7 cm2 JOAN(V,D): 1.4 cm2 LV V1 max P.2 mmHg SV(LVOT): 68.0 ml LV V1 mean P.2 mmHg LV V1 max: 90.0 cm/sec LV V1 mean: 70.1 cm/sec LV V1 VTI: 21.7 cm Med Peak E' Edgard: 2.8 cm/sec Med E/e': 68.4 Lat Peak E' Edgard: 2.9 cm/sec Lat E/e': 66.2 Procedure A complete two-dimensional transthoracic echocardiogram was performed (2D, M-mode, Doppler and color flow Doppler). The study was technically difficult with many images being suboptimal in quality. Left Ventricle The left ventricular size, thickness and function are normal. The left ventricular ejection fraction is normal. Ejection Fraction = 60-65%. Regional wall motion abnormalities cannot be excluded due to limi christi visualization. Right Ventricle The right ventricle is grossly normal size. The right ventricular systolic function is grossly normal . Atria The left atrium is not well visualized. Right atrium not well visualized. Mitral Valve There is a mechanical mitral valve. There is no mitral regurgitation noted. Tricuspid Valve No tricuspid regurgitation. There was insufficient TR detected to calculate RV systolic pressure. Aortic Valve No hemodynamically significant valvular aortic stenosis. No aortic regurgitation is present. Pulmonic Valve The pulmonic valve is not well visualized. Great Vessels The aortic root is normal size. Pericardium/Pleura Small pericardial effusion (<1cm). There are no echocardiographic indications of cardiac tamponade. Interpretation Summary The study was technically difficult with many images being suboptimal in quality. The left ventricular size, thickness and function are normal The right ventricle is grossly normal size. The right ventricular systolic function is grossly normal. There is a mechanical mitral valve. Small pericardial effusion (<1cm) There are no echocardiographic indications of cardiac tamponade. MD Kenyon Loredo 02/06/2019 01:07 PM
--- NOTE | 2019-02-06 14:34 | PN ---
Progress Note, Physician Chief Complaint: patient seen and examined complaining of pain in right toe and right dorsum of foot cannot weight bear - Current Medication List Current Medications: Active Medications Acetaminophen (Tylenol -) 650 mg PO Q4H PRN PRN Reason: PAIN LEVEL 1-5 Acetaminophen/Codeine Phosphate (Tylenol # 3 -) 1 tab PO Q4H PRN PRN Reason: PAIN LEVEL 6-10 Last Admin: 02/06/19 08:22 Dose: 1 tab Albuterol/Ipratropium (Duoneb -) 1 amp NEB RQID PRN PRN Reason: SHORTNESS OF BREATH Atorvastatin Calcium (Lipitor -) 10 mg PO HS [facility] Last Admin: 02/05/19 22:03 Dose: 10 mg Carbidopa/Levodopa (Sinemet *Cr* 25/100 -) 1 combo PO TID [facility] Last Admin: 02/06/19 06:49 Dose: Not Given Citalopram Hydrobromide (Celexa -) 20 mg PO DAILY [facility] Last Admin: 02/05/19 10:09 Dose: 20 mg Enoxaparin Sodium (Lovenox -) 90 mg SQ BID [facility] Cefazolin Sodium (Ancef 1 Gm Premixed Ivpb -) 1 gm in 50 mls @ 100 mls/hr IVPB Q8H-IV [facility] Insulin Aspart (Novolog Vial Sliding Scale -) 1 vial SQ TIDAC [facility]; Protocol Last Admin: 02/06/19 11:14 Dose: Not Given Levothyroxine Sodium (Synthroid -) 25 mcg PO ACBK [facility] Last Admin: 02/06/19 06:49 Dose: Not Given Loratadine (Claritin -) 10 mg PO DAILY [facility] Last Admin: 02/05/19 10:10 Dose: 10 mg Pancrelipase (Creon Dr 36,000 Units Capsule) 1 cap PO TIDCM [facility] Last Admin: 02/06/19 11:13 Dose: Not Given Pramipexole Dihydrochloride (Mirapex -) 0.75 mg PO TID [facility] Last Admin: 02/06/19 06:49 Dose: Not Given Topiramate (Topamax -) 100 mg PO BID [facility] Last Admin: 02/05/19 22:03 Dose: 100 mg Torsemide (Demadex -) 100 mg PO DAILY [facility] Last Admin: 02/05/19 10:10 Dose: 100 mg Tramadol HCl (Ultram -) 50 mg PO DAILY [facility] Last Admin: 02/05/19 10:09 Dose: 50 mg Verapamil HCl (Calan Sr -) 240 mg PO DAILY [facility] Last Admin: 02/05/19 12:33 Dose: 240 mg Warfarin Sodium 5 mg/ Warfarin (Sodium 3 mg) 8 mg PO DAILY@1800 [facility] Last Admin: 02/05/19 18:47 Dose: 8 mg - Objective Vital Signs: Vital Signs Temperature 98.9 F 02/06/19 08:04 Pulse Rate 77 02/06/19 08:04 Respiratory Rate 20 02/06/19 08:04 Blood Pressure 137/52 L 02/06/19 08:04 O2 Sat by Pulse Oximetry (%) 98 02/06/19 07:53 Constitutional: Yes: Calm Cardiovascular: Yes: Regular Rate and Rhythm, S1, S2 Respiratory: Yes: CTA Bilaterally Gastrointestinal: Yes: Normal Bowel Sounds, Soft Extremities: Yes: Erythema, Other (right toe swollen and tender to touch the right dorsum of foot warm erythamotus and tender to touch) Edema: Yes Labs: CBC, BMP 02/05/19 05:48 02/05/19 05:48 INR, PTT INR 1.90 (0.83-1.09) H 02/06/19 06:05 Problem List - Problems (1) Cellulitis Assessment/Plan: iv abx toe pain check uric acid podaity consult Code(s): L03.90 - CELLULITIS, UNSPECIFIED Qualifiers: Site of cellulitis of extremity: lower extremity Laterality: left (2) Atypical chest pain Assessment/Plan: echo done today normal left ventricle thickness and function stress test done today awaiting results cadriology on board Code(s): R07.89 - OTHER CHEST PAIN (3) Mitral valve replaced Assessment/Plan: INR 2.5 - 3.5 range lovenox to Coumadin bridging Code(s): Z95.2 - PRESENCE OF PROSTHETIC HEART VALVE (4) Diabetes Assessment/Plan: inslin [id number] 7.5 Code(s): E11.9 - TYPE 2 DIABETES MELLITUS WITHOUT COMPLICATIONS Qualifiers: Diabetes mellitus type: type 2 Diabetes mellitus complication status: with neurologic complications (5) Hypothyroid Assessment/Plan: synthroid check TSH Code(s): E03.9 - HYPOTHYROIDISM, UNSPECIFIED (6) Parkinson disease Assessment/Plan: sinement Code(s): G20 - PARKINSON'S DISEASE
[2019-02-06] MEDS ORDERED: predniSONE 10 MG TABLET (UD) PO ONE (14:45)
[2019-02-06] MEDS ORDERED: ceFAZolin SODIUM 1 GM VIAL ONE (14:50)
[2019-02-06] MEDS ORDERED: DEXTROSE 5%-WATER - 50 ML IVPB ONE (14:50)
[2019-02-06] MEDS: ENOXAPARIN NA (PORCINE) 100 MG/1 ML DISP.SYRIN SQ SCH ×2 (14:52→22:31)
[2019-02-06] MEDS: TOPIRAMATE 100 MG TABLET PO SCH ×2 (14:53→22:33)
[2019-02-06] MEDS ORDERED: PT OWN MED DRAWER 7, Y5N ONE (14:56)
[2019-02-06] MEDS: CEFAZOLIN 1 GM in DEXTROSE 5%-WATER - 50 ML IVPB SCH (15:02)
[2019-02-06] MEDS: CITALOPRAM HYDROBROMIDE 20 MG TABLET (FP) PO SCH (15:03)
[2019-02-06] MEDS: TORSEMIDE 100 MG TABLET PO SCH (15:03)
[2019-02-06] MEDS: traMADol HCL 50 MG TABLET PO SCH (15:04)
[2019-02-06] MEDS: LORATADINE 10 MG TABLET PO SCH (15:07)
[2019-02-06] MEDS: VERAPAMIL HCL 240 MG E.R. TABLET PO SCH (15:07)
--- NOTE | 2019-02-06 16:14 | CONSULT ---
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: Yes: CVA Cardio/Vascular: Yes: AFIB, CAD, CHF, HTN, Hyperlipdemia, Other (S/P [facility] mitral valve replacement) Pulmonary: Yes: Asthma, COPD, Sleep Apnea (on CPAP at night) Gastrointestinal: Yes: Constipation, Diverticulosis, GI Bleed, Hemorrhoids Musculoskeletal: Yes: Chronic low back pain, Other (Spinal stenosis) Rheumatology: Yes: Fibromyalgia, Lupus, Other (APLAS (BOTH LUPUS AND APLS ARE QUESTIONABLE)) Endocrine: Yes: Diabetes Mellitus Additional Medical History: morbid obesity - Past Surgical History Past Surgical History: Yes: CABG, Cholecystectomy, Hysterectomy, Oopherectomy, Valve Replacement - Alcohol/Substance Use Hx Alcohol Use: No History of Substance Use: reports: None - Smoking History Smoking history: Never smoked Have you smoked in the past 12 months: No Aproximately how many cigarettes per day: 0 If you are a former smoker, when did you quit?: many years - Social History Usual Living Arrangement: With Spouse ADL: Independent History of Recent Travel: No Home Medications - Allergies Allergies/Adverse Reactions: Allergies Allergy/AdvReac Type Severity Reaction Status Date / Time lactose Allergy Mild Verified 02/04/19 18:02 Beta-Blockers Allergy Verified 02/04/19 18:02 (Beta-Adrenergic Bloc Fish Containing Products Allergy Verified 02/04/19 18:02 fish derived Allergy Verified 02/04/19 18:02 Iodinated Contrast Media Allergy Verified 02/04/19 18:02 [IV Dye, Iodine Containing Contrast ] shellfish derived Allergy Verified 02/04/19 18:02 Yayrtft-Sjn-Irx Reductase AdvReac Intermediate Verified 02/04/19 18:02 Inhibitor gabapentin AdvReac Verified 02/05/19 18:21 - Home Medications Home Medications: Ambulatory Orders Atorvastatin Ca [Lipitor] 10 mg PO HS 09/11/18 Levothyroxine [Synthroid -] 25 mcg PO DAILY 09/11/18 Lipase/Protease/Amylase [Creon Dr 36,000 Units Capsule] 1 cap PO DAILY 09/11/18 Torsemide 100 mg PO DAILY 09/11/18 Tramadol HCl [Ultram] 50 mg PO DAILY 09/11/18 Pramipexole Dihydrochloride 0.75 mg PO QID 09/14/18 Carbidopa/Levodopa *Cr* 25/100 [Sinemet *Cr* 25/100 -] 1 combo PO TID tablet.er 09/18/18 Citalopram Hydrobromide [Celexa -] 20 mg PO DAILY tablet 09/18/18 Potassium Chloride [K-Dur -] 40 meq PO DAILY tablet.er 09/18/18 Pramipexole Dihydrochloride [Mirapex -] 0.75 mg PO TID tablet 09/18/18 Topiramate [Topamax -] 100 mg PO BID tablet 09/18/18 Verapamil HCl ER [Calan Sr -] 240 mg PO DAILY tablet.er 09/18/18 Acetaminophen W/ Codeine #3 [Tylenol # 3 -] 1 - 2 tab PO Q4H 02/04/19 Cetirizine HCl [Zyrtec -] 20 mg PO BID 02/04/19 Insulin Glulisine [Apidra] 100 unit SQ BIDAC 02/04/19 Warfarin Sodium [Coumadin] 8 mg PO HS 02/04/19 Warfarin Sodium [Coumadin] 10 mg PO HS 02/04/19 Physical Exam Vital Signs: Vital Signs Temperature 98.4 F 02/06/19 15:32 Pulse Rate 71 02/06/19 15:32 Respiratory Rate 20 02/06/19 15:32 Blood Pressure 130/44 L 02/06/19 15:32 O2 Sat by Pulse Oximetry (%) 98 02/06/19 07:53 Extremities: Yes: Erythema, Other (edema b/l, +pigmented lesions left foot and lower leg, -drainage, blistering with fluid noted internally,+tender to palpation,) Labs: CBC, BMP 02/05/19 05:48 02/05/19 05:48 Assessment/Plan Kaposi's sarcoma? Majocchi Granuloma? Blistering with pigmentation unilateral left extremity Edema Pain Arthralgia Biopsy to be done of lesion for identification. Recommend dermatology consult. Will follow.
[2019-02-06] MEDS ORDERED: WARFARIN NA 5 MG TABLET (UD) ONE (18:41)
[2019-02-06] MEDS ORDERED: WARFARIN NA 3 MG TABLET ONE (18:42)
[2019-02-06] MEDS: WARFARIN NA 5 MG, WARFARIN NA 3 MG PO SCH (18:43)
--- NOTE | 2019-02-06 18:57 | CONS ---
DATE OF CONSULTATION: 02/06/2019 REFERRING PHYSICIAN: Tucker Toussaint MD HISTORY OF PRESENT ILLNESS: The patient is a 68-year-old woman with past medical history which is extensive and includes lumbar canal stenosis as well as diabetes, SLE, fibromyalgia, coronary artery disease and mitral valve replacement, on warfarin due to the mechanical nature who is admitted with 2 weeks or so of difficulty walking as well as left foot pain with bullous rash, diarrhea, shortness of breath. Patient underwent chest x-ray on admission on February 04, which showed increased heart size, valve replacement was noted, congestive changes. Bloodwork on February 04: WBCs 10.7, hemoglobin 12.4, platelet count 299. Patient's chemistry demonstrated sodium 140, potassium 3.5, chloride 109, BUN 16, creatinine 1.1. INR was therapeutic at 2.58 on admission. Estimated GFR low, 51.91. Troponins were less than 0.02. Repeat chemistry on February 05 was stable and repeat INR was 2.35 and therapeutic. CBC showed WBCs 9.3 hemoglobin 11.7, platelet count 287. Patient started on Valtrex and IV antibiotics. She is on Lovenox in addition to the warfarin, at least per the medical record. The patient is on pain medication, but is started to note swelling in the right lower extremity with pain in the distal aspect and electrical sensation in both lower extremities. She is unable to stand or put weight into the lower extremities, but is working with physical therapy, mainly with exercise. Patient also continues to complain of diarrhea, lightheadedness, and dizziness. She is now seen for rehabilitation evaluation. REVIEW OF PAST MEDICAL AND SURGICAL HISTORY: As above. Also, COPD, obstructive sleep apnea syndrome, atrial fibrillation, congestive heart failure. SOCIAL HISTORY: She lives in a private house. She has an aide. She states she has no stairs at home. Ambulates with a rolling walker due to her underlying back condition with canal stenosis. CURRENT FUNCTION: Unable to stand or ambulate; mainly moving around in bed and sitting up in bed. REVIEW OF SYSTEMS: Again, she is quite lightheaded at times. No blurry vision, double-vision. No nausea, vomiting, difficulty swallowing or chewing. She does get short of breath and dyspneic with exertion. No chest pain, no abdominal pain, but diarrhea. Electrical sensation, swelling in both lower limbs; rash in the left lower limb. No numbness, tingling in the upper extremities. She does experience back pain. PHYSICAL EXAMINATION: General: [id number] woman seen sitting at the edge of the bed. She is anxious and frustrated, but in no acute distress. HEENT: She is normocephalic, atraumatic. Extraocular muscles appear intact. Neck: Supple. Extremities: Without any calf tenderness, but she does have swelling distally in the left more than right lower limb with a bullous rash noted in the left foot and ankle. There is some slight erythema distally in both lower extremities and they are quite sensitive to touch, but no calf tenderness up higher. Neuromuscular: She is awake, alert, oriented x3. Cranial nerves II through XII grossly intact. She has good range of motion, strength in the upper extremities. Her distal lower extremity strength is limited by pain, especially in dorsiflexion, plantarflexion; better knee flexion, extension and hip girdle strength. Normal sensation to light touch. Symmetric reflexes. She is not able to stand or ambulate due to pain and swelling in the lower extremities. OVERALL IMPRESSION: 1. Deficits in mobility, activities of daily living; multifactorial. 2. Bilateral lower extremity swelling, left more than right, with bullous rash; uncertain etiology. 3. Diarrhea. 4. Shortness of breath. 5. History of lumbar canal stenosis with neurogenic claudication. 6. History of mechanical mitral valve replacement. 7. Atrial fibrillation, currently on warfarin. 8. Diabetes, probable underlying diabetic peripheral neuropathy. 9. Systemic lupus erythematosus. 10. Fibromyalgia. 11. Coronary artery disease, status post bypass. 12. Elevated hemoglobin A1c of 7.5. PLAN/SUGGEST: 1. Patient will need dermatologic evaluation, possibly biopsy. 2. Would hold any out-of-bed activities until swelling and pain are controlled. 3. Reviewed exercise to be done at the bedside. 4. IV antibiotics. 5. Anticoagulation. Currently on warfarin; no further DVT prophylaxis needed. If on Lovenox, would discontinue. 6. Pain control. 7. Consider pain management. 8. May need short-term rehabilitation while recuperating. 9. Skin precautions. 10. Will follow. Thank you for this referral. MIRELA FRAIRE M.D. BALJINDER/[id number]
[2019-02-06] MEDS: ATORVASTATIN CA 10 MG TABLET (FP) PO SCH (22:31)
[2019-02-07] MEDS ORDERED: ceFAZolin SODIUM 1 GM VIAL ONE ×3 (01:04→17:44)
[2019-02-07] MEDS ORDERED: DEXTROSE 5%-WATER - 50 ML IVPB ONE ×3 (01:04→17:44)
[2019-02-07] MEDS: CEFAZOLIN 1 GM in DEXTROSE 5%-WATER - 50 ML IVPB SCH ×3 (01:10→17:49)
[2019-02-07] MEDS: PRAMIPEXOLE DIHYDROCHLORIDE 0.25 MG TABLET PO SCH ×3 (06:39→22:37)
[2019-02-07] MEDS: INSULIN SLIDING SCALE (NOVOLOG) 1 VIAL SQ SCH ×3 (06:39→17:59)
[2019-02-07] MEDS: LEVOTHYROXINE NA 25 MCG TABLET (FP) PO SCH (06:39)
[2019-02-07 07:00] LABS: INR 2.05 (0.83-1.09); PROTHROMBIN TIME (PATIENT) 24.4 SEC (9.7-13.0)
[2019-02-07] MEDS ORDERED: PT OWN MED DRAWER 7, Y5N ONE ×4 (09:20→22:10)
[2019-02-07] MEDS: traMADol HCL 50 MG TABLET PO SCH (09:40)
[2019-02-07] MEDS: TORSEMIDE 100 MG TABLET PO SCH (09:40)
[2019-02-07] MEDS: TOPIRAMATE 100 MG TABLET PO SCH ×2 (09:41→22:37)
[2019-02-07] MEDS: CITALOPRAM HYDROBROMIDE 20 MG TABLET (FP) PO SCH (09:42)
[2019-02-07] MEDS: LORATADINE 10 MG TABLET PO SCH (09:42)
[2019-02-07] MEDS: VERAPAMIL HCL 240 MG E.R. TABLET PO SCH (09:43)
[2019-02-07] MEDS: LIPASE/PROTEASE/AMYLASE 36,000 UNIT CAPSULE PO SCH ×3 (09:43→17:49)
--- NOTE | 2019-02-07 10:42 | PN ---
Progress Note, Physician Chief Complaint: Echo small pericardial effusion Nuclear stress: Mild apical ischemia History of Present Illness: TELE: NSR - Current Medication List Current Medications: Active Medications Acetaminophen (Tylenol -) 650 mg PO Q4H PRN PRN Reason: PAIN LEVEL 1-5 Acetaminophen/Codeine Phosphate (Tylenol # 3 -) 1 tab PO Q4H PRN PRN Reason: PAIN LEVEL 6-10 Last Admin: 02/06/19 22:31 Dose: 1 tab Albuterol/Ipratropium (Duoneb -) 1 amp NEB RQID PRN PRN Reason: SHORTNESS OF BREATH Atorvastatin Calcium (Lipitor -) 10 mg PO HS [facility] Last Admin: 02/06/19 22:31 Dose: 10 mg Carbidopa/Levodopa (Sinemet *Cr* 25/100 -) 1 combo PO TID [facility] Last Admin: 02/07/19 06:39 Dose: 1 combo Citalopram Hydrobromide (Celexa -) 20 mg PO DAILY [facility] Last Admin: 02/07/19 09:42 Dose: 20 mg Enoxaparin Sodium (Lovenox -) 90 mg SQ BID [facility] Last Admin: 02/06/19 22:31 Dose: 90 mg Cefazolin Sodium 1 gm/ (Dextrose) 50 mls @ 100 mls/hr IVPB Q8H-IV [facility] Last Admin: 02/07/19 09:39 Dose: 100 mls/hr Insulin Aspart (Novolog Vial Sliding Scale -) 1 vial SQ TIDAC [facility]; Protocol Last Admin: 02/07/19 06:39 Dose: Not Given Levothyroxine Sodium (Synthroid -) 25 mcg PO ACBK [facility] Last Admin: 02/07/19 06:39 Dose: 25 mcg Loratadine (Claritin -) 10 mg PO DAILY [facility] Last Admin: 02/07/19 09:42 Dose: 10 mg Pancrelipase (Creon Dr 36,000 Units Capsule) 1 cap PO TIDCM [facility] Last Admin: 02/07/19 09:43 Dose: 1 cap Pramipexole Dihydrochloride (Mirapex -) 0.75 mg PO TID [facility] Last Admin: 02/07/19 06:39 Dose: 0.75 mg Topiramate (Topamax -) 100 mg PO BID [facility] Last Admin: 02/07/19 09:41 Dose: 100 mg Torsemide (Demadex -) 100 mg PO DAILY [facility] Last Admin: 02/07/19 09:40 Dose: 100 mg Tramadol HCl (Ultram -) 50 mg PO DAILY [facility] Last Admin: 02/07/19 09:40 Dose: 50 mg Verapamil HCl (Calan Sr -) 240 mg PO DAILY [facility] Last Admin: 02/07/19 09:43 Dose: 240 mg Warfarin Sodium 5 mg/ Warfarin (Sodium 3 mg) 8 mg PO DAILY@1800 [facility] Last Admin: 02/06/19 18:43 Dose: 8 mg - Objective Vital Signs: Vital Signs Temperature 97.5 F L 02/07/19 05:50 Pulse Rate 58 L 02/07/19 10:00 Respiratory Rate 20 02/07/19 10:00 Blood Pressure 115/52 L 02/07/19 10:00 O2 Sat by Pulse Oximetry (%) 98 02/06/19 21:00 Constitutional: Yes: No Distress Cardiovascular: Yes: Regular Rate and Rhythm Respiratory: Yes: Rhonchi Gastrointestinal: Yes: Soft (NT) Edema: Yes Edema: LLE: 1+, RLE: 1+ Neurological: Yes: Alert Labs: CBC, BMP 02/05/19 05:48 02/05/19 05:48 INR, PTT INR 2.05 (0.83-1.09) H 02/07/19 05:40 - ....Imaging EKG: Image Reviewed Assessment/Plan tele: sr a/p: 68 year old lady with past medical history of COPD on home , FIGUEROA (on cpap at home), CAD (s/p single vessel CABG 2006 with RUSSELL to OM and ROSALINA x2 to LAD 12/2011; last cath 06/2014 showed patent RUSSELL, patent LAD stents, no sig residual dz except for 80-90% OM that is bypassed), [facility] ([facility], [facility], on coumadin), anemia, TIA, dCHF, DM, HTN, pafib, antiphospholipid syndrome (on coumadin), fibromyalgia, migraines, chronic atypical cp, obesity, LBP here with blisters on foot. foot blisters: -derm eval pending Atyp CP: -chronic recurrent sx for the pt -MSK features, reproducible on exam--sec to severe coughing fits, +/- fibromyalgia -NST for this cp in 12/2013 and 04/2016 showed no ischemia and prior cath for this persistent cp 06/2014 showed patent graft and prior pci, no significant residual dz -Now with 2 potential sources for this discomfort: pericardial effusion on Echo and mild ischemia on stress. Based on history, the symptoms do seem ATYPICAL for CAD. 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 Loredo to finalize plan of care cad, s/p cabg, pci: -as above -no signs acs -normal lvef -no bb due to copd, on verapamil instead -not on statin due to prior intolerance -given her epistaxis asa stopped as she is on ac. dizziness: -pt c/o some dizziness at times (not positional, occurs even when laying down still in bed). Persisted even with holding ranexa so not side effect related. Recent holter and echo unremarkable. Continued outpt f/u with neuro, ent. [facility] MVR: -on AC w/ coumadin, target INR 2.5 to 3.5. -recent echo with normal [facility] mvr function HTN: Remains controlled on current meds. pafib: -rare episodes in past -remains in sr -continue verapamil -cont ac with coumadin, has hx of TIA chronic HFpEF: -vol status has been stable on torsemide
--- NOTE | 2019-02-07 12:05 | PN ---
Progress Note (short form) - Note Progress Note: PULMONARY CONSULTATION DICTATED 02/07/19 IMP DYSPNEA ? CARDIAC CP ? 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 INR BNP DR IVERSON Problem List - Problems (1) Atypical chest pain Code(s): R07.89 - OTHER CHEST PAIN (2) Blister (nonthermal), left foot, initial encounter Code(s): S90.822A - BLISTER (NONTHERMAL), LEFT FOOT, INITIAL ENCOUNTER (3) Hypothyroid Code(s): E03.9 - HYPOTHYROIDISM, UNSPECIFIED (4) Abdominal pain, vomiting, and diarrhea Code(s): R10.9 - UNSPECIFIED ABDOMINAL PAIN; R11.10 - VOMITING, UNSPECIFIED; R19.7 - DIARRHEA, UNSPECIFIED (5) Afib Code(s): I48.91 - UNSPECIFIED ATRIAL FIBRILLATION Qualifiers: Atrial fibrillation type: paroxysmal Qualified Code(s): I48.0 - Paroxysmal atrial fibrillation (6) Anticoagulated Code(s): Z79.01 - DELIVERY COORDINATOR (CURRENT) USE OF ANTICOAGULANTS (7) Asthma with COPD Code(s): J44.9 - CHRONIC OBSTRUCTIVE PULMONARY DISEASE, UNSPECIFIED (8) CAD (coronary artery disease) Code(s): I25.10 - ATHSCL HEART DISEASE OF [place] CORONARY ARTERY W/O ANG PCTRS (9) CHF (congestive heart failure) Code(s): I50.9 - HEART FAILURE, UNSPECIFIED (10) Controlled diabetes mellitus with diabetic peripheral angiopathy without gangrene, with long-term current use of insulin Code(s): E11.51 - TYPE 2 DIABETES W DIABETIC PERIPHERAL ANGIOPATH W/O GANGRENE; Z79.4 - MCFP (CURRENT) USE OF INSULIN (11) Diarrhea Code(s): R19.7 - DIARRHEA, UNSPECIFIED (12) Dyslipidemia Code(s): E78.5 - HYPERLIPIDEMIA, UNSPECIFIED (13) Fibromyalgia Code(s): M79.7 - FIBROMYALGIA (14) IDDM (insulin dependent diabetes mellitus) Code(s): E11.9 - TYPE 2 DIABETES MELLITUS WITHOUT COMPLICATIONS; Z79.4 - MCFP (CURRENT) USE OF INSULIN (15) Mitral valve replaced Code(s): Z95.2 - PRESENCE OF PROSTHETIC HEART VALVE (16) FIGUEROA (obstructive sleep apnea) Code(s): G47.33 - OBSTRUCTIVE SLEEP APNEA (ADULT) (PEDIATRIC) (17) Obesities, morbid Code(s): E66.01 - MORBID (SEVERE) OBESITY DUE TO EXCESS CALORIES (18) SOB (shortness of breath) Code(s): R06.02 - SHORTNESS OF BREATH (19) Skin rash Code(s): R21 - RASH AND OTHER NONSPECIFIC SKIN ERUPTION (20) Sleep apnea Code(s): G47.30 - SLEEP APNEA, UNSPECIFIED
[2019-02-07 13:12] LABS: BASO % 0.9 % (0-2.0); HEMATOCRIT 36.3 % (32.4-45.2); HEMOGLOBIN 11.8 GM/dL (10.7-15.3); LYMPH % 11.7 % (8-40); MCH 27.9 pg (25.7-33.7); MCHC 32.5 g/dl (32.0-36.0); MEAN CELL VOLUME 85.7 fl (80-96); MEAN PLT VOLUME 9.8 fl (7.5-11.1); MONO % 6.4 % (3.8-10.2); PLATELET COUNT 294 K/MM3 (134-434); RBC 4.24 M/mm3 (3.60-5.2); RDW 15.5 % (11.6-15.6); WHITE BLOOD COUNT 11.6 K/mm3 (4.0-10.0)
[2019-02-07] MEDS: ENOXAPARIN NA (PORCINE) 100 MG/1 ML DISP.SYRIN SQ SCH ×2 (13:15→22:37)
--- NOTE | 2019-02-07 13:20 | PN ---
Progress Note, Physician Chief Complaint: Pigmented lesions left foot. Pain both feet. Pain slightly improved b/l. - Current Medication List Current Medications: Active Medications Acetaminophen (Tylenol -) 650 mg PO Q4H PRN PRN Reason: PAIN LEVEL 1-5 Acetaminophen/Codeine Phosphate (Tylenol # 3 -) 1 tab PO Q4H PRN PRN Reason: PAIN LEVEL 6-10 Last Admin: 02/06/19 22:31 Dose: 1 tab Albuterol/Ipratropium (Duoneb -) 1 amp NEB RQID PRN PRN Reason: SHORTNESS OF BREATH Atorvastatin Calcium (Lipitor -) 10 mg PO HS [facility] Last Admin: 02/06/19 22:31 Dose: 10 mg Carbidopa/Levodopa (Sinemet *Cr* 25/100 -) 1 combo PO TID [facility] Last Admin: 02/07/19 13:16 Dose: 1 combo Citalopram Hydrobromide (Celexa -) 20 mg PO DAILY [facility] Last Admin: 02/07/19 09:42 Dose: 20 mg Enoxaparin Sodium (Lovenox -) 90 mg SQ BID [facility] Last Admin: 02/07/19 13:15 Dose: 90 mg Cefazolin Sodium 1 gm/ (Dextrose) 50 mls @ 100 mls/hr IVPB Q8H-IV [facility] Last Admin: 02/07/19 09:39 Dose: 100 mls/hr Insulin Aspart (Novolog Vial Sliding Scale -) 1 vial SQ TIDAC [facility]; Protocol Last Admin: 02/07/19 12:49 Dose: Not Given Levothyroxine Sodium (Synthroid -) 25 mcg PO ACBK [facility] Last Admin: 02/07/19 06:39 Dose: 25 mcg Loratadine (Claritin -) 10 mg PO DAILY [facility] Last Admin: 02/07/19 09:42 Dose: 10 mg Pancrelipase (Creon Dr 36,000 Units Capsule) 1 cap PO TIDCM [facility] Last Admin: 02/07/19 12:46 Dose: 1 cap Pramipexole Dihydrochloride (Mirapex -) 0.75 mg PO TID [facility] Last Admin: 02/07/19 13:16 Dose: 0.75 mg Topiramate (Topamax -) 100 mg PO BID [facility] Last Admin: 02/07/19 09:41 Dose: 100 mg Torsemide (Demadex -) 100 mg PO DAILY [facility] Last Admin: 02/07/19 09:40 Dose: 100 mg Tramadol HCl (Ultram -) 50 mg PO DAILY [facility] Last Admin: 02/07/19 09:40 Dose: 50 mg Verapamil HCl (Calan Sr -) 240 mg PO DAILY [facility] Last Admin: 02/07/19 09:43 Dose: 240 mg Warfarin Sodium 5 mg/ Warfarin (Sodium 3 mg) 8 mg PO DAILY@1800 [facility] Last Admin: 02/06/19 18:43 Dose: 8 mg - Objective Vital Signs: Vital Signs Temperature 97.5 F L 02/07/19 05:50 Pulse Rate 58 L 02/07/19 10:00 Respiratory Rate 20 02/07/19 10:00 Blood Pressure 115/52 L 02/07/19 10:00 O2 Sat by Pulse Oximetry (%) 98 02/06/19 21:00 Extremities: Yes: Other (+tender b/l feet, +arthralgia, unchanged appearance of lesions) Labs: CBC, BMP 02/07/19 05:40 INR, PTT INR 2.05 (0.83-1.09) H 02/07/19 05:40 Assessment/Plan Kaposi's sarcoma? Majocchi Granuloma? Blistering with pigmentation unilateral left extremity Edema Pain Arthralgia Biopsy to be done of lesion for identification. Dermatology does not come to hospital. Will attempt punch or partial excision biopsy of foot need to get proper instrumentation in hospital. Will follow.
[2019-02-07 13:40] LABS: ALBUMIN 3.4 g/dl (3.4-5.0); BILIRUBIN,TOTAL 0.3 mg/dL (0.2-1); CALCIUM 8.5 mg/dL (8.5-10.1); CREATININE 1.2 mg/dL (0.55-1.3); POTASSIUM 3.5 mmol/L (3.5-5.1); TOT PROT 6.8 g/dl (6.4-8.2)
[2019-02-07 14:43] LABS: ANISOCYTOSIS 0; MACROCYTOSIS 0; PLATELET ESTIMATE NORMAL
--- NOTE | 2019-02-07 14:49 | CONS ---
PULMONARY CONSULTATION DATE OF CONSULTATION: 02/07/2019 REFERRING PHYSICIAN: Tucker Toussaint MD HISTORY OF PRESENT ILLNESS: The patient is a 68-year-old, female well known to me from previous hospitalization, as well as office followup, with extensive past medical history which includes ASHD, status post coronary artery bypass graft in 2006, status post mitral valve replacement with mechanical valve in 2006, COPD, asthma, obstructive sleep apnea on CPAP, atrial fibrillation, also status post stents in 2014, congestive heart failure, hypertension, hyperlipidemia, spinal stenosis , fibromyalgia, SLE, history of DVT, antiphospholipid syndrome maintained on Coumadin, admitted to [facility] with complaint of a few-week history of increasing shortness of breath, dyspnea on exertion, chest discomfort, and tender, purple bulla on the left dorsal foot. Patient denies any recent insect bites or any trauma. She was placed on antibiotics without any improvement. She presented to the emergency room with the above. In the ER, she was also complaining of some diarrhea and abdominal discomfort. On admission, she was evaluated by Cardiology. She underwent a myocardial perfusion scan which revealed a normal exercise portion, but mild apical ischemia. She also had an echo which revealed a pericardial effusion. It is unknown whether or not the chest pain is secondary to pericardial effusion and/or ischemia or atypical. Patient is a nonsmoker. There is no history of occupational exposure to chemicals or fumes. PAST MEDICAL HISTORY: Again includes COPD; asthma, maintained on home O2 intermittently; obstructive sleep apnea, on CPAP; ASHD, status post CABG in 2006 , status post drug-eluting stent in 2011, as well as status post mitral valve replacement in 2006; TIA; anemia; diastolic heart failure; hypertension; diabetes; antiphospholipid syndrome; lupus; fibromyalgia; migraines; chronic atypical chest pain; obesity. REVIEW OF SYSTEMS: Positive dyspnea. Positive orthopnea. Positive chest pain. No fever. No chills. No hemoptysis. Positive diarrhea. Positive skin rash. CURRENT MEDICATIONS: Include Tylenol, cefazolin, Lovenox, Coumadin, Topamax, Celexa, DuoNeb, Calan, Sinemet, Mirapex, Lipitor, Demadex, Tylenol 3, Ultram, and Synthroid. PHYSICAL EXAMINATION: General: The patient is a well-developed, well-nourished female, awake, alert, in no acute distress. Vital Signs: She is afebrile, blood pressure 115/52, respiratory rate 20, O2 saturation is 98% on 3 L. HEENT: Exam is normocephalic, atraumatic. Neck: Supple. Heart: Regular S1 and S2. Chest: A few scattered wheezes. Abdomen: Soft. Bowel sounds are positive. Extremities: Bilateral lower extremity edema is noted. Skin: A rash on dorsal aspect of left foot. LABORATORIES: WBC is 9.3, hemoglobin 11.7, hematocrit 35.7 with a platelet count of 287,000. Venous blood gas: 7.35, PCO2 of 43, a PO2 of less than 49, bicarbonate of 23, and a saturation of 81. INR is 2.05. Chemistries: BUN is 15, creatinine 1.0. Chest x-ray revealed cardiomegaly with mild congestion. IMPRESSION: 1. Dyspnea. Possible cardiac. Rule out secondary to asthma, chronic obstructive pulmonary disease. 2. Chest pain. Rule out cardiac. Patient was noted to have positive ischemia on nuclear stress, also pericardial effusion. 3. Asthma, chronic obstructive pulmonary disease with hypoxemia. 4. Status post mitral valve replacement. 5. Atherosclerotic heart disease. Status post coronary artery bypass graft. Status post drug-eluting stent. 6. SLE. 7. Obstructive sleep apnea. On continuous positive-airway pressure. 8. History of DVT, history of transient ischemic attack. 9. Antiphospholipid syndrome. On Coumadin. 10. Hypertension. 11. Hyperlipidemia. 12. Lower extremity blister. Etiology to be determined. 13. Fibromyalgia. PLAN: Supplemental O2 as needed. Inhaled bronchodilators. Further cardiac workup as per Cardiology. Dermatology evaluation. CPAP at night. Monitor INR. Check serum BMP. DANYEL IVERSON M.D. ARELY/[id number] MTDD
[2019-02-07] MEDS ORDERED: predniSONE 20 MG TABLET (UD) PO ONE (15:23)
--- NOTE | 2019-02-07 15:26 | PN ---
Progress Note, Physician Chief Complaint: patient seen and examined right foot swelling and pain much improved - Current Medication List Current Medications: Active Medications Acetaminophen (Tylenol -) 650 mg PO Q4H PRN PRN Reason: PAIN LEVEL 1-5 Acetaminophen/Codeine Phosphate (Tylenol # 3 -) 1 tab PO Q4H PRN PRN Reason: PAIN LEVEL 6-10 Last Admin: 02/06/19 22:31 Dose: 1 tab Albuterol/Ipratropium (Duoneb -) 1 amp NEB RQID PRN PRN Reason: SHORTNESS OF BREATH Atorvastatin Calcium (Lipitor -) 10 mg PO HS [facility] Last Admin: 02/06/19 22:31 Dose: 10 mg Carbidopa/Levodopa (Sinemet *Cr* 25/100 -) 1 combo PO TID [facility] Last Admin: 02/07/19 13:16 Dose: 1 combo Citalopram Hydrobromide (Celexa -) 20 mg PO DAILY [facility] Last Admin: 02/07/19 09:42 Dose: 20 mg Enoxaparin Sodium (Lovenox -) 90 mg SQ BID [facility] Last Admin: 02/07/19 13:15 Dose: 90 mg Cefazolin Sodium 1 gm/ (Dextrose) 50 mls @ 100 mls/hr IVPB Q8H-IV [facility] Last Admin: 02/07/19 09:39 Dose: 100 mls/hr Insulin Aspart (Novolog Vial Sliding Scale -) 1 vial SQ TIDAC [facility]; Protocol Last Admin: 02/07/19 12:49 Dose: Not Given Levothyroxine Sodium (Synthroid -) 25 mcg PO ACBK [facility] Last Admin: 02/07/19 06:39 Dose: 25 mcg Loratadine (Claritin -) 10 mg PO DAILY [facility] Last Admin: 02/07/19 09:42 Dose: 10 mg Pancrelipase (Creon Dr 36,000 Units Capsule) 1 cap PO TIDCM [facility] Last Admin: 02/07/19 12:46 Dose: 1 cap Pramipexole Dihydrochloride (Mirapex -) 0.75 mg PO TID [facility] Last Admin: 02/07/19 13:16 Dose: 0.75 mg Topiramate (Topamax -) 100 mg PO BID [facility] Last Admin: 02/07/19 09:41 Dose: 100 mg Torsemide (Demadex -) 100 mg PO DAILY [facility] Last Admin: 02/07/19 09:40 Dose: 100 mg Tramadol HCl (Ultram -) 50 mg PO DAILY [facility] Last Admin: 02/07/19 09:40 Dose: 50 mg Verapamil HCl (Calan Sr -) 240 mg PO DAILY [facility] Last Admin: 02/07/19 09:43 Dose: 240 mg Warfarin Sodium 5 mg/ Warfarin (Sodium 3 mg) 8 mg PO DAILY@1800 [facility] Last Admin: 02/06/19 18:43 Dose: 8 mg - Objective Vital Signs: Vital Signs Temperature 98.5 F 02/07/19 14:00 Pulse Rate 72 02/07/19 14:00 Respiratory Rate 20 02/07/19 14:00 Blood Pressure 152/71 02/07/19 14:00 O2 Sat by Pulse Oximetry (%) 99 02/07/19 09:00 Constitutional: Yes: Calm Cardiovascular: Yes: Regular Rate and Rhythm, S1, S2 Respiratory: Yes: CTA Bilaterally Gastrointestinal: Yes: Normal Bowel Sounds, Soft Extremities: Yes: Erythema (improved), Other (right foot swelling reduced left foot lesion) Labs: CBC, BMP 02/07/19 05:40 02/07/19 05:40 INR, PTT INR 2.05 (0.83-1.09) H 02/07/19 05:40 Problem List - Problems (1) Cellulitis Assessment/Plan: iv abx ancef uric acid normal podaity consult note to do biopsy of left foot lesion [facility] derm has not come to see patient short course of steroids for foot swelling Code(s): L03.90 - CELLULITIS, UNSPECIFIED Qualifiers: Site of cellulitis of extremity: lower extremity Laterality: left (2) Atypical chest pain Assessment/Plan: echo done today normal left ventricle thickness and function stress test normal scan mild apical ischemia cardiology on board Code(s): R07.89 - OTHER CHEST PAIN (3) Mitral valve replaced Assessment/Plan: INR 2.5 - 3.5 range stil subtheraperutic lovenox to Coumadin bridging Code(s): Z95.2 - PRESENCE OF PROSTHETIC HEART VALVE (4) Diabetes Assessment/Plan: inslin hgba1c 7.5 Code(s): E11.9 - TYPE 2 DIABETES MELLITUS WITHOUT COMPLICATIONS Qualifiers: Diabetes mellitus type: type 2 Diabetes mellitus complication status: with neurologic complications (5) Hypothyroid Assessment/Plan: synthroid check TSH Code(s): E03.9 - HYPOTHYROIDISM, UNSPECIFIED (6) Parkinson disease Code(s): G20 - PARKINSON'S DISEASE
[2019-02-07] MEDS ORDERED: WARFARIN NA 5 MG TABLET (UD) ONE (17:43)
[2019-02-07] MEDS ORDERED: WARFARIN NA 3 MG TABLET ONE (17:43)
[2019-02-07] MEDS: WARFARIN NA 5 MG, WARFARIN NA 3 MG PO SCH (17:49)
[2019-02-07] MEDS: ACETAMINOPHEN WITH CODEINE 300MG/30MG TABLET PO PRN ×2 (17:51→22:38)
[2019-02-07] MEDS: ATORVASTATIN CA 10 MG TABLET (FP) PO SCH (22:37)
--- NOTE | 2019-02-08 00:46 | CONSULT ---
Consult Consult Specialty:: Endocrine Referred by:: Leeanna LATIF Reason for Consultation:: dmt2 - History of Present Illness Chief Complaint: rash purplish blisters painfull,dyspnea on exertion History of Present Illness: 68yo F hx DMT2, COPD/asthma, FIGUEROA (CPAP), S/p mitral valve replacement with mechanical valve (2006) on coumadin, CAD s/p bypass 2006, s/p stent 2014, A-fib , CHF, HTN/ HLD, spinal Stenosis, Lupus, Fibromyalgia was seen for evaluation of SOB and chest discomfort. and persistant rash eruption on dorsum left foot , unresponsive to therapy.painful eruption with difficulty breathing and chest pain,sent to ed for admission.she denies fever nausea or vomiting. - Past Medical History SHAMPOO PERSON: Yes: CVA Cardio/Vascular: Yes: AFIB, CAD, CHF, HTN, Hyperlipdemia, Other (S/P [facility] mitral valve replacement) Pulmonary: Yes: Asthma, COPD, Sleep Apnea (on CPAP at night) Gastrointestinal: Yes: Constipation, Diverticulosis, GI Bleed, Hemorrhoids Musculoskeletal: Yes: Chronic low back pain, Other (Spinal stenosis) Rheumatology: Yes: Fibromyalgia, Lupus, Other (APLAS (BOTH LUPUS AND APLS ARE QUESTIONABLE)) Endocrine: Yes: Diabetes Mellitus Additional Medical History: morbid obesity - Past Surgical History Past Surgical History: Yes: CABG, Cholecystectomy, Hysterectomy, Oopherectomy, Valve Replacement - Alcohol/Substance Use Hx Alcohol Use: No History of Substance Use: reports: None - Smoking History Smoking history: Never smoked Have you smoked in the past 12 months: No Aproximately how many cigarettes per day: 0 If you are a former smoker, when did you quit?: many years - Social History Usual Living Arrangement: With Spouse ADL: Independent History of Recent Travel: No Home Medications - Allergies Allergies/Adverse Reactions: Allergies Allergy/AdvReac Type Severity Reaction Status Date / Time lactose Allergy Mild Verified 02/04/19 18:02 Beta-Blockers Allergy Verified 02/04/19 18:02 (Beta-Adrenergic Bloc Fish Containing Products Allergy Verified 02/04/19 18:02 fish derived Allergy Verified 02/04/19 18:02 Iodinated Contrast Media Allergy Verified 02/04/19 18:02 [IV Dye, Iodine Containing Contrast ] shellfish derived Allergy Verified 02/04/19 18:02 Royuwtm-Ikh-Kxe Reductase AdvReac Intermediate Verified 02/04/19 18:02 Inhibitor gabapentin AdvReac Verified 02/05/19 18:21 - Home Medications Home Medications: Ambulatory Orders Atorvastatin Ca [Lipitor] 10 mg PO HS 09/11/18 Levothyroxine [Synthroid -] 25 mcg PO DAILY 09/11/18 Lipase/Protease/Amylase [Cecil King 36,000 Units Capsule] 1 cap PO DAILY 09/11/18 Torsemide 100 mg PO DAILY 09/11/18 Tramadol HCl [Ultram] 50 mg PO DAILY 09/11/18 Pramipexole Dihydrochloride 0.75 mg PO QID 09/14/18 Carbidopa/Levodopa *Cr* 25/100 [Sinemet *Cr* 25/100 -] 1 combo PO TID tablet.er 09/18/18 Citalopram Hydrobromide [Celexa -] 20 mg PO DAILY tablet 09/18/18 Potassium Chloride [K-Dur -] 40 meq PO DAILY tablet.er 09/18/18 Pramipexole Dihydrochloride [Mirapex -] 0.75 mg PO TID tablet 09/18/18 Topiramate [Topamax -] 100 mg PO BID tablet 09/18/18 Verapamil HCl ER [Calan Sr -] 240 mg PO DAILY tablet.er 09/18/18 Acetaminophen W/ Codeine #3 [Tylenol # 3 -] 1 - 2 tab PO Q4H 02/04/19 Cetirizine HCl [Zyrtec -] 20 mg PO BID 02/04/19 Insulin Glulisine [Apidra] 100 unit SQ BIDAC 02/04/19 Warfarin Sodium [Coumadin] 8 mg PO HS 02/04/19 Warfarin Sodium [Coumadin] 10 mg PO HS 02/04/19 Review of Systems - Review of Systems Constitutional: reports: Lethargy Eyes: reports: Blurred Vision HENT: reports: Difficult Swallowing Neck: reports: No Symptoms Cardiovascular: reports: Edema, Palpitations Respiratory: reports: Exercise Intolerance, SOB, SOB on Exertion Gastrointestinal: reports: Bloating, Constipation Genitourinary: reports: Frequency Breasts: reports: No Symptoms Reported Musculoskeletal: reports: No Symptoms, Back Pain, Decreased ROM, Extremity Pain , Muscle Weakness Integumentary: reports: Blister, Lesions Neurological: reports: Numbness Endocrine: reports: Unexplained Weight Gain Physical Exam Vital Signs: Vital Signs Temperature 97.9 F 02/07/19 20:45 Pulse Rate 65 02/07/19 20:45 Respiratory Rate 20 02/07/19 20:45 Blood Pressure 125/56 L 02/07/19 20:45 O2 Sat by Pulse Oximetry (%) 95 02/07/19 21:00 Constitutional: Yes: Anxious Eyes: Yes: EOM Intact HENT: Yes: Normocephalic Neck: Yes: Trachea Midline Cardiovascular: Yes: Tachycardia, Murmur Respiratory: Yes: SOB on Exertion, Tachypnea Gastrointestinal: Yes: Abdomen, Obese ...Rectal Exam: Yes: Deferred Musculoskeletal: Yes: Back Pain, Muscle Weakness Extremities: Yes: Delayed Capillary Refill Edema: LLE: 1+, RLE: 1+ Integumentary: Yes: Petechiae, Rash, Onychomycosis, Venous Stasis Changes Neurological: Yes: Alert, Oriented Labs: CBC, BMP 02/07/19 05:40 02/07/19 05:40 Problem List - Problems (1) Atypical chest pain Problems reviewed: Yes Code(s): R07.89 - OTHER CHEST PAIN (2) Blister (nonthermal), left foot, initial encounter Problems reviewed: Yes Code(s): S90.822A - BLISTER (NONTHERMAL), LEFT FOOT, INITIAL ENCOUNTER (3) Depression Problems reviewed: Yes Code(s): F32.9 - MAJOR DEPRESSIVE DISORDER, SINGLE EPISODE, UNSPECIFIED (4) Hypothyroid Problems reviewed: Yes Code(s): E03.9 - HYPOTHYROIDISM, UNSPECIFIED (5) Abdominal pain, vomiting, and diarrhea Problems reviewed: Yes Code(s): R10.9 - UNSPECIFIED ABDOMINAL PAIN; R11.10 - VOMITING, UNSPECIFIED; R19.7 - DIARRHEA, UNSPECIFIED (6) Acute bilateral low back pain Code(s): M54.5 - LOW BACK PAIN (7) Afib Code(s): I48.91 - UNSPECIFIED ATRIAL FIBRILLATION Qualifiers: Atrial fibrillation type: paroxysmal Qualified Code(s): I48.0 - Paroxysmal atrial fibrillation (8) Anaphylaxis Code(s): T78.2XXA - ANAPHYLACTIC SHOCK, UNSPECIFIED, INITIAL ENCOUNTER Assessment/Plan Current Active Problems diabetes mellitus t2 neuropathy Atypical chest pain (Acute) Blister (nonthermal), left foot, initial encounter (Acute) Depression (Acute) Hypothyroid (Acute) Abnormal Lab Results 02/07/19 02/07/19 02/07/19 05:40 05:40 05:40 WBC 11.6 H Absolute Neuts (auto) 9.4 H Neutrophils % (Manual) 87.4 H Lymphocytes % (Manual) 6.9 L D Monocytes % (Manual) 3 L PT with INR 24.40 H INR 2.05 H Anion Gap 6 L BUN 28.0 H Random Glucose 151 H AST 13 L Laboratory Results - last 24 hr 02/07/19 02/07/19 02/07/19 05:40 05:40 05:40 WBC 11.6 H RBC 4.24 Hgb 11.8 Hct 36.3 MCV 85.7 MCH 27.9 MCHC 32.5 RDW 15.5 Plt Count 294 MPV 9.8 Absolute Neuts (auto) 9.4 H Neutrophils % 81.0 D Neutrophils % (Manual) 87.4 H Band Neutrophils % 0.0 Lymphocytes % 11.7 D Lymphocytes % (Manual) 6.9 L D Monocytes % 6.4 Monocytes % (Manual) 3 L Eosinophils % 0.0 D Eosinophils % (Manual) 0.0 Basophils % 0.9 Basophils % (Manual) 0.0 Myelocytes % (Man) 0 Promyelocytes % (Man) 0 Blast Cells % (Manual) 0 Nucleated RBC % 0 Metamyelocytes 0 Hypochromia 0 Platelet Estimate Normal Polychromasia 0 Poikilocytosis 0 Anisocytosis 0 Microcytosis 0 Macrocytosis 0 PT with INR 24.40 H INR 2.05 H Sodium 137 Potassium 3.5 Chloride 105 Carbon Dioxide 27 Anion Gap 6 L BUN 28.0 H Creatinine 1.2 Est GFR (CKD-EPI)AfAm 54.16 Est GFR (CKD-EPI)NonAf 46.73 POC Glucometer Random Glucose 151 H Calcium 8.5 Total Bilirubin 0.3 AST 13 L ALT 19 Alkaline Phosphatase 110 Total Protein 6.8 Albumin 3.4 TSH 0.42 02/07/19 02/07/19 02/07/19 06:37 12:46 17:52 WBC RBC Hgb Hct MCV MCH MCHC RDW Plt Count MPV Absolute Neuts (auto) Neutrophils % Neutrophils % (Manual) Band Neutrophils % Lymphocytes % Lymphocytes % (Manual) Monocytes % Monocytes % (Manual) Eosinophils % Eosinophils % (Manual) Basophils % Basophils % (Manual) Myelocytes % (Man) Promyelocytes % (Man) Blast Cells % (Manual) Nucleated RBC % Metamyelocytes Hypochromia Platelet Estimate Polychromasia Poikilocytosis Anisocytosis Microcytosis Macrocytosis PT with INR INR Sodium Potassium Chloride Carbon Dioxide Anion Gap BUN Creatinine Est GFR (CKD-EPI)AfAm Est GFR (CKD-EPI)NonAf POC Glucometer 153 117 151 Random Glucose Calcium Total Bilirubin AST ALT Alkaline Phosphatase Total Protein Albumin TSH plan: bgm qid novolog scale skin biopsy levemir 10 units am synthroid 25mcg q am
[2019-02-08] MEDS ORDERED: ceFAZolin SODIUM 1 GM VIAL ONE ×3 (00:50→17:32)
[2019-02-08] MEDS ORDERED: DEXTROSE 5%-WATER - 50 ML IVPB ONE ×3 (00:50→17:32)
[2019-02-08] MEDS: CEFAZOLIN 1 GM in DEXTROSE 5%-WATER - 50 ML IVPB SCH ×3 (01:06→17:46)
[2019-02-08] MEDS: PRAMIPEXOLE DIHYDROCHLORIDE 0.25 MG TABLET PO SCH ×3 (06:14→22:44)
[2019-02-08] MEDS: INSULIN SLIDING SCALE (NOVOLOG) 1 VIAL SQ SCH ×3 (06:14→17:00)
[2019-02-08] MEDS: LEVOTHYROXINE NA 25 MCG TABLET (FP) PO SCH (06:14)
[2019-02-08 08:13] LABS: INR 2.34 (0.83-1.09); PROTHROMBIN TIME (PATIENT) 27.8 SEC (9.7-13.0)
[2019-02-08] MEDS ORDERED: PT OWN MED DRAWER 7, Y5N ONE ×3 (09:10→21:13)
[2019-02-08] MEDS: LIPASE/PROTEASE/AMYLASE 36,000 UNIT CAPSULE PO SCH ×3 (09:15→17:43)
[2019-02-08] MEDS: CITALOPRAM HYDROBROMIDE 20 MG TABLET (FP) PO SCH (09:37)
[2019-02-08] MEDS: TORSEMIDE 100 MG TABLET PO SCH (09:37)
[2019-02-08] MEDS: traMADol HCL 50 MG TABLET PO SCH (09:37)
[2019-02-08] MEDS: LORATADINE 10 MG TABLET PO SCH (09:39)
[2019-02-08] MEDS: ENOXAPARIN NA (PORCINE) 100 MG/1 ML DISP.SYRIN SQ SCH ×2 (09:39→22:43)
[2019-02-08] MEDS: ACETAMINOPHEN 325 MG TABLET (FP) PO PRN (09:39)
[2019-02-08] MEDS: TOPIRAMATE 100 MG TABLET PO SCH ×2 (09:40→22:43)
[2019-02-08] MEDS: predniSONE 10 MG TABLET (UD) PO SCH (09:41)
[2019-02-08] MEDS: VERAPAMIL HCL 240 MG E.R. TABLET PO SCH (09:42)
--- NOTE | 2019-02-08 11:11 | PN ---
Progress Note, Physician Chief Complaint: Chest Pain L Foot Bullae History of Present Illness: Previous notes and events reviewed awake and alert NAD complain of productive cough with yellow phlegm for possible biopsy of left foot by podiatry - Current Medication List Current Medications: Active Medications Acetaminophen (Tylenol -) 650 mg PO Q4H PRN PRN Reason: PAIN LEVEL 1-5 Last Admin: 02/08/19 09:39 Dose: 650 mg Albuterol/Ipratropium (Duoneb -) 1 amp NEB RQID PRN PRN Reason: SHORTNESS OF BREATH Atorvastatin Calcium (Lipitor -) 10 mg PO HS [facility] Last Admin: 02/07/19 22:37 Dose: 10 mg Carbidopa/Levodopa (Sinemet *Cr* 25/100 -) 1 combo PO TID [facility] Last Admin: 02/08/19 06:14 Dose: 1 combo Citalopram Hydrobromide (Celexa -) 20 mg PO DAILY [facility] Last Admin: 02/08/19 09:37 Dose: 20 mg Enoxaparin Sodium (Lovenox -) 90 mg SQ BID [facility] Last Admin: 02/08/19 09:39 Dose: 90 mg Cefazolin Sodium 1 gm/ (Dextrose) 50 mls @ 100 mls/hr IVPB Q8H-IV [facility] Last Admin: 02/08/19 09:36 Dose: 100 mls/hr Insulin Aspart (Novolog Vial Sliding Scale -) 1 vial SQ TIDAC [facility]; Protocol Last Admin: 02/08/19 06:14 Dose: Not Given Levothyroxine Sodium (Synthroid -) 25 mcg PO ACBK [facility] Last Admin: 02/08/19 06:14 Dose: 25 mcg Loratadine (Claritin -) 10 mg PO DAILY [facility] Last Admin: 02/08/19 09:39 Dose: 10 mg Pancrelipase (Creon Dr 36,000 Units Capsule) 1 cap PO TIDCM [facility] Last Admin: 02/08/19 09:15 Dose: 1 cap Pramipexole Dihydrochloride (Mirapex -) 0.75 mg PO TID [facility] Last Admin: 02/08/19 06:14 Dose: 0.75 mg Prednisone (Deltasone -) 10 mg PO DAILY [facility] Stop: 02/09/19 10:01 Last Admin: 02/08/19 09:41 Dose: 10 mg Topiramate (Topamax -) 100 mg PO BID [facility] Last Admin: 02/08/19 09:40 Dose: 100 mg Torsemide (Demadex -) 100 mg PO DAILY [facility] Last Admin: 02/08/19 09:37 Dose: 100 mg Tramadol HCl (Ultram -) 50 mg PO DAILY [facility] Last Admin: 02/08/19 09:37 Dose: 50 mg Verapamil HCl (Calan Sr -) 240 mg PO DAILY [facility] Last Admin: 02/08/19 09:42 Dose: 240 mg Warfarin Sodium 5 mg/ Warfarin (Sodium 3 mg) 8 mg PO DAILY@1800 [facility] Last Admin: 02/07/19 17:49 Dose: 8 mg - Objective Vital Signs: Vital Signs Temperature 98.7 F 02/08/19 10:00 Pulse Rate 46 L 02/08/19 10:00 Respiratory Rate 18 02/08/19 10:00 Blood Pressure 128/51 L 02/08/19 10:00 O2 Sat by Pulse Oximetry (%) 95 02/07/19 21:00 Constitutional: Yes: No Distress, Calm, Obese Eyes: Yes: Conjunctiva Clear HENT: Yes: Atraumatic Cardiovascular: Yes: Regular Rate and Rhythm Respiratory: Yes: Regular, Diminished, On Nasal O2 Gastrointestinal: Yes: Normal Bowel Sounds, Soft, Abdomen, Obese Musculoskeletal: Yes: Muscle Weakness Extremities: Yes: WNL Edema: Yes Integumentary: Yes: Other (left foot blisters) Neurological: Yes: Alert, Oriented Psychiatric: Yes: Alert, Oriented Labs: CBC, BMP 02/07/19 05:40 02/07/19 05:40 INR, PTT INR 2.34 (0.83-1.09) H 02/08/19 06:53 Problem List - Problems (1) Blister (nonthermal), left foot, initial encounter Assessment/Plan: -Podiatry on board -for biopsy of left foot -Cefazolin -off-loading Code(s): S90.822A - BLISTER (NONTHERMAL), LEFT FOOT, INITIAL ENCOUNTER (2) Hypothyroid Assessment/Plan: -Levothyroxine Code(s): E03.9 - HYPOTHYROIDISM, UNSPECIFIED (3) CAD (coronary artery disease) Assessment/Plan: -Atorvastatin -Cardiology consult Code(s): I25.10 - ATHSCL HEART DISEASE OF [place] CORONARY ARTERY W/O ANG PCTRS (4) CHF (congestive heart failure) Assessment/Plan: -Torsemide -Cardiology on board -strict I&O -daiy weights -fluid restriction Code(s): I50.9 - HEART FAILURE, UNSPECIFIED (5) COPD (chronic obstructive pulmonary disease) Assessment/Plan: -bronchodilators -keep SpO2 >90% -O2 via NC Code(s): J44.9 - CHRONIC OBSTRUCTIVE PULMONARY DISEASE, UNSPECIFIED Qualifiers: COPD type: COPD with acute exacerbation Qualified Code(s): J44.1 - Chronic obstructive pulmonary disease with (acute) exacerbation (6) Diabetes Assessment/Plan: -BGM ACHS -ISS -HgA1c 7.5% Code(s): E11.9 - TYPE 2 DIABETES MELLITUS WITHOUT COMPLICATIONS Qualifiers: Diabetes mellitus type: type 2 Diabetes mellitus complication status: with neurologic complications (7) HTN (hypertension) Assessment/Plan: -Verapamil -low Na diet Code(s): I10 - ESSENTIAL (PRIMARY) HYPERTENSION Qualifiers: Hypertension type: essential hypertension Qualified Code(s): I10 - Essential (primary) hypertension (8) S/P MVR (mitral valve replacement) Assessment/Plan: -INR 2.34 -goal INR 2.5-3.5 -Warfarin with Lovenox bridge until INR therapeutic Code(s): Z95.2 - PRESENCE OF PROSTHETIC HEART VALVE (9) Parkinson disease Assessment/Plan: -Carbidope-Levodopa -fall risk Code(s): G20 - PARKINSON'S DISEASE (10) Cellulitis Assessment/Plan: -Podiatry on board -for biopsy of left foot -Cefazolin -off-loading -uric acid 6.6 Code(s): L03.90 - CELLULITIS, UNSPECIFIED Qualifiers: Site of cellulitis of extremity: lower extremity Laterality: left Assessment/Plan see problem list
[2019-02-08] MEDS ORDERED: ALBUTEROL SO4 0.083% IH SOL 2.5 MG/3 ML VIAL.NEB. NEB PRN (13:12)
--- NOTE | 2019-02-08 13:12 | PN ---
Progress Note (short form) - Note Progress Note: PULMONARY Intermittent shortness of breath. Occasional chest pain. Vital Signs Period Temp Pulse Resp BP Sys/Wise Pulse Ox Last 24 Hr 97.4 F-98.7 F 46-72 18-20 119-155/51-78 95-98 Gen: NAD at rest Heart: RRR Lung: decreased breath sounds at the bases Abd: soft, nontender Ext: no edema CBC, BMP 02/07/19 05:40 02/07/19 05:40 Active Medications Acetaminophen (Tylenol -) 650 mg PO Q4H PRN PRN Reason: PAIN LEVEL 1-5 Last Admin: 02/08/19 09:39 Dose: 650 mg Albuterol/Ipratropium (Duoneb -) 1 amp NEB RQID PRN PRN Reason: SHORTNESS OF BREATH Atorvastatin Calcium (Lipitor -) 10 mg PO HS [facility] Last Admin: 02/07/19 22:37 Dose: 10 mg Carbidopa/Levodopa (Sinemet *Cr* 25/100 -) 1 combo PO TID [facility] Last Admin: 02/08/19 06:14 Dose: 1 combo Citalopram Hydrobromide (Celexa -) 20 mg PO DAILY [facility] Last Admin: 02/08/19 09:37 Dose: 20 mg Enoxaparin Sodium (Lovenox -) 90 mg SQ BID [facility] Last Admin: 02/08/19 09:39 Dose: 90 mg Cefazolin Sodium 1 gm/ (Dextrose) 50 mls @ 100 mls/hr IVPB Q8H-IV [facility] Last Admin: 02/08/19 09:36 Dose: 100 mls/hr Insulin Aspart (Novolog Vial Sliding Scale -) 1 vial SQ TIDAC [facility]; Protocol Last Admin: 02/08/19 11:52 Dose: Not Given Levothyroxine Sodium (Synthroid -) 25 mcg PO ACBK [facility] Last Admin: 02/08/19 06:14 Dose: 25 mcg Loratadine (Claritin -) 10 mg PO DAILY [facility] Last Admin: 02/08/19 09:39 Dose: 10 mg Pancrelipase (Creon Dr 36,000 Units Capsule) 1 cap PO TIDCM [facility] Last Admin: 02/08/19 12:32 Dose: 1 cap Pramipexole Dihydrochloride (Mirapex -) 0.75 mg PO TID [facility] Last Admin: 02/08/19 06:14 Dose: 0.75 mg Prednisone (Deltasone -) 10 mg PO DAILY [facility] Stop: 02/09/19 10:01 Last Admin: 02/08/19 09:41 Dose: 10 mg Topiramate (Topamax -) 100 mg PO BID [facility] Last Admin: 02/08/19 09:40 Dose: 100 mg Torsemide (Demadex -) 100 mg PO DAILY [facility] Last Admin: 02/08/19 09:37 Dose: 100 mg Tramadol HCl (Ultram -) 50 mg PO DAILY [facility] Last Admin: 02/08/19 09:37 Dose: 50 mg Verapamil HCl (Calan Sr -) 240 mg PO DAILY [facility] Last Admin: 02/08/19 09:42 Dose: 240 mg Warfarin Sodium 5 mg/ Warfarin (Sodium 3 mg) 8 mg PO DAILY@1800 [facility] Last Admin: 02/07/19 17:49 Dose: 8 mg A/P COPD CAD s/p CABG h/o MVR Pericardial Effusion SLE Antiphospholipid Syndrome h/o DVT HTN Hyperlipidemia FIGUEROA - inhaled bronchodilators - will add symbicort - continue anticoagulation - O2 to keep SpO2 >90%
--- NOTE | 2019-02-08 13:31 | PN ---
Progress Note (short form) - Note Progress Note: s: continues to have chest pain, no palps, dizziness, dyspnea. Current Medications Acetaminophen (Tylenol -) 650 mg PO Q4H PRN PRN Reason: PAIN LEVEL 1-5 Last Admin: 02/08/19 09:39 Dose: 650 mg Albuterol Sulfate (Ventolin 0.083% Nebulizer Soln -) 1 amp NEB Q4H PRN PRN Reason: SHORT OF BREATH/WHEEZING Albuterol/Ipratropium (Duoneb -) 1 amp NEB RTID CHRIS Atorvastatin Calcium (Lipitor -) 10 mg PO HS [facility] Last Admin: 02/07/19 22:37 Dose: 10 mg Budesonide/Formoterol Fumarate (Symbicort 160/4.5mcg -) 2 puff IH BID [facility] Carbidopa/Levodopa (Sinemet *Cr* 25/100 -) 1 combo PO TID [facility] Last Admin: 02/08/19 06:14 Dose: 1 combo Citalopram Hydrobromide (Celexa -) 20 mg PO DAILY [facility] Last Admin: 02/08/19 09:37 Dose: 20 mg Enoxaparin Sodium (Lovenox -) 90 mg SQ BID [facility] Last Admin: 02/08/19 09:39 Dose: 90 mg Cefazolin Sodium 1 gm/ (Dextrose) 50 mls @ 100 mls/hr IVPB Q8H-IV [facility] Last Admin: 02/08/19 09:36 Dose: 100 mls/hr Insulin Aspart (Novolog Vial Sliding Scale -) 1 vial SQ TIDAC [facility]; Protocol Last Admin: 02/08/19 11:52 Dose: Not Given Levothyroxine Sodium (Synthroid -) 25 mcg PO ACBK [facility] Last Admin: 02/08/19 06:14 Dose: 25 mcg Loratadine (Claritin -) 10 mg PO DAILY [facility] Last Admin: 02/08/19 09:39 Dose: 10 mg Pancrelipase (Creon Dr 36,000 Units Capsule) 1 cap PO TIDCM [facility] Last Admin: 02/08/19 12:32 Dose: 1 cap Pramipexole Dihydrochloride (Mirapex -) 0.75 mg PO TID [facility] Last Admin: 02/08/19 06:14 Dose: 0.75 mg Prednisone (Deltasone -) 10 mg PO DAILY [facility] Stop: 02/09/19 10:01 Last Admin: 02/08/19 09:41 Dose: 10 mg Topiramate (Topamax -) 100 mg PO BID [facility] Last Admin: 02/08/19 09:40 Dose: 100 mg Torsemide (Demadex -) 100 mg PO DAILY [facility] Last Admin: 02/08/19 09:37 Dose: 100 mg Tramadol HCl (Ultram -) 50 mg PO DAILY [facility] Last Admin: 02/08/19 09:37 Dose: 50 mg Verapamil HCl (Calan Sr -) 240 mg PO DAILY [facility] Last Admin: 02/08/19 09:42 Dose: 240 mg Warfarin Sodium 5 mg/ Warfarin (Sodium 3 mg) 8 mg PO DAILY@1800 [facility] Last Admin: 02/07/19 17:49 Dose: 8 mg Vital Signs Period Temp Pulse Resp BP Sys/Wise Pulse Ox Last 24 Hr 97.4 F-98.7 F 46-72 18-20 119-155/51-78 95-98 Constitutional: Yes: No Distress Cardiovascular: Yes: Regular Rate and Rhythm Respiratory: Yes: Rhonchi Gastrointestinal: Yes: Soft (NT) Edema: Yes Edema: LLE: 1+, RLE: 1+ Neurological: Yes: Alert no jaundice, diaphoresis not agitated echo 01/2019 tds, nl LV/RV function, [facility] MVR, sm pericardial effusion <1 cm no tamponade Nuclear stress 01/2019: Mild apical ischemia tele: sr a/p: 68 year old lady with past medical history of COPD on home 02, FIGUEROA (on cpap at home), CAD (s/p single vessel CABG 2006 with RUSSELL to OM and ROSALINA x2 to LAD 12/2011; last cath 06/2014 showed patent RUSSELL, patent LAD stents, no sig residual dz except for 80-90% OM that is bypassed), [facility] mvr (st julia, 2006, on coumadin), anemia, TIA, dCHF, DM, HTN, pafib, antiphospholipid syndrome (on coumadin), fibromyalgia, migraines, chronic atypical cp, obesity, LBP here with blisters on foot. foot blisters: -derm eval pending Atyp CP: -chronic recurrent sx for the pt -MSK features, reproducible on exam--sec to severe coughing fits, +/- fibromyalgia -NST for this cp in 12/2013 and 04/2016 showed no ischemia and prior cath for this persistent cp 06/2014 showed patent graft and prior pci, no significant residual dz - symptoms atypical, chronic, similar to prior episodes which have been extensively evaluated with serial stress tests and cath. Prior cath for similar sx was non-obstx. - No further inpatient cardiac work up planned at this time. cad, s/p cabg, pci: -as above -no signs acs -normal lvef -no bb due to copd, on verapamil instead -not on statin due to prior intolerance -given her epistaxis asa stopped as she is on ac. dizziness: -pt c/o some dizziness at times (not positional, occurs even when laying down still in bed). Persisted even with holding ranexa so not side effect related. Recent holter and echo unremarkable. Continued outpt f/u with neuro, ent. [facility] MVR: -on AC w/ coumadin, target INR 2.5 to 3.5. - echo with normal [facility] mvr function HTN: Remains controlled on current meds. pafib: -rare episodes in past -remains in sr -continue verapamil -cont ac with coumadin, has hx of TIA chronic HFpEF: -vol status has been stable on torsemide
[2019-02-08] MEDS: ALBUTEROL SO4 2.5/IPRATROPIUM 0.5 INH SOL 3 ML VIAL.NEB. NEB SCH ×2 (15:00→19:58)
[2019-02-08] MEDS: BUDESONIDE/FORMETEROL FUMARATE 160/4.5 mcg INHALER IH SCH ×2 (16:00→22:45)
[2019-02-08] MEDS ORDERED: WARFARIN NA 5 MG TABLET (UD) ONE (17:31)
[2019-02-08] MEDS ORDERED: WARFARIN NA 3 MG TABLET ONE (17:31)
[2019-02-08] MEDS: WARFARIN NA 5 MG, WARFARIN NA 3 MG PO SCH (17:44)
[2019-02-08] MEDS: ATORVASTATIN CA 10 MG TABLET (FP) PO SCH (22:43)
--- NOTE | 2019-02-09 00:35 | PN ---
Progress Note, Physician Chief Complaint: has cp and foot pain from rash - Current Medication List Current Medications: Active Medications Acetaminophen (Tylenol -) 650 mg PO Q4H PRN PRN Reason: PAIN LEVEL 1-5 Last Admin: 02/08/19 09:39 Dose: 650 mg Albuterol Sulfate (Ventolin 0.083% Nebulizer Soln -) 1 amp NEB Q4H PRN PRN Reason: SHORT OF BREATH/WHEEZING Albuterol/Ipratropium (Duoneb -) 1 amp NEB RTID [facility] Last Admin: 02/08/19 19:58 Dose: 1 amp Atorvastatin Calcium (Lipitor -) 10 mg PO HS [facility] Last Admin: 02/08/19 22:43 Dose: 10 mg Budesonide/Formoterol Fumarate (Symbicort 160/4.5mcg -) 2 puff IH BID [facility] Last Admin: 02/08/19 22:45 Dose: 2 inhaler Carbidopa/Levodopa (Sinemet *Cr* 25/100 -) 1 combo PO TID [facility] Last Admin: 02/08/19 22:43 Dose: 1 combo Citalopram Hydrobromide (Celexa -) 20 mg PO DAILY [facility] Last Admin: 02/08/19 09:37 Dose: 20 mg Enoxaparin Sodium (Lovenox -) 90 mg SQ BID [facility] Last Admin: 02/08/19 22:43 Dose: 90 mg Cefazolin Sodium 1 gm/ (Dextrose) 50 mls @ 100 mls/hr IVPB Q8H-IV [facility] Last Admin: 02/08/19 17:46 Dose: 100 mls/hr Insulin Aspart (Novolog Vial Sliding Scale -) 1 vial SQ TIDAC [facility]; Protocol Last Admin: 02/08/19 17:00 Dose: 2 unit Levothyroxine Sodium (Synthroid -) 25 mcg PO ACBK [facility] Last Admin: 02/08/19 06:14 Dose: 25 mcg Loratadine (Claritin -) 10 mg PO DAILY [facility] Last Admin: 02/08/19 09:39 Dose: 10 mg Pancrelipase (Creon Dr 36,000 Units Capsule) 1 cap PO TIDCM [facility] Last Admin: 02/08/19 17:43 Dose: 1 cap Pramipexole Dihydrochloride (Mirapex -) 0.75 mg PO TID [facility] Last Admin: 02/08/19 22:44 Dose: 0.75 mg Prednisone (Deltasone -) 10 mg PO DAILY [facility] Stop: 02/09/19 10:01 Last Admin: 02/08/19 09:41 Dose: 10 mg Topiramate (Topamax -) 100 mg PO BID [facility] Last Admin: 02/08/19 22:43 Dose: 100 mg Torsemide (Demadex -) 100 mg PO DAILY [facility] Last Admin: 02/08/19 09:37 Dose: 100 mg Tramadol HCl (Ultram -) 50 mg PO DAILY [facility] Last Admin: 02/08/19 09:37 Dose: 50 mg Verapamil HCl (Calan Sr -) 240 mg PO DAILY [facility] Last Admin: 02/08/19 09:42 Dose: 240 mg Warfarin Sodium 5 mg/ Warfarin (Sodium 3 mg) 8 mg PO DAILY@1800 [facility] Last Admin: 02/08/19 17:44 Dose: 8 mg - Objective Vital Signs: Vital Signs Temperature 98.7 F 02/08/19 20:45 Pulse Rate 67 02/08/19 20:45 Respiratory Rate 18 02/08/19 20:45 Blood Pressure 159/94 02/08/19 20:45 O2 Sat by Pulse Oximetry (%) 96 02/08/19 21:00 Constitutional: Yes: Anxious Eyes: Yes: EOM Intact HENT: Yes: Normocephalic Neck: Yes: Trachea Midline Cardiovascular: Yes: Regular Rate and Rhythm Respiratory: Yes: CTA Bilaterally Gastrointestinal: Yes: Normal Bowel Sounds ...Rectal Exam: Yes: Deferred Genitourinary: Yes: WNL Extremities: Yes: Cold, Delayed Capillary Refill Edema: No Peripheral Pulses WNL: Yes Integumentary: Yes: Erythema, Rash, Onychomycosis Neurological: Yes: Alert, Oriented Labs: CBC, BMP 02/07/19 05:40 02/07/19 05:40 INR, PTT INR 2.34 (0.83-1.09) H 02/08/19 06:53 Problem List - Problems (1) Atypical chest pain Problems reviewed: Yes Code(s): R07.89 - OTHER CHEST PAIN (2) Blister (nonthermal), left foot, initial encounter Problems reviewed: Yes Code(s): S90.822A - BLISTER (NONTHERMAL), LEFT FOOT, INITIAL ENCOUNTER (3) Depression Problems reviewed: Yes Code(s): F32.9 - MAJOR DEPRESSIVE DISORDER, SINGLE EPISODE, UNSPECIFIED (4) Hypothyroid Code(s): E03.9 - HYPOTHYROIDISM, UNSPECIFIED (5) Abdominal pain, vomiting, and diarrhea Code(s): R10.9 - UNSPECIFIED ABDOMINAL PAIN; R11.10 - VOMITING, UNSPECIFIED; R19.7 - DIARRHEA, UNSPECIFIED (6) Acute bilateral low back pain Code(s): M54.5 - LOW BACK PAIN (7) Afib Code(s): I48.91 - UNSPECIFIED ATRIAL FIBRILLATION Qualifiers: Atrial fibrillation type: paroxysmal Qualified Code(s): I48.0 - Paroxysmal atrial fibrillation (8) Anaphylaxis Code(s): T78.2XXA - ANAPHYLACTIC SHOCK, UNSPECIFIED, INITIAL ENCOUNTER Assessment/Plan Current Active Problems dm type 2 neuropathy Atypical chest pain (Acute) Blister (nonthermal), left foot, initial encounter (Acute) Depression (Acute) Hypothyroid (Acute) Abnormal Lab Results 02/08/19 06:53 PT with INR 27.80 H INR 2.34 H Laboratory Results - last 24 hr 02/08/19 02/08/19 02/08/19 06:12 06:53 11:37 PT with INR 27.80 H INR 2.34 H POC Glucometer 181 147 02/08/19 16:56 PT with INR INR POC Glucometer 212 plan: consult skin lesions bgm qid novolog scale metformin 500mg bid
[2019-02-09] MEDS ORDERED: ceFAZolin SODIUM 1 GM VIAL ONE ×3 (01:16→16:41)
[2019-02-09] MEDS ORDERED: DEXTROSE 5%-WATER - 50 ML IVPB ONE ×3 (01:16→16:41)
[2019-02-09] MEDS: CEFAZOLIN 1 GM in DEXTROSE 5%-WATER - 50 ML IVPB SCH ×3 (01:31→17:00)
[2019-02-09] MEDS: metFORMIN HCL 500 MG TABLET (FP) PO SCH ×3 (07:05→16:46)
[2019-02-09] MEDS: LEVOTHYROXINE NA 25 MCG TABLET (FP) PO SCH (07:05)
[2019-02-09] MEDS: INSULIN SLIDING SCALE (NOVOLOG) 1 VIAL SQ SCH ×3 (07:05→16:46)
[2019-02-09] MEDS: PRAMIPEXOLE DIHYDROCHLORIDE 0.25 MG TABLET PO SCH ×3 (07:05→22:44)
[2019-02-09 07:47] LABS: HEMATOCRIT 37.9 % (32.4-45.2); HEMOGLOBIN 12.5 GM/dL (10.7-15.3); MCH 28.1 pg (25.7-33.7); MEAN CELL VOLUME 84.9 fl (80-96); MEAN PLT VOLUME 9.8 fl (7.5-11.1); PLATELET COUNT 322 K/MM3 (134-434); RBC 4.47 M/mm3 (3.60-5.2); RDW 15.7 % (11.6-15.6); WHITE BLOOD COUNT 10.6 K/mm3 (4.0-10.0)
[2019-02-09] MEDS: ALBUTEROL SO4 2.5/IPRATROPIUM 0.5 INH SOL 3 ML VIAL.NEB. NEB SCH ×3 (07:48→19:48)
[2019-02-09 08:03] LABS: INR 2.7 (0.83-1.09); PROTHROMBIN TIME (PATIENT) 32.2 SEC (9.7-13.0)
[2019-02-09 08:13] LABS: ALBUMIN 3.6 g/dl (3.4-5.0); BILIRUBIN,TOTAL 0.2 mg/dL (0.2-1); BLOOD UREA NITROGEN 26.2 mg/dL (7-18); CALCIUM 8.9 mg/dL (8.5-10.1); CREATININE 1.3 mg/dL (0.55-1.3); POTASSIUM 3.2 mmol/L (3.5-5.1); TOT PROT 7.4 g/dl (6.4-8.2)
[2019-02-09] MEDS: ACETAMINOPHEN 325 MG TABLET (FP) PO PRN (09:12)
[2019-02-09] MEDS: traMADol HCL 50 MG TABLET PO SCH (09:13)
[2019-02-09] MEDS: TORSEMIDE 100 MG TABLET PO SCH (09:13)
[2019-02-09] MEDS: LORATADINE 10 MG TABLET PO SCH (09:13)
[2019-02-09] MEDS: predniSONE 10 MG TABLET (UD) PO SCH (09:13)
[2019-02-09] MEDS: CITALOPRAM HYDROBROMIDE 20 MG TABLET (FP) PO SCH (09:14)
[2019-02-09] MEDS: BUDESONIDE/FORMETEROL FUMARATE 160/4.5 mcg INHALER IH SCH ×2 (09:17→22:44)
[2019-02-09] MEDS: TOPIRAMATE 100 MG TABLET PO SCH ×2 (10:33→22:45)
[2019-02-09] MEDS: LIPASE/PROTEASE/AMYLASE 36,000 UNIT CAPSULE PO SCH ×3 (10:33→16:46)
[2019-02-09] MEDS: VERAPAMIL HCL 240 MG E.R. TABLET PO SCH (10:33)
--- NOTE | 2019-02-09 10:51 | PN ---
Progress Note, Physician Chief Complaint: Chest Pain L Foot [place] History of Present Illness: Previous notes and events reviewed awake and alert NAD complain of left sided chest pain continue with productive cough hyperpigmented blisters to Left foot stool specimen pending - Current Medication List Current Medications: Active Medications Acetaminophen (Tylenol -) 650 mg PO Q4H PRN PRN Reason: PAIN LEVEL 1-5 Last Admin: 02/09/19 09:12 Dose: 650 mg Albuterol Sulfate (Ventolin 0.083% Nebulizer Soln -) 1 amp NEB Q4H PRN PRN Reason: SHORT OF BREATH/WHEEZING Albuterol/Ipratropium (Duoneb -) 1 amp NEB RTID [facility] Last Admin: 02/09/19 07:48 Dose: 1 amp Atorvastatin Calcium (Lipitor -) 10 mg PO HS [facility] Last Admin: 02/08/19 22:43 Dose: 10 mg Budesonide/Formoterol Fumarate (Symbicort 160/4.5mcg -) 2 puff IH BID [facility] Last Admin: 02/09/19 09:17 Dose: 2 inhaler Carbidopa/Levodopa (Sinemet *Cr* 25/100 -) 1 combo PO TID [facility] Last Admin: 02/09/19 07:05 Dose: 1 combo Citalopram Hydrobromide (Celexa -) 20 mg PO DAILY [facility] Last Admin: 02/09/19 09:14 Dose: 20 mg Cefazolin Sodium 1 gm/ (Dextrose) 50 mls @ 100 mls/hr IVPB Q8H-IV [facility] Last Admin: 02/09/19 09:15 Dose: 100 mls/hr Insulin Aspart (Novolog Vial Sliding Scale -) 1 vial SQ TIDAC [facility]; Protocol Last Admin: 02/09/19 07:05 Dose: Not Given Levothyroxine Sodium (Synthroid -) 25 mcg PO ACBK [facility] Last Admin: 02/09/19 07:05 Dose: 25 mcg Loratadine (Claritin -) 10 mg PO DAILY [facility] Last Admin: 02/09/19 09:13 Dose: 10 mg Metformin HCl (Glucophage -) 1,000 mg PO BID@0700,1630 [facility] Last Admin: 02/09/19 07:26 Dose: Not Given Pancrelipase (Creon Dr 36,000 Units Capsule) 1 cap PO TIDCM [facility] Last Admin: 02/09/19 10:33 Dose: 1 cap Pramipexole Dihydrochloride (Mirapex -) 0.75 mg PO TID [facility] Last Admin: 02/09/19 07:05 Dose: 0.75 mg Topiramate (Topamax -) 100 mg PO BID [facility] Last Admin: 02/09/19 10:33 Dose: 100 mg Torsemide (Demadex -) 100 mg PO DAILY [facility] Last Admin: 02/09/19 09:13 Dose: 100 mg Tramadol HCl (Ultram -) 50 mg PO DAILY [facility] Last Admin: 02/09/19 09:13 Dose: 50 mg Verapamil HCl (Calan Sr -) 240 mg PO DAILY [facility] Last Admin: 02/09/19 10:33 Dose: 240 mg Warfarin Sodium 5 mg/ Warfarin (Sodium 3 mg) 8 mg PO DAILY@1800 [facility] Last Admin: 02/08/19 17:44 Dose: 8 mg - Objective Vital Signs: Vital Signs Temperature 98.7 F 02/09/19 09:01 Pulse Rate 72 02/09/19 09:01 Respiratory Rate 24 H 02/09/19 09:01 Blood Pressure 143/60 02/09/19 09:01 O2 Sat by Pulse Oximetry (%) 97 02/09/19 09:00 Constitutional: Yes: No Distress, Calm, Obese Eyes: Yes: Conjunctiva Clear HENT: Yes: Atraumatic Cardiovascular: Yes: Regular Rate and Rhythm Respiratory: Yes: Regular, Cough, On Nasal O2, Wheezes Gastrointestinal: Yes: Normal Bowel Sounds, Soft, Abdomen, Obese, Tenderness, Epigastrium Musculoskeletal: Yes: Muscle Weakness Extremities: Yes: WNL Edema: Yes Edema: LLE: Trace, RLE: Trace Integumentary: Yes: Other (hyperpigmented blister left foot) Neurological: Yes: Alert, Oriented Psychiatric: Yes: Alert, Oriented Labs: CBC, BMP 02/09/19 05:50 02/09/19 05:50 INR, PTT INR 2.70 (0.83-1.09) H 02/09/19 05:50 Problem List - Problems (1) Blister (nonthermal), left foot, initial encounter Assessment/Plan: -Podiatry on board -for biopsy of left foot blister -Cefazolin -off-loading -Plastic Surgery Consult Dr Lainez Code(s): S90.822A - BLISTER (NONTHERMAL), LEFT FOOT, INITIAL ENCOUNTER (2) Hypothyroid Assessment/Plan: -Levothyroxine Code(s): E03.9 - HYPOTHYROIDISM, UNSPECIFIED (3) CAD (coronary artery disease) Assessment/Plan: -Atorvastatin -Cardiology consult Code(s): I25.10 - ATHSCL HEART DISEASE OF [place] CORONARY ARTERY W/O ANG PCTRS (4) CHF (congestive heart failure) Assessment/Plan: -Torsemide -Cardiology on board -strict I&O -daily weights -fluid restriction -low Na diet Code(s): I50.9 - HEART FAILURE, UNSPECIFIED (5) COPD (chronic obstructive pulmonary disease) Assessment/Plan: -bronchodilators -keep SpO2 >90% -O2 via NC -Pulm on board -Symbicort Code(s): J44.9 - CHRONIC OBSTRUCTIVE PULMONARY DISEASE, UNSPECIFIED Qualifiers: COPD type: COPD with acute exacerbation Qualified Code(s): J44.1 - Chronic obstructive pulmonary disease with (acute) exacerbation (6) Diabetes Assessment/Plan: -BGM ACHS -ISS -HgA1c 7.5% -Metformin Code(s): E11.9 - TYPE 2 DIABETES MELLITUS WITHOUT COMPLICATIONS Qualifiers: Diabetes mellitus type: type 2 Diabetes mellitus complication status: with neurologic complications (7) HTN (hypertension) Assessment/Plan: -Verapamil -low Na diet Code(s): I10 - ESSENTIAL (PRIMARY) HYPERTENSION Qualifiers: Hypertension type: essential hypertension Qualified Code(s): I10 - Essential (primary) hypertension (8) S/P MVR (mitral valve replacement) Assessment/Plan: -INR 2.70 -goal INR 2.5-3.5 -monitor INR daily -Warfarin -Lovenox discontinued due to INR being within therapeutic range, continue with Warfarin daily Code(s): Z95.2 - PRESENCE OF PROSTHETIC HEART VALVE (9) Parkinson disease Assessment/Plan: -Carbidope-Levodopa -fall risk -Neurology consult Code(s): G20 - PARKINSON'S DISEASE (10) Cellulitis Assessment/Plan: -Podiatry on board -for biopsy of left foot -Cefazolin -off-loading -uric acid 6.6 -leukocytosis -afebrile Code(s): L03.90 - CELLULITIS, UNSPECIFIED Qualifiers: Site of cellulitis of extremity: lower extremity Laterality: left Assessment/Plan see problem list
[2019-02-09] MEDS ORDERED: POTASSIUM CHLORIDE ORAL LIQUID 20 MEQ/15 ML PO ONE (11:15)
--- NOTE | 2019-02-09 12:08 | PN ---
Progress Note (short form) - Note Progress Note: s: no palps, dizziness, dyspnea, chest pain Current Medications Acetaminophen (Tylenol -) 650 mg PO Q4H PRN PRN Reason: PAIN LEVEL 1-5 Last Admin: 02/09/19 09:12 Dose: 650 mg Albuterol Sulfate (Ventolin 0.083% Nebulizer Soln -) 1 amp NEB Q4H PRN PRN Reason: SHORT OF BREATH/WHEEZING Albuterol/Ipratropium (Duoneb -) 1 amp NEB RTID [facility] Last Admin: 02/09/19 07:48 Dose: 1 amp Atorvastatin Calcium (Lipitor -) 10 mg PO HS [facility] Last Admin: 02/08/19 22:43 Dose: 10 mg Budesonide/Formoterol Fumarate (Symbicort 160/4.5mcg -) 2 puff IH BID [facility] Last Admin: 02/09/19 09:17 Dose: 2 inhaler Carbidopa/Levodopa (Sinemet *Cr* 25/100 -) 1 combo PO TID [facility] Last Admin: 02/09/19 07:05 Dose: 1 combo Citalopram Hydrobromide (Celexa -) 20 mg PO DAILY [facility] Last Admin: 02/09/19 09:14 Dose: 20 mg Cefazolin Sodium 1 gm/ (Dextrose) 50 mls @ 100 mls/hr IVPB Q8H-IV [facility] Last Admin: 02/09/19 09:15 Dose: 100 mls/hr Insulin Aspart (Novolog Vial Sliding Scale -) 1 vial SQ TIDAC [facility]; Protocol Last Admin: 02/09/19 11:54 Dose: 2 unit Levothyroxine Sodium (Synthroid -) 25 mcg PO ACBK [facility] Last Admin: 02/09/19 07:05 Dose: 25 mcg Loratadine (Claritin -) 10 mg PO DAILY [facility] Last Admin: 02/09/19 09:13 Dose: 10 mg Metformin HCl (Glucophage -) 1,000 mg PO BID@0700,1630 [facility] Last Admin: 02/09/19 07:26 Dose: Not Given Pancrelipase (Creon Dr 36,000 Units Capsule) 1 cap PO TIDCM [facility] Last Admin: 02/09/19 10:33 Dose: 1 cap Pramipexole Dihydrochloride (Mirapex -) 0.75 mg PO TID [facility] Last Admin: 02/09/19 07:05 Dose: 0.75 mg Topiramate (Topamax -) 100 mg PO BID [facility] Last Admin: 02/09/19 10:33 Dose: 100 mg Torsemide (Demadex -) 100 mg PO DAILY [facility] Last Admin: 02/09/19 09:13 Dose: 100 mg Tramadol HCl (Ultram -) 50 mg PO DAILY [facility] Last Admin: 02/09/19 09:13 Dose: 50 mg Verapamil HCl (Calan Sr -) 240 mg PO DAILY [facility] Last Admin: 02/09/19 10:33 Dose: 240 mg Warfarin Sodium 5 mg/ Warfarin (Sodium 3 mg) 8 mg PO DAILY@1800 [facility] Last Admin: 02/08/19 17:44 Dose: 8 mg Vital Signs Period Temp Pulse Resp BP Sys/Wise Pulse Ox Last 24 Hr 98.3 F-98.7 F 49-72 18-24 119-159/47-94 96-97 Constitutional: Yes: No Distress Cardiovascular: Yes: Regular Rate and Rhythm Respiratory: Yes: Rhonchi Gastrointestinal: Yes: Soft (NT) Edema: Yes Edema: LLE: 1+, RLE: 1+ Neurological: Yes: Alert no jaundice, diaphoresis not agitated echo 01/2019 tds, nl LV[facility], sm pericardial effusion <1 cm no tamponade Nuclear stress 01/2019: Mild apical ischemia tele: sr a/p: 68 year old lady with past medical history of COPD on home , FIGUEROA (on cpap at home), CAD (s/p single vessel CABG 2006 with RUSSELL to OM and ROSALINA x2 to LAD 12/2011; last cath 06/2014 showed patent RUSSELL, patent LAD stents, no sig residual dz except for 80-90% OM that is bypassed), [facility] ([facility] [place], [facility], on coumadin), anemia, TIA, dCHF, DM, HTN, pafib, antiphospholipid syndrome (on coumadin), fibromyalgia, migraines, chronic atypical cp, obesity, LBP here with blisters on foot. foot blisters: -derm eval pending Atyp CP: -chronic recurrent sx for the pt -MSK features, reproducible on exam--sec to severe coughing fits, +/- fibromyalgia -NST for this cp in 12/2013 and 04/2016 showed no ischemia and prior cath for this persistent cp 06/2014 showed patent graft and prior pci, no significant residual dz - symptoms atypical, chronic, similar to prior episodes which have been extensively evaluated with serial stress tests and cath. Prior cath for similar sx was non-obstx. - No further inpatient cardiac work up planned at this time - dc tele cad, s/p cabg, pci: -as above -no signs acs -normal lvef -no bb due to copd, on verapamil instead -not on statin due to prior intolerance -given her epistaxis asa stopped as she is on ac. dizziness: -pt c/o some dizziness at times (not positional, occurs even when laying down still in bed). Persisted even with holding ranexa so not side effect related. Recent holter and echo unremarkable. Continued outpt f/u with neuro, ent. [facility] MVR: -on AC w/ coumadin, target INR 2.5 to 3.5. - echo with normal [facility] mvr function HTN: Remains controlled on current meds. pafib: -rare episodes in past -remains in sr -continue verapamil -cont ac with coumadin, has hx of TIA chronic HFpEF: -vol status has been stable on torsemide
--- NOTE | 2019-02-09 13:33 | PN ---
Progress Note (short form) - Note Progress Note: PULMONARY Intermittent shortness of breath but better with nebulizer treatments. Occasional chest pain. Vital Signs Period Temp Pulse Resp BP Sys/Wise Pulse Ox Last 24 Hr 98.6 F-98.7 F 49-72 18-24 119-159/47-94 96-97 Gen: NAD at rest Heart: RRR Lung: decreased breath sounds at the bases Abd: soft, nontender Ext: no edema CBC, BMP 02/09/19 05:50 02/09/19 05:50 Active Medications Acetaminophen (Tylenol -) 650 mg PO Q4H PRN PRN Reason: PAIN LEVEL 1-5 Last Admin: 02/09/19 09:12 Dose: 650 mg Albuterol Sulfate (Ventolin 0.083% Nebulizer Soln -) 1 amp NEB Q4H PRN PRN Reason: SHORT OF BREATH/WHEEZING Albuterol/Ipratropium (Duoneb -) 1 amp NEB RTID [facility] Last Admin: 02/09/19 07:48 Dose: 1 amp Atorvastatin Calcium (Lipitor -) 10 mg PO HS [facility] Last Admin: 02/08/19 22:43 Dose: 10 mg Budesonide/Formoterol Fumarate (Symbicort 160/4.5mcg -) 2 puff IH BID [facility] Last Admin: 02/09/19 09:17 Dose: 2 inhaler Carbidopa/Levodopa (Sinemet *Cr* 25/100 -) 1 combo PO TID [facility] Last Admin: 02/09/19 07:05 Dose: 1 combo Citalopram Hydrobromide (Celexa -) 20 mg PO DAILY [facility] Last Admin: 02/09/19 09:14 Dose: 20 mg Cefazolin Sodium 1 gm/ (Dextrose) 50 mls @ 100 mls/hr IVPB Q8H-IV [facility] Last Admin: 02/09/19 09:15 Dose: 100 mls/hr Insulin Aspart (Novolog Vial Sliding Scale -) 1 vial SQ TIDAC [facility]; Protocol Last Admin: 02/09/19 11:54 Dose: 2 unit Levothyroxine Sodium (Synthroid -) 25 mcg PO ACBK [facility] Last Admin: 02/09/19 07:05 Dose: 25 mcg Loratadine (Claritin -) 10 mg PO DAILY [facility] Last Admin: 02/09/19 09:13 Dose: 10 mg Metformin HCl (Glucophage -) 1,000 mg PO BID@0700,1630 [facility] Last Admin: 02/09/19 07:26 Dose: Not Given Pancrelipase (Creon Dr 36,000 Units Capsule) 1 cap PO TIDCM [facility] Last Admin: 02/09/19 12:14 Dose: 1 cap Pramipexole Dihydrochloride (Mirapex -) 0.75 mg PO TID [facility] Last Admin: 02/09/19 07:05 Dose: 0.75 mg Topiramate (Topamax -) 100 mg PO BID [facility] Last Admin: 02/09/19 10:33 Dose: 100 mg Torsemide (Demadex -) 100 mg PO DAILY [facility] Last Admin: 02/09/19 09:13 Dose: 100 mg Tramadol HCl (Ultram -) 50 mg PO DAILY [facility] Last Admin: 02/09/19 09:13 Dose: 50 mg Verapamil HCl (Calan Sr -) 240 mg PO DAILY [facility] Last Admin: 02/09/19 10:33 Dose: 240 mg Warfarin Sodium 5 mg/ Warfarin (Sodium 3 mg) 8 mg PO DAILY@1800 [facility] Last Admin: 02/08/19 17:44 Dose: 8 mg A/P COPD CAD s/p CABG h/o MVR Pericardial Effusion SLE Antiphospholipid Syndrome h/o DVT HTN Hyperlipidemia FIGUEROA - inhaled bronchodilators - symbicort - continue anticoagulation - O2 to keep SpO2 >90%
[2019-02-09] MEDS ORDERED: PT OWN MED DRAWER 7, Y5N ONE ×3 (16:41→18:29)
[2019-02-09] MEDS ORDERED: WARFARIN NA 5 MG TABLET (UD) ONE (16:42)
[2019-02-09] MEDS ORDERED: WARFARIN NA 3 MG TABLET ONE (16:43)
[2019-02-09] MEDS: WARFARIN NA 5 MG, WARFARIN NA 3 MG PO SCH (17:01)
[2019-02-09] MEDS: ATORVASTATIN CA 10 MG TABLET (FP) PO SCH (22:54)
[2019-02-10] MEDS ORDERED: DEXTROSE 5%-WATER - 50 ML IVPB ONE ×3 (01:45→16:46)
[2019-02-10] MEDS ORDERED: ceFAZolin SODIUM 1 GM VIAL ONE ×3 (01:45→16:46)
[2019-02-10] MEDS: CEFAZOLIN 1 GM in DEXTROSE 5%-WATER - 50 ML IVPB SCH ×3 (02:01→17:36)
[2019-02-10] MEDS: ACETAMINOPHEN 325 MG TABLET (FP) PO PRN ×2 (02:10→22:30)
[2019-02-10] MEDS: PRAMIPEXOLE DIHYDROCHLORIDE 0.25 MG TABLET PO SCH ×3 (06:10→22:22)
[2019-02-10] MEDS: metFORMIN HCL 500 MG TABLET (FP) PO SCH ×3 (06:11→16:40)
[2019-02-10] MEDS: LEVOTHYROXINE NA 25 MCG TABLET (FP) PO SCH (06:11)
[2019-02-10] MEDS: INSULIN SLIDING SCALE (NOVOLOG) 1 VIAL SQ SCH ×3 (06:20→16:40)
[2019-02-10 07:20] LABS: HEMOGLOBIN 11.5 GM/dL (10.7-15.3); MCH 28.1 pg (25.7-33.7); MEAN CELL VOLUME 85.3 fl (80-96); MEAN PLT VOLUME 9.3 fl (7.5-11.1); PLATELET COUNT 281 K/MM3 (134-434); RDW 15.5 % (11.6-15.6); WHITE BLOOD COUNT 11.5 K/mm3 (4.0-10.0)
[2019-02-10] MEDS: ALBUTEROL SO4 2.5/IPRATROPIUM 0.5 INH SOL 3 ML VIAL.NEB. NEB SCH ×3 (07:25→20:06)
[2019-02-10 07:49] LABS: ALBUMIN 3.2 g/dl (3.4-5.0); BILIRUBIN,TOTAL 0.2 mg/dL (0.2-1); BLOOD UREA NITROGEN 22.8 mg/dL (7-18); CALCIUM 8.6 mg/dL (8.5-10.1); CREATININE 1.1 mg/dL (0.55-1.3); TOT PROT 6.2 g/dl (6.4-8.2)
[2019-02-10 08:19] LABS: INR 2.55 (0.83-1.09); PROTHROMBIN TIME (PATIENT) 30.4 SEC (9.7-13.0)
[2019-02-10] MEDS ORDERED: PT OWN MED DRAWER 7, Y5N ONE ×2 (09:34→21:26)
[2019-02-10] MEDS: VERAPAMIL HCL 240 MG E.R. TABLET PO SCH (09:37)
[2019-02-10] MEDS: LORATADINE 10 MG TABLET PO SCH (09:38)
[2019-02-10] MEDS: TOPIRAMATE 100 MG TABLET PO SCH ×2 (09:38→22:24)
[2019-02-10] MEDS: traMADol HCL 50 MG TABLET PO SCH (09:38)
[2019-02-10] MEDS: LIPASE/PROTEASE/AMYLASE 36,000 UNIT CAPSULE PO SCH ×3 (09:39→16:44)
[2019-02-10] MEDS: TORSEMIDE 100 MG TABLET PO SCH (09:39)
[2019-02-10] MEDS: CITALOPRAM HYDROBROMIDE 20 MG TABLET (FP) PO SCH (09:39)
[2019-02-10] MEDS: BUDESONIDE/FORMETEROL FUMARATE 160/4.5 mcg INHALER IH SCH ×2 (09:40→22:23)
--- NOTE | 2019-02-10 09:59 | PN ---
Progress Note, Physician Chief Complaint: abd pain History of Present Illness: last night with lots of cough, sob, phlegm in R side chest, assctd with pain-- improved after expectorated s/p resp tx today RUQ abd pain, diarrhea no palp, syncope - Current Medication List Current Medications: Active Medications Acetaminophen (Tylenol -) 650 mg PO Q4H PRN PRN Reason: PAIN LEVEL 1-5 Last Admin: 02/10/19 02:10 Dose: 650 mg Albuterol Sulfate (Ventolin 0.083% Nebulizer Soln -) 1 amp NEB Q4H PRN PRN Reason: SHORT OF BREATH/WHEEZING Albuterol/Ipratropium (Duoneb -) 1 amp NEB RTID [facility] Last Admin: 02/10/19 07:25 Dose: 1 amp Atorvastatin Calcium (Lipitor -) 10 mg PO HS [facility] Last Admin: 02/09/19 22:54 Dose: 10 mg Budesonide/Formoterol Fumarate (Symbicort 160/4.5mcg -) 2 puff IH BID [facility] Last Admin: 02/10/19 09:40 Dose: 2 inhaler Carbidopa/Levodopa (Sinemet *Cr* 25/100 -) 1 combo PO TID [facility] Last Admin: 02/10/19 06:11 Dose: 1 combo Citalopram Hydrobromide (Celexa -) 20 mg PO DAILY [facility] Last Admin: 02/10/19 09:39 Dose: 20 mg Cefazolin Sodium 1 gm/ (Dextrose) 50 mls @ 100 mls/hr IVPB Q8H-IV [facility] Last Admin: 02/10/19 09:39 Dose: 100 mls/hr Insulin Aspart (Novolog Vial Sliding Scale -) 1 vial SQ TIDAC [facility]; Protocol Last Admin: 02/10/19 06:20 Dose: Not Given Levothyroxine Sodium (Synthroid -) 25 mcg PO ACBK [facility] Last Admin: 02/10/19 06:11 Dose: 25 mcg Loratadine (Claritin -) 10 mg PO DAILY [facility] Last Admin: 02/10/19 09:38 Dose: 10 mg Metformin HCl (Glucophage -) 1,000 mg PO BID@0700,1630 [facility] Last Admin: 02/10/19 06:23 Dose: Not Given Pancrelipase (Creon Dr 36,000 Units Capsule) 1 cap PO TIDCM [facility] Last Admin: 02/10/19 09:39 Dose: 1 cap Pramipexole Dihydrochloride (Mirapex -) 0.75 mg PO TID [facility] Last Admin: 02/10/19 06:10 Dose: 0.75 mg Topiramate (Topamax -) 100 mg PO BID [facility] Last Admin: 02/10/19 09:38 Dose: 100 mg Torsemide (Demadex -) 100 mg PO DAILY [facility] Last Admin: 02/10/19 09:39 Dose: 100 mg Tramadol HCl (Ultram -) 50 mg PO DAILY [facility] Last Admin: 02/10/19 09:38 Dose: 50 mg Verapamil HCl (Calan Sr -) 240 mg PO DAILY [facility] Last Admin: 02/10/19 09:37 Dose: 240 mg Warfarin Sodium 5 mg/ Warfarin (Sodium 3 mg) 8 mg PO DAILY@1800 [facility] Last Admin: 02/09/19 17:01 Dose: 8 mg - Objective Vital Signs: Vital Signs Temperature 98.2 F 02/10/19 06:00 Pulse Rate 55 L 02/10/19 06:00 Respiratory Rate 20 02/10/19 06:00 Blood Pressure 148/61 02/10/19 06:00 O2 Sat by Pulse Oximetry (%) 98 02/09/19 20:00 Constitutional: Yes: No Distress, Calm, Obese Cardiovascular: Yes: Regular Rate and Rhythm ([facility] click), S1, S2. No: Gallop, Murmur Respiratory: Yes: Regular, CTA Bilaterally. No: Accessory Muscle Use, Rales, Wheezes Extremities: No: Cold Edema: No Neurological: Yes: Alert, Oriented Psychiatric: No: Agitated Labs: CBC, BMP 02/10/19 06:50 02/10/19 06:50 INR, PTT INR 2.55 (0.83-1.09) H 02/10/19 06:50 Assessment/Plan echo 01/2019 tds, nl LV/RV function, [facility] MVR, sm pericardial effusion <1 cm no tamponade (chronic finding) Nuclear stress 01/2019: Mild apical ischemia a/p: 68 year old lady with past medical history of COPD on home 02, FIGUEROA (on cpap at home), CAD (s/p single vessel CABG 2006 with RUSSELL to OM and ROSALINA x2 to LAD 12/2011; last cath 06/2014 showed patent RUSSELL, patent LAD stents, no sig residual dz except for 80-90% OM that is bypassed), [facility] mvr ([facility] [place], 2006, on coumadin), anemia, TIA, dCHF, DM, HTN, pafib, antiphospholipid syndrome (on coumadin), fibromyalgia, migraines, chronic atypical cp, obesity, LBP here with blisters on foot. abd pain, diarrhea: -stool cultures sent -plan per pmd foot blisters: -derm eval pending Atyp CP: -chronic recurrent sx for the pt -MSK features, reproducible on exam--sec to severe coughing fits, +/- fibromyalgia -NST for this cp in 12/2013 and 04/2016 showed no ischemia and prior cath for this persistent cp 06/2014 showed patent graft and prior pci, no significant residual dz - symptoms atypical, chronic, similar to prior episodes which have been extensively evaluated with serial stress tests and cath. Prior cath for similar sx was non-obstx. - No further inpatient cardiac work up planned at this time - off tele cad, s/p cabg, pci: -as above -no signs acs -normal lvef -no bb due to copd, on verapamil instead -not on statin due to prior intolerance -given her epistaxis, asa stopped as she is on ac. dizziness: -pt c/o some dizziness at times (not positional, occurs even when laying down still in bed). Persisted even with holding ranexa so not side effect related. Recent holter and echo unremarkable. Continued outpt f/u with neuro, ent. [facility]: -on AC w/ coumadin, target INR 2.5 to 3.5. -echo with normal [facility] function HTN: -bp trend reasonable, wide pulse pressure -same meds, observe pafib: -rare episodes in past -remains in sr -continue verapamil -cont ac with coumadin, has hx of TIA chronic HFpEF: -vol status has been stable on torsemide
--- NOTE | 2019-02-10 10:30 | CONSULT ---
Consult - text type - Consultation Consultation Note: NEUROLOGY CONSULT GREATLY APPRECIATED: Events reviewed. This 68 yo woman is well known to me with Migraines headache (with aura), Restless limbs, Parkinson's disease, depression. Last seen in office 12/23/18. Well controlled on Sinemet CR 25/100 @ 7-12-5; pramipexole 0.75 TID and 1.5 mg HS, topiramate 100 mg BID, and citalopram 10 mg po daily. Also with multiple other medical problems on many medications. Admitted with SOB, cough as well as blistering to dorsum of left foot. Mild ischemia found on Nuclear stress test. On duonebs and off prednisone currently. Empirically on IV Ancef while awaiting biopsy of lesion while on isolation. C/O headache requesting sumatriptan. Also poor sleep attributed to SOB and "electricity pains" in the legs. WBC= 11.5K; MCV= 85.3; INR= 2.55 on coumadin; TSH= 0.42; Uric acid= 6.6; A1c= 7.5%; Blood cultures, UC, Stool samples neg. JAIME: Afebrile. Obese. Neck supple. Neg SLR. Punched out scabbed lesions on L foot and ankle with erythema and warmth. NEURO: Awake, alert, responsive. Ox x 3. Speech slightly hypophonic. CNII-CNXII: Masked. EOM's full. Full velazquez. No facial. Motor: + rest tremor/grasp tremor R > L. + cogwheeling. Decreased CLAYTNO 's. Strength normal. Reflexes normal in arms, areflexic legs. Toes downgoing. Coordination: No FTN dystaxia. Sensation: Reduced vibration in toes. Romberg - Gait: Ambulates independently with walker. Sl flexed and shuffling. Antalgic L foot Impression: Migraine Headaches Restless Limbs Syndrome (RLS) Parkinson's disease Worsened by Toxic-Metabolic Encephalopathy Suggest: Adjust meds to home dosing times as follows: Sinemet CR @ 09-27-5 together with pramipexole 0.75 mg TID. Pramipexole 1.5 mg HS. Continue topiramate 100 mg BID for migraine prophylaxis Orthostatic BP's Check Fe++, TIBC, Ferritin Follow INR PT with walker Thank you very much, Dagoberto Carranza MD
[2019-02-10] MEDS ORDERED: guaiFENesin/CODEINE 10 ML UNIT-DOSE CUPS PO PRN (10:46)
--- NOTE | 2019-02-10 10:46 | PN ---
Progress Note, Physician History of Present Illness: pulmonary alert,c/o cough,congestion,intermittent cp - Current Medication List Current Medications: Active Medications Acetaminophen (Tylenol -) 650 mg PO Q4H PRN PRN Reason: PAIN LEVEL 1-5 Last Admin: 02/10/19 02:10 Dose: 650 mg Albuterol Sulfate (Ventolin 0.083% Nebulizer Soln -) 1 amp NEB Q4H PRN PRN Reason: SHORT OF BREATH/WHEEZING Albuterol/Ipratropium (Duoneb -) 1 amp NEB RTID [facility] Last Admin: 02/10/19 07:25 Dose: 1 amp Atorvastatin Calcium (Lipitor -) 10 mg PO HS [facility] Last Admin: 02/09/19 22:54 Dose: 10 mg Budesonide/Formoterol Fumarate (Symbicort 160/4.5mcg -) 2 puff IH BID [facility] Last Admin: 02/10/19 09:40 Dose: 2 inhaler Carbidopa/Levodopa (Sinemet *Cr* 25/100 -) 1 combo PO TID [facility] Citalopram Hydrobromide (Celexa -) 20 mg PO DAILY [facility] Last Admin: 02/10/19 09:39 Dose: 20 mg Cefazolin Sodium 1 gm/ (Dextrose) 50 mls @ 100 mls/hr IVPB Q8H-IV [facility] Last Admin: 02/10/19 09:39 Dose: 100 mls/hr Insulin Aspart (Novolog Vial Sliding Scale -) 1 vial SQ TIDAC [facility]; Protocol Last Admin: 02/10/19 06:20 Dose: Not Given Levothyroxine Sodium (Synthroid -) 25 mcg PO ACBK [facility] Last Admin: 02/10/19 06:11 Dose: 25 mcg Loratadine (Claritin -) 10 mg PO DAILY [facility] Last Admin: 02/10/19 09:38 Dose: 10 mg Metformin HCl (Glucophage -) 1,000 mg PO BID@0700,1630 [facility] Last Admin: 02/10/19 06:23 Dose: Not Given Pancrelipase (Creon Dr 36,000 Units Capsule) 1 cap PO TIDCM [facility] Last Admin: 02/10/19 09:39 Dose: 1 cap Pramipexole Dihydrochloride (Mirapex -) 1.5 mg PO HS [facility] Pramipexole Dihydrochloride (Mirapex -) 0.75 mg PO TID [facility] Topiramate (Topamax -) 100 mg PO BID [facility] Last Admin: 02/10/19 09:38 Dose: 100 mg Torsemide (Demadex -) 100 mg PO DAILY [facility] Last Admin: 02/10/19 09:39 Dose: 100 mg Tramadol HCl (Ultram -) 50 mg PO DAILY [facility] Last Admin: 02/10/19 09:38 Dose: 50 mg Verapamil HCl (Calan Sr -) 240 mg PO DAILY [facility] Last Admin: 02/10/19 09:37 Dose: 240 mg Warfarin Sodium 5 mg/ Warfarin (Sodium 3 mg) 8 mg PO DAILY@1800 [facility] Last Admin: 02/09/19 17:01 Dose: 8 mg - Objective Vital Signs: Vital Signs Temperature 98.2 F 02/10/19 10:00 Pulse Rate 74 02/10/19 10:00 Respiratory Rate 20 02/10/19 10:00 Blood Pressure 138/66 02/10/19 10:00 O2 Sat by Pulse Oximetry (%) 98 02/10/19 10:00 Constitutional: Yes: Well Nourished, Calm Eyes: Yes: WNL HENT: Yes: WNL Neck: Yes: WNL Cardiovascular: Yes: Pulse Irregular, S1, S2 Respiratory: Yes: Wheezes (few scattered antonia wheezes) Gastrointestinal: Yes: Normal Bowel Sounds, Soft Extremities: Yes: WNL Edema: No Labs: CBC, BMP 02/10/19 06:50 02/10/19 06:50 INR, PTT INR 2.55 (0.83-1.09) H 02/10/19 06:50 Problem List - Problems (1) Atypical chest pain Code(s): R07.89 - OTHER CHEST PAIN (2) Blister (nonthermal), left foot, initial encounter Code(s): S90.822A - BLISTER (NONTHERMAL), LEFT FOOT, INITIAL ENCOUNTER (3) Hypothyroid Code(s): E03.9 - HYPOTHYROIDISM, UNSPECIFIED (4) Abdominal pain, vomiting, and diarrhea Code(s): R10.9 - UNSPECIFIED ABDOMINAL PAIN; R11.10 - VOMITING, UNSPECIFIED; R19.7 - DIARRHEA, UNSPECIFIED (5) Afib Code(s): I48.91 - UNSPECIFIED ATRIAL FIBRILLATION Qualifiers: Atrial fibrillation type: paroxysmal Qualified Code(s): I48.0 - Paroxysmal atrial fibrillation (6) Anticoagulated Code(s): Z79.01 - 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7 - DIARRHEA, UNSPECIFIED (12) Dyslipidemia Code(s): E78.5 - HYPERLIPIDEMIA, UNSPECIFIED (13) Fibromyalgia Code(s): M79.7 - FIBROMYALGIA (14) IDDM (insulin dependent diabetes mellitus) Code(s): E11.9 - TYPE 2 DIABETES MELLITUS WITHOUT COMPLICATIONS; Z79.4 - 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 (15) Mitral valve replaced Code(s): Z95.2 - PRESENCE OF PROSTHETIC HEART VALVE (16) FIGUEROA (obstructive sleep apnea) Code(s): G47.33 - OBSTRUCTIVE SLEEP APNEA (ADULT) (PEDIATRIC) (17) Obesities, morbid Code(s): E66.01 - MORBID (SEVERE) OBESITY DUE TO EXCESS CALORIES (18) SOB (shortness of breath) Code(s): R06.02 - SHORTNESS OF BREATH (19) Skin rash Code(s): R21 - RASH AND OTHER NONSPECIFIC SKIN ERUPTION (20) Sleep apnea Code(s): G47.30 - SLEEP APNEA, UNSPECIFIED Assessment/Plan A/P COPD CAD s/p CABG h/o MVR Pericardial Effusion SLE Antiphospholipid Syndrome h/o DVT HTN Hyperlipidemia FIGUEROA - inhaled bronchodilators - symbicort - continue anticoagulation - O2 to keep SpO2 >90% - robitussin ac - ac
[2019-02-10] MEDS: guaiFENesin/CODEINE 5 ML UNIT-DOSE CUPS PO PRN (12:38)
--- NOTE | 2019-02-10 13:41 | PN ---
Progress Note, Physician Chief Complaint: patient seen and examined inr is therapeutic complainig of cough at night - Current Medication List Current Medications: Active Medications Acetaminophen (Tylenol -) 650 mg PO Q4H PRN PRN Reason: PAIN LEVEL 1-5 Last Admin: 02/10/19 02:10 Dose: 650 mg Albuterol Sulfate (Ventolin 0.083% Nebulizer Soln -) 1 amp NEB Q4H PRN PRN Reason: SHORT OF BREATH/WHEEZING Albuterol/Ipratropium (Duoneb -) 1 amp NEB RTID [facility] Last Admin: 02/10/19 07:25 Dose: 1 amp Atorvastatin Calcium (Lipitor -) 10 mg PO HS [facility] Last Admin: 02/09/19 22:54 Dose: 10 mg Budesonide/Formoterol Fumarate (Symbicort 160/4.5mcg -) 2 puff IH BID [facility] Last Admin: 02/10/19 09:40 Dose: 2 inhaler Carbidopa/Levodopa (Sinemet *Cr* 25/100 -) 1 combo PO TID [facility] Citalopram Hydrobromide (Celexa -) 20 mg PO DAILY [facility] Last Admin: 02/10/19 09:39 Dose: 20 mg Guaifenesin/Codeine Phosphate (Robitussin Ac -) 10 ml PO Q8H PRN PRN Reason: COUGH Last Admin: 02/10/19 12:38 Dose: 10 ml Cefazolin Sodium 1 gm/ (Dextrose) 50 mls @ 100 mls/hr IVPB Q8H-IV [facility] Last Admin: 02/10/19 09:39 Dose: 100 mls/hr Insulin Aspart (Novolog Vial Sliding Scale -) 1 vial SQ TIDAC [facility]; Protocol Last Admin: 02/10/19 12:25 Dose: Not Given Levothyroxine Sodium (Synthroid -) 25 mcg PO ACBK [facility] Last Admin: 02/10/19 06:11 Dose: 25 mcg Loratadine (Claritin -) 10 mg PO DAILY [facility] Last Admin: 02/10/19 09:38 Dose: 10 mg Metformin HCl (Glucophage -) 1,000 mg PO BID@0700,1630 [facility] Last Admin: 02/10/19 06:23 Dose: Not Given Pancrelipase (Creon Dr 36,000 Units Capsule) 1 cap PO TIDCM [facility] Last Admin: 02/10/19 12:24 Dose: 1 cap Pramipexole Dihydrochloride (Mirapex -) 1.5 mg PO HS [facility] Pramipexole Dihydrochloride (Mirapex -) 0.75 mg PO TID [facility] Topiramate (Topamax -) 100 mg PO BID [facility] Last Admin: 02/10/19 09:38 Dose: 100 mg Torsemide (Demadex -) 100 mg PO DAILY [facility] Last Admin: 02/10/19 09:39 Dose: 100 mg Tramadol HCl (Ultram -) 50 mg PO DAILY [facility] Last Admin: 02/10/19 09:38 Dose: 50 mg Verapamil HCl (Calan Sr -) 240 mg PO DAILY [facility] Last Admin: 02/10/19 09:37 Dose: 240 mg Warfarin Sodium 5 mg/ Warfarin (Sodium 3 mg) 8 mg PO DAILY@1800 [facility] Last Admin: 02/09/19 17:01 Dose: 8 mg - Objective Vital Signs: Vital Signs Temperature 98.2 F 02/10/19 10:00 Pulse Rate 74 02/10/19 10:00 Respiratory Rate 20 02/10/19 10:00 Blood Pressure 138/66 02/10/19 10:00 O2 Sat by Pulse Oximetry (%) 98 02/10/19 10:00 Constitutional: Yes: Calm Cardiovascular: Yes: Regular Rate and Rhythm, S1, S2 Respiratory: Yes: CTA Bilaterally Gastrointestinal: Yes: Normal Bowel Sounds, Soft Extremities: Yes: Other (right foot erythema, swelling much improved and less tender) Labs: CBC, BMP 02/10/19 06:50 02/10/19 06:50 INR, PTT INR 2.55 (0.83-1.09) H 02/10/19 06:50 Problem List - Problems (1) Cellulitis Assessment/Plan: iv abx ancef uric acid normal podaity consult note to do biopsy of left foot lesion tmw short course of steroids for foot swelling- completed Code(s): L03.90 - CELLULITIS, UNSPECIFIED Qualifiers: Site of cellulitis of extremity: lower extremity Laterality: left (2) Atypical chest pain Assessment/Plan: echo done today normal left ventricle thickness and function stress test normal scan mild apical ischemia cardiology on board Code(s): R07.89 - OTHER CHEST PAIN (3) Mitral valve replaced Assessment/Plan: INR 2.5 - 3.5 in range lovenox stopped Code(s): Z95.2 - PRESENCE OF PROSTHETIC HEART VALVE (4) Diabetes Assessment/Plan: inslin hgba1c 7.5 Code(s): E11.9 - TYPE 2 DIABETES MELLITUS WITHOUT COMPLICATIONS Qualifiers: Diabetes mellitus type: type 2 Diabetes mellitus complication status: with neurologic complications (5) Hypothyroid Assessment/Plan: synthroid TSH noted Code(s): E03.9 - HYPOTHYROIDISM, UNSPECIFIED (6) Parkinson disease Assessment/Plan: sinement Code(s): G20 - PARKINSON'S DISEASE Assessment/Plan plan to go to [facility] for PT once podiatry does the biopsy of left foot lesion
--- NOTE | 2019-02-10 13:53 | PN ---
Progress Note (short form) - Note Progress Note: Patient feeling a little better. vss +pigmented lesions left foot dorsum, decreased edema b/l feet pigmented lesion left decreased edema Discussed punch biopsy and patient agreed to it and consented to it today under local anesthesia.
[2019-02-10] MEDS: guaiFENesin/D-METHORPHAN TAB.ER.12H PO SCH ×2 (14:00→22:23)
--- NOTE | 2019-02-10 15:46 | OP ---
Operative Note - Note: Operative Date: 02/10/19 Pre-Operative Diagnosis: neoplasm skin left Operation: punch biopsy 6mm of lesion left foot, silvadene dressing applied Findings: hyperpigmented raised lesion Post-Operative Diagnosis: Same as Pre-op Surgeon: Lopez Sesay Anesthesia: Local (1cc lidocaine 1%) Specimens Removed: punch biopsy 6mm Estimated Blood Loss (mls): 1 Operative Report Dictated: No
[2019-02-10] MEDS ORDERED: WARFARIN NA 5 MG TABLET (UD) ONE (16:45)
[2019-02-10] MEDS ORDERED: WARFARIN NA 3 MG TABLET ONE (16:46)
[2019-02-10] MEDS: WARFARIN NA 5 MG, WARFARIN NA 3 MG PO SCH (17:37)
[2019-02-10] MEDS ORDERED: PRAMIPEXOLE DIHYDROCHLORIDE 1.5 MG TABLET PO SCH (22:00)
[2019-02-10] MEDS: ATORVASTATIN CA 10 MG TABLET (FP) PO SCH (22:23)
--- NOTE | 2019-02-10 23:58 | PN ---
Progress Note, Physician Chief Complaint: sitting in bed sp skin biopsy left foot lesion - Current Medication List Current Medications: Active Medications Acetaminophen (Tylenol -) 650 mg PO Q4H PRN PRN Reason: PAIN LEVEL 1-5 Last Admin: 02/10/19 22:30 Dose: 650 mg Albuterol Sulfate (Ventolin 0.083% Nebulizer Soln -) 1 amp NEB Q4H PRN PRN Reason: SHORT OF BREATH/WHEEZING Albuterol/Ipratropium (Duoneb -) 1 amp NEB RTID [facility] Last Admin: 02/10/19 20:06 Dose: 1 amp Atorvastatin Calcium (Lipitor -) 10 mg PO HS [facility] Last Admin: 02/10/19 22:23 Dose: 10 mg Budesonide/Formoterol Fumarate (Symbicort 160/4.5mcg -) 2 puff IH BID [facility] Last Admin: 02/10/19 22:23 Dose: 2 puff Carbidopa/Levodopa (Sinemet *Cr* 25/100 -) 1 combo PO TID [facility] Last Admin: 02/10/19 22:22 Dose: 1 combo Citalopram Hydrobromide (Celexa -) 20 mg PO DAILY [facility] Last Admin: 02/10/19 09:39 Dose: 20 mg Guaifenesin (Mucinex Dm -) 1 tablet PO BID [facility] Last Admin: 02/10/19 22:23 Dose: 1 tablet Guaifenesin/Codeine Phosphate (Robitussin Ac -) 10 ml PO Q8H PRN PRN Reason: COUGH Last Admin: 02/10/19 12:38 Dose: 10 ml Cefazolin Sodium 1 gm/ (Dextrose) 50 mls @ 100 mls/hr IVPB Q8H-IV [facility] Last Admin: 02/10/19 17:36 Dose: 100 mls/hr Insulin Aspart (Novolog Vial Sliding Scale -) 1 vial SQ TIDAC [facility]; Protocol Last Admin: 02/10/19 16:40 Dose: Not Given Levothyroxine Sodium (Synthroid -) 25 mcg PO ACBK [facility] Last Admin: 02/10/19 06:11 Dose: 25 mcg Loratadine (Claritin -) 10 mg PO DAILY [facility] Last Admin: 02/10/19 09:38 Dose: 10 mg Metformin HCl (Glucophage -) 1,000 mg PO BID@0700,1630 [facility] Last Admin: 02/10/19 16:40 Dose: 1,000 mg Pancrelipase (Creon Dr 36,000 Units Capsule) 1 cap PO TIDCM [facility] Last Admin: 02/10/19 16:44 Dose: 1 cap Pramipexole Dihydrochloride (Mirapex -) 1.5 mg PO HS [facility] Last Admin: 02/10/19 22:23 Dose: 1.5 mg Pramipexole Dihydrochloride (Mirapex -) 0.75 mg PO TID [facility] Last Admin: 02/10/19 22:22 Dose: 0.75 mg Topiramate (Topamax -) 100 mg PO BID [facility] Last Admin: 02/10/19 22:24 Dose: 100 mg Torsemide (Demadex -) 100 mg PO DAILY [facility] Last Admin: 02/10/19 09:39 Dose: 100 mg Tramadol HCl (Ultram -) 50 mg PO DAILY [facility] Last Admin: 02/10/19 09:38 Dose: 50 mg Verapamil HCl (Calan Sr -) 240 mg PO DAILY [facility] Last Admin: 02/10/19 09:37 Dose: 240 mg Warfarin Sodium 5 mg/ Warfarin (Sodium 3 mg) 8 mg PO DAILY@1800 [facility] Last Admin: 02/10/19 17:37 Dose: 8 mg - Objective Vital Signs: Vital Signs Temperature 98.4 F 02/10/19 20:28 Pulse Rate 68 02/10/19 20:28 Respiratory Rate 18 02/10/19 20:28 Blood Pressure 155/63 02/10/19 20:28 O2 Sat by Pulse Oximetry (%) 96 02/10/19 22:00 Constitutional: Yes: Calm Eyes: Yes: EOM Intact HENT: Yes: Normocephalic Neck: Yes: Trachea Midline Cardiovascular: Yes: Regular Rate and Rhythm Respiratory: Yes: Regular Gastrointestinal: Yes: Normal Bowel Sounds ...Rectal Exam: Yes: Deferred Genitourinary: Yes: WNL Musculoskeletal: Yes: Back Pain, Muscle Pain, Muscle Weakness Extremities: Yes: Cool, Erythema, Pallor Edema: No Integumentary: Yes: Rash, Onychomycosis, Venous Stasis Changes Labs: CBC, BMP 02/10/19 06:50 02/10/19 06:50 INR, PTT INR 2.55 (0.83-1.09) H 02/10/19 06:50 Problem List - Problems (1) Atypical chest pain Code(s): R07.89 - OTHER CHEST PAIN (2) Blister (nonthermal), left foot, initial encounter Code(s): S90.822A - BLISTER (NONTHERMAL), LEFT FOOT, INITIAL ENCOUNTER (3) Depression Code(s): F32.9 - MAJOR DEPRESSIVE DISORDER, SINGLE EPISODE, UNSPECIFIED (4) Hypothyroid Code(s): E03.9 - HYPOTHYROIDISM, UNSPECIFIED (5) Abdominal pain, vomiting, and diarrhea Code(s): R10.9 - UNSPECIFIED ABDOMINAL PAIN; R11.10 - VOMITING, UNSPECIFIED; R19.7 - DIARRHEA, UNSPECIFIED (6) Acute bilateral low back pain Code(s): M54.5 - LOW BACK PAIN (7) Afib Code(s): I48.91 - UNSPECIFIED ATRIAL FIBRILLATION Qualifiers: Atrial fibrillation type: paroxysmal Qualified Code(s): I48.0 - Paroxysmal atrial fibrillation (8) Anaphylaxis Code(s): T78.2XXA - ANAPHYLACTIC SHOCK, UNSPECIFIED, INITIAL ENCOUNTER Assessment/Plan Current Active Problems Atypical chest pain (Acute) Blister (nonthermal), left foot, initial encounter (Acute) Depression (Acute) Hypothyroid (Acute) Abnormal Lab Results 02/10/19 02/10/19 02/10/19 06:50 06:50 06:50 WBC 11.5 H PT with INR 30.40 H INR 2.55 H Potassium 3.0 L Anion Gap 4 L BUN 22.8 H Random Glucose 157 H AST 9 L ALT 12 L Total Protein 6.2 L Albumin 3.2 L Laboratory Results - last 24 hr 02/10/19 02/10/19 02/10/19 06:15 06:50 06:50 WBC 11.5 H RBC 4.10 Hgb 11.5 Hct 35.0 MCV 85.3 MCH 28.1 MCHC 33.0 RDW 15.5 Plt Count 281 MPV 9.3 PT with INR 30.40 H INR 2.55 H Sodium Potassium Chloride Carbon Dioxide Anion Gap BUN Creatinine Est GFR (CKD-EPI)AfAm Est GFR (CKD-EPI)NonAf POC Glucometer 160 Random Glucose Calcium Total Bilirubin AST ALT Alkaline Phosphatase Total Protein Albumin 02/10/19 02/10/19 02/10/19 06:50 11:48 16:32 WBC RBC Hgb Hct MCV MCH MCHC RDW Plt Count MPV PT with INR INR Sodium 138 Potassium 3.0 L Chloride 103 Carbon Dioxide 31 Anion Gap 4 L BUN 22.8 H Creatinine 1.1 Est GFR (CKD-EPI)AfAm 60.16 Est GFR (CKD-EPI)NonAf 51.91 POC Glucometer 116 169 Random Glucose 157 H Calcium 8.6 Total Bilirubin 0.2 AST 9 L ALT 12 L Alkaline Phosphatase 93 Total Protein 6.2 L Albumin 3.2 L plan: bgm qid novolog scale dc metformin levemir 12 units am rheumatology consult sle rash etiology ?vasculitis
[2019-02-11] MEDS ORDERED: DEXTROSE 5%-WATER - 50 ML IVPB ONE ×2 (03:17→08:02)
[2019-02-11] MEDS ORDERED: ceFAZolin SODIUM 1 GM VIAL ONE ×2 (03:17→08:02)
[2019-02-11] MEDS: CEFAZOLIN 1 GM in DEXTROSE 5%-WATER - 50 ML IVPB SCH ×2 (03:34→10:06)
[2019-02-11] MEDS: LEVOTHYROXINE NA 25 MCG TABLET (FP) PO SCH (06:01)
[2019-02-11] MEDS: guaiFENesin/CODEINE 5 ML UNIT-DOSE CUPS PO PRN (06:05)
[2019-02-11] MEDS: metFORMIN HCL 500 MG TABLET (FP) PO SCH (06:09)
[2019-02-11] MEDS: PRAMIPEXOLE DIHYDROCHLORIDE 0.25 MG TABLET PO SCH ×2 (06:10→14:42)
[2019-02-11] MEDS: INSULIN SLIDING SCALE (NOVOLOG) 1 VIAL SQ SCH ×2 (06:10→12:14)
[2019-02-11] MEDS ORDERED: PT OWN MED DRAWER 7, Y5N ONE ×2 (06:55→08:02)
[2019-02-11 07:33] LABS: INR 2.3 (0.83-1.09); PROTHROMBIN TIME (PATIENT) 27.4 SEC (9.7-13.0)
[2019-02-11] MEDS: ALBUTEROL SO4 2.5/IPRATROPIUM 0.5 INH SOL 3 ML VIAL.NEB. NEB SCH ×2 (07:50→14:50)
[2019-02-11] MEDS: LIPASE/PROTEASE/AMYLASE 36,000 UNIT CAPSULE PO SCH ×2 (08:06→12:15)
--- NOTE | 2019-02-11 09:26 | DS ---
Physical Examination Vital Signs: Vital Signs Temperature 98.6 F 02/11/19 08:25 Pulse Rate 62 02/11/19 08:25 Respiratory Rate 20 02/11/19 08:25 Blood Pressure 129/59 L 02/11/19 08:25 O2 Sat by Pulse Oximetry (%) 96 02/11/19 08:25 Labs: CBC, BMP 02/10/19 06:50 02/10/19 06:50 Discharge Summary Problems reviewed: Yes Reason For Visit: SHORTNESS OF BREATH Current Active Problems Atypical chest pain (Acute) Blister (nonthermal), left foot, initial encounter (Acute) Depression (Acute) Hypothyroid (Acute) Hospital Course: - Problems (1) Cellulitis Assessment/Plan: dc iv abx ancef uric acid normal podaity consult did biopsy of left foot lesion short course of steroids Code(s): L03.90 - CELLULITIS, UNSPECIFIED Qualifiers: Site of cellulitis of extremity: lower extremity Laterality: left (2) Atypical chest pain Assessment/Plan: echo done today normal left ventricle thickness and function stress test normal scan mild apical ischemia cardiology on board Code(s): R07.89 - OTHER CHEST PAIN (3) Mitral valve replaced Assessment/Plan: INR 2.5 - 3.5 in range lovenox stopped Code(s): Z95.2 - PRESENCE OF PROSTHETIC HEART VALVE (4) Diabetes Assessment/Plan: inslin hgba1c 7.5 Code(s): E11.9 - TYPE 2 DIABETES MELLITUS WITHOUT COMPLICATIONS Qualifiers: Diabetes mellitus type: type 2 Diabetes mellitus complication status: with neurologic complications (5) Hypothyroid Assessment/Plan: synthroid TSH noted Code(s): E03.9 - HYPOTHYROIDISM, UNSPECIFIED (6) Parkinson disease Assessment/Plan: sinement Code(s): G20 - PARKINSON'S DISEASE (7) COPD Assessment/Plan: nebs and steroids Condition: Improved - Instructions Referrals: Jose España MD [Primary Care Provider] - Disposition: [facility] - Home Medications Comprehensive Discharge Medication List: Ambulatory Orders Atorvastatin Ca [Lipitor] 10 mg PO HS 09/11/18 Levothyroxine [Synthroid -] 25 mcg PO DAILY 09/11/18 Lipase/Protease/Amylase [Creon Dr 36,000 Units Capsule] 1 cap PO DAILY 09/11/18 Torsemide 100 mg PO DAILY 09/11/18 Tramadol HCl [Ultram] 50 mg PO DAILY 09/11/18 Carbidopa/Levodopa *Cr* 25/ [Sinemet *Cr* 25/ -] 1 combo PO TID tablet.er 09/18/18 Citalopram Hydrobromide [Celexa -] 20 mg PO DAILY tablet 09/18/18 Pramipexole Dihydrochloride [Mirapex -] 0.75 mg PO TID tablet 09/18/18 Topiramate [Topamax -] 100 mg PO BID tablet 09/18/18 Verapamil HCl ER [Calan Sr -] 240 mg PO DAILY tablet.er 09/18/18 Acetaminophen W/ Codeine #3 [Tylenol # 3 -] 1 - 2 tab PO Q4H 02/04/19 Cetirizine HCl [Zyrtec -] 20 mg PO BID 02/04/19 Warfarin Sodium [Coumadin] 8 mg PO HS 02/04/19 Albuterol 2.5/Ipratropium 0.5 [Duoneb -] 1 amp NEB RTID amp 02/11/19 Budesonide/Formeterol Fumarate [SYMBICORT 160/4.5mcg -] 2 puff IH BID inhaler 02/11/19 Guaifenesin Dm [Mucinex Dm -] 1 tablet PO BID tab.er.12h 02/11/19 Insulin Sliding Scale [Novolog Vial Sliding Scale -] 1 vial SQ TIDAC units Warfarin Na [Coumadin -] 8 mg PO DAILY@1800 tablet 02/11/19 metFORMIN HCL [Glucophage -] 1,000 mg PO BID@0700,1630 tablet 02/11/19
[2019-02-11] MEDS: TORSEMIDE 100 MG TABLET PO SCH (10:05)
[2019-02-11] MEDS: traMADol HCL 50 MG TABLET PO SCH (10:05)
[2019-02-11] MEDS: CITALOPRAM HYDROBROMIDE 20 MG TABLET (FP) PO SCH (10:05)
[2019-02-11] MEDS: TOPIRAMATE 100 MG TABLET PO SCH (10:06)
[2019-02-11] MEDS: LORATADINE 10 MG TABLET PO SCH (10:06)
[2019-02-11] MEDS: guaiFENesin/D-METHORPHAN TAB.ER.12H PO SCH (10:08)
[2019-02-11] MEDS: BUDESONIDE/FORMETEROL FUMARATE 160/4.5 mcg INHALER IH SCH (10:08)
[2019-02-11] MEDS: VERAPAMIL HCL 240 MG E.R. TABLET PO SCH (10:08)
--- NOTE | 2019-02-11 11:23 | PN ---
Progress Note, Physician History of Present Illness: PULMONARY ALERT,COMFORTABLE,SOB IMPROVED,LESS COUGH - Current Medication List Current Medications: Active Medications Acetaminophen (Tylenol -) 650 mg PO Q4H PRN PRN Reason: PAIN LEVEL 1-5 Last Admin: 02/10/19 22:30 Dose: 650 mg Albuterol Sulfate (Ventolin 0.083% Nebulizer Soln -) 1 amp NEB Q4H PRN PRN Reason: SHORT OF BREATH/WHEEZING Albuterol/Ipratropium (Duoneb -) 1 amp NEB RTID [facility] Last Admin: 02/11/19 07:50 Dose: 1 amp Atorvastatin Calcium (Lipitor -) 10 mg PO HS [facility] Last Admin: 02/10/19 22:23 Dose: 10 mg Budesonide/Formoterol Fumarate (Symbicort 160/4.5mcg -) 2 puff IH BID [facility] Last Admin: 02/11/19 10:08 Dose: 2 puff Carbidopa/Levodopa (Sinemet *Cr* 25/100 -) 1 combo PO TID [facility] Last Admin: 02/11/19 05:52 Dose: 1 combo Citalopram Hydrobromide (Celexa -) 20 mg PO DAILY [facility] Last Admin: 02/11/19 10:05 Dose: 20 mg Guaifenesin (Mucinex Dm -) 1 tablet PO BID [facility] Last Admin: 02/11/19 10:08 Dose: 1 tablet Guaifenesin/Codeine Phosphate (Robitussin Ac -) 10 ml PO Q8H PRN PRN Reason: COUGH Last Admin: 02/11/19 06:05 Dose: 10 ml Cefazolin Sodium 1 gm/ (Dextrose) 50 mls @ 100 mls/hr IVPB Q8H-IV [facility] Last Admin: 02/11/19 10:06 Dose: 100 mls/hr Insulin Aspart (Novolog Vial Sliding Scale -) 1 vial SQ TIDAC [facility]; Protocol Last Admin: 02/11/19 06:10 Dose: Not Given Levothyroxine Sodium (Synthroid -) 25 mcg PO ACBK [facility] Last Admin: 02/11/19 06:01 Dose: 25 mcg Loratadine (Claritin -) 10 mg PO DAILY [facility] Last Admin: 02/11/19 10:06 Dose: 10 mg Metformin HCl (Glucophage -) 1,000 mg PO BID@0700,1630 [facility] Last Admin: 02/11/19 06:09 Dose: 1,000 mg Pancrelipase (Creon Dr 36,000 Units Capsule) 1 cap PO TIDCM [facility] Last Admin: 02/11/19 08:06 Dose: 1 cap Pramipexole Dihydrochloride (Mirapex -) 1.5 mg PO HS [facility] Last Admin: 02/10/19 22:23 Dose: 1.5 mg Pramipexole Dihydrochloride (Mirapex -) 0.75 mg PO TID [facility] Last Admin: 02/11/19 06:10 Dose: 0.75 mg Topiramate (Topamax -) 100 mg PO BID [facility] Last Admin: 02/11/19 10:06 Dose: 100 mg Torsemide (Demadex -) 100 mg PO DAILY [facility] Last Admin: 02/11/19 10:05 Dose: 100 mg Tramadol HCl (Ultram -) 50 mg PO DAILY [facility] Last Admin: 02/11/19 10:05 Dose: 50 mg Verapamil HCl (Calan Sr -) 240 mg PO DAILY [facility] Last Admin: 02/11/19 10:08 Dose: 240 mg Warfarin Sodium 5 mg/ Warfarin (Sodium 3 mg) 8 mg PO DAILY@1800 [facility] Last Admin: 02/10/19 17:37 Dose: 8 mg - Objective Vital Signs: Vital Signs Temperature 98.6 F 02/11/19 08:25 Pulse Rate 62 02/11/19 08:25 Respiratory Rate 20 02/11/19 08:25 Blood Pressure 129/59 L 02/11/19 08:25 O2 Sat by Pulse Oximetry (%) 96 02/11/19 08:25 Constitutional: Yes: Well Nourished, Calm Eyes: Yes: WNL HENT: Yes: WNL Neck: Yes: WNL Cardiovascular: Yes: Pulse Irregular, S1, S2 Respiratory: Yes: CTA Bilaterally Gastrointestinal: Yes: Normal Bowel Sounds, Soft Extremities: Yes: WNL, Erythema (ERYTHEMA IMPROVNG) Edema: Yes Labs: CBC, BMP 02/10/19 06:50 02/10/19 06:50 INR, PTT INR 2.30 (0.83-1.09) H 02/11/19 05:20 Problem List - Problems (1) Atypical chest pain Code(s): R07.89 - OTHER CHEST PAIN (2) Blister (nonthermal), left foot, initial encounter Code(s): S90.822A - BLISTER (NONTHERMAL), LEFT FOOT, INITIAL ENCOUNTER (3) Hypothyroid Code(s): E03.9 - HYPOTHYROIDISM, UNSPECIFIED (4) Abdominal pain, vomiting, and diarrhea Code(s): R10.9 - UNSPECIFIED ABDOMINAL PAIN; R11.10 - VOMITING, UNSPECIFIED; R19.7 - DIARRHEA, UNSPECIFIED (5) Afib Code(s): I48.91 - UNSPECIFIED ATRIAL FIBRILLATION Qualifiers: Atrial fibrillation type: paroxysmal Qualified Code(s): I48.0 - Paroxysmal atrial fibrillation (6) Anticoagulated Code(s): Z79.01 - CONTROL SYSTEMS ENGINEER (CURRENT) USE OF ANTICOAGULANTS (7) Asthma with COPD Code(s): J44.9 - CHRONIC OBSTRUCTIVE PULMONARY DISEASE, UNSPECIFIED (8) CAD (coronary artery disease) Code(s): I25.10 - ATHSCL HEART DISEASE OF [place] CORONARY ARTERY W/O ANG PCTRS (9) CHF (congestive heart failure) Code(s): I50.9 - HEART FAILURE, UNSPECIFIED (10) Controlled diabetes mellitus with diabetic peripheral angiopathy without gangrene, with long-term current use of insulin Code(s): E11.51 - TYPE 2 DIABETES W DIABETIC PERIPHERAL ANGIOPATH W/O GANGRENE; Z79.4 - CONTROL SYSTEMS ENGINEER (CURRENT) USE OF INSULIN (11) Diarrhea Code(s): R19.7 - DIARRHEA, UNSPECIFIED (12) Dyslipidemia Code(s): E78.5 - HYPERLIPIDEMIA, UNSPECIFIED (13) Fibromyalgia Code(s): M79.7 - FIBROMYALGIA (14) IDDM (insulin dependent diabetes mellitus) Code(s): E11.9 - TYPE 2 DIABETES MELLITUS WITHOUT COMPLICATIONS; Z79.4 - CONTROL SYSTEMS ENGINEER (CURRENT) USE OF INSULIN (15) Mitral valve replaced Code(s): Z95.2 - PRESENCE OF PROSTHETIC HEART VALVE (16) FIGUEROA (obstructive sleep apnea) Code(s): G47.33 - OBSTRUCTIVE SLEEP APNEA (ADULT) (PEDIATRIC) (17) Obesities, morbid Code(s): E66.01 - MORBID (SEVERE) OBESITY DUE TO EXCESS CALORIES (18) SOB (shortness of breath) Code(s): R06.02 - SHORTNESS OF BREATH (19) Skin rash Code(s): R21 - RASH AND OTHER NONSPECIFIC SKIN ERUPTION (20) Sleep apnea Code(s): G47.30 - SLEEP APNEA, UNSPECIFIED Assessment/Plan A/P COPD CAD s/p CABG h/o MVR Pericardial Effusion SLE Antiphospholipid Syndrome h/o DVT HTN Hyperlipidemia FIGUEROA - inhaled bronchodilators - symbicort - continue anticoagulation - O2 to keep SpO2 >90% - robitussin ac - ac
[2019-02-11 11:26] VITALS: BMI 38.3
--- NOTE | 2019-02-11 12:01 | PN ---
Progress Note (short form) - Note Progress Note: s: no chest pain, palps, dizziness, dyspnea. still has cough Current Medications Acetaminophen (Tylenol -) 650 mg PO Q4H PRN PRN Reason: PAIN LEVEL 1-5 Last Admin: 02/10/19 22:30 Dose: 650 mg Albuterol Sulfate (Ventolin 0.083% Nebulizer Soln -) 1 amp NEB Q4H PRN PRN Reason: SHORT OF BREATH/WHEEZING Albuterol/Ipratropium (Duoneb -) 1 amp NEB RTID [facility] Last Admin: 02/11/19 07:50 Dose: 1 amp Atorvastatin Calcium (Lipitor -) 10 mg PO HS [facility] Last Admin: 02/10/19 22:23 Dose: 10 mg Budesonide/Formoterol Fumarate (Symbicort 160/4.5mcg -) 2 puff IH BID [facility] Last Admin: 02/11/19 10:08 Dose: 2 puff Carbidopa/Levodopa (Sinemet *Cr* 25/100 -) 1 combo PO TID [facility] Last Admin: 02/11/19 05:52 Dose: 1 combo Citalopram Hydrobromide (Celexa -) 20 mg PO DAILY [facility] Last Admin: 02/11/19 10:05 Dose: 20 mg Guaifenesin (Mucinex Dm -) 1 tablet PO BID [facility] Last Admin: 02/11/19 10:08 Dose: 1 tablet Guaifenesin/Codeine Phosphate (Robitussin Ac -) 10 ml PO Q8H PRN PRN Reason: COUGH Last Admin: 02/11/19 06:05 Dose: 10 ml Cefazolin Sodium 1 gm/ (Dextrose) 50 mls @ 100 mls/hr IVPB Q8H-IV [facility] Last Admin: 02/11/19 10:06 Dose: 100 mls/hr Insulin Aspart (Novolog Vial Sliding Scale -) 1 vial SQ TIDAC [facility]; Protocol Last Admin: 02/11/19 06:10 Dose: Not Given Levothyroxine Sodium (Synthroid -) 25 mcg PO ACBK [facility] Last Admin: 02/11/19 06:01 Dose: 25 mcg Loratadine (Claritin -) 10 mg PO DAILY [facility] Last Admin: 02/11/19 10:06 Dose: 10 mg Metformin HCl (Glucophage -) 1,000 mg PO BID@0700,1630 [facility] Last Admin: 02/11/19 06:09 Dose: 1,000 mg Pancrelipase (Creon Dr 36,000 Units Capsule) 1 cap PO TIDCM [facility] Last Admin: 02/11/19 08:06 Dose: 1 cap Pramipexole Dihydrochloride (Mirapex -) 1.5 mg PO HS [facility] Last Admin: 02/10/19 22:23 Dose: 1.5 mg Pramipexole Dihydrochloride (Mirapex -) 0.75 mg PO TID [facility] Last Admin: 02/11/19 06:10 Dose: 0.75 mg Topiramate (Topamax -) 100 mg PO BID [facility] Last Admin: 02/11/19 10:06 Dose: 100 mg Torsemide (Demadex -) 100 mg PO DAILY [facility] Last Admin: 02/11/19 10:05 Dose: 100 mg Tramadol HCl (Ultram -) 50 mg PO DAILY [facility] Last Admin: 02/11/19 10:05 Dose: 50 mg Verapamil HCl (Calan Sr -) 240 mg PO DAILY [facility] Last Admin: 02/11/19 10:08 Dose: 240 mg Warfarin Sodium 5 mg/ Warfarin (Sodium 3 mg) 8 mg PO DAILY@1800 [facility] Last Admin: 02/10/19 17:37 Dose: 8 mg Vital Signs Period Temp Pulse Resp BP Sys/Wise Pulse Ox Last 24 Hr 98.2 F-98.8 F 62-90 16-20 115-155/45-80 96-96 Constitutional: Yes: No Distress, Calm, Obese Cardiovascular: Yes: Regular Rate and Rhythm ([facility] click), S1, S2. No: Gallop, Murmur Respiratory: Yes: Regular, CTA Bilaterally. No: Accessory Muscle Use, Rales, Wheezes Extremities: No: Cold Edema: No Neurological: Yes: Alert, Oriented Psychiatric: No: Agitated Assessment/Plan echo 01/2019 tds, nl LV/RV function, [facility] MVR, sm pericardial effusion <1 cm no tamponade (chronic finding) Nuclear stress 01/2019: Mild apical ischemia tele: sinus, artifact a/p: 68 year old lady with past medical history of COPD on home 02, FIGUEROA (on cpap at home), CAD (s/p single vessel CABG 2006 with RUSSELL to OM and ROSALINA x2 to LAD 12/2011; last cath 06/2014 showed patent RUSSELL, patent LAD stents, no sig residual dz except for 80-90% OM that is bypassed), [facility] mvr ([facility], 2006, on coumadin), anemia, TIA, dCHF, DM, HTN, pafib, antiphospholipid syndrome (on coumadin), fibromyalgia, migraines, chronic atypical cp, obesity, LBP here with blisters on foot. abd pain, diarrhea: -stool cultures sent -plan per pmd foot blisters: -s/p bx with podiatry, manage per primary Atyp CP: -chronic recurrent sx for the pt -MSK features, reproducible on exam--sec to severe coughing fits, +/- fibromyalgia -NST for this cp in 12/2013 and 04/2016 showed no ischemia and prior cath for this persistent cp 06/2014 showed patent graft and prior pci, no significant residual dz - symptoms atypical, chronic, similar to prior episodes which have been extensively evaluated with serial stress tests and cath. Prior cath for similar sx was non-obstx. - No further inpatient cardiac work up planned at this time cad, s/p cabg, pci: -as above -no signs acs -normal lvef -no bb due to copd, on verapamil instead -not on statin due to prior intolerance -given her epistaxis, asa stopped as she is on ac. dizziness: -pt c/o some dizziness at times (not positional, occurs even when laying down still in bed). Persisted even with holding ranexa so not side effect related. Recent holter and echo unremarkable. Continued outpt f/u with neuro, ent. [facility] MVR: -on AC w/ coumadin, target INR 2.5 to 3.5. -echo with normal [facility] mvr function HTN: -bp trend reasonable, wide pulse pressure -same meds, observe pafib: -rare episodes in past -remains in sr -continue verapamil -cont ac with coumadin, has hx of TIA chronic HFpEF: -vol status has been stable on torsemide
[2019-02-11] MEDS ORDERED: predniSONE 20 MG TABLET (UD) PO ONE (13:18)
[2019-02-11] MEDS ORDERED: SIMETHICONE 80 MG TAB.CHEW (FP) PO SCH (14:00)
[2019-02-11 14:51] VITALS: BP 138/66; PULSE 76; TEMP 98.8
--- NOTE | 2019-02-26 09:27 | PATH ---
Surgical Pathology Report Patient Name: MECCA LANG [facility]. Rec. #: [id number] /Age/Gender: 1950 (Age: 68) / F Account: [id number] Location: 4 W TELEMETRY U Taken: 02/11/2019 Received: 02/11/2019 Reported: 02/26/2019 Physicians: Lopez Sesay DPM Specimen(s) Received SKIN PUNCH BIOPSY Clinical History Hyperpigmented raised lesion, 6 and 8-year-old male, tender purple with a left dorsal foot Final Diagnosis LESION, FOOT, LEFT, PUNCH BIOPSY: ERODED SUBEPIDERMAL VESICLE WITH STASIS CHANGES, A FEW EOSINOPHILS AND PERIVASCULAR FIBRIN. SEE COMMENT. Comment: There is perivascular fibrin that is probably secondary to trauma. There is no vasculitis or thrombosis identified. The histologic differential diagnosis includes a traumatized lesion of cell-poor bullous pemphigoid or epidermolysis bullosa acquisita, a bullous arthropod bite reaction, and less likely, a bullous drug eruption. If clinically indicated, a direct immunofluorescence study of perilesional skin would be useful to evaluate the possibility of an autoimmune blistering disorder. There is also background of prominent stasis dermatitis, however this is unlikely to be a stasis blister. This case was sent to Dr. Antolin Gardner from [facility] [place], [place] ([id number]). Electronically Signed Emily Terrazas M.D. Microscopic Description There is focal loss of superficial epidermis associated with a layer of necrotic superficial epidermis, subepidermal fibrin and extravasated erythrocytes in the superficial dermis. In the upper to mid dermis there is proliferation of small blood vessels surrounded by perivascular inflammation. There is a relatively sparse perivascular inflammatory infiltrate with few eosinophils. There is fibrosis and hemosiderin. A PAS stain highlights fibrin around blood vessels unassociated with significant inflammation. Gross Description Received in formalin, labeled with the patient's name and indicated on the requisition to be a left foot lesion, is a 0.5 cm in diameter romo, circular skin punch biopsy excised to a depth of 0.2 cm. The epidermal surface displays a 0.4 x 0.3 cm brown, pigmented skin lesion. The base is inked blue and the specimen is bisected. The specimen is entirely submitted in one cassette. 02/11/2019 saudi02/11/2019
== END 2019-02-11 15:51 | DRG 603 ==
LOC: JER 17:51 → JERBED 20:52 → J4W 02-05 03:36 → OBSVTOIN 02-06 15:26
PROVIDERS: ADMIT Internal Medicine; ATTEND Family Medicine
PROC: 0HBNXZX Excision of Left Foot Skin, External Approach, Diagnostic (ICD-10-PCS; principal; 2019-02-10)
DX: L03.116 Cellulitis of left lower limb (principal); D68.61 Antiphospholipid syndrome; I50.32 Chronic diastolic (congestive) heart failure; I31.3 Pericardial effusion (noninflammatory); J45.909 Unspecified asthma, uncomplicated; I11.0 Hypertensive heart disease with heart failure; J44.9 Chronic obstructive pulmonary disease, unspecified; K57.90 Diverticulosis of intestine, part unspecified, without perforation or abscess without bleeding; K64.9 Unspecified hemorrhoids; I25.10 Atherosclerotic heart disease of native coronary artery without angina pectoris; G47.33 Obstructive sleep apnea (adult) (pediatric); F32.9 Major depressive disorder, single episode, unspecified; S90.822A Blister (nonthermal), left foot, initial encounter; E78.00 Pure hypercholesterolemia, unspecified; I48.91 Unspecified atrial fibrillation; E03.9 Hypothyroidism, unspecified; G43.909 Migraine, unspecified, not intractable, without status migrainosus; I48.0 Paroxysmal atrial fibrillation; E11.65 Type 2 diabetes mellitus with hyperglycemia; R42 Dizziness and giddiness; R07.89 Other chest pain; K59.00 Constipation, unspecified; R19.7 Diarrhea, unspecified; G20 Parkinson's disease; G25.81 Restless legs syndrome; M54.5 Low back pain; M25.572 Pain in left ankle and joints of left foot; M79.7 Fibromyalgia; E66.9 Obesity, unspecified; Z68.38 Body mass index [BMI] 38.0-38.9, adult; M32.9 Systemic lupus erythematosus, unspecified; Z95.5 Presence of coronary angioplasty implant and graft; Z95.2 Presence of prosthetic heart valve; Z86.73 Personal history of transient ischemic attack (TIA), and cerebral infarction without residual deficits; Z95.1 Presence of aortocoronary bypass graft; Z22.322 Carrier or suspected carrier of Methicillin resistant Staphylococcus aureus; Z79.01 Long term (current) use of anticoagulants
CPT/HCPCS: 36415; 71045-TC-FY; 78452-TC; 80048; 80053; 82728; 82803; 82962; 83036; 83540; 83550; 83605; 84443; 84484; 84550; 85025; 85027; 85610; 85730; 87040; 87045; 87046; 87077; 87086; 87324; 87449; 88305-TC; 93005; 93010; 93017; 93306-TC; 93880-TC; 94640; 97116-GP; 97161-GP; 99285-25; A9502; G0378; J2785

== ENCOUNTER 2020-05-19 13:06 | Observation (INO) | payer OTHER ==
[2020-05-19 13:09] VITALS: BMI 36.7
[2020-05-19 15:01] LABS: BASO % 0.6 % (0-2.0); EOS % 1.5 % (0-4.5); HEMATOCRIT 40.9 % (32.4-45.2); HEMOGLOBIN 13.3 GM/dL (10.7-15.3); LYMPH % 22.7 % (8-40); MCHC 32.6 g/dl (32.0-36.0); MEAN PLT VOLUME 10.5 fl (7.5-11.1); MONO % 9.5 % (3.8-10.2); NEUT % 65.7 % (42.8-82.8); PLATELET COUNT 270 K/MM3 (134-434); RBC 4.75 M/mm3 (3.60-5.2); RDW 14.5 % (11.6-15.6)
[2020-05-19 15:09] LABS: INR 2.09 (0.83-1.09); PROTHROMBIN TIME (PATIENT) 24.7 SEC (9.7-13.0)
[2020-05-19 15:11] LABS: ACTIVATED PTT 48.6 SECONDS (25.2-36.5)
[2020-05-19 15:22] LABS: CHLORIDE 104 mmol/L (98-107); POTASSIUM 3.6 mmol/L (3.5-5.1); SODIUM 140 mmol/L (136-145)
[2020-05-19 15:25] LABS: ALBUMIN 3.6 g/dl (3.4-5.0); ANION GAP 9 MMOL/L (8-16); BLOOD UREA NITROGEN 22.5 mg/dL (7-18); CALCIUM 8.8 mg/dL (8.5-10.1); CO2 27 mmol/L (21-32); GLUCOSE,RANDOM 227 mg/dL (74-106); MAGNESIUM 2.3 mg/dL (1.8-2.4)
[2020-05-19 15:28] LABS: CREATININE 1.2 mg/dL (0.55-1.3); SGOT/AST 13 U/L (15-37); SGPT/ALT 12 U/L (13-61)
[2020-05-19 15:30] LABS: BILIRUBIN,TOTAL 0.3 mg/dL (0.2-1); TOT PROT 7.4 g/dl (6.4-8.2)
[2020-05-19 15:31] LABS: ALK PHOS 135 U/L (45-117)
[2020-05-19] MEDS ORDERED: ACETAMINOPHEN 325 MG TABLET (FP) PO PRN (17:05)
[2020-05-19] MEDS ORDERED: WARFARIN NA PO SCH (18:00)
[2020-05-19] MEDS ORDERED: WARFARIN NA 2 MG TABLET PO SCH ×2 (18:00→21:16)
[2020-05-19] MEDS ORDERED: WARFARIN NA 1 MG TABLET ONE (18:32)
[2020-05-19] MEDS ORDERED: MONTELUKAST NA 10 MG TABLET PO SCH (22:00)
[2020-05-19] MEDS ORDERED: WARFARIN NA 5 MG, WARFARIN NA 2 MG PO SCH (22:00)
[2020-05-19] MEDS ORDERED: INSULIN (LEVEMIR) 100 UNITS/ML UNITS SQ SCH (22:00)
[2020-05-19] MEDS ORDERED: ATORVASTATIN CA 10 MG TABLET (FP) PO SCH (22:00)
[2020-05-19] MEDS ORDERED: ATORVASTATIN CA 10 MG TABLET (FP) ONE (22:21)
[2020-05-19] MEDS ORDERED: ENOXAPARIN NA (PORCINE) 100 MG/1 ML DISP.SYRIN SQ ONE (22:22)
[2020-05-19] MEDS ORDERED: MONTELUKAST NA 10 MG TABLET ONE (22:22)
[2020-05-19] MEDS ORDERED: CARBIDOPA/LEVODOPA 25/100 TABLET (FP) ONE (22:22)
[2020-05-19] MEDS: PRAMIPEXOLE DIHYDROCHLORIDE 0.125 MG TABLET PO SCH (22:59)
[2020-05-19] MEDS: ENOXAPARIN NA (PORCINE) 40 MG/0.4 ML DISP.SYRIN SQ SCH (22:59)
[2020-05-19] MEDS: BUDESONIDE/FORMETEROL FUMARATE 160/4.5 mcg INHALER IH SCH (22:59)
[2020-05-19] MEDS: CARBIDOPA/LEVODOPA 25/100 TABLET (FP) PO SCH (22:59)
[2020-05-19] MEDS: INSULIN SLIDING SCALE (NOVOLOG) 1 VIAL SQ SCH (22:59)
[2020-05-20] MEDS ORDERED: CARBIDOPA/LEVODOPA 25/100 TABLET (FP) ONE ×2 (06:19→14:24)
[2020-05-20] MEDS ORDERED: LEVOTHYROXINE NA 25 MCG TABLET (FP) ONE (06:19)
[2020-05-20] MEDS: INSULIN SLIDING SCALE (NOVOLOG) 1 VIAL SQ SCH ×2 (06:26→12:09)
[2020-05-20] MEDS: PRAMIPEXOLE DIHYDROCHLORIDE 0.125 MG TABLET PO SCH ×2 (06:39→14:47)
[2020-05-20] MEDS: CARBIDOPA/LEVODOPA 25/100 TABLET (FP) PO SCH ×2 (06:39→14:47)
[2020-05-20] MEDS ORDERED: LEVOTHYROXINE NA 25 MCG TABLET (FP) PO SCH (07:00)
[2020-05-20] MEDS ORDERED: predniSONE 10 MG TABLET (UD) PO SCH (10:00)
[2020-05-20] MEDS ORDERED: VERAPAMIL HCL 240 MG E.R. TABLET PO SCH (10:00)
[2020-05-20] MEDS ORDERED: CITALOPRAM HYDROBROMIDE 20 MG TABLET PO SCH (10:00)
[2020-05-20] MEDS ORDERED: TORSEMIDE 10 MG TABLET PO SCH (10:00)
[2020-05-20 10:17] LABS: HEMATOCRIT 41.1 % (32.4-45.2); HEMOGLOBIN 13.8 GM/dL (10.7-15.3); MCH 28.4 pg (25.7-33.7); MCHC 33.4 g/dl (32.0-36.0); MEAN PLT VOLUME 9.6 fl (7.5-11.1); PLATELET COUNT 281 K/MM3 (134-434); RBC 4.84 M/mm3 (3.60-5.2); RDW 14.8 % (11.6-15.6); WHITE BLOOD COUNT 9.4 K/mm3 (4.0-10.0)
[2020-05-20 10:29] LABS: INR 1.82 (0.83-1.09); PROTHROMBIN TIME (PATIENT) 21.6 SEC (9.7-13.0)
[2020-05-20] MEDS ORDERED: predniSONE 10 MG TABLET (UD) ONE (11:14)
[2020-05-20] MEDS ORDERED: CITALOPRAM HYDROBROMIDE 10 MG TABLET ONE (11:14)
[2020-05-20] MEDS ORDERED: ENOXAPARIN NA (PORCINE) 100 MG/1 ML DISP.SYRIN SQ ONE (11:15)
[2020-05-20] MEDS ORDERED: INSULIN SLIDING SCALE (NOVOLOG) 1 VIAL SQ ONE (11:16)
[2020-05-20 11:23] LABS: ALBUMIN 3.6 g/dl (3.4-5.0); BLOOD UREA NITROGEN 17.7 mg/dL (7-18); CALCIUM 8.8 mg/dL (8.5-10.1); POTASSIUM 3.5 mmol/L (3.5-5.1)
[2020-05-20 11:28] LABS: BILIRUBIN,TOTAL 0.4 mg/dL (0.2-1); TOT PROT 7.7 g/dl (6.4-8.2)
[2020-05-20] MEDS ORDERED: WARFARIN NA 5 MG TABLET ONE (11:33)
[2020-05-20] MEDS: ENOXAPARIN NA (PORCINE) 40 MG/0.4 ML DISP.SYRIN SQ SCH (12:09)
[2020-05-20] MEDS: BUDESONIDE/FORMETEROL FUMARATE 160/4.5 mcg INHALER IH SCH (12:09)
[2020-05-20] MEDS ORDERED: oxyCODONE HCL 5 MG TABLET PO PRN ×2 (13:13)
[2020-05-20] MEDS ORDERED: ACETAMINOPHEN 325 MG TABLET (FP) PO PRN (13:15)
[2020-05-20] MEDS ORDERED: LIDOCAINE 5% TOPICAL PATCH TP SCH (13:30)
[2020-05-20] MEDS ORDERED: PREGABALIN 100 MG CAPSULE PO SCH (14:00)
[2020-05-20 14:01] VITALS: TEMP 97.6
[2020-05-20 15:31] VITALS: BP 138/74; PULSE 84
[2020-05-20] MEDS ORDERED: WARFARIN NA 10 MG TABLET PO SCH (18:00)
[2020-05-20] MEDS ORDERED: LIDOCAINE PATCH REMOVAL MC SCH (22:00)
[2020-05-21] MEDS ORDERED: WARFARIN NA 5 MG TABLET PO SCH (11:03)
[2020-05-21] MEDS ORDERED: WARFARIN NA 2 MG, WARFARIN NA 5 MG PO SCH (18:00)
== END 2020-05-20 18:00 | disposition home or self-care (01) ==
LOC: JER 13:06 → JERBED 15:50
PROVIDERS: ADMIT Family Medicine; ATTEND Family Medicine
PROC: 3E013VG Introduction of Insulin into Subcutaneous Tissue, Percutaneous Approach (ICD-10-PCS; principal; 2020-05-19)
DX: I25.10 Atherosclerotic heart disease of native coronary artery without angina pectoris (principal); I11.0 Hypertensive heart disease with heart failure; J44.9 Chronic obstructive pulmonary disease, unspecified; K57.91 Diverticulosis of intestine, part unspecified, without perforation or abscess with bleeding; G47.33 Obstructive sleep apnea (adult) (pediatric); I48.0 Paroxysmal atrial fibrillation; F32.9 Major depressive disorder, single episode, unspecified; Z86.73 Personal history of transient ischemic attack (TIA), and cerebral infarction without residual deficits; R09.3 Abnormal sputum; E78.5 Hyperlipidemia, unspecified; Z95.2 Presence of prosthetic heart valve; Z99.81 Dependence on supplemental oxygen; M79.7 Fibromyalgia; M54.5 Low back pain; G89.29 Other chronic pain; D64.9 Anemia, unspecified; E66.01 Morbid (severe) obesity due to excess calories; Z68.36 Body mass index [BMI] 36.0-36.9, adult; R05 Cough; K59.00 Constipation, unspecified; Z88.8 Allergy status to other drugs, medicaments and biological substances; Z91.011 Allergy to milk products; Z79.01 Long term (current) use of anticoagulants; R19.7 Diarrhea, unspecified
CPT/HCPCS: 36415; 71046-TC-FY; 80053; 80061; 82550; 82962; 83036; 83721; 83735; 84484; 85025; 85027; 85610; 85730; 93005; 93010; 96372; 99285-25; C9803; G0378; U0003

== ENCOUNTER 2020-08-12 17:44 | Inpatient (IN) | payer OTHER ==
[2020-08-12] MEDS ORDERED: ASPIRIN 325 MG ENTERIC COATED TABLET (FP) PO ONE (20:25)
[2020-08-12] MEDS ORDERED: NITROGLYCERIN SUBLINGUAL 1/150 0.4 MG TAB SL ONE (20:26)
[2020-08-12] MEDS ORDERED: CEFTRIAXONE 1,000 MG in DEXTROSE 5%-WATER - 50 ML IVPB ONE (20:42)
[2020-08-12 20:59] LABS: BASO % 1.1 % (0-2.0); EOS % 2.2 % (0-4.5); HEMATOCRIT 39.1 % (32.4-45.2); HEMOGLOBIN 12.9 GM/dL (10.7-15.3); MCH 28.6 pg (25.7-33.7); MCHC 33.1 g/dl (32.0-36.0); MEAN CELL VOLUME 86.3 fl (80-96); NEUT % 61.7 % (42.8-82.8); PLATELET COUNT 273 K/MM3 (134-434); RBC 4.53 M/mm3 (3.60-5.2); WHITE BLOOD COUNT 9.5 K/mm3 (4.0-10.0)
[2020-08-12 21:14] LABS: INR 2.22 (0.83-1.09); PROTHROMBIN TIME (PATIENT) 26.3 SEC (9.7-13.0)
[2020-08-12 21:17] LABS: CHLORIDE 106 mmol/L (98-107); SODIUM 141 mmol/L (136-145)
[2020-08-12 21:19] LABS: ALBUMIN 3.6 g/dl (3.4-5.0); ANION GAP 7 MMOL/L (8-16); BLOOD UREA NITROGEN 18.2 mg/dL (7-18); CALCIUM 8.9 mg/dL (8.5-10.1); CO2 28 mmol/L (21-32); GLUCOSE,RANDOM 111 mg/dL (74-106)
[2020-08-12] MEDS ORDERED: ASPIRIN 325 MG ENTERIC COATED TABLET (FP) ONE (21:20)
[2020-08-12] MEDS ORDERED: CEFTRIAXONE 1 GM/50 ML BAG ONE (21:21)
[2020-08-12] MEDS ORDERED: NITROGLYCERIN SUBLINGUAL 1/150 0.4 MG TAB ONE ×2 (21:21→21:23)
[2020-08-12 21:22] LABS: SGOT/AST 36 U/L (15-37); SGPT/ALT 20 U/L (13-61)
[2020-08-12 21:24] LABS: BILIRUBIN,TOTAL 0.4 mg/dL (0.2-1); TOT PROT 7.6 g/dl (6.4-8.2)
[2020-08-12 21:25] LABS: ALK PHOS 125 U/L (45-117)
[2020-08-12 21:27] LABS: N-TERMINAL BNP 136.7 pg/ml (5-125)
[2020-08-12 22:02] LABS: EPI CELLS 12 /uL (0-25.1); HYALINE CASTS 1 /uL (0-3.1); PH,URINE 7.5 (5.0-8.0); URINE APPEARANCE CLOUDY; URINE BACTERIA 787 /uL (0-1359); URINE BILIRUBIN NEGATIVE (NEGATIVE); URINE COLOR YELLOW; URINE GLUCOSE (UA) NEGATIVE (NEGATIVE); URINE KETONE NEGATIVE (NEGATIVE); URINE LEUK ESTERASE 3+ (NEGATIVE); URINE NITRITE NEGATIVE (NEGATIVE); URINE PROTEIN NEGATIVE (NEGATIVE); URINE RBC 30 /uL (0-23.9); URINE UROBILINOGEN 0.2 mg/dL (0.2-1.0); URINE WBC 1132 /uL (0-25.8)
[2020-08-13] MEDS ORDERED: WARFARIN NA 10 MG TABLET PO ONE (01:13)
[2020-08-13] MEDS ORDERED: WARFARIN NA 1 MG TABLET PO ONE (01:13)
[2020-08-13] MEDS ORDERED: PATIENT'S OWN MEDICATION (NON-FORMULARY) (Ipratropium/Albuterol Sulfate 1 PUFF Inhaler) IH PRN (07:27)
[2020-08-13 07:32] LABS: BASO % 1.1 % (0-2.0); EOS % 3.1 % (0-4.5); HEMATOCRIT 37.6 % (32.4-45.2); HEMOGLOBIN 12.6 GM/dL (10.7-15.3); LYMPH % 25.9 % (8-40); MCH 28.8 pg (25.7-33.7); MCHC 33.4 g/dl (32.0-36.0); MEAN CELL VOLUME 86.4 fl (80-96); MEAN PLT VOLUME 9.8 fl (7.5-11.1); NEUT % 57.9 % (42.8-82.8); PLATELET COUNT 236 K/MM3 (134-434); RBC 4.35 M/mm3 (3.60-5.2); RDW 15.1 % (11.6-15.6); WHITE BLOOD COUNT 8.4 K/mm3 (4.0-10.0)
[2020-08-13 07:44] LABS: INR 2.11 (0.83-1.09)
[2020-08-13 07:51] LABS: CHLORIDE 104 mmol/L (98-107); SODIUM 140 mmol/L (136-145)
[2020-08-13 07:58] LABS: ALBUMIN 3.3 g/dl (3.4-5.0); BLOOD UREA NITROGEN 17.6 mg/dL (7-18); CALCIUM 8.4 mg/dL (8.5-10.1)
[2020-08-13 07:59] LABS: ANION GAP 8 MMOL/L (8-16); CO2 28 mmol/L (21-32); GLUCOSE,RANDOM 149 mg/dL (74-106)
[2020-08-13 08:02] LABS: BILIRUBIN,TOTAL 0.5 mg/dL (0.2-1); SGOT/AST 24 U/L (15-37); SGPT/ALT 49 U/L (13-61); TOT PROT 6.9 g/dl (6.4-8.2)
[2020-08-13 08:04] LABS: ALK PHOS 120 U/L (45-117)
[2020-08-13] MEDS: INSULIN SLIDING SCALE (NOVOLOG) 1 VIAL SQ SCH ×4 (08:46→21:47)
[2020-08-13] MEDS ORDERED: TOPIRAMATE 100 MG TABLET PO PRN (08:47)
[2020-08-13] MEDS: LEVOTHYROXINE NA 25 MCG TABLET (FP) PO SCH (09:00)
[2020-08-13] MEDS ORDERED: CARBIDOPA/LEVODOPA 25/100 TABLET (FP) ONE (09:25)
[2020-08-13] MEDS ORDERED: LEVOTHYROXINE NA 25 MCG TABLET (FP) ONE (09:25)
[2020-08-13] MEDS ORDERED: DIGOXIN 0.125 MG TABLET (FP) ONE (09:25)
[2020-08-13] MEDS ORDERED: CITALOPRAM HYDROBROMIDE 10 MG TABLET ONE (09:25)
[2020-08-13] MEDS: CEFTRIAXONE 1 GM in DEXTROSE 5%-WATER - 50 ML IVPB SCH (09:45)
[2020-08-13] MEDS: CITALOPRAM HYDROBROMIDE 20 MG TABLET PO SCH (10:02)
[2020-08-13] MEDS: VERAPAMIL HCL 240 MG E.R. TABLET PO SCH (10:02)
[2020-08-13] MEDS: TORSEMIDE 100 MG TABLET PO SCH (10:02)
[2020-08-13] MEDS: DIGOXIN 0.125 MG TABLET (FP) PO SCH (10:02)
[2020-08-13] MEDS: TOPIRAMATE 100 MG TABLET PO SCH ×2 (10:03→22:58)
[2020-08-13] MEDS: BUDESONIDE/FORMETEROL FUMARATE 160/4.5 mcg INHALER IH SCH ×2 (10:03→22:59)
[2020-08-13] MEDS: POTASSIUM CHLORIDE ORAL LIQUID 20 MEQ/15 ML PO SCH (11:00)
[2020-08-13] MEDS ORDERED: POTASSIUM CHLORIDE ORAL LIQUID 20 MEQ/15 ML ONE (11:06)
[2020-08-13] MEDS: LIPASE/PROTEASE/AMYLASE 36,000 UNIT CAPSULE PO SCH ×2 (14:10→20:10)
[2020-08-13 15:41] VITALS: BMI 36.3
[2020-08-13] MEDS: PREGABALIN 100 MG CAPSULE PO SCH ×2 (16:21→21:50)
[2020-08-13] MEDS ORDERED: WARFARIN NA 1 MG TABLET ONE (17:30)
[2020-08-13] MEDS ORDERED: PT OWN MED DRAWER 7, Y5N ONE ×2 (17:30→21:39)
[2020-08-13] MEDS ORDERED: WARFARIN NA 10 MG TABLET ONE (17:30)
[2020-08-13] MEDS: WARFARIN NA 10 MG, WARFARIN NA 1 MG PO SCH (17:36)
[2020-08-13] MEDS: VANCOMYCIN 1 GRAM (PRE-DOCKED) 1,000 MG/250 ML BAG IVPB SCH (17:36)
[2020-08-13] MEDS ORDERED: WARFARIN NA 1 MG TABLET PO SCH (18:00)
[2020-08-13] MEDS: MONTELUKAST NA 10 MG TABLET PO SCH (21:50)
[2020-08-13] MEDS: ATORVASTATIN CA 10 MG TABLET (FP) PO SCH (21:51)
[2020-08-13] MEDS ORDERED: INSULIN (LEVEMIR) 100 UNITS/ML UNITS SQ SCH (22:00)
[2020-08-13] MEDS ORDERED: MELATONIN 5 MG TABLETS PO PRN (22:00)
[2020-08-13] MEDS: FAMOTIDINE 40 MG TABLET PO SCH (22:58)
[2020-08-13] MEDS: MELATONIN 5 MG TABLETS PO PRN (23:00)
[2020-08-14 00:24] LABS: EPI CELLS >36 /uL (0-25.1); HYALINE CASTS 2 /uL (0-3.1); URINE APPEARANCE CLOUDY; URINE BACTERIA 36 /uL (0-1359); URINE BILIRUBIN NEGATIVE (NEGATIVE); URINE COLOR YELLOW; URINE GLUCOSE (UA) NEGATIVE (NEGATIVE); URINE KETONE NEGATIVE (NEGATIVE); URINE LEUK ESTERASE 3+ (NEGATIVE); URINE NITRITE NEGATIVE (NEGATIVE); URINE PROTEIN NEGATIVE (NEGATIVE); URINE RBC 45 /uL (0-23.9); URINE UROBILINOGEN 0.2 mg/dL (0.2-1.0); URINE WBC 459 /uL (0-25.8)
[2020-08-14] MEDS: VANCOMYCIN 1 GRAM (PRE-DOCKED) 1,000 MG/250 ML BAG IVPB SCH (05:15)
[2020-08-14] MEDS: LEVOTHYROXINE NA 25 MCG TABLET (FP) PO SCH (06:28)
[2020-08-14] MEDS: INSULIN SLIDING SCALE (NOVOLOG) 1 VIAL SQ SCH ×4 (06:28→21:10)
[2020-08-14 07:54] LABS: INR 2.79 (0.83-1.09); PROTHROMBIN TIME (PATIENT) 33.3 SEC (9.7-13.0)
[2020-08-14 08:03] LABS: CHOLESTEROL 121 mg/dL (50-200); TRIGLYCERIDES 141 mg/dL (0-150)
[2020-08-14 08:04] LABS: LDL CHOLESTEROL (ONLY SJRH) 73 mg/dL (5-100)
[2020-08-14 08:06] LABS: HDL CHOLESTEROL 25 mg/dL (40-60)
[2020-08-14] MEDS ORDERED: PT OWN MED DRAWER 7, Y5N ONE ×3 (08:46→22:58)
[2020-08-14] MEDS ORDERED: cefTRIAXone SODIUM 1 GM VIAL ONE (09:09)
[2020-08-14] MEDS ORDERED: DEXTROSE 5%-WATER - 50 ML IVPB ONE (09:09)
[2020-08-14] MEDS: CITALOPRAM HYDROBROMIDE 20 MG TABLET PO SCH (09:31)
[2020-08-14] MEDS: PREGABALIN 100 MG CAPSULE PO SCH ×2 (09:31→21:49)
[2020-08-14] MEDS: LIPASE/PROTEASE/AMYLASE 36,000 UNIT CAPSULE PO SCH ×3 (09:32→18:09)
[2020-08-14] MEDS: DIGOXIN 0.125 MG TABLET (FP) PO SCH (09:33)
[2020-08-14] MEDS: TORSEMIDE 100 MG TABLET PO SCH (09:33)
[2020-08-14] MEDS: BUDESONIDE/FORMETEROL FUMARATE 160/4.5 mcg INHALER IH SCH ×3 (09:36→23:07)
[2020-08-14] MEDS: POTASSIUM CHLORIDE ORAL LIQUID 20 MEQ/15 ML PO SCH (09:36)
[2020-08-14] MEDS: CEFTRIAXONE 1 GM in DEXTROSE 5%-WATER - 50 ML IVPB SCH (09:36)
[2020-08-14] MEDS: VERAPAMIL HCL 240 MG E.R. TABLET PO SCH (09:37)
[2020-08-14] MEDS: TOPIRAMATE 100 MG TABLET PO SCH ×2 (09:37→22:59)
[2020-08-14] MEDS ORDERED: WARFARIN NA 10 MG TABLET ONE (17:21)
[2020-08-14] MEDS ORDERED: WARFARIN NA 1 MG TABLET ONE (17:21)
[2020-08-14] MEDS: WARFARIN NA 10 MG, WARFARIN NA 1 MG PO SCH (18:09)
[2020-08-14] MEDS: INSULIN (LEVEMIR) 100 UNITS/ML UNITS SQ SCH (21:43)
[2020-08-14] MEDS: MONTELUKAST NA 10 MG TABLET PO SCH (21:49)
[2020-08-14] MEDS: ATORVASTATIN CA 10 MG TABLET (FP) PO SCH (21:49)
[2020-08-14] MEDS: MELATONIN 5 MG TABLETS PO PRN (22:59)
[2020-08-14] MEDS: FAMOTIDINE 40 MG TABLET PO SCH (23:00)
[2020-08-15] MEDS: INSULIN SLIDING SCALE (NOVOLOG) 1 VIAL SQ SCH ×4 (06:49→22:07)
[2020-08-15] MEDS: INSULIN (LEVEMIR) 100 UNITS/ML UNITS SQ SCH ×2 (06:51→22:08)
[2020-08-15] MEDS: LEVOTHYROXINE NA 25 MCG TABLET (FP) PO SCH (06:55)
[2020-08-15 07:06] LABS: BASO % 0.6 % (0-2.0); EOS % 3.1 % (0-4.5); HEMATOCRIT 36.1 % (32.4-45.2); HEMOGLOBIN 12.3 GM/dL (10.7-15.3); LYMPH % 22.3 % (8-40); MCH 29.2 pg (25.7-33.7); MCHC 34.2 g/dl (32.0-36.0); MEAN CELL VOLUME 85.4 fl (80-96); MEAN PLT VOLUME 9.7 fl (7.5-11.1); MONO % 11.1 % (3.8-10.2); NEUT % 62.9 % (42.8-82.8); PLATELET COUNT 222 K/MM3 (134-434); RBC 4.22 M/mm3 (3.60-5.2); RDW 15.1 % (11.6-15.6); WHITE BLOOD COUNT 8.9 K/mm3 (4.0-10.0)
[2020-08-15 07:12] LABS: INR 3.83 (0.83-1.09); PROTHROMBIN TIME (PATIENT) 44.6 SEC (9.7-13.0)
[2020-08-15 07:26] LABS: CALCIUM 8.5 mg/dL (8.5-10.1)
[2020-08-15 07:29] LABS: CREATININE 1.1 mg/dL (0.55-1.3)
[2020-08-15 07:31] LABS: BILIRUBIN,TOTAL 0.4 mg/dL (0.2-1); TOT PROT 6.4 g/dl (6.4-8.2)
[2020-08-15] MEDS ORDERED: PT OWN MED DRAWER 7, Y5N ONE ×3 (08:25→21:52)
[2020-08-15] MEDS: LIPASE/PROTEASE/AMYLASE 36,000 UNIT CAPSULE PO SCH ×3 (09:05→17:36)
[2020-08-15] MEDS ORDERED: cefTRIAXone SODIUM 1 GM VIAL ONE (09:10)
[2020-08-15] MEDS ORDERED: DEXTROSE 5%-WATER - 50 ML IVPB ONE (09:11)
[2020-08-15] MEDS: POTASSIUM CHLORIDE ORAL LIQUID 20 MEQ/15 ML PO SCH (09:21)
[2020-08-15] MEDS: CEFTRIAXONE 1 GM in DEXTROSE 5%-WATER - 50 ML IVPB SCH (09:21)
[2020-08-15] MEDS: BUDESONIDE/FORMETEROL FUMARATE 160/4.5 mcg INHALER IH SCH ×2 (09:24→22:09)
[2020-08-15] MEDS: CITALOPRAM HYDROBROMIDE 20 MG TABLET PO SCH (09:24)
[2020-08-15] MEDS: PREGABALIN 100 MG CAPSULE PO SCH ×2 (09:24→22:09)
[2020-08-15] MEDS: TORSEMIDE 100 MG TABLET PO SCH (09:28)
[2020-08-15] MEDS: DIGOXIN 0.125 MG TABLET (FP) PO SCH (09:28)
[2020-08-15] MEDS: VERAPAMIL HCL 240 MG E.R. TABLET PO SCH (09:30)
[2020-08-15] MEDS: TOPIRAMATE 100 MG TABLET PO SCH ×2 (09:30→22:08)
[2020-08-15] MEDS: POTASSIUM CHLORIDE TABS 20 MEQ TABLET.ER (FP) PO SCH (14:27)
[2020-08-15] MEDS: WARFARIN NA 10 MG, WARFARIN NA 1 MG PO SCH (17:36)
[2020-08-15] MEDS: ATORVASTATIN CA 10 MG TABLET (FP) PO SCH (22:09)
[2020-08-15] MEDS: FAMOTIDINE 40 MG TABLET PO SCH (22:09)
[2020-08-15] MEDS: MONTELUKAST NA 10 MG TABLET PO SCH (22:09)
[2020-08-15] MEDS: MELATONIN 5 MG TABLETS PO PRN (22:20)
[2020-08-16] MEDS: LEVOTHYROXINE NA 25 MCG TABLET (FP) PO SCH (06:15)
[2020-08-16] MEDS: INSULIN SLIDING SCALE (NOVOLOG) 1 VIAL SQ SCH ×4 (06:15→22:24)
[2020-08-16] MEDS: INSULIN (LEVEMIR) 100 UNITS/ML UNITS SQ SCH ×2 (06:17→22:23)
[2020-08-16 07:29] LABS: CALCIUM 8.9 mg/dL (8.5-10.1)
[2020-08-16 07:30] LABS: BLOOD UREA NITROGEN 22.3 mg/dL (7-18); MAGNESIUM 2.1 mg/dL (1.8-2.4)
[2020-08-16 07:33] LABS: CREATININE 1.2 mg/dL (0.55-1.3)
[2020-08-16] MEDS ORDERED: PT OWN MED DRAWER 7, Y5N ONE ×2 (08:37→21:39)
[2020-08-16] MEDS: LIPASE/PROTEASE/AMYLASE 36,000 UNIT CAPSULE PO SCH ×3 (08:38→16:49)
[2020-08-16] MEDS ORDERED: cefTRIAXone SODIUM 1 GM VIAL ONE (09:33)
[2020-08-16] MEDS ORDERED: DEXTROSE 5%-WATER - 50 ML IVPB ONE (09:33)
[2020-08-16] MEDS: CEFTRIAXONE 1 GM in DEXTROSE 5%-WATER - 50 ML IVPB SCH (09:38)
[2020-08-16] MEDS: POTASSIUM CHLORIDE TABS 20 MEQ TABLET.ER (FP) PO SCH (09:39)
[2020-08-16] MEDS: VERAPAMIL HCL 240 MG E.R. TABLET PO SCH (09:39)
[2020-08-16] MEDS: PREGABALIN 100 MG CAPSULE PO SCH ×2 (09:39→22:14)
[2020-08-16] MEDS: CITALOPRAM HYDROBROMIDE 20 MG TABLET PO SCH (09:39)
[2020-08-16] MEDS: TOPIRAMATE 100 MG TABLET PO SCH ×2 (09:40→22:13)
[2020-08-16] MEDS: TORSEMIDE 100 MG TABLET PO SCH (09:40)
[2020-08-16] MEDS: BUDESONIDE/FORMETEROL FUMARATE 160/4.5 mcg INHALER IH SCH ×2 (09:40→23:16)
[2020-08-16] MEDS: DIGOXIN 0.125 MG TABLET (FP) PO SCH (09:54)
[2020-08-16 13:37] LABS: INR 3.17 (0.83-1.09); PROTHROMBIN TIME (PATIENT) 37.1 SEC (9.7-13.0)
[2020-08-16] MEDS ORDERED: WARFARIN NA 1 MG TABLET ONE (16:52)
[2020-08-16] MEDS ORDERED: WARFARIN NA 10 MG TABLET ONE (16:52)
[2020-08-16] MEDS ORDERED: WARFARIN NA 2 MG TABLET ONE (17:24)
[2020-08-16] MEDS ORDERED: WARFARIN NA 5 MG TABLET ONE (17:24)
[2020-08-16] MEDS: WARFARIN NA 5 MG, WARFARIN NA 2 MG PO SCH (17:31)
[2020-08-16] MEDS ORDERED: WARFARIN NA 2 MG TABLET PO SCH (18:00)
[2020-08-16] MEDS: MONTELUKAST NA 10 MG TABLET PO SCH (22:13)
[2020-08-16] MEDS: MELATONIN 5 MG TABLETS PO PRN (22:14)
[2020-08-16] MEDS: ATORVASTATIN CA 10 MG TABLET (FP) PO SCH (22:14)
[2020-08-16] MEDS: FAMOTIDINE 40 MG TABLET PO SCH (22:15)
[2020-08-17] MEDS: INSULIN (LEVEMIR) 100 UNITS/ML UNITS SQ SCH ×2 (06:23→21:39)
[2020-08-17] MEDS: INSULIN SLIDING SCALE (NOVOLOG) 1 VIAL SQ SCH ×4 (06:23→21:39)
[2020-08-17] MEDS: LEVOTHYROXINE NA 25 MCG TABLET (FP) PO SCH (06:26)
[2020-08-17 07:44] LABS: INR 2.44 (0.83-1.09); PROTHROMBIN TIME (PATIENT) 28.8 SEC (9.7-13.0)
[2020-08-17 07:51] LABS: HEMATOCRIT 36.2 % (32.4-45.2); MCH 28.5 pg (25.7-33.7); MCHC 33.1 g/dl (32.0-36.0); MEAN CELL VOLUME 86.2 fl (80-96); MEAN PLT VOLUME 9.9 fl (7.5-11.1); PLATELET COUNT 236 K/MM3 (134-434); RDW 15.3 % (11.6-15.6); WHITE BLOOD COUNT 9.2 K/mm3 (4.0-10.0)
[2020-08-17 08:00] LABS: CALCIUM 8.9 mg/dL (8.5-10.1)
[2020-08-17 08:01] LABS: BLOOD UREA NITROGEN 22.9 mg/dL (7-18); MAGNESIUM 2.3 mg/dL (1.8-2.4)
[2020-08-17 08:04] LABS: CREATININE 1.1 mg/dL (0.55-1.3)
[2020-08-17] MEDS ORDERED: PT OWN MED DRAWER 7, Y5N ONE ×3 (08:19→21:27)
[2020-08-17] MEDS ORDERED: WARFARIN NA 5 MG TABLET ONE (08:50)
[2020-08-17] MEDS ORDERED: WARFARIN NA 2 MG TABLET ONE (08:50)
[2020-08-17] MEDS ORDERED: DEXTROSE 5%-WATER - 50 ML IVPB ONE (08:51)
[2020-08-17] MEDS ORDERED: cefTRIAXone SODIUM 1 GM VIAL ONE (08:51)
[2020-08-17] MEDS: CEFTRIAXONE 1 GM in DEXTROSE 5%-WATER - 50 ML IVPB SCH (09:01)
[2020-08-17] MEDS: TORSEMIDE 100 MG TABLET PO SCH (09:01)
[2020-08-17] MEDS: POTASSIUM CHLORIDE TABS 20 MEQ TABLET.ER (FP) PO SCH (09:02)
[2020-08-17] MEDS: PREGABALIN 100 MG CAPSULE PO SCH ×2 (09:02→21:38)
[2020-08-17] MEDS: CITALOPRAM HYDROBROMIDE 20 MG TABLET PO SCH (09:02)
[2020-08-17] MEDS: DIGOXIN 0.125 MG TABLET (FP) PO SCH (09:02)
[2020-08-17] MEDS: BUDESONIDE/FORMETEROL FUMARATE 160/4.5 mcg INHALER IH SCH ×2 (09:04→21:40)
[2020-08-17] MEDS: LIPASE/PROTEASE/AMYLASE 36,000 UNIT CAPSULE PO SCH ×3 (10:52→17:13)
[2020-08-17] MEDS: TOPIRAMATE 100 MG TABLET PO SCH ×2 (10:54→21:38)
[2020-08-17] MEDS: VERAPAMIL HCL 240 MG E.R. TABLET PO SCH (10:54)
[2020-08-17] MEDS: ACETAMINOPHEN 325 MG TABLET (FP) PO PRN (14:04)
[2020-08-17] MEDS: WARFARIN NA 5 MG, WARFARIN NA 2 MG PO SCH (17:13)
[2020-08-17] MEDS: MONTELUKAST NA 10 MG TABLET PO SCH (21:37)
[2020-08-17] MEDS: ATORVASTATIN CA 10 MG TABLET (FP) PO SCH (21:38)
[2020-08-17] MEDS: FAMOTIDINE 40 MG TABLET PO SCH (21:39)
[2020-08-17] MEDS: MELATONIN 5 MG TABLETS PO PRN (23:05)
[2020-08-18] MEDS ORDERED: PT OWN MED DRAWER 7, Y5N ONE ×3 (06:48→08:53)
[2020-08-18] MEDS: INSULIN (LEVEMIR) 100 UNITS/ML UNITS SQ SCH (06:49)
[2020-08-18] MEDS: LEVOTHYROXINE NA 25 MCG TABLET (FP) PO SCH (06:50)
[2020-08-18] MEDS: INSULIN SLIDING SCALE (NOVOLOG) 1 VIAL SQ SCH ×2 (06:50→11:43)
[2020-08-18 07:35] LABS: INR 2.14 (0.83-1.09); PROTHROMBIN TIME (PATIENT) 25.7 SEC (9.7-13.0)
[2020-08-18] MEDS: LIPASE/PROTEASE/AMYLASE 36,000 UNIT CAPSULE PO SCH ×2 (08:19→11:55)
[2020-08-18] MEDS: ACETAMINOPHEN 325 MG TABLET (FP) PO PRN (08:42)
[2020-08-18] MEDS ORDERED: DEXTROSE 5%-WATER - 50 ML IVPB ONE (08:53)
[2020-08-18] MEDS ORDERED: cefTRIAXone SODIUM 1 GM VIAL ONE (08:53)
[2020-08-18 09:15] VITALS: BP 123/56; PULSE 61; TEMP 98
[2020-08-18] MEDS: CEFTRIAXONE 1 GM in DEXTROSE 5%-WATER - 50 ML IVPB SCH (09:16)
[2020-08-18] MEDS: POTASSIUM CHLORIDE TABS 20 MEQ TABLET.ER (FP) PO SCH (09:17)
[2020-08-18] MEDS: PREGABALIN 100 MG CAPSULE PO SCH (09:17)
[2020-08-18] MEDS: TORSEMIDE 100 MG TABLET PO SCH (09:17)
[2020-08-18] MEDS: CITALOPRAM HYDROBROMIDE 20 MG TABLET PO SCH (09:17)
[2020-08-18] MEDS: BUDESONIDE/FORMETEROL FUMARATE 160/4.5 mcg INHALER IH SCH (09:18)
[2020-08-18] MEDS: VERAPAMIL HCL 240 MG E.R. TABLET PO SCH (09:31)
[2020-08-18] MEDS: TOPIRAMATE 100 MG TABLET PO SCH (09:32)
[2020-08-18] MEDS: DIGOXIN 0.125 MG TABLET (FP) PO SCH (11:32)
== END 2020-08-18 14:02 | disposition home health service (06) | DRG 690 ==
LOC: JER 17:44 → JERBED 22:04 → J4S 08-13 14:43
PROVIDERS: ADMIT Hospitalist; ATTEND Family Medicine
DX: N39.0 Urinary tract infection, site not specified (principal); I50.32 Chronic diastolic (congestive) heart failure; D68.61 Antiphospholipid syndrome; I31.3 Pericardial effusion (noninflammatory); J44.9 Chronic obstructive pulmonary disease, unspecified; Z99.81 Dependence on supplemental oxygen; G47.33 Obstructive sleep apnea (adult) (pediatric); I25.10 Atherosclerotic heart disease of native coronary artery without angina pectoris; Z95.1 Presence of aortocoronary bypass graft; I11.0 Hypertensive heart disease with heart failure; I48.0 Paroxysmal atrial fibrillation; M79.7 Fibromyalgia; G43.909 Migraine, unspecified, not intractable, without status migrainosus; E66.9 Obesity, unspecified; Z95.2 Presence of prosthetic heart valve; Z79.01 Long term (current) use of anticoagulants; R31.9 Hematuria, unspecified; E11.9 Type 2 diabetes mellitus without complications; Z79.4 Long term (current) use of insulin; R07.89 Other chest pain; Z68.36 Body mass index [BMI] 36.0-36.9, adult; R31.0 Gross hematuria; E03.9 Hypothyroidism, unspecified; E11.40 Type 2 diabetes mellitus with diabetic neuropathy, unspecified
CPT/HCPCS: 36415; 71046-TC-FY; 80048; 80053; 80061; 80162; 81003; 82962; 83036; 83721; 83735; 83880; 84484; 85025; 85027; 85610; 87040; 87077; 87081; 87086; 93005; 93010; 93306-TC; 99285-25; C9803; U0003; U0005

== ENCOUNTER 2021-08-20 13:13 | Inpatient (IN) | payer OTHER ==
[2021-08-20] MEDS ORDERED: DEXAMETHASONE SOD PHOSPHATE 10 MG/1 ML VIAL IVPUSH ONE (14:23)
[2021-08-20] MEDS: ALBUTEROL SO4 2.5/IPRATROPIUM 0.5 INH SOL 3 ML VIAL.NEB. NEB SCH ×4 (14:35→15:25)
[2021-08-20] MEDS ORDERED: methylPREDNISolone NA SUCC 125 MG/2 ML VIAL IVPUSH ONE (15:00)
[2021-08-20] MEDS ORDERED: methylPREDNISolone NA SUCC 125 MG/2 ML VIAL ONE (15:01)
[2021-08-20] MEDS ORDERED: ALBUTEROL SO4 2.5/IPRATROPIUM 0.5 INH SOL 3 ML VIAL.NEB. NEB ONE (15:01)
[2021-08-20 16:32] LABS: BASO % 0.9 % (0-2.0); EOS % 3.3 % (0-4.5); HEMATOCRIT 36.9 % (32.4-45.2); HEMOGLOBIN 12.5 GM/dL (10.7-15.3); LYMPH % 39.6 % (8-40); MCH 28.6 pg (25.7-33.7); MCHC 33.8 g/dl (32.0-36.0); MEAN CELL VOLUME 84.5 fl (80-96); MEAN PLT VOLUME 9.7 fl (7.5-11.1); MONO % 15.1 % (3.8-10.2); NEUT % 41.1 % (42.8-82.8); PLATELET COUNT 239 10^3/uL (134-434); RBC 4.37 M/mm3 (3.60-5.2); RDW 14.6 % (11.6-15.6); WHITE BLOOD COUNT 6.9 K/mm3 (4.0-10.0)
[2021-08-20 16:37] LABS: INR 2.38 (0.83-1.09); PROTHROMBIN TIME (PATIENT) 27.6 SEC (9.7-13.0)
[2021-08-20 16:40] LABS: ACTIVATED PTT 53.3 SECONDS (25.2-36.5)
[2021-08-20 16:52] LABS: ALBUMIN 3.8 g/dl (3.4-5.0); BLOOD UREA NITROGEN 20.9 mg/dL (7-18); CALCIUM 8.9 mg/dL (8.5-10.1)
[2021-08-20] MEDS ORDERED: POTASSIUM CHLORIDE TABS 20 MEQ TABLET.ER (FP) PO ONE ×2 (16:54→18:06)
[2021-08-20 16:56] LABS: CREATININE 2.4 mg/dL (0.55-1.3)
[2021-08-20 16:57] LABS: BILIRUBIN,TOTAL 0.4 mg/dL (0.2-1); TOT PROT 8.1 g/dl (6.4-8.2)
[2021-08-20] MEDS ORDERED: LACTATED RINGERS SOLUTION 1000 ML INFUS.BAG IV ONE (17:26)
[2021-08-20] MEDS ORDERED: KCL 10 MEQ IVPB 10 MEQ/100 ML INFUS.BAG IVPB ONE (18:06)
[2021-08-20] MEDS: KCL 10 MEQ IVPB 10 MEQ/100 ML INFUS.BAG IVPB SCH (18:21)
[2021-08-20] MEDS ORDERED: LACTATED RINGERS SOLUTION 1,000 ML IV SCH (20:30)
[2021-08-20] MEDS ORDERED: AZITHROMYCIN IVPB 500 MG/250 ML BAG IVPB ONE ×2 (20:30→21:17)
[2021-08-20] MEDS ORDERED: HEPARIN NA (PORCINE) 5,000 UNITS/ML 1ML VIAL IVPUSH PRN ×2 (20:35)
[2021-08-20] MEDS: INSULIN SLIDING SCALE (NOVOLOG) 1 VIAL SQ SCH (22:00)
[2021-08-20] MEDS ORDERED: HEPARIN INFUSION - 25,000 UNITS/500 ML INFUS.BAG IVPB ONE (23:44)
[2021-08-20] MEDS: HEPARIN INFUSION - 25,000 UNITS/500 ML INFUS.BAG IVPB SCH (23:55)
[2021-08-21 01:44] LABS: EPI CELLS 8 /uL (0-25.1); HYALINE CASTS 2 /uL (0-3.1); PH,URINE 5.5 (5.0-8.0); URINE APPEARANCE CLEAR; URINE BACTERIA 219 /uL (0-1359); URINE BILIRUBIN NEGATIVE (NEGATIVE); URINE COLOR YELLOW; URINE GLUCOSE (UA) TRACE (NEGATIVE); URINE KETONE NEGATIVE (NEGATIVE); URINE LEUK ESTERASE NEGATIVE (NEGATIVE); URINE NITRITE NEGATIVE (NEGATIVE); URINE PROTEIN 2+ (NEGATIVE); URINE UROBILINOGEN 0.2 mg/dL (0.2-1.0); URINE WBC 35 /uL (0-25.8)
[2021-08-21] MEDS ORDERED: methylPREDNISolone NA SUCC 40 MG/1 ML VIAL ONE ×3 (02:31→16:48)
[2021-08-21] MEDS ORDERED: ATORVASTATIN CA 10 MG TABLET (FP) ONE ×2 (02:31→22:02)
[2021-08-21] MEDS ORDERED: CARBIDOPA/LEVODOPA 25/100 TABLET (FP) ONE ×2 (02:31→22:02)
[2021-08-21] MEDS ORDERED: FAMOTIDINE 10 MG TABLET ONE ×2 (02:31→22:02)
[2021-08-21] MEDS: FAMOTIDINE 10 MG TABLET PO SCH ×2 (02:44→22:29)
[2021-08-21] MEDS: ATORVASTATIN CA 10 MG TABLET (FP) PO SCH ×2 (02:44→22:29)
[2021-08-21] MEDS: methylPREDNISolone NA SUCC 40 MG/1 ML VIAL IVPUSH SCH ×3 (03:10→18:16)
[2021-08-21] MEDS ORDERED: WARFARIN NA 10 MG TABLET PO STA (03:44)
[2021-08-21] MEDS ORDERED: LACTATED RINGERS SOLUTION 1,000 ML IV SCH (03:45)
[2021-08-21] MEDS ORDERED: WARFARIN NA 10 MG, WARFARIN NA 1 MG PO ONE (04:00)
[2021-08-21 07:33] LABS: INR 2.35 (0.83-1.09); PROTHROMBIN TIME (PATIENT) 27.3 SEC (9.7-13.0)
[2021-08-21 07:39] LABS: CALCIUM 8.7 mg/dL (8.5-10.1)
[2021-08-21 07:40] LABS: BLOOD UREA NITROGEN 23.6 mg/dL (7-18); MAGNESIUM 2.3 mg/dL (1.8-2.4)
[2021-08-21 07:41] LABS: HEMATOCRIT 33.5 % (32.4-45.2); HEMOGLOBIN 11.3 GM/dL (10.7-15.3); MCH 28.6 pg (25.7-33.7); MCHC 33.8 g/dl (32.0-36.0); MEAN CELL VOLUME 84.5 fl (80-96); MEAN PLT VOLUME 9.9 fl (7.5-11.1); PLATELET COUNT 253 10^3/uL (134-434); RBC 3.96 M/mm3 (3.60-5.2); RDW 14.1 % (11.6-15.6); WHITE BLOOD COUNT 6.9 K/mm3 (4.0-10.0)
[2021-08-21] MEDS ORDERED: ALBUTEROL SO4 2.5/IPRATROPIUM 0.5 INH SOL 3 ML VIAL.NEB. NEB ONE ×3 (07:41→16:48)
[2021-08-21] MEDS ORDERED: LEVOTHYROXINE NA 25 MCG TABLET (FP) ONE (07:42)
[2021-08-21 07:43] LABS: CREATININE 2.2 mg/dL (0.55-1.3)
[2021-08-21] MEDS: LEVOTHYROXINE NA 25 MCG TABLET (FP) PO SCH (07:45)
[2021-08-21] MEDS: ALBUTEROL SO4 2.5/IPRATROPIUM 0.5 INH SOL 3 ML VIAL.NEB. NEB SCH ×4 (08:00→22:29)
[2021-08-21 08:40] LABS: ACTIVATED PTT 58.3 SECONDS (25.2-36.5)
[2021-08-21] MEDS: INSULIN SLIDING SCALE (NOVOLOG) 1 VIAL SQ SCH ×4 (08:47→22:29)
[2021-08-21] MEDS: HEPARIN INFUSION - 25,000 UNITS/500 ML INFUS.BAG IVPB SCH (09:41)
[2021-08-21] MEDS: KCL 10 MEQ IVPB 10 MEQ/100 ML INFUS.BAG IVPB SCH (09:41)
[2021-08-21] MEDS ORDERED: DIGOXIN 0.125 MG TABLET ONE (10:37)
[2021-08-21] MEDS ORDERED: AZITHROMYCIN IVPB 500 MG/250 ML BAG IVPB ONE (10:38)
[2021-08-21] MEDS: AZITHROMYCIN IVPB 500 MG/250 ML BAG IVPB SCH (10:45)
[2021-08-21] MEDS: DIGOXIN 0.125 MG TABLET PO SCH (10:50)
[2021-08-21] MEDS: VERAPAMIL HCL 240 MG E.R. TABLET PO SCH (11:00)
[2021-08-21] MEDS: SODIUM CHLORIDE 0.45%/POT 20 MEQ/1,000 ML INFUS.BAG IV SCH (12:12)
[2021-08-21] MEDS ORDERED: ALBUTEROL SO4 0.083% IH SOL 2.5 MG/3 ML VIAL.NEB. NEB PRN (12:15)
[2021-08-21] MEDS ORDERED: WARFARIN NA 5 MG TABLET ONE (16:48)
[2021-08-21] MEDS ORDERED: WARFARIN NA 1 MG TABLET ONE (16:48)
[2021-08-21] MEDS ORDERED: WARFARIN NA 10 MG, WARFARIN NA 1 MG PO SCH (18:00)
[2021-08-21] MEDS ORDERED: WARFARIN NA 1 MG TABLET PO SCH (18:00)
[2021-08-21] MEDS: BUDESONIDE/FORMETEROL FUMARATE 160/4.5 mcg INHALER IH SCH (22:53)
[2021-08-22] MEDS ORDERED: methylPREDNISolone NA SUCC 40 MG/1 ML VIAL ONE ×2 (02:22→10:31)
[2021-08-22] MEDS: methylPREDNISolone NA SUCC 40 MG/1 ML VIAL IVPUSH SCH ×3 (03:00→18:31)
[2021-08-22 06:26] LABS: BASO % 0.1 % (0-2.0); HEMOGLOBIN 11.2 GM/dL (10.7-15.3); LYMPH % 6.1 % (8-40); MCHC 32.8 g/dl (32.0-36.0); MEAN CELL VOLUME 85.2 fl (80-96); MEAN PLT VOLUME 9.6 fl (7.5-11.1); MONO % 4.3 % (3.8-10.2); NEUT % 89.5 % (42.8-82.8); PLATELET COUNT 270 10^3/uL (134-434); RBC 3.99 M/mm3 (3.60-5.2); RDW 14.6 % (11.6-15.6); WHITE BLOOD COUNT 13.1 K/mm3 (4.0-10.0)
[2021-08-22 06:34] LABS: INR 3.28 (0.83-1.09); PROTHROMBIN TIME (PATIENT) 38.2 SEC (9.7-13.0)
[2021-08-22 06:37] LABS: ACTIVATED PTT 44.9 SECONDS (25.2-36.5)
[2021-08-22 06:52] LABS: CALCIUM 8.9 mg/dL (8.5-10.1)
[2021-08-22 06:53] LABS: BLOOD UREA NITROGEN 31.7 mg/dL (7-18)
[2021-08-22 06:54] LABS: ALBUMIN 3.2 g/dl (3.4-5.0)
[2021-08-22 06:56] LABS: CREATININE 2.1 mg/dL (0.55-1.3)
[2021-08-22 06:58] LABS: BILIRUBIN,TOTAL 0.2 mg/dL (0.2-1); TOT PROT 7.1 g/dl (6.4-8.2)
[2021-08-22] MEDS ORDERED: INSULIN REGULAR HUMAN 100 UNITS/ML *VIAL ONE (07:39)
[2021-08-22] MEDS ORDERED: LEVOTHYROXINE NA 25 MCG TABLET (FP) ONE (07:39)
[2021-08-22] MEDS: LEVOTHYROXINE NA 25 MCG TABLET (FP) PO SCH (07:45)
[2021-08-22] MEDS: INSULIN SLIDING SCALE (NOVOLOG) 1 VIAL SQ SCH ×4 (07:50→22:13)
[2021-08-22] MEDS: ALBUTEROL SO4 2.5/IPRATROPIUM 0.5 INH SOL 3 ML VIAL.NEB. NEB SCH ×2 (08:10→20:54)
[2021-08-22] MEDS: BUDESONIDE/FORMETEROL FUMARATE 160/4.5 mcg INHALER IH SCH ×2 (10:30→22:13)
[2021-08-22] MEDS ORDERED: AZITHROMYCIN IVPB 500 MG/250 ML BAG IVPB ONE (10:32)
[2021-08-22] MEDS: VERAPAMIL HCL 240 MG E.R. TABLET PO SCH (10:42)
[2021-08-22] MEDS: AZITHROMYCIN IVPB 500 MG/250 ML BAG IVPB SCH (10:51)
[2021-08-22] MEDS: SODIUM CHLORIDE 0.45%/POT 20 MEQ/1,000 ML INFUS.BAG IV SCH (12:16)
[2021-08-22] MEDS: LIPASE/PROTEASE/AMYLASE 36,000 UNIT CAPSULE PO SCH ×2 (12:44→18:31)
[2021-08-22] MEDS ORDERED: WARFARIN NA 5 MG, WARFARIN NA 2 MG PO SCH (18:00)
[2021-08-22] MEDS ORDERED: WARFARIN NA 5 MG TABLET PO SCH ×2 (18:00)
[2021-08-22] MEDS ORDERED: WARFARIN NA 3 MG TABLET ONE (18:27)
[2021-08-22] MEDS ORDERED: WARFARIN NA 5 MG TABLET ONE (18:27)
[2021-08-22] MEDS: WARFARIN NA 5 MG, WARFARIN NA 3 MG PO SCH (18:30)
[2021-08-22] MEDS: ATORVASTATIN CA 10 MG TABLET (FP) PO SCH (22:13)
[2021-08-22] MEDS: MELATONIN 5 MG TABLETS PO PRN (22:13)
[2021-08-22] MEDS: FAMOTIDINE 10 MG TABLET PO SCH (22:13)
[2021-08-23] MEDS: methylPREDNISolone NA SUCC 40 MG/1 ML VIAL IVPUSH SCH ×3 (02:02→17:22)
[2021-08-23] MEDS: LEVOTHYROXINE NA 25 MCG TABLET (FP) PO SCH (06:01)
[2021-08-23] MEDS: INSULIN SLIDING SCALE (NOVOLOG) 1 VIAL SQ SCH ×4 (06:01→21:45)
[2021-08-23] MEDS: ALBUTEROL SO4 2.5/IPRATROPIUM 0.5 INH SOL 3 ML VIAL.NEB. NEB SCH ×4 (07:47→19:29)
[2021-08-23] MEDS: LIPASE/PROTEASE/AMYLASE 36,000 UNIT CAPSULE PO SCH ×3 (08:55→16:48)
[2021-08-23 09:44] LABS: BASO % 0.1 % (0-2.0); HEMATOCRIT 33.2 % (32.4-45.2); HEMOGLOBIN 10.8 GM/dL (10.7-15.3); MCH 27.9 pg (25.7-33.7); MCHC 32.6 g/dl (32.0-36.0); MEAN CELL VOLUME 85.8 fl (80-96); MEAN PLT VOLUME 9.7 fl (7.5-11.1); MONO % 4.3 % (3.8-10.2); NEUT % 88.6 % (42.8-82.8); PLATELET COUNT 263 10^3/uL (134-434); RBC 3.87 M/mm3 (3.60-5.2); RDW 14.7 % (11.6-15.6); WHITE BLOOD COUNT 11.7 K/mm3 (4.0-10.0)
[2021-08-23 09:51] LABS: PROTHROMBIN TIME (PATIENT) 57.5 SEC (9.7-13.0)
[2021-08-23 09:54] LABS: ACTIVATED PTT 47.5 SECONDS (25.2-36.5)
[2021-08-23 10:09] LABS: ALBUMIN 3.1 g/dl (3.4-5.0)
[2021-08-23 10:10] LABS: BLOOD UREA NITROGEN 36.8 mg/dL (7-18); INR 4.92 (0.83-1.09)
[2021-08-23 10:12] LABS: CREATININE 1.8 mg/dL (0.55-1.3)
[2021-08-23 10:14] LABS: BILIRUBIN,TOTAL 0.3 mg/dL (0.2-1); TOT PROT 6.8 g/dl (6.4-8.2)
[2021-08-23] MEDS: VERAPAMIL HCL 240 MG E.R. TABLET PO SCH (10:56)
[2021-08-23] MEDS: BUDESONIDE/FORMETEROL FUMARATE 160/4.5 mcg INHALER IH SCH ×2 (10:57→21:44)
[2021-08-23] MEDS: DIGOXIN 0.125 MG TABLET PO SCH (11:10)
[2021-08-23] MEDS: ACETAMINOPHEN 325 MG TABLET (FP) PO PRN (12:09)
[2021-08-23] MEDS ORDERED: INSULIN (NOVOLOG) ASPART 100 UNITS/ML 10ML VIAL ONE ×2 (12:29→18:57)
[2021-08-23] MEDS: SODIUM CHLORIDE 0.45%/POT 20 MEQ/1,000 ML INFUS.BAG IV SCH (12:34)
[2021-08-23] MEDS: ATORVASTATIN CA 10 MG TABLET (FP) PO SCH (21:44)
[2021-08-23] MEDS: guaiFENesin/D-M SUGAR-FREE/ACLHOL-FREE 5 ML UNIT DOSE PO PRN (21:44)
[2021-08-23] MEDS: MELATONIN 5 MG TABLETS PO PRN (21:44)
[2021-08-23] MEDS: FAMOTIDINE 10 MG TABLET PO SCH (21:44)
[2021-08-23] MEDS: INSULIN (LEVEMIR) 100 UNITS/ML UNITS SQ SCH (21:45)
[2021-08-24] MEDS: methylPREDNISolone NA SUCC 40 MG/1 ML VIAL IVPUSH SCH ×3 (01:41→17:59)
[2021-08-24] MEDS: INSULIN SLIDING SCALE (NOVOLOG) 1 VIAL SQ SCH ×4 (06:20→21:36)
[2021-08-24] MEDS: LEVOTHYROXINE NA 25 MCG TABLET (FP) PO SCH (06:20)
[2021-08-24] MEDS: ALBUTEROL SO4 2.5/IPRATROPIUM 0.5 INH SOL 3 ML VIAL.NEB. NEB SCH ×4 (08:20→20:10)
[2021-08-24] MEDS: LIPASE/PROTEASE/AMYLASE 36,000 UNIT CAPSULE PO SCH ×3 (08:28→17:59)
[2021-08-24 09:21] LABS: HEMATOCRIT 32.4 % (32.4-45.2); HEMOGLOBIN 10.5 GM/dL (10.7-15.3); MCH 27.6 pg (25.7-33.7); MCHC 32.5 g/dl (32.0-36.0); MEAN CELL VOLUME 85.2 fl (80-96); MEAN PLT VOLUME 9.5 fl (7.5-11.1); PLATELET COUNT 260 10^3/uL (134-434); RBC 3.81 M/mm3 (3.60-5.2); RDW 15.1 % (11.6-15.6); WHITE BLOOD COUNT 11.6 K/mm3 (4.0-10.0)
[2021-08-24 09:22] LABS: PROTHROMBIN TIME (PATIENT) 57.4 SEC (9.7-13.0)
[2021-08-24 09:33] LABS: INR 4.91 (0.83-1.09)
[2021-08-24 09:48] LABS: ALBUMIN 2.9 g/dl (3.4-5.0); CALCIUM 8.8 mg/dL (8.5-10.1)
[2021-08-24 09:51] LABS: CREATININE 1.7 mg/dL (0.55-1.3)
[2021-08-24 09:53] LABS: BILIRUBIN,TOTAL 0.3 mg/dL (0.2-1); TOT PROT 6.4 g/dl (6.4-8.2)
[2021-08-24] MEDS: VERAPAMIL HCL 240 MG E.R. TABLET PO SCH (10:21)
[2021-08-24] MEDS: BUDESONIDE/FORMETEROL FUMARATE 160/4.5 mcg INHALER IH SCH ×2 (10:22→21:36)
[2021-08-24] MEDS ORDERED: INSULIN (NOVOLOG) ASPART 100 UNITS/ML 10ML VIAL ONE ×2 (11:37→11:38)
[2021-08-24 13:07] LABS: EPI CELLS 3 /uL (0-25.1); HYALINE CASTS 8 /uL (0-3.1); URINE APPEARANCE TURBID; URINE BACTERIA >9,000 /uL (0-1359); URINE BILIRUBIN NEGATIVE (NEGATIVE); URINE COLOR YELLOW; URINE GLUCOSE (UA) 1+ (NEGATIVE); URINE KETONE NEGATIVE (NEGATIVE); URINE LEUK ESTERASE 2+ (NEGATIVE); URINE NITRITE POSITIVE (NEGATIVE); URINE PROTEIN 1+ (NEGATIVE); URINE UROBILINOGEN 0.2 mg/dL (0.2-1.0); URINE WBC 593 /uL (0-25.8)
[2021-08-24] MEDS: SODIUM CHLORIDE 0.45%/POT 20 MEQ/1,000 ML INFUS.BAG IV SCH ×2 (13:25→19:38)
[2021-08-24 13:29] LABS: URINE RBC 677.9 /uL (0-23.9); YEAST MANY (NEGATIVE)
[2021-08-24] MEDS: WARFARIN NA 5 MG, WARFARIN NA 3 MG PO SCH (17:59)
[2021-08-24] MEDS: ACETAMINOPHEN 325 MG TABLET (FP) PO PRN (20:53)
[2021-08-24] MEDS: FAMOTIDINE 10 MG TABLET PO SCH (21:37)
[2021-08-24] MEDS: ATORVASTATIN CA 10 MG TABLET (FP) PO SCH (21:37)
[2021-08-24] MEDS: INSULIN (LEVEMIR) 100 UNITS/ML UNITS SQ SCH (21:37)
[2021-08-25] MEDS: methylPREDNISolone NA SUCC 40 MG/1 ML VIAL IVPUSH SCH ×3 (01:39→17:28)
[2021-08-25] MEDS: LEVOTHYROXINE NA 25 MCG TABLET (FP) PO SCH (06:20)
[2021-08-25] MEDS: INSULIN SLIDING SCALE (NOVOLOG) 1 VIAL SQ SCH ×4 (06:20→21:34)
[2021-08-25] MEDS: ALBUTEROL SO4 2.5/IPRATROPIUM 0.5 INH SOL 3 ML VIAL.NEB. NEB SCH ×4 (07:57→20:37)
[2021-08-25 09:41] LABS: INR 3.58 (0.83-1.09); PROTHROMBIN TIME (PATIENT) 41.7 SEC (9.7-13.0)
[2021-08-25 09:46] LABS: HEMATOCRIT 33.9 % (32.4-45.2); HEMOGLOBIN 10.9 GM/dL (10.7-15.3); MCH 27.8 pg (25.7-33.7); MCHC 32.3 g/dl (32.0-36.0); MEAN CELL VOLUME 86.2 fl (80-96); MEAN PLT VOLUME 9.8 fl (7.5-11.1); PLATELET COUNT 267 10^3/uL (134-434); RBC 3.93 M/mm3 (3.60-5.2)
[2021-08-25 09:51] LABS: CALCIUM 8.6 mg/dL (8.5-10.1)
[2021-08-25 09:52] LABS: ALBUMIN 2.7 g/dl (3.4-5.0)
[2021-08-25 09:54] LABS: CREATININE 1.6 mg/dL (0.55-1.3)
[2021-08-25] MEDS: LIPASE/PROTEASE/AMYLASE 36,000 UNIT CAPSULE PO SCH ×3 (09:54→17:28)
[2021-08-25 09:55] LABS: BILIRUBIN,TOTAL 0.4 mg/dL (0.2-1)
[2021-08-25 09:56] LABS: TOT PROT 6.4 g/dl (6.4-8.2)
[2021-08-25] MEDS: VERAPAMIL HCL 240 MG E.R. TABLET PO SCH (11:22)
[2021-08-25] MEDS: DIGOXIN 0.125 MG TABLET PO SCH (11:22)
[2021-08-25] MEDS: BUDESONIDE/FORMETEROL FUMARATE 160/4.5 mcg INHALER IH SCH ×2 (11:27→21:35)
[2021-08-25] MEDS: SODIUM CHLORIDE 0.45%/POT 20 MEQ/1,000 ML INFUS.BAG IV SCH ×2 (11:49→18:00)
[2021-08-25] MEDS: ATORVASTATIN CA 10 MG TABLET (FP) PO SCH (21:34)
[2021-08-25] MEDS: INSULIN (LEVEMIR) 100 UNITS/ML UNITS SQ SCH (21:34)
[2021-08-25] MEDS: FAMOTIDINE 10 MG TABLET PO SCH (21:34)
[2021-08-26] MEDS: methylPREDNISolone NA SUCC 40 MG/1 ML VIAL IVPUSH SCH ×3 (02:17→21:44)
[2021-08-26] MEDS: INSULIN SLIDING SCALE (NOVOLOG) 1 VIAL SQ SCH ×4 (06:08→21:44)
[2021-08-26] MEDS: LEVOTHYROXINE NA 25 MCG TABLET (FP) PO SCH (06:09)
[2021-08-26] MEDS: ALBUTEROL SO4 2.5/IPRATROPIUM 0.5 INH SOL 3 ML VIAL.NEB. NEB SCH ×4 (08:00→20:14)
[2021-08-26] MEDS: VERAPAMIL HCL 240 MG E.R. TABLET PO SCH (09:17)
[2021-08-26] MEDS: LIPASE/PROTEASE/AMYLASE 36,000 UNIT CAPSULE PO SCH ×3 (09:17→17:09)
[2021-08-26] MEDS: BUDESONIDE/FORMETEROL FUMARATE 160/4.5 mcg INHALER IH SCH ×2 (09:22→21:44)
[2021-08-26 10:37] LABS: HEMATOCRIT 33.8 % (32.4-45.2); HEMOGLOBIN 10.9 GM/dL (10.7-15.3); MCH 27.7 pg (25.7-33.7); MCHC 32.2 g/dl (32.0-36.0); MEAN CELL VOLUME 85.9 fl (80-96); MEAN PLT VOLUME 9.7 fl (7.5-11.1); PLATELET COUNT 301 10^3/uL (134-434); RBC 3.94 M/mm3 (3.60-5.2); RDW 14.8 % (11.6-15.6); WHITE BLOOD COUNT 11.8 K/mm3 (4.0-10.0)
[2021-08-26 10:39] LABS: HEMATOCRIT 33.7 % (32.4-45.2); MCH 27.5 pg (25.7-33.7); MCHC 32.7 g/dl (32.0-36.0); MEAN CELL VOLUME 84.1 fl (80-96); MEAN PLT VOLUME 9.4 fl (7.5-11.1); PLATELET COUNT 303 10^3/uL (134-434); RBC 4.01 M/mm3 (3.60-5.2); RDW 14.6 % (11.6-15.6); WHITE BLOOD COUNT 12.3 K/mm3 (4.0-10.0)
[2021-08-26 10:47] LABS: INR 2.29 (0.83-1.09); PROTHROMBIN TIME (PATIENT) 26.6 SEC (9.7-13.0)
[2021-08-26 11:01] LABS: CALCIUM 8.8 mg/dL (8.5-10.1)
[2021-08-26 11:02] LABS: ALBUMIN 2.9 g/dl (3.4-5.0); BLOOD UREA NITROGEN 42.2 mg/dL (7-18)
[2021-08-26 11:05] LABS: CREATININE 1.6 mg/dL (0.55-1.3)
[2021-08-26 11:06] LABS: BILIRUBIN,TOTAL 0.4 mg/dL (0.2-1); TOT PROT 6.3 g/dl (6.4-8.2)
[2021-08-26] MEDS ORDERED: INSULIN (NOVOLOG) ASPART 100 UNITS/ML 10ML VIAL ONE (12:24)
[2021-08-26 12:31] LABS: ANISOCYTOSIS 0; MACROCYTOSIS 0
[2021-08-26] MEDS: SODIUM CHLORIDE 0.45%/POT 20 MEQ/1,000 ML INFUS.BAG IV SCH (12:34)
[2021-08-26] MEDS ORDERED: traMADol HCL 50 MG TABLET PO PRN (16:38)
[2021-08-26] MEDS ORDERED: WARFARIN NA 2 MG TABLET ONE (17:03)
[2021-08-26] MEDS ORDERED: WARFARIN NA 5 MG TABLET ONE (17:03)
[2021-08-26] MEDS: CITALOPRAM HYDROBROMIDE 20 MG TABLET PO SCH (17:08)
[2021-08-26] MEDS: PREGABALIN 100 MG CAPSULE PO SCH ×2 (17:08→21:44)
[2021-08-26] MEDS: TOPIRAMATE 100 MG TABLET PO SCH ×2 (17:09→21:44)
[2021-08-26] MEDS ORDERED: ENOXAPARIN NA (PORCINE) 80 MG/0.8 ML DISP.SYRIN SQ ONE (18:00)
[2021-08-26] MEDS ORDERED: WARFARIN NA 5 MG, WARFARIN NA 2 MG PO SCH (18:00)
[2021-08-26] MEDS: INSULIN (LEVEMIR) 100 UNITS/ML UNITS SQ SCH (21:43)
[2021-08-26] MEDS: FAMOTIDINE 10 MG TABLET PO SCH (21:43)
[2021-08-26] MEDS: ATORVASTATIN CA 10 MG TABLET (FP) PO SCH (21:44)
[2021-08-27] MEDS: INSULIN SLIDING SCALE (NOVOLOG) 1 VIAL SQ SCH ×4 (07:22→22:30)
[2021-08-27] MEDS: LEVOTHYROXINE NA 25 MCG TABLET (FP) PO SCH (07:22)
[2021-08-27] MEDS: ALBUTEROL SO4 2.5/IPRATROPIUM 0.5 INH SOL 3 ML VIAL.NEB. NEB SCH ×4 (07:50→20:05)
[2021-08-27 08:52] LABS: HEMOGLOBIN 11.4 GM/dL (10.7-15.3); MCH 27.9 pg (25.7-33.7); MCHC 32.7 g/dl (32.0-36.0); MEAN CELL VOLUME 85.4 fl (80-96); MEAN PLT VOLUME 8.9 fl (7.5-11.1); PLATELET COUNT 296 10^3/uL (134-434); RDW 14.9 % (11.6-15.6); WHITE BLOOD COUNT 16.1 K/mm3 (4.0-10.0)
[2021-08-27 09:20] LABS: CREATININE 1.4 mg/dL (0.55-1.3)
[2021-08-27 09:21] LABS: ALBUMIN 2.7 g/dl (3.4-5.0); BLOOD UREA NITROGEN 40.8 mg/dL (7-18); CALCIUM 8.8 mg/dL (8.5-10.1)
[2021-08-27 09:22] LABS: BILIRUBIN,TOTAL 0.4 mg/dL (0.2-1); TOT PROT 6.1 g/dl (6.4-8.2)
[2021-08-27] MEDS: LIPASE/PROTEASE/AMYLASE 36,000 UNIT CAPSULE PO SCH ×3 (10:46→17:24)
[2021-08-27] MEDS: DIGOXIN 0.125 MG TABLET PO SCH (11:00)
[2021-08-27] MEDS: methylPREDNISolone NA SUCC 40 MG/1 ML VIAL IVPUSH SCH ×2 (11:04→22:30)
[2021-08-27] MEDS: VERAPAMIL HCL 240 MG E.R. TABLET PO SCH (11:04)
[2021-08-27] MEDS: PREGABALIN 100 MG CAPSULE PO SCH ×2 (11:04→22:29)
[2021-08-27] MEDS: TOPIRAMATE 100 MG TABLET PO SCH ×2 (11:04→22:29)
[2021-08-27] MEDS: CITALOPRAM HYDROBROMIDE 20 MG TABLET PO SCH (11:04)
[2021-08-27] MEDS: BUDESONIDE/FORMETEROL FUMARATE 160/4.5 mcg INHALER IH SCH ×2 (11:05→22:30)
[2021-08-27] MEDS ORDERED: INSULIN (NOVOLOG) ASPART 100 UNITS/ML 10ML VIAL ONE (11:21)
[2021-08-27] MEDS: SODIUM CHLORIDE 0.45%/POT 20 MEQ/1,000 ML INFUS.BAG IV SCH (11:24)
[2021-08-27 14:38] LABS: INR 2.23 (0.83-1.09); PROTHROMBIN TIME (PATIENT) 25.9 SEC (9.7-13.0)
[2021-08-27] MEDS ORDERED: ENOXAPARIN NA (PORCINE) 80 MG/0.8 ML DISP.SYRIN SQ ONE (15:30)
[2021-08-27] MEDS: WARFARIN NA 5 MG TABLET PO SCH (17:23)
[2021-08-27] MEDS: ATORVASTATIN CA 10 MG TABLET (FP) PO SCH (22:29)
[2021-08-27] MEDS: FAMOTIDINE 10 MG TABLET PO SCH (22:29)
[2021-08-27] MEDS: MELATONIN 5 MG TABLETS PO PRN (22:30)
[2021-08-27] MEDS: INSULIN (LEVEMIR) 100 UNITS/ML UNITS SQ SCH (22:30)
[2021-08-28] MEDS: INSULIN SLIDING SCALE (NOVOLOG) 1 VIAL SQ SCH ×4 (06:35→21:44)
[2021-08-28] MEDS: LEVOTHYROXINE NA 25 MCG TABLET (FP) PO SCH (06:36)
[2021-08-28 08:38] LABS: INR 2.49 (0.83-1.09); PROTHROMBIN TIME (PATIENT) 28.9 SEC (9.7-13.0)
[2021-08-28] MEDS: ALBUTEROL SO4 2.5/IPRATROPIUM 0.5 INH SOL 3 ML VIAL.NEB. NEB SCH ×4 (08:40→20:06)
[2021-08-28] MEDS: TOPIRAMATE 100 MG TABLET PO SCH ×2 (09:28→21:43)
[2021-08-28] MEDS: VERAPAMIL HCL 240 MG E.R. TABLET PO SCH (09:28)
[2021-08-28] MEDS: CITALOPRAM HYDROBROMIDE 20 MG TABLET PO SCH (09:28)
[2021-08-28] MEDS: PREGABALIN 100 MG CAPSULE PO SCH ×2 (09:28→21:43)
[2021-08-28] MEDS: methylPREDNISolone NA SUCC 40 MG/1 ML VIAL IVPUSH SCH ×2 (09:29→21:44)
[2021-08-28] MEDS: LIPASE/PROTEASE/AMYLASE 36,000 UNIT CAPSULE PO SCH ×3 (09:29→16:54)
[2021-08-28] MEDS: BUDESONIDE/FORMETEROL FUMARATE 160/4.5 mcg INHALER IH SCH ×2 (09:33→21:44)
[2021-08-28] MEDS ORDERED: ENOXAPARIN NA (PORCINE) 80 MG/0.8 ML DISP.SYRIN SQ SCH (10:00)
[2021-08-28] MEDS: SODIUM CHLORIDE 0.45%/POT 20 MEQ/1,000 ML INFUS.BAG IV SCH (12:23)
[2021-08-28] MEDS: WARFARIN NA 5 MG TABLET PO SCH (17:15)
[2021-08-28] MEDS: ATORVASTATIN CA 10 MG TABLET (FP) PO SCH (21:42)
[2021-08-28] MEDS: INSULIN (LEVEMIR) 100 UNITS/ML UNITS SQ SCH (21:43)
[2021-08-28] MEDS: FAMOTIDINE 10 MG TABLET PO SCH (21:43)
[2021-08-28] MEDS: MELATONIN 5 MG TABLETS PO PRN (21:57)
[2021-08-29] MEDS: LEVOTHYROXINE NA 25 MCG TABLET (FP) PO SCH (06:48)
[2021-08-29] MEDS: INSULIN SLIDING SCALE (NOVOLOG) 1 VIAL SQ SCH ×4 (06:50→22:34)
[2021-08-29] MEDS: ALBUTEROL SO4 2.5/IPRATROPIUM 0.5 INH SOL 3 ML VIAL.NEB. NEB SCH (08:30)
[2021-08-29 09:48] LABS: HEMATOCRIT 34.4 % (32.4-45.2); HEMOGLOBIN 11.2 GM/dL (10.7-15.3); MCH 27.9 pg (25.7-33.7); MCHC 32.6 g/dl (32.0-36.0); MEAN CELL VOLUME 85.6 fl (80-96); MEAN PLT VOLUME 9.5 fl (7.5-11.1); PLATELET COUNT 323 10^3/uL (134-434); RBC 4.02 M/mm3 (3.60-5.2)
[2021-08-29 09:50] LABS: INR 3.61 (0.83-1.09); PROTHROMBIN TIME (PATIENT) 42.1 SEC (9.7-13.0)
[2021-08-29] MEDS ORDERED: methylPREDNISolone NA SUCC 40 MG/1 ML VIAL IVPUSH SCH (10:00)
[2021-08-29] MEDS: VERAPAMIL HCL 240 MG E.R. TABLET PO SCH (10:08)
[2021-08-29] MEDS: TOPIRAMATE 100 MG TABLET PO SCH ×2 (10:08→22:37)
[2021-08-29] MEDS: LIPASE/PROTEASE/AMYLASE 36,000 UNIT CAPSULE PO SCH ×3 (10:08→16:38)
[2021-08-29] MEDS: CITALOPRAM HYDROBROMIDE 20 MG TABLET PO SCH (10:08)
[2021-08-29] MEDS: DIGOXIN 0.125 MG TABLET PO SCH (10:09)
[2021-08-29] MEDS: BUDESONIDE/FORMETEROL FUMARATE 160/4.5 mcg INHALER IH SCH ×2 (10:11→22:39)
[2021-08-29] MEDS: PREGABALIN 100 MG CAPSULE PO SCH ×2 (10:11→22:38)
[2021-08-29 10:16] LABS: ALBUMIN 2.6 g/dl (3.4-5.0); BLOOD UREA NITROGEN 46.6 mg/dL (7-18); CALCIUM 8.8 mg/dL (8.5-10.1)
[2021-08-29 10:17] LABS: MAGNESIUM 2.1 mg/dL (1.8-2.4)
[2021-08-29 10:19] LABS: CREATININE 1.5 mg/dL (0.55-1.3); PHOSPHOROUS 4.3 mg/dL (2.5-4.9)
[2021-08-29 10:21] LABS: BILIRUBIN,TOTAL 0.3 mg/dL (0.2-1); TOT PROT 5.8 g/dl (6.4-8.2)
[2021-08-29 10:29] LABS: ANISOCYTOSIS 1+; MACROCYTOSIS 0
[2021-08-29] MEDS: SODIUM ZIRCONIUM CYCLOSILICATE (LOKELMA) 5 GM PACKET PO SCH (16:37)
[2021-08-29] MEDS ORDERED: WARFARIN NA 3 MG TABLET PO SCH (18:00)
[2021-08-29] MEDS ORDERED: INSULIN (NOVOLOG) ASPART 100 UNITS/ML 10ML VIAL ONE (19:44)
[2021-08-29] MEDS: INSULIN (LEVEMIR) 100 UNITS/ML UNITS SQ SCH (22:35)
[2021-08-29] MEDS: FAMOTIDINE 10 MG TABLET PO SCH (22:37)
[2021-08-29] MEDS: ATORVASTATIN CA 10 MG TABLET (FP) PO SCH (22:38)
[2021-08-29] MEDS: MELATONIN 5 MG TABLETS PO PRN (22:38)
[2021-08-29] MEDS: ACETAMINOPHEN 325 MG TABLET (FP) PO PRN (22:39)
[2021-08-29] MEDS: predniSONE 20 MG TABLET (UD) PO SCH (22:41)
[2021-08-29] MEDS: guaiFENesin/D-M SUGAR-FREE/ACLHOL-FREE 5 ML UNIT DOSE PO PRN (23:23)
[2021-08-30] MEDS: INSULIN SLIDING SCALE (NOVOLOG) 1 VIAL SQ SCH ×4 (06:13→22:53)
[2021-08-30] MEDS: LEVOTHYROXINE NA 25 MCG TABLET (FP) PO SCH (06:13)
[2021-08-30 08:36] LABS: INR 3.85 (0.83-1.09); PROTHROMBIN TIME (PATIENT) 44.9 SEC (9.7-13.0)
[2021-08-30] MEDS: LIPASE/PROTEASE/AMYLASE 36,000 UNIT CAPSULE PO SCH ×3 (09:05→17:47)
[2021-08-30] MEDS: predniSONE 20 MG TABLET (UD) PO SCH ×2 (09:27→22:51)
[2021-08-30] MEDS: VERAPAMIL HCL 240 MG E.R. TABLET PO SCH (09:27)
[2021-08-30] MEDS: BUDESONIDE/FORMETEROL FUMARATE 160/4.5 mcg INHALER IH SCH ×2 (09:27→22:54)
[2021-08-30] MEDS: SODIUM ZIRCONIUM CYCLOSILICATE (LOKELMA) 5 GM PACKET PO SCH (09:27)
[2021-08-30] MEDS: CITALOPRAM HYDROBROMIDE 20 MG TABLET PO SCH (09:27)
[2021-08-30] MEDS: PREGABALIN 100 MG CAPSULE PO SCH ×2 (09:27→22:51)
[2021-08-30] MEDS: TOPIRAMATE 100 MG TABLET PO SCH ×2 (09:27→22:52)
[2021-08-30] MEDS: WARFARIN NA 3 MG TABLET PO SCH (17:10)
[2021-08-30] MEDS: ACETAMINOPHEN 325 MG TABLET (FP) PO PRN (18:52)
[2021-08-30] MEDS ORDERED: traMADol HCL 50 MG TABLET PO ONE (21:27)
[2021-08-30] MEDS: ATORVASTATIN CA 10 MG TABLET (FP) PO SCH (22:51)
[2021-08-30] MEDS: INSULIN (LEVEMIR) 100 UNITS/ML UNITS SQ SCH (22:52)
[2021-08-30] MEDS: FAMOTIDINE 10 MG TABLET PO SCH (22:52)
[2021-08-31] MEDS: LEVOTHYROXINE NA 25 MCG TABLET (FP) PO SCH (06:58)
[2021-08-31] MEDS: INSULIN SLIDING SCALE (NOVOLOG) 1 VIAL SQ SCH ×4 (06:58→21:59)
[2021-08-31] MEDS: LIPASE/PROTEASE/AMYLASE 36,000 UNIT CAPSULE PO SCH ×3 (08:26→17:44)
[2021-08-31] MEDS: predniSONE 20 MG TABLET (UD) PO SCH (10:11)
[2021-08-31] MEDS: CITALOPRAM HYDROBROMIDE 20 MG TABLET PO SCH (10:11)
[2021-08-31] MEDS: VERAPAMIL HCL 240 MG E.R. TABLET PO SCH (10:11)
[2021-08-31] MEDS: DIGOXIN 0.125 MG TABLET PO SCH (10:12)
[2021-08-31] MEDS: PREGABALIN 100 MG CAPSULE PO SCH ×2 (10:13→22:01)
[2021-08-31] MEDS: BUDESONIDE/FORMETEROL FUMARATE 160/4.5 mcg INHALER IH SCH ×2 (10:15→22:02)
[2021-08-31] MEDS: TOPIRAMATE 100 MG TABLET PO SCH ×2 (10:15→22:04)
[2021-08-31 10:25] LABS: BLOOD UREA NITROGEN 57.6 mg/dL (7-18)
[2021-08-31 10:26] LABS: ALBUMIN 2.7 g/dl (3.4-5.0); CALCIUM 8.5 mg/dL (8.5-10.1)
[2021-08-31 10:28] LABS: CREATININE 2.2 mg/dL (0.55-1.3)
[2021-08-31 10:30] LABS: TOT PROT 6.3 g/dl (6.4-8.2)
[2021-08-31 12:42] LABS: PHOSPHOROUS 3.4 mg/dL (2.5-4.9)
[2021-08-31 12:59] LABS: ARTERIAL BLD GAS O2 SATURATION 96.9 % (95-98); ARTERIAL BLOOD GAS BASE EXCESS -10.2 mmol/L (-2-2); ARTERIAL BLOOD GAS PO2 95.5 mmHg (80-100); ARTERIAL BLOOD GAS pH 7.321 (7.350-7.450)
[2021-08-31 13:00] LABS: ALLENS TEST POSITIVE
[2021-08-31 14:00] LABS: EPI CELLS 9 /uL (0-25.1); HYALINE CASTS 3 /uL (0-3.1); URINE APPEARANCE TURBID; URINE BACTERIA >9,000 /uL (0-1359); URINE BILIRUBIN NEGATIVE (NEGATIVE); URINE COLOR RED; URINE GLUCOSE (UA) NEGATIVE (NEGATIVE); URINE KETONE NEGATIVE (NEGATIVE); URINE LEUK ESTERASE 3+ (NEGATIVE); URINE NITRITE POSITIVE (NEGATIVE); URINE PROTEIN 3+ (NEGATIVE); URINE UROBILINOGEN 0.2 mg/dL (0.2-1.0); URINE WBC 10820 /uL (0-25.8)
[2021-08-31 14:41] LABS: URINE RBC 281.1 /uL (0-23.9)
[2021-08-31 16:05] LABS: HEMATOCRIT 32.4 % (32.4-45.2); HEMOGLOBIN 10.3 GM/dL (10.7-15.3); MCHC 31.8 g/dl (32.0-36.0); MEAN CELL VOLUME 87.9 fl (80-96); MEAN PLT VOLUME 10.6 fl (7.5-11.1); PLATELET COUNT 163 10^3/uL (134-434); RBC 3.68 M/mm3 (3.60-5.2); RDW 15.4 % (11.6-15.6)
[2021-08-31 16:25] LABS: WHITE BLOOD COUNT 70.4 K/mm3 (4.0-10.0)
[2021-08-31 17:09] LABS: ANISOCYTOSIS 2+; MACROCYTOSIS 0; OVALOCYTE 1+
[2021-08-31] MEDS: SODIUM CHLORIDE 1,000 ML IV SCH (17:10)
[2021-08-31] MEDS ORDERED: VANCOMYCIN/WATER 1250 MG 1,250 MG/250 ML BAG IVPB ONE (17:11)
[2021-08-31] MEDS ORDERED: CEFEPIME HCL/D5W 2 GM/50 ML BAG IVPB SCH (17:15)
[2021-08-31] MEDS ORDERED: DEXTROSE 5%-WATER 100 ML IVPB ONE (17:35)
[2021-08-31] MEDS ORDERED: MEROPENEM 1 GM VIAL (RESTRICTED TO ID) IVPB ONE (17:35)
[2021-08-31] MEDS: MEROPENEM 1 GM in DEXTROSE 5%-WATER 100 ML IVPB SCH (17:45)
[2021-08-31 20:16] LABS: HEMATOCRIT 30.7 % (32.4-45.2); HEMOGLOBIN 9.6 GM/dL (10.7-15.3); MCH 27.1 pg (25.7-33.7); MCHC 31.1 g/dl (32.0-36.0); MEAN CELL VOLUME 87.1 fl (80-96); MEAN PLT VOLUME 10.7 fl (7.5-11.1); PLATELET COUNT 143 10^3/uL (134-434); RBC 3.53 M/mm3 (3.60-5.2); RDW 16.4 % (11.6-15.6)
[2021-08-31 20:25] LABS: INR 1.84 (0.83-1.09); PROTHROMBIN TIME (PATIENT) 21.3 SEC (9.7-13.0); WHITE BLOOD COUNT 66.7 K/mm3 (4.0-10.0)
[2021-08-31 21:16] LABS: ANISOCYTOSIS 0; MACROCYTOSIS 0
[2021-08-31] MEDS: FAMOTIDINE 10 MG TABLET PO SCH (22:01)
[2021-08-31] MEDS: ATORVASTATIN CA 10 MG TABLET (FP) PO SCH (22:01)
[2021-08-31] MEDS: INSULIN (LEVEMIR) 100 UNITS/ML UNITS SQ SCH (22:05)
[2021-08-31] MEDS: WARFARIN NA 3 MG TABLET PO SCH (22:07)
[2021-08-31] MEDS: ACETAMINOPHEN 325 MG TABLET (FP) PO PRN (23:10)
[2021-09-01] MEDS ORDERED: ACETAMINOPHEN 1000 MG/100 ML BAG IVPB ONE (03:08)
[2021-09-01] MEDS ORDERED: MEROPENEM 1 GM VIAL (RESTRICTED TO ID) IVPB ONE ×2 (04:28→16:08)
[2021-09-01] MEDS ORDERED: DEXTROSE 5%-WATER 100 ML IVPB ONE ×2 (04:29→16:09)
[2021-09-01] MEDS: MEROPENEM 1 GM in DEXTROSE 5%-WATER 100 ML IVPB SCH ×2 (05:04→17:27)
[2021-09-01] MEDS ORDERED: INSULIN (NOVOLOG) ASPART 100 UNITS/ML 10ML VIAL ONE (06:34)
[2021-09-01] MEDS: LEVOTHYROXINE NA 25 MCG TABLET (FP) PO SCH (07:06)
[2021-09-01] MEDS: INSULIN SLIDING SCALE (NOVOLOG) 1 VIAL SQ SCH ×4 (07:06→21:40)
[2021-09-01] MEDS: SODIUM CHLORIDE 1,000 ML IV SCH ×2 (07:23→16:47)
[2021-09-01] MEDS ORDERED: SODIUM CHLORIDE 1,000 ML IV STA ×2 (07:57→09:39)
[2021-09-01 08:52] LABS: ARTERIAL BLD GAS O2 SATURATION 96.3 % (95-98); ARTERIAL BLOOD GAS BASE EXCESS -9.2 mmol/L (-2-2); ARTERIAL BLOOD GAS PO2 91.4 mmHg (80-100); ARTERIAL BLOOD GAS pH 7.293 (7.350-7.450)
[2021-09-01 08:53] LABS: ALLENS TEST POSITIVE; VENT MODE CPAP
[2021-09-01 08:54] LABS: HEMATOCRIT 27.7 % (32.4-45.2); HEMOGLOBIN 8.9 GM/dL (10.7-15.3); MCHC 32.2 g/dl (32.0-36.0); MEAN PLT VOLUME 10.8 fl (7.5-11.1); PLATELET COUNT 97 10^3/uL (134-434); RBC 3.18 M/mm3 (3.60-5.2); RDW 15.9 % (11.6-15.6); WHITE BLOOD COUNT 60.8 K/mm3 (4.0-10.0)
[2021-09-01 08:57] LABS: INR 1.68 (0.83-1.09); PROTHROMBIN TIME (PATIENT) 19.4 SEC (9.7-13.0)
[2021-09-01 09:07] LABS: CALCIUM 7.7 mg/dL (8.5-10.1)
[2021-09-01 09:11] LABS: CREATININE 3.9 mg/dL (0.55-1.3)
[2021-09-01 09:13] LABS: BILIRUBIN,TOTAL 0.4 mg/dL (0.2-1); TOT PROT 4.6 g/dl (6.4-8.2)
[2021-09-01 09:15] LABS: BLOOD UREA NITROGEN 85.6 mg/dL (7-18)
[2021-09-01 09:49] LABS: ANISOCYTOSIS 1+; MACROCYTOSIS 0
[2021-09-01] MEDS ORDERED: predniSONE 20 MG TABLET (UD) PO SCH (10:00)
[2021-09-01] MEDS ORDERED: HYDROCORTISONE SOD SUCCINATE 100 MG/2 ML VIAL IVPB SCH (10:00)
[2021-09-01] MEDS: VERAPAMIL HCL 240 MG E.R. TABLET PO SCH (10:51)
[2021-09-01] MEDS: LIPASE/PROTEASE/AMYLASE 36,000 UNIT CAPSULE PO SCH ×3 (10:51→17:27)
[2021-09-01] MEDS: PREGABALIN 100 MG CAPSULE PO SCH ×2 (10:52→21:39)
[2021-09-01] MEDS: TOPIRAMATE 100 MG TABLET PO SCH ×2 (10:52→21:39)
[2021-09-01] MEDS: CITALOPRAM HYDROBROMIDE 20 MG TABLET PO SCH (10:52)
[2021-09-01] MEDS ORDERED: NOREPINEPHRINE BITARTRATE 16,000 MCG in DEXTROSE 5%-WATER - 500 ML IV SCH (11:30)
[2021-09-01] MEDS: HEPARIN - 25,000 UNIT in SODIUM CHLORIDE 495 ML IV SCH (11:34)
[2021-09-01] MEDS ORDERED: guaiFENesin/D-M SUGAR-FREE/ACLHOL-FREE 5 ML UNIT DOSE PO PRN (12:04)
[2021-09-01] MEDS ORDERED: MELATONIN 5 MG TABLETS PO PRN (12:04)
[2021-09-01] MEDS: MUPIROCIN 2% TOPICAL OINTMENT FOR DECOLONIZATION NS SCH ×2 (12:23→21:39)
[2021-09-01] MEDS: BUDESONIDE/FORMETEROL FUMARATE 160/4.5 mcg INHALER IH SCH ×2 (12:24→21:39)
[2021-09-01 14:54] VITALS: BMI 32.8
[2021-09-01] MEDS: WARFARIN NA 3 MG TABLET PO SCH (17:34)
[2021-09-01] MEDS: HEPARIN NA (PORCINE) 5,000 UNITS/ML 1ML VIAL IVPUSH PRN (18:42)
[2021-09-01] MEDS: FAMOTIDINE 10 MG TABLET PO SCH (21:39)
[2021-09-01] MEDS: CHLORHEXIDINE GLUCONATE 4% CLEANSER FOR DECOLONIZATION TP SCH (21:39)
[2021-09-01] MEDS: ATORVASTATIN CA 10 MG TABLET (FP) PO SCH (21:39)
[2021-09-01] MEDS: INSULIN (LEVEMIR) 100 UNITS/ML UNITS SQ SCH (21:40)
[2021-09-02] MEDS: HEPARIN NA (PORCINE) 5,000 UNITS/ML 1ML VIAL IVPUSH PRN ×3 (00:54→18:14)
[2021-09-02] MEDS ORDERED: DEXTROSE 5%-WATER 100 ML IVPB ONE ×2 (01:14→17:52)
[2021-09-02] MEDS ORDERED: MEROPENEM 1 GM VIAL (RESTRICTED TO ID) IVPB ONE (01:14)
[2021-09-02] MEDS: MEROPENEM 1 GM in DEXTROSE 5%-WATER 100 ML IVPB SCH (06:18)
[2021-09-02] MEDS: INSULIN SLIDING SCALE (NOVOLOG) 1 VIAL SQ SCH ×4 (06:24→22:09)
[2021-09-02] MEDS: LEVOTHYROXINE NA 25 MCG TABLET (FP) PO SCH (06:25)
[2021-09-02 08:23] LABS: CHLORIDE 116 mmol/L (98-107); SODIUM 144 mmol/L (136-145)
[2021-09-02 08:25] LABS: ALBUMIN 1.8 g/dl (3.4-5.0); ANION GAP 10 MMOL/L (8-16); BLOOD UREA NITROGEN 86.9 mg/dL (7-18); CALCIUM 7.4 mg/dL (8.5-10.1); CO2 18 mmol/L (21-32); MAGNESIUM 2.1 mg/dL (1.8-2.4)
[2021-09-02 08:28] LABS: SGPT/ALT 6 U/L (13-61)
[2021-09-02 08:29] LABS: CREATININE 4.1 mg/dL (0.55-1.3); PHOSPHOROUS 5.1 mg/dL (2.5-4.9); SGOT/AST 69 U/L (15-37)
[2021-09-02 08:30] LABS: BILIRUBIN,TOTAL 0.6 mg/dL (0.2-1); TOT PROT 4.5 g/dl (6.4-8.2)
[2021-09-02 08:31] LABS: ALK PHOS 73 U/L (45-117)
[2021-09-02 08:33] LABS: GLUCOSE,RANDOM 46 mg/dL (74-106)
[2021-09-02] MEDS ORDERED: DEXTROSE 50%-WATER - 25 GM/50 ML VIAL IVPUSH ONE (08:41)
[2021-09-02 09:06] LABS: HEMATOCRIT 29.2 % (32.4-45.2); HEMOGLOBIN 9.3 GM/dL (10.7-15.3); MCH 27.4 pg (25.7-33.7); MEAN CELL VOLUME 85.8 fl (80-96); MEAN PLT VOLUME 10.9 fl (7.5-11.1); PLATELET COUNT 85 10^3/uL (134-434); RBC 3.41 M/mm3 (3.60-5.2); RDW 16.2 % (11.6-15.6)
[2021-09-02] MEDS: PREGABALIN 100 MG CAPSULE PO SCH ×2 (09:30→21:13)
[2021-09-02] MEDS: TOPIRAMATE 100 MG TABLET PO SCH ×2 (09:32→21:13)
[2021-09-02] MEDS: LIPASE/PROTEASE/AMYLASE 36,000 UNIT CAPSULE PO SCH ×3 (09:33→17:55)
[2021-09-02] MEDS: DIGOXIN 0.125 MG TABLET PO SCH (09:34)
[2021-09-02 09:35] LABS: ANISOCYTOSIS 0; MACROCYTOSIS 0
[2021-09-02] MEDS: VERAPAMIL HCL 240 MG E.R. TABLET PO SCH (09:37)
[2021-09-02] MEDS: CITALOPRAM HYDROBROMIDE 20 MG TABLET PO SCH (09:37)
[2021-09-02] MEDS: MUPIROCIN 2% TOPICAL OINTMENT FOR DECOLONIZATION NS SCH ×2 (09:50→21:13)
[2021-09-02] MEDS: BUDESONIDE/FORMETEROL FUMARATE 160/4.5 mcg INHALER IH SCH ×2 (09:50→21:14)
[2021-09-02 10:53] LABS: INR 1.84 (0.83-1.09); PROTHROMBIN TIME (PATIENT) 21.3 SEC (9.7-13.0)
[2021-09-02] MEDS: POLYETHYLENE GLYCOL (HEALTHYLAX) 3350 17 GM PACKET PO SCH ×2 (10:56→21:13)
[2021-09-02 11:50] LABS: INR 1.91 (0.83-1.09); PROTHROMBIN TIME (PATIENT) 22.1 SEC (9.7-13.0)
[2021-09-02 11:53] LABS: ACTIVATED PTT 43.6 SECONDS (25.2-36.5)
[2021-09-02] MEDS: HEPARIN - 25,000 UNIT in SODIUM CHLORIDE 495 ML IV SCH (17:19)
[2021-09-02] MEDS ORDERED: MEROPENEM 500 MG VIAL (RESTRICTED TO ID) IVPB ONE (17:52)
[2021-09-02] MEDS: SODIUM CHLORIDE 1,000 ML IV SCH (17:54)
[2021-09-02] MEDS: MEROPENEM 500 MG in DEXTROSE 5%-WATER 100 ML IVPB SCH (17:55)
[2021-09-02] MEDS: WARFARIN NA 3 MG TABLET PO SCH (17:57)
[2021-09-02] MEDS: ATORVASTATIN CA 10 MG TABLET (FP) PO SCH (21:13)
[2021-09-02] MEDS: INSULIN (LEVEMIR) 100 UNITS/ML UNITS SQ SCH (21:13)
[2021-09-02] MEDS: FAMOTIDINE 10 MG TABLET PO SCH (21:13)
[2021-09-02] MEDS: CHLORHEXIDINE GLUCONATE 4% CLEANSER FOR DECOLONIZATION TP SCH (21:13)
[2021-09-03] MEDS ORDERED: MEROPENEM 500 MG VIAL (RESTRICTED TO ID) IVPB ONE (06:11)
[2021-09-03] MEDS ORDERED: DEXTROSE 5%-WATER 100 ML IVPB ONE ×2 (06:11→10:22)
[2021-09-03] MEDS: MEROPENEM 500 MG in DEXTROSE 5%-WATER 100 ML IVPB SCH (06:13)
[2021-09-03] MEDS: ACETAMINOPHEN 325 MG TABLET (FP) PO PRN ×3 (06:13→21:23)
[2021-09-03] MEDS: LEVOTHYROXINE NA 25 MCG TABLET (FP) PO SCH (06:13)
[2021-09-03] MEDS: INSULIN SLIDING SCALE (NOVOLOG) 1 VIAL SQ SCH ×4 (06:15→21:17)
[2021-09-03] MEDS: LIPASE/PROTEASE/AMYLASE 36,000 UNIT CAPSULE PO SCH ×3 (08:00→17:06)
[2021-09-03 08:09] LABS: BASO % 0.3 % (0-2.0); EOS % 0.7 % (0-4.5); HEMATOCRIT 26.7 % (32.4-45.2); HEMOGLOBIN 8.8 GM/dL (10.7-15.3); LYMPH % 6.4 % (8-40); MEAN CELL VOLUME 87.8 fl (80-96); MEAN PLT VOLUME 11.5 fl (7.5-11.1); MONO % 10.5 % (3.8-10.2); NEUT % 82.1 % (42.8-82.8); PLATELET COUNT 84 10^3/uL (134-434); RBC 3.04 M/mm3 (3.60-5.2); RDW 16.1 % (11.6-15.6); WHITE BLOOD COUNT 19.7 K/mm3 (4.0-10.0)
[2021-09-03 08:30] LABS: CALCIUM 7.6 mg/dL (8.5-10.1)
[2021-09-03 08:31] LABS: ALBUMIN 1.7 g/dl (3.4-5.0); BLOOD UREA NITROGEN 86.4 mg/dL (7-18); MAGNESIUM 2.1 mg/dL (1.8-2.4)
[2021-09-03 08:33] LABS: CREATININE 3.9 mg/dL (0.55-1.3); PHOSPHOROUS 4.8 mg/dL (2.5-4.9)
[2021-09-03 08:35] LABS: BILIRUBIN,TOTAL 0.7 mg/dL (0.2-1); TOT PROT 4.5 g/dl (6.4-8.2)
[2021-09-03 08:54] LABS: INR 1.59 (0.83-1.09); PROTHROMBIN TIME (PATIENT) 18.4 SEC (9.7-13.0)
[2021-09-03 08:56] LABS: ACTIVATED PTT 49.2 SECONDS (25.2-36.5)
[2021-09-03] MEDS: POLYETHYLENE GLYCOL (HEALTHYLAX) 3350 17 GM PACKET PO SCH ×2 (09:01→21:17)
[2021-09-03] MEDS: BUDESONIDE/FORMETEROL FUMARATE 160/4.5 mcg INHALER IH SCH ×2 (09:01→21:18)
[2021-09-03] MEDS: MUPIROCIN 2% TOPICAL OINTMENT FOR DECOLONIZATION NS SCH ×2 (09:01→21:18)
[2021-09-03] MEDS: PREGABALIN 100 MG CAPSULE PO SCH ×2 (09:02→21:17)
[2021-09-03] MEDS: CITALOPRAM HYDROBROMIDE 20 MG TABLET PO SCH (09:02)
[2021-09-03] MEDS: VERAPAMIL HCL 240 MG E.R. TABLET PO SCH (09:02)
[2021-09-03] MEDS: TOPIRAMATE 100 MG TABLET PO SCH ×2 (09:03→21:17)
[2021-09-03] MEDS: HEPARIN NA (PORCINE) 5,000 UNITS/ML 1ML VIAL IVPUSH PRN (09:31)
[2021-09-03] MEDS ORDERED: VANCOMYCIN/WATER FOR INJ (PEG) 1,000 MG/200 ML BAG IVPB ONE (09:51)
[2021-09-03] MEDS: CEFTRIAXONE 2 GM in DEXTROSE 5%-WATER 2 GM/100 ML BAG IVPB SCH (10:23)
[2021-09-03] MEDS: HEPARIN - 25,000 UNIT in SODIUM CHLORIDE 495 ML IV SCH (11:56)
[2021-09-03] MEDS: SODIUM CHLORIDE 1,000 ML IV SCH (16:00)
[2021-09-03] MEDS: WARFARIN NA 3 MG TABLET PO SCH (17:06)
[2021-09-03] MEDS: FAMOTIDINE 10 MG TABLET PO SCH (21:17)
[2021-09-03] MEDS: ATORVASTATIN CA 10 MG TABLET (FP) PO SCH (21:17)
[2021-09-03] MEDS: INSULIN (LEVEMIR) 100 UNITS/ML UNITS SQ SCH (21:18)
[2021-09-03] MEDS: CHLORHEXIDINE GLUCONATE 4% CLEANSER FOR DECOLONIZATION TP SCH (21:18)
[2021-09-04] MEDS: INSULIN SLIDING SCALE (NOVOLOG) 1 VIAL SQ SCH ×4 (06:13→21:34)
[2021-09-04] MEDS: LEVOTHYROXINE NA 25 MCG TABLET (FP) PO SCH (06:13)
[2021-09-04 07:45] LABS: HEMATOCRIT 26.1 % (32.4-45.2); HEMOGLOBIN 8.7 GM/dL (10.7-15.3); MCH 29.1 pg (25.7-33.7); MCHC 33.3 g/dl (32.0-36.0); MEAN CELL VOLUME 87.4 fl (80-96); MEAN PLT VOLUME 10.7 fl (7.5-11.1); PLATELET COUNT 80 10^3/uL (134-434); RBC 2.98 M/mm3 (3.60-5.2); RDW 16.2 % (11.6-15.6); WHITE BLOOD COUNT 9.4 K/mm3 (4.0-10.0)
[2021-09-04] MEDS: BENZOCAINE/MENTH/CETYLPYRD CL 1 EACH LOZENGE MM PRN ×2 (08:36→17:35)
[2021-09-04] MEDS: LIPASE/PROTEASE/AMYLASE 36,000 UNIT CAPSULE PO SCH ×3 (08:36→17:34)
[2021-09-04] MEDS ORDERED: DEXTROSE 5%-WATER 100 ML IVPB ONE (10:03)
[2021-09-04] MEDS: PREGABALIN 100 MG CAPSULE PO SCH ×2 (10:13→21:35)
[2021-09-04] MEDS: DIGOXIN 0.125 MG TABLET PO SCH (10:13)
[2021-09-04] MEDS: VERAPAMIL HCL 240 MG E.R. TABLET PO SCH (10:13)
[2021-09-04] MEDS: CITALOPRAM HYDROBROMIDE 20 MG TABLET PO SCH (10:14)
[2021-09-04] MEDS: CEFTRIAXONE 2 GM in DEXTROSE 5%-WATER 2 GM/100 ML BAG IVPB SCH (10:14)
[2021-09-04] MEDS: TOPIRAMATE 100 MG TABLET PO SCH ×2 (10:14→22:23)
[2021-09-04] MEDS: BUDESONIDE/FORMETEROL FUMARATE 160/4.5 mcg INHALER IH SCH ×2 (10:14→21:36)
[2021-09-04] MEDS: MUPIROCIN 2% TOPICAL OINTMENT FOR DECOLONIZATION NS SCH ×2 (10:21→21:34)
[2021-09-04] MEDS: POLYETHYLENE GLYCOL (HEALTHYLAX) 3350 17 GM PACKET PO SCH ×2 (10:21→21:34)
[2021-09-04] MEDS: HEPARIN - 25,000 UNIT in SODIUM CHLORIDE 495 ML IV SCH (10:30)
[2021-09-04] MEDS ORDERED: FUROSEMIDE INJECTION 100 MG in SODIUM CHLORIDE 40 ML IVPB SCH (11:00)
[2021-09-04 11:16] LABS: BLOOD UREA NITROGEN 83.8 mg/dL (7-18); CALCIUM 7.9 mg/dL (8.5-10.1); CREATININE 3.8 mg/dL (0.55-1.3)
[2021-09-04] MEDS: NYSTATIN 500,000 UNITS TABLET PO SCH ×2 (15:52→21:35)
[2021-09-04] MEDS: WARFARIN NA 3 MG TABLET PO SCH (17:34)
[2021-09-04 18:35] LABS: INR 3.18 (0.83-1.09)
[2021-09-04] MEDS: FAMOTIDINE 10 MG TABLET PO SCH (21:35)
[2021-09-04] MEDS: ATORVASTATIN CA 10 MG TABLET (FP) PO SCH (21:35)
[2021-09-04] MEDS: CHLORHEXIDINE GLUCONATE 4% CLEANSER FOR DECOLONIZATION TP SCH (21:36)
[2021-09-04] MEDS: INSULIN (LEVEMIR) 100 UNITS/ML UNITS SQ SCH (21:37)
[2021-09-05] MEDS: LEVOTHYROXINE NA 25 MCG TABLET (FP) PO SCH (06:15)
[2021-09-05] MEDS: NYSTATIN 500,000 UNITS TABLET PO SCH ×2 (06:15→16:52)
[2021-09-05 07:45] LABS: HEMATOCRIT 26.3 % (32.4-45.2); HEMOGLOBIN 8.9 GM/dL (10.7-15.3); MCH 29.7 pg (25.7-33.7); MCHC 33.8 g/dl (32.0-36.0); MEAN CELL VOLUME 87.9 fl (80-96); MEAN PLT VOLUME 10.8 fl (7.5-11.1); PLATELET COUNT 94 10^3/uL (134-434); RBC 2.99 M/mm3 (3.60-5.2); RDW 15.3 % (11.6-15.6); WHITE BLOOD COUNT 8.8 K/mm3 (4.0-10.0)
[2021-09-05 08:33] LABS: BLOOD UREA NITROGEN 83.6 mg/dL (7-18); CALCIUM 8.1 mg/dL (8.5-10.1)
[2021-09-05 08:34] LABS: MAGNESIUM 1.7 mg/dL (1.8-2.4)
[2021-09-05 08:36] LABS: CREATININE 3.9 mg/dL (0.55-1.3); PHOSPHOROUS 6.1 mg/dL (2.5-4.9)
[2021-09-05 08:42] LABS: N-TERMINAL BNP 3058.8 pg/ml (5-125)
[2021-09-05] MEDS ORDERED: DEXTROSE 5%-WATER 100 ML IVPB ONE (09:15)
[2021-09-05] MEDS: TOPIRAMATE 100 MG TABLET PO SCH ×2 (09:29→22:07)
[2021-09-05] MEDS: CITALOPRAM HYDROBROMIDE 20 MG TABLET PO SCH (09:29)
[2021-09-05] MEDS: LIPASE/PROTEASE/AMYLASE 36,000 UNIT CAPSULE PO SCH ×4 (09:29→18:59)
[2021-09-05] MEDS: PREGABALIN 100 MG CAPSULE PO SCH ×2 (09:29→22:07)
[2021-09-05] MEDS: CEFTRIAXONE 2 GM in DEXTROSE 5%-WATER 2 GM/100 ML BAG IVPB SCH (09:29)
[2021-09-05] MEDS: VERAPAMIL HCL 240 MG E.R. TABLET PO SCH (09:29)
[2021-09-05] MEDS: POLYETHYLENE GLYCOL (HEALTHYLAX) 3350 17 GM PACKET PO SCH ×2 (09:30→22:09)
[2021-09-05] MEDS: MUPIROCIN 2% TOPICAL OINTMENT FOR DECOLONIZATION NS SCH (09:30)
[2021-09-05] MEDS ORDERED: FUROSEMIDE 40 MG/4 ML INJECTABLE VIAL IVPUSH ONE (10:00)
[2021-09-05] MEDS ORDERED: FLUCONAZOLE 100 MG TABLET (UD) PO SCH (10:00)
[2021-09-05] MEDS: BUDESONIDE/FORMETEROL FUMARATE 160/4.5 mcg INHALER IH SCH ×2 (10:36→22:07)
[2021-09-05] MEDS ORDERED: MAGNESIUM OXIDE 400 MG TABLET (FP) PO ONE (11:00)
[2021-09-05] MEDS: INSULIN SLIDING SCALE (NOVOLOG) 1 VIAL SQ SCH ×4 (11:54→22:08)
[2021-09-05] MEDS: NYSTATIN 500,000 UNITS/5 ML SUSPENSION PO SCH ×2 (14:58→17:36)
[2021-09-05] MEDS ORDERED: guaiFENesin/D-M SUGAR-FREE/ACLHOL-FREE 5 ML UNIT DOSE PO PRN (17:38)
[2021-09-05] MEDS ORDERED: BENZOCAINE/MENTH/CETYLPYRD CL 1 EACH LOZENGE MM PRN (17:38)
[2021-09-05] MEDS ORDERED: ACETAMINOPHEN 325 MG TABLET (FP) PO PRN (17:38)
[2021-09-05 20:46] LABS: INR 3.27 (0.83-1.09); PROTHROMBIN TIME (PATIENT) 38.1 SEC (9.7-13.0)
[2021-09-05] MEDS: WARFARIN NA 3 MG TABLET PO SCH (21:19)
[2021-09-05] MEDS ORDERED: MUPIROCIN 2% TOPICAL OINTMENT FOR DECOLONIZATION NS SCH (22:00)
[2021-09-05] MEDS ORDERED: CHLORHEXIDINE GLUCONATE 4% CLEANSER FOR DECOLONIZATION TP SCH (22:00)
[2021-09-05] MEDS: MELATONIN 5 MG TABLETS PO PRN (22:06)
[2021-09-05] MEDS: ATORVASTATIN CA 10 MG TABLET (FP) PO SCH (22:07)
[2021-09-05] MEDS: FAMOTIDINE 10 MG TABLET PO SCH (22:09)
[2021-09-05] MEDS: INSULIN (LEVEMIR) 100 UNITS/ML UNITS SQ SCH (22:10)
[2021-09-06] MEDS: NYSTATIN 500,000 UNITS/5 ML SUSPENSION PO SCH ×4 (00:25→17:25)
[2021-09-06] MEDS: INSULIN SLIDING SCALE (NOVOLOG) 1 VIAL SQ SCH ×4 (06:02→22:25)
[2021-09-06] MEDS: LEVOTHYROXINE NA 25 MCG TABLET (FP) PO SCH (06:02)
[2021-09-06] MEDS ORDERED: LIPASE/PROTEASE/AMYLASE 36,000 UNIT CAPSULE PO SCH (08:00)
[2021-09-06] MEDS: LIPASE/PROTEASE/AMYLASE 36,000 UNIT CAPSULE PO SCH ×3 (08:11→16:53)
[2021-09-06] MEDS ORDERED: DEXTROSE 5%-WATER 100 ML IVPB ONE (10:01)
[2021-09-06] MEDS: TOPIRAMATE 100 MG TABLET PO SCH ×2 (10:08→22:24)
[2021-09-06] MEDS: VERAPAMIL HCL 240 MG E.R. TABLET PO SCH (10:08)
[2021-09-06] MEDS: CEFTRIAXONE 2 GM in DEXTROSE 5%-WATER 2 GM/100 ML BAG IVPB SCH (10:08)
[2021-09-06] MEDS: PREGABALIN 100 MG CAPSULE PO SCH ×2 (10:09→22:24)
[2021-09-06] MEDS: POLYETHYLENE GLYCOL (HEALTHYLAX) 3350 17 GM PACKET PO SCH ×2 (10:09→22:24)
[2021-09-06] MEDS: CITALOPRAM HYDROBROMIDE 20 MG TABLET PO SCH (10:09)
[2021-09-06] MEDS: BUDESONIDE/FORMETEROL FUMARATE 160/4.5 mcg INHALER IH SCH ×2 (10:10→22:24)
[2021-09-06] MEDS ORDERED: valACYclovir HCL 500 MG TABLET (FP) PO ONE (10:25)
[2021-09-06 10:56] LABS: INR 3.32 (0.83-1.09); PROTHROMBIN TIME (PATIENT) 38.6 SEC (9.7-13.0)
[2021-09-06 10:57] LABS: HEMATOCRIT 23.8 % (32.4-45.2); HEMOGLOBIN 8.1 GM/dL (10.7-15.3); MCH 29.8 pg (25.7-33.7); MEAN CELL VOLUME 87.7 fl (80-96); MEAN PLT VOLUME 10.6 fl (7.5-11.1); PLATELET COUNT 113 10^3/uL (134-434); RBC 2.71 M/mm3 (3.60-5.2); RDW 15.4 % (11.6-15.6); WHITE BLOOD COUNT 7.2 K/mm3 (4.0-10.0)
[2021-09-06 10:59] LABS: BASO % 0.8 % (0-2.0); EOS % 2.4 % (0-4.5); HEMATOCRIT 24.3 % (32.4-45.2); HEMOGLOBIN 8.1 GM/dL (10.7-15.3); LYMPH % 18.2 % (8-40); MCH 29.2 pg (25.7-33.7); MCHC 33.2 g/dl (32.0-36.0); MEAN PLT VOLUME 10.5 fl (7.5-11.1); NEUT % 67.6 % (42.8-82.8); PLATELET COUNT 111 10^3/uL (134-434); RBC 2.76 M/mm3 (3.60-5.2); RDW 15.1 % (11.6-15.6); WHITE BLOOD COUNT 7.3 K/mm3 (4.0-10.0)
[2021-09-06 11:45] LABS: CALCIUM 7.9 mg/dL (8.5-10.1)
[2021-09-06 11:47] LABS: MAGNESIUM 2.1 mg/dL (1.8-2.4)
[2021-09-06 11:49] LABS: CREATININE 3.9 mg/dL (0.55-1.3); PHOSPHOROUS 6.6 mg/dL (2.5-4.9); TOT PROT 5.2 g/dl (6.4-8.2)
[2021-09-06 11:50] LABS: BILIRUBIN,TOTAL 0.3 mg/dL (0.2-1)
[2021-09-06] MEDS ORDERED: FUROSEMIDE 40 MG/4 ML INJECTABLE VIAL IVPUSH ONE (12:59)
[2021-09-06] MEDS ORDERED: INSULIN (NOVOLOG) ASPART 100 UNITS/ML 10ML VIAL ONE (17:10)
[2021-09-06] MEDS: WARFARIN NA 3 MG TABLET PO SCH (17:25)
[2021-09-06] MEDS: FAMOTIDINE 10 MG TABLET PO SCH (22:24)
[2021-09-06] MEDS: ATORVASTATIN CA 10 MG TABLET (FP) PO SCH (22:24)
[2021-09-06] MEDS: INSULIN (LEVEMIR) 100 UNITS/ML UNITS SQ SCH (22:25)
[2021-09-07] MEDS: NYSTATIN 500,000 UNITS/5 ML SUSPENSION PO SCH ×4 (01:17→17:24)
[2021-09-07] MEDS: INSULIN SLIDING SCALE (NOVOLOG) 1 VIAL SQ SCH ×4 (06:41→21:40)
[2021-09-07] MEDS: LEVOTHYROXINE NA 25 MCG TABLET (FP) PO SCH (06:41)
[2021-09-07] MEDS: LIPASE/PROTEASE/AMYLASE 36,000 UNIT CAPSULE PO SCH ×3 (08:07→17:23)
[2021-09-07 08:23] LABS: HEMATOCRIT 24.6 % (32.4-45.2); HEMOGLOBIN 8.2 GM/dL (10.7-15.3); MCH 28.6 pg (25.7-33.7); MCHC 33.4 g/dl (32.0-36.0); MEAN CELL VOLUME 85.7 fl (80-96); MEAN PLT VOLUME 9.6 fl (7.5-11.1); PLATELET COUNT 129 10^3/uL (134-434); RBC 2.87 M/mm3 (3.60-5.2); RDW 15.2 % (11.6-15.6); WHITE BLOOD COUNT 7.2 K/mm3 (4.0-10.0)
[2021-09-07 08:36] LABS: ACTIVATED PTT 43.5 SECONDS (25.2-36.5)
[2021-09-07 09:00] LABS: BILIRUBIN,TOTAL 0.3 mg/dL (0.2-1); BLOOD UREA NITROGEN 87.2 mg/dL (7-18); CALCIUM 8.2 mg/dL (8.5-10.1); CREATININE 3.8 mg/dL (0.55-1.3); TOT PROT 5.2 g/dl (6.4-8.2)
[2021-09-07 09:21] LABS: INR 3.22 (0.83-1.09); PROTHROMBIN TIME (PATIENT) 37.5 SEC (9.7-13.0)
[2021-09-07] MEDS ORDERED: DEXTROSE 5%-WATER 100 ML IVPB ONE (09:29)
[2021-09-07] MEDS: TOPIRAMATE 100 MG TABLET PO SCH ×2 (09:55→21:26)
[2021-09-07] MEDS: CITALOPRAM HYDROBROMIDE 20 MG TABLET PO SCH (09:55)
[2021-09-07] MEDS: CEFTRIAXONE 2 GM in DEXTROSE 5%-WATER 2 GM/100 ML BAG IVPB SCH (09:55)
[2021-09-07] MEDS: PREGABALIN 100 MG CAPSULE PO SCH ×2 (09:55→21:27)
[2021-09-07] MEDS: VERAPAMIL HCL 240 MG E.R. TABLET PO SCH (09:55)
[2021-09-07] MEDS: POLYETHYLENE GLYCOL (HEALTHYLAX) 3350 17 GM PACKET PO SCH ×2 (09:55→21:26)
[2021-09-07] MEDS: BUDESONIDE/FORMETEROL FUMARATE 160/4.5 mcg INHALER IH SCH ×2 (11:30→21:27)
[2021-09-07] MEDS: valACYclovir HCL 500 MG TABLET (FP) PO SCH (12:41)
[2021-09-07] MEDS: ALBUTEROL SO4 2.5/IPRATROPIUM 0.5 INH SOL 3 ML VIAL.NEB. NEB SCH ×2 (14:32→19:50)
[2021-09-07] MEDS: WARFARIN NA 3 MG TABLET PO SCH (17:24)
[2021-09-07] MEDS: FAMOTIDINE 10 MG TABLET PO SCH (21:27)
[2021-09-07] MEDS: ATORVASTATIN CA 10 MG TABLET (FP) PO SCH (21:27)
[2021-09-07] MEDS: INSULIN (LEVEMIR) 100 UNITS/ML UNITS SQ SCH (21:27)
[2021-09-07] MEDS: MELATONIN 5 MG TABLETS PO PRN (23:31)
[2021-09-08] MEDS: NYSTATIN 500,000 UNITS/5 ML SUSPENSION PO SCH ×3 (00:29→12:40)
[2021-09-08] MEDS: INSULIN SLIDING SCALE (NOVOLOG) 1 VIAL SQ SCH ×2 (06:09→12:13)
[2021-09-08] MEDS: LEVOTHYROXINE NA 25 MCG TABLET (FP) PO SCH (06:09)
[2021-09-08 07:08] VITALS: TEMP 98.5
[2021-09-08] MEDS: ALBUTEROL SO4 2.5/IPRATROPIUM 0.5 INH SOL 3 ML VIAL.NEB. NEB SCH ×2 (07:20→13:44)
[2021-09-08] MEDS: LIPASE/PROTEASE/AMYLASE 36,000 UNIT CAPSULE PO SCH ×2 (08:25→12:40)
[2021-09-08] MEDS ORDERED: DEXTROSE 5%-WATER 100 ML IVPB ONE (09:04)
[2021-09-08] MEDS: CITALOPRAM HYDROBROMIDE 20 MG TABLET PO SCH (09:13)
[2021-09-08] MEDS: valACYclovir HCL 500 MG TABLET (FP) PO SCH (09:14)
[2021-09-08] MEDS: VERAPAMIL HCL 240 MG E.R. TABLET PO SCH (09:15)
[2021-09-08] MEDS: POLYETHYLENE GLYCOL (HEALTHYLAX) 3350 17 GM PACKET PO SCH (09:16)
[2021-09-08] MEDS: TOPIRAMATE 100 MG TABLET PO SCH (09:16)
[2021-09-08] MEDS: PREGABALIN 100 MG CAPSULE PO SCH (09:16)
[2021-09-08] MEDS: CEFTRIAXONE 2 GM in DEXTROSE 5%-WATER 2 GM/100 ML BAG IVPB SCH (09:18)
[2021-09-08] MEDS: BUDESONIDE/FORMETEROL FUMARATE 160/4.5 mcg INHALER IH SCH (09:21)
[2021-09-08 14:11] VITALS: BP 103/41; PULSE 72
== END 2021-09-08 14:27 | DRG 190 ==
LOC: JER 13:13 → JERBED 17:59 → J8W 08-22 15:54 → JERBED 08-22 15:55 → J8W 08-22 16:40 → JICU 09-01 08:45 → J8W 09-05 16:38
PROVIDERS: ADMIT Internal Medicine; ATTEND Family Medicine
PROC: 05HM33Z Insertion of Infusion Device into Right Internal Jugular Vein, Percutaneous Approach (ICD-10-PCS; principal; 2021-09-01)
PROC: B543ZZA Ultrasonography of Right Jugular Veins, Guidance (ICD-10-PCS; 2021-09-01)
DX: J44.1 Chronic obstructive pulmonary disease with (acute) exacerbation (principal); G93.41 Metabolic encephalopathy; A41.9 Sepsis, unspecified organism; R65.21 Severe sepsis with septic shock; J96.21 Acute and chronic respiratory failure with hypoxia; I50.33 Acute on chronic diastolic (congestive) heart failure; N17.0 Acute kidney failure with tubular necrosis; N39.0 Urinary tract infection, site not specified; G20 Parkinson's disease; R31.9 Hematuria, unspecified; K11.20 Sialoadenitis, unspecified; E87.70 Fluid overload, unspecified; I25.10 Atherosclerotic heart disease of native coronary artery without angina pectoris; Z95.1 Presence of aortocoronary bypass graft; D69.6 Thrombocytopenia, unspecified; E78.5 Hyperlipidemia, unspecified; I48.0 Paroxysmal atrial fibrillation; E87.5 Hyperkalemia; I95.9 Hypotension, unspecified; F03.90 Unspecified dementia, unspecified severity, without behavioral disturbance, psychotic disturbance, mood disturbance, and anxiety; D72.829 Elevated white blood cell count, unspecified; R33.9 Retention of urine, unspecified; E11.9 Type 2 diabetes mellitus without complications; G47.33 Obstructive sleep apnea (adult) (pediatric); E03.9 Hypothyroidism, unspecified; E87.6 Hypokalemia
CPT/HCPCS: 0241U-QW; 36415; 36600; 70450-TC; 71045-TC-FY; 74176-TC; 80048; 80053; 80162; 81003; 82272; 82803; 82962; 83605; 83735; 83880; 84100; 84484; 85025; 85027; 85610; 85730; 86038; 86160; 86225; 87040; 87077; 87081; 87086; 87186; 93971; 94010; 94640; 94660; 97116-GP; 97162-GP; 99285-25; C9803-CS; G0480; J1644; J3480; U0003; U0005

== ENCOUNTER 2021-09-26 22:45 | Inpatient (IN) | payer OTHER ==
[2021-09-27 01:25] LABS: HEMATOCRIT 17.9 % (32.4-45.2); MCHC 32.5 g/dl (32.0-36.0); MEAN CELL VOLUME 86.3 fl (80-96); MEAN PLT VOLUME 8.8 fl (7.5-11.1); PLATELET COUNT 388 10^3/uL (134-434); RBC 2.07 M/mm3 (3.60-5.2); RDW 15.9 % (11.6-15.6); WHITE BLOOD COUNT 13.1 K/mm3 (4.0-10.0)
[2021-09-27 01:35] LABS: HEMOGLOBIN 5.8 GM/dL (10.7-15.3)
[2021-09-27 01:56] LABS: INR 2.81 (0.83-1.09); PROTHROMBIN TIME (PATIENT) 32.6 SEC (9.7-13.0)
[2021-09-27 01:58] LABS: ACTIVATED PTT 36.1 SECONDS (25.2-36.5)
[2021-09-27 02:14] LABS: EPI CELLS 18 /uL (0-25.1); HYALINE CASTS 0 /uL (0-3.1); URINE APPEARANCE CLEAR; URINE BACTERIA 10 /uL (0-1359); URINE BILIRUBIN NEGATIVE (NEGATIVE); URINE COLOR ORANGE; URINE GLUCOSE (UA) NEGATIVE (NEGATIVE); URINE KETONE NEGATIVE (NEGATIVE); URINE LEUK ESTERASE TRACE (NEGATIVE); URINE NITRITE NEGATIVE (NEGATIVE); URINE PROTEIN 1+ (NEGATIVE); URINE RBC 2660 /uL (0-23.9); URINE UROBILINOGEN 0.2 mg/dL (0.2-1.0); URINE WBC 48 /uL (0-25.8)
[2021-09-27 02:23] LABS: CHLORIDE 109 mmol/L (98-107); SODIUM 144 mmol/L (136-145)
[2021-09-27 02:26] LABS: ALBUMIN 2.7 g/dl (3.4-5.0); ANION GAP 9 MMOL/L (8-16); CALCIUM 7.7 mg/dL (8.5-10.1); CO2 26 mmol/L (21-32); GLUCOSE,RANDOM 89 mg/dL (74-106)
[2021-09-27 02:27] LABS: BLOOD UREA NITROGEN 67.5 mg/dL (7-18)
[2021-09-27 02:29] LABS: CREATININE 4.3 mg/dL (0.55-1.3); SGOT/AST 23 U/L (15-37)
[2021-09-27 02:31] LABS: BILIRUBIN,TOTAL 0.6 mg/dL (0.2-1); TOT PROT 7.1 g/dl (6.4-8.2)
[2021-09-27 02:33] LABS: N-TERMINAL BNP 3018.4 pg/ml (5-125)
[2021-09-27 03:17] LABS: ALK PHOS 84 U/L (45-117); SGPT/ALT 11 U/L (13-61)
[2021-09-27 04:48] LABS: ANISOCYTOSIS 1+; MACROCYTOSIS 0
[2021-09-27] MEDS ORDERED: LOPERAMIDE HCL 2 MG CAPSULE PO PRN ×2 (07:06→18:39)
[2021-09-27] MEDS ORDERED: ACETAMINOPHEN 325 MG TABLET (FP) PO PRN ×2 (07:06→18:39)
[2021-09-27] MEDS ORDERED: NITROGLYCERIN SUBLINGUAL 1/150 0.4 MG TAB SL PRN ×2 (07:06→18:39)
[2021-09-27] MEDS ORDERED: MELATONIN 5 MG TABLETS PO PRN ×2 (07:06→18:39)
[2021-09-27] MEDS ORDERED: FUROSEMIDE 40 MG/4 ML INJECTABLE VIAL ONE (07:52)
[2021-09-27] MEDS ORDERED: FUROSEMIDE 40 MG/4 ML INJECTABLE VIAL IVPUSH ONE (08:00)
[2021-09-27] MEDS ORDERED: CITALOPRAM HYDROBROMIDE 20 MG TABLET PO SCH (10:00)
[2021-09-27] MEDS ORDERED: POLYETHYLENE GLYCOL (HEALTHYLAX) 3350 17 GM PACKET PO SCH (10:00)
[2021-09-27] MEDS ORDERED: VERAPAMIL HCL 240 MG E.R. TABLET PO SCH (10:00)
[2021-09-27] MEDS ORDERED: BUDESONIDE/FORMETEROL FUMARATE 160/4.5 mcg INHALER IH SCH (10:00)
[2021-09-27] MEDS ORDERED: TOPIRAMATE 100 MG TABLET PO SCH (10:00)
[2021-09-27] MEDS: LIPASE/PROTEASE/AMYLASE 36,000 UNIT CAPSULE PO SCH ×2 (11:02→11:45)
[2021-09-27] MEDS: ALBUTEROL SO4 2.5/IPRATROPIUM 0.5 INH SOL 3 ML VIAL.NEB. NEB SCH ×2 (11:25→20:33)
[2021-09-27] MEDS ORDERED: CITALOPRAM HYDROBROMIDE 10 MG TABLET ONE (11:32)
[2021-09-27] MEDS ORDERED: POLYETHYLENE GLYCOL (HEALTHYLAX) 3350 17 GM PACKET ONE (11:32)
[2021-09-27] MEDS: INSULIN SLIDING SCALE (NOVOLOG) 1 VIAL SQ SCH ×2 (12:43→23:01)
[2021-09-27 16:48] LABS: HEMATOCRIT 28.2 % (32.4-45.2); HEMOGLOBIN 9.5 GM/dL (10.7-15.3); MCH 28.7 pg (25.7-33.7); MCHC 33.6 g/dl (32.0-36.0); MEAN CELL VOLUME 85.4 fl (80-96); MEAN PLT VOLUME 8.5 fl (7.5-11.1); PLATELET COUNT 349 10^3/uL (134-434); RDW 14.7 % (11.6-15.6); WHITE BLOOD COUNT 10.4 K/mm3 (4.0-10.0)
[2021-09-27 16:59] LABS: INR 3.75 (0.83-1.09); PROTHROMBIN TIME (PATIENT) 43.7 SEC (9.7-13.0)
[2021-09-27 17:23] LABS: CHLORIDE 108 mmol/L (98-107); SODIUM 143 mmol/L (136-145)
[2021-09-27 17:31] LABS: CALCIUM 8.1 mg/dL (8.5-10.1)
[2021-09-27 17:32] LABS: ANION GAP 10 MMOL/L (8-16); BLOOD UREA NITROGEN 65.2 mg/dL (7-18); CO2 25 mmol/L (21-32); GLUCOSE,RANDOM 163 mg/dL (74-106)
[2021-09-27 17:35] LABS: MAGNESIUM 1.8 mg/dL (1.8-2.4)
[2021-09-27] MEDS ORDERED: WARFARIN NA 5 MG TABLET PO SCH (18:00)
[2021-09-27 18:07] LABS: ANISOCYTOSIS 0; MACROCYTOSIS 0
[2021-09-27] MEDS ORDERED: ATORVASTATIN CA 10 MG TABLET (FP) PO SCH (22:00)
[2021-09-27] MEDS ORDERED: INSULIN (LEVEMIR) 100 UNITS/ML UNITS SQ SCH (22:00)
[2021-09-27] MEDS ORDERED: FAMOTIDINE 10 MG TABLET PO SCH (22:00)
[2021-09-27] MEDS ORDERED: MONTELUKAST NA 10 MG TABLET PO SCH (22:00)
[2021-09-27] MEDS: MUPIROCIN 2% TOPICAL OINTMENT FOR DECOLONIZATION NS SCH (23:00)
[2021-09-27] MEDS: FAMOTIDINE 10 MG TABLET PO SCH (23:00)
[2021-09-27] MEDS: INSULIN (LEVEMIR) 100 UNITS/ML UNITS SQ SCH (23:01)
[2021-09-27] MEDS: CHLORHEXIDINE GLUCONATE 4% CLEANSER FOR DECOLONIZATION TP SCH (23:01)
[2021-09-27] MEDS: ATORVASTATIN CA 10 MG TABLET (FP) PO SCH (23:01)
[2021-09-27] MEDS: POLYETHYLENE GLYCOL (HEALTHYLAX) 3350 17 GM PACKET PO SCH (23:01)
[2021-09-27] MEDS: MONTELUKAST NA 10 MG TABLET PO SCH (23:02)
[2021-09-27] MEDS: BUDESONIDE/FORMETEROL FUMARATE 160/4.5 mcg INHALER IH SCH (23:02)
[2021-09-27 23:43] LABS: BASO % 1.2 % (0-2.0); EOS % 1.2 % (0-4.5); HEMATOCRIT 27.3 % (32.4-45.2); HEMOGLOBIN 9.2 GM/dL (10.7-15.3); LYMPH % 20.6 % (8-40); MCH 28.7 pg (25.7-33.7); MCHC 33.7 g/dl (32.0-36.0); MEAN CELL VOLUME 85.2 fl (80-96); MEAN PLT VOLUME 8.2 fl (7.5-11.1); MONO % 11.3 % (3.8-10.2); NEUT % 65.7 % (42.8-82.8); PLATELET COUNT 333 10^3/uL (134-434); RBC 3.21 M/mm3 (3.60-5.2); RDW 15.1 % (11.6-15.6)
[2021-09-27 23:50] LABS: INR 3.96 (0.83-1.09); PROTHROMBIN TIME (PATIENT) 46.2 SEC (9.7-13.0)
[2021-09-28 00:06] LABS: BLOOD UREA NITROGEN 61.5 mg/dL (7-18); CALCIUM 7.8 mg/dL (8.5-10.1)
[2021-09-28 00:07] LABS: ALBUMIN 2.5 g/dl (3.4-5.0)
[2021-09-28 00:09] LABS: CREATININE 3.9 mg/dL (0.55-1.3)
[2021-09-28 00:11] LABS: BILIRUBIN,TOTAL 0.3 mg/dL (0.2-1); TOT PROT 6.8 g/dl (6.4-8.2)
[2021-09-28] MEDS: INSULIN SLIDING SCALE (NOVOLOG) 1 VIAL SQ SCH ×5 (06:49→23:13)
[2021-09-28] MEDS: LEVOTHYROXINE NA 25 MCG TABLET (FP) PO SCH (06:59)
[2021-09-28] MEDS ORDERED: LEVOTHYROXINE NA 25 MCG TABLET (FP) PO SCH (07:00)
[2021-09-28] MEDS: ALBUTEROL SO4 2.5/IPRATROPIUM 0.5 INH SOL 3 ML VIAL.NEB. NEB SCH ×3 (07:56→20:13)
[2021-09-28 08:04] LABS: BASO % 1.1 % (0-2.0); CALCIUM 8.3 mg/dL (8.5-10.1); HEMATOCRIT 28.3 % (32.4-45.2); HEMOGLOBIN 9.6 GM/dL (10.7-15.3); LYMPH % 15.2 % (8-40); MCH 29.9 pg (25.7-33.7); MCHC 34.1 g/dl (32.0-36.0); MEAN CELL VOLUME 87.9 fl (80-96); MEAN PLT VOLUME 8.8 fl (7.5-11.1); MONO % 10.8 % (3.8-10.2); NEUT % 71.9 % (42.8-82.8); PLATELET COUNT 333 10^3/uL (134-434); RBC 3.22 M/mm3 (3.60-5.2); RDW 15.2 % (11.6-15.6); WHITE BLOOD COUNT 10.6 K/mm3 (4.0-10.0)
[2021-09-28 08:06] LABS: ALBUMIN 2.7 g/dl (3.4-5.0); BLOOD UREA NITROGEN 58.9 mg/dL (7-18)
[2021-09-28 08:09] LABS: CREATININE 3.7 mg/dL (0.55-1.3)
[2021-09-28] MEDS: LIPASE/PROTEASE/AMYLASE 36,000 UNIT CAPSULE PO SCH ×3 (08:09→17:01)
[2021-09-28 08:10] LABS: BILIRUBIN,TOTAL 0.3 mg/dL (0.2-1); TOT PROT 6.9 g/dl (6.4-8.2)
[2021-09-28 08:38] LABS: INR 3.71 (0.83-1.09); PROTHROMBIN TIME (PATIENT) 43.2 SEC (9.7-13.0)
[2021-09-28] MEDS: POLYETHYLENE GLYCOL (HEALTHYLAX) 3350 17 GM PACKET PO SCH ×2 (10:17→22:23)
[2021-09-28] MEDS: BUDESONIDE/FORMETEROL FUMARATE 160/4.5 mcg INHALER IH SCH ×2 (10:20→22:24)
[2021-09-28] MEDS: MUPIROCIN 2% TOPICAL OINTMENT FOR DECOLONIZATION NS SCH ×2 (10:20→22:22)
[2021-09-28] MEDS: VERAPAMIL HCL 240 MG E.R. TABLET PO SCH (11:40)
[2021-09-28] MEDS: CITALOPRAM HYDROBROMIDE 20 MG TABLET PO SCH (11:40)
[2021-09-28 13:53] LABS: BASO % 1.2 % (0-2.0); EOS % 0.7 % (0-4.5); HEMATOCRIT 27.8 % (32.4-45.2); HEMOGLOBIN 9.5 GM/dL (10.7-15.3); LYMPH % 13.4 % (8-40); MCH 29.4 pg (25.7-33.7); MCHC 34.2 g/dl (32.0-36.0); MEAN CELL VOLUME 85.9 fl (80-96); MEAN PLT VOLUME 8.6 fl (7.5-11.1); MONO % 9.7 % (3.8-10.2); PLATELET COUNT 334 10^3/uL (134-434); RBC 3.23 M/mm3 (3.60-5.2); RDW 15.4 % (11.6-15.6); WHITE BLOOD COUNT 10.1 K/mm3 (4.0-10.0)
[2021-09-28 16:59] LABS: BASO % 1.2 % (0-2.0); EOS % 0.8 % (0-4.5); HEMATOCRIT 26.4 % (32.4-45.2); HEMOGLOBIN 8.8 GM/dL (10.7-15.3); LYMPH % 15.3 % (8-40); MCH 28.5 pg (25.7-33.7); MCHC 33.5 g/dl (32.0-36.0); MEAN CELL VOLUME 84.9 fl (80-96); MEAN PLT VOLUME 8.2 fl (7.5-11.1); MONO % 10.5 % (3.8-10.2); NEUT % 72.2 % (42.8-82.8); PLATELET COUNT 314 10^3/uL (134-434); RBC 3.11 M/mm3 (3.60-5.2); WHITE BLOOD COUNT 11.3 K/mm3 (4.0-10.0)
[2021-09-28 17:10] LABS: INR 3.81 (0.83-1.09); PROTHROMBIN TIME (PATIENT) 44.4 SEC (9.7-13.0)
[2021-09-28 17:13] LABS: ACTIVATED PTT 56.4 SECONDS (25.2-36.5)
[2021-09-28] MEDS ORDERED: WARFARIN NA 2 MG TABLET PO SCH (18:00)
[2021-09-28 21:29] LABS: BASO % 1.1 % (0-2.0); HEMATOCRIT 27.6 % (32.4-45.2); HEMOGLOBIN 9.4 GM/dL (10.7-15.3); MCH 28.7 pg (25.7-33.7); MCHC 33.9 g/dl (32.0-36.0); MEAN CELL VOLUME 84.8 fl (80-96); MEAN PLT VOLUME 8.3 fl (7.5-11.1); MONO % 10.2 % (3.8-10.2); NEUT % 69.7 % (42.8-82.8); PLATELET COUNT 316 10^3/uL (134-434); RBC 3.26 M/mm3 (3.60-5.2); RDW 15.3 % (11.6-15.6); WHITE BLOOD COUNT 11.6 K/mm3 (4.0-10.0)
[2021-09-28] MEDS: FAMOTIDINE 10 MG TABLET PO SCH (22:22)
[2021-09-28] MEDS: CHLORHEXIDINE GLUCONATE 4% CLEANSER FOR DECOLONIZATION TP SCH (22:23)
[2021-09-28] MEDS: INSULIN (LEVEMIR) 100 UNITS/ML UNITS SQ SCH (22:23)
[2021-09-28] MEDS: ATORVASTATIN CA 10 MG TABLET (FP) PO SCH (22:23)
[2021-09-28] MEDS: MONTELUKAST NA 10 MG TABLET PO SCH (22:24)
[2021-09-28] MEDS: TOPIRAMATE 100 MG TABLET PO SCH (22:24)
[2021-09-29 04:16] LABS: BASO % 1.3 % (0-2.0); EOS % 1.3 % (0-4.5); LYMPH % 17.7 % (8-40); MCH 28.6 pg (25.7-33.7); MCHC 33.2 g/dl (32.0-36.0); MEAN CELL VOLUME 86.2 fl (80-96); MEAN PLT VOLUME 8.4 fl (7.5-11.1); MONO % 10.9 % (3.8-10.2); NEUT % 68.8 % (42.8-82.8); PLATELET COUNT 323 10^3/uL (134-434); RBC 3.13 M/mm3 (3.60-5.2); RDW 14.9 % (11.6-15.6); WHITE BLOOD COUNT 11.9 K/mm3 (4.0-10.0)
[2021-09-29] MEDS: INSULIN SLIDING SCALE (NOVOLOG) 1 VIAL SQ SCH ×4 (06:49→21:59)
[2021-09-29] MEDS: LEVOTHYROXINE NA 25 MCG TABLET (FP) PO SCH (06:49)
[2021-09-29] MEDS: ALBUTEROL SO4 2.5/IPRATROPIUM 0.5 INH SOL 3 ML VIAL.NEB. NEB SCH ×3 (07:20→20:19)
[2021-09-29 07:34] LABS: BASO % 1.4 % (0-2.0); EOS % 1.3 % (0-4.5); HEMATOCRIT 28.8 % (32.4-45.2); HEMOGLOBIN 9.6 GM/dL (10.7-15.3); LYMPH % 16.6 % (8-40); MCHC 33.5 g/dl (32.0-36.0); MEAN CELL VOLUME 86.8 fl (80-96); MEAN PLT VOLUME 8.3 fl (7.5-11.1); MONO % 10.6 % (3.8-10.2); NEUT % 70.1 % (42.8-82.8); PLATELET COUNT 308 10^3/uL (134-434); RBC 3.31 M/mm3 (3.60-5.2); RDW 15.4 % (11.6-15.6); WHITE BLOOD COUNT 10.9 K/mm3 (4.0-10.0)
[2021-09-29 07:39] LABS: INR 2.84 (0.83-1.09)
[2021-09-29 07:41] LABS: ACTIVATED PTT 63.7 SECONDS (25.2-36.5)
[2021-09-29] MEDS: LIPASE/PROTEASE/AMYLASE 36,000 UNIT CAPSULE PO SCH ×3 (09:31→18:54)
[2021-09-29] MEDS: MUPIROCIN 2% TOPICAL OINTMENT FOR DECOLONIZATION NS SCH ×2 (09:32→22:00)
[2021-09-29] MEDS: VERAPAMIL HCL 240 MG E.R. TABLET PO SCH (09:32)
[2021-09-29] MEDS: CITALOPRAM HYDROBROMIDE 20 MG TABLET PO SCH (09:32)
[2021-09-29] MEDS: BUDESONIDE/FORMETEROL FUMARATE 160/4.5 mcg INHALER IH SCH ×2 (09:33→21:59)
[2021-09-29] MEDS: POLYETHYLENE GLYCOL (HEALTHYLAX) 3350 17 GM PACKET PO SCH ×2 (09:33→21:59)
[2021-09-29] MEDS: TOPIRAMATE 100 MG TABLET PO SCH ×2 (09:34→21:59)
[2021-09-29] MEDS: ATORVASTATIN CA 10 MG TABLET (FP) PO SCH (21:59)
[2021-09-29] MEDS: FAMOTIDINE 10 MG TABLET PO SCH (21:59)
[2021-09-29] MEDS: MONTELUKAST NA 10 MG TABLET PO SCH (21:59)
[2021-09-29] MEDS: CHLORHEXIDINE GLUCONATE 4% CLEANSER FOR DECOLONIZATION TP SCH (22:00)
[2021-09-29] MEDS: INSULIN (LEVEMIR) 100 UNITS/ML UNITS SQ SCH (22:01)
[2021-09-30] MEDS ORDERED: LOPERAMIDE HCL 2 MG CAPSULE PO PRN (01:34)
[2021-09-30] MEDS ORDERED: NITROGLYCERIN SUBLINGUAL 1/150 0.4 MG TAB SL PRN (01:34)
[2021-09-30] MEDS ORDERED: MELATONIN 5 MG TABLETS PO PRN (01:34)
[2021-09-30] MEDS: LEVOTHYROXINE NA 25 MCG TABLET (FP) PO SCH (06:41)
[2021-09-30] MEDS: INSULIN SLIDING SCALE (NOVOLOG) 1 VIAL SQ SCH ×5 (07:50→22:23)
[2021-09-30] MEDS: LIPASE/PROTEASE/AMYLASE 36,000 UNIT CAPSULE PO SCH ×4 (08:39→17:35)
[2021-09-30] MEDS: ALBUTEROL SO4 2.5/IPRATROPIUM 0.5 INH SOL 3 ML VIAL.NEB. NEB SCH ×4 (08:45→20:20)
[2021-09-30] MEDS ORDERED: MUPIROCIN 2% TOPICAL OINTMENT FOR DECOLONIZATION NS SCH (10:00)
[2021-09-30] MEDS: CITALOPRAM HYDROBROMIDE 20 MG TABLET PO SCH (11:04)
[2021-09-30] MEDS: TOPIRAMATE 100 MG TABLET PO SCH ×2 (11:04→22:23)
[2021-09-30] MEDS: POLYETHYLENE GLYCOL (HEALTHYLAX) 3350 17 GM PACKET PO SCH ×2 (11:05→22:23)
[2021-09-30] MEDS: VERAPAMIL HCL 240 MG E.R. TABLET PO SCH (11:05)
[2021-09-30] MEDS: BUDESONIDE/FORMETEROL FUMARATE 160/4.5 mcg INHALER IH SCH ×2 (11:24→22:24)
[2021-09-30 11:53] LABS: BASO % 1.2 % (0-2.0); EOS % 1.2 % (0-4.5); HEMATOCRIT 30.4 % (32.4-45.2); HEMOGLOBIN 9.7 GM/dL (10.7-15.3); LYMPH % 16.3 % (8-40); MCH 28.8 pg (25.7-33.7); MCHC 31.9 g/dl (32.0-36.0); MEAN CELL VOLUME 90.2 fl (80-96); MEAN PLT VOLUME 8.6 fl (7.5-11.1); MONO % 10.6 % (3.8-10.2); NEUT % 70.7 % (42.8-82.8); PLATELET COUNT 308 10^3/uL (134-434); RBC 3.37 M/mm3 (3.60-5.2); RDW 15.5 % (11.6-15.6); WHITE BLOOD COUNT 8.6 K/mm3 (4.0-10.0)
[2021-09-30 12:14] LABS: ACTIVATED PTT 45.2 SECONDS (25.2-36.5); INR 1.93 (0.83-1.09); PROTHROMBIN TIME (PATIENT) 22.3 SEC (9.7-13.0)
[2021-09-30] MEDS ORDERED: HEPARIN NA (PORCINE) 5,000 UNITS/ML 1ML VIAL IVPUSH PRN ×2 (13:10)
[2021-09-30] MEDS: HEPARIN SOD,PORK IN 0.45% NACL 25,000 UNITS/500 ML INFUS.BAG IVPB SCH (14:41)
[2021-09-30] MEDS ORDERED: WARFARIN NA 1 MG TABLET PO SCH (18:00)
[2021-09-30 20:56] LABS: INR 1.8 (0.83-1.09); PROTHROMBIN TIME (PATIENT) 20.8 SEC (9.7-13.0)
[2021-09-30 20:59] LABS: ACTIVATED PTT 58.5 SECONDS (25.2-36.5)
[2021-09-30] MEDS ORDERED: CHLORHEXIDINE GLUCONATE 4% CLEANSER FOR DECOLONIZATION TP SCH (22:00)
[2021-09-30] MEDS: INSULIN (LEVEMIR) 100 UNITS/ML UNITS SQ SCH (22:22)
[2021-09-30] MEDS: MONTELUKAST NA 10 MG TABLET PO SCH (22:24)
[2021-09-30] MEDS: ATORVASTATIN CA 10 MG TABLET (FP) PO SCH (22:24)
[2021-09-30] MEDS: FAMOTIDINE 10 MG TABLET PO SCH (22:24)
[2021-10-01] MEDS: LEVOTHYROXINE NA 25 MCG TABLET (FP) PO SCH (06:34)
[2021-10-01] MEDS: INSULIN SLIDING SCALE (NOVOLOG) 1 VIAL SQ SCH ×4 (06:37→22:15)
[2021-10-01] MEDS: ALBUTEROL SO4 2.5/IPRATROPIUM 0.5 INH SOL 3 ML VIAL.NEB. NEB SCH ×3 (08:15→20:55)
[2021-10-01] MEDS: LIPASE/PROTEASE/AMYLASE 36,000 UNIT CAPSULE PO SCH ×3 (08:53→17:23)
[2021-10-01] MEDS: POLYETHYLENE GLYCOL (HEALTHYLAX) 3350 17 GM PACKET PO SCH ×2 (10:14→22:17)
[2021-10-01] MEDS: CITALOPRAM HYDROBROMIDE 20 MG TABLET PO SCH (10:14)
[2021-10-01] MEDS: BUDESONIDE/FORMETEROL FUMARATE 160/4.5 mcg INHALER IH SCH ×2 (10:14→22:22)
[2021-10-01] MEDS: TOPIRAMATE 100 MG TABLET PO SCH ×2 (10:15→23:34)
[2021-10-01] MEDS: diphenhydrAMINE HCL 25 MG CAPSULE (FP) PO PRN ×2 (11:54→22:17)
[2021-10-01] MEDS: HEPARIN SOD,PORK IN 0.45% NACL 25,000 UNITS/500 ML INFUS.BAG IVPB SCH (12:58)
[2021-10-01] MEDS: VERAPAMIL HCL 240 MG E.R. TABLET PO SCH (13:02)
[2021-10-01] MEDS: INSULIN (LEVEMIR) 100 UNITS/ML UNITS SQ SCH (22:17)
[2021-10-01] MEDS: MONTELUKAST NA 10 MG TABLET PO SCH (22:17)
[2021-10-01] MEDS: ATORVASTATIN CA 10 MG TABLET (FP) PO SCH (22:17)
[2021-10-01] MEDS: FAMOTIDINE 10 MG TABLET PO SCH (22:17)
[2021-10-02] MEDS: LEVOTHYROXINE NA 25 MCG TABLET (FP) PO SCH (06:39)
[2021-10-02] MEDS: INSULIN SLIDING SCALE (NOVOLOG) 1 VIAL SQ SCH ×4 (06:45→22:13)
[2021-10-02] MEDS: ALBUTEROL SO4 2.5/IPRATROPIUM 0.5 INH SOL 3 ML VIAL.NEB. NEB SCH ×3 (07:51→20:50)
[2021-10-02] MEDS: LIPASE/PROTEASE/AMYLASE 36,000 UNIT CAPSULE PO SCH ×3 (08:58→17:31)
[2021-10-02 09:43] LABS: HEMATOCRIT 27.8 % (32.4-45.2); HEMOGLOBIN 9.2 GM/dL (10.7-15.3); MCHC 33.2 g/dl (32.0-36.0); MEAN CELL VOLUME 87.3 fl (80-96); PLATELET COUNT 287 10^3/uL (134-434); RBC 3.18 M/mm3 (3.60-5.2); WHITE BLOOD COUNT 7.7 K/mm3 (4.0-10.0)
[2021-10-02] MEDS: TOPIRAMATE 100 MG TABLET PO SCH ×2 (10:19→22:40)
[2021-10-02] MEDS: POLYETHYLENE GLYCOL (HEALTHYLAX) 3350 17 GM PACKET PO SCH ×2 (10:19→22:06)
[2021-10-02] MEDS: VERAPAMIL HCL 240 MG E.R. TABLET PO SCH (10:19)
[2021-10-02] MEDS: BUDESONIDE/FORMETEROL FUMARATE 160/4.5 mcg INHALER IH SCH ×2 (10:19→22:40)
[2021-10-02] MEDS: CITALOPRAM HYDROBROMIDE 20 MG TABLET PO SCH (10:19)
[2021-10-02] MEDS: HEPARIN SOD,PORK IN 0.45% NACL 25,000 UNITS/500 ML INFUS.BAG IVPB SCH ×2 (12:10→13:50)
[2021-10-02] MEDS: diphenhydrAMINE HCL 25 MG CAPSULE (FP) PO PRN ×2 (14:42→22:06)
[2021-10-02] MEDS: ATORVASTATIN CA 10 MG TABLET (FP) PO SCH (22:06)
[2021-10-02] MEDS: MONTELUKAST NA 10 MG TABLET PO SCH (22:06)
[2021-10-02] MEDS: FAMOTIDINE 10 MG TABLET PO SCH (22:06)
[2021-10-02] MEDS: INSULIN (LEVEMIR) 100 UNITS/ML UNITS SQ SCH (22:14)
[2021-10-03] MEDS: INSULIN SLIDING SCALE (NOVOLOG) 1 VIAL SQ SCH ×4 (07:39→22:18)
[2021-10-03] MEDS: LEVOTHYROXINE NA 25 MCG TABLET (FP) PO SCH (07:39)
[2021-10-03] MEDS: LIPASE/PROTEASE/AMYLASE 36,000 UNIT CAPSULE PO SCH ×3 (08:11→17:06)
[2021-10-03] MEDS: ALBUTEROL SO4 2.5/IPRATROPIUM 0.5 INH SOL 3 ML VIAL.NEB. NEB SCH ×3 (08:45→20:43)
[2021-10-03] MEDS: BUDESONIDE/FORMETEROL FUMARATE 160/4.5 mcg INHALER IH SCH ×2 (09:48→22:00)
[2021-10-03] MEDS: CITALOPRAM HYDROBROMIDE 20 MG TABLET PO SCH (09:48)
[2021-10-03] MEDS: VERAPAMIL HCL 240 MG E.R. TABLET PO SCH (09:48)
[2021-10-03] MEDS: POLYETHYLENE GLYCOL (HEALTHYLAX) 3350 17 GM PACKET PO SCH ×2 (09:48→22:17)
[2021-10-03] MEDS: TOPIRAMATE 100 MG TABLET PO SCH ×2 (09:48→23:37)
[2021-10-03] MEDS: diphenhydrAMINE HCL 25 MG CAPSULE (FP) PO PRN ×2 (09:54→18:29)
[2021-10-03 11:10] LABS: HEMATOCRIT 27.4 % (32.4-45.2); HEMOGLOBIN 9.1 GM/dL (10.7-15.3); MCH 29.2 pg (25.7-33.7); MCHC 33.1 g/dl (32.0-36.0); MEAN PLT VOLUME 9.3 fl (7.5-11.1); PLATELET COUNT 263 10^3/uL (134-434); RBC 3.11 M/mm3 (3.60-5.2); RDW 14.8 % (11.6-15.6); WHITE BLOOD COUNT 6.7 K/mm3 (4.0-10.0)
[2021-10-03] MEDS: HEPARIN SOD,PORK IN 0.45% NACL 25,000 UNITS/500 ML INFUS.BAG IVPB SCH ×2 (16:04→22:25)
[2021-10-03 16:11] VITALS: BMI 32.8
[2021-10-03] MEDS: FAMOTIDINE 10 MG TABLET PO SCH (22:16)
[2021-10-03] MEDS: MONTELUKAST NA 10 MG TABLET PO SCH (22:17)
[2021-10-03] MEDS: ATORVASTATIN CA 10 MG TABLET (FP) PO SCH (22:17)
[2021-10-03] MEDS: PREGABALIN 100 MG CAPSULE PO SCH (22:17)
[2021-10-03] MEDS: INSULIN (LEVEMIR) 100 UNITS/ML UNITS SQ SCH (22:18)
[2021-10-04] MEDS: LEVOTHYROXINE NA 25 MCG TABLET (FP) PO SCH (06:23)
[2021-10-04] MEDS: INSULIN SLIDING SCALE (NOVOLOG) 1 VIAL SQ SCH ×4 (06:31→23:00)
[2021-10-04] MEDS: LIPASE/PROTEASE/AMYLASE 36,000 UNIT CAPSULE PO SCH ×3 (08:25→17:16)
[2021-10-04] MEDS: ALBUTEROL SO4 2.5/IPRATROPIUM 0.5 INH SOL 3 ML VIAL.NEB. NEB SCH ×3 (09:14→20:15)
[2021-10-04] MEDS: CITALOPRAM HYDROBROMIDE 20 MG TABLET PO SCH (10:10)
[2021-10-04] MEDS: PREGABALIN 100 MG CAPSULE PO SCH ×2 (10:10→22:11)
[2021-10-04] MEDS: VERAPAMIL HCL 240 MG E.R. TABLET PO SCH (10:10)
[2021-10-04] MEDS: TOPIRAMATE 100 MG TABLET PO SCH ×2 (10:10→22:11)
[2021-10-04] MEDS: POLYETHYLENE GLYCOL (HEALTHYLAX) 3350 17 GM PACKET PO SCH ×2 (10:10→22:12)
[2021-10-04] MEDS: BUDESONIDE/FORMETEROL FUMARATE 160/4.5 mcg INHALER IH SCH ×2 (10:16→22:15)
[2021-10-04 11:02] LABS: HEMATOCRIT 26.9 % (32.4-45.2); HEMOGLOBIN 8.9 GM/dL (10.7-15.3); MCH 29.1 pg (25.7-33.7); MCHC 33.1 g/dl (32.0-36.0); MEAN CELL VOLUME 87.8 fl (80-96); MEAN PLT VOLUME 9.1 fl (7.5-11.1); PLATELET COUNT 268 10^3/uL (134-434); RBC 3.07 M/mm3 (3.60-5.2); WHITE BLOOD COUNT 7.2 K/mm3 (4.0-10.0)
[2021-10-04 12:20] LABS: CALCIUM 8.6 mg/dL (8.5-10.1)
[2021-10-04 12:21] LABS: ALBUMIN 2.8 g/dl (3.4-5.0); MAGNESIUM 2.1 mg/dL (1.8-2.4)
[2021-10-04 12:26] LABS: BILIRUBIN,TOTAL 0.5 mg/dL (0.2-1); TOT PROT 6.8 g/dl (6.4-8.2)
[2021-10-04] MEDS: HEPARIN SOD,PORK IN 0.45% NACL 25,000 UNITS/500 ML INFUS.BAG IVPB SCH (16:30)
[2021-10-04] MEDS: MONTELUKAST NA 10 MG TABLET PO SCH (22:10)
[2021-10-04] MEDS: FAMOTIDINE 10 MG TABLET PO SCH (22:10)
[2021-10-04] MEDS: ATORVASTATIN CA 10 MG TABLET (FP) PO SCH (22:10)
[2021-10-04] MEDS: INSULIN (LEVEMIR) 100 UNITS/ML UNITS SQ SCH (22:11)
[2021-10-04] MEDS: diphenhydrAMINE HCL 25 MG CAPSULE (FP) PO PRN (22:16)
[2021-10-05] MEDS: LEVOTHYROXINE NA 25 MCG TABLET (FP) PO SCH (06:23)
[2021-10-05] MEDS: INSULIN SLIDING SCALE (NOVOLOG) 1 VIAL SQ SCH ×4 (06:58→22:26)
[2021-10-05] MEDS: ALBUTEROL SO4 2.5/IPRATROPIUM 0.5 INH SOL 3 ML VIAL.NEB. NEB SCH ×3 (07:25→20:00)
[2021-10-05] MEDS: LIPASE/PROTEASE/AMYLASE 36,000 UNIT CAPSULE PO SCH ×4 (08:52→17:34)
[2021-10-05 09:48] LABS: HEMOGLOBIN 8.9 GM/dL (10.7-15.3); MCH 29.1 pg (25.7-33.7); MCHC 32.9 g/dl (32.0-36.0); MEAN CELL VOLUME 88.3 fl (80-96); MEAN PLT VOLUME 9.2 fl (7.5-11.1); PLATELET COUNT 263 10^3/uL (134-434); RBC 3.06 M/mm3 (3.60-5.2); RDW 14.8 % (11.6-15.6); WHITE BLOOD COUNT 7.4 K/mm3 (4.0-10.0)
[2021-10-05] MEDS: BUDESONIDE/FORMETEROL FUMARATE 160/4.5 mcg INHALER IH SCH ×2 (09:54→22:35)
[2021-10-05] MEDS: PREGABALIN 100 MG CAPSULE PO SCH ×2 (09:54→22:30)
[2021-10-05] MEDS: TOPIRAMATE 100 MG TABLET PO SCH ×2 (09:54→22:29)
[2021-10-05] MEDS: POLYETHYLENE GLYCOL (HEALTHYLAX) 3350 17 GM PACKET PO SCH ×2 (09:54→22:29)
[2021-10-05] MEDS: CITALOPRAM HYDROBROMIDE 20 MG TABLET PO SCH (09:54)
[2021-10-05] MEDS: VERAPAMIL HCL 240 MG E.R. TABLET PO SCH (10:47)
[2021-10-05] MEDS: HEPARIN SOD,PORK IN 0.45% NACL 25,000 UNITS/500 ML INFUS.BAG IVPB SCH ×2 (16:16→17:03)
[2021-10-05] MEDS: INSULIN (LEVEMIR) 100 UNITS/ML UNITS SQ SCH (22:25)
[2021-10-05] MEDS: FAMOTIDINE 10 MG TABLET PO SCH (22:30)
[2021-10-05] MEDS: MONTELUKAST NA 10 MG TABLET PO SCH (22:30)
[2021-10-05] MEDS: ATORVASTATIN CA 10 MG TABLET (FP) PO SCH (22:30)
[2021-10-06] MEDS: INSULIN SLIDING SCALE (NOVOLOG) 1 VIAL SQ SCH ×4 (06:16→22:50)
[2021-10-06] MEDS: LEVOTHYROXINE NA 25 MCG TABLET (FP) PO SCH (06:16)
[2021-10-06] MEDS: ALBUTEROL SO4 2.5/IPRATROPIUM 0.5 INH SOL 3 ML VIAL.NEB. NEB SCH ×3 (07:16→20:30)
[2021-10-06] MEDS: LIPASE/PROTEASE/AMYLASE 36,000 UNIT CAPSULE PO SCH ×3 (09:06→17:28)
[2021-10-06 09:18] LABS: CALCIUM 8.6 mg/dL (8.5-10.1)
[2021-10-06 09:19] LABS: ALBUMIN 2.8 g/dl (3.4-5.0); BLOOD UREA NITROGEN 61.2 mg/dL (7-18); MAGNESIUM 2.1 mg/dL (1.8-2.4)
[2021-10-06 09:22] LABS: CREATININE 2.9 mg/dL (0.55-1.3)
[2021-10-06 09:23] LABS: BILIRUBIN,TOTAL 0.4 mg/dL (0.2-1); TOT PROT 6.8 g/dl (6.4-8.2)
[2021-10-06] MEDS: POLYETHYLENE GLYCOL (HEALTHYLAX) 3350 17 GM PACKET PO SCH ×2 (09:24→22:50)
[2021-10-06] MEDS: CITALOPRAM HYDROBROMIDE 20 MG TABLET PO SCH (09:27)
[2021-10-06] MEDS: PREGABALIN 100 MG CAPSULE PO SCH ×2 (09:27→22:51)
[2021-10-06] MEDS: TOPIRAMATE 100 MG TABLET PO SCH ×2 (09:27→22:51)
[2021-10-06 09:28] LABS: HEMATOCRIT 27.4 % (32.4-45.2); MCH 29.1 pg (25.7-33.7); MCHC 32.9 g/dl (32.0-36.0); MEAN CELL VOLUME 88.5 fl (80-96); MEAN PLT VOLUME 9.5 fl (7.5-11.1); PLATELET COUNT 251 10^3/uL (134-434); RBC 3.09 M/mm3 (3.60-5.2); RDW 15.4 % (11.6-15.6); WHITE BLOOD COUNT 7.7 K/mm3 (4.0-10.0)
[2021-10-06] MEDS: VERAPAMIL HCL 240 MG E.R. TABLET PO SCH ×2 (09:29→09:33)
[2021-10-06] MEDS: BUDESONIDE/FORMETEROL FUMARATE 160/4.5 mcg INHALER IH SCH ×2 (09:31→22:52)
[2021-10-06] MEDS ORDERED: INSULIN (LEVEMIR) 100 UNITS/ML UNITS SQ SCH (10:00)
[2021-10-06] MEDS ORDERED: LIDOCAINE HCL 2% JELLY 10 ML CARTRIDGE ONE (13:32)
[2021-10-06] MEDS ORDERED: KETAMINE HCL 200 MG/20 ML VIAL ONE (13:41)
[2021-10-06] MEDS ORDERED: ceFAZolin SODIUM 1 GM VIAL IVPB ONE (13:47)
[2021-10-06] MEDS ORDERED: HEPARIN NA (PORCINE) 5,000 UNITS/ML 1ML VIAL IVPUSH PRN ×4 (14:12→15:15)
[2021-10-06] MEDS ORDERED: MELATONIN 5 MG TABLETS PO PRN (14:12)
[2021-10-06] MEDS ORDERED: NITROGLYCERIN SUBLINGUAL 1/150 0.4 MG TAB SL PRN (14:12)
[2021-10-06] MEDS ORDERED: diphenhydrAMINE HCL 25 MG CAPSULE (FP) PO PRN (14:12)
[2021-10-06] MEDS ORDERED: LOPERAMIDE HCL 2 MG CAPSULE PO PRN (14:12)
[2021-10-06] MEDS ORDERED: ONDANSETRON 4 MG/2 ML VIAL IVPUSH PRN (14:16)
[2021-10-06] MEDS ORDERED: oxyCODONE HCL 5 MG TABLET PO PRN (14:16)
[2021-10-06] MEDS: HEPARIN - 25,000 UNIT in SODIUM CHLORIDE 495 ML IV SCH ×2 (16:05→17:25)
[2021-10-06] MEDS: LACTATED RINGERS SOLUTION 1,000 ML IV SCH (17:28)
[2021-10-06] MEDS ORDERED: WARFARIN NA 5 MG TABLET PO ONE (18:10)
[2021-10-06] MEDS: INSULIN (LEVEMIR) 100 UNITS/ML UNITS SQ SCH (22:50)
[2021-10-06] MEDS: FAMOTIDINE 10 MG TABLET PO SCH (22:51)
[2021-10-06] MEDS: ATORVASTATIN CA 10 MG TABLET (FP) PO SCH (22:51)
[2021-10-06] MEDS: MONTELUKAST NA 10 MG TABLET PO SCH (22:51)
[2021-10-07] MEDS: INSULIN SLIDING SCALE (NOVOLOG) 1 VIAL SQ SCH ×4 (06:02→21:13)
[2021-10-07] MEDS: INSULIN (LEVEMIR) 100 UNITS/ML UNITS SQ SCH ×2 (06:02→21:20)
[2021-10-07] MEDS: LEVOTHYROXINE NA 25 MCG TABLET (FP) PO SCH (06:03)
[2021-10-07] MEDS: ALBUTEROL SO4 2.5/IPRATROPIUM 0.5 INH SOL 3 ML VIAL.NEB. NEB SCH ×3 (07:25→21:07)
[2021-10-07] MEDS: LIPASE/PROTEASE/AMYLASE 36,000 UNIT CAPSULE PO SCH ×3 (08:40→17:45)
[2021-10-07] MEDS: TOPIRAMATE 100 MG TABLET PO SCH ×2 (10:33→21:05)
[2021-10-07] MEDS: VERAPAMIL HCL 240 MG E.R. TABLET PO SCH (10:33)
[2021-10-07] MEDS: CITALOPRAM HYDROBROMIDE 20 MG TABLET PO SCH (10:34)
[2021-10-07] MEDS: BUDESONIDE/FORMETEROL FUMARATE 160/4.5 mcg INHALER IH SCH ×2 (10:34→21:09)
[2021-10-07] MEDS: PREGABALIN 100 MG CAPSULE PO SCH ×2 (10:34→21:05)
[2021-10-07] MEDS: POLYETHYLENE GLYCOL (HEALTHYLAX) 3350 17 GM PACKET PO SCH ×3 (10:34→21:07)
[2021-10-07 10:49] LABS: INR 1.16 (0.83-1.09); PROTHROMBIN TIME (PATIENT) 13.4 SEC (9.7-13.0)
[2021-10-07 11:28] LABS: ACTIVATED PTT 43.8 SECONDS (25.2-36.5)
[2021-10-07 14:43] VITALS: RESP 18
[2021-10-07] MEDS: LACTATED RINGERS SOLUTION 1,000 ML IV SCH (17:40)
[2021-10-07] MEDS ORDERED: WARFARIN NA 7.5 MG TABLET PO ONE (21:00)
[2021-10-07] MEDS: FAMOTIDINE 10 MG TABLET PO SCH (21:05)
[2021-10-07] MEDS: ATORVASTATIN CA 10 MG TABLET (FP) PO SCH (21:05)
[2021-10-07] MEDS: MONTELUKAST NA 10 MG TABLET PO SCH (21:05)
[2021-10-07] MEDS ORDERED: WARFARIN NA 5 MG, WARFARIN NA 2 MG PO ONE (21:15)
[2021-10-07] MEDS ORDERED: ENOXAPARIN NA (PORCINE) 80 MG/0.8 ML DISP.SYRIN SQ SCH (22:00)
[2021-10-08] MEDS: INSULIN (LEVEMIR) 100 UNITS/ML UNITS SQ SCH (06:49)
[2021-10-08] MEDS: INSULIN SLIDING SCALE (NOVOLOG) 1 VIAL SQ SCH ×2 (06:50→11:05)
[2021-10-08] MEDS: LEVOTHYROXINE NA 25 MCG TABLET (FP) PO SCH (06:51)
[2021-10-08] MEDS: ALBUTEROL SO4 2.5/IPRATROPIUM 0.5 INH SOL 3 ML VIAL.NEB. NEB SCH ×2 (07:25→13:52)
[2021-10-08] MEDS: LIPASE/PROTEASE/AMYLASE 36,000 UNIT CAPSULE PO SCH ×2 (09:00→11:44)
[2021-10-08] MEDS: CITALOPRAM HYDROBROMIDE 20 MG TABLET PO SCH (09:52)
[2021-10-08] MEDS: VERAPAMIL HCL 240 MG E.R. TABLET PO SCH (09:52)
[2021-10-08] MEDS: POLYETHYLENE GLYCOL (HEALTHYLAX) 3350 17 GM PACKET PO SCH (09:53)
[2021-10-08] MEDS: PREGABALIN 100 MG CAPSULE PO SCH (09:53)
[2021-10-08] MEDS: TOPIRAMATE 100 MG TABLET PO SCH (09:53)
[2021-10-08] MEDS: BUDESONIDE/FORMETEROL FUMARATE 160/4.5 mcg INHALER IH SCH (09:57)
[2021-10-08 09:58] VITALS: TEMP 98.5
[2021-10-08 09:59] LABS: HEMATOCRIT 26.8 % (32.4-45.2); HEMOGLOBIN 8.8 GM/dL (10.7-15.3); MCH 29.4 pg (25.7-33.7); MCHC 33.1 g/dl (32.0-36.0); MEAN CELL VOLUME 88.9 fl (80-96); MEAN PLT VOLUME 9.3 fl (7.5-11.1); PLATELET COUNT 257 10^3/uL (134-434); RBC 3.01 M/mm3 (3.60-5.2); RDW 15.2 % (11.6-15.6); WHITE BLOOD COUNT 6.5 K/mm3 (4.0-10.0)
[2021-10-08] MEDS ORDERED: INSULIN (NOVOLOG) ASPART 100 UNITS/ML 10ML VIAL ONE (11:01)
[2021-10-08 13:27] VITALS: BP 116/42; PULSE 60
[2021-10-08] MEDS: LACTATED RINGERS SOLUTION 1,000 ML IV SCH (15:19)
[2021-10-08] MEDS ORDERED: WARFARIN NA 7.5 MG TABLET PO ONE (18:00)
== END 2021-10-08 16:39 | DRG 811 ==
LOC: JER 22:45 → JERBED 09-27 05:07 → JICU 09-27 18:52 → J6S 09-30 01:24
PROVIDERS: ADMIT Hospitalist; ATTEND Family Medicine
PROC: 30233N1 Transfusion of Nonautologous Red Blood Cells into Peripheral Vein, Percutaneous Approach (ICD-10-PCS; 2021-09-27)
PROC: 0TJB8ZZ Inspection of Bladder, Via Natural or Artificial Opening Endoscopic (ICD-10-PCS; principal; 2021-10-06 13:00)
DX: D64.9 Anemia, unspecified (principal); I50.31 Acute diastolic (congestive) heart failure; I50.32 Chronic diastolic (congestive) heart failure; I13.0 Hypertensive heart and chronic kidney disease with heart failure and stage 1 through stage 4 chronic kidney disease, or unspecified chronic kidney disease; N17.9 Acute kidney failure, unspecified; D68.61 Antiphospholipid syndrome; I47.1 Supraventricular tachycardia; R31.9 Hematuria, unspecified; I25.10 Atherosclerotic heart disease of native coronary artery without angina pectoris; Z95.1 Presence of aortocoronary bypass graft; Z98.61 Coronary angioplasty status; I48.0 Paroxysmal atrial fibrillation; E03.9 Hypothyroidism, unspecified; E11.9 Type 2 diabetes mellitus without complications
CPT/HCPCS: 0241U-QW; 36415; 36430; 71046-TC-FY; 76775-TC; 76856-TC; 80048; 80053; 81003; 82272; 82962; 83735; 83880; 84484; 85025; 85027; 85610; 85730; 86850; 86900; 86901; 86922; 87086; 93005; 93010; 94640; 94760; 97116-GP; 97162-GP; 99285-25; C9803-CS; J1644; P9058; U0003; U0005

== ENCOUNTER 2021-11-30 15:54 | Inpatient (IN) | payer OTHER ==
[2021-11-30 16:42] VITALS: BMI 33.0
[2021-11-30 17:49] LABS: BASO % 0.7 % (0-2.0); EOS % 2.6 % (0-4.5); HEMATOCRIT 27.7 % (32.4-45.2); HEMOGLOBIN 9.4 GM/dL (10.7-15.3); LYMPH % 28.9 % (8-40); MCH 30.7 pg (25.7-33.7); MCHC 33.9 g/dl (32.0-36.0); MEAN CELL VOLUME 90.4 fl (80-96); MEAN PLT VOLUME 9.2 fl (7.5-11.1); MONO % 11.8 % (3.8-10.2); PLATELET COUNT 220 10^3/uL (134-434); RBC 3.06 M/mm3 (3.60-5.2); RDW 14.6 % (11.6-15.6); WHITE BLOOD COUNT 8.3 K/mm3 (4.0-10.0)
[2021-11-30 17:51] LABS: EPI CELLS 9 /uL (0-25.1); HYALINE CASTS 2 /uL (0-3.1); PH,URINE 5.5 (5.0-8.0); URINE APPEARANCE CLEAR; URINE BACTERIA 17 /uL (0-1359); URINE BILIRUBIN NEGATIVE (NEGATIVE); URINE COLOR YELLOW; URINE GLUCOSE (UA) NEGATIVE (NEGATIVE); URINE KETONE NEGATIVE (NEGATIVE); URINE LEUK ESTERASE 1+ (NEGATIVE); URINE NITRITE NEGATIVE (NEGATIVE); URINE PROTEIN NEGATIVE (NEGATIVE); URINE RBC 101 /uL (0-23.9); URINE UROBILINOGEN 0.2 mg/dL (0.2-1.0); URINE WBC 86 /uL (0-25.8)
[2021-11-30 18:11] LABS: ALBUMIN 3.5 g/dl (3.4-5.0); BLOOD UREA NITROGEN 38.6 mg/dL (7-18); CALCIUM 8.7 mg/dL (8.5-10.1)
[2021-11-30 18:14] LABS: CREATININE 2.3 mg/dL (0.55-1.3)
[2021-11-30 18:16] LABS: BILIRUBIN,TOTAL 0.3 mg/dL (0.2-1); TOT PROT 7.6 g/dl (6.4-8.2)
[2021-11-30 18:19] LABS: N-TERMINAL BNP 449.8 pg/ml (5-125)
[2021-11-30 18:26] LABS: INR 2.23 (0.83-1.09); PROTHROMBIN TIME (PATIENT) 25.9 SEC (9.7-13.0)
[2021-11-30] MEDS ORDERED: ACETAMINOPHEN 325 MG TABLET (FP) PO ONE (18:45)
[2021-11-30] MEDS ORDERED: LIDOCAINE 5% TOPICAL PATCH TP ONE (18:46)
[2021-11-30] MEDS ORDERED: LIDOCAINE 5% TOPICAL PATCH ONE (18:54)
[2021-11-30] MEDS ORDERED: ACETAMINOPHEN 325 MG TABLET (FP) ONE (18:54)
[2021-11-30 20:30] LABS: CALCIUM 8.4 mg/dL (8.5-10.1)
[2021-11-30 20:31] LABS: BLOOD UREA NITROGEN 38.3 mg/dL (7-18)
[2021-11-30 20:34] LABS: CREATININE 2.4 mg/dL (0.55-1.3)
[2021-11-30] MEDS ORDERED: WARFARIN NA 2 MG TABLET PO SCH (23:45)
[2021-12-01] MEDS ORDERED: WARFARIN NA 2 MG TABLET PO SCH (00:15)
[2021-12-01] MEDS ORDERED: WARFARIN NA 1 MG TABLET ONE (05:13)
[2021-12-01] MEDS ORDERED: WARFARIN NA 5 MG TABLET ONE (05:13)
[2021-12-01] MEDS ORDERED: LIDOCAINE PATCH REMOVAL MC SCH ×2 (07:00→22:00)
[2021-12-01 07:28] LABS: EOS % 3.5 % (0-4.5); HEMATOCRIT 25.3 % (32.4-45.2); HEMOGLOBIN 8.4 GM/dL (10.7-15.3); LYMPH % 33.3 % (8-40); MCH 30.2 pg (25.7-33.7); MCHC 33.3 g/dl (32.0-36.0); MEAN CELL VOLUME 90.8 fl (80-96); MEAN PLT VOLUME 9.3 fl (7.5-11.1); MONO % 12.3 % (3.8-10.2); NEUT % 49.9 % (42.8-82.8); PLATELET COUNT 216 10^3/uL (134-434); RBC 2.79 M/mm3 (3.60-5.2); RDW 14.1 % (11.6-15.6)
[2021-12-01 07:54] LABS: CALCIUM 8.4 mg/dL (8.5-10.1)
[2021-12-01 07:55] LABS: BLOOD UREA NITROGEN 36.1 mg/dL (7-18)
[2021-12-01 07:58] LABS: ALBUMIN 3.2 g/dl (3.4-5.0); CREATININE 2.2 mg/dL (0.55-1.3)
[2021-12-01 07:59] LABS: BILIRUBIN,TOTAL 0.4 mg/dL (0.2-1); TOT PROT 6.7 g/dl (6.4-8.2)
[2021-12-01] MEDS: BUDESONIDE/FORMETEROL FUMARATE 160/4.5 mcg INHALER IH SCH ×2 (11:27→21:39)
[2021-12-01] MEDS ORDERED: WARFARIN NA 5 MG TABLET PO SCH (18:00)
[2021-12-01] MEDS: ACETAMINOPHEN 500 MG TABLET (FP) PO SCH (18:37)
[2021-12-01] MEDS: LIDOCAINE 5% TOPICAL PATCH TP SCH (18:37)
[2021-12-01] MEDS: FAMOTIDINE 10 MG TABLET PO SCH (21:25)
[2021-12-01] MEDS: ATORVASTATIN CA 10 MG TABLET (FP) PO SCH (21:25)
[2021-12-02] MEDS: ACETAMINOPHEN 500 MG TABLET (FP) PO SCH ×5 (00:54→23:36)
[2021-12-02 10:11] LABS: EOS % 3.7 % (0-4.5); HEMATOCRIT 25.9 % (32.4-45.2); HEMOGLOBIN 8.7 GM/dL (10.7-15.3); LYMPH % 30.6 % (8-40); MCHC 33.7 g/dl (32.0-36.0); MEAN CELL VOLUME 91.8 fl (80-96); MONO % 11.3 % (3.8-10.2); NEUT % 53.4 % (42.8-82.8); PLATELET COUNT 195 10^3/uL (134-434); RBC 2.82 M/mm3 (3.60-5.2); RDW 14.2 % (11.6-15.6); WHITE BLOOD COUNT 5.6 K/mm3 (4.0-10.0)
[2021-12-02 10:15] LABS: INR 2.32 (0.83-1.09); PROTHROMBIN TIME (PATIENT) 26.9 SEC (9.7-13.0)
[2021-12-02 10:30] LABS: ALBUMIN 3.1 g/dl (3.4-5.0)
[2021-12-02 10:33] LABS: CALCIUM 8.4 mg/dL (8.5-10.1)
[2021-12-02 10:34] LABS: CREATININE 2.1 mg/dL (0.55-1.3)
[2021-12-02 10:36] LABS: BILIRUBIN,TOTAL 0.5 mg/dL (0.2-1); TOT PROT 6.7 g/dl (6.4-8.2)
[2021-12-02] MEDS: LIDOCAINE 5% TOPICAL PATCH TP SCH (10:44)
[2021-12-02] MEDS: BUDESONIDE/FORMETEROL FUMARATE 160/4.5 mcg INHALER IH SCH ×2 (10:59→22:12)
[2021-12-02] MEDS ORDERED: ENOXAPARIN NA (PORCINE) 80 MG/0.8 ML DISP.SYRIN SQ ONE (14:45)
[2021-12-02] MEDS: WARFARIN NA 5 MG, WARFARIN NA 2 MG PO SCH (17:38)
[2021-12-02] MEDS ORDERED: WARFARIN NA 5 MG TABLET PO SCH (18:00)
[2021-12-02] MEDS ORDERED: WARFARIN NA PO SCH (18:00)
[2021-12-02] MEDS ORDERED: WARFARIN NA 1 MG TABLET PO SCH (18:00)
[2021-12-02] MEDS ORDERED: LIDOCAINE 5% TOPICAL PATCH TP SCH (22:00)
[2021-12-02] MEDS: ATORVASTATIN CA 10 MG TABLET (FP) PO SCH (22:12)
[2021-12-02] MEDS: FAMOTIDINE 10 MG TABLET PO SCH (22:12)
[2021-12-02] MEDS ORDERED: LIDOCAINE PATCH REMOVAL MC SCH (22:30)
[2021-12-03] MEDS: LEVOTHYROXINE NA 25 MCG TABLET (FP) PO SCH (06:05)
[2021-12-03] MEDS: ACETAMINOPHEN 500 MG TABLET (FP) PO SCH ×4 (06:05→23:55)
[2021-12-03] MEDS: LIPASE/PROTEASE/AMYLASE 36,000 UNIT CAPSULE PO SCH ×3 (08:00→17:29)
[2021-12-03 09:13] LABS: BASO % 0.5 % (0-2.0); EOS % 3.6 % (0-4.5); HEMOGLOBIN 8.3 GM/dL (10.7-15.3); LYMPH % 26.8 % (8-40); MCH 31.2 pg (25.7-33.7); MCHC 34.5 g/dl (32.0-36.0); MEAN CELL VOLUME 90.5 fl (80-96); MONO % 11.7 % (3.8-10.2); NEUT % 57.4 % (42.8-82.8); PLATELET COUNT 191 10^3/uL (134-434); RBC 2.65 M/mm3 (3.60-5.2); RDW 13.9 % (11.6-15.6); WHITE BLOOD COUNT 5.8 K/mm3 (4.0-10.0)
[2021-12-03 09:16] LABS: INR 2.71 (0.83-1.09); PROTHROMBIN TIME (PATIENT) 31.5 SEC (9.7-13.0)
[2021-12-03] MEDS: VERAPAMIL HCL 240 MG E.R. TABLET PO SCH (09:28)
[2021-12-03] MEDS: CITALOPRAM HYDROBROMIDE 10 MG TABLET PO SCH (09:28)
[2021-12-03] MEDS: TOPIRAMATE 100 MG TABLET PO SCH ×2 (09:29→21:33)
[2021-12-03] MEDS: BUDESONIDE/FORMETEROL FUMARATE 160/4.5 mcg INHALER IH SCH ×2 (09:30→21:41)
[2021-12-03] MEDS: LIDOCAINE PATCH REMOVAL MC SCH (09:30)
[2021-12-03] MEDS: LIDOCAINE 5% TOPICAL PATCH TP SCH (09:30)
[2021-12-03 09:32] LABS: CALCIUM 8.6 mg/dL (8.5-10.1)
[2021-12-03 09:33] LABS: BLOOD UREA NITROGEN 30.1 mg/dL (7-18)
[2021-12-03] MEDS ORDERED: IRON SUCROSE INJECTION 200 MG in SODIUM CHLORIDE 90 ML IVPB ONE (14:09)
[2021-12-03] MEDS: WARFARIN NA 10 MG, WARFARIN NA 1 MG PO SCH (17:28)
[2021-12-03] MEDS ORDERED: WARFARIN NA 5 MG TABLET PO SCH (18:00)
[2021-12-03] MEDS: FAMOTIDINE 10 MG TABLET PO SCH (21:33)
[2021-12-03] MEDS: ATORVASTATIN CA 10 MG TABLET (FP) PO SCH (21:33)
[2021-12-03] MEDS ORDERED: PATIENT'S OWN MEDICATION (NON-FORMULARY) (Famotidine [Pepcid] 40 MG Tablet) PO SCH (22:00)
[2021-12-04] MEDS: ACETAMINOPHEN 500 MG TABLET (FP) PO SCH ×4 (06:00→23:42)
[2021-12-04] MEDS: LEVOTHYROXINE NA 25 MCG TABLET (FP) PO SCH (06:01)
[2021-12-04] MEDS ORDERED: LIPASE/PROTEASE/AMYLASE 36,000 UNIT CAPSULE PO ONE (08:00)
[2021-12-04] MEDS: LIPASE/PROTEASE/AMYLASE 36,000 UNIT CAPSULE PO SCH ×3 (09:00→16:30)
[2021-12-04 09:20] LABS: CALCIUM 8.4 mg/dL (8.5-10.1)
[2021-12-04 09:21] LABS: ALBUMIN 3.2 g/dl (3.4-5.0); BLOOD UREA NITROGEN 23.3 mg/dL (7-18)
[2021-12-04 09:24] LABS: CREATININE 1.8 mg/dL (0.55-1.3)
[2021-12-04 09:26] LABS: BILIRUBIN,TOTAL 0.2 mg/dL (0.2-1)
[2021-12-04] MEDS: LIDOCAINE PATCH REMOVAL MC SCH (09:27)
[2021-12-04] MEDS: VERAPAMIL HCL 240 MG E.R. TABLET PO SCH (09:27)
[2021-12-04] MEDS: LIDOCAINE 5% TOPICAL PATCH TP SCH (09:27)
[2021-12-04] MEDS: CITALOPRAM HYDROBROMIDE 10 MG TABLET PO SCH (09:27)
[2021-12-04] MEDS: BUDESONIDE/FORMETEROL FUMARATE 160/4.5 mcg INHALER IH SCH ×2 (09:28→21:26)
[2021-12-04] MEDS: TOPIRAMATE 100 MG TABLET PO SCH ×2 (09:28→21:26)
[2021-12-04] MEDS: WARFARIN NA 10 MG, WARFARIN NA 1 MG PO SCH (17:27)
[2021-12-04] MEDS: FAMOTIDINE 10 MG TABLET PO SCH (21:26)
[2021-12-04] MEDS: ATORVASTATIN CA 10 MG TABLET (FP) PO SCH (21:26)
[2021-12-05] MEDS: LEVOTHYROXINE NA 25 MCG TABLET (FP) PO SCH (06:27)
[2021-12-05] MEDS: ACETAMINOPHEN 500 MG TABLET (FP) PO SCH ×4 (06:27→18:34)
[2021-12-05] MEDS: LIPASE/PROTEASE/AMYLASE 36,000 UNIT CAPSULE PO SCH ×3 (08:12→16:59)
[2021-12-05 08:31] LABS: INR 3.96 (0.83-1.09); PROTHROMBIN TIME (PATIENT) 46.2 SEC (9.7-13.0)
[2021-12-05 08:33] LABS: ALBUMIN 3.4 g/dl (3.4-5.0); BLOOD UREA NITROGEN 23.3 mg/dL (7-18); CALCIUM 8.7 mg/dL (8.5-10.1)
[2021-12-05 08:36] LABS: CREATININE 1.8 mg/dL (0.55-1.3)
[2021-12-05 08:38] LABS: BILIRUBIN,TOTAL 0.2 mg/dL (0.2-1); TOT PROT 6.8 g/dl (6.4-8.2)
[2021-12-05] MEDS ORDERED: methylPREDNISolone NA SUCC 40 MG/1 ML VIAL IVPUSH ONE (09:55)
[2021-12-05] MEDS: PANTOPRAZOLE SODIUM 40 MG VIAL IVPUSH SCH (10:36)
[2021-12-05] MEDS: CITALOPRAM HYDROBROMIDE 10 MG TABLET PO SCH (10:36)
[2021-12-05] MEDS: BUDESONIDE/FORMETEROL FUMARATE 160/4.5 mcg INHALER IH SCH ×2 (10:37→22:04)
[2021-12-05] MEDS: LIDOCAINE 5% TOPICAL PATCH TP SCH (10:38)
[2021-12-05] MEDS: TOPIRAMATE 100 MG TABLET PO SCH ×2 (10:38→22:04)
[2021-12-05] MEDS: LIDOCAINE PATCH REMOVAL MC SCH (10:38)
[2021-12-05] MEDS: VERAPAMIL HCL 240 MG E.R. TABLET PO SCH (10:39)
[2021-12-05] MEDS: ALBUTEROL SO4 2.5/IPRATROPIUM 0.5 INH SOL 3 ML VIAL.NEB. NEB SCH ×2 (14:16→20:25)
[2021-12-05] MEDS ORDERED: WARFARIN NA 3 MG TABLET PO SCH (18:00)
[2021-12-05] MEDS: WARFARIN NA 5 MG, WARFARIN NA 2 MG PO SCH (18:33)
[2021-12-05] MEDS: ATORVASTATIN CA 10 MG TABLET (FP) PO SCH (22:03)
[2021-12-05] MEDS: FAMOTIDINE 10 MG TABLET PO SCH (22:03)
[2021-12-05] MEDS ORDERED: ACETAMINOPHEN 1000 MG/100 ML BAG IVPB ONE (22:50)
[2021-12-05] MEDS ORDERED: ONDANSETRON 4 MG TABLET PO ONE (22:50)
[2021-12-05] MEDS: MELATONIN 5 MG TABLETS PO PRN (23:19)
[2021-12-06] MEDS: ACETAMINOPHEN 500 MG TABLET (FP) PO SCH ×5 (01:45→23:33)
[2021-12-06] MEDS: LEVOTHYROXINE NA 25 MCG TABLET (FP) PO SCH (06:01)
[2021-12-06 07:44] LABS: HEMOGLOBIN 8.4 GM/dL (10.7-15.3); MCH 30.3 pg (25.7-33.7); MCHC 33.4 g/dl (32.0-36.0); MEAN CELL VOLUME 90.7 fl (80-96); MEAN PLT VOLUME 9.1 fl (7.5-11.1); PLATELET COUNT 232 10^3/uL (134-434); RBC 2.76 M/mm3 (3.60-5.2); RDW 13.8 % (11.6-15.6); WHITE BLOOD COUNT 8.6 K/mm3 (4.0-10.0)
[2021-12-06] MEDS: ALBUTEROL SO4 2.5/IPRATROPIUM 0.5 INH SOL 3 ML VIAL.NEB. NEB SCH ×3 (07:45→20:41)
[2021-12-06 08:11] LABS: ALBUMIN 3.3 g/dl (3.4-5.0); BLOOD UREA NITROGEN 24.9 mg/dL (7-18); CALCIUM 8.7 mg/dL (8.5-10.1)
[2021-12-06 08:14] LABS: CREATININE 1.9 mg/dL (0.55-1.3)
[2021-12-06 08:16] LABS: BILIRUBIN,TOTAL 0.2 mg/dL (0.2-1); TOT PROT 6.7 g/dl (6.4-8.2)
[2021-12-06] MEDS: PIPERACILLIN/TAZOB 3.375 GM 3.375 GM in DEXTROSE 5%-WATER - 50 ML IVPB SCH ×4 (09:14→18:51)
[2021-12-06] MEDS: LIPASE/PROTEASE/AMYLASE 36,000 UNIT CAPSULE PO SCH ×3 (09:15→18:15)
[2021-12-06] MEDS: VERAPAMIL HCL 240 MG E.R. TABLET PO SCH (09:15)
[2021-12-06] MEDS: CITALOPRAM HYDROBROMIDE 10 MG TABLET PO SCH (09:18)
[2021-12-06] MEDS: LIDOCAINE 5% TOPICAL PATCH TP SCH (09:18)
[2021-12-06] MEDS: PANTOPRAZOLE SODIUM 40 MG VIAL IVPUSH SCH (09:18)
[2021-12-06] MEDS: BUDESONIDE/FORMETEROL FUMARATE 160/4.5 mcg INHALER IH SCH ×2 (09:34→21:36)
[2021-12-06] MEDS: LIDOCAINE PATCH REMOVAL MC SCH (09:34)
[2021-12-06] MEDS: TOPIRAMATE 100 MG TABLET PO SCH ×2 (10:37→21:36)
[2021-12-06] MEDS ORDERED: DIPHENOXYLATE 2.5/ATROPINE.025 1 COMBO TABLET PO ONE ×2 (16:00→18:30)
[2021-12-06] MEDS: PIPERACILLIN/TAZOB 2.25 GM 2.25 GM in DEXTROSE 5%-WATER - 50 ML IVPB SCH (18:17)
[2021-12-06] MEDS ORDERED: PIPERACILLIN/TAZOBACTAM 2.25 GM VIAL IVPB ONE (18:19)
[2021-12-06 19:26] LABS: PROTHROMBIN TIME (PATIENT) 53.6 SEC (9.7-13.0)
[2021-12-06 19:46] LABS: INR 4.59 (0.83-1.09)
[2021-12-06] MEDS: WARFARIN NA 10 MG, WARFARIN NA 1 MG PO SCH (21:34)
[2021-12-06] MEDS: FAMOTIDINE 10 MG TABLET PO SCH (21:35)
[2021-12-06] MEDS: ATORVASTATIN CA 10 MG TABLET (FP) PO SCH (21:35)
[2021-12-06] MEDS: MELATONIN 5 MG TABLETS PO PRN (21:36)
[2021-12-07] MEDS: PIPERACILLIN/TAZOB 2.25 GM 2.25 GM in DEXTROSE 5%-WATER - 50 ML IVPB SCH ×3 (01:05→17:02)
[2021-12-07] MEDS: ACETAMINOPHEN 500 MG TABLET (FP) PO SCH ×4 (06:18→23:42)
[2021-12-07] MEDS: LEVOTHYROXINE NA 25 MCG TABLET (FP) PO SCH (06:18)
[2021-12-07] MEDS: ALBUTEROL SO4 2.5/IPRATROPIUM 0.5 INH SOL 3 ML VIAL.NEB. NEB SCH ×3 (07:27→20:32)
[2021-12-07] MEDS: LIPASE/PROTEASE/AMYLASE 36,000 UNIT CAPSULE PO SCH ×3 (07:59→16:59)
[2021-12-07 08:37] LABS: BASO % 0.9 % (0-2.0); HEMATOCRIT 25.1 % (32.4-45.2); HEMOGLOBIN 8.5 GM/dL (10.7-15.3); MCH 31.2 pg (25.7-33.7); MEAN CELL VOLUME 91.7 fl (80-96); MEAN PLT VOLUME 8.7 fl (7.5-11.1); MONO % 12.2 % (3.8-10.2); NEUT % 57.9 % (42.8-82.8); PLATELET COUNT 203 10^3/uL (134-434); RBC 2.74 M/mm3 (3.60-5.2); RDW 14.2 % (11.6-15.6); WHITE BLOOD COUNT 6.2 K/mm3 (4.0-10.0)
[2021-12-07 08:46] LABS: PROTHROMBIN TIME (PATIENT) 48.9 SEC (9.7-13.0)
[2021-12-07 08:57] LABS: CALCIUM 8.4 mg/dL (8.5-10.1)
[2021-12-07 08:58] LABS: ALBUMIN 3.4 g/dl (3.4-5.0); BLOOD UREA NITROGEN 22.4 mg/dL (7-18)
[2021-12-07 09:02] LABS: BILIRUBIN,TOTAL 0.3 mg/dL (0.2-1); TOT PROT 6.8 g/dl (6.4-8.2)
[2021-12-07 09:08] LABS: INR 4.19 (0.83-1.09)
[2021-12-07] MEDS: LIDOCAINE 5% TOPICAL PATCH TP SCH (09:52)
[2021-12-07] MEDS: PANTOPRAZOLE SODIUM 40 MG VIAL IVPUSH SCH (09:52)
[2021-12-07] MEDS: CITALOPRAM HYDROBROMIDE 10 MG TABLET PO SCH (09:53)
[2021-12-07] MEDS: LIDOCAINE PATCH REMOVAL MC SCH (10:03)
[2021-12-07 10:07] LABS: RETICULOCYTES 1.98 % (0.5-1.5)
[2021-12-07] MEDS: TOPIRAMATE 100 MG TABLET PO SCH ×2 (10:43→22:01)
[2021-12-07] MEDS: VERAPAMIL HCL 240 MG E.R. TABLET PO SCH (10:43)
[2021-12-07] MEDS: BUDESONIDE/FORMETEROL FUMARATE 160/4.5 mcg INHALER IH SCH ×2 (10:45→22:02)
[2021-12-07] MEDS ORDERED: LOPERAMIDE HCL 2 MG CAPSULE PO ONE ×2 (16:02→22:14)
[2021-12-07] MEDS: MELATONIN 5 MG TABLETS PO PRN (22:01)
[2021-12-07] MEDS: FAMOTIDINE 10 MG TABLET PO SCH (22:02)
[2021-12-07] MEDS: ATORVASTATIN CA 10 MG TABLET (FP) PO SCH (22:02)
[2021-12-08] MEDS: PIPERACILLIN/TAZOB 2.25 GM 2.25 GM in DEXTROSE 5%-WATER - 50 ML IVPB SCH ×3 (01:40→18:24)
[2021-12-08] MEDS: LEVOTHYROXINE NA 25 MCG TABLET (FP) PO SCH (06:15)
[2021-12-08] MEDS: ACETAMINOPHEN 500 MG TABLET (FP) PO SCH ×4 (06:16→23:33)
[2021-12-08] MEDS: ALBUTEROL SO4 2.5/IPRATROPIUM 0.5 INH SOL 3 ML VIAL.NEB. NEB SCH ×3 (07:30→20:14)
[2021-12-08] MEDS: LIPASE/PROTEASE/AMYLASE 36,000 UNIT CAPSULE PO SCH ×3 (08:40→18:23)
[2021-12-08 08:41] LABS: INR 2.98 (0.83-1.09); PROTHROMBIN TIME (PATIENT) 34.6 SEC (9.7-13.0)
[2021-12-08] MEDS: VERAPAMIL HCL 240 MG E.R. TABLET PO SCH (09:16)
[2021-12-08] MEDS: LIDOCAINE PATCH REMOVAL MC SCH (09:16)
[2021-12-08] MEDS: CITALOPRAM HYDROBROMIDE 10 MG TABLET PO SCH (09:16)
[2021-12-08] MEDS: LIDOCAINE 5% TOPICAL PATCH TP SCH (09:16)
[2021-12-08] MEDS: PANTOPRAZOLE SODIUM 40 MG VIAL IVPUSH SCH (09:16)
[2021-12-08] MEDS: BUDESONIDE/FORMETEROL FUMARATE 160/4.5 mcg INHALER IH SCH ×2 (09:17→21:54)
[2021-12-08] MEDS: TOPIRAMATE 100 MG TABLET PO SCH ×2 (09:17→21:53)
[2021-12-08] MEDS: CHOLESTYRAMINE/SUCROSE 4 GM PACKET PO SCH (13:51)
[2021-12-08] MEDS ORDERED: VANCOMYCIN/WATER FOR INJ (PEG) 1,000 MG/200 ML BAG IVPB ONE (16:03)
[2021-12-08] MEDS ORDERED: PIPERACILLIN/TAZOBACTAM 2.25 GM VIAL IVPB ONE (18:14)
[2021-12-08] MEDS: FAMOTIDINE 10 MG TABLET PO SCH (21:52)
[2021-12-08] MEDS: ATORVASTATIN CA 10 MG TABLET (FP) PO SCH (21:52)
[2021-12-08] MEDS: MELATONIN 5 MG TABLETS PO PRN (23:32)
[2021-12-09] MEDS: PIPERACILLIN/TAZOB 2.25 GM 2.25 GM in DEXTROSE 5%-WATER - 50 ML IVPB SCH ×3 (01:30→17:15)
[2021-12-09] MEDS: LEVOTHYROXINE NA 25 MCG TABLET (FP) PO SCH (06:51)
[2021-12-09] MEDS: ACETAMINOPHEN 500 MG TABLET (FP) PO SCH ×3 (06:51→18:02)
[2021-12-09] MEDS: ALBUTEROL SO4 2.5/IPRATROPIUM 0.5 INH SOL 3 ML VIAL.NEB. NEB SCH ×3 (08:02→20:23)
[2021-12-09] MEDS: LIPASE/PROTEASE/AMYLASE 36,000 UNIT CAPSULE PO SCH ×3 (08:20→16:32)
[2021-12-09] MEDS: PANTOPRAZOLE SODIUM 40 MG VIAL IVPUSH SCH (09:38)
[2021-12-09] MEDS: CITALOPRAM HYDROBROMIDE 10 MG TABLET PO SCH (09:38)
[2021-12-09] MEDS: LIDOCAINE 5% TOPICAL PATCH TP SCH (09:38)
[2021-12-09] MEDS: LIDOCAINE PATCH REMOVAL MC SCH (09:39)
[2021-12-09] MEDS: VERAPAMIL HCL 240 MG E.R. TABLET PO SCH (09:40)
[2021-12-09] MEDS: BUDESONIDE/FORMETEROL FUMARATE 160/4.5 mcg INHALER IH SCH ×2 (09:41→21:21)
[2021-12-09] MEDS: CHOLESTYRAMINE/SUCROSE 4 GM PACKET PO SCH (09:41)
[2021-12-09] MEDS: TOPIRAMATE 100 MG TABLET PO SCH ×2 (09:42→21:22)
[2021-12-09] MEDS: WARFARIN NA 5 MG TABLET PO SCH (17:15)
[2021-12-09 18:08] LABS: FREE KAPPA,SERUM 48.6 mg/L (3.3-19.4)
[2021-12-09] MEDS: MELATONIN 5 MG TABLETS PO PRN (21:21)
[2021-12-09] MEDS: LOPERAMIDE HCL 2 MG CAPSULE PO PRN (21:21)
[2021-12-09] MEDS: FAMOTIDINE 10 MG TABLET PO SCH (21:21)
[2021-12-09] MEDS: ATORVASTATIN CA 10 MG TABLET (FP) PO SCH (21:21)
[2021-12-10] MEDS: ACETAMINOPHEN 500 MG TABLET (FP) PO SCH ×5 (01:00→23:32)
[2021-12-10] MEDS: PIPERACILLIN/TAZOB 2.25 GM 2.25 GM in DEXTROSE 5%-WATER - 50 ML IVPB SCH ×3 (02:06→17:07)
[2021-12-10] MEDS: LEVOTHYROXINE NA 25 MCG TABLET (FP) PO SCH (06:14)
[2021-12-10] MEDS ORDERED: VANCOMYCIN 1,000 MG in DEXTROSE 5%-WATER - 250 ML IVPB ONE (06:52)
[2021-12-10] MEDS ORDERED: VANCOMYCIN/WATER FOR INJ (PEG) 1,000 MG/200 ML BAG IVPB ONE (07:09)
[2021-12-10] MEDS: ALBUTEROL SO4 2.5/IPRATROPIUM 0.5 INH SOL 3 ML VIAL.NEB. NEB SCH (07:59)
[2021-12-10 08:17] LABS: BLOOD UREA NITROGEN 14.9 mg/dL (7-18); CALCIUM 8.3 mg/dL (8.5-10.1); INR 3.16 (0.83-1.09); PROTHROMBIN TIME (PATIENT) 36.8 SEC (9.7-13.0)
[2021-12-10 08:18] LABS: ALBUMIN 3.1 g/dl (3.4-5.0); BASO % 0.7 % (0-2.0); EOS % 4.3 % (0-4.5); HEMATOCRIT 24.4 % (32.4-45.2); HEMOGLOBIN 8.1 GM/dL (10.7-15.3); LYMPH % 13.1 % (8-40); MCH 30.4 pg (25.7-33.7); MCHC 33.2 g/dl (32.0-36.0); MEAN CELL VOLUME 91.6 fl (80-96); MONO % 9.8 % (3.8-10.2); NEUT % 72.1 % (42.8-82.8); PLATELET COUNT 248 10^3/uL (134-434); RBC 2.67 M/mm3 (3.60-5.2); RDW 14.2 % (11.6-15.6); WHITE BLOOD COUNT 7.7 K/mm3 (4.0-10.0)
[2021-12-10 08:21] LABS: CREATININE 1.7 mg/dL (0.55-1.3)
[2021-12-10 08:22] LABS: BILIRUBIN,TOTAL 0.2 mg/dL (0.2-1); TOT PROT 6.3 g/dl (6.4-8.2)
[2021-12-10] MEDS: CITALOPRAM HYDROBROMIDE 10 MG TABLET PO SCH (09:56)
[2021-12-10] MEDS: LIPASE/PROTEASE/AMYLASE 36,000 UNIT CAPSULE PO SCH ×3 (09:57→17:07)
[2021-12-10] MEDS: LIDOCAINE 5% TOPICAL PATCH TP SCH (09:57)
[2021-12-10] MEDS: PANTOPRAZOLE SODIUM 40 MG VIAL IVPUSH SCH (09:57)
[2021-12-10] MEDS: BUDESONIDE/FORMETEROL FUMARATE 160/4.5 mcg INHALER IH SCH ×2 (09:58→21:45)
[2021-12-10] MEDS: VERAPAMIL HCL 240 MG E.R. TABLET PO SCH (09:58)
[2021-12-10] MEDS: CHOLESTYRAMINE/SUCROSE 4 GM PACKET PO SCH (09:58)
[2021-12-10] MEDS: TOPIRAMATE 100 MG TABLET PO SCH ×2 (09:59→21:45)
[2021-12-10] MEDS: LIDOCAINE PATCH REMOVAL MC SCH (10:03)
[2021-12-10 11:36] LABS: RETICULOCYTES 2.22 % (0.5-1.5)
[2021-12-10] MEDS: WARFARIN NA 5 MG TABLET PO SCH (17:07)
[2021-12-10] MEDS: ATORVASTATIN CA 10 MG TABLET (FP) PO SCH (21:45)
[2021-12-10] MEDS: MELATONIN 5 MG TABLETS PO PRN (21:45)
[2021-12-10] MEDS: FAMOTIDINE 10 MG TABLET PO SCH (21:45)
[2021-12-11] MEDS: PIPERACILLIN/TAZOB 2.25 GM 2.25 GM in DEXTROSE 5%-WATER - 50 ML IVPB SCH ×3 (02:41→17:20)
[2021-12-11] MEDS: ACETAMINOPHEN 500 MG TABLET (FP) PO SCH ×3 (06:18→18:49)
[2021-12-11] MEDS: LEVOTHYROXINE NA 25 MCG TABLET (FP) PO SCH (06:32)
[2021-12-11 08:34] LABS: PROTHROMBIN TIME (PATIENT) 60.4 SEC (9.7-13.0)
[2021-12-11 09:03] LABS: INR 5.17 (0.83-1.09)
[2021-12-11] MEDS: VERAPAMIL HCL 240 MG E.R. TABLET PO SCH (09:47)
[2021-12-11] MEDS: LIPASE/PROTEASE/AMYLASE 36,000 UNIT CAPSULE PO SCH ×3 (09:47→17:19)
[2021-12-11] MEDS: LIDOCAINE 5% TOPICAL PATCH TP SCH (09:48)
[2021-12-11] MEDS: TOPIRAMATE 100 MG TABLET PO SCH ×2 (09:48→21:03)
[2021-12-11] MEDS: CITALOPRAM HYDROBROMIDE 10 MG TABLET PO SCH (09:49)
[2021-12-11] MEDS: PANTOPRAZOLE SODIUM 40 MG VIAL IVPUSH SCH (09:49)
[2021-12-11] MEDS: CHOLESTYRAMINE/SUCROSE 4 GM PACKET PO SCH (09:49)
[2021-12-11] MEDS: LIDOCAINE PATCH REMOVAL MC SCH (09:50)
[2021-12-11] MEDS: BUDESONIDE/FORMETEROL FUMARATE 160/4.5 mcg INHALER IH SCH ×2 (09:50→21:03)
[2021-12-11] MEDS: LOPERAMIDE HCL 2 MG CAPSULE PO PRN (21:02)
[2021-12-11] MEDS: FAMOTIDINE 10 MG TABLET PO SCH (21:03)
[2021-12-11] MEDS: ATORVASTATIN CA 10 MG TABLET (FP) PO SCH (21:03)
[2021-12-11] MEDS: MELATONIN 5 MG TABLETS PO PRN (21:03)
[2021-12-12] MEDS: ACETAMINOPHEN 500 MG TABLET (FP) PO SCH ×4 (00:27→18:08)
[2021-12-12] MEDS: PIPERACILLIN/TAZOB 2.25 GM 2.25 GM in DEXTROSE 5%-WATER - 50 ML IVPB SCH ×3 (02:33→17:25)
[2021-12-12] MEDS: LEVOTHYROXINE NA 25 MCG TABLET (FP) PO SCH (06:27)
[2021-12-12] MEDS: LIPASE/PROTEASE/AMYLASE 36,000 UNIT CAPSULE PO SCH ×3 (08:01→17:26)
[2021-12-12 09:51] LABS: PROTHROMBIN TIME (PATIENT) 62.4 SEC (9.7-13.0)
[2021-12-12] MEDS: LIDOCAINE 5% TOPICAL PATCH TP SCH (10:02)
[2021-12-12] MEDS: CITALOPRAM HYDROBROMIDE 10 MG TABLET PO SCH (10:03)
[2021-12-12] MEDS: PANTOPRAZOLE SODIUM 40 MG VIAL IVPUSH SCH (10:03)
[2021-12-12 10:04] LABS: INR 5.34 (0.83-1.09)
[2021-12-12] MEDS: TOPIRAMATE 100 MG TABLET PO SCH ×2 (10:04→21:11)
[2021-12-12] MEDS: CHOLESTYRAMINE/SUCROSE 4 GM PACKET PO SCH (10:05)
[2021-12-12] MEDS: VERAPAMIL HCL 240 MG E.R. TABLET PO SCH (10:05)
[2021-12-12] MEDS: LIDOCAINE PATCH REMOVAL MC SCH (10:06)
[2021-12-12] MEDS: BUDESONIDE/FORMETEROL FUMARATE 160/4.5 mcg INHALER IH SCH ×2 (10:06→21:11)
[2021-12-12] MEDS ORDERED: LEVALBUTEROL HCL 0.31 MG/3 ML VIAL.NEB IH PRN (11:54)
[2021-12-12] MEDS: LOPERAMIDE HCL 2 MG CAPSULE PO PRN (18:09)
[2021-12-12] MEDS: DIPHENOXYLATE 2.5/ATROPINE.025 1 COMBO TABLET PO SCH (21:11)
[2021-12-12] MEDS: ATORVASTATIN CA 10 MG TABLET (FP) PO SCH (21:11)
[2021-12-12] MEDS: MELATONIN 5 MG TABLETS PO PRN (21:11)
[2021-12-12] MEDS: FAMOTIDINE 10 MG TABLET PO SCH (21:11)
[2021-12-13] MEDS: ACETAMINOPHEN 500 MG TABLET (FP) PO SCH ×4 (01:00→17:40)
[2021-12-13] MEDS: PIPERACILLIN/TAZOB 2.25 GM 2.25 GM in DEXTROSE 5%-WATER - 50 ML IVPB SCH ×2 (02:33→09:56)
[2021-12-13] MEDS: LEVOTHYROXINE NA 25 MCG TABLET (FP) PO SCH (06:34)
[2021-12-13] MEDS: LIPASE/PROTEASE/AMYLASE 36,000 UNIT CAPSULE PO SCH ×3 (08:00→16:31)
[2021-12-13 08:29] LABS: INR 3.88 (0.83-1.09); PROTHROMBIN TIME (PATIENT) 45.2 SEC (9.7-13.0)
[2021-12-13] MEDS: PANTOPRAZOLE SODIUM 40 MG VIAL IVPUSH SCH (09:55)
[2021-12-13] MEDS: DIPHENOXYLATE 2.5/ATROPINE.025 1 COMBO TABLET PO SCH ×2 (09:56→21:28)
[2021-12-13] MEDS: CITALOPRAM HYDROBROMIDE 10 MG TABLET PO SCH (09:56)
[2021-12-13] MEDS: LIDOCAINE 5% TOPICAL PATCH TP SCH (09:57)
[2021-12-13] MEDS: LIDOCAINE PATCH REMOVAL MC SCH ×2 (09:57→21:45)
[2021-12-13] MEDS: VERAPAMIL HCL 240 MG E.R. TABLET PO SCH (09:57)
[2021-12-13] MEDS: BUDESONIDE/FORMETEROL FUMARATE 160/4.5 mcg INHALER IH SCH ×2 (09:58→21:30)
[2021-12-13] MEDS: TOPIRAMATE 100 MG TABLET PO SCH ×2 (09:58→21:28)
[2021-12-13] MEDS: CHOLESTYRAMINE/SUCROSE 4 GM PACKET PO SCH (10:37)
[2021-12-13] MEDS: WARFARIN NA 5 MG TABLET PO SCH (17:17)
[2021-12-13] MEDS: ATORVASTATIN CA 10 MG TABLET (FP) PO SCH (21:27)
[2021-12-13] MEDS: LOPERAMIDE HCL 2 MG CAPSULE PO PRN (21:28)
[2021-12-13] MEDS: MELATONIN 5 MG TABLETS PO PRN (21:28)
[2021-12-13] MEDS: FAMOTIDINE 10 MG TABLET PO SCH (21:28)
[2021-12-14] MEDS: ACETAMINOPHEN 500 MG TABLET (FP) PO SCH ×5 (00:10→18:17)
[2021-12-14] MEDS: LEVOTHYROXINE NA 25 MCG TABLET (FP) PO SCH (06:13)
[2021-12-14 07:03] LABS: CHLORIDE 119 mmol/L (98-107); SODIUM 145 mmol/L (136-145)
[2021-12-14 07:05] LABS: BLOOD UREA NITROGEN 10.6 mg/dL (7-18); CALCIUM 8.1 mg/dL (8.5-10.1)
[2021-12-14 07:06] LABS: ALBUMIN 2.7 g/dl (3.4-5.0); ANION GAP 8 MMOL/L (8-16); CO2 18 mmol/L (21-32); GLUCOSE,RANDOM 82 mg/dL (74-106)
[2021-12-14 07:08] LABS: SGPT/ALT < 6 U/L (13-61)
[2021-12-14 07:09] LABS: CREATININE 1.4 mg/dL (0.55-1.3); SGOT/AST 7 U/L (15-37)
[2021-12-14 07:10] LABS: BILIRUBIN,TOTAL 0.4 mg/dL (0.2-1); TOT PROT 5.8 g/dl (6.4-8.2)
[2021-12-14 07:11] LABS: ALK PHOS 81 U/L (45-117)
[2021-12-14 07:33] LABS: INR 2.79 (0.83-1.09); PROTHROMBIN TIME (PATIENT) 32.4 SEC (9.7-13.0)
[2021-12-14 07:46] LABS: HEMATOCRIT 23.2 % (32.4-45.2); HEMOGLOBIN 7.9 GM/dL (10.7-15.3); LYMPH % 20.7 % (8-40); MCH 30.7 pg (25.7-33.7); MCHC 34.1 g/dl (32.0-36.0); MEAN CELL VOLUME 90.2 fl (80-96); MEAN PLT VOLUME 8.2 fl (7.5-11.1); MONO % 11.5 % (3.8-10.2); NEUT % 63.8 % (42.8-82.8); PLATELET COUNT 302 10^3/uL (134-434); RBC 2.57 M/mm3 (3.60-5.2); RDW 14.2 % (11.6-15.6); WHITE BLOOD COUNT 8.2 K/mm3 (4.0-10.0)
[2021-12-14] MEDS: LIPASE/PROTEASE/AMYLASE 36,000 UNIT CAPSULE PO SCH ×3 (08:11→17:20)
[2021-12-14] MEDS: CITALOPRAM HYDROBROMIDE 10 MG TABLET PO SCH (10:06)
[2021-12-14] MEDS: DIPHENOXYLATE 2.5/ATROPINE.025 1 COMBO TABLET PO SCH ×2 (10:06→21:06)
[2021-12-14] MEDS: LIDOCAINE 5% TOPICAL PATCH TP SCH (10:06)
[2021-12-14] MEDS: VERAPAMIL HCL 240 MG E.R. TABLET PO SCH (10:07)
[2021-12-14] MEDS: PANTOPRAZOLE 40 MG TABLET PO SCH (10:07)
[2021-12-14] MEDS: CHOLESTYRAMINE/SUCROSE 4 GM PACKET PO SCH (10:08)
[2021-12-14] MEDS: TOPIRAMATE 100 MG TABLET PO SCH ×2 (10:09→21:07)
[2021-12-14] MEDS: BUDESONIDE/FORMETEROL FUMARATE 160/4.5 mcg INHALER IH SCH ×2 (10:20→21:07)
[2021-12-14] MEDS: traMADol HCL 50 MG TABLET PO PRN ×2 (11:01→21:06)
[2021-12-14] MEDS ORDERED: FUROSEMIDE 40 MG/4 ML INJECTABLE VIAL IVPUSH ONE (17:00)
[2021-12-14] MEDS: WARFARIN NA 5 MG TABLET PO SCH (17:19)
[2021-12-14] MEDS: MELATONIN 5 MG TABLETS PO PRN (21:06)
[2021-12-14] MEDS: FAMOTIDINE 10 MG TABLET PO SCH (21:06)
[2021-12-14] MEDS: ATORVASTATIN CA 10 MG TABLET (FP) PO SCH (21:06)
[2021-12-14] MEDS: LIDOCAINE PATCH REMOVAL MC SCH (21:07)
[2021-12-14] MEDS: BANATROL PLUS POWDER PACKET PO SCH (21:07)
[2021-12-14 22:37] VITALS: RESP 18
[2021-12-15] MEDS: ACETAMINOPHEN 500 MG TABLET (FP) PO SCH ×2 (00:13→06:31)
[2021-12-15] MEDS: LEVOTHYROXINE NA 25 MCG TABLET (FP) PO SCH (06:31)
[2021-12-15] MEDS: BANATROL PLUS POWDER PACKET PO SCH (06:31)
[2021-12-15 08:07] LABS: BASO % 1.1 % (0-2.0); HEMATOCRIT 29.4 % (32.4-45.2); HEMOGLOBIN 10.1 GM/dL (10.7-15.3); LYMPH % 19.1 % (8-40); MCH 30.3 pg (25.7-33.7); MCHC 34.5 g/dl (32.0-36.0); MEAN CELL VOLUME 87.7 fl (80-96); MONO % 11.7 % (3.8-10.2); NEUT % 65.1 % (42.8-82.8); PLATELET COUNT 334 10^3/uL (134-434); RBC 3.35 M/mm3 (3.60-5.2); RDW 15.2 % (11.6-15.6); WHITE BLOOD COUNT 8.9 K/mm3 (4.0-10.0)
[2021-12-15] MEDS: LIPASE/PROTEASE/AMYLASE 36,000 UNIT CAPSULE PO SCH (08:17)
[2021-12-15 09:41] VITALS: TEMP 98
[2021-12-15] MEDS: DIPHENOXYLATE 2.5/ATROPINE.025 1 COMBO TABLET PO SCH (10:19)
[2021-12-15] MEDS: PANTOPRAZOLE 40 MG TABLET PO SCH (10:19)
[2021-12-15] MEDS: LIDOCAINE 5% TOPICAL PATCH TP SCH (10:19)
[2021-12-15] MEDS: CITALOPRAM HYDROBROMIDE 10 MG TABLET PO SCH (10:19)
[2021-12-15] MEDS: TOPIRAMATE 100 MG TABLET PO SCH (10:21)
[2021-12-15] MEDS: VERAPAMIL HCL 240 MG E.R. TABLET PO SCH (10:22)
[2021-12-15] MEDS: BUDESONIDE/FORMETEROL FUMARATE 160/4.5 mcg INHALER IH SCH (10:22)
[2021-12-15] MEDS: CHOLESTYRAMINE/SUCROSE 4 GM PACKET PO SCH (10:22)
[2021-12-15 10:56] LABS: CALCIUM 8.2 mg/dL (8.5-10.1)
[2021-12-15 10:58] LABS: BLOOD UREA NITROGEN 11.3 mg/dL (7-18)
[2021-12-15 11:01] LABS: CREATININE 1.5 mg/dL (0.55-1.3)
[2021-12-15 11:03] LABS: BILIRUBIN,TOTAL 0.4 mg/dL (0.2-1); TOT PROT 6.2 g/dl (6.4-8.2)
[2021-12-15] MEDS ORDERED: POTASSIUM CHLORIDE TABS 20 MEQ TABLET.ER (FP) PO ONE (11:29)
[2021-12-15 12:26] VITALS: BP 138/52; PULSE 55
== END 2021-12-15 13:06 | disposition home or self-care (01) | DRG 392 ==
LOC: JER 15:54 → JERBED 18:48 → J4S 12-01 15:23 → OBSVTOIN 12-05 11:52
PROVIDERS: ADMIT Internal Medicine; ATTEND Family Medicine
PROC: 30233N1 Transfusion of Nonautologous Red Blood Cells into Peripheral Vein, Percutaneous Approach (ICD-10-PCS; principal; 2021-12-14)
DX: K57.92 Diverticulitis of intestine, part unspecified, without perforation or abscess without bleeding (principal); I13.0 Hypertensive heart and chronic kidney disease with heart failure and stage 1 through stage 4 chronic kidney disease, or unspecified chronic kidney disease; I50.32 Chronic diastolic (congestive) heart failure; J44.1 Chronic obstructive pulmonary disease with (acute) exacerbation; J96.11 Chronic respiratory failure with hypoxia; D68.61 Antiphospholipid syndrome; I95.9 Hypotension, unspecified; G20 Parkinson's disease; I25.10 Atherosclerotic heart disease of native coronary artery without angina pectoris; I48.0 Paroxysmal atrial fibrillation; G47.33 Obstructive sleep apnea (adult) (pediatric); M79.7 Fibromyalgia; R19.7 Diarrhea, unspecified; D64.9 Anemia, unspecified; R33.9 Retention of urine, unspecified; N18.9 Chronic kidney disease, unspecified; Z95.1 Presence of aortocoronary bypass graft; Z98.61 Coronary angioplasty status; E66.9 Obesity, unspecified; Z68.33 Body mass index [BMI] 33.0-33.9, adult
CPT/HCPCS: 0241U-QW; 36415; 36430; 70450-TC; 71045-TC-FY; 72100-TC-FY; 72170-TC-FY; 73521-TC-FY; 74176-TC; 76775-TC; 76856-TC; 80048; 80053; 81003; 82272; 82607; 82728; 82746; 82962; 83540; 83550; 83690; 83880; 83883; 84155; 84165; 84439; 84443; 84466; 84484; 85025; 85027; 85045; 85610; 85730; 86850; 86900; 86901; 86922; 87040; 87045; 87046; 87077; 87086; 87186; 87205; 87209; 87324; 87449; 93005; 93010; 94640; 97116-GP; 97162-GP; 99285-25; G0378; G0480; J1756; P9058

== ENCOUNTER 2023-09-28 14:15 | Inpatient (IN) | payer MEDICARE, OTHER ==
[2023-09-28 16:06] LABS: HEMATOCRIT 36.7 % (32.4-45.2); HEMOGLOBIN 11.6 G/dL (10.7-15.3); MCHC 31.7 g/dl (32.0-36.0); MEAN CELL VOLUME 91.6 fl (80-96); MEAN PLT VOLUME 9.3 fl (7.5-11.1); PLATELET COUNT 284.5 10^3/uL (134-434); RBC 4.01 10^6/uL (3.60-5.2); RDW 13.4 % (11.6-15.6); WHITE BLOOD COUNT 9.9 10^3/uL (4.0-10.8)
[2023-09-28 16:42] LABS: ALBUMIN 4.4 g/dl (3.4-5.0); BILIRUBIN,TOTAL 0.3 mg/dl (0.2-1); CALCIUM 9.5 mg/dl (8.5-10.1); CREATININE 1.9 mg/dl (0.6-1.3); MAGNESIUM 2.3 mg/dL (1.8-2.4); POTASSIUM 3.9 mmol/L (3.5-5.1); TOT PROT 7.4 g/dl (6.4-8.2)
[2023-09-28 17:04] LABS: INR 6.75 (0.83-1.09); PROTHROMBIN TIME (PATIENT) 72.8 SEC (9.7-13.0)
[2023-09-28 17:23] LABS: ACTIVATED PTT 115.4 SECONDS (25.2-36.5)
[2023-09-28 17:38] LABS: PLATELET ESTIMATE ADEQUATE
[2023-09-28] MEDS ORDERED: PHYTONADIONE 5 MG TABLET ONE (17:42)
[2023-09-28] MEDS: PHYTONADIONE 5 MG TABLET PO ONE (17:44)
[2023-09-28 18:06] LABS: HEMATOCRIT 33.4 % (32.4-45.2); HEMOGLOBIN 10.8 G/dL (10.7-15.3); MCH 29.5 pg (25.7-33.7); MCHC 32.2 g/dl (32.0-36.0); MEAN CELL VOLUME 91.5 fl (80-96); MEAN PLT VOLUME 8.9 fl (7.5-11.1); PLATELET COUNT 279.7 10^3/uL (134-434); RBC 3.65 10^6/uL (3.60-5.2); RDW 13.4 % (11.6-15.6); WHITE BLOOD COUNT 9.8 10^3/uL (4.0-10.8)
[2023-09-28 19:40] LABS: PLATELET ESTIMATE ADEQUATE
[2023-09-29] MEDS ORDERED: MELATONIN 5 MG TABLETS PO PRN (07:48)
[2023-09-29 08:33] LABS: INR 3.43 (0.83-1.09); PROTHROMBIN TIME (PATIENT) 37.7 SEC (9.7-13.0)
[2023-09-29 09:26] LABS: CALCIUM 9.2 mg/dl (8.5-10.1); CREATININE 1.9 mg/dl (0.6-1.3); POTASSIUM 4.1 mmol/L (3.5-5.1)
[2023-09-29] MEDS: TOPIRAMATE 100 MG TABLET PO SCH ×2 (10:06→22:18)
[2023-09-29] MEDS: DIGOXIN 0.125 MG TABLET PO SCH (10:06)
[2023-09-29] MEDS: VERAPAMIL HCL 240 MG E.R. TABLET PO SCH (10:06)
[2023-09-29] MEDS: CITALOPRAM HYDROBROMIDE 10 MG TABLET PO SCH (10:06)
[2023-09-29] MEDS: CHOLECALCIFEROL (VIT D3) 1,000 UNIT (25 MCG) TABLET PO SCH (10:06)
[2023-09-29] MEDS: FLUTICASONE/UMECLIDIN/VILANTER(200-62.5-25 TRELEGY ELLIPTA) INAHLER IH SCH (10:10)
[2023-09-29] MEDS: CHOLESTYRAMINE/SUCROSE 4 GM PACKET PO SCH (10:16)
[2023-09-29 11:34] LABS: BASO % 0.5 % (0-2.0); EOS % 2.7 % (0-4.5); HEMATOCRIT 33.1 % (32.4-45.2); HEMOGLOBIN 10.8 GM/dL (10.7-15.3); LYMPH % 28.9 % (8-40); MCH 29.4 pg (25.7-33.7); MCHC 32.5 g/dl (32.0-36.0); MEAN CELL VOLUME 90.4 fl (80-96); MEAN PLT VOLUME 9.2 fl (7.5-11.1); NEUT % 56.9 % (42.8-82.8); PLATELET COUNT 243 10^3/uL (134-434); RBC 3.66 M/mm3 (3.60-5.2); RDW 13.8 % (11.6-15.6); WHITE BLOOD COUNT 8.3 K/mm3 (4.0-10.0)
[2023-09-29] MEDS: PATIENT'S OWN MEDICATION (NON-FORMULARY) (Ferrous Sulfate [Feosol] 325 MG Tablet) PO SCH (13:03)
[2023-09-29] MEDS: PATIENT'S OWN MEDICATION (NON-FORMULARY) (Carbidopa/Levodopa [Carbidopa-Levodopa 10-100 Ta PO SCH (13:04)
[2023-09-29] MEDS: PANTOPRAZOLE SODIUM 40 MG VIAL IVPUSH SCH ×2 (15:58→22:18)
[2023-09-29] MEDS: CARBIDOPA PO SCH (15:59)
[2023-09-29] MEDS: LEVODOPA PO SCH (15:59)
[2023-09-29 21:43] LABS: HEMATOCRIT 30.8 % (32.4-45.2); HEMOGLOBIN 10.1 GM/dL (10.7-15.3); MCH 29.6 pg (25.7-33.7); MCHC 32.8 g/dl (32.0-36.0); MEAN CELL VOLUME 90.2 fl (80-96); MEAN PLT VOLUME 8.9 fl (7.5-11.1); PLATELET COUNT 254 10^3/uL (134-434); RBC 3.42 M/mm3 (3.60-5.2); RDW 13.6 % (11.6-15.6); WHITE BLOOD COUNT 8.7 K/mm3 (4.0-10.0)
[2023-09-29] MEDS ORDERED: MONTELUKAST NA 10 MG TABLET PO SCH (22:00)
[2023-09-29] MEDS ORDERED: ATORVASTATIN CA 10 MG TABLET (FP) PO SCH (22:00)
[2023-09-29] MEDS ORDERED: [UNRECOGNIZED DRUG - REMARK] PO SCH (22:00)
[2023-09-29] MEDS: MONTELUKAST NA 10 MG TABLET PO SCH (22:18)
[2023-09-29] MEDS: ATORVASTATIN CA 10 MG TABLET (FP) PO SCH (22:18)
[2023-09-29] MEDS: MELATONIN 5 MG TABLETS PO PRN (22:27)
[2023-09-30 08:50] LABS: EPI CELLS 9 /uL (0-25.1); HYALINE CASTS 0 /uL (0-3.1); PH,URINE 6.5 (5.0-8.0); URINE APPEARANCE CLEAR; URINE BACTERIA 223 /uL (0-1359); URINE BILIRUBIN NEGATIVE (NEGATIVE); URINE COLOR YELLOW; URINE GLUCOSE (UA) NEGATIVE (NEGATIVE); URINE KETONE NEGATIVE (NEGATIVE); URINE LEUK ESTERASE 2+ (NEGATIVE); URINE NITRITE NEGATIVE (NEGATIVE); URINE PROTEIN NEGATIVE (NEGATIVE); URINE RBC 20 /uL (0-23.9); URINE UROBILINOGEN 0.2 mg/dL (0.2-1.0); URINE WBC 164 /uL (0-25.8)
[2023-09-30] MEDS: VERAPAMIL HCL 240 MG E.R. TABLET PO SCH (09:18)
[2023-09-30] MEDS: CITALOPRAM HYDROBROMIDE 10 MG TABLET PO SCH (09:19)
[2023-09-30] MEDS: FERROUS SO4 325 MG TABLET (FP) PO SCH (09:19)
[2023-09-30] MEDS: CHOLESTYRAMINE/NUTRASWEET 4 GM PACKET PO SCH (09:22)
[2023-09-30] MEDS: DIGOXIN 0.125 MG TABLET PO SCH (09:23)
[2023-09-30 09:57] LABS: BASO % 0.5 % (0-2.0); EOS % 2.6 % (0-4.5); HEMATOCRIT 29.7 % (32.4-45.2); HEMOGLOBIN 9.8 GM/dL (10.7-15.3); INR 1.44 (0.83-1.09); LYMPH % 21.9 % (8-40); MCH 29.9 pg (25.7-33.7); MCHC 33.2 g/dl (32.0-36.0); MONO % 11.5 % (3.8-10.2); NEUT % 63.5 % (42.8-82.8); PLATELET COUNT 234 10^3/uL (134-434); PROTHROMBIN TIME (PATIENT) 16.4 SEC (9.7-13.0); RDW 13.6 % (11.6-15.6); WHITE BLOOD COUNT 8.2 K/mm3 (4.0-10.0)
[2023-09-30] MEDS: CARBIDOPA/LEVODOPA 10/100 TABLET (FP) PO SCH (11:31)
[2023-09-30] MEDS: FLUTICASONE/UMECLIDIN/VILANTER(200-62.5-25 TRELEGY ELLIPTA) INAHLER IH SCH (11:32)
[2023-09-30] MEDS: ENOXAPARIN NA (PORCINE) 80 MG/0.8 ML DISP.SYRIN SQ SCH (13:50)
[2023-09-30] MEDS: POLYETHYLENE GLYCOL (HEALTHYLAX) 3350 17 GM PACKET PO SCH (13:54)
[2023-09-30 14:35] LABS: ALBUMIN 3.1 g/dl (3.4-5.0); BILIRUBIN,TOTAL 0.4 mg/dL (0.2-1); BLOOD UREA NITROGEN 30.1 mg/dL (7-18); CALCIUM 8.5 mg/dL (8.5-10.1); CREATININE 1.7 mg/dL (0.55-1.3); POTASSIUM 4.5 mmol/L (3.5-5.1); TOT PROT 6.6 g/dl (6.4-8.2)
[2023-10-01 08:45] LABS: BASO % 0.8 % (0-2.0); EOS % 2.7 % (0-4.5); HEMATOCRIT 29.8 % (32.4-45.2); HEMOGLOBIN 9.7 GM/dL (10.7-15.3); LYMPH % 21.7 % (8-40); MCH 29.6 pg (25.7-33.7); MCHC 32.7 g/dl (32.0-36.0); MEAN CELL VOLUME 90.5 fl (80-96); MEAN PLT VOLUME 8.9 fl (7.5-11.1); MONO % 11.2 % (3.8-10.2); NEUT % 63.6 % (42.8-82.8); PLATELET COUNT 229 10^3/uL (134-434); RBC 3.29 M/mm3 (3.60-5.2); RDW 13.4 % (11.6-15.6); RETICULOCYTES 1.69 % (0.5-1.5); WHITE BLOOD COUNT 8.1 K/mm3 (4.0-10.0)
[2023-10-01 08:47] LABS: INR 1.16 (0.83-1.09); PROTHROMBIN TIME (PATIENT) 13.1 SEC (9.7-13.0)
[2023-10-01 09:12] LABS: POTASSIUM 4.6 mmol/L (3.5-5.1)
[2023-10-01 09:16] LABS: BLOOD UREA NITROGEN 31.2 mg/dL (7-18); CALCIUM 8.7 mg/dL (8.5-10.1)
[2023-10-01 09:17] LABS: ALBUMIN 3.2 g/dl (3.4-5.0)
[2023-10-01 09:19] LABS: CREATININE 1.7 mg/dL (0.55-1.3)
[2023-10-01 09:20] LABS: BILIRUBIN,TOTAL 0.3 mg/dL (0.2-1)
[2023-10-01 09:21] LABS: TOT PROT 6.4 g/dl (6.4-8.2)
[2023-10-01] MEDS: TORSEMIDE 100 MG TABLET PO SCH (10:22)
[2023-10-02 07:36] LABS: HEMATOCRIT 28.5 % (32.4-45.2); HEMOGLOBIN 9.4 GM/dL (10.7-15.3); MCH 29.5 pg (25.7-33.7); MCHC 33.1 g/dl (32.0-36.0); MEAN CELL VOLUME 89.4 fl (80-96); MEAN PLT VOLUME 8.5 fl (7.5-11.1); PLATELET COUNT 222 10^3/uL (134-434); RBC 3.19 M/mm3 (3.60-5.2); WHITE BLOOD COUNT 8.6 K/mm3 (4.0-10.0)
[2023-10-02 07:38] LABS: INR 1.06 (0.83-1.09)
[2023-10-02] MEDS ORDERED: INSULIN ASPART SLIDING SCALE (NOVOLOG) 1 VIAL SQ ONE (07:42)
[2023-10-02 08:01] LABS: CALCIUM 8.5 mg/dL (8.5-10.1)
[2023-10-02 08:02] LABS: ALBUMIN 3.3 g/dl (3.4-5.0); BLOOD UREA NITROGEN 32.7 mg/dL (7-18)
[2023-10-02 08:06] LABS: TOT PROT 6.6 g/dl (6.4-8.2)
[2023-10-02 08:07] LABS: BILIRUBIN,TOTAL 0.4 mg/dL (0.2-1)
[2023-10-02] MEDS: BISACODYL 5 MG TABLET.DR (FP) PO ONE (15:52)
[2023-10-02] MEDS: PEG 3350/NA SULF BICARB CL/KCL 4000 ML SOLN.RECON PO ONE (17:35)
[2023-10-02 18:07] LABS: GLIADIN ANTIBODY IGA 5 units (0-19); GLIADIN ANTIBODY IGG 2 units (0-19); TRANSGLUTAMINASE IGG 5 U/mL (0-5)
[2023-10-03 07:36] LABS: BASO % 1.1 % (0-2.0); EOS % 1.7 % (0-4.5); HEMATOCRIT 29.8 % (32.4-45.2); HEMOGLOBIN 9.8 GM/dL (10.7-15.3); LYMPH % 16.5 % (8-40); MCH 29.7 pg (25.7-33.7); MEAN CELL VOLUME 89.9 fl (80-96); MONO % 9.9 % (3.8-10.2); NEUT % 70.8 % (42.8-82.8); RBC 3.32 M/mm3 (3.60-5.2); RDW 13.2 % (11.6-15.6); WHITE BLOOD COUNT 11.2 K/mm3 (4.0-10.0)
[2023-10-03 07:51] LABS: INR 1.02 (0.83-1.09); PROTHROMBIN TIME (PATIENT) 11.7 SEC (9.7-13.0)
[2023-10-03 07:56] LABS: POTASSIUM 3.7 mmol/L (3.5-5.1)
[2023-10-03 08:04] LABS: CALCIUM 8.8 mg/dL (8.5-10.1)
[2023-10-03 08:06] LABS: ALBUMIN 3.5 g/dl (3.4-5.0)
[2023-10-03 08:09] LABS: CREATININE 1.8 mg/dL (0.55-1.3)
[2023-10-03 08:10] LABS: BILIRUBIN,TOTAL 0.5 mg/dL (0.2-1); TOT PROT 7.2 g/dl (6.4-8.2)
[2023-10-03] MEDS: ENOXAPARIN NA (PORCINE) 80 MG/0.8 ML DISP.SYRIN SQ ONE (17:23)
[2023-10-03] MEDS: ENOXAPARIN NA (PORCINE) 60 MG/0.6 ML DISP.SYRIN SQ SCH (17:24)
[2023-10-03] MEDS: MAGNESIUM CITRATE 300 ML BOTTLE PO ONE (21:58)
[2023-10-04] MEDS: WARFARIN NA 5 MG TABLET PO ONE (18:48)
[2023-10-05 06:48] VITALS: RESP 18
[2023-10-05] MEDS: PANTOPRAZOLE 20 MG TABLET PO SCH (10:20)
[2023-10-05 10:47] LABS: HEMATOCRIT 29.6 % (32.4-45.2); HEMOGLOBIN 9.8 GM/dL (10.7-15.3); MCHC 33.2 g/dl (32.0-36.0); MEAN CELL VOLUME 90.3 fl (80-96); MEAN PLT VOLUME 8.9 fl (7.5-11.1); PLATELET COUNT 260 10^3/uL (134-434); RBC 3.28 M/mm3 (3.60-5.2); RDW 13.3 % (11.6-15.6); WHITE BLOOD COUNT 8.5 K/mm3 (4.0-10.0)
[2023-10-05 11:03] LABS: POTASSIUM 3.8 mmol/L (3.5-5.1)
[2023-10-05 11:06] LABS: INR 0.97 (0.83-1.09)
[2023-10-05 11:17] LABS: CALCIUM 8.8 mg/dL (8.5-10.1)
[2023-10-05 11:18] LABS: ALBUMIN 3.5 g/dl (3.4-5.0)
[2023-10-05 11:21] LABS: CREATININE 2.1 mg/dL (0.55-1.3)
[2023-10-05 11:22] LABS: BILIRUBIN,TOTAL 0.5 mg/dL (0.2-1); TOT PROT 7.5 g/dl (6.4-8.2)
[2023-10-05 12:25] VITALS: TEMP 98.2
[2023-10-05 15:16] VITALS: BP 150/61; PULSE 64
[2023-10-05] MEDS: WARFARIN NA 5 MG TABLET PO ONE (15:38)
== END 2023-10-05 16:16 | disposition home or self-care (01) | DRG 948 ==
LOC: FER 14:15 → FM/S 18:31 → UNDOADMOB 18:31 → FM/S 20:00 → J7W 09-29 18:58 → OBSVTOIN 10-02 10:08
PROVIDERS: ADMIT Family Medicine; ATTEND Family Medicine
PROC: 0DB78ZX Excision of Stomach, Pylorus, Via Natural or Artificial Opening Endoscopic, Diagnostic (ICD-10-PCS; 2023-10-04)
PROC: 0DBN8ZZ Excision of Sigmoid Colon, Via Natural or Artificial Opening Endoscopic (ICD-10-PCS; principal; 2023-10-04 10:45)
DX: R79.1 Abnormal coagulation profile (principal); I50.32 Chronic diastolic (congestive) heart failure; I25.10 Atherosclerotic heart disease of native coronary artery without angina pectoris; I11.0 Hypertensive heart disease with heart failure; E78.5 Hyperlipidemia, unspecified; J44.9 Chronic obstructive pulmonary disease, unspecified; I48.0 Paroxysmal atrial fibrillation; J45.909 Unspecified asthma, uncomplicated; E11.43 Type 2 diabetes mellitus with diabetic autonomic (poly)neuropathy; K57.90 Diverticulosis of intestine, part unspecified, without perforation or abscess without bleeding; D64.9 Anemia, unspecified; R26.81 Unsteadiness on feet; G20.A1 Parkinson's disease without dyskinesia, without mention of fluctuations; K64.8 Other hemorrhoids; M48.00 Spinal stenosis, site unspecified; E66.9 Obesity, unspecified; Z68.30 Body mass index [BMI] 30.0-30.9, adult; M54.50 Low back pain, unspecified; G47.33 Obstructive sleep apnea (adult) (pediatric); Z86.73 Personal history of transient ischemic attack (TIA), and cerebral infarction without residual deficits; Z95.5 Presence of coronary angioplasty implant and graft; Z99.81 Dependence on supplemental oxygen; Z95.2 Presence of prosthetic heart valve; K29.70 Gastritis, unspecified, without bleeding
CPT/HCPCS: 0241U-QW; 36415; 71046-TC-FY; 80048; 80053; 81003; 82272; 82728; 82784; 82962; 83516; 83540; 83550; 83690; 83735; 84484; 85025; 85027; 85045; 85610; 85730; 86850; 86900; 86901; 87081; 87086; 88305-TC; 93005; 97116-GP; 97162-GP; 99285-25; G0378

== ENCOUNTER 2024-01-11 14:12 | Inpatient (IN) | payer MEDICARE, OTHER ==
[2024-01-11 15:47] LABS: EPI CELLS 1 /uL (0-25.1); HYALINE CASTS 0 /uL (0-3.1); URINE APPEARANCE CLEAR; URINE BACTERIA 9 /uL (0-1359); URINE BILIRUBIN NEGATIVE (NEGATIVE); URINE COLOR YELLOW; URINE GLUCOSE (UA) NEGATIVE (NEGATIVE); URINE KETONE NEGATIVE (NEGATIVE); URINE LEUK ESTERASE 3+ (NEGATIVE); URINE NITRITE NEGATIVE (NEGATIVE); URINE PROTEIN NEGATIVE (NEGATIVE); URINE RBC 16 /uL (0-23.9); URINE UROBILINOGEN 0.2 mg/dL (0.2-1.0); URINE WBC 528 /uL (0-25.8)
[2024-01-11 16:26] LABS: BASO % 1.4 % (0-2.0); EOS % 2.7 % (0-4.5); HEMATOCRIT 31.5 % (32.4-45.2); HEMOGLOBIN 10.3 GM/dL (10.7-15.3); LYMPH % 18.4 % (8-40); MCH 29.3 pg (25.7-33.7); MCHC 32.7 g/dl (32.0-36.0); MEAN CELL VOLUME 89.6 fl (80-96); MEAN PLT VOLUME 9.1 fl (7.5-11.1); MONO % 8.7 % (3.8-10.2); NEUT % 68.8 % (42.8-82.8); PLATELET COUNT 284 10^3/uL (134-434); RBC 3.52 M/mm3 (3.60-5.2); RDW 14.1 % (11.6-15.6); WHITE BLOOD COUNT 10.3 K/mm3 (4.0-10.0)
[2024-01-11 16:33] LABS: INR 3.47 (0.83-1.09); PROTHROMBIN TIME (PATIENT) 38.5 SEC (9.7-13.0)
[2024-01-11 16:36] LABS: ACTIVATED PTT 62.4 SECONDS (25.2-36.5)
[2024-01-11 17:00] LABS: CALCIUM 8.9 mg/dL (8.5-10.1); POTASSIUM 3.9 mmol/L (3.5-5.1)
[2024-01-11 17:03] LABS: ALBUMIN 3.7 g/dl (3.4-5.0); BLOOD UREA NITROGEN 35.2 mg/dL (7-18); MAGNESIUM 2.3 mg/dL (1.8-2.4)
[2024-01-11 17:08] LABS: BILIRUBIN,TOTAL 0.3 mg/dL (0.2-1); CREATININE 1.9 mg/dL (0.55-1.3); N-TERMINAL BNP 251.6 pg/ml (5-125); TOT PROT 7.1 g/dl (6.4-8.2)
[2024-01-11] MEDS: PIPERACILLIN/TAZOB 4.5 GM 4.5 GM in DEXTROSE 5%-WATER 100 ML IVPB SCH (19:09)
[2024-01-11 19:52] LABS: HIV INTERPRETATION NEGATIVE (NEGATIVE)
[2024-01-11] MEDS ORDERED: DOCUSATE SODIUM 100 MG CAPSULE (FP) PO PRN (21:23)
[2024-01-11] MEDS: INSULIN ASPART SLIDING SCALE (NOVOLOG) 1 VIAL SQ SCH (22:26)
[2024-01-11] MEDS ORDERED: ACETAMINOPHEN INJECTION 100 ML ONE (22:38)
[2024-01-11] MEDS: ACETAMINOPHEN 1000 MG/100 ML BAG IVPB PRN (22:44)
[2024-01-12 06:47] LABS: INR 2.74 (0.83-1.09); PROTHROMBIN TIME (PATIENT) 30.6 SEC (9.7-13.0)
[2024-01-12] MEDS ORDERED: CHOLESTYRAMINE/SUCROSE 4 GM PACKET PO PRN (06:49)
[2024-01-12] MEDS ORDERED: MELATONIN 5 MG TABLETS PO PRN (06:49)
[2024-01-12 07:19] LABS: BASO % 0.6 % (0-2.0); EOS % 2.5 % (0-4.5); HEMATOCRIT 32.3 % (32.4-45.2); HEMOGLOBIN 10.5 GM/dL (10.7-15.3); LYMPH % 26.6 % (8-40); MCH 29.6 pg (25.7-33.7); MCHC 32.6 g/dl (32.0-36.0); MEAN CELL VOLUME 90.8 fl (80-96); MEAN PLT VOLUME 8.7 fl (7.5-11.1); MONO % 10.9 % (3.8-10.2); NEUT % 59.4 % (42.8-82.8); PLATELET COUNT 258 10^3/uL (134-434); RBC 3.56 M/mm3 (3.60-5.2); WHITE BLOOD COUNT 8.1 K/mm3 (4.0-10.0)
[2024-01-12] MEDS ORDERED: CARBIDOPA/LEVODOPA 25/100 TABLET (FP) ONE (07:21)
[2024-01-12 07:22] LABS: BLOOD UREA NITROGEN 32.5 mg/dL (7-18); POTASSIUM 3.9 mmol/L (3.5-5.1)
[2024-01-12 07:23] LABS: CALCIUM 8.9 mg/dL (8.5-10.1)
[2024-01-12] MEDS: PATIENT'S OWN MEDICATION (NON-FORMULARY) (Carbidopa/Levodopa [Carbidopa-Levodopa 10-100 Ta PO SCH (07:25)
[2024-01-12 07:26] LABS: CREATININE 1.8 mg/dL (0.55-1.3)
[2024-01-12] MEDS: methylPREDNISolone NA SUCC 40 MG/1 ML VIAL IVPUSH ONE (07:30)
[2024-01-12] MEDS: AMMONIUM LACTATE 12% LOTION 225 GM BOTTLE TP SCH (07:39)
[2024-01-12] MEDS ORDERED: PIPERACILLIN/TAZOB 3.375 GM 3.375 GM/50 ML BAG IVPB ONE (07:54)
[2024-01-12] MEDS ORDERED: ALBUTEROL SO4 2.5/IPRATROPIUM 0.5 INH SOL 3 ML VIAL.NEB. NEB ONE ×2 (07:55→12:32)
[2024-01-12] MEDS: ALBUTEROL SO4 2.5/IPRATROPIUM 0.5 INH SOL 3 ML VIAL.NEB. NEB SCH (08:00)
[2024-01-12] MEDS: PIPERACILLIN/TAZOB 3.375 GM 3.375 GM in DEXTROSE 5%-WATER - 50 ML IVPB SCH ×2 (08:00→18:41)
[2024-01-12] MEDS: BUDESONIDE 0.5 MG/2 ML INH SUSP VIAL NEB SCH (09:19)
[2024-01-12] MEDS: VERAPAMIL HCL 240 MG E.R. TABLET PO SCH (11:25)
[2024-01-12] MEDS: FERROUS SO4 325 MG TABLET (FP) PO SCH (11:26)
[2024-01-12] MEDS: guaiFENesin/D-METHORPHAN TAB.ER.12H PO SCH (11:26)
[2024-01-12] MEDS: TORSEMIDE 100 MG TABLET PO SCH (11:26)
[2024-01-12] MEDS: TOPIRAMATE 100 MG TABLET PO SCH ×2 (11:55→23:32)
[2024-01-12] MEDS ORDERED: ACETAMINOPHEN INJECTION 100 ML ONE (12:23)
[2024-01-12] MEDS ORDERED: INSULIN ASPART SLIDING SCALE (NOVOLOG) 1 VIAL SQ ONE (12:32)
[2024-01-12] MEDS: PANTOPRAZOLE 20 MG TABLET PO SCH (13:08)
[2024-01-12] MEDS: CITALOPRAM HYDROBROMIDE 10 MG TABLET PO SCH (13:08)
[2024-01-12] MEDS ORDERED: DIGOXIN 0.125 MG TABLET ONE (13:10)
[2024-01-12] MEDS ORDERED: FERROUS SO4 325 MG TABLET (FP) ONE (13:11)
[2024-01-12] MEDS: DIGOXIN 0.125 MG TABLET PO SCH (13:32)
[2024-01-12] MEDS: methylPREDNISolone NA SUCC 40 MG/1 ML VIAL IVPUSH SCH (18:09)
[2024-01-12] MEDS: SODIUM CHLORIDE 0.45% 1,000 ML IV SCH ×2 (18:29→18:40)
[2024-01-12] MEDS ORDERED: ACETAMINOPHEN 325 MG TABLET (FP) PO PRN (21:23)
[2024-01-12] MEDS: WARFARIN NA 10 MG TABLET PO SCH (21:50)
[2024-01-12] MEDS: CARBIDOPA/LEVODOPA 10/100 TABLET (FP) PO SCH (21:52)
[2024-01-12] MEDS: ATORVASTATIN CA 10 MG TABLET (FP) PO SCH (22:42)
[2024-01-13] MEDS ORDERED: INSULIN ASPART SLIDING SCALE (NOVOLOG) 1 VIAL SQ ONE (06:53)
[2024-01-14] MEDS: PATIENT'S OWN MEDICATION (NON-FORMULARY) (Galcanezumab-Gnlm [Emgality Pen] 120 MG/ML Pen.I SQ ONE (10:44)
[2024-01-14 13:14] LABS: HEMOGLOBIN 10.3 GM/dL (10.7-15.3); MCH 28.8 pg (25.7-33.7); MCHC 32.3 g/dl (32.0-36.0); MEAN CELL VOLUME 89.2 fl (80-96); MEAN PLT VOLUME 9.4 fl (7.5-11.1); PLATELET COUNT 316 10^3/uL (134-434); RBC 3.58 M/mm3 (3.60-5.2); RDW 14.5 % (11.6-15.6); WHITE BLOOD COUNT 20.1 K/mm3 (4.0-10.0)
[2024-01-14 13:38] LABS: POTASSIUM 3.9 mmol/L (3.5-5.1)
[2024-01-14 13:40] LABS: ALBUMIN 3.6 g/dl (3.4-5.0); CALCIUM 9.5 mg/dL (8.5-10.1)
[2024-01-14 13:44] LABS: BLOOD UREA NITROGEN 62.8 mg/dL (7-18); CREATININE 2.6 mg/dL (0.55-1.3)
[2024-01-14 13:45] LABS: BILIRUBIN,TOTAL 0.2 mg/dL (0.2-1); TOT PROT 7.2 g/dl (6.4-8.2)
[2024-01-14 13:48] LABS: N-TERMINAL BNP 3642.4 pg/ml (5-125)
[2024-01-14 13:50] LABS: ANISOCYTOSIS 0; HELMET CELLS 0; HOWELL-JOLLY BODIES 0; MACROCYTOSIS 0; OVALOCYTE 0; ROULEAU 0; SICKELED CELLS 0; TARGET CELLS 0; TEAR DROP CELLS 0; TOXIC GRANULATION 0
[2024-01-14] MEDS: AZITHROMYCIN IVPB 500 MG/250 ML BAG IVPB SCH (13:50)
[2024-01-14] MEDS: FUROSEMIDE 40 MG/4 ML INJECTABLE VIAL IVPUSH ONE (13:51)
[2024-01-14 14:29] LABS: ARTERIAL BLOOD GAS BASE EXCESS -4.9 mmol/L (-2-2); ARTERIAL BLOOD GAS PO2 55.3 mmHg (80-100); ARTERIAL BLOOD GAS pH 7.361 (7.350-7.450)
[2024-01-14 14:30] LABS: ALLENS TEST POSITIVE
[2024-01-14] MEDS: CEFTRIAXONE 1 G/50 ML PREMIX 50 ML IVPB SCH (15:09)
[2024-01-14] MEDS: PIPERACILLIN/TAZOB 2.25 GM 2.25 GM/50 ML BAG IVPB SCH (17:24)
[2024-01-14 17:27] LABS: INR 3.33 (0.83-1.09); PROTHROMBIN TIME (PATIENT) 36.3 SEC (9.7-13.0)
[2024-01-14] MEDS ORDERED: ACETAMINOPHEN 325 MG TABLET (FP) PO PRN (18:45)
[2024-01-14] MEDS ORDERED: DOCUSATE SODIUM 100 MG CAPSULE (FP) PO PRN (18:45)
[2024-01-14] MEDS ORDERED: CHOLESTYRAMINE/SUCROSE 4 GM PACKET PO PRN (18:45)
[2024-01-14] MEDS: WARFARIN NA 5 MG TABLET PO ONE (19:10)
[2024-01-14] MEDS: WARFARIN NA PO ONE (19:13)
[2024-01-14] MEDS: AMMONIUM LACTATE 12% LOTION 225 GM BOTTLE TP SCH (19:48)
[2024-01-14] MEDS: ALBUTEROL SO4 2.5/IPRATROPIUM 0.5 INH SOL 3 ML VIAL.NEB. NEB SCH (20:19)
[2024-01-14] MEDS: BUDESONIDE 0.5 MG/2 ML INH SUSP VIAL NEB SCH (20:20)
[2024-01-14] MEDS: MELATONIN 5 MG TABLETS PO PRN (21:30)
[2024-01-14] MEDS: ATORVASTATIN CA 10 MG TABLET (FP) PO SCH (21:31)
[2024-01-14] MEDS: guaiFENesin/D-METHORPHAN TAB.ER.12H PO SCH (21:32)
[2024-01-14] MEDS: INSULIN ASPART SLIDING SCALE (NOVOLOG) 1 VIAL SQ SCH (21:36)
[2024-01-14] MEDS: CARBIDOPA/LEVODOPA 10/100 TABLET (FP) PO SCH (21:42)
[2024-01-14] MEDS ORDERED: TOPIRAMATE 100 MG TABLET PO SCH (22:00)
[2024-01-15] MEDS: methylPREDNISolone NA SUCC 40 MG/1 ML VIAL IVPUSH SCH (02:28)
[2024-01-15 06:24] LABS: ARTERIAL BLD GAS O2 SATURATION 97.8 % (95-98); ARTERIAL BLOOD GAS BASE EXCESS -2.2 mmol/L (-2-2); ARTERIAL BLOOD GAS PO2 107.6 mmHg (80-100); ARTERIAL BLOOD GAS pH 7.365 (7.350-7.450)
[2024-01-15 06:26] LABS: ALLENS TEST POSITIVE
[2024-01-15] MEDS: FUROSEMIDE 40 MG/4 ML INJECTABLE VIAL IVPUSH SCH (06:30)
[2024-01-15 07:58] LABS: HEMATOCRIT 30.6 % (32.4-45.2); HEMOGLOBIN 9.9 GM/dL (10.7-15.3); MCHC 32.3 g/dl (32.0-36.0); MEAN CELL VOLUME 89.8 fl (80-96); PLATELET COUNT 282 10^3/uL (134-434); RDW 14.2 % (11.6-15.6)
[2024-01-15 08:21] LABS: POTASSIUM 3.9 mmol/L (3.5-5.1)
[2024-01-15 08:26] LABS: ALBUMIN 3.6 g/dl (3.4-5.0); BLOOD UREA NITROGEN 70.4 mg/dL (7-18)
[2024-01-15 08:29] LABS: CREATININE 2.6 mg/dL (0.55-1.3)
[2024-01-15 08:30] LABS: BILIRUBIN,TOTAL 0.4 mg/dL (0.2-1)
[2024-01-15 09:08] LABS: ANISOCYTOSIS 0; HELMET CELLS 0; HOWELL-JOLLY BODIES 0; MACROCYTOSIS 0; OVALOCYTE 0; ROULEAU 0; SICKELED CELLS 0; TARGET CELLS 0; TEAR DROP CELLS 0; TOXIC GRANULATION 0
[2024-01-15] MEDS ORDERED: FLUTICASONE/UMECLIDIN/VILANTER(200-62.5-25 TRELEGY ELLIPTA) INAHLER IH SCH (10:00)
[2024-01-15] MEDS: VERAPAMIL HCL 240 MG E.R. TABLET PO SCH (10:17)
[2024-01-15] MEDS: DIGOXIN 0.125 MG TABLET PO SCH (10:18)
[2024-01-15] MEDS: PANTOPRAZOLE 20 MG TABLET PO SCH (10:18)
[2024-01-15] MEDS: FERROUS SO4 325 MG TABLET (FP) PO SCH (10:18)
[2024-01-15] MEDS: CITALOPRAM HYDROBROMIDE 10 MG TABLET PO SCH (10:19)
[2024-01-15] MEDS: AZITHROMYCIN IVPB 500 MG/250 ML BAG IVPB SCH (10:21)
[2024-01-15] MEDS ORDERED: ACETAMINOPHEN 1000 MG/100 ML BAG IVPB PRN (16:08)
[2024-01-15] MEDS ORDERED: WARFARIN NA 5 MG TABLET PO SCH (18:00)
[2024-01-15] MEDS: WARFARIN NA 5 MG TABLET PO SCH (21:51)
[2024-01-15 22:04] LABS: PROTHROMBIN TIME (PATIENT) 46.4 SEC (9.7-13.0)
[2024-01-15 22:12] LABS: INR 4.21 (0.83-1.09)
[2024-01-16 08:38] LABS: BASO % 0.1 % (0-2.0); HEMOGLOBIN 10.3 GM/dL (10.7-15.3); LYMPH % 6.2 % (8-40); MCHC 32.3 g/dl (32.0-36.0); MEAN CELL VOLUME 89.8 fl (80-96); MONO % 3.7 % (3.8-10.2); PLATELET COUNT 248 10^3/uL (134-434); RBC 3.57 M/mm3 (3.60-5.2); RDW 14.5 % (11.6-15.6); WHITE BLOOD COUNT 10.1 K/mm3 (4.0-10.0)
[2024-01-16 08:43] LABS: INR 3.87 (0.83-1.09)
[2024-01-16 09:06] LABS: POTASSIUM 4.2 mmol/L (3.5-5.1)
[2024-01-16 09:16] LABS: ALBUMIN 3.5 g/dl (3.4-5.0); BLOOD UREA NITROGEN 76.1 mg/dL (7-18); CALCIUM 9.5 mg/dL (8.5-10.1)
[2024-01-16 09:19] LABS: CREATININE 2.4 mg/dL (0.55-1.3)
[2024-01-16 09:21] LABS: BILIRUBIN,TOTAL 0.3 mg/dL (0.2-1); TOT PROT 6.9 g/dl (6.4-8.2)
[2024-01-16] MEDS ORDERED: WARFARIN NA 5 MG, WARFARIN NA 2 MG PO SCH (18:00)
[2024-01-16] MEDS ORDERED: PATIENT'S OWN MEDICATION (NON-FORMULARY) (Warfarin Sodium [Warfarin Sodium] 6 MG Tablet) PO SCH (18:00)
[2024-01-16] MEDS: WARFARIN NA 5 MG, WARFARIN NA 2 MG PO SCH (18:47)
[2024-01-16] MEDS: guaiFENesin/CODEINE 10 ML UNIT-DOSE CUPS PO PRN (22:13)
[2024-01-17 08:57] LABS: HEMATOCRIT 31.5 % (32.4-45.2); HEMOGLOBIN 10.3 GM/dL (10.7-15.3); LYMPH % 5.7 % (8-40); MCH 28.9 pg (25.7-33.7); MCHC 32.8 g/dl (32.0-36.0); MEAN CELL VOLUME 88.1 fl (80-96); MEAN PLT VOLUME 9.6 fl (7.5-11.1); MONO % 3.9 % (3.8-10.2); NEUT % 90.4 % (42.8-82.8); PLATELET COUNT 277 10^3/uL (134-434); RBC 3.57 M/mm3 (3.60-5.2); RDW 14.1 % (11.6-15.6); WHITE BLOOD COUNT 11.2 K/mm3 (4.0-10.0)
[2024-01-17 09:04] LABS: POTASSIUM 3.9 mmol/L (3.5-5.1)
[2024-01-17 09:07] LABS: ALBUMIN 3.4 g/dl (3.4-5.0); BLOOD UREA NITROGEN 78.4 mg/dL (7-18)
[2024-01-17 09:10] LABS: CREATININE 2.6 mg/dL (0.55-1.3)
[2024-01-17 09:11] LABS: BILIRUBIN,TOTAL 0.4 mg/dL (0.2-1)
[2024-01-17 09:12] LABS: TOT PROT 6.9 g/dl (6.4-8.2)
[2024-01-17] MEDS: FLUTICASONE/UMECLIDIN/VILANTER(200-62.5-25 TRELEGY ELLIPTA) INAHLER IH SCH (20:17)
[2024-01-17 20:55] LABS: INR 2.77 (0.83-1.09); PROTHROMBIN TIME (PATIENT) 30.9 SEC (9.7-13.0)
[2024-01-18 09:24] LABS: HEMATOCRIT 33.9 % (32.4-45.2); HEMOGLOBIN 10.9 GM/dL (10.7-15.3); INR 2.31 (0.83-1.09); MCH 28.9 pg (25.7-33.7); MCHC 32.3 g/dl (32.0-36.0); MEAN CELL VOLUME 89.5 fl (80-96); MEAN PLT VOLUME 9.9 fl (7.5-11.1); PLATELET COUNT 288 10^3/uL (134-434); PROTHROMBIN TIME (PATIENT) 25.5 SEC (9.7-13.0); RBC 3.79 M/mm3 (3.60-5.2); WHITE BLOOD COUNT 12.4 K/mm3 (4.0-10.0)
[2024-01-18 09:39] LABS: POTASSIUM 4.3 mmol/L (3.5-5.1)
[2024-01-18 09:46] LABS: ALBUMIN 3.5 g/dl (3.4-5.0); BLOOD UREA NITROGEN 72.4 mg/dL (7-18); CALCIUM 9.3 mg/dL (8.5-10.1)
[2024-01-18 09:49] LABS: CREATININE 2.3 mg/dL (0.55-1.3)
[2024-01-18 09:51] LABS: BILIRUBIN,TOTAL 0.4 mg/dL (0.2-1); TOT PROT 6.8 g/dl (6.4-8.2)
[2024-01-18 10:09] LABS: ANISOCYTOSIS 0; MACROCYTOSIS 0
[2024-01-18] MEDS: WARFARIN NA 10 MG TABLET PO SCH (22:47)
[2024-01-19] MEDS: VERAPAMIL HCL 180 MG E.R. TABLET PO SCH (09:15)
[2024-01-19] MEDS: INSULIN (NOVOLOG) ASPART 100 UNITS/ML 10ML VIAL SQ ONE (14:53)
[2024-01-19 15:08] LABS: INR 1.8 (0.83-1.09); PROTHROMBIN TIME (PATIENT) 20.4 SEC (9.7-13.0)
[2024-01-19] MEDS: ACETAMINOPHEN 1000 MG/100 ML BAG IVPB ONE (20:34)
[2024-01-20 07:00] LABS: INR 2.32 (0.83-1.09)
[2024-01-20 07:03] LABS: ACTIVATED PTT 30.6 SECONDS (25.2-36.5)
[2024-01-20 07:11] LABS: POTASSIUM 4.3 mmol/L (3.5-5.1)
[2024-01-20 07:14] LABS: CALCIUM 9.3 mg/dL (8.5-10.1)
[2024-01-20 07:15] LABS: ALBUMIN 3.1 g/dl (3.4-5.0); BLOOD UREA NITROGEN 63.4 mg/dL (7-18)
[2024-01-20 07:18] LABS: CREATININE 2.3 mg/dL (0.55-1.3)
[2024-01-20 07:20] LABS: BILIRUBIN,TOTAL 0.4 mg/dL (0.2-1); TOT PROT 6.2 g/dl (6.4-8.2)
[2024-01-20 07:38] LABS: HEMOGLOBIN 10.7 GM/dL (10.7-15.3); MCHC 32.4 g/dl (32.0-36.0); MEAN CELL VOLUME 89.3 fl (80-96); PLATELET COUNT 298 10^3/uL (134-434); RDW 13.9 % (11.6-15.6); WHITE BLOOD COUNT 17.8 K/mm3 (4.0-10.0)
[2024-01-20 07:39] LABS: MEAN PLT VOLUME 9.6 fl (7.5-11.1)
[2024-01-20 08:29] LABS: ANISOCYTOSIS 0; MACROCYTOSIS 0
[2024-01-21 08:00] LABS: HEMATOCRIT 31.9 % (32.4-45.2); HEMOGLOBIN 10.5 GM/dL (10.7-15.3); MCH 29.4 pg (25.7-33.7); MCHC 33.1 g/dl (32.0-36.0); MEAN CELL VOLUME 88.8 fl (80-96); MEAN PLT VOLUME 9.5 fl (7.5-11.1); PLATELET COUNT 288 10^3/uL (134-434); RBC 3.59 M/mm3 (3.60-5.2); WHITE BLOOD COUNT 16.6 K/mm3 (4.0-10.0)
[2024-01-21 08:06] LABS: POTASSIUM 4.7 mmol/L (3.5-5.1)
[2024-01-21 08:08] LABS: CALCIUM 8.6 mg/dL (8.5-10.1)
[2024-01-21 08:09] LABS: ALBUMIN 2.9 g/dl (3.4-5.0); BLOOD UREA NITROGEN 62.3 mg/dL (7-18)
[2024-01-21 08:12] LABS: CREATININE 2.1 mg/dL (0.55-1.3)
[2024-01-21 08:13] LABS: BILIRUBIN,TOTAL 0.3 mg/dL (0.2-1)
[2024-01-21 08:14] LABS: TOT PROT 5.8 g/dl (6.4-8.2)
[2024-01-21 09:24] LABS: ANISOCYTOSIS 0; MACROCYTOSIS 0
[2024-01-21] MEDS: predniSONE 10 MG TABLET (UD) PO SCH (10:07)
[2024-01-21] MEDS: TORSEMIDE 20 MG TABLET (FP) PO SCH (10:07)
[2024-01-21] MEDS: VERAPAMIL HCL 120 MG E.R. TABLET PO SCH (11:35)
[2024-01-21] MEDS: guaiFENesin/D-METHORPHAN HB 10 ML UNIT-DOSE CUPS PO PRN (14:26)
[2024-01-21] MEDS ORDERED: INSULIN ASPART SLIDING SCALE (NOVOLOG) 1 VIAL SQ ONE (21:30)
[2024-01-22] MEDS ORDERED: INSULIN ASPART SLIDING SCALE (NOVOLOG) 1 VIAL SQ ONE (06:15)
[2024-01-22 08:16] LABS: INR 3.38 (0.83-1.09); PROTHROMBIN TIME (PATIENT) 36.9 SEC (9.7-13.0)
[2024-01-22] MEDS: predniSONE 10 MG TABLET (UD) PO SCH (09:46)
[2024-01-22] MEDS: INSULIN (LEVEMIR) 100 UNITS/ML UNITS SQ SCH ×2 (09:59→21:43)
[2024-01-23 08:46] LABS: HEMATOCRIT 33.9 % (32.4-45.2); HEMOGLOBIN 11.2 GM/dL (10.7-15.3); MCH 29.2 pg (25.7-33.7); MEAN CELL VOLUME 88.4 fl (80-96); MEAN PLT VOLUME 9.3 fl (7.5-11.1); PLATELET COUNT 324 10^3/uL (134-434); RBC 3.84 M/mm3 (3.60-5.2); RDW 14.2 % (11.6-15.6); WHITE BLOOD COUNT 19.1 K/mm3 (4.0-10.0)
[2024-01-23 08:51] LABS: POTASSIUM 4.8 mmol/L (3.5-5.1)
[2024-01-23 08:55] LABS: BLOOD UREA NITROGEN 72.3 mg/dL (7-18); CALCIUM 9.2 mg/dL (8.5-10.1)
[2024-01-23 08:58] LABS: BILIRUBIN,TOTAL 0.4 mg/dL (0.2-1); CREATININE 2.2 mg/dL (0.55-1.3); INR 2.23 (0.83-1.09); PROTHROMBIN TIME (PATIENT) 25.1 SEC (9.7-13.0)
[2024-01-23] MEDS: TORSEMIDE 100 MG TABLET PO SCH (09:55)
[2024-01-23 10:02] LABS: ANISOCYTOSIS 0; HELMET CELLS 0; HOWELL-JOLLY BODIES 0; MACROCYTOSIS 0; OVALOCYTE 0; ROULEAU 0; SICKELED CELLS 0; TARGET CELLS 0; TEAR DROP CELLS 0; TOXIC GRANULATION 0
[2024-01-23] MEDS: INSULIN (LEVEMIR) 100 UNITS/ML UNITS SQ ONE (10:13)
[2024-01-23] MEDS: INSULIN (LEVEMIR) 100 UNITS/ML UNITS SQ SCH (21:37)
[2024-01-24] MEDS ORDERED: INSULIN ASPART SLIDING SCALE (NOVOLOG) 1 VIAL SQ ONE (06:49)
[2024-01-24] MEDS ORDERED: INSULIN (LEVEMIR) 100 UNITS/ML UNITS SQ ONE (06:49)
[2024-01-24 10:32] VITALS: RESP 18
[2024-01-25] MEDS: VERAPAMIL HCL 40 MG TABLET PO SCH (12:28)
[2024-01-25 13:54] VITALS: BP 134/51; TEMP 99
[2024-01-25 15:51] VITALS: PULSE 58
== END 2024-01-25 17:58 | DRG 291 ==
LOC: JER 14:12 → JERBED 20:21 → J7W 01-12 13:58 → J4W 01-14 16:54 → OBSVTOIN 01-15 10:04 → J4W 01-19 11:33
PROVIDERS: ADMIT Internal Medicine; ATTEND Family Medicine
DX: I13.0 Hypertensive heart and chronic kidney disease with heart failure and stage 1 through stage 4 chronic kidney disease, or unspecified chronic kidney disease (principal); I50.33 Acute on chronic diastolic (congestive) heart failure; J18.9 Pneumonia, unspecified organism; J96.01 Acute respiratory failure with hypoxia; N39.0 Urinary tract infection, site not specified; J44.1 Chronic obstructive pulmonary disease with (acute) exacerbation; N18.4 Chronic kidney disease, stage 4 (severe); J45.901 Unspecified asthma with (acute) exacerbation; J44.0 Chronic obstructive pulmonary disease with (acute) lower respiratory infection; N17.9 Acute kidney failure, unspecified; E11.9 Type 2 diabetes mellitus without complications; G20.A1 Parkinson's disease without dyskinesia, without mention of fluctuations; I48.0 Paroxysmal atrial fibrillation; E11.22 Type 2 diabetes mellitus with diabetic chronic kidney disease; E78.5 Hyperlipidemia, unspecified
CPT/HCPCS: 0241U-QW; 36415; 36600; 71045-TC-FY; 74176-TC; 76937; 80048; 80053; 80162; 81003; 82803; 82962; 83735; 83880; 84484; 85025; 85610; 85730; 86803; 86850; 86900; 86901; 87040; 87070; 87086; 87205; 87389; 87633; 87899; 93005; 93010; 93306-TC; 93308; 94640; 97116-GP; 97163-GP; 99285-25; G0378; J0131